=== PATIENT | male | born 1970 | race Caucasian/White ===

== ENCOUNTER → 2019-03-12 13:25 | Outpatient (CLI) | payer BC, SELFPAY | PROVIDERS: PCP Emergency Medicine; Visit Provider Physician Assistant | DX: R07.9 Chest pain, unspecified (principal); R00.0 Tachycardia, unspecified; R06.00 Dyspnea, unspecified; K21.9 Gastro-esophageal reflux disease without esophagitis; F10.10 Alcohol abuse, uncomplicated; F17.200 Nicotine dependence, unspecified, uncomplicated; Z82.49 Family history of ischemic heart disease and other diseases of the circulatory system; Z87.898 Personal history of other specified conditions | CPT/HCPCS: 93017 ==

== ENCOUNTER → 2019-03-22 12:57 | Outpatient (CLI) | payer BC, SELFPAY ==
[2019-03-22 13:00] LABS: MANUAL DIFFERENTIAL MANUAL DIFFERENTIAL (MANUAL DIFF)
[2019-03-22 13:38] LABS: Basophils % 0.6 % (0.1-2.0); Eosinophils # 0.2 K/mm3 (0.0-0.4); Eosinophils % 2.2 % (0.1-12.0); Hematocrit 46.1 % (42.0-52.0); Hemoglobin 15.2 g/dL (14.1-18.0); Lymphocytes # 1.5 K/mm3 (0.7-4.5); Lymphocytes % 20.1 % (10-50); Mean Corpuscular HGB Conc 32.9 g/dL (31.8-35.4); Mean Corpuscular Hemoglobin 32.7 pg (27.0-31.2); Mean Corpuscular Volume 99.6 fl (80-94); Monocytes # 0.8 K/mm3 (0.1-1.0); Monocytes % 10.1 % (1.7-9.3); Neutrophils # 5.1 K/mm3 (1.8-7.8); Platelet Count 278 K/mm3 (142-424); Red Blood Count 4.63 M/mm3 (4.60-6.20); Red Cell Distribution Width 12.2 % (11.5-17.5); White Blood Count 7.5 K/mm3 (4.8-10.8)
[2019-03-22 14:31] LABS: Eosinophils % 1 % (0-3); Lymphocytes % 21 % (10-50); Monocytes % 9 % (2-9); Neutrophils % 68 % (42-76); Total Cells Counted 100
[2019-03-22 14:34] LABS: Platelet Estimate Normal; RBC Morphology Normal
[2019-03-22 16:34] LABS: Alanine Aminotransferase 61 U/L (12-78); Albumin Level 3.8 gm/dL (3.4-5.0); Alkaline Phosphatase 83 U/L (46-116); Anion Gap 15.3 mEq/L (5-15); Aspartate Amino Transferase 63 U/L (15-37); Bilirubin,Direct 0.1 mg/dL (0.0-0.2); Bilirubin,Indirect 0.3 mg/dL (0.0-0.9); Bilirubin,Total 0.4 mg/dL (0.2-1.0); Blood Urea Nitrogen 6 mg/dL (7-18); Calcium 8.8 mg/dL (8.5-10.1); Carbon Dioxide 25 mmol/L (21.0-32.0); Chloride 97 mmol/L (98-107); Chol/HDL Ratio 4.3 (1-3.5); Cholesterol 264 mg/dL (140-200); Creatinine,Serum 0.81 mg/dL (0.70-1.30); Estimated Glomerular Filt Rate 103 ml/min (>60); Free Thyroxine Index 1.4 ug/dL (5.93-13.13); GFR (African American) 124 ML/MIN (>60); Glucose 80 mg/dL (74-106); HDL Cholesterol 62 mg/dL (27-67); LDL Cholesterol 174 mg/dL (0-130); Potassium 4.3 mmoL/L (3.5-5.1); Sodium 133 mmol/L (136-145); Thyroid Stimulating Hormone 5.85 uIU/ml (0.358-3.740); Total Protein,Serum 7.9 gm/dL (6.4-8.2); Triglycerides 141 mg/dL (30-200); Triiodothryronine (T3) Uptake 34 % (31-39); VLDL Cholesterol 28 mg/dL (0-40)
== END ==
PROVIDERS: Visit Provider Physician Assistant
DX: R06.00 Dyspnea, unspecified (principal); R07.9 Chest pain, unspecified; F10.10 Alcohol abuse, uncomplicated; R00.0 Tachycardia, unspecified; Z82.49 Family history of ischemic heart disease and other diseases of the circulatory system
CPT/HCPCS: 36415; 80048; 80061; 80076; 84436; 84443; 84479; 85007; 85014; 85018; 85048; 85049

== ENCOUNTER → 2019-04-13 06:30 | Outpatient (CLI) | payer BC, SELFPAY ==
--- NOTE | 2019-04-13 06:31 | NM_ITS ---
CARDIOLITE SPECT MYOCARDIAL PERFUSION LEXISCAN, REST AND STRESS: [facility] REVIEW QGS EF AND WALL MOTION EVALUATION: QPS - PERFUSION EVALUATION HISTORY: C.P., SOB DOSE: 10.52 mCi technetium 99m mibi intravenously at rest followed by 29.3 mCi technetium 99m mibi following the intravenous ministration of 0.4 mg of Lexiscan. Resting blood pressure is 153/95. Stress blood pressure 176/98. FINDINGS: Ejection fraction is calculated to be 68%. Uniform myocardial activity at both stress and rest IMPRESSION: No scintigraphic evidence of Lexiscan as myocardial ischemia with normal ejection fraction normal wall motion
--- NOTE | 2019-04-13 06:31 | CA_ITS ---
PROCEDURE: 2-D M-mode and color Doppler study INDICATIONS FOR THE TEST: Chest pain X COPD Heart Murmur Tobacco SmokingX Palpitations Fatigue Syncope Edema Hypertension Diabetes Mellitus Rheumatic Fever SOBXDOEXObesity Hyperlipidemia Family History HD Additional History ETOH ABUSE,HX OF DRUG ABUSE PATIENT INFORMATION HEIGHT: 72 WEIGHT:211 GENDER: Male B/P:129/89 2-D/M-MODE INTERPRETATION: 2-D MEASUREMENTS OBSERVED VALUES IN CMS Right Ventricular Dimension (RVDd) 2.6 Interventricular Septum (Thickness)(IVsd) 1.1 Left Ventricular Internal Dimensions(LVIDd) 4.8 Left Ventricular Posterior Wall (Thickness)(LVPWd) 1.2 Aortic Root 3.0 Aortic Cusp Separation 2.2 Left Atrial Dimensions (LAD) 3.6 2D 1. Left atrium is qualitatively mildly enlarged, left ventricle is normal size, mild concentric left ventricular hypertrophy, visually estimated ejection fraction of 55% with no regional wall motion abnormality. 2. The right atrium and right ventricle are normal size and contractility. 3. The aortic, mitral and tricuspid valvular grossly normal. 4. The pulmonic valve is poorly present. 5. No significant pericardial effusion noted. DOPPLER INTERROGATION: Doppler interrogation of the aortic, mitral and tricuspid valvular presence of mild mitral and tricuspid regurgitation, tricuspid regurgitation jet velocity is inadequate for calculation of the right ventricular systolic pressure, grade 1 diastolic dysfunction seen without tissue Doppler evidence of raised left atrial pressure. CONCLUSION: 1. The left atrium, normal left ventricular size, mild concentric left ventricular hypertrophy, visually estimated ejection fraction 55% with no regional wall motion abnormality. Grade 1 diastolic dysfunction seen without tissue Doppler evidence of raised left atrial pressure. 2. Mild mitral and tricuspid regurgitation 3. No significant pericardial effusion noted.
== END ==
PROVIDERS: PCP Emergency Medicine; Visit Provider Internal Medicine Cardiovascular Disease
DX: R06.00 Dyspnea, unspecified (principal); R07.9 Chest pain, unspecified
CPT/HCPCS: 78452; 93017; 93306; A9502; J2785

== ENCOUNTER → 2019-06-22 09:24 | Outpatient (CLI) | payer BC, SELFPAY ==
[2019-06-22 10:39] LABS: Basophils % 0.7 % (0.1-2.0); Eosinophils # 0.1 K/mm3 (0.0-0.4); Eosinophils % 2.4 % (0.1-12.0); Hematocrit 46.6 % (42.0-52.0); Hemoglobin 14.6 g/dL (14.1-18.0); Lymphocytes # 2.3 K/mm3 (0.7-4.5); Lymphocytes % 38.5 % (10-50); Mean Corpuscular HGB Conc 31.3 g/dL (31.8-35.4); Mean Corpuscular Hemoglobin 30.5 pg (27.0-31.2); Mean Corpuscular Volume 97.5 fl (80-94); Monocytes # 0.7 K/mm3 (0.1-1.0); Neutrophils # 2.8 K/mm3 (1.8-7.8); Neutrophils % 47.4 % (37.0-80.0); Platelet Count 277 K/mm3 (142-424); Red Blood Count 4.77 M/mm3 (4.60-6.20); Red Cell Distribution Width 12.6 % (11.5-17.5); White Blood Count 5.9 K/mm3 (4.8-10.8)
[2019-06-22 11:01] LABS: Alanine Aminotransferase 124 U/L (12-78); Albumin Level 3.6 gm/dL (3.4-5.0); Albumin/Globulin Ratio 0.9 (1.1-1.8); Alkaline Phosphatase 91 U/L (46-116); Anion Gap 14.6 mEq/L (5-15); Bilirubin,Total 0.4 mg/dL (0.2-1.0); Blood Urea Nitrogen 4 mg/dL (7-18); Calcium 9.2 mg/dL (8.5-10.1); Carbon Dioxide 27 mmol/L (21.0-32.0); Chloride 98 mmol/L (98-107); Chol/HDL Ratio 2.9 (1-3.5); Cholesterol 207 mg/dL (140-200); Creatinine,Serum 0.67 mg/dL (0.70-1.30); Estimated Glomerular Filt Rate 128 ml/min (>60); GFR (African American) 155 ML/MIN (>60); Glucose 86 mg/dL (74-106); HDL Cholesterol 71 mg/dL (27-67); LDL Cholesterol 106 mg/dL (0-130); Sodium 135 mmol/L (136-145); T4 (Thyroxine) 6.4 ug/dl (4.7-13.3); Thyroid Stimulating Hormone 4.52 uIU/ml (0.358-3.740); Total Protein,Serum 7.6 gm/dL (6.4-8.2); Triglycerides 151 mg/dL (30-200); VLDL Cholesterol 30 mg/dL (0-40)
[2019-06-22 11:05] LABS: Aspartate Amino Transferase 140 U/L (15-37); Potassium 4.6 mmoL/L (3.5-5.1)
== END ==
PROVIDERS: Visit Provider Nurse Practitioner Family
DX: R00.0 Tachycardia, unspecified (principal); E78.5 Hyperlipidemia, unspecified
CPT/HCPCS: 36415; 80053; 80061; 84436; 84443; 85025

== ENCOUNTER → 2019-08-03 10:46 | Outpatient (CLI) | payer BC, SELFPAY ==
[2019-08-04 08:12] LABS: Hep A Ab, IgM Negative (Negative); Hepatitis B Core Antibody IgM Negative (Negative); Hepatitis B Surface Antigen Negative (Negative)
[2019-08-06 14:23] LABS: Hepatitis C Antibody <0.1 s/co ratio (0.0-0.9)
== END ==
PROVIDERS: Visit Provider Nurse Practitioner Family
DX: R79.89 Other specified abnormal findings of blood chemistry (principal); R94.5 Abnormal results of liver function studies
CPT/HCPCS: 36415; 80074; 84443

== ENCOUNTER → 2021-08-27 09:41 | Outpatient (CLI) | payer BC, SELFPAY ==
[2021-08-27 10:13] LABS: Basophils % 0.7 % (0.1-2.0); Eosinophils # 0.3 K/mm3 (0.0-0.4); Eosinophils % 5.2 % (0.1-12.0); Hematocrit 44.9 % (42.0-52.0); Hemoglobin 14.4 g/dL (14.1-18.0); Lymphocytes # 1.5 K/mm3 (0.7-4.5); Lymphocytes % 28.2 % (10-50); Mean Corpuscular HGB Conc 32.1 g/dL (31.8-35.4); Mean Corpuscular Hemoglobin 33.5 pg (27.0-31.2); Mean Corpuscular Volume 104.2 fl (80-94); Mean Platelet Volume 8.6 fl (7.4-10.4); Monocytes # 0.4 K/mm3 (0.1-1.0); Monocytes % 7.1 % (1.7-9.3); Neutrophils # 3.1 K/mm3 (1.8-7.8); Neutrophils % 58.8 % (37.0-80.0); Platelet Count 280 K/mm3 (142-424); Red Blood Count 4.31 M/mm3 (4.60-6.20); Red Cell Distribution Width 12.5 % (11.5-17.5); White Blood Count 5.2 K/mm3 (4.8-10.8)
[2021-08-27 10:35] LABS: Alanine Aminotransferase 74 U/L (12-78); Albumin Level 4.5 g/dl (3.5-5.0); Albumin/Globulin Ratio 1.3 (1.1-1.8); Alkaline Phosphatase 85 U/L (38-126); Anion Gap 13.6 mEq/L (5-15); Aspartate Amino Transferase 189 U/L (17-59); Bilirubin,Total 0.9 mg/dl (0.2-1.3); Calcium 9.6 mg/dl (8.4-10.2); Carbon Dioxide 25 mmol/L (22.0-30.0); Chloride 100 mmol/L (98-107); Chol/HDL Ratio 2.3 (1-3.5); Cholesterol 216 mg/dl (140-200); Estimated Glomerular Filt Rate 144 ml/min (>60); GFR (African American) 174 ML/MIN (>60); Globulin 3.4 g/dL (1.3-3.2); Glucose 93 mg/dl (74-100); HDL Cholesterol 92 mg/dl (40-60); Potassium 4.6 mmoL/L (3.5-5.1); Sodium 134 mmol/L (136-145); Total Protein,Serum 7.9 g/dl (6.3-8.2); Triglycerides 102 mg/dl (30-150); VLDL Cholesterol 20 mg/dL (0-40)
[2021-08-27 10:40] LABS: Blood Urea Nitrogen < 2 mg/dl (9-20)
[2021-08-27 10:47] LABS: Direct LDL Cholesterol 99.67 mg/dL (100-129)
[2021-08-27 10:53] LABS: T4 (Thyroxine) 7.5 ug/dl (5.53-11.0)
[2021-08-27 11:07] LABS: Prostate Specific Ag Screen 0.7 ng/ml (0.0-4.0); Thyroid Stimulating Hormone 4.25 uIU/mL (0.465-4.68)
== END ==
PROVIDERS: Visit Provider Nurse Practitioner Family
DX: I10 Essential (primary) hypertension (principal); E78.5 Hyperlipidemia, unspecified; E03.9 Hypothyroidism, unspecified; F17.210 Nicotine dependence, cigarettes, uncomplicated; Z12.5 Encounter for screening for malignant neoplasm of prostate
CPT/HCPCS: 36415; 80053; 80061; 84436; 84443; 85025; 86900; 86901; G0103

== ENCOUNTER 2022-12-23 02:00 | Inpatient (IN) | payer BC, SELFPAY ==
[2022-12-23] VITALS (29 sets, daily range): BP systolic 114–160; BP diastolic 69–107; PULSE 73–128; RESP 19–49; TEMP 36.7–38.6; O2SAT 94–98; BMI 27.1; BMI 29.3
--- NOTE | 2022-12-23 02:08 | CT_ITS ---
PROCEDURE INFORMATION: Exam: CT Head Without Contrast Exam date and time: 12/23/2022 3:23 AM Age: 52 years old Clinical indication: Injury or trauma; Fall TECHNIQUE: Imaging protocol: Computed tomography of the head without contrast. Radiation optimization: All CT scans at this facility use at least one of these dose optimization techniques: automated exposure control; mA and/or kV adjustment per patient size (includes targeted exams where dose is matched to clinical indication); or iterative reconstruction. Other protocol: This patient has received 2 known CTs and 0 known cardiac nuclear medicine studies in the 12 months prior to the current study. COMPARISON: No relevant prior studies available. FINDINGS: Brain: There is mild enlargement of the cortical sulci compatible with compatible with involutional changes . No evidence of mass effect or midline shift. Patchy areas of hypodensity without mass-effect are noted in the periventricular white matter compatible with chronic microvascular ischemic disease. The chavez/white matter interfaces are preserved. There are no extra-axial fluid collections.The basal cisterns are patent. Cerebral ventricles: No hydrocephalus. Paranasal sinuses: Well aerated. No fluid levels. Mastoid air cells: Visualized mastoid air cells are well aerated. Bones/joints: No acute fracture. Soft tissues: Unremarkable. IMPRESSION: 1. No evidence of intracranial hemorrhage, mass effect, midline shift or hydrocephalus. 2. Involutional changes. 3. Findings compatible with chronic microvascular ischemic disease.
--- NOTE | 2022-12-23 02:08 | CT_ITS ---
PROCEDURE INFORMATION: Exam: CT Cervical Spine Without Contrast Exam date and time: 12/23/2022 3:23 AM Age: 52 years old Clinical indication: Injury or trauma; Fall; Blunt trauma TECHNIQUE: Imaging protocol: Computed tomography of the cervical spine without contrast. Radiation optimization: All CT scans at this facility use at least one of these dose optimization techniques: automated exposure control; mA and/or kV adjustment per patient size (includes targeted exams where dose is matched to clinical indication); or iterative reconstruction. Other protocol: This patient has received 2 known CTs and 0 known cardiac nuclear medicine studies in the 12 months prior to the current study. COMPARISON: No relevant prior studies available. FINDINGS: Bones/joints: No acute fracture. Normal alignment. No significant disc bulge or herniation. No severe spinal canal stenosis. No significant neural foraminal narrowing. Lungs: Lung apices are normal. Soft tissues: Unremarkable. IMPRESSION: No acute fractures or listhesis.
--- NOTE | 2022-12-23 02:08 | XR_ITS ---
PROCEDURE INFORMATION: Exam: XR Pelvis Exam date and time: 12/23/2022 3:28 AM Age: 52 years old Clinical indication: Injury or trauma; Fall; Blunt trauma (contusions or hematomas); Does not apply; Pelvic region TECHNIQUE: Imaging protocol: Radiologic exam of the pelvis. Views: 1 or 2 view. COMPARISON: No relevant prior studies available. FINDINGS: Bones/joints: Intact. No acute fractures or dislocations identified. There are no lytic or blastic lesions. The joints are preserved. Soft tissues: IV contrast within the right and left ureters IMPRESSION: No acute fracture or dislocation..
--- NOTE | 2022-12-23 02:08 | CT_ITS ---
PROCEDURE INFORMATION: Exam: CT Abdomen And Pelvis With Contrast Exam date and time: 12/23/2022 3:29 AM Age: 52 years old Clinical indication: Nausea and vomiting; Additional info: Vomitting TECHNIQUE: Imaging protocol: Computed tomography of the abdomen and pelvis with contrast. Radiation optimization: All CT scans at this facility use at least one of these dose optimization techniques: automated exposure control; mA and/or kV adjustment per patient size (includes targeted exams where dose is matched to clinical indication); or iterative reconstruction. Contrast material: ISOVUE; Contrast volume: 75 ml; Contrast route: IV; Other protocol: This patient has received 2 known CTs and 0 known cardiac nuclear medicine studies in the 12 months prior to the current study. COMPARISON: CR XR PELVIS 1-2V 12/23/2022 3:28 AM FINDINGS: Lungs: Granuloma at the right lung base. Heart: There is mild enlargement of the heart. Coronary arteries: There are coronary artery calcifications. Liver: Normal. No mass. Gallbladder and bile ducts: Normal. No calcified stones. No ductal dilation. Pancreas: Slightly indistinct appearance of portions of the pancreas with questionable trace peripancreatic fat stranding near the distal body and tail of the pancreas. Spleen: Normal. No splenomegaly. Adrenal glands: Normal. No mass. Kidneys and ureters: Normal. No hydronephrosis. Stomach and bowel: Fluid in the proximal colon. No wall thickening or obstruction. Appendix: The appendix is not seen. Intraperitoneal space: Unremarkable. No free air. No significant fluid collection. Vasculature: Unremarkable. No abdominal aortic aneurysm. Lymph nodes: Unremarkable. No enlarged lymph nodes. Urinary bladder: Unremarkable as visualized. Reproductive: Unremarkable as visualized. Bones/joints: Degenerative changes of the spine. Soft tissues: Unremarkable. IMPRESSION: 1. Findings suggesting subtle acute pancreatitis. Recommend clinical correlation and follow up. 2. Coronary artery disease.
--- NOTE | 2022-12-23 02:08 | XR_ITS ---
PROCEDURE INFORMATION: Exam: XR Chest Exam date and time: 12/23/2022 3:29 AM Age: 52 years old Clinical indication: Injury or trauma; Fall; Blunt trauma (contusions or hematomas) TECHNIQUE: Imaging protocol: Radiologic exam of the chest. Views: 1 view. COMPARISON: CT CERVICAL SPINE WO CON 12/23/2022 3:23 AM FINDINGS: Lungs: Well aerated with no evidence of consolidations, interstitial patterns or pulmonary nodules. Pleural spaces: No evidence of effusions or pneumothorax. Heart/Mediastinum: The cardiomediastinal silhouette is normal in size and configuration. There is no evidence of cardiomegaly. Bones/joints: Intact. IMPRESSION: 1. No acute discernible infarction identified. 2. Patchy areas of ground-glass opacity with a peripheral predominance scattered throughout both lungs compatible with multifocal pneumonia.
--- NOTE | 2022-12-23 02:25 | HMH.EDWEAK ---
Discharge Plan Disposition Patient Disposition: Admitted As Inpatient Clinical Impressions Clinical Impression: CAP (community acquired pneumonia), SIRS (systemic inflammatory response syndrome), Acute hyponatremia, Acute hypokalemia, Elevated liver enzymes, CAD (coronary artery disease) Discharge ED Provider: Manpreet (ED)Usman HPI General Chief complaint: Weakness Stated complaint: Weakness Time Seen by Provider: 12/23/22 02:25 Mode of Arrival: EMS Source of Information: Patient, Relative, EMS and Medical Record Limitations: No Limitations Description of Symptoms (Recalled from ER Triage Doc. by RN): pt states been having n/v/d sincec last tuesday. tonight pt states fell out of bed History of Present Illness HPI Narrative: pt has not felt well over the last few days - pt with vomiting and at times nonbldy diarrhea and has weakness and tonight fell oob and unable to stand and brought in by ems - pt denied chest pain and was noted to have fever per ems MD Complaint: generalized weakness Onset (ago): day(s) Duration: constant Location: generalized Migration: none Severity: moderate Context: recent illness Associated symptoms: nausea/vomiting Related Data Home Medications Medication Instructions Recorded Confirmed ibuprofen 200 mg capsule 200 mg PO Q6H PRN 03/02/19 10/02/21 famotidine 10 mg tablet (Pepcid AC) 10 mg PO DAILY PRN 11/17/20 10/02/21 Previous Rx's Medication Instructions Recorded atorvastatin 20 mg tablet 20 mg PO DAILY #90 tabs 01/06/22 metoprolol succinate 50 mg 50 mg PO DAILY #90 tabs 01/06/22 tablet,extended release 24 hr levothyroxine 50 mcg tablet See Rx Instructions .Route 10/15/22 .COMPLEX #90 tabs Allergies Allergy/AdvReac Type Severity Reaction Status Date / Time penicillin G Allergy Severe Anaphylaxis Verified 10/02/21 14:24 Fish Containing Products Allergy Mild Verified 10/02/21 14:24 PFSH PFS Disclaimer: The information contained in this section may have been updated after the patient was seen, as this information can be updated by other users. Medical History (Updated 12/23/22 @ 07:46 by Usman Case (ED), ) Abnormal cardiovascular stress test Dyspnea ETOH abuse Family history of ischemic heart disease before age 50 History of mixed drug abuse Tachycardia Tobacco dependence syndrome Surgical History (Updated 02/09/23 @ 05:28 by Clayton Palencia DNP) Hx of appendectomy Social History Smoking Status: Current every day smoker tobacco type: cigarettes packs per day: 2 alcohol intake: current substance use type: former substance user current occupational status: employed Travel in the last 8 weeks: None ROS Obtained: Yes unobtainable due to mental status Physical Exam General General appearance: lethargic Head Head exam: normocephalic Eye Eye exam: Present PERRL and EOMI; Absent scleral icterus ENT ENT exam: Present mucous membranes dry Neck Neck exam: Present trachea midline; Absent meningismus Respiratory Respiratory exam: Present other (dec bs bilat ); Absent respiratory distress Cardiovascular Cardiovascular exam: Present tachycardia and systolic murmur Abdominal Exam Abdominal exam: Present soft; Absent tenderness, guarding or rebound Extremities Exam Extremities exam: Absent joint swelling or calf tenderness Neurological Exam Neurological exam: Present CN II-XII intact and other (no focal changes and has tremor bilat w/o focal changes and no posturing ) Skin Skin exam: Absent rash Medical Decision Making Medical Records Medical records reviewed: Yes I reviewed the patient's medical records. Leroy Inquiry Pt receiving controlled substance: No Vital Signs: 12/23/22 02:00 12/23/22 02:30 12/23/22 03:30 Temperature 101.4 F H Temperature Source Oral Pulse Rate 124 H 106 H Pulse Rate [Right] 128 H Respiratory Rate 28 H Blood Pressure 145/92 H 160/88 H Blood Pressure [Right Arm] 145/92 H Blood P
[2022-12-23 02:30] LABS: Basophils % 0.1 % (0.1-2.0); Eosinophils % 0.1 % (0.1-12.0); Hematocrit 38.4 % (42.0-52.0); Hemoglobin 13.1 g/dL (14.1-18.0); Lymphocytes % 5.4 % (10-50); Mean Corpuscular Hemoglobin 32.1 pg (27.0-31.2); Mean Corpuscular Volume 94.6 fl (80-94); Mean Platelet Volume 8.3 fl (7.4-10.4); Monocytes # 1.2 K/mm3 (0.1-1.0); Monocytes % 6.2 % (1.7-9.3); Neutrophils # 16.2 K/mm3 (1.8-7.8); Neutrophils % 88.1 % (37.0-80.0); Platelet Count 257 K/mm3 (142-424); Red Blood Count 4.06 M/mm3 (4.60-6.20); Red Cell Distribution Width 12.1 % (11.5-17.5); White Blood Count 18.4 K/mm3 (4.8-10.8)
[2022-12-23 02:33] LABS: Alanine Aminotransferase 49 U/L (12-78); Albumin Level 4.8 g/dl (3.5-5.0); Albumin/Globulin Ratio 1.5 (1.1-1.8); Alkaline Phosphatase 102 U/L (38-126); Anion Gap 18.2 mEq/L (5-15); Aspartate Amino Transferase 173 U/L (17-59); Bilirubin,Total 1.7 mg/dl (0.2-1.3); Blood Urea Nitrogen 11 mg/dl (9-20); Calcium 8.6 mg/dl (8.4-10.2); Carbon Dioxide 20 mmol/L (22.0-30.0); Creatinine Clearance Estimated 113 mL/min (50-200); Estimated Glomerular Filt Rate 79 ml/min (>60); GFR (African American) 96 ML/MIN (>60); Globulin 3.3 g/dL (1.3-3.2); Glucose 82 mg/dl (74-100); Lactic Acid 1.9 mmol/L (0.7-2.1); MANUAL DIFFERENTIAL MANUAL DIFFERENTIAL (MANUAL DIFF); Potassium 3.2 mmoL/L (3.5-5.1); Total Protein,Serum 8.1 g/dl (6.3-8.2)
[2022-12-23 02:38] LABS: C-Reactive Protein 159.9 mg/L (0-4)
[2022-12-23 02:41] LABS: Chloride 75 mmol/L (98-107); Sodium 110 mmol/L (136-145)
--- NOTE | 2022-12-23 02:42 | PC.NURSE ---
notified rhonda of sodium 110 and 75 chloride
[2022-12-23 02:45] LABS: Coronavirus 19, PCR Not Detected (NotDetected); Influenza A, PCR Not Detected (NotDetected); Influenza B, PCR Not Detected (NotDetected)
[2022-12-23 03:09] LABS: Lymphocytes % 10 % (10-50); Neutrophils % 90 % (42-76); Total Cells Counted 100
[2022-12-23 03:10] LABS: Platelet Estimate Normal
[2022-12-23 03:11] LABS: Stomatocytes 1+
[2022-12-23 03:23] LABS: Alanine Aminotransferase 50 U/L (12-78); Albumin Level 4.2 g/dl (3.5-5.0); Albumin/Globulin Ratio 1.4 (1.1-1.8); Alkaline Phosphatase 86 U/L (38-126); Anion Gap 18.1 mEq/L (5-15); Aspartate Amino Transferase 217 U/L (17-59); Bilirubin,Total 1.7 mg/dl (0.2-1.3); Blood Urea Nitrogen 12 mg/dl (9-20); Calcium 7.7 mg/dl (8.4-10.2); Carbon Dioxide 18 mmol/L (22.0-30.0); Chloride 78 mmol/L (98-107); Creatinine Clearance Estimated 113 mL/min (50-200); Estimated Glomerular Filt Rate 79 ml/min (>60); GFR (African American) 96 ML/MIN (>60); Globulin 2.9 g/dL (1.3-3.2); Glucose 75 mg/dl (74-100); Potassium 3.1 mmoL/L (3.5-5.1); Total Protein,Serum 7.1 g/dl (6.3-8.2)
--- NOTE | 2022-12-23 04:03 | PC.NURSE ---
Pt continues to rest in bed. Family at BS.
[2022-12-23 04:11] LABS: Sodium 111 mmol/L (136-145)
[2022-12-23 04:40] LABS: Erythrocyte Sedimentation Rate 48 mm/hr (0-15)
--- NOTE | 2022-12-23 05:03 | PC.NURSE ---
SOMMER FROM NIGHT WATCH CALLED FOR VANC DOSING
--- NOTE | 2022-12-23 05:17 | EXP.HP ---
History of Present Illness *Admission Date: 12/23/22 *Reason for visit:: Fevers, chills, tremors, vomiting, cough *History of present illness: Mr. Perez is a 52-year-old male with a past medical history of Tachycardia, Hypothyroidism and Hyperlipidemia. He presents to [facility] due to a 4-day history of non-stop vomiting, cough, weakness, shaking and freezing. is at bedside who provides information for the history and physical. Per the patient has been ill since 12/19/2022. She reports that he has been unable to take any of his medications due to constant vomiting. She reports that he drinks approximately 18 beers every day. She denies a history of DT's, but she reports that she has never seen him not drink alcohol. She reports that he has attempted to continue drinking alcohol but has continued to vomit. She reports that he has progressively worsened, so she brought him into the ER for evaluation. In the ER, he has electrolyte disturbances: Sodium level is 110, K is 3.2. WBC is 18.4. CT of the abdomen and pelvis is concerning for Pancreatitis, CXray shows multi-focal consolidations. He was noted to have fallen during his acute illness and CT of the head and neck shows no acute findings. The patient meets criteria for Sepsis on admission with WBC 18.4, Temperature 101.4, Imaging concerning for Multifocal pneumonia, HR 128 and RR 49. The patient is tremulous on exam, has been slightly confused per family. There is concern for acute alcohol withdrawal. The patient has been placed on CIWA protocol. The patient is admitted with initial impression: Sepsis, Pneumonia, Acute Pancreatitis, Hyponatremia, Hypokalemia, Acute Alcohol Withdrawal. The plan of care was discussed with and son and patient at bedside. All verbalized understanding and agreement with the plan of care. [facility] Disclaimer: The information contained in this section may have been updated after the patient was seen, as this information can be updated by other users. Medical History Abnormal cardiovascular stress test Dyspnea ETOH abuse Family history of ischemic heart disease before age 50 History of mixed drug abuse Tachycardia Tobacco dependence syndrome Surgical History Hx of appendectomy Social History (Updated 12/23/22 @ 10:34 by Isela Schultz RN) Smoking Status: Current every day smoker tobacco type: cigarettes packs per day: 2 alcohol intake: current substance use type: former substance user current occupational status: employed Travel in the last 8 weeks: None Review of Systems Review of Systems Review of systems:: pertinent systems reviewed and negative unless documented below Constitutional Constitutional: Reports body ache(s), Reports chills, Reports fatigue, Reports fever(s), Reports lethargy and Reports malaise Eyes Eyes: Reports system reviewed and no additional complaints, except as documented ENT Ears, Nose, Mouth, and Throat: Reports system reviewed and no additional complaints, except as documented and Reports dizziness *Cardiovascular Cardiovascular: Reports system reviewed and no additional complaints, except as documented *Respiratory Respiratory: Reports chest congestion and Reports cough *Gastrointestinal Gastrointestinal: Reports vomiting *Genitourinary Genitourinary: Reports system reviewed and no additional complaints, except as documented *Musculoskeletal Musculoskeletal: Reports system reviewed and no additional complaints, except as documented Integumentary/Breasts Skin/Breast: Reports system reviewed and no additional complaints, except as documented *Neurologic Neurologic: Reports confusion and Reports dizziness Psychiatric Psychiatric: Reports confusion Endocrine Endocrine: Reports fatigue Hematologic/Lymphatic Hematologic/Lymphatic: Reports system reviewed and no addition
[2022-12-23 05:23] LABS: Procalcitonin 1.85 ng/mL (0.0-2.0)
[2022-12-23 05:33] LABS: Anion Gap 13.6 mEq/L (5-15); Blood Urea Nitrogen 12 mg/dl (9-20); Calcium 7.9 mg/dl (8.4-10.2); Carbon Dioxide 20 mmol/L (22.0-30.0); Chloride 79 mmol/L (98-107); Creatinine Clearance Estimated 126 mL/min (50-200); Estimated Glomerular Filt Rate 89 ml/min (>60); GFR (African American) 108 ML/MIN (>60); Glucose 108 mg/dl (74-100)
[2022-12-23 05:45] LABS: Potassium 2.6 mmoL/L (3.5-5.1); Sodium 110 mmol/L (136-145)
--- NOTE | 2022-12-23 06:53 | PC.NURSE ---
Pt readjusted in bed for comfort
--- NOTE | 2022-12-23 07:55 | HMH.PHAINT1 ---
Pharmacy Intervention Comments: Medication reconciliation completed utilizing external fill history
[2022-12-23 08:05] LABS: Chloride 83 mmol/L (98-107)
[2022-12-23 08:06] LABS: Potassium 3.2 mmoL/L (3.5-5.1)
[2022-12-23 08:09] LABS: Anion Gap 13.2 mEq/L (5-15); Blood Urea Nitrogen 11 mg/dl (9-20); Calcium 7.7 mg/dl (8.4-10.2); Carbon Dioxide 21 mmol/L (22.0-30.0); Creatinine Clearance Estimated 189 mL/min (50-200); Estimated Glomerular Filt Rate 143 ml/min (>60); GFR (African American) 173 ML/MIN (>60); Glucose 86 mg/dl (74-100)
[2022-12-23 08:12] LABS: Sodium 114 mmol/L (136-145)
--- NOTE | 2022-12-23 08:19 | PC.NURSE ---
Coretta from lab called critical on patient, Sodium 114, repeated and verified. Notified patient is admitted but boarding in ER and to notify Hospitalist.
--- NOTE | 2022-12-23 09:42 | PC.NURSE ---
Temperature rechecked per family request; 98.1 oral
--- NOTE | 2022-12-23 10:01 | EXP.PHA.CONS ---
Pharmacy Consult Date: 12/23/22 Time: 10:01 Referring provider: DR. AC Reason for Consult:: VANCOMYCIN DOSING Allergies Allergy/AdvReac Type Severity Reaction Status Date / Time penicillin G Allergy Severe Anaphylaxis Verified 10/02/21 14:24 Fish Containing Products Allergy Mild Verified 10/02/21 14:24 Home Medications Medication Instructions Recorded Confirmed Type atorvastatin 20 mg tablet 20 mg PO DAILY Cholesterol 12/23/22 12/23/22 History levothyroxine 50 mcg tablet 50 mcg PO DAILY thyroid 12/23/22 12/23/22 History metoprolol succinate 50 mg 50 mg PO DAILY High blood pressure 12/23/22 12/23/22 History tablet,extended release 24 hr New Prescriptions to Start Prescriptions: Height: 1.83 m Weight: 90.718 kg Laboratory Results:: Laboratory Results - last 24 hr 12/23/22 02:07: WBC 18.4 H, RBC 4.06 L, Hgb 13.1 L, Hct 38.4 L, MCV 94.6 H, MCH 32.1 H, MCHC 34.0, RDW 12.1, Plt Count 257, MPV 8.3, Neut % (Auto) 88.1 H, Lymph % (Auto) 5.4 L, Mchenry % (Auto) 6.2, Eos % (Auto) 0.1, Baso % (Auto) 0.1, Neut # (Auto) 16.2 H, Lymph # (Auto) 1.0, Mchenry # (Auto) 1.2 H, Eos # (Auto) 0.0, Baso # (Auto) 0.0, Total Counted 100, Neutrophils % (Manual) 90 H, Lymphocytes % (Manual) 10, Platelet Estimate Normal, Stomatocytes 1+, ESR 48 H 12/23/22 02:07: Sodium 110 L*, Potassium 3.2 L, Chloride 75 L, Carbon Dioxide 20 L, Anion Gap 18.2 H, BUN 11, Creatinine 1.00, Estimated Creat Clear 113, Estimated GFR 79, Est GFR ( Amer) 96, Glucose 82, Calcium 8.6, Total Bilirubin 1.7 H, AST 173 H, ALT 49, Alkaline Phosphatase 102, C-Reactive Protein 159.9 H, Total Protein 8.1, Albumin 4.8, Globulin 3.3 H, Albumin/Globulin Ratio 1.5 12/23/22 02:07: Lactate 1.9 12/23/22 02:34: SARS-CoV-2 (PCR) Not detected, Influenza A Untype (PCR) Not detected, Influenza Type B (PCR) Not detected 12/23/22 03:10: Sodium 111 L*, Potassium 3.1 L, Chloride 78 L, Carbon Dioxide 18 L, Anion Gap 18.1 H, BUN 12, Creatinine 1.00, Estimated Creat Clear 113, Estimated GFR 79, Est GFR ( Amer) 96, Glucose 75, Calcium 7.7 L, Total Bilirubin 1.7 H, AST 217 H D, ALT 50, Alkaline Phosphatase 86, Total Protein 7.1, Albumin 4.2 D, Globulin 2.9, Albumin/Globulin Ratio 1.4 12/23/22 03:10: Procalcitonin 1.85 12/23/22 05:16: Sodium 110 L*, Potassium 2.6 L*, Chloride 79 L, Carbon Dioxide 20 L, Anion Gap 13.6, BUN 12, Creatinine 0.90, Estimated Creat Clear 126, Estimated GFR 89, Est GFR ( Amer) 108, Glucose 108 H D, Calcium 7.9 L 12/23/22 05:16: Magnesium 2.0 12/23/22 07:45: Sodium 114 L*, Potassium 3.2 L D, Chloride 83 L, Carbon Dioxide 21 L, Anion Gap 13.2, BUN 11, Creatinine 0.60 L D, Estimated Creat Clear 189, Estimated GFR 143, Est GFR ( Amer) 173 D, Glucose 86 D, Calcium 7.7 L Medical History: Medical History (Updated 12/23/22 @ 07:46 by Usman Case (ED)MD) Abnormal cardiovascular stress test Dyspnea ETOH abuse Family history of ischemic heart disease before age 50 History of mixed drug abuse Tachycardia Tobacco dependence syndrome Assessment and Plan Assessment and plan all Dx Assessment and Plan for all problems:: Pharmacokinetic dosing service Objective: Patient: Floor: Age: 52 yo Serum creatinine: 0.60 mg/dL Height: 72.0 Inches Weight (kg): 90.7 Assessment: IBW (kg): 77.60 Dosing wt(kg): 90.7 Estimated Creatinine clearance (ml/min): 130 Clearance limited to 130 ml/min to reduce risk of overdosing. CRCL method: Cockcroft and Gault using ibw(default). Drug selected: Vancomycin Loading dose (mg): Vd (liters): 68.0 (factor used: 0.75 L/kg) Rogelio (hr-1): 0.112 Half life (hrs): 6.19 CLvanco=?? 7.616 L/hr Recommended dose: 2000 mg Interval: 12 hrs Infusion time (hrs): 2.0 Predicted peak (mcg/mL): 35.6 Predicted trough (mcg/mL): 11.62 Total body weight is being used for vancomycin dosing.
--- NOTE | 2022-12-23 10:27 | PC.NURSE ---
Pt cleaned up and re-adjusted in the bed with assistance from RENATO Gutierrez. Family at BS. Call light within reach
--- NOTE | 2022-12-23 10:30 | PC.NURSE ---
Rounded on patient and mother at this time. Patient was sleeping peacefully at this time. I updated mother on bed status for the floor and advised we working on facilitating his admission as quickly as possible. Mother agreeable. Provided her with recliner chair and warm blankets at this time. There were no other needs and she was instructed on use of call-light.
[2022-12-23 11:02] LABS: Anion Gap 13.3 mEq/L (5-15); Blood Urea Nitrogen 11 mg/dl (9-20); Calcium 7.7 mg/dl (8.4-10.2); Carbon Dioxide 20 mmol/L (22.0-30.0); Chloride 85 mmol/L (98-107); Creatinine Clearance Estimated 189 mL/min (50-200); Estimated Glomerular Filt Rate 143 ml/min (>60); GFR (African American) 173 ML/MIN (>60); Glucose 89 mg/dl (74-100); Potassium 3.3 mmoL/L (3.5-5.1)
--- NOTE | 2022-12-23 11:13 | PC.NURSE ---
Rounded on pt. Resting comfortably in the bed at this time. Vitals cycling. No questions or concerns at this time.
[2022-12-23 11:15] LABS: Sodium 115 mmol/L (136-145)
--- NOTE | 2022-12-23 11:27 | PC.NURSE ---
spoke with hospitalist who states he wants his medication order to remain the same based on labs
--- NOTE | 2022-12-23 12:00 | PC.NURSE ---
Nini-care completed d/t incontinent episode of stool.
--- NOTE | 2022-12-23 12:25 | PC.NURSE ---
report called to hortencia rashid
--- NOTE | 2022-12-23 12:35 | PC.NURSE ---
Dr. Holt, Hospitalist at speaking with patient and patients family
--- NOTE | 2022-12-23 12:50 | PC.NURSE ---
pt ambulatory to restroom with assistance x 2 (sharita and bharathi), no complications
--- NOTE | 2022-12-23 12:56 | PC.NURSE ---
pt returned from restroom back to bed without complications. Assisted by Gui Aguiar and Israel Wu. Family at
[2022-12-23 17:40] LABS: Blood Urea Nitrogen 9 mg/dl (9-20); Calcium 7.5 mg/dl (8.4-10.2); Carbon Dioxide 22 mmol/L (22.0-30.0); Chloride 89 mmol/L (98-107); Creatinine Clearance Estimated 245 mL/min (50-200); Estimated Glomerular Filt Rate 176 ml/min (>60); GFR (African American) 213 ML/MIN (>60); Glucose 77 mg/dl (74-100); Sodium 119 mmol/L (136-145)
--- NOTE | 2022-12-23 18:35 | EXP.PN ---
Subjective *Date: 12/23/22 *Time: 18:35 Interval history: Date of service December 23, 2022 The patient reports that he is starting to feel better. His Elicia and mother at bedside and reports that he is improving. Nursing staff reports that he remains afebrile with stable vital signs and saturating appropriately on room air. We have reviewed and discussed his laboratory results. I have personally interpreted his laboratory results including a CBC with a leukocytoses white blood cell count 18,000, hemoglobin 13, hematocrit 38, platelet count 257. His procalcitonin is elevated. His sodium continues to improve and is currently 114. His lactic acid is negative. His potassium is 3.2. His magnesium is 2.0 BUN is 11 and creatinine 0.6. His AST to ALT ratio is greater than 2.5. Imaging of his abdomen has been personally reviewed and interpreted identifying pancreatitis on the CT. Exam Data for Last 24 hours Vital signs and Labs for Last 24 Hours: Temp Pulse Resp BP Pulse Ox 98.4 F 87 20 130/83 98 12/23/22 15:27 12/23/22 12:36 12/23/22 12:36 12/23/22 12:36 12/23/22 12:00 Laboratory Results - last 24 hr 12/23/22 02:07: WBC 18.4 H, RBC 4.06 L, Hgb 13.1 L, Hct 38.4 L, MCV 94.6 H, MCH 32.1 H, MCHC 34.0, RDW 12.1, Plt Count 257, MPV 8.3, Neut % (Auto) 88.1 H, Lymph % (Auto) 5.4 L, [place] % (Auto) 6.2, Eos % (Auto) 0.1, Baso % (Auto) 0.1, Neut # (Auto) 16.2 H, Lymph # (Auto) 1.0, [place] # (Auto) 1.2 H, Eos # (Auto) 0.0, Baso # (Auto) 0.0, Total Counted 100, Neutrophils % (Manual) 90 H, Lymphocytes % (Manual) 10, Platelet Estimate Normal, Stomatocytes 1+, ESR 48 H 12/23/22 02:07: Sodium 110 L*, Potassium 3.2 L, Chloride 75 L, Carbon Dioxide 20 L, Anion Gap 18.2 H, BUN 11, Creatinine 1.00, Estimated Creat Clear 113, Estimated GFR 79, Est GFR ( Amer) 96, Glucose 82, Calcium 8.6, Total Bilirubin 1.7 H, AST 173 H, ALT 49, Alkaline Phosphatase 102, C-Reactive Protein 159.9 H, Total Protein 8.1, Albumin 4.8, Globulin 3.3 H, Albumin/Globulin Ratio 1.5 12/23/22 02:07: Lactate 1.9 12/23/22 02:34: SARS-CoV-2 (PCR) Not detected, Influenza A Untype (PCR) Not detected, Influenza Type B (PCR) Not detected 12/23/22 03:10: Sodium 111 L*, Potassium 3.1 L, Chloride 78 L, Carbon Dioxide 18 L, Anion Gap 18.1 H, BUN 12, Creatinine 1.00, Estimated Creat Clear 113, Estimated GFR 79, Est GFR ( Amer) 96, Glucose 75, Calcium 7.7 L, Total Bilirubin 1.7 H, AST 217 H D, ALT 50, Alkaline Phosphatase 86, Total Protein 7.1, Albumin 4.2 D, Globulin 2.9, Albumin/Globulin Ratio 1.4 12/23/22 03:10: Procalcitonin 1.85 12/23/22 05:16: Sodium 110 L*, Potassium 2.6 L*, Chloride 79 L, Carbon Dioxide 20 L, Anion Gap 13.6, BUN 12, Creatinine 0.90, Estimated Creat Clear 126, Estimated GFR 89, Est GFR ( Amer) 108, Glucose 108 H D, Calcium 7.9 L 12/23/22 05:16: Magnesium 2.0 12/23/22 07:45: Sodium 114 L*, Potassium 3.2 L D, Chloride 83 L, Carbon Dioxide 21 L, Anion Gap 13.2, BUN 11, Creatinine 0.60 L D, Estimated Creat Clear 189, Estimated GFR 143, Est GFR ( Amer) 173 D, Glucose 86 D, Calcium 7.7 L 12/23/22 10:36: Sodium 115 L, Potassium 3.3 L, Chloride 85 L, Carbon Dioxide 20 L, Anion Gap 13.3, BUN 11, Creatinine 0.60 L, Estimated Creat Clear 189, Estimated GFR 143, Est GFR ( Amer) 173, Glucose 89, Calcium 7.7 L 12/23/22 17:16: Sodium 119 L, Potassium 3.0 L, Chloride 89 L, Carbon Dioxide 22, Anion Gap 11.0, BUN 9, Creatinine 0.50 L, Estimated Creat Clear 245, Estimated GFR 176, Est GFR ( Amer) 213 D, Glucose 77, Calcium 7.5 L I & O for Last 24 hours: Intake & Output 12/20/22 12/21/22 12/22/22 12/23/22 23:59 23:59 23:59 23:59 Output Total 0 / 0 Balance 0 / 0 Weight 98.146 kg Constitutional Constitutional: no acute distress, chronically ill appearing, cooperative and somnolent *Routine HEENT Exam Head: Present normocephalic Eye: Present EOMI and PERRL ENT: Present mucous membranes moist *Routine Neck Exam Neck: Present supple;
[2022-12-23 18:37] LABS: Lipase 185 U/L (23-300)
--- NOTE | 2022-12-23 19:41 | PC.NURSE ---
1142 critical lab value received from lab. k+ 3.0 na 119 results, name repeated and verified back. [address] Holt of pt critical lab value. k+ 3.0 NA 119 new orders, dc hypertonic solution, change ns to 75ml/hr
--- NOTE | 2022-12-23 19:47 | PC.NURSE ---
during assessment it was noted that pt has black dried secretions from nose and noted in [place] and mustache.
[2022-12-23 22:41] LABS: Blood Urea Nitrogen 7 mg/dl (9-20); Calcium 7.7 mg/dl (8.4-10.2); Carbon Dioxide 20 mmol/L (22.0-30.0); Chloride 94 mmol/L (98-107); Creatinine Clearance Estimated 245 mL/min (50-200); Estimated Glomerular Filt Rate 176 ml/min (>60); GFR (African American) 213 ML/MIN (>60); Glucose 74 mg/dl (74-100); Magnesium 2.1 mg/dl (1.6-2.3); Sodium 123 mmol/L (136-145)
[2022-12-24] VITALS (11 sets, daily range): BP systolic 111–165; BP diastolic 65–106; PULSE 86–101; RESP 16–24; TEMP 36.8–37.7; O2SAT 93–96; BMI 28.6
[2022-12-24 02:28] LABS: Anion Gap 12.1 mEq/L (5-15); Blood Urea Nitrogen 6 mg/dl (9-20); Calcium 7.8 mg/dl (8.4-10.2); Carbon Dioxide 21 mmol/L (22.0-30.0); Chloride 94 mmol/L (98-107); Creatinine Clearance Estimated 245 mL/min (50-200); Estimated Glomerular Filt Rate 176 ml/min (>60); GFR (African American) 213 ML/MIN (>60); Glucose 73 mg/dl (74-100); Potassium 3.1 mmoL/L (3.5-5.1); Sodium 124 mmol/L (136-145)
--- NOTE | 2022-12-24 04:16 | PC.NURSE ---
Pt A&O x4. Has c/o discomfort to (R) flank at times this shift. CIWA scores 1-2. VS have remained stable. Urine output has been good. NO BM this shift. Medications administered per mar. Safety measures in place.
[2022-12-24 06:57] LABS: Basophils % 0.1 % (0.1-2.0); Eosinophils % 0.3 % (0.1-12.0); Hematocrit 34.5 % (42.0-52.0); Hemoglobin 11.4 g/dL (14.1-18.0); Lymphocytes # 1.1 K/mm3 (0.7-4.5); Lymphocytes % 9.8 % (10-50); Mean Corpuscular Hemoglobin 32.3 pg (27.0-31.2); Mean Corpuscular Volume 97.9 fl (80-94); Mean Platelet Volume 8.5 fl (7.4-10.4); Monocytes # 0.8 K/mm3 (0.1-1.0); Monocytes % 7.4 % (1.7-9.3); Neutrophils # 9.5 K/mm3 (1.8-7.8); Neutrophils % 82.5 % (37.0-80.0); Platelet Count 237 K/mm3 (142-424); Red Blood Count 3.53 M/mm3 (4.60-6.20); Red Cell Distribution Width 12.3 % (11.5-17.5); White Blood Count 11.5 K/mm3 (4.8-10.8)
[2022-12-24 07:05] LABS: Chloride 97 mmol/L (98-107); Potassium 3.3 mmoL/L (3.5-5.1); Sodium 125 mmol/L (136-145)
[2022-12-24 07:07] LABS: Blood Urea Nitrogen 6 mg/dl (9-20); Creatinine Clearance Estimated 240 mL/min (50-200); Estimated Glomerular Filt Rate 176 ml/min (>60); GFR (African American) 213 ML/MIN (>60)
[2022-12-24 07:08] LABS: Alanine Aminotransferase 167 U/L (12-78); Albumin Level 3.8 g/dl (3.5-5.0); Albumin/Globulin Ratio 1.3 (1.1-1.8); Alkaline Phosphatase 88 U/L (38-126); Anion Gap 11.3 mEq/L (5-15); Bilirubin,Total 0.9 mg/dl (0.2-1.3); Calcium 7.7 mg/dl (8.4-10.2); Carbon Dioxide 20 mmol/L (22.0-30.0); Globulin 2.9 g/dL (1.3-3.2); Glucose 72 mg/dl (74-100); Lipase 297 U/L (23-300); Total Protein,Serum 6.7 g/dl (6.3-8.2)
[2022-12-24 08:07] LABS: Aspartate Amino Transferase 698 U/L (17-59)
[2022-12-24 08:25] LABS: Procalcitonin 2.64 ng/mL (0.0-2.0)
[2022-12-24 09:29] LABS: Sodium, Urine <20 mmol/L (Not Estab.)
--- NOTE | 2022-12-24 15:30 | DIET.NUTRFU ---
Mother contacted this RD about concerns with diet when patient is ready to eat, currently NPO. RD reviewed process of diet- based on labs, abdominal discomfort. Once clear and full liquids is tolerated, regular diet with avoidance of high fat greasy foods should be fine. She was concerned about foods she should get rid of or start buying. She already plans on getting rid of all EtOH beverages and that is most important at this time. He was drinking 16-18 beers/day. He has no hx of DM was on cholesterol medication [employer]. Will include a heart healthy diet handout with discharge paperwork.
--- NOTE | 2022-12-24 15:32 | CARE MANAGER ---
Spoke with patient today regarding rehab services available. He stated that he may be interested in going to rehab, but would like to stay close if possible. Packet of information given to patient with several rehab facilities listed.
[2022-12-24 16:03] LABS: Calcium, Ionized 4.7 mg/dL (4.5-5.6)
[2022-12-24 18:23] LABS: Vancomycin,Trough 8.8 ug/mL (5.0-10.0)
--- NOTE | 2022-12-24 18:44 | PC.NURSE ---
[facility] contacted with domonique zurita, stated ok to give 1830 dose
--- NOTE | 2022-12-24 19:11 | EXP.PN ---
Subjective *Date: 12/24/22 *Time: 19:11 Interval history: Date of service December 24, 2022 The patient reports no acute events. He is ambulating to the bathroom without difficulty. Nursing staff are reporting CIWA scores under 2. He is asking for something to eat. We have reviewed and discussed this morning labs. I have personally interpreted his labs as follows: CBC with an improved leukocytoses white blood cell count 11.5, hemoglobin 11.4, hematocrit 34, platelet count 237. Sodium has improved to 125 with potassium 3.3, chloride 97, bicarb 20, BUN 6, creatinine 0.5 and glucose trend under 100. His morning lipase is normal. His procalcitonin is elevated. Nursing staff report that he remains afebrile with stable vital signs and saturating appropriately on room air. He is tolerating his IV antibiotic with no adverse events. Exam Data for Last 24 hours Vital signs and Labs for Last 24 Hours: Temp Pulse Resp BP Pulse Ox 98.2 F 99 H 20 165/86 H 96 12/24/22 16:00 12/24/22 16:00 12/24/22 16:00 12/24/22 16:00 12/24/22 16:00 Laboratory Results - last 24 hr 12/23/22 05:24: Ionized Calcium 4.7 12/23/22 06:58: Urine Sodium <20 12/23/22 22:20: Sodium 123 L, Potassium 3.0 L, Chloride 94 L, Carbon Dioxide 20 L, Anion Gap 12.0, BUN 7 L, Creatinine 0.50 L, Estimated Creat Clear 245, Estimated GFR 176, Est GFR ( Amer) 213, Glucose 74, Calcium 7.7 L 12/23/22 22:20: Magnesium 2.1 12/24/22 02:05: Sodium 124 L, Potassium 3.1 L, Chloride 94 L, Carbon Dioxide 21 L, Anion Gap 12.1, BUN 6 L, Creatinine 0.50 L, Estimated Creat Clear 245, Estimated GFR 176, Est GFR ( Amer) 213, Glucose 73 L, Calcium 7.8 L 12/24/22 06:04: WBC 11.5 H D, RBC 3.53 L, Hgb 11.4 L, Hct 34.5 L, MCV 97.9 H, MCH 32.3 H, MCHC 33.0, RDW 12.3, Plt Count 237, MPV 8.5, Neut % (Auto) 82.5 H, Lymph % (Auto) 9.8 L, [place] % (Auto) 7.4, Eos % (Auto) 0.3, Baso % (Auto) 0.1, Neut # (Auto) 9.5 H, Lymph # (Auto) 1.1, [place] # (Auto) 0.8, Eos # (Auto) 0.0, Baso # (Auto) 0.0 12/24/22 06:04: Sodium 125 L, Potassium 3.3 L, Chloride 97 L, Carbon Dioxide 20 L, Anion Gap 11.3, BUN 6 L, Creatinine 0.50 L, Estimated Creat Clear 240, Estimated GFR 176, Est GFR ( Amer) 213, Glucose 72 L, Calcium 7.7 L, Total Bilirubin 0.9, AST 698 H* D, ALT 167 H D, Alkaline Phosphatase 88, Total Protein 6.7, Albumin 3.8, Globulin 2.9, Albumin/Globulin Ratio 1.3, Lipase 297 12/24/22 06:04: Procalcitonin 2.64 H 12/24/22 17:46: Vancomycin Trough 8.8 I & O for Last 24 hours: Intake & Output 12/21/22 12/22/22 12/23/22 12/24/22 23:59 23:59 23:59 23:59 Intake Total 1257 / 1257 980 / 980 Output Total 2650 / 3050 800 / 800 Balance -1393 / -1793 180 / 180 Weight 98.146 kg 95.844 kg Constitutional Constitutional: no acute distress, average body habitus, chronically ill appearing and cooperative *Routine HEENT Exam Head: Present normocephalic Eye: Present EOMI and PERRL ENT: Present mucous membranes moist *Routine Neck Exam Neck: Present supple; Absent lymphadenopathy *Routine Respiratory Exam Respiratory: Present rhonchi, normal respiratory effort and symmetric chest movement *Routine Cardiovascular Exam Cardiovascular: Present RRR *Routine Abdominal Exam Abdominal: Present soft and normoactive bowel sounds; Absent tenderness *Routine Extremities Exam Extremities: Present full ROM, pulses intact and normal capillary refill; Absent cyanosis, clubbing or edema *Routine Skin Exam Skin: Present warm; Absent rash *Routine Neurological Exam Neurological: Present alert, oriented X3, moving all extremities, vision grossly intact, hearing grossly intact and normal speech Routine Psychiatric Exam Psychiatric: Present normal affect, normal thought process, cooperative and good insight Assessment and Plan *Assessment and plan (1) Sepsis: Status: Acute Category: Medical Code(s): A41.9 - Sepsis, unspecified organism (2) Pneumonia: Status: Acute Category: Medica
--- NOTE | 2022-12-24 19:40 | PC.NURSE ---
pt remains on room air, no complaints of soa or pain, has ambulated in room this shift
[2022-12-24 23:21] LABS: Vancomycin,Peak 21.7 ug/ml (11-39)
--- NOTE | 2022-12-24 23:48 | PC.NURSE ---
notified MD Hlot about pt's request for ibuprofen, stated with another pt at this time
[2022-12-25] VITALS (14 sets, daily range): BP systolic 116–158; BP diastolic 72–96; PULSE 80–105; RESP 16–24; TEMP 37–37.8; O2SAT 94–98
--- NOTE | 2022-12-25 00:06 | PC.NURSE ---
notified MD Holt that pt pulled out both IV's and does not want another IV placed, no new orders at this time
--- NOTE | 2022-12-25 00:12 | PC.NURSE ---
MD Holt rounded on pt, stated pt can't have ibuprofen due to risk of bleeding, stated would switch anitbiotics to PO
--- NOTE | 2022-12-25 06:49 | PC.NURSE ---
pt restless throughout shift, but at approximately 0500 pt combative and aggressive toward staff and attempted to enter other pt's rooms; notified MD Holt of pt's behavior, ordered 15mg serax po, pt refused to take any medication; pt's son came to bedside and is attempting to calm pt; pt refused labs to be drawn at this time, pt does not want staff in his room at this time
--- NOTE | 2022-12-25 08:52 | PC.NURSE ---
pt has refused all care this morning, has refused to be assessed, refused meds, refused vitals, his bags are packed and he states he is leaving
--- NOTE | 2022-12-25 09:23 | PC.NURSE ---
tech note; notified nurse of pt refusal for 0800 vital signs.
[2022-12-25 10:49] LABS: Basophils % 0.3 % (0.1-2.0); Eosinophils # 0.2 K/mm3 (0.0-0.4); Eosinophils % 2.2 % (0.1-12.0); Hematocrit 31.1 % (42.0-52.0); Hemoglobin 10.8 g/dL (14.1-18.0); Lymphocytes # 1.4 K/mm3 (0.7-4.5); Lymphocytes % 12.9 % (10-50); Mean Corpuscular HGB Conc 34.8 g/dL (31.8-35.4); Mean Corpuscular Hemoglobin 33.5 pg (27.0-31.2); Mean Corpuscular Volume 96.3 fl (80-94); Mean Platelet Volume 10.2 fl (7.4-10.4); Monocytes # 1.1 K/mm3 (0.1-1.0); Monocytes % 9.9 % (1.7-9.3); Neutrophils # 8.2 K/mm3 (1.8-7.8); Neutrophils % 74.7 % (37.0-80.0); Platelet Count 305 K/mm3 (142-424); Red Blood Count 3.23 M/mm3 (4.60-6.20); Red Cell Distribution Width 12.6 % (11.5-17.5); White Blood Count 10.9 K/mm3 (4.8-10.8)
--- NOTE | 2022-12-25 10:57 | EXP.PN ---
Subjective *Date: 12/25/22 *Time: 10:57 Interval history: Date of service December 25, 2022 Nursing staff report that the patient remains afebrile with stable vital signs and saturating appropriately on room air. I was called by the house registry rn in the middle of the night reporting that the patient was not decisional pulled out IVs and refused care. His is at bedside today and reports that he is talking out of his head. Staff report that he has threatened to hit them. The is requesting that we proceed with medications to assist with his withdrawal and restraints if necessary. She has identified that he is not decisional. We have reviewed and discussed his improving sodium from yesterday. The patient refused labs today. Exam Data for Last 24 hours Vital signs and Labs for Last 24 Hours: Temp Pulse Resp BP Pulse Ox 98.6 F 91 H 24 150/91 H 97 12/25/22 04:00 12/25/22 10:20 12/25/22 10:20 12/25/22 10:20 12/25/22 10:20 Laboratory Results - last 24 hr 12/23/22 05:16: Serum Osmolality 231 L 12/23/22 05:24: Ionized Calcium 4.7 12/24/22 17:46: Vancomycin Trough 8.8 12/24/22 22:43: Vancomycin Peak 21.7 12/25/22 10:35: WBC 10.9 H, RBC 3.23 L, Hgb 10.8 L, Hct 31.1 L, MCV 96.3 H, MCH 33.5 H, MCHC 34.8, RDW 12.6, Plt Count 305 D, MPV 10.2, Neut % (Auto) 74.7, Lymph % (Auto) 12.9, [place] % (Auto) 9.9 H, Eos % (Auto) 2.2, Baso % (Auto) 0.3, Neut # (Auto) 8.2 H, Lymph # (Auto) 1.4, [place] # (Auto) 1.1 H, Eos # (Auto) 0.2, Baso # (Auto) 0.0 I & O for Last 24 hours: Intake & Output 12/22/22 12/23/22 12/24/22 12/25/22 23:59 23:59 23:59 23:59 Intake Total 1257 / 1257 980 / 980 100 / 100 Output Total 2650 / 3050 800 / 800 0 / 0 Balance -1393 / -1793 180 / 180 100 / 100 Weight 98.146 kg 95.844 kg Microbiology Reports for the Last 24 Hours: Microbiology 12/23/22 02:07 Blood Blood Culture - Preliminary NO GROWTH AFTER 48 HOURS 12/23/22 02:07 Blood Blood Culture - Preliminary NO GROWTH AFTER 48 HOURS Constitutional Constitutional: no acute distress, average body habitus, chronically ill appearing, combative and agitated Comments: I am accompanied by several members of nursing staff to assist with injectable antipsychotic and placement of soft restraints. *Routine HEENT Exam Head: Present normocephalic Eye: Present EOMI and PERRL ENT: Present mucous membranes moist *Routine Neck Exam Neck: Present supple; Absent lymphadenopathy *Routine Respiratory Exam Respiratory: Present rhonchi, normal respiratory effort and symmetric chest movement *Routine Cardiovascular Exam Cardiovascular: Present RRR *Routine Abdominal Exam Abdominal: Present soft and normoactive bowel sounds; Absent tenderness *Routine Extremities Exam Extremities: Present full ROM, pulses intact and normal capillary refill; Absent cyanosis, clubbing or edema *Routine Skin Exam Skin: Present warm; Absent rash *Routine Neurological Exam Neurological: Present alert, oriented X3, moving all extremities, vision grossly intact, hearing grossly intact and normal speech Routine Psychiatric Exam Psychiatric: Present normal affect, normal thought process, cooperative and good insight Assessment and Plan *Assessment and plan (1) Sepsis: Status: Acute Category: Medical Code(s): A41.9 - Sepsis, unspecified organism (2) Pneumonia: Status: Acute Category: Medical Code(s): J18.9 - Pneumonia, unspecified organism (3) Pancreatitis: Status: Acute Category: Medical Code(s): K85.90 - Acute pancreatitis without necrosis or infection, unspecified (4) Alcohol withdrawal: Status: Acute Category: Medical Code(s): F10.939 - Alcohol use, unspecified with withdrawal, unspecified (5) Hyponatremia: Status: Acute Category: Medical Code(s): E87.1 - Hypo-osmolality and hyponatremia (6) Hypokalemia:
[2022-12-25 13:41] LABS: Alanine Aminotransferase 178 U/L (12-78); Albumin Level 3.9 g/dl (3.5-5.0); Albumin/Globulin Ratio 1.3 (1.1-1.8); Alkaline Phosphatase 87 U/L (38-126); Anion Gap 10.1 mEq/L (5-15); Aspartate Amino Transferase 525 U/L (17-59); Bilirubin,Total 0.9 mg/dl (0.2-1.3); Blood Urea Nitrogen 4 mg/dl (9-20); Calcium 8.1 mg/dl (8.4-10.2); Carbon Dioxide 24 mmol/L (22.0-30.0); Chloride 97 mmol/L (98-107); Creatinine Clearance Estimated 240 mL/min (50-200); Estimated Glomerular Filt Rate 176 ml/min (>60); GFR (African American) 213 ML/MIN (>60); Globulin 2.9 g/dL (1.3-3.2); Glucose 90 mg/dl (74-100); Potassium 3.1 mmoL/L (3.5-5.1); Sodium 128 mmol/L (136-145); Total Protein,Serum 6.8 g/dl (6.3-8.2)
[2022-12-25 17:37] LABS: Osmolality, Urine 364 mOsmol/kg (.)
--- NOTE | 2022-12-25 18:56 | PC.NURSE ---
pt has tolerated restraints well this shift, no skin issues noted, frequent checks performed and staff continuously at bedside, pt has had adequate UOP, has been offered nutrition and hydration at frequent intervals
[2022-12-26] VITALS (9 sets, daily range): BP systolic 121–155; BP diastolic 75–103; PULSE 80–113; RESP 18–40; TEMP 36.6–37.7; O2SAT 92–98; BMI 28.3
--- NOTE | 2022-12-26 07:27 | PC.NURSE ---
restraints removed at this time, aware
[2022-12-26 07:46] LABS: Alanine Aminotransferase 157 U/L (12-78); Albumin Level 3.7 g/dl (3.5-5.0); Albumin/Globulin Ratio 1.2 (1.1-1.8); Alkaline Phosphatase 90 U/L (38-126); Aspartate Amino Transferase 323 U/L (17-59); Bilirubin,Total 0.8 mg/dl (0.2-1.3); Blood Urea Nitrogen 4 mg/dl (9-20); Calcium 8.1 mg/dl (8.4-10.2); Carbon Dioxide 25 mmol/L (22.0-30.0); Chloride 96 mmol/L (98-107); Creatinine Clearance Estimated 238 mL/min (50-200); Estimated Glomerular Filt Rate 176 ml/min (>60); GFR (African American) 213 ML/MIN (>60); Globulin 3.1 g/dL (1.3-3.2); Glucose 87 mg/dl (74-100); Sodium 128 mmol/L (136-145); Total Protein,Serum 6.8 g/dl (6.3-8.2)
[2022-12-26 07:56] LABS: Basophils % 0.4 % (0.1-2.0); Eosinophils # 0.2 K/mm3 (0.0-0.4); Eosinophils % 2.1 % (0.1-12.0); Hematocrit 34.2 % (42.0-52.0); Hemoglobin 11.6 g/dL (14.1-18.0); Lymphocytes # 1.8 K/mm3 (0.7-4.5); Lymphocytes % 19.7 % (10-50); Mean Corpuscular HGB Conc 33.8 g/dL (31.8-35.4); Mean Corpuscular Hemoglobin 32.3 pg (27.0-31.2); Mean Corpuscular Volume 95.6 fl (80-94); Mean Platelet Volume 8.1 fl (7.4-10.4); Monocytes # 1.2 K/mm3 (0.1-1.0); Monocytes % 13.2 % (1.7-9.3); Neutrophils # 5.9 K/mm3 (1.8-7.8); Neutrophils % 64.5 % (37.0-80.0); Platelet Count 339 K/mm3 (142-424); Red Blood Count 3.58 M/mm3 (4.60-6.20); Red Cell Distribution Width 12.3 % (11.5-17.5); White Blood Count 9.2 K/mm3 (4.8-10.8)
[2022-12-26 08:04] LABS: Procalcitonin 0.464 ng/mL (0.0-2.0)
--- NOTE | 2022-12-26 12:12 | EXP.PN ---
Subjective *Date: 12/26/22 *Time: 12:12 Interval history: Date of service December 26, 2022 Nursing staff reported the patient remains afebrile with stable heart rates, blood pressures and saturating appropriately on room air. CIWA scores are reviewed and nursing staff report ongoing parentally administered controlled substance for comfort care. He is no longer requiring soft restraints. We have reviewed and discussed this morning labs and I have personally interpreted his labs as follows: A CBC with a resolved leukocytoses, stable hemoglobin 11.6, hematocrit 34.2 and platelet count 339,000. His sodium has improved to 128 potassium is 3.0 and being replaced, BUN 4, creatinine 0.5, Magnesium 2.0, his LFTs are downward trending with an AST of 323 and ALT 157 and normal bilirubin. Exam Data for Last 24 hours Vital signs and Labs for Last 24 Hours: Temp Pulse Resp BP Pulse Ox 98.0 F 80 24 129/75 93 L 12/26/22 11:02 12/26/22 11:02 12/26/22 11:02 12/26/22 11:02 12/26/22 11:02 Laboratory Results - last 24 hr 12/23/22 06:58: Urine Osmolality 364 12/25/22 13:20: Sodium 128 L, Potassium 3.1 L, Chloride 97 L, Carbon Dioxide 24, Anion Gap 10.1, BUN 4 L D, Creatinine 0.50 L, Estimated Creat Clear 240, Estimated GFR 176, Est GFR ( Amer) 213, Glucose 90, Calcium 8.1 L, Total Bilirubin 0.9, AST 525 H*, ALT 178 H, Alkaline Phosphatase 87, Total Protein 6.8, Albumin 3.9, Globulin 2.9, Albumin/Globulin Ratio 1.3 12/26/22 06:50: WBC 9.2, RBC 3.58 L, Hgb 11.6 L, Hct 34.2 L, MCV 95.6 H, MCH 32.3 H, MCHC 33.8, RDW 12.3, Plt Count 339, MPV 8.1, Neut % (Auto) 64.5, Lymph % (Auto) 19.7, [place] % (Auto) 13.2 H, Eos % (Auto) 2.1, Baso % (Auto) 0.4, Neut # (Auto) 5.9, Lymph # (Auto) 1.8, [place] # (Auto) 1.2 H, Eos # (Auto) 0.2, Baso # (Auto) 0.0 12/26/22 06:50: Sodium 128 L, Potassium 3.0 L, Chloride 96 L, Carbon Dioxide 25, Anion Gap 10.0, BUN 4 L, Creatinine 0.50 L, Estimated Creat Clear 238, Estimated GFR 176, Est GFR ( Amer) 213, Glucose 87, Calcium 8.1 L, Magnesium 2.0, Total Bilirubin 0.8, AST 323 H* D, ALT 157 H, Alkaline Phosphatase 90, C-Reactive Protein 89.0 H, Total Protein 6.8, Albumin 3.7, Globulin 3.1, Albumin/Globulin Ratio 1.2, Procalcitonin 0.464 I & O for Last 24 hours: Intake & Output 12/23/22 12/24/22 12/25/22 12/26/22 23:59 23:59 23:59 23:59 Intake Total 1257 / 1257 980 / 980 260 / 260 200 / 200 Output Total 2650 / 3050 800 / 800 2925 / 2925 1475 / 1475 Balance -1393 / -1793 180 / 180 -2665 / -2665 -1275 / -1275 Weight 98.146 kg 95.844 kg 95.028 kg Constitutional Constitutional: no acute distress, average body habitus, chronically ill appearing and somnolent Comments: No longer in soft restraints *Routine HEENT Exam Head: Present normocephalic Eye: Present EOMI and PERRL ENT: Present mucous membranes moist *Routine Neck Exam Neck: Present supple; Absent lymphadenopathy *Routine Respiratory Exam Respiratory: Present rhonchi, normal respiratory effort and symmetric chest movement *Routine Cardiovascular Exam Cardiovascular: Present RRR *Routine Abdominal Exam Abdominal: Present soft and normoactive bowel sounds; Absent tenderness *Routine Extremities Exam Extremities: Present full ROM, pulses intact and normal capillary refill; Absent cyanosis, clubbing or edema *Routine Skin Exam Skin: Present warm; Absent rash *Routine Neurological Exam Neurological: Present moving all extremities Comments: Somnolent Assessment and Plan *Assessment and plan (1) Sepsis: Status: Acute Category: Medical Code(s): A41.9 - Sepsis, unspecified organism (2) Pneumonia: Status: Acute Category: Medical Code(s): J18.9 - Pneumonia, unspecified organism (3) Pancreatitis: Status: Acute Category: Medical Code(s): K85.90 - Acute pancreatitis without necrosis or infection, unspecified (4) Alcohol withdrawal: Status: Acute Category: Medical Code(s): F10
--- NOTE | 2022-12-26 17:17 | PC.NURSE ---
pt able to answer orientation questions correctly this shift, no complaints of SOA or pain, remains on room air
[2022-12-27 04:00] VITALS: BP 143/106; PULSE 114; RESP 18; TEMP 37.2; O2SAT 96; BMI 27.2
[2022-12-27 06:25] LABS: Anion Gap 7.1 mEq/L (5-15); Blood Urea Nitrogen 3 mg/dl (9-20); Calcium 8.2 mg/dl (8.4-10.2); Carbon Dioxide 28 mmol/L (22.0-30.0); Chloride 95 mmol/L (98-107); Creatinine Clearance Estimated 228 mL/min (50-200); Estimated Glomerular Filt Rate 176 ml/min (>60); GFR (African American) 213 ML/MIN (>60); Glucose 124 mg/dl (74-100); Potassium 3.1 mmoL/L (3.5-5.1); Sodium 127 mmol/L (136-145)
[2022-12-27 07:34] VITALS: BP 153/87; PULSE 125; RESP 18; TEMP 37.7; O2SAT 95
[2022-12-27 08:00] VITALS: O2SAT 96
[2022-12-27 11:15] VITALS: BP 148/90; PULSE 106; RESP 19; TEMP 36.8; O2SAT 95
--- NOTE | 2022-12-27 14:10 | EXP.PN ---
Subjective *Date: 12/27/22 *Time: 14:10 Interval history: Date of service December 27, 2022 The patient reports no acute events overnight. He is accompanied by his son who is at bedside. I am accompanied by his nursing staff. They report that he remains afebrile with occasional tachycardia but improved from admission with stable blood pressures and saturating appropriately on room air. He is alert and oriented having conversation with his son. We have reviewed and discussed his morning labs. I have personally interpreted his following lab results: Sodium 127, potassium 3.1, chloride 95, BUN 3, creatinine 0.5, glucose trend under 150, downward trend of LFTs. Exam Data for Last 24 hours Vital signs and Labs for Last 24 Hours: Temp Pulse Resp BP Pulse Ox 98.2 F 106 H 19 148/90 H 95 12/27/22 11:15 12/27/22 11:15 12/27/22 11:15 12/27/22 11:15 12/27/22 11:15 Laboratory Results - last 24 hr 12/27/22 05:45: Sodium 127 L, Potassium 3.1 L, Chloride 95 L, Carbon Dioxide 28, Anion Gap 7.1, BUN 3 L, Creatinine 0.50 L, Estimated Creat Clear 228, Estimated GFR 176, Est GFR ( Amer) 213, Glucose 124 H D, Calcium 8.2 L I & O for Last 24 hours: Intake & Output 12/24/22 12/25/22 12/26/22 12/27/22 23:59 23:59 23:59 23:59 Intake Total 980 / 980 260 / 260 1260 / 1260 2762 / 2762 Output Total 800 / 800 2925 / 2925 3800 / 3800 2049 / 2049 Balance 180 / 180 -2665 / -2665 -2540 / -2540 712 / 712 Weight 95.844 kg 95.028 kg 91.257 kg Constitutional Constitutional: no acute distress, average body habitus, chronically ill appearing and cooperative Comments: No longer in soft restraints *Routine HEENT Exam Head: Present normocephalic Eye: Present EOMI and PERRL ENT: Present mucous membranes moist *Routine Neck Exam Neck: Present supple and trachea midline; Absent lymphadenopathy *Routine Respiratory Exam Respiratory: Present rhonchi, normal respiratory effort and symmetric chest movement *Routine Cardiovascular Exam Cardiovascular: Present RRR *Routine Abdominal Exam Abdominal: Present soft and normoactive bowel sounds; Absent tenderness *Routine Extremities Exam Extremities: Present full ROM, pulses intact and normal capillary refill; Absent cyanosis, clubbing or edema *Routine Skin Exam Skin: Present warm; Absent rash *Routine Neurological Exam Neurological: Present alert, oriented X3, CN II-XII intact, moving all extremities, vision grossly intact, hearing grossly intact and normal speech; Absent sensory deficit or motor deficit Comments: Somnolent Routine Psychiatric Exam Psychiatric: Present normal affect, normal thought process, cooperative, good insight and good judgment Assessment and Plan *Assessment and plan (1) Sepsis: Status: Acute Category: Medical Code(s): A41.9 - Sepsis, unspecified organism (2) Pneumonia: Status: Acute Category: Medical Code(s): J18.9 - Pneumonia, unspecified organism (3) Pancreatitis: Status: Acute Category: Medical Code(s): K85.90 - Acute pancreatitis without necrosis or infection, unspecified (4) Alcohol withdrawal: Status: Acute Category: Medical Code(s): F10.939 - Alcohol use, unspecified with withdrawal, unspecified (5) Hyponatremia: Status: Acute Category: Medical Code(s): E87.1 - Hypo-osmolality and hyponatremia (6) Hypokalemia: Status: Acute Category: Medical Code(s): E87.6 - Hypokalemia (7) High anion gap metabolic acidosis: Status: Acute Category: Medical Code(s): E87.29 - Other acidosis Plan 52-year-old male with chronic alcohol use disorder drinking up to 18 cans of beer a day presents with nausea vomiting diarrhea over 3 days and a sodium of 110. Problems addressed as follows: Sepsis (POA) Febrile, tachycardia, tachypnea, leukocytoses, chest imaging with multifocal pneumonia Blood and sputum cultures pending Trending labs
[2022-12-27 15:01] VITALS: BP 155/96; PULSE 86; RESP 18; TEMP 36.8; O2SAT 96
[2022-12-27 20:00] VITALS: BP 152/100; PULSE 95; RESP 18; TEMP 36.8; O2SAT 97
[2022-12-27 22:08] LABS: Body Fluid Culture, Sterile Not indicated. (.); Legionella pneumophila Urinary Negative (Negative); Organism ID Not indicated. (.); Specimen Source Urine (.); Streptococcus pneumoniae Ag Negative (Negative)
[2022-12-28] VITALS: PULSE 91; RESP 18; TEMP 37.4; O2SAT 97
[2022-12-28 04:00] VITALS: BP 122/93; PULSE 84; RESP 19; TEMP 37.2; O2SAT 96; BMI 28.3
[2022-12-28 06:34] LABS: Chloride 95 mmol/L (98-107); Sodium 131 mmol/L (136-145)
[2022-12-28 06:35] LABS: Potassium 3.3 mmoL/L (3.5-5.1)
[2022-12-28 06:36] LABS: Basophils # 0.1 K/mm3 (0-0.2); Basophils % 0.8 % (0.1-2.0); Eosinophils # 0.4 K/mm3 (0.0-0.4); Eosinophils % 3.2 % (0.1-12.0); Hematocrit 39.4 % (42.0-52.0); Hemoglobin 12.5 g/dL (14.1-18.0); Lymphocytes # 1.8 K/mm3 (0.7-4.5); Lymphocytes % 16.4 % (10-50); Mean Corpuscular HGB Conc 31.7 g/dL (31.8-35.4); Mean Corpuscular Hemoglobin 31.8 pg (27.0-31.2); Mean Corpuscular Volume 100.5 fl (80-94); Mean Platelet Volume 7.8 fl (7.4-10.4); Monocytes # 1.1 K/mm3 (0.1-1.0); Monocytes % 10.1 % (1.7-9.3); Neutrophils # 7.5 K/mm3 (1.8-7.8); Neutrophils % 69.4 % (37.0-80.0); Platelet Count 499 K/mm3 (142-424); Red Blood Count 3.92 M/mm3 (4.60-6.20); Red Cell Distribution Width 12.5 % (11.5-17.5); White Blood Count 10.7 K/mm3 (4.8-10.8)
[2022-12-28 06:37] LABS: Alanine Aminotransferase 124 U/L (12-78); Alkaline Phosphatase 99 U/L (38-126); Anion Gap 12.3 mEq/L (5-15); Aspartate Amino Transferase 161 U/L (17-59); Bilirubin,Total 0.9 mg/dl (0.2-1.3); Carbon Dioxide 27 mmol/L (22.0-30.0); Creatinine Clearance Estimated 238 mL/min (50-200); Estimated Glomerular Filt Rate 176 ml/min (>60); GFR (African American) 213 ML/MIN (>60)
[2022-12-28 06:38] LABS: Albumin Level 4.2 g/dl (3.5-5.0); Albumin/Globulin Ratio 1.1 (1.1-1.8); Calcium 8.8 mg/dl (8.4-10.2); Globulin 3.8 g/dL (1.3-3.2); Glucose 110 mg/dl (74-100)
[2022-12-28 06:39] LABS: Blood Urea Nitrogen < 2 mg/dl (9-20)
--- NOTE | 2022-12-28 06:40 | PC.NURSE ---
NO ACUTE CHANGE STHIS SHIFT. VSS. PT HAS RESTED BETTER THIS SHIFT. AMBULATING TO BR INDEPENDENTLY. HAS C/O NAUSEA X1 THIS SHIFT. PRN ZOFRAN GIVEN WITH ADEQUATE RELIEF. PT STATES THAT HE IS EAGER TO GO HOME TODAY.
[2022-12-28 07:49] VITALS: BP 169/96; PULSE 83; RESP 18; TEMP 37.4
[2022-12-28 09:12] VITALS: BMI 28.3
--- NOTE | 2022-12-28 10:45 | EXP.DC.SUM ---
General Admission date:: 12/23/22 Discharge date: 12/28/22 HPI HPI HPI: Mr. Perez is a 52-year-old male with a past medical history of Tachycardia, Hypothyroidism and Hyperlipidemia. He presents to [facility] due to a 4-day history of non-stop vomiting, cough, weakness, shaking and freezing. is at bedside who provides information for the history and physical. Per the patient has been ill since 12/19/2022. She reports that he has been unable to take any of his medications due to constant vomiting. She reports that he drinks approximately 18 beers every day. She denies a history of DT's, but she reports that she has never seen him not drink alcohol. She reports that he has attempted to continue drinking alcohol but has continued to vomit. She reports that he has progressively worsened, so she brought him into the ER for evaluation. In the ER, he has electrolyte disturbances: Sodium level is 110, K is 3.2. WBC is 18.4. CT of the abdomen and pelvis is concerning for Pancreatitis, CXray shows multi-focal consolidations. He was noted to have fallen during his acute illness and CT of the head and neck shows no acute findings. The patient meets criteria for Sepsis on admission with WBC 18.4, Temperature 101.4, Imaging concerning for Multifocal pneumonia, HR 128 and RR 49. The patient is tremulous on exam, has been slightly confused per family. There is concern for acute alcohol withdrawal. The patient has been placed on CIWA protocol. The patient is admitted with initial impression: Sepsis, Pneumonia, Acute Pancreatitis, Hyponatremia, Hypokalemia, Acute Alcohol Withdrawal. The plan of care was discussed with and son and patient at bedside. All verbalized understanding and agreement with the plan of care. Hospital Course Hospital Course Hospital Course: The patient was admitted to the medical unit with telemetry and pulse oximetry monitoring. CIWA scores were requested. He was maintained on vitamin supplementation and IV benzodiazepine therapy for his elevated CIWA scores. He required a few hours of soft restraints secondary to harm to self, others and attempts to remove IV for treatment. His laboratory studies and inflammatory markers were trended and identified improvement and stability including his sodium. His admission sodium was 110 and on discharge 131. His creatinine remained stable throughout his hospital stay. Blood cultures were acquired and he was started on broad-spectrum IV antibiotic therapy. Concerns for aspiration pneumonia on imaging were reviewed. His admission leukocytoses resolved and on discharge his white blood cell count was 10.7. His LFTs identified a downward trend. His CIWA scores improved and he was transitioned to scheduled benzodiazepine therapy with improved interactions with staff, ambulatory status and taking p.o. well. He identified improvement and inquired about discharge home. We have recommended discharge home on a short course of benzodiazepine therapy, continued multivitamin therapy and recommended follow-up with his PCP in 1 week. We have recommended outpatient rehab for his alcohol use disorder. We have also recommended regular attendance to AA. I spent 35 minutes in [id number] time with the patient and nursing staff concerning the discharge process. We discussed the admitting diagnoses and hospital course. We discussed identified improvement and the patient's desire to be discharged. We reviewed inpatient studies and imaging. The patient voiced understanding on the importance of follow-up with his primary care provider. The patient plans to be compliant with the medication regimen prescribed and follow-up appointments. He understands that he can return to the emergency department with any sudden changes or concerns. Exam Data for Last 24 hours Vital signs and Labs for Last 24 Hours: Temp Pulse Resp BP Pulse Ox 99.3 F 83 18 169/96 H 96 12/28/22 07:49
--- NOTE | 2022-12-28 11:17 | HMH.PHAINT1 ---
Pharmacy Intervention Comments: Discussed discharge medications with patient. Patient verbalized understanding and had no questions at this time
[2022-12-28 12:00] VITALS: BP 126/85; PULSE 69; RESP 18; TEMP 37.3; O2SAT 98
[2022-12-28 12:48] LABS: Chloride 94 mmol/L (98-107); Potassium 4.1 mmoL/L (3.5-5.1); Sodium 128 mmol/L (136-145)
[2022-12-28 12:51] LABS: Anion Gap 10.1 mEq/L (5-15); Blood Urea Nitrogen 3 mg/dl (9-20); Calcium 8.7 mg/dl (8.4-10.2); Carbon Dioxide 28 mmol/L (22.0-30.0); Creatinine Clearance Estimated 238 mL/min (50-200); Estimated Glomerular Filt Rate 176 ml/min (>60); GFR (African American) 213 ML/MIN (>60); Glucose 112 mg/dl (74-100)
--- NOTE | 2022-12-28 13:03 | PC.NURSE ---
dr. park aware of [facility], stated patient was okay for discharge.
[2022-12-28 23:07] LABS: MRSA DNA PCR NEGATIVE
--- NOTE | 2022-12-29 10:36 | CARE MANAGER ---
Spoke with Antoinette Chris this morning in regards to discharge yesterday. Patient stated that he feels ok today and had no complaints or concerns at time of call. He is aware of scheduled f/u appt, and was able to bulk picker all new prescribed medications from his pharmacy.
== END 2022-12-28 13:20 | disposition home or self-care (01) | DRG 871 ==
LOC: ER 02:13 → 2ND 05:45
PROVIDERS: Nurse Practitioner Family; Admitting Provider Internal Medicine Adolescent Medicine; Emergency Provider Emergency Medicine; PCP Emergency Medicine; Visit Provider Family Medicine
DX: J18.9 Pneumonia, unspecified organism (principal); K85.90 Acute pancreatitis without necrosis or infection, unspecified; F10.939 Alcohol use, unspecified with withdrawal, unspecified; A41.9 Sepsis, unspecified organism; E87.1 Hypo-osmolality and hyponatremia; E87.20 Acidosis, unspecified; E87.6 Hypokalemia; F17.210 Nicotine dependence, cigarettes, uncomplicated; E03.9 Hypothyroidism, unspecified
CPT/HCPCS: 36415; 70450; 71045; 72125; 72170; 74177; 80048; 80053; 80202; 82330; 83605; 83690; 83735; 83930; 83935; 84145; 84300; 85007; 85025; 85651; 86140; 87040; 87641; 87899; 99285; C9803; J0131; J1956; J2405; J3370; Q9967; U0003; U0005

== ENCOUNTER → 2023-04-14 06:17 | Outpatient (CLI) | payer BC, SELFPAY ==
--- NOTE | 2023-04-14 06:18 | NM_ITS ---
APPROVED REPORT Exam: Nuclear Stress Test Indication: SOA Patient Location: Outpatient Stress Tech: Juanita Gong PR Tech:CHARBEL Amanda RT(R)(N) Ht: 6 ft 0 in Wt: 212 lbs HR: 63 bpm BP: 110/65 mmHg BSA: 2.18 m2 TID: 1.39 History: SOA Procedure: Patient received 0.4 mg of intravenous Lexiscan, resting heart rate 63 bpm, resting blood pressure 110/65 mmHg, with Lexiscan maximum heart rate achieved was 90 bpm which is 85 % of the maximum predicted heart rate and blood pressure was 123/72 mmHg. With Lexiscan, patient denied any complaint of chest pain. Cardiac Stress and Resting SPECT Images: Cardiac Stress and Resting SPECT images were obtained using technetium 99m Myoview 32.4 mCi stress and 10.14 mCi at rest. Resting and stress imaging in both supine and prone positions demonstrate a large sized, moderate, fixed perfusion defect in the anterior LV wall involving the apex. There is also a large sized, moderate, partially reversible perfusion defect involving the inferior, inferoseptal, and inferolateral LV wall that is no longer visualized with prone imaging. This likely represents diaphragmatic attenuation, but a true perfusion defect cannot be completely ruled out. There is marked increased transient ischemic dilatation ratio (TID=1.39) suggestive of possible balanced ischemia or multivessel disease. Gated imaging demonstrate normal global LV systolic function. There is mild hypokinesis in the mid to distal anterior and apical LV priest. LVEF is calculated at 53% Conclusion: Large sized, moderate, fixed perfusion defect in the anterior LV wall involving the apex. Large sized, moderate, partially reversible perfusion defect involving the inferior, inferoseptal, and inferolateral LV wall that is no longer visualized with prone imaging. This likely represents diaphragmatic attenuation, but a true perfusion defect cannot be completely ruled out. Increased transient ischemic dilatation ratio (TID=1.39) suggestive of possible balanced ischemia or multivessel disease. Gated imaging demonstrate normal global LV systolic function. There is mild hypokinesis in the mid to distal anterior and apical LV priest. LVEF is calculated at 53%. Compared to prior study from 2019, these findings are new. Electronically signed by : Mandi aDhl, 04/14/2023 23:08:36
--- NOTE | 2023-04-14 06:18 | CA_ITS ---
APPROVED REPORT Exam: Pharmacologic Technologist: Juanita Dumont, Ht: 6 ft 0 in Wt: 215 lbs BSA: 2.20 m2 HR: 68 bpm BP: 110/65 mmHg Rhythm: NSR Medical History Medications: Levothyroxine,,,,, Atorvastatin,,,,, FOLIC ACID,,,,, Vitamin B1,,,,, Metoprolol Succinate ER,,,,, Stress Test Details Test: LEXISCAN Reason for pharmacologic stress test: physical limitation. HR Resting HR: 63 bpm Max Heart Rate (APMHR): 170 bpm Max HR Achieved: 90 bpm Target HR (85% APMHR): 145 bpm % of APMHR: 53 Recovery HR: 75 bpm BP Resting BP: 110/65 mmHg Max BP: 123/72 mmHg Recovery BP: 120.0/66.0 mmHg ECG Resting ECG: NSR, PACs, early repolarization changes with diffuse upsloping ST-elevation. Stress ECG: No change Arrhythmia: None Recovery ECG: None Recovery Arrhythmia: None Clinical Exercise duration: 04:00 min Highest Stage Achieved: Exercise capacity: 1.0 METs Stress ECG Conclusion Symptoms: chest pressure, mild SOA & head discomfort Arrhythmias/Ectopy: Rare PAC. ST-T Changes: No significant change compared to baseline Conclusion: Non-diagnostic due to baseline ECG abnormalities. Myoview images reported separately. Test Summary REST . . . . . . . Resting REST 05:56 . . 63 . 110/ 65 . . Stage 1 01:00 . . 88 . . . . Stage 2 01:00 . . 78 . 118/ 72 . . Stage 3 01:00 . . 77 . 113/ 64 . . Stage 4 01:00 . . 73 . 122/ 68 . Stop exercise at 04:00 RECOVERY 01:00 . . 77 . . . . RECOVERY 02:00 . . 74 . 123/ 72 . . RECOVERY 03:00 . . 75 . 123/ 72 . . RECOVERY 03:33 . . 69 . 120/ 66 . . Electronically signed by : Mandi Dahl, 04/14/2023 22:45:44
[2023-04-14 07:04] LABS: Chol/HDL Ratio 4.5 (1-3.5); Cholesterol 161 mg/dl (140-200); HDL Cholesterol 36 mg/dl (40-60); Triglycerides 135 mg/dl (30-150); VLDL Cholesterol 27 mg/dL (0-40)
== END ==
PROVIDERS: PCP Emergency Medicine; Visit Provider Physician Assistant
DX: I25.10 Atherosclerotic heart disease of native coronary artery without angina pectoris (principal); I25.84 Coronary atherosclerosis due to calcified coronary lesion; I10 Essential (primary) hypertension; E78.2 Mixed hyperlipidemia; F10.10 Alcohol abuse, uncomplicated; F17.200 Nicotine dependence, unspecified, uncomplicated
CPT/HCPCS: 78452; 80061; 93017; 93306; A9502; J2785

== ENCOUNTER 2023-04-29 07:54 | Day surgery (SDC) | payer BC, SELFPAY ==
[2023-04-29] VITALS (14 sets, daily range): BP systolic 103–146; BP diastolic 68–97; PULSE 58–79; RESP 16–18; TEMP 36.2–36.8; O2SAT 95–100; BMI 29.0
--- NOTE | 2023-04-29 07:10 | IR_ITS ---
APPROVED REPORT Patient Location: Outpatient Portfolio Manager: CHARBEL Corbett RT (R) PROCEDURES Left heart catheterization Left ventriculogram Selective coronary angiogram Drug-eluting stent deployment to the ostial proximal ramus intermedius Drug-eluting stent deployment to the proximal mid dominant circumflex artery INDICATION Coronary artery disease, High risk abnormal Myoview, Angina pectoris, Informed consent was obtained prior to the procedure. COMPLICATIONS None Estimated Blood Loss: Less than 10 mls TECHNIQUE One percent lidocaine used to anesthetize the right anterior aspect of the wrist. The right radial artery was accessed via the Seldinger technique. A 6 Uzbek sheath was placed in the right radial artery. 150 mg magnesium sulfate, 800 mcg of nitroglycerin, 1mg Lidocaine and 5000 U Heparin were given through the arterial sheath. The papa catheter was also used to perform left heart catheterization, left ventriculogram and selective coronary angiogram. At the end the diagnostic angiogram therapeutic heparin was administered giving a therapeutic ACT and a guide catheter was placed in left main artery followed by a Choice PT extra-support wire being placed in the ramus intermedius and one of the circumflex artery. A 3 mm x 18 mm Keaton frontier stent was deployed at 18 dru reducing the stenosis. There was a geographical mass and the stent did not adequately cover the ostium therefore 3 mm x 8 mm Mesa frontier stent was then placed ostially and deployed at 20 dru. A guide liner was then placed into the circumflex artery and a 3.5 mm balloon was used to predilate the stenosis in the circumflex artery. A 4 mm x 30 mm Keaton frontier stent was then placed in the proximal portion of the circumflex artery, which was proximal to the ramus intermedius, and then deployed at 20 dru. A 4.5 x 12 mm noncompliant balloon was then deployed at 20 dru in the midportion of the circumflex artery and proximally to post dilate. The wire was placed back into the ramus intermedius and a 3 mm x 6 mm compliant balloon was placed in the ostial proximal segment at 20 dru. Excellent angiographic results were obtained with SHE-3 flow being present in the vessel before and after the procedure. At the end of procedure the apparatus was removed the sheath was removed and hemostasis was achieved using TR banding patient was transferred to the postop holding in stable condition ANGIOGRAPHIC RESULTS The left main artery Normal The left anterior descending artery Has a long proximal 30 to 40% stenosis The circumflex artery Is a massively large dominant vessel gives rise to a large ramus intermedius which has an ostial 60 to 70% stenosis. Immediately distal to the ramus intermedius the circumflex artery has an eccentric 80% stenosis. Distally there are 10% luminal regularities The right coronary artery Vestigial normal The MENSAH ventriculogram reveals Normal 65% The left ventricular end-diastolic pressure 10 to 15 mmHg IMPRESSION Coronary artery disease as described above Successful reconstruction of a massively large dominant circumflex artery which bifurcated into a large ramus intermedius severe disease reduced to 0% with 3 drug-eluting stents in a bifurcating manner as described above Persistent angiographically moderate disease in the LAD which could potentially be hemodynamically significant Normal ejection fraction Normal left ventricular end-diastolic pressure PLAN 1. Dual antiplatelet therapy 2. LDL less than 55 to be achieved with high intensity statin 3. Avoidance of tobacco products 4. Maximize antianginal medications 5. Cardiac rehabilitation 6. I recommend repeat Sue Myoview in
[2023-04-29 08:47] LABS: Basophils % 0.4 % (0.1-2.0); Eosinophils # 0.4 K/mm3 (0.0-0.4); Eosinophils % 5.2 % (0.1-12.0); Hematocrit 43.9 % (42.0-52.0); Hemoglobin 14.1 g/dL (14.1-18.0); Lymphocytes # 2.4 K/mm3 (0.7-4.5); Mean Corpuscular HGB Conc 32.1 g/dL (31.8-35.4); Mean Corpuscular Hemoglobin 29.7 pg (27.0-31.2); Mean Corpuscular Volume 92.6 fl (80-94); Mean Platelet Volume 7.7 fl (7.4-10.4); Monocytes # 0.6 K/mm3 (0.1-1.0); Monocytes % 8.2 % (1.7-9.3); Neutrophils # 4.1 K/mm3 (1.8-7.8); Neutrophils % 54.3 % (37.0-80.0); Platelet Count 288 K/mm3 (142-424); Red Blood Count 4.74 M/mm3 (4.60-6.20); Red Cell Distribution Width 12.8 % (11.5-17.5); White Blood Count 7.6 K/mm3 (4.8-10.8)
[2023-04-29 08:55] LABS: Chloride 101 mmol/L (98-107); Potassium 3.7 mmoL/L (3.5-5.1); Sodium 138 mmol/L (136-145)
[2023-04-29 08:58] LABS: Anion Gap 13.7 mEq/L (5-15); Blood Urea Nitrogen 11 mg/dl (9-20); Carbon Dioxide 27 mmol/L (22.0-30.0); Creatinine Clearance Estimated 135 mL/min (50-200); Estimated Glomerular Filt Rate 89 ml/min (>60); GFR (African American) 108 ML/MIN (>60)
[2023-04-29 08:59] LABS: Calcium 8.9 mg/dl (8.4-10.2); Glucose 97 mg/dl (74-100)
[2023-04-29 09:00] LABS: INR 1.06 (0.9-1.1); Prothrombin Time 11.4 seconds (10.1-12.5)
--- NOTE | 2023-04-29 12:31 | SUR.PHASEII ---
called report to Madhavi GROSS in post op.
[2023-04-29 12:33] LABS: CATHL Activated Clotting Time 343 SEC (74-125)
--- NOTE | 2023-04-29 14:42 | HMH.PHACL ---
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
--- NOTE | 2023-04-29 15:07 | PC.NURSE ---
2ml of air has been removed every 15 mins starting at 1330 as directed. pt has no complaints.
--- NOTE | 2023-04-29 15:27 | PC.NURSE ---
discharge education and instructions given to pt whom stated understanding.
--- NOTE | 2023-04-29 15:28 | PC.NURSE ---
report given to tyrone brito rn
== END 2023-04-29 16:35 | disposition home or self-care (01) ==
PROVIDERS: PCP Nurse Practitioner Family; Visit Provider Internal Medicine
DX: I25.119 Atherosclerotic heart disease of native coronary artery with unspecified angina pectoris (principal); F17.210 Nicotine dependence, cigarettes, uncomplicated; I10 Essential (primary) hypertension; E78.5 Hyperlipidemia, unspecified; F10.10 Alcohol abuse, uncomplicated
CPT/HCPCS: 80048; 85025; 85347; 85610; 92928; 93458; 99152; 99153; C1725; C1769; C1876; C9600; J1644; Q9967

== ENCOUNTER → 2023-05-06 09:00 | Outpatient (CLI) | payer BC, SELFPAY ==
[2023-05-06 09:30] LABS: Basophils % 0.3 % (0.1-2.0); Eosinophils # 0.4 K/mm3 (0.0-0.4); Eosinophils % 2.8 % (0.1-12.0); Hematocrit 45.5 % (42.0-52.0); Hemoglobin 14.6 g/dL (14.1-18.0); Lymphocytes # 2.5 K/mm3 (0.7-4.5); Lymphocytes % 20.2 % (10-50); Mean Corpuscular HGB Conc 32.2 g/dL (31.8-35.4); Mean Corpuscular Hemoglobin 29.3 pg (27.0-31.2); Mean Corpuscular Volume 91.1 fl (80-94); Mean Platelet Volume 7.8 fl (7.4-10.4); Monocytes # 0.7 K/mm3 (0.1-1.0); Monocytes % 5.6 % (1.7-9.3); Neutrophils # 8.9 K/mm3 (1.8-7.8); Neutrophils % 71.1 % (37.0-80.0); Platelet Count 414 K/mm3 (142-424); Red Cell Distribution Width 12.4 % (11.5-17.5); White Blood Count 12.5 K/mm3 (4.8-10.8)
[2023-05-06 09:39] LABS: Alanine Aminotransferase 25 U/L (12-78); Albumin Level 4.5 g/dl (3.5-5.0); Alkaline Phosphatase 95 U/L (38-126); Anion Gap 16.1 mEq/L (5-15); Aspartate Amino Transferase 39 U/L (17-59); Bilirubin,Indirect 0.4 mg/dL (0.0-0.9); Bilirubin,Total 0.4 mg/dl (0.2-1.3); Bilirubin,Unconjugated 0.6 mg/dL (0.0-1.1); Blood Urea Nitrogen 9 mg/dl (9-20); Calcium 9.3 mg/dl (8.4-10.2); Carbon Dioxide 27 mmol/L (22.0-30.0); Chloride 98 mmol/L (98-107); Estimated Glomerular Filt Rate 89 ml/min (>60); GFR (African American) 108 ML/MIN (>60); Glucose 98 mg/dl (74-100); Magnesium 1.8 mg/dl (1.6-2.3); Potassium 4.1 mmoL/L (3.5-5.1); Sodium 137 mmol/L (136-145); Total Protein,Serum 8.1 g/dl (6.3-8.2)
[2023-05-06 10:10] LABS: Thyroid Stimulating Hormone 3.84 uIU/mL (0.465-4.68)
== END ==
PROVIDERS: Physician Assistant; Visit Provider Internal Medicine
DX: I25.10 Atherosclerotic heart disease of native coronary artery without angina pectoris (principal); I25.84 Coronary atherosclerosis due to calcified coronary lesion; I10 Essential (primary) hypertension; E78.2 Mixed hyperlipidemia; F10.10 Alcohol abuse, uncomplicated; F17.200 Nicotine dependence, unspecified, uncomplicated
CPT/HCPCS: 36415; 80048; 80076; 83735; 84439; 84443; 85025

== ENCOUNTER 2025-02-18 10:20 | Outpatient (CLI) | payer OTHER, SELFPAY ==
[2025-02-18 17:34] LABS: Basophils % 0.2 % (0.1-2.0); Eosinophils # 0.2 K/mm3 (0.0-0.4); Eosinophils % 1.5 % (0.1-12.0); Hematocrit 41.1 % (42.0-52.0); Hemoglobin 13.8 g/dL (14.1-18.0); Lymphocytes # 2.6 K/mm3 (0.7-4.5); Lymphocytes % 26.8 % (10-50); Mean Corpuscular HGB Conc 33.6 g/dL (31.8-35.4); Mean Corpuscular Hemoglobin 30.7 pg (27.0-31.2); Mean Corpuscular Volume 91.3 fl (80-94); Mean Platelet Volume 10.4 fl (7.4-10.4); Monocytes # 0.7 K/mm3 (0.1-1.0); Monocytes % 6.7 % (1.7-9.3); Neutrophils # 6.3 K/mm3 (1.8-7.8); Neutrophils % 64.5 % (37.0-80.0); Platelet Count 291 K/mm3 (142-424); Red Cell Distribution Width 12.2 % (11.5-17.5); White Blood Count 9.7 K/mm3 (4.8-10.8)
[2025-02-18 18:27] LABS: Alanine Aminotransferase 30 U/L (12-78); Albumin Level 4.8 g/dl (3.5-5.0); Albumin/Globulin Ratio 1.5 (1.1-1.8); Alkaline Phosphatase 60 U/L (38-126); Anion Gap 13.6 mEq/L (5-15); Aspartate Amino Transferase 42 U/L (17-59); Bilirubin,Total 0.7 mg/dl (0.2-1.3); Blood Urea Nitrogen 20 mg/dl (9-20); Calcium 10.1 mg/dl (8.4-10.2); Carbon Dioxide 30 mmol/L (22.0-30.0); Chloride 97 mmol/L (98-107); Chol/HDL Ratio 2.9 (1-3.5); Cholesterol 167 mg/dl (140-200); Estimated Glomerular Filt Rate 89 ml/min (>60); GFR (African American) 107 ML/MIN (>60); Globulin 3.3 g/dL (1.3-3.2); Glucose 92 mg/dl (74-100); HDL Cholesterol 58 mg/dl (40-60); Potassium 4.6 mmoL/L (3.5-5.1); Sodium 136 mmol/L (136-145); Total Protein,Serum 8.1 g/dl (6.3-8.2); Triglycerides 99 mg/dl (30-150); VLDL Cholesterol 20 mg/dL (0-40)
[2025-02-18 18:48] LABS: Direct LDL Cholesterol 70.41 mg/dL (100-129)
[2025-02-18 19:11] LABS: Prostate Specific Ag Screen 0.4 ng/ml (0.0-4.0); Thyroid Stimulating Hormone 2.21 uIU/mL (0.465-4.68)
[2025-02-18 19:30] LABS: Vitamin B12 986 pg/mL (239-931)
[2025-02-18 19:38] LABS: Folate > 20.00 ng/mL
[2025-02-18 19:41] LABS: HIV Combo NEGATIVE (Negative)
[2025-02-18 20:04] LABS: Hemoglobin A1C 5.4 % (4.0-6.0)
[2025-02-18 20:07] LABS: Hepatitis C Ab Qual. W/ RFX NEGATIVE (Negative)
[2025-02-18 21:53] LABS: 25-OH Vitamin D, Total 64.2 ng/mL (30-100)
== END 2025-02-18 23:59 | disposition home or self-care (01) ==
LOC: LAB.DROPOF 02-19 14:03
PROVIDERS: PCP Family Medicine; Visit Provider Family Medicine
DX: E78.2 Mixed hyperlipidemia (principal); I10 Essential (primary) hypertension; E03.9 Hypothyroidism, unspecified; Z12.5 Encounter for screening for malignant neoplasm of prostate; Z13.1 Encounter for screening for diabetes mellitus
CPT/HCPCS: 80053; 80061; 82306; 82607; 82746; 83036; 84443; 85025; 86803; 87389; G0103

== ENCOUNTER 2025-09-26 10:54 | Outpatient (CLI) | payer OTHER, SELFPAY ==
--- OUTSIDE RECORDS SUMMARY | 2025-07-30 07:45 | XMS_ITS | Encounter Summary ---
Author Organization Healthcare Address [address] 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 Never 06/28/2025 Q2: How many drinks containi ng alcohol do you have on a typical day when you are drinking? Patient does not drink Q3: How often do you have si x or more drinks on one occasion? Never 06/28/2025 Sex and Gender Information Value Date Recorded Sex Assigned at Not on file Legal Sex Male 8:28 PM EDT Gender Identity Male 06/18/2025 11:51 AM EDT Sexual Orientation Not on file documented as of this encounter Last Filed Vital Signs Vital Sign Reading Time Taken Comments Blood Pressure 127/69 07/30/2025 8:48 AM EDT Pulse 72 07/30/2025 8:48 AM EDT Temperature - - Respiratory Rate - - Oxygen Saturation 95% 07/30/2025 8:48 AM EDT Inhaled Oxygen Concentration - - Weight 94.3 kg (207 lb 14.3 oz) 07/30/2025 8:48 AM EDT Height - - Body Mass Index 28.59 07/25/2025 2:13 PM EDT documented in this encounter Miscellaneous Notes * H&P - Daniel Velazquez MD - 07/30/2025 8:45 AM EDT Images from the original note were not included. [facility] Department of Surgery Division of Plastic and Reconstructive Surgery Plastic Surgery Clinic Note Chief Complaint: Mandibular reconstruction HISTORY OF PRESENT ILLNESS Carlito Perez is a 54 y.o. 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 Santana after Dr. Nguyễn JETT lesion excision. He was seen in consultation on 07/09/2025. Surgery is planned for August 2025. He reports the lesions were first noticed several years ago. He reports he continues to smoke. The patient denies any lower extremity trauma. No prior surgeries to the lower extremities. Of note, he does have a history of a traumatic intubation requiring a tracheostomy. Patient at baseline is very mobile and active. He is wondering whether or not removal of the bone will affect his mobility. Patient continues to breath well on room air but his voice is hoarse. He feels well overall today. Discussed if he wanted his sister, a nurse, to receive updates on his care she would be added to his list when he was admitted. Discussed 5-7 days hospitalization pending recovery. 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 HLD (hyperlipidemia) HTN (hypertension) Hypothyroidism Reflux gastritis Substance abuse 1988 PAST SURGICAL HISTORY: Past Surgical History: Procedure Laterality Date APPENDECTOMY 1979 CARDIOTHORACIC PROCEDURE stents CAROTID STENT 04/26/2023 COLONOSCOPY 2023 CORONARY STENT PLACEMENT [id number] ORTHOPEDIC SURGERY repair to clavical OTHER SURGICAL HISTORY appendectomy, vasectomy THROAT SURGERY repair vocal chords MEDICATIONS: Current Medications[1] HOME: AM: levothyroxine, atorvastatin PM: ASA 81 mg, metoprolol xl 50mg, ramipril 2.5mg ALLERGIES: Allergies[2] Benadryl: sensitive, doses in the past have made him somnolent for days SOCIAL HISTORY: Tobacco: Current use, quit chewing tobacco, continues to smoke 1ppd Alcohol: Former abuse Illicits: Denies Social History Socioeconomic History Marital status: Spouse name: Not on file Number of children: Not on file Years of education: Not on file Highest education level: Not on file Occupational History Not on file Tobacco Use Smoking status: Every Day Current packs/day: 1.00 Average packs/day: 1 pack/day for 40.7 years (40.7 ttl pk-yrs) Types: Cigarettes Start date: 1984 Passive exposure: Current Smokeless tobacco: Current Types: Snuff, Chew Vaping Use Vaping status: Never Used Substance and Sexual Activity Alcohol use: Never Drug use: Never Sexual activity: Not on file Other Topics Concern Not on file Social History Narrative Not on file Social Drivers of Health Financial Resource Strain: Not on file Food Insecurity: Not on file Transportation Needs: Not on file Physical Activity: Not on file Stress: Not on file Social Connections: Not on file Intimate Partner Violence: Not on file Housing Stability: Not on file OBJECTIVE There were no vitals filed for this visit. PHYSICAL EXAM Gen: Well nourished, in no acute distress. Head: Normocephalic. Atraumatic Eyes: PERRL, EOMI, no conjuctival injection. Nose: No edema, no rhinorrhea. Throat: anterior gingivial lesion, tongue lesion Neck: Supple, trachea midline. Prior tracheostomy scar present. Decrease in mandibular swelling Heart: WWP skin Lungs: Symmetric chest rise, Unlabored respirations bilaterally Abdomen: Soft, nontender to palpation. Extremities: no wounds on lower extremities. Neurologic: AAOx3, no evidence of focal deficits Psych: Mood appropriate to situation and affect congruent IMAGIN07/25/2025: reviewed CT Neck soft tissue 07/03/2025: reviewed CTA A/P with runoff - three vessel runoff Assessment and Plan ASSESSMENT Carlito Perez is a 54 y.o. 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 We discussed plan for free fibula reconstruction following resection of the primary tumors by Dr. Adrian's team. Infusions have decreased size of the intra-oral tumor; patient in agreement about surgical plan. We discussed with the patient that we will plan for harvest of the right fibula with an associated skin paddle in his [place] blood supply. This will then be harvested and transferred to the left neckfor anastomosis to the facial vessels or other surrounding suitable recipients. We discussed that following the surgery the patient will be in the ICU for flap monitoring. Patient understands that hewill also have a feeding tube following surgery and will be required to receive his nutrition solely through the feeding for at least 2 weeks postoperatively. Risks of the procedure include flap loss, failure of reconstruction, nonunion or malunion, delayed wound healing. We have recommended that the patient abstain from smoking in anticipation of surgicalintervention. PLAN - 08/19/2025 Dr. Santana - Left mandibular reconstruction with free fibula flap; Dr. Adrian: excision mandibular lesion, neck dissection, glossectomy - Bone plates ordered - Consent to be signed day of procedure - Encouraged nicotine minimization - To see rn outpatient surgery today. - All questions regarding pre-op, intra-op, and lamar-op answered. Daniel Velazquez MD Plastic and Reconstructive Surgery [1] Current Outpatient Medications Medication Sig Dispense Refill aspirin 81 MG EC tablet Take 1 tablet by mouth daily. ASPIRIN 81 PO atorvastatin (Lipitor) 20 MG tablet Take 1 tablet by mouth daily. diphenhydrAMINE (Benadryl) 50 MG tablet Take 1 tablet by mouth 1 time as needed (1 hour prior to contrast) for up to 1 dose. 1 tablet 0 levothyroxine (Synthroid, Levoxyl) 50 MCG tablet Take 1 tablet by mouth daily before breakfast. Metoprolol Succinate 50 MG capsule extended-release 24 hour sprinkle metoprolol succinate XL (Toprol-XL) 50 MG 24 hr tablet Take 1 tablet by mouth daily. Multiple Vitamin (MULTIVITAMIN ADULT PO) Multiple Vitamin (multivitamin) tablet Take 1 tablet by mouth daily. predniSONE (Deltasone) 50 MG tablet Take 1 tablet by mouth as needed (Prior to contrast injection).To be given at 13 hours, 7 hours, and 1 hour BEFORE contrast injection. Exam scheduled for 08/09/25 (Date/Time). 3 tablet 0 prochlorperazine (Compazine) 10 MG tablet Take 1 tablet by mouth every 6 hours as needed for nauseaor vomiting. 30 tablet 5 ramipril (Altace) 2.5 MG capsule Take 1 capsule by mouth daily. ramipril (Altace) 2.5 MG capsule No current facility-administered medications for this visit. [2] Allergies Allergen Reactions Shellfish Allergy Anaphylaxis Penicillins Unknown - Patient states they do not know rxn details Cosigned by Marvin Santana MD at 07/31/2025 9:17 AM EDT Associated attestation - Marvin Santana MD - 07/31/2025 9:17 AM EDT I saw and evaluated the patient with the resident/fellow. I discussed the case with the resident/fellow and agree with the findings and plan as documented. We again discussed our plan for left mandibular reconstruction with a right free fibula flap. I discussed risks including donor site foot drop, damage to nerves/arteries, weakness of donor leg, nonunion and malunion, hardware failure, flap failure, need for return to the OR for anastomotic revision, risk of anesthesia, risk of , need for additional procedures, wound healing issues, infection. Patient voiced understanding and desires to proceed as planned. documented in this encounter Plan of Treatment Upcoming Encounters Date Type Department Care Team (Late st Contact Info) Description 10/08/2025 9:15 AM EST Office Visit [facility] Plastic & Reconstructive Surgery [facility] [place] [phone] Marvin Santana MD [address] [phone] 10/08/2025 10:30 AM EST Office Visit [facility] real estate representative [facility] [address] [place] [address] Alvaro Adrian DMD, [address] [facility] [address] [place] [phone] documented as of this encounter Visit Diagnoses Diagnosis 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 Malignant neoplasm of floor of mouth, part unspecified documented in this encounter Additional Health Concerns Assessment Noted Time A fall risk assessment has been complete d for the patient 07/30/2025 8:49 AM EDT A Body Mass Index follow-up plan has been documented for the patient 07/31/2025 9:17 AM EDT documented as of this encounter Care Teams [employer] Lead Man Relationship Specialty Start Date End Date Christina Arteaga APRN [address] [place] [id number] PCP - General 06/20/25 Maxwell White DMD [address] [place] [address] [facility] [address] [place] [address] Referring Physician 06/24/25 documented as of this encounter
--- OUTSIDE RECORDS SUMMARY | 2025-08-07 13:30 | XMS_ITS | Encounter Summary ---
Author Organization Healthcare Address [address] [place] [address] Care Team Providers Care Clicking Machine Operator Name Role Phone Christina Arteaga APRN Primary Care Provider [phone] Maxwell White DMD Unavailable [phone] Encounter Details Date Type Department Care Team (Late st Contact Info) Description 08/07/2025 2:30 PM EDT Pre-Admission Testing [facility] [address], [address] [place] [address] Anesthesia Record Procedure Summary Procedure Name Responsible Anesthesiologist Anesthesia Start Time Anesthesia Stop Time Left mandibular reconstruction with right free fibula, complex closure of oral wound, (Bilateral) Kenneth Benavides, ENDOSCOPIC TECHNICIAN 08/19/25 0817 08/19/25 1823 Events Date Time Event Comment 08/19/2025 0817 An Start The patient was reevaluated immediately before sedation and remains eligible for anesthesia plan. 0820 In Room 0820 An Start Data 0825 An Induction The patient was reevaluated immediately before moderate or deep sedation use and before anesthesia induction. 0827 An Intubation 0834 Anesthesia Ready 0853 Proc Start 0905 David Surgical airway by OMFS. 7.0 reinforced ETT thru trach stoma. 0945 An Tourn Inflated 1100 An Surgeon on Cuff 1134 An Tourn Deflated 1745 David Reinforced ETT removed from trach stoma. #6 Shiley cuffed trach placed. 1754 Proc Fin 1808 an stop data 1811 Out of Room 1817 Handoff to Receiving I compl eted my handoff to the receiving clinician during which we: 1. Identified the patient 2. Identified the responsible provider 3. Reviewed the pertinent medical history 4. Discussed the surgical course 5. Reviewed intra-op anesthesia management and issues during anesthesia 6. Set expectations for post-procedure period 7. Allowed opportunity for questions and acknowledgement of understanding. 1822 An Stop Meds * Agents No agents on file. * Blood No blood administrations on file. Lines, Drains, and Airways Type Details Placement Removal Wound 08/19/25; 0945; N; Y es; Surgical; Pretibial; Right 08/19/25 0945 by Stacey Faulkner RN Wound 08/19/25; 0945; N; Y es; Surgical; Neck; Mid 08/19/25 0945 by Stacey Faulkner RN Wound 08/19/25; 0945; N; Y es; Surgical; Mouth 08/19/25 0945 by Stacey Faulkner RN Negative Pressure Wound Therapy 08/19/25; 1541; N; 08/19/25; MD Max; Yes; Surgical, Flap; Leg; Anterior, Lower, Right 08/19/25 154 by Stacey Faulkner RN Surgical Airway Placement Date: 05/08; Placement Time: 172; Type: Tracheostomy; Brand: Shiley; Style: Cuffed; Size(mm): 6 08/19/25 172 by Bob Alfonso RN Feeding Tube Placement Date: 05/08; Placement Time: 175; Inserted by: other in OR; Location: Left nare 08/19/25 175 by Bob Alfonso RN Peripheral IV Placement Date: 05/08; Placement Time: 07; Catheter Size: 18 G; Orientation: Right; Location: Antecubital; Site Prep: Chlorhexidine ; Local Anesth: None; Technique: Anatomical landmarks; Inserted by: Mai Mayberry RN; Insertion Attempts: 2; Patient Tolerance: Tolerated well; Removal Date: 08/30/25; Removal Time: 154; Removal Reason: Discharge 08/19/25 0704 by Betsy Mayberry RN 08/30/25 154 by Kris Douglas RN ETT Placement Date: 05/08; Placement Time: 08 (created via procedure documentation); Mask Ventilation: 1; Technique: Direct laryngoscopy; Type: ETT - single; Single Lumen Tube Size: 6.5 mm; Cuffed: Yes; Laryngoscope: Qiana; Blade Size: 3; Location: Oral; Grade View: Grade IIa (Deviated to the right); Insertion Attempts: 1; Placement Verification: Auscultation, Capnometry; Airway Comments: Atraumatic. No change to dentition. ; Placed by: ARLENE; Removal Date: 08/19/25; Removal Time: 19008/19/25 08 by Kenneth Benavides CRNA 08/19/25 190 by Nely Cardoza RN Peripheral IV Placement Date: 05/08; Placement Time: 08; Catheter Size: 18 G; Orientation: Left; Location: Hand; Site Prep: Alcohol; Insertion Attempts: 1; Removal Date: 08/30/25; Removal Time: 154; Removal Reason: Discharge 08/19/25 0829 by Kenneth Benavides CRNA 08/30/25 154 by Kris Douglas RN Urethral Catheter Placement Date: 05/08; Placement Time: 08; Inserted by: Stacey Faulkner RN; Type: Temperature probe, Non-latex; Size: 16 Fr.; Balloon Size: 10 mL; Urine Returned: Yes; Removal Date: 08/20/25; Removal Time: 1524; Removal Reason: Per order 08/19/25 0830 by Stacey Faulkner RN 08/20/25 1524 by Lizy Amador Arterial Line Placement Date: 05/08; Placement Time: 0839 (created via procedure documentation); Size: 20 G; Orientation: Right; Location: Radial; Inserted by: ARLENE; Securement: Taped; Patient Tolerance: Tolerated well; Removal Date: 08/20/25; Removal Time: 0955; Removal Reason: Per order 08/19/25 0839 by Kenneth Benavides CRNA 08/20/25 0955 by Lizy Amador Surgical Airway Placement Date: 05/08; Placement Time: 0855; Placed by: Attending; Type: Tracheostomy; Brand: Adult; Removal Date: 08/19/25; Removal Time: 1104 08/19/25 0855 by Stacey Faulkner RN 08/19/25 1104 by Stacey Faulkner RN Peripheral IV Placement Date: 05/08; Placement Time: 934; Catheter Size: 16 G; Orientation: Left; Location: Foot; Site Prep: Alcohol; Insertion Attempts: 1; Removal Date: 08/26/25; Removal Time: 020; Removal Reason: Per patient/family request 08/19/25 0935 by Kenneth Benavides CRNA 08/26/25 0200 by James Juan RN Closed/Suction Drain 08/19/25; 1650; No; Anterior, Right; Neck; Bulb; 15 Fr. 08/19/25 1650 by Stacey Faulkner RN 08/28/25 1735 by Sergio Melo RN Flap/Graft 08/19/25; 1817; Ante rior, Left, Lower; 08/28/25; 1735 (not in place upon arrival to pacu) 08/19/25 1817 by oBb Alfonso RN 08/28/25 1735 by Sergio Melo RN documented in this encounter Social History Tobacco Use Types Packs/Day Years Used Date Smoking Tobacco: Every Day Cigarettes 1 40.9 Started: 1984 Passive Smoke Exposure: Current Smokeless Tobacco: Former Snuff, Chew Tobacco Cessation:Ready to Q uit: [...] on file documented as of this encounter Miscellaneous Notes * PAT Evaluation Note - Salima Polanco APRN - 08/07/2025 2:30 PM EDT HPI Carlito Perez is a 54 y.o. 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, CAD (s/p 4 stents in 2022 at [facility]), prior traumatic intubation with one of his vocal cords removed, requiring tracheostomy, tachycardia, HLD, hypothyroidism, TUD, prior alcohol use (18+ beers/day, stopped 2-3 years ago) Past Medical History[1] Family History[2] Social History[3] Surgical History[4] Allergies[5] MEDICATIONS: Current Medications[6] ROS Anesthesia: Date of last anesthetic: Last GA ~ 30 yr ago for orthopedic surgeries following [facility] 2022 Does not have a history of anesthetic complications, malignant hyperthermia, obstructive sleep apnea and PONV. Anesthesia ROS additional comments: prior traumatic intubation with one of his vocal cords removed, requiring tracheostomy ~ 30 yr ago Cardiovascular: CAD (stents x 4 in 2022) and hyperlipidemia. Does not have CHF, dyspnea, dysrhythmias, murmur, pacemaker, past UT or syncope. hypertension: Does not have chest pain. Cardio additional comments: Exercise Tolerance: 2 flights of stairs Walks ~ 1 mile every other. Goes to gym 3 x weekly. Weights, light cardio Currently working. 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 Left Ventricle: The left ventricular systolic function is normal. The LVEF is visually estimatedat 55 - 60%. The diastolic function is normal. The left ventricular filling pressure is normal. ?? Right Ventricle: The right ventricle is normal in size. The right ventricular systolic function is normal. The spectral Doppler envelope of TR is not adequate for calculating the right ventricularsystolic pressure (RVSP). Based upon other 2D and Doppler features, the RVSP is probably normal or at most mildly elevated. ?? All cardiac valves were reasonably well visualized with 2D and/or color flow Doppler and there was no significant valve regurgitation or stenosis seen. ?? Pericardium: No pericardial effusion. ?? There is no recent study available for direct znot-ku-uize comparison. . Respiratory: Does not have home oxygen. Patient has no dyspnea.no asthma: COPD: breathing at baseline.Has not had an upper respiratory infection in last 30 days. Has not had bronchitis in the last 30 days, pneumonia in the last 30 days or COVID in the last 30 days. HEENT: chipped teeth, loose teeth and missing teeth.Does not have difficulty swallowing.Does not have hearing loss. Neurological: no seizures: Did not have a cerebrovascular accident.Does not have TIA. Musculoskeletal: arthritis. Does not have cervical spine limited mobility. Gastrointestinal: GERD (prn omeprazole. takes prn if eats spicy foods): well controlled.Does not have cirrhosis or hepatitis. Genitourinary: Does not have chronic renal disease.renal calculi. Does not have renal disease. Hematological/Lymphatic: History of no DVT. History of no pulmonary embolism. Not in a hypercoagulable state. history of chemotherapy (Keytruda. Last dose on 07/25/25) Does not have HIV, MRSA or tuberculosis. Hem/Lymph ROS additional comments: ASA 81mg daily Endocrine/Metabolic: does not have diabetes mellitus. thyroid disorder (hypothyroid on levothyroxine). Lab Results Component Value Date WBC 9.66 07/25/2025 HGB 12.7 (L) 07/25/2025 HCT 37.5 (L) 07/25/2025 MCV 92 07/25/2025 PLT 293 07/25/2025 Lab Results Component Value Date GLUCOSE 117 (H) 07/25/2025 BUN 15 07/25/2025 CREATININE 0.88 07/25/2025 BCR 17 07/25/2025 NA 137 07/25/2025 K 4.1 07/25/2025 CL 102 07/25/2025 CO2 21 (L) 07/25/2025 ALBUMIN 4.4 07/25/2025 ALKPHOS 55 07/25/2025 BILITOT 0.3 07/25/2025 Visit Vitals Smoking Status Every Day Physical Exam Anesthesia Plan ASA 3 Anesthesia technique(s) discussed with the patient/family: general Comment: MONICA phone screen Salima Polanco APRN [1] Past Medical History: Diagnosis Date Adverse effect of anesthesia allergy to shellfish, penicillan CAD (coronary artery disease) Cancer ([facility] [id number] Coronary artery calcification Dental disease chipped teeth, jony block for vocal chord damage Fractures clavical surgery GERD (gastroesophageal reflux disease) 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 HLD (hyperlipidemia) HTN (hypertension) Hypothyroidism Reflux gastritis Substance abuse 1988 [2] Family History Problem Relation Name Age of Onset Lung cancer Maternal Grandmother Prostate cancer Maternal Grandfather [3] Social History Tobacco Use Smoking status: Every Day Current packs/day: 1.00 Average packs/day: 1 pack/day for 40.7 years (40.7 ttl pk-yrs) Types: Cigarettes Start date: 1984 Passive exposure: Current Smokeless tobacco: Current Types: Snuff, Chew Vaping Use Vaping status: Never Used Substance Use Topics Alcohol use: Never Drug use: Never [4] Past Surgical History: Procedure Laterality Date APPENDECTOMY 1979 CARDIOTHORACIC PROCEDURE stents CAROTID STENT 04/26/2023 COLONOSCOPY 2023 CORONARY STENT PLACEMENT [id number] ORTHOPEDIC SURGERY repair to clavical OTHER SURGICAL HISTORY appendectomy, vasectomy THROAT SURGERY repair vocal chords [5] Allergies Allergen Reactions Shellfish Allergy Anaphylaxis Penicillins Unknown - Patient states they do not know rxn details [6] Current Outpatient Medications: aspirin, Take 1 tablet by mouth daily. ASPIRIN 81 PO, atorvastatin, Take 1 tablet by mouth daily. diphenhydrAMINE, Take 1 tablet by mouth 1 time as needed (1 hour prior to contrast) for up to 1 dose. levothyroxine, Take 1 tablet by mouth daily before breakfast. Metoprolol Succinate, metoprolol succinate XL, Take 1 tablet by mouth daily. Multiple Vitamin (MULTIVITAMIN ADULT PO), multivitamin, Take 1 tablet by mouth daily. predniSONE, Take 1 tablet by mouth as needed (Prior to contrast injection). To be given at 13 hours, 7 hours, and 1 hour BEFORE contrast injection. Exam scheduled for 08/09/25 (Date/Time). prochlorperazine, Take 1 tablet by mouth every 6 hours as needed for nausea or vomiting. ramipril, Take 1 capsule by mouth daily. ramipril, * Preprocedure Instructions - Salima Polanco APRN - 08/07/2025 2:30 PM EDT Home Medication Instructions Current Medications Medication Instructions aspirin 81 MG EC tablet Take morning of surgery atorvastatin (Lipitor) 20 MG tablet Take night before surgery ibuprofen 200 MG tablet Hold 7 days before surgery levothyroxine (Synthroid, Levoxyl) 50 MCG tablet Take morning of surgery metoprolol succinate XL (Toprol-XL) 50 MG 24 hr tablet Take night before surgery Multiple Vitamin (multivitamin) tablet Hold day of surgery omeprazole (PriLOSEC) [address] capsule Take morning of surgery prochlorperazine (Compazine) 10 MG tablet Take as needed ramipril (Altace) 2.5 MG capsule Take night before surgery General Preoperative Instructions You will be called the business day before surgery with your arrival time No food after midnight the night before surgery. After midnight, you can have clear liquids only (water, apple juice, Gatorade) up to 2 hours prior to arrival. No soda, coffee or tea. No red, blue or purple drinks. No alcohol or smoking prior to surgery Arrive on time to avoid delays Parking/Registration procedure explained You MUST have a responsible adult available for transport to and from hospital Visitation policy for the day of surgery reviewed Bring insurance card, photo ID, along with power of assistant city attorney, guardianship or advanced directives if applicable Do not bring money, jewelry or other valuables Hibiclens bathing instructions reviewed if applicable Notify surgeon of fever, illness, any changes or if you decide not to have surgery Diabetes Instructions (If applicable) Take diabetes medication as instructed You may have up to 4 ounces of apple juice 2 hours prior to arrival for surgery for low glucose documented in this encounter Plan of Treatment Upcoming Encounters Date Type Department Care Team (Late st Contact Info) Description 10/08/2025 9:15 AM EST Office Visit [facility] [address] [place] [address] Marvin Santana MD [address] [place] [phone] 10/08/2025 10:30 AM EST Office Visit [facility] [address] [place] [address] Alvaro Adrian DMD, [address] [place] [address] documented as of this encounter Visit Diagnoses Not on filedocumented in this encounter Additional Health Concerns Assessment Noted Time A fall risk assessment has been complete d for the patient 07/30/2025 8:49 AM EDT A Body Mass Index follow-up plan has been documented for the patient 07/31/2025 9:17 AM EDT documented as of this encounter Care Teams Clicking Machine Operator Relationship Specialty Start Date End Date Christina Arteaga APRN [address] [place] [id number] PCP - General 06/20/25 Maxwell White DMD [facility] [address] [place] [address] Referring Physician 06/24/25 documented as of this encounter
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
--- OUTSIDE RECORDS SUMMARY | 2025-08-19 04:29 | XMS_ITS | Encounter Summary ---
Author Organization [facility] Address [address] [place] [address] Care Team Providers Care Desktop Publishing Specialist Name Role Phone Chandler Christina TERE Primary Care Provider [phone] Maxwell White DMD Unavailable [phone] Reason for Referral * Consultation (Urgent) - Closed Specialty Diagnoses / Procedures Referred By Fausto honeycutt Referred To Contact Plastic Surgery Diagnoses Wound of right lower extremity, initial encounter Alvaro Adrian DMD, MD [address] [facility] [place] [address] [place] [address] Phone: tel: fax: Referral ID Status Reason Start Date Expiration Date V isits Requested Visits Authorized [id number] Closed Specialty Services Required 08/30/2025 03/01/2027 [address] Santana * Home Health (Routine) - Authorized Specialty Diagnoses / Procedures Referred By Fausto t Referred To Contact Home Health Services / Home Infusion and Injection Services Diagnoses Floor of mouth squamous cell carcinoma Alvaro Adrian DMD, MD [address] [facility] [place] [address] [place] [address] Phone: tel: fax: Referral ID Status Reason Start Date Expiration Date Visits Requested Visits Authorized [id number] Authorized Specialty Services Required 02/22/2027 999 999 * Home Health (Routine) - Authorized Specialty Diagnoses / Procedures Referred By Fausto honeycutt Referred To Contact Home Health Services Diagnoses Floor of mouth squamous cell carcinoma Alvaro Adrian DMD, MD [address] [address] Phone: tel: fax: Referral ID Status Reason Start Date Expiration Date Visits Requested Visits Authorized [id number] Authorized Specialty Services Required 08/22/2025 02/21/2027 999 999 Reason for Visit * Auth/Cert (Routine) Specialty Diagnoses / Procedures Referred By Fausto honeycutt Referred To Contact 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 [C04.9] Procedures TN BONE-SKIN GRAFT, MICROVASCULAR TN RECMPL WND HEAD,FAC,HAND 2.6-7.5 CM TN REPR,FACE,GENITAL,HAND,FT+5 CMCM/< TN LAYR CLOS WND REST BODY 12.6-20 CM TN RECONSTR MANDIBLE,BONE PLATE TN REMV MALIG JAW BONE RADICAL TN REMOVAL NODES, NECK,CERV CMPLT TN PART REMOVAL TONGUE,<1/2 TN BONE-SKIN GRAFT, MICROVASCULAR TN RECONSTR MANDIBLE,BONE PLATE TN RECMPL WND HEAD,FAC,HAND 2.6-7.5 CM TN REPR,FACE,GENITAL,HAND,FT+5 CMCM/< TN LAYR CLOS WND REST BODY 12.6-20 CM TN TRACHEOSTOMY, PLANNED Left mandibular reconstruction with right [...] GLOSSECTOMY Marvin Santana MD [address] [place] [address] Phone: tel: fax: [facility] OPERATING ROOM [address] [place] [address] Phone: tel: Referral ID Status Reason Start Date Expiration Date Visits Re quested Visits Authorized [id number] 1 1 Encounter Details Date Type Department Care Team (Late st Contact Info) Description 08/19/2025 5:29 AM EDT - 08/30/2025 3:53 PM EDT Hospital Encounter [facility] Inpatient [address] [place] [id number] Marvin Santana MD [address] [place] [phone] Alvaro Adrian DMD, MD [address] [facility] [place] [address] [place] [address] Squamous cell carcinoma of mandible [...] any time in the past 12 [facility], were you homeless or living in a [facility] (including now)? No 08/21/2025 [facility] Utilities Answer Date Recorded In the past [...] Month) No 08/29/2025 8:00 PM EDT Carly Preez RN 6. Suicidal Behavior (Lifetime) No 8:00 PM EDT Carly Perez RN documented as of this encounter Discharge Instructions * Discharge Instructions* Rusty Melendrez DDS - 08/29/2025 6:50 AM EDT [facility] Oral & Maxillofacial Surgery Cancer Surgery Discharge [...] on 09/06/[address] Adrian. Address/Phone Number: [facility] [address] [facility] [place] [address] Thank you for the opportunity to allow us to participate in your care. Please do not hesitate to contact our office if you have any questions or concerns. documented in this encounter Medications at Time of Discharge aspirin (Ecotrin) 325 MG EC tablet Take 1 tablet by mouth daily. 30 tablet 5 09/29/20 25 atorvastatin (Lipitor) 20 MG tablet Take 1 [...] 14 days. 56 tablet 5 09/13/20 25 oxyCODONE (Roxicodone) 5 MG immediate release [...] Note Carlito Perez 54 y.o. male CSN: [id number] Admission: 08/19/2025 5:29 AM Primary Problem: Floor of mouth squamous cell carcinoma Primary University Administrative Assistant: Primary Caregiver: Self Assistance Available at Discharge: Availability of Care Givers (#Hours): 24 hours Family/University Administrative Assistant(s) Willingness Assessed to care for patient at home: Yes Family/University Administrative Assistant(s) Readiness Assessed to care for patient at home: Yes Housing Circumstances-Z Codes: Housing Circumstances (select all that apply): None Applicable Patient Referred to Financial or Community Resources: Discharge Facility/Level of Care Needs: Discharge Facility/Level of Care Needs: 8-Zjxv-Kgebsy Care [facility] Patient's Choice of Community Agency(s): Patient/Family Anticipated Services at Transition: Patient/Family Anticipated Services at Transition: child support case officer DME/Equipment Needed after Discharge: Equipment Currently Used at Home: none Equipment Needed After Discharge: colostomy/ostomy supplies, walker, rolling, other (see comments) (wound vac) Readmission Within the Last 30 Days: Readmission Within the Last 30 Days: no previous admission in last 30 days Medicare Documentation: Follow-up: Alvaro Adrian DMD, MD [address] [facility] [id number] Wound ikh-Zylfqrfbr-Fbla Follow up [facility] Address: [facility] [place] [address] Follow up [facility] and supplies. [facility] Follow up [facility] Address: [address] [place], [address] Follow up Rolling walker, please keep equipment [...] Medically readyto discharge today. Accepted by above [facility]. They will call patient to arrange a home visit. Acceptedby above infusion pharmacy. They will deliver bedside and bedside nurse will provide a teaching session with patient/family. Patient agrees to dc home today and agrees with above DC plan. In??MARIANELA Bass, activity manager * Discharge Summary - Rusty Melendrez, DDS - 08/30/2025 12:45 PM EDT Images from the original note were not included. Hospitalization Admit Date/Time: 08/19/2025 5:29 AM Admitting Attending: Marvin Santana Discharge Date: 08/30/25 Discharge Attending Physician: Alvaro Adrian DMD PCP name and Address: ChandlerChristina silva, PLANT CHANGER [address] [facility] [address] Referring provider name and address: Alvaro Adrian DMD, [address] [facility] [address] [place] [address] Chief Concern, Brief History of Present Illness, [...] clinic with Dr. Adrian on 09/06/25 at [facility] for follow-up. Surgeries and Procedures [...] Your Medications These medications were sent to [facility] [place], [place] - [address], [facility] [id number] acetaminophen 500 MG tablet aspirin 325 MG [...] cell carcinoma Squamous cell carcinoma of mandible [facility] Oral & Maxillofacial Surgery Cancer Surgery Discharge [...] on 09/06/[address] Adrian. Address/Phone Number: [facility] [address] [facility] [place] [address] Thank you for the opportunity to allow us to participate in your care. Please do not hesitate to contact our office if you have any questions or concerns. Outpatient Follow-Up Future Appointments Date Time Provider Department Center 09/03/2025 8:15 AM [facility] 09/06/2025 1:00 PM [facility] DMD, MD [facility] Pertinent Physical Exam At Time of [...] preparation for this discharge. Rusty Melendrez DDS [facility], PGY-1 Cosigned by Alvaro Adrian DMD, MD [...] Review Outcome: Ongoing, Progressing Flowsheets Taken 08/29/2025 0411 by Carly Perez Plan of Care Reviewed [...] Note Carlito Perez 54 y.o. male CSN: [id number] Admission: 08/19/2025 5:29 AM Primary Problem: Floor [...] Note Carlito Perez 54 y.o. 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 HLD (hyperlipidemia) HTN (hypertension) Hypothyroidism Reflux gastritis Substance abuse 1988 [2] Past Surgical History: Procedure Laterality Date APPENDECTOMY 1979 CARDIOTHORACIC PROCEDURE stents CAROTID STENT 04/26/2023 COLONOSCOPY 2023 CORONARY STENT PLACEMENT [id number] ORTHOPEDIC SURGERY repair to clavical OTHER SURGICAL [...] Care Family/Caregiver Present: Yes Family/Caregiver: (Adult Sister) Social Media Editor: Not Applicable Presentation Oxygen Therapy: Supplemental oxygen [...] Mobility Bed Mobility Exam: Scooting/Bridging Level of [place]: Stand-by assist (anteriorly to EOB) Physical/Nonphysical Assist: Set-up required, Supervision, Verbal Cues Bed Mobility Exam: Supine to Sit Level of [place]: Stand-by assist (to the left) Physical/Nonphysical Assist: Set-up required, Supervision, Verbal Cues, Minimal cues, HOB elevated Transfers Transfer Exam: Sit to stand Level of [place]: Stand-by assist Physical/Nonphysical Assist: Set-up required, Supervision, Verbal Cues, Minimal cues Assistive Device: Walker, rolling Transfer Exam: Stand to Sit Level of [place]: Stand-by assist Physical/Nonphysical Assist: Supervision, Verbal Cues, [...] handout/printout provided for visual reference. Access Code: [email or web address] URL: [email or web address] Date: 08/29/2025 Exercises - Seated Elbow Flexion [...] Equipment for Bathing & Showering Standardized Assessments [facility] 6-Click Daily Activities Help from Other: Don/Doff Regular Lower Body Clothings: A lot Help From Other: Bathing: Little Help From Other: Toileting: None Help From Other: Don/Doff Upper Body Clothings: None Help From Other: Grooming: None Help From Other: Eating Meals: Little (DHT) [facility] 6 Click - Daily Activities Score: 20/24 [facility] Scoring Interpretation: Scores greater than 20.5 [...] admission Level of Mobility Ambulatory- community Mobility [place] Independent gait without device History of Falls [...] unaware when pt may be discharged from [facility]. Social Media Editor (if applicable) Not Applicable OBJECTIVE & INTERVENTIONS [...] Treatment Minutes 20 BED MOBILITY Level of [place] Physical/Non- physical Assist Adaptive Equipment Utilized Rolling/ Turning Scooting/ Bridging Stand-by assist Set-up required, Supervision, Verbal Cues Supine to Sit Stand-by assist Set-up required, Supervision, Verbal Cues, Minimal cues, HOB elevated Sit to Supine Interventions TRANSFERS Level of [place] Physical/Non- physical Assist Adaptive Equipment Utilized Sit to Stand Stand-by assist Set-up required, Supervision, Verbal Cues, Minimal cues Walker, rolling Stand to sit Stand-by assist Supervision, Verbal Cues, Minimal cues Walker, rolling Bed to Chair Toilet Transfer Shower Transfer Interventions AMBULATION Level of [place] Distance Adaptive Equipment Utilized Ambulation Standby assist, Minimal verbal cues 130' x 2 with seated rest break between each distance Rolling walker Comments Cues for safety awareness. ROUGH PLANER TENDER presence was necessary for: * managing lines [...] clinic with Dr. Adrian on 09/06/25 at [facility] for follow-up. * Progress Notes - Rusty Melendrez DDS - 08/29/2025 5:37 AM EDT Images from the original note were not included. Oral & Maxillofacial Surgery Progress Note 08/29/25 Carlito Perez [facility] Day: 11 Subjective HISTORY OF PRESENT [...] Units Date/Time Cecelia auris Surveillance by PCR [[id number]] (Normal) Collected: 08/19/252018 Order Status: Completed Specimen: Swab from Axilla and Groin Updated: 08/21/25 1033 Cecelia auris PCR Result Not Detected Narrative: This PCR assay was developed and its performance characteristics determined by [facility] as appropriate for clinical purposes. This assay has not been cleared or approved bythe FDA, but is performed in a CLIA regulated laboratory that is qualified to perform high-complexity testing. Multi Drug Resistance Test [[id number]] Collected: 08/19/252018 Order Status: Completed Specimen: Swab from Nares and Nini Rectal Updated: 08/21/25 0733 Culture No growth at day 1 Narrative: This test was developed and its performance characteristics determined by the [facility]. Although the media is FDA-approved, it is not FDA-approved for all specimen types submitted. The FDA has determined that such clearance or approval is not necessary. This test is used for surveillance purposes. It should not be regarded as investigational or for research. The [facility] is [...] with patient at bedside Rusty Melendrez DDS [facility] OMFS, PGY-1 Cosigned by [...] Renteria MD - 08/28/2025 9:37 PM EDT [facility] Department of Surgery Division of Plastic and [...] nursing staff. I have notified senior resident/attending surgical appliances salesperson with any issues or concerns. * Anesthesia [...] PM EDT Operative Note Date: 08/28/25 Location: [facility] OR Name: Saravanan Perez, : 1970, Diagnoses: [...] Attending Surgeon(s): * Marvin Santana - Primary Machine Wood Sander(s): * Roma Rolon MD - Resident - [...] Maxillofacial Surgery Progress Note 08/28/2025 Carlito Perez [facility] Day: 11 Subjective HISTORY OF PRESENT [...] Units Date/Time Cecelia auris Surveillance by PCR [[id number]] (Normal) Collected: 08/19/252018 Order Status: Completed Specimen: Swab from Axilla and Groin Updated: 08/21/25 1033 Cecelia auris PCR Result Not Detected Narrative: This PCR assay was developed and its performance characteristics determined by [facility] as appropriate for clinical purposes. This assay has not been cleared or approved bythe FDA, but is performed in a CLIA regulated laboratory that is qualified to perform high-complexity testing. Multi Drug Resistance Test [[id number]] Collected: 08/19/252018 Order Status: Completed Specimen: Swab from Nares and Nini Rectal Updated: 08/21/25 0733 Culture No growth at day 1 Narrative: This test was developed and its performance characteristics determined by the [facility]. Although the media is FDA-approved, it is not FDA-approved for all specimen types submitted. The FDA has determined that such clearance or approval is not necessary. This test is used for surveillance purposes. It should not be regarded as investigational or for research. The [facility] is [...] with patient at bedside Marcelino Laurent DMD [facility] food and beverage controller PGY-1 Pager #: [phone] Cosigned by Alvaro Adrian DMD, MD at [...] vac forms and supporting documentation sent to [facility] via email: [email or web address]. * Care Plan - Don Dolan RN [...] Note Carlito Perez 54 y.o. male CSN: [id number] Admission: 08/19/2025 5:29 AM Primary Problem: Floor of mouth squamous cell carcinoma Anticipated Discharge Date: 08/30/25 Has Discharge Plans Changed? Medicare Second Notice: Housing Circumstances: Housing Circumstances Action Taken: Medically Ready for Discharge: Additional Comments [facility] has been informed via secure chat. sent the wound vac forms to be fill out and signed by MD Adrian in order to request wound vac. CM messaged [facility] to hold delivery for trach supplies + RW As pt will discharge 08/30/25. POC reviewed with primary team. Refer to primary team's note for details. Pt is not medically readyfor discharge. MD anticipates readiness for discharge on 08/30/25 In??MARIANELA Bass, activity manager * Procedures - Senia Cross PA [...] from the original note were not included. [address]143 Suctioning Your Tracheostomy Important Call 911 right [...] tube. Move the catheter tip in a pilot point as you pull the catheter out. ? [...] thoroughly. Last Reviewed Date: 2025 00:00:00 ?? 0336-5888 The [employer]. All rights reserved. This information is not intended as a substitute for professional medical care. Always follow your healthcare professional's instructions. * Lynetteed KhannaRUPALI - Bob Masterson RN - 08/26/2025 10:29 AM EDT Images from the original note were not included. [address]338 Preventing a Surgical Site Infection A risk [...] of infection. ? Controlled body temperature. A zkiza-zgmu-jgszur temperature during or after surgery prevents oxygen [...] and water or with an alcohol-based hand probation worker before and after caring for you. Don?t [...] away. Last Reviewed Date: 2024 00:00:00 ?? 5810-7020 The [employer]. All rights reserved. This information is not intended as a substitute for professional medical care. Always follow your healthcare professional's instructions. * [facility] - Bob Masterson RN - 08/26/2025 10:29 AM EDT Images from the original note were not included. 09504 Tracheostomy Care You need to take care [...] breathing Last Reviewed Date: 2025 00:00:00 ?? 7198-5999 The [employer]. All rights reserved. This information is not [...] a high-fiber diet or laxatives. * [facility]ll [facility] - Bob Masterson RN - 08/26/2025 10:29 AM EDT Images from the original note were not included. 51093 Negative Pressure Wound Therapy Negative pressure wound [...] device. Last Reviewed Date: 2024 00:00:00 ?? 0797-7861 The [employer]. All rights reserved. This information is not intended as a substitute for professional medical care. Always follow your healthcare professional's instructions. * Rachell [facility] - Bob Masterson RN - 08/26/2025 [...] Neck and shoulder stiffness or pain ? jail swelling (lymphedema) which can be reduced through [...] call the doctor? Call the clinic at [phone] if you have any of these: ? [...] lips Call 911 or go to the [facility] emergency department if you have any of [...] does not seem to beworking properly. 1. Special Effects Designer the tube near the skin and hold [...] from the original note were not included. 36967 Surgery for a Mouth or Throat Tumor [...] look Last Reviewed Date: 2024 00:00:00 ?? 8024-8145 The [employer]. All rights reserved. This information is not intended as a substitute for professional medical care. Always follow your healthcare professional's instructions. * Rachell [facility] - Bob Masterson RN - 08/26/2025 [...] with a towel and dry with a wheelchair van driver on low setting to avoid burning. At [...] taking nutrition by feeding tube, the case investigator in the hospital will give you information [...] call the doctor? Call the clinic at [phone] if you have any of these: ? [...] will change at bedside on 08/26 - [id number] mg for 1 month - Recommend 5 [...] Oral & Maxillofacial Surgery Progress Note 08/25/25 [facility] Day: 7 Subjective HISTORY OF PRESENT [...] Units Date/Time Cecelia auris Surveillance by PCR [[id number]] (Normal) Collected: 08/19/25 2019 Order Status: Completed Specimen: Swab from Axilla and Groin Updated: 08/21/25 1033 Cecelia auris PCR Result Not Detected Narrative: This PCR assay was developed and its performance characteristics determined by [facility] as appropriate for clinical purposes. This assay has not been cleared or approved bythe FDA, but is performed in a CLIA regulated laboratory that is qualified to perform high-complexity testing. Multi Drug Resistance Test [[id number]] Collected: 08/19/252018 Order Status: Completed Specimen: Swab from Nares and Nini Rectal Updated: 08/21/25 0733 Culture No growth at day 1 Narrative: This test was developed and its performance characteristics determined by the [facility]. Although the media is FDA-approved, it is not FDA-approved for all specimen types submitted. The FDA has determined that such clearance or approval is not necessary. This test is used for surveillance purposes. It should not be regarded as investigational or for research. The [facility] is [...] with patient at bedside Marcelino Laurent DMD [facility] food and beverage controller PGY-1 Pager #: [phone] Cosigned by Alvaro Adrian DMD, MD at [...] will change at bedside on 08/26 - [id number] mg for 1 month - Recommend 5 [...] MD Plastic & Reconstructive Surgery PGY-4 Pager [phone] Cosigned by Marvin Santana MD at 08/26/2025 [...] Taken 08/23/20252134 by Robert Wilson Diversional Activities: [employer] television Goal: Nausea and Vomiting Relief Outcome: [...] Note Carlito Perez 54 y.o. male CSN: [id number] Admission: 08/19/2025 5:29 AM Primary Problem: Floor of mouth squamous cell carcinoma Anticipated Discharge Date: 08/26/25 Referral for trach supplies and a RW placed in careport and sent to [facility]. Trach supply order will be reviewed on Tuesday08/26/25. Contact information for primary CM included in referral for [facility] to follow up on 08/26/25. Additional Comments Halie Ledezma RN * Progress Notes - Marcelino Laurent DMD - 08/24/2025 10:27 AM EDT Images from the original note were not included. Oral & Maxillofacial Surgery Progress Note 08/24/25 Carlito Perez [facility] Day: 6 Subjective HISTORY OF PRESENT [...] Units Date/Time Cecelia auris Surveillance by PCR [[id number]] (Normal) Collected: 08/19/252018 Order Status: Completed Specimen: Swab from Axilla and Groin Updated: 08/21/25 1033 Cecelia auris PCR Result Not Detected Narrative: This PCR assay was developed and its performance characteristics determined by [facility] as appropriate for clinical purposes. This assay has not been cleared or approved bythe FDA, but is performed in a CLIA regulated laboratory that is qualified to perform high-complexity testing. Multi Drug Resistance Test [[id number]] Collected: 08/19/252018 Order Status: Completed Specimen: Swab from Nares and Nini Rectal Updated: 08/21/25 0733 Culture No growth at day 1 Narrative: This test was developed and its performance characteristics determined by the [facility]. Although the media is FDA-approved, it is not FDA-approved for all specimen types submitted. The FDA has determined that such clearance or approval is not necessary. This test is used for surveillance purposes. It should not be regarded as investigational or for research. The [facility] is [...] with patient at bedside Marcelino Laurent DMD [facility] [facility] food and beverage controller PGY-1 Pager #: [phone] Cosigned by Alvaro Adrian DMD, MD at [...] will change at bedside on 08/26 - [id number] mg for 1 month - Recommend 5 [...] Note Carlito Perez 54 y.o. male CSN: [id number] Room/Bed 128/128A Nutrition evaluation type: follow-up Reason [...] air) O2 Delivery Method: Humidified trach collar [place] Coma Scale Score: 15 Dex Scale Score: 19 Virgilio/Cubbin Pressure Risk Score: 41 Most Recent BM Date: (ROUGH PLANER TENDER) Skin: wound vac, right pretibial surgical wound, [...] 4 months Estimated Needs: Kcal: 30-35 kcal/kg (0928-3652 kcal/d) Protein: 1.5-1.8 g/kg (131-157 g/d) Based [...] shellfish, penicillan CAD (coronary artery disease) Cancer ([facility]) [id number] Coronary artery calcification Dental disease chipped teeth, jony block for vocal chord damage Fractures clavical surgery GERD (gastroesophageal reflux disease) 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 via [facility], pending final recs from RD. * Care [...] will change at bedside on 08/26 - [id number] mg for 1 month - Recommend 5 [...] MD Plastic & Reconstructive Surgery PGY-4 Pager [phone] Cosigned by Marvin Santana MD at 08/24/2025 [...] Maxillofacial Surgery Progress Note 08/23/25 Carlito Perez [facility] Day: 5 Subjective HISTORY OF PRESENT [...] Units Date/Time Cecelia auris Surveillance by PCR [[id number]] (Normal) Collected: 08/19/252018 Order Status: Completed Specimen: Swab from Axilla and Groin Updated: 08/21/25 1033 Cecelia auris PCR Result Not Detected Narrative: This PCR assay was developed and its performance characteristics determined by [facility] as appropriate for clinical purposes. This assay has not been cleared or approved bythe FDA, but is performed in a CLIA regulated laboratory that is qualified to perform high-complexity testing. Multi Drug Resistance Test [[id number]] Collected: 08/19/252018 Order Status: Completed Specimen: Swab from Nares and Nini Rectal Updated: 08/21/25 0733 Culture No growth at day 1 Narrative: This test was developed and its performance characteristics determined by the [facility]. Although the media is FDA-approved, it is not FDA-approved for all specimen types submitted. The FDA has determined that such clearance or approval is not necessary. This test is used for surveillance purposes. It should not be regarded as investigational or for research. The [facility] is [...] with patient at bedside Rusty Melendrez DDS [facility] OMFS, PGY-1 Cosigned by [...] Note Carlito Perez 54 y.o. male CSN: [id number] Admission: 08/19/2025 5:29 AM Primary Problem: Floor of mouth squamous cell carcinoma Anticipated Discharge Date: 08/27/25 Has Discharge Plans Changed? Medicare Second Notice: Housing Circumstances: Housing Circumstances Action Taken: Medically Ready for Discharge: Additional Comments Referral for PT/OT+SN sent to agencies via [employer]. UPDATE: [facility] [phone] has accepted pt. POC reviewed with primary team. Refer to primary team's note for details. Pt is not medically readyfor discharge. MD anticipates readiness for discharge more than 72 hrs. In??s MARIANELA Kelly, activity manager * Progress Notes - Nicole Rodriguez [...] of anesthesia, CAD (coronary artery disease), Cancer (CMS/[facility]) ([id number]), Coronary artery calcification, Dental disease, Fractures (clavical surgery), GERD (gastroesophageal reflux disease), Hard to intubate, HLD (hyperlipidemia), HTN (hypertension), Hypothyroidism, Reflux gastritis, and Substance abuse (1988). Past Surgical History Patient has a past surgical history that includes Appendectomy (1979); Colonoscopy (2023); Coronarystent placement ([id number]); Other surgical history; Cardiothoracic procedure; orthopedic surgery; Throat surgery; and Carotid stent (04/26/2023). Precautions Right Lower Extremity Weight Bearing Status: Weight Bearing as Tolerated (with CAM boot for ambulation; on AAT - okay to remove for skin inspection, hygiene, and dressing changes per medical TEAM) Medical Precautions: Fall precautions Mobility Orders (Order ID: [id number]) Priority: Routine Interval: Until discontinued Comments: MUST [...] Care Family/Caregiver Present: Yes Family/Caregiver: (Adult Sister) Social Media Editor: Not Applicable Presentation Oxygen Therapy: Supplemental oxygen [...] admission Level of Mobility: Ambulatory- community Mobility [place]: Independent gait without device History of Falls: [...] Mobility Bed Mobility Exam: Scooting/Bridging Level of [place]: Stand-by assist (anteriorly to EOB) Physical/Nonphysical Assist: Set-up required, Supervision, Verbal Cues, Minimal cues, 1 person + 1 person to manage equipment Bed Mobility Exam: Supine to Sit Level of [place]: Contact guard (to the left) Physical/Nonphysical Assist: Set-up required, Verbal Cues, Nonverbal cues (demo/gestures), Minimal cues, HOB elevated, 1 person + 1 person to manage equipment Assistive Device: Bed rails Transfers Transfer Exam: Sit to stand Level of [place]: Contact guard Physical/Nonphysical Assist: Set-up required, Verbal Cues, Nonverbal cues (demo/gestures), Minimal cues, 1 person + 1 person to manage equipment Assistive Device: Walker, rolling Transfer Exam: Stand to Sit Level of [place]: Contact guard Physical/Nonphysical Assist: Verbal Cues, Nonverbal [...] inpatient within personal toileting routines. Standardized Assessments [facility] 6-Click Daily Activities Help from Other: Don/Doff Regular Lower Body Clothings: A lot Help From Other: Bathing: Little Help From Other: Toileting: Little Help From Other: Don/Doff Upper Body Clothings: Little Help From Other: Grooming: None Help From Other: Eating Meals: Little (DHT) [facility] 6 Click - Daily Activities Score: 18 [...] anesthesia, CAD (coronary artery disease), Cancer (CMS/HCC) ([id number]), Coronary artery calcification, Dental disease, Fractures (clavical surgery), GERD (gastroesophageal reflux disease), Hard to intubate, HLD (hyperlipidemia), HTN (hypertension), Hypothyroidism, Reflux gastritis, and Substance abuse (1988). Past Surgical History Patient has a past surgical history that includes Appendectomy (1979); Colonoscopy (2023); Coronarystent placement (62049438); Other surgical history; Cardiothoracic procedure; orthopedic surgery; [...] Care Family/Caregiver Present: Yes Family/Caregiver: (Adult Sister) Social Media Editor: Not Applicable Presentation Oxygen Therapy: Supplemental oxygen [...] admission Level of Mobility: Ambulatory- community Mobility [place]: Independent gait without device History of Falls: [...] Mobility Bed Mobility Exam: Scooting/Bridging Level of [place]: Stand-by assist (anteriorly to EOB) Physical/Nonphysical Assist: Set-up required, Supervision, Verbal Cues, Minimal cues, 1 person + 1 person to manage equipment Bed Mobility Exam: Supine to Sit Level of [place]: Contact guard (to the left) Physical/Nonphysical Assist: Set-up required, Verbal Cues, Nonverbal cues (demo/gestures), Minimal cues, HOB elevated, 1 person + 1 person to manage equipment Transfers Transfer Exam: Sit to stand Level of [place]: Contact guard Physical/Nonphysical Assist: Set-up required, Verbal Cues, Nonverbal cues (demo/gestures), Minimal cues, 1 person + 1 person to manage equipment Assistive Device: Walker, rolling Transfer Exam: Stand to Sit Level of [place]: Contact guard Physical/Nonphysical Assist: Verbal Cues, Nonverbal [...] Level of Assistance: Contact guard Standardized Assessments [facility] 6-Clicks Mobility Assessment Difficulty patient has [...] 3-5 steps with a railing?: A little [facility] 6-Clicks Mobility Assessment Total : 21 No data recorded Assessment Patient is not at his functional baseline and will continue to benefit from further skilled inpatient PT intervention during remainder of hospital stay to address identified impairments and progress towards independence with functional mobility. Anticipate patient will progress with mobility during hospitalization and be able to safely return home [...] Position: turned right Taken 08/21/20251733 by Juanita Vergara, RN Skin Protection: transparent dressing maintained pulse [...] Intervention: Prevent Skin Injury Flowsheets Taken 08/22/2025 06 by Miya Al RN Body Position: turned [...] will change at bedside on 08/26 - [id number] mg for 1 month - Recommend 5 [...] MD Plastic & Reconstructive Surgery PGY-4 Pager [phone] Cosigned by Marvin Santana MD at 08/22/2025 [...] Maxillofacial Surgery Progress Note 08/22/25 Carlito Perez [facility] Day: 4 Subjective HISTORY OF PRESENT [...] Edited by: Marcelino Laurent DMD at 08/22/2025 3056 Objective Last Recorded Vitals Temp: [36.7 ??C [...] Units Date/Time Cecelia auris Surveillance by PCR [[id number]] (Normal) Collected: 08/19/252018 Order Status: Completed Specimen: Swab from Axilla and Groin Updated: 08/21/25 1033 Cecelia auris PCR Result Not Detected Narrative: This PCR assay was developed and its performance characteristics determined by [facility] as appropriate for clinical purposes. This assay has not been cleared or approved bythe FDA, but is performed in a CLIA regulated laboratory that is qualified to perform high-complexity testing. Multi Drug Resistance Test [[id number]] Collected: 08/19/252018 Order Status: Completed Specimen: Swab from Nares and Nini Rectal Updated: 08/21/25 0733 Culture No growth at day 1 Narrative: This test was developed and its performance characteristics determined by the [facility]. Although the media is FDA-approved, it is not FDA-approved for all specimen types submitted. The FDA has determined that such clearance or approval is not necessary. This test is used for surveillance purposes. It should not be regarded as investigational or for research. The [facility] is [...] Manage Nausea and Vomiting Flowsheets (Taken 08/21/2025 1734) Nausea/Vomiting Interventions: slow deep breathing encouraged Goal: [...] Progressing Intervention: Optimize Skin Protection Flowsheets Taken 08/21/2025 173 Activity Management: activity adjusted per tolerance Pressure Reduction Techniques: frequent weight shift encouraged Skin Protection: transparent dressing maintained pulse oximeter probe site changed incontinence pads utilized Taken 08/21/2025 1600 Head of Bed (HOB) Positioning: HOB at 30-45 degrees Intervention: Promote and Optimize Oral Intake Flowsheets (Taken 08/21/2025 1734) Oral Nutrition Promotion: rest periods promoted social [...] changes in flap or additional concerns. Senia SARGENTC Plastic & Reconstructive Surgery * Progress Notes [...] on file Utilities: Not At Risk (08/21/2025) [facility] Utilities Threatened with loss of utilities: No [...] Surgery ICU Progress Note 08/21/25 Carlito Perez [facility] Day: 3 Subjective HISTORY OF PRESENT ILLNESS Carliot Perez is a 54 y.o. male with [...] Value Units Date/Time Multi Drug Resistance Test [[id number]] Collected: 08/19/252018 Order Status: Sent Specimen: Swab from Nares and Nini Rectal Updated: 08/19/252029 Cecelia auris Surveillance by PCR [[id number]] Collected: 08/19/252018 Order Status: Sent Specimen: Swab [...] Trach care per OMFS #Tracheostomy - Contact surgical appliances salesperson PGY-1 for acute trach concerns - 6-0 [...] #Hypothyroidism - Restarted Levothyroxine Marcelino Laurent DMD [facility] food and beverage controller PGY-1 Pager #: [phone] [1] acetaminophen, 1,000 mg, Nasogastric, q6h JOVANNI [...] Progressing Intervention: Optimize Glycemic Control Flowsheets (Taken 08/21/2025346) Hyperglycemia Management: blood glucose monitored Hypoglycemia Management: blood glucose monitored * Significant Event - Galina Renteria MD - 08/21/2025 3:30 AM EDT Images from the original note were not included. POLYMERIZATION ENGINEER Flap Check 08/21/2025 PROCEDURE: Right osteocutaneous free [...] resident Galina Renteria DMD, MD Vascular Surgery Patient Scheduling Coordinator Pager ID [phone] * Significant Event - Galina Renteria MD - 08/20/2025 8:01 PM EDT POLYMERIZATION ENGINEER Flap Check 08/20/2025 PROCEDURE: Right osteocutaneous free [...] resident Galina Renteria DMD, MD Vascular Surgery Patient Scheduling Coordinator Pager ID [phone] * Care Plan - Lizy Amador - [...] Note Carlito Perez 54 y.o. male CSN: [id number] Admission: 08/19/2025 5:29 AM Primary Problem: Floor of mouth squamous cell carcinoma Manager Equity reviewed chart and spoke with patient's spouse to complete this Initial Case Management Assessment. Patient intubated and CM unable to obtain SDOH information. PCP: Christina Arteaga APRN Emergency Contact: Extended Emergency Contact Information Primary Emergency Contact: Elicia Perez Address: [address] [place] [address] [facility] Mobile Relation: Spouse Insurance: Primary Visit Coverage Payer Plan Sponsor Code Group Number Group Name [employer] [employer] [place] [employer] Primary Visit Coverage Subscriber Subscriber ID Subscriber Name Subscriber N Subscriber Address [id number] Carlito Perez [id number] [address] [place] [address] Patient information: Primary Caregiver: Self Accompanied by/Relationship: spouse Support System: Immediate family Daily Living Activities: Functional Status: Independent Living Arrangements: Spouse/Significant other Type of Residence: Private residence, Single Level [address] [place] [address] Current DME: Equipment Currently Used at Home: none Current DME Provider: has a cane and crutches at [facility] if needed. Income Information: Income Source: Employed Income/Expense Information: Income meets expenses Current Resources Utilized: None Housing Circumstances-Z Codes: Housing Circumstances (select all that apply): None Applicable Anticipated Discharge Date: 08/26 Patient's Discharge Goal: tbd Assistance Available at Discharge: 06/06 per family. His sister is an RN, son is a industrial truck operator and he has a cousin who is an RN. Per spouse they are all able/willing to assist patient when dc home for hospital. Spouse also able to assist however she works many hours at her job. Discharge Transport: family Follow Up Transport: family Home Health / Home Infusion / Outpatient Dialysis Services: Current DME Provider: has a cane and crutches at [facility] if needed. Living Will/Advance Directive/Power of Maintenance Manager /Guardian: has copies of LW and POA . CM suggested she present these to a grocery clerk checking who may be able to scan into his [facility]/ chart. Additional Comments: Manager Equity provided introduction of CM and information on CM role. Confirmed demographics in EPICare accurate. requested communication go to Email [email or web address] Jackeline Rodriguez RN * Progress Notes - [...] Height: O2 Delivery Method: Humidified trach collar TN SUP: 10 cm H20 Insp Time (sec): 1.4 sec FiO2 (%): 28 % S RR: 14 TN SUP: 10 cm H20 I O Shift [...] Surgery ICU Progress Note 08/20/25 Carlito Perez [facility] Day: 2 Subjective HISTORY OF PRESENT [...] day 1. Trach remains in place with [facility] . NAEO. Pt seen and evaluated at bedside by [facility] surgery residents. NPO.Tolerating pain on PO meds [...] Value Units Date/Time Multi Drug Resistance Test [[id number]] Collected: 08/19/252018 Order Status: Sent Specimen: Swab from Nares and Nini Rectal Updated: 08/19/252029 Cecelia auris Surveillance by PCR [[id number]] Collected: 08/19/252018 Order Status: Sent Specimen: Swab [...] #Hypothyroidism - Restarted Levothyroxine Rusty Melendrez, MARK [facility] OMFS, PGY-1 [1] acetaminophen, [...] EDT Signature only. * Significant Event - TegaurangMike sotoDO - 08/20/2025 5:32 AM EDT Free Flap Check Note [@5334] Carlito Perez is a 54 y.o. male [...] Review Outcome: Ongoing, Progressing Flowsheets (Taken 08/19/2025 1973) Progress: no change Plan of Care Reviewed [...] from the original note were not included. [facility] Department of Surgery Division of Plastic and Reconstructive Surgery Post-Operative Check Name: Carlito Roberth Chris Attending Provider: Marvin Santana MD Age/Sex: 54 y.o. male Unit: [facility] 5 T2 ICU Date & Time of Admission: 08/19/2025 5:29 AM [facility] Right osteocutaneous free fibula for reconstruction [...] 0659 08/18/25 07 - 08/18/25 1859 08/18/25 190 - 08/19/25 0659 08/19/25 0700 - 08/19/25 1859 08/19/25 190 - 08/19/25 2122 Closed/Suction Drain Anterior;Right Neck [...] Note Carlito Perez 54 y.o. 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 HLD (hyperlipidemia) HTN (hypertension) Hypothyroidism Reflux gastritis Substance abuse 1988 [2] Past Surgical History: Procedure Laterality Date APPENDECTOMY 1979 CARDIOTHORACIC PROCEDURE stents CAROTID STENT 04/26/2023 COLONOSCOPY 2023 CORONARY STENT PLACEMENT [id number] ORTHOPEDIC SURGERY repair to clavical OTHER SURGICAL [...] AM EDT Operative Note Date: 08/19/25 Location: [facility] Name: Saravanan Perez, : 1970, Diagnoses: Pre-op Diagnosis Floor of mouth squamous cell carcinoma Post-op Diagnosis Floor of mouth squamous cell carcinoma Procedure(s): Tracheotomy, partial glossectomy left anterior tongue, left segmental mandibulectomy, left selective neck dissection, extraction of #2,3,5,6,7,8,9,10,11,12,13,15,28,29,31, Direct Laryngoscopy with Biopsy Attending Surgeon(s): Panel 1: * Marvin Santana - Primary Panel 2: * Alvaro Adrian - Primary Machine Wood Sander(s): Panel 1: * Roma Rolon MD - [...] W/O ANGLE 2MM THCK - SNA - [id number] Used, Not Implanted NA Plate PLATE TI PSPC MATRIXMAND ANG RECON 7X23H/2MM LT - SNA - [id number] Implanted NA Screw SCREW 2.0MM MATRIXMANDIBLE ST 8MM - SNA - [id number] Used, Not Implanted NA Screw SCREW 2.0MM MATRIXMANDIBLE LOCK ST 8MM - SN/A - [id number] Implanted N/A SCREW 2.0MM MATRIXMANDIBLE LOCK ST 10MM - SN/A - [id number] Implanted N/A SCREW 2.0MM MATRI[address]ANDIBLE LOCK ST 10MM - SN/A - [id number] Implanted N/A SCREW 2.0MM MATRIXMANDIBLE LOCK ST 14MM - SN/A - [id number] Implanted N/A Specimen: Specimens ID Source Frozen? [...] were divided vertically and held apart using army-[employer] retractors. Dissection was continued until the fascia [...] AM EDT Operative Note Date: 08/19/25 Location: [facility] Name: Saravanan Perez, : 1970, Diagnoses: [...] Panel 1: * Marvin Santana - Primary Machine Wood Sander(s): Panel 1: * Roma Rolon MD - [...] W/O ANGLE 2MM THCK - SNA - [id number] Used, Not Implanted NA Plate PLATE TI PSPC MATRIXMAND ANG RECON 7X23H/2MM LT - SNA - [id number] Implanted NA Screw SCREW 2.0MM MATRIXM[address]IBLE ST 8MM - SNA - [id number] Used, Not Implanted NA Screw SCREW 2.0MM MATRIXMANDIBLE LOCK ST 8MM - SN/A - [id number] Implanted N/A SCREW 2.0MM MATRIXMANDIBLE LOCK ST 10MM - SN/A - [id number] Implanted N/A SCREW 2.0MM MATRIXMANDIBLE LOCK ST 10MM - SN/A - [id number] Implanted N/A SCREW 2.0MM MATRIXMANDIBLE LOCK ST 14MM - SN/A - [id number] Implanted N/A Specimen: Specimens ID Source Frozen? [...] for reconstruction Free fibula flap secured to mary's igloo mandible with a reconstruction plate Complex intraoral [...] we had good bony approximation to the mary's igloo mandible. Under direct visualization we are able to secure 4 holes across the osteotomy sites to the mary's igloo mandible with bicortical screws. In this fashion were able to reconstruct the right brandyn mandible with a reconstruction plate/implant. We also then were able to drape the pedicle appropriately down into the anastomosis site. Under loupe magnification, we then proceeded to reapproximate the artery end-to-end using 8-0 nylonwithout any issues. The veins were then coupled using a 3.5 mm corporate communications associate x2. The clamps were carefully removed demonstrating [...] 08/19/2025 8:53 AM EDT Date: 08/19/25 Location: [facility] Name: Saravanan Perez, : 1970, Diagnoses: Pre-op Diagnosis Floor of mouth squamous cell carcinoma Post-op Diagnosis Floor of mouth squamous cell carcinoma Procedure(s): Segmental mandibulectomy, left selective neck dissection, extraction of all remaining teeth, partial left glossectomy, tracheostomy, Direct Laryngoscopy with biopsy Attending Surgeon(s): Panel 1: * Marvin Santana - Primary Panel 2: * Alvaro Adrian - Primary Machine Wood Sander(s): Panel 1: * Roma Rolon MD - [...] W/O ANGLE 2MM THCK - SNA - [id number] Used, Not Implanted NA Plate PLATE TI PSPC MATRIXMAND ANG RECON 7X23H/2MM LT - SNA - [id number] Implanted NA Specimen: Specimens ID Source Frozen? [...] from the original note were not included. [facility] Department of Surgery Division of Plastic and [...] shellfish, penicillan CAD (coronary artery disease) Cancer (CMS/[facility]) [id number] Coronary artery calcification Dental disease chipped teeth, [...] STENT 04/26/2023 COLONOSCOPY 2023 CORONARY STENT PLACEMENT [id number] ORTHOPEDIC SURGERY repair to clavical OTHER SURGICAL [...] with an associated skin paddle in his mary's igloo blood supply. This will then be harvested [...] - Encouraged nicotine minimization - To see surgical scheduler today. - All questions regarding pre-op, intra-op, [...] shellfish, penicillan CAD (coronary artery disease) Cancer ([facility]) [id number] Coronary artery calcification Dental disease chipped teeth, [...] STENT 04/26/2023 COLONOSCOPY 2023 CORONARY STENT PLACEMENT [id number] ORTHOPEDIC SURGERY repair to clavical OTHER SURGICAL [...] Description 10/08/2025 9:15 AM EST Office Visit [facility] Plastic & Reconstructive Surgery [address] [place] [phone] Marvin Santana MD [address] [place] [address] 10/08/2025 10:30 AM EST Office Visit [facility] food and beverage controller [facility] [address] [place] [phone] Alvaro Adrian DMD, MD [address] [facility] [address] [place] [phone] Scheduled Referrals Name Type Priority Associated Diagnoses Order Schedule Discharge Ambulatory referral to NON [facility] Outpatient Referral Routine Floor of mouth squamous cell carcinoma 1 Occurrences starting 08/22/2025 until 02/23/2027 Discharge Ambulatory referral to NON [facility] Outpatient Referral Routine Floor of mouth squamous [...] OXYGEN THERAPY Routine 08/28/2025 8:00 PM EDT TN SPLIT GRFT TRUNK,ARM,LEG <100 SQCM 08/28/2025 4:20 PM EDT 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 Needs Dermatome, skin graft mesher, Artiss 4 cc and sprayer, xeroform, telfa, epinephrine/saline, tegaderm, 4-0 vicryl rapide, adaptic, silver dermanet TN SPLIT GRFT,TRUNK,ARM,LEG EA 100 SQCM 08/28/2025 4:20 [...] bovie, bipolar, tournique, tps drill and sawt TN PART REMOVAL TONGUE,<1/2 08/19/2025 8:05 AM EDT 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 Needs Microinstruments, micrscope available, doppler, handheld ligasure, bovie, bipolar, tournique, tps drill and sawt TN REMOVAL NODES, NECK,CERV CMPLT 08/19/2025 8:05 AM EDT 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 Needs Microinstruments, micrscope available, doppler, handheld ligasure, bovie, bipolar, tournique, tps drill and sawt TN REMV MALIG JAW BONE RADICAL 08/19/2025 8:05 AM EDT 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 Needs Microinstruments, micrscope available, doppler, handheld ligasure, bovie, bipolar, tournique, tps drill and sawt TN RECONSTR MANDIBLE,BONE PLATE 08/19/2025 8:05 AM EDT 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 Needs Microinstruments, micrscope available, doppler, handheld ligasure, bovie, bipolar, tournique, tps drill and sawt TN LAYR CLOS WND REST BODY 12.6-20 CM 08/19/2025 8:05 AM EDT 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 Needs Microinstruments, micrscope available, doppler, handheld ligasure, bovie, bipolar, tournique, tps drill and sawt TN REPR,FACE,GENITAL,ARGUETA ND,FT+5 CMCM/< 08/19/2025 8:05 AM EDT 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 Needs Microinstruments, micrscope available, doppler, handheld ligasure, bovie, bipolar, tournique, tps drill and sawt TN RECMPL WND HEAD,FAC,HAND 2.6-7.5 CM 08/19/2025 8:05 AM EDT 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 Needs Microinstruments, micrscope available, doppler, handheld ligasure, bovie, bipolar, tournique, tps drill and sawt TN BONE-SKIN GRAFT, MICROVASCULAR 08/19/2025 8:05 AM EDT 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 Needs Microinstruments, micrscope available, doppler, handheld ligasure, bovie, bipolar, tournique, tps drill and sawt TYPE AND SCREEN Routine 08/19/2025 7:05 AM EDT documented in this encounter Results * Phosphorus, Plasma (08/30/2025 3:00 AM EDT) Phosphorus, Plasma 4.2 2.5 - 4.5 mg/dL 08/30/2025 3:[address] [facility] Blood Venous blood specimen / Unknown Venipuncture / Unknown 08/30/2025 3:00 AM EDT 08/30/2025 3:11 AM EDT us Sin Min Lynn Singletary DMD, MD LAB BLOOD ORDERABLES Melida l Result [facility] [address] [place] [address] * Magnesium, Plasma (08/30/2025 3:00 AM EDT) Magnesium, Plasma 2.4 1.9 - 2.4 mg/dL 08/30/2025 3:[address] [facility] Blood Venous blood specimen / Unknown Venipuncture / Unknown 08/30/2025 3:00 AM EDT 08/30/2025 3:11 AM EDT us Sin Min Lynn Singletary DMD, MD LAB BLOOD ORDERABLES Melida l Result Performing Organization Address City/[facility] Co de Phone Number [facility] [address] [place] [address] * (ABNORMAL) CBC W/O Differential (08/30/2025 3:00 AM EDT) WBC Count 10.23 3.70 - 10.30 10*3/uL LAB HEMATOLOGY METHOD 08/30/2025 3:[address] [facility] RBC Count 3.18(L) 4.60 - 6.10 10*6/uL LAB HEMATOLOGY METHOD 08/30/2025 3:[address] [facility] HGB 9.9(L) 13.7 - 17.5 g/dL LAB HEMATOLOGY METHOD 08/30/2025 3:[address] [facility] HCT 30.3(L) 40.0 - 51.0 % LAB HEMATOLOGY METHOD 08/30/2025 3:[address] [facility] Platelet Count 550(H) 155 - 369 10*3/uL LAB HEMATOLOGY METHOD 08/30/2025 3:[address] [facility] MCV 95 79 - 98 fL LAB HEMATOLOGY METHOD 08/30/2025 3:[address] [facility] MCH 31.1 26.0 - 32.0 pg LAB HEMATOLOGY METHOD 08/30/2025 3:[address] [facility] MCHC 32.7 30.7 - 35.5 g/dL LAB HEMATOLOGY METHOD 08/30/2025 3:[address] [facility] RDW 13.2 11.5 - 14.5 % LAB HEMATOLOGY METHOD 08/30/2025 3:[address] [facility] MPV 8.7(L) 8.8 - 12.5 fL LAB HEMATOLOGY METHOD 08/30/2025 3:[address] [facility] nRBC 0.0 <=0.0 per 100 WBCs LAB HEMATOLOGY METHOD 08/30/2025 3:[address] [facility] Blood Venous blood specimen / Unknown Venipuncture / Unknown 08/30/2025 3:00 AM EDT 08/30/2025 3:11 AM EDT us Sin Min M Hayder [place] MD LAB BLOOD ORDERABLES Melida l Result [facility] [address] [place] [address] * (ABNORMAL) Basic Metabolic Panel, Plasma (08/30/2025 3:00 AM EDT) Glucose, Plasma 113(H) 74 - 99 mg/dL 08/30/2025 3:[address] [facility] BUN, Plasma 20 7 - 21 mg/dL 08/30/2025 3:[address] [facility] Creatinine, Plasma 0.68(L) 0.70 - 1.20 mg/dL 08/30/2025 3:[address] [facility] BUN/Creatinine Ratio 29 08/30/2025 3:[address] [facility] Sodium, Plasma 137 136 - 145 mmol/L 08/30/2025 3:[address] [facility] Potassium, Plasma 4.4 3.6 - 4.9 mmol/L 08/30/2025 3:[address] [facility] Chloride, Plasma 100 97 - 107 mmol/L 08/30/2025 3:[address] [facility] CO2, Plasma 28 22 - 29 mmol/L 08/30/2025 3:[address] [facility] Anion Gap 9 6 - 16 mmol/L 08/30/2025 3:[address] [facility] Total Calcium, Plasma 9.2 8.9 - 10.2 mg/dL 08/30/2025 3:[address] [facility] eGFRcr 111.8 mL/min/1.7 3m*2 08/30/2025 3:[address] [facility] Comment:Reported eGFRcr in m L/min/1.73m2 is based the CKD-EPI 2020 equation that does not use a race coefficient. Blood Venous blood specimen / Unknown Venipuncture / Unknown 08/30/2025 3:00 AM EDT 08/30/2025 3:11 AM EDT us Sin Min Lynn Singletary DMD, MD LAB BLOOD ORDERABLES Melida l Result Performing Organization Address City/[facility]/ZIP Co de Phone Number [facility] [address] [place] [address] * Phosphorus, Plasma (08/29/2025 2:37 AM EDT) Phosphorus, Plasma 4.1 2.5 - 4.5 mg/dL 08/29/2025 3:[address] [facility] Blood Venous blood specimen / Unknown Venipuncture / Unknown 08/29/2025 2:37 AM EDT 08/29/2025 2:44 AM EDT us Sin Min Lynn Singletary DMD, MD LAB BLOOD ORDERABLES Melida l Result [facility] [address] [place] [address] * Magnesium, Plasma (08/29/2025 2:37 AM EDT) Magnesium, Plasma 2.2 1.9 - 2.4 mg/dL 08/29/2025 3:[address] [facility] Blood Venous blood specimen / Unknown Venipuncture / Unknown 08/29/2025 2:37 AM EDT 08/29/2025 2:44 AM EDT us Sin Min M Hayder [place] MD LAB BLOOD ORDERABLES Melida l Result [facility] [address] [place] [address] * (ABNORMAL) CBC W/O Differential (08/29/2025 2:37 AM EDT) WBC Count 11.08(H) 3.70 - 10.30 10*3/uL LAB HEMATOLOGY METHOD 08/29/2025 2:[address] [facility] RBC Count 3.09(L) 4.60 - 6.10 10*6/uL LAB HEMATOLOGY METHOD 08/29/2025 2:[address] [facility] HGB 9.6(L) 13.7 - 17.5 g/dL LAB HEMATOLOGY METHOD 08/29/2025 2:[address] [facility] HCT 29.0(L) 40.0 - 51.0 % LAB HEMATOLOGY METHOD 08/29/2025 2:[address] [facility] Platelet Count 547(H) 155 - 369 10*3/uL LAB HEMATOLOGY METHOD 08/29/2025 2:[address] [facility] MCV 94 79 - 98 fL LAB HEMATOLOGY METHOD 08/29/2025 2:[address] [facility] MCH 31.1 26.0 - 32.0 pg LAB HEMATOLOGY METHOD 08/29/2025 2:[address] [facility] MCHC 33.1 30.7 - 35.5 g/dL LAB HEMATOLOGY METHOD 08/29/2025 2:[address] [facility] RDW 13.1 11.5 - 14.5 % LAB HEMATOLOGY METHOD 08/29/2025 2:[address] [facility] MPV 8.6(L) 8.8 - 12.5 fL LAB HEMATOLOGY METHOD 08/29/2025 2:[address] [facility] nRBC 0.0 <=0.0 per 100 WBCs LAB HEMATOLOGY METHOD 08/29/2025 2:[address] [facility] Blood Venous blood specimen / Unknown Venipuncture / Unknown 08/29/2025 2:37 AM EDT 08/29/2025 2:44 AM EDT us Sin Min M Hayder [place] MD LAB BLOOD ORDERABLES Melida mae Result [facility] [address] [place] [address] * (ABNORMAL) Basic Metabolic Panel, Plasma (08/29/2025 2:37 AM EDT) Pathologist [facility] Glucose, Plasma 110(H) 74 - 99 mg/dL 08/29/2025 3:[address] [facility] BUN, Plasma 19 7 - 21 mg/dL 08/29/2025 3:[address] [facility] Creatinine, Plasma 0.72 0.70 - 1.20 mg/dL 08/29/2025 3:[address] [facility] BUN/Creatinine Ratio 26 08/29/2025 3:[address] [facility] Sodium, Plasma 138 136 - 145 mmol/L 08/29/2025 3:[address] [facility] Potassium, Plasma 3.8 3.6 - 4.9 mmol/L 08/29/2025 3:[address] [facility] Chloride, Plasma 100 97 - 107 mmol/L 08/29/2025 3:[address] [facility] CO2, Plasma 25 22 - 29 mmol/L 08/29/2025 3:[address] [facility] Anion Gap 13 6 - 16 mmol/L 08/29/2025 3:[address] [facility] Total Calcium, Plasma 9.0 8.9 - 10.2 mg/dL 08/29/2025 3:[address] [facility] eGFRcr 109.9 mL/min/1.7 3m*2 08/29/2025 3:[address] [facility] Comment:Reported eGFRcr in m L/min/1.73m2 is based the CKD-EPI 2020 equation that does not use a race coefficient. Blood Venous blood specimen / Unknown Venipuncture / Unknown 08/29/2025 2:37 AM EDT 08/29/2025 2:44 AM EDT us Khadar Singletary DMD, MD LAB BLOOD ORDERABLES Melida l Result Performing Organization Address [facility] Co de Phone Number [facility] [address] [place] [address] * (ABNORMAL) POCT glucose meter (08/28/2025 5:41 AM EDT) POCT Glucose 105(H) 74 - 99 mg/dL [...] Comment 08/28/2025 5:42 AM EDT [facility] Supervisor Sewer System ID Lavonne Mccauley 08/28/2025 5:42 AM EDT [facility] Device ID [id number] 08/28/2025 5:42 AM EDT [facility] Specimen Type POC Capillary 08/28/2025 5:42 AM EDT [facility] Blood Capillary blood specimen / Unknown 08/28/2025 5:41 AM EDT 08/28/2025 5:42 AM EDT us Alvaro Adrian DMD, MD LAB POINT OF CA RE TEST DOCKED DEVICE UNSOLICITED RESULTS Final Result Performing Organization Address [facility] de Phone Number [facility] [address] [place] [address] * Phosphorus, Plasma (08/28/2025 3:54 AM EDT) Pathologist [facility] Phosphorus, Plasma 4.3 2.5 - 4.5 mg/dL 08/28/2025 4:[address] [facility] Blood Venous blood specimen / Unknown Venipuncture / Unknown 08/28/2025 3:54 AM EDT 08/28/2025 3:59 AM EDT us Sin Min Lynn Singletary DMD, MD LAB BLOOD ORDERABLES Melida l Result Performing Organization Address City/[facility]/ZIP Co de Phone Number [facility] [address] [place] [address] * Magnesium, Plasma (08/28/2025 3:54 AM EDT) [facility] Magnesium, Plasma 2.2 1.9 - 2.4 mg/dL 08/28/2025 4:[address] [facility] Blood Venous blood specimen / Unknown Venipuncture / Unknown 08/28/2025 3:54 AM EDT 08/28/2025 3:59 AM EDT us Sin Min Lynn Singletary DMD, MD LAB BLOOD ORDERABLES Melida l Result Performing Organization Address City/[facility]/ZIP Co de Phone Number [facility] [address] [place] [address] * (ABNORMAL) CBC W/O Differential (08/28/2025 3:54 AM EDT) [facility] WBC Count 10.56(H) 3.70 - 10.30 10*3/uL LAB HEMATOLOGY METHOD 08/28/2025 4:[address] [facility] RBC Count 3.08(L) 4.60 - 6.10 10*6/uL LAB HEMATOLOGY METHOD 08/28/2025 4:[address] [facility] HGB 9.5(L) 13.7 - 17.5 g/dL LAB HEMATOLOGY METHOD 08/28/2025 4:[address] [facility] HCT 28.8(L) 40.0 - 51.0 % LAB HEMATOLOGY METHOD 08/28/2025 4:[address] [facility] Platelet Count 552(H) 155 - 369 10*3/uL LAB HEMATOLOGY METHOD 08/28/2025 4:[address] [facility] MCV 94 79 - 98 fL LAB HEMATOLOGY METHOD 08/28/2025 4:[address] [facility] MCH 30.8 26.0 - 32.0 pg LAB HEMATOLOGY METHOD 08/28/2025 4:[address] [facility] MCHC 33.0 30.7 - 35.5 g/dL LAB HEMATOLOGY METHOD 08/28/2025 4:[address] [facility] RDW 13.1 11.5 - 14.5 % LAB HEMATOLOGY METHOD 08/28/2025 4:[address] [facility] MPV 8.7(L) 8.8 - 12.5 fL LAB HEMATOLOGY METHOD 08/28/2025 4:[address] [facility] nRBC 0.0 <=0.0 per 100 WBCs LAB HEMATOLOGY METHOD 08/28/2025 4:[address] [facility] Blood Venous blood specimen / Unknown Venipuncture / Unknown 08/28/2025 3:54 AM EDT 08/28/2025 3:59 AM EDT us Sin Min M Hayder [place] MD LAB BLOOD ORDERABLES Melida l Result [facility] [address] [place] [address] * (ABNORMAL) Basic Metabolic Panel, Plasma (08/28/2025 3:54 AM EDT) Glucose, Plasma 101(H) 74 - 99 mg/dL 08/28/2025 4:[address] [facility] BUN, Plasma 18 7 - 21 mg/dL 08/28/2025 4:[address] [facility] Creatinine, Plasma 0.62(L) 0.70 - 1.20 mg/dL 08/28/2025 4:[address] [facility] BUN/Creatinine Ratio 08/28/2025 4:[address] [facility] Sodium, Plasma 136 136 - 145 mmol/L 08/28/2025 4:[address] [facility] Potassium, Plasma 4.2 3.6 - 4.9 mmol/L 08/28/2025 4:[address] [facility] Chloride, Plasma 99 97 - 107 mmol/L 08/28/2025 4:[address] [facility] CO2, Plasma 28 22 - 29 mmol/L 08/28/2025 4:[address] [facility] Anion Gap 9 6 - 16 mmol/L 08/28/2025 4:[address] [facility] Total Calcium, Plasma 9.3 8.9 - 10.2 mg/dL 08/28/2025 4:[address] [facility] eGFRcr 115.0 mL/min/1.7 3m*2 08/28/2025 4:[address] [facility] Comment:Reported eGFRcr in m L/min/1.73m2 is based the CKD-EPI 2020 equation that does not use a race coefficient. Blood Venous blood specimen / Unknown Venipuncture / Unknown 08/28/2025 3:54 AM EDT 08/28/2025 3:59 AM EDT us Sin Dilan Singletary DMD, MD LAB BLOOD ORDERABLES Melida l Result Performing Organization Address City/[facility]/ZIP Co de Phone Number [facility] [address] [place] [address] * Type and Screen (08/28/2025 3:54 AM EDT) Pathologist [facility] ABO/Rh A Negative 08/28/2025 3:58 AM EDT [facility]LO[facility] Antibody Screen Negative 08/28/2025 3:58 AM EDT [facility] Specimen Expiration 08/31/2025 23:59 08/28/2025 3:58 AM EDT [facility] Blood Venous blood specimen / Unknown Venipuncture / Unknown 08/28/2025 3:54 AM EDT 08/28/2025 3:58 AM EDT us Alvaro Adrian DMD, MD LAB BLOOD BANK TEST ORD ERABLES Final Result Performing Organization Address City/[facility]/ZIP Co de Phone Number BLOOD BANK [address] [place] [address], * POCT glucose meter (08/27/2025 11:01 PM EDT) POCT Glucose 97 74 - 99 mg/dL 08/27/2025 11:03 PM EDT [facility] Comment:Accuracy of a [...] Comment 08/27/2025 11:03 PM EDT [facility] Supervisor Sewer System ID Lavonne Mccauley 08/27/2025 11:03 PM EDT [facility] Device ID [id number] 08/27/2025 11:03 PM EDT [facility] Specimen Type POC Capillary 08/27/2025 11:03 PM EDT [facility] Blood Capillary blood specimen / Unknown 08/27/2025 11:01 PM EDT 08/27/2025 11:03 PM EDT us Alvaro Adrian DMD, MD LAB POINT OF CA RE TEST DOCKED DEVICE UNSOLICITED RESULTS Final Result Performing Organization Address City/State/[facility] Co de Phone Number [facility] [address] [place] [address] * (ABNORMAL) POCT glucose meter (08/27/2025 5:49 PM EDT) POCT Glucose 119(H) 74 - 99 mg/dL [...] for testing. Comment 08/27/2025 5:54 PM EDT [facility] Supervisor Sewer System ID Kanika Garay 08/27/2025 5:54 PM EDT [facility] Device ID [id number] 08/27/2025 5:54 PM EDT [facility] Specimen Type POC Capillary 08/27/2025 5:54 PM EDT [facility] Blood Capillary blood specimen / Unknown 08/27/2025 5:49 PM EDT 08/27/2025 5:54 PM EDT us Alvaro Adrian DMD, MD LAB POINT OF [place] RE TEST DOCKED DEVICE UNSOLICITED RESULTS Final Result Performing Organization Address City/[facility] Co de Phone Number [facility] [address] [place] [address] * (ABNORMAL) POCT glucose meter (08/27/2025 11:38 AM EDT) Pathologist [facility] POCT Glucose 102(H) 74 - 99 mg/dL [...] for testing. Comment 08/27/2025 11:40 AM EDT [facility] Supervisor Sewer System ID Kanika Garay 08/27/2025 11:40 AM EDT [facility] Device ID [id number] 08/27/2025 11:40 AM EDT [facility] Specimen Type POC Capillary 08/27/2025 11:40 AM EDT [facility] Blood Capillary blood specimen / Unknown 08/27/2025 11:38 AM EDT 08/27/2025 11:40 AM EDT Alvaro Adrian DMD, MD LAB POINT OF MT RE TEST DOCKED DEVICE UNSOLICITED RESULTS Final Result Performing Organization Address City/[facility] Co de Phone Number [facility] [address] [place] [address] * (ABNORMAL) POCT glucose meter (08/27/2025 5:42 AM EDT) Pathologist [facility] POCT Glucose 144(H) 74 - 99 mg/dL [...] Comment 08/27/2025 5:43 AM EDT [facility] Supervisor Sewer System ID Kirsty Garcia 08/27/2025 5:43 AM EDT [facility] Device ID [id number] 08/27/2025 5:43 AM EDT [facility] Specimen Type POC Capillary 08/27/2025 5:43 AM EDT [facility] Blood Capillary blood specimen / Unknown 08/27/2025 5:42 AM EDT 08/27/2025 5:43 AM EDT us Alvaro Adrian DMD, MD LAB POINT OF CA RE TEST DOCKED DEVICE UNSOLICITED RESULTS Final Result Performing Organization Address City/[facility]/ZIP Co de Phone Number [facility] [address] [place] [address] * Phosphorus, Plasma (08/27/2025 3:44 AM EDT) Phosphorus, Plasma 3.5 2.5 - 4.5 mg/dL 08/27/2025 4:[address] [facility] Blood Venous blood specimen / Unknown Venipuncture / Unknown 08/27/2025 3:44 AM EDT 08/27/2025 3:59 AM EDT us Sin Min Lynn Singletary DMD, MD LAB BLOOD ORDERABLES Melida l Result Performing Organization Address City/[facility] [place] [address] * Magnesium, Plasma (08/27/2025 3:44 AM EDT) Magnesium, Plasma 2.1 1.9 - 2.4 mg/dL 08/27/2025 4:[address] [facility] Blood Venous blood specimen / Unknown Venipuncture / Unknown 08/27/2025 3:44 AM EDT 08/27/2025 3:59 AM EDT us Sin Min Lynn Singletary DMD, MD LAB BLOOD ORDERABLES Melida l Result Performing Organization Address City/[facility]/ZIP Co de Phone Number [facility] [address] [place] [address] * (ABNORMAL) CBC W/O Differential (08/27/2025 3:44 AM EDT) WBC Count 10.56(H) 3.70 - 10.30 10*3/uL LAB HEMATOLOGY METHOD 08/27/2025 4:[address] [facility] RBC Count 2.99(L) 4.60 - 6.10 10*6/uL LAB HEMATOLOGY METHOD 08/27/2025 4:[address] [facility] HGB 9.3(L) 13.7 - 17.5 g/dL LAB HEMATOLOGY METHOD 08/27/2025 4:[address] [facility] HCT 28.1(L) 40.0 - 51.0 % LAB HEMATOLOGY METHOD 08/27/2025 4:[address] [facility] Platelet Count 483(H) 155 - 369 10*3/uL LAB HEMATOLOGY METHOD 08/27/2025 4:[address] [facility] MCV 94 79 - 98 fL LAB HEMATOLOGY METHOD 08/27/2025 4:[address] [facility] MCH 31.1 26.0 - 32.0 pg LAB HEMATOLOGY METHOD 08/27/2025 4:[address] [facility] MCHC 33.1 30.7 - 35.5 g/dL LAB HEMATOLOGY METHOD 08/27/2025 4:[address] [facility] RDW 12.9 11.5 - 14.5 % LAB HEMATOLOGY METHOD 08/27/2025 4:[address] [facility] MPV 8.9 8.8 - 12.5 fL LAB HEMATOLOGY METHOD 08/27/2025 4:[address] [facility] nRBC 0.0 <=0.0 per 100 WBCs LAB HEMATOLOGY METHOD 08/27/2025 4:[address] [facility] Blood Venous blood specimen / Unknown Venipuncture / Unknown 08/27/2025 3:44 AM EDT 08/27/2025 4:00 AM EDT us Sin Min M Hayder [place] MD LAB BLOOD ORDERABLES Melida l Result [facility] [address] [place] [address] * (ABNORMAL) Basic Metabolic Panel, Plasma (08/27/2025 3:44 AM EDT) Glucose, Plasma 99 74 - 99 mg/dL 08/27/2025 4:[address] [facility] BUN, Plasma 17 7 - 21 mg/dL 08/27/2025 4:[address] [facility] Creatinine, Plasma 0.60(L) 0.70 - 1.20 mg/dL 08/27/2025 4:[address] [facility] BUN/Creatinine Ratio 28 08/27/2025 4:[address] [facility] Sodium, Plasma 135(L) 136 - 145 mmol/L 08/27/2025 4:[address] [facility] Potassium, Plasma 4.2 3.6 - 4.9 mmol/L 08/27/2025 4:[address] [facility] Chloride, Plasma 99 97 - 107 mmol/L 08/27/2025 4:[address] [facility] CO2, Plasma 28 22 - 29 mmol/L 08/27/2025 4:[address] [facility] Anion Gap 8 6 - 16 mmol/L 08/27/2025 4:[address] [facility] Total Calcium, Plasma 9.2 8.9 - 10.2 mg/dL 08/27/2025 4:[address] [facility] eGFRcr 116.1 mL/min/1.7 3m*2 08/27/2025 4:[address] [facility] Comment:Reported eGFRcr in m L/min/1.73m2 is based the CKD-EPI 2020 equation that does not use a race coefficient. Blood Venous blood specimen / Unknown Venipuncture / Unknown 08/27/2025 3:44 AM EDT 08/27/2025 3:59 AM EDT us Sin Min M Hayder [place] MD LAB BLOOD ORDERABLES Melida l Result Performing Organization Address City/[facility]/ZIP Co de Phone Number [facility] [address] [place] [address] * (ABNORMAL) POCT glucose meter (08/26/2025 11:56 PM EDT) [facility] POCT Glucose 103(H) 74 - 99 mg/dL [...] Comment 08/26/2025 11:57 PM EDT [facility] Supervisor [employer]er System ID Kirsty Garcia 08/26/2025 11:57 PM EDT HEALTH[facility]ARE LAB Device ID [id number] 08/26/2025 11:57 PM EDT [facility]ALTH[facility] Specimen Type POC Capillary 08/26/2025 11:57 PM EDT [facility] Blood Capillary blood specimen / Unknown 08/26/2025 11:56 PM EDT 08/26/2025 11:57 PM EDT Alvaro Adrian DMD, MD LAB POINT OF CA RE TEST DOCKED DEVICE UNSOLICITED RESULTS Final Result [facility] [address] [place] [address] * (ABNORMAL) POCT glucose meter (08/26/2025 6:27 PM EDT) [facility] POCT Glucose 106(H) 74 - 99 mg/dL [...] 08/26/2025 6:28 PM EDT [facility] Supervisor [employer]er System ID Isha Lemos 08/26/2025 6:28 PM EDT [facility] Device ID [id number] 08/26/2025 6:28 PM EDT [facility] Specimen Type POC Capillary 08/26/2025 6:28 PM EDT [facility] Blood Capillary blood specimen / Unknown 08/26/2025 6:27 PM EDT 08/26/2025 6:28 PM EDT Alvaro Adrian DMD, MD LAB POINT OF CA RE TEST DOCKED DEVICE UNSOLICITED RESULTS Final Result [facility] [address] [place] [address] * Wound VAC Dressing Changes (Non-Instillation) (08/26/2025 [...] POCT glucose meter (08/26/2025 12:48 PM EDT) POCT Glucose 84 74 - 99 mg/dL [...] 08/26/2025 12:50 PM EDT [facility] Supervisor [employer] System ID Isha Lemos 08/26/2025 12:50 PM EDT [facility] Device ID [id number] 08/26/2025 12:50 PM EDT [facility] Specimen Type POC Capillary 08/26/2025 12:50 PM EDT [facility] Blood Capillary blood specimen / Unknown 08/26/2025 12:48 PM EDT 08/26/2025 12:50 PM EDT us Alvaro Adrian DMD, MD LAB POINT OF MT RE TEST DOCKED DEVICE UNSOLICITED RESULTS Final Result Performing Organization Address City/[facility] Co de Phone Number [facility] [address] [place] [address] * POCT glucose meter (08/26/2025 5:44 AM EDT) [facility] POCT Glucose 95 74 - 99 mg/dL [...] 08/26/2025 5:46 AM EDT [facility] Supervisor [employer]er System ID Latisha Winter 08/26/2025 5:46 AM EDT [facility] Device ID [id number] 08/26/2025 5:46 AM EDT [facility] Specimen Type POC Capillary 08/26/2025 5:46 AM EDT [facility] Blood Capillary blood specimen / Unknown 08/26/2025 5:44 AM EDT 08/26/2025 5:46 AM EDT us Alvaro Adrian DMD, MD LAB POINT OF MT RE TEST DOCKED DEVICE UNSOLICITED RESULTS Final Result Performing Organization Address City/[facility] Co de Phone Number [facility] [address] [place] [address] * Phosphorus, Plasma (08/26/2025 3:27 AM EDT) [facility] Phosphorus, Plasma 4.0 2.5 - 4.5 mg/dL 08/26/2025 4:[address] [facility] Blood Venous blood specimen / Unknown Venipuncture / Unknown 08/26/2025 3:27 AM EDT 08/26/2025 3:38 AM EDT us Sin Min Lynn Singletary DMD, MD LAB BLOOD ORDERABLES Melida l Result Performing Organization Address [facility]/ZIP Co de Phone Number [facility] [address] [place] [address] * Magnesium, Plasma (08/26/2025 3:27 AM EDT) Magnesium, Plasma 2.2 1.9 - 2.4 mg/dL 08/26/2025 4:[address] [facility] Blood Venous blood specimen / Unknown Venipuncture / Unknown 08/26/2025 3:27 AM EDT 08/26/2025 3:38 AM EDT us Sin Min Lynn Singletary DMD, MD LAB BLOOD ORDERABLES Melida l Result Performing Organization Address [facility] Co de Phone Number [facility] [address] [place] [address] * (ABNORMAL) CBC W/O Differential (08/26/2025 3:27 AM EDT) WBC Count 11.66(H) 3.70 - 10.30 10*3/uL LAB HEMATOLOGY METHOD 08/26/2025 3:[address] [facility] RBC Count 3.00(L) 4.60 - 6.10 10*6/uL LAB HEMATOLOGY METHOD 08/26/2025 3:[address] [facility] HGB 9.2(L) 13.7 - 17.5 g/dL LAB HEMATOLOGY METHOD 08/26/2025 3:[address] [facility] HCT 28.1(L) 40.0 - 51.0 % LAB HEMATOLOGY METHOD 08/26/2025 3:[address] [facility] Platelet Count 455(H) 155 - 369 10*3/uL LAB HEMATOLOGY METHOD 08/26/2025 3:[address] [facility] MCV 94 79 - 98 fL LAB HEMATOLOGY METHOD 08/26/2025 3:[address] [facility] MCH 30.7 26.0 - 32.0 pg LAB HEMATOLOGY METHOD 08/26/2025 3:[address] [facility] MCHC 32.7 30.7 - 35.5 g/dL LAB HEMATOLOGY METHOD 08/26/2025 3:[address] [facility] RDW 12.6 11.5 - 14.5 % LAB HEMATOLOGY METHOD 08/26/2025 3:[address] [facility] MPV 9.0 8.8 - 12.5 fL LAB HEMATOLOGY METHOD 08/26/2025 3:[address] [facility] nRBC 0.0 <=0.0 per 100 WBCs LAB HEMATOLOGY METHOD 08/26/2025 3:[address] [facility] Blood Venous blood specimen / Unknown Venipuncture / Unknown 08/26/2025 3:27 AM EDT 08/26/2025 3:38 AM EDT us Sin Min M Hayder [place] MD LAB BLOOD ORDERABLES Melida mae Result [facility] [address] [place] [address] * (ABNORMAL) Basic Metabolic Panel, Plasma (08/26/2025 3:27 AM EDT) Glucose, Plasma 101(H) 74 - 99 mg/dL 08/26/2025 4:[address] [facility] BUN, Plasma 19 7 - 21 mg/dL 08/26/2025 4:[address] [facility] Creatinine, Plasma 0.59(L) 0.70 - 1.20 mg/dL 08/26/2025 4:[address] [facility] BUN/Creatinine Ratio 32 08/26/2025 4:[address] [facility] Sodium, Plasma 138 136 - 145 mmol/L 08/26/2025 4:[address] [facility] Potassium, Plasma 4.3 3.6 - 4.9 mmol/L 08/26/2025 4:[address] [facility] Chloride, Plasma 101 97 - 107 mmol/L 08/26/2025 4:[address] [facility] CO2, Plasma 25 22 - 29 mmol/L 08/26/2025 4:[address] [facility] Anion Gap 12 6 - 16 mmol/L 08/26/2025 4:[address] [facility] Total Calcium, Plasma 8.9 8.9 - 10.2 mg/dL 08/26/2025 4:[address] [facility] eGFRcr 116.7 mL/min/1.7 3m*2 08/26/2025 4:[address] [facility] Comment:Reported eGFRcr in m L/min/1.73m2 is based the CKD-EPI 2020 equation that does not use a race coefficient. Blood Venous blood specimen / Unknown Venipuncture / Unknown 08/26/2025 3:27 AM EDT 08/26/2025 3:38 AM EDT us Sin Min M Hayder [place] MD LAB BLOOD ORDERABLES Melida l Result [facility] [address] [place] [address] * (ABNORMAL) POCT glucose meter (08/25/2025 11:38 PM EDT) POCT Glucose 129(H) 74 - 99 mg/dL 08/26/2025 12:00 AM EDT [facility] Comment:Accuracy of a glucos e result [...] Comment 08/26/2025 12:00 AM EDT [facility] Supervisor [employer] ID Hailey Lund 08/26/2025 12:00 AM EDT [facility] Device ID [id number] 08/26/2025 12:00 AM EDT [facility] Specimen Type POC Capillary 08/26/2025 12:00 AM EDT [facility] Blood Capillary blood specimen / Unknown 08/25/2025 11:38 PM EDT 08/26/2025 12:00 AM EDT Alvaro Adrian DMD, MD LAB POINT OF CA RE TEST DOCKED DEVICE UNSOLICITED RESULTS Final Result Performing Organization Address City/[facility] Co de Phone Number [facility] [address] [place] [address] * POCT glucose meter (08/25/2025 5:08 PM EDT) POCT Glucose 91 74 - 99 mg/dL [...] for testing. Comment 08/25/2025 5:10 PM EDT [facility] Supervisor [employer] System ID Marily Cao 5:10 PM EDT [facility] Device ID [id number] 08/25/2025 5:10 PM EDT [facility] Specimen Type POC Capillary 08/25/2025 5:10 PM EDT [facility] Blood Capillary blood specimen / Unknown 08/25/2025 5:08 PM EDT 08/25/2025 5:10 PM EDT Alvaro Adrian DMD, MD LAB POINT OF CA RE TEST DOCKED DEVICE UNSOLICITED RESULTS Final Result Performing Organization Address City/[facility]/ZIP Co de Phone Number [facility] [address] [place] [address] * (ABNORMAL) POCT glucose meter (08/25/2025 11:42 AM EDT) POCT Glucose 112(H) 74 - 99 mg/dL [...] Comment 08/25/2025 12:00 PM EDT [facility] Supervisor [employer] System ID Marily Cao 12:00 PM EDT [facility] Device ID [id number] 08/25/2025 12:00 PM EDT [facility] Specimen Type POC Capillary 08/25/2025 12:00 PM EDT [facility] Blood Capillary blood specimen / Unknown 08/25/2025 11:42 AM EDT 08/25/2025 12:00 PM EDT us Alvaro Adrian DMD, MD LAB POINT OF CA RE TEST DOCKED DEVICE UNSOLICITED RESULTS Final Result Performing Organization Address City/State/[facility] Co de Phone Number [facility] [address] [place] [address] * POCT glucose meter (08/25/2025 5:02 AM EDT) [facility] POCT Glucose 83 74 - 99 mg/dL 08/25/2025 5:04 AM EDT [facility] Comment:Accuracy of a [...] Comment 08/25/2025 5:04 AM EDT [facility] Supervisor [employer] System ID Maxwell Ortega 5:04 AM EDT [facility] Device ID [id number] 08/25/2025 5:04 AM EDT [facility] Specimen Type POC Capillary 08/25/2025 5:04 AM EDT [facility] Blood Capillary blood specimen / Unknown 08/25/2025 5:02 AM EDT 08/25/2025 5:04 AM EDT us Alvaro Adrian DMD, MD LAB POINT OF MT RE TEST DOCKED DEVICE UNSOLICITED RESULTS Final Result Performing Organization Address City/[facility] Co de Phone Number [facility] [address] [place] [address] * (ABNORMAL) POCT glucose meter (08/24/2025 11:06 PM EDT) Pathologist [facility] POCT Glucose 107(H) 74 - 99 mg/dL [...] for testing. Comment 08/24/2025 11:08 PM EDT [facility] Supervisor [employer] System ID Hailey Lund 08/24/2025 11:08 PM EDT HEALTH[facility]ARE LAB Device ID [id number] 08/24/2025 11:08 PM EDT [facility] Specimen Type POC Capillary 08/24/2025 11:08 PM EDT [facility] Blood Capillary blood specimen / Unknown 08/24/2025 11:06 PM EDT 08/24/2025 11:08 PM EDT us Alvaro Adrian DMD, MD LAB POINT OF MT RE TEST DOCKED DEVICE UNSOLICITED RESULTS Final Result Performing Organization Address City/[facility] Co de Phone Number [facility] [address] [place] [address] * (ABNORMAL) POCT glucose meter (08/24/2025 5:33 PM EDT) Pathologist [facility] POCT Glucose 133(H) 74 - 99 mg/dL [...] 08/24/2025 5:35 PM EDT [facility] Supervisor [employer] System ID Renee Mills 08/24/2025 5:35 PM EDT [facility] Device ID [id number] 08/24/2025 5:35 PM EDT [facility] Specimen Type POC Capillary 08/24/2025 5:35 PM EDT [facility] Blood Capillary blood specimen / Unknown 08/24/2025 5:33 PM EDT 08/24/2025 5:35 PM EDT us Alvaro Adrian DMD, MD LAB POINT OF CA RE TEST DOCKED DEVICE UNSOLICITED RESULTS Final Result Performing Organization Address City/[facility] Co de Phone Number [facility] [address] [place] [address] * (ABNORMAL) POCT glucose meter (08/24/2025 12:32 PM EDT) [facility] POCT Glucose 117(H) 74 - 99 mg/dL [...] Comment 08/24/2025 12:38 PM EDT [facility] Supervisor Sewer System ID Renee Mills 08/24/2025 12:38 PM EDT [facility] LAB Device ID [id number] 08/24/2025 12:38 PM EDT [facility] Specimen Type POC Capillary 08/24/2025 12:38 PM EDT [facility] Blood Capillary blood specimen / Unknown 08/24/2025 12:32 PM EDT 08/24/2025 12:38 PM EDT us Alvaro Adrian DMD, MD LAB POINT OF CA RE TEST DOCKED DEVICE UNSOLICITED RESULTS Final Result Performing Organization Address City/[facility]/ZIP Co de Phone Number [facility] [address] [place] [address] * POCT glucose meter (08/24/2025 5:57 AM EDT) [facility] POCT Glucose 92 74 - 99 mg/dL 08/24/2025 5:59 AM EDT [facility] Comment:Accuracy of a [...] Comment 08/24/2025 5:59 AM EDT [facility] Supervisor Sewer System ID Morenita Lizama 025 5:59 AM EDT [facility]ALTH[facility]ARE LAB Device ID [id number] 08/24/2025 5:59 AM EDT [facility] Specimen Type POC Capillary 08/24/2025 5:59 AM EDT [facility] Blood Capillary blood specimen / Unknown 08/24/2025 5:57 AM EDT 08/24/2025 5:59 AM EDT us Alvaro Adrian DMD, MD LAB POINT OF CA RE TEST DOCKED DEVICE UNSOLICITED RESULTS Final Result Performing Organization Address City/State/[facility] Co de Phone Number [facility] [address] [place] [address] * (ABNORMAL) CBC W/O Differential (08/24/2025 3:29 AM EDT) [facility] WBC Count 10.15 3.70 - 10.30 10*3/uL LAB HEMATOLOGY METHOD 08/24/2025 4:[address] [facility] RBC Count 2.95(L) 4.60 - 6.10 10*6/uL LAB HEMATOLOGY METHOD 08/24/2025 4:[address] [facility] HGB 9.1(L) 13.7 - 17.5 g/dL LAB HEMATOLOGY METHOD 08/24/2025 4:[address] [facility] HCT 27.7(L) 40.0 - 51.0 % LAB HEMATOLOGY METHOD 08/24/2025 4:[address] [facility] Platelet Count 381(H) 155 - 369 10*3/uL LAB HEMATOLOGY METHOD 08/24/2025 4:[address] [facility] MCV 94 79 - 98 fL LAB HEMATOLOGY METHOD 08/24/2025 4:[address] [facility] MCH 30.8 26.0 - 32.0 pg LAB HEMATOLOGY METHOD 08/24/2025 4:[address] [facility] MCHC 32.9 30.7 - 35.5 g/dL LAB HEMATOLOGY METHOD 08/24/2025 4:[address] [facility] RDW 12.4 11.5 - 14.5 % LAB HEMATOLOGY METHOD 08/24/2025 4:[address] [facility] MPV 9.4 8.8 - 12.5 fL LAB HEMATOLOGY METHOD 08/24/2025 4:[address] [facility] nRBC 0.0 <=0.0 per 100 WBCs LAB HEMATOLOGY METHOD 08/24/2025 4:[address] [facility] Blood Venous blood specimen / Unknown Venipuncture / Unknown 08/24/2025 3:29 AM EDT 08/24/2025 4:01 AM EDT us Alvaro Adrian DMD, MD LAB BLOOD ORDERABLES Fi nal Result [facility] [address] [place] [address] * (ABNORMAL) Basic Metabolic Panel, Plasma (08/24/2025 3:29 AM EDT) Glucose, Plasma 107(H) 74 - 99 mg/dL 08/24/2025 4:[address] [facility] BUN, Plasma 17 7 - 21 mg/dL 08/24/2025 4:[address] [facility] Creatinine, Plasma 0.59(L) 0.70 - 1.20 mg/dL 08/24/2025 4:[address] [facility] BUN/Creatinine Ratio 29 08/24/2025 4:[address] [facility] Sodium, Plasma 137 136 - 145 mmol/L 08/24/2025 4:[address] [facility] Potassium, Plasma 3.9 3.6 - 4.9 mmol/L 08/24/2025 4:[address] [facility] Chloride, Plasma 101 97 - 107 mmol/L 08/24/2025 4:[address] [facility] CO2, Plasma 27 22 - 29 mmol/L 08/24/2025 4:[address] [facility] Anion Gap 9 6 - 16 mmol/L 08/24/2025 4:[address] [facility] Total Calcium, Plasma 8.8(L) 8.9 - 10.2 mg/dL 08/24/2025 4:[address] [facility] eGFRcr 116.7 mL/min/1.7 3m*2 08/24/2025 4:[address] [facility] Comment:Reported eGFRcr in m L/min/1.73m2 is based the CKD-EPI 2020 equation that does not use a race coefficient. Blood Venous blood specimen / Unknown Venipuncture / Unknown 08/24/2025 3:29 AM EDT 08/24/2025 3:59 AM EDT us Alvaro Adrian DMD, MD LAB BLOOD ORDERABLES Fi nal Result Performing Organization Address City/[facility]/ZIP Co de Phone Number [facility] [address] [place] [address] * Magnesium, Plasma (08/24/2025 3:29 AM EDT) Magnesium, Plasma 2.0 1.9 - 2.4 mg/dL 08/24/2025 4:[address] [facility] Blood Venous blood specimen / Unknown Venipuncture / Unknown 08/24/2025 3:29 AM EDT 08/24/2025 3:59 AM EDT us Alvaro Adrian DMD, MD LAB BLOOD ORDERABLES Fi nal Result [facility] [address] [place] [address] * Phosphorus, Plasma (08/24/2025 3:29 AM EDT) Phosphorus, Plasma 3.7 2.5 - 4.5 mg/dL 08/24/2025 4:[address] [facility] Blood Venous blood specimen / Unknown Venipuncture / Unknown 08/24/2025 3:29 AM EDT 08/24/2025 3:59 AM EDT us Alvaro Adrian DMD, MD LAB BLOOD ORDERABLES Fi nal Result Performing Organization Address City/[facility]/ZIP Co de Phone Number [facility] [address] [place] [address] * (ABNORMAL) POCT glucose meter (08/24/2025 12:46 [...] Comment 08/24/2025 12:48 AM EDT [facility] Supervisor [employer]er System ID Morenita Lizama 025 12:48 AM EDT [facility]ALTH[facility]ARE LAB Device ID [id number] 08/24/2025 12:48 AM EDT [facility] Specimen Type POC Capillary 08/24/2025 12:48 AM EDT [facility] Blood Capillary blood specimen / Unknown 08/24/2025 12:46 AM EDT 08/24/2025 12:48 AM EDT us Alvaro Adrian DMD, MD LAB POINT OF CA RE TEST DOCKED DEVICE UNSOLICITED RESULTS Final Result Performing Organization Address City/[facility]/ZIP Co de Phone Number [facility] [address] [place] [address] * POCT glucose meter (08/23/2025 6:45 PM EDT) POCT Glucose 83 74 - 99 mg/dL [...] for testing. Comment 08/23/2025 6:47 PM EDT [facility] Supervisor [employer]er System ID Nicole Doss 08/23/2025 6:47 PM EDT [facility] LAB Device ID [id number] 08/23/2025 6:47 PM EDT [facility] Specimen Type POC Capillary 08/23/2025 6:47 PM EDT [facility] Blood Capillary blood specimen / Unknown 08/23/2025 6:45 PM EDT 08/23/2025 6:47 PM EDT Alvaro Adrian DMD, MD LAB POINT OF CA RE TEST DOCKED DEVICE UNSOLICITED RESULTS Final Result Performing Organization Address City/State/[facility] Co de Phone Number [facility] [address] [place] [address] * POCT glucose meter (08/23/2025 1:07 PM EDT) [facility] POCT Glucose 98 74 - 99 [...] for testing. Comment 08/23/2025 1:10 PM EDT [facility] Supervisor [employer]er System ID Nicole Doss 08/23/2025 1:10 PM EDT [facility] Device ID [id number] 08/23/2025 1:10 PM EDT [facility] Specimen Type POC Capillary 08/23/2025 1:10 PM EDT [facility] Blood Capillary blood specimen / Unknown 08/23/2025 1:07 PM EDT 08/23/2025 1:10 PM EDT us Alvaro Sandy Adrian DMD, MD LAB POINT OF CA RE TEST DOCKED DEVICE UNSOLICITED RESULTS Final Result [facility] [address] [place] [address] * (ABNORMAL) CBC W/O Differential (08/23/2025 3:26 AM EDT) WBC Count 10.09 3.70 - 10.30 10*3/uL LAB HEMATOLOGY METHOD 08/23/2025 3:[address] [facility] RBC Count 3.11(L) 4.60 - 6.10 10*6/uL LAB HEMATOLOGY METHOD 08/23/2025 3:[address] [facility] HGB 9.5(L) 13.7 - 17.5 g/dL LAB HEMATOLOGY METHOD 08/23/2025 3:[address] [facility] HCT 29.1(L) 40.0 - 51.0 % LAB HEMATOLOGY METHOD 08/23/2025 3:[address] [facility] Platelet Count 326 155 - 369 10*3/uL LAB HEMATOLOGY METHOD 08/23/2025 3:[address] [facility] MCV 94 79 - 98 fL LAB HEMATOLOGY METHOD 08/23/2025 3:[address] [facility] MCH 30.5 26.0 - 32.0 pg LAB HEMATOLOGY METHOD 08/23/2025 3:[address] [facility] MCHC 32.6 30.7 - 35.5 g/dL LAB HEMATOLOGY METHOD 08/23/2025 3:[address] [facility] RDW 12.6 11.5 - 14.5 % LAB HEMATOLOGY METHOD 08/23/2025 3:[address] [facility] MPV 9.5 8.8 - 12.5 fL LAB HEMATOLOGY METHOD 08/23/2025 3:[address] [facility] nRBC 0.0 <=0.0 per 100 WBCs LAB HEMATOLOGY METHOD 08/23/2025 3:[address] [facility] Blood Venous blood specimen / Unknown Venipuncture / Unknown 08/23/2025 3:26 AM EDT 08/23/2025 3:34 AM EDT us Alvaro Adrian DMD, MD LAB BLOOD ORDERABLES Fi nal Result [facility] [address] [place] [address] * (ABNORMAL) Basic Metabolic Panel, Plasma (08/23/2025 3:26 AM EDT) Glucose, Plasma 100(H) 74 - 99 mg/dL 08/23/2025 4:[address] [facility] BUN, Plasma 15 7 - 21 mg/dL 08/23/2025 4:[address] [facility] Creatinine, Plasma 0.58(L) 0.70 - 1.20 mg/dL 08/23/2025 4:[address] [facility] BUN/Creatinine Ratio 26 08/23/2025 4:[address] [facility] Sodium, Plasma 137 136 - 145 mmol/L 08/23/2025 4:[address] [facility] Potassium, Plasma 4.0 3.6 - 4.9 mmol/L 08/23/2025 4:[address] [facility] Chloride, Plasma 102 97 - 107 mmol/L 08/23/2025 4:[address] [facility] CO2, Plasma 25 22 - 29 mmol/L 08/23/2025 4:[address] [facility] Anion Gap 10 6 - 16 mmol/L 08/23/2025 4:[address] [facility] Total Calcium, Plasma 8.7(L) 8.9 - 10.2 mg/dL 08/23/2025 4:[address] [facility] eGFRcr 117.3 mL/min/1.7 3m*2 08/23/2025 4:[address] [facility] Comment:Reported eGFRcr in m L/min/1.73m2 is based the CKD-EPI 2020 equation that does not use a race coefficient. Blood Venous blood specimen / Unknown Venipuncture / Unknown 08/23/2025 3:26 AM EDT 08/23/2025 3:35 AM EDT us Alvaro Adrian DMD, MD LAB BLOOD ORDERABLES Fi nal Result Performing Organization Address City/[facility]/[place] [address] * Magnesium, Plasma (08/23/2025 3:26 AM EDT) Magnesium, Plasma 2.0 1.9 - 2.4 mg/dL 08/23/2025 4:[address] [facility] Blood Venous blood specimen / Unknown Venipuncture / Unknown 08/23/2025 3:26 AM EDT 08/23/2025 3:35 AM EDT us Alvaro Adrian DMD, MD LAB BLOOD ORDERABLES Fi nal Result Performing Organization Address [facility] [place] [address] * Phosphorus, Plasma (08/23/2025 3:26 AM EDT) Phosphorus, Plasma 3.3 2.5 - 4.5 mg/dL 08/23/2025 4:[address] [facility] Blood Venous blood specimen / Unknown Venipuncture / Unknown 08/23/2025 3:26 AM EDT 08/23/2025 3:35 AM EDT us Alvaro Adrian DMD, MD LAB BLOOD ORDERABLES Fi nal Result Performing Organization Address City/[facility]/[place] [address] * Phosphorus (08/22/2025 5:02 AM EDT) Phosphorus, Plasma 3.1 2.5 - 4.5 mg/dL 08/22/2025 6:[address] [facility] Blood Venous blood specimen / Unknown Venipuncture / Unknown 08/22/2025 5:02 AM EDT 08/22/2025 5:33 AM EDT us Marvin Santana MD LAB BLOOD ORDERABLES Fin al Result [facility] [address] [place] [address] * Magnesium (08/22/2025 5:02 AM EDT) Magnesium, Plasma 2.0 1.9 - 2.4 mg/dL 08/22/2025 6:[address] [facility] Blood Venous blood specimen / Unknown Venipuncture / Unknown 08/22/2025 5:02 AM EDT 08/22/2025 5:33 AM EDT us Marvin Santana MD LAB BLOOD ORDERABLES Fin al Result Performing Organization Address City/[facility]/ZIP Co de Phone Number [facility] [address] [place] [address] * (ABNORMAL) Basic metabolic panel (08/22/2025 5:02 AM EDT) Glucose, Plasma 95 74 - 99 mg/dL 08/22/2025 6:[address] [facility] BUN, Plasma 15 7 - 21 mg/dL 08/22/2025 6:[address] [facility] Creatinine, Plasma 0.52(L) 0.70 - 1.20 mg/dL 08/22/2025 6:[address] [facility] BUN/Creatinine Ratio 29 08/22/2025 6:[address] [facility] Sodium, Plasma 139 136 - 145 mmol/L 08/22/2025 6:[address] [facility] Potassium, Plasma 3.8 3.6 - 4.9 mmol/L 08/22/2025 6:[address] [facility] Chloride, Plasma 102 97 - 107 mmol/L 08/22/2025 6:[address] [facility] CO2, Plasma 27 22 - 29 mmol/L 08/22/2025 6:[address] [facility] Anion Gap 10 6 - 16 mmol/L 08/22/2025 6:[address] [facility] Total Calcium, Plasma 8.8(L) 8.9 - 10.2 mg/dL 08/22/2025 6:[address] [facility] eGFRcr 121.3 mL/min/1.7 3m*2 08/22/2025 6:[address] [facility] Comment:Reported eGFRcr in m L/min/1.73m2 is based the CKD-EPI 2020 equation that does not use a race coefficient. Blood Venous blood specimen / Unknown Venipuncture / Unknown 08/22/2025 5:02 AM EDT 08/22/2025 5:33 AM EDT us Marvin Santana MD LAB BLOOD ORDERABLES Fin al Result [facility] [address] [place] [address] * (ABNORMAL) CBC W/O Differential (08/22/2025 5:02 AM EDT) WBC Count 11.20(H) 3.70 - 10.30 10*3/uL LAB HEMATOLOGY METHOD 08/22/2025 5:[address] [facility] RBC Count 3.19(L) 4.60 - 6.10 10*6/uL LAB HEMATOLOGY METHOD 08/22/2025 5:[address] [facility] HGB 9.8(L) 13.7 - 17.5 g/dL LAB HEMATOLOGY METHOD 08/22/2025 5:[address] [facility] HCT 29.6(L) 40.0 - 51.0 % LAB HEMATOLOGY METHOD 08/22/2025 5:[address] [facility] Platelet Count 271 155 - 369 10*3/uL LAB HEMATOLOGY METHOD 08/22/2025 5:[address] [facility] MCV 93 79 - 98 fL LAB HEMATOLOGY METHOD 08/22/2025 5:[address] [facility] MCH 30.7 26.0 - 32.0 pg LAB HEMATOLOGY METHOD 08/22/2025 5:[address] [facility] MCHC 33.1 30.7 - 35.5 g/dL LAB HEMATOLOGY METHOD 08/22/2025 5:[address] [facility] RDW 12.6 11.5 - 14.5 % LAB HEMATOLOGY METHOD 08/22/2025 5:[address] [facility] MPV 9.5 8.8 - 12.5 fL LAB HEMATOLOGY METHOD 08/22/2025 5:[address] [facility] nRBC 0.0 <=0.0 per 100 WBCs LAB HEMATOLOGY METHOD 08/22/2025 5:[address] [facility] Blood Venous blood specimen / Unknown Venipuncture / Unknown 08/22/2025 5:02 AM EDT 08/22/2025 5:32 AM EDT us Marvin Santana MD LAB BLOOD ORDERABLES Fin al Result [facility] [address] [place] [address] * (ABNORMAL) CBC W/O Differential (08/20/2025 5:56 AM EDT) WBC Count 16.03(H) 3.70 - 10.30 10*3/uL LAB HEMATOLOGY METHOD 08/20/2025 6:[address] [facility] RBC Count 3.46(L) 4.60 - 6.10 10*6/uL LAB HEMATOLOGY METHOD 08/20/2025 6:[address] [facility] HGB 10.8(L) 13.7 - 17.5 g/dL LAB HEMATOLOGY METHOD 08/20/2025 6:[address] [facility] HCT 31.2(L) 40.0 - 51.0 % LAB HEMATOLOGY METHOD 08/20/2025 6:[address] [facility] Platelet Count 290 155 - 369 10*3/uL LAB HEMATOLOGY METHOD 08/20/2025 6:[address] [facility] MCV 90 79 - 98 fL LAB HEMATOLOGY METHOD 08/20/2025 6:[address] [facility] MCH 31.2 26.0 - 32.0 pg LAB HEMATOLOGY METHOD 08/20/2025 6:[address] [facility] MCHC 34.6 30.7 - 35.5 g/dL LAB HEMATOLOGY METHOD 08/20/2025 6:[address] [facility] RDW 12.6 11.5 - 14.5 % LAB HEMATOLOGY METHOD 08/20/2025 6:[address] [facility] MPV 9.7 8.8 - 12.5 fL LAB HEMATOLOGY METHOD 08/20/2025 6:[address] [facility] nRBC 0.0 <=0.0 per 100 WBCs LAB HEMATOLOGY METHOD 08/20/2025 6:[address] [facility] Blood Venous blood specimen / Unknown Venipuncture / Unknown 08/20/2025 5:56 AM EDT 08/20/2025 6:09 AM EDT us Marvin Santana MD LAB BLOOD ORDERABLES Fin al Result [facility] [address] [place] [address] * (ABNORMAL) Basic Metabolic Panel, Plasma (08/20/2025 5:56 AM EDT) Glucose, Plasma 140(H) 74 - 99 mg/dL 08/20/2025 6:[address] [facility] BUN, Plasma 16 7 - 21 mg/dL 08/20/2025 6:[address] [facility] Creatinine, Plasma 0.64(L) 0.70 - 1.20 mg/dL 08/20/2025 6:[address] [facility] BUN/Creatinine Ratio 25 08/20/2025 6:[address] [facility] Sodium, Plasma 136 136 - 145 mmol/L 08/20/2025 6:[address] [facility] Potassium, Plasma 5.2(H) 3.6 - 4.9 mmol/L 08/20/2025 6:[address] [facility] Comment:Hemolyzed, result ma y be falsely increased. Chloride, Plasma 101 97 - 107 mmol/L 08/20/2025 6:[address] [facility] CO2, Plasma 23 22 - 29 mmol/L 08/20/2025 6:[address] [facility] Anion Gap 12 6 - 16 mmol/L 08/20/2025 6:[address] [facility] Total Calcium, Plasma 8.6(L) 8.9 - 10.2 mg/dL 08/20/2025 6:[address] [facility] eGFRcr 113.9 mL/min/1.7 3m*2 08/20/2025 6:[address] [facility] Comment:Reported eGFRcr in m L/min/1.73m2 is based the CKD-EPI 2020 equation that does not use a race coefficient. Blood Venous blood specimen / Unknown Venipuncture / Unknown 08/20/2025 5:56 AM EDT 08/20/2025 6:08 AM EDT Marvin Santana MD LAB BLOOD ORDERABLES Fin al Result Performing Organization Address City/[facility]/ZIP Co de Phone Number [facility] [address] [place] [address] * (ABNORMAL) Magnesium, Plasma (08/20/2025 5:56 AM EDT) Magnesium, Plasma 1.8(L) 1.9 - 2.4 mg/dL 08/20/2025 6:[address] [facility] Blood Venous blood specimen / Unknown Venipuncture / Unknown 08/20/2025 5:56 AM EDT 08/20/2025 6:08 AM EDT Marvin Santana MD LAB BLOOD ORDERABLES Fin al Result [facility] [address] [place] [address] * Phosphorus, Plasma (08/20/2025 5:56 AM EDT) Phosphorus, Plasma 3.2 2.5 - 4.5 mg/dL 08/20/2025 6:[address] [facility] Blood Venous blood specimen / Unknown Venipuncture / Unknown 08/20/2025 5:56 AM EDT 08/20/2025 6:08 AM EDT us Marvin Santana MD LAB BLOOD ORDERABLES Fin al Result [facility] [address] [place] [address] * XR Abdomen 1 View (08/19/2025 8:37 [...] of the abdomen. COMPARISON: None. FINDINGS: Limited [id number] abdominal radiograph for the purpose of locating tube position. The tip of the feeding tube is within the proximal stomach. Procedure Note Patricio Trevino MD - 08/19/2025 CLINICAL INDICATION: DHT placement TECHNIQUE: Supine radiograph of the abdomen. COMPARISON: None. FINDINGS: Limited [id number] abdominal radiograph for the purpose of locatingtube [...] at day 1 08/21/2025 7:[address] [facility] Swab (Nares and Nini Rectal) Non-blood Collection / Unknown 08/19/2025 8:19 PM EDT 08/19/2025 8:[address] [facility] - 08/21/2025 7:33 AM EDT This test was developed and its performance characteristics determined by the [facility]. Although the media is FDA-approved, it is not FDA-approved for all specimen types submitted. The FDA has determined that such clearance or approval is not necessary. This test is used for surveillance purposes. It should not be regarded as investigational or for research. The [facility] is certified under the Clinical Laboratory Improvement Amendments of 1988 (CLIA-88) as qualified to perform high complexity clinical laboratory testing. Marvin Santana MD LAB MICROBIOLOGY - GENER AL ORDERABLES Final Result Performing Organization Address [facility] Co de Phone Number [facility] [address] [place] [address] * Cecelia auris Surveillance by PCR (08/19/2025 8:19 PM EDT) Cecelia auris PCR Result Not Detected Not Detected 08/21/2025 10:33 AM EDT [facility] Swab (Axilla and Groin) Non-blood Collection / Unknown 08/19/2025 8:19 PM EDT 08/19/2025 8:[address] [facility] - 08/21/2025 10:33 AM EDT This PCR assay was developed and its performance characteristics determined by [facility] as appropriate for clinical purposes. This assay has not been cleared or approved by the FDA, but is performed in a CLIA regulated laboratory that is qualified to perform high-complexity testing. Marvin Santana MD LAB MICROBIOLOGY - GENER AL ORDERABLES Final Result Performing Organization Address [facility] Co de Phone Number [facility] [address] [place] [address] * (ABNORMAL) Blood gas, arterial (08/19/2025 12:23 PM EDT) pH, Arterial 7.38 7.35 - 7.45 LAB HEMATOLOGY METHOD 08/19/2025 12:[address] [facility] pCO2, Arterial 42 32 - 45 mmHg LAB HEMATOLOGY METHOD 08/19/2025 12:[address] [facility] pO2, Arterial 107 83 - 108 mmHg LAB HEMATOLOGY METHOD 08/19/2025 12:[address] [facility] SO2, Measured, Arterial 99(H) 94 - 98 % LAB HEMATOLOGY METHOD 08/19/2025 12:[address] [facility] Base Excess, Arterial -0.8 -2.0 - 3.0 mmol/L LAB HEMATOLOGY METHOD 08/19/2025 12:[address] [facility] Bicarbonate, Calculated, Arterial 24 22 - 26 mmol/L LAB HEMATOLOGY METHOD 08/19/2025 12:[address] [facility] Hematocrit, Whole Blood 38.9(L) 40.0 - 51.0 % LAB HEMATOLOGY METHOD 08/19/2025 12:[address] [facility] Sodium, Whole Blood 138 136 - 145 mmol/L LAB HEMATOLOGY METHOD 08/19/2025 12:[address] [facility] Potassium, Whole Blood 3.7 3.6 - 4.9 mmol/L LAB HEMATOLOGY METHOD 08/19/2025 12:[address] [facility] Chloride, Whole Blood 105 97 - 107 mmol/L LAB HEMATOLOGY METHOD 08/19/2025 12:[address] [facility] Glucose, Whole Blood 146(H) 74 - 99 mg/dL LAB HEMATOLOGY METHOD 08/19/2025 12:[address] [facility] Ionized Calcium, Whole Blood 4.5(L) 4.6 - 5.1 mg/dL LAB HEMATOLOGY METHOD 08/19/2025 12:[address] [facility] Lactate, Arterial, Whole Blood 1.0 0.5 - 1.6 mmol/L LAB HEMATOLOGY METHOD 08/19/2025 12:[address] 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 [address] [place] [address] * Surgical Pathology Exam (08/19/2025 10:32 AM EDT) Case Report Surgical Pathology Case: [id number] Authorizing Provider: Marvin Santana MD Collected: 08/19/2025 0917 Ordering Location: [facility] A OPERATING ROOM Received: 08/19/2025 [id number] Pathologist: Timothy Chacon MD Intraop: Nabila Hendrickson [...] fresh for permanent 08/28/2025 11:[address] [facility] Addendum This addendum is to document the provided clinical history. There is no change in the final diagnosis. Floor of mouth squamous cell carcinoma 08/28/2025 11:[address] [facility] Addendum electronically signed by Ellen [...] FOR CARCINOMA (0/20) 08/28/2025 11:[address] [facility] at 1949 EDT Comment:This is [...] in part L. 08/28/2025 11:[address] [facility] Comment:This is an appended report. [...] pN Category: pN1 08/28/2025 11:[address] [facility] Clinical Information No Dx Found. 08/28/2025 11:[address] [facility] Comment:This is an appended report. [...] TUMOR IDENTIFIED. NO 08/28/2025 11:[address] [facility] Comment:Corrected result: Pr eviously reported [...] a robin-white, papillary, irregularly-shap ed 2.4 cm (anterior-shower maid ior) by 1.9 (superior-inferi or) lesion that appears to abut the posterior and inferior margins. Gross photographs both pre ink and inked are provided. Ink code: Blue-anterior Red-superior Green-inferior Black-posterior [place]-medial Uninked (with lesion)-lateral Specimen is serially sectioned [...] is received fresh, [facility] and consists of a 4.9 [...] received fresh, placed in formalin labeled l t mandible, short-short lateral, long-short anterior, long-long medial and consists of left brandyn mandibulectomy measuring 10.0 cm (anterior-shower maid ior) x 4.6 cm (left-right) x 3.5 cm (superior-inferi or) with an attached ramus measuring 6.2 cm (superior-inferi or) x 0.6 cm (left-right) x 1.3 cm (anterior-shower maid ior). The specimen is oriented by a short-short stitch on the lateral soft tissue, a long-short stitch on the anterior soft tissue and a long-long stitch on the medial soft tissue. The attached medial soft tissue measures 3.4 (left-right) by 8.4 (anterior-shower maid ior) by 2.0 (superior-inferi or), and is [...] and the gingiva there is a 3.4 (anterior-shower maid ior by 1.8 (superior-inferi or by 0.8 [...] no other interosseous lesions are grossly noted Activity Manager sections are submitted as follows: L1: Anterior mucosal and soft tissue margin L2: Lateral mucosal and soft tissue margin L3: Medial mucosal and soft tissue margin L4: Posterior mucosal and soft tissue margin L5: Inferior soft tissue margin L6: Mass 2 L7-L9: Mass 1, deepest bone invasion in L9 L10: Mandibular interosseous lesion L11: Softened bone adjacent to lesion L12: Activity Manager sample of lesion Cold Time: 0 Marvel [...] Marvel Herrera MD 08/28/2025 11:[address] [facility] Comment:This is an appended report. These results have been appended to a previously preliminary verified report. Note: A resident was involved in the service. I attest I examined the relevant preparations for the specimens and confirmed the diagnosis or interpretation. 08/28/2025 11:[address] [facility] Comment:This is an appended report. [...] EDT 08/19/2025 2:41 PM EDT us Alvaro Delgado Nguyễn [place] MD LAB PATHOLOGY ORDERABLE S Edited Result - Final [facility] [address] [place] [address] * Surgical Pathology Exam (08/19/2025 9:17 AM EDT) Case Report Surgical Pathology Case: [id number] Authorizing Provider: Marvin Santana MD Collected: 08/19/2025 0917 Ordering Location: [facility] A OPERATING ROOM Received: 08/19/2025 8187 Pathologist: Timothy Chacon MD Intraop: Nabila Hendrickson [...] fresh for permanent 08/28/2025 11:[address] [facility] Addendum This addendum is to document the provided clinical history. There is no change in the final diagnosis. Floor of mouth squamous cell carcinoma 08/28/2025 11:[address] [facility] Addendum electronically signed by Ellen [...] FOR CARCINOMA (0/20) 08/28/2025 11:[address] [facility] at 1949 EDT Comment:This is [...] in part L. 08/28/2025 11:[address] [facility] Comment:This is an appended report. [...] pN Category: pN1 08/28/2025 11:[address] [facility] Clinical Information No Dx Found. 08/28/2025 11:[address] [facility] Comment:This is an appended report. [...] TUMOR IDENTIFIED. NO 08/28/2025 11:[address] [facility] Comment:Corrected result: Pr eviously reported [...] cassette H1 Cold Time: 4h 20m Marvel Hrerera MD I. LEFT ANTERIOR TONGUE, LONG LONG [...] a robin-white, papillary, irregularly-shap ed 2.4 cm (anterior-shower maid ior) by 1.9 (superior-inferi or) lesion that appears to abut the posterior and inferior margins. Gross photographs both pre ink and inked are provided. Ink code: Blue-anterior Red-superior Green-inferior Black-posterior Mil[place]-medial Uninked (with lesion)-lateral Specimen is serially sectioned [...] received fresh, placed in formalin labeled l t level 1A and consists of a 4.3 [...] of left brandyn mandibulectomy measuring 10.0 cm (anterior-shower maid ior) x 4.6 cm (left-right) x 3.5 cm (superior-inferi or) with an attached ramus measuring 6.2 cm (superior-inferi or) x 0.6 cm (left-right) x 1.3 cm (anterior-shower maid ior). The specimen is oriented by a short-short stitch on the lateral soft tissue, a long-short stitch on the anterior soft tissue and a long-long stitch on the medial soft tissue. The attached medial soft tissue measures 3.4 (left-right) by 8.4 (anterior-shower maid ior) by 2.0 (superior-inferi or), and is [...] and the gingiva there is a 3.4 (anterior-shower maid ior by 1.8 (superior-inferi or by 0.8 [...] no other interosseous lesions are grossly noted Activity Manager sections are submitted as follows: L1: Anterior mucosal and soft tissue margin L2: Lateral mucosal and soft tissue margin L3: Medial mucosal and soft tissue margin L4: Posterior mucosal and soft tissue margin L5: Inferior soft tissue margin L6: Mass 2 L7-L9: Mass 1, deepest bone invasion in L9 L10: Mandibular interosseous lesion L11: Softened bone adjacent to lesion L12: Activity Manager sample of lesion Cold Time: 0 Marvel Herrera MD M. LEFT LEVEL NECK 2, FRESH FOR PERMANENT Specimen is received fresh, placed in formalin labeled l t level neck 2 and consists of a [...] received fresh, placed in formalin labeled l t level neck 3 a nd consists of [...] Marvel Herrera MD 08/28/2025 11:[address] [facility] Comment:This is an appended report. These results have been appended to a previously preliminary verified report. Note: A resident was involved in the service. I attest I examined the relevant preparations for the specimens and confirmed the diagnosis or interpretation. 08/28/2025 11:[address] [facility] Comment:This is an appended report. [...] EDT 08/19/2025 2:41 PM EDT us Marvin Santana MD LAB PATHOLOGY ORDERABLES Edited Result - Final [facility] [address] [place] [address] * (ABNORMAL) Blood gas, arterial (08/19/2025 9:07 AM EDT) pH, Arterial 7.38 7.35 - 7.45 LAB HEMATOLOGY METHOD 08/19/2025 9:[address] [facility] pCO2, Arterial 44 32 - 45 mmHg LAB HEMATOLOGY METHOD 08/19/2025 9:[address] [facility] pO2, Arterial 195(H) 83 - 108 mmHg LAB HEMATOLOGY METHOD 08/19/2025 9:[address] [facility] SO2, Measured, Arterial 100(H) 94 - 98 % LAB HEMATOLOGY METHOD 08/19/2025 9:[address] [facility] Base Excess, Arterial 0.7 -2.0 - 3.0 mmol/L LAB HEMATOLOGY METHOD 08/19/2025 9:[address] [facility] Bicarbonate, Calculated, Arterial 26 22 - 26 mmol/L LAB HEMATOLOGY METHOD 08/19/2025 9:[address] [facility] Hematocrit, Whole Blood 36.2(L) 40.0 - 51.0 % LAB HEMATOLOGY METHOD 08/19/2025 9:[address] [facility] Sodium, Whole Blood 141 136 - 145 mmol/L LAB HEMATOLOGY METHOD 08/19/2025 9:[address] [facility] Potassium, Whole Blood 3.7 3.6 - 4.9 mmol/L LAB HEMATOLOGY METHOD 08/19/2025 9:[address] [facility] Chloride, Whole Blood 107 97 - 107 mmol/L LAB HEMATOLOGY METHOD 08/19/2025 9:[address] [facility] Glucose, Whole Blood 99 74 - 99 mg/dL LAB HEMATOLOGY METHOD 08/19/2025 9:[address] [facility] Ionized Calcium, Whole Blood 4.7 4.6 - 5.1 mg/dL LAB HEMATOLOGY METHOD 08/19/2025 9:[address] [facility] Lactate, Arterial, Whole Blood 1.1 0.5 - 1.6 mmol/L LAB HEMATOLOGY METHOD 08/19/2025 9:[address] [facility] Blood Arterial blood specimen / Unknown Arterial Puncture / Unknown 08/19/2025 9:07 AM EDT 08/19/2025 9:14 AM EDT us Kenneth Benavides CRNA LAB BLOOD ORDERABLES Final Result [facility] [address] [place] [address] * Type and Screen (08/19/2025 7:05 AM [...] ORD ERABLES Final Result Performing Organization Address City/[facility]/ZIP Co de Phone Number BLOOD BANK [address] [place] [address], documented in this encounter Visit Diagnoses Diagnosis [...] doses, Starting on 08/19/25 at 1638, Until Tue08/19/25 at 1959, Routine, [...] EDT 50 mcg lidocaine-EPINEPHrine (Xylocaine W/EPI) 1 %-1:350635 injection 10 mL 10 mL, Infiltration, Once, [...] on Tue08/19/25 at 2130, Last dose on Tue08/24/25 at [...] PRN, Starting on Tue08/21/25 at 1710, Until Jackie 08/22/25 at 1528, Routine, severe pain Given 08/22/2025 10:24 AM EDT 10 mg oxyCODONE (Roxicodone) immediate release tablet 10 mg 10 mg, Oral, Every 4 hours PRN, Starting on Jackie 08/22/25 at 1548, Until Tue08/25/25 at 0639, Routine, [...] Oral, Every 6 hours PRN, Starting on 08/19/25 at 0730, Until Tu08/20/25 at 0126, Routine, Recovery(Phase II-Outpatient)/On Unit(Inpatient), Moderate/Severe [...] daily, First dose (after last modification) on 08/26/25 at 0900, Until Discontinued, Routine Given 08/30/2025 [...] RN)0900 (Given - Provider: Marily Owens RN)1550 (JAN Hold - Provider: Automatic Transfer Provider - Reason: Patient in procedure)1600 (Dose Auto Held - Provider: Automatic Transfer Provider)192 (JAN Unhold - Provider: Automatic Transfer Provider)2048 (Given [...] (JAN Unhold - Provider: Automatic Transfer Provider) 0919 (Given - Provider: Kris Douglas RN) 0820 (Given - Provider: Kris Douglas RN) atorvastatin (Lipitor) tablet 20 mg 20 mg, Nasogastric, Daily, First dose on Tue08/21/25 at 1315, Until Discontinued 0858 (Given - Provider: Marily Owens RN)1550 (JAN Hold - Provider: Automatic Transfer Provider - Reason: Patient in procedure)192 (JAN Unhold - Provider: Automatic Transfer Provider) 0919 (Given - Provider: Kris Douglas RN) 0820 (Given - Provider: Kris Douglas RN) bacitracin (425g jar) ointment 1 Jar (CANCELED) 1 Jar, Topical, Daily, First dose on Tue08/19/25 at 1900, Until Discontinued, Routine 0900 (Given - Provider: Mariyl Owens RN)1550 ([facility] Hold - Provider: Automatic Transfer Provider - Reason: Patient in procedure)1922 ([facility] Unhold - Provider: Automatic Transfer Provider) 0924 (Given - Provider: Kris Douglas, RENATO) clindamycin (Cleocin) IV solution 900 mg (COMPLETED) 900 mg, Intravenous, Once, 1 dose, On Tue08/28/25 at 1815, Routine, Anesthesia Intraprocedure 1833 (New Bag - Provider: Sergio Melo, RENATO) esomeprazole (NexIUM) packet for suspension 40 mg 40 mg, Nasogastric, Daily, First dose on Tue08/22/25 at 0900, Until Discontinued 0858 (Given - Provider: Marily Owens RN)1550 ([facility] Hold - Provider: Automatic Transfer Provider - Reason: Patient in procedure)1922 ([facility] Unhold - Provider: Automatic Transfer Provider) 09 (Given - Provider: Kris Douglas RN) 08 (Given - Provider: Kris Douglas RN) gabapentin (Neurontin) capsule 300 mg 300 mg, Nasogastric, 3 times daily, First dose (after last modification) on Tue08/22/25 at 0900, Until Discontinued, Routine, Recovery(Phase II-Outpatient)/On Unit(Inpatient) 0859 (Given - Provider: Marily Owens RN)1550 ([facility] Hold - Provider: Automatic Transfer Provider - Reason: Patient in procedure)1600 (Dose Auto Held - Provider: Automatic Transfer Provider)1922 ([facility] Unhold - Provider: Automatic Transfer Provider)204 (Given - Provider: Carly Perez) 0919 (Given - Provider: Kris Douglas, RENATO)1616 (Given - Provider: Kris Douglas, RENATO)2000 (Given [...] Transfer Provider - Reason: Patient in procedure)1923 ([facility] Unhold - Provider: Automatic Transfer Provider)2048 (Given [...] Transfer Provider - Reason: Patient in procedure)1923 ([facility] Unhold - Provider: Automatic Transfer Provider) 0505 (Given - Provider: Carly Perez) 0515 (Given - Provider: Carly Perez) lidocaine-EPINEPHrine (Xylocaine W/EPI) 1 %-1:131224 injection 10 mL (COMPLETED) 10 mL, Infiltration, Once, 1 dose, On Jackie 08/29/25 at 0645, Routine 1126 (Given - Provider: Kris Douglas RN) melatonin tablet 6 mg 6 mg, Nasogastric, Nightly, First dose on 08/24/25 at 2100, Until Discontinued, Routine 1550 ([facility] Hold - Provider: Automatic Transfer Provider - Reason: Patient in procedure)1922 ([facility] Unhold - Provider: Automatic Transfer Provider)2047 (Given - Provider: Carly Perez) 1999 (Given - Provider: Carly Perez) metoprolol tartrate (Lopressor) split tablet 12.5 mg 12.5 mg, Nasogastric, 2 times daily, First dose on Tue08/20/25 at 1415, Until Discontinued, Routine 0859 (Given - Provider: Marily Owens RN)1550 ([facility] Hold - Provider: Automatic Transfer Provider - Reason: Patient in procedure)1922 ([facility] Unhold - Provider: Automatic Transfer Provider)2047 (Given - Provider: Carly Perez) 19 (Given - Provider: Kris Douglas RN)1999 (Given [...] Unit(Inpatient) 0858 (Given - Provider: Marily Owens RN)1550 ([facility] Hold - Provider: Automatic Transfer Provider - Reason: Patient in procedure)1922 ([facility] Unhold - Provider: Automatic Transfer Provider)2047 (Given - Provider: Carly Perez) 0921 (Not Given - Provider: Kris Douglas RN - Reason: Patient/family refused)1999 (Given - Provider: Carly Perez) 0948 (Given - Provider: Kris Douglas, RENATO) senna (Senokot) tablet 8.6 mg 8.6 mg, Nasogastric, 2 times daily, First dose on Tue08/23/25 at 0900, Until Discontinued, Routine 0858 (Given - Provider: Marily Owens RN)1550 ([facility] Hold - Provider: Automatic Transfer Provider - Reason: Patient in procedure)1922 ([facility] Unhold - Provider: Automatic Transfer Provider)2047 (Given - Provider: Carly Perez) 09 (Given - Provider: Kris Douglas, RENATO)1999 (Given - Provider: Carly Perez) 0949 (Given - Provider: Kris Douglas, RENATO) sodium chloride 3 % nebulizer solution 3 mL 3 mL, Nebulization, 2 times daily, First dose (after last modification) on 08/26/25 at 0900, Until Discontinued, Routine 0850 (Given - Provider: Devante Black)1550 ([facility] Hold - Provider: Automatic Transfer Provider - Reason: Patient in procedure)1922 ([facility] Unhold - Provider: Automatic Transfer Provider)2027 (Given - Provider: Dex Perez) 075 (Given - Provider: Gigi Killian)2144 (Given - Provider: Marvel Mcrae) 08 (Given - Provider: Kaleigh Peterson) PRN Medication Order 08/28/2025 08/29/2025 08/30/2025 bisacodyl (Dulcolax) suppository 10 mg 10 mg, Rectal, Once as needed, 1 dose, Starting on Tue08/27/25 at 0820, Until Tue08/30/25 at 1753, Routine, constipation 1550 ([facility] Hold - Provider: Automatic Transfer Provider - Reason: Patient in procedure)1922 ([facility] Unhold - Provider: Automatic Transfer Provider) bupivacaine-EPINEPHrine PF (Marcaine w/EPI) 0.25% -1:273673 injection (CANCELED) As needed, Starting on Tue08/28/25 [...] >/= 4 1747 (Given - Provider: Sergio Melo, RENATO)175 (Given - Provider: Sergio Melo RN) magnesium hydroxide (Milk of Magnesia) 400 MG/5ML suspension 30 mL 30 mL, Oral, Daily PRN, Starting on 08/25/25 at 1438, Until Tue08/30/25 at 1753, Routine, constipation 1550 ([facility] Hold - Provider: Automatic Transfer Provider - Reason: Patient in procedure)1922 ([facility] Unhold - Provider: Automatic Transfer Provider) ondansetron (Zofran) 4 MG/5ML solution 4 mg(Linked Group 2) 4 mg, Nasogastric, Every 6 hours PRN, Starting on 08/25/25 at 0637, Until Tue08/30/25 at 1753, Routine, Recovery(Phase II-Outpatient)/On Unit(Inpatient), nausea, vomiting 1550 ([facility] Hold - Provider: Automatic Transfer Provider - Reason: Patient in procedure)1922 ([facility] Unhold - Provider: Automatic Transfer Provider) ondansetron (Zofran) injection 4 mg(Linked Group 2) 4 mg, Intravenous, Every 6 hours PRN, Starting on 08/25/25 at 0637, Until Tue08/30/25 at 1753, Routine, Recovery(Phase II-Outpatient)/On Unit(Inpatient), vomiting, nausea 1550 ([facility] Hold - Provider: Automatic Transfer Provider - Reason: Patient in procedure)1922 ([facility] Unhold - Provider: Automatic Transfer Provider) oxyCODONE (Roxicodone) immediate release tablet 10 mg(Linked Group 3) 10 mg, Nasogastric, Every 4 hours PRN, Starting on 08/25/25 at 0638, Until Tue08/30/25 at 1753, Routine, severe pain 0452 (Given - Provider: James Juan RN)1550 ([facility] Hold - Provider: Automatic Transfer Provider - Reason: Patient in procedure)1922 ([facility] Unhold - Provider: Automatic Transfer Provider)2048 (Given - Provider: Carly Perez) 0230 (Given - Provider: Carly Perez)0728 (Given - Provider: Carly Perez)1400 (Given - Provider: Kris Douglas RN)2000 (Given - Provider: Carly Perez) 0252 (Given [...] documented as of this encounter Care Teams Desktop Publishing Specialist Relationship Specialty Start Date End Date Christina Arteaga APRN [address] [place] [address] PCP - General 06/20/25 Maxwell White DMD Darvin Cano [address] [place] [address] Referring Physician 06/24/25 documented as of this encounter
--- OUTSIDE RECORDS SUMMARY | 2025-08-19 06:45 | XMS_ITS | Encounter Summary ---
Author Organization [facility] Address [address] 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] Procedures KS BONE-SKIN GRAFT, MICROVASCULAR KS RECMPL WND HEAD,FAC,HAND 2.6-7.5 CM KS REPR,FACE,GENITAL,HAND,FT+5 CMCM/< KS LAYR CLOS WND REST BODY 12.6-20 CM KS RECONSTR MANDIBLE,BONE PLATE KS REMV MALIG JAW BONE RADICAL KS REMOVAL NODES, NECK,CERV CMPLT KS PART REMOVAL TONGUE,<1/2 KS BONE-SKIN GRAFT, MICROVASCULAR KS RECONSTR MANDIBLE,BONE PLATE KS RECMPL WND HEAD,FAC,HAND 2.6-7.5 CM KS REPR,FACE,GENITAL,HAND,FT+5 CMCM/< KS LAYR CLOS WND REST BODY 12.6-20 CM KS TRACHEOSTOMY, PLANNED Left mandibular reconstruction with right [...] DISSECTION, NECK, RADICAL GLOSSECTOMY Marvin Santana MD [address] [address] Phone: tel: fax: [facility] [address] [place] [address] Phone: tel: Referral ID Status Reason Start Date Expiration Date Visits Re quested Visits Authorized [id number] 1 1 Encounter Details Date Type Department Care Team (Late st Contact Info) Description 08/19/2025 7:45 AM EDT - 08/19/2025 11:20 PM EDT Surgery [facility] [address] [place] [id number] Marvin Santana MD [address] [address] Left mandibular reconstruction with right free fibula, complex closure of oral wound, [28597 (CPT ) +4 more] Surgery Details Date/Time Status Location OR Service Patient Class Case Class Case Type Trauma Case? 08/19/2025 7:45 AM Posted DANIE TRAVIS 2OR 17 Plastic Surgery Surgery Admit E-Electiv e Panel 1 Procedure LRB Anes Op Region Wound Class Comments Left mandibular reconstruction with right free fibula, complex closure of oral wound, Bilateral General Class I/ Clean CPT code: 13003, 90578, 53203, 18990, 33479. Time: 8 hours. Coordinate with Nguyễn Cooley [...] any time in the past [address] [facility], were you homeless or living in a senior care (including now)? No 08/20/2025 [facility] Utilities Answer Date Recorded In the past 12 months has th e [employer], gas, oil, or water company threatened to [...] Melendrez, DDS - 08/29/2025 6:50 AM EDT [facility] Oral & Maxillofacial Surgery Cancer Surgery [...] on 09/06/[address] Adrian. Address/Phone Number: [facility] [address] [facility] [place] [address] Thank you for the opportunity [...] Note Carlito Perez 54 y.o. male CSN: [id number] Admission: 08/19/2025 5:29 AM Primary Problem: Floor of mouth squamous cell carcinoma Primary Take Away Man: Primary Caregiver: Self Assistance Available at Discharge: Availability of Care Givers (#Hours): 24 hours Family/Take Away Man(s) Willingness Assessed to care for patient at home: Yes Family/Take Away Man(s) Readiness Assessed to care for patient at home: Yes Housing Circumstances-Z Codes: Housing Circumstances (select all that apply): None Applicable Patient Referred to Financial or Community Resources: Discharge Facility/Level of Care Needs: Discharge Facility/Level of Care Needs: 1-Anvf-Nbyqup Care [facility] Patient's Choice of Community Agency(s): Patient/Family Anticipated Services at Transition: Patient/Family Anticipated Services at Transition: caser DME/Equipment Needed after Discharge: Equipment Currently Used at Home: none Equipment Needed After Discharge: colostomy/ostomy supplies, walker, rolling, other (see comments) (wound vac) Readmission Within the Last 30 Days: Readmission Within the Last 30 Days: no previous admission in last 30 days Medicare Documentation: Follow-up: Alvaro Adrian DMD, MD [address] [facility] [address] Wound [id number] Follow up [facility] Address: [address] [place] [address] Follow up [facility] [employer] [facility]. [facility] Follow up [facility] Address: [address] [place], [address] Follow up Rolling walker, please keep equipment [...] Medically readyto discharge today. Accepted by above [facility]. They will call patient to arrange a home visit. Acceptedby above infusion pharmacy. They will deliver bedside and bedside nurse will provide a teaching session with patient/family. Patient agrees to dc home today and agrees with above DC plan. In??s Michelle. MARIANELA Sands, campaign management senior manager * Discharge Summary - Rusty Melendrez, DDS - 08/30/2025 12:45 PM EDT Images from the original note were not included. Hospitalization Admit Date/Time: 08/19/2025 5:29 AM Admitting Attending: Marvin Santana Discharge Date: 08/30/25 Discharge Attending Physician: Alvaro Adrian DMD PCP name and Address: Christina Arteaga APRN [address] [facility] [address] Referring provider name and address: Alvaro Adrian DMD, MD [address] [facility] [address] [place] [address] Chief Concern, Brief History of Present Illness, [...] clinic with Dr. Adrian on 09/06/25 at [facility] for follow-up. Surgeries and Procedures [...] Your Medications These medications were sent to [facility] [place], [place] - [address] [facility] [address] [facility] [address] acetaminophen 500 MG tablet aspirin 325 MG [...] cell carcinoma Squamous cell carcinoma of mandible [facility] Oral & Maxillofacial Surgery Cancer Surgery [...] on 09/06/[address] Adrian. Address/Phone Number: [facility] [address] [facility] [place] [address] Thank you for the opportunity to allow us to participate in your care. Please do not hesitate to contact our office if you have any questions or concerns. Outpatient Follow-Up Future Appointments Date Time Provider Department [place] 09/03/2025 8:15 AM Marvin Santana MD [facility] 09/06/2025 1:00 PM Alvaro Adrian DMD, [...] preparation for this discharge. Rusty Melendrez DDS [facility], PGY-1 Cosigned by Alvaro Adrian DMD, [...] Note Carlito Perez 54 y.o. male CSN: [id number] Admission: 08/19/2025 5:29 AM Primary Problem: Floor [...] Note Carlito Perez 54 y.o. male CSN: [id number] Room/Bed 128/128A Nutrition evaluation type: follow-up Reason [...] WNL) O2 Delivery Method: Humidified trach collar Lucie [...] for accuracy Estimated Needs: Kcal: 30-35 kcal/kg (5015-9877 kcal/d) Protein: 1.5-1.8 g/kg (131-157 g/d) Based [...] shellfish, penicillan CAD (coronary artery disease) Cancer ([facility] [id number] Coronary artery calcification Dental disease chipped teeth, jony block for vocal chord damage Fractures clavical surgery GERD (gastroesophageal reflux disease) 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 HLD (hyperlipidemia) HTN (hypertension) Hypothyroidism Reflux gastritis Substance abuse 1988 [2] Past Surgical History: Procedure Laterality Date APPENDECTOMY 1979 CARDIOTHORACIC PROCEDURE stents CAROTID STENT 04/26/2023 COLONOSCOPY 2023 CORONARY STENT PLACEMENT [id number] ORTHOPEDIC SURGERY repair to clavical OTHER SURGICAL [...] Care Family/Caregiver Present: Yes Family/Caregiver: (Adult Sister) Teaching Assistant: Not Applicable Presentation Oxygen Therapy: Supplemental oxygen [...] Mobility Bed Mobility Exam: Scooting/Bridging Level of [place]: Stand-by assist (anteriorly to EOB) Physical/Nonphysical Assist: Set-up required, Supervision, Verbal Cues Bed Mobility Exam: Supine to Sit Level of [place]: Stand-by assist (to the left) Physical/Nonphysical Assist: Set-up required, Supervision, Verbal Cues, Minimal cues, HOB elevated Transfers Transfer Exam: Sit to stand Level of [place]: Stand-by assist Physical/Nonphysical Assist: Set-up required, Supervision, Verbal Cues, Minimal cues Assistive Device: Walker, rolling Transfer Exam: Stand to Sit Level of [place]: Stand-by assist Physical/Nonphysical Assist: Supervision, Verbal Cues, [...] handout/printout provided for visual reference. Access Code: [email or web address] URL: [email or web address] Date: 08/29/2025 Exercises - Seated Elbow Flexion [...] Equipment for Bathing & Showering Standardized Assessments [facility] 6-Click Daily Activities Help from Other: Don/Doff Regular Lower Body Clothings: A lot Help From Other: Bathing: Little Help From Other: Toileting: None Help From Other: Don/Doff Upper Body Clothings: None Help From Other: Grooming: None Help From Other: Eating Meals: Little (DHT) [facility] 6 Click - Daily Activities Score: 20/24 [facility] Scoring Interpretation: Scores greater than 20.5 suggest [...] admission Level of Mobility Ambulatory- community Mobility [place] Independent gait without device History of Falls [...] unaware when pt may be discharged from [facility]. Teaching Assistant (if applicable) Not Applicable OBJECTIVE & INTERVENTIONS [...] Treatment Minutes 20 BED MOBILITY Level of [place] Physical/Non- physical Assist Adaptive Equipment Utilized Rolling/ Turning Scooting/ Bridging Stand-by assist Set-up required, Supervision, Verbal Cues Supine to Sit Stand-by assist Set-up required, Supervision, Verbal Cues, Minimal cues, HOB elevated Sit to Supine Interventions TRANSFERS Level of [place] Physical/Non- physical Assist Adaptive Equipment Utilized Sit to Stand Stand-by assist Set-up required, Supervision, Verbal Cues, Minimal cues Walker, rolling Stand to sit Stand-by assist Supervision, Verbal Cues, Minimal cues Walker, rolling Bed to Chair Toilet Transfer Shower Transfer Interventions AMBULATION Level of [place] Distance Adaptive Equipment Utilized Ambulation Standby assist, Minimal verbal cues 130' x 2 with seated rest break between each distance Rolling walker Comments Cues for safety awareness. CAPTAIN ROOM SERVICE presence was necessary for: * managing lines [...] clinic with Dr. Adrian on 09/06/25 at [facility] for follow-up. * Progress Notes [...] Units Date/Time Cecelia auris Surveillance by PCR [[id number]] (Normal) Collected: 08/19/252018 Order Status: Completed Specimen: Swab from Axilla and Groin Updated: 08/21/25 1033 Cecelia auris PCR Result Not Detected Narrative: This PCR assay was developed and its performance characteristics determined by [facility] as appropriate for clinical purposes. This assay has not been cleared or approved bythe FDA, but is performed in a CLIA regulated laboratory that is qualified to perform high-complexity testing. Multi Drug Resistance Test [[id number]] Collected: 08/19/252018 Order Status: Completed Specimen: Swab from Nares and Nini Rectal Updated: 08/21/25 0733 Culture No growth at day 1 Narrative: This test was developed and its performance characteristics determined by the [facility]. Although the media is FDA-approved, it is not FDA-approved for all specimen types submitted. The FDA has determined that such clearance or approval is not necessary. This test is used for surveillance purposes. It should not be regarded as investigational or for research. The [facility] is certified under the [...] with patient at bedside Rusty Melendrez DDS [facility], PGY-1 Cosigned by Alvaro Adrian DMD, MD [...] Renteria MD - 08/28/2025 9:37 PM EDT [facility] Department of Surgery Division of [...] nursing staff. I have notified senior resident/attending residential property consultant with any issues or concerns. * [...] PM EDT Operative Note Date: 08/28/25 Location: [place] OR Name: Saravanan Perez, : 1970, Diagnoses: [...] Attending Surgeon(s): * Marvin Santana - Primary Substation Operator Automatic(s): * Roma Rolon MD - Resident - [...] 3:03 PM. * Clinician Note - Coretta eHard I - 08/28/2025 2:43 PM EDT Physical [...] Maxillofacial Surgery Progress Note 08/28/2025 Carlito Perez [facility] Day: 11 Subjective HISTORY OF PRESENT ILLNESS [...] Intake/Output Summary (Last 24 hours) at 08/29/2025 0562 Last data filed at 08/29/2025 0400 Gross [...] Units Date/Time Cecelia auris Surveillance by PCR [[id number]] (Normal) Collected: 08/19/252018 Order Status: Completed Specimen: Swab from Axilla and Groin Updated: 08/21/25 1033 Cecelia auris PCR Result Not Detected Narrative: This PCR assay was developed and its performance characteristics determined by [facility] as appropriate for clinical purposes. This assay has not been cleared or approved bythe FDA, but is performed in a CLIA regulated laboratory that is qualified to perform high-complexity testing. Multi Drug Resistance Test [[id number]] Collected: 08/19/252018 Order Status: Completed Specimen: Swab from Nares and Nini Rectal Updated: 08/21/25 0733 Culture No growth at day 1 Narrative: This test was developed and its performance characteristics determined by the [facility]. Although the media is FDA-approved, it is not FDA-approved for all specimen types submitted. The FDA has determined that such clearance or approval is not necessary. This test is used for surveillance purposes. It should not be regarded as investigational or for research. The [facility] is certified under the [...] with patient at bedside Marcelino Laurent DMD [facility] automobile insurance claim examiner PGY-1 Pager #: [phone] Cosigned by Alvaro Adrian DMD, MD at [...] vac forms and supporting documentation sent to [employer] via email: Ethics Resource [email or web address]. * Care Plan - Don Dolan RN [...] Surgery [1] acetaminophen, 1,000 mg, Nasogastric, q6h JOVANIN aspirin, 324 mg, Nasogastric, Daily atorvastatin, 20 [...] Note Carlito Perez 54 y.o. male CSN: [id number] Admission: 08/19/2025 5:29 AM Primary Problem: Floor of mouth squamous cell carcinoma Anticipated Discharge Date: 08/30/25 Has Discharge Plans Changed? Medicare Second Notice: Housing Circumstances: Housing Circumstances Action Taken: Medically Ready for Discharge: Additional Comments TF order sent to [facility] via [employer], Marybel has been informed via secure chat. sent the wound vac forms to be fill out and signed by MD Adrian in order to request wound vac. CM messaged [facility] to hold delivery for trach supplies + RW As pt will discharge 08/30/25. POC reviewed with primary team. Refer to primary team's note for details. Pt is not medically readyfor discharge. anticipates readiness for discharge on 08/30/25 In??MARIANELA Bass, campaign management senior manager * Procedures - Senia Cross PA [...] from the original note were not included. [address] Suctioning Your Tracheostomy Important Call 911 right [...] tube. Move the catheter tip in a hoh as you pull the catheter out. ? [...] thoroughly. Last Reviewed Date: 2025 00:00:00 ?? 1249-7388 The [employer]. All rights reserved. This information is not intended as a substitute for professional medical care. Always follow your healthcare professional's instructions. * Rachell Lopez - Bob Masterson RN - 08/26/2025 10:29 AM EDT Images from the original note were not included. [address]22 Preventing a Surgical Site Infection A risk [...] of infection. ? Controlled body temperature. A aaotm-ewmj-yantjx temperature during or after surgery prevents oxygen [...] and water or with an alcohol-based hand can piler before and after caring for you. Don?t [...] away. Last Reviewed Date: 2024 00:00:00 ?? 1723-5917 The [employer]. All rights reserved. This information is not intended as a substitute for professional medical care. Always follow your healthcare professional's instructions. * Rachell Lopez - Bob Masterson RN - 08/26/2025 10:29 AM EDT Images from the original note were not included. [address]156 Tracheostomy Care You need to take care [...] breathing Last Reviewed Date: 2025 00:00:00 ?? 7279-1771 The [employer]. All rights reserved. This information is not intended as a substitute for professional medical care. Always follow your healthcare professional's instructions. * [facility] - Bob Masterson RN - 08/26/2025 10:29 [...] from the original note were not included. 03227 Negative Pressure Wound Therapy Negative pressure wound [...] device. Last Reviewed Date: 2024 00:00:00 ?? 3024-2913 The [employer]. All rights reserved. This information is not intended as a substitute for professional medical care. Always follow your healthcare professional's instructions. * [facility] - Bob Masterson RN - 08/26/2025 10:29 [...] Neck and shoulder stiffness or pain ? detention swelling (lymphedema) which can be reduced through [...] call the doctor? Call the clinic at [phone] if you have any of these: ? [...] lips Call 911 or go to the [facility] emergency department if you have [...] does not seem to beworking properly. 1. Fountain Brush Assembler the tube near the skin and [...] from the original note were not included. [address]751 Surgery for a Mouth or Throat Tumor [...] look Last Reviewed Date: 2024 00:00:00 ?? 6615-8389 The [employer]. All rights reserved. This information is not [...] with a towel and dry with a hair boiler operator on low setting to avoid burning. At [...] taking nutrition by feeding tube, the case aide in the hospital will give you information [...] call the doctor? Call the clinic at [phone] if you have any of these: ? [...] will change at bedside on 08/26 - [id number] mg for 1 month - Recommend 5 [...] Maxillofacial Surgery Progress Note 08/25/25 Carlito Perez [facility] Day: 7 Subjective HISTORY OF PRESENT ILLNESS [...] Units Date/Time Cecelia auris Surveillance by PCR [[id number]] (Normal) Collected: 08/19/252018 Order Status: Completed Specimen: Swab from Axilla and Groin Updated: 08/21/25 1033 Cecelia auris PCR Result Not Detected Narrative: This PCR assay was developed and its performance characteristics determined by [facility] as appropriate for clinical purposes. This assay has not been cleared or approved bythe FDA, but is performed in a CLIA regulated laboratory that is qualified to perform high-complexity testing. Multi Drug Resistance Test [[id number]] Collected: 08/19/252018 Order Status: Completed Specimen: Swab from Nares and Nini Rectal Updated: 08/21/25 0733 Culture No growth at day 1 Narrative: This test was developed and its performance characteristics determined by the [facility]. Although the media is FDA-approved, it is not FDA-approved for all specimen types submitted. The FDA has determined that such clearance or approval is not necessary. This test is used for surveillance purposes. It should not be regarded as investigational or for research. The [facility] is certified under the [...] with patient at bedside Marcelino Laurent DMD [facility] automobile insurance claim examiner PGY-1 Pager #: [phone] Cosigned by Alvaro Adrian DMD, MD at [...] will change at bedside on 08/26 - [id number] mg for 1 month - Recommend 5 [...] MD Plastic & Reconstructive Surgery PGY-4 Pager [phone] Cosigned by Marvin Santana MD at 08/26/2025 [...] provided Taken 08/24/2025 1303 by Kathy Lund contract clerk Interventions: medication (see MAR) Taken 08/23/20252134 by [...] probe site changed Taken 08/22/2025 0621 by Miay Al RN Pressure Reduction Devices: positioning supports [...] Note Carlito Perez 54 y.o. male CSN: [id number] Admission: 08/19/2025 5:29 AM Primary Problem: Floor of mouth squamous cell carcinoma Anticipated Discharge Date: 08/26/25 Referral for trach supplies and a RW placed in [facility]port and sent to [facility]. Trach supply order will be reviewed on Tuesday08/26/25. Contact information for primary CM included in referral for [facility] to follow up on 08/26/25. Additional Comments Halie Ledezma RN * Progress Notes - Marcelino Laurent DMD - 08/24/2025 10:27 AM EDT Images from the original note were not included. Oral & Maxillofacial Surgery Progress Note 08/24/25 [facility] Day: 6 Subjective HISTORY OF PRESENT [...] Units Date/Time Cecelia auris Surveillance by PCR [[id number]] (Normal) Collected: 08/19/252018 Order Status: Completed Specimen: Swab from Axilla and Groin Updated: 08/21/25 1033 Cecelia auris PCR Result Not Detected Narrative: This PCR assay was developed and its performance characteristics determined by [facility] as appropriate for clinical purposes. This assay has not been cleared or approved bythe FDA, but is performed in a CLIA regulated laboratory that is qualified to perform high-complexity testing. Multi Drug Resistance Test [[id number]] Collected: 08/19/252018 Order Status: Completed Specimen: Swab from Nares and Nini Rectal Updated: 08/21/25 0733 Culture No growth at day 1 Narrative: This test was developed and its performance characteristics determined by the [facility]. Although the media is FDA-approved, it is not FDA-approved for all specimen types submitted. The FDA has determined that such clearance or approval is not necessary. This test is used for surveillance purposes. It should not be regarded as investigational or for research. The [facility] is certified under the [...] with patient at bedside Marcelino Laurent DMD [facility] automobile insurance claim examiner PGY-1 Pager #: [phone] Cosigned by Alvaro Adrian DMD, MD at [...] will change at bedside on 08/26 - [id number] mg for 1 month - Recommend 5 [...] Note Carlito Perez 54 y.o. male CSN: [id number] Room/Bed 128/128A Nutrition evaluation type: follow-up Reason [...] air) O2 Delivery Method: Humidified trach collar [place]on Coma Scale Score: 15 Dex Scale Score: 19 Virgilio/Cubbin Pressure Risk Score: 41 Most Recent BM Date: (CAPTAIN ROOM SERVICE) Skin: wound vac, right pretibial surgical wound, [...] 4 months Estimated Needs: Kcal: 30-35 kcal/kg (0339-2632 kcal/d) Protein: 1.5-1.8 g/kg (131-157 g/d) Based [...] shellfish, penicillan CAD (coronary artery disease) Cancer ([facility] [id number] Coronary artery calcification Dental disease chipped teeth, jony block for vocal chord damage Fractures clavical surgery GERD (gastroesophageal reflux disease) 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 HLD (hyperlipidemia) HTN (hypertension) Hypothyroidism Reflux gastritis Substance abuse 1988 [2] Past Surgical History: Procedure Laterality Date APPENDECTOMY 1979 CARDIOTHORACIC PROCEDURE stents CAROTID STENT 04/26/2023 COLONOSCOPY 2023 CORONARY STENT PLACEMENT [id number] ORTHOPEDIC SURGERY repair to clavical OTHER SURGICAL [...] PM EDT Referral for enterals-TF sent to [facility] via [employer] & Technology, pending final recs from JOAN. * Care [...] will change at bedside on 08/26 - [id number] mg for 1 month - Recommend 5 [...] MD Plastic & Reconstructive Surgery PGY-4 Pager [phone] Cosigned by Marvin Santana MD at 08/24/2025 [...] Maxillofacial Surgery Progress Note 08/23/25 Carlito Perez [facility] Day: 5 Subjective HISTORY OF PRESENT ILLNESS [...] Edited by: Rusty Melendrez DDS at 08/23/2025 0598 Objective Last Recorded Vitals Temp: [36.5 ??C [...] Intake/Output Summary (Last 24 hours) at 08/23/2025 0587 Last data filed at 08/23/2025 0500 Gross [...] Units Date/Time Cecelia auris Surveillance by PCR [[id number]] (Normal) Collected: 08/19/25 2019 Order Status: Completed Specimen: Swab from Axilla and Groin Updated: 08/21/25 1033 Cecelia auris PCR Result Not Detected Narrative: This PCR assay was developed and its performance characteristics determined by [facility] as appropriate for clinical purposes. This assay has not been cleared or approved bythe FDA, but is performed in a CLIA regulated laboratory that is qualified to perform high-complexity testing. Multi Drug Resistance Test [[id number]] Collected: 08/19/25 2019 Order Status: Completed Specimen: Swab from Nares and Nini Rectal Updated: 08/21/25 0733 Culture No growth at day 1 Narrative: This test was developed and its performance characteristics determined by the [facility]. Although the media is FDA-approved, it is not FDA-approved for all specimen types submitted. The FDA has determined that such clearance or approval is not necessary. This test is used for surveillance purposes. It should not be regarded as investigational or for research. The [facility] is certified under the [...] with patient at bedside Rusty Melendrez DDS [facility], [facility]Y-1 Cosigned by Alvaro [...] Note Carlito Perez 54 y.o. male CSN: [id number] Admission: 08/19/2025 5:29 AM Primary Problem: Floor of mouth squamous cell carcinoma Anticipated Discharge Date: 08/27/25 Has Discharge Plans Changed? Medicare Second Notice: Housing Circumstances: Housing Circumstances Action Taken: Medically Ready for Discharge: Additional Comments Referral for PT/OT+SN sent to agencies via [facility]. UPDATE: [facility] [phone] has accepted pt. POC reviewed with primary team. Refer to primary team's note for details. Pt is not medically readyfor discharge. MD anticipates readiness for discharge more than 72 hrs. 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 Past Surgical History Patient has a past surgical history that includes Appendectomy (1979); Colonoscopy (2023); Coronarystent placement ([id number]); Other surgical history; Cardiothoracic procedure; orthopedic surgery; Throat surgery; and Carotid stent (04/26/2023). Precautions Right Lower Extremity Weight Bearing Status: Weight Bearing as Tolerated (with CAM boot for ambulation; on AAT - okay to remove for skin inspection, hygiene, and dressing changes per medical TEAM) Medical Precautions: Fall precautions Mobility Orders (Order ID: [id number]) Priority: Routine Interval: Until discontinued Comments: MUST [...] Care Family/Caregiver Present: Yes Family/Caregiver: (Adult Sister) Teaching Assistant: Not Applicable Presentation Oxygen Therapy: Supplemental oxygen [...] admission Level of Mobility: Ambulatory- community Mobility [place]: Independent gait without device History of Falls: [...] Mobility Bed Mobility Exam: Scooting/Bridging Level of [place]: Stand-by assist (anteriorly to EOB) Physical/Nonphysical Assist: Set-up required, Supervision, Verbal Cues, Minimal cues, 1 person + 1 person to manage equipment Bed Mobility Exam: Supine to Sit Level of [place]: Contact guard (to the left) Physical/Nonphysical Assist: Set-up required, Verbal Cues, Nonverbal cues (demo/gestures), Minimal cues, HOB elevated, 1 person + 1 person to manage equipment Assistive Device: Bed rails Transfers Transfer Exam: Sit to stand Level of [place]: Contact guard Physical/Nonphysical Assist: Set-up required, Verbal Cues, Nonverbal cues (demo/gestures), Minimal cues, 1 person + 1 person to manage equipment Assistive Device: Walker, rolling Transfer Exam: Stand to Sit Level of [place]: Contact guard Physical/Nonphysical Assist: Verbal Cues, Nonverbal [...] inpatient within personal toileting routines. 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 Past Surgical History Patient has a past surgical history that includes Appendectomy (1979); Colonoscopy (2023); Coronarystent placement ([id number]); Other surgical history; Cardiothoracic procedure; orthopedic surgery; [...] Care Family/Caregiver Present: Yes Family/Caregiver: (Adult Sister) Teaching Assistant: Not Applicable Presentation Oxygen Therapy: Supplemental oxygen [...] admission Level of Mobility: Ambulatory- community Mobility [place]: Independent gait without device History of Falls: [...] Mobility Bed Mobility Exam: Scooting/Bridging Level of [place]: Stand-by assist (anteriorly to EOB) Physical/Nonphysical Assist: Set-up required, Supervision, Verbal Cues, Minimal cues, 1 person + 1 person to manage equipment Bed Mobility Exam: Supine to Sit Level of [place]: Contact guard (to the left) Physical/Nonphysical Assist: Set-up required, Verbal Cues, Nonverbal cues (demo/gestures), Minimal cues, HOB elevated, 1 person + 1 person to manage equipment Transfers Transfer Exam: Sit to stand Level of [place]: Contact guard Physical/Nonphysical Assist: Set-up required, Verbal Cues, Nonverbal cues (demo/gestures), Minimal cues, 1 person + 1 person to manage equipment Assistive Device: Walker, rolling Transfer Exam: Stand to Sit Level of [place]: Contact guard Physical/Nonphysical Assist: Verbal Cues, Nonverbal [...] Level of Assistance: Contact guard Standardized Assessments [facility] 6-Clicks Mobility Assessment Difficulty patient has turning [...] 3-5 steps with a railing?: A little [facility] 6-Clicks Mobility Assessment Total : 21 No [...] by Juanita Vergara RN) Diversional Activities: television Aunt Kitchen Goal: Nausea and Vomiting Relief Outcome: Ongoing, [...] will change at bedside on 08/26 - [id number] mg for 1 month - Recommend 5 [...] MD Plastic & Reconstructive Surgery PGY-4 Pager [phone] Cosigned by Marvin Santana MD at 08/22/2025 [...] Maxillofacial Surgery Progress Note 08/22/25 Carlito Perez [facility] Day: 4 Subjective HISTORY OF PRESENT ILLNESS [...] Units Date/Time Cecelia auris Surveillance by PCR [[id number]] (Normal) Collected: 08/19/252018 Order Status: Completed Specimen: Swab from Axilla and Groin Updated: 08/21/25 1033 Cecelia auris PCR Result Not Detected Narrative: This PCR assay was developed and its performance characteristics determined by [facility] as appropriate for clinical purposes. This assay has not been cleared or approved bythe FDA, but is performed in a CLIA regulated laboratory that is qualified to perform high-complexity testing. Multi Drug Resistance Test [[id number]] Collected: 08/19/252018 Order Status: Completed Specimen: Swab from Nares and Nini Rectal Updated: 08/21/25 0733 Culture No growth at day 1 Narrative: This test was developed and its performance characteristics determined by the [facility]. Although the media is FDA-approved, it is not FDA-approved for all specimen types submitted. The FDA has determined that such clearance or approval is not necessary. This test is used for surveillance purposes. It should not be regarded as investigational or for research. The [facility] is certified under the [...] 54 y.o. male with PMH of CAD (, 2022), HLD, hypothyroidism, who presents with a [...] on file Utilities: Not At Risk (08/21/2025) [facility] Utilities Threatened with loss of [...] Surgery ICU Progress Note 08/21/25 Carlito Perez [facility] Day: 3 Subjective HISTORY OF PRESENT ILLNESS [...] Value Units Date/Time Multi Drug Resistance Test [[id number]] Collected: 08/19/252018 Order Status: Sent Specimen: Swab from Nares and Nini Rectal Updated: 08/19/252029 Cecelia auris Surveillance by PCR [[id number]] Collected: 08/19/252018 Order Status: Sent Specimen: Swab [...] Trach care per OMFS #Tracheostomy - Contact residential property consultant PGY-1 for acute trach concerns - [...] #Hypothyroidism - Restarted Levothyroxine Marcelino Laurent DMD [facility] automobile insurance claim examiner PGY-1 Pager #: [phone] [1] acetaminophen, 1,000 mg, Nasogastric, q6h JOVANNI [...] and Manage Urinary Retention Flowsheets (Taken 08/21/2025 8432) Urinary Elimination Promotion: bladder volume assessed by [...] from the original note were not included. REHABILITATION SERVICES COUNSELOR Flap Check 08/21/2025 PROCEDURE: Right osteocutaneous free [...] resident Galina Renteria DMD, MD Vascular Surgery Shopper Insights Manager Pager ID [phone] * Significant Event - Galina Renteria MD - 08/20/2025 8:01 PM EDT REHABILITATION SERVICES COUNSELOR Flap Check 08/20/2025 PROCEDURE: Right osteocutaneous free [...] resident Galina Renteria DMD, MD Vascular Surgery Shopper Insights Manager Pager ID [phone] * Care Plan - Lizy Amador - [...] Note Carlito Perez 54 y.o. male CSN: [id number] Admission: 08/19/2025 5:29 AM Primary Problem: Floor of mouth squamous cell carcinoma Guest Relations Associate reviewed chart and spoke with patient's spouse to complete this Initial Case Management Assessment. Patient intubated and CM unable to obtain SDOH information. PCP: Christina Arteaga APRN Emergency Contact: Extended Emergency Contact Information Primary Emergency Contact: Elicia Perez Address: [address] [place] [address] [facility] Relation: Spouse Insurance: Primary Visit Coverage Payer Plan Sponsor Code Group Number Group Name [facility] [place] [facility] Primary Visit Coverage Subscriber Subscriber ID Subscriber Name Subscriber N Subscriber Address [id number] Carlito Perez [id number] [address] [place] [address] Patient information: Primary Caregiver: Self Accompanied by/Relationship: spouse Support System: Immediate family Daily Living Activities: Functional Status: Independent Living Arrangements: Spouse/Significant other Type of Residence: Private residence, Single Level [address] [place] [address] Current DME: Equipment Currently Used at Home: none Current DME Provider: has a cane and crutches at [facility] if needed. Income Information: Income Source: Employed Income/Expense Information: Income meets expenses Current Resources Utilized: None Housing Circumstances-Z Codes: Housing Circumstances (select all that apply): None Applicable Anticipated Discharge Date: 08/26 Patient's Discharge Goal: tbd Assistance Available at Discharge: 06/06 per family. His sister is an RN, son is a globe changer and he has a cousin who is an RN. Per spouse they are all able/willing to assist patient when dc home for hospital. Spouse also able to assist however she works many hours at her job. Discharge Transport: family Follow Up Transport: family Home Health / Home Infusion / Outpatient Dialysis Services: Current DME Provider: has a cane and crutches at [facility] if needed. Living Will/Advance Directive/Power of Computer System Validation Specialist /Guardian: has copies of LW and POA . CM suggested she present these to a carry out clerk and shelf stocker who may be able to scan into his epic/my chart. Additional Comments: Guest Relations Associate provided introduction of CM and information on CM role. Confirmed demographics in [facility] are accurate. requested communication go to [email or web address] Jackeline Rodriguez RN * Progress Notes - [...] Height: O2 Delivery Method: Humidified trach collar KS SUP: 10 cm H20 Insp Time (sec): 1.4 sec FiO2 (%): 28 % S RR: 14 KS SUP: 10 cm H20 I O Shift [...] Maxillofacial Surgery ICU Progress Note 08/20/25 Carl[facility] Day: 2 Subjective HISTORY OF PRESENT [...] day 1. Trach remains in place with HTC . NAEO. Pt seen and evaluated at bedside by [facility] surgery residents. NPO.Tolerating pain on PO meds [...] well perfused Pulm: Non-labored breathing on HCT /. 6-0 cuffed shiley trach secured in place [...] Value Units Date/Time Multi Drug Resistance Test [[id number]] Collected: 08/19/252018 Order Status: Sent Specimen: Swab from Nares and Nini Rectal Updated: 08/19/252029 Cecelia auris Surveillance by PCR [[id number]] Collected: 08/19/252018 Order Status: Sent Specimen: Swab [...] #Hypothyroidism - Restarted Levothyroxine Rusty Melendrez DDS [facility], PGY-1 [1] acetaminophen, 650 mg, Nasogastric, q6h [...] to baseline level. * Care Plan - Nely Cardoza RN - 08/19/2025 10:48 PM EDT Problem: [...] suction drain DHT, gastric Gr A/P: Carlito Lepe Perez is a 54 y.o. male POD#0 [...] from the original note were not included. [facility] Department of Surgery Division of Plastic and Reconstructive Surgery Post-Operative Check Name: Carlito Roberth Perez Attending Provider: Marvin Santana MD Age/Sex: 54 y.o. male Unit: [facility] 5 T2 ICU Date & Time [...] Note Carlito Perez 54 y.o. male CSN: [id number] Room/Bed OR/- Nutrition evaluation type: assessment Reason [...] (98.2 ??F) Oxygen Therapy: None (Room air) Monon Coma Scale Score: 15 Dex Scale Score: [...] 4 months Estimated Needs: Kcal: 30-35 kcal/kg (2153-6981 kcal/d) Protein: 1.5-1.8 g/kg (131-157 g/d) Based [...] shellfish, penicillan CAD (coronary artery disease) Cancer ([facility] [id number] Coronary artery calcification Dental disease chipped teeth, jony block for vocal chord damage Fractures clavical surgery GERD (gastroesophageal reflux disease) 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 HLD (hyperlipidemia) HTN (hypertension) Hypothyroidism Reflux gastritis Substance abuse 1988 [2] Past Surgical History: Procedure Laterality Date APPENDECTOMY 1979 CARDIOTHORACIC PROCEDURE stents CAROTID STENT 04/26/2023 COLONOSCOPY 2023 CORONARY STENT PLACEMENT [id number] ORTHOPEDIC SURGERY repair to clavical OTHER SURGICAL [...] AM EDT Operative Note Date: 08/19/25 Location: [place] [facility] Name: Saravanan Perez, : 1970, Diagnoses: Pre-op Diagnosis Floor of mouth squamous cell carcinoma Post-op Diagnosis Floor of mouth squamous cell carcinoma Procedure(s): Tracheotomy, partial glossectomy left anterior tongue, left segmental mandibulectomy, left selective neck dissection, extraction of #2,3,5,6,7,8,9,10,11,12,13,15,28,29,31, Direct Laryngoscopy with Biopsy Attending Surgeon(s): Panel 1: * Marvin Santana R - Primary Panel 2: * Alvaro Adrian B - Primary Substation Operator Automatic(s): Panel 1: * Roma Rolon MD - [...] W/O ANGLE 2MM THCK - SNA - [id number] Used, Not Implanted NA Plate PLATE TI PSPC MATRIXMAND ANG RECON 7X23H/2MM LT - SNA - [id number] Implanted NA Screw SCREW 2.0MM MATRIXMANDIBLE ST 8MM - SNA - [id number] Used, Not Implanted NA Screw SCREW 2.0MM MATRIXMANDIBLE LOCK ST 8MM - SN/A - [id number] Implanted N/A SCREW 2.0MM [address]RI[address]ANDIBLE LOCK ST 10MM - SN/A - [id number] Implanted N/A SCREW 2.0MM [address] LOCK [address] 10MM - SN/A - [id number] Implanted N/A SCREW 2.0MM [address] LOCK [address] 14MM - SN/A - [id number] Implanted N/A Specimen: Specimens ID Source Frozen? [...] AM EDT Operative Note Date: 08/19/25 Location: [place] [facility] Name: Saravanan Perez, : 1970, Diagnoses: [...] Panel 1: * Marvin Santana - Primary Substation Operator Automatic(s): Panel 1: * Roma Rolon MD - Resident - Assisting Panel 2: Anesthesia: General ASA: III Blood Administration: Blood Product Administration History None Estimated Blood Loss: 400 mL Drains: Closed/Suction Drain Anterior;Right Neck Bulb 15 Fr. (Active) Site Description Clean;Dry 08/19/251814 Dressing Status Clean;Dry;Intact 08/19/251814 Drainage Appearance Serosanguineous 08/19/251814 Status To bulb suction 08/19/251814 Output (mL) 30 mL 08/19/25 185 Urethral Catheter Temperature probe;Non-latex 16 Fr. (Active) Site Assessment Skin intact;Clean 08/19/251814 CAUTI: Collection Container Standard drainage bag 08/19/251814 CAUTI: Securement Method Securing device (Describe) 08/19/251814 CAUTI: Specimen Collection Port Covered with Alcohol Cap Yes 08/19/251814 CAUTI: Urinary Catheter Indication Yes, meets indication reason 08/19/251814 Implants Type Name Action Serial No. Plate PLATE MANDIBLE CUSTOM W/O ANGLE 2MM THCK - SNA - [id number] Used, Not Implanted NA Plate PLATE TI PSPC MATRIXMAND ANG RECON 7X23H/2MM LT - SNA - [id number] Implanted NA Screw SCREW 2.0MM MATRIXM[address]IBLE ST 8MM - SNA - [id number] Used, Not Implanted NA Screw SCREW 2.0MM MATRI[address] LOCK ST 8MM - SN/A - [id number] Implanted N/A SCREW 2.0MM MATRI[address]IBLE LOCK ST 10MM - SN/A - [id number] Implanted N/A SCREW 2.0MM [address]RI[address]IBLE LOCK ST 10MM - SN/A - [id number] Implanted N/A SCREW 2.0MM MATRIXMANDIBLE LOCK ST 14MM - SN/A - [id number] Implanted N/A Specimen: Specimens ID Source Frozen? [...] for reconstruction Free fibula flap secured to [place] mandible with a reconstruction plate Complex intraoral [...] we had good bony approximation to the [place] mandible. Under direct visualization we are able to secure 4 holes across the osteotomy sites to the [place] mandible with bicortical screws. In this fashion were able to reconstruct the right brandyn mandible with a reconstruction plate/implant. We also then were able to drape the pedicle appropriately down into the anastomosis site. Under loupe magnification, we then proceeded to reapproximate the artery end-to-end using 8-0 nylonwithout any issues. The veins were then coupled using a 3.5 mm stump blower x2. The clamps were carefully removed demonstrating [...] 08/19/2025 8:53 AM EDT Date: 08/19/25 Location: [place] [facility] Name: Saravanan Perez, : 1970, Diagnoses: Pre-op Diagnosis Floor of mouth squamous cell carcinoma Post-op Diagnosis Floor of mouth squamous cell carcinoma Procedure(s): Segmental mandibulectomy, left selective neck dissection, extraction of all remaining teeth, partial left glossectomy, tracheostomy, Direct Laryngoscopy with biopsy Attending Surgeon(s): Panel 1: * Marvin Santana - Primary Panel 2: * Alvaro Adrian - Primary Substation Operator Automatic(s): Panel 1: * Roma Rolon MD - [...] Plate PLATE MANDIBLE CUSTOM W/O ANGLE 2MM [facility] - SNA - [id number] Used, Not Implanted NA Plate PLATE TI PSPC MATRIXMAND ANG RECON 7X23H/2MM LT - SNA - [id number] Implanted NA Specimen: Specimens ID Source Frozen? [...] from the original note were not included. [facility] Department of Surgery Division of [...] shellfish, penicillan CAD (coronary artery disease) Cancer ([facility]) [id number] Coronary artery calcification Dental disease chipped teeth, [...] STENT 04/26/2023 COLONOSCOPY 2023 CORONARY STENT PLACEMENT [id number] ORTHOPEDIC SURGERY repair to clavical OTHER SURGICAL [...] with an associated skin paddle in his [place] blood supply. This will then be harvested [...] - Encouraged nicotine minimization - To see steward/stewardess chief cargo vessel today. - All questions regarding pre-op, intra-op, [...] shellfish, penicillan CAD (coronary artery disease) Cancer ([facility]) [id number] Coronary artery calcification Dental disease chipped teeth, [...] STENT 04/26/2023 COLONOSCOPY 2023 CORONARY STENT PLACEMENT [id number] ORTHOPEDIC SURGERY repair to clavical OTHER SURGICAL [...] uploaded in the chart Cosigned by Alvaro Adiran DMD, MD at 08/21/2025 8:47 AM EDT [...] Description 10/08/2025 9:15 AM EST Office Visit [facility] Plastic & Reconstructive Surgery [address] [place] [address] Marvin Santana MD [address] [phone] 10/08/2025 10:30 AM EST Office Visit [facility] automobile insurance claim examiner [facility] [address] [address] [place] [phone] [place] [address] [place] [phone] Scheduled Referrals Name Type Priority Associated Diagnoses Order Schedule Discharge Ambulatory referral to NON [facility] Outpatient Referral Routine Floor of mouth squamous cell carcinoma 1 Occurrences starting 08/22/2025 until 02/23/2027 Discharge Ambulatory referral to NON [facility] Referral Routine Floor of mouth [...] bovie, bipolar, tournique, tps drill and sawt KS PART REMOVAL TONGUE,<1/2 08/19/2025 8:05 AM EDT 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 Needs Microinstruments, micrscope available, doppler, handheld ligasure, bovie, bipolar, tournique, tps drill and sawt KS REMOVAL NODES, NECK,CERV CMPLT 08/19/2025 8:05 AM EDT 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 Needs Microinstruments, micrscope available, doppler, handheld ligasure, bovie, bipolar, tournique, tps drill and sawt KS REMV MALIG JAW BONE RADICAL 08/19/2025 8:05 AM EDT 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 Needs Microinstruments, micrscope available, doppler, handheld ligasure, bovie, bipolar, tournique, tps drill and sawt KS RECONSTR MANDIBLE,BONE PLATE 08/19/2025 8:05 AM EDT 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 Needs Microinstruments, micrscope available, doppler, handheld ligasure, bovie, bipolar, tournique, tps drill and sawt KS LAYR CLOS WND REST BODY 12.6-20 CM 08/19/2025 8:05 AM EDT 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 Needs Microinstruments, micrscope available, doppler, handheld ligasure, bovie, bipolar, tournique, tps drill and sawt KS REPR,FACE,GENITAL,ARGUETA ND,FT+5 CMCM/< 08/19/2025 8:05 AM EDT 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 Needs Microinstruments, micrscope available, doppler, handheld ligasure, bovie, bipolar, tournique, tps drill and sawt KS RECMPL WND HEAD,FAC,HAND 2.6-7.5 CM 08/19/2025 8:05 AM EDT 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 Needs Microinstruments, micrscope available, doppler, handheld ligasure, bovie, bipolar, tournique, tps drill and sawt KS BONE-SKIN GRAFT, MICROVASCULAR 08/19/2025 8:05 AM EDT 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 Needs Microinstruments, micrscope available, doppler, handheld ligasure, bovie, bipolar, tournique, tps drill and sawt TYPE AND SCREEN Routine 08/19/2025 7:05 AM EDT documented in this encounter Results * Phosphorus, Plasma (08/30/2025 3:00 AM EDT) Phosphorus, Plasma 4.2 2.5 - 4.5 mg/dL 08/30/2025 3:39 AM EDT [facility] Blood Venous blood specimen / Unknown Venipuncture / Unknown 08/30/2025 3:00 AM EDT 08/30/2025 3:11 AM EDT us Sin Min Nancy Singletary DMD, MD LAB BLOOD ORDERABLES Melida l Result Performing Organization Address [facility]/ZIP Co de Phone Number [facility] [address] [place] [address] * Magnesium, Plasma (08/30/2025 3:00 AM EDT) Magnesium, Plasma 2.4 1.9 - 2.4 mg/dL 08/30/2025 3:39 AM EDT [facility] Blood Venous blood specimen / Unknown Venipuncture / Unknown 08/30/2025 3:00 AM EDT 08/30/2025 3:11 AM EDT us Sin Min Nancy Singletary DMD, MD LAB BLOOD ORDERABLES Melida l Result Performing Organization Address City/[facility]/ZIP Co de Phone Number [facility] [address] [place] [address] * (ABNORMAL) CBC W/O Differential (08/30/2025 3:00 AM EDT) WBC Count 10.23 3.70 - 10.30 10*3/uL LAB HEMATOLOGY METHOD 08/30/2025 3:18 AM EDT [facility] RBC Count 3.18(L) 4.60 - 6.10 10*6/uL LAB HEMATOLOGY METHOD 08/30/2025 3:18 AM EDT [facility] HGB 9.9(L) 13.7 - 17.5 g/dL LAB HEMATOLOGY METHOD 08/30/2025 3:18 AM EDT [facility] HCT 30.3(L) 40.0 - 51.0 % LAB HEMATOLOGY METHOD 08/30/2025 3:18 AM EDT [facility] Platelet Count 550(H) 155 - 369 10*3/uL LAB HEMATOLOGY METHOD 08/30/2025 3:18 AM EDT [facility] MCV 95 79 - 98 fL LAB HEMATOLOGY METHOD 08/30/2025 3:18 AM EDT [facility] MCH 31.1 26.0 - 32.0 pg LAB HEMATOLOGY METHOD 08/30/2025 3:18 AM EDT [facility] MCHC 32.7 30.7 - 35.5 g/dL LAB HEMATOLOGY METHOD 08/30/2025 3:18 AM EDT [facility] RDW 13.2 11.5 - 14.5 % LAB HEMATOLOGY METHOD 08/30/2025 3:18 AM EDT [facility] MPV 8.7(L) 8.8 - 12.5 fL LAB HEMATOLOGY METHOD 08/30/2025 3:18 AM EDT [facility] nRBC 0.0 <=0.0 per 100 WBCs LAB HEMATOLOGY METHOD 08/30/2025 3:18 AM EDT [facility] Blood Venous blood specimen / Unknown Venipuncture / Unknown 08/30/2025 3:00 AM EDT 08/30/2025 3:11 AM EDT us Sin Dilan Singletary DMD, MD LAB BLOOD ORDERABLES Melida l Result [facility] [address] [place] [address] * (ABNORMAL) Basic Metabolic Panel, Plasma (08/30/2025 3:00 AM EDT) Glucose, Plasma 113(H) 74 - 99 mg/dL 08/30/2025 3:39 AM EDT [facility] BUN, Plasma 20 7 - 21 mg/dL 08/30/2025 3:39 AM EDT [facility] Creatinine, Plasma 0.68(L) 0.70 - 1.20 mg/dL 08/30/2025 3:39 AM EDT [facility] BUN/Creatinine Ratio 29 08/30/2025 3:39 AM EDT [facility] Sodium, Plasma 137 136 - 145 mmol/L 08/30/2025 3:39 AM EDT [facility] Potassium, Plasma 4.4 3.6 - 4.9 mmol/L 08/30/2025 3:39 AM EDT [facility] Chloride, Plasma 100 97 - 107 mmol/L 08/30/2025 3:39 AM EDT [facility] CO2, Plasma 28 22 - 29 mmol/L 08/30/2025 3:39 AM EDT [facility] Anion Gap 9 6 - 16 mmol/L 08/30/2025 3:39 AM EDT [facility] Total Calcium, Plasma 9.2 8.9 - 10.2 mg/dL 08/30/2025 3:39 AM EDT [facility] eGFRcr 111.8 mL/min/1.7 3m*2 08/30/2025 3:39 AM EDT [facility] Comment:Reported eGFRcr in m L/min/1.73m2 is based the CKD-EPI 2020 equation that does not use a race coefficient. Blood Venous blood specimen / Unknown Venipuncture / Unknown 08/30/2025 3:00 AM EDT 08/30/2025 3:11 AM EDT us Sin Min M Hayder [place] MD LAB BLOOD ORDERABLES Melida l Result [facility] [address] [place] [address] * Phosphorus, Plasma (08/29/2025 2:37 AM EDT) Phosphorus, Plasma 4.1 2.5 - 4.5 mg/dL 08/29/2025 3:13 AM EDT [facility] Blood Venous blood specimen / Unknown Venipuncture / Unknown 08/29/2025 2:37 AM EDT 08/29/2025 2:44 AM EDT us Sin Min Nancy Singletary DMD, MD LAB BLOOD ORDERABLES Melida l Result [facility] [address] [place] [address] * Magnesium, Plasma (08/29/2025 2:37 AM EDT) Magnesium, Plasma 2.2 1.9 - 2.4 mg/dL 08/29/2025 3:13 AM EDT [facility] Blood Venous blood specimen / Unknown Venipuncture / Unknown 08/29/2025 2:37 AM EDT 08/29/2025 2:44 AM EDT us Sin Min Nancy Singletary DMD, MD LAB BLOOD ORDERABLES Melida l Result Performing Organization Address [facility] Co de Phone Number [facility] [address] [place] [address] * (ABNORMAL) CBC W/O Differential (08/29/2025 2:37 AM EDT) WBC Count 11.08(H) 3.70 - 10.30 10*3/uL LAB HEMATOLOGY METHOD 08/29/2025 2:57 AM EDT [facility] RBC Count 3.09(L) 4.60 - 6.10 10*6/uL LAB HEMATOLOGY METHOD 08/29/2025 2:57 AM EDT [facility] HGB 9.6(L) 13.7 - 17.5 g/dL LAB HEMATOLOGY METHOD 08/29/2025 2:57 AM EDT [facility] HCT 29.0(L) 40.0 - 51.0 % LAB HEMATOLOGY METHOD 08/29/2025 2:57 AM EDT [facility] Platelet Count 547(H) 155 - 369 10*3/uL LAB HEMATOLOGY METHOD 08/29/2025 2:57 AM EDT [facility] MCV 94 79 - 98 fL LAB HEMATOLOGY METHOD 08/29/2025 2:57 AM EDT [facility] MCH 31.1 26.0 - 32.0 pg LAB HEMATOLOGY METHOD 08/29/2025 2:57 AM EDT [facility] MCHC 33.1 30.7 - 35.5 g/dL LAB HEMATOLOGY METHOD 08/29/2025 2:57 AM EDT [facility] RDW 13.1 11.5 - 14.5 % LAB HEMATOLOGY METHOD 08/29/2025 2:57 AM EDT [facility] MPV 8.6(L) 8.8 - 12.5 fL LAB HEMATOLOGY METHOD 08/29/2025 2:57 AM EDT [facility] nRBC 0.0 <=0.0 per 100 WBCs LAB HEMATOLOGY METHOD 08/29/2025 2:57 AM EDT [facility] Blood Venous blood specimen / Unknown Venipuncture / Unknown 08/29/2025 2:37 AM EDT 08/29/2025 2:44 AM EDT us Sin Min M Hayder [place] MD LAB BLOOD ORDERABLES Melida l Result [facility] [address] [place] [address] * (ABNORMAL) Basic Metabolic Panel, Plasma (08/29/2025 2:37 AM EDT) Glucose, Plasma 110(H) 74 - 99 mg/dL 08/29/2025 3:13 AM EDT [facility] BUN, Plasma 19 7 - 21 mg/dL 08/29/2025 3:13 AM EDT [facility] Creatinine, Plasma 0.72 0.70 - 1.20 mg/dL 08/29/2025 3:13 AM EDT [facility] BUN/Creatinine Ratio 26 08/29/2025 3:13 AM EDT [facility] Sodium, Plasma 138 136 - 145 mmol/L 08/29/2025 3:13 AM EDT [facility] Potassium, Plasma 3.8 3.6 - 4.9 mmol/L 08/29/2025 3:13 AM EDT [facility] Chloride, Plasma 100 97 - 107 mmol/L 08/29/2025 3:13 AM EDT [facility] CO2, Plasma 25 22 - 29 mmol/L 08/29/2025 3:13 AM EDT [facility] Anion Gap 13 6 - 16 mmol/L 08/29/2025 3:13 AM EDT [facility] Total Calcium, Plasma 9.0 8.9 - 10.2 mg/dL 08/29/2025 3:13 AM EDT [facility] eGFRcr 109.9 mL/min/1.7 3m*2 08/29/2025 3:13 AM EDT [facility] Comment:Reported eGFRcr in m L/min/1.73m2 is based the CKD-EPI 2020 equation that does not use a race coefficient. Blood Venous blood specimen / Unknown Venipuncture / Unknown 08/29/2025 2:37 AM EDT 08/29/2025 2:44 AM EDT us Sin Min M Hayder [place] MD LAB BLOOD ORDERABLES Melida l Result [facility] [address] [place] [address] * (ABNORMAL) POCT glucose meter (08/28/2025 5:41 [...] Comment 08/28/2025 5:42 AM EDT [facility] Public Weigher ID Ralph Lavonne Russell 08/28/2025 5:42 AM EDT [facility] Device ID [id number] 08/28/2025 5:42 AM EDT [facility] Specimen Type POC Capillary 08/28/2025 5:42 AM EDT [facility] Blood Capillary blood specimen / Unknown 08/28/2025 5:41 AM EDT 08/28/2025 5:42 AM EDT us Alvaro Adrian DMD, MD LAB POINT OF CA RE TEST DOCKED DEVICE UNSOLICITED RESULTS Final Result Performing Organization Address City/[facility] Co de Phone Number [facility] [address] [place] [address] * Phosphorus, Plasma (08/28/2025 3:54 AM EDT) Phosphorus, Plasma 4.3 2.5 - 4.5 mg/dL 08/28/2025 4:29 AM EDT [facility] Blood Venous blood specimen / Unknown Venipuncture / Unknown 08/28/2025 3:54 AM EDT 08/28/2025 3:59 AM EDT us Sin Min Nancy Singletary DMD, MD LAB BLOOD ORDERABLES Melida l Result Performing Organization Address [facility] Co de Phone Number [facility] [address] [place] [address] * Magnesium, Plasma (08/28/2025 3:54 AM EDT) Magnesium, Plasma 2.2 1.9 - 2.4 mg/dL 08/28/2025 4:29 AM EDT [facility] Blood Venous blood specimen / Unknown Venipuncture / Unknown 08/28/2025 3:54 AM EDT 08/28/2025 3:59 AM EDT us Sin Min Nancy Singletary DMD, MD LAB BLOOD ORDERABLES Melida l Result Performing Organization Address City/[facility] Co de Phone Number [facility] [address] [place] [address] * (ABNORMAL) CBC W/O Differential (08/28/2025 3:54 AM EDT) WBC Count 10.56(H) 3.70 - 10.30 10*3/uL LAB HEMATOLOGY METHOD 08/28/2025 4:07 AM EDT [facility] RBC Count 3.08(L) 4.60 - 6.10 10*6/uL LAB HEMATOLOGY METHOD 08/28/2025 4:07 AM EDT [facility] HGB 9.5(L) 13.7 - 17.5 g/dL LAB HEMATOLOGY METHOD 08/28/2025 4:07 AM EDT [facility] HCT 28.8(L) 40.0 - 51.0 % LAB HEMATOLOGY METHOD 08/28/2025 4:07 AM EDT [facility] Platelet Count 552(H) 155 - 369 10*3/uL LAB HEMATOLOGY METHOD 08/28/2025 4:07 AM EDT [facility] MCV 94 79 - 98 fL LAB HEMATOLOGY METHOD 08/28/2025 4:07 AM EDT [facility] MCH 30.8 26.0 - 32.0 pg LAB HEMATOLOGY METHOD 08/28/2025 4:07 AM EDT [facility] MCHC 33.0 30.7 - 35.5 g/dL LAB HEMATOLOGY METHOD 08/28/2025 4:07 AM EDT [facility] RDW 13.1 11.5 - 14.5 % LAB HEMATOLOGY METHOD 08/28/2025 4:07 AM EDT [facility] MPV 8.7(L) 8.8 - 12.5 fL LAB HEMATOLOGY METHOD 08/28/2025 4:07 AM EDT [facility] nRBC 0.0 <=0.0 per 100 WBCs LAB HEMATOLOGY METHOD 08/28/2025 4:07 AM EDT [facility] Blood Venous blood specimen / Unknown Venipuncture / Unknown 08/28/2025 3:54 AM EDT 08/28/2025 3:59 AM EDT us Sin Min M Hayder [place] MD LAB BLOOD ORDERABLES Melida l Result [facility] [address] [place] [address] * (ABNORMAL) Basic Metabolic Panel, Plasma (08/28/2025 3:54 AM EDT) Glucose, Plasma 101(H) 74 - 99 mg/dL 08/28/2025 4:29 AM EDT [facility] BUN, Plasma 18 7 - 21 mg/dL 08/28/2025 4:29 AM EDT [facility] Creatinine, Plasma 0.62(L) 0.70 - 1.20 mg/dL 08/28/2025 4:29 AM EDT [facility] BUN/Creatinine Ratio 29 08/28/2025 4:29 AM EDT [facility] Sodium, Plasma 136 136 - 145 mmol/L 08/28/2025 4:29 AM EDT [facility] Potassium, Plasma 4.2 3.6 - 4.9 mmol/L 08/28/2025 4:29 AM EDT [facility] Chloride, Plasma 99 97 - 107 mmol/L 08/28/2025 4:29 AM EDT [facility] CO2, Plasma 28 22 - 29 mmol/L 08/28/2025 4:29 AM EDT [facility] Anion Gap 9 6 - 16 mmol/L 08/28/2025 4:29 AM EDT [facility] Total Calcium, Plasma 9.3 8.9 - 10.2 mg/dL 08/28/2025 4:29 AM EDT [facility] eGFRcr 115.0 mL/min/1.7 3m*2 08/28/2025 4:29 AM EDT [facility] Comment:Reported eGFRcr in m L/min/1.73m2 is based the CKD-EPI 2020 equation that does not use a race coefficient. Blood Venous blood specimen / Unknown Venipuncture / Unknown 08/28/2025 3:54 AM EDT 08/28/2025 3:59 AM EDT us Sin Min M Hayder [place] MD LAB BLOOD ORDERABLES Melida l Result [facility] [address] [place] [address] * Type and Screen (08/28/2025 3:54 AM [...] ORD ERABLES Final Result Performing Organization Address City/[facility]/ZIP Co de Phone Number BLOOD BANK [address] [place] [address], * POCT glucose meter (08/27/2025 11:01 PM EDT) [facility] POCT Glucose 97 74 - 99 mg/dL [...] Comment 08/27/2025 11:03 PM EDT [facility] Public Weigher ID Ralph BarajasDrewLavonne 08/27/2025 11:03 PM EDT [facility]ARE LAB Device ID [id number] 08/27/2025 11:[address] [facility] Specimen Type POC Capillary 08/27/2025 11:[address] [facility] Blood Capillary blood specimen / Unknown 08/27/2025 11:01 PM EDT 08/27/2025 11:03 PM EDT Alvaro Adrian DMD, MD LAB POINT OF CA RE TEST DOCKED DEVICE UNSOLICITED RESULTS Final Result Performing Organization Address City/[facility]/ZIP Co de Phone Number [facility] [address] [place] [address] * (ABNORMAL) POCT glucose meter (08/27/2025 5:49 PM EDT) [facility] POCT Glucose 119(H) 74 - 99 mg/dL [...] 08/27/2025 5:54 PM EDT [facility] Public Weigher ID Kanika Garay 08/27/2025 5:54 PM EDT [facility] Device ID [id number] 08/27/2025 5:54 PM EDT [facility] Specimen Type POC Capillary 08/27/2025 5:54 PM EDT [facility] Blood Capillary blood specimen / Unknown 08/27/2025 5:49 PM EDT 08/27/2025 5:54 PM EDT us Alvaro Adrian DMD, MD LAB POINT OF CA RE TEST DOCKED DEVICE UNSOLICITED RESULTS Final Result Performing Organization Address City/State/[facility] Co de Phone Number [facility] [address] [place] [address] * (ABNORMAL) POCT glucose meter (08/27/2025 11:38 AM EDT) [facility] POCT Glucose 102(H) 74 - 99 mg/dL [...] Comment 08/27/2025 11:40 AM EDT HEALTH[facility]ARE [facility] Public Weigher ID Kanika Garay 08/27/2025 11:40 AM EDT [facility] LAB Device ID [id number] 08/27/2025 11:40 AM EDT [facility] Specimen Type POC Capillary 08/27/2025 11:40 AM EDT [facility] Blood Capillary blood specimen / Unknown 08/27/2025 11:38 AM EDT 08/27/2025 11:40 AM EDT us Alvaro Adrian DMD, MD LAB POINT OF CA RE TEST DOCKED DEVICE UNSOLICITED RESULTS Final Result Performing Organization Address [facility] de Phone Number [facility]ARE [facility] [address] [place] [address] * (ABNORMAL) POCT glucose meter (08/27/2025 5:42 AM EDT) [facility] POCT Glucose 144(H) 74 - 99 mg/dL [...] Comment 08/27/2025 5:43 AM EDT [facility] Public Weigher ID Kirsty Garcia 08/27/2025 5:43 AM EDT HEALTH[facility]ARE LAB Device ID [id number] 08/27/2025 5:[address] [facility] Specimen Type POC Capillary 08/27/2025 5:[address] [facility] Blood Capillary blood specimen / Unknown 08/27/2025 5:42 AM EDT 08/27/2025 5:43 AM EDT us Alvaro Adrian DMD, MD LAB POINT OF CA RE TEST DOCKED DEVICE UNSOLICITED RESULTS Final Result Performing Organization Address [facility] Phone Number [facility] [address] [place] [address] * Phosphorus, Plasma (08/27/2025 3:44 AM EDT) [facility] Phosphorus, Plasma 3.5 2.5 - 4.5 mg/dL 08/27/2025 4:29 AM EDT [facility] Blood Venous blood specimen / Unknown Venipuncture / Unknown 08/27/2025 3:44 AM EDT 08/27/2025 3:59 AM EDT us Khadar Singletary DMD, MD LAB BLOOD ORDERABLES Melida l Result Performing Organization Address [facility] Co de Phone Number [facility] [address] [place] [address] * Magnesium, Plasma (08/27/2025 3:44 AM EDT) Magnesium, Plasma 2.1 1.9 - 2.4 mg/dL 08/27/2025 4:29 AM EDT [facility] Blood Venous blood specimen / Unknown Venipuncture / Unknown 08/27/2025 3:44 AM EDT 08/27/2025 3:59 AM EDT us Sin Min M Hayder [place] MD LAB BLOOD ORDERABLES Melida l Result [facility] [address] [place] [address] * (ABNORMAL) CBC W/O Differential (08/27/2025 3:44 AM EDT) WBC Count 10.56(H) 3.70 - 10.30 10*3/uL LAB HEMATOLOGY METHOD 08/27/2025 4:13 AM EDT [facility] RBC Count 2.99(L) 4.60 - 6.10 10*6/uL LAB HEMATOLOGY METHOD 08/27/2025 4:13 AM EDT [facility] HGB 9.3(L) 13.7 - 17.5 g/dL LAB HEMATOLOGY METHOD 08/27/2025 4:13 AM EDT [facility] HCT 28.1(L) 40.0 - 51.0 % LAB HEMATOLOGY METHOD 08/27/2025 4:13 AM EDT [facility] Platelet Count 483(H) 155 - 369 10*3/uL LAB HEMATOLOGY METHOD 08/27/2025 4:13 AM EDT [facility] MCV 94 79 - 98 fL LAB HEMATOLOGY METHOD 08/27/2025 4:13 AM EDT [facility] MCH 31.1 26.0 - 32.0 pg LAB HEMATOLOGY METHOD 08/27/2025 4:13 AM EDT [facility] MCHC 33.1 30.7 - 35.5 g/dL LAB HEMATOLOGY METHOD 08/27/2025 4:13 AM EDT [facility] RDW 12.9 11.5 - 14.5 % LAB HEMATOLOGY METHOD 08/27/2025 4:13 AM EDT [facility] MPV 8.9 8.8 - 12.5 fL LAB HEMATOLOGY METHOD 08/27/2025 4:13 AM EDT [facility] nRBC 0.0 <=0.0 per 100 WBCs LAB HEMATOLOGY METHOD 08/27/2025 4:13 AM EDT [facility] Blood Venous blood specimen / Unknown Venipuncture / Unknown 08/27/2025 3:44 AM EDT 08/27/2025 4:00 AM EDT us Sin Min M Hayder [place] MD LAB BLOOD ORDERABLES Melida mae Result [facility] [address] [place] [address] * (ABNORMAL) Basic Metabolic Panel, Plasma (08/27/2025 3:44 AM EDT) Glucose, Plasma 99 74 - 99 mg/dL 08/27/2025 4:29 AM EDT [facility] BUN, Plasma 17 7 - 21 mg/dL 08/27/2025 4:29 AM EDT [facility] Creatinine, Plasma 0.60(L) 0.70 - 1.20 mg/dL 08/27/2025 4:29 AM EDT [facility] BUN/Creatinine Ratio 28 08/27/2025 4:29 AM EDT [facility] Sodium, Plasma 135(L) 136 - 145 mmol/L 08/27/2025 4:29 AM EDT [facility] Potassium, Plasma 4.2 3.6 - 4.9 mmol/L 08/27/2025 4:29 AM EDT [facility] Chloride, Plasma 99 97 - 107 mmol/L 08/27/2025 4:29 AM EDT [facility] CO2, Plasma 28 22 - 29 mmol/L 08/27/2025 4:29 AM EDT [facility] Anion Gap 8 6 - 16 mmol/L 08/27/2025 4:29 AM EDT [facility] Total Calcium, Plasma 9.2 8.9 - 10.2 mg/dL 08/27/2025 4:29 AM EDT [facility] eGFRcr 116.1 mL/min/1.7 3m*2 08/27/2025 4:29 AM EDT [facility] Comment:Reported eGFRcr in m L/min/1.73m2 is based the CKD-EPI 2020 equation that does not use a race coefficient. Blood Venous blood specimen / Unknown Venipuncture / Unknown 08/27/2025 3:44 AM EDT 08/27/2025 3:59 AM EDT us Sin Min M Hayder [place] MD LAB BLOOD ORDERABLES Melida l Result Performing Organization Address City/[facility]/ZIP Co de Phone Number [facility] [address] [place] [address] * (ABNORMAL) POCT glucose meter (08/26/2025 11:56 PM EDT) POCT Glucose 103(H) 74 - 99 mg/dL [...] Comment 08/26/2025 11:57 PM EDT HEALTHCARE LAB Public Weigher ID Kirsty Garcia 08/26/2025 11:57 PM EDT HEALTHCARE LAB Device ID [id number] 08/26/2025 11:57 PM EDT [facility] Specimen Type POC Capillary 08/26/2025 11:[address] [facility] Blood Capillary blood specimen / Unknown 08/26/2025 11:56 PM EDT 08/26/2025 11:57 PM EDT us Alvaro Adrian DMD, MD LAB POINT OF CA RE TEST DOCKED DEVICE UNSOLICITED RESULTS Final Result Performing Organization Address City/[facility]/ZIP Co de Phone Number [facility]ALTHCARE [facility] [address] [place] [address] * (ABNORMAL) POCT glucose meter (08/26/2025 6:27 PM EDT) POCT Glucose 106(H) 74 - 99 mg/dL [...] Comment 08/26/2025 6:28 PM EDT [facility]ALTH[facility]ARE [facility] Public Weigher ID Isha Lemos 08/26/2025 6:28 PM EDT HEALTH[facility]ARE LAB Device ID [id number] 08/26/2025 6:28 PM EDT [facility] LAB Specimen Type POC Capillary 08/26/2025 6:28 PM EDT [facility] Blood Capillary blood specimen / Unknown 08/26/2025 6:27 PM EDT 08/26/2025 6:28 PM EDT us Alvaro Adrian DMD, MD LAB POINT OF CA RE TEST DOCKED DEVICE UNSOLICITED RESULTS Final Result Performing Organization Address City/State/[facility] Co de Phone Number [facility]ARE LAB [address] [place] [address] * Wound VAC Dressing Changes (Non-Instillation) (08/26/2025 [...] POCT glucose meter (08/26/2025 12:48 PM EDT) [facility] POCT Glucose 84 74 - 99 mg/dL [...] 08/26/2025 12:50 PM EDT [facility] Public Weigher ID Isha Lemos 08/26/2025 12:50 PM EDT [facility] Device ID [id number] 08/26/2025 12:50 PM EDT [facility] Specimen Type POC Capillary 08/26/2025 12:50 PM EDT [facility] Blood Capillary blood specimen / Unknown 08/26/2025 12:48 PM EDT 08/26/2025 12:50 PM EDT Alvaro Adrian DMD, MD LAB POINT OF CA RE TEST DOCKED DEVICE UNSOLICITED RESULTS Final Result [facility] [address] [place] [address] * POCT glucose meter (08/26/2025 5:44 AM EDT) [facility] POCT Glucose 95 74 - 99 mg/dL [...] 08/26/2025 5:46 AM EDT [facility] Public Weigher ID Latisha Winter 08/26/2025 5:46 AM EDT [facility] Device ID [id number] 08/26/2025 5:46 AM EDT [facility] Specimen Type POC Capillary 08/26/2025 5:46 AM EDT [facility] Blood Capillary blood specimen / Unknown 08/26/2025 5:44 AM EDT 08/26/2025 5:46 AM EDT us Alvaro Adrian DMD, MD LAB POINT OF CA RE TEST DOCKED DEVICE UNSOLICITED RESULTS Final Result Performing Organization Address City/[facility]/ZIP Co de Phone Number [facility] [address] [place] [address] * Phosphorus, Plasma (08/26/2025 3:27 AM EDT) Phosphorus, Plasma 4.0 2.5 - 4.5 mg/dL 08/26/2025 4:11 AM EDT [facility] Blood Venous blood specimen / Unknown Venipuncture / Unknown 08/26/2025 3:27 AM EDT 08/26/2025 3:38 AM EDT us Sin Min Nancy Singletary DMD, MD LAB BLOOD ORDERABLES Melida l Result Performing Organization Address City/[facility]/[place] [address] * Magnesium, Plasma (08/26/2025 3:27 AM EDT) Magnesium, Plasma 2.2 1.9 - 2.4 mg/dL 08/26/2025 4:11 AM EDT [facility] Blood Venous blood specimen / Unknown Venipuncture / Unknown 08/26/2025 3:27 AM EDT 08/26/2025 3:38 AM EDT us Sin Min Nancy Singletary DMD, MD LAB BLOOD ORDERABLES Melida l Result Performing Organization Address [facility]/[place] [address] * (ABNORMAL) CBC W/O Differential (08/26/2025 3:27 AM EDT) WBC Count 11.66(H) 3.70 - 10.30 10*3/uL LAB HEMATOLOGY METHOD 08/26/2025 3:47 AM EDT [facility] RBC Count 3.00(L) 4.60 - 6.10 10*6/uL LAB HEMATOLOGY METHOD 08/26/2025 3:47 AM EDT [facility] HGB 9.2(L) 13.7 - 17.5 g/dL LAB HEMATOLOGY METHOD 08/26/2025 3:47 AM EDT [facility] HCT 28.1(L) 40.0 - 51.0 % LAB HEMATOLOGY METHOD 08/26/2025 3:47 AM EDT [facility] Platelet Count 455(H) 155 - 369 10*3/uL LAB HEMATOLOGY METHOD 08/26/2025 3:47 AM EDT [facility] MCV 94 79 - 98 fL LAB HEMATOLOGY METHOD 08/26/2025 3:47 AM EDT [facility] MCH 30.7 26.0 - 32.0 pg LAB HEMATOLOGY METHOD 08/26/2025 3:47 AM EDT [facility] MCHC 32.7 30.7 - 35.5 g/dL LAB HEMATOLOGY METHOD 08/26/2025 3:47 AM EDT [facility] RDW 12.6 11.5 - 14.5 % LAB HEMATOLOGY METHOD 08/26/2025 3:47 AM EDT [facility] MPV 9.0 8.8 - 12.5 fL LAB HEMATOLOGY METHOD 08/26/2025 3:47 AM EDT [facility] nRBC 0.0 <=0.0 per 100 WBCs LAB HEMATOLOGY METHOD 08/26/2025 3:47 AM EDT [facility] Blood Venous blood specimen / Unknown Venipuncture / Unknown 08/26/2025 3:27 AM EDT 08/26/2025 3:38 AM EDT us Sin Dilan Singletary DMD, MD LAB BLOOD ORDERABLES Melida mae Result [facility] [address] [place] [address] * (ABNORMAL) Basic Metabolic Panel, Plasma (08/26/2025 3:27 AM EDT) [facility] Glucose, Plasma 101(H) 74 - 99 mg/dL 08/26/2025 4:11 AM EDT [facility] BUN, Plasma 19 7 - 21 mg/dL 08/26/2025 4:11 AM EDT [facility] Creatinine, Plasma 0.59(L) 0.70 - 1.20 mg/dL 08/26/2025 4:11 AM EDT [facility] BUN/Creatinine Ratio 32 08/26/2025 4:11 AM EDT [facility] Sodium, Plasma 138 136 - 145 mmol/L 08/26/2025 4:11 AM EDT [facility] Potassium, Plasma 4.3 3.6 - 4.9 mmol/L 08/26/2025 4:11 AM EDT [facility] Chloride, Plasma 101 97 - 107 mmol/L 08/26/2025 4:11 AM EDT [facility] CO2, Plasma 25 22 - 29 mmol/L 08/26/2025 4:11 AM EDT [facility] Anion Gap 12 6 - 16 mmol/L 08/26/2025 4:11 AM EDT [facility] Total Calcium, Plasma 8.9 8.9 - 10.2 mg/dL 08/26/2025 4:11 AM EDT [facility] eGFRcr 116.7 mL/min/1.7 3m*2 08/26/2025 4:11 AM EDT [facility] Comment:Reported eGFRcr in m L/min/1.73m2 is based the CKD-EPI 2020 equation that does not use a race coefficient. Blood Venous blood specimen / Unknown Venipuncture / Unknown 08/26/2025 3:27 AM EDT 08/26/2025 3:38 AM EDT us Sin Min Nancy Singletary DMD, MD LAB BLOOD ORDERABLES Melida l Result [facility] [address] [place] [address] * (ABNORMAL) POCT glucose meter (08/25/2025 11:38 PM EDT) [facility] POCT Glucose 129(H) 74 - 99 mg/dL [...] Comment 08/26/2025 12:00 AM EDT [facility] Public Weigher ID Hailey Lund 08/26/2025 12:00 AM EDT [facility]ARE [facility] Device ID [id number] 08/26/2025 12:00 AM EDT [facility]ARE [facility] Specimen Type POC Capillary 08/26/2025 12:00 AM EDT [facility] Blood Capillary blood specimen / Unknown 08/25/2025 11:38 PM EDT 08/26/2025 12:00 AM EDT Alvaro Adrian DMD, MD LAB POINT OF [place] RE TEST DOCKED DEVICE UNSOLICITED RESULTS Final Result [facility] [address] [place] [address] * POCT glucose meter (08/25/2025 5:08 PM EDT) [facility] POCT Glucose 91 74 - 99 mg/dL 08/25/2025 5:10 PM EDT [facility] Comment:Accuracy of a [...] Comment 08/25/2025 5:10 PM EDT [facility] Public Weigher ID Marily Cao Ajay 5:10 PM EDT HEALTH[facility]ARE LAB Device ID [id number] 08/25/2025 5:10 PM EDT [facility] Specimen Type POC Capillary 08/25/2025 5:10 PM EDT [facility] Blood Capillary blood specimen / Unknown 08/25/2025 5:08 PM EDT 08/25/2025 5:10 PM EDT us Alvaro Adrian DMD, MD LAB POINT [facility] RE TEST DOCKED DEVICE UNSOLICITED RESULTS Final Result Performing Organization Address [facility] de Phone Number [facility]ALTH[facility]ARE [facility] [address] [place] [address] * (ABNORMAL) POCT glucose meter (08/25/2025 11:42 AM EDT) [facility] POCT Glucose 112(H) 74 - 99 mg/dL [...] Comment 08/25/2025 12:00 PM EDT [facility] Public Weigher ID Marily Cao 12:00 PM EDT HEALTH[facility]ARE LAB Device ID [id number] 08/25/2025 12:00 PM EDT [facility] Specimen Type POC Capillary 08/25/2025 12:[address] [facility] Blood Capillary blood specimen / Unknown 08/25/2025 11:42 AM EDT 08/25/2025 12:00 PM EDT us Alvaro Adrian DMD, MD LAB POINT OF [place] RE TEST DOCKED DEVICE UNSOLICITED RESULTS Final Result Performing Organization Address City/[facility] Co de Phone Number [facility] [address] [place] [address] * POCT glucose meter (08/25/2025 5:02 AM EDT) [facility] POCT Glucose 83 74 - 99 mg/dL [...] Comment 08/25/2025 5:04 AM EDT HEALTHCARE LAB Public Weigher ID Maxwell Ortega 5:04 AM EDT HEALTHCARE LAB Device ID [id number] 08/25/2025 5:04 AM EDT [facility] Specimen Type POC Capillary 08/25/2025 5:04 AM EDT [facility] Blood Capillary blood specimen / Unknown 08/25/2025 5:02 AM EDT 08/25/2025 5:04 AM EDT us Alvaro Adrian DMD, MD LAB POINT OF [place] RE TEST DOCKED DEVICE UNSOLICITED RESULTS Final Result Performing Organization Address City/State/[facility] de Phone Number [facility] [address] [place] [address] * (ABNORMAL) POCT glucose meter (08/24/2025 11:06 PM EDT) [facility] POCT Glucose 107(H) 74 - 99 mg/dL [...] 08/24/2025 11:08 PM EDT [facility] Public Weigher ID Hailey Lund 08/24/2025 11:08 PM EDT HEALTH[facility]ARE LAB Device ID [id number] 08/24/2025 11:08 PM EDT [facility]ARE [facility] Specimen Type POC Capillary 08/24/2025 11:08 PM EDT [facility] Blood Capillary blood specimen / Unknown 08/24/2025 11:06 PM EDT 08/24/2025 11:08 PM EDT us Alvaro Adrian DMD, MD LAB POINT OF [place] RE TEST DOCKED DEVICE UNSOLICITED RESULTS Final Result [facility] [address] [place] [address] * (ABNORMAL) POCT glucose meter (08/24/2025 5:33 PM EDT) [facility] POCT Glucose 133(H) 74 - 99 mg/dL [...] 08/24/2025 5:35 PM EDT [facility] Public Weigher ID Renee Mills 08/24/2025 5:35 PM EDT HEALTHCARE LAB Device ID [id number] 08/24/2025 5:35 PM EDT [facility] Specimen Type POC Capillary 08/24/2025 5:[address] [facility] Blood Capillary blood specimen / Unknown 08/24/2025 5:33 PM EDT 08/24/2025 5:35 PM EDT Alvaro Adrian DMD, MD LAB POINT OF [place] RE TEST DOCKED DEVICE UNSOLICITED RESULTS Final Result Performing Organization Address [facility] de Phone Number [facility] [address] [place] [address] * (ABNORMAL) POCT glucose meter (08/24/2025 12:32 PM EDT) [facility] POCT Glucose 117(H) 74 - 99 mg/dL [...] 08/24/2025 12:38 PM EDT [facility] Public Weigher ID Renee Mills 08/24/2025 12:38 PM EDT HEALTH[facility]ARE LAB Device ID [id number] 08/24/2025 12:38 PM EDT [facility] Specimen Type POC Capillary 08/24/2025 12:38 PM EDT [facility] Blood Capillary blood specimen / Unknown 08/24/2025 12:32 PM EDT 08/24/2025 12:38 PM EDT us Alvaro Adrian DMD, MD LAB POINT OF [place] RE TEST DOCKED DEVICE UNSOLICITED RESULTS Final Result Performing Organization Address City/[facility] Co de Phone Number [facility] [address] [place] [address] * POCT glucose meter (08/24/2025 5:57 AM EDT) [facility] POCT Glucose 92 74 - 99 mg/dL [...] for testing. Comment 08/24/2025 5:59 AM EDT [facility] Public Weigher ID Morenita Lizama 025 5:59 AM EDT [facility] Device ID [id number] 08/24/2025 5:59 AM EDT [facility] Specimen Type POC Capillary 08/24/2025 5:59 AM EDT [facility] Blood Capillary blood specimen / Unknown 08/24/2025 5:57 AM EDT 08/24/2025 5:59 AM EDT us Alvaro Adrian DMD, MD LAB POINT OF [place] RE TEST DOCKED DEVICE UNSOLICITED RESULTS Final Result Performing Organization Address City/[facility] Co de Phone Number [facility] [address] [place] [address] * (ABNORMAL) CBC W/O Differential (08/24/2025 3:29 AM EDT) [facility] WBC Count 10.15 3.70 - 10.30 10*3/uL LAB HEMATOLOGY METHOD 08/24/2025 4:13 AM EDT [facility] RBC Count 2.95(L) 4.60 - 6.10 10*6/uL LAB HEMATOLOGY METHOD 08/24/2025 4:13 AM EDT [facility] HGB 9.1(L) 13.7 - 17.5 g/dL LAB HEMATOLOGY METHOD 08/24/2025 4:13 AM EDT [facility] HCT 27.7(L) 40.0 - 51.0 % LAB HEMATOLOGY METHOD 08/24/2025 4:13 AM EDT [facility] Platelet Count 381(H) 155 - 369 10*3/uL LAB HEMATOLOGY METHOD 08/24/2025 4:13 AM EDT [facility] MCV 94 79 - 98 fL LAB HEMATOLOGY METHOD 08/24/2025 4:13 AM EDT [facility] MCH 30.8 26.0 - 32.0 pg LAB HEMATOLOGY METHOD 08/24/2025 4:13 AM EDT [facility] MCHC 32.9 30.7 - 35.5 g/dL LAB HEMATOLOGY METHOD 08/24/2025 4:13 AM EDT [facility] RDW 12.4 11.5 - 14.5 % LAB HEMATOLOGY METHOD 08/24/2025 4:13 AM EDT [facility] MPV 9.4 8.8 - 12.5 fL LAB HEMATOLOGY METHOD 08/24/2025 4:13 AM EDT [facility] nRBC 0.0 <=0.0 per 100 WBCs LAB HEMATOLOGY METHOD 08/24/2025 4:13 AM EDT [facility] Blood Venous blood specimen / Unknown Venipuncture / Unknown 08/24/2025 3:29 AM EDT 08/24/2025 4:01 AM EDT us Alvaro Adrian DMD, MD LAB BLOOD ORDERABLES Fi nal Result [facility] [address] [place] [address] * (ABNORMAL) Basic Metabolic Panel, Plasma (08/24/2025 3:29 AM EDT) Glucose, Plasma 107(H) 74 - 99 mg/dL 08/24/2025 4:28 AM EDT [facility] BUN, Plasma 17 7 - 21 mg/dL 08/24/2025 4:28 AM EDT [facility] Creatinine, Plasma 0.59(L) 0.70 - 1.20 mg/dL 08/24/2025 4:28 AM EDT [facility] BUN/Creatinine Ratio 29 08/24/2025 4:28 AM EDT [facility] Sodium, Plasma 137 136 - 145 mmol/L 08/24/2025 4:28 AM EDT [facility] Potassium, Plasma 3.9 3.6 - 4.9 mmol/L 08/24/2025 4:28 AM EDT [facility] Chloride, Plasma 101 97 - 107 mmol/L 08/24/2025 4:28 AM EDT [facility] CO2, Plasma 27 22 - 29 mmol/L 08/24/2025 4:28 AM EDT [facility] Anion Gap 9 6 - 16 mmol/L 08/24/2025 4:28 AM EDT [facility] Total Calcium, Plasma 8.8(L) 8.9 - 10.2 mg/dL 08/24/2025 4:28 AM EDT [facility] eGFRcr 116.7 mL/min/1.7 3m*2 08/24/2025 4:28 AM EDT [facility] Comment:Reported eGFRcr in m L/min/1.73m2 is based the CKD-EPI 2020 equation that does not use a race coefficient. Blood Venous blood specimen / Unknown Venipuncture / Unknown 08/24/2025 3:29 AM EDT 08/24/2025 3:59 AM EDT us Alvaro Adrian DMD, MD LAB BLOOD ORDERABLES Fi nal Result [facility] [address] [place] [address] * Magnesium, Plasma (08/24/2025 3:29 AM EDT) Magnesium, Plasma 2.0 1.9 - 2.4 mg/dL 08/24/2025 4:28 AM EDT [facility] Blood Venous blood specimen / Unknown Venipuncture / Unknown 08/24/2025 3:29 AM EDT 08/24/2025 3:59 AM EDT Alvaro Adrian DMD, MD LAB BLOOD ORDERABLES Fi nal Result Performing Organization Address City/[facility] [place] [address] * Phosphorus, Plasma (08/24/2025 3:29 AM EDT) [facility] Phosphorus, Plasma 3.7 2.5 - 4.5 mg/dL 08/24/2025 4:28 AM EDT [facility] Blood Venous blood specimen / Unknown Venipuncture / Unknown 08/24/2025 3:29 AM EDT 08/24/2025 3:59 AM EDT us Alvaro Adrian DMD, MD LAB BLOOD ORDERABLES Fi nal Result Performing Organization Address [facility] [place] [address] * (ABNORMAL) POCT glucose meter (08/24/2025 12:46 AM EDT) [facility] POCT Glucose 126(H) 74 - 99 mg/dL [...] 08/24/2025 12:48 AM EDT [facility] Public Weigher ID Morenita Lizama 025 12:48 AM EDT [facility] Device ID [id number] 08/24/2025 12:48 AM EDT [facility] Specimen Type POC Capillary 08/24/2025 12:48 AM EDT [facility] Blood Capillary blood specimen / Unknown 08/24/2025 12:46 AM EDT 08/24/2025 12:48 AM EDT us Alvaro Adrian DMD, MD LAB POINT OF [place] RE TEST DOCKED DEVICE UNSOLICITED RESULTS Final Result Performing Organization Address City/[facility] Co de Phone Number [facility] [address] [place] [address] * POCT glucose meter (08/23/2025 6:45 PM [...] Comment 08/23/2025 6:47 PM EDT [facility] Public Weigher ID Nicole Doss 08/23/2025 6:47 PM EDT [facility]ALTH[facility] Device ID [id number] 08/23/2025 6:47 PM EDT [facility] Specimen Type POC Capillary 08/23/2025 6:47 PM EDT [facility] Blood Capillary blood specimen / Unknown 08/23/2025 6:45 PM EDT 08/23/2025 6:47 PM EDT us Alvaro Adrian DMD, MD LAB POINT OF CA RE TEST DOCKED DEVICE UNSOLICITED RESULTS Final Result Performing Organization Address City/[facility] Co de Phone Number [facility] [address] [place] [address] * POCT glucose meter (08/23/2025 1:07 PM EDT) POCT Glucose 98 74 - 99 mg/dL [...] Comment 08/23/2025 1:10 PM EDT [facility]ALTH[facility]ARE [facility] Public Weigher ID Nicole Doss 08/23/2025 1:10 PM EDT HEALTH[facility]ARE LAB Device ID [id number] 08/23/2025 1:10 PM EDT [facility] Specimen Type POC Capillary 08/23/2025 1:10 PM EDT [facility] Blood Capillary blood specimen / Unknown 08/23/2025 1:07 PM EDT 08/23/2025 1:10 PM EDT us Alvaro Adrian DMD, MD LAB POINT OF CA RE TEST DOCKED DEVICE UNSOLICITED RESULTS Final Result Performing Organization Address City/State/[facility] Co de Phone Number [facility] [address] [place] [address] * (ABNORMAL) CBC W/O Differential (08/23/2025 3:26 AM EDT) [facility] Signature WBC Count 10.09 3.70 - 10.30 10*3/uL LAB HEMATOLOGY METHOD 08/23/2025 3:45 AM EDT [facility] RBC Count 3.11(L) 4.60 - 6.10 10*6/uL LAB HEMATOLOGY METHOD 08/23/2025 3:45 AM EDT [facility] HGB 9.5(L) 13.7 - 17.5 g/dL LAB HEMATOLOGY METHOD 08/23/2025 3:45 AM EDT [facility] HCT 29.1(L) 40.0 - 51.0 % LAB HEMATOLOGY METHOD 08/23/2025 3:45 AM EDT [facility] Platelet Count 326 155 - 369 10*3/uL LAB HEMATOLOGY METHOD 08/23/2025 3:45 AM EDT [facility] MCV 94 79 - 98 fL LAB HEMATOLOGY METHOD 08/23/2025 3:45 AM EDT [facility] MCH 30.5 26.0 - 32.0 pg LAB HEMATOLOGY METHOD 08/23/2025 3:45 AM EDT [facility] MCHC 32.6 30.7 - 35.5 g/dL LAB HEMATOLOGY METHOD 08/23/2025 3:45 AM EDT [facility] RDW 12.6 11.5 - 14.5 % LAB HEMATOLOGY METHOD 08/23/2025 3:45 AM EDT [facility] MPV 9.5 8.8 - 12.5 fL LAB HEMATOLOGY METHOD 08/23/2025 3:45 AM EDT [facility] nRBC 0.0 <=0.0 per 100 WBCs LAB HEMATOLOGY METHOD 08/23/2025 3:45 AM EDT [facility] Blood Venous blood specimen / Unknown Venipuncture / Unknown 08/23/2025 3:26 AM EDT 08/23/2025 3:34 AM EDT us Alvaro Adrian DMD, MD LAB BLOOD ORDERABLES Fi nal Result [facility] [address] [place] [address] * (ABNORMAL) Basic Metabolic Panel, Plasma (08/23/2025 3:26 AM EDT) Glucose, Plasma 100(H) 74 - 99 mg/dL 08/23/2025 4:07 AM EDT [facility] BUN, Plasma 15 7 - 21 mg/dL 08/23/2025 4:07 AM EDT [facility] Creatinine, Plasma 0.58(L) 0.70 - 1.20 mg/dL 08/23/2025 4:07 AM EDT [facility] BUN/Creatinine Ratio 26 08/23/2025 4:07 AM EDT [facility] Sodium, Plasma 137 136 - 145 mmol/L 08/23/2025 4:07 AM EDT [facility] Potassium, Plasma 4.0 3.6 - 4.9 mmol/L 08/23/2025 4:07 AM EDT [facility] Chloride, Plasma 102 97 - 107 mmol/L 08/23/2025 4:07 AM EDT [facility] CO2, Plasma 25 22 - 29 mmol/L 08/23/2025 4:07 AM EDT [facility] Anion Gap 10 6 - 16 mmol/L 08/23/2025 4:07 AM EDT [facility] Total Calcium, Plasma 8.7(L) 8.9 - 10.2 mg/dL 08/23/2025 4:07 AM EDT [facility] eGFRcr 117.3 mL/min/1.7 3m*2 08/23/2025 4:07 AM EDT [facility] Comment:Reported eGFRcr in m L/min/1.73m2 is based the CKD-EPI 2020 equation that does not use a race coefficient. Blood Venous blood specimen / Unknown Venipuncture / Unknown 08/23/2025 3:26 AM EDT 08/23/2025 3:35 AM EDT us Alvaro Adrian DMD, MD LAB BLOOD ORDERABLES Fi nal Result Performing Organization Address City/[facility] Co de Phone Number [facility] [address] [place] [address] * Magnesium, Plasma (08/23/2025 3:26 AM EDT) Magnesium, Plasma 2.0 1.9 - 2.4 mg/dL 08/23/2025 4:07 AM EDT [facility] Blood Venous blood specimen / Unknown Venipuncture / Unknown 08/23/2025 3:26 AM EDT 08/23/2025 3:35 AM EDT us Alvaro Adrian DMD, MD LAB BLOOD ORDERABLES Fi nal Result Performing Organization Address City/[facility]/ZIP Co de Phone Number [facility] [address] [place] [address] * Phosphorus, Plasma (08/23/2025 3:26 AM EDT) Phosphorus, Plasma 3.3 2.5 - 4.5 mg/dL 08/23/2025 4:07 AM EDT [facility] Blood Venous blood specimen / Unknown Venipuncture / Unknown 08/23/2025 3:26 AM EDT 08/23/2025 3:35 AM EDT us Alvaro Adrian DMD, MD LAB BLOOD ORDERABLES Fi nal Result Performing Organization Address City/[facility]/ZIP Co de Phone Number [facility] [address] [place] [address] * Phosphorus (08/22/2025 5:02 AM EDT) Phosphorus, Plasma 3.1 2.5 - 4.5 mg/dL 08/22/2025 6:09 AM EDT [facility] Blood Venous blood specimen / Unknown Venipuncture / Unknown 08/22/2025 5:02 AM EDT 08/22/2025 5:33 AM EDT us Marvin Santana MD LAB BLOOD ORDERABLES Fin al Result Performing Organization Address [facility] Co de Phone Number [facility] [address] [place] [address] * Magnesium (08/22/2025 5:02 AM EDT) Magnesium, Plasma 2.0 1.9 - 2.4 mg/dL 08/22/2025 6:09 AM EDT [facility] Blood Venous blood specimen / Unknown Venipuncture / Unknown 08/22/2025 5:02 AM EDT 08/22/2025 5:33 AM EDT us Marvin Santana MD LAB BLOOD ORDERABLES Fin al Result Performing Organization Address [facility]/ZIP Co de Phone Number [facility] [address] [place] [address] * (ABNORMAL) Basic metabolic panel (08/22/2025 5:02 AM EDT) Glucose, Plasma 95 74 - 99 mg/dL 08/22/2025 6:09 AM EDT [facility] BUN, Plasma 15 7 - 21 mg/dL 08/22/2025 6:09 AM EDT [facility] Creatinine, Plasma 0.52(L) 0.70 - 1.20 mg/dL 08/22/2025 6:09 AM EDT [facility] BUN/Creatinine Ratio 29 08/22/2025 6:09 AM EDT [facility] Sodium, Plasma 139 136 - 145 mmol/L 08/22/2025 6:09 AM EDT [facility] Potassium, Plasma 3.8 3.6 - 4.9 mmol/L 08/22/2025 6:09 AM EDT [facility] Chloride, Plasma 102 97 - 107 mmol/L 08/22/2025 6:09 AM EDT [facility] CO2, Plasma 27 22 - 29 mmol/L 08/22/2025 6:09 AM EDT [facility] Anion Gap 10 6 - 16 mmol/L 08/22/2025 6:09 AM EDT [facility] Total Calcium, Plasma 8.8(L) 8.9 - 10.2 mg/dL 08/22/2025 6:09 AM EDT [facility] eGFRcr 121.3 mL/min/1.7 3m*2 08/22/2025 6:09 AM EDT [facility] Comment:Reported eGFRcr in m L/min/1.73m2 is based the CKD-EPI 2020 equation that does not use a race coefficient. Blood Venous blood specimen / Unknown Venipuncture / Unknown 08/22/2025 5:02 AM EDT 08/22/2025 5:33 AM EDT us Marvin Santana MD LAB BLOOD ORDERABLES Fin al Result [facility] [address] [place] [address] * (ABNORMAL) CBC W/O Differential (08/22/2025 5:02 AM EDT) WBC Count 11.20(H) 3.70 - 10.30 10*3/uL LAB HEMATOLOGY METHOD 08/22/2025 5:44 AM EDT [facility] RBC Count 3.19(L) 4.60 - 6.10 10*6/uL LAB HEMATOLOGY METHOD 08/22/2025 5:44 AM EDT [facility] HGB 9.8(L) 13.7 - 17.5 g/dL LAB HEMATOLOGY METHOD 08/22/2025 5:44 AM EDT [facility] HCT 29.6(L) 40.0 - 51.0 % LAB HEMATOLOGY METHOD 08/22/2025 5:44 AM EDT [facility] Platelet Count 271 155 - 369 10*3/uL LAB HEMATOLOGY METHOD 08/22/2025 5:44 AM EDT [facility] MCV 93 79 - 98 fL LAB HEMATOLOGY METHOD 08/22/2025 5:44 AM EDT [facility] MCH 30.7 26.0 - 32.0 pg LAB HEMATOLOGY METHOD 08/22/2025 5:44 AM EDT [facility] MCHC 33.1 30.7 - 35.5 g/dL LAB HEMATOLOGY METHOD 08/22/2025 5:44 AM EDT [facility] RDW 12.6 11.5 - 14.5 % LAB HEMATOLOGY METHOD 08/22/2025 5:44 AM EDT [facility] MPV 9.5 8.8 - 12.5 fL LAB HEMATOLOGY METHOD 08/22/2025 5:44 AM EDT [facility] nRBC 0.0 <=0.0 per 100 WBCs LAB HEMATOLOGY METHOD 08/22/2025 5:44 AM EDT [facility] Blood Venous blood specimen / Unknown Venipuncture / Unknown 08/22/2025 5:02 AM EDT 08/22/2025 5:32 AM EDT us Marvin Santana MD LAB BLOOD ORDERABLES Fin al Result [facility] [address] [place] [address] * (ABNORMAL) CBC W/O Differential (08/20/2025 5:56 AM EDT) WBC Count 16.03(H) 3.70 - 10.30 10*3/uL LAB HEMATOLOGY METHOD 08/20/2025 6:17 AM EDT [facility] RBC Count 3.46(L) 4.60 - 6.10 10*6/uL LAB HEMATOLOGY METHOD 08/20/2025 6:17 AM EDT [facility] HGB 10.8(L) 13.7 - 17.5 g/dL LAB HEMATOLOGY METHOD 08/20/2025 6:17 AM EDT [facility] HCT 31.2(L) 40.0 - 51.0 % LAB HEMATOLOGY METHOD 08/20/2025 6:17 AM EDT [facility] Platelet Count 290 155 - 369 10*3/uL LAB HEMATOLOGY METHOD 08/20/2025 6:17 AM EDT [facility] MCV 90 79 - 98 fL LAB HEMATOLOGY METHOD 08/20/2025 6:17 AM EDT [facility] MCH 31.2 26.0 - 32.0 pg LAB HEMATOLOGY METHOD 08/20/2025 6:17 AM EDT [facility] MCHC 34.6 30.7 - 35.5 g/dL LAB HEMATOLOGY METHOD 08/20/2025 6:17 AM EDT [facility] RDW 12.6 11.5 - 14.5 % LAB HEMATOLOGY METHOD 08/20/2025 6:17 AM EDT [facility] MPV 9.7 8.8 - 12.5 fL LAB HEMATOLOGY METHOD 08/20/2025 6:17 AM EDT [facility] nRBC 0.0 <=0.0 per 100 WBCs LAB HEMATOLOGY METHOD 08/20/2025 6:17 AM EDT [facility] Blood Venous blood specimen / Unknown Venipuncture / Unknown 08/20/2025 5:56 AM EDT 08/20/2025 6:09 AM EDT us Marvin Santana MD LAB BLOOD ORDERABLES Fin al Result [facility] [address] [place] [address] * (ABNORMAL) Basic Metabolic Panel, Plasma (08/20/2025 5:56 AM EDT) Pathologist [facility] Glucose, Plasma 140(H) 74 - 99 mg/dL 08/20/2025 6:39 AM EDT [facility] BUN, Plasma 16 7 - 21 mg/dL 08/20/2025 6:39 AM EDT [facility] Creatinine, Plasma 0.64(L) 0.70 - 1.20 mg/dL 08/20/2025 6:39 AM EDT [facility] BUN/Creatinine Ratio 25 08/20/2025 6:39 AM EDT [facility] Sodium, Plasma 136 136 - 145 mmol/L 08/20/2025 6:39 AM EDT [facility] Potassium, Plasma 5.2(H) 3.6 - 4.9 mmol/L 08/20/2025 6:39 AM EDT [facility] Comment:Hemolyzed, result ma y be falsely increased. Chloride, Plasma 101 97 - 107 mmol/L 08/20/2025 6:39 AM EDT [facility] CO2, Plasma 23 22 - 29 mmol/L 08/20/2025 6:39 AM EDT [facility] Anion Gap 12 6 - 16 mmol/L 08/20/2025 6:39 AM EDT [facility] Total Calcium, Plasma 8.6(L) 8.9 - 10.2 mg/dL 08/20/2025 6:39 AM EDT [facility] eGFRcr 113.9 mL/min/1.7 3m*2 08/20/2025 6:39 AM EDT [facility] Comment:Reported eGFRcr in m L/min/1.73m2 is based the CKD-EPI 2020 equation that does not use a race coefficient. Blood Venous blood specimen / Unknown Venipuncture / Unknown 08/20/2025 5:56 AM EDT 08/20/2025 6:08 AM EDT us Marvin Santana MD LAB BLOOD ORDERABLES Fin al Result [facility] [address] [place] [address] * (ABNORMAL) Magnesium, Plasma (08/20/2025 5:56 AM EDT) Magnesium, Plasma 1.8(L) 1.9 - 2.4 mg/dL 08/20/2025 6:39 AM EDT [facility] Blood Venous blood specimen / Unknown Venipuncture / Unknown 08/20/2025 5:56 AM EDT 08/20/2025 6:08 AM EDT Marvin Santana MD LAB BLOOD ORDERABLES Fin al Result [facility] [address] [place] [address] * Phosphorus, Plasma (08/20/2025 5:56 AM EDT) Phosphorus, Plasma 3.2 2.5 - 4.5 mg/dL 08/20/2025 6:39 AM EDT [facility] Blood Venous blood specimen / Unknown Venipuncture / Unknown 08/20/2025 5:56 AM EDT 08/20/2025 6:08 AM EDT Marvin Santana MD LAB BLOOD ORDERABLES Fin al Result Performing Organization Address City/[facility] Co de Phone Number [facility] [address] [place] [address] * XR Abdomen 1 View (08/19/2025 8:37 [...] of the abdomen. COMPARISON: None. FINDINGS: Limited [id number] abdominal radiograph for the purpose of locating tube position. The tip of the feeding tube is within the proximal stomach. Procedure Note Patricio Trevino MD - 08/19/2025 CLINICAL INDICATION: DHT placement TECHNIQUE: Supine radiograph of the abdomen. COMPARISON: None. FINDINGS: Limited czkbi-gj-[id number] abdominal radiograph for the purpose of locatingtube [...] at day 1 08/21/2025 7:33 AM EDT [facility] Swab (Nares and Nini Rectal) Non-blood Collection / Unknown 08/19/2025 8:19 PM EDT 08/19/2025 8:30 PM EDT Narrative [facility] - 08/21/2025 7:33 AM EDT This test was developed and its performance characteristics determined by the [facility]. Although the media is FDA-approved, it is not FDA-approved for all specimen types submitted. The FDA has determined that such clearance or approval is not necessary. This test is used for surveillance purposes. It should not be regarded as investigational or for research. The [facility] is certified under the Clinical Laboratory Improvement Amendments of 1988 (CLIA-88) as qualified to perform high complexity clinical laboratory testing. us Marvin Santana MD LAB MICROBIOLOGY - GENER AL ORDERABLES Final Result [facility] [address] [place] [address] * Cecelia auris Surveillance by PCR (08/19/2025 8:19 PM EDT) Cecelia auris PCR Result Not Detected Not Detected 08/21/2025 10:33 AM EDT [facility] Swab (Axilla and Groin) Non-blood Collection / Unknown 08/19/2025 8:19 PM EDT 08/19/2025 8:30 PM EDT Narrative [facility] - 08/21/2025 10:33 AM EDT This PCR assay was developed and its performance characteristics determined by [facility] as appropriate for clinical purposes. This assay has not been cleared or approved by the FDA, but is performed in a CLIA regulated laboratory that is qualified to perform high-complexity testing. us Marvin Santana MD LAB MICROBIOLOGY - GENER AL ORDERABLES Final Result [facility] [address] [place] [address] * (ABNORMAL) Blood gas, arterial (08/19/2025 12:23 PM EDT) pH, Arterial 7.38 7.35 - 7.45 LAB HEMATOLOGY METHOD 08/19/2025 12:40 PM EDT [facility] pCO2, Arterial 42 32 - 45 mmHg LAB HEMATOLOGY METHOD 08/19/2025 12:40 PM EDT [facility] pO2, Arterial 107 83 - 108 mmHg LAB HEMATOLOGY METHOD 08/19/2025 12:40 PM EDT [facility] SO2, Measured, Arterial 99(H) 94 - 98 % LAB HEMATOLOGY METHOD 08/19/2025 12:40 PM EDT [facility] Base Excess, Arterial -0.8 -2.0 - 3.0 mmol/L LAB HEMATOLOGY METHOD 08/19/2025 12:40 PM EDT [facility] Bicarbonate, Calculated, Arterial 24 22 - 26 mmol/L LAB HEMATOLOGY METHOD 08/19/2025 12:40 PM EDT [facility] Hematocrit, Whole Blood 38.9(L) 40.0 - 51.0 % LAB HEMATOLOGY METHOD 08/19/2025 12:40 PM EDT [facility] Sodium, Whole Blood 138 136 - 145 mmol/L LAB HEMATOLOGY METHOD 08/19/2025 12:40 PM EDT [facility] Potassium, Whole Blood 3.7 3.6 - 4.9 mmol/L LAB HEMATOLOGY METHOD 08/19/2025 12:40 PM EDT [facility] Chloride, Whole Blood 105 97 - 107 mmol/L LAB HEMATOLOGY METHOD 08/19/2025 12:40 PM EDT [facility] Glucose, Whole Blood 146(H) 74 - 99 mg/dL LAB HEMATOLOGY METHOD 08/19/2025 12:40 PM EDT [facility] Ionized Calcium, Whole Blood 4.5(L) 4.6 - 5.1 mg/dL LAB HEMATOLOGY METHOD 08/19/2025 12:40 PM EDT [facility] Lactate, Arterial, Whole Blood 1.0 0.5 - 1.6 mmol/L LAB HEMATOLOGY METHOD 08/19/2025 12:40 PM EDT 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 [address] [place] [address] * Surgical Pathology Exam (08/19/2025 10:32 AM EDT) Case Report Surgical Pathology Case: [id number] Authorizing Provider: Marvin Santana MD Collected: 08/19/2025 0917 Ordering Location: [facility] Received: 08/19/2025 1337 Pathologist: [...] fresh for permanent 08/28/2025 11:21 AM EDT [facility] Addendum This addendum is to document the provided clinical history. There is no change in the final diagnosis. Floor of mouth squamous cell carcinoma 08/28/2025 11:21 AM EDT [facility] Addendum electronically signed by Ellen [...] FOR CARCINOMA (0/20) 08/28/2025 11:21 AM T [facility] at 1949 EDT Comment:This is an appended [...] in part L. 08/28/2025 11:21 AM T [facility] Comment:This is an appended report. These results [...] pN Category: pN1 08/28/2025 11:21 AM EDT [facility] Clinical Information No Dx Found. 08/28/2025 11:21 AM EDT [facility] Comment:This is an appended report. [...] TUMOR IDENTIFIED. NO 08/28/2025 11:21 AM EDT [facility] Comment:Corrected result: Pr eviously reported [...] a robin-white, papillary, irregularly-shap ed 2.4 cm (anterior-battery plate assembler ior) by 1.9 (superior-inferi or) lesion that appears to abut the posterior and inferior margins. Gross photographs both pre ink and inked are provided. Ink code: Blue-anterior Red-superior Green-inferior Black-posterior Le Mars-medial Uninked (with lesion)-lateral Specimen is serially sectioned [...] of left brandyn mandibulectomy measuring 10.0 cm (anterior-battery plate assembler ior) x 4.6 cm (left-right) x 3.5 cm (superior-inferi or) with an attached ramus measuring 6.2 cm (superior-inferi or) x 0.6 cm (left-right) x 1.3 cm (anterior-battery plate assembler ior). The specimen is oriented by a short-short stitch on the lateral soft tissue, a long-short stitch on the anterior soft tissue and a long-long stitch on the medial soft tissue. The attached medial soft tissue measures 3.4 (left-right) by 8.4 (anterior-battery plate assembler ior) by 2.0 (superior-inferi or), and is [...] and the gingiva there is a 3.4 (anterior-battery plate assembler ior by 1.8 (superior-inferi or by 0.8 [...] no other interosseous lesions are grossly noted Cutting Machine Tender sections are submitted as follows: L1: Anterior mucosal and soft tissue margin L2: Lateral mucosal and soft tissue margin L3: Medial mucosal and soft tissue margin L4: Posterior mucosal and soft tissue margin L5: Inferior soft tissue margin L6: Mass 2 L7-L9: Mass 1, deepest bone invasion in L9 L10: Mandibular interosseous lesion L11: Softened bone adjacent to lesion L12: Cutting Machine Tender sample of lesion Cold Time: 0 Marvel Herrera MD M. LEFT LEVEL NECK 2, FRESH FOR PERMANENT Specimen is received fresh, placed in formalin labeled [facility] level neck 2 and consists of a [...] possible minute lymph nodes Cold Time: 0 Mavrel Herrera MD 08/28/2025 11:21 AM EDT [facility] Comment:This is an appended report. These results have been appended to a previously preliminary verified report. Note: A resident was involved in the service. I attest I examined the relevant preparations for the specimens and confirmed the diagnosis or interpretation. 08/28/2025 11:21 AM EDT [facility] Comment:This is an appended report. [...] PATHOLOGY ORDERABLE S Edited Result - Final Performing Organization Address City/State/[facility] Co de Phone Number [facility] [address] [place] [address] * Surgical Pathology Exam (08/19/2025 9:17 AM EDT) Case Report Surgical Pathology Case: [id number] Authorizing Provider: Marvin Santana MD Collected: 08/19/2025 0917 Ordering Location: [facility]PER[facility] Received: 08/19/2025 1337 Pathologist: Timothy [...] fresh for permanent 08/28/2025 11:21 AM EDT [facility] Addendum This addendum is to document the provided clinical history. There is no change in the final diagnosis. Floor of mouth squamous cell carcinoma 08/28/2025 11:21 AM EDT [facility] Addendum electronically signed by Ellen [...] FOR CARCINOMA (0/20) 08/28/2025 11:21 AM EDT [facility] at 1947 EDT Comment:This is [...] in part L. 08/28/2025 11:21 AM EDT [facility] Comment:This is an appended report. [...] pN Category: pN1 08/28/2025 11:21 AM EDT [facility] Clinical Information No Dx Found. 08/28/2025 11:21 AM EDT [facility] Comment:This is an appended report. [...] TUMOR IDENTIFIED. NO 08/28/2025 11:21 AM EDT [facility] Comment:Corrected result: Pr eviously reported [...] 0.4 x 0.4 x 0.3 fragment of orbin-pink soft tissue. Specimen is submitted entirely in [...] a robin-white, papillary, irregularly-shap ed 2.4 cm (anterior-battery plate assembler ior) by 1.9 (superior-inferi or) lesion that appears to abut the posterior and inferior margins. Gross photographs both pre ink and inked are provided. Ink code: Blue-anterior Red-superior Green-inferior Black-posterior Le Mars-medial Uninked (with lesion)-lateral Specimen is serially sectioned [...] of left brandyn mandibulectomy measuring 10.0 cm (anterior-battery plate assembler ior) x 4.6 cm (left-right) x 3.5 cm (superior-inferi or) with an attached ramus measuring 6.2 cm (superior-inferi or) x 0.6 cm (left-right) x 1.3 cm (anterior-battery plate assembler ior). The specimen is oriented by a short-short stitch on the lateral soft tissue, a long-short stitch on the anterior soft tissue and a long-long stitch on the medial soft tissue. The attached medial soft tissue measures 3.4 (left-right) by 8.4 (anterior-battery plate assembler ior) by 2.0 (superior-inferi or), and is [...] and the gingiva there is a 3.4 (anterior-battery plate assembler ior by 1.8 (superior-inferi or by 0.8 [...] no other interosseous lesions are grossly noted Cutting Machine Tender sections are submitted as follows: L1: Anterior mucosal and soft tissue margin L2: Lateral mucosal and soft tissue margin L3: Medial mucosal and soft tissue margin L4: Posterior mucosal and soft tissue margin L5: Inferior soft tissue margin L6: Mass 2 L7-L9: Mass 1, deepest bone invasion in L9 L10: Mandibular interosseous lesion L11: Softened bone adjacent to lesion L12: Cutting Machine Tender sample of lesion Cold Time: 0 Marvel Herrera MD M. LEFT LEVEL NECK 2, FRESH FOR PERMANENT Specimen is received fresh, placed in formalin labeled [facility] level neck 2 and consists of a [...] Marvel Herrera MD 08/28/2025 11:21 AM EDT [facility] Comment:This is an appended report. These results have been appended to a previously preliminary verified report. Note: A resident was involved in the service. I attest I examined the relevant preparations for the specimens and confirmed the diagnosis or interpretation. 08/28/2025 11:21 AM EDT [facility] Comment:This is an appended report. [...] LAB PATHOLOGY ORDERABLES Edited Result - Final [facility] [address] [place] [address] * (ABNORMAL) Blood gas, arterial (08/19/2025 9:07 AM EDT) pH, Arterial 7.38 7.35 - 7.45 LAB HEMATOLOGY METHOD 08/19/2025 9:16 AM EDT [facility] pCO2, Arterial 44 32 - 45 mmHg LAB HEMATOLOGY METHOD 08/19/2025 9:16 AM EDT [facility] pO2, Arterial 195(H) 83 - 108 mmHg LAB HEMATOLOGY METHOD 08/19/2025 9:16 AM EDT [facility] SO2, Measured, Arterial 100(H) 94 - 98 % LAB HEMATOLOGY METHOD 08/19/2025 9:16 AM EDT [facility] Base Excess, Arterial 0.7 -2.0 - 3.0 mmol/L LAB HEMATOLOGY METHOD 08/19/2025 9:16 AM EDT [facility] Bicarbonate, Calculated, Arterial 26 22 - 26 mmol/L LAB HEMATOLOGY METHOD 08/19/2025 9:16 AM EDT [facility] Hematocrit, Whole Blood 36.2(L) 40.0 - 51.0 % LAB HEMATOLOGY METHOD 08/19/2025 9:16 AM EDT [facility] Sodium, Whole Blood 141 136 - 145 mmol/L LAB HEMATOLOGY METHOD 08/19/2025 9:16 AM EDT [facility] Potassium, Whole Blood 3.7 3.6 - 4.9 mmol/L LAB HEMATOLOGY METHOD 08/19/2025 9:16 AM EDT [facility] Chloride, Whole Blood 107 97 - 107 mmol/L LAB HEMATOLOGY METHOD 08/19/2025 9:16 AM EDT [facility] Glucose, Whole Blood 99 74 - 99 mg/dL LAB HEMATOLOGY METHOD 08/19/2025 9:16 AM EDT [facility] Ionized Calcium, Whole Blood 4.7 4.6 - 5.1 mg/dL LAB HEMATOLOGY METHOD 08/19/2025 9:16 AM EDT [facility] Lactate, Arterial, Whole Blood 1.1 0.5 - 1.6 mmol/L LAB HEMATOLOGY METHOD 08/19/2025 9:16 AM EDT [facility] Blood Arterial blood specimen / Unknown Arterial Puncture / Unknown 08/19/2025 9:07 AM EDT 08/19/2025 9:14 AM EDT Kenneth Benavides CRNA LAB BLOOD ORDERABLES Final Result [facility] [address] [place] [address] * Type and Screen (08/19/2025 7:05 AM [...] BLOOD BANK TEST ORD ERABLES Final Result BLOOD BANK [address] [place] [address], documented in this encounter Visit Diagnoses Diagnosis [...] EDT 40 mL lidocaine-EPINEPHrine (Xylocaine W/EPI) 1 %-1:760919 injection As needed, Starting on Tue08/19/25 at [...] (Given - Provider: Marily Owens RN)1550 ([facility] Hold - Provider: Automatic Transfer Provider - Reason: Patient in procedure)1922 ([facility] Unhold - Provider: Automatic Transfer Provider) 918 (Given - Provider: Kris Douglas RN) 08 (Given - Provider: Kris Douglas RN) bacitracin (425g jar) ointment 1 Jar (CANCELED) 1 Jar, Topical, Daily, First dose on Tue08/19/25 at 1900, Until Discontinued, Routine 0900 (Given - Provider: Marily Owens RN)155 ([facility] Hold - Provider: Automatic Transfer Provider - Reason: Patient in procedure)1922 ([facility] Unhold - Provider: Automatic Transfer Provider) 923 (Given - Provider: Kris Douglas RN) clindamycin (Cleocin) IV solution 900 mg (COMPLETED) 900 mg, Intravenous, Once, 1 dose, On Tue08/28/25 at 1815, Routine, Anesthesia Intraprocedure 1833 (New Bag - Provider: Sergio Melo, RENATO) esomeprazole (NexIUM) packet for suspension 40 mg 40 mg, Nasogastric, Daily, First dose on Jackie 08/22/25 at 0900, Until Discontinued 08 (Given - Provider: Marily Owens RN)155 ([facility] Hold - Provider: Automatic Transfer Provider - Reason: Patient in procedure)1922 ([facility] Unhold - Provider: Automatic Transfer Provider) 918 (Given - Provider: Kris Douglas RN) 819 (Given - Provider: Kris Douglas RN) gabapentin (Neurontin) capsule 300 mg 300 mg, Nasogastric, 3 times daily, First dose (after last modification) on Jackie 08/22/25 at 0900, Until Discontinued, Routine, Recovery(Phase II-Outpatient)/On Unit(Inpatient) 0859 (Given - Provider: Marily Owens RN)155 ([facility] Hold - Provider: Automatic Transfer Provider - Reason: Patient in procedure)1600 (Dose Auto Held - Provider: Automatic Transfer Provider)1922 ([facility] Unhold - Provider: Automatic Transfer Provider)2047 (Given [...] Provider - Reason: Patient in procedure)1922 ([facility] Unhold - Provider: Automatic Transfer Provider) 0505 (Given - Provider: Carly Perez) 0515 (Given - Provider: Carly Perez) lidocaine-EPINEPHrine (Xylocaine W/EPI) 1 %-1:901113 injection 10 mL (COMPLETED) 10 mL, Infiltration, Once, 1 dose, On Jackie 08/29/25 at 0645, Routine 1126 (Given - Provider: Kris Douglas, RENATO) melatonin tablet 6 mg 6 mg, Nasogastric, Nightly, First dose on 08/24/25 at 2100, Until Discontinued, Routine 1550 ([facility] Hold - Provider: Automatic Transfer Provider - Reason: Patient in procedure)1922 ([facility] Unhold - Provider: Automatic Transfer Provider)2047 (Given - Provider: Carly Perez) 1999 (Given - Provider: Carly Perez) metoprolol tartrate (Lopressor) split tablet 12.5 mg 12.5 mg, Nasogastric, 2 times daily, First dose on Tue08/20/25 at 1415, Until Discontinued, Routine 0859 (Given - Provider: Marily Owens RN)1550 ([facility] Hold - Provider: Automatic Transfer Provider - Reason: Patient in procedure)1922 ([facility] Unhold - Provider: Automatic Transfer Provider)2047 (Given - Provider: Carly Perez) 0919 (Given - Provider: Kris Douglas, RENATO)1999 (Given - Provider: Carly Perez) 0820 (Given [...] (Given - Provider: Marily Owens RN)1550 ([facility] Hold - Provider: Automatic Transfer Provider - Reason: Patient in procedure)1922 ([facility] Unhold - Provider: Automatic Transfer Provider)2047 (Given - Provider: Carly Perez) 0921 (Not Given - Provider: Kris Douglas RN - Reason: Patient/family refused)1999 (Given - Provider: Carly Perez) 0948 (Given - Provider: Kris Douglas, RENATO) senna (Senokot) tablet 8.6 mg 8.6 mg, Nasogastric, 2 times daily, First dose on Tue08/23/25 at 0900, Until Discontinued, Routine 0858 (Given - Provider: Marily Owens RN)1550 ([facility] Hold - Provider: Automatic Transfer Provider - Reason: Patient in procedure)1922 ([facility] Unhold - Provider: Automatic Transfer Provider)2047 (Given - Provider: Carly Perez) 0919 (Given - Provider: Kris Douglas RN)1999 (Given - Provider: Carly Perez) 0949 (Given - Provider: Kris Douglas RN) sodium chloride 3 % nebulizer solution 3 mL 3 mL, Nebulization, 2 times daily, First dose (after last modification) on Tue08/26/25 at 0900, Until Discontinued, Routine 0850 (Given - Provider: Devante Black)1550 ([facility] Hold - Provider: Automatic Transfer Provider - Reason: Patient in procedure)1922 ([facility] Unhold - Provider: Automatic Transfer Provider)2027 (Given - Provider: Dex Perez) 0756 (Given - Provider: Gigi Killian)2144 (Given - Provider: Marvel Mcrae) 0825 (Given - Provider: Kaleigh Peterson) PRN Medication Order 08/28/2025 08/29/2025 08/30/2025 bisacodyl (Dulcolax) suppository 10 mg 10 mg, Rectal, Once as needed, 1 dose, Starting on Tue08/27/25 at 0820, Until Tue08/30/25 at 1753, Routine, constipation 1550 ([facility] Hold - Provider: Automatic Transfer Provider - Reason: Patient in procedure)1922 ([facility] Unhold - Provider: Automatic Transfer Provider) bupivacaine-EPINEPHrine PF (Marcaine w/EPI) 0.25% -1:957148 injection (CANCELED) As needed, Starting on Tue08/28/25 [...] Tue08/30/25 at 1753, Routine, constipation 1550 ([facility] Hold - Provider: Automatic Transfer Provider - Reason: Patient in procedure)192 ([facility] Unhold - Provider: Automatic Transfer Provider) ondansetron (Zofran) 4 MG/5ML solution 4 mg(Linked Group 2) 4 mg, Nasogastric, Every 6 hours PRN, Starting on 08/25/25 at 0637, Until Tue08/30/25 at 1753, Routine, Recovery(Phase II-Outpatient)/On Unit(Inpatient), nausea, vomiting 1550 ([facility] Hold - Provider: Automatic Transfer Provider - Reason: Patient in procedure)192 ([facility] Unhold - Provider: Automatic Transfer Provider) ondansetron (Zofran) injection 4 mg(Linked Group 2) 4 mg, Intravenous, Every 6 hours PRN, Starting on 08/25/25 at 0637, Until Tue08/30/25 at 1753, Routine, Recovery(Phase II-Outpatient)/On Unit(Inpatient), vomiting, nausea 1550 ([facility] Hold - Provider: Automatic Transfer Provider - Reason: Patient in procedure)192 ([facility] Unhold - Provider: Automatic Transfer Provider) oxyCODONE (Roxicodone) immediate release tablet 10 mg(Linked Group 3) 10 mg, Nasogastric, Every 4 hours PRN, Starting on 10/12/25 at 0638, Until Tue08/30/25 at 1753, Routine, severe pain 0452 (Given - Provider: James Juan RN)1550 ([facility] Hold - Provider: Automatic Transfer Provider - Reason: Patient in procedure)1922 ([facility] Unhold - Provider: Automatic Transfer Provider)2047 (Given - Provider: Carly Perez) 0230 (Given - Provider: Carly Perez)0728 (Given - Provider: Carly Perez)1400 (Given - Provider: Kris Douglas, RENATO)1999 (Given - Provider: Carly Perez) 025 (Given - Provider: Carly Perez)0820 (Given - [...] (See Alternative - Provider: James Juan RN)1550 ([facility] Hold - Provider: Automatic Transfer Provider - Reason: Patient in procedure)1922 ([facility] Unhold - Provider: Automatic Transfer Provider)2047 (See Alternative - Provider: Carly Perez) 0230 (See Alternative - Provider: Carly Perez)0728 (See Alternative - Provider: Carly Perez)1400 (See Alternative - Provider: Kris Douglas, RENATO)1999 (See Alternative - Provider: Carly Perez) 0252 (See Alternative - Provider: Carly Perez)0820 (See Alternative - Provider: Kris Douglas, RENATO)1325 (See Alternative - Provider: Landon Driscoll) Linked [...] documented as of this encounter Care Teams Site Planner Relationship Specialty Start Date End Date Christina Arteaga APRN [address] [place] [address] PCP - General 06/20/25 Maxwell White, CLEM [address] [place] [address] [address] [place] [address] Referring Physician 06/24/25 documented as of this encounter
--- OUTSIDE RECORDS SUMMARY | 2025-08-19 07:17 | XMS_ITS | Encounter Summary ---
Author Organization [facility] Address [address] 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] Procedures MT BONE-SKIN GRAFT, MICROVASCULAR MT RECMPL WND HEAD,FAC,HAND 2.6-7.5 CM MT REPR,FACE,GENITAL,HAND,FT+5 CMCM/< MT LAYR CLOS WND REST BODY 12.6-20 CM MT RECONSTR MANDIBLE,BONE PLATE MT REMV MALIG JAW BONE RADICAL MT REMOVAL NODES, NECK,CERV CMPLT MT PART REMOVAL TONGUE,<1/2 MT BONE-SKIN GRAFT, MICROVASCULAR MT RECONSTR MANDIBLE,BONE PLATE MT RECMPL WND HEAD,FAC,HAND 2.6-7.5 CM MT REPR,FACE,GENITAL,HAND,FT+5 CMCM/< MT LAYR CLOS WND REST BODY 12.6-20 CM MT TRACHEOSTOMY, PLANNED Left mandibular reconstruction with right [...] DISSECTION, NECK, RADICAL GLOSSECTOMY Marvin Santana MD [address] [address] Phone: tel: fax: [facility] [address] [place] [address] Phone: tel: Referral ID Status Reason Start Date Expiration Date Visits Re quested Visits Authorized [id number] 1 1 Encounter Details Date Type Department Care Team (Late st Contact Info) Description 08/19/2025 8:17 AM EDT Anesthesia Event [facility] [address] [place] [address] Kenneth Benavides, DURALUMIN METALWORKER [address] [place] [address] Indra Mcgregor, [address] [place] [address] Anesthesia Record Procedure Summary Procedure Name Responsible Anesthesiologist Anesthesia Start Time Anesthesia Stop Time Left mandibular reconstruction with right free fibula, complex closure of oral wound, (Bilateral) Kenneth Benavides, DURALUMIN METALWORKER 08/19/25 0817 08/19/25 1823 Events Date Time [...] 1754 Proc Fin 1808 an stop data 181 Out of Room 181 Handoff to Receiving I compl eted my handoff to the receiving clinician during which we: 1. Identified the patient 2. Identified the responsible provider 3. Reviewed the pertinent medical history 4. Discussed the surgical course 5. Reviewed intra-op anesthesia management and issues during anesthesia 6. Set expectations for post-procedure period 7. Allowed opportunity for questions and acknowledgement of understanding. 1822 An Stop Meds Name Total midazolam (Versed) injection 1 mg/mL 2 m g fentaNYL (Sublimaze) injection 50 mcg/mL 400 mcg lidocaine PF (Xylocaine-MPF) 2% 100 mg propofol (Diprivan) injection 10 mg/mL 3 00 mg rocuronium (ZeMuron) injection 10 mg/mL 130 mg dexamethasone (Decadron) injection 4 mg/ mL 12 mg HYDROmorphone PF (Dilaudid) injection 1 mg/mL 2 mg phenylephrine (Beltran-Synephrine) prefilled syringe 1 mg/10 mL 100 mcg ondansetron (Zofran) injection 2 mg/mL 4 mg sugammadex (Bridion) injection 100 mg/mL 100 mg ceFAZolin (Ancef) vial 1 g 6 g esmolol (Brevibloc) injection 10 mg/mL 3 0 mg labetalol (Normodyne,Trandate) injection 5 mg/mL 5 mg calcium chloride injection 10% 1 g dexmedetomidine (Precedex) infusion in N aCl 4 mcg/mL 20 mcg lactated Ringer's infusion 2,200 mL electrolyte (Isolyte or Plasma-lyte) IV solution 1,536.67 mL * Agents Name O2 N2O Air Isoflurane Inspired Isoflurane N2O Inspired N2O * Blood No blood administrations on file. [...] Surgical, Flap; Leg; Anterior, Lower, Right 08/19/25 1541 by Stacey Faulkner RN Surgical Airway Placement Date: 05/08; Placement Time: 1726; Type: Tracheostomy; Brand: Inkerwang; Style: Cuffed; Size(mm): 6 08/19/251726 by Bob Alfonso RN Feeding Tube Placement [...] Removal Time: 154; Removal Reason: Discharge 08/19/25 07 by Betsy Mayberry RN 08/30/25 154 by Kris Douglas RN ETT Placement Date: 05/08; Placement Time: 826 (created via procedure documentation); Mask Ventilation: 1; [...] 08/19/25; Removal Time: 19008/19/25 08 by Kenneth Benavides, DURALUMIN METALWORKER 08/19/25 190 by Nely Cardoza RN Peripheral IV Placement Date: 05/08; Placement Time: 828; Catheter Size: 18 G; Orientation: Left; Location: Hand; Site Prep: Alcohol; Insertion Attempts: 1; Removal Date: 08/30/25; Removal Time: 154; Removal Reason: Discharge 08/19/25 08 by Kenneth Benavides CRNA 08/30/25 154 by Kris Douglas RN Urethral Catheter Placement Date: 05/08; Placement Time: 0830; Inserted by: Stacey Faulkner RN; Type: Temperature [...] Peripheral IV Placement Date: 05/08; Placement Time: 0935; Catheter Size: 16 G; Orientation: Left; Location: Foot; Site Prep: Alcohol; Insertion Attempts: 1; Removal Date: 08/26/25; Removal Time: 0200; Removal Reason: Per patient/family request 08/19/25 0935 by Kenneth Benavides CRNA 08/26/25 0200 by James Juan RN Closed/Suction Drain 08/19/25; 1650; No; Anterior, Right; Neck; Bulb; 15 Fr. 08/19/25 1650 by Stacey Faulkner RN 08/28/25 1735 by Sergio Melo RN Flap/Graft 08/19/25; 1817; Ante rior, Left, Lower; 08/28/25; 1735 (not in place upon arrival to pacu) 08/19/25 1817 by Bob Alfonso RN 08/28/25 1735 by Sergio Melo [...] any time in the past 12 [facility], were you homeless or living in a halfway (including now)? No 08/20/2025 [facility] Utilities Answer Date Recorded In the past 12 months has th e electric, gas, oil, or water [employer]opp[employer] threatened to shut off services in your home? No 08/20/2025 Sex and Gender Information Value Date Recorded Sex Assigned at Not on file Legal Sex Male 8:28 PM EDT Gender Identity Male 06/18/2025 11:51 AM EDT Sexual Orientation Not on file documented as of this encounter Functional Status * Calculated C-SSRS [...] Mayberry RN documented as of this encounter Miscellaneous Notes * Anesthesia Postprocedure Evaluation - Kenneth Benavides CRNA - 08/19/2025 6:18 PM EDT Patient: Saravanan Perez Anesthesia Type: general Vitals Value Taken Time BP 99/54 08/19/25 18:21 Temp 98.8 08/19/25 18:24 Pulse 97 08/19/25 18:23 Resp 22 08/19/25 18:23 SpO2 100 % 08/19/25 18:23 Vitals shown include unfiled device data. Anesthesia Post Evaluation Patient location during evaluation: PACU Patient participation: complete - patient cannot participate Level of consciousness: awake and sedated Airway patency: tracheostomy Cardiovascular status: acceptable and hemodynamically stable Respiratory status: acceptable, blow-by oxygen, nonlabored ventilation and spontaneous ventilation Hydration status: acceptable Nausea/Vomiting: No No notable events documented. * Anesthesia Procedure Notes - Kenneth Benavides CRNA - 08/19/2025 8:53 AM EDT Associated Order(s): Arterial Line Arterial Line: Date/Time: 08/19/2025 8:39 AM An arterial line was placed. Procedure performed using ultrasound guidance in the OR for the following indication(s): continuousblood pressure monitoring. A 20 gauge (size), 1 and 3/4 inch (length), Arrow (type) catheter was placed into the Right radial artery and secured by tape. Seldinger technique used Events: patient tolerated procedure well with no complications. Staffing Performed: DURALUMIN METALWORKER DURALUMIN METALWORKER: Kenneth Benavides CRNA * Anesthesia Procedure Notes - Kenneth Benavides CRNA - 08/19/2025 8:51 AM EDT Associated Order(s): Airway Airway Date/Time: 08/19/2025 8:27 AM Reason: elective Airway not difficult General Information and Staff Patient location during procedure: OR DURALUMIN METALWORKER: Kenneth Benavides CRNA Performed: DURALUMIN METALWORKER Patient Condition Indications for airway management: anesthesia Patient position: sniffing Final Airway Details Final airway type: endotracheal airway Successful airway: ETT Cuffed: yes Successful intubation technique: direct laryngoscopy Adjuncts used in placement: intubating stylet Endotracheal tube insertion site: oral Blade: Qiana Blade size: #3 ETT size (mm): 6.5 Cormack-Lehane Classification: grade IIa - partial view of glottis (Deviated to the right) Placement verified by: chest auscultation and capnometry Measured from: lips Additional Comments Atraumatic. No change to dentition. * Anesthesia Preprocedure Evaluation - Caden Alas MD - 08/18/2025 4:08 PM EDT Anesthesiologist: (Unknown) DURALUMIN METALWORKER: (Unknown) Personal Lines Account Manager: (Unknown) Patient: Carlito Perez HPI Carlito Perez is a 54 y.o. male with body mass index is unknown because there is no height or weight on file. who presents with Floor of mouth squamous cell carcinoma, now for Left mandibularreconstruction with right free fibula, complex closure of oral wound, (Bilateral), EXCISION, NEOPLASM, MALIGNANT, MANDIBLE (N/A), DISSECTION, NECK, RADICAL (N/A), GLOSSECTOMY (N/A) Procedure Information Date/Time: 08/19/25 0745 Procedures: Left mandibular reconstruction with right free fibula, complex closure of oral wound, (Bilateral) -CPT code: 49131, 80605, 73518, 19805, 85661. Time: 8 hours. Coordinate with Nguyễn TRAVIS EXCISION, NEOPLASM, MALIGNANT, MANDIBLE DISSECTION, NECK, RADICAL GLOSSECTOMY Location: OR / [facility] Surgeons: Marvin Santana MD; Alvaro Adrian DMD, MD Relevant Problems Cardio (+) Coronary artery calcification (+) Hypertension Endo (+) Hypothyroidism (acquired) GI (+) Gastroesophageal reflux disease ALLERGIES Allergies[1] NPO STATUS Past Medical History[2] ROS Anesthesia: Date of last anesthetic: Last GA ~ 30 yr ago for orthopedic surgeries following [facility] 2022 Does not have a history of anesthetic complications, malignant hyperthermia, obstructive sleep apnea and PONV. Anesthesia ROS additional comments: prior traumatic intubation with one of his vocal cords removed, requiring tracheostomy ~ 30 yr ago Cardiovascular: CAD (stents x 4 in 2022) and hyperlipidemia. Does not have CHF, dyspnea, dysrhythmias, murmur, pacemaker, past RI or syncope. hypertension: Does not have chest pain. Cardio additional comments: Exercise Tolerance: 2 flights of stairs Walks ~ 1 mile every other. Goes to gym 3 x weekly. Weights, light cardio Currently working. 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 Left [...] is no recent study available for direct [id number] comparison. . Respiratory: Does not have home [...] diabetes mellitus. thyroid disorder (hypothyroid on levothyroxine). AIRWAY HISTORY Airway Detailed Review Displaying the 20 most recent records No records found. MEDICATIONS Outpatient Current Outpatient Medications Medication Instructions ASPIRIN 81 PO aspirin 81 mg, Daily atorvastatin (LIPITOR) 20 mg, Daily Cranberry 125 MG tablet 1 tablet, Daily diphenhydrAMINE (BENADRYL) 50 mg, Oral, Once PRN Procedure doxycycline (ADOXA) 50 mg, Oral, 2 times daily, Take with a full glass of water and do not lie downfor at least 30 minutes after. ibuprofen 200 mg, Every 6 hours PRN levothyroxine (SYNTHROID, LEVOXYL) 50 mcg, Daily before breakfast Metoprolol Succinate 50 MG capsule extended-release 24 hour sprinkle metoprolol succinate XL (TOPROL-XL) 50 mg, Daily Multiple Vitamin (MULTIVITAMIN ADULT PO) Multiple Vitamin (multivitamin) tablet 1 tablet, Daily omeprazole (PRILOSEC) 40 mg, Daily predniSONE (DELTASONE) 50 mg, Oral, As needed, To be given at 13 hours, 7 hours, and 1 hour BEFORE contrast injection. Exam scheduled for 08/09/25 (Date/Time). prochlorperazine (COMPAZINE) 10 mg, Oral, Every 6 hours PRN ramipril (Altace) 2.5 MG capsule ramipril (ALTACE) 2.5 mg, Daily Scheduled Current Scheduled Medications[3] PRNs Current PRN Medications[4] SURGICAL HX: Surgical History[5] SOCIAL HX: Social History[6] OBJECTIVE DATA LABS Lab Results Component Value Date WBC 9.66 07/25/2025 HGB 12.7 (L) 07/25/2025 HCT 37.5 (L) 07/25/2025 MCV 92 07/25/2025 PLT 293 07/25/2025 Lab Results Component Value Date CALCIUM 9.2 07/25/2025 BUN 15 07/25/2025 CREATININE 0.88 07/25/2025 BCR 17 07/25/2025 NA 137 07/25/2025 K 4.1 07/25/2025 CL 102 07/25/2025 CO2 21 (L) 07/25/2025 Type and Screen No results found for: ABO No results found for: HGBA1C Lab Results Component Value Date GLUCOSE 117 (H) 07/25/2025 ABG No results found for: PHART , YZD8TFS , PO2ART , SO2ART , BEART , OCT8VUZ , HCTART , SODIUMART , POTASSIUMART , POCTCL , POCGLU , IONCALART , LACTATE No results found for: PH , PCO2 , PO2 , M6TYZKAU , BASEEXC , HCTSYR , KSYR , CLSYR , GLUSYR , CAION , LACTATE ECHO No echocardiogram results found for the past 12 months PFTs No results found for: LHP1DNA , BRZ1ZGQI , DZR2WDO , FVCPRED BP Readings from Last 5 Encounters: 08/09/25 114/78 07/30/25 127/69 07/25/25 104/67 07/25/25 102/68 07/09/25 124/83 Physical Exam Airway Mallampati: II Mouth opening: normal TM distance: >3 FB Neck ROM: full Cardiovascular Rhythm: regular Rate: normal Dental (+) poor dentition Pulmonary Breath sounds clear to auscultation Neurological Oriented: normal to time, normal to place and normal to person Skin Musculoskeletal Extremities Anesthesia Plan ASA 3 Anesthesia technique(s) discussed with the patient/family: general Anesthesia plan agreed upon was: general Anesthesia Evaluation [1] Allergies Allergen Reactions Fish Allergy Swelling Penicillin G Anaphylaxis Shellfish Allergy Anaphylaxis Penicillins Unknown - Patient states they do not know rxn details [2] Past Medical History: Diagnosis Date Adverse effect of anesthesia allergy to shellfish, penicillan CAD (coronary artery disease) Cancer [facility]) [id number] Coronary artery calcification Dental disease chipped teeth, jony block for vocal chord damage Fractures clavical surgery GERD (gastroesophageal reflux disease) 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 HLD (hyperlipidemia) HTN (hypertension) Hypothyroidism Reflux gastritis Substance abuse 1988 [3] [4] [5] Past Surgical History: Procedure Laterality Date APPENDECTOMY 1979 CARDIOTHORACIC PROCEDURE stents CAROTID STENT 04/26/2023 COLONOSCOPY 2023 CORONARY STENT PLACEMENT [id number] ORTHOPEDIC SURGERY repair to clavical OTHER SURGICAL HISTORY appendectomy, vasectomy THROAT SURGERY repair vocal chords [6] Social History Tobacco Use Smoking status: Every Day Current packs/day: 1.00 Average packs/day: 1 pack/day for 40.8 years (40.8 ttl pk-yrs) Types: Cigarettes Start date: 1984 Passive exposure: Current Smokeless tobacco: Former Types: Snuff, Chew Vaping Use Vaping status: Never Used Substance Use Topics Alcohol use: Never Drug use: Never documented in this encounter Plan of Treatment Upcoming Encounters Date Type Department Care Team (Late st Contact Info) Description 10/08/2025 9:15 AM EST Office Visit [facility]astic [facility] Re[facility] Surgery [address] [place] [phone] Marvin Santana MD [address] [phone] 10/08/2025 10:30 AM EST Office Visit [facility] [address] [place] [phone] Alvaro Adrian DMD, MD [address] [place] [address] [address] [place] [phone] documented as of this encounter Procedures Procedure Name Priority Date/Time Associated Diagnosis Comments PB ANESTHESIA NON-TIMED PROCEDURE PLACEHOLDER Routine 08/19/2025 8:39 AM EDT PB ANESTHESIA PLACEHOLDER Routine 08/19/2025 8:27 AM EDT MT AN ELECTIVE ENDOTRACHEAL AIRWAY Routine 08/19/2025 8:27 AM EDT documented in this encounter Results * PB ANESTHESIA NON-TIMED PROCEDURE PLACEHOLDER (08/19/2025 8:39 AM EDT) Kenneth Saldivar CRNA - 08/19/2025 8:39 AM EDT Kenneth Benavides CRNA 08/19/2025 8:54 AM Arterial Line: Date/Time: 08/19/2025 8:39 AM An arterial line was placed. Procedure performed using ultrasound guidance in the OR for the following indication(s): continuous blood pressure monitoring. A 20 gauge (size), 1 and 3/4 inch (length), Arrow (type) catheter was placed into the Right radial artery and secured by tape. Seldinger technique used Events: patient tolerated procedure well with no complications. Staffing Performed: ARLENE DURALUMIN METALWORKER: Kenneth Benavides CRNA Caden Alas MD ANESTHESIA ORDERABLES Final Re sult * MT AN ELECTIVE ENDOTRACHEAL AIRWAY, PB ANESTHESIA PLACEHOLDER (08/19/2025 8:27 AM EDT) Kenneth Saldivar CRNA - 08/19/2025 8:27 AM EDT Kenneth Benavides CRNA 08/19/2025 8:53 AM Airway Date/Time: 08/19/2025 8:27 AM Reason: elective Airway not difficult General Information and Staff Patient location during procedure: OR DURALUMIN METALWORKER: Kenneth Benavides CRNA Performed: DURALUMIN METALWORKER Patient Condition Indications for airway management: anesthesia Patient position: sniffing Final Airway Details Final airway type: endotracheal airway Successful airway: ETT Cuffed: yes Successful intubation technique: direct laryngoscopy Adjuncts used in placement: intubating stylet Endotracheal tube insertion site: oral Blade: Qiana Blade size: #3 ETT size (mm): 6.5 Cormack-Lehane Classification: grade IIa - partial view of glottis (Deviated to the right) Placement verified by: chest auscultation and capnometry Measured from: lips Additional Comments Atraumatic. No change to dentition. us Caden Alas MD ANESTHESIA ORDERABLES Final Re sult documented in this encounter Visit Diagnoses Not on filedocumented in this encounter Administered Medications Inactive Administered Medications - up to 3 most recent administrations Medication Order MAR Action Action Date Dose Rate Site calcium chloride 10 % injection Intravenous, As needed, Starting on Tue08/19/25 at 1242, Until Tue08/19/25 at 1825, Routine, Anesthesia Intraprocedure Given 08/19/2025 3:45 PM EDT 0.5 g Given 08/19/2025 12:42 PM EDT 0.5 g ceFAZolin (Ancef) injection Intravenous, As needed, Starting on Tue08/19/25 at 0842, Until Tue08/19/25 at 1825, Routine, Anesthesia Intraprocedure Given 08/19/2025 4:42 PM EDT 2 g Given 08/19/2025 12:42 PM EDT 2 g Given 08/19/2025 8:42 AM EDT 2 g dexamethasone (Decadron) injection Intravenous, As needed, Starting on Tue08/19/25 at 0832, Until Tue08/19/25 at 1825, Routine, Anesthesia Intraprocedure Given 08/19/2025 5:28 PM EDT 4 mg Given 08/19/2025 8:32 AM EDT 8 mg dexmedetomidine in NS (Precedex) 4 mcg/mL infusion Intravenous, As needed, Starting on Tue08/19/25 at 1738, Until Tue08/19/25 at 1825, Routine Given 08/19/2025 5:53 PM EDT 12 mcg Given 08/19/2025 5:38 PM EDT 8 mcg electrolyte (Isolyte-S or Plasmalyte-A) IV solution Intravenous, Continuous PRN, Starting on Tue08/19/25 at 0930, Until Tue08/19/25 at 1825, Routine New Bag 08/19/2025 9:30 AM EDT 200 mL/hr esmolol (Brevibloc) injection Intravenous, As needed, Starting on Tue08/19/25 at 1004, Until Tue08/19/25 at 1825, Routine, Anesthesia Intraprocedure Given 08/19/2025 10:04 AM EDT 30 mg fentaNYL (Sublimaze) injection Intravenous, As needed, Starting on Tue08/19/25 at 0842, Until Tue08/19/25 at 1825, Routine, Anesthesia Intraprocedure Given 08/19/2025 5:47 PM EDT 25 mcg Given 08/19/2025 2:48 PM EDT 25 mcg Given 08/19/2025 1:04 PM EDT 50 mcg HYDROmorphone PF (Dilaudid) injection Intravenous, As needed, Starting on Tue08/19/25 at 0947, Until Tue08/19/25 at 1825, Routine, Anesthesia Intraprocedure Given 08/19/2025 5:21 PM EDT 0.25 mg Given 08/19/2025 5:05 PM EDT 0.25 mg Given 08/19/2025 4:45 PM EDT 0.5 mg labetalol (Normodyne,Trandate) injection Intravenous, As needed, Starting on Tue08/19/25 at 1011, Until Tue08/19/25 at 1825, Routine, Anesthesia Intraprocedure Given 08/19/2025 10:11 AM EDT 5 mg lactated Ringer's infusion Intravenous, Continuous PRN, Starting on Tue08/19/25 at 0820, Until Tue08/19/25 at 1825, Routine New Bag 08/19/2025 1:54 PM EDT New Bag 08/19/2025 10:13 AM EDT New Bag 08/19/2025 8:20 AM EDT lidocaine PF (Xylocaine) 2 % injection Intravenous, As needed, Starting on Tue08/19/25 at 0825, Until Tue08/19/25 at 1825, Routine, Anesthesia Intraprocedure Given 08/19/2025 8:25 AM EDT 100 mg midazolam (Versed) injection Intravenous, As needed, Starting on Tue08/19/25 at 0817, Until Tue08/19/25 at 1825, Routine, Anesthesia Intraprocedure Given 08/19/2025 8:17 AM EDT 2 mg ondansetron (Zofran) injection Intravenous, As needed, Starting on Tue08/19/25 at 1728, Until Tue08/19/25 at 1825, Routine, Anesthesia Intraprocedure Given 08/19/2025 5:28 PM EDT 4 mg phenylephrine in NS (Beltran-Synephrine) 100 mcg/mL prefilled syringe Intravenous, As needed, Starting on Tue08/19/25 at 1411, Until Tue08/19/25 at 1825, Routine, Anesthesia Intraprocedure Given 08/19/2025 2:11 PM EDT 100 mcg propofol (Diprivan) injection Intravenous, As needed, Starting on Tue08/19/25 at 0825, Until Tue08/19/25 at 1825, Routine, Anesthesia Intraprocedure Given 08/19/2025 9:58 AM EDT 50 mg Given 08/19/2025 9:54 AM EDT 50 mg Given 08/19/2025 8:25 AM EDT 200 mg rocuronium (ZeMuron) injection Intravenous, As needed, Starting on Tue08/19/25 at 0825, Until Tue08/19/25 at 1825, Routine, Anesthesia Intraprocedure Given 08/19/2025 11:22 AM EDT 10 mg Given 08/19/2025 10:37 AM EDT 20 mg Given 08/19/2025 9:16 AM EDT 40 mg sugammadex (Bridion) 100 MG/ML injection Intravenous, As needed, Starting on Tue08/19/25 at 1728, Until Tue08/19/25 at 1825, Routine, Anesthesia Intraprocedure Given 08/19/2025 5:28 PM EDT 100 mg documented in this encounter Additional Health Concerns Assessment Noted Time A fall risk assessment has been complete d for the patient 08/09/2025 1:39 PM EDT A Body Mass Index follow-up plan has been documented for the patient 08/30/2025 1:58 PM EDT documented as of this encounter Care Teams Breakfast Bar Attendant Relationship Specialty Start Date End Date Christina Arteaga APRN [address] [place] [address] PCP - General 06/20/25 Maxwell White DMD [address] [place] [address] Referring Physician 06/24/25 documented as of this encounter
--- OUTSIDE RECORDS SUMMARY | 2025-08-28 13:30 | XMS_ITS | Encounter Summary ---
Author Organization [facility] Address [address] 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] Procedures IA BONE-SKIN GRAFT, MICROVASCULAR IA RECMPL WND HEAD,FAC,HAND 2.6-7.5 CM IA REPR,FACE,GENITAL,HAND,FT+5 CMCM/< IA LAYR CLOS WND REST BODY 12.6-20 CM IA RECONSTR MANDIBLE,BONE PLATE IA REMV MALIG JAW BONE RADICAL IA REMOVAL NODES, NECK,CERV CMPLT IA PART REMOVAL TONGUE,<1/2 IA BONE-SKIN GRAFT, MICROVASCULAR IA RECONSTR MANDIBLE,BONE PLATE IA RECMPL WND HEAD,FAC,HAND 2.6-7.5 CM IA REPR,FACE,GENITAL,HAND,FT+5 CMCM/< IA LAYR CLOS WND REST BODY 12.6-20 CM IA TRACHEOSTOMY, PLANNED Left mandibular reconstruction with right [...] DISSECTION, NECK, RADICAL GLOSSECTOMY Marvin Santana MD [address] [address] Phone: tel: fax: [facility] [address] [place] [address] Phone: tel: Referral ID Status Reason Start Date Expiration Date Visits Re quested Visits Authorized [id number] 1 1 Encounter Details Date Type Department Care Team (Late st Contact Info) Description 08/28/2025 2:30 PM EDT - 08/28/2025 3:45 PM EDT Surgery [facility] [address] [place] [id number] Marvin Santana MD [address] [place] [address] Split thickness skin graft to right lower extremity flap donor site [14406 (CPT ) +1 more] Surgery Details Date/Time Status Location OR Service Patient Class Case Class Case Type Trauma Case? 08/28/2025 2:30 PM Posted [place] [facility] 2OR 06 Plastic Surgery Inpatient E-Electi ve Panel 1 Procedure LRB Anes Op Region Wound Class Comments Split thickness skin graft to right lower extremity flap donor site Right General Leg Lower Class I/ Clean [place] inpatient. Waitlist 08/28. Time: 30 minutes Surgeon Surgeon Role Service Panel Roma Rolon MD Resident - Assisting 1 Marvin Santana MD Primary Plastic Surgery 1 Special Needs Dermatome, skin graft mesher, Artiss 4 cc and sprayer, xeroform, telfa, epinephrine/saline, tegaderm, 4-0 vicryl rapide, adaptic, silver dermanet documented in this encounter Social History Tobacco [...] any time in the past 12 m [facility], were you homeless or living in a care home (including now)? No 08/21/2025 [facility] Utilities Answer Date Recorded In the [...] Sign Reading Time Taken Comments Blood Pressure 136/78 08/28/2025 8:46 AM EDT Pulse 75 08/28/2025 12:14 PM EDT Temperature 36.3 C (97.4 F) 08/28/2025 8:46 AM EDT Respiratory Rate 18 08/28/2025 12:14 PM EDT Oxygen Saturation 99% 08/28/2025 12:14 PM EDT Inhaled Oxygen Concentration - - Weight 88.7 kg (195 lb 8.8 oz) 08/26/2025 4:13 P M EDT Height 180.3 cm (5' 11 ) 08/26/2025 4:13 PM EDT Body Mass Index 27.27 08/26/2025 4:13 PM EDT documented in this encounter Functional Status * Calculated C-SSRS Risk Score (Lifetime/Recent) Answer Date of Assessment Author No Risk Indicated 08/27/2025 8:00 PM EDT James Lewis RN * Question Answer Date of Assessment Author 1. Wish to be (Past 1 Month) No 08/27/2025 8:00 PM EDT Alena Juan RN 2. Non-Specific Active Suici violet Thoughts (Past 1 Month) No 08/27/2025 8:00 PM EDT Timothy Juan RN 6. Suicidal Behavior (Lifetime) No 8:00 PM EDT James Juan, RENATO documented as of this encounter Discharge Instructions * Discharge Instructions* Rusty Melendrez, FABIOS - 08/29/2025 6:50 AM EDT [facility] Oral & Maxillofacial Surgery Cancer Surgery Discharge [...] on 09/06/[address] Adrian. Address/Phone Number: [facility] [address] [facility] [place] [address] Thank you for the opportunity [...] Note Carlito Perez 54 y.o. male CSN: [id number] Admission: 08/19/2025 5:29 AM Primary Problem: Floor of mouth squamous cell carcinoma Primary Farm Management Agent: Primary Caregiver: Self Assistance Available at Discharge: Availability of Care Givers (#Hours): 24 hours Family/Farm Management Agent(s) Willingness Assessed to care for patient at home: Yes Family/Farm Management Agent(s) Readiness Assessed to care for patient at home: Yes Housing Circumstances-Z Codes: Housing Circumstances (select all that apply): None Applicable Patient Referred to Financial or Community Resources: Discharge Facility/Level of Care Needs: Discharge Facility/Level of Care Needs: 2-Vxud-Yozajd Care [facility] Patient's Choice of Community Agency(s): Patient/Family Anticipated [...] Medicare Documentation: Follow-up: Alvaro Adrian DMD, MD [address] [facility] [address] [facility] [address] Wound rlr-Ntanxpcmx-Fsce Follow up [facility] Address: [address] [place] [address] Follow up [facility]. [facility] Follow up [facility] Address: [address] [place], [address] Follow up Rolling walker, please keep equipment [...] Medically readyto discharge today. Accepted by above [facility]. They will call patient to arrange a home visit. Acceptedby above infusion pharmacy. They will deliver bedside and bedside nurse will provide a teaching session with patient/family. Patient agrees to dc home today and agrees with above DC plan. In??s MARIANELA Kelly, vessel manager * Discharge Summary - Rusty Melendrez, DDS - 08/30/2025 12:45 PM EDT Images from the original note were not included. Hospitalization Admit Date/Time: 08/19/2025 5:29 AM Admitting Attending: Marvin Santana Discharge Date: 08/30/25 Discharge Attending Physician: Alvaro Adrian DMD PCP name and Address: Christina Arteaga, RESIDENT ASSOCIATE [address] [facility] [address] Referring provider name and address: Alvaro Adrian DMD, MD [address] [address] Chief Concern, Brief History of Present Illness, [...] Your Medications These medications were sent to [facility] [place], [place] - [address] [facility] [address] acetaminophen 500 MG tablet aspirin 325 MG [...] cell carcinoma Squamous cell carcinoma of mandible [facility] Oral & Maxillofacial Surgery Cancer Surgery Discharge [...] on 09/06/[address] Adrian. Address/Phone Number: [facility] [address] [facility] [place] [address] Thank you for the opportunity to allow us to participate in your care. Please do not hesitate to contact our office if you have any questions or concerns. Outpatient Follow-Up Future Appointments Date Time Provider Department Center 09/03/2025 8:15 AM [facility] 09/06/2025 1:00 PM Alvaro Adrian DMD, MD [facility] Pertinent Physical Exam At Time of Discharge [...] preparation for this discharge. Rusty Melendrez DDS [facility] OMFS, PGY-1 Cosigned by Alvaro Adrian [...] Review Outcome: Ongoing, Progressing Flowsheets Taken 08/29/2025 041 by Carly Perez Plan of Care Reviewed [...] Flowsheets (Taken 08/27/2025 1016 by Don Dolan, RENATO) Oral Nutrition Promotion: physical activity promoted Nutrition [...] Note Carlito Perez 54 y.o. male CSN: [id number] Admission: 08/19/2025 5:29 AM Primary Problem: Floor of mouth squamous cell carcinoma Anticipated Discharge Date: 08/29/25 Has Discharge Plans Changed? Medicare Second Notice: Housing Circumstances: Housing Circumstances Action Taken: Medically Ready for Discharge: Additional Comments TF has been approved, [employer] will deliver this afternnon at bedside. Kellie [...] Note Carlito Perez 54 y.o. male CSN: [id number] Room/Bed 128/128A Nutrition evaluation type: follow-up Reason [...] WNL) O2 Delivery Method: Humidified trach collar Lincoln Coma Scale Score: 15 Dex Scale Score: [...] mmol/L 100 99 99 CO2 mmol/L 28 28 BUN mg/dL 19 18 17 [...] 08/26/25 88.7 kg (195 lb 8.8 oz) 09/26/25 90.5 kg (199 lb 8.3 oz) 07/30/25 [...] for accuracy Estimated Needs: Kcal: 30-35 kcal/kg (9719-8544 kcal/d) Protein: 1.5-1.8 g/kg (131-157 g/d) Based [...] shellfish, penicillan CAD (coronary artery disease) Cancer ([facility]) [id number] Coronary artery calcification Dental disease chipped teeth, jony block for vocal chord damage Fractures clavical surgery GERD (gastroesophageal reflux disease) 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 HLD (hyperlipidemia) HTN (hypertension) Hypothyroidism Reflux gastritis Substance abuse 1988 [2] Past Surgical History: Procedure Laterality Date APPENDECTOMY 1979 CARDIOTHORACIC PROCEDURE stents CAROTID STENT 04/26/2023 COLONOSCOPY 2023 CORONARY STENT PLACEMENT [id number] ORTHOPEDIC SURGERY repair to clavical OTHER SURGICAL [...] Care Family/Caregiver Present: Yes Family/Caregiver: (Adult Sister) Hoop Maker Helper Machine: Not Applicable Presentation Oxygen Therapy: Supplemental oxygen [...] Mobility Bed Mobility Exam: Scooting/Bridging Level of [place]: Stand-by assist (anteriorly to EOB) Physical/Nonphysical Assist: Set-up required, Supervision, Verbal Cues Bed Mobility Exam: Supine to Sit Level of [place]: Stand-by assist (to the left) Physical/Nonphysical Assist: Set-up required, Supervision, Verbal Cues, Minimal cues, HOB elevated Transfers Transfer Exam: Sit to stand Level of [place]: Stand-by assist Physical/Nonphysical Assist: Set-up required, Supervision, Verbal Cues, Minimal cues Assistive Device: Walker, rolling Transfer Exam: Stand to Sit Level of [place]: Stand-by assist Physical/Nonphysical Assist: Supervision, Verbal Cues, [...] handout/printout provided for visual reference. Access Code: [email or web address] URL: [email or web address] Date: 08/29/2025 Exercises - Seated Elbow Flexion [...] Equipment for Bathing & Showering Standardized Assessments [facility] 6-Click Daily Activities Help from Other: Don/Doff Regular Lower Body Clothings: A lot Help From Other: Bathing: Little Help From Other: Toileting: None Help From Other: Don/Doff Upper Body Clothings: None Help From Other: Grooming: None Help From Other: Eating Meals: Little (DHT) [facility] 6 Click - Daily Activities Score: 20/24 [facility] Scoring Interpretation: Scores greater than 20.5 [...] admission Level of Mobility Ambulatory- community Mobility [place] Independent gait without device History of Falls [...] unaware when pt may be discharged from [facility]. Hoop Maker Helper Machine (if applicable) Not Applicable OBJECTIVE & INTERVENTIONS [...] Treatment Minutes 20 BED MOBILITY Level of [place] Physical/Non- physical Assist Adaptive Equipment Utilized Rolling/ Turning Scooting/ Bridging Stand-by assist Set-up required, Supervision, Verbal Cues Supine to Sit Stand-by assist Set-up required, Supervision, Verbal Cues, Minimal cues, HOB elevated Sit to Supine Interventions TRANSFERS Level of [place] Physical/Non- physical Assist Adaptive Equipment Utilized Sit to Stand Stand-by assist Set-up required, Supervision, Verbal Cues, Minimal cues Walker, rolling Stand to sit Stand-by assist Supervision, Verbal Cues, Minimal cues Walker, rolling Bed to Chair Toilet Transfer Shower Transfer Interventions AMBULATION Level of [place] Distance Adaptive Equipment Utilized Ambulation Standby assist, Minimal verbal cues 130' x 2 with seated rest break between each distance Rolling walker Comments Cues for safety awareness. TECH WRITER presence was necessary for: * managing lines [...] Maxillofacial Surgery Progress Note 08/29/25 Carlito Perez [facility] Day: 11 Subjective HISTORY OF PRESENT [...] x2, inner canula changed x2 by RT, MUSAEO. Edited by: Rusty Melendrez DDS at 08/29/2025 [...] Units Date/Time Cecelia auris Surveillance by PCR [[id number]] (Normal) Collected: 10/06/25 2019 Order Status: Completed Specimen: Swab from Axilla and Groin Updated: 08/21/25 1033 Cecelia auris PCR Result Not Detected Narrative: This PCR assay was developed and its performance characteristics determined by [facility] as appropriate for clinical purposes. This assay has not been cleared or approved bythe FDA, but is performed in a CLIA regulated laboratory that is qualified to perform high-complexity testing. Multi Drug Resistance Test [[id number]] Collected: 08/19/252018 Order Status: Completed Specimen: Swab from Nares and Nini Rectal Updated: 08/21/25 0733 Culture No growth at day 1 Narrative: This test was developed and its performance characteristics determined by the [facility]. Although the media is FDA-approved, it is not FDA-approved for all specimen types submitted. The FDA has determined that such clearance or approval is not necessary. This test is used for surveillance purposes. It should not be regarded as investigational or for research. The [facility] is certified under [...] with patient at bedside Rusty Melendrez DDS [facility] OMFS, PGY-1 Cosigned by Alvaro Adrian [...] maintained clutter-free environment maintained mobility aid in [facility] nonskid shoes/slippers when out of bed room organization consistent safety round/check completed toileting scheduled lighting adjusted Intervention: Prevent Skin Injury Flowsheets Taken 08/29/2025 041 by Carly Perez Body Position: weight shifting [...] Renteria MD - 08/28/2025 9:37 PM EDT [facility] Department of Surgery Division of [...] nursing staff. I have notified senior resident/attending labor relations manager with any issues or concerns. * Anesthesia [...] PM EDT Operative Note Date: 08/28/25 Location: [place] [facility] Name: Saravanan Perez, : 1970, Diagnoses: [...] Attending Surgeon(s): * Marvin Santana - Primary Body Bumper(s): * Roma Rolon MD - Resident - [...] Maxillofacial Surgery Progress Note 08/28/2025 Carlito Perez [facility] Day: 11 Subjective HISTORY OF PRESENT [...] Units Date/Time Cecelia auris Surveillance by PCR [[id number]] (Normal) Collected: 08/19/252018 Order Status: Completed Specimen: Swab from Axilla and Groin Updated: 08/21/25 1033 Cecelia auris PCR Result Not Detected Narrative: This PCR assay was developed and its performance characteristics determined by [facility] as appropriate for clinical purposes. This assay has not been cleared or approved bythe FDA, but is performed in a CLIA regulated laboratory that is qualified to perform high-complexity testing. Multi Drug Resistance Test [[id number]] Collected: 08/19/252018 Order Status: Completed Specimen: Swab from Nares and Nini Rectal Updated: 08/21/25 0733 Culture No growth at day 1 Narrative: This test was developed and its performance characteristics determined by the [facility]. Although the media is FDA-approved, it is not FDA-approved for all specimen types submitted. The FDA has determined that such clearance or approval is not necessary. This test is used for surveillance purposes. It should not be regarded as investigational or for research. The [facility] is certified under [...] with patient at bedside Marcelino Laurent DMD [facility] comp field case manager PGY-1 Pager #: [phone] Cosigned by Alvaro Adrian DMD, MD at [...] supporting documentation sent to Jeff via email: [email or web address] * Care Plan - Don Dolan RN [...] Note Carlito Perez 54 y.o. male CSN: [id number] Admission: 08/19/2025 5:29 AM Primary Problem: Floor of mouth squamous cell carcinoma Anticipated Discharge Date: 08/30/25 Has Discharge Plans Changed? Medicare Second Notice: Housing Circumstances: Housing Circumstances Action Taken: Medically Ready for Discharge: Additional Comments TF order sent to Jean[facility] via merly Marybel has been informed via secure chat. [...] anticipates readiness for discharge on 08/30/25 In??MARIANELA aBss, vessel manager * Procedures - Senia Cross PA [...] from the original note were not included. [address] Suctioning Your Tracheostomy Important Call 911 right [...] tube. Move the catheter tip in a atqasuk as you pull the catheter out. ? [...] thoroughly. Last Reviewed Date: 2025 00:00:00 ?? 8310-1003 [employer]. All rights reserved. This information is not intended as a substitute for professional medical care. Always follow your healthcare professional's instructions. * Rachell Lopez - Bob Masterson RN - 08/26/2025 10:29 AM EDT Images from the original note were not included. [address]171 Preventing a Surgical Site Infection A risk [...] of infection. ? Controlled body temperature. A ffoce-tubo-lrinrl temperature during or after surgery prevents oxygen [...] and water or with an alcohol-based hand steel checker before and after caring for you. Don?t [...] away. Last Reviewed Date: 2024 00:00:00 ?? 7711-3482 [employer]. All rights reserved. This information is not intended as a substitute for professional medical care. Always follow your healthcare professional's instructions. * Rachell KhannaRUPALI - Bob Masterson RN - 08/26/2025 10:29 AM EDT Images from the original note were not included. 39137 Tracheostomy Care You need to take care [...] breathing Last Reviewed Date: 2025 00:00:00 ?? 1156-4117 [employer]. All rights reserved. This information is not intended as a substitute for professional medical care. Always follow your healthcare professional's instructions. * [facility] - Bob Masterson RN - 08/26/2025 [...] a high-fiber diet or laxatives. * Rachell LlamasRUPALI - Bob Masterson RN - 08/26/2025 10:29 AM EDT Images from the original note were not included. 56013 Negative Pressure Wound Therapy Negative pressure wound [...] device. Last Reviewed Date: 2024 00:00:00 ?? 8845-3204 [employer]. All rights reserved. This information is not [...] Neck and shoulder stiffness or pain ? retirement swelling (lymphedema) which can be reduced through [...] call the doctor? Call the clinic at [phone] if you have any of these: ? [...] lips Call 911 or go to the [facility] emergency department if you have any [...] does not seem to beworking properly. 1. Migration Specialist the tube near the skin and hold [...] Date/Time Amount 06/22/09 7 a.m. 20ml * [facility] - Bob Masterson RN - 08/26/2025 10:29 AM EDT Images from the original note were not included. 57674 Surgery for a Mouth or Throat Tumor [...] look Last Reviewed Date: 2024 00:00:00 ?? 1585-4102 [employer]. All rights reserved. This information is not [...] with a towel and dry with a global creative chairman on low setting to avoid burning. At [...] be taking nutrition by feeding tube, the corrections caseworker in the hospital will give you information [...] call the doctor? Call the clinic at [phone] if you have any of these: ? [...] will change at bedside on 08/26 - [id number] mg for 1 month - Recommend 5 [...] Electrolyte Balance Flowsheets (Taken 08/25/2025 1235 by Rosey, Melina, RN) Fluid/Electrolyte Management: electrolyte-binding therapy initiated Goal: [...] & Maxillofacial Surgery Progress Note 08/25/25 Carlito Lepe [facility] Day: 7 Subjective [...] DC with weekend CM Edited by: Marcelino Laurent, CLEM at 08/25/2025 0959 Objective Last Recorded Vitals [...] Intake/Output Summary (Last 24 hours) at 08/25/2025 09 Last data filed at 08/25/2025 0620 Gross [...] Units Date/Time Cecelia auris Surveillance by PCR [[id number]] (Normal) Collected: 08/19/252018 Order Status: Completed Specimen: Swab from Axilla and Groin Updated: 08/21/25 1033 Cecelia auris PCR Result Not Detected Narrative: This PCR assay was developed and its performance characteristics determined by [facility] as appropriate for clinical purposes. This assay has not been cleared or approved bythe FDA, but is performed in a CLIA regulated laboratory that is qualified to perform high-complexity testing. Multi Drug Resistance Test [[id number]] Collected: 08/19/252018 Order Status: Completed Specimen: Swab from Nares and Nini Rectal Updated: 08/21/25 0733 Culture No growth at day 1 Narrative: This test was developed and its performance characteristics determined by the [facility]. Although the media is FDA-approved, it is not FDA-approved for all specimen types submitted. The FDA has determined that such clearance or approval is not necessary. This test is used for surveillance purposes. It should not be regarded as investigational or for research. The [facility] is certified under [...] with patient at bedside Marcelino Laurent DMD [facility] comp field case manager PGY-1 Pager #: [phone] Cosigned by Alvaro Adrian DMD, MD at [...] will change at bedside on 08/26 - [id number] mg for 1 month - Recommend 5 [...] MD Plastic & Reconstructive Surgery PGY-4 Pager [phone] Cosigned by Marvin Santana MD at 08/26/2025 8:10 AM EDT Associated attestation - Marvin Santana MD - 08/26/2025 8:10 AM EDT I discussed the case with the resident/fellow and agree with the findings and plan as documented. * Care Plan - PerezCkny Sandy - 08/24/2025 8:08 PM EDT Problem: [...] Manage VTE (Venous Thromboembolism) Risk Flowsheets (Taken 08/24/20250 by Hailey Lund CNA) VTE Prevention/Management: left [...] provided Taken 08/24/2025 1303 by Kathy Lund marble ceiling installer Interventions: medication (see MAR) Taken 08/23/20252134 by [...] Prevent or Manage Infection Flowsheets Taken 08/24/2025 07 by Kathy Lund, RN Isolation Precautions: precautions [...] encouraged Intervention: Promote Injury-Free Environment Flowsheets (Taken 08/24/2025699 by Kathy Lund RN) Safety Promotion/Fall Prevention: [...] Note Carlito Perez 54 y.o. male CSN: [id number] Admission: 08/19/2025 5:29 AM Primary Problem: Floor of mouth squamous cell carcinoma Anticipated Discharge Date: 08/26/25 Referral for trach supplies and a RW placed in careport and sent to [facility]. Trach supply order will be reviewed on Tuesday08/26/25. Contact information for primary CM included in referral for [facility] to follow up on 08/26/25. Additional Comments Halie Ledezma RN * Progress Notes - Marcelino Laurent DMD - 08/24/2025 10:27 AM EDT Images from the original note were not included. Oral & Maxillofacial Surgery Progress Note 08/24/25 Carlito Perez Hospital Day: 6 Subjective HISTORY OF PRESENT [...] Units Date/Time Cecelia auris Surveillance by PCR [[id number]] (Normal) Collected: 08/19/252018 Order Status: Completed Specimen: Swab from Axilla and Groin Updated: 08/21/25 1033 Cecelia auris PCR Result Not Detected Narrative: This PCR assay was developed and its performance characteristics determined by [facility] as appropriate for clinical purposes. This assay has not been cleared or approved bythe FDA, but is performed in a CLIA regulated laboratory that is qualified to perform high-complexity testing. Multi Drug Resistance Test [[id number]] Collected: 08/19/252018 Order Status: Completed Specimen: Swab from Nares and Nini Rectal Updated: 08/21/25 0733 Culture No growth at day 1 Narrative: This test was developed and its performance characteristics determined by the [facility]. Although the media is FDA-approved, it is not FDA-approved for all specimen types submitted. The FDA has determined that such clearance or approval is not necessary. This test is used for surveillance purposes. It should not be regarded as investigational or for research. The [facility] Clinical Microbiology Laboratory is certified under [...] with patient at bedside Marcelino Laurent DMD [facility] comp field case manager PGY-1 Pager #: [phone] Cosigned by Alvaro Adrian DMD, MD at [...] will change at bedside on 08/26 - vpr387 mg for 1 month - Recommend 5 [...] Note Carlito Perez 54 y.o. male CSN: [id number] Room/Bed 128/128A Nutrition evaluation type: follow-up Reason [...] Risk Score: 41 Most Recent BM Date: (TECH WRITER) Skin: wound vac, right pretibial surgical wound, [...] CHLORIDE mmol/L 102 102 101 CO2 mmol/L 27 23 BUN mg/dL 15 15 16 [...] 4 months Estimated Needs: Kcal: 30-35 kcal/kg (7293-9120 kcal/d) Protein: 1.5-1.8 g/kg (131-157 g/d) Based [...] shellfish, penicillan CAD (coronary artery disease) Cancer ([facility]) [id number] Coronary artery calcification Dental disease chipped teeth, jony block for vocal chord damage Fractures clavical surgery GERD (gastroesophageal reflux disease) 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 HLD (hyperlipidemia) HTN (hypertension) Hypothyroidism Reflux gastritis Substance abuse 1988 [2] Past Surgical History: Procedure Laterality Date APPENDECTOMY 1979 CARDIOTHORACIC PROCEDURE stents CAROTID STENT 04/26/2023 COLONOSCOPY 2023 CORONARY STENT PLACEMENT [id number] ORTHOPEDIC SURGERY repair to clavical OTHER SURGICAL [...] EDT Referral for enterals-TF sent to [facility] via [facility], pending final recs from RD. * [...] will change at bedside on 08/26 - [id number] mg for 1 month - Recommend 5 [...] MD Plastic & Reconstructive Surgery PGY-4 Pager [phone] Cosigned by Marvin Santana MD at 08/24/2025 [...] Maxillofacial Surgery Progress Note 08/23/25 Carlito Perez [facility] Day: 5 Subjective HISTORY OF PRESENT [...] Intake/Output Summary (Last 24 hours) at 08/23/2025 05 Last data filed at 08/23/2025 0500 Gross [...] Units Date/Time Cecelia auris Surveillance by PCR [[id number]] (Normal) Collected: 08/19/252018 Order Status: Completed Specimen: Swab from Axilla and Groin Updated: 08/21/25 1033 Cecelia auris PCR Result Not Detected Narrative: This PCR assay was developed and its performance characteristics determined by [facility] as appropriate for clinical purposes. This assay has not been cleared or approved bythe FDA, but is performed in a CLIA regulated laboratory that is qualified to perform high-complexity testing. Multi Drug Resistance Test [[id number]] Collected: 08/19/252018 Order Status: Completed Specimen: Swab from Nares and Nini Rectal Updated: 08/21/25 0733 Culture No growth at day 1 Narrative: This test was developed and its performance characteristics determined by the [facility]. Although the media is FDA-approved, it is not FDA-approved for all specimen types submitted. The FDA has determined that such clearance or approval is not necessary. This test is used for surveillance purposes. It should not be regarded as investigational or for research. The [facility] is certified under [...] with patient at bedside Rusty Melendrez DDS [facility] OMFS, PGY-1 Cosigned by Alvaro Adrian [...] Progress Note Carlito Perez 54 y.o. male [facility]: [id number] Admission: 08/19/2025 5:29 AM Primary Problem: Floor of mouth squamous cell carcinoma Anticipated Discharge Date: 08/27/25 Has Discharge Plans Changed? Medicare Second Notice: Housing Circumstances: Housing Circumstances Action Taken: Medically Ready for Discharge: Additional Comments Referral for PT/OT+SN sent to agencies via [facility]. UPDATE: [facility] [phone] has accepted pt. POC reviewed with primary team. Refer to primary team's note for details. Pt is not medically readyfor discharge. MD anticipates readiness for discharge more than 72 hrs. In??MARIANELA Bass, vessel manager * Progress Notes - Nicole Rodriguez [...] anesthesia, CAD (coronary artery disease), Cancer (CMS/HCC) ([id number]), Coronary artery calcification, Dental disease, Fractures (clavical surgery), GERD (gastroesophageal reflux disease), Hard to intubate, HLD (hyperlipidemia), HTN (hypertension), Hypothyroidism, Reflux gastritis, and Substance abuse (1988). Past Surgical History Patient has a past surgical history that includes Appendectomy (1979); Colonoscopy (2023); Coronarystent placement ([id number]); Other surgical history; Cardiothoracic procedure; orthopedic surgery; Throat surgery; and Carotid stent (04/26/2023). Precautions Right Lower Extremity Weight Bearing Status: Weight Bearing as Tolerated (with CAM boot for ambulation; on AAT - okay to remove for skin inspection, hygiene, and dressing changes per medical TEAM) Medical Precautions: Fall precautions Mobility Orders (Order ID: [id number]) Priority: Routine Interval: Until discontinued Comments: MUST [...] Care Family/Caregiver Present: Yes Family/Caregiver: (Adult Sister) Hoop Maker Helper Machine: Not Applicable Presentation Oxygen Therapy: Supplemental oxygen [...] admission Level of Mobility: Ambulatory- community Mobility Peñuelas: Independent gait without device History of Falls: [...] Mobility Bed Mobility Exam: Scooting/Bridging Level of Peñuelas: Stand-by assist (anteriorly to EOB) Physical/Nonphysical Assist: Set-up required, Supervision, Verbal Cues, Minimal cues, 1 person + 1 person to manage equipment Bed Mobility Exam: Supine to Sit Level of Peñuel[place]: Contact guard (to the left) Physical/Nonphysical Assist: Set-up required, Verbal Cues, Nonverbal cues (demo/gestures), Minimal cues, HOB elevated, 1 person + 1 person to manage equipment Assistive Device: Bed rails Transfers Transfer Exam: Sit to stand Level of Peñuelas: Contact guard Physical/Nonphysical Assist: Set-up required, Verbal Cues, Nonverbal cues (demo/gestures), Minimal cues, 1 person + 1 person to manage equipment Assistive Device: Walker, rolling Transfer Exam: Stand to Sit Level of Peñuelas: Contact guard Physical/Nonphysical Assist: Verbal Cues, Nonverbal [...] inpatient within personal toileting routines. Standardized Assessments [facility] 6-Click Daily Activities Help from Other: Don/Doff Regular Lower Body Clothings: A lot Help From Other: Bathing: Little Help From Other: Toileting: Little Help From Other: Don/Doff Upper Body Clothings: Little Help From Other: Grooming: None Help From Other: Eating Meals: Little (DHT) [facility] 6 Click - Daily Activities Score: Assessment Patient tolerated today's initial evaluation/session well [...] of anesthesia, CAD (coronary artery disease), Cancer ([facility]) ([id number]), Coronary artery calcification, Dental disease, Fractures (clavical surgery), GERD (gastroesophageal reflux disease), Hard to intubate, HLD (hyperlipidemia), HTN (hypertension), Hypothyroidism, Reflux gastritis, and Substance abuse (1988). Past Surgical History Patient has a past surgical history that includes Appendectomy (1979); Colonoscopy (2023); Coronarystent placement ([id number]); Other surgical history; Cardiothoracic procedure; orthopedic surgery; [...] Care Family/Caregiver Present: Yes Family/Caregiver: (Adult Sister) Hoop Maker Helper Machine: Not Applicable Presentation Oxygen Therapy: Supplemental oxygen [...] admission Level of Mobility: Ambulatory- community Mobility Peñuelas: Independent gait without device History of Falls: [...] Mobility Bed Mobility Exam: Scooting/Bridging Level of Peñuelas: Stand-by assist (anteriorly to EOB) Physical/Nonphysical Assist: Set-up required, Supervision, Verbal Cues, Minimal cues, 1 person + 1 person to manage equipment Bed Mobility Exam: Supine to Sit Level of Peñuelas: Contact guard (to the left) Physical/Nonphysical Assist: Set-up required, Verbal Cues, Nonverbal cues (demo/gestures), Minimal cues, HOB elevated, 1 person + 1 person to manage equipment Transfers Transfer Exam: Sit to stand Level of Peñuelas: Contact guard Physical/Nonphysical Assist: Set-up required, Verbal Cues, Nonverbal cues (demo/gestures), Minimal cues, 1 person + 1 person to manage equipment Assistive Device: Walker, rolling Transfer Exam: Stand to Sit Level of Peñuelas: Contact guard Physical/Nonphysical Assist: Verbal Cues, Nonverbal [...] Level of Assistance: Contact guard Standardized Assessments [facility] 6-Clicks Mobility Assessment Difficulty patient has [...] 3-5 steps with a railing?: A little [facility] 6-Clicks Mobility Assessment Total : 21 [...] of Bed (HOB) Positioning: HOB elevated Taken 08/21/2025 173 by Juanita Vergara RN [...] RN Body Position: turned right Taken 08/21/2025 1734 by Juanita Vergara RN Skin Protection: transparent [...] Intervention: Optimize Oxygenation and Ventilation Flowsheets Taken 08/22/2025599 by Miya Al RN Activity [...] will change at bedside on 08/26 - [id number] mg for 1 month - Recommend 5 [...] MD Plastic & Reconstructive Surgery PGY-4 Pager [phone] Cosigned by Marvin Santana MD at 08/22/2025 [...] & Maxillofacial Surgery Progress Note 08/22/25 Carlito Roberth [facility] Day: 4 Subjective HISTORY OF PRESENT [...] removed by plastics, suctioned multiple times pain / requiring q4 pain control Edited by: Marcelino Laurent, DMD at 08/22/2025 0531 Objective Last Recorded [...] Units Date/Time Cecelia auris Surveillance by PCR [[id number]] (Normal) Collected: 08/19/252018 Order Status: Completed Specimen: Swab from Axilla and Groin Updated: 08/21/25 1033 Cecelia auris PCR Result Not Detected Narrative: This PCR assay was developed and its performance characteristics determined by [facility] as appropriate for clinical purposes. This assay has not been cleared or approved bythe FDA, but is performed in a CLIA regulated laboratory that is qualified to perform high-complexity testing. Multi Drug Resistance Test [[id number]] Collected: 08/19/252018 Order Status: Completed Specimen: Swab from Nares and Nini Rectal Updated: 08/21/25 0733 Culture No growth at day 1 Narrative: This test was developed and its performance characteristics determined by the [facility]. Although the media is FDA-approved, it is not FDA-approved for all specimen types submitted. The FDA has determined that such clearance or approval is not necessary. This test is used for surveillance purposes. It should not be regarded as investigational or for research. The [facility] is certified under [...] Care Review Outcome: Ongoing, Progressing Flowsheets Taken 08/21/202506/2025 by Juanita Vergara RN Progress: improving Outcome [...] Fluid and Electrolyte Balance Flowsheets (Taken 08/21/2025 1734) Fluid/Electrolyte Management: fluids provided fluids adjusted Goal: [...] on file Utilities: Not At Risk (08/21/2025) [facility] Utilities Threatened with loss of utilities: [...] Surgery ICU Progress Note 08/21/25 Carlito Perez [facility] Day: 3 Subjective HISTORY OF PRESENT [...] Value Units Date/Time Multi Drug Resistance Test [[id number]] Collected: 08/19/252018 Order Status: Sent Specimen: Swab from Nares and Nini Rectal Updated: 08/19/252029 Cecelia auris Surveillance by PCR [[id number]] Collected: 08/19/252018 Order Status: Sent Specimen: Swab [...] Trach care per OMFS #Tracheostomy - Contact labor relations manager PGY-1 for acute trach concerns - 6-0 [...] #Hypothyroidism - Restarted Levothyroxine Marcelino Laurent DMD [facility] comp field case manager PGY-1 Pager #: [phone] [1] acetaminophen, 1,000 mg, Nasogastric, q6h JOVANNI [...] Monitor and Manage Urinary Retention Flowsheets (Taken 08/21/2025346) Urinary Elimination Promotion: bladder volume assessed by [...] from the original note were not included. EDUCATIONAL PSYCHOLOGY PROFESSOR Flap Check 08/21/2025 PROCEDURE: Right osteocutaneous free [...] resident Galina Renteria DMD, MD Vascular Surgery [facility] Pager ID [phone] * Significant Event - Galina Renteria MD - 08/20/2025 8:01 PM EDT EDUCATIONAL PSYCHOLOGY PROFESSOR Flap Check 08/20/2025 PROCEDURE: Right osteocutaneous free [...] resident Galina Renteria DMD, MD Vascular Surgery [place] Pager ID [phone] * Care Plan - Lizy Amador - [...] Note Carlito Perez 54 y.o. male CSN: [id number] Admission: 08/19/2025 5:29 AM Primary Problem: Floor of mouth squamous cell carcinoma Quiller Machine Fixer reviewed chart and spoke with patient's spouse to complete this Initial Case Management Assessment. Patient intubated and CM unable to obtain SDOH information. PCP: Christina Arteaga APRN Emergency Contact: Extended Emergency Contact Information Primary Emergency Contact: Elicia Perez Address[address] [place] Relation: Spouse Insurance: Primary Visit Coverage Payer Plan Sponsor Code Group Number Group Name [facility] Primary Visit Coverage Subscriber Subscriber ID Subscriber Name Subscriber SSN Subscriber Address [id number] Carlito Perez [id number] [address] [place] [address] Patient information: Primary Caregiver: Self Accompanied by/Relationship: spouse Support System: Immediate family Daily Living Activities: Functional Status: Independent Living Arrangements: Spouse/Significant other Type of Residence: Private residence, Single Level [address] [place] [address] Current DME: Equipment Currently Used at Home: none Current DME Provider: has a cane and crutches at [facility] if needed. Income Information: Income Source: Employed Income/Expense Information: Income meets expenses Current Resources Utilized: None Housing Circumstances-Z Codes: Housing Circumstances (select all that apply): None Applicable Anticipated Discharge Date: 08/26 Patient's Discharge Goal: tbd Assistance Available at Discharge: 06/06 per family. His sister is an RN, son is a depot manager and he has a cousin who is an RN. Per spouse they are all able/willing to assist patient when dc home for hospital. Spouse also able to assist however she works many hours at her job. Discharge Transport: family Follow Up Transport: family Home Health / Home Infusion / Outpatient Dialysis Services: Current DME Provider: has a cane and crutches at [facility] if needed. Living Will/Advance Directive/Power of Fagoter /Guardian: has copies of LW and POA . CM suggested she present these to a invoice classification clerk who may be able to scan into his epic/my chart. Additional Comments: Quiller Machine Fixer provided introduction of CM and information on CM role. Confirmed demographics in EPICare accurate. requested communication go to [email or web address] Jackeline Rodriguez RN * Progress Notes - [...] Height: O2 Delivery Method: Humidified trach collar IA SUP: 10 cm H20 Insp Time (sec): 1.4 sec FiO2 (%): 28 % S RR: 14 IA SUP: 10 cm H20 I O Shift [...] for mandibular reconstruction -Multimodal pain control -D/c fortunato D/c A-line -OOBTC -Bed flexed -CAM boot [...] Surgery ICU Progress Note 08/20/25 Carlito Perez [facility] Day: 2 Subjective HISTORY OF PRESENT ILLNESS Carlito Perez is a 54 y.o. male with PMH of CAD (4 stents, 2022), HLD, hypothyroidism, who presents with a 3+ year history of left sided tongue/floor of mouth lesion now biopsy proven SCCa. Procedure(s): 1) Left segmental mandibulectomy, left selective neck dissection, extraction of all remaining teeth, partial left glossectomy, tracheostomy creation with [facility] on 08/19/2025 2) Fibula free flap reconstruction with Plastic surgery on 08/19/2025 24 hr interval events : Taken to OR for aforementioned procedures 08/19. This is ICU day 1. Trach remains in place with [facility] . NAEO. Pt seen and evaluated at bedside by [facility] surgery residents. NPO.Tolerating pain on PO meds [...] Value Units Date/Time Multi Drug Resistance Test [[id number]] Collected: 08/19/252018 Order Status: Sent Specimen: Swab from Nares and Nini Rectal Updated: 08/19/252029 Cecelia auris Surveillance by PCR [[id number]] Collected: 08/19/252018 Order Status: Sent Specimen: Swab [...] #Hypothyroidism - Restarted Levothyroxine Rusty Melendrez DDS [facility] OMFS, PGY-1 [1] acetaminophen, 650 mg, [...] 5:32 AM EDT Free Flap Check Note [@0897] Carlito Perez is a 54 y.o. male [...] Care Review Outcome: Ongoing, Progressing Flowsheets (Taken 08/19/20252242) Progress: no change Plan of Care Reviewed [...] encouragement * Significant Event - Mike Kraft, DO - 08/19/2025 9:33 PM EDT Free [...] from the original note were not included. [facility] Department of Surgery Division of Plastic and Reconstructive Surgery Post-Operative Check Name: Carlito Perez Attending Provider: Marvin Santana MD Age/Sex: 54 y.o. male Unit: [place] [address] ICU Date & Time of Admission: 08/19/2025 5:29 AM [facility] Right osteocutaneous free fibula for [...] 1 Output by Drain (mL) 08/17/25699 - 08/17/25185808/17/251899 - 08/18/25 0659 08/18/25699 - 08/18/25 18508/18/251899 - 08/19/25 0659 08/19/25699 - 08/19/25 18508/19/251899 - 08/19/25 2122 Closed/Suction [...] Note Carlito Perez 54 y.o. male CSN: [id number] Room/Bed OR/- Nutrition evaluation type: assessment Reason [...] (98.2 ??F) Oxygen Therapy: None (Room air) [place] Coma Scale Score: 15 Dex Scale Score: [...] 4 months Estimated Needs: Kcal: 30-35 kcal/kg (5319-1792 kcal/d) Protein: 1.5-1.8 g/kg (131-157 g/d) Based [...] shellfish, penicillan CAD (coronary artery disease) Cancer ([facility]) [id number] Coronary artery calcification Dental disease chipped teeth, jony block for vocal chord damage Fractures clavical surgery GERD (gastroesophageal reflux disease) 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 HLD (hyperlipidemia) HTN (hypertension) Hypothyroidism Reflux gastritis Substance abuse 1988 [2] Past Surgical History: Procedure Laterality Date APPENDECTOMY 1979 CARDIOTHORACIC PROCEDURE stents CAROTID STENT 04/26/2023 COLONOSCOPY 2023 CORONARY STENT PLACEMENT [id number] ORTHOPEDIC SURGERY repair to clavical OTHER SURGICAL [...] AM EDT Operative Note Date: 08/19/25 Location: [place] Name: Saravanan Perez, : 1970, Diagnoses: Pre-op Diagnosis Floor of mouth squamous cell carcinoma Post-op Diagnosis Floor of mouth squamous cell carcinoma Procedure(s): Tracheotomy, partial glossectomy left anterior tongue, left segmental mandibulectomy, left selective neck dissection, extraction of #2,3,5,6,7,8,9,10,11,12,13,15,28,29,31, Direct Laryngoscopy with Biopsy Attending Surgeon(s): Panel 1: * Marvin Santana - Primary Panel 2: * Alvaro Adrian - Primary Body Bumper(s): Panel 1: * Roma Rolon MD - [...] W/O ANGLE 2MM THCK - SNA - [id number] Used, Not Implanted NA Plate PLATE TI PSPC MATRIXMAND ANG RECON 7X23H/2MM LT - SNA - [id number] Implanted NA Screw SCREW 2.0MM MATRIXMANDIBLE ST 8MM - SNA - [id number] Used, Not Implanted NA Screw SCREW 2.0MM MATRI[address]IBLE LOCK ST 8MM - SN/A - [id number] Implanted N/A SCREW 2.0MM [address] LOCK ST 10MM - SN/A - [id number] Implanted N/A SCREW 2.[address]MM [address] LOCK [address] 10MM - SN/A - [id number] Implanted N/A SCREW 2.0MM [address] LOCK [address] 14MM - SN/A - [id number] Implanted N/A Specimen: Specimens ID Source Frozen? [...] AM EDT Operative Note Date: 08/19/25 Location: [place] Name: Saravanan Perez, : 1970, Diagnoses: [...] Panel 1: * Marvin Santana - Primary Body Bumper(s): Panel 1: * Roma Rolon MD - [...] W/O ANGLE 2MM THCK - SNA - [id number] Used, Not Implanted NA Plate PLATE TI PSPC MATRIXMAND ANG RECON 7X23H/2MM LT - SNA - [id number] Implanted NA Screw SCREW 2.0MM [address]RI[address] ST 8MM - SNA - [id number] Used, Not Implanted NA Screw SCREW 2.[address]MM [address] LOCK ST 8MM - SN/A - [id number] Implanted N/A SCREW 2.0MM MATRIXMANDIBLE LOCK ST 10MM - SN/A - [id number] Implanted N/A SCREW 2.[address]MM [address] LOCK [address] 10MM - SN/A - [id number] Implanted N/A SCREW 2.0MM [address] LOCK [address] 14MM - SN/A - [id number] Implanted N/A Specimen: Specimens ID Source Frozen? [...] for reconstruction Free fibula flap secured to manzanita mandible with a reconstruction plate Complex intraoral [...] we had good bony approximation to the manzanita mandible. Under direct visualization we are able to secure 4 holes across the osteotomy sites to the manzanita mandible with bicortical screws. In this fashion were able to reconstruct the right brandyn mandible with a reconstruction plate/implant. We also then were able to drape the pedicle appropriately down into the anastomosis site. Under loupe magnification, we then proceeded to reapproximate the artery end-to-end using 8-0 nylonwithout any issues. The veins were then coupled using a 3.5 mm correction worker x2. The clamps were carefully removed demonstrating [...] 08/19/2025 8:53 AM EDT Date: 08/19/25 Location: [place] Name: Saravanan Lepe Chris, : 1970, Diagnoses: Pre-op Diagnosis Floor of mouth squamous cell carcinoma Post-op Diagnosis Floor of mouth squamous cell carcinoma Procedure(s): Segmental mandibulectomy, left selective neck dissection, extraction of all remaining teeth, partial left glossectomy, tracheostomy, Direct Laryngoscopy with biopsy Attending Surgeon(s): Panel 1: * Marvin Santana R - Primary Panel 2: * Alvaro Adrian - Primary Body Bumper(s): Panel 1: * Roma Rolon MD - [...] W/O ANGLE 2MM THCK - SNA - [id number] Used, Not Implanted NA Plate PLATE TI PSPC MATRIXMAND ANG RECON 7X23H/2MM LT - SNA - [id number] Implanted NA Specimen: Specimens ID Source Frozen? [...] from the original note were not included. [facility] Department of Surgery Division of Plastic and Reconstructive Surgery Plastic Surgery Clinic Note Chief Complaint: Mandibular reconstruction HISTORY OF PRESENT ILLNESS Carlito Perez is a 54 y.o. 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 Santana after Dr. Adrian [facility] lesion excision. He was seen in consultation [...] shellfish, penicillan CAD (coronary artery disease) Cancer ([facility]) [id number] Coronary artery calcification Dental disease chipped teeth, [...] STENT 04/26/2023 COLONOSCOPY 2023 CORONARY STENT PLACEMENT [id number] ORTHOPEDIC SURGERY repair to clavical OTHER SURGICAL [...] with an associated skin paddle in his manzanita blood supply. This will then be harvested [...] - Encouraged nicotine minimization - To see yarn man today. - All questions regarding pre-op, intra-op, [...] shellfish, penicillan CAD (coronary artery disease) Cancer (CMS/HCC) [id number] Coronary artery calcification Dental disease chipped teeth, [...] STENT 04/26/2023 COLONOSCOPY 2023 CORONARY STENT PLACEMENT [id number] ORTHOPEDIC SURGERY repair to clavical OTHER SURGICAL [...] 10/08/2025 9:15 AM EST Office Visit [facility] [address] [place] [address] Marvin Santana MD [address] [address] 10/08/2025 10:30 AM EST Office Visit [facility] comp field case manager [facility] [address] [place] [address] Alvaro Adrian DMD, MD [address] [address] Scheduled Referrals Name Type Priority Associated Diagnoses Order Schedule Discharge Ambulatory referral to NON Home Health Outpatient Referral Routine Floor of mouth squamous cell carcinoma 1 Occurrences starting 08/22/2025 until 02/23/2027 Discharge Ambulatory referral to NON Home Health Outpatient Referral Routine Floor of mouth [...] OXYGEN THERAPY Routine 08/28/2025 8:00 PM EDT IA SPLIT GRFT TRUNK,ARM,LEG <100 SQCM 08/28/2025 4:20 PM EDT 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 Needs Dermatome, skin graft mesher, Artiss 4 cc and sprayer, xeroform, telfa, epinephrine/saline, tegaderm, 4-0 vicryl rapide, adaptic, silver dermanet IA SPLIT GRFT,TRUNK,ARM,LEG EA 100 SQCM 08/28/2025 4:20 [...] 56 AM EDT MAGNESIUM, PLASMA Routine 08/20/2025 5: 56 AM EDT BASIC METABOLIC PANEL, PLASMA Routine [...] PANEL, ARTERIAL STAT 08/19/2025 9:07 AM EDT TYPE AND SCREEN Routine 08/19/2025 7:05 AM EDT documented in this encounter Results * Phosphorus, Plasma (08/30/2025 3:00 AM EDT) Phosphorus, Plasma 4.2 2.5 - 4.5 mg/dL 08/30/2025 3:39 AM EDT [facility] Blood Venous blood specimen / Unknown Venipuncture / Unknown 08/30/2025 3:00 AM EDT 08/30/2025 3:11 AM EDT us Sin Dilan Singletary DMD, MD LAB BLOOD ORDERABLES Melida l Result Performing Organization Address City/[facility]/ZIP Co de Phone Number [facility] [address] [place] [address] * Magnesium, Plasma (08/30/2025 3:00 AM EDT) Magnesium, Plasma 2.4 1.9 - 2.4 mg/dL 08/30/2025 3:39 AM EDT [facility] Blood Venous blood specimen / Unknown Venipuncture / Unknown 08/30/2025 3:00 AM EDT 08/30/2025 3:11 AM EDT us Sin Min Nancy Singletary DMD, MD LAB BLOOD ORDERABLES Melida l Result Performing Organization Address City/[facility]/ZIP Co de Phone Number [facility] [address] [place] [address] * (ABNORMAL) CBC W/O Differential (08/30/2025 3:00 AM EDT) WBC Count 10.23 3.70 - 10.30 10*3/uL LAB HEMATOLOGY METHOD 08/30/2025 3:18 AM EDT [facility] RBC Count 3.18(L) 4.60 - 6.10 10*6/uL LAB HEMATOLOGY METHOD 08/30/2025 3:18 AM EDT [facility] HGB 9.9(L) 13.7 - 17.5 g/dL LAB HEMATOLOGY METHOD 08/30/2025 3:18 AM EDT [facility] HCT 30.3(L) 40.0 - 51.0 % LAB HEMATOLOGY METHOD 08/30/2025 3:18 AM EDT [facility] Platelet Count 550(H) 155 - 369 10*3/uL LAB HEMATOLOGY METHOD 08/30/2025 3:18 AM EDT [facility] MCV 95 79 - 98 fL LAB HEMATOLOGY METHOD 08/30/2025 3:18 AM EDT [facility] MCH 31.1 26.0 - 32.0 pg LAB HEMATOLOGY METHOD 08/30/2025 3:18 AM EDT [facility] MCHC 32.7 30.7 - 35.5 g/dL LAB HEMATOLOGY METHOD 08/30/2025 3:18 AM EDT [facility] RDW 13.2 11.5 - 14.5 % LAB HEMATOLOGY METHOD 08/30/2025 3:18 AM EDT [facility] MPV 8.7(L) 8.8 - 12.5 fL LAB HEMATOLOGY METHOD 08/30/2025 3:18 AM EDT [facility] nRBC 0.0 <=0.0 per 100 WBCs LAB HEMATOLOGY METHOD 08/30/2025 3:18 AM EDT [facility] Blood Venous blood specimen / Unknown Venipuncture / Unknown 08/30/2025 3:00 AM EDT 08/30/2025 3:11 AM EDT us Sin Min M Hayder [place] MD LAB BLOOD ORDERABLES Melida l Result [facility] [address] [place] [address] * (ABNORMAL) Basic Metabolic Panel, Plasma (08/30/2025 3:00 AM EDT) Glucose, Plasma 113(H) 74 - 99 mg/dL 08/30/2025 3:39 AM EDT [facility] BUN, Plasma 20 7 - 21 mg/dL 08/30/2025 3:39 AM EDT [facility] Creatinine, Plasma 0.68(L) 0.70 - 1.20 mg/dL 08/30/2025 3:39 AM EDT [facility] BUN/Creatinine Ratio 29 08/30/2025 3:39 AM EDT [facility] Sodium, Plasma 137 136 - 145 mmol/L 08/30/2025 3:39 AM EDT [facility] Potassium, Plasma 4.4 3.6 - 4.9 mmol/L 08/30/2025 3:39 AM EDT [facility] Chloride, Plasma 100 97 - 107 mmol/L 08/30/2025 3:39 AM EDT [facility] CO2, Plasma 28 22 - 29 mmol/L 08/30/2025 3:39 AM EDT [facility] Anion Gap 9 6 - 16 mmol/L 08/30/2025 3:39 AM EDT [facility] Total Calcium, Plasma 9.2 8.9 - 10.2 mg/dL 08/30/2025 3:39 AM EDT [facility] eGFRcr 111.8 mL/min/1.7 3m*2 08/30/2025 3:39 AM EDT [facility] Comment:Reported eGFRcr in m L/min/1.73m2 is based the CKD-EPI 2020 equation that does not use a race coefficient. Blood Venous blood specimen / Unknown Venipuncture / Unknown 08/30/2025 3:00 AM EDT 08/30/2025 3:11 AM EDT us Sin Min Nancy Singletary DMD, MD LAB BLOOD ORDERABLES Melida l Result Performing Organization Address [facility] Co de Phone Number [facility] [address] [place] [address] * Phosphorus, Plasma (08/29/2025 2:37 AM EDT) Phosphorus, Plasma 4.1 2.5 - 4.5 mg/dL 08/29/2025 3:13 AM EDT [facility] Blood Venous blood specimen / Unknown Venipuncture / Unknown 08/29/2025 2:37 AM EDT 08/29/2025 2:44 AM EDT us Sin Min Nancy Singletary DMD, MD LAB BLOOD ORDERABLES Melida l Result Performing Organization Address City/[facility]/ZIP Co de Phone Number [facility] [address] [place] [address] * Magnesium, Plasma (08/29/2025 2:37 AM EDT) Magnesium, Plasma 2.2 1.9 - 2.4 mg/dL 08/29/2025 3:13 AM EDT [facility] Blood Venous blood specimen / Unknown Venipuncture / Unknown 08/29/2025 2:37 AM EDT 08/29/2025 2:44 AM EDT Sin Dilan M Hayder [place] MD LAB BLOOD ORDERABLES Melida l Result [facility] [address] [place] [address] * (ABNORMAL) CBC W/O Differential (08/29/2025 2:37 AM EDT) WBC Count 11.08(H) 3.70 - 10.30 10*3/uL LAB HEMATOLOGY METHOD 08/29/2025 2:57 AM EDT [facility] RBC Count 3.09(L) 4.60 - 6.10 10*6/uL LAB HEMATOLOGY METHOD 08/29/2025 2:57 AM EDT [facility] HGB 9.6(L) 13.7 - 17.5 g/dL LAB HEMATOLOGY METHOD 08/29/2025 2:57 AM EDT [facility] HCT 29.0(L) 40.0 - 51.0 % LAB HEMATOLOGY METHOD 08/29/2025 2:57 AM EDT [facility] Platelet Count 547(H) 155 - 369 10*3/uL LAB HEMATOLOGY METHOD 08/29/2025 2:57 AM EDT [facility] MCV 94 79 - 98 fL LAB HEMATOLOGY METHOD 08/29/2025 2:57 AM EDT [facility] MCH 31.1 26.0 - 32.0 pg LAB HEMATOLOGY METHOD 08/29/2025 2:57 AM EDT [facility] MCHC 33.1 30.7 - 35.5 g/dL LAB HEMATOLOGY METHOD 08/29/2025 2:57 AM EDT [facility] RDW 13.1 11.5 - 14.5 % LAB HEMATOLOGY METHOD 08/29/2025 2:57 AM EDT [facility] MPV 8.6(L) 8.8 - 12.5 fL LAB HEMATOLOGY METHOD 08/29/2025 2:57 AM EDT [facility] nRBC 0.0 <=0.0 per 100 WBCs LAB HEMATOLOGY METHOD 08/29/2025 2:57 AM EDT [facility] Blood Venous blood specimen / Unknown Venipuncture / Unknown 08/29/2025 2:37 AM EDT 08/29/2025 2:44 AM EDT us Sin Min M Hayder [place] MD LAB BLOOD ORDERABLES Melida l Result [facility] [address] [place] [address] * (ABNORMAL) Basic Metabolic Panel, Plasma (08/29/2025 2:37 AM EDT) Glucose, Plasma 110(H) 74 - 99 mg/dL 08/29/2025 3:13 AM EDT [facility] BUN, Plasma 19 7 - 21 mg/dL 08/29/2025 3:13 AM EDT [facility] Creatinine, Plasma 0.72 0.70 - 1.20 mg/dL 08/29/2025 3:13 AM EDT [facility] BUN/Creatinine Ratio 26 08/29/2025 3:13 AM EDT [facility] Sodium, Plasma 138 136 - 145 mmol/L 08/29/2025 3:13 AM EDT [facility] Potassium, Plasma 3.8 3.6 - 4.9 mmol/L 08/29/2025 3:13 AM EDT [facility] Chloride, Plasma 100 97 - 107 mmol/L 08/29/2025 3:13 AM EDT [facility] CO2, Plasma 25 22 - 29 mmol/L 08/29/2025 3:13 AM EDT [facility] Anion Gap 13 6 - 16 mmol/L 08/29/2025 3:13 AM EDT [facility] Total Calcium, Plasma 9.0 8.9 - 10.2 mg/dL 08/29/2025 3:13 AM EDT [facility] eGFRcr 109.9 mL/min/1.7 3m*2 08/29/2025 3:13 AM EDT [facility] Comment:Reported eGFRcr in m L/min/1.73m2 is based the CKD-EPI 2020 equation that does not use a race coefficient. Blood Venous blood specimen / Unknown Venipuncture / Unknown 08/29/2025 2:37 AM EDT 08/29/2025 2:44 AM EDT us Sin Dilan Singletary DMD, MD LAB BLOOD ORDERABLES Melida l Result Performing Organization Address City/[facility]/ZIP Co de Phone Number [facility] [address] [place] [address] * (ABNORMAL) POCT glucose meter (08/28/2025 5:41 [...] Comment 08/28/2025 5:42 AM EDT [facility] LAB Floorhand ID Ralph MckoyDrewLavonne Hernandez 08/28/2025 5:42 AM EDT [facility] LAB Device ID [id number] 08/28/2025 5:42 AM EDT [facility] Specimen Type POC Capillary 08/28/2025 5:42 AM EDT [facility] Blood Capillary blood specimen / Unknown 08/28/2025 5:41 AM EDT 08/28/2025 5:42 AM EDT us Alvaro Adrian DMD, MD LAB POINT OF CA RE TEST DOCKED DEVICE UNSOLICITED RESULTS Final Result Performing Organization Address City/[facility]/ZIP Co de Phone Number [facility] [address] [place] [address] * Phosphorus, Plasma (08/28/2025 3:54 AM EDT) Phosphorus, Plasma 4.3 2.5 - 4.5 mg/dL 08/28/2025 4:29 AM EDT [facility] Blood Venous blood specimen / Unknown Venipuncture / Unknown 08/28/2025 3:54 AM EDT 08/28/2025 3:59 AM EDT us Sin Min Nancy Singletary DMD, MD LAB BLOOD ORDERABLES Melida l Result Performing Organization Address [facility]/ZIP Co de Phone Number [facility] [address] [place] [address] * Magnesium, Plasma (08/28/2025 3:54 AM EDT) Magnesium, Plasma 2.2 1.9 - 2.4 mg/dL 08/28/2025 4:29 AM EDT [facility] Blood Venous blood specimen / Unknown Venipuncture / Unknown 08/28/2025 3:54 AM EDT 08/28/2025 3:59 AM EDT us Sin Min Nancy Singletary DMD, MD LAB BLOOD ORDERABLES Melida l Result Performing Organization Address [facility] de Phone Number [facility] [address] [place] [id number] * (ABNORMAL) CBC W/O Differential (08/28/2025 3:54 AM EDT) WBC Count 10.56(H) 3.70 - 10.30 10*3/uL LAB HEMATOLOGY METHOD 08/28/2025 4:07 AM EDT [facility] RBC Count 3.08(L) 4.60 - 6.10 10*6/uL LAB HEMATOLOGY METHOD 08/28/2025 4:07 AM EDT [facility] HGB 9.5(L) 13.7 - 17.5 g/dL LAB HEMATOLOGY METHOD 08/28/2025 4:07 AM EDT [facility] HCT 28.8(L) 40.0 - 51.0 % LAB HEMATOLOGY METHOD 08/28/2025 4:07 AM EDT [facility] Platelet Count 552(H) 155 - 369 10*3/uL LAB HEMATOLOGY METHOD 08/28/2025 4:07 AM EDT [facility] MCV 94 79 - 98 fL LAB HEMATOLOGY METHOD 08/28/2025 4:07 AM EDT [facility] MCH 30.8 26.0 - 32.0 pg LAB HEMATOLOGY METHOD 08/28/2025 4:07 AM EDT [facility] MCHC 33.0 30.7 - 35.5 g/dL LAB HEMATOLOGY METHOD 08/28/2025 4:07 AM EDT [facility] RDW 13.1 11.5 - 14.5 % LAB HEMATOLOGY METHOD 08/28/2025 4:07 AM EDT [facility] MPV 8.7(L) 8.8 - 12.5 fL LAB HEMATOLOGY METHOD 08/28/2025 4:07 AM EDT [facility] nRBC 0.0 <=0.0 per 100 WBCs LAB HEMATOLOGY METHOD 08/28/2025 4:07 AM EDT [facility] Blood Venous blood specimen / Unknown Venipuncture / Unknown 08/28/2025 3:54 AM EDT 08/28/2025 3:59 AM EDT us Sin Min M aHyder [place] MD LAB BLOOD ORDERABLES Melida l Result [facility] [address] [place] [address] * (ABNORMAL) Basic Metabolic Panel, Plasma (08/28/2025 3:54 AM EDT) Glucose, Plasma 101(H) 74 - 99 mg/dL 08/28/2025 4:29 AM EDT [facility] BUN, Plasma 18 7 - 21 mg/dL 08/28/2025 4:29 AM EDT [facility] Creatinine, Plasma 0.62(L) 0.70 - 1.20 mg/dL 08/28/2025 4:29 AM EDT [facility] BUN/Creatinine Ratio 29 08/28/2025 4:29 AM EDT [facility] Sodium, Plasma 136 136 - 145 mmol/L 08/28/2025 4:29 AM EDT [facility] Potassium, Plasma 4.2 3.6 - 4.9 mmol/L 08/28/2025 4:29 AM EDT [facility] Chloride, Plasma 99 97 - 107 mmol/L 08/28/2025 4:29 AM EDT [facility] CO2, Plasma 28 22 - 29 mmol/L 08/28/2025 4:29 AM EDT [facility] Anion Gap 9 6 - 16 mmol/L 08/28/2025 4:29 AM EDT [facility] Total Calcium, Plasma 9.3 8.9 - 10.2 mg/dL 08/28/2025 4:29 AM EDT [facility] eGFRcr 115.0 mL/min/1.7 3m*2 08/28/2025 4:29 AM EDT [facility] Comment:Reported eGFRcr in m L/min/1.73m2 is based the CKD-EPI 2020 equation that does not use a race coefficient. Blood Venous blood specimen / Unknown Venipuncture / Unknown 08/28/2025 3:54 AM EDT 08/28/2025 3:59 AM EDT us Khadar Singletary DMD, MD LAB BLOOD ORDERABLES Melida l Result [facility] [address] [place] [address] * Type and Screen (08/28/2025 3:54 AM [...] ORD ERABLES Final Result Performing Organization Address [facility]/ZIP Co de Phone Number BLOOD BANK [address] [place] [address], * POCT glucose meter (08/27/2025 11:01 PM EDT) [facility] POCT Glucose 97 74 - 99 mg/dL [...] Comment 08/27/2025 11:03 PM EDT [facility]ALTH[facility]ARE LAB Floorhand ID Lavonne Mccauley 08/27/2025 11:03 PM EDT HEALTHCARE LAB Device ID [id number] 08/27/2025 11:03 PM EDT [facility] Specimen Type POC Capillary 08/27/2025 11:03 PM EDT [facility] Blood Capillary blood specimen / Unknown 08/27/2025 11:01 PM EDT 08/27/2025 11:03 PM EDT Alvaro Adrian DMD, MD LAB POINT OF CA RE TEST DOCKED DEVICE UNSOLICITED RESULTS Final Result Performing Organization Address [facility] de Phone Number [facility] [address] [place] [address] * (ABNORMAL) POCT glucose meter (08/27/2025 5:49 PM EDT) [facility] POCT Glucose 119(H) 74 - 99 mg/dL [...] 08/27/2025 5:54 PM EDT [facility] Floorhand ID Kanika Garay 08/27/2025 5:54 PM EDT HEALTHCARE LAB Device ID [id number] 08/27/2025 5:54 PM EDT [facility] LAB Specimen Type POC Capillary 08/27/2025 5:54 PM EDT [facility] Blood Capillary blood specimen / Unknown 08/27/2025 5:49 PM EDT 08/27/2025 5:54 PM EDT Alvaro Adrian DMD, MD LAB POINT OF CA RE TEST DOCKED DEVICE UNSOLICITED RESULTS Final Result Performing Organization Address City/[facility] Co de Phone Number [facility] [address] [place] [address] * (ABNORMAL) POCT glucose meter (08/27/2025 11:38 AM EDT) [facility] POCT Glucose 102(H) 74 - 99 mg/dL [...] for testing. Comment 08/27/2025 11:40 AM EDT [facility] Floorhand ID Kanika Garay 08/27/2025 11:40 AM EDT HEALTHCARE LAB Device ID [id number] 08/27/2025 11:40 AM EDT [facility]ARE LAB Specimen Type POC Capillary 08/27/2025 11:40 AM EDT [facility] Blood Capillary blood specimen / Unknown 08/27/2025 11:38 AM EDT 08/27/2025 11:40 AM EDT us Alvaro Adrian DMD, MD LAB POINT OF CA RE TEST DOCKED DEVICE UNSOLICITED RESULTS Final Result Performing Organization Address City/[facility] Co de Phone Number [facility] [address] [place] [address] * (ABNORMAL) POCT glucose meter (08/27/2025 5:42 [...] Comment 08/27/2025 5:43 AM EDT [facility]ALTHCARE LAB Floorhand ID Kirsty Garcia 08/27/2025 5:43 AM EDT HEALTHCARE LAB Device ID [id number] 08/27/2025 5:43 AM EDT [facility]ARE LAB Specimen Type POC Capillary 08/27/2025 5:43 AM EDT [facility] Blood Capillary blood specimen / Unknown 08/27/2025 5:42 AM EDT 08/27/2025 5:43 AM EDT us Alvaro Adrian DMD, MD LAB POINT OF CA RE TEST DOCKED DEVICE UNSOLICITED RESULTS Final Result Performing Organization Address City/[facility]/ZIP Co de Phone Number [facility] [address] [place] [address] * Phosphorus, Plasma (08/27/2025 3:44 AM EDT) [facility] Phosphorus, Plasma 3.5 2.5 - 4.5 mg/dL 08/27/2025 4:29 AM EDT [facility] Blood Venous blood specimen / Unknown Venipuncture / Unknown 08/27/2025 3:44 AM EDT 08/27/2025 3:59 AM EDT us Khadar Singletary DMD, MD LAB BLOOD ORDERABLES Melida l Result [facility] [address] [place] [address] * Magnesium, Plasma (08/27/2025 3:44 AM EDT) Pathologist [facility] Magnesium, Plasma 2.1 1.9 - 2.4 mg/dL 08/27/2025 4:29 AM EDT [facility] Blood Venous blood specimen / Unknown Venipuncture / Unknown 08/27/2025 3:44 AM EDT 08/27/2025 3:59 AM EDT us Sin Min M Hayder [place] MD LAB BLOOD ORDERABLES Melida l Result [facility] [address] [place] [address] * (ABNORMAL) CBC W/O Differential (08/27/2025 3:44 AM EDT) WBC Count 10.56(H) 3.70 - 10.30 10*3/uL LAB HEMATOLOGY METHOD 08/27/2025 4:13 AM EDT [facility] RBC Count 2.99(L) 4.60 - 6.10 10*6/uL LAB HEMATOLOGY METHOD 08/27/2025 4:13 AM EDT [facility] HGB 9.3(L) 13.7 - 17.5 g/dL LAB HEMATOLOGY METHOD 08/27/2025 4:13 AM EDT [facility] HCT 28.1(L) 40.0 - 51.0 % LAB HEMATOLOGY METHOD 08/27/2025 4:13 AM EDT [facility] Platelet Count 483(H) 155 - 369 10*3/uL LAB HEMATOLOGY METHOD 08/27/2025 4:13 AM EDT [facility] MCV 94 79 - 98 fL LAB HEMATOLOGY METHOD 08/27/2025 4:13 AM EDT [facility] MCH 31.1 26.0 - 32.0 pg LAB HEMATOLOGY METHOD 08/27/2025 4:13 AM EDT [facility] MCHC 33.1 30.7 - 35.5 g/dL LAB HEMATOLOGY METHOD 08/27/2025 4:13 AM EDT [facility] RDW 12.9 11.5 - 14.5 % LAB HEMATOLOGY METHOD 08/27/2025 4:13 AM EDT [facility] MPV 8.9 8.8 - 12.5 fL LAB HEMATOLOGY METHOD 08/27/2025 4:13 AM EDT [facility] nRBC 0.0 <=0.0 per 100 WBCs LAB HEMATOLOGY METHOD 08/27/2025 4:13 AM EDT [facility] Blood Venous blood specimen / Unknown Venipuncture / Unknown 08/27/2025 3:44 AM EDT 08/27/2025 4:00 AM EDT us Sin Min M Hayder [place] MD LAB BLOOD ORDERABLES Melida l Result [facility] [address] [place] [address] * (ABNORMAL) Basic Metabolic Panel, Plasma (08/27/2025 3:44 AM EDT) Glucose, Plasma 99 74 - 99 mg/dL 08/27/2025 4:29 AM EDT [facility] BUN, Plasma 17 7 - 21 mg/dL 08/27/2025 4:29 AM EDT [facility] Creatinine, Plasma 0.60(L) 0.70 - 1.20 mg/dL 08/27/2025 4:29 AM EDT [facility] BUN/Creatinine Ratio 28 08/27/2025 4:29 AM EDT [facility] Sodium, Plasma 135(L) 136 - 145 mmol/L 08/27/2025 4:29 AM EDT [facility] Potassium, Plasma 4.2 3.6 - 4.9 mmol/L 08/27/2025 4:29 AM EDT [facility] Chloride, Plasma 99 97 - 107 mmol/L 08/27/2025 4:29 AM EDT [facility] CO2, Plasma 28 22 - 29 mmol/L 08/27/2025 4:29 AM EDT [facility] Anion Gap 8 6 - 16 mmol/L 08/27/2025 4:29 AM EDT [facility] Total Calcium, Plasma 9.2 8.9 - 10.2 mg/dL 08/27/2025 4:29 AM EDT [facility] eGFRcr 116.1 mL/min/1.7 3m*2 08/27/2025 4:29 AM EDT [facility] Comment:Reported eGFRcr in m L/min/1.73m2 is based the CKD-EPI 2020 equation that does not use a race coefficient. Blood Venous blood specimen / Unknown Venipuncture / Unknown 08/27/2025 3:44 AM EDT 08/27/2025 3:59 AM EDT us Sin Dilan Singletary DMD, MD LAB BLOOD ORDERABLES Melida l Result Performing Organization Address City/[facility]/ZIP Co de Phone Number [facility] [address] [place] [address] * (ABNORMAL) POCT glucose meter (08/26/2025 11:56 [...] Comment 08/26/2025 11:57 PM EDT [facility]ALTHCARE LAB Floorhand ID Kirsty Garcia 08/26/2025 11:57 PM EDT HEALTHCARE LAB Device ID [id number] 08/26/2025 11:57 PM EDT [facility] Specimen Type POC Capillary 08/26/2025 11:57 PM EDT [facility] Blood Capillary blood specimen / Unknown 08/26/2025 11:56 PM EDT 08/26/2025 11:57 PM EDT us Alvaro Adrian DMD, MD LAB POINT OF CA RE TEST DOCKED DEVICE UNSOLICITED RESULTS Final Result Performing Organization Address City/[facility] Co de Phone Number HEALTHCARE LAB [address] [place] [address] * (ABNORMAL) POCT glucose meter (08/26/2025 6:27 [...] Comment 08/26/2025 6:28 PM EDT [facility]ALTH[facility]ARE LAB Floorhand ID Isha Lemos 08/26/2025 6:28 PM EDT HEALTHCARE LAB Device ID [id number] 08/26/2025 6:28 PM EDT [facility] LAB Specimen Type POC Capillary 08/26/2025 6:28 PM EDT [facility] Blood Capillary blood specimen / Unknown 08/26/2025 6:27 PM EDT 08/26/2025 6:28 PM EDT us Alvaro Adrian DMD, MD LAB POINT OF CA RE TEST DOCKED DEVICE UNSOLICITED RESULTS Final Result Performing Organization Address City/State/[facility] de Phone Number HEALTHCARE LAB [address] [place] [address] * Wound VAC Dressing Changes (Non-Instillation) (08/26/2025 [...] 08/26/2025 12:50 PM EDT [facility] Floorhand ID Isha Lemos 08/26/2025 12:50 PM EDT [facility] Device ID [id number] 08/26/2025 12:50 PM EDT [facility] Specimen Type POC Capillary 08/26/2025 12:50 PM EDT [facility] Blood Capillary blood specimen / Unknown 08/26/2025 12:48 PM EDT 08/26/2025 12:50 PM EDT Alvaro Adrian DMD, MD LAB POINT OF [place] RE TEST DOCKED DEVICE UNSOLICITED RESULTS Final Result [facility] [address] [place] [address] * POCT glucose meter (08/26/2025 5:44 AM EDT) [facility] POCT Glucose 95 74 - 99 [...] 08/26/2025 5:46 AM EDT [facility] Floorhand ID Latisha Winter 08/26/2025 5:46 AM EDT [facility] Device ID [id number] 08/26/2025 5:46 AM EDT [facility] Specimen Type POC Capillary 08/26/2025 5:46 AM EDT [facility] Blood Capillary blood specimen / Unknown 08/26/2025 5:44 AM EDT 08/26/2025 5:46 AM EDT Alvaro Adrian DMD, MD LAB POINT OF CA RE TEST DOCKED DEVICE UNSOLICITED RESULTS Final Result Performing Organization Address [facility] Co de Phone Number [facility] [address] [place] [address] * Phosphorus, Plasma (08/26/2025 3:27 AM EDT) Phosphorus, Plasma 4.0 2.5 - 4.5 mg/dL 08/26/2025 4:11 AM EDT [facility] Blood Venous blood specimen / Unknown Venipuncture / Unknown 08/26/2025 3:27 AM EDT 08/26/2025 3:38 AM EDT us Sin Min Nancy Singletary DMD, MD LAB BLOOD ORDERABLES Melida l Result Performing Organization Address [facility] Co de Phone Number [facility] [address] [place] [address] * Magnesium, Plasma (08/26/2025 3:27 AM EDT) Magnesium, Plasma 2.2 1.9 - 2.4 mg/dL 08/26/2025 4:11 AM EDT [facility] Blood Venous blood specimen / Unknown Venipuncture / Unknown 08/26/2025 3:27 AM EDT 08/26/2025 3:38 AM EDT us Sin Min Nancy Singletary DMD, MD LAB BLOOD ORDERABLES Melida l Result Performing Organization Address City/[facility]/ZIP Co de Phone Number [facility] [address] [place] [address] * (ABNORMAL) CBC W/O Differential (08/26/2025 3:27 AM EDT) WBC Count 11.66(H) 3.70 - 10.30 10*3/uL LAB HEMATOLOGY METHOD 08/26/2025 3:47 AM EDT [facility] RBC Count 3.00(L) 4.60 - 6.10 10*6/uL LAB HEMATOLOGY METHOD 08/26/2025 3:47 AM EDT [facility] HGB 9.2(L) 13.7 - 17.5 g/dL LAB HEMATOLOGY METHOD 08/26/2025 3:47 AM EDT [facility] HCT 28.1(L) 40.0 - 51.0 % LAB HEMATOLOGY METHOD 08/26/2025 3:47 AM EDT [facility] Platelet Count 455(H) 155 - 369 10*3/uL LAB HEMATOLOGY METHOD 08/26/2025 3:47 AM EDT [facility] MCV 94 79 - 98 fL LAB HEMATOLOGY METHOD 08/26/2025 3:47 AM EDT [facility] MCH 30.7 26.0 - 32.0 pg LAB HEMATOLOGY METHOD 08/26/2025 3:47 AM EDT [facility] MCHC 32.7 30.7 - 35.5 g/dL LAB HEMATOLOGY METHOD 08/26/2025 3:47 AM EDT [facility] RDW 12.6 11.5 - 14.5 % LAB HEMATOLOGY METHOD 08/26/2025 3:47 AM EDT [facility] MPV 9.0 8.8 - 12.5 fL LAB HEMATOLOGY METHOD 08/26/2025 3:47 AM EDT [facility] nRBC 0.0 <=0.0 per 100 WBCs LAB HEMATOLOGY METHOD 08/26/2025 3:47 AM EDT [facility] Blood Venous blood specimen / Unknown Venipuncture / Unknown 08/26/2025 3:27 AM EDT 08/26/2025 3:38 AM EDT us Sin Dilan M Hayder [place] MD LAB BLOOD ORDERABLES Melida l Result [facility] [address] [place] [address] * (ABNORMAL) Basic Metabolic Panel, Plasma (08/26/2025 3:27 AM EDT) Glucose, Plasma 101(H) 74 - 99 mg/dL 08/26/2025 4:11 AM EDT [facility] BUN, Plasma 19 7 - 21 mg/dL 08/26/2025 4:11 AM EDT [facility] Creatinine, Plasma 0.59(L) 0.70 - 1.20 mg/dL 08/26/2025 4:11 AM EDT [facility] BUN/Creatinine Ratio 32 08/26/2025 4:11 AM EDT [facility] Sodium, Plasma 138 136 - 145 mmol/L 08/26/2025 4:11 AM EDT [facility] Potassium, Plasma 4.3 3.6 - 4.9 mmol/L 08/26/2025 4:11 AM EDT [facility] Chloride, Plasma 101 97 - 107 mmol/L 08/26/2025 4:11 AM EDT [facility] CO2, Plasma 25 22 - 29 mmol/L 08/26/2025 4:11 AM EDT [facility] Anion Gap 12 6 - 16 mmol/L 08/26/2025 4:11 AM EDT [facility] Total Calcium, Plasma 8.9 8.9 - 10.2 mg/dL 08/26/2025 4:11 AM EDT [facility] eGFRcr 116.7 mL/min/1.7 3m*2 08/26/2025 4:11 AM EDT [facility] Comment:Reported eGFRcr in m L/min/1.73m2 is based the CKD-EPI 2020 equation that does not use a race coefficient. Blood Venous blood specimen / Unknown Venipuncture / Unknown 08/26/2025 3:27 AM EDT 08/26/2025 3:38 AM EDT us Sin Min M Hayder [place] MD LAB BLOOD ORDERABLES Melida l Result [facility] [address] [place] [address] * (ABNORMAL) POCT glucose meter (08/25/2025 11:38 PM EDT) POCT Glucose 129(H) 74 - 99 mg/dL 08/26/2025 12:00 AM EDT [facility] Comment:Accuracy of a glucos e [...] 08/26/2025 12:00 AM EDT [facility] Floorhand ID Hailey Lund 08/26/2025 12:00 AM EDT [facility] Device ID [id number] 08/26/2025 12:00 AM EDT [facility] Specimen Type POC Capillary 08/26/2025 12:00 AM EDT [facility] Blood Capillary blood specimen / Unknown 08/25/2025 11:38 PM EDT 08/26/2025 12:00 AM EDT us Alvaro Adrian DMD, MD LAB POINT OF [place] RE TEST DOCKED DEVICE UNSOLICITED RESULTS Final Result Performing Organization Address City/State/[facility] Co de Phone Number [facility] [address] [place] [address] * POCT glucose meter (08/25/2025 5:08 PM EDT) [facility] POCT Glucose 91 74 - 99 mg/dL [...] 08/25/2025 5:10 PM EDT [facility] Floorhand ID Marily Cao 5:10 PM EDT [facility] Device ID [id number] 08/25/2025 5:10 PM EDT [facility] Specimen Type POC Capillary 08/25/2025 5:10 PM EDT [facility] Blood Capillary blood specimen / Unknown 08/25/2025 5:08 PM EDT 08/25/2025 5:10 PM EDT us Alvaro Adrian DMD, MD LAB POINT OF CA RE TEST DOCKED DEVICE UNSOLICITED RESULTS Final Result Performing Organization Address City/[facility] de Phone Number [facility] [address] [place] [address] * (ABNORMAL) POCT glucose meter (08/25/2025 11:42 AM EDT) [facility] POCT Glucose 112(H) 74 - 99 mg/dL [...] 08/25/2025 12:00 PM EDT [facility] Floorhand ID Marily Cao 12:00 PM EDT [facility] Device ID [id number] 08/25/2025 12:00 PM EDT [facility] Specimen Type POC Capillary 08/25/2025 12:00 PM EDT [facility] Blood Capillary blood specimen / Unknown 08/25/2025 11:42 AM EDT 08/25/2025 12:00 PM EDT Alvaro Adrian DMD, MD LAB POINT OF CA RE TEST DOCKED DEVICE UNSOLICITED RESULTS Final Result Performing Organization Address [facility] de Phone Number [facility] [address] [place] [address] * POCT glucose meter (08/25/2025 5:02 AM EDT) [facility] POCT Glucose 83 74 - 99 [...] 08/25/2025 5:04 AM EDT [facility] Floorhand ID Maxwell Ortega 5:04 AM EDT [facility] Device ID [id number] 08/25/2025 5:04 AM EDT [facility] Specimen Type POC Capillary 08/25/2025 5:04 AM EDT [facility] Blood Capillary blood specimen / Unknown 08/25/2025 5:02 AM EDT 08/25/2025 5:04 AM EDT us Alvaro Adrian DMD, MD LAB POINT OF CA RE TEST DOCKED DEVICE UNSOLICITED RESULTS Final Result Performing Organization Address City/[facility] Co de Phone Number [facility] [address] [place] [address] * (ABNORMAL) POCT glucose meter (08/24/2025 11:06 PM EDT) [facility] POCT Glucose 107(H) 74 - 99 mg/dL [...] 08/24/2025 11:08 PM EDT [facility] Floorhand ID Hailey Lund 08/24/2025 11:08 PM EDT [facility] LAB Device ID [id number] 08/24/2025 11:08 PM EDT [facility] Specimen Type POC Capillary 08/24/2025 11:08 PM EDT [facility] Blood Capillary blood specimen / Unknown 08/24/2025 11:06 PM EDT 08/24/2025 11:08 PM EDT us Alvaro Adrian DMD, MD LAB POINT OF CA RE TEST DOCKED DEVICE UNSOLICITED RESULTS Final Result Performing Organization Address City/[facility] Co de Phone Number [facility] [address] [place] [address] * (ABNORMAL) POCT glucose meter (08/24/2025 5:33 PM EDT) Pathologist [facility] POCT Glucose 133(H) 74 - 99 mg/dL [...] 08/24/2025 5:35 PM EDT [facility] Floorhand ID Renee Mills 08/24/2025 5:35 PM EDT [facility] LAB Device ID [id number] 08/24/2025 5:35 PM EDT [facility] Specimen Type POC Capillary 08/24/2025 5:35 PM EDT [facility] Blood Capillary blood specimen / Unknown 08/24/2025 5:33 PM EDT 08/24/2025 5:35 PM EDT Alvaro Adrian DMD, MD LAB POINT OF CA RE TEST DOCKED DEVICE UNSOLICITED RESULTS Final Result [facility] [address] [place] [address] * (ABNORMAL) POCT glucose meter (08/24/2025 12:32 PM EDT) [facility] Signature POCT Glucose 117(H) 74 - 99 [...] 08/24/2025 12:38 PM EDT [facility] Floorhand ID Renee Mills 08/24/2025 12:38 PM EDT [facility] Device ID [id number] 08/24/2025 12:38 PM EDT [facility] Specimen Type POC Capillary 08/24/2025 12:38 PM EDT [facility] Blood Capillary blood specimen / Unknown 08/24/2025 12:32 PM EDT 08/24/2025 12:38 PM EDT us Alvaro Adrian DMD, MD LAB POINT OF CA RE TEST DOCKED DEVICE UNSOLICITED RESULTS Final Result Performing Organization Address [facility] Co de Phone Number [facility] [address] [place] [address] * POCT glucose meter (08/24/2025 5:57 AM EDT) [facility] POCT Glucose 92 74 - 99 mg/dL [...] Comment 08/24/2025 5:59 AM EDT [facility] Floorhand ID Morenita Lizama 025 5:59 AM EDT [facility] LAB Device ID [id number] 08/24/2025 5:59 AM EDT [facility] Specimen Type POC Capillary 08/24/2025 5:59 AM EDT [facility] Blood Capillary blood specimen / Unknown 08/24/2025 5:57 AM EDT 08/24/2025 5:59 AM EDT Alvaro Adrian DMD, MD LAB POINT OF CA RE TEST DOCKED DEVICE UNSOLICITED RESULTS Final Result Performing Organization Address City/[facility] Co de Phone Number [facility] [address] [place] [address] * (ABNORMAL) CBC W/O Differential (08/24/2025 3:29 AM EDT) [facility] WBC Count 10.15 3.70 - 10.30 10*3/uL LAB HEMATOLOGY METHOD 08/24/2025 4:13 AM EDT [facility] RBC Count 2.95(L) 4.60 - 6.10 10*6/uL LAB HEMATOLOGY METHOD 08/24/2025 4:13 AM EDT [facility] HGB 9.1(L) 13.7 - 17.5 g/dL LAB HEMATOLOGY METHOD 08/24/2025 4:13 AM EDT [facility] HCT 27.7(L) 40.0 - 51.0 % LAB HEMATOLOGY METHOD 08/24/2025 4:13 AM EDT [facility] Platelet Count 381(H) 155 - 369 10*3/uL LAB HEMATOLOGY METHOD 08/24/2025 4:13 AM EDT [facility] MCV 94 79 - 98 fL LAB HEMATOLOGY METHOD 08/24/2025 4:13 AM EDT [facility] MCH 30.8 26.0 - 32.0 pg LAB HEMATOLOGY METHOD 08/24/2025 4:13 AM EDT [facility] MCHC 32.9 30.7 - 35.5 g/dL LAB HEMATOLOGY METHOD 08/24/2025 4:13 AM EDT [facility] RDW 12.4 11.5 - 14.5 % LAB HEMATOLOGY METHOD 08/24/2025 4:13 AM EDT [facility] MPV 9.4 8.8 - 12.5 fL LAB HEMATOLOGY METHOD 08/24/2025 4:13 AM EDT [facility] nRBC 0.0 <=0.0 per 100 WBCs LAB HEMATOLOGY METHOD 08/24/2025 4:13 AM EDT [facility] Blood Venous blood specimen / Unknown Venipuncture / Unknown 08/24/2025 3:29 AM EDT 08/24/2025 4:01 AM EDT us Alvaro Adrian DMD, MD LAB BLOOD ORDERABLES Fi nal Result [facility] [address] [place] [address] * (ABNORMAL) Basic Metabolic Panel, Plasma (08/24/2025 3:29 AM EDT) Glucose, Plasma 107(H) 74 - 99 mg/dL 08/24/2025 4:28 AM EDT [facility] BUN, Plasma 17 7 - 21 mg/dL 08/24/2025 4:28 AM EDT [facility] Creatinine, Plasma 0.59(L) 0.70 - 1.20 mg/dL 08/24/2025 4:28 AM EDT [facility] BUN/Creatinine Ratio 29 08/24/2025 4:28 AM EDT [facility] Sodium, Plasma 137 136 - 145 mmol/L 08/24/2025 4:28 AM EDT [facility] Potassium, Plasma 3.9 3.6 - 4.9 mmol/L 08/24/2025 4:28 AM EDT [facility] Chloride, Plasma 101 97 - 107 mmol/L 08/24/2025 4:28 AM EDT [facility] CO2, Plasma 27 22 - 29 mmol/L 08/24/2025 4:28 AM EDT [facility] Anion Gap 9 6 - 16 mmol/L 08/24/2025 4:28 AM EDT [facility] Total Calcium, Plasma 8.8(L) 8.9 - 10.2 mg/dL 08/24/2025 4:28 AM EDT [facility] eGFRcr 116.7 mL/min/1.7 3m*2 08/24/2025 4:28 AM EDT [facility] Comment:Reported eGFRcr in m L/min/1.73m2 is based the CKD-EPI 2020 equation that does not use a race coefficient. Blood Venous blood specimen / Unknown Venipuncture / Unknown 08/24/2025 3:29 AM EDT 08/24/2025 3:59 AM EDT us Alvaro Adrian DMD, MD LAB BLOOD ORDERABLES Fi nal Result [facility] [address] [place] [address] * Magnesium, Plasma (08/24/2025 3:29 AM EDT) Magnesium, Plasma 2.0 1.9 - 2.4 mg/dL 08/24/2025 4:28 AM EDT [facility] Blood Venous blood specimen / Unknown Venipuncture / Unknown 08/24/2025 3:29 AM EDT 08/24/2025 3:59 AM EDT us Alvaro Adrian DMD, MD LAB BLOOD ORDERABLES Fi nal Result Performing Organization Address City/[facility]/ZIP Co de Phone Number [address] [address] * Phosphorus, Plasma (08/24/2025 3:29 AM EDT) [facility] Phosphorus, Plasma 3.7 2.5 - 4.5 mg/dL 08/24/2025 4:28 AM EDT [facility] Blood Venous blood specimen / Unknown Venipuncture / Unknown 08/24/2025 3:29 AM EDT 08/24/2025 3:59 AM EDT us Alvaro Adrian DMD, MD LAB BLOOD ORDERABLES Fi nal Result Performing Organization Address City/[facility] [place] [address] * (ABNORMAL) POCT glucose meter (08/24/2025 12:46 AM EDT) [facility] POCT Glucose 126(H) 74 - 99 [...] 08/24/2025 12:48 AM EDT [facility] Floorhand ID Morenita Lizama 025 12:48 AM EDT [facility] Device ID [id number] 08/24/2025 12:48 AM EDT [facility] Specimen Type POC Capillary 08/24/2025 12:48 AM EDT [facility] Blood Capillary blood specimen / Unknown 08/24/2025 12:46 AM EDT 08/24/2025 12:48 AM EDT us Alvaro Adrian DMD, MD LAB POINT [place] RE TEST DOCKED DEVICE UNSOLICITED RESULTS Final Result [facility] [address] [place] [address] * POCT glucose meter (08/23/2025 6:45 PM EDT) [facility] POCT Glucose 83 74 - 99 [...] 08/23/2025 6:47 PM EDT [facility] Floorhand ID Nicole Doss 08/23/2025 6:47 PM EDT [facility] Device ID [id number] 08/23/2025 6:47 PM EDT [facility] Specimen Type POC Capillary 08/23/2025 6:47 PM EDT [facility] Blood Capillary blood specimen / Unknown 08/23/2025 6:45 PM EDT 08/23/2025 6:47 PM EDT us Alvaro Adrian DMD, MD LAB POINT OF [place] RE TEST DOCKED DEVICE UNSOLICITED RESULTS Final Result Performing Organization Address City/[facility] Co de Phone Number [facility] [address] [place] [address] * POCT glucose meter (08/23/2025 1:07 PM EDT) [facility] POCT Glucose 98 74 - 99 [...] 08/23/2025 1:10 PM EDT [facility] Floorhand ID Nicole Doss 08/23/2025 1:10 PM EDT [facility] LAB Device ID [id number] 08/23/2025 1:10 PM EDT [facility] Specimen Type POC Capillary 08/23/2025 1:10 PM EDT [facility] Blood Capillary blood specimen / Unknown 08/23/2025 1:07 PM EDT 08/23/2025 1:10 PM EDT us Alvaro Adrian DMD, MD LAB POINT OF CA RE TEST DOCKED DEVICE UNSOLICITED RESULTS Final Result [facility] [address] [place] [address] * (ABNORMAL) CBC W/O Differential (08/23/2025 3:26 AM EDT) WBC Count 10.09 3.70 - 10.30 10*3/uL LAB HEMATOLOGY METHOD 08/23/2025 3:45 AM EDT [facility] RBC Count 3.11(L) 4.60 - 6.10 10*6/uL LAB HEMATOLOGY METHOD 08/23/2025 3:45 AM EDT [facility] HGB 9.5(L) 13.7 - 17.5 g/dL LAB HEMATOLOGY METHOD 08/23/2025 3:45 AM EDT [facility] HCT 29.1(L) 40.0 - 51.0 % LAB HEMATOLOGY METHOD 08/23/2025 3:45 AM EDT [facility] Platelet Count 326 155 - 369 10*3/uL LAB HEMATOLOGY METHOD 08/23/2025 3:45 AM EDT [facility] MCV 94 79 - 98 fL LAB HEMATOLOGY METHOD 08/23/2025 3:45 AM EDT [facility] MCH 30.5 26.0 - 32.0 pg LAB HEMATOLOGY METHOD 08/23/2025 3:45 AM EDT [facility] MCHC 32.6 30.7 - 35.5 g/dL LAB HEMATOLOGY METHOD 08/23/2025 3:45 AM EDT [facility] RDW 12.6 11.5 - 14.5 % LAB HEMATOLOGY METHOD 08/23/2025 3:45 AM EDT [facility] MPV 9.5 8.8 - 12.5 fL LAB HEMATOLOGY METHOD 08/23/2025 3:45 AM EDT [facility] nRBC 0.0 <=0.0 per 100 WBCs LAB HEMATOLOGY METHOD 08/23/2025 3:45 AM EDT [facility] Blood Venous blood specimen / Unknown Venipuncture / Unknown 08/23/2025 3:26 AM EDT 08/23/2025 3:34 AM EDT us Alvaro Adrian DMD, MD LAB BLOOD ORDERABLES Fi nal Result [facility] [address] [place] [address] * (ABNORMAL) Basic Metabolic Panel, Plasma (08/23/2025 3:26 AM EDT) Glucose, Plasma 100(H) 74 - 99 mg/dL 08/23/2025 4:07 AM EDT [facility] BUN, Plasma 15 7 - 21 mg/dL 08/23/2025 4:07 AM EDT [facility] Creatinine, Plasma 0.58(L) 0.70 - 1.20 mg/dL 08/23/2025 4:07 AM EDT [facility] BUN/Creatinine Ratio 26 08/23/2025 4:07 AM EDT [facility] Sodium, Plasma 137 136 - 145 mmol/L 08/23/2025 4:07 AM EDT [facility] Potassium, Plasma 4.0 3.6 - 4.9 mmol/L 08/23/2025 4:07 AM EDT [facility] Chloride, Plasma 102 97 - 107 mmol/L 08/23/2025 4:07 AM EDT [facility] CO2, Plasma 25 22 - 29 mmol/L 08/23/2025 4:07 AM EDT [facility] Anion Gap 10 6 - 16 mmol/L 08/23/2025 4:07 AM EDT [facility] Total Calcium, Plasma 8.7(L) 8.9 - 10.2 mg/dL 08/23/2025 4:07 AM EDT [facility] eGFRcr 117.3 mL/min/1.7 3m*2 08/23/2025 4:07 AM EDT [facility] Comment:Reported eGFRcr in m L/min/1.73m2 is based the CKD-EPI 2020 equation that does not use a race coefficient. Blood Venous blood specimen / Unknown Venipuncture / Unknown 08/23/2025 3:26 AM EDT 08/23/2025 3:35 AM EDT us Alvaro Adrian DMD, MD LAB BLOOD ORDERABLES Fi nal Result Performing Organization Address City/[facility]/ZIP Co de Phone Number [facility] [address] [place] [address] * Magnesium, Plasma (08/23/2025 3:26 AM EDT) Magnesium, Plasma 2.0 1.9 - 2.4 mg/dL 08/23/2025 4:07 AM EDT [facility] Blood Venous blood specimen / Unknown Venipuncture / Unknown 08/23/2025 3:26 AM EDT 08/23/2025 3:35 AM EDT us Alvaro Adrian DMD, MD LAB BLOOD ORDERABLES Fi nal Result Performing Organization Address [facility] Co de Phone Number [facility] [address] [place] [address] * Phosphorus, Plasma (08/23/2025 3:26 AM EDT) Phosphorus, Plasma 3.3 2.5 - 4.5 mg/dL 08/23/2025 4:07 AM EDT [facility] Blood Venous blood specimen / Unknown Venipuncture / Unknown 08/23/2025 3:26 AM EDT 08/23/2025 3:35 AM EDT us Alvaro Adrian DMD, MD LAB BLOOD ORDERABLES Fi nal Result Performing Organization Address City/[facility]/ZIP Co de Phone Number [facility] [address] [place] [address] * Phosphorus (08/22/2025 5:02 AM EDT) Phosphorus, Plasma 3.1 2.5 - 4.5 mg/dL 08/22/2025 6:09 AM EDT [facility] Blood Venous blood specimen / Unknown Venipuncture / Unknown 08/22/2025 5:02 AM EDT 08/22/2025 5:33 AM EDT Marvin Santana MD LAB BLOOD ORDERABLES Fin al Result [facility] [address] [place] [address] * Magnesium (08/22/2025 5:02 AM EDT) Magnesium, Plasma 2.0 1.9 - 2.4 mg/dL 08/22/2025 6:09 AM EDT [facility] Blood Venous blood specimen / Unknown Venipuncture / Unknown 08/22/2025 5:02 AM EDT 08/22/2025 5:33 AM EDT Marvin Santana MD LAB BLOOD ORDERABLES Fin al Result Performing Organization Address City/[facility]/ZIP Co de Phone Number [facility] [address] [place] [address] * (ABNORMAL) Basic metabolic panel (08/22/2025 5:02 AM EDT) Glucose, Plasma 95 74 - 99 mg/dL 08/22/2025 6:09 AM EDT [facility] BUN, Plasma 15 7 - 21 mg/dL 08/22/2025 6:09 AM EDT [facility] Creatinine, Plasma 0.52(L) 0.70 - 1.20 mg/dL 08/22/2025 6:09 AM EDT [facility] BUN/Creatinine Ratio 29 08/22/2025 6:09 AM EDT [facility] Sodium, Plasma 139 136 - 145 mmol/L 08/22/2025 6:09 AM EDT [facility] Potassium, Plasma 3.8 3.6 - 4.9 mmol/L 08/22/2025 6:09 AM EDT [facility] Chloride, Plasma 102 97 - 107 mmol/L 08/22/2025 6:09 AM EDT [facility] CO2, Plasma 27 22 - 29 mmol/L 08/22/2025 6:09 AM EDT [facility] Anion Gap 10 6 - 16 mmol/L 08/22/2025 6:09 AM EDT [facility] Total Calcium, Plasma 8.8(L) 8.9 - 10.2 mg/dL 08/22/2025 6:09 AM EDT [facility] eGFRcr 121.3 mL/min/1.7 3m*2 08/22/2025 6:09 AM EDT [facility] Comment:Reported eGFRcr in m L/min/1.73m2 is based the CKD-EPI 2020 equation that does not use a race coefficient. Blood Venous blood specimen / Unknown Venipuncture / Unknown 08/22/2025 5:02 AM EDT 08/22/2025 5:33 AM EDT us Marvin Santana MD LAB BLOOD ORDERABLES Fin al Result [facility] [address] [place] [address] * (ABNORMAL) CBC W/O Differential (08/22/2025 5:02 AM EDT) WBC Count 11.20(H) 3.70 - 10.30 10*3/uL LAB HEMATOLOGY METHOD 08/22/2025 5:44 AM EDT [facility] RBC Count 3.19(L) 4.60 - 6.10 10*6/uL LAB HEMATOLOGY METHOD 08/22/2025 5:44 AM EDT [facility] HGB 9.8(L) 13.7 - 17.5 g/dL LAB HEMATOLOGY METHOD 08/22/2025 5:44 AM EDT [facility] HCT 29.6(L) 40.0 - 51.0 % LAB HEMATOLOGY METHOD 08/22/2025 5:44 AM EDT [facility] Platelet Count 271 155 - 369 10*3/uL LAB HEMATOLOGY METHOD 08/22/2025 5:44 AM EDT [facility] MCV 93 79 - 98 fL LAB HEMATOLOGY METHOD 08/22/2025 5:44 AM EDT [facility] MCH 30.7 26.0 - 32.0 pg LAB HEMATOLOGY METHOD 08/22/2025 5:44 AM EDT [facility] MCHC 33.1 30.7 - 35.5 g/dL LAB HEMATOLOGY METHOD 08/22/2025 5:44 AM EDT [facility] RDW 12.6 11.5 - 14.5 % LAB HEMATOLOGY METHOD 08/22/2025 5:44 AM EDT [facility] MPV 9.5 8.8 - 12.5 fL LAB HEMATOLOGY METHOD 08/22/2025 5:44 AM EDT [facility] nRBC 0.0 <=0.0 per 100 WBCs LAB HEMATOLOGY METHOD 08/22/2025 5:44 AM EDT [facility] Blood Venous blood specimen / Unknown Venipuncture / Unknown 08/22/2025 5:02 AM EDT 08/22/2025 5:32 AM EDT us Marvin Santana MD LAB BLOOD ORDERABLES Fin al Result [facility] [address] [place] [address] * (ABNORMAL) CBC W/O Differential (08/20/2025 5:56 AM EDT) WBC Count 16.03(H) 3.70 - 10.30 10*3/uL LAB HEMATOLOGY METHOD 08/20/2025 6:17 AM EDT [facility] RBC Count 3.46(L) 4.60 - 6.10 10*6/uL LAB HEMATOLOGY METHOD 08/20/2025 6:17 AM EDT [facility] HGB 10.8(L) 13.7 - 17.5 g/dL LAB HEMATOLOGY METHOD 08/20/2025 6:17 AM EDT [facility] HCT 31.2(L) 40.0 - 51.0 % LAB HEMATOLOGY METHOD 08/20/2025 6:17 AM EDT [facility] Platelet Count 290 155 - 369 10*3/uL LAB HEMATOLOGY METHOD 08/20/2025 6:17 AM EDT [facility] MCV 90 79 - 98 fL LAB HEMATOLOGY METHOD 08/20/2025 6:17 AM EDT [facility] MCH 31.2 26.0 - 32.0 pg LAB HEMATOLOGY METHOD 08/20/2025 6:17 AM EDT [facility] MCHC 34.6 30.7 - 35.5 g/dL LAB HEMATOLOGY METHOD 08/20/2025 6:17 AM EDT [facility] RDW 12.6 11.5 - 14.5 % LAB HEMATOLOGY METHOD 08/20/2025 6:17 AM EDT [facility] MPV 9.7 8.8 - 12.5 fL LAB HEMATOLOGY METHOD 08/20/2025 6:17 AM EDT [facility] nRBC 0.0 <=0.0 per 100 WBCs LAB HEMATOLOGY METHOD 08/20/2025 6:17 AM EDT [facility] Blood Venous blood specimen / Unknown Venipuncture / Unknown 08/20/2025 5:56 AM EDT 08/20/2025 6:09 AM EDT us Marvin Santana MD LAB BLOOD ORDERABLES Fin al Result [facility] [address] [place] [address] * (ABNORMAL) Basic Metabolic Panel, Plasma (08/20/2025 5:56 AM EDT) Glucose, Plasma 140(H) 74 - 99 mg/dL 08/20/2025 6:39 AM EDT [facility] BUN, Plasma 16 7 - 21 mg/dL 08/20/2025 6:39 AM EDT [facility] Creatinine, Plasma 0.64(L) 0.70 - 1.20 mg/dL 08/20/2025 6:39 AM EDT [facility] BUN/Creatinine Ratio 25 08/20/2025 6:39 AM EDT [facility] Sodium, Plasma 136 136 - 145 mmol/L 08/20/2025 6:39 AM EDT [facility] Potassium, Plasma 5.2(H) 3.6 - 4.9 mmol/L 08/20/2025 6:39 AM EDT [facility] Comment:Hemolyzed, result ma y be falsely increased. Chloride, Plasma 101 97 - 107 mmol/L 08/20/2025 6:39 AM EDT [facility] CO2, Plasma 23 22 - 29 mmol/L 08/20/2025 6:39 AM EDT [facility] Anion Gap 12 6 - 16 mmol/L 08/20/2025 6:39 AM EDT [facility] Total Calcium, Plasma 8.6(L) 8.9 - 10.2 mg/dL 08/20/2025 6:39 AM EDT [facility] eGFRcr 113.9 mL/min/1.7 3m*2 08/20/2025 6:39 AM EDT [facility] Comment:Reported eGFRcr in m L/min/1.73m2 is based the CKD-EPI 2020 equation that does not use a race coefficient. Blood Venous blood specimen / Unknown Venipuncture / Unknown 08/20/2025 5:56 AM EDT 08/20/2025 6:08 AM EDT us Marvin Santana MD LAB BLOOD ORDERABLES Fin al Result Performing Organization Address City/[facility]/ZIP Co de Phone Number [facility] [address] [place] [address] * (ABNORMAL) Magnesium, Plasma (08/20/2025 5:56 AM EDT) Magnesium, Plasma 1.8(L) 1.9 - 2.4 mg/dL 08/20/2025 6:39 AM EDT [facility] Blood Venous blood specimen / Unknown Venipuncture / Unknown 08/20/2025 5:56 AM EDT 08/20/2025 6:08 AM EDT us Marvin Santana MD LAB BLOOD ORDERABLES Fin al Result Performing Organization Address City/[facility]/ZIP Co de Phone Number [facility] [address] [place] [address] * Phosphorus, Plasma (08/20/2025 5:56 AM EDT) Phosphorus, Plasma 3.2 2.5 - 4.5 mg/dL 08/20/2025 6:39 AM EDT [facility] Blood Venous blood specimen / Unknown Venipuncture / Unknown 08/20/2025 5:56 AM EDT 08/20/2025 6:08 AM EDT us Marvin Santana MD LAB BLOOD ORDERABLES Fin al Result [facility] [address] [place] [address] * XR Abdomen 1 View (08/19/2025 8:37 [...] of the abdomen. COMPARISON: None. FINDINGS: Limited [id number] abdominal radiograph for the purpose of locating tube position. The tip of the feeding tube is within the proximal stomach. Procedure Note Patricio Trevino MD - 08/19/2025 CLINICAL INDICATION: DHT placement TECHNIQUE: Supine radiograph of the abdomen. COMPARISON: None. FINDINGS: Limited kvkwa-[id number] abdominal radiograph for the purpose of locatingtube [...] at day 1 08/21/2025 7:33 AM EDT [facility] Swab (Nares and Nini Rectal) Non-blood Collection / Unknown 08/19/2025 8:19 PM EDT 08/19/2025 8:30 PM EDT Narrative [facility] - 08/21/2025 7:33 AM EDT This test was developed and its performance characteristics determined by the [facility]. Although the media is FDA-approved, it is not FDA-approved for all specimen types submitted. The FDA has determined that such clearance or approval is not necessary. This test is used for surveillance purposes. It should not be regarded as investigational or for research. The [facility] is certified under the Clinical Laboratory Improvement Amendments of 1988 (CLIA-88) as qualified to perform high complexity clinical laboratory testing. Marvin Santana MD LAB MICROBIOLOGY - GENER AL ORDERABLES Final Result [facility] [address] [place] [address] * Cecelia auris Surveillance by PCR (08/19/2025 8:19 PM EDT) Cecelia auris PCR Result Not Detected Not Detected 08/21/2025 10:33 AM EDT [facility] Swab (Axilla and Groin) Non-blood Collection / Unknown 08/19/2025 8:19 PM EDT 08/19/2025 8:30 PM EDT Narrative [facility] - 08/21/2025 10:33 AM EDT This PCR assay was developed and its performance characteristics determined by [facility] as appropriate for clinical purposes. This assay has not been cleared or approved by the FDA, but is performed in a CLIA regulated laboratory that is qualified to perform high-complexity testing. Marvin Santana MD LAB MICROBIOLOGY - GENER AL ORDERABLES Final Result [facility] [address] [place] [address] * (ABNORMAL) Blood gas, arterial (08/19/2025 12:23 PM EDT) pH, Arterial 7.38 7.35 - 7.45 LAB HEMATOLOGY METHOD 08/19/2025 12:40 PM EDT [facility] pCO2, Arterial 42 32 - 45 mmHg LAB HEMATOLOGY METHOD 08/19/2025 12:40 PM EDT [facility] pO2, Arterial 107 83 - 108 mmHg LAB HEMATOLOGY METHOD 08/19/2025 12:40 PM EDT [facility] SO2, Measured, Arterial 99(H) 94 - 98 % LAB HEMATOLOGY METHOD 08/19/2025 12:40 PM EDT [facility] Base Excess, Arterial -0.8 -2.0 - 3.0 mmol/L LAB HEMATOLOGY METHOD 08/19/2025 12:40 PM EDT [facility] Bicarbonate, Calculated, Arterial 24 22 - 26 mmol/L LAB HEMATOLOGY METHOD 08/19/2025 12:40 PM EDT [facility] Hematocrit, Whole Blood 38.9(L) 40.0 - 51.0 % LAB HEMATOLOGY METHOD 08/19/2025 12:40 PM EDT [facility] Sodium, Whole Blood 138 136 - 145 mmol/L LAB HEMATOLOGY METHOD 08/19/2025 12:40 PM EDT [facility] Potassium, Whole Blood 3.7 3.6 - 4.9 mmol/L LAB HEMATOLOGY METHOD 08/19/2025 12:40 PM EDT [facility] Chloride, Whole Blood 105 97 - 107 mmol/L LAB HEMATOLOGY METHOD 08/19/2025 12:40 PM EDT [facility] Glucose, Whole Blood 146(H) 74 - 99 mg/dL LAB HEMATOLOGY METHOD 08/19/2025 12:40 PM EDT [facility] Ionized Calcium, Whole Blood 4.5(L) 4.6 - 5.1 mg/dL LAB HEMATOLOGY METHOD 08/19/2025 12:40 PM EDT [facility] Lactate, Arterial, Whole Blood 1.0 0.5 - 1.6 mmol/L LAB HEMATOLOGY METHOD 08/19/2025 12:40 PM EDT [facility] Blood Arterial blood specimen / Unknown 08/19/2025 12:23 PM EDT 08/19/2025 12:33 PM EDT 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 There is no change in the final diagnosis. Floor of mouth squamous cell carcinoma 08/28/2025 11:21 AM EDT [facility] Addendum electronically signed by [...] FOR CARCINOMA (0/20) 08/28/2025 11:21 AM EDT [facility] at 1949 EDT Comment:This [...] in part L. 08/28/2025 11:21 AM EDT [facility] Comment:This is an appended [...] pN Category: pN1 08/28/2025 11:21 AM EDT [facility] Clinical Information No Dx Found. 08/28/2025 11:21 AM EDT [facility] Comment:This is an appended [...] TUMOR IDENTIFIED. NO 08/28/2025 11:21 AM EDT [facility] Comment:Corrected result: Pr eviously [...] formalin submitted entirely in cassette F1 Marvel Hererra MD G. POSTERIOR LINGUAL MUCOSA, FROZEN Specimen [...] a robin-white, papillary, irregularly-shap ed 2.4 cm (anterior-roustabout crew leader ior) by 1.9 (superior-inferi or) lesion that appears to abut the posterior and inferior margins. Gross photographs both pre ink and inked are provided. Ink code: Blue-anterior Red-superior Green-inferior Black-posterior [place]-medial Uninked (with lesion)-lateral Specimen is serially sectioned [...] of left brandyn mandibulectomy measuring 10.0 cm (anterior-roustabout crew leader ior) x 4.6 cm (left-right) x 3.5 cm (superior-inferi or) with an attached ramus measuring 6.2 cm (superior-inferi or) x 0.6 cm (left-right) x 1.3 cm (anterior-roustabout crew leader ior). The specimen is oriented by a short-short stitch on the lateral soft tissue, a long-short stitch on the anterior soft tissue and a long-long stitch on the medial soft tissue. The attached medial soft tissue measures 3.4 (left-right) by 8.4 (anterior-roustabout crew leader ior) by 2.0 (superior-inferi or), and is [...] and the gingiva there is a 3.4 (anterior-roustabout crew leader ior by 1.8 (superior-inferi or by 0.8 [...] no other interosseous lesions are grossly noted Transmission And Protection Engineer sections are submitted as follows: L1: Anterior mucosal and soft tissue margin L2: Lateral mucosal and soft tissue margin L3: Medial mucosal and soft tissue margin L4: Posterior mucosal and soft tissue margin L5: Inferior soft tissue margin L6: Mass 2 L7-L9: Mass 1, deepest bone invasion in L9 L10: Mandibular interosseous lesion L11: Softened bone adjacent to lesion L12: Transmission And Protection Engineer sample of lesion Cold Time: 0 Marvel [...] Marvel Herrera MD 08/28/2025 11:21 AM T [facility] Comment:This is an appended report. These results have been appended to a previously preliminary verified report. Note: A resident was involved in the service. I attest I examined the relevant preparations for the specimens and confirmed the diagnosis or interpretation. 08/28/2025 11:21 AM T [facility] Comment:This is an appended [...] PATHOLOGY ORDERABLE S Edited Result - Final [facility] [address] [place] [address] * Surgical Pathology Exam (08/19/2025 9:17 AM EDT) Case Report Surgical Pathology Case: [id number] Authorizing Provider: Marvin Santana MD Collected: 08/19/2025 0917 Ordering Location: [facility]PER[facility] Received: 08/19/2025 1337 Pathologist: Timothy [...] fresh for permanent 08/28/2025 11:21 AM EDT [facility] Addendum This addendum is to document the provided clinical history. There is no change in the final diagnosis. Floor of mouth squamous cell carcinoma 08/28/2025 11:21 AM EDT [facility] Addendum electronically signed by [...] FOR CARCINOMA (0/20) 08/28/2025 11:21 AM T [facility] at 1947 EDT Comment:This [...] in part L. 08/28/2025 11:21 AM T [facility] Comment:This is an appended report. These [...] pN Category: pN1 08/28/2025 11:21 AM EDT [facility] Clinical Information No Dx Found. 08/28/2025 11:21 AM EDT [facility] Comment:This is an appended [...] TUMOR IDENTIFIED. NO 08/28/2025 11:21 AM EDT [facility] Comment:Corrected result: Pr eviously [...] formalin and submitted entirely in cassette B1 Marevl Herrera MD C. ANTERIOR LINGUAL FOR FROZEN [...] a robin-white, papillary, irregularly-shap ed 2.4 cm (anterior-roustabout crew leader ior) by 1.9 (superior-inferi or) lesion that appears to abut the posterior and inferior margins. Gross photographs both pre ink and inked are provided. Ink code: Blue-anterior Red-superior Green-inferior Black-posterior [place]allam-medial Uninked (with lesion)-lateral Specimen is serially sectioned [...] of left brandyn mandibulectomy measuring 10.0 cm (anterior-roustabout crew leader ior) x 4.6 cm (left-right) x 3.5 cm (superior-inferi or) with an attached ramus measuring 6.2 cm (superior-inferi or) x 0.6 cm (left-right) x 1.3 cm (anterior-roustabout crew leader ior). The specimen is oriented by a short-short stitch on the lateral soft tissue, a long-short stitch on the anterior soft tissue and a long-long stitch on the medial soft tissue. The attached medial soft tissue measures 3.4 (left-right) by 8.4 (anterior-roustabout crew leader ior) by 2.0 (superior-inferi or), and is [...] and the gingiva there is a 3.4 (anterior-roustabout crew leader ior by 1.8 (superior-inferi or by 0.8 [...] no other interosseous lesions are grossly noted Transmission And Protection Engineer sections are submitted as follows: L1: Anterior mucosal and soft tissue margin L2: Lateral mucosal and soft tissue margin L3: Medial mucosal and soft tissue margin L4: Posterior mucosal and soft tissue margin L5: Inferior soft tissue margin L6: Mass 2 L7-L9: Mass 1, deepest bone invasion in L9 L10: Mandibular interosseous lesion L11: Softened bone adjacent to lesion L12: Transmission And Protection Engineer sample of lesion Cold Time: 0 Marvel [...] Marvel Herrera MD 08/28/2025 11:21 AM EDT [facility] Comment:This is an appended report. These results have been appended to a previously preliminary verified report. Note: A resident was involved in the service. I attest I examined the relevant preparations for the specimens and confirmed the diagnosis or interpretation. 08/28/2025 11:21 AM EDT [facility] Comment:This is an appended [...] LAB PATHOLOGY ORDERABLES Edited Result - Final [facility] [address] [place] [address] * (ABNORMAL) Blood gas, arterial (08/19/2025 9:07 AM EDT) pH, Arterial 7.38 7.35 - 7.45 LAB HEMATOLOGY METHOD 08/19/2025 9:16 AM EDT [facility] pCO2, Arterial 44 32 - 45 mmHg LAB HEMATOLOGY METHOD 08/19/2025 9:16 AM EDT [facility] pO2, Arterial 195(H) 83 - 108 mmHg LAB HEMATOLOGY METHOD 08/19/2025 9:16 AM EDT [facility] SO2, Measured, Arterial 100(H) 94 - 98 % LAB HEMATOLOGY METHOD 08/19/2025 9:16 AM EDT [facility] Base Excess, Arterial 0.7 -2.0 - 3.0 mmol/L LAB HEMATOLOGY METHOD 08/19/2025 9:16 AM EDT [facility] Bicarbonate, Calculated, Arterial 26 22 - 26 mmol/L LAB HEMATOLOGY METHOD 08/19/2025 9:16 AM EDT [facility] Hematocrit, Whole Blood 36.2(L) 40.0 - 51.0 % LAB HEMATOLOGY METHOD 08/19/2025 9:16 AM EDT [facility] Sodium, Whole Blood 141 136 - 145 mmol/L LAB HEMATOLOGY METHOD 08/19/2025 9:16 AM EDT [facility] Potassium, Whole Blood 3.7 3.6 - 4.9 mmol/L LAB HEMATOLOGY METHOD 08/19/2025 9:16 AM EDT [facility] Chloride, Whole Blood 107 97 - 107 mmol/L LAB HEMATOLOGY METHOD 08/19/2025 9:16 AM EDT [facility] Glucose, Whole Blood 99 74 - 99 mg/dL LAB HEMATOLOGY METHOD 08/19/2025 9:16 AM EDT [facility] Ionized Calcium, Whole Blood 4.7 4.6 - 5.1 mg/dL LAB HEMATOLOGY METHOD 08/19/2025 9:16 AM EDT [facility] Lactate, Arterial, Whole Blood 1.1 0.5 - 1.6 mmol/L LAB HEMATOLOGY METHOD 08/19/2025 9:16 AM EDT [facility] Blood Arterial blood specimen / Unknown Arterial Puncture / Unknown 08/19/2025 9:07 AM EDT 08/19/2025 9:14 AM EDT us Kenneth Benavides CRNA LAB BLOOD ORDERABLES Final Result [facility] [address] [place] [address] * Type and Screen (08/19/2025 7:05 AM [...] ORD ERABLES Final Result Performing Organization Address City/[facility]/ZIP Co de Phone Number [facility] [address] [place] [address], documented in this encounter Visit Diagnoses Diagnosis [...] 0820, Until Tue08/30/25 at 1753, Routine, constipation bupivacaine-EPINEPHrine PF (Marcaine w/EPI) 0.25% -1:114298 injection As needed, Starting on Tue08/28/25 at 1710, Until Tue08/28/25 at 1731, Routine, Intraprocedure Given 08/28/2025 5:10 PM EDT 10 mL Right Outer Thigh EPINEPHrine PF (Sulfite-Free) (Adrenalin) injection As needed, Starting on Tue08/28/25 at 1710, Until Tue08/28/25 at 1731, Routine, Intraprocedure Given 08/28/2025 5:10 PM EDT 1 mL Right Anterior Thigh esomeprazole (NexIUM) packet for suspension 40 mg [...] Given 08/28/2025 4:52 AM EDT 50 mcg magnesium hydroxide (Milk of Magnesia) 400 MG/5ML [...] 0902 (Given - Provider: Marily Owens RN)1550 (JAN [...] Automatic Transfer Provider) 0919 (Given - Provider: rKis Douglas RN) 0820 (Given - Provider: Kris Douglas RN) bacitracin (425g jar) ointment 1 Jar (CANCELED) 1 Jar, Topical, Daily, First dose on Tue08/19/25 at 1900, Until Discontinued, Routine 0900 (Given - Provider: Marily Owens RN)1550 (JAN Hold - Provider: Automatic Transfer Provider - Reason: Patient in procedure)1922 ([facility] Unhold - Provider: Automatic Transfer Provider) 0924 (Given - Provider: Kris Douglas, RENATO) clindamycin (Cleocin) IV solution 900 mg (COMPLETED) 900 mg, Intravenous, Once, 1 dose, On Tue08/28/25 at 1815, Routine, Anesthesia Intraprocedure 1833 (New Bag - Provider: Sergio Melo, RN) esomeprazole (NexIUM) packet for suspension 40 mg 40 mg, Nasogastric, Daily, First dose on Tue08/22/25 at 0900, Until Discontinued 0858 (Given - Provider: Marily Owens RN)1550 (MAR Hold - Provider: Automatic Transfer Provider - Reason: Patient in procedure)1922 ([facility] Unhold - Provider: Automatic Transfer Provider) 09 (Given - Provider: Kris Douglas, RENATO) 0820 (Given - Provider: Kris Douglas, RENATO) gabapentin (Neurontin) capsule 300 mg 300 mg, Nasogastric, 3 times daily, First dose (after last modification) on Tue08/22/25 at 0900, Until Discontinued, Routine, Recovery(Phase II-Outpatient)/On Unit(Inpatient) 0859 (Given - Provider: Marily Owens, RENATO)1550 (MAR Hold - Provider: Automatic Transfer Provider - Reason: Patient in procedure)1600 (Dose Auto Held - Provider: Automatic Transfer Provider)1922 ([facility] Unhold - Provider: Automatic Transfer Provider)2048 (Given - Provider: Carly Perez) 0919 (Given - Provider: Kris Douglas, RENATO)1616 (Given - Provider: Kris Douglas, RENATO)2000 (Given - Provider: Carly Perez) 0820 (Given - Provider: Kris Douglas, RENATO)1600 (Canceled Entry - Provider: Automatic Discharge Provider [...] Discontinued, Routine 0858 (Given - Provider: Marily Owens, RENATO)1550 ([facility] Hold - Provider: Automatic Transfer Provider - Reason: Patient in procedure)192 ([facility] Unhold - Provider: Automatic Transfer Provider)2048 [...] - Provider: James Juan RN)1550 ([facility] Hold - Provider: Automatic Transfer Provider - Reason: Patient in procedure)192 ([facility] Unhold - Provider: Automatic Transfer Provider) 0505 (Given - Provider: Carly Perez) 0515 (Given - Provider: Carly Perez) lidocaine-EPINEPHrine (Xylocaine W/EPI) 1 %-1:[id number] injection 10 mL (COMPLETED) 10 mL, Infiltration, Once, 1 dose, On Jackie 08/29/25 at 0645, Routine 1126 (Given - Provider: Kris Douglas, RENATO) melatonin tablet 6 mg 6 mg, Nasogastric, Nightly, First dose on 08/24/25 at 2100, Until Discontinued, Routine 1550 ([facility] Hold - Provider: Automatic Transfer Provider - Reason: Patient in procedure)192 ([facility] Unhold - Provider: Automatic Transfer Provider)204 (Given - Provider: Carly Perez) 1999 (Given - Provider: Carly Perez) metoprolol tartrate (Lopressor) split tablet 12.5 mg 12.5 mg, Nasogastric, 2 times daily, First dose on Tue08/20/25 at 1415, Until Discontinued, Routine 0859 (Given - Provider: Marily Owens RN)1550 ([facility] Hold - Provider: Automatic Transfer Provider - Reason: Patient in procedure)1922 ([facility] Unhold - Provider: Automatic Transfer Provider)2047 (Given - Provider: Carly Perez) 918 (Given - Provider: Kris Douglas RN)1999 (Given [...] - Provider: Marily Owens RN)1550 ([facility] Hold - Provider: Automatic Transfer Provider - Reason: Patient in procedure)1922 ([facility] Unhold - Provider: Automatic Transfer Provider)2047 [...] - Provider: Marily Owens RN)1550 ([facility] Hold - Provider: Automatic Transfer Provider - Reason: Patient in procedure)1922 ([facility] Unhold - Provider: Automatic Transfer Provider)2047 (Given - Provider: Carly Perez) 918 (Given - Provider: Kris Douglas RN)1999 (Given [...] - Reason: Patient in procedure)1922 ([facility] Unhold - Provider: Automatic Transfer Provider)2027 (Given - Provider: Dex Perez) 075 (Given - Provider: Gigi Killian)2144 (Given - Provider: Marvel Mcrae) 08 (Given - Provider: Kaleigh Peterson) PRN Medication Order 08/28/2025 08/29/2025 08/30/2025 bisacodyl (Dulcolax) suppository 10 mg 10 mg, Rectal, Once as needed, 1 dose, Starting on Tue08/27/25 at 0820, Until Tue08/30/25 at 1753, Routine, constipation 1550 (JAN Hold - Provider: Automatic Transfer Provider - Reason: Patient in procedure)1922 ([facility] Unhold - Provider: Automatic Transfer Provider) bupivacaine-EPINEPHrine PF (Marcaine w/EPI) 0.25% -1:910646 injection (CANCELED) As needed, Starting on Tue08/28/25 [...] 4 1747 (Given - Provider: Sergio Melo RN)1754 (Given - Provider: Sergio Melo RN) magnesium hydroxide (Milk of Magnesia) 400 MG/5ML suspension 30 mL 30 mL, Oral, Daily PRN, Starting on 08/25/25 at 1438, Until Tue08/30/25 at 1753, Routine, constipation 1550 ([facility] Hold - Provider: Automatic Transfer Provider - Reason: Patient in procedure)192 ([facility] Unhold - Provider: Automatic Transfer Provider) ondansetron (Zofran) 4 MG/5ML solution 4 mg(Linked Group 2) 4 mg, Nasogastric, Every 6 hours PRN, Starting on 08/25/25 at 0637, Until Tue08/30/25 at 1753, Routine, Recovery(Phase II-Outpatient)/On Unit(Inpatient), nausea, vomiting 1550 ([facility] Hold - Provider: Automatic Transfer Provider - Reason: Patient in procedure)1922 ([facility] Unhold - Provider: Automatic Transfer Provider) ondansetron (Zofran) injection 4 mg(Linked Group 2) 4 mg, Intravenous, Every 6 hours PRN, Starting on 08/25/25 at 0637, Until Tue08/30/25 at 1753, Routine, Recovery(Phase II-Outpatient)/On Unit(Inpatient), vomiting, nausea 1550 ([facility] Hold - Provider: Automatic Transfer Provider - Reason: Patient in procedure)1922 ([facility] Unhold - Provider: Automatic Transfer Provider) oxyCODONE (Roxicodone) immediate release tablet 10 mg(Linked Group 3) 10 mg, Nasogastric, Every 4 hours PRN, Starting on 08/25/25 at 0638, Until Tue08/30/25 at 1753, Routine, severe pain 0452 (Given - Provider: James Juan RN)1550 ([facility] Hold - Provider: Automatic Transfer Provider - Reason: Patient in procedure)192 ([facility] Unhold - Provider: Automatic Transfer Provider)2048 [...] documented as of this encounter Care Teams Kinder Teacher Relationship Specialty Start Date End Date Christina Arteaga APRN [address] [place] [id number] PCP - General 06/20/25 Maxwell White DMD Darvin Cano [address] [place] [address] Referring Physician 06/24/25 documented as of this encounter
--- OUTSIDE RECORDS SUMMARY | 2025-08-28 15:34 | XMS_ITS | Encounter Summary ---
Author Organization [facility] Address [address] 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] Procedures SC BONE-SKIN GRAFT, MICROVASCULAR SC RECMPL WND HEAD,FAC,HAND 2.6-7.5 CM SC REPR,FACE,GENITAL,HAND,FT+5 CMCM/< SC LAYR CLOS WND REST BODY 12.6-20 CM SC RECONSTR MANDIBLE,BONE PLATE SC REMV MALIG JAW BONE RADICAL SC REMOVAL NODES, NECK,CERV CMPLT SC PART REMOVAL TONGUE,<1/2 SC BONE-SKIN GRAFT, MICROVASCULAR SC RECONSTR MANDIBLE,BONE PLATE SC RECMPL WND HEAD,FAC,HAND 2.6-7.5 CM SC REPR,FACE,GENITAL,HAND,FT+5 CMCM/< SC LAYR CLOS WND REST BODY 12.6-20 CM SC TRACHEOSTOMY, PLANNED Left mandibular reconstruction with right [...] DISSECTION, NECK, RADICAL GLOSSECTOMY Marvin Santana MD [address] [address] Phone: tel: fax: [facility] [address] [place] [address] Phone: tel: Referral ID Status Reason Start Date Expiration Date Visits Re quested Visits Authorized [id number] 1 1 Encounter Details Date Type Department Care Team (Late st Contact Info) Description 08/28/2025 4:34 PM EDT Anesthesia Event [facility] [address] [place] [address] Twin Hernandez MD [address] [place] [address] Harika Naranjo, CONSTRUCTION DRILLER [address] [place] [address] Anesthesia Record Procedure Summary Procedure Name Responsible Anesthesiologist Anesthesia Start Time Anesthesia Stop Time Split thickness skin graft to right lower extremity flap donor site (Right: Leg Lower) Twin Hernandez MD 08/28/25 1634 08/28/25 1739 Events Date Time Event Comment 08/28/2025 1601 1634 An Start The patient was reevaluated immediately before sedation and remains eligible for anesthesia plan. 1635 In Room 1636 An Start Data 1639 An Induction The patient was reevaluated immediately before moderate or deep sedation use and before anesthesia induction. 1639 David Pt has trach cu ffed 1645 Anesthesia Ready 1651 Proc Start 1700 Out of Room 1725 Proc Fin 1728 An Extubation 1729 an stop data 1739 Handoff to Receiving I compl eted my handoff to the receiving clinician during which we: 1. Identified the patient 2. Identified the responsible provider 3. Reviewed the pertinent medical history 4. Discussed the surgical course 5. Reviewed intra-op anesthesia management and issues during anesthesia 6. Set expectations for post-procedure period 7. Allowed opportunity for questions and acknowledgement of understanding. 173 An Stop Meds Name Total midazolam (Versed) injection 1 mg/mL 2 m g fentaNYL (Sublimaze) injection 50 mcg/mL 100 mcg lidocaine PF (Xylocaine-MPF) 2% 100 mg propofol (Diprivan) injection 10 mg/mL 1 00 mg ceFAZolin (Ancef) vial 1 g 2 g lactated Ringer's infusion 250 mL * Agents No agents on file. * [...] nare 08/19/25 175 by Bob Alfonso RN Wound 08/28/25; 1704; N; Y es; Surgical; Graft (Donor site); Leg; Anterior, Right, Upper 08/28/25 170 by Tee Lopez RN Peripheral IV Placement Date: 05/08; Placement Time: 0704; Catheter Size: 18 G; Orientation: Right; Location: Antecubital; Site Prep: Chlorhexidine ; Local Anesth: None; Technique: Anatomical landmarks; Inserted by: Mai Mayberry RN; Insertion Attempts: 2; Patient Tolerance: Tolerated well; Removal Date: 08/30/25; Removal Time: 1549; Removal Reason: Discharge 08/19/25 0704 by Betsy Mayberry RN 08/30/25 1549 by Kris Dougals RN Peripheral IV Placement Date: 05/08; Placement Time: 0829; Catheter Size: 18 G; Orientation: Left; Location: Hand; Site Prep: Alcohol; Insertion Attempts: 1; Removal Date: 08/30/25; Removal Time: 1548; Removal Reason: Discharge 08/19/25828 by Kenneth Benavides CRNA 08/30/25 154 by Kris Douglas RN Closed/Suction Drain 08/19/25; 1650; No; Anterior, Right; Neck; Bulb; 15 Fr. 08/19/25 165 by Stacey Faulkner RN 08/28/25 173 by Sergio Melo RN Flap/Graft 08/19/25; 1816; Ante rior, Left, Lower; 08/28/25; 1734 (not in place upon arrival to pacu) 08/19/25 181 by Bob Alfonso RN 08/28/251734 by Sergio Melo RN documented in this [...] any time in the past 12 m [facility], were you homeless or living in a senior living (including now)? No 08/21/2025 [facility] Utilities Answer Date Recorded In [...] Date of Assessment Author No Risk Indicated 08/28/2025 4:05 PM EDT Billie Canas RN * Question Answer Date of Assessment Author 1. Wish to be (Past 1 Month) No 025 4:05 PM EDT Billie Canas, RENATO 2. Non-Specific Active Suici violet Thoughts (Past 1 Month) No 08/28/2025 4:05 PM EDT Mikaela Canas RN 6. Suicidal Behavior (Lifetime) No 4:05 PM EDT Billie Canas RN documented as of this encounter Miscellaneous Notes * Anesthesia Postprocedure Evaluation - Isha Linder MD - 08/28/2025 5:39 PM EDT Patient: Saravanan Perez Anesthesia Type: general Vitals Value Taken Time BP 128/77 08/28/25 17:39 Temp 36.8 08/28/25 17:39 Pulse 76 08/28/25 17:39 Resp 16 08/28/25 17:39 SpO2 100 08/28/25 17:39 Anesthesia Post Evaluation Patient location during evaluation: PACU Patient participation: complete - patient participated Level of consciousness: awake Pain management: adequate (pain score 0-3) Airway patency: natural airway Cardiovascular status: acceptable and hemodynamically stable Respiratory status: acceptable and blow-by oxygen Hydration status: acceptable Nausea/Vomiting: No No notable events documented. Cosigned by Twin Hernandez MD at 08/31/2025 9:46 AM EDT Associated attestation - Twin Hernandez MD - 08/31/2025 9:46 AM EDT I agree with the findings and care plan documented in the postprocedure evaluation note. * Anesthesia Preprocedure Evaluation - Twin Hernandez MD - 08/28/2025 11:03 AM EDT Procedure Information Date/Time: 08/28/25 1430 Procedure: Split thickness skin graft to right lower extremity flap donor site (Right) - [place] inpatient. Waitlist 08/28. Time: 30 minutes Location: [facility] [place] [facility] Surgeons: Marvin Santana MD HPI Carlito Perez is a 54 y.o. male with body mass index is 27.27 kg/m??. who presents with Floor of mouth squamous cell carcinoma now for above procedure. PMH: CAD (4 stents, 2022), tachycardia, HLD, hypothyroidism 1) Left segmental mandibulectomy, left selective neck dissection, extraction of all remaining teeth, partial left glossectomy, tracheostomy creation with OMFS on 08/19/2025 2) Fibula free flap reconstruction with Plastic surgery on 08/19/2025 AIRWAY HISTORY: Date Difficult Airway Blade Size ETT Size C-L Class Final Type Intubation Method 08/19/25 No 3 6.5 grade IIa - partial view of glottis endotracheal airway direct laryngoscopy NPO STATUS: since 0000 Activity Level/METS:. >4 prior to admission Type & Screen Expires: 08/31 Lab Results Component Value Date ABO A Negative 08/28/2025 ALLERGIES Allergies[1] MEDICATIONS Outpatient Current Outpatient Medications Medication Instructions acetaminophen (TYLENOL) 1,000 mg, Every 6 hours PRN ASPIRIN 81 PO aspirin 81 mg, Daily atorvastatin (LIPITOR) 20 mg, Daily Cranberry 125 MG tablet 1 tablet, Daily diphenhydrAMINE (BENADRYL) 50 mg, Oral, Once PRN Procedure ibuprofen 200 mg, Every 6 hours PRN isosource 1.5 Sony/mL liquid 7 Cans, Nasogastric, 5 times daily, Equivalent Substitutions Allowed? No levothyroxine (SYNTHROID, LEVOXYL) 50 mcg, Daily before breakfast metoprolol succinate XL (TOPROL-XL) 50 mg, Daily Multiple Vitamin (MULTIVITAMIN ADULT PO) Multiple Vitamin (multivitamin) tablet 1 tablet, Daily omeprazole (PRILOSEC) 40 mg, Daily predniSONE (DELTASONE) 50 mg, Oral, As needed, To be given at 13 hours, 7 hours, and 1 hour BEFORE contrast injection. Exam scheduled for 08/09/25 (Date/Time). prochlorperazine (COMPAZINE) 10 mg, Oral, Every 6 hours PRN ramipril (ALTACE) 2.5 mg, Daily Scheduled Current Scheduled Medications[2] PRNs Current PRN Medications[3] SURGICAL HX: Surgical History[4] SOCIAL HX: Social History[5] OBJECTIVE DATA Blood pressure 136/78, pulse 82, temperature 36.3 ??C (97.4 ??F), resp. rate 18, height 1.803 m (5'11 ), weight 88.7 kg (195 lb 8.8 oz), SpO2 100%. LABS Lab Results Component Value Date WBC 10.56 (H) 08/28/2025 HGB 9.5 (L) 08/28/2025 HCT 28.8 (L) 08/28/2025 MCV 94 08/28/2025 PLT 552 (H) 08/28/2025 Lab Results Component Value Date CALCIUM 9.3 08/28/2025 BUN 18 08/28/2025 CREATININE 0.62 (L) 08/28/2025 BCR 29 08/28/2025 NA 136 08/28/2025 K 4.2 08/28/2025 CL 99 08/28/2025 CO2 28 08/28/2025 ANIONGAP 9 08/28/2025 No results found for: APTT , INR Lab Results Component Value Date GLUCOSE 101 (H) 08/28/2025 EKG No results found for this or any previous visit (from the past 4464 hours). ECHO 04/2023 ?? Left Ventricle: The left ventricular systolic [...] is no recent study available for direct ippp-ki-dkrt comparison. CXR: Physical Exam Airway Mallampati: unable to assess Tracheostomy tube present Cardiovascular Rhythm: regular Rate: normal Dental Pulmonary Breath sounds clear to auscultation Comments: 28% trach cokllar Neurological Oriented: normal to time, normal to place and normal to person Skin Musculoskeletal Extremities Anesthesia Plan ASA 3 Anesthesia technique(s) discussed with the patient/family: general Anesthesia plan agreed upon was: general Anesthetic plan and risks discussed with patient. ROS Anesthesia: Date of last anesthetic: Last GA 08/19- denies complications Does not have a history of anesthetic complications, malignant hyperthermia, obstructive sleep apnea and PONV. Anesthesia ROS additional comments: prior traumatic intubation with one of his vocal cords removed, requiring tracheostomy ~ 30 yr ago Cardiovascular: CAD (stents x 4 in 2022) and hyperlipidemia. Does not have CHF, murmur, pacemaker, past [place] or syncope. hypertension: Cardio additional comments: . Respiratory: no asthma: COPD: HEENT: chipped teeth, loose teeth and missing [...] MRSA or tuberculosis. Hem/Lymph ROS additional comments: Endocrine/Metabolic: does not have diabetes mellitus. thyroid disorder (hypothyroid on levothyroxine). [1] Allergies Allergen Reactions Fish Allergy Swelling Shellfish Allergy Anaphylaxis Penicillins Unknown - Patient states they do not know rxn details Pt stated it was a childhood allergy. Tolerated ampicillin-sulbactam 08/20/2025-08/23/2025 [2] acetaminophen, 1,000 mg, Nasogastric, q6h JOVANNI aspirin, [...] BID sodium chloride, 3 mL, Nebulization, BID [3] PRN medications: bisacodyl, magnesium hydroxide, [DISCONTINUED] ondansetron ODT OR ondansetron OR ondansetron, oxyCODONE OR oxyCODONE [4] Past Surgical History: Procedure Laterality Date APPENDECTOMY 1979 CARDIOTHORACIC PROCEDURE stents CAROTID STENT 04/26/2023 COLONOSCOPY 2023 CORONARY STENT PLACEMENT [id number] ORTHOPEDIC SURGERY repair to clavical OTHER SURGICAL HISTORY appendectomy, vasectomy THROAT SURGERY repair vocal chords [5] Social History Tobacco Use Smoking status: [...] Description 10/08/2025 9:15 AM EST Office Visit [facility] Plastic & Reconstructive Surgery [address] [place] [address] Marvin Santana MD [address] [phone] 10/08/2025 10:30 AM EST Office Visit [facility] customer experience analyst [facility] [address] [place] [address] Alvaro Adrian DMD, MD [address] [place] [address] documented as of this encounter Visit Diagnoses Not on filedocumented in this encounter Administered Medications Inactive Administered Medications - up to 3 most recent administrations Medication Order MAR Action Action Date Dose Rate Site ceFAZolin (Ancef) injection Intravenous, As needed, Starting on Tue08/28/25 at 1645, Until Tue08/28/25 at 1739, Routine, Anesthesia Intraprocedure Given 08/28/2025 4:45 PM EDT 2 g fentaNYL (Sublimaze) injection Intravenous, As needed, Starting on Tue08/28/25 at 1645, Until Tue08/28/25 at 1739, Routine, Anesthesia Intraprocedure Given 08/28/2025 4:45 PM EDT 100 mcg lactated Ringer's infusion Intravenous, Continuous PRN, Starting on Tue08/28/25 at 1634, Until Tue08/28/25 at 1739, Routine New Bag 08/28/2025 4:34 PM EDT lidocaine PF (Xylocaine) 2 % injection Intravenous, As needed, Starting on Tue08/28/25 at 1639, Until Tue08/28/25 at 1739, Routine, Anesthesia Intraprocedure Given 08/28/2025 4:39 PM EDT 100 mg midazolam (Versed) injection Intravenous, As needed, Starting on Tue08/28/25 at 1634, Until Tue08/28/25 at 1739, Routine, Anesthesia Intraprocedure Given 08/28/2025 4:34 PM EDT 2 mg propofol (Diprivan) injection Intravenous, As needed, Starting on Tue08/28/25 at 1639, Until Tue08/28/25 at 1739, Routine, Anesthesia Intraprocedure Given 08/28/2025 4:39 PM EDT 100 mg documented in this encounter Additional Health Concerns Assessment Noted Time A fall risk assessment has been complete d for the patient 08/09/2025 1:39 PM EDT A Body Mass Index follow-up plan has been documented for the patient 08/30/2025 1:58 PM EDT documented as of this encounter Care Teams Camouflage Assembler Relationship Specialty Start Date End Date Christina Arteaga APRN [address] [place] [address] PCP - General 06/20/25 Maxwell White DMD [address] [place] [address] Referring Physician 06/24/25 documented as of this encounter
--- OUTSIDE RECORDS SUMMARY | 2025-09-03 08:15 | XMS_ITS | Encounter Summary ---
Author Organization [facility] Address [address] [place] [address] Care Team Providers Care Shooting Gallery Operator Name Role Phone Christina Arteaga TERE Primary Care Provider [phone] Maxwell White DMD Unavailable Reason for Visit * Consultation (Urgent) - Closed Specialty Diagnoses / Procedures Referred By Fausto honeycutt Referred To Contact Plastic Surgery Diagnoses Wound of right lower extremity, initial encounter Alvaro Adrian DMD, [address] [place] [address] Phone: tel: fax: Referral ID Status Reason Start Date Expiration Date V isits Requested Visits Authorized [id number] Closed Specialty Services Required 08/30/2025 03/01/2027 1 1 Encounter Details Date Type Department Care Team (Late st Contact Info) Description 09/03/2025 9:15 AM EDT Office Visit [facility] Plastic & Reconstructive Surgery [address] [place] [phone] Marvin Santana MD [address] [place] [address] Floor of mouth squamous cell [...] were you homeless or living in a residential (including now)? No 08/21/2025 [facility] Utilities Answer Date Recorded In the past 12 months has th e [employer], gas, oil, or water [employer] threatened to shut off services in your [...] shellfish, penicillan CAD (coronary artery disease) Cancer ([facility]) [id number] Coronary artery calcification Dental disease chipped teeth, [...] vac discontinued. Will see Dr. Adrian and [facility]FS this Tuesday documented in this encounter Plan of Treatment Upcoming Encounters Date Type Department Care Team (Late st Contact Info) Description 10/08/2025 9:15 AM EST Office Visit [facility] Plastic & Reconstructive Surgery [address] [place] [phone] [facility] [address] [phone] 10/08/2025 10:30 AM EST Office Visit [facility] shovel log loader operator [facility] [address] [facility] [address] [place] [phone] [place] [address] [place] [phone] documented as of this encounter Visit Diagnoses [...] documented as of this encounter Care Teams Shooting Gallery Operator Relationship Specialty Start Date End Date Christina Arteaga APRN [address] [place] [address] PCP - General 06/20/25 Maxwell White, DMD [facility] [address] [place] [address] Referring Physician 06/24/25 documented as of this encounter
--- OUTSIDE RECORDS SUMMARY | 2025-09-06 12:00 | XMS_ITS | Encounter Summary ---
Author Organization [facility] Address [address] [place] [address] Care Team Providers Care Boiler Plant Operator Name Role Phone Christina Arteaga TERE Primary Care Provider [phone] Maxwell White DMD Unavailable [phone] Reason for Visit * Reason Comments Follow-up Encounter Details Date Type Department Care Team ([facility] Contact Info) Description 09/06/2025 1:00 PM EDT Office Visit [facility] [address] [place] [phone] Alvaro Adrian DMD, MD [address] [facility] [address] [place] [address] Squamous cell carcinoma of mandible (Primary Dx) Social History Tobacco Use Types Packs/Day Years Used Date Smoking Tobacco: Every Day Cigarettes 1 40.9 Started: 1984 Passive Smoke Exposure: Current Smokeless Tobacco: Former Snuff, Chew Tobacco Cessation:Ready to Q uit: Yes; Counseling Given: No Alcohol Use Standard Drinks/Week Comments Never 0 [...] in the past [address] [facility], were you homeless or living in a detention (including now)? No 08/21/2025 [facility] Utilities Answer Date Recorded In the [...] Sign Reading Time Taken Comments Blood Pressure 94/62 09/06/2025 12:48 PM EDT Pulse 86 09/06/2025 12:48 PM EDT Temperature 36.7 C (98.1 F) 09/06/2025 12:48 PM EDT Respiratory Rate 12 09/06/2025 12:48 PM EDT Oxygen Saturation 97% 09/06/2025 12:48 PM EDT Inhaled Oxygen Concentration - - Weight 84.9 kg (187 lb 2.7 oz) 09/06/2025 12:48 PM EDT Height - - Body Mass Index 26.11 09/03/2025 9:02 AM EDT documented in this encounter Miscellaneous Notes * Progress Notes - Wyatt Faulkner MD - 09/06/2025 1:00 PM EDT Oral & Maxillofacial Surgery - Head & Neck Oncology Follow-Up Note Operation: Tracheotomy, partial glossectomy left anterior tongue, left segmental mandibulectomy, left selective neck dissection, extraction of #2,3,5,6,7,8,9,10,11,12,13,15,28,29,[address] [facility] by Dr Santana on 08/19/25 followed by [facility] on 08/28/25 Diagnosis: pT4a, pN1, 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 male who presents for post-op f/u. Patient reports that he is healing well. Reports that he is tolerating his tube feeds well. Patient states that he has tracheostomy site is healing well, without any leakage of air. He is able to walk. He reports he was evaluatedby Dr. Santana this week and recommended to [facility] the [facility]. They report that they have not changed leg dressing for 3 days. He reports that he continues to slowly decrease in his weight. Objective: Vitals: 09/06/25 1248 BP: 94/62 Pulse: 86 Resp: 12 Temp: 36.7 ??C (98.1 ??F) SpO2: 97% PHYSICAL EXAM Gen: NAD Head/Face: NCAT Oral: DENNIS 35 mm. Intraoral glossectomy site healing well. Free flap reconstruction of left mandiblestable, good turgor, no sign of congestion within the flap. Neck: Neck soft, no palpable lymphadenopathy. Neck incision is clean, dry, healing with minimal scarring. Tracheostomy site healing with minimal scarring, no air leak identified. MSK: FROM x 4, no abnormaility noted, right lower extremity flap harvest site healing well, skin graft healing appropriately. Skin: No rashes, excoriations, discoloration noted Neuro: CN II-XII grossly intact bilaterally Assessment/Plan: Carlito Perez is a 54 y.o. 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 - Discussed with the patient that he is healing well and should continue to do so. We discussed results of final pathology today that demonstrated 3 separate primaries, with worst 1 in the left mandible that demonstrated invasion into the mandibular bone. Discussed that there was a one positive lymph node without extranodal extension, WPOI 5 and lymphovascular invasion. Discussed that patient is recommended to proceed with radiation and chemotherapy but not immunotherapy after his surgical healing is completed. Discussed that referral was placed and he will need to be evaluated by radiation and a local medical oncologist. F/U 2 weeks Wyatt Faulkner MD Cosigned by Alvaro Adrian DMD, MD at 09/11/2025 12:13 PM EDT Associated attestation - Alvaro Adrian DMD, MD - 09/11/2025 12:13 PM EDT I saw and evaluated the patient in conjunction with the resident and performed beck portions of the history and exam. The residents note reflects the services I personally performed and the decisions made by me. I agree with the resident's radiographic interpretation. Pt was presented at Head/Neck TB with recommendations of post adjuvant radiation and chemotherapy due to his [id number] disease with adverse features (WPOI 5, lymphovascular invasion). Will not recommend immunotherapy per the Keynote 689 of the pts post infusion scans showing progression of disease while on IO. Referrals placed for local Med/Rad Onc. Alvaro Adrian DMD, MD documented in this encounter Plan of Treatment Upcoming Encounters Date Type Department Care Team (Late st Contact Info) Description 10/08/2025 9:15 AM EST Office Visit [facility] Plastic & Reconstructive Surgery [address] [place] [phone] Marvin Santana MD [address] [phone] 10/08/2025 10:30 AM EST Office Visit [facility] marketing strategist Faculty [facility] [address] [facility] [address] [place] [address] Alvaro Adrian DMD, MD [address] [facility] [address] [place] [phone] documented as of this encounter Visit Diagnoses Diagnosis Squamous cell carcinoma of mandible- Primary documented in this encounter Additional Health Concerns Assessment Noted Time A fall risk assessment has been complete d for the patient 09/06/2025 12:49 PM EDT A Body Mass Index follow-up plan has been documented for the patient 09/04/2025 9:49 AM EDT documented as of this encounter Care Teams Boiler Plant Operator Relationship Specialty Start Date End Date Christina Arteaga APRN [address] [place] [address] PCP - General 06/20/25 Maxwell White DMD [address] [facility] [address] [place] [address] Referring Physician 06/24/25 documented as of this encounter
--- OUTSIDE RECORDS SUMMARY | 2025-09-17 09:15 | XMS_ITS | Encounter Summary ---
Author Organization Healthcare Address [address] [place] [address] Care Team Providers Care Manager Corporate Strategy Name Role Phone Chandler Christina CARRANZA Primary Care Provider [phone] Maxwell White DMD Unavailable [phone] Encounter Details Date Type Department Care Team (Late st Contact Info) Description 09/17/2025 9:15 AM EST Office Visit [facility] Plastic & Reconstructive Surgery [address] [place] [phone] Marvin Santana MD [address] [phone] Floor of mouth squamous cell carcinoma (Primary [...] any time in the past 12 m [facility], were you homeless or living in a fdc (including now)? No 08/21/2025 [facility] Utilities Answer Date Recorded In the past 12 months has th e [employer], gas, oil, or water company threatened to [...] Description 10/08/2025 9:15 AM EST Office Visit [facility] Plastic & Reconstructive Surgery [address] [place] [phone] Marvin Santana MD [address] [place] [address] 10/08/2025 10:30 AM EST Office Visit [facility] [address] [facility] [address] [place] [address] Alvaro Adrian DMD, MD 2195 [facility] [address] [place] [address] documented as of this encounter [...] documented as of this encounter Care Teams Manager Corporate Strategy Relationship Specialty Start Date End Date Christina Arteaga APRN [address] [place] [address] PCP - General 06/20/25 Maxwell White DMD [address] [place] [address] [facility] [address] [place] [address] Referring Physician 06/24/25 documented as of this encounter
--- OUTSIDE RECORDS SUMMARY | 2025-09-17 13:00 | XMS_ITS | Encounter Summary ---
Author Organization Healthcare Address [address] [place] [address] Care Team Providers Care Financial Analyst Intern Name Role Phone Christina Arteaga TERE Primary Care Provider [phone] Maxwell White DMD Unavailable [phone] Encounter Details Date Type Department Care Team (Late st Contact Info) Description 09/17/2025 1:00 PM EST Office Visit [facility] studio coordinator Faculty Clinic [address] [facility] [address] [place] [address] Alvaro Adrian DMD, MD [address] [place] [address] Squamous cell carcinoma of mandible [...] any time in the past 12 m [facility], were you homeless or living in a long-term (including now)? No 08/21/2025 [facility] Utilities Answer Date Recorded In the past 12 months has th e [employer], gas, oil, or water company threatened to [...] appt w/Dr. Santana and Dr. Adrian at [facility] to reduce travel burden. Sofy/Nguyễn Cosigned by [...] [facility] Pl[facility] Surgery [address] [place] [address] Marvin Santana MD [address] [address] 10/08/2025 10:30 AM EST Office Visit [facility] studio coordinator Faculty Clinic [address] [facility] [address] [place] [address] Alvaro Adrian DMD, MD [address] [facility] [address] [place] [address] documented as of this encounter [...] documented as of this encounter Care Teams Financial Analyst Intern Relationship Specialty Start Date End Date Christina Arteaga BACKPACKERS MANAGER [address] [place] [address] PCP - General 06/20/25 Maxwell White DMD [address] [facility] [address] [place] [address] Referring Physician 06/24/25 documented as of this encounter
--- NOTE | 2025-09-26 10:59 | PC.NURSE ---
1059-collected labs via venipuncture stick in left ac with butterfly needle; pt to d/c home
--- OUTSIDE RECORDS SUMMARY | 2025-09-26 11:10 | XMS_ITS | Encounter Summary ---
Author Organization Healthcare Address [address] [place] [address] Care Team Providers Care Leather Repairer Name Role Phone Christina Arteaga APRN Primary Care Provider [phone] ChristopherMaxwell Francy DMD Unavailable [phone] Encounter Details Date Type Department Care Team (Latest Contact Info) Description 07/30/2025 Travel Social History Tobacco Use Types Packs/Day Years Used Date Smoking Tobacco: Every Day Cigarettes 1 40.9 Started: 1984 Passive Smoke Exposure: Current Smokeless Tobacco: Current Snuff, Chew Alcohol Use Standard Drinks/Week Comments [...] on file documented as of this encounter Plan of Treatment Upcoming Encounters Date Type Department Care Team (Late st Contact Info) Description 10/08/2025 9:15 AM EST Office Visit [facility] Plastic & Reconstructive Surgery [address] [place] [phone] Marvin Santana MD [address] [place] [phone] 10/08/2025 10:30 AM EST Office Visit [facility] brooch maker novelty Faculty Clinic [address] [facility] [address] [place] [address] Alvaro Adrian DMD, MD [address] [facility] [address] [place] [address] documented as of this encounter Visit Diagnoses Not on filedocumented in this encounter Additional Health Concerns Assessment Noted Time A fall risk assessment has been complete d for the patient 07/30/2025 8:49 AM EDT A Body Mass Index follow-up plan has been documented for the patient 07/31/2025 9:17 AM EDT documented as of this encounter Care Teams Leather Repairer Relationship Specialty Start Date End Date Christina Arteaga APRN [address] [place] [address] PCP - General 06/20/25 Maxwell White DMD [facility] [address] [place] [address] Referring Physician 06/24/25 documented as of this encounter
--- OUTSIDE RECORDS SUMMARY | 2025-09-26 11:10 | XMS_ITS | Encounter Summary ---
Author Organization Healthcare Address [address] [place] [address] Care Team Providers Care Wet Process Assistant Head Miller Name Role Phone Christina Arteaga APRN Primary Care Provider [phone] Maxwell White DMD Unavailable Encounter Details Date Type Department Care Team (Late st Contact Info) Description 09/20/2025 Telephone [facility] Plastic & Reconstructive Surgery [address] [place] [address] Marvin Santana MD [address] [address] Social History Tobacco Use Types Packs/Day Years [...] any time in the past 12 m [facility], were you homeless or living in a senior living (including now)? No 08/21/2025 [facility] Utilities Answer Date Recorded In the [...] as of this encounter Miscellaneous Notes * Telephone Encounter - Caridad Varela - 09/20/2025 3:01 PM EST Tried calling patient to let them know that Dr Santana has sent in another script * Telephone Encounter - Caridad Varela Ajay - 09/20/2025 2:53 PM EST Sent an email * Telephone Encounter - Henrietta Mcclendonajay Martinez - 09/20/2025 1:15 PM EST Clinical Concern/Question Reason for Call: pt has a week left of tylenol at increased dosage and wants to know if they will need a refill on that? Pharmacy: [facility] please call Best contact number: [phone] Optimal time of day to reach caller: ANYTIME Additional comments/information from caller: Not Applicable Note: Please do not reply to this message. Follow-up communication and further actions as a result of this message need to be communicated with the patient directly, if the patient is not active onMyChart. If the patient is active on MyChart, they will receive notification of the communication/outcome via [employer]. documented in this encounter Plan of Treatment Upcoming Encounters Date Type Department Care Team (Late st Contact Info) Description 10/08/2025 9:15 AM EST Office Visit [facility] Plastic & Reconstructive Surgery [address] [place] [address] Marvin Santana MD [address] [phone] 10/08/2025 10:30 AM EST Office Visit [facility] bliss press operator Faculty [facility] [address] [place] [address] Alvaro Adrian DMD, MD 2195 [facility] [address] [place] [address] documented as of this encounter Visit Diagnoses Not on filedocumented in this encounter Additional Health Concerns Assessment Noted Time A fall risk assessment has been complete d for the patient 09/17/2025 8:59 AM EST A Body Mass Index follow-up plan has been documented for the patient 09/24/2025 1:07 PM EST documented as of this encounter Care Teams Wet Process Assistant Head Miller Relationship Specialty Start Date End Date Christina Arteaga APRN [address] [place] [address] PCP - General 06/20/25 Maxwell White, CLEM [facility] [address] [place] [address] Referring Physician 06/24/25 documented as of this encounter
--- OUTSIDE RECORDS SUMMARY | 2025-09-26 11:10 | XMS_ITS | Encounter Summary ---
Author Organization Healthcare Address [address] [place] [address] Care Team Providers Care Wood Experimental Mechanic Name Role Phone Christina Arteaga TERE Primary Care Provider [phone] Maxwell White DMD Unavailable [phone] Encounter Details Date Type Department Care Team (Late st Contact Info) Description 07/02/2025 Lab Requisition [facility] [address] [place] [address] Nalini Mcrae, DMD 800 [facility] [address] [place] [phone] Unspecified lesions of oral mucosa Social History Tobacco Use Types Packs/Day Years Used Date Smoking Tobacco: Never Assessed AUDIT-C Answer Date Recorded Q1: How often [...] Description 10/08/2025 9:15 AM EST Office Visit [facility] Plastic & Reconstructive Surgery [address] [place] [phone] Marvin Santana MD [address] [facility] 2nd [place] [address] 10/08/2025 10:30 AM EST Office Visit [facility] steel pickler Faculty Clinic [address] [facility] [address] [place] [address] Alvaro Adrian DMD, MD [address] [place] [address] documented as of this encounter Procedures Procedure Name Priority Date/Time Associated Diagnosis Comments SURGICAL PATHOLOGY CONSULT Routine 06/25/2025 Unspecified lesions of oral mucosa documented in this encounter Results * Surgical Pathology Consult (06/25/2025) Case Report Sugical Pathology Consult Case: [id number] Authorizing Provider: Nalini Mcrae DMD Collected: 06/25/2025 Ordering Location: [facility] Lab Received: 07/02/2025 0734 Pathologist: Timothy Chacon MD Specimen: [id number] 3:35 PM EDT [facility] Final Diagnosis A. 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: COMBINED POSITIVE SCORE (CPS)*: 75 (SEE BELOW FOR ADDITIONAL DETAILS) 3:35 PM EDT [facility] at 1535 EDT Clinical Information K13.70 - Unspecified lesions of oral mucosa [ICD-10-CM] 3:35 PM EDT [facility] Special and Immunohistochemical Stains - PD-L1 IHC 22C3 pharmDx* is performed and the results are as follows: Combined Positive Score (CPS)*: 75 Expression level: PD-L1 Expression (CPS greater than or equal to 1) Comments to treating physician: Pembrolizumab is indicated for treatment of patients with head and neck squamous cell carcinoma (HNSCC), gastric and gastroesophageal junction (GEJ) adenocarcinoma whose tumors express PD-L1 (CPS >= 1) and esophageal squamous cell carcinoma (CPS>=10), respectively, as determined by an FDA-approved test. The PD-L1 expression in head and neck squamous cell carcinomas, gastric and gastroesophageal junction (GEJ) adenocarcinomas and esophageal squamous cell carcinomas is determined by using Combined Positive Score (CPS), which is the number of PD-L1 positive staining cells (tumor cells showing partial or complete linear membrane staining equal to or greater than 1+, plus lymphocytes and macrophages within tumor nests and adjacent supporting tumor stroma, as determined by assay stabilizing machine operator, showing partial or complete linear membrane and/or cytoplasmic staining equal or greater than 1+) divided by the total number of viable tumor cells multiplied by 100. For head and neck squamous cell carcinoma (HNSCC), gastric and gastroesophageal junction (GEJ) adenocarcinoma the specimen will be reported to show P D-L1 Expression if the CPS is greater than or equal to 1. The specimen will be reported to show N o PD-L1 Expression if the CPS is less than 1. For esophageal squamous cell carcinoma the specimen will be reported to show P D-L1 Expression if the CPS is greater than or equal to 10. The specimen will be reported to show N o PD-L1 Expression if the CPS is less than 10. Expression level: Head and neck squamous cell carcinoma (HNSCC), gastric and gastroesophageal junction (GEJ) adenocarcinoma: >No PD-L1 Expression (CPS less than 1) >PD-L1 Expression (CPS greater than or equal to 1) Esophageal squamous cell carcinoma: >No PD-L1 Expression (CPS less than 10) >PD-L1 Expression (CPS greater than or equal to 10) *PD-L1 IHC 22C3 pharmDx is not a FDA-approved cytogenetic technician diagnostic for pembrolizumab performed on Dako SensorDynamicsis Stainer, using formalin-fixed, paraffin imbedded (FFPE) tissue from head and neck squamous cell carcinomas, gastric and gastroesophageal junction (GEJ) adenocarcinomas, and esophageal squamous cell carcinoma. The specimen submitted for testing must contain at least 100 viable, invasive tumor cells to be considered adequate for evaluation. Certain tissue processing factors such as decalcification, formalin fixation time outside an acceptable range (12 to 72 hrs), and prolonged time to fixation can affect PD-L1 staining/expressio n levels and results should be interpreted with caution in such instances. Additionally, tissue from older (greater than 5 yrs) formalin-fixed paraffin-embedded blocks may lose PD-L1 immunoreactivity. This assay is not validated for decalcified specimens. All controls show appropriate reactivity. This immunohistochemist ry test and its performance characteristics was developed by and is performed at the [facility], [address] [place] [address], and has not been cleared by or approved by the US Food and Drug Administration (FDA). The laboratory is regulated under CLIA as qualified to perform high-complexity testing. The tests are used for clinical purposes. They should not be regarded as investigational or for research. 3:35 PM EDT [facility] Gross Description A. [id number] H&E a block are received from oral pathology for PD-L1 interpretation. The specimen was collected on 06/25/25. 3:35 PM EDT [facility] Note: A resident was involved in the service. I attest I examined the relevant preparations for the specimens and confirmed the diagnosis or interpretation. 3:35 PM EDT [facility] Tissue 06/25/2025 07/02/2025 7:3 4 AM EDT us Nalini Mcrae DMD LAB PATHOLOGY ORDERABLES Final Result [facility] [address] [place] [address] documented in this encounter Visit Diagnoses Diagnosis Unspecified lesions of oral mucosa documented in this encounter Additional Health Concerns Assessment Noted Time A Body Mass Index follow-up plan has been documented for the patient 06/25/2025 11:35 AM EDT documented as of this encounter Care Teams Wood Experimental Mechanic Relationship Specialty Start Date End Date Christina Arteaga APRN [address] [place] [address] PCP - General 06/20/25 Maxwell White DMD [facility] [address] [place] [address] Referring Physician 06/24/25 documented as of this encounter
--- OUTSIDE RECORDS SUMMARY | 2025-09-26 11:10 | XMS_ITS | Encounter Summary ---
Author Organization Healthcare Address [address] [place] [address] Care Team Providers Care Bessemer Converter Blower Name Role Phone Christina Arteaga APRN Primary Care Provider aMxwell White DMD Unavailable [phone] Encounter Details Date Type Department Care Team (Late st Contact Info) Description 06/18/2025 [facility] [address] [place] [address] Maxwell White, DMD 101 [facility] 101 [place] [address] Social History Tobacco Use Types Packs/Day Years Used Date Smoking Tobacco: Never Assessed Sex and Gender Information Value Date Recorded Sex Assigned at Not on file Legal Sex Male 8:28 PM EDT Gender Identity Male 06/18/2025 11:51 AM EDT Sexual Orientation Not on file documented as of this encounter Plan of Treatment Upcoming Encounters Date Type Department Care Team (Late st Contact Info) Description 10/08/2025 9:15 AM EST Office Visit [facility] Plastic & Reconstructive Surgery [address] [place] [phone] Marvin Santana MD [address] [phone] 10/08/2025 10:30 AM EST Office Visit [facility] doctor chiropractic Faculty [facility] [address] [place] [address] Alvaro Adrian DMD, [address] [place] [address] documented as of this encounter Visit Diagnoses Not on filedocumented in this encounter Care Teams Bessemer Converter Blower Relationship Specialty Start Date End Date Christina Arteaga APRN [address] [place] [address] PCP - General 06/20/25 Maxwell White DMD [address] [place] [address] [address] [place] [address] Referring Physician 06/24/25 documented as of this encounter
--- OUTSIDE RECORDS SUMMARY | 2025-09-26 11:10 | XMS_ITS | Encounter Summary ---
Author Organization [facility] Address [address] [place] [address] Care Team Providers Care Economics Analyst Name Role Phone Chandler Christina TERE Primary Care Provider [phone] Christopher Maxwell Francy DMD Unavailable [phone] Encounter Details Date Type Department Care Team (Latest Contact Info) Description 09/10/2025 Travel Social History Tobacco Use Types Packs/Day [...] in the past 12 m [facility], were you homeless or living in a correction (including now)? No 08/21/2025 [facility] Utilities Answer Date Recorded In [...] 9:15 AM EST Office Visit [facility] Plastic & Reconstructive Surgery [address] [place] [phone] Marvin Santana MD [address] [place] [phone] 10/08/2025 10:30 AM EST Office Visit [facility] clinical laboratory aide Faculty [facility] [address] [place] [address] Alvaro Adrian, CLEM, [address] [place] [address] documented as of this encounter Visit Diagnoses Not on filedocumented in this encounter Additional Health Concerns Assessment Noted Time A fall risk assessment has been complete d for the patient 09/06/2025 12:49 PM EDT A Body Mass Index follow-up plan has been documented for the patient 09/04/2025 9:49 AM EDT documented as of this encounter Care Teams Economics Analyst Relationship Specialty Start Date End Date Christina Arteaga APRN [address] [place] [address] PCP - General 06/20/25 Maxwell White DMD [facility] [address] [place] [address] Referring Physician 06/24/25 documented as of this encounter
--- OUTSIDE RECORDS SUMMARY | 2025-09-26 11:10 | XMS_ITS | Encounter Summary ---
Author Organization Healthcare Address [address] [place] [address] Care Team Providers Care Charge Master Specialist Name Role Phone Christina Arteaga APRN Primary Care Provider [phone] Maxwell White DMD Unavailable [phone] Reason for Visit * Reason Onset Date Comments Med Refill 09/23/2025 Encounter Details Date Type Department Care Team (Late st Contact Info) Description 09/23/2025 [facility]ill [facility] [address] [place] [address] Isha [place], RENATO Squamous cell carcinoma of mandible Social History Tobacco Use Types Packs/Day Years [...] any time in the past 12 m [facility], were you homeless or living in a snf (including now)? No 08/21/2025 [facility] Utilities Answer Date Recorded In the [...] encounter Miscellaneous Notes * Telephone Encounter - Isha [place] RN - 09/23/2025 3:06 PM EST Med order change documented in this encounter Plan of Treatment Upcoming Encounters Date Type Department Care Team (Late st Contact Info) Description 10/08/2025 9:15 AM EST Office Visit [facility] Plastic & Reconstructive Surgery [address] [place] [address] Marvin Santana MD [address] [phone] 10/08/2025 10:30 AM EST Office Visit [facility] technical translator Faculty Clinic [address] [place] [address] Alvaro Adrian DMD, MD 2195 [facility] 175 [place] [address] documented as of this encounter Visit Diagnoses Diagnosis 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
--- OUTSIDE RECORDS SUMMARY | 2025-09-26 11:10 | XMS_ITS | Encounter Summary ---
Author Organization Healthcare Address [address] [place] [address] Care Team Providers Care Mobility Manager Name Role Phone Christina Arteaga APRN Primary Care Provider [phone] Maxwell White DMD Unavailable Encounter Details Date Type Department Care Team (Late st Contact Info) Description 09/20/2025 Orders Only [facility] [address] [place] [phone] Corrine Barriga APRN 2195 [facility] 2nd [place] [address] Social History Tobacco Use Types Packs/Day [...] any time in the past 12 m [facility], were you homeless or living in a correction (including now)? No 08/21/2025 [facility] Utilities Answer Date Recorded In the past 12 months has th e [employer], gas, oil, or water company threatened to shut off services in your home? No 08/21/2025 Sex and Gender Information Value Date Recorded Sex Assigned at Not on file Legal Sex Male 8:28 PM EDT Gender Identity Male 06/18/2025 11:51 AM EDT Sexual Orientation Not on file documented as of this encounter Miscellaneous Notes * Progress Notes - Corrine Barriga APRN - 09/20/2025 2:55 PM EST Tylenol refilled to his preferred pharmacy. documented in this encounter Plan of Treatment Upcoming Encounters Date Type Department Care Team (Late st Contact Info) Description 10/08/2025 9:15 AM EST Office Visit [facility] Plastic & Reconstructive Surgery [address] [place] [phone] Marvin Santana MD [address] [phone] 10/08/2025 10:30 AM EST Office Visit [facility] telesales professional [facility] [address] [place] [address] [place] [address] [place] [address] 175 [place] [address] documented as of this encounter Visit Diagnoses Not on filedocumented in this encounter Additional Health Concerns Assessment Noted Time A fall risk assessment has been complete d for the patient 09/17/2025 8:59 AM EST A Body Mass Index follow-up plan has been documented for the patient 09/24/2025 1:07 PM EST documented as of this encounter Care Teams Mobility Manager Relationship Specialty Start Date End Date Christina Arteaga APRN [address] [place] [address] PCP - General 06/20/25 Maxwell White DMD [facility] [address] [facility] [address] [place] [address] Referring Physician 06/24/25 documented as of this encounter
--- OUTSIDE RECORDS SUMMARY | 2025-09-26 11:10 | XMS_ITS | Encounter Summary ---
Author Organization [facility] Address [address] [place] [address] Care Team Providers Care Codifier Name Role Phone Chandler Christina TERE Primary Care Provider [phone] Christopher Maxwell Francy DMD Unavailable [phone] Encounter Details Date Type Department Care Team (Latest Contact Info) Description 09/17/2025 Travel Social History Tobacco Use Types Packs/Day [...] in a correction (including now)? No 08/21/2025 [facility] Utilities Answer Date Recorded In the past [...] 9:15 AM EST Office Visit [facility] Plastic & Reconstructive Surgery [address] [place] [phone] Marvin Santana MD [address] [place] [phone] 10/08/2025 10:30 AM EST Office Visit [facility] generator operator Faculty Clinic [address] [place] [address] Alvaro Adrian, CLEM, [address] [place] [place] [address] documented as of this encounter Visit Diagnoses Not on filedocumented in this encounter Additional Health Concerns Assessment Noted Time A fall risk assessment has been complete d for the patient 09/17/2025 8:59 AM EST A Body Mass Index follow-up plan has been documented for the patient 09/24/2025 1:07 PM EST documented as of this encounter Care Teams Codifier Relationship Specialty Start Date End Date Christina Arteaga APRN [address] [place] [address] PCP - General 06/20/25 Maxwell White DMD [facility] [address] [place] [address] Referring Physician 06/24/25 documented as of this encounter
--- OUTSIDE RECORDS SUMMARY | 2025-09-26 11:11 | XMS_ITS | Encounter Summary ---
Author Organization [facility] Address [address] [place] [address] Care Team Providers Care Liability Analyst Name Role Phone Chandler Christina TERE Primary Care Provider [phone] Christopher Maxwell Francy DMD Unavailable [phone] Encounter Details Date Type Department Care Team (Latest Contact Info) Description 08/19/2025 Travel Social History Tobacco Use Types Packs/Day [...] were you homeless or living in a fci (including now)? No 08/20/2025 [facility] Utilities Answer Date Recorded In [...] Author No Risk Indicated 08/19/2025 6:50 AM EDBetsy Shell RN * Question Answer Date of Assessment Author 1. Wish to be (Past 1 Month) No 025 6:50 AM EDBetsy Shell RN 2. Non-Specific Active Suici violet Thoughts (Past 1 Month) No 08/19/2025 6:50 AM EDT Ki Mayberry RN 6. Suicidal Behavior (Lifetime) No 6:50 AM EDT Betsy Mayberry RN documented as of this encounter Plan of Treatment Upcoming Encounters Date Type Department Care Team (Late st Contact Info) Description 10/08/2025 9:15 AM EST Office Visit [facility] Plastic & Reconstructive Surgery [address] [place] [phone] Marvin Santana MD [address] [address] 10/08/2025 10:30 AM EST Office Visit [facility] data management manager Faculty Clinic [address] [place] [address] Alvaro Adrian DMD, MD 2195 [facility] 175 [place] [address] documented as of this encounter Visit Diagnoses Not on filedocumented in this encounter Additional Health Concerns Assessment Noted Time A fall risk assessment has been complete d for the patient 08/09/2025 1:39 PM EDT A Body Mass Index follow-up plan has been documented for the patient 08/30/2025 1:58 PM EDT documented as of this encounter Care Teams Liability Analyst Relationship Specialty Start Date End Date Christina Arteaga APRN [address] [place] [address] PCP - General 06/20/25 Maxwell White DMD [facility] [address] [place] [address] Referring Physician 06/24/25 documented as of this encounter
--- OUTSIDE RECORDS SUMMARY | 2025-09-26 11:11 | XMS_ITS | Encounter Summary ---
Author Organization Healthcare Address [address] [place] [address] Care Team Providers Care Auricular Therapist Name Role Phone Christina Arteaga APRN Primary Care Provider [phone] ChristopherMaxwell Francy DMD Unavailable [phone] Encounter Details Date Type Department Care Team (Latest Contact Info) Description 08/15/2025 Travel Social History Tobacco Use Types Packs/Day [...] 9:15 AM EST Office Visit [facility] Plastic & Reconstructive Surgery [address] [place] [phone] Marvin Santana MD [address] [place] [phone] 10/08/2025 10:30 AM EST Office Visit [facility] linux systems analyst [facility] [address] [facility] [address] [place] [address] Alvaro Adrian DMD, MD [address] [facility] [address] [place] [address] documented as of this encounter Visit Diagnoses Not on filedocumented in this encounter Additional Health Concerns Assessment Noted Time A fall risk assessment has been complete d for the patient 08/09/2025 1:39 PM EDT A Body Mass Index follow-up plan has been documented for the patient 07/31/2025 9:17 AM EDT documented as of this encounter Care Teams Auricular Therapist Relationship Specialty Start Date End Date Christina Arteaga APRN [address] [place] [address] PCP - General 06/20/25 Maxwell White DMD [facility] [address] [place] [address] Referring Physician 06/24/25 documented as of this encounter
--- OUTSIDE RECORDS SUMMARY | 2025-09-26 11:11 | XMS_ITS | Encounter Summary ---
Author Organization Healthcare Address [address] [place] [address] Care Team Providers Care Windows 7 Deployment Lead Name Role Phone Christina Arteaga APRN Primary Care Provider [phone] Christopher Maxwell Francy DMD Unavailable [phone] Encounter Details Date Type Department Care Team (Late st Contact Info) Description 07/01/2025 [facility] [address] [place] [address] Lai Felix MD [address] [place], [place] [phone] Social History Tobacco Use Types Packs/Day Years [...] Description 10/08/2025 9:15 AM EST Office Visit [facility] Plastic & Reconstructive Surgery [address] [place] [phone] Marvin Santana MD [address] [address] 10/08/2025 10:30 AM EST Office Visit [facility] cell tuber hand [facility] [address] [place] [address] Alvaro Adrian DMD, MD [address] [place] [address] documented as of this encounter Visit Diagnoses Not on filedocumented in this encounter Additional Health Concerns Assessment Noted Time A fall risk assessment has been complete d for the patient 06/28/2025 3:34 PM EDT A Body Mass Index follow-up plan has been documented for the patient 06/25/2025 11:35 AM EDT documented as of this encounter Care Teams Windows 7 Deployment Lead Relationship Specialty Start Date End Date Christina Arteaga APRN [address] [place] [address] PCP - General 06/20/25 Maxwell White DMD [address] [place] [address] [address] [place] [address] Referring Physician 06/24/25 documented as of this encounter
--- OUTSIDE RECORDS SUMMARY | 2025-09-26 11:11 | XMS_ITS | Encounter Summary ---
Author Organization Healthcare Address [address] [place] [address] Care Team Providers Care Retail Salesworker Name Role Phone Christina Arteaga APRN Primary Care Provider [phone] ChristopherMaxwell Francy DMD Unavailable [phone] Encounter Details Date Type Department Care Team (Latest Contact Info) Description 08/13/2025 Travel Social History Tobacco Use Types Packs/Day [...] [facility] Plastic & Reconstructive Surgery [address] [place] [phone] Marvin Santana MD [address] [place] [phone] 10/08/2025 10:30 AM EST Office Visit [facility] skidway worker Faculty [facility] [address] [facility] [address] [place] [address] Alvaro Adrian DMD, MD [address] [facility] [address] [place] [address] documented as of this encounter Visit Diagnoses Not on filedocumented in this encounter Additional Health Concerns Assessment Noted Time A fall risk assessment has been complete d for the patient 08/09/2025 1:39 PM EDT A Body Mass Index follow-up plan has been documented for the patient 07/31/2025 9:17 AM EDT documented as of this encounter Care Teams Retail Salesworker Relationship Specialty Start Date End Date Christina Arteaga APRN [address] [place] [address] PCP - General 06/20/25 Maxwell White DMD [facility] [address] [place] [address] Referring Physician 06/24/25 documented as of this encounter
--- OUTSIDE RECORDS SUMMARY | 2025-09-26 11:11 | XMS_ITS | Encounter Summary ---
Author Organization [facility] Address [address] [place] [id number] Care Team Providers Care Sales Branch Manager Name Role Phone Christina Arteaga APRN Primary Care Provider [phone] Maxwell White DMD Unavailable [phone] Encounter Details Date Type Department Care Team (Late st Contact Info) Description 08/15/2025 Telephone [facility] Head, Neck & Respiratory [address] [place] [phone] Hafsa Moore RN [place] [phone] Social History Tobacco Use Types Packs/Day Years [...] encounter Miscellaneous Notes * Telephone Encounter - Hafsa Moore RN - 08/15/2025 2:04 PM EDT Called and left VM that doxycycline 50mg was sent in to take BID until sx date, I also advisedthat Nguyễn ok'd nutritional supplements or protein drinks until NPO for surgery. documented in this encounter Plan of Treatment Upcoming Encounters Date Type Department Care Team (Late st Contact Info) Description 10/08/2025 9:15 AM EST Office Visit [facility] Plastic & Reconstructive Surgery [address] [place] [phone] Marvin Santana MD [address] [phone] 10/08/2025 10:30 AM EST Office Visit [facility] hand stone polisher [facility] [address] [facility] [address] [place] [address] [place] [address] [place] [address] 175 [place] [phone] documented as of this encounter Visit Diagnoses Not on filedocumented in this encounter Additional Health Concerns Assessment Noted Time A fall risk assessment has been complete d for the patient 08/09/2025 1:39 PM EDT A Body Mass Index follow-up plan has been documented for the patient 07/31/2025 9:17 AM EDT documented as of this encounter Care Teams Sales Branch Manager Relationship Specialty Start Date End Date Christina Arteaga APRN [address] [place] [address] PCP - General 06/20/25 Maxwell White DMD [address] [place] [address] Referring Physician 06/24/25 documented as of this encounter
--- OUTSIDE RECORDS SUMMARY | 2025-09-26 11:11 | XMS_ITS | Encounter Summary ---
Author Organization Healthcare Address [address] [place] [address] Care Team Providers Care Milling/Polishing Operator Name Role Phone Christina Arteaga APRN Primary Care Provider hCristopherMaxwell Francy DMD Unavailable [phone] Encounter Details Date Type Department Care Team (Latest Contact Info) Description 08/09/2025 Travel Social History Tobacco Use Types Packs/Day [...] Description 10/08/2025 9:15 AM EST Office Visit [facility] Plastic & Reconstructive Surgery [address] [place] [phone] Marvin Santana MD [address] [place] [phone] 10/08/2025 10:30 AM EST Office Visit [facility] warehouse selector [facility] [address] [facility] [address] [place] [address] Alvaro Adrian DMD, MD [address] [facility] [address] [place] [address] documented as of this encounter Visit Diagnoses Not on filedocumented in this encounter Additional Health Concerns Assessment Noted Time A fall risk assessment has been complete d for the patient 08/09/2025 1:39 PM EDT A Body Mass Index follow-up plan has been documented for the patient 07/31/2025 9:17 AM EDT documented as of this encounter Care Teams Milling/Polishing Operator Relationship Specialty Start Date End Date Christina Arteaga APRN [address] [place] [address] PCP - General 06/20/25 Maxwell White DMD [facility] Patsy [facility] [address] [place] [address] Referring Physician 06/24/25 documented as of this encounter
--- OUTSIDE RECORDS SUMMARY | 2025-09-26 11:11 | XMS_ITS | Encounter Summary ---
Author Organization Healthcare Address [address] [place] [address] Care Team Providers Care Channel Lip Stiffener Insoles Name Role Phone Christina Arteaga APRN Primary Care Provider [phone] ChristopherMaxwell Francy DMD Unavailable [phone] Encounter Details Date Type Department Care Team (Latest Contact Info) Description 08/07/2025 Travel Social History Tobacco Use Types Packs/Day [...] Description 10/08/2025 9:15 AM EST Office Visit [facility] Plastic & Reconstructive Surgery [address] [place] [phone] Marvin Santana MD [address] [place] [phone] 10/08/2025 10:30 AM EST Office Visit [facility] sales service representative Faculty [facility] [address] [facility] [address] [place] [address] Alvaro Adrian DMD, MD [address] [facility] [address] [place] [address] documented as of this encounter Visit Diagnoses Not on filedocumented in this encounter Additional Health Concerns Assessment Noted Time A fall risk assessment has been complete d for the patient 07/30/2025 8:49 AM EDT A Body Mass Index follow-up plan has been documented for the patient 07/31/2025 9:17 AM EDT documented as of this encounter Care Teams Channel Lip Stiffener Insoles Relationship Specialty Start Date End Date Christina Arteaga APRN [address] [place] [address] PCP - General 06/20/25 Maxwell White DMD [facility] Patsy [facility] [address] [place] [address] Referring Physician 06/24/25 documented as of this encounter
--- OUTSIDE RECORDS SUMMARY | 2025-09-26 11:11 | XMS_ITS | Encounter Summary ---
Author Organization Healthcare Address [address] [place] [address] Care Team Providers Care Manager Dairy Name Role Phone Chandler Christina TERE Primary Care Provider [phone] Maxwell White DMD Unavailable [phone] Encounter Details Date Type Department Care Team (Late st Contact Info) Description 07/02/2025 Telephone Pav [facility] Head, Neck & Respiratory [address] [facility], 2nd [place] [phone] Jennifer Ortez MD 800 [facility] [address] [place] [address] Social History Tobacco Use Types Packs/Day Years [...] Date of Assessment Author No Risk Indicated 07/25/2025 1:06 PM EDT Trini Santos * Question Answer Date of Assessment Author 1. Wish to be (Past 1 Month) No 025 1:06 PM EDT Trini Blackmon 2. Non-Specific Active Suici violet Thoughts (Past 1 Month) No 07/25/2025 1:06 PM EDT Sandy Blackmon 6. Suicidal Behavior (Lifetime) No 1:06 PM EDT Trini Blackmon documented as of this encounter Miscellaneous Notes * Telephone Encounter - Ina Goodman RN - 07/02/2025 12:53 PM EDT Spoke with patient who agrees to come tomorrow. Gave instructions on premeds and contact info. * Telephone Encounter - Ce Ojeda - 07/02/2025 10:15 AM EDT Pt needs to have his CT jann for radiology in [facility]. They can't get transportation to and they are worried about his allergy to contrast and they want everything done on the same day at [facility] 07/10 Please email appt change to [email or web address] [phone] documented in this encounter Plan of Treatment Upcoming Encounters Date Type Department Care Team (Late st Contact Info) Description 10/08/2025 9:15 AM EST Office Visit [facility] Plastic & Reconstructive Surgery [address] [place] [phone] Marvin Santana MD [address] [place] [phone] 10/08/2025 10:30 AM EST Office Visit [facility] launderette attendant Faculty [facility] [address] [place] [address] Alvaro Adrian DMD, 2[address] [facility] 175 [place] [address] documented as of this encounter Visit Diagnoses Not on filedocumented in this encounter Additional Health Concerns Assessment Noted Time A fall risk assessment has been complete d for the patient 06/28/2025 3:34 PM EDT A Body Mass Index follow-up plan has been documented for the patient 06/25/2025 11:35 AM EDT documented as of this encounter Care Teams Manager Dairy Relationship Specialty Start Date End Date Christina Arteaga APRN [address] [place] [address] PCP - General 06/20/25 Maxwell White DMD [address] [place] [address] [facility] [address] [place] [address] Referring Physician 06/24/25 documented as of this encounter
--- OUTSIDE RECORDS SUMMARY | 2025-09-26 11:12 | XMS_ITS | Encounter Summary ---
Author Organization [facility] Address [address] 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 Bets number to call for scheduling is patients Elicia :[phone] Encounter Details Date Type Department Care Team (Late st Contact Info) Description 09/02/2025 Orders Only [facility] Head, Neck & Respiratory [address] [place] [address] Isha Walters RN Squamous cell carcinoma of mandible (Primary Dx); Floor of mouth squamous cell carcinoma Social History Tobacco Use Types Packs/Day Years [...] time in the past 12 m [facility], were you homeless or living in a retirement (including now)? No 08/21/2025 [facility] Utilities Answer Date Recorded In the past [...] [facility] Plastic [facility] Reconstructive Surgery [address] [place] [phone] Marvin Santana MD [address] [address] 10/08/2025 10:30 AM EST Office Visit 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 Expected: 09/02/2025 (Approximate), Expires: 03/06/2027 documented as of this encounter Visit Diagnoses Diagnosis Squamous cell carcinoma of mandible- Primary Floor of mouth squamous cell carcinoma Malignant neoplasm of floor of mouth, part unspecified documented in this encounter Additional Health Concerns Assessment Noted Time A fall risk assessment has been complete d for the patient 08/09/2025 1:39 PM EDT A Body Mass Index follow-up plan has been documented for the patient 08/30/2025 1:58 PM EDT documented as of this encounter Care Teams Dairy Farmer Relationship Specialty Start Date End Date Christina Arteaga APRN [address] [place] [address] PCP - General 06/20/25 Maxwell White DMD [facility] [address]y [address] [place] [address] Referring Physician 06/24/25 documented as of this encounter
--- OUTSIDE RECORDS SUMMARY | 2025-09-26 11:12 | XMS_ITS | Encounter Summary ---
Author Organization Healthcare Address [address] [place] [address] Care Team Providers Care Ambulatory Care Nurse Name Role Phone Christina Arteaga APRN Primary Care Provider [phone] Maxwell White DMD Unavailable [phone] Encounter Details Date Type Department Care Team (Late st Contact Info) Description 09/02/2025 Telephone [facility] Head[facility] Neck & Respiratory [address] [place] [phone] Isha Walters, RENATO Social History Tobacco Use Types Packs/Day Years [...] any time in the past 12 m [facility], were you homeless or living in a jail (including now)? No 08/21/2025 [facility] Utilities Answer Date Recorded In the [...] Telephone Encounter - Isha Walters RN - 09/02/2025 10:52 AM EDT RN spoke to pts Elicia on the phone concerning the Metoprolol Tartrate dose being sent in as 25mg BID. RN told Elicia that it was in error and he needs to be taking 12.5mg BID. Elicia stated that he has been unusually tired and wondered if that was the reasoning, Rn stated it is definitely a possibility. RN stated to start the 12.5 dose tonight. Elicia asked about the Ramipril since he was not prescribed that. Rn spoke to Dr. Adrian and he stated that we will continue to hold that dueto the increased risk of HTN. Elicia understood. No other questions or concerns. documented in this encounter Plan of Treatment Upcoming Encounters Date Type Department Care Team (Late st Contact Info) Description 10/08/2025 9:15 AM EST Office Visit [facility] Plastic & Reconstructive Surgery [address] [place] [phone] Marvin Santana MD [address] [phone] 10/08/2025 10:30 AM EST Office [facility] executive assistant to general counsel [facility] [address] [facility] [address] [place] [address] Alvaro Adrian DMD, MD 2195 [facility] 175 [place] [address] documented as of this encounter Visit Diagnoses Not on filedocumented in this encounter Additional Health Concerns Assessment Noted Time A fall risk assessment has been complete d for the patient 08/09/2025 1:39 PM EDT A Body Mass Index follow-up plan has been documented for the patient 08/30/2025 1:58 PM EDT documented as of this encounter Care Teams Ambulatory Care Nurse Relationship Specialty Start Date End Date Christina Arteaga APRN [address] [place] [address] PCP - General 06/20/25 Maxwell White DMD [address] [place] [address] Referring Physician 06/24/25 documented as of this encounter
--- OUTSIDE RECORDS SUMMARY | 2025-09-26 11:12 | XMS_ITS | Encounter Summary ---
Author Organization [facility] Address [address] [place] [address] Care Team Providers Care Medical Receptionist Name Role Phone Chandler Christina TERE Primary Care Provider [phone] Christopher Maxwlel Francy DMD Unavailable [phone] Encounter Details Date Type Department Care Team (Latest Contact Info) Description 09/02/2025 Travel Social History Tobacco Use Types Packs/Day [...] in a retirement (including now)? No 08/21/2025 [facility] Utilities Answer Date Recorded In the [...] [facility] Plastic & Reconstructive Surgery [address] [place] [phone] Marvin Santana MD [address] [place] [phone] 10/08/2025 10:30 AM EST Office Visit [facility] reconciliation coordinator [facility] [address] [place] [address] Alvaro Adrian, CLEM, [address] [address] [place] [address] documented as of this encounter Visit Diagnoses Not on filedocumented in this encounter Additional Health Concerns Assessment Noted Time A fall risk assessment has been complete d for the patient 08/09/2025 1:39 PM EDT A Body Mass Index follow-up plan has been documented for the patient 08/30/2025 1:58 PM EDT documented as of this encounter Care Teams Medical Receptionist Relationship Specialty Start Date End Date Christina Arteaga APRN [address] [place] [address] PCP - General 06/20/25 Maxwell White DMD [facility] [address] [place] [address] Referring Physician 06/24/25 documented as of this encounter
--- OUTSIDE RECORDS SUMMARY | 2025-09-26 11:12 | XMS_ITS | Encounter Summary ---
Author Organization [facility] Address [address] [place] [address] Care Team Providers Care Sales Agent Name Role Phone Chandler Christina TERE Primary Care Provider Christopher Maxwell Francy DMD Unavailable [phone] Encounter Details Date Type Department Care Team (Latest Contact Info) Description 09/06/2025 Travel Social History Tobacco Use Types Packs/Day [...] in a mcc (including now)? No 08/21/2025 [facility] Utilities Answer Date Recorded In the [...] [facility] Plastic & Reconstructive Surgery [address] [place] [phone] Marvin Santana MD [address] [place] [phone] 10/08/2025 10:30 AM EST Office Visit [facility] nursing department chairperson Faculty Clinic [address] [place] [address] Alvaro Adrian, CLEM, [address] [place] [address] documented as of this encounter Visit Diagnoses Not on filedocumented in this encounter Additional Health Concerns Assessment Noted Time A fall risk assessment has been complete d for the patient 09/06/2025 12:49 PM EDT A Body Mass Index follow-up plan has been documented for the patient 09/04/2025 9:49 AM EDT documented as of this encounter Care Teams Sales Agent Relationship Specialty Start Date End Date Christina Arteaga APRN [address] [place] [address] PCP - General 06/20/25 Maxwell White DMD [facility] [address] [place] [address] Referring Physician 06/24/25 documented as of this encounter
--- OUTSIDE RECORDS SUMMARY | 2025-09-26 11:13 | XMS_ITS | Encounter Summary ---
Author Organization Healthcare Address [address] [place] [address] Care Team Providers Care Head Of Talent Management Name Role Phone Chandler, Christina TERE Primary Care Provider [phone] Maxwell White DMD Unavailable [phone] Encounter Details Date Type Department Care Team (Late st Contact Info) Description 08/21/2025 [facility] [address] [place] [address] Isha Walters, RENATO Social History Tobacco Use [...] any time in the past 12 m [facility], were you homeless or living in a nursing home (including now)? No 08/21/2025 [facility] Utilities Answer Date Recorded In [...] Date of Assessment Author No Risk Indicated 08/26/2025 8:00 AM EDT Don Dolan, RN * Question Answer Date of Assessment Author 1. Wish to be (Past 1 Month) No 025 8:00 AM EDT Don Dolan, RN 2. Non-Specific Active Suici violet Thoughts (Past 1 Month) No 08/26/2025 8:00 AM EDT June Dolan, RENATO 6. Suicidal Behavior (Lifetime) No 8:00 AM EDT Don Dolan RN documented as of this encounter Plan of Treatment Upcoming Encounters Date Type Department Care Team (Late st Contact Info) Description 10/08/2025 9:15 AM EST Office Visit [facility] Plastic & Reconstructive Surgery [address] [place] [address] Marvin Santana MD [address] [address] 10/08/2025 10:30 AM EST Office Visit [facility] [address] [facility] [address] [place] [address] Alvaro Adrian DMD, MD [address] [facility] [address] [place] [address] documented as of this encounter Visit Diagnoses Not on filedocumented in this encounter Additional Health Concerns Assessment Noted Time A fall risk assessment has been complete d for the patient 08/09/2025 1:39 PM EDT A Body Mass Index follow-up plan has been documented for the patient 08/30/2025 1:58 PM EDT documented as of this encounter Care Teams Head Of Talent Management Relationship Specialty Start Date End Date Christina Arteaga APRN [address] [place] [address] PCP - General 06/20/25 Maxwell White DMD [address] [place] [address] [address] [place] [address] Referring Physician 06/24/25 documented as of this encounter
--- OUTSIDE RECORDS SUMMARY | 2025-09-26 11:13 | XMS_ITS | Encounter Summary ---
Author Organization [facility] Address [address] [place] [address] Care Team Providers Care Human Resources Compliance Manager Name Role Phone Lew Arteagaica TERE Primary Care Provider [phone] Maxwell White DMD Unavailable [phone] Reason for Referral * Consultation (Routine) - Authorized Specialty Diagnoses / Procedures Referred By Contac t Referred To Contact Oral Surgery Diagnoses Oral lesion Lai Felix MD [address] [place] [address] Phone: tel: fax: [facility] lining machine tender [facility] [address] [place] [address] [address] [place] [address] Phone: tel: Referral ID Status Reason Start Date Expiration Date Visits Requested Visits Authorized [id number] Authorized Specialty Services Required 07/03/2025 01/02/2027 1 1 Encounter Details Date Type Department Care Team (Late st Contact Info) Description 07/03/2025 Community Orders [facility] [address] [place] [address] Lai Felix MD [address] [place] [address] Oral lesion (Primary Dx) Social History Tobacco Use Types [...] [facility] [address] [place] [address] Marvin Santana MD [address] [address] 10/08/2025 10:30 AM EST Office Visit [facility] [address] [place] [address] Alavro Adrian DMD, MD [address] [place] [address] Scheduled Referrals Name Type Priority Associated Diagnoses Order Schedule Ambulatory referral to Oral Maxillofacial Surgery Outpatient Referral Routine Oral lesion Ordered: 07/03/2025 documented as of this encounter Visit Diagnoses Diagnosis Oral lesion- Primary Other and unspecified diseases of the oral soft tissues documented in this encounter Additional Health Concerns Assessment Noted Time A fall risk assessment has been complete d for the patient 06/28/2025 3:34 PM EDT A Body Mass Index follow-up plan has been documented for the patient 06/25/2025 11:35 AM EDT documented as of this encounter Care Teams Human Resources Compliance Manager Relationship Specialty Start Date End Date Chrisitna Arteaga APRN [address] [place] [address] PCP - General 06/20/25 Maxwell White, DMD [facility] [address] [place] [address] Referring Physician 06/24/25 documented as of this encounter
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
--- OUTSIDE RECORDS SUMMARY | 2025-09-26 11:14 | XMS_ITS | Encounter Summary ---
Author Organization [facility] Address [address] [place] [address] Care Team Providers Care Warranty Manager Name Role Phone Chandler Christina TERE Primary Care Provider [phone] Christopher Maxwell Francy DMD Unavailable [phone] Encounter Details Date Type Department Care Team (Latest Contact Info) Description 09/03/2025 Travel Social History Tobacco Use Types Packs/Day [...] in a jail (including now)? No 08/21/2025 [facility] Utilities Answer Date Recorded In [...] 9:15 AM EST Office Visit [facility] Plastic & Reconstructive Surgery [address] [place] [address] Marvin Santana MD [address] [place] [address] 10/08/2025 10:30 AM EST Office Visit [facility] paper stripper [facility] [address] [place] [address] Alvaro Adrian, CLEM, [address] [place] [address] documented as of this encounter Visit Diagnoses Not on filedocumented in this encounter Additional Health Concerns Assessment Noted Time A fall risk assessment has been complete d for the patient 09/03/2025 9:03 AM EDT A Body Mass Index follow-up plan has been documented for the patient 09/04/2025 9:49 AM EDT documented as of this encounter Care Teams Warranty Manager Relationship Specialty Start Date End Date Christina Arteaga APRN [address] [place] [address] PCP - General 06/20/25 Maxwell White DMD [facility] [address] [place] [address] Referring Physician 06/24/25 documented as of this encounter
--- OUTSIDE RECORDS SUMMARY | 2025-09-26 11:14 | XMS_ITS | Clinical Summary ---
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 recent of9 resultswithin the time period is included. Magnesium, Plasma 2.4 1.9 - 2.4 mg/dL 08/30/2025 3:39 AM EDT [facility] Blood Venous blood specimen / Unknown Venipuncture / Unknown 08/30/2025 3:00 AM EDT 08/30/2025 3:11 AM EDT us Sin Min M Hayder [place] MD LAB BLOOD ORDERABLES Melida l Result [facility] [address] [place] [address] * (ABNORMAL) Basic Metabolic Panel, Plasma (08/30/2025 3:00 AM EDT) Only the most recent of9 resultswithin the time period is included. Glucose, Plasma 113(H) 74 - 99 mg/dL [...] Result [facility] [address] [place] [address] * (ABNORMAL) POCT glucose meter (08/28/2025 5:41 AM EDT) Only the most recent of20 resultswithin the time period is included. [facility] POCT Glucose 105(H) 74 - 99 [...] Comment 08/28/2025 5:42 AM EDT [facility] Cash Register Balancer ID Lavonne Mccauley 08/28/2025 5:42 AM EDT [facility]ALTH[facility]ARE LAB Device ID [id number] 08/28/2025 5:42 AM EDT [facility] Specimen Type POC Capillary 08/28/2025 5:42 AM EDT [facility] Blood Capillary blood specimen / Unknown 08/28/2025 5:41 AM EDT 08/28/2025 5:42 AM EDT us Alvaro Adrian DMD, MD LAB POINT OF CA RE TEST DOCKED DEVICE UNSOLICITED RESULTS Final Result [facility] [address] [place] [address] * Type and Screen (08/28/2025 3:54 AM EDT) Only the most recent of2 resultswithin the time period is included. ABO/Rh A Negative 08/28/2025 3:58 AM EDT BLOOD BANK Antibody Screen Negative 08/28/2025 3:58 AM EDT BLOOD BANK Specimen Expiration 08/31/2025 23:59 08/28/2025 3:58 AM EDT BLOOD BANK Blood Venous blood specimen / Unknown Venipuncture / Unknown 08/28/2025 3:54 AM EDT 08/28/2025 3:58 AM EDT Alvaro Adrian DMD, MD LAB BLOOD BANK TEST ORD ERABLES Final Result Performing Organization Address [facility] de Phone Number BLOOD BANK [address] [place] [address] * Wound VAC Dressing Changes (Non-Instillation) (08/26/2025 [...] WOUND/OSTOMY ORDERABLES Edited Result - Final * XR Abdomen 1 View (08/19/2025 8:37 [...] of the abdomen. COMPARISON: None. FINDINGS: Limited dhetq-sy-phon abdominal radiograph for the purpose of locating tube position. The tip of the feeding tube is within the proximal stomach. Procedure Note Patricio Trevino MD - 08/19/2025 CLINICAL INDICATION: DHT placement TECHNIQUE: Supine radiograph of the abdomen. COMPARISON: None. FINDINGS: Limited ahxkn-[id number] abdominal radiograph for the purpose of locatingtube [...] MD IMG XR PROCEDURES Final Result * Ashanti auris Surveillance by PCR (08/19/2025 8:19 PM EDT) Ashanti auris PCR Result Not Detected Not Detected 08/21/2025 10:33 AM EDT [facility] Swab (Axilla and Groin) Non-blood Collection / Unknown 08/19/2025 8:19 PM EDT 08/19/2025 8:30 PM EDT Narrative [facility] - 08/21/2025 10:33 AM EDT This PCR assay was developed and its performance characteristics determined by [facility] as appropriate for clinical purposes. This assay has not been cleared or approved by the FDA, but is performed in a CLIA regulated laboratory that is qualified to perform high-complexity testing. us Marvin Santana MD LAB MICROBIOLOGY - GENER AL ORDERABLES Final Result Performing Organization Address City/[facility]/ZIP Co de Phone Number [facility] [address] [place] [address] * Multi Drug Resistance Test (08/19/2025 8:19 PM EDT) Pathologist [facility] Culture No growth at day 1 08/21/2025 7:33 AM EDT [facility] Swab (Nares and Nini Rectal) Non-blood Collection / Unknown 08/19/2025 8:19 PM EDT 08/19/2025 8:30 PM EDT Narrative [facility] - 08/21/2025 7:33 AM EDT This test was developed and its performance characteristics determined by the [facility]. Although the media is FDA-approved, it is not FDA-approved for all specimen types submitted. The FDA has determined that such clearance or approval is not necessary. This test is used for surveillance purposes. It should not be regarded as investigational or for research. The [facility] is certified under the Clinical Laboratory Improvement Amendments of 1988 (CLIA-88) as qualified to perform high complexity clinical laboratory testing. us Marvin Santana MD LAB MICROBIOLOGY - GENER AL ORDERABLES Final Result Performing Organization Address [facility] Co de Phone Number [facility] [address] [place] [address] * (ABNORMAL) Blood gas, arterial (08/19/2025 12:23 PM EDT) Only the most recent of2 resultswithin the time period is included. Pathologist [facility] pH, Arterial 7.38 7.35 - 7.45 LAB [...] Benavides CRNA LAB BLOOD ORDERABLES Final Result [facility] [address] [place] [address] * Surgical Pathology Exam (08/19/2025 10:32 AM EDT) Only the most recent of2 resultswithin the time period is included. Case Report Surgical Pathology Case: [id number] Authorizing Provider: Marvin Santana MD Collected: 08/19/2025 0917 Ordering Location: [facility]PER[facility] RO[facility] Received: 08/19/2025 8862 Pathologist: Timothy Chacon MD Intraop: Nabila Hendrickson [...] FOR CARCINOMA (0/20) 08/28/2025 11:21 AM T [facility] at 1949 EDT Comment:This is an [...] tumor in part L. 08/28/2025 11:21 AM [facility] Comment:This is an appended report. These [...] a robin-white, papillary, irregularly-shap ed 2.4 cm (anterior-coremaker experimental ior) by 1.9 (superior-inferi or) lesion that appears to abut the posterior and inferior margins. Gross photographs both pre ink and inked are provided. Ink code: Blue-anterior Red-superior Green-inferior Black-posterior Chilton-medial Uninked (with lesion)-lateral Specimen is serially sectioned [...] of left brandyn mandibulectomy measuring 10.0 cm (anterior-coremaker experimental ior) x 4.6 cm (left-right) x 3.5 cm (superior-inferi or) with an attached ramus measuring 6.2 cm (superior-inferi or) x 0.6 cm (left-right) x 1.3 cm (anterior-coremaker experimental ior). The specimen is oriented by a short-short stitch on the lateral soft tissue, a long-short stitch on the anterior soft tissue and a long-long stitch on the medial soft tissue. The attached medial soft tissue measures 3.4 (left-right) by 8.4 (anterior-coremaker experimental ior) by 2.0 (superior-inferi or), and is [...] and the gingiva there is a 3.4 (anterior-coremaker experimental ior by 1.8 (superior-inferi or by 0.8 [...] no other interosseous lesions are grossly noted Metal Wire Technician sections are submitted as follows: L1: Anterior mucosal and soft tissue margin L2: Lateral mucosal and soft tissue margin L3: Medial mucosal and soft tissue margin L4: Posterior mucosal and soft tissue margin L5: Inferior soft tissue margin L6: Mass 2 L7-L9: Mass 1, deepest bone invasion in L9 L10: Mandibular interosseous lesion L11: Softened bone adjacent to lesion L12: Metal Wire Technician sample of lesion Cold Time: 0 Marvel [...] PATHOLOGY ORDERABLE S Edited Result - Final [facility] [address] [place] [address] * PB ANESTHESIA NON-TIMED PROCEDURE PLACEHOLDER (08/19/2025 [...] well with no complications. Staffing Performed: [facility] THERAPY ADMINISTRATIVE ASSISTANT: Kenneth Benavides CRNA us Caden Alas MD ANESTHESIA ORDERABLES Final Re sult * KS AN ELECTIVE ENDOTRACHEAL AIRWAY, PB ANESTHESIA PLACEHOLDER (08/19/2025 8:27 AM EDT) Kenneth Saldivar CRNA - 08/19/2025 8:27 AM EDT Kenneth Benavides CRNA 08/19/2025 8:53 AM Airway Date/Time: 08/19/2025 8:27 AM Reason: elective Airway not difficult General Information and Staff Patient location during procedure: OR THERAPY ADMINISTRATIVE ASSISTANT: Kenneth Benavides CRNA Performed: [facility] Patient Condition Indications for airway management: anesthesia [...] MD ANESTHESIA ORDERABLES Final Re sult * (ABNORMAL) CBC and differential (07/25/2025 1:16 PM EDT) Only the most recent of3 resultswithin the time period is included. WBC Count 9.66 3.70 - 10.30 10*3/uL LAB HEMATOLOGY METHOD 07/25/2025 1:45 PM EDT [facility] RBC Count 4.07(L) 4.60 - 6.10 10*6/uL LAB HEMATOLOGY METHOD 07/25/2025 1:45 PM EDT [facility] HGB 12.7(L) 13.7 - 17.5 g/dL LAB HEMATOLOGY METHOD 07/25/2025 1:45 PM EDT [facility] HCT 37.5(L) 40.0 - 51.0 % LAB HEMATOLOGY METHOD 07/25/2025 1:45 PM EDT [facility] Platelet Count 293 155 - 369 10*3/uL LAB HEMATOLOGY METHOD 07/25/2025 1:45 PM EDT [facility] MCV 92 79 - 98 fL LAB HEMATOLOGY METHOD 07/25/2025 1:45 PM EDT [facility] MCH 31.2 26.0 - 32.0 pg LAB HEMATOLOGY METHOD 07/25/2025 1:45 PM EDT [facility] MCHC 33.9 30.7 - 35.5 g/dL LAB HEMATOLOGY METHOD 07/25/2025 1:45 PM EDT [facility] RDW 12.0 11.5 - 14.5 % LAB HEMATOLOGY METHOD 07/25/2025 1:45 PM EDT [facility] MPV 9.6 8.8 - 12.5 fL LAB HEMATOLOGY METHOD 07/25/2025 1:45 PM EDT [facility] nRBC 0.0 <=0.0 per 100 WBCs LAB HEMATOLOGY METHOD 07/25/2025 1:45 PM EDT [facility] Differential Type Automated LAB HEMATOLOGY METHOD 07/25/2025 1:45 PM EDT [facility] Neutrophils % 66 % LAB HEMATOLOGY METHOD 07/25/2025 1:45 PM EDT [facility] Lymphocytes % 23 % LAB HEMATOLOGY METHOD 07/25/2025 1:45 PM EDT [facility] Monocytes % 9 % LAB HEMATOLOGY METHOD 07/25/2025 1:45 PM EDT [facility] Eosinophils % 2 % LAB HEMATOLOGY METHOD 07/25/2025 1:45 PM EDT [facility] Basophils % 0 % LAB HEMATOLOGY METHOD 07/25/2025 1:45 PM EDT [facility] Immature Granulocytes % 0 % LAB HEMATOLOGY METHOD 07/25/2025 1:45 PM EDT [facility] Neutrophils Absolute 6.37(H) 1.60 - 6.10 10*3/uL LAB HEMATOLOGY METHOD 07/25/2025 1:45 PM EDT [facility] Lymphocytes Absolute 2.21 1.20 - 3.90 10*3/uL LAB HEMATOLOGY METHOD 07/25/2025 1:45 PM EDT [facility] Monocytes Absolute 0.83 0.30 - 0.90 10*3/uL LAB HEMATOLOGY METHOD 07/25/2025 1:45 PM EDT [facility] Eosinophils Absolute 0.19 0.00 - 0.50 10*3/uL LAB HEMATOLOGY METHOD 07/25/2025 1:45 PM EDT [facility] Basophils Absolute 0.03 0.00 - 0.10 10*3/uL LAB HEMATOLOGY METHOD 07/25/2025 1:45 PM EDT [facility] Immature Granulocytes Absolute 0.03 0.00 - 0.06 10*3/uL LAB HEMATOLOGY METHOD 07/25/2025 1:45 PM EDT [facility] Blood Venous blood specimen / Unknown Venipuncture / Unknown 07/25/2025 1:16 PM EDT 07/25/2025 1:35 PM EDT Narrative [facility] - 07/25/2025 1:45 PM EDT Therapeutic decision making should be based on absolute values, rather than percentages. Jennifer Ortez MD LAB BLOOD ORDERABLES Final R esult [facility] [address] [place] [address] * (ABNORMAL) Comprehensive metabolic panel (07/25/2025 1:16 PM EDT) Only the most recent of3 resultswithin the time period is included. Glucose, Plasma 117(H) 74 - 99 mg/dL 07/25/2025 2:08 PM EDT [facility] BUN, Plasma 15 7 - 21 mg/dL 07/25/2025 2:08 PM EDT [facility] Creatinine, Plasma 0.88 0.70 - 1.20 mg/dL 07/25/2025 2:08 PM EDT [facility] BUN/Creatinine Ratio 17 07/25/2025 2:08 PM EDT [facility] Sodium, Plasma 137 136 - 145 mmol/L 07/25/2025 2:08 PM EDT [facility] Potassium, Plasma 4.1 3.6 - 4.9 mmol/L 07/25/2025 2:08 PM EDT [facility] Chloride, Plasma 102 97 - 107 mmol/L 07/25/2025 2:08 PM EDT [facility] CO2, Plasma 21(L) 22 - 29 mmol/L 07/25/2025 2:08 PM EDT [facility] Anion Gap 14 6 - 16 mmol/L 07/25/2025 2:08 PM EDT [facility] Total Calcium, Plasma 9.2 8.9 - 10.2 mg/dL 07/25/2025 2:08 PM EDT [facility] Total Protein 7.5 6.3 - 7.9 g/dL 07/25/2025 2:08 PM EDT [facility] Albumin, Plasma 4.4 3.5 - 5.2 g/dL 07/25/2025 2:08 PM EDT [facility] AST, Plasma 28 10 - 50 U/L 07/25/2025 2:08 PM EDT [facility] ALT, Plasma 19 10 - 50 U/L 07/25/2025 2:08 PM EDT [facility] Alkaline Phosphatase, Plasma 55 40 - 115 U/L 07/25/2025 2:08 PM EDT [facility] Total Bilirubin, Plasma 0.3 0.2 - 1.1 mg/dL 07/25/2025 2:08 PM EDT [facility] eGFRcr 103.5 mL/min/1.7 3m*2 07/25/2025 2:08 PM EDT [facility] Comment:Reported eGFRcr in m L/min/1.73m2 is based the CKD-EPI 2020 equation that does not use a race coefficient. Blood Venous blood specimen / Unknown Venipuncture / Unknown 07/25/2025 1:16 PM EDT 07/25/2025 1:31 PM EDT us Jennifer Ortez MD LAB BLOOD ORDERABLES Final R esult [facility] [address] [place] [address] * CT Chest w IV Contrast (07/25/2025 10:20 AM EDT) Only the most recent of2 resultswithin the time period is included. Anatomical Region Laterality Modality Chest Computed Tomogra phy Impressions 07/25/2025 11:51 AM EDT No evidence of thoracic disease progression. CRITICAL RESULT: No. COMMUNICATION: Per this written report. By electronically signing this report, I, the attending physician, attest that I have personally reviewed the images/data for the above examination(s) and agree with the final edited report. 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 100 mL of Omnipaque-300 were administered intravenously. The imaging protocol used in this examination was optimized to achieve diagnostic quality with the lowest possible radiation dose in accordance with the principles of ALARA (As Low As Reasonably Achievable). COMPARISON: CT chest, 07/03/2025. Outside PET/CT, 07/09/2025. FINDINGS: Mediastinum and Pleura: No enlarged mediastinal or hilar adenopathy. No pleural or pericardial effusion. Severe coronary artery calcifications. Lungs: Central airways are patent. Mild bibasal dependent atelectasis. 6 mm right perifissural nodule is unchanged (series 4 image 237). No new pulmonary nodule. Upper Abdomen: No suspicious lesions in the partially visualized upper abdomen. Musculoskeletal: No suspicious lytic or sclerotic lesion. Redemonstration of remote right anterior rib fractures, and posterior 12th rib fracture. Unchanged right clavicular deformity. 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 100 mL of Omnipaque-300 wereadministered intravenously. The imaging protocol used in this examination was optimized to achievediagnostic quality with the lowest possible radiation dose in accordancewith the principles of ALARA (As Low As Reasonably Achievable). COMPARISON: CT chest, 07/03/2025. Outside PET/CT, 07/09/2025. FINDINGS: Mediastinum and Pleura: No enlarged mediastinal or hilar adenopathy. Nopleural or pericardial effusion. Severe coronary artery calcifications. Lungs: Central airways are patent. Mild bibasal dependent atelectasis. 6mm right perifissural nodule is unchanged (series 4 image 237). No newpulmonary nodule. Upper Abdomen: No suspicious lesions in the partially visualized upperabdomen. Musculoskeletal: No suspicious lytic or sclerotic lesion. Redemonstrationof remote right anterior rib fractures, and posterior 12th rib fracture.Unchanged right clavicular deformity. IMPRESSION: No evidence of thoracic disease progression. CRITICAL RESULT: No. COMMUNICATION: Per this written report. By electronically signing this report, I, the attending physician, attestthat I have personally reviewed the images/data for the aboveexamination(s) and agree with the final edited report. Drafted by Alberto Mathis MD on 07/25/2025 10:44 AM Final report signed by Reginald Leblanc MD on 07/25/2025 11:51 AM Jennifer Ortez MD IMG CT PROCEDURES Final Resu lt * CT Soft Tissue Neck w IV Contrast (07/25/2025 10:20 AM EDT) Only the most recent of2 resultswithin the time period is included. Anatomical Region Laterality Modality Neck Computed Tomogra phy Impressions 07/25/2025 3:45 PM EDT Interval progression of disease, relative to previous CT, with increased size of primary mass involving the left tongue/oral cavity, with worsening mandibular erosion into the roots of the molar teeth, as well as increased size of adjacent metastatic lymph nodes. Kenneth Mistry M.D. This report has been electronically signed and verified by the Radiologist whose name is printed above. This report contains privileged and confidential information and is intended solely for the use of the individual or entity to which it is addressed. If you are not the intended recipient of this report, you are hereby notified that any copying, distribution, dissemination or action taken in relation to the contents of this report is strictly prohibited and may be unlawful. If you have received this report in error, please notify the sender immediately at [phone] and permanently delete the original report and destroy any copies or printouts. Narrative 07/25/2025 3:45 PM EDT [facility] - Phone Outpatient NAME: Carlito Perez DATE OF EXAM: 07/25/2025 Patient No: [id number] Physician: Tejal Date of : 1970 Past Medical/Surgical History (entered by technologist): Symptoms/Reason For Exam (entered by technologist): Tech Notes (entered by technologist): EXAM: CT neck with IV contrast INDICATION: 54-year-old male with history of oral cavity malignancy who presents for follow-up imaging. TECHNIQUE: Axial computed tomographic imaging of the neck was performed with intravenous contrast and with multiplanar reformats in the coronal and sagittal planes. Total DLP was 490.5 mGy*cm. 100 cc Omnipaque 300 was administered intravenously. COMPARISON: CT neck 07/03/2025 FINDINGS: Partially visualized intracranial contents appear unremarkable.Orbits normal. Paranasal sinuses and mastoid air cells clear. Dental disease. Cervical spine degeneration. Lung apices clear. Old fracture of the right clavicle. Parotid and submandibular glands normal. Thyroid gland normal. Streak artifact from dental amalgam limits assessment of the oral cavity and oropharynx. Oral cavity mass eroding into the adjacent mandible on series 7, image 48, as well as series 7, image 60, measuring 3.5 x 2 cm, previously 2.9 x 1.7 cm. there is worsening osseous erosion of the left mandibular body extending posteriorly to the roots of the molar teeth, relative to prior imaging. Left level 1B node on series 4, image 263 measures 0.9 x 0.7 cm, previously 0.8 x 0.5 cm. Additional node more superior on series 4, image 283 measures 2.1 x 0.7 cm, previously 1.8 x 0.9 cm. Procedure Note Kenneth Mistry MD - 07/25/2025 [facility] - Phone Outpatient NAME: Carlito Perez DATE OF EXAM: 07/25/2025 Patient No: [id number] Physician: Pérez^Jennifer^Lynn Date of : 1970 Past Medical/Surgical History (entered by technologist): Symptoms/Reason For Exam (entered by technologist): Tech Notes (entered by technologist): EXAM: CT neck with IV contrast INDICATION: 54-year-old male with history of oral cavity malignancy whopresents for follow-up imaging. TECHNIQUE: Axial computed tomographic imaging of the neck was performedwith intravenous contrast and with multiplanar reformats in the coronaland sagittal planes. Total DLP was 490.5 mGy*cm. 100 cc Omnipaque 300was administered intravenously. COMPARISON: CT neck 07/03/2025 FINDINGS: Partially visualized intracranial contents appear unremarkable.Orbitsnormal. Paranasal sinuses and mastoid air cells clear. Dental disease.Cervical spine degeneration. Lung apices clear. Old fracture of theright clavicle. Parotid and submandibular glands normal. Thyroid gland normal. Streak artifact from dental amalgam limits assessment of the oral cavityand oropharynx. Oral cavity mass eroding into the adjacent mandible onseries 7, image 48, as well as series 7, image 60, measuring 3.5 x 2 cm,previously 2.9 x 1.7 cm. there is worsening osseous erosion of the leftmandibular body extending posteriorly to the roots of the molar teeth,relative to prior imaging. Left level 1B node on series 4, image 263 measures 0.9 x 0.7 cm,previously 0.8 x 0.5 cm. Additional node more superior on series 4, measures 2.1 x 0.7 cm, previously 1.8 x 0.9 cm. IMPRESSION: Interval progression of disease, relative to previous CT, with increasedsize of primary mass involving the left tongue/oral cavity, with worseningmandibular erosion into the roots of the molar teeth, as well as increasedsize of adjacent metastatic lymph nodes. Kenneth Mistry M.D. This report has been electronically signed and verified by the Radiologistwhose name is printed above. This report contains privileged and confidential information and isintended solely for the use of the individual or entity to which it isaddressed. If you are not the intended recipient of this report, you arehereby notified that any copying, distribution, dissemination or actiontaken in relation to the contents of this report is strictly prohibitedand may be unlawful. If you have received this report in error, pleasenotify the sender immediately at [phone] and permanently delete theoriginal report and destroy any copies or printouts. Jennifer Ortez MD IMG CT PROCEDURES Final Resu lt * PET OUTSIDE IMAGES (07/09/2025 10:02 AM EDT) Anatomical Region Laterality Modality Nuclear Medicine 07/09/2025 10:0 2 AM EDT Alvaro Adrian DMD, MD IMG NM PROCEDURES Final Result * Serum Drug Screen (07/04/2025 1:19 PM EDT) Only the most recent of2 resultswithin the time period is included. 9 Carboxy THC <5 <5 ng/mL 07/06/2025 4:01 PM EDT [facility] Alprazolam <5 <5 ng/mL 07/06/2025 4:01 PM EDT [facility] Amphetamine <10 <10 ng/mL 07/06/2025 4:01 PM EDT [facility] Benzolyecgonine <20 <20 ng/mL 4:01 PM EDT [facility] Buprenorphine <1.0 <1.0 ng/mL 07/06/2025 4:01 PM EDT [facility] [facility] Butalbital <50 <50 ng/mL 07/06/2025 4:01 PM EDT [facility] Clonazepam <5 <5 ng/mL 07/06/2025 4:01 PM EDT [facility] Codeine <5 <5 ng/mL 07/06/2025 4:01 PM EDT [facility] Diazepam <5 <5 ng/mL 07/06/2025 4:01 PM EDT [facility] Fentanyl <1 <1 ng/mL 07/06/2025 4:01 PM EDT [facility] Hydrocodone <2 <2 ng/mL 07/06/2025 4:01 PM EDT [facility] Hydromorphone <5 <5 ng/mL 07/06/2025 4:01 PM EDT [facility] Lorazepam <5 <5 ng/mL 07/06/2025 4:01 PM EDT [facility] MDA <10 <10 ng/mL 07/06/2025 4:01 PM EDT [facility] MDMA <10 <10 ng/mL 07/06/2025 4:01 PM EDT [facility] Meperidine <5 <5 ng/mL 07/06/2025 4:01 PM EDT [facility] Methadone <10 <10 ng/mL 07/06/2025 4:01 PM EDT [facility] Methadone Metabolite <10 <10 ng/mL 06/15 4:01 PM EDT [facility] Methamphetamine <10 <10 ng/mL 4:01 PM EDT [facility] Midazolam <5 <5 ng/mL 07/06/2025 4:01 PM EDT [facility] Morphine <2 <2 ng/mL 07/06/2025 4:01 PM EDT [facility] Norbuprenorphine <5 <5 ng/mL 07/06/20 4:01 PM EDT [facility] Nordiazepam <10 <10 ng/mL 07/06/2025 4:01 PM EDT [facility] Oxazepam <5 <5 ng/mL 07/06/2025 4:01 PM EDT [facility] Oxycodone <2 <2 ng/mL 07/06/2025 4:01 PM EDT [facility] Oxymorphone <2 <2 ng/mL 07/06/2025 4:01 PM EDT [facility] Phenobarbital <50 <50 ng/mL 07/06/2025 4:01 PM EDT [facility] Temazepam <5 <5 ng/mL 07/06/2025 4:01 PM EDT [facility] Tramadol <20 <20 ng/mL 07/06/2025 4:01 PM EDT [facility] Blood Venous blood specimen / Unknown Venipuncture / Unknown 07/04/2025 1:19 PM EDT 07/04/2025 1:49 PM EDT Narrative [facility] - 07/06/2025 4:01 PM EDT Test performed by LC-MS/MS at the [facility]. This test was developed and its performance characteristics determined by [facility]. It has not been cleared or approved by the FDA. The laboratory is regulated under CLIA as qualified to perform high-complexity testing. This test is used for clinical purposes. Jennifer Ortez MD LAB BLOOD ORDERABLES Final R esult Performing Organization Address City/[facility]/[place] [address] * TSH reflex FT4 (07/04/2025 1:18 PM EDT) Thyroid Stimulating Hormone, Plasma 2.16 0.40 - 4.20 uIU/mL 07/04/2025 2:27 PM EDT [facility] Blood Venous blood specimen / Unknown Venipuncture / Unknown 07/04/2025 1:18 PM EDT 07/04/2025 1:49 PM EDT Jennifer Ortez MD LAB BLOOD ORDERABLES Final R esult [facility] [address] [place] [address] * CT Angio Abdomen Pelvis w Runoff (07/03/2025 11:43 AM EDT) Anatomical Region Laterality Modality Pelvis and lower extremeties Bilateral Com puted Tomography Impressions 07/03/2025 2:08 PM EDT No significant peripheral vascular disease, with three-vessel runoff to both ankles. CRITICAL RESULT: No COMMUNICATION: Per this written report. Drafted by Usman Trinidad MD on 07/03/2025 2:01 PM Final report signed by Usman Trinidad MD on 07/03/2025 2:08 PM Narrative 07/03/2025 2:08 PM EDT CLINICAL INDICATION: Patency of leg vessels for fibula free flap. TECHNIQUE: A CT angiogram of the abdomen, pelvis, and bilateral lower extremities was performed in arterial phase. A total of 150 mL of Omnipaque 350 was administered during the examination. Advanced 3D workstation manipulation and review of the data set was performed by the interpreting physician to further define anatomy and possible pathology. Images of areas of interest were created utilizing various techniques. These images were saved and transferred to PACS if significant. The imaging protocol used in this examination was optimized to achieve diagnostic quality with the lowest possible radiation dose in accordance with the principles of ALARA (As Low As Reasonably Achievable). COMPARISON: None VASCULAR FINDINGS: Abdominal aorta is normal in caliber throughout. All major visceral vessels are patent. There is some mild stenosis at the origin of the left renal artery. Incidental note is made of an accessory right renal artery supplying the lower pole. Bilateral common, internal, and external iliac arteries are nearly free of atherosclerotic disease, with no evidence of stenosis. Common, superficial, and profunda femoral arteries are widely patent. There is some minimal atherosclerotic plaque noted in both proximal SFAs. Bilateral popliteal arteries are widely patent. All 3 calf vessels are widely patent bilaterally. Normal perfusion of the dorsalis pedis and plantar arches the feet. ANCILLARY FINDINGS: No suspicious solid abdominal organ lesions. No dominant focal or pelvic adenopathy. Pelvic viscera are unremarkable in appearance. No significant GI tract abnormalities. Procedure Note Usman Trinidad MD - 07/03/2025 CLINICAL INDICATION: Patency of leg vessels for fibula free flap. TECHNIQUE: A CT angiogram of the abdomen, pelvis, and bilateral lower extremities wasperformed in arterial phase. A total of 150 mL of Omnipaque 350 wasadministered during the examination. Advanced 3D workstation manipulationand review of the data set was performed by the interpreting physician tofurther define anatomy and possible pathology. Images of areas ofinterest were created utilizing various techniques. These images weresaved and transferred to PACS if significant. The imaging protocol used in this examination was optimized to achievediagnostic quality with the lowest possible radiation dose in accordancewith the principles of ALARA (As Low As Reasonably Achievable). COMPARISON: None VASCULAR FINDINGS: Abdominal aorta is normal in caliber throughout. All major visceralvessels are patent. There is some mild stenosis at the origin of the leftrenal artery. Incidental note is made of an accessory right renal arterysupplying the lower pole. Bilateral common, internal, and external iliacarteries are nearly free of atherosclerotic disease, with no evidence ofstenosis. Common, superficial, and profunda femoral arteries are widely patent.There is some minimal atherosclerotic plaque noted in both proximal SFAs.Bilateral popliteal arteries are widely patent. All 3 calf vessels are widely patent bilaterally. Normal perfusion of thedorsalis pedis and plantar arches the feet. ANCILLARY FINDINGS: No suspicious solid abdominal organ lesions. No dominant focal or pelvicadenopathy. Pelvic viscera are unremarkable in appearance. No significantGI tract abnormalities. IMPRESSION: No significant peripheral vascular disease, with three-vessel runoff toboth ankles. CRITICAL RESULT: No COMMUNICATION: Per this written report. Drafted by Usman Trinidad MD on 07/03/2025 2:01 PM Final report signed by Usman Trinidad MD on 07/03/2025 2:08 PM us Alvaro Adrian DMD, MD IMG CT PROCEDURES Final Result * Thyroid Stimulating Hormone, Plasma (07/01/2025 3:31 PM EDT) Thyroid Stimulating Hormone, Plasma 2.12 0.40 - 4.20 uIU/mL 07/01/2025 5:01 PM EDT [facility] Blood Venous blood specimen / Unknown Venipuncture / Unknown 07/01/2025 3:31 PM EDT 07/01/2025 4:19 PM EDT us Jennifer Ortez MD LAB BLOOD ORDERABLES Final R esult [facility] [address] [place] [address] from Last 3 Months Insurance [employer] Advance Directives Documents on File Type Date Recorded 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
[2025-09-26 11:18] LABS: Alanine Aminotransferase 153 U/L (12-78); Albumin Level 4.7 g/dl (3.5-5.0); Albumin/Globulin Ratio 1.4 (1.1-1.8); Alkaline Phosphatase 70 U/L (38-126); Anion Gap 13.3 mEq/L (5-15); Aspartate Amino Transferase 113 U/L (17-59); Bilirubin,Total 0.3 mg/dl (0.2-1.3); Blood Urea Nitrogen 22 mg/dl (9-20); Calcium 9.8 mg/dl (8.4-10.2); Carbon Dioxide 26 mmol/L (22.0-30.0); Chloride 99 mmol/L (98-107); Creatinine,Serum 0.70 mg/dl (0.66-1.25); Estimated Glomerular Filt Rate 118 ml/min (>60); GFR (African American) 143 ML/MIN (>60); Globulin 3.4 g/dL (1.3-3.2); Glucose 98 mg/dl (74-100); Potassium 4.3 mmoL/L (3.5-5.1); Sodium 134 mmol/L (136-145); Total Protein,Serum 8.1 g/dl (6.3-8.2)
[2025-09-26 11:23] LABS: Hematocrit 39.4 % (42.0-52.0); Hemoglobin 12.9 g/dL (14.1-18.0); Immature Granulocytes % 0.1 %; Mean Corpuscular HGB Conc 32.7 g/dL (31.8-35.4); Mean Corpuscular Hemoglobin 30.8 pg (27.0-31.2); Mean Corpuscular Volume 94.0 fl (80-94); Nucleated Red Blood Cells % 0 %; Platelet Count 298 K/mm3 (142-424); Red Blood Count 4.19 M/mm3 (4.60-6.20); Red Cell Distribution Width-SD 42.7 fL; White Blood Count 8.1 K/mm3 (4.8-10.8)
--- OUTSIDE RECORDS SUMMARY | 2025-10-30 19:00 | XMS_ITS | Clinical Summary ---
Author Organization Unknown Care Team Providers Care Payroll And Benefits Specialist Name Role Phone MARA MAI, WIL Unavailable Unavailable PARTH RN, TESS Unavailable Unavailable JH METZGERN, AUDELIA Unavailable Unav ailable RENAN PT, JOSR Unavailable Unavailable MAGALI MANAGER BUSINESS PLANNING, BRAD Unavailable Unavailable KEL OT, IVAN Unavailable Unavailable TINY ST, DAY Unavailable Unavailable Payers Payer Name Policy Type Policy Number Effective Date Expira tion Date [employer].COMM.PDGM.C.AUTH ADMISSIONS.CODEREQUEST.OTHER S.AUTH NA Problems Condition Name Condition Details Condition Category Status Onset Date Resolution Date Last Treatment Date Treating Clinician Comments AFTERCARE FOLLOWING SURGERY FOR NEOPLASM Active 2024-11 00:00: 00 MALIGNANT NEOPLASM OF FLOOR OF MOUTH, UNSPECIFIED Active 2024-11 00:00: 00 MALIGNANT NEOPLASM OF [place] Active 2024-11 00:00: 00 ATHSCL HEART DISEASE OF [place] CORONARY ARTERY W/O ANG PCTRS Active 2024-11 [...] OF OTHER ORGANS Active 2024-11 00:00: 00 OPERATIONS ASST (CURRENT) USE OF ASPIRIN Active 2024-11 00:00: 00 PRESENCE OF CORONARY [...] Comments Components ramipril 2.5 mg capsule 2024-11 0- 00:00: 00 Yes [id number] HTN 2.5 capsule DAILY 2.5 capsule DAILY (route: oral) Med Classific ation: Cardiovas cular Therapy Agents doxycycline monohydrate 50 mg capsule 2024-11 00:00: 00 09-02 00:00 :00 No [id number] Per instruc tions Per instructio ns (route: oral) Med Classific ation: Anti-Infe ctive Agents aspirin 325 mg tablet 2024-11 00:00: 00 Yes [id number] SUPP 1 tablet DAILY 1 tablet DAILY (route: oral) Med Classific ation: Analgesic , Anti-infl ammatory or Antipyret ic atorvastati n 20 mg tablet 2024-11 00:00: 00 Yes [id number] CHOLESTEROL 20 mg DAILY 20 mg DAILY (route: oral) Med Classific ation: Cardiovas cular Therapy Agents cranberry extract 200 mg capsule 2024-11 00:00: 00 Yes [id number] SUPP 1 capsule DAILY 1 capsule DAILY (route: oral) Med Classific ation: Alternati ve Therapy gabapentin 300 mg capsule 2024-11 00:00: 00 09-24 23:59 :00 No [id number] PAIN 300 mg 3 TIMES DAILY 300 mg 3 TIMES DAILY (route: oral) Med Classific ation: Central Nervous System Agents Isosource 1.5 Sony 0.07 gram-1.5 kcal/mL liquid for tube feed 2024-11 00:00: 00 Yes [id number] SUPP Per instruc tions EVERY 3 HOURS Per instructio ns EVERY 3 HOURS (route: feeding tube) Med Classific ation: Electroly te Balance-N utritiona l Products levothyroxi ne 50 mcg capsule 2024-11 0 00:00: 00 Yes [id number] THYROUD 50 mcg DAILY 50 mcg DAILY (route: oral) Med Classific ation: Endocrine metoprolol succinate ER 50 mg tablet,exte nded release 24 hr 2024-11 00:00: 00 09-24 23:59 :00 No [id number] HTN 50 mg DAILY 50 mg DAILY (route: oral) Med Classific ation: Cardiovas cular Therapy Agents Miralax 17 gram oral powder packet 2024-11 00:00: 00 Yes [id number] BOWELS 1 packet DAILY 1 packet DAILY (route: oral) Med Classific ation: Gastroint estinal Therapy Agents ondansetron 4 mg disintegrat ing tablet 2024-11 00:00: 00 Yes [id number] NAUSEA 4 mg EVERY 8 HOURS 4 mg EVERY 8 HOURS (route: oral) Med Classific ation: Gastroint estinal Therapy Agents oxycodone 5 mg capsule 2024-11 00:00: 00 Yes [id number] PAIN 2 capsule EVERY 6 HOURS 2 capsule EVERY 6 HOURS (route: oral) Med Classific ation: Analgesic , Anti-infl ammatory or Antipyret ic Senna Lax 8.6 mg tablet 2024-11 00:00: 00 Yes [id number] PRN CONSTIPATIO N 8.6 mg DAILY 8.6 mg DAILY (route: oral) Med Classific ation: Gastroint estinal Therapy Agents metoprolol succinate ER 25 mg tablet,exte nded release 24 hr 2024-11 00:00: 00 Yes [id number] BP 0.5 tablet 2 TIMES DAILY 0.5 tablet 2 TIMES DAILY (route: oral) Med Classific ation: Cardiovas cular Therapy Agents Vital Signs Vital Name Observation Time Observation Value Commen ts Temperature 2025-09-25 11:36:00.000 97.2 [degF] Temperature 2025-09-24 [...] [in_us] Height 2025-09-02 14:42:00.000 71 [in_us] Pulse 2025-09-25 11:36:00.000 68 /min Pulse 2025-09-24 12:10:00.000 82 /min Pulse 2025-09-19 15:41:00.000 71 /min Pulse 2025-09-16 16:10:00.000 71 /min Pulse 2025-09-13 13:31:00.000 64 /min Pulse 2025-09-12 14:23:00.000 72 /min Pulse 2025-09-12 12:05:00.000 63 /min Pulse 2025-09-09 14:59:00.000 67 /min Pulse 2025-09-04 16:48:00.000 76 /min Pulse 2025-09-04 15:33:00.000 68 /min Pulse 2025-09-02 14:42:00.000 66 /min O2 Saturation (%) 2025-09-25 11:36:00.000 97 % O2 Saturation (%) 2025-09-24 12:10:00.000 97 % O2 Saturation (%) 2025-09-19 15:41:00.000 95 % O2 Saturation (%) 2025-09-16 16:10:00.000 95 % O2 Saturation (%) 2025-09-13 13:31:00.000 98 % O2 Saturation (%) 2025-09-12 12:05:00.000 98 % O2 Saturation (%) 2025-09-04 15:33:00.000 96 % Respirations 2025-09-25 11:36:00.000 18 /min Respirations 2025-09-24 [...] 2025-09-02 14:42:00.000 199 [lb_av] Systolic Blood Pressure 2025-09-25 11:36:00.000 96 mm[ [...] 14:42:00.000 92 mm[ Hg] Diastolic Blood Pressure 2025-09-25 11:36:00.000 68 mm [...] CONSULTING PHYSICIANS RN TO OBSERVE AND ASSESS, SUPERVISOR ACCOUNTS RECEIVABLE/AMMONIA STILL OPERATOR TO OBSERVE FOR RISK FOR FALLS AND INSTRUCT IN FALL PREVENTION, HOME SAFETY, MEDICATION MANAGEMENT, INFECTION PREVENTION, AND NUTRITION MANAGEMENT. RN/SUPERVISOR ACCOUNTS RECEIVABLE/AMMONIA STILL OPERATOR NURSE MAY PERFORM O2 SATURATION LEVEL ON ADMISSION AND PRN FOR RN TO ASSESS/SUPERVISOR ACCOUNTS RECEIVABLE TO OBSERVE PATIENT, WITH NOTIFICATION TO THE PHYSICIAN IF SATURATION IS 90% IN THE ABSENCE OF MORE SPECIFIC PARAMETERS FROM THE PHYSICIAN. AGENCY MAY PERFORM A RESUMPTION OF CARE VISIT FOLLOWING ANY HOSPITAL ADMISSION. RN/SUPERVISOR ACCOUNTS RECEIVABLE/AMMONIA STILL OPERATOR TO MONITOR CO-MORBID CONDITIONS LISTED ON THE PLAN OF CARE AND ANY NEW CONDITIONS THAT PRESENT THEMSELVES DURING THIS EPISODE TO IDENTIFY CHANGES AND INTERVENE TO MINIMIZE COMPLICATIONS. [code = RN TO OBSERVE, ASSESS, EVALUATE, AND DEVELOP AN INDIVIDUALIZED PLAN OF CARE. AGENCY MAY ACCEPT ORDERS FROM CONSULTING PHYSICIANS RN TO OBSERVE AND ASSESS, SUPERVISOR ACCOUNTS RECEIVABLE/AMMONIA STILL OPERATOR TO OBSERVE FOR RISK FOR FALLS AND INSTRUCT IN FALL PREVENTION, HOME SAFETY, MEDICATION MANAGEMENT, INFECTION PREVENTION, AND NUTRITION MANAGEMENT. RN/SUPERVISOR ACCOUNTS RECEIVABLE/AMMONIA STILL OPERATOR NURSE MAY PERFORM O2 SATURATION LEVEL ON ADMISSION AND PRN FOR RN TO ASSESS/SUPERVISOR ACCOUNTS RECEIVABLE TO OBSERVE PATIENT, WITH NOTIFICATION TO THE PHYSICIAN IF SATURATION IS 90% IN THE ABSENCE OF MORE SPECIFIC PARAMETERS FROM THE PHYSICIAN. AGENCY MAY PERFORM A RESUMPTION OF CARE VISIT FOLLOWING ANY HOSPITAL ADMISSION. RN/SUPERVISOR ACCOUNTS RECEIVABLE/AMMONIA STILL OPERATOR TO MONITOR CO-MORBID CONDITIONS LISTED ON THE PLAN OF CARE AND ANY NEW CONDITIONS THAT PRESENT THEMSELVES DURING THIS EPISODE TO IDENTIFY CHANGES AND INTERVENE TO MINIMIZE COMPLICATIONS.] Future Scheduled Test MEDICATION MANAGEMENT; RN/SUPERVISOR ACCOUNTS RECEIVABLE/AMMONIA STILL OPERATOR TO REVIEW MEDICATIONS FOR INTERACTIONS, EFFECTIVENESS OF DRUG THERAPY, AND SIGNS/SYMPTOMS OF ADVERSE REACTIONS. MAY INSTRUCT AND REINFORCE MEDICATION TEACHING RELATED TO THE USE OF MEDICATIONS, DOSAGE, FREQUENCY, PURPOSE, SIDE EFFECTS, AND TO REPORT COMPLICATIONS. [code = MEDICATION MANAGEMENT; RN/SUPERVISOR ACCOUNTS RECEIVABLE/AMMONIA STILL OPERATOR TO REVIEW MEDICATIONS FOR INTERACTIONS, EFFECTIVENESS OF DRUG THERAPY, AND SIGNS/SYMPTOMS OF ADVERSE REACTIONS. MAY INSTRUCT AND REINFORCE MEDICATION TEACHING RELATED TO THE USE OF MEDICATIONS, DOSAGE, FREQUENCY, PURPOSE, SIDE EFFECTS, AND TO REPORT COMPLICATIONS.] Future Scheduled Test RISK FOR H OSPITALIZATION; RN TO ASSESS/TEACH, AMMONIA STILL OPERATOR/SUPERVISOR ACCOUNTS RECEIVABLE TO OBSERVE/TEACH PATIENT/CAREGIVER ON RISK FOR HOSPITALIZATION/EMERGENCY ROOM VISITS, TEACH SIGNS AND SYMPTOMS THAT PUT PATIENT AT RISK, WHEN TO NOTIFY NURSE/PHYSICIAN OF COMPLICATIONS/DECLINE, AND WHEN TO CALL 911. [code = RISK FOR HOSPITALIZATION; RN TO ASSESS/TEACH, AMMONIA STILL OPERATOR/SUPERVISOR ACCOUNTS RECEIVABLE TO OBSERVE/TEACH PATIENT/CAREGIVER ON RISK FOR HOSPITALIZATION/EMERGENCY ROOM VISITS, TEACH SIGNS AND SYMPTOMS THAT PUT PATIENT AT RISK, WHEN TO NOTIFY NURSE/PHYSICIAN OF COMPLICATIONS/DECLINE, AND WHEN TO CALL 911.] Future Scheduled Test RN/SUPERVISOR ACCOUNTS RECEIVABLE/AMMONIA STILL OPERATOR TO PERFORM/TEACH INCISION CARE TO AREA: IRRIGATE/CLEANSE WITH SOAP AND WATER SUTURE SITE TO NECK AND TRACH SITE DAILY AND PRN IF SOILED, MAY COVER TRACH SITE WITH DSD, WOUND VAC AND SKIN GRAFT SITE TO REMAIN COVERED UNTIL PLASTICS APT ON 09/03/25 AND FURTHER ORDERS [code = RN/SUPERVISOR ACCOUNTS RECEIVABLE/AMMONIA STILL OPERATOR TO PERFORM/TEACH INCISION CARE TO AREA: IRRIGATE/CLEANSE WITH SOAP AND WATER SUTURE SITE TO NECK AND TRACH SITE DAILY AND PRN IF SOILED, MAY COVER TRACH SITE WITH DSD, WOUND VAC AND SKIN GRAFT SITE TO REMAIN COVERED UNTIL PLASTICS APT ON 09/03/25 AND FURTHER ORDERS] Future Scheduled Test RN TO ASSE SS/TEACH, SUPERVISOR ACCOUNTS RECEIVABLE/AMMONIA STILL OPERATOR TO OBSERVE/TEACH SURGICAL AFTERCARE MANAGEMENT TO AVOID HOSPITALIZATION. [code = RN TO ASSESS/TEACH, SUPERVISOR ACCOUNTS RECEIVABLE/AMMONIA STILL OPERATOR TO OBSERVE/TEACH SURGICAL AFTERCARE MANAGEMENT TO AVOID HOSPITALIZATION.] Future Scheduled Test PAIN MANAG EMENT; RN TO ASSESS AND TEACH, AMMONIA STILL OPERATOR/SUPERVISOR ACCOUNTS RECEIVABLE TO OBSERVE AND TEACH AND PROVIDE EDUCATION ON PAIN MANAGEMENT TECHNIQUES. [code = PAIN MANAGEMENT; RN TO ASSESS AND TEACH, AMMONIA STILL OPERATOR/SUPERVISOR ACCOUNTS RECEIVABLE TO OBSERVE AND TEACH AND PROVIDE EDUCATION ON PAIN MANAGEMENT TECHNIQUES.] Future Scheduled Test MALNUTRITI ON MANAGEMENT; RN TO ASSESS AND TEACH, AMMONIA STILL OPERATOR/SUPERVISOR ACCOUNTS RECEIVABLE TO OBSERVE AND TEACH AND INSTRUCT PATIENT / CAREGIVER ON INTERVENTIONS TO IMPROVE NUTRITIONAL INTAKE AND PATIENT WELLBEING. [code = MALNUTRITION MANAGEMENT; RN TO ASSESS AND TEACH, AMMONIA STILL OPERATOR/SUPERVISOR ACCOUNTS RECEIVABLE TO OBSERVE AND TEACH AND INSTRUCT PATIENT / CAREGIVER ON INTERVENTIONS TO IMPROVE NUTRITIONAL INTAKE AND PATIENT WELLBEING.] Future Scheduled Test CANCER MAN AGEMENT; RN TO ASSESS AND TEACH, AMMONIA STILL OPERATOR/SUPERVISOR ACCOUNTS RECEIVABLE TO OBSERVE AND TEACH AND PROVIDE EDUCATION ON CANCER. [code = CANCER MANAGEMENT; RN TO ASSESS AND TEACH, AMMONIA STILL OPERATOR/SUPERVISOR ACCOUNTS RECEIVABLE TO OBSERVE AND TEACH AND PROVIDE EDUCATION ON CANCER.] Future Scheduled Test FALL REDUC TION MANAGEMENT; RN TO ASSESS AND OBSERVE, SUPERVISOR ACCOUNTS RECEIVABLE/AMMONIA STILL OPERATOR TO OBSERVE FALL RISK FACTORS AND EDUCATE PATIENT/CAREGIVER ON STRATEGIES TO MINIMIZE THE RISK OF FALLING. [code = FALL REDUCTION MANAGEMENT; RN TO ASSESS AND OBSERVE, SUPERVISOR ACCOUNTS RECEIVABLE/AMMONIA STILL OPERATOR TO OBSERVE FALL RISK FACTORS AND [...] OF COMPLICATIONS/DECLINE AND WHEN TO CALL 911. Progress Notes Progress Notes <paragraph>[Visit Date: 2024 by AUDELIA PEÑALOZA LPN]:</paragraph><paragraph>PT SEEN FOR SNV, SKILLED NEED FOR EDUCATION REGARDING MEDS WOUND CARE AND DISEASE PROCESS, HOMEBOUND WITH TAXING EFFORT REQUIRING ASSIST AND CANE TO LEAVE HOME. ASSESSMENT COMPLETED CHARTED, MEDS REVIEWED, METOPROLOL ADJUSTED IN CHART BUT IS PTS DOSE HES BEEN TAKING AND GABAPENTIN DCD PT STATES NOT TAKING. BP LOW AGAIN WITHSOME DIZZINESS IN AM NONE CURRENTLY. SN NOTIFIED ANGELINE/MERVIN MILLER MD OF SS/LOW BP, SN STATED HE PROBABLY NEEDS HIS BP MEDS REDUCED OR ELIMINATED, ANGELINE STATES THE OFFICE WILL CALL PT BACK WITH INSTRUCTION AFTER MD REVIEWS. SN ALSO NOTIFIED OF NOT TAKING GABAPENTIN, ANGELINE STATES ITS NOT ON HER LIST ANYWAY. SN INSTRUCTED IN FALL PREVENTION AND SAFETY</paragraph><paragraph></paragraph><paragraph>WOUND CARE PROVIDED ORDERED WITHOUT COMPLAINTS NO SS INFECTION. CALL PHOTOGRAPHIC EQUIPMENT TECHNICIAN WITH CONCERNS OR 911 FOR EMERGENCIES, PT TAUGHT BACK UNDERSTANDING.</paragraph> Encounters Start Date/Time End Date/Time Encounter Type Admission Type Attending [facility] Facility Care Department Encounter ID Discharge Date Discharge Status Discharge Condition Discharge Reason Percent Goals Met 2025-09-02 00:00:00 2025-10-31 00:00:00 Outpatient NEW ADMISSION TESS ALAB [facility] [id number] 38.10
--- OUTSIDE RECORDS SUMMARY | 2025-10-30 19:00 | XMS_ITS | Clinical Summary ---
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 Active 2024-11 00:00: [...] mg capsule 2024-11 0- 00:00: 00 Yes [id number] HTN 2.5 capsule DAILY 2.5 capsule DAILY (route: oral) Med Classific ation: Cardiovas cular Therapy Agents doxycycline monohydrate 50 mg capsule 2024-11 00:00: 00 09-02 00:00 :00 No [id number] Per instruc tions Per instructio ns (route: oral) Med Classific ation: Anti-Infe ctive Agents aspirin 325 mg tablet 2024-11 00:00: 00 Yes [id number] SUPP 1 tablet DAILY 1 tablet DAILY (route: oral) Med Classific ation: Analgesic , Anti-infl ammatory or Antipyret ic atorvastati n 20 mg tablet 2024-11 00:00: 00 Yes [id number] CHOLESTEROL 20 mg DAILY 20 mg DAILY (route: oral) Med Classific ation: Cardiovas cular Therapy Agents cranberry extract 200 mg capsule 2024-11 00:00: 00 Yes [id number] SUPP 1 capsule DAILY 1 capsule DAILY (route: oral) Med Classific ation: Alternati ve Therapy gabapentin 300 mg capsule 2024-11 00:00: 00 09-24 23:59 :00 No [id number] PAIN 300 mg 3 TIMES DAILY 300 mg 3 TIMES DAILY (route: oral) Med Classific ation: Central Nervous System Agents Isosource 1.5 Sony 0.07 gram-1.5 kcal/mL liquid for tube feed 2024-11 00:00: 00 Yes [id number] SUPP Per instruc tions EVERY 3 HOURS Per instructio ns EVERY 3 HOURS (route: feeding tube) Med Classific ation: Electroly te Balance-N utritiona l Products levothyroxi ne 50 mcg capsule 2024-11 0 00:00: 00 Yes [id number] THYROUD 50 mcg DAILY 50 mcg DAILY (route: oral) Med Classific ation: Endocrine metoprolol succinate ER 50 mg tablet,exte nded release 24 hr 2024-11 00:00: 00 09-24 23:59 :00 No [id number] HTN 50 mg DAILY 50 mg DAILY (route: oral) Med Classific ation: Cardiovas cular Therapy Agents Miralax 17 gram oral powder packet 2024-11 00:00: 00 Yes [id number] BOWELS 1 packet DAILY 1 packet DAILY (route: oral) Med Classific ation: Gastroint estinal Therapy Agents ondansetron 4 mg disintegrat ing tablet 2024-11 00:00: 00 Yes [id number] NAUSEA 4 mg EVERY 8 HOURS 4 mg EVERY 8 HOURS (route: oral) Med Classific ation: Gastroint estinal Therapy Agents oxycodone 5 mg capsule 2024-11 00:00: 00 Yes [id number] PAIN 2 capsule EVERY 6 HOURS 2 capsule EVERY 6 HOURS (route: oral) Med Classific ation: Analgesic , Anti-infl ammatory or Antipyret ic Senna Lax 8.6 mg tablet 2024-11 00:00: 00 Yes [id number] PRN CONSTIPATIO N 8.6 mg DAILY 8.6 mg DAILY (route: oral) Med Classific ation: Gastroint estinal Therapy Agents metoprolol succinate ER 25 mg tablet,exte nded release 24 hr 2024-11 00:00: 00 Yes [id number] BP 0.5 tablet 2 TIMES DAILY 0.5 [...] CONSULTING PHYSICIANS RN TO OBSERVE AND ASSESS, BEAD MACHINE OPERATOR/CHANNEL ACCOUNT MANAGER TO OBSERVE FOR RISK FOR FALLS AND INSTRUCT IN FALL PREVENTION, HOME SAFETY, MEDICATION MANAGEMENT, INFECTION PREVENTION, AND NUTRITION MANAGEMENT. RN/BEAD MACHINE OPERATOR/CHANNEL ACCOUNT MANAGER NURSE MAY PERFORM O2 SATURATION LEVEL ON ADMISSION AND PRN FOR RN TO ASSESS/BEAD MACHINE OPERATOR TO OBSERVE PATIENT, WITH NOTIFICATION TO THE PHYSICIAN IF SATURATION IS 90% IN THE ABSENCE OF MORE SPECIFIC PARAMETERS FROM THE PHYSICIAN. AGENCY MAY PERFORM A RESUMPTION OF CARE VISIT FOLLOWING ANY HOSPITAL ADMISSION. RN/BEAD MACHINE OPERATOR/CHANNEL ACCOUNT MANAGER TO MONITOR CO-MORBID CONDITIONS LISTED ON THE PLAN OF CARE AND ANY NEW CONDITIONS THAT PRESENT THEMSELVES DURING THIS EPISODE TO IDENTIFY CHANGES AND INTERVENE TO MINIMIZE COMPLICATIONS. [code = RN TO OBSERVE, ASSESS, EVALUATE, AND DEVELOP AN INDIVIDUALIZED PLAN OF CARE. AGENCY MAY ACCEPT ORDERS FROM CONSULTING PHYSICIANS RN TO OBSERVE AND ASSESS, BEAD MACHINE OPERATOR/CHANNEL ACCOUNT MANAGER TO OBSERVE FOR RISK FOR FALLS AND INSTRUCT IN FALL PREVENTION, HOME SAFETY, MEDICATION MANAGEMENT, INFECTION PREVENTION, AND NUTRITION MANAGEMENT. RN/BEAD MACHINE OPERATOR/CHANNEL ACCOUNT MANAGER NURSE MAY PERFORM O2 SATURATION LEVEL ON ADMISSION AND PRN FOR RN TO ASSESS/BEAD MACHINE OPERATOR TO OBSERVE PATIENT, WITH NOTIFICATION TO THE PHYSICIAN IF SATURATION IS 90% IN THE ABSENCE OF MORE SPECIFIC PARAMETERS FROM THE PHYSICIAN. AGENCY MAY PERFORM A RESUMPTION OF CARE VISIT FOLLOWING ANY HOSPITAL ADMISSION. RN/BEAD MACHINE OPERATOR/CHANNEL ACCOUNT MANAGER TO MONITOR CO-MORBID CONDITIONS LISTED ON THE PLAN OF CARE AND ANY NEW CONDITIONS THAT PRESENT THEMSELVES DURING THIS EPISODE TO IDENTIFY CHANGES AND INTERVENE TO MINIMIZE COMPLICATIONS.] Future Scheduled Test MEDICATION MANAGEMENT; RN/BEAD MACHINE OPERATOR/CHANNEL ACCOUNT MANAGER TO REVIEW MEDICATIONS FOR INTERACTIONS, EFFECTIVENESS OF DRUG THERAPY, AND SIGNS/SYMPTOMS OF ADVERSE REACTIONS. MAY INSTRUCT AND REINFORCE MEDICATION TEACHING RELATED TO THE USE OF MEDICATIONS, DOSAGE, FREQUENCY, PURPOSE, SIDE EFFECTS, AND TO REPORT COMPLICATIONS. [code = MEDICATION MANAGEMENT; RN/BEAD MACHINE OPERATOR/CHANNEL ACCOUNT MANAGER TO REVIEW MEDICATIONS FOR INTERACTIONS, EFFECTIVENESS OF DRUG THERAPY, AND SIGNS/SYMPTOMS OF ADVERSE REACTIONS. MAY INSTRUCT AND REINFORCE MEDICATION TEACHING RELATED TO THE USE OF MEDICATIONS, DOSAGE, FREQUENCY, PURPOSE, SIDE EFFECTS, AND TO REPORT COMPLICATIONS.] Future Scheduled Test RISK FOR H OSPITALIZATION; RN TO ASSESS/TEACH, CHANNEL ACCOUNT MANAGER/BEAD MACHINE OPERATOR TO OBSERVE/TEACH PATIENT/CAREGIVER ON RISK FOR HOSPITALIZATION/EMERGENCY ROOM VISITS, TEACH SIGNS AND SYMPTOMS THAT PUT PATIENT AT RISK, WHEN TO NOTIFY NURSE/PHYSICIAN OF COMPLICATIONS/DECLINE, AND WHEN TO CALL 911. [code = RISK FOR HOSPITALIZATION; RN TO ASSESS/TEACH, CHANNEL ACCOUNT MANAGER/BEAD MACHINE OPERATOR TO OBSERVE/TEACH PATIENT/CAREGIVER ON RISK FOR HOSPITALIZATION/EMERGENCY ROOM VISITS, TEACH SIGNS AND SYMPTOMS THAT PUT PATIENT AT RISK, WHEN TO NOTIFY NURSE/PHYSICIAN OF COMPLICATIONS/DECLINE, AND WHEN TO CALL 911.] Future Scheduled Test RN/BEAD MACHINE OPERATOR/CHANNEL ACCOUNT MANAGER TO PERFORM/TEACH INCISION CARE TO AREA: IRRIGATE/CLEANSE WITH SOAP AND WATER SUTURE SITE TO NECK AND TRACH SITE DAILY AND PRN IF SOILED, MAY COVER TRACH SITE WITH DSD, WOUND VAC AND SKIN GRAFT SITE TO REMAIN COVERED UNTIL PLASTICS APT ON 09/03/25 AND FURTHER ORDERS [code = RN/BEAD MACHINE OPERATOR/CHANNEL ACCOUNT MANAGER TO PERFORM/TEACH INCISION CARE TO AREA: IRRIGATE/CLEANSE WITH SOAP AND WATER SUTURE SITE TO NECK AND TRACH SITE DAILY AND PRN IF SOILED, MAY COVER TRACH SITE WITH DSD, WOUND VAC AND SKIN GRAFT SITE TO REMAIN COVERED UNTIL PLASTICS APT ON 09/03/25 AND FURTHER ORDERS] Future Scheduled Test RN TO ASSE SS/TEACH, BEAD MACHINE OPERATOR/CHANNEL ACCOUNT MANAGER TO OBSERVE/TEACH SURGICAL AFTERCARE MANAGEMENT TO AVOID HOSPITALIZATION. [code = RN TO ASSESS/TEACH, BEAD MACHINE OPERATOR/CHANNEL ACCOUNT MANAGER TO OBSERVE/TEACH SURGICAL AFTERCARE MANAGEMENT TO AVOID HOSPITALIZATION.] Future Scheduled Test PAIN MANAG EMENT; RN TO ASSESS AND TEACH, CHANNEL ACCOUNT MANAGER/BEAD MACHINE OPERATOR TO OBSERVE AND TEACH AND PROVIDE EDUCATION ON PAIN MANAGEMENT TECHNIQUES. [code = PAIN MANAGEMENT; RN TO ASSESS AND TEACH, CHANNEL ACCOUNT MANAGER/BEAD MACHINE OPERATOR TO OBSERVE AND TEACH AND PROVIDE EDUCATION ON PAIN MANAGEMENT TECHNIQUES.] Future Scheduled Test MALNUTRITI ON MANAGEMENT; RN TO ASSESS AND TEACH, CHANNEL ACCOUNT MANAGER/BEAD MACHINE OPERATOR TO OBSERVE AND TEACH AND INSTRUCT PATIENT / CAREGIVER ON INTERVENTIONS TO IMPROVE NUTRITIONAL INTAKE AND PATIENT WELLBEING. [code = MALNUTRITION MANAGEMENT; RN TO ASSESS AND TEACH, CHANNEL ACCOUNT MANAGER/BEAD MACHINE OPERATOR TO OBSERVE AND TEACH AND INSTRUCT PATIENT / CAREGIVER ON INTERVENTIONS TO IMPROVE NUTRITIONAL INTAKE AND PATIENT WELLBEING.] Future Scheduled Test CANCER MAN AGEMENT; RN TO ASSESS AND TEACH, CHANNEL ACCOUNT MANAGER/BEAD MACHINE OPERATOR TO OBSERVE AND TEACH AND PROVIDE EDUCATION ON CANCER. [code = CANCER MANAGEMENT; RN TO ASSESS AND TEACH, CHANNEL ACCOUNT MANAGER/BEAD MACHINE OPERATOR TO OBSERVE AND TEACH AND PROVIDE EDUCATION ON CANCER.] Future Scheduled Test FALL REDUC TION MANAGEMENT; RN TO ASSESS AND OBSERVE, BEAD MACHINE OPERATOR/CHANNEL ACCOUNT MANAGER TO OBSERVE FALL RISK FACTORS AND EDUCATE PATIENT/CAREGIVER ON STRATEGIES TO MINIMIZE THE RISK OF FALLING. [code = FALL REDUCTION MANAGEMENT; RN TO ASSESS AND OBSERVE, BEAD MACHINE OPERATOR/CHANNEL ACCOUNT MANAGER TO OBSERVE FALL RISK FACTORS AND EDUCATE [...] ORDERED WITHOUT COMPLAINTS NO SS INFECTION. CALL LAPPING MACHINE SET UP OPERATOR WITH CONCERNS OR 911 FOR EMERGENCIES, PT TAUGHT BACK UNDERSTANDING.</paragraph> Encounters Start Date/Time End Date/Time Encounter Type Admission Type Attending [facility] Facility Care Department Encounter ID Discharge Date Discharge Status Discharge Condition Discharge Reason Percent Goals Met 2025-09-02 00:00:00 2025-10-31 00:00:00 Outpatient NEW ADMISSION TESS ALBA [facility] [id number] 38.10
== END 2025-09-26 23:59 | disposition home or self-care (01) ==
PROVIDERS: PCP Family Medicine; Visit Provider Internal Medicine Medical Oncology
DX: C02.2 Malignant neoplasm of ventral surface of tongue (principal)
CPT/HCPCS: 36415; 80053; 85025

== ENCOUNTER 2025-10-15 09:38 | Outpatient (CLI) | payer OTHER, SELFPAY ==
--- OUTSIDE RECORDS SUMMARY | 2025-08-19 04:29 | XMS_ITS | Encounter Summary ---
Author Organization [facility] Address [address] [place] [address] Care Team Providers [employer] Name Role Phone Chandler Christina TERE Primary Care Provider Maxwell White DMD Unavailable [phone] Reason for Referral * Consultation (Urgent) - Closed Specialty Diagnoses / Procedures Referred By Fausto honeycutt Referred To Contact Plastic Surgery Diagnoses Wound of right lower extremity, initial encounter Alvaro Adrian DMD, MD [address] [facility] [address] [place] [address] Phone: tel: fax: Referral ID Status Reason Start Date Expiration Date V isits Requested Visits Authorized [id number] Closed Specialty Services Required 08/30/2025 03/01/2027 [address] Santana * Home Health (Routine) - Authorized Specialty Diagnoses / Procedures Referred By Fausto t Referred To Contact Home Health Services / Home Infusion and Injection Services Diagnoses Floor of mouth squamous cell carcinoma Alvaro Adrian DMD, MD [address] [facility] [address] [place] [address] Phone: tel: fax: Referral ID Status Reason Start Date Expiration Date Visits Requested Visits Authorized [id number] Authorized Specialty Services Required 02/22/2027 999 999 * Home Health (Routine) - Authorized Specialty Diagnoses / Procedures Referred By Fausto honeycutt Referred To Contact Home Health Services Diagnoses Floor of mouth squamous cell carcinoma Alvaro Adrian DMD, MD [address] [address] Phone: tel: fax: Referral ID Status Reason Start Date Expiration Date Visits Requested Visits Authorized [id number] Authorized Specialty Services Required 08/22/2025 02/21/2027 999 999 Reason for Visit * Auth/Cert (Routine) Specialty Diagnoses / Procedures Referred By Fausto honeycutt Referred To Contact 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 [C04.9] Procedures VT BONE-SKIN GRAFT, MICROVASCULAR VT RECMPL WND HEAD,FAC,HAND 2.6-7.5 CM VT REPR,FACE,GENITAL,HAND,FT+5 CMCM/< VT LAYR CLOS WND REST BODY 12.6-20 CM VT RECONSTR MANDIBLE,BONE PLATE VT REMV MALIG JAW BONE RADICAL VT REMOVAL NODES, NECK,CERV CMPLT VT PART REMOVAL TONGUE,<1/2 VT BONE-SKIN GRAFT, MICROVASCULAR VT RECONSTR MANDIBLE,BONE PLATE VT RECMPL WND HEAD,FAC,HAND 2.6-7.5 CM VT REPR,FACE,GENITAL,HAND,FT+5 CMCM/< VT LAYR CLOS WND REST BODY 12.6-20 CM VT TRACHEOSTOMY, PLANNED Left mandibular reconstruction with right [...] GLOSSECTOMY Marvin Santana MD [address] [place] [phone] Phone: tel: fax: [facility]PER[facility] ROOM [address] [place] [phone] Phone: tel: Referral ID Status Reason Start Date Expiration Date Visits Re quested Visits Authorized [id number] 1 1 Encounter Details Date Type Department Care Team (Late st Contact Info) Description 08/19/2025 5:29 AM EDT - 08/30/2025 3:53 PM EDT Hospital Encounter [facility] Inpatient [address] [place] [id number] Marvin Santana MD [address] [place] [phone] Alvaro Adrian DMD, MD [address] [facility] [address] [place] [address] Squamous cell carcinoma of mandible [...] any time in the past 12 m [facility], were you homeless or living in a usp (including now)? No 08/21/2025 [facility] Utilities Answer Date Recorded In the [...] documented in this encounter Functional Status * Calculated C-SSRS Risk Score (Lifetime/Recent) Answer Date of Assessment Author No Risk Indicated 08/29/2025 8:00 PM EDT Carly Perez, RENATO * Question Answer Date of Assessment Author 1. Wish to be (Past 1 Month) No 025 8:00 PM EDT Carly Perez, RENATO 2. Non-Specific Active Suici violet Thoughts (Past 1 Month) No 08/29/2025 8:00 PM EDT Carly Perez RN 6. Suicidal Behavior (Lifetime) No 8:00 PM EDT Carly Perez RN documented as of this encounter Discharge Instructions * Discharge Instructions* Rusty Melendrez DDS - 08/29/2025 6:50 AM EDT [facility] Oral & Maxillofacial Surgery Cancer Surgery [...] on 09/06/[address] Adrian. Address/Phone Number: [facility] [address] [facility] [place] [address] Thank you for the opportunity [...] mouth 2 times a day. 60 tablet 5 09/02/20 25 documented as of this encounter Miscellaneous Notes * Progress Notes - Cynthia Sands RN - 08/30/2025 2:59 PM EDT Case Management Discharge Note Carlito Perez 54 y.o. male CSN: [id number] Admission: 08/19/2025 5:29 AM Primary Problem: Floor of mouth squamous cell carcinoma Primary Galvanometer Assembler: Primary Caregiver: Self Assistance Available at Discharge: Availability of Care Givers (#Hours): 24 hours Family/Galvanometer Assembler(s) Willingness Assessed to care for patient at home: Yes Family/Galvanometer Assembler(s) Readiness Assessed to care for patient at home: Yes Housing Circumstances-Z Codes: Housing Circumstances (select all that apply): None Applicable Patient Referred to Financial or Community Resources: Discharge Facility/Level of Care Needs: Discharge Facility/Level of Care Needs: 7-[facility]ps[facility] Patient's Choice of Community Agency(s): Patient/Family Anticipated Services at Transition: Patient/Family Anticipated Services at Transition: case picker DME/Equipment Needed after Discharge: Equipment Currently Used at Home: none Equipment Needed After Discharge: colostomy/ostomy supplies, walker, rolling, other (see comments) (wound vac) Readmission Within the Last 30 Days: Readmission Within the Last 30 Days: no previous admission in last 30 days Medicare Documentation: Follow-up: Alvaro Adrian DMD, MD [address] [facility] [phone] Wound gfy-Fuqbethji-Sgoh Follow up [facility] Address: [facility] [place] [address] Follow up [facility] supplies. [facility] Follow up [facility] Address: [address] [place], [address] Follow up Rolling walker, please keep equipment [...] Medically readyto discharge today. Accepted by above [facility]. They will call patient to arrange a home visit. Acceptedby above infusion pharmacy. They will deliver bedside and bedside nurse will provide a teaching session with patient/family. Patient agrees to dc home today and agrees with above DC plan. In??MARIANELA Bass, artist's manager * Discharge Summary - Rusty Melendrez, DDS - 08/30/2025 12:45 PM EDT Images from the original note were not included. Hospitalization Admit Date/Time: 08/19/2025 5:29 AM Admitting Attending: Marvin Santana Discharge Date: 08/30/25 Discharge Attending Physician: Alvaro Adrian DMD PCP name and Address: ChandlerChristina silva, INTERLACER [address] [facility] [address] Referring provider name and address: Alvaro Adrian DMD, [address] [facility] [address] [place] [address] Chief Concern, Brief History of Present Illness, [...] clinic with Dr. Adrian on 09/06/25 at [facility] for follow-up. Surgeries and Procedures Procedures performed [...] Your Medications These medications were sent to [facility] [place], [place] - [address], [facility] [id number] acetaminophen 500 MG tablet aspirin 325 MG [...] cell carcinoma Squamous cell carcinoma of mandible [facility] Oral & Maxillofacial Surgery Cancer Surgery [...] on 09/06/[address] Adrian. Address/Phone Number: [facility] [address] [facility] [place] [address] Thank you for the opportunity to allow us to participate in your care. Please do not hesitate to contact our office if you have any questions or concerns. Outpatient Follow-Up Future Appointments Date Time Provider Department Center 09/03/2025 8:15 AM [facility] 09/06/2025 1:00 PM Alvaro Adrian DMD, MD [facility] Pertinent Physical Exam At Time of [...] preparation for this discharge. Rusty Melendrez DDS [facility], PGY-1 Cosigned by Alvaro Adrian DMD, MD [...] Review Outcome: Ongoing, Progressing Flowsheets Taken 08/29/2025 0417 by Carly Perez Plan of Care Reviewed [...] consistent Intervention: Prevent Skin Injury Flowsheets Taken 08/29/2025 [...] bedding lightweight clothing Taken 08/27/2025 0401 by Ysesi Campbell RN Infection Management: aseptic technique maintained [...] Note Carlito Perez 54 y.o. male CSN: [id number] Admission: 08/19/2025 5:29 AM Primary Problem: Floor of mouth squamous cell carcinoma Anticipated Discharge Date: 08/29/25 Has Discharge Plans Changed? Medicare Second Notice: Housing Circumstances: Housing Circumstances Action Taken: Medically Ready for Discharge: Additional Comments TF has been approved, [facility] will deliver this afternnon at bedside. Kellie [...] Note Carlito Perez 54 y.o. male CSN: [id number] Room/Bed 128/128A Nutrition evaluation type: follow-up Reason [...] WNL) O2 Delivery Method: Humidified trach collar [place] Coma Scale Score: 15 Dex Scale Score: 19 Virgilio/Cubbin Pressure Risk Score: 41 Most Recent BM Date: 08/29/25 GI Symptoms: None Skin: wound vac, right pretibial surgical wound, mid neck surgical wound, mouth surgical wound, right upper leg surgical graft Allergies: Fish, Shellfish Medications: Current Scheduled Medications[4] Current Continuous Medications[5] Current PRN Medications[6] Labs: Results from last 7 days Lab Units 08/29/25 0237 08/28/25 0354 08/27/25 0344 WBC 10*3/uL 11.08* 10.56* 10.56* HEMOGLOBIN g/dL 9.6* 9.5* 9.3* HEMATOCRIT % 29.0* 28.8* 28.1* PLATELETS 10*3/uL 547* 552* 483* Results from last 7 days Lab Units 08/29/25 0237 08/28/25 0354 08/27/25 0344 SODIUM mmol/L 138 136 135* POTASSIUM mmol/L 3.8 4.2 4.2 CHLORIDE mmol/L 100 99 99 CO2 mmol/L 25 28 28 BUN mg/dL 19 18 17 CREATININE [...] for accuracy Estimated Needs: Kcal: 30-35 kcal/kg (8599-0898 kcal/d) Protein: 1.5-1.8 g/kg (131-157 g/d) Based [...] shellfish, penicillan CAD (coronary artery disease) Cancer ([facility]) [id number] Coronary artery calcification Dental disease chipped teeth, jony block for vocal chord damage Fractures clavical surgery GERD (gastroesophageal reflux disease) 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 HLD (hyperlipidemia) HTN (hypertension) Hypothyroidism Reflux gastritis Substance abuse 1988 [2] Past Surgical History: Procedure Laterality Date APPENDECTOMY 1979 CARDIOTHORACIC PROCEDURE stents CAROTID STENT 04/26/2023 COLONOSCOPY 2023 CORONARY STENT PLACEMENT [id number] ORTHOPEDIC SURGERY repair to clavical OTHER SURGICAL [...] oxyCODONE * Progress Notes - Nicole Rodriguez W - 08/29/2025 8:43 AM EDT Occupational Therapy Treatment Patient Name: Saravanan Perez Today's Date: 08/29/2025 Total Treatment Time: 26 minutes OT Discharge Recommendations: Home with assistance, Home health OT, Home health PT Equipment Recommended: Rolling walker Subjective Patient agreeable to OT session. Participants in Care Family/Caregiver Present: Yes Family/Caregiver: (Adult Sister) Poultry Veterinarian: Not Applicable Presentation Oxygen Therapy: Supplemental oxygen [...] Mobility Bed Mobility Exam: Scooting/Bridging Level of [place]: Stand-by assist (anteriorly to EOB) Physical/Nonphysical Assist: Set-up required, Supervision, Verbal Cues Bed Mobility Exam: Supine to Sit Level of [place]: Stand-by assist (to the left) Physical/Nonphysical Assist: Set-up required, Supervision, Verbal Cues, Minimal cues, HOB elevated Transfers Transfer Exam: Sit to stand Level of [place]: Stand-by assist Physical/Nonphysical Assist: Set-up required, Supervision, Verbal Cues, Minimal cues Assistive Device: Walker, rolling Transfer Exam: Stand to Sit Level of [place]: Stand-by assist Physical/Nonphysical Assist: Supervision, Verbal Cues, [...] performance within engaging in higher level BADLs. Kip engaged patient in bilateral UE AROM exercises [...] handout/printout provided for visual reference. Access Code: [email or web address] URL: [email or web address] Date: 08/29/2025 Exercises - Seated Elbow Flexion [...] Equipment for Bathing & Showering Standardized Assessments [facility] 6-Click Daily Activities Help from Other: Don/Doff Regular Lower Body Clothings: A lot Help From Other: Bathing: Little Help From Other: Toileting: None Help From Other: Don/Doff Upper Body Clothings: None Help From Other: Grooming: None Help From Other: Eating Meals: Little (DHT) [facility] 6 Click - Daily Activities Score: 20/24 [facility] Scoring Interpretation: Scores greater than 20.5 suggest [...] admission Level of Mobility Ambulatory- community Mobility [place] Independent gait without device History of Falls [...] unaware when pt may be discharged from [facility]. Poultry Veterinarian (if applicable) Not Applicable OBJECTIVE & INTERVENTIONS [...] Treatment Minutes 20 BED MOBILITY Level of [place] Physical/Non- physical Assist Adaptive Equipment Utilized Rolling/ Turning Scooting/ Bridging Stand-by assist Set-up required, Supervision, Verbal Cues Supine to Sit Stand-by assist Set-up required, Supervision, Verbal Cues, Minimal cues, HOB elevated Sit to Supine Interventions TRANSFERS Level of [place] Physical/Non- physical Assist Adaptive Equipment Utilized Sit to Stand Stand-by assist Set-up required, Supervision, Verbal Cues, Minimal cues Walker, rolling Stand to sit Stand-by assist Supervision, Verbal Cues, Minimal cues Walker, rolling Bed to Chair Toilet Transfer Shower Transfer Interventions AMBULATION Level of [place] Distance Adaptive Equipment Utilized Ambulation Standby assist, Minimal verbal cues 130' x 2 with seated rest break between each distance Rolling walker Comments Cues for safety awareness. HYDRAULIC MECHANIC presence was necessary for: * managing lines [...] clinic with Dr. Adrian on 09/06/25 at [facility] for follow-up. * Progress Notes - Rusty Melendrez DDS - 08/29/2025 5:37 AM EDT Images from the original note were not included. Oral & Maxillofacial Surgery Progress Note 08/29/25 Carlito Perez [facility] Day: 11 Subjective HISTORY OF PRESENT [...] Units Date/Time Cecelia auris Surveillance by PCR [[id number]] (Normal) Collected: 08/19/252018 Order Status: Completed Specimen: Swab from Axilla and Groin Updated: 08/21/25 1033 Cecelia auris PCR Result Not Detected Narrative: This PCR assay was developed and its performance characteristics determined by [facility] as appropriate for clinical purposes. This assay has not been cleared or approved bythe FDA, but is performed in a CLIA regulated laboratory that is qualified to perform high-complexity testing. Multi Drug Resistance Test [[id number]] Collected: 08/19/252018 Order Status: Completed Specimen: Swab from Nares and Nini Rectal Updated: 08/21/25 0733 Culture No growth at day 1 Narrative: This test was developed and its performance characteristics determined by the [facility]. Although the media is FDA-approved, it is not FDA-approved for all specimen types submitted. The FDA has determined that such clearance or approval is not necessary. This test is used for surveillance purposes. It should not be regarded as investigational or for research. The [facility] is certified under the [...] with patient at bedside Rusty Melendrez DDS [facility] OMFS, PGY-1 Cosigned by Alvaro Adrian DMD, [...] Care Review Outcome: Ongoing, Progressing Flowsheets Taken 08/29/2025418 by Carly Perez Plan of Care Reviewed [...] adjusted Intervention: Prevent Skin Injury Flowsheets Taken 08/29/2025418 by Carly Perez Body Position: weight shifting Taken 08/27/2025 1016 by Don Dolan, RN Skin Protection: incontinence pads utilized pulse oximeter probe site changed skin sealant/moisture barrier applied Intervention: Prevent and Manage VTE (Venous Thromboembolism) Risk Flowsheets (Taken 08/29/2025 0419) VTE Prevention/Management: left SCDs (sequential compression devices) [...] Ventilation Flowsheets Taken 08/29/2025 0000 by Carly Peerz Activity Management: activity adjusted per tolerance Head of Bed (HOB) Positioning: HOB elevated Cough And Deep Breathing: done independently per patient Taken 08/27/2025 1016 by Don Dolan, RENATO Airway/Ventilation Management: airway patency maintained humidification applied [...] elevated Taken 08/27/2025 1016 by Don Dolan, RENATO Pressure Reduction Techniques: frequent weight shift encouraged [...] reach Intervention: Promote Injury-Free Environment Flowsheets (Taken 08/28/2025 2000) Safety Promotion/Fall Prevention: activity supervised assistive device/personal [...] Renteria MD - 08/28/2025 9:37 PM EDT [facility] Department of Surgery Division of Plastic and Reconstruction Surgery Post Operative Check: Subjective: Procedure: s/p split thickness skin flap and fibula macarena flap Patient currently reports doing well. No pain. Tolerating PO and has no other conerns Objective: Vitals: Visit Vitals BP 126/75 Pulse 90 Temp 36.6 ??C (97.9 ??F) Resp 18 IN/Out: Intake/Output Summary (Last 24 hours) at 08/28/20252136 Last data filed at 08/28/2025 2100 Gross [...] nursing staff. I have notified senior resident/attending promotion producer with any issues or concerns. * Anesthesia [...] PM EDT Operative Note Date: 08/28/25 Location: [place] Name: Saravanan Perez, : 1970, Diagnoses: [...] Attending Surgeon(s): * Marvin Santana - Primary Respiratory Scientist(s): * Roma Rolon MD - Resident - [...] 2:43 PM. * Progress Notes - Marcelino Laurent DMD - 08/28/2025 9:47 AM EDT Images from the original note were not included. Oral & Maxillofacial Surgery Progress Note 08/28/2025 Carlito Perez [facility] Day: 11 Subjective HISTORY OF PRESENT [...] Units Date/Time Cecelia auris Surveillance by PCR [[id number]] (Normal) Collected: 08/19/252018 Order Status: Completed Specimen: Swab from Axilla and Groin Updated: 08/21/25 1033 Cecelia auris PCR Result Not Detected Narrative: This PCR assay was developed and its performance characteristics determined by [facility] as appropriate for clinical purposes. This assay has not been cleared or approved bythe FDA, but is performed in a CLIA regulated laboratory that is qualified to perform high-complexity testing. Multi Drug Resistance Test [[id number]] Collected: 08/19/252018 Order Status: Completed Specimen: Swab from Nares and Nini Rectal Updated: 08/21/25 0733 Culture No growth at day 1 Narrative: This test was developed and its performance characteristics determined by the [facility]. Although the media is FDA-approved, it is not FDA-approved for all specimen types submitted. The FDA has determined that such clearance or approval is not necessary. This test is used for surveillance purposes. It should not be regarded as investigational or for research. The [facility] is certified under the [...] with patient at bedside Marcelino Laurent DMD [facility] sample tester grinder PGY-1 Pager #: [phone] Cosigned by Alvaro Adrian DMD, MD at [...] Identify and Manage Fall Risk Flowsheets (Taken 08/28/2025 0400) Safety Promotion/Fall Prevention: activity supervised assistive device/personal [...] Activity Management: activity adjusted per tolerance Taken 08/27/2025 2000 by James Juan RN Head of Bed (HOB) Positioning: HOB elevated Taken 08/27/2025 1016 by Don Dolan RN Pressure Reduction Techniques: frequent weight shift encouraged weight shift assistance provided heels elevated off bed Pressure Reduction Devices: foam padding utilized positioning supports utilized Intervention: Promote and Optimize Oral Intake Flowsheets (Taken 08/27/2025 1016 by Don Dolan RN) Oral Nutrition Promotion: physical activity promoted Problem: Fall Injury Risk Goal: Absence of Fall and Fall-Related Injury Outcome: Ongoing, Progressing Problem: Artificial Airway Goal: Effective Communication Outcome: Ongoing, Progressing * Progress Notes - Cynthia Sands RN - 08/27/2025 10:45 AM EDT Signed wound vac forms and supporting documentation sent to [employer] [facility] via email: [email or web address] * Care Plan - Don Dolan RN [...] Intervention: Prevent or Manage Pain Flowsheets (Taken 08/27/2025400) Sensory Stimulation Regulation: television on Bowel Elimination Promotion: ambulation promoted privacy promoted Sleep/Rest Enhancement: awakenings minimized consistent schedule promoted regular sleep/rest pattern promoted relaxation techniques promoted Medication Review/Management: medications reviewed Problem: Surgery Nonspecified Goal: Absence of Bleeding Intervention: Monitor and Manage Bleeding Flowsheets (Taken 08/27/2025400) Bleeding Management: dressing monitored Goal: Effective Bowel Elimination Intervention: Enhance Bowel Motility and Elimination Flowsheets (Taken 08/27/2025400) Bowel Elimination Management: hygiene measures promoted Goal: Fluid and Electrolyte Balance Intervention: Monitor and Manage Fluid and Electrolyte Balance Flowsheets (Taken 08/27/2025400) Fluid/Electrolyte Management: fluids adjusted Goal: Absence of Infection Signs and Symptoms Intervention: Prevent or Manage Infection Flowsheets (Taken 08/27/2025400) Infection Management: aseptic technique maintained Fever Reduction/Comfort Measures: lightweight bedding lightweight clothing Isolation Precautions: precautions maintained protective Goal: Optimal Pain Control and Function Intervention: Prevent or Manage Pain Flowsheets (Taken 08/27/2025400) Pain Management Interventions: medication [...] Intervention: Prevent or Manage Infection Flowsheets (Taken 08/27/2025400) Infection Management: aseptic technique maintained Fever Reduction/Comfort [...] Intervention: Identify and Manage Contributors Flowsheets (Taken 08/27/2025400) Medication Review/Management: medications reviewed Self-Care Promotion: BADL [...] Communication Intervention: Ensure Effective Communication Flowsheets (Taken 08/27/2025400) Trust Relationship/Rapport: care explained choices provided emotional [...] Note Carlito Perez 54 y.o. male CSN: [id number] Admission: 08/19/2025 5:29 AM Primary Problem: Floor of mouth squamous cell carcinoma Anticipated Discharge Date: 08/30/25 Has Discharge Plans Changed? Medicare Second Notice: Housing Circumstances: Housing Circumstances Action Taken: Medically Ready for Discharge: Additional Comments [facility] has been informed via secure chat. sent the wound vac forms to be fill out and signed by MD Adrian in order to request wound vac. CM messaged [facility] to hold delivery for trach supplies + RW As pt will discharge 08/30/25. POC reviewed with primary team. Refer to primary team's note for details. Pt is not medically readyfor discharge. MD anticipates readiness for discharge on 08/30/25 In??MARIANELA Bass, artist's manager * Procedures - Senia Cross PA [...] Post-procedure details: Procedure completion: Tolerated * Bob Miradna RN - 08/26/2025 10:29 AM EDT Images from the original note were not included. [address] Suctioning Your Tracheostomy Important Call 911 right [...] tube. Move the catheter tip in a chefornak as you pull the catheter out. ? [...] thoroughly. Last Reviewed Date: 2025 00:00:00 ?? [id number] [employer]. All rights reserved. This information is not intended as a substitute for professional medical care. Always follow your healthcare professional's instructions. * Lynetteed KhannaRUPALI - Bob Masterson RN - 08/26/2025 10:29 AM EDT Images from the original note were not included. 44914 Preventing a Surgical Site Infection A risk [...] of infection. ? Controlled body temperature. A [id number] temperature during or after surgery prevents oxygen [...] and water or with an alcohol-based hand newspaper photographer before and after caring for you. Don?t [...] away. Last Reviewed Date: 2024 00:00:00 ?? [id number] [employer]. All rights reserved. This information is not intended as a substitute for professional medical care. Always follow your healthcare professional's instructions. * [facility] RN - 08/26/2025 10:29 AM EDT Images from the original note were not included. 09349 Tracheostomy Care You need to take care [...] breathing Last Reviewed Date: 2025 00:00:00 ?? [id number] [employer]. All rights reserved. This information is not [...] a high-fiber diet or laxatives. * [facility] Bob Masterson RN - 08/26/2025 10:29 AM EDT Images from the original note were not included. 86247 Negative Pressure Wound Therapy Negative pressure wound [...] device. Last Reviewed Date: 2024 00:00:00 ?? 4548-1678 [employer]. All rights reserved. This information is not intended as a substitute for professional medical care. Always follow your healthcare professional's instructions. * [facility] Bob Masterson RN - 08/26/2025 10:29 [...] Neck and shoulder stiffness or pain ? long-term swelling (lymphedema) which can be reduced through [...] call the doctor? Call the clinic at [phone] if you have any of these: ? [...] lips Call 911 or go to the [facility] emergency department if you have any of [...] Amount 06/22/09 7 a.m. 20ml * Rachell KhannaRUPALI - Bob Masterson RN [...] does not seem to beworking properly. 1. Service Observer Chief the tube near the skin and hold [...] from the original note were not included. 02724 Surgery for a Mouth or Throat Tumor [...] look Last Reviewed Date: 2024 00:00:00 ?? [id number] [employer]. All rights reserved. This information is not intended as a substitute for professional medical care. Always follow your healthcare professional's instructions. * Rachell [facility] - Bob Masterson RN - 08/26/2025 10:29 [...] with a towel and dry with a unhairing inspector on low setting to avoid burning. At [...] taking nutrition by feeding tube, the case resource manager in the hospital will give you information [...] call the doctor? Call the clinic at [phone] if you have any of these: ? [...] will change at bedside on 08/26 - [id number] mg for 1 month - Recommend 5 [...] Review Outcome: Ongoing, Progressing Flowsheets (Taken 08/26/2025 0625) Progress: improving Plan of Care Reviewed With: [...] completed Intervention: Prevent Skin Injury Flowsheets Taken 08/26/2025341 by Hailey Lund CNA Body Position: weight shifting Taken 08/25/2025 1235 by Melina Currie, RN Skin Protection: protective footwear used Intervention: Prevent and Manage VTE (Venous Thromboembolism) Risk Flowsheets (Taken 08/26/2025 06) VTE Prevention/Management: left SCDs (sequential compression devices) on medication Intervention: Prevent Infection Flowsheets (Taken 08/26/2025 06) Infection Prevention: equipment surfaces disinfected hand hygiene promoted single patient room provided rest/sleep promoted Goal: Optimal Comfort and Wellbeing Outcome: Ongoing, Progressing Problem: Pain Acute Goal: Optimal Pain Control and Function Outcome: Ongoing, Progressing Intervention: Develop Pain Management Plan Flowsheets (Taken 08/26/2025 06) Pain Management Interventions: pillow support provided position adjusted quiet environment facilitated rest Intervention: Prevent or Manage Pain Flowsheets Taken 08/26/2025624 by James Juan, RENATO Sleep/Rest Enhancement: awakenings minimized Taken 08/25/2025 1235 by Melina Currie, RN Bowel Elimination Promotion: [...] Intervention: Optimize Glycemic Control Flowsheets (Taken 08/25/2025 1235 by Melina Currie, RN) Hyperglycemia Management: blood [...] Oral & Maxillofacial Surgery Progress Note 08/25/25 [facility] Day: 7 Subjective HISTORY OF PRESENT [...] to DC with weekend CM Edited by: Marcelino Laurent DMD at 08/25/2025 0959 Objective Last [...] Units Date/Time Cecelia auris Surveillance by PCR [[id number]] (Normal) Collected: 08/19/25 2019 Order Status: Completed Specimen: Swab from Axilla and Groin Updated: 08/21/25 1033 Cecelia auris PCR Result Not Detected Narrative: This PCR assay was developed and its performance characteristics determined by [facility] as appropriate for clinical purposes. This assay has not been cleared or approved bythe FDA, but is performed in a CLIA regulated laboratory that is qualified to perform high-complexity testing. Multi Drug Resistance Test [[id number]] Collected: 08/19/252018 Order Status: Completed Specimen: Swab from Nares and Nini Rectal Updated: 08/21/25 0733 Culture No growth at day 1 Narrative: This test was developed and its performance characteristics determined by the [facility]. Although the media is FDA-approved, it is not FDA-approved for all specimen types submitted. The FDA has determined that such clearance or approval is not necessary. This test is used for surveillance purposes. It should not be regarded as investigational or for research. The [facility] is certified under the [...] with patient at bedside Marcelino Laurent DMD [facility] sample tester grinder PGY-1 Pager #: [phone] Cosigned by Alvaro Adrian DMD, MD at [...] will change at bedside on 08/26 - [id number] mg for 1 month - Recommend 5 [...] MD Plastic & Reconstructive Surgery PGY-4 Pager [phone] Cosigned by Marvin Santana MD at 08/26/2025 8:10 AM EDT Associated attestation - Marvin Santana MD - 08/26/2025 8:10 AM EDT I discussed the case with the resident/fellow and agree with the findings and plan as documented. * Care Plan - Shania Perez - 08/24/2025 8:08 PM EDT Problem: Adult Inpatient Plan of Care Goal: Plan of Care Review Outcome: Ongoing, Progressing Flowsheets Taken 08/24/20252003 by Shania Perez Progress: improving Outcome Evaluation: [...] Manage VTE (Venous Thromboembolism) Risk Flowsheets (Taken 08/24/20251919 by Hailey Lund CNA) VTE Prevention/Management: left [...] Flowsheets (Taken 08/24/2025 1303 by Kathy Lund, RENATO) Pain Management Interventions: medication (see MAR) Intervention: Prevent or Manage Pain Flowsheets Taken 08/24/2025 2004 by Shania Perez Sensory Stimulation Regulation: auditory [...] equipment provided Taken 08/22/2025 0621 by Miya Al, RN Bowel Motility Enhancement: ambulation promoted Goal: [...] provided Taken 08/24/2025 1303 by Kathy Lund RN Pain Management Interventions: medication (see MAR) Taken 08/23/20252134 by Robert Wilson Diversional Activities: [employer] television Goal: Nausea and Vomiting Relief Outcome: [...] Intervention: Optimize Oxygenation and Ventilation Flowsheets Taken 08/24/2025 1920 by Hailey Lund CNA Activity Management: ambulated [...] maintained pulse oximeter probe site changed Taken 08/22/2025 0621 by Miya Al, RN Pressure Reduction Devices: positioning supports utilized Taken 08/21/2025 1734 by Juanita Vergara RN Pressure Reduction Techniques: [...] Environment Flowsheets (Taken 08/24/2025 07 by Kathy Lund, RN) Safety Promotion/Fall Prevention: [...] Note Carlito Perez 54 y.o. male CSN: [id number] Admission: 08/19/2025 5:29 AM Primary Problem: Floor of mouth squamous cell carcinoma Anticipated Discharge Date: 08/26/25 Referral for trach supplies and a RW placed in careport and sent to [facility]. Trach supply order will be reviewed on Tuesday08/26/25. Contact information for primary CM included in referral for [facility] to follow up on 08/26/25. Additional Comments Halie Ledezma RN * Progress Notes - Marcelino Laurent DMD - 08/24/2025 10:27 AM EDT Images from the original note were not included. Oral & Maxillofacial Surgery Progress Note 08/24/25 Carlito Perez [facility] Day: 6 Subjective HISTORY OF PRESENT [...] Units Date/Time Cecelia auris Surveillance by PCR [[id number]] (Normal) Collected: 08/19/252018 Order Status: Completed Specimen: Swab from Axilla and Groin Updated: 08/21/25 1033 Cecelia auris PCR Result Not Detected Narrative: This PCR assay was developed and its performance characteristics determined by [facility] as appropriate for clinical purposes. This assay has not been cleared or approved bythe FDA, but is performed in a CLIA regulated laboratory that is qualified to perform high-complexity testing. Multi Drug Resistance Test [[id number]] Collected: 08/19/252018 Order Status: Completed Specimen: Swab from Nares and Nini Rectal Updated: 08/21/25 0733 Culture No growth at day 1 Narrative: This test was developed and its performance characteristics determined by the [facility]. Although the media is FDA-approved, it is not FDA-approved for all specimen types submitted. The FDA has determined that such clearance or approval is not necessary. This test is used for surveillance purposes. It should not be regarded as investigational or for research. The [facility] is certified under the [...] with patient at bedside Marcelino Laurent DMD [facility] sample tester grinder PGY-1 Pager #: [phone] Cosigned by Alvaro Adrian DMD, MD at [...] will change at bedside on 08/26 - [id number] mg for 1 month - Recommend 5 [...] Reviewed With: patient Taken 08/22/2025620 by Miya Al RN Outcome Evaluation: Pt [...] scheduled Intervention: Prevent Skin Injury Flowsheets Taken 08/24/202500 by Kathy Lund RN Body Position: weight shifting Taken 08/23/20252134 by Robert Wilson Skin Protection: transparent dressing maintained pulse oximeter probe site changed Intervention: Prevent and Manage VTE (Venous Thromboembolism) Risk Flowsheets (Taken 08/24/2025 0700) VTE Prevention/Management: bilateral SCDs (sequential compression devices) [...] Note Carlito Perez 54 y.o. 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) Skin: wound vac, right pretibial surgical wound, mid neck surgical wound, mouth surgical wound Allergies: Fish, Shellfish Medications: Current Scheduled Medications[4] Current Continuous Medications[5] Current PRN Medications[6] Labs: Results from last 7 days Lab Units 08/23/25 0326 08/22/25 0502 08/20/25 0556 WBC 10*3/uL 10.09 11.20* 16.03* HEMOGLOBIN g/dL 9.5* 9.8* 10.8* HEMATOCRIT % 29.1* 29.6* 31.2* PLATELETS 10*3/uL 326 271 290 Results from last 7 days Lab Units 08/23/25 0326 08/22/25 0502 08/20/25 0556 SODIUM mmol/L 137 139 136 POTASSIUM mmol/L 4.0 3.8 5.2* CHLORIDE mmol/L 102 102 101 CO2 mmol/L 25 27 23 BUN mg/dL 15 15 16 CREATININE mg/dL [...] 4 months Estimated Needs: Kcal: 30-35 kcal/kg (3738-5966 kcal/d) Protein: 1.5-1.8 g/kg (131-157 g/d) Based [...] daily (ongoing) Acuity Level: 4 Brenda Daniels, RD, LD [1] Past Medical History: Diagnosis Date Adverse effect of anesthesia allergy to shellfish, penicillan CAD (coronary artery disease) Cancer ([facility]) [id number] Coronary artery calcification Dental disease chipped teeth, jony block for vocal chord damage Fractures clavical surgery GERD (gastroesophageal reflux disease) 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 * Care Plan - Luna White RN - 08/23/2025 7:27 AM EDT Problem: Adult Inpatient Plan of Care Goal: Plan of Care Review Outcome: Ongoing, Progressing Flowsheets Taken 08/21/2025 173 by Juanita Vergara RN Progress: improving Taken [...] Intervention: Prevent Skin Injury Flowsheets Taken 08/23/2025 06 by Ron Hines RN Body Position: weight [...] Prevent or Manage Infection Flowsheets Taken 08/23/2025 07 by Luna White RN Isolation Precautions: precautions [...] Monitor and Manage Urinary Retention Flowsheets (Taken 08/22/2025 06 by Miya Al RN) Urinary Elimination Promotion: catheter patency maintained Goal: Effective Oxygenation and Ventilation Outcome: Ongoing, Progressing Intervention: Optimize Oxygenation and Ventilation Flowsheets Taken 08/23/2025 06 by Ron Hines RN Head of Bed [...] Intervention: Prevent or Manage Infection Flowsheets Taken 08/23/2025714 by Luna White RN Isolation Precautions: precautions [...] White RN Self-Care Promotion: independence encouraged Taken 08/20/2025 181 by Lizy Amador Medication Review/Management: medications reviewed [...] will change at bedside on 08/26 - [id number] mg for 1 month - Recommend 5 [...] MD Plastic & Reconstructive Surgery PGY-4 Pager [phone] Cosigned by Marvin Santana MD at 08/24/2025 5:52 PM EDT Associated attestation - Marvin Santana MD - 08/24/2025 5:52 PM EDT I saw and evaluated the patient. I discussed the case with the resident/fellow and agree with the findings and plan as documented. * Progress Notes - Rusty Melendrez, DDS - 08/23/2025 5:24 AM EDT Images from the original note were not included. Oral & Maxillofacial Surgery Progress Note 08/23/25 Carlito Perez [facility] Day: 5 Subjective HISTORY OF PRESENT [...] I/O: Intake/Output Summary (Last 24 hours) at 08/23/2025 0527 Last data filed at 08/23/2025 0500 Gross [...] Units Date/Time Cecelia auris Surveillance by PCR [[id number]] (Normal) Collected: 08/19/252018 Order Status: Completed Specimen: Swab from Axilla and Groin Updated: 08/21/25 1033 Cecelia auris PCR Result Not Detected Narrative: This PCR assay was developed and its performance characteristics determined by [facility] as appropriate for clinical purposes. This assay has not been cleared or approved bythe FDA, but is performed in a CLIA regulated laboratory that is qualified to perform high-complexity testing. Multi Drug Resistance Test [[id number]] Collected: 08/19/252018 Order Status: Completed Specimen: Swab from Nares and Nini Rectal Updated: 08/21/25 0733 Culture No growth at day 1 Narrative: This test was developed and its performance characteristics determined by the [facility]. Although the media is FDA-approved, it is not FDA-approved for all specimen types submitted. The FDA has determined that such clearance or approval is not necessary. This test is used for surveillance purposes. It should not be regarded as investigational or for research. The [facility] is certified under the [...] with patient at bedside Rusty Melendrez DDS [facility] OMFS, PGY-1 Cosigned by Alvaro Adrian DMD, [...] Pressure Reduction Devices: positioning supports utilized Taken 08/21/2025 173 by Juanita Vergara RN Pressure Reduction Techniques: [...] Note Carlito Perez 54 y.o. male CSN: [id number] Admission: 08/19/2025 5:29 AM Primary Problem: Floor of mouth squamous cell carcinoma Anticipated Discharge Date: 08/27/25 Has Discharge Plans Changed? Medicare Second Notice: Housing Circumstances: Housing Circumstances Action Taken: Medically Ready for Discharge: Additional Comments Referral for PT/OT+SN sent to agencies via [email or web address]. UPDATE: [facility] [phone] has accepted pt. POC reviewed with primary team. Refer to primary team's note for details. Pt is not medically readyfor discharge. MD anticipates readiness for discharge more than 72 hrs. In??s MARIANELA Kelly, artist's manager * Progress Notes - Nicole Rodriguez W - 08/22/2025 9:41 AM EDT Occupational Therapy [...] of anesthesia, CAD (coronary artery disease), Cancer (CMS/[facility]) ([id number]), Coronary artery calcification, Dental disease, Fractures (clavical surgery), GERD (gastroesophageal reflux disease), Hard to intubate, HLD (hyperlipidemia), HTN (hypertension), Hypothyroidism, Reflux gastritis, and Substance abuse (1988). Past Surgical History Patient has a past surgical history that includes Appendectomy (1979); Colonoscopy (2023); Coronarystent placement ([id number]); Other surgical history; Cardiothoracic procedure; orthopedic surgery; Throat surgery; and Carotid stent (04/26/2023). Precautions Right Lower Extremity Weight Bearing Status: Weight Bearing as Tolerated (with CAM boot for ambulation; on AAT - okay to remove for skin inspection, hygiene, and dressing changes per medical TEAM) Medical Precautions: Fall precautions Mobility Orders (Order ID: [id number]) Priority: Routine Interval: Until discontinued Comments: MUST [...] Care Family/Caregiver Present: Yes Family/Caregiver: (Adult Sister) Poultry Veterinarian: Not Applicable Presentation Oxygen Therapy: Supplemental oxygen [...] admission Level of Mobility: Ambulatory- community Mobility [place]: Independent gait without device History of Falls: [...] Mobility Bed Mobility Exam: Scooting/Bridging Level of [place]: Stand-by assist (anteriorly to EOB) Physical/Nonphysical Assist: Set-up required, Supervision, Verbal Cues, Minimal cues, 1 person + 1 person to manage equipment Bed Mobility Exam: Supine to Sit Level of [place]: Contact guard (to the left) Physical/Nonphysical Assist: Set-up required, Verbal Cues, Nonverbal cues (demo/gestures), Minimal cues, HOB elevated, 1 person + 1 person to manage equipment Assistive Device: Bed rails Transfers Transfer Exam: Sit to stand Level of [place]: Contact guard Physical/Nonphysical Assist: Set-up required, Verbal Cues, Nonverbal cues (demo/gestures), Minimal cues, 1 person + 1 person to manage equipment Assistive Device: Walker, rolling Transfer Exam: Stand to Sit Level of [place]: Contact guard Physical/Nonphysical Assist: Verbal Cues, Nonverbal [...] inpatient within personal toileting routines. Standardized Assessments [facility] 6-Click Daily Activities Help from Other: Don/Doff Regular Lower Body Clothings: A lot Help From Other: Bathing: Little Help From Other: Toileting: Little Help From Other: Don/Doff Upper Body Clothings: Little Help From Other: Grooming: None Help From Other: Eating Meals: Little (DHT) [facility] 6 Click - Daily Activities Score: 18 Assessment Patient tolerated today's initial evaluation/session well [...] EDT Physical Therapy Evaluation Patient Name: Saravanan guidrys Saravanan Today's Date: 08/22/2025 PT Discharge Recommendations: [...] anesthesia, CAD (coronary artery disease), Cancer (CMS/HCC) ([id number]), Coronary artery calcification, Dental disease, Fractures (clavical surgery), GERD (gastroesophageal reflux disease), Hard to intubate, HLD (hyperlipidemia), HTN (hypertension), Hypothyroidism, Reflux gastritis, and Substance abuse (1988). Past Surgical History Patient has a past surgical history that includes Appendectomy (1979); Colonoscopy (2023); Coronarystent placement ([id number]); Other surgical history; Cardiothoracic procedure; orthopedic surgery; [...] Care Family/Caregiver Present: Yes Family/Caregiver: (Adult Sister) Poultry Veterinarian: Not Applicable Presentation Oxygen Therapy: Supplemental oxygen [...] admission Level of Mobility: Ambulatory- community Mobility [place]: Independent gait without device History of Falls: [...] Mobility Bed Mobility Exam: Scooting/Bridging Level of [place]: Stand-by assist (anteriorly to EOB) Physical/Nonphysical Assist: Set-up required, Supervision, Verbal Cues, Minimal cues, 1 person + 1 person to manage equipment Bed Mobility Exam: Supine to Sit Level of [place]: Contact guard (to the left) Physical/Nonphysical Assist: Set-up required, Verbal Cues, Nonverbal cues (demo/gestures), Minimal cues, HOB elevated, 1 person + 1 person to manage equipment Transfers Transfer Exam: Sit to stand Level of [place]: Contact guard Physical/Nonphysical Assist: Set-up required, Verbal Cues, Nonverbal cues (demo/gestures), Minimal cues, 1 person + 1 person to manage equipment Assistive Device: Walker, rolling Transfer Exam: Stand to Sit Level of [place]: Contact guard Physical/Nonphysical Assist: Verbal Cues, Nonverbal [...] Level of Assistance: Contact guard Standardized Assessments [facility] 6-Clicks Mobility Assessment Difficulty patient has turning [...] 3-5 steps with a railing?: A little [facility] 6-Clicks Mobility Assessment Total : 21 No [...] Manage Fall Risk Flowsheets (Taken 08/21/20251999 by Miya Al RN) Safety Promotion/Fall Prevention: assistive device/personal items within reach Intervention: Prevent Skin Injury Flowsheets Taken 08/22/2025 0600 by Miya Al, RN Body Position: turned right Taken 08/21/20251733 by Vergara, Juanita A, RN Skin Protection: transparent dressing maintained pulse [...] Intervention: Prevent or Manage Infection Flowsheets Taken 08/22/2025 0720 by Luna White RN Isolation Precautions: precautions [...] Intervention: Identify and Manage Contributors Flowsheets (Taken 08/20/20251818 by Lizy Amador) Medication Review/Management: medications reviewed [...] in bed with sister at bedside. Taken 08/21/2025 173 by Juanita Vergara RN Progress: improving Taken [...] and Manage Bleeding Flowsheets (Taken 08/21/20251733 by Juaniat Vergara RN) Bleeding Management: dressing monitored Goal: [...] Prevent or Manage Pain Flowsheets Taken 08/22/2025 0442 by Miya Al RN Pain Management Interventions: medication (see MAR) Taken 08/21/20251733 by Juanita Vergara RN Diversional Activities: television smartphone Goal: Nausea and Vomiting Relief Outcome: Ongoing, Progressing Intervention: Prevent or Manage Nausea and Vomiting Flowsheets (Taken 08/21/20251733 by Juanita Vergara RN) Nausea/Vomiting Interventions: slow deep breathing encouraged Goal: Effective Urinary Elimination Outcome: Ongoing, Progressing Intervention: Monitor and Manage Urinary Retention Flowsheets (Taken 08/22/2025 0621) Urinary Elimination Promotion: catheter patency maintained Goal: Effective Oxygenation and Ventilation Outcome: Ongoing, Progressing Intervention: Optimize Oxygenation and Ventilation Flowsheets Taken 08/22/2025 06 by Miya Al RN Activity Management: activity adjusted per tolerance Head of Bed (HOB) Positioning: HOB elevated Taken 08/21/20251999 by Miya Al RN Cough And Deep Breathing: done [...] Pressure Reduction Devices: positioning supports utilized Taken 08/22/2025 06 by Miya Al RN [...] will change at bedside on 08/26 - [id number] mg for 1 month - Recommend 5 [...] MD Plastic & Reconstructive Surgery PGY-4 Pager [phone] Cosigned by Marvin Santana MD at 08/22/2025 5:47 PM EDT Associated attestation - Marvin Santana MD - 08/22/2025 5:47 PM EDT I saw and evaluated the patient. I discussed the case with the resident/fellow and agree with the findings and plan as documented. * Progress Notes - Marcelino Laurent DMD - 08/22/2025 4:40 AM EDT Images from the original note were not included. Oral & Maxillofacial Surgery Progress Note 08/22/25 Carlito Perez [facility] Day: 4 Subjective HISTORY OF PRESENT [...] Edited by: Marcelino Laurent DMD at 08/22/2025 0791 Objective Last Recorded Vitals Temp: [36.7 ??C [...] Units Date/Time Cecelia auris Surveillance by PCR [[id number]] (Normal) Collected: 08/19/252018 Order Status: Completed Specimen: Swab from Axilla and Groin Updated: 08/21/25 1033 Cecelia auris PCR Result Not Detected Narrative: This PCR assay was developed and its performance characteristics determined by [facility] as appropriate for clinical purposes. This assay has not been cleared or approved bythe FDA, but is performed in a CLIA regulated laboratory that is qualified to perform high-complexity testing. Multi Drug Resistance Test [[id number]] Collected: 08/19/252018 Order Status: Completed Specimen: Swab from Nares and Nini Rectal Updated: 08/21/25 0733 Culture No growth at day 1 Narrative: This test was developed and its performance characteristics determined by the [facility]. Although the media is FDA-approved, it is not FDA-approved for all specimen types submitted. The FDA has determined that such clearance or approval is not necessary. This test is used for surveillance purposes. It should not be regarded as investigational or for research. The [facility] is certified under the [...] completed Intervention: Prevent Skin Injury Flowsheets Taken 08/21/20254 Skin Protection: transparent dressing maintained pulse oximeter probe site changed incontinence pads utilized Taken 08/21/2025 1600 Body Position: weight shifting Intervention: Prevent and Manage VTE (Venous Thromboembolism) Risk Flowsheets (Taken 08/21/20251733) VTE Prevention/Management: SCDs (sequential compression devices) on medication Intervention: Prevent Infection Flowsheets (Taken 08/21/20251733) Infection Prevention: environmental surveillance performed equipment surfaces [...] Enhance Bowel Motility and Elimination Flowsheets (Taken 08/21/20251733) Bowel Elimination Management: relaxation techniques promoted sitting position facilitated Bowel Motility Enhancement: other (see comments) Goal: Fluid and Electrolyte Balance Outcome: Ongoing, Progressing Intervention: Monitor and Manage Fluid and Electrolyte Balance Flowsheets (Taken 08/21/20251733) Fluid/Electrolyte Management: fluids provided fluids adjusted Goal: [...] or Manage Nausea and Vomiting Flowsheets (Taken 08/21/2025 173) Nausea/Vomiting Interventions: slow deep breathing encouraged Goal: Effective Urinary Elimination Outcome: Ongoing, Progressing Goal: Effective Oxygenation and Ventilation Outcome: Ongoing, Progressing Intervention: Optimize Oxygenation and Ventilation Flowsheets (Taken 08/21/2025 1734) Activity Management: activity adjusted per tolerance Airway/Ventilation Management: airway patency maintained oxygen therapy provided Problem: Infection Goal: Absence of Infection Signs and Symptoms Outcome: Ongoing, Progressing Intervention: Prevent or Manage Infection Flowsheets (Taken 08/21/2025 1734) Infection Management: aseptic technique maintained Fever Reduction/Comfort [...] Promote and Optimize Oral Intake Flowsheets (Taken 08/21/2025 173) Oral Nutrition Promotion: rest periods promoted social [...] on file Utilities: Not At Risk (08/21/2025) [facility] Utilities Threatened with loss of utilities: [...] re-started Dispo: Downgrade to Progressive. Transfer to OMFS primary. Cosigned by Marvin Santana MD at [...] progressive today. * Progress Notes - Marcelino Laurent, DMD - 08/21/2025 6:21 AM EDT Images from the original note were not included. Oral & Maxillofacial Surgery ICU Progress Note 08/21/25 Carlito Perez [facility] Day: 3 Subjective HISTORY OF PRESENT [...] (99.7 ??F) Heart Rate: [58-90] 68 Resp: [-25] 22 BP: (93-114)/(55-70) 108/63 Arterial Line BP: [...] Value Units Date/Time Multi Drug Resistance Test [[id number]] Collected: 08/19/252018 Order Status: Sent Specimen: Swab from Nares and Nini Rectal Updated: 08/19/252029 Cecelia auris Surveillance by PCR [[id number]] Collected: 08/19/252018 Order Status: Sent Specimen: Swab [...] Trach care per OMFS #Tracheostomy - Contact promotion producer PGY-1 for acute trach concerns - 6-0 [...] #Hypothyroidism - Restarted Levothyroxine Marcelino Laurent DMD [facility] sample tester grinder PGY-1 Pager #: [phone] [1] acetaminophen, 1,000 mg, Nasogastric, q6h JOVANNI [...] and Manage Urinary Retention Flowsheets (Taken 08/21/2025 034) Urinary Elimination Promotion: bladder volume assessed by ultrasound positioned for ease of voiding voiding relaxation promoted Problem: Surgery Nonspecified Goal: Absence of Bleeding Outcome: Ongoing, Progressing Goal: Blood Glucose Level Within Target Range Outcome: Ongoing, Progressing Intervention: Optimize Glycemic Control Flowsheets (Taken 08/21/2025 034) Hyperglycemia Management: blood glucose monitored Hypoglycemia Management: blood glucose monitored * Significant Event - Galina Renteria MD - 08/21/2025 3:30 AM EDT Images from the original note were not included. [employer] Flap Check 08/21/2025 PROCEDURE: Right osteocutaneous free [...] resident Galina Renteria DMD, MD Vascular Surgery Inspector Finishing Pager ID [phone] * Significant Event - Galina Renteria MD - 08/20/2025 8:01 PM EDT [employer] Flap Check 08/20/2025 PROCEDURE: Right osteocutaneous free [...] resident Galina Renteria DMD, MD Vascular Surgery Inspector Finishing Pager ID [phone] * Care Plan - Lizy Amador - [...] Note Carlito Perez 54 y.o. male CSN: [id number] Admission: 08/19/2025 5:29 AM Primary Problem: Floor of mouth squamous cell carcinoma Internship Coordinator reviewed chart and spoke with patient's spouse to complete this Initial Case Management Assessment. Patient intubated and CM unable to obtain SDOH information. PCP: Christina Arteaga APRN Emergency Contact: Extended Emergency Contact Information Primary Emergency Contact: Elicia Perez Address: [address] [place] [address] [facility] [place] Mobile Relation: Spouse Insurance: Primary Visit Coverage Payer Plan Sponsor Code Group Number Group Name [employer] [place] [employer] Primary Visit Coverage Subscriber Subscriber ID Subscriber Name Subscriber N Subscriber Address [id number] Carlito Perez [id number] [address] [place] [address] Patient information: Primary Caregiver: Self Accompanied by/Relationship: spouse Support System: Immediate family Daily Living Activities: Functional Status: Independent Living Arrangements: Spouse/Significant other Type of Residence: Private residence, Single Level [address] [place] [address] Current DME: Equipment Currently Used at Home: none Current DME Provider: has a cane and crutches at [facility] if needed. Income Information: Income Source: Employed Income/Expense Information: Income meets expenses Current Resources Utilized: None Housing Circumstances-Z Codes: Housing Circumstances (select all that apply): None Applicable Anticipated Discharge Date: 08/26 Patient's Discharge Goal: tbd Assistance Available at Discharge: 06/06 per family. His sister is an RN, son is a vacuum plastic forming machine operator and he has a cousin who is an RN. Per spouse they are all able/willing to assist patient when dc home for hospital. Spouse also able to assist however she works many hours at her job. Discharge Transport: family Follow Up Transport: family Home Health / Home Infusion / Outpatient Dialysis Services: Current DME Provider: has a cane and crutches at [facility] if needed. Living Will/Advance Directive/Power of Distribution System Operator /Guardian: has copies of LW and POA . CM suggested she present these to a floral clerk who may be able to scan into his epic/ chart. Additional Comments: Internship Coordinator provided introduction of CM and information on CM role. Confirmed demographics in EPICare accurate. requested communication go to [email or web address] Jackeline Rodriguez RN * Progress Notes - [...] Height: O2 Delivery Method: Humidified trach collar VT SUP: 10 cm H20 Insp Time (sec): 1.4 sec FiO2 (%): 28 % S RR: 14 VT SUP: 10 cm H20 I O Shift [...] and ASA. * Progress Notes - Rusty Melendrez, DDS - 08/20/2025 6:08 AM EDT Images from the original note were not included. Oral & Maxillofacial Surgery ICU Progress Note 08/20/25 Carlito Perez [facility] Day: 2 Subjective HISTORY OF PRESENT [...] day 1. Trach remains in place with C . NAEO. Pt seen and evaluated at bedside by FS surgery residents. NPO.Tolerating pain on PO meds [...] Value Units Date/Time Multi Drug Resistance Test [[id number]] Collected: 08/19/252018 Order Status: Sent Specimen: Swab from Nares and Nini Rectal Updated: 08/19/252029 Cecelia auris Surveillance by PCR [[id number]] Collected: 08/19/252018 Order Status: Sent Specimen: Swab [...] #CAD #HLD #Hypothyroidism - Restarted Levothyroxine Rusty Melendrez, MARK [facility] OMFS, PGY-1 [1] acetaminophen, 650 mg, Nasogastric, [...] 5:32 AM EDT Free Flap Check Note [@1403] Carlito Perez is a 54 y.o. male [...] Review Outcome: Ongoing, Progressing Flowsheets (Taken 08/19/2025 2243) Progress: no change Plan of Care Reviewed [...] with encouragement * Significant Event - Mike Kraft DO - 08/19/2025 9:33 PM EDT Free Flap [...] from the original note were not included. [facility] Department of Surgery Division of Plastic and Reconstructive Surgery Post-Operative Check Name: Carlito Lepe Chris Attending Provider: Marvin Santana MD Age/Sex: 54 y.o. male Unit: [facility] 5 T2 ICU Date & Time of Admission: 08/19/2025 5:29 AM [facility] Right osteocutaneous free fibula for reconstruction [...] less than 1 Output by Drain (mL) 08/17/25 07 - 08/17/25 1859 08/17/25 1900 - 08/18/25 0659 08/18/25 07 - 08/18/25 1859 08/18/25 1900 - 08/19/25 0659 08/19/25 0700 - 08/19/25 1859 08/19/25 1900 - 08/19/25 2122 Closed/Suction Drain Anterior;Right Neck [...] Note Carlito Perez 54 y.o. 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 HLD (hyperlipidemia) HTN (hypertension) Hypothyroidism Reflux gastritis Substance abuse 1988 [2] Past Surgical History: Procedure Laterality Date APPENDECTOMY 1979 CARDIOTHORACIC PROCEDURE stents CAROTID STENT 04/26/2023 COLONOSCOPY 2023 CORONARY STENT PLACEMENT [id number] ORTHOPEDIC SURGERY repair to clavical OTHER SURGICAL [...] AM EDT Operative Note Date: 08/19/25 Location: [place] Name: Saravanan Perez, : 1970, Diagnoses: Pre-op Diagnosis Floor of mouth squamous cell carcinoma Post-op Diagnosis Floor of mouth squamous cell carcinoma Procedure(s): Tracheotomy, partial glossectomy left anterior tongue, left segmental mandibulectomy, left selective neck dissection, extraction of #2,3,5,6,7,8,9,10,11,12,13,15,28,29,31, Direct Laryngoscopy with Biopsy Attending Surgeon(s): Panel 1: * Marvin Santana - Primary Panel 2: * Alvaro Adrian - Primary Respiratory Scientist(s): Panel 1: * Roma Rolon MD - [...] W/O ANGLE 2MM THCK - SNA - [id number] Used, Not Implanted NA Plate PLATE TI PSPC MATRIXMAND ANG RECON 7X23H/2MM LT - SNA - [id number] Implanted NA Screw SCREW 2.0MM MATRIXMANDIBLE ST 8MM - SNA - [id number] Used, Not Implanted NA Screw SCREW 2.0MM MATRIXMANDIBLE LOCK ST 8MM - SN/A - [id number] Implanted N/A SCREW 2.0MM MATRIXMANDIBLE LOCK ST 10MM - SN/A - [id number] Implanted N/A SCREW 2.0MM MATRI[address]ANDIBLE LOCK ST 10MM - SN/A - [id number] Implanted N/A SCREW 2.0MM [address]RI[address]IBLE LOCK [address] 14MM - SN/A - [id number] Implanted N/A Specimen: Specimens ID Source Frozen? [...] #15 blade was used to incise trachea yeni Rhodes asked our anesthesia colleagues to start slowly [...] Goetz MD - 08/19/2025 Cosigned by Alvaro Adiran DMD, MD at 08/20/2025 9:46 AM EDT Associated attestation - Alvaro Adrian DMD, MD - 08/20/2025 9:46 AM EDT I was present for the entirety of the procedure(s). * Op Note - Marvin Santana MD - 08/19/2025 8:53 AM EDT Operative Note Date: 08/19/25 Location: [place] Name: Saravanan Perez, : 1970, Diagnoses: [...] Panel 1: * Marvin Santana - Primary Respiratory Scientist(s): Panel 1: * Roma Rolon MD - [...] W/O ANGLE 2MM THCK - SNA - [id number] Used, Not Implanted NA Plate PLATE TI PSPC MATRIXMAND ANG RECON 7X23H/2MM LT - SNA - [id number] Implanted NA Screw SCREW 2.0MM MATRIXM[address]IBLE ST 8MM - SNA - [id number] Used, Not Implanted NA Screw SCREW 2.0MM [address]RI[address] LOCK ST 8MM - SN/A - [id number] Implanted N/A SCREW 2.0MM [address]RIXMANDIBLE LOCK ST 10MM - SN/A - [id number] Implanted N/A SCREW 2.0MM [address]RI[address]IBLE LOCK ST 10MM - SN/A - [id number] Implanted N/A SCREW 2.0MM [address]RIXMANDIBLE LOCK ST 14MM - SN/A - [id number] Implanted N/A Specimen: Specimens ID Source Frozen? [...] for reconstruction Free fibula flap secured to ione mandible with a reconstruction plate Complex intraoral [...] sure that we had good bony approximation to the ione mandible. Under direct visualization we are able to secure 4 holes across the osteotomy sites to the ione mandible with bicortical screws. In this fashion were able to reconstruct the right brandyn mandible with a reconstruction plate/implant. We also then were able to drape the pedicle appropriately down into the anastomosis site. Under loupe magnification, we then proceeded to reapproximate the artery end-to-end using 8-0 nylonwithout any issues. The veins were then coupled using a 3.5 mm line construction superintendent x2. The clamps were carefully removed demonstrating [...] 08/19/2025 8:53 AM EDT Date: 08/19/25 Location: [place] Name: Saravanan Perez, : 1970, Diagnoses: Pre-op Diagnosis Floor of mouth squamous cell carcinoma Post-op Diagnosis Floor of mouth squamous cell carcinoma Procedure(s): Segmental mandibulectomy, left selective neck dissection, extraction of all remaining teeth, partial left glossectomy, tracheostomy, Direct Laryngoscopy with biopsy Attending Surgeon(s): Panel 1: * Marvin Santana - Primary Panel 2: * Alvaro Adrian - Primary Respiratory Scientist(s): Panel 1: * Roma Rolon MD - [...] W/O ANGLE 2MM THCK - SNA - [id number] Used, Not Implanted NA Plate PLATE TI PSPC MATRIXMAND ANG RECON 7X23H/2MM LT - SNA - [id number] Implanted NA Specimen: Specimens ID Source Frozen? [...] from the original note were not included. [facility] Department of Surgery Division of Plastic and Reconstructive Surgery Plastic Surgery Clinic Note Chief Complaint: Mandibular reconstruction HISTORY OF PRESENT ILLNESS Carlito Perez is a 54 y.o. 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 Santana after Dr. Nguyễn PACE lesion excision. He was seen in consultation [...] shellfish, penicillan CAD (coronary artery disease) Cancer ([facility]) [id number] Coronary artery calcification Dental disease chipped teeth, [...] STENT 04/26/2023 COLONOSCOPY 2023 CORONARY STENT PLACEMENT [id number] ORTHOPEDIC SURGERY repair to clavical OTHER SURGICAL [...] with an associated skin paddle in his ione blood supply. This will then be harvested [...] - Encouraged nicotine minimization - To see giver today. - All questions regarding pre-op, intra-op, [...] shellfish, penicillan CAD (coronary artery disease) Cancer ([facility]) [id number] Coronary artery calcification Dental disease chipped teeth, [...] STENT 04/26/2023 COLONOSCOPY 2023 CORONARY STENT PLACEMENT [id number] ORTHOPEDIC SURGERY repair to clavical OTHER SURGICAL [...] Description 11/26/2025 10:45 AM EST Office Visit [facility] Plastic & Reconstructive Surgery [address] [place] [id number] Marvin Santana MD [address] [place] [phone] Scheduled Referrals Name Type Priority Associated Diagnoses Order Schedule Discharge Ambulatory referral to NON [facility] Outpatient Referral Routine Floor of mouth squamous cell carcinoma 1 Occurrences starting 08/22/2025 until 02/23/2027 Discharge Ambulatory referral to NON [facility] Outpatient Referral Routine Floor of mouth squamous [...] OXYGEN THERAPY Routine 08/28/2025 8:00 PM EDT VT SPLIT GRFT TRUNK,ARM,LEG <100 SQCM 08/28/2025 4:20 PM EDT 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 Needs Dermatome, skin graft mesher, Artiss 4 cc and sprayer, xeroform, telfa, epinephrine/saline, tegaderm, 4-0 vicryl rapide, adaptic, silver dermanet VT SPLIT GRFT,TRUNK,ARM,LEG EA 100 SQCM 08/28/2025 4:20 [...] bovie, bipolar, tournique, tps drill and sawt VT PART REMOVAL TONGUE,<1/2 08/19/2025 8:05 AM EDT 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 Needs Microinstruments, micrscope available, doppler, handheld ligasure, bovie, bipolar, tournique, tps drill and sawt VT REMOVAL NODES, NECK,CERV CMPLT 08/19/2025 8:05 AM EDT 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 Needs Microinstruments, micrscope available, doppler, handheld ligasure, bovie, bipolar, tournique, tps drill and sawt VT REMV MALIG JAW BONE RADICAL 08/19/2025 8:05 AM EDT 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 Needs Microinstruments, micrscope available, doppler, handheld ligasure, bovie, bipolar, tournique, tps drill and sawt VT RECONSTR MANDIBLE,BONE PLATE 08/19/2025 8:05 AM EDT 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 Needs Microinstruments, micrscope available, doppler, handheld ligasure, bovie, bipolar, tournique, tps drill and sawt VT LAYR CLOS WND REST BODY 12.6-20 CM 08/19/2025 8:05 AM EDT 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 Needs Microinstruments, micrscope available, doppler, handheld ligasure, bovie, bipolar, tournique, tps drill and sawt VT REPR,FACE,GENITAL,ARGUETA ND,FT+5 CMCM/< 08/19/2025 8:05 AM EDT 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 Needs Microinstruments, micrscope available, doppler, handheld ligasure, bovie, bipolar, tournique, tps drill and sawt VT RECMPL WND HEAD,FAC,HAND 2.6-7.5 CM 08/19/2025 8:05 AM EDT 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 Needs Microinstruments, micrscope available, doppler, handheld ligasure, bovie, bipolar, tournique, tps drill and sawt VT BONE-SKIN GRAFT, MICROVASCULAR 08/19/2025 8:05 AM EDT 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 Needs Microinstruments, micrscope available, doppler, handheld ligasure, bovie, bipolar, tournique, tps drill and sawt TYPE AND SCREEN Routine 08/19/2025 7:05 AM EDT documented in this encounter Results * Phosphorus, Plasma (08/30/2025 3:00 AM EDT) Phosphorus, Plasma 4.2 2.5 - 4.5 mg/dL 08/30/2025 3:39 AM EDT [facility] Blood Venous blood specimen / Unknown Venipuncture / Unknown 08/30/2025 3:00 AM EDT 08/30/2025 3:11 AM EDT us Sin Min M Hayder [place] MD LAB BLOOD ORDERABLES Melida l Result [facility] [address] [place] [address] * Magnesium, Plasma (08/30/2025 3:00 AM EDT) Pathologist [facility] Magnesium, Plasma 2.4 1.9 - 2.4 mg/dL 08/30/2025 3:39 AM EDT [facility] Blood Venous blood specimen / Unknown Venipuncture / Unknown 08/30/2025 3:00 AM EDT 08/30/2025 3:11 AM EDT us Sin Min M Hayder [place] MD LAB BLOOD ORDERABLES Melida l Result [facility] [address] [place] [address] * (ABNORMAL) CBC W/O Differential (08/30/2025 3:00 AM EDT) [facility] WBC Count 10.23 3.70 - 10.30 10*3/uL LAB HEMATOLOGY METHOD 08/30/2025 3:18 AM EDT [facility] RBC Count 3.18(L) 4.60 - 6.10 10*6/uL LAB HEMATOLOGY METHOD 08/30/2025 3:18 AM EDT [facility] HGB 9.9(L) 13.7 - 17.5 g/dL LAB HEMATOLOGY METHOD 08/30/2025 3:18 AM EDT [facility] HCT 30.3(L) 40.0 - 51.0 % LAB HEMATOLOGY METHOD 08/30/2025 3:18 AM EDT [facility] Platelet Count 550(H) 155 - 369 10*3/uL LAB HEMATOLOGY METHOD 08/30/2025 3:18 AM EDT [facility] MCV 95 79 - 98 fL LAB HEMATOLOGY METHOD 08/30/2025 3:18 AM EDT [facility] MCH 31.1 26.0 - 32.0 pg LAB HEMATOLOGY METHOD 08/30/2025 3:18 AM EDT [facility] MCHC 32.7 30.7 - 35.5 g/dL LAB HEMATOLOGY METHOD 08/30/2025 3:18 AM EDT [facility] RDW 13.2 11.5 - 14.5 % LAB HEMATOLOGY METHOD 08/30/2025 3:18 AM EDT [facility] MPV 8.7(L) 8.8 - 12.5 fL LAB HEMATOLOGY METHOD 08/30/2025 3:18 AM EDT [facility] nRBC 0.0 <=0.0 per 100 WBCs LAB HEMATOLOGY METHOD 08/30/2025 3:18 AM EDT [facility] Blood Venous blood specimen / Unknown Venipuncture / Unknown 08/30/2025 3:00 AM EDT 08/30/2025 3:11 AM EDT us Sin Min M Hayder [place] MD LAB BLOOD ORDERABLES Melida l Result [facility] [address] [place] [address] * (ABNORMAL) Basic Metabolic Panel, Plasma (08/30/2025 3:00 AM EDT) Glucose, Plasma 113(H) 74 - 99 mg/dL 08/30/2025 3:39 AM EDT [facility] BUN, Plasma 20 7 - 21 mg/dL 08/30/2025 3:39 AM EDT [facility] Creatinine, Plasma 0.68(L) 0.70 - 1.20 mg/dL 08/30/2025 3:39 AM EDT [facility] BUN/Creatinine Ratio 29 08/30/2025 3:39 AM EDT [facility] Sodium, Plasma 137 136 - 145 mmol/L 08/30/2025 3:39 AM EDT [facility] Potassium, Plasma 4.4 3.6 - 4.9 mmol/L 08/30/2025 3:39 AM EDT [facility] Chloride, Plasma 100 97 - 107 mmol/L 08/30/2025 3:39 AM EDT [facility] CO2, Plasma 28 22 - 29 mmol/L 08/30/2025 3:39 AM EDT [facility] Anion Gap 9 6 - 16 mmol/L 08/30/2025 3:39 AM EDT [facility] Total Calcium, Plasma 9.2 8.9 - 10.2 mg/dL 08/30/2025 3:39 AM EDT [facility] eGFRcr 111.8 mL/min/1.7 3m*2 08/30/2025 3:39 AM EDT [facility] Comment:Reported eGFRcr in m L/min/1.73m2 is based the CKD-EPI 2020 equation that does not use a race coefficient. Blood Venous blood specimen / Unknown Venipuncture / Unknown 08/30/2025 3:00 AM EDT 08/30/2025 3:11 AM EDT us Sin Min Nancy Singletary DMD, MD LAB BLOOD ORDERABLES Melida l Result Performing Organization Address City/[facility] Co de Phone Number [facility] [address] [place] [address] * Phosphorus, Plasma (08/29/2025 2:37 AM EDT) Pathologist [facility] Phosphorus, Plasma 4.1 2.5 - 4.5 mg/dL 08/29/2025 3:13 AM EDT [facility] Blood Venous blood specimen / Unknown Venipuncture / Unknown 08/29/2025 2:37 AM EDT 08/29/2025 2:44 AM EDT us Sin Min Nancy Singletary DMD, MD LAB BLOOD ORDERABLES Melida l Result Performing Organization Address [facility] [place] [address] * Magnesium, Plasma (08/29/2025 2:37 AM EDT) Pathologist [facility] Magnesium, Plasma 2.2 1.9 - 2.4 mg/dL 08/29/2025 3:13 AM EDT [facility] Blood Venous blood specimen / Unknown Venipuncture / Unknown 08/29/2025 2:37 AM EDT 08/29/2025 2:44 AM EDT us Sin Min Nancy Singletary DMD, MD LAB BLOOD ORDERABLES Melida l Result Performing Organization Address City/[facility] Co de Phone Number [facility] [address] [place] [address] * (ABNORMAL) CBC W/O Differential (08/29/2025 2:37 AM EDT) Pathologist [facility] WBC Count 11.08(H) 3.70 - 10.30 10*3/uL LAB HEMATOLOGY METHOD 08/29/2025 2:57 AM EDT [facility] RBC Count 3.09(L) 4.60 - 6.10 10*6/uL LAB HEMATOLOGY METHOD 08/29/2025 2:57 AM EDT [facility] HGB 9.6(L) 13.7 - 17.5 g/dL LAB HEMATOLOGY METHOD 08/29/2025 2:57 AM EDT [facility] HCT 29.0(L) 40.0 - 51.0 % LAB HEMATOLOGY METHOD 08/29/2025 2:57 AM EDT [facility] Platelet Count 547(H) 155 - 369 10*3/uL LAB HEMATOLOGY METHOD 08/29/2025 2:57 AM EDT [facility] MCV 94 79 - 98 fL LAB HEMATOLOGY METHOD 08/29/2025 2:57 AM EDT [facility] MCH 31.1 26.0 - 32.0 pg LAB HEMATOLOGY METHOD 08/29/2025 2:57 AM EDT [facility] MCHC 33.1 30.7 - 35.5 g/dL LAB HEMATOLOGY METHOD 08/29/2025 2:57 AM EDT [facility] RDW 13.1 11.5 - 14.5 % LAB HEMATOLOGY METHOD 08/29/2025 2:57 AM EDT [facility] MPV 8.6(L) 8.8 - 12.5 fL LAB HEMATOLOGY METHOD 08/29/2025 2:57 AM EDT [facility] nRBC 0.0 <=0.0 per 100 WBCs LAB HEMATOLOGY METHOD 08/29/2025 2:57 AM EDT [facility] Blood Venous blood specimen / Unknown Venipuncture / Unknown 08/29/2025 2:37 AM EDT 08/29/2025 2:44 AM EDT us Sin Min M Hayder [place] MD LAB BLOOD ORDERABLES Melida l Result [facility] [address] [place] [address] * (ABNORMAL) Basic Metabolic Panel, Plasma (08/29/2025 2:37 AM EDT) Glucose, Plasma 110(H) 74 - 99 mg/dL 08/29/2025 3:13 AM EDT [facility] BUN, Plasma 19 7 - 21 mg/dL 08/29/2025 3:13 AM EDT [facility] Creatinine, Plasma 0.72 0.70 - 1.20 mg/dL 08/29/2025 3:13 AM EDT [facility] BUN/Creatinine Ratio 26 08/29/2025 3:13 AM EDT [facility] Sodium, Plasma 138 136 - 145 mmol/L 08/29/2025 3:13 AM EDT [facility] Potassium, Plasma 3.8 3.6 - 4.9 mmol/L 08/29/2025 3:13 AM EDT [facility] Chloride, Plasma 100 97 - 107 mmol/L 08/29/2025 3:13 AM EDT [facility] CO2, Plasma 25 22 - 29 mmol/L 08/29/2025 3:13 AM EDT [facility] Anion Gap 13 6 - 16 mmol/L 08/29/2025 3:13 AM EDT [facility] Total Calcium, Plasma 9.0 8.9 - 10.2 mg/dL 08/29/2025 3:13 AM EDT [facility] eGFRcr 109.9 mL/min/1.7 3m*2 08/29/2025 3:13 AM EDT [facility] Comment:Reported eGFRcr in m L/min/1.73m2 is based the CKD-EPI 2020 equation that does not use a race coefficient. Blood Venous blood specimen / Unknown Venipuncture / Unknown 08/29/2025 2:37 AM EDT 08/29/2025 2:44 AM EDT us Sin Min M Hayder [place] MD LAB BLOOD ORDERABLES Melida l Result [facility] [address] [place] [address] * (ABNORMAL) POCT glucose meter (08/28/2025 5:41 AM EDT) [facility] POCT Glucose 105(H) 74 - 99 mg/dL [...] Comment 08/28/2025 5:42 AM EDT [facility] Digital Associate ID Lavonne Mccauley 08/28/2025 5:42 AM EDT [facility] Device ID [id number] 08/28/2025 5:42 AM EDT [facility] Specimen Type POC Capillary 08/28/2025 5:42 AM EDT [facility] Blood Capillary blood specimen / Unknown 08/28/2025 5:41 AM EDT 08/28/2025 5:42 AM EDT us Alvaro Adrian DMD, MD LAB POINT OF CA RE TEST DOCKED DEVICE UNSOLICITED RESULTS Final Result Performing Organization Address City/[facility]/ZIP Co de Phone Number [facility] [address] [place] [address] * Phosphorus, Plasma (08/28/2025 3:54 AM EDT) [facility] Phosphorus, Plasma 4.3 2.5 - 4.5 mg/dL 08/28/2025 4:29 AM EDT [facility] Blood Venous blood specimen / Unknown Venipuncture / Unknown 08/28/2025 3:54 AM EDT 08/28/2025 3:59 AM EDT us Khadar Singletary DMD, MD LAB BLOOD ORDERABLES Melida l Result [facility] [address] [place] [address] * Magnesium, Plasma (08/28/2025 3:54 AM EDT) [facility] Magnesium, Plasma 2.2 1.9 - 2.4 mg/dL 08/28/2025 4:29 AM EDT [facility] Blood Venous blood specimen / Unknown Venipuncture / Unknown 08/28/2025 3:54 AM EDT 08/28/2025 3:59 AM EDT us Sin Min M Hayder [place] MD LAB BLOOD ORDERABLES Melida l Result [facility] [address] [place] [address] * (ABNORMAL) CBC W/O Differential (08/28/2025 3:54 AM EDT) WBC Count 10.56(H) 3.70 - 10.30 10*3/uL LAB HEMATOLOGY METHOD 08/28/2025 4:07 AM EDT [facility] RBC Count 3.08(L) 4.60 - 6.10 10*6/uL LAB HEMATOLOGY METHOD 08/28/2025 4:07 AM EDT [facility] HGB 9.5(L) 13.7 - 17.5 g/dL LAB HEMATOLOGY METHOD 08/28/2025 4:07 AM EDT [facility] HCT 28.8(L) 40.0 - 51.0 % LAB HEMATOLOGY METHOD 08/28/2025 4:07 AM EDT [facility] Platelet Count 552(H) 155 - 369 10*3/uL LAB HEMATOLOGY METHOD 08/28/2025 4:07 AM EDT [facility] MCV 94 79 - 98 fL LAB HEMATOLOGY METHOD 08/28/2025 4:07 AM EDT [facility] MCH 30.8 26.0 - 32.0 pg LAB HEMATOLOGY METHOD 08/28/2025 4:07 AM EDT [facility] MCHC 33.0 30.7 - 35.5 g/dL LAB HEMATOLOGY METHOD 08/28/2025 4:07 AM EDT [facility] RDW 13.1 11.5 - 14.5 % LAB HEMATOLOGY METHOD 08/28/2025 4:07 AM EDT [facility] MPV 8.7(L) 8.8 - 12.5 fL LAB HEMATOLOGY METHOD 08/28/2025 4:07 AM EDT [facility] nRBC 0.0 <=0.0 per 100 WBCs LAB HEMATOLOGY METHOD 08/28/2025 4:07 AM EDT [facility] Blood Venous blood specimen / Unknown Venipuncture / Unknown 08/28/2025 3:54 AM EDT 08/28/2025 3:59 AM EDT us Sin Min M Hayder NJ MD LAB BLOOD ORDERABLES Melida l Result [facility] [address] [place] [address] * (ABNORMAL) Basic Metabolic Panel, Plasma (08/28/2025 3:54 AM EDT) Glucose, Plasma 101(H) 74 - 99 mg/dL 08/28/2025 4:29 AM EDT [facility] BUN, Plasma 18 7 - 21 mg/dL 08/28/2025 4:29 AM EDT [facility] Creatinine, Plasma 0.62(L) 0.70 - 1.20 mg/dL 08/28/2025 4:29 AM EDT [facility] BUN/Creatinine Ratio 29 08/28/2025 4:29 AM EDT [facility] Sodium, Plasma 136 136 - 145 mmol/L 08/28/2025 4:29 AM EDT [facility] Potassium, Plasma 4.2 3.6 - 4.9 mmol/L 08/28/2025 4:29 AM EDT [facility] Chloride, Plasma 99 97 - 107 mmol/L 08/28/2025 4:29 AM EDT [facility] CO2, Plasma 28 22 - 29 mmol/L 08/28/2025 4:29 AM EDT [facility] Anion Gap 9 6 - 16 mmol/L 08/28/2025 4:29 AM EDT [facility] Total Calcium, Plasma 9.3 8.9 - 10.2 mg/dL 08/28/2025 4:29 AM EDT [facility] eGFRcr 115.0 mL/min/1.7 3m*2 08/28/2025 4:29 AM EDT [facility] Comment:Reported eGFRcr in m L/min/1.73m2 is based the CKD-EPI 2020 equation that does not use a race coefficient. Blood Venous blood specimen / Unknown Venipuncture / Unknown 08/28/2025 3:54 AM EDT 08/28/2025 3:59 AM EDT us Sin Min Nancy Singletary DMD, MD LAB BLOOD ORDERABLES Melida l Result Performing Organization Address [facility] Co de Phone Number [facility] [address] [place] [address] * Type and Screen (08/28/2025 3:54 AM EDT) [facility] ABO/Rh A Negative 08/28/2025 3:58 AM EDT BLOOD BANK Antibody Screen Negative 08/28/2025 3:58 AM EDT [facility] Specimen Expiration 08/31/2025 23:59 08/28/2025 3:58 AM EDT [facility] Blood Venous blood specimen / Unknown Venipuncture / Unknown 08/28/2025 3:54 AM EDT 08/28/2025 3:58 AM EDT us Alvaro Adrian DMD, MD LAB BLOOD BANK TEST ORD ERABLES Final Result Performing Organization Address [facility] Phone Number BLOOD BANK [address] [place] [address], * POCT glucose meter (08/27/2025 11:01 PM EDT) [facility] POCT Glucose 97 74 - 99 mg/dL [...] for testing. Comment 08/27/2025 11:03 PM EDT [facility] Digital Associate ID Lavonne Mccauley 08/27/2025 11:03 PM EDT [facility] Device ID [id number] 08/27/2025 11:03 PM EDT [facility] Specimen Type POC Capillary 08/27/2025 11:03 PM EDT [facility] Blood Capillary blood specimen / Unknown 08/27/2025 11:01 PM EDT 08/27/2025 11:03 PM EDT us Alvaro Adrian DMD, MD LAB POINT OF CA RE TEST DOCKED DEVICE UNSOLICITED RESULTS Final Result Performing Organization Address City/[facility] Co de Phone Number [facility] [address] [place] [address] * (ABNORMAL) POCT glucose meter (08/27/2025 5:49 PM EDT) [facility] POCT Glucose 119(H) 74 - 99 mg/dL [...] 08/27/2025 5:54 PM EDT [facility] Digital Associate ID Kanika Garay 08/27/2025 5:54 PM EDT [facility] Device ID [id number] 08/27/2025 5:54 PM EDT [facility] Specimen Type POC Capillary 08/27/2025 5:54 PM EDT [facility] Blood Capillary blood specimen / Unknown 08/27/2025 5:49 PM EDT 08/27/2025 5:54 PM EDT us Alvaro Adrian DMD, MD LAB POINT OF CA RE TEST DOCKED DEVICE UNSOLICITED RESULTS Final Result Performing Organization Address City/[facility] Co de Phone Number [facility] [address] [place] [address] * (ABNORMAL) POCT glucose meter (08/27/2025 11:38 [...] Comment 08/27/2025 11:40 AM EDT [facility] Digital Associate ID Kanika Garay 08/27/2025 11:40 AM EDT [facility] Device ID [id number] 08/27/2025 11:40 AM EDT [facility] Specimen Type POC Capillary 08/27/2025 11:40 AM EDT [facility] Blood Capillary blood specimen / Unknown 08/27/2025 11:38 AM EDT 08/27/2025 11:40 AM EDT Alvaro Adrian DMD, MD LAB POINT OF CA RE TEST DOCKED DEVICE UNSOLICITED RESULTS Final Result [facility] [address] [place] [address] * (ABNORMAL) POCT glucose meter (08/27/2025 5:42 AM EDT) [facility] POCT Glucose 144(H) 74 - 99 mg/dL [...] for testing. Comment 08/27/2025 5:43 AM EDT [facility] Digital Associate ID Kirsty Garcia 08/27/2025 5:43 AM EDT [facility] Device ID [id number] 08/27/2025 5:43 AM EDT [facility] Specimen Type POC Capillary 08/27/2025 5:43 AM EDT [facility] Blood Capillary blood specimen / Unknown 08/27/2025 5:42 AM EDT 08/27/2025 5:43 AM EDT us Alvaro Adrian DMD, MD LAB POINT OF CA RE TEST DOCKED DEVICE UNSOLICITED RESULTS Final Result Performing Organization Address [facility]/ZIP Co de Phone Number [facility] [address] [place] [address] * Phosphorus, Plasma (08/27/2025 3:44 AM EDT) Phosphorus, Plasma 3.5 2.5 - 4.5 mg/dL 08/27/2025 4:29 AM EDT [facility] Blood Venous blood specimen / Unknown Venipuncture / Unknown 08/27/2025 3:44 AM EDT 08/27/2025 3:59 AM EDT us Sin Min Nancy Singletary DMD, MD LAB BLOOD ORDERABLES Melida l Result Performing Organization Address City/[facility] Co de Phone Number [facility] [address] [place] [address] * Magnesium, Plasma (08/27/2025 3:44 AM EDT) Magnesium, Plasma 2.1 1.9 - 2.4 mg/dL 08/27/2025 4:29 AM EDT [facility] Blood Venous blood specimen / Unknown Venipuncture / Unknown 08/27/2025 3:44 AM EDT 08/27/2025 3:59 AM EDT us Sin Min Nancy Singletary DMD, MD LAB BLOOD ORDERABLES Melida l Result Performing Organization Address City/[facility]/ZIP Co de Phone Number [facility] [address] [place] [address] * (ABNORMAL) CBC W/O Differential (08/27/2025 3:44 AM EDT) WBC Count 10.56(H) 3.70 - 10.30 10*3/uL LAB HEMATOLOGY METHOD 08/27/2025 4:13 AM EDT [facility] RBC Count 2.99(L) 4.60 - 6.10 10*6/uL LAB HEMATOLOGY METHOD 08/27/2025 4:13 AM EDT [facility] HGB 9.3(L) 13.7 - 17.5 g/dL LAB HEMATOLOGY METHOD 08/27/2025 4:13 AM EDT [facility] HCT 28.1(L) 40.0 - 51.0 % LAB HEMATOLOGY METHOD 08/27/2025 4:13 AM EDT [facility] Platelet Count 483(H) 155 - 369 10*3/uL LAB HEMATOLOGY METHOD 08/27/2025 4:13 AM EDT [facility] MCV 94 79 - 98 fL LAB HEMATOLOGY METHOD 08/27/2025 4:13 AM EDT [facility] MCH 31.1 26.0 - 32.0 pg LAB HEMATOLOGY METHOD 08/27/2025 4:13 AM EDT [facility] MCHC 33.1 30.7 - 35.5 g/dL LAB HEMATOLOGY METHOD 08/27/2025 4:13 AM EDT [facility] RDW 12.9 11.5 - 14.5 % LAB HEMATOLOGY METHOD 08/27/2025 4:13 AM EDT [facility] MPV 8.9 8.8 - 12.5 fL LAB HEMATOLOGY METHOD 08/27/2025 4:13 AM EDT [facility] nRBC 0.0 <=0.0 per 100 WBCs LAB HEMATOLOGY METHOD 08/27/2025 4:13 AM EDT [facility] Blood Venous blood specimen / Unknown Venipuncture / Unknown 08/27/2025 3:44 AM EDT 08/27/2025 4:00 AM EDT us Sin Min M Hayder NJ MD LAB BLOOD ORDERABLES Melida l Result [facility] [address] [place] [address] * (ABNORMAL) Basic Metabolic Panel, Plasma (08/27/2025 3:44 AM EDT) Glucose, Plasma 99 74 - 99 mg/dL 08/27/2025 4:29 AM EDT [facility] BUN, Plasma 17 7 - 21 mg/dL 08/27/2025 4:29 AM EDT [facility] Creatinine, Plasma 0.60(L) 0.70 - 1.20 mg/dL 08/27/2025 4:29 AM EDT [facility] BUN/Creatinine Ratio 28 08/27/2025 4:29 AM EDT [facility] Sodium, Plasma 135(L) 136 - 145 mmol/L 08/27/2025 4:29 AM EDT [facility] Potassium, Plasma 4.2 3.6 - 4.9 mmol/L 08/27/2025 4:29 AM EDT [facility] Chloride, Plasma 99 97 - 107 mmol/L 08/27/2025 4:29 AM EDT [facility] CO2, Plasma 28 22 - 29 mmol/L 08/27/2025 4:29 AM EDT [facility] Anion Gap 8 6 - 16 mmol/L 08/27/2025 4:29 AM EDT [facility] Total Calcium, Plasma 9.2 8.9 - 10.2 mg/dL 08/27/2025 4:29 AM EDT [facility] eGFRcr 116.1 mL/min/1.7 3m*2 08/27/2025 4:29 AM EDT [facility] Comment:Reported eGFRcr in m L/min/1.73m2 is based the CKD-EPI 2020 equation that does not use a race coefficient. Blood Venous blood specimen / Unknown Venipuncture / Unknown 08/27/2025 3:44 AM EDT 08/27/2025 3:59 AM EDT us Sin Min M Hayder NJ MD LAB BLOOD ORDERABLES Melida l Result [facility] [address] [place] [address] * (ABNORMAL) POCT glucose meter (08/26/2025 11:56 PM EDT) Pathologist [facility] POCT Glucose 103(H) 74 - 99 mg/dL 08/26/2025 11:57 PM EDT [facility] Comment:Accuracy of a glucos [...] Comment 08/26/2025 11:57 PM EDT [facility] Digital Associate ID Kirsty Garcia 08/26/2025 11:57 PM EDT [facility] LAB Device ID [id number] 08/26/2025 11:57 PM EDT [facility] Specimen Type POC Capillary 08/26/2025 11:57 PM EDT [facility] Blood Capillary blood specimen / Unknown 08/26/2025 11:56 PM EDT 08/26/2025 11:57 PM EDT us Alvaro Adrian DMD, MD LAB POINT OF CA RE TEST DOCKED DEVICE UNSOLICITED RESULTS Final Result Performing Organization Address City/State/[facility] Co de Phone Number [facility] [address] [place] [address] * (ABNORMAL) POCT glucose meter (08/26/2025 6:27 PM EDT) [facility] Signature POCT Glucose 106(H) 74 - 99 mg/dL [...] for testing. Comment 08/26/2025 6:28 PM EDT [facility] Digital Associate ID Isha Lemos 08/26/2025 6:28 PM EDT [facility] Device ID [id number] 08/26/2025 6:28 PM EDT [facility] Specimen Type POC Capillary 08/26/2025 6:28 PM EDT [facility] Blood Capillary blood specimen / Unknown 08/26/2025 6:27 PM EDT 08/26/2025 6:28 PM EDT us Alvaro Adrian DMD, MD LAB POINT OF CA RE TEST DOCKED DEVICE UNSOLICITED RESULTS Final Result [facility] [address] [place] [id number] * Wound VAC Dressing Changes (Non-Instillation) (08/26/2025 1:00 PM EDT) Narrative Senia Crsos PA - 08/26/2025 1:00 PM EDT Senia [...] POCT glucose meter (08/26/2025 12:48 PM EDT) [facility] POCT Glucose 84 74 - 99 mg/dL [...] 08/26/2025 12:50 PM EDT [facility] Digital Associate ID Isha Lemos 08/26/2025 12:50 PM EDT [facility] Device ID [id number] 08/26/2025 12:50 PM EDT [facility] Specimen Type POC Capillary 08/26/2025 12:50 PM EDT [facility] Blood Capillary blood specimen / Unknown 08/26/2025 12:48 PM EDT 08/26/2025 12:50 PM EDT Alvaro Adrian DMD, MD LAB POINT OF CA RE TEST DOCKED DEVICE UNSOLICITED RESULTS Final Result Performing Organization Address [facility] Co de Phone Number [facility] [address] [place] [address] * POCT glucose meter (08/26/2025 5:44 AM EDT) POCT Glucose 95 74 - 99 mg/dL 08/26/2025 5:46 AM EDT [facility] Comment:Accuracy of a glucos e result [...] for testing. Comment 08/26/2025 5:46 AM EDT [facility] Digital Associate ID Latisha Winter 08/26/2025 5:46 AM EDT [facility] Device ID [id number] 08/26/2025 5:46 AM EDT [facility] Specimen Type POC Capillary 08/26/2025 5:46 AM EDT [facility] Blood Capillary blood specimen / Unknown 08/26/2025 5:44 AM EDT 08/26/2025 5:46 AM EDT us Alvaro Adrian DMD, MD LAB POINT OF CA RE TEST DOCKED DEVICE UNSOLICITED RESULTS Final Result Performing Organization Address City/[facility] Co de Phone Number [facility] [address] [place] [address] * Phosphorus, Plasma (08/26/2025 3:27 AM EDT) Phosphorus, Plasma 4.0 2.5 - 4.5 mg/dL 08/26/2025 4:11 AM EDT [facility] Blood Venous blood specimen / Unknown Venipuncture / Unknown 08/26/2025 3:27 AM EDT 08/26/2025 3:38 AM EDT Khadar Singletary DMD, MD LAB BLOOD ORDERABLES Melida l Result [facility] [address] [place] [address] * Magnesium, Plasma (08/26/2025 3:27 AM EDT) Pathologist [facility] Magnesium, Plasma 2.2 1.9 - 2.4 mg/dL 08/26/2025 4:11 AM EDT [facility] Blood Venous blood specimen / Unknown Venipuncture / Unknown 08/26/2025 3:27 AM EDT 08/26/2025 3:38 AM EDT [facility] Dilan Singletary DMD, MD LAB BLOOD ORDERABLES Melida l Result Performing Organization Address City/[facility]/ZIP Co de Phone Number [facility] [address] [place] [address] * (ABNORMAL) CBC W/O Differential (08/26/2025 3:27 AM EDT) [facility] WBC Count 11.66(H) 3.70 - 10.30 10*3/uL LAB HEMATOLOGY METHOD 08/26/2025 3:47 AM EDT [facility] RBC Count 3.00(L) 4.60 - 6.10 10*6/uL LAB HEMATOLOGY METHOD 08/26/2025 3:47 AM EDT [facility] HGB 9.2(L) 13.7 - 17.5 g/dL LAB HEMATOLOGY METHOD 08/26/2025 3:47 AM EDT [facility] HCT 28.1(L) 40.0 - 51.0 % LAB HEMATOLOGY METHOD 08/26/2025 3:47 AM EDT [facility] Platelet Count 455(H) 155 - 369 10*3/uL LAB HEMATOLOGY METHOD 08/26/2025 3:47 AM EDT [facility] MCV 94 79 - 98 fL LAB HEMATOLOGY METHOD 08/26/2025 3:47 AM EDT [facility] MCH 30.7 26.0 - 32.0 pg LAB HEMATOLOGY METHOD 08/26/2025 3:47 AM EDT [facility] MCHC 32.7 30.7 - 35.5 g/dL LAB HEMATOLOGY METHOD 08/26/2025 3:47 AM EDT [facility] RDW 12.6 11.5 - 14.5 % LAB HEMATOLOGY METHOD 08/26/2025 3:47 AM EDT [facility] MPV 9.0 8.8 - 12.5 fL LAB HEMATOLOGY METHOD 08/26/2025 3:47 AM EDT [facility] nRBC 0.0 <=0.0 per 100 WBCs LAB HEMATOLOGY METHOD 08/26/2025 3:47 AM EDT [facility] Blood Venous blood specimen / Unknown Venipuncture / Unknown 08/26/2025 3:27 AM EDT 08/26/2025 3:38 AM EDT us Sin Min M Hayder NJ MD LAB BLOOD ORDERABLES Melida l Result [facility] [address] [place] [address] * (ABNORMAL) Basic Metabolic Panel, Plasma (08/26/2025 3:27 AM EDT) Glucose, Plasma 101(H) 74 - 99 mg/dL 08/26/2025 4:11 AM EDT [facility] BUN, Plasma 19 7 - 21 mg/dL 08/26/2025 4:11 AM EDT [facility] Creatinine, Plasma 0.59(L) 0.70 - 1.20 mg/dL 08/26/2025 4:11 AM EDT [facility] BUN/Creatinine Ratio 32 08/26/2025 4:11 AM EDT [facility] Sodium, Plasma 138 136 - 145 mmol/L 08/26/2025 4:11 AM EDT [facility] Potassium, Plasma 4.3 3.6 - 4.9 mmol/L 08/26/2025 4:11 AM EDT [facility] Chloride, Plasma 101 97 - 107 mmol/L 08/26/2025 4:11 AM EDT [facility] CO2, Plasma 25 22 - 29 mmol/L 08/26/2025 4:11 AM EDT [facility] Anion Gap 12 6 - 16 mmol/L 08/26/2025 4:11 AM EDT [facility] Total Calcium, Plasma 8.9 8.9 - 10.2 mg/dL 08/26/2025 4:11 AM EDT [facility] eGFRcr 116.7 mL/min/1.7 3m*2 08/26/2025 4:11 AM EDT [facility] Comment:Reported eGFRcr in m L/min/1.73m2 is based the CKD-EPI 2020 equation that does not use a race coefficient. Blood Venous blood specimen / Unknown Venipuncture / Unknown 08/26/2025 3:27 AM EDT 08/26/2025 3:38 AM EDT us Khadar Singletary DMD, MD LAB BLOOD ORDERABLES Melida l Result [facility] [address] [place] [address] * (ABNORMAL) POCT glucose meter (08/25/2025 11:38 PM EDT) POCT Glucose 129(H) 74 - 99 mg/dL 08/26/2025 12:00 AM EDT [facility] Comment:Accuracy of a [...] for testing. Comment 08/26/2025 12:00 AM EDT [facility] Digital Associate ID Hailey Lund 08/26/2025 12:00 AM EDT [facility] Device ID [id number] 08/26/2025 12:00 AM EDT [facility] Specimen Type POC Capillary 08/26/2025 12:00 AM EDT [facility] Blood Capillary blood specimen / Unknown 08/25/2025 11:38 PM EDT 08/26/2025 12:00 AM EDT us Alvaro Adrian DMD, MD LAB POINT OF CA RE TEST DOCKED DEVICE UNSOLICITED RESULTS Final Result [facility] [address] [place] [address] * POCT glucose meter (08/25/2025 5:08 PM EDT) [facility] POCT Glucose 91 74 - 99 mg/dL [...] 08/25/2025 5:10 PM EDT [facility] Digital Associate ID Marily Cao 5:10 PM EDT [facility] Device ID [id number] 08/25/2025 5:10 PM EDT [facility] Specimen Type POC Capillary 08/25/2025 5:10 PM EDT [facility] Blood Capillary blood specimen / Unknown 08/25/2025 5:08 PM EDT 08/25/2025 5:10 PM EDT Alvaro Adrian DMD, MD LAB POINT OF CA RE TEST DOCKED DEVICE UNSOLICITED RESULTS Final Result Performing Organization Address City/[facility] Co de Phone Number [facility] [address] [place] [address] * (ABNORMAL) POCT glucose meter (08/25/2025 11:42 AM EDT) [facility] POCT Glucose 112(H) 74 - 99 mg/dL [...] for testing. Comment 08/25/2025 12:00 PM EDT [facility] Digital Associate ID Marily Cao 12:00 PM EDT [facility] Device ID [id number] 08/25/2025 12:00 PM EDT [facility] Specimen Type POC Capillary 08/25/2025 12:00 PM EDT [facility] Blood Capillary blood specimen / Unknown 08/25/2025 11:42 AM EDT 08/25/2025 12:00 PM EDT us Alvaro Adrian DMD, MD LAB POINT OF CA RE TEST DOCKED DEVICE UNSOLICITED RESULTS Final Result Performing Organization Address City/[facility] Co de Phone Number [facility] [address] [place] [address] * POCT glucose meter (08/25/2025 5:02 AM EDT) [facility] POCT Glucose 83 74 - 99 mg/dL [...] for testing. Comment 08/25/2025 5:04 AM EDT [facility] Digital Associate ID Maxwell Ortega 5:04 AM EDT [facility] Device ID [id number] 08/25/2025 5:04 AM EDT [facility] Specimen Type POC Capillary 08/25/2025 5:04 AM EDT [facility] Blood Capillary blood specimen / Unknown 08/25/2025 5:02 AM EDT 08/25/2025 5:04 AM EDT us Alvaro Adrian DMD, MD LAB POINT OF CA RE TEST DOCKED DEVICE UNSOLICITED RESULTS Final Result Performing Organization Address City/[facility] Co de Phone Number [facility] [address] [place] [address] * (ABNORMAL) POCT glucose meter (08/24/2025 11:06 [...] for testing. Comment 08/24/2025 11:08 PM EDT [facility] Digital Associate ID Hailey Lund 08/24/2025 11:08 PM EDT [facility] Device ID [id number] 08/24/2025 11:08 PM EDT [facility] Specimen Type POC Capillary 08/24/2025 11:08 PM EDT [facility] Blood Capillary blood specimen / Unknown 08/24/2025 11:06 PM EDT 08/24/2025 11:08 PM EDT Alvaro Adrian DMD, MD LAB POINT OF CA RE TEST DOCKED DEVICE UNSOLICITED RESULTS Final Result [facility] [address] [place] [address] * (ABNORMAL) POCT glucose meter (08/24/2025 5:33 PM EDT) [facility] POCT Glucose 133(H) 74 - 99 mg/dL [...] 08/24/2025 5:35 PM EDT [facility] Digital Associate ID Renee Mills 08/24/2025 5:35 PM EDT [facility] Device ID [id number] 08/24/2025 5:35 PM EDT [facility] Specimen Type POC Capillary 08/24/2025 5:35 PM EDT [facility] Blood Capillary blood specimen / Unknown 08/24/2025 5:33 PM EDT 08/24/2025 5:35 PM EDT us Alvaro Adrian DMD, MD LAB POINT [facility] RE TEST DOCKED DEVICE UNSOLICITED RESULTS Final Result Performing Organization Address [facility] de Phone Number HEALTHCARE LAB [address] [place] [address] * (ABNORMAL) POCT glucose meter (08/24/2025 12:32 PM EDT) [facility] POCT Glucose 117(H) 74 - 99 mg/dL [...] for testing. Comment 08/24/2025 12:38 PM EDT HEALTHCARE LAB Digital Associate ID Renee Mills 08/24/2025 12:38 PM EDT HEALTHCARE LAB Device ID [id number] 08/24/2025 12:38 PM EDT HEALTHCARE LAB Specimen Type POC Capillary 08/24/2025 12:38 PM EDT [facility] Blood Capillary blood specimen / Unknown 08/24/2025 12:32 PM EDT 08/24/2025 12:38 PM EDT us Alvaro Adrian DMD, MD LAB POINT OF [place] RE TEST DOCKED DEVICE UNSOLICITED RESULTS Final Result Performing Organization Address City/[facility] de Phone Number [facility] [address] [place] [address] * POCT glucose meter (08/24/2025 5:57 AM EDT) [facility] POCT Glucose 92 74 - 99 mg/dL [...] Comment 08/24/2025 5:59 AM EDT HEALTHCARE LAB Digital Associate ID Morenita Lizama 025 5:59 AM EDT HEALTHCARE LAB Device ID [id number] 08/24/2025 5:59 AM EDT HEALTHCARE LAB Specimen Type POC Capillary 08/24/2025 5:59 AM EDT HEALTHCARE LAB Blood Capillary blood specimen / Unknown 08/24/2025 5:57 AM EDT 08/24/2025 5:59 AM EDT us Alvaro Adrian DMD, MD LAB [place]INT [place] RE TEST DOCKED DEVICE UNSOLICITED RESULTS Final Result HEALTHCARE LAB [address] [place], [place] [id number] * (ABNORMAL) CBC W/O Differential (08/24/2025 3:29 AM EDT) WBC Count 10.15 3.70 - 10.30 10*3/uL LAB HEMATOLOGY METHOD 08/24/2025 4:13 AM EDT [facility] RBC Count 2.95(L) 4.60 - 6.10 10*6/uL LAB HEMATOLOGY METHOD 08/24/2025 4:13 AM EDT [facility] HGB 9.1(L) 13.7 - 17.5 g/dL LAB HEMATOLOGY METHOD 08/24/2025 4:13 AM EDT [facility] HCT 27.7(L) 40.0 - 51.0 % LAB HEMATOLOGY METHOD 08/24/2025 4:13 AM EDT [facility] Platelet Count 381(H) 155 - 369 10*3/uL LAB HEMATOLOGY METHOD 08/24/2025 4:13 AM EDT [facility] MCV 94 79 - 98 fL LAB HEMATOLOGY METHOD 08/24/2025 4:13 AM EDT [facility] MCH 30.8 26.0 - 32.0 pg LAB HEMATOLOGY METHOD 08/24/2025 4:13 AM EDT [facility] MCHC 32.9 30.7 - 35.5 g/dL LAB HEMATOLOGY METHOD 08/24/2025 4:13 AM EDT [facility] RDW 12.4 11.5 - 14.5 % LAB HEMATOLOGY METHOD 08/24/2025 4:13 AM EDT [facility] MPV 9.4 8.8 - 12.5 fL LAB HEMATOLOGY METHOD 08/24/2025 4:13 AM EDT [facility] nRBC 0.0 <=0.0 per 100 WBCs LAB HEMATOLOGY METHOD 08/24/2025 4:13 AM EDT [facility] Blood Venous blood specimen / Unknown Venipuncture / Unknown 08/24/2025 3:29 AM EDT 08/24/2025 4:01 AM EDT us Alvaro Adrian DMD, MD LAB BLOOD ORDERABLES Fi nal Result [facility] [address] [place] [address] * (ABNORMAL) Basic Metabolic Panel, Plasma (08/24/2025 3:29 AM EDT) Glucose, Plasma 107(H) 74 - 99 mg/dL 08/24/2025 4:28 AM EDT [facility] BUN, Plasma 17 7 - 21 mg/dL 08/24/2025 4:28 AM EDT [facility] Creatinine, Plasma 0.59(L) 0.70 - 1.20 mg/dL 08/24/2025 4:28 AM EDT [facility] BUN/Creatinine Ratio 29 08/24/2025 4:28 AM EDT [facility] Sodium, Plasma 137 136 - 145 mmol/L 08/24/2025 4:28 AM EDT [facility] Potassium, Plasma 3.9 3.6 - 4.9 mmol/L 08/24/2025 4:28 AM EDT [facility] Chloride, Plasma 101 97 - 107 mmol/L 08/24/2025 4:28 AM EDT [facility] CO2, Plasma 27 22 - 29 mmol/L 08/24/2025 4:28 AM EDT [facility] Anion Gap 9 6 - 16 mmol/L 08/24/2025 4:28 AM EDT [facility] Total Calcium, Plasma 8.8(L) 8.9 - 10.2 mg/dL 08/24/2025 4:28 AM EDT [facility] eGFRcr 116.7 mL/min/1.7 3m*2 08/24/2025 4:28 AM EDT [facility] Comment:Reported eGFRcr in m L/min/1.73m2 is based the CKD-EPI 2020 equation that does not use a race coefficient. Blood Venous blood specimen / Unknown Venipuncture / Unknown 08/24/2025 3:29 AM EDT 08/24/2025 3:59 AM EDT us Alvaro Adrian DMD, MD LAB BLOOD ORDERABLES Fi nal Result Performing Organization Address City/[facility]/ZIP Co de Phone Number [facility] [address] [place] [address] * Magnesium, Plasma (08/24/2025 3:29 AM EDT) Magnesium, Plasma 2.0 1.9 - 2.4 mg/dL 08/24/2025 4:28 AM EDT [facility] Blood Venous blood specimen / Unknown Venipuncture / Unknown 08/24/2025 3:29 AM EDT 08/24/2025 3:59 AM EDT us Alvaro Adrian DMD, MD LAB BLOOD ORDERABLES Fi nal Result [facility] [address] [place] [address] * Phosphorus, Plasma (08/24/2025 3:29 AM EDT) Phosphorus, Plasma 3.7 2.5 - 4.5 mg/dL 08/24/2025 4:28 AM EDT [facility] Blood Venous blood specimen / Unknown Venipuncture / Unknown 08/24/2025 3:29 AM EDT 08/24/2025 3:59 AM EDT us Alvaro Adrian DMD, MD LAB BLOOD ORDERABLES Fi nal Result [facility] [address] [place] [address] * (ABNORMAL) POCT glucose meter (08/24/2025 12:46 AM EDT) POCT Glucose 126(H) 74 - 99 mg/dL [...] for testing. Comment 08/24/2025 12:48 AM EDT HEALTHCARE LAB Digital Associate ID Morenita Lizama 025 12:48 AM EDT [facility] LAB Device ID [id number] 08/24/2025 12:48 AM EDT [facility] Specimen Type POC Capillary 08/24/2025 12:48 AM EDT [facility] Blood Capillary blood specimen / Unknown 08/24/2025 12:46 AM EDT 08/24/2025 12:48 AM EDT Alvaro Adrian DMD, MD LAB POINT [place] RE TEST DOCKED DEVICE UNSOLICITED RESULTS Final Result Performing Organization Address City/[facility] Co de Phone Number [facility] [address] [place] [address] * POCT glucose meter (08/23/2025 6:45 PM EDT) Pathologist [facility] POCT Glucose 83 74 - 99 mg/dL [...] 08/23/2025 6:47 PM EDT [facility] Digital Associate ID Nicole Doss 08/23/2025 6:47 PM EDT [facility] Device ID [id number] 08/23/2025 6:47 PM EDT [facility] Specimen Type POC Capillary 08/23/2025 6:47 PM EDT HEALTHCARE LAB Blood Capillary blood specimen / Unknown 08/23/2025 6:45 PM EDT 08/23/2025 6:47 PM EDT us Alvaro Adrian DMD, MD LAB POINT [place] RE TEST DOCKED DEVICE UNSOLICITED RESULTS Final Result Performing Organization Address City/[facility] Co de Phone Number [facility] [address] [place] [address] * POCT glucose meter (08/23/2025 1:07 PM EDT) [facility] POCT Glucose 98 74 - 99 mg/dL [...] 08/23/2025 1:10 PM EDT [facility] Digital Associate ID Nicole Doss 08/23/2025 1:10 PM EDT [facility] Device ID [id number] 08/23/2025 1:10 PM EDT [facility] Specimen Type POC Capillary 08/23/2025 1:10 PM EDT HEALTHCARE LAB Blood Capillary blood specimen / Unknown 08/23/2025 1:07 PM EDT 08/23/2025 1:10 PM EDT us Alvaro Adrian DMD, MD LAB POINT [facility] [place] RE TEST DOCKED DEVICE UNSOLICITED RESULTS Final Result Performing Organization Address City/[facility] Co de Phone Number [facility] [address] [place] [address] * (ABNORMAL) CBC W/O Differential (08/23/2025 3:26 AM EDT) WBC Count 10.09 3.70 - 10.30 10*3/uL LAB HEMATOLOGY METHOD 08/23/2025 3:45 AM EDT [facility] RBC Count 3.11(L) 4.60 - 6.10 10*6/uL LAB HEMATOLOGY METHOD 08/23/2025 3:45 AM EDT [facility] HGB 9.5(L) 13.7 - 17.5 g/dL LAB HEMATOLOGY METHOD 08/23/2025 3:45 AM EDT [facility] HCT 29.1(L) 40.0 - 51.0 % LAB HEMATOLOGY METHOD 08/23/2025 3:45 AM EDT [facility] Platelet Count 326 155 - 369 10*3/uL LAB HEMATOLOGY METHOD 08/23/2025 3:45 AM EDT [facility] MCV 94 79 - 98 fL LAB HEMATOLOGY METHOD 08/23/2025 3:45 AM EDT [facility] MCH 30.5 26.0 - 32.0 pg LAB HEMATOLOGY METHOD 08/23/2025 3:45 AM EDT [facility] MCHC 32.6 30.7 - 35.5 g/dL LAB HEMATOLOGY METHOD 08/23/2025 3:45 AM EDT [facility] RDW 12.6 11.5 - 14.5 % LAB HEMATOLOGY METHOD 08/23/2025 3:45 AM EDT [facility] MPV 9.5 8.8 - 12.5 fL LAB HEMATOLOGY METHOD 08/23/2025 3:45 AM EDT [facility] nRBC 0.0 <=0.0 per 100 WBCs LAB HEMATOLOGY METHOD 08/23/2025 3:45 AM EDT [facility] Blood Venous blood specimen / Unknown Venipuncture / Unknown 08/23/2025 3:26 AM EDT 08/23/2025 3:34 AM EDT us Alvaro Adrian DMD, MD LAB BLOOD ORDERABLES Fi nal Result [facility] [address] [place] [address] * (ABNORMAL) Basic Metabolic Panel, Plasma (08/23/2025 3:26 AM EDT) Glucose, Plasma 100(H) 74 - 99 mg/dL 08/23/2025 4:07 AM EDT [facility] BUN, Plasma 15 7 - 21 mg/dL 08/23/2025 4:07 AM EDT [facility] Creatinine, Plasma 0.58(L) 0.70 - 1.20 mg/dL 08/23/2025 4:07 AM EDT [facility] BUN/Creatinine Ratio 26 08/23/2025 4:07 AM EDT [facility] Sodium, Plasma 137 136 - 145 mmol/L 08/23/2025 4:07 AM EDT [facility] Potassium, Plasma 4.0 3.6 - 4.9 mmol/L 08/23/2025 4:07 AM EDT [facility] Chloride, Plasma 102 97 - 107 mmol/L 08/23/2025 4:07 AM EDT [facility] CO2, Plasma 25 22 - 29 mmol/L 08/23/2025 4:07 AM EDT [facility] Anion Gap 10 6 - 16 mmol/L 08/23/2025 4:07 AM EDT [facility] Total Calcium, Plasma 8.7(L) 8.9 - 10.2 mg/dL 08/23/2025 4:07 AM EDT [facility] eGFRcr 117.3 mL/min/1.7 3m*2 08/23/2025 4:07 AM EDT [facility] Comment:Reported eGFRcr in m L/min/1.73m2 is based the CKD-EPI 2020 equation that does not use a race coefficient. Blood Venous blood specimen / Unknown Venipuncture / Unknown 08/23/2025 3:26 AM EDT 08/23/2025 3:35 AM EDT us Alvaro Adrain DMD, MD LAB BLOOD ORDERABLES Fi nal Result [facility] [address] [place] [address] * Magnesium, Plasma (08/23/2025 3:26 AM EDT) Magnesium, Plasma 2.0 1.9 - 2.4 mg/dL 08/23/2025 4:07 AM EDT [facility] Blood Venous blood specimen / Unknown Venipuncture / Unknown 08/23/2025 3:26 AM EDT 08/23/2025 3:35 AM EDT Alvaro Adrian DMD, MD LAB BLOOD [place]AB[place] [address] * Phosphorus, Plasma (08/23/2025 3:26 AM EDT) Phosphorus, Plasma 3.3 2.5 - 4.5 mg/dL 08/23/2025 4:07 AM EDT [facility] Blood Venous blood specimen / Unknown Venipuncture / Unknown 08/23/2025 3:26 AM EDT 08/23/2025 3:35 AM EDT us Alvaro Adrian DMD, MD LAB BLOOD ORDERABLES Fi nal Result Performing Organization Address City/[facility]/[place] [address] * Phosphorus (08/22/2025 5:02 AM EDT) Phosphorus, Plasma 3.1 2.5 - 4.5 mg/dL 08/22/2025 6:09 AM EDT [facility] Blood Venous blood specimen / Unknown Venipuncture / Unknown 08/22/2025 5:02 AM EDT 08/22/2025 5:33 AM EDT us Marvin Santana MD LAB BLOOD ORDERABLES Fin al Result Performing Organization Address City/[facility]/[place] [address] * Magnesium (08/22/2025 5:02 AM EDT) Magnesium, Plasma 2.0 1.9 - 2.4 mg/dL 08/22/2025 6:09 AM EDT [facility] Blood Venous blood specimen / Unknown Venipuncture / Unknown 08/22/2025 5:02 AM EDT 08/22/2025 5:33 AM EDT us Marvin Santana MD LAB BLOOD ORDERABLES Fin al Result [facility] [address] [place] [address] * (ABNORMAL) Basic metabolic panel (08/22/2025 5:02 AM EDT) Glucose, Plasma 95 74 - 99 mg/dL 08/22/2025 6:09 AM EDT [facility] BUN, Plasma 15 7 - 21 mg/dL 08/22/2025 6:09 AM EDT [facility] Creatinine, Plasma 0.52(L) 0.70 - 1.20 mg/dL 08/22/2025 6:09 AM EDT [facility] BUN/Creatinine Ratio 29 08/22/2025 6:09 AM EDT [facility] Sodium, Plasma 139 136 - 145 mmol/L 08/22/2025 6:09 AM EDT [facility] Potassium, Plasma 3.8 3.6 - 4.9 mmol/L 08/22/2025 6:09 AM EDT [facility] Chloride, Plasma 102 97 - 107 mmol/L 08/22/2025 6:09 AM EDT [facility] CO2, Plasma 27 22 - 29 mmol/L 08/22/2025 6:09 AM EDT [facility] Anion Gap 10 6 - 16 mmol/L 08/22/2025 6:09 AM EDT [facility] Total Calcium, Plasma 8.8(L) 8.9 - 10.2 mg/dL 08/22/2025 6:09 AM EDT [facility] eGFRcr 121.3 mL/min/1.7 3m*2 08/22/2025 6:09 AM EDT [facility] Comment:Reported eGFRcr in m L/min/1.73m2 is based the CKD-EPI 2020 equation that does not use a race coefficient. Blood Venous blood specimen / Unknown Venipuncture / Unknown 08/22/2025 5:02 AM EDT 08/22/2025 5:33 AM EDT us Marvin Santana MD LAB BLOOD ORDERABLES Fin al Result [facility] [address] [place] [address] * (ABNORMAL) CBC W/O Differential (08/22/2025 5:02 AM EDT) WBC Count 11.20(H) 3.70 - 10.30 10*3/uL LAB HEMATOLOGY METHOD 08/22/2025 5:44 AM EDT [facility] RBC Count 3.19(L) 4.60 - 6.10 10*6/uL LAB HEMATOLOGY METHOD 08/22/2025 5:44 AM EDT [facility] HGB 9.8(L) 13.7 - 17.5 g/dL LAB HEMATOLOGY METHOD 08/22/2025 5:44 AM EDT [facility] HCT 29.6(L) 40.0 - 51.0 % LAB HEMATOLOGY METHOD 08/22/2025 5:44 AM EDT [facility] Platelet Count 271 155 - 369 10*3/uL LAB HEMATOLOGY METHOD 08/22/2025 5:44 AM EDT [facility] MCV 93 79 - 98 fL LAB HEMATOLOGY METHOD 08/22/2025 5:44 AM EDT [facility] MCH 30.7 26.0 - 32.0 pg LAB HEMATOLOGY METHOD 08/22/2025 5:44 AM EDT [facility] MCHC 33.1 30.7 - 35.5 g/dL LAB HEMATOLOGY METHOD 08/22/2025 5:44 AM EDT [facility] RDW 12.6 11.5 - 14.5 % LAB HEMATOLOGY METHOD 08/22/2025 5:44 AM EDT [facility] MPV 9.5 8.8 - 12.5 fL LAB HEMATOLOGY METHOD 08/22/2025 5:44 AM EDT [facility] nRBC 0.0 <=0.0 per 100 WBCs LAB HEMATOLOGY METHOD 08/22/2025 5:44 AM EDT [facility] Blood Venous blood specimen / Unknown Venipuncture / Unknown 08/22/2025 5:02 AM EDT 08/22/2025 5:32 AM EDT us Marvin Santana MD LAB BLOOD ORDERABLES Fin al Result [facility] [address] [place] [address] * (ABNORMAL) CBC W/O Differential (08/20/2025 5:56 AM EDT) WBC Count 16.03(H) 3.70 - 10.30 10*3/uL LAB HEMATOLOGY METHOD 08/20/2025 6:17 AM EDT [facility] RBC Count 3.46(L) 4.60 - 6.10 10*6/uL LAB HEMATOLOGY METHOD 08/20/2025 6:17 AM EDT [facility] HGB 10.8(L) 13.7 - 17.5 g/dL LAB HEMATOLOGY METHOD 08/20/2025 6:17 AM EDT [facility] HCT 31.2(L) 40.0 - 51.0 % LAB HEMATOLOGY METHOD 08/20/2025 6:17 AM EDT [facility] Platelet Count 290 155 - 369 10*3/uL LAB HEMATOLOGY METHOD 08/20/2025 6:17 AM EDT [facility] MCV 90 79 - 98 fL LAB HEMATOLOGY METHOD 08/20/2025 6:17 AM EDT [facility] MCH 31.2 26.0 - 32.0 pg LAB HEMATOLOGY METHOD 08/20/2025 6:17 AM EDT [facility] MCHC 34.6 30.7 - 35.5 g/dL LAB HEMATOLOGY METHOD 08/20/2025 6:17 AM EDT [facility] RDW 12.6 11.5 - 14.5 % LAB HEMATOLOGY METHOD 08/20/2025 6:17 AM EDT [facility] MPV 9.7 8.8 - 12.5 fL LAB HEMATOLOGY METHOD 08/20/2025 6:17 AM EDT [facility] nRBC 0.0 <=0.0 per 100 WBCs LAB HEMATOLOGY METHOD 08/20/2025 6:17 AM EDT [facility] Blood Venous blood specimen / Unknown Venipuncture / Unknown 08/20/2025 5:56 AM EDT 08/20/2025 6:09 AM EDT us Marvin Santana MD LAB BLOOD ORDERABLES Fin al Result [facility] [address] [place] [address] * (ABNORMAL) Basic Metabolic Panel, Plasma (08/20/2025 5:56 AM EDT) Glucose, Plasma 140(H) 74 - 99 mg/dL 08/20/2025 6:39 AM EDT [facility] BUN, Plasma 16 7 - 21 mg/dL 08/20/2025 6:39 AM EDT [facility] Creatinine, Plasma 0.64(L) 0.70 - 1.20 mg/dL 08/20/2025 6:39 AM EDT [facility] BUN/Creatinine Ratio 25 08/20/2025 6:39 AM EDT [facility] Sodium, Plasma 136 136 - 145 mmol/L 08/20/2025 6:39 AM EDT [facility] Potassium, Plasma 5.2(H) 3.6 - 4.9 mmol/L 08/20/2025 6:39 AM EDT [facility] Comment:Hemolyzed, result ma y be falsely increased. Chloride, Plasma 101 97 - 107 mmol/L 08/20/2025 6:39 AM EDT [facility] CO2, Plasma 23 22 - 29 mmol/L 08/20/2025 6:39 AM EDT [facility] Anion Gap 12 6 - 16 mmol/L 08/20/2025 6:39 AM EDT [facility] Total Calcium, Plasma 8.6(L) 8.9 - 10.2 mg/dL 08/20/2025 6:39 AM EDT [facility] eGFRcr 113.9 mL/min/1.7 3m*2 08/20/2025 6:39 AM EDT [facility] Comment:Reported eGFRcr in m L/min/1.73m2 is based the CKD-EPI 2020 equation that does not use a race coefficient. Blood Venous blood specimen / Unknown Venipuncture / Unknown 08/20/2025 5:56 AM EDT 08/20/2025 6:08 AM EDT Marvin Santana MD LAB BLOOD ORDERABLES Fin al Result Performing Organization Address City/[facility] Co de Phone Number [facility] [address] [place] [address] * (ABNORMAL) Magnesium, Plasma (08/20/2025 5:56 AM EDT) Magnesium, Plasma 1.8(L) 1.9 - 2.4 mg/dL 08/20/2025 6:39 AM EDT [facility] Blood Venous blood specimen / Unknown Venipuncture / Unknown 08/20/2025 5:56 AM EDT 08/20/2025 6:08 AM EDT Marvin Santana MD LAB BLOOD ORDERABLES Fin al Result Performing Organization Address [facility] [place] [address] * Phosphorus, Plasma (08/20/2025 5:56 AM EDT) Phosphorus, Plasma 3.2 2.5 - 4.5 mg/dL 08/20/2025 6:39 AM EDT [facility] Blood Venous blood specimen / Unknown Venipuncture / Unknown 08/20/2025 5:56 AM EDT 08/20/2025 6:08 AM EDT Marvin Santana MD LAB BLOOD ORDERABLES Fin al Result Performing Organization Address City/[facility] Co de Phone Number [address] [address] * XR Abdomen 1 View (08/19/2025 8:37 [...] of the abdomen. COMPARISON: None. FINDINGS: Limited [id number] abdominal radiograph for the purpose of locating tube position. The tip of the feeding tube is within the proximal stomach. Procedure Note Patricio Trevino MD - 08/19/2025 CLINICAL INDICATION: DHT placement TECHNIQUE: Supine radiograph of the abdomen. COMPARISON: None. FINDINGS: Limited [id number] abdominal radiograph for the purpose of locatingtube position. The tip of the feeding tube is within the proximal stomach. IMPRESSION: The tip of the feeding tube is within the proximal stomach CRITICAL RESULT: No. COMMUNICATION: Per this written report. Drafted by Patricio Trevino MD on 08/19/2025 8:53 PM Final report signed by Patricio Trevino MD on 08/19/2025 8:53 PM Alvaro Adrian DMD, MD IMG XR PROCEDURES Final Result * Multi Drug Resistance Test (08/19/2025 8:19 PM EDT) Culture No growth at day 1 08/21/2025 7:33 AM EDT [facility] Swab (Nares and Nini Rectal) Non-blood Collection / Unknown 08/19/2025 8:19 PM EDT 08/19/2025 8:30 PM EDT Narrative [facility] - 08/21/2025 7:33 AM EDT This test was developed and its performance characteristics determined by the [facility]. Although the media is FDA-approved, it is not FDA-approved for all specimen types submitted. The FDA has determined that such clearance or approval is not necessary. This test is used for surveillance purposes. It should not be regarded as investigational or for research. The [facility] is certified under the Clinical Laboratory Improvement Amendments of 1988 (CLIA-88) as qualified to perform high complexity clinical laboratory testing. Marvin Santana MD LAB MICROBIOLOGY - GENER AL ORDERABLES Final Result Performing Organization Address [facility] de Phone Number [facility] [address] [place] [address] * Cecelia auris Surveillance by PCR (08/19/2025 8:19 PM EDT) Cecelia auris PCR Result Not Detected Not Detected 08/21/2025 10:33 AM EDT [facility] Swab (Axilla and Groin) Non-blood Collection / Unknown 08/19/2025 8:19 PM EDT 08/19/2025 8:30 PM EDT Narrative [facility] - 08/21/2025 10:33 AM EDT This PCR assay was developed and its performance characteristics determined by [facility] as appropriate for clinical purposes. This assay has not been cleared or approved by the FDA, but is performed in a CLIA regulated laboratory that is qualified to perform high-complexity testing. Marvin Santana MD LAB MICROBIOLOGY - GENER AL ORDERABLES Final Result Performing Organization Address [facility] de Phone Number [facility] [address] [place] [address] * (ABNORMAL) Blood gas, arterial (08/19/2025 12:23 PM EDT) pH, Arterial 7.38 7.35 - 7.45 LAB HEMATOLOGY METHOD 08/19/2025 12:40 PM EDT [facility] pCO2, Arterial 42 32 - 45 mmHg LAB HEMATOLOGY METHOD 08/19/2025 12:40 PM EDT [facility] pO2, Arterial 107 83 - 108 mmHg LAB HEMATOLOGY METHOD 08/19/2025 12:40 PM EDT [facility] SO2, Measured, Arterial 99(H) 94 - 98 % LAB HEMATOLOGY METHOD 08/19/2025 12:40 PM EDT [facility] Base Excess, Arterial -0.8 -2.0 - 3.0 mmol/L LAB HEMATOLOGY METHOD 08/19/2025 12:40 PM EDT [facility] Bicarbonate, Calculated, Arterial 24 22 - 26 mmol/L LAB HEMATOLOGY METHOD 08/19/2025 12:40 PM EDT [facility] Hematocrit, Whole Blood 38.9(L) 40.0 - 51.0 % LAB HEMATOLOGY METHOD 08/19/2025 12:40 PM EDT [facility] Sodium, Whole Blood 138 136 - 145 mmol/L LAB HEMATOLOGY METHOD 08/19/2025 12:40 PM EDT [facility] Potassium, Whole Blood 3.7 3.6 - 4.9 mmol/L LAB HEMATOLOGY METHOD 08/19/2025 12:40 PM EDT [facility] Chloride, Whole Blood 105 97 - 107 mmol/L LAB HEMATOLOGY METHOD 08/19/2025 12:40 PM EDT [facility] Glucose, Whole Blood 146(H) 74 - 99 mg/dL LAB HEMATOLOGY METHOD 08/19/2025 12:40 PM EDT [facility] Ionized Calcium, Whole Blood 4.5(L) 4.6 - 5.1 mg/dL LAB HEMATOLOGY METHOD 08/19/2025 12:40 PM EDT [facility] Lactate, Arterial, Whole Blood 1.0 0.5 - 1.6 mmol/L LAB HEMATOLOGY METHOD 08/19/2025 12:40 PM EDT [facility] Blood Arterial blood specimen / Unknown 08/19/2025 12:23 PM EDT 08/19/2025 12:33 PM EDT 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 There is no change in the final diagnosis. Floor of mouth squamous cell carcinoma 08/28/2025 11:21 AM T [facility] Addendum electronically signed by Ellen [...] NEGATIVE FOR CARCINOMA (0/20) 08/28/2025 11:21 AM T [facility] at 1949 EDT Comment:This is an appended [...] tumor in part L. 08/28/2025 11:21 AM [facility] Comment:This is an appended report. These results [...] pN Category: pN1 08/28/2025 11:21 AM EDT [facility] Clinical Information No Dx Found. 08/28/2025 11:21 AM EDT [facility] Comment:This is an appended report. [...] TUMOR IDENTIFIED. NO 08/28/2025 11:21 AM EDT [facility] Comment:Corrected result: Pr eviously reported [...] a robin-white, papillary, irregularly-shap ed 2.4 cm (anterior-deckhand clam dredge ior) by 1.9 (superior-inferi or) lesion that appears to abut the posterior and inferior margins. Gross photographs both pre ink and inked are provided. Ink code: Blue-anterior Red-superior Green-inferior Black-posterior [place]-medial Uninked (with lesion)-lateral Specimen is serially sectioned [...] placed in formalin labeled l eft level 1A and consists of a [...] of left brandyn mandibulectomy measuring 10.0 cm (anterior-deckhand clam dredge ior) x 4.6 cm (left-right) x 3.5 cm (superior-inferi or) with an attached ramus measuring 6.2 cm (superior-inferi or) x 0.6 cm (left-right) x 1.3 cm (anterior-deckhand clam dredge ior). The specimen is oriented by a short-short stitch on the lateral soft tissue, a long-short stitch on the anterior soft tissue and a long-long stitch on the medial soft tissue. The attached medial soft tissue measures 3.4 (left-right) by 8.4 (anterior-deckhand clam dredge ior) by 2.0 (superior-inferi or), and is [...] and the gingiva there is a 3.4 (anterior-deckhand clam dredge ior by 1.8 (superior-inferi or by 0.8 [...] no other interosseous lesions are grossly noted [employer] Developer sections are submitted as follows: L1: Anterior mucosal and soft tissue margin L2: Lateral mucosal and soft tissue margin L3: Medial mucosal and soft tissue margin L4: Posterior mucosal and soft tissue margin L5: Inferior soft tissue margin L6: Mass 2 L7-L9: Mass 1, deepest bone invasion in L9 L10: Mandibular interosseous lesion L11: Softened bone adjacent to lesion L12: Java [employer] Developer sample of lesion Cold Time: 0 Marvel [...] Marvel Herrera MD 08/28/2025 11:21 AM EDT [facility] Comment:This is an appended report. These results have been appended to a previously preliminary verified report. Note: A resident was involved in the service. I attest I examined the relevant preparations for the specimens and confirmed the diagnosis or interpretation. 08/28/2025 11:21 AM EDT [facility] Comment:This is an appended report. [...] 1:19 PM EDT 08/19/2025 2:41 PM EDT us Alvaro Adrian DMD, MD LAB PATHOLOGY ORDERABLE S Edited Result - Final [facility] [address] [place] [address] * Surgical Pathology Exam (08/19/2025 9:17 AM EDT) Case Report Surgical Pathology Case: [id number] Authorizing Provider: Marvin Santana MD Collected: 08/19/2025 0917 Ordering Location: [facility]PERATING [facility] Received: 08/19/2025 4311 Pathologist: Timothy Chacon MD Intraop: Nabila Hendrickson [...] fresh for permanent 08/28/2025 11:21 AM EDT [facility] Addendum This addendum is to document the provided clinical history. There is no change in the final diagnosis. Floor of mouth squamous cell carcinoma 08/28/2025 11:21 AM EDT [facility] Addendum electronically signed by Ellen [...] FOR CARCINOMA (0/20) 08/28/2025 11:21 AM EDT [facility] at 1949 EDT Comment:This is an appended [...] in part L. 08/28/2025 11:21 AM T [facility] Comment:This is an appended report. These results have been appended to a previously preliminary verified report. Synoptic Checklist ORAL CAVITY ORAL CAVITY - All Specimens Edition - Protocol posted: 05/04/2023 SPECIMEN Procedure: [...] ORAL CAVITY ORAL CAVITY - All Specimens Edition - Protocol posted: 05/04/2023 SPECIMEN Procedure: [...] pN Category: pN1 08/28/2025 11:21 AM EDT [facility] Clinical Information No Dx Found. 08/28/2025 11:21 AM EDT [facility] Comment:This is an appended report. [...] TUMOR IDENTIFIED. NO 08/28/2025 11:21 AM EDT [facility] Comment:Corrected result: Pr eviously reported [...] a robin-white, papillary, irregularly-shap ed 2.4 cm (anterior-deckhand clam dredge ior) by 1.9 (superior-inferi or) lesion that appears to abut the posterior and inferior margins. Gross photographs both pre ink and inked are provided. Ink code: Blue-anterior Red-superior Green-inferior Black-posterior [place]-medial Uninked (with lesion)-lateral Specimen is serially sectioned [...] placed in formalin labeled l eft level 1A and consists of a [...] of left brandyn mandibulectomy measuring 10.0 cm (anterior-deckhand clam dredge ior) x 4.6 cm (left-right) x 3.5 cm (superior-inferi or) with an attached ramus measuring 6.2 cm (superior-inferi or) x 0.6 cm (left-right) x 1.3 cm (anterior-deckhand clam dredge ior). The specimen is oriented by a short-short stitch on the lateral soft tissue, a long-short stitch on the anterior soft tissue and a long-long stitch on the medial soft tissue. The attached medial soft tissue measures 3.4 (left-right) by 8.4 (anterior-deckhand clam dredge ior) by 2.0 (superior-inferi or), and is [...] and the gingiva there is a 3.4 (anterior-deckhand clam dredge ior by 1.8 (superior-inferi or by 0.8 [...] no other interosseous lesions are grossly noted [employer] Developer sections are submitted as follows: L1: Anterior mucosal and soft tissue margin L2: Lateral mucosal and soft tissue margin L3: Medial mucosal and soft tissue margin L4: Posterior mucosal and soft tissue margin L5: Inferior soft tissue margin L6: Mass 2 L7-L9: Mass 1, deepest bone invasion in L9 L10: Mandibular interosseous lesion L11: Softened bone adjacent to lesion L12: [employer] Developer sample of lesion Cold Time: 0 Marvel [...] Marvel Herrera MD 08/28/2025 11:21 AM EDT [facility] Comment:This is an appended report. These results have been appended to a previously preliminary verified report. Note: A resident was involved in the service. I attest I examined the relevant preparations for the specimens and confirmed the diagnosis or interpretation. 08/28/2025 11:21 AM EDT [facility] Comment:This is an appended report. [...] 1:57 PM EDT 08/19/2025 2:41 PM EDT Marvin Santana MD LAB PATHOLOGY ORDERABLES Edited Result - Final [facility] [address] [place] [address] * (ABNORMAL) Blood gas, arterial (08/19/2025 9:07 AM EDT) pH, Arterial 7.38 7.35 - 7.45 LAB HEMATOLOGY METHOD 08/19/2025 9:16 AM EDT [facility] pCO2, Arterial 44 32 - 45 mmHg LAB HEMATOLOGY METHOD 08/19/2025 9:16 AM EDT [facility] pO2, Arterial 195(H) 83 - 108 mmHg LAB HEMATOLOGY METHOD 08/19/2025 9:16 AM EDT [facility] SO2, Measured, Arterial 100(H) 94 - 98 % LAB HEMATOLOGY METHOD 08/19/2025 9:16 AM EDT [facility] Base Excess, Arterial 0.7 -2.0 - 3.0 mmol/L LAB HEMATOLOGY METHOD 08/19/2025 9:16 AM EDT [facility] Bicarbonate, Calculated, Arterial 26 22 - 26 mmol/L LAB HEMATOLOGY METHOD 08/19/2025 9:16 AM EDT [facility] Hematocrit, Whole Blood 36.2(L) 40.0 - 51.0 % LAB HEMATOLOGY METHOD 08/19/2025 9:16 AM EDT [facility] Sodium, Whole Blood 141 136 - 145 mmol/L LAB HEMATOLOGY METHOD 08/19/2025 9:16 AM EDT [facility] Potassium, Whole Blood 3.7 3.6 - 4.9 mmol/L LAB HEMATOLOGY METHOD 08/19/2025 9:16 AM EDT [facility] Chloride, Whole Blood 107 97 - 107 mmol/L LAB HEMATOLOGY METHOD 08/19/2025 9:16 AM EDT [facility] Glucose, Whole Blood 99 74 - 99 mg/dL LAB HEMATOLOGY METHOD 08/19/2025 9:16 AM EDT [facility] Ionized Calcium, Whole Blood 4.7 4.6 - 5.1 mg/dL LAB HEMATOLOGY METHOD 08/19/2025 9:16 AM EDT [facility] Lactate, Arterial, Whole Blood 1.1 0.5 - 1.6 mmol/L LAB HEMATOLOGY METHOD 08/19/2025 9:16 AM EDT [facility] Blood Arterial blood specimen / Unknown Arterial Puncture / Unknown 08/19/2025 9:07 AM EDT 08/19/2025 9:14 AM EDT us Kenneth Benavides CRNA LAB BLOOD ORDERABLES Final Result Performing Organization Address City/[facility]/ZIP Co de Phone Number [facility] [address] [place] [address] * Type and Screen (08/19/2025 7:05 AM EDT) ABO/Rh A Negative 08/19/2025 7:30 AM EDT BLOOD [facility] Antibody Screen Negative 08/19/2025 7:30 AM EDT [facility] Specimen Expiration 08/22/2025 23:59 08/19/2025 7:30 AM EDT [facility]LO[facility] Blood Venous blood specimen / Unknown Venipuncture / Unknown 08/19/2025 7:05 AM EDT 08/19/2025 7:30 AM EDT Alvaro Adrian DMD, MD LAB BLOOD BANK TEST ORD ERABLES Final Result Performing Organization Address [facility] de Phone Number BLOOD BANK [address] documented in this encounter Visit Diagnoses Diagnosis [...] daily, First dose (after last modification) on 08/19/25 at 2100, Until Discontinued, Routine, Recovery(Phase II-Outpatient)/On [...] Every 8 hours scheduled, First dose on 08/20/25 at 1100, Until Discontinued, Routine Given 08/30/2025 [...] 0.5 mg, Intravenous, Once, 1 dose, On 08/21/25 at 1415, Routine Given 08/21/2025 3:27 PM [...] EDT 50 mcg lidocaine-EPINEPHrine (Xylocaine W/EPI) 1 %-1:629391 injection 10 mL 10 mL, Infiltration, Once, 1 dose, On Jackie 08/29/25 at 0645, Routine Given 08/29/2025 11:26 AM EDT 10 mL magnesium hydroxide (Milk of Magnesia) 400 MG/5ML suspension 30 mL 30 mL, Nasogastric, Once, 1 dose, On 08/24/25 at 2000, Routine Given 08/24/2025 8:26 PM EDT 30 mL magnesium hydroxide (Milk of Magnesia) 400 MG/5ML suspension 30 mL 30 mL, Oral, Daily PRN, Starting on 08/25/25 at 1438, Until Tue08/30/25 at 1753, Routine, constipation Given 08/25/2025 3:52 PM EDT 30 mL magnesium sulfate IVPB 2 g 2 g, Intravenous, Once, 1 dose, On Tu08/20/25 at 1030, Routine New Bag 08/20/2025 9:53 AM EDT 2 g 25 mL/hr melatonin tablet 6 mg 6 mg, Nasogastric, Nightly, First dose on 08/24/25 at 2100, Until Discontinued, Routine Given 08/29/2025 [...] times daily, 10 doses, First dose on Tue08/19/25 at 2130, Last dose on 08/24/25 at 0900, Routine Given 08/24/2025 8:33 AM EDT 1 Application Given 08/23/2025 8:26 PM EDT 1 Application Given 08/23/2025 8:05 AM EDT 1 Application ondansetron (Zofran) 4 MG/5ML solution 4 mg 4 mg, Nasogastric, Every 6 hours PRN, Starting on 08/25/25 at 0637, Until Tue08/30/25 at 1753, Routine, Recovery(Phase II-Outpatient)/On Unit(Inpatient), nausea, vomiting ondansetron (Zofran) injection 4 mg 4 mg, Intravenous, Every 6 hours PRN, Starting on 08/25/25 at 0637, Until Tue08/30/25 at 1753, Routine, Recovery(Phase II-Outpatient)/On Unit(Inpatient), vomiting, nausea oxyCODONE (Roxicodone) immediate release tablet 10 mg 10 mg, Oral, Every 4 hours PRN, Starting on 08/21/25 at 1321, Until Jackie 08/22/25 at 0716, [...] 1 tablet, Nasogastric, Nightly, First dose on Tue08/22/25 at 2100, Until Discontinued, Routine Given 08/22/2025 [...] CARE CENTER Un[place] - Provider: Automatic Transfer Provider)2048 (Given [...] 0902 (Given - Provider: Marily Owens RN)1550 ([facility] Hold - Provider: Automatic Transfer Provider - Reason: Patient in procedure)1922 ([facility] Un[place] - Provider: Automatic Transfer Provider) 0919 [...] CENTER [place] - Provider: Automatic Transfer Provider) 0919 (Given - Provider: Kris Douglas RN) 0820 (Given - Provider: Kris Douglas RN) bacitracin (425g jar) ointment 1 Jar (CANCELED) 1 Jar, Topical, Daily, First dose on Tue08/19/25 at 1900, Until Discontinued, Routine 0900 (Given - Provider: Marily Owens RN)1550 ([facility] Hold - Provider: Automatic Transfer Provider - Reason: Patient in procedure)1922 ([facility] Un[place] - Provider: Automatic Transfer Provider) 0924 (Given - Provider: Kris Douglas RN) clindamycin (Cleocin) IV solution 900 mg (COMPLETED) [...] Transfer Provider - Reason: Patient in procedure)1923 ([facility] Un[place] - Provider: Automatic Transfer Provider) 0919 (Given - Provider: Kris Douglas RN) 0820 (Given - Provider: Kris Douglas RN) gabapentin (Neurontin) capsule 300 mg 300 mg, Nasogastric, 3 times daily, First dose (after last modification) on Jackie 08/22/25 at 0900, Until Discontinued, Routine, Recovery(Phase II-Outpatient)/On Unit(Inpatient) 0859 (Given - Provider: Marily Owens RN)1550 ([facility] Hold - Provider: Automatic Transfer Provider - Reason: Patient in procedure)1600 (Dose Auto Held - Provider: Automatic Transfer Provider)1923 ([facility] Un[place] - Provider: Automatic Transfer Provider)2048 (Given - Provider: Carly Perez) 0919 (Given - Provider: Kris Douglas RN)1616 (Given - Provider: Kris Douglas RN)2000 (Given [...] Carly Perez)1400 (Given - Provider: Kris Douglas, RENATO)2155 (Given - Provider: Carly Perez) 0515 (Given [...] CARE CENTER [place] - Provider: Automatic Transfer Provider)204 (Given - Provider: Carly Perez) 0919 (Given [...] CENTER [place] - Provider: Automatic Transfer Provider) 0505 (Given - Provider: Carly Perez) 0515 (Given - Provider: Carly Perez) lidocaine-EPINEPHrine (Xylocaine W/EPI) 1 %-1:616851 injection 10 mL (COMPLETED) 10 mL, Infiltration, Once, 1 dose, On Jacike 08/29/25 at 0645, Routine 1126 (Given - [...] Discontinued, Routine 0859 (Given - Provider: Marily Owens RN)1550 [...] II-Outpatient)/On Unit(Inpatient) 0858 (Given - Provider: Marily Owens RN)155 ([facility] Hold - Provider: Automatic Transfer Provider - Reason: Patient in procedure)1922 ([facility] [place] - Provider: Automatic Transfer Provider)2047 (Given - Provider: Carly Perez) 0921 (Not Given - Provider: Kris Douglas RN - Reason: Patient/family refused)1999 (Given - Provider: Carly Perez) 0948 (Given - Provider: Kris Douglas RN) senna (Senokot) tablet 8.6 mg 8.6 mg, Nasogastric, 2 times daily, First dose on Tue08/23/25 at 0900, Until Discontinued, Routine 0858 (Given - Provider: Marily Owens RN)1550 ([facility] Hold - Provider: Automatic Transfer Provider - Reason: Patient in procedure)1922 ([facility] Un[place] - Provider: Automatic Transfer Provider)2047 (Given - Provider: Carly Perez) 09 (Given - Provider: Kris Douglas RN)1999 (Given - Provider: Carly Perez) 0949 (Given - Provider: Kris Douglas RN) sodium chloride 3 % nebulizer solution 3 mL 3 mL, Nebulization, 2 times daily, First dose (after last modification) on Tue08/26/25 at 0900, Until Discontinued, Routine 0850 (Given - Provider: Devante Black)1550 ([facility] Hold - Provider: Automatic Transfer Provider - Reason: Patient in procedure)1922 ([facility] Un[place] - Provider: Automatic Transfer Provider)2027 (Given - Provider: Dex Perez) 0756 (Given - Provider: Gigi Killian)2144 (Given - Provider: Marvel Mcrae) 0825 (Given [...] Transfer Provider) bupivacaine-EPINEPHrine PF (Marcaine w/EPI) 0.25% -1:161671 injection (CANCELED) As needed, Starting on Tue08/28/25 [...] >/= 4 1747 (Given - Provider: Sergio Melo RN)175 (Given - Provider: Sergio Melo RN) [...] Nasogastric, Every 6 hours PRN, Starting on 08/25/25 at 0637, Until Tue08/30/25 at 1753, Routine, Recovery(Phase II-Outpatient)/On Unit(Inpatient), nausea, vomiting 1550 ([facility] Hold - Provider: Automatic Transfer Provider - Reason: Patient in procedure)192 ([facility] Un[place] - Provider: Automatic Transfer Provider) ondansetron (Zofran) injection 4 mg(Linked Group 2) 4 mg, Intravenous, Every 6 hours PRN, Starting on 08/25/25 at 0637, Until Tue08/30/25 at 1753, Routine, [...] CARE CENTER [place] - Provider: Automatic Transfer Provider)2048 (Given - Provider: Carly Perez) 0230 (Given [...] (See Alternative - Provider: James Juan RN)1550 ([facility] Hold - Provider: Automatic Transfer Provider - Reason: Patient in procedure)1923 ([facility] Un[place] - Provider: Automatic Transfer Provider)2048 (See Alternative - Provider: Carly Perez) 0230 (See Alternative - Provider: Carly Perez)0728 (See Alternative - Provider: Carly Perez)1400 (See Alternative - Provider: Kris Douglas, RENATO)2000 (See Alternative - Provider: Carly Perez) 0252 [...] Intravenous, Every 6 hours PRN, Starting on 08/25/25 at 0637, Until Tue08/30/25 at 1753, Routine, Recovery(Phase II-Outpatient)/On Unit(Inpatient), vomiting, nausea Or ondansetron (Zofran) 4 MG/5ML solution 4 mgJump to med 4 mg, Nasogastric, Every 6 hours PRN, Starting on 08/25/25 at 0637, Until Tue08/30/25 at 1753, Routine, [...] documented as of this encounter Care Teams [employer] Relationship Specialty Start Date End Date Christina Arteaga APRN [address] [place] [id number] PCP - General 06/20/25 Maxwell White DMD [facility] [place] Patsy Cano [address] [place] [address] Referring Physician 06/24/25 documented as of this encounter
--- OUTSIDE RECORDS SUMMARY | 2025-08-19 06:45 | XMS_ITS | Encounter Summary ---
Author Organization [facility] Address [address] 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] Procedures MS BONE-SKIN GRAFT, MICROVASCULAR MS RECMPL WND HEAD,FAC,HAND 2.6-7.5 CM MS REPR,FACE,GENITAL,HAND,FT+5 CMCM/< MS LAYR CLOS WND REST BODY 12.6-20 CM MS RECONSTR MANDIBLE,BONE PLATE MS REMV MALIG JAW BONE RADICAL MS REMOVAL NODES, NECK,CERV CMPLT MS PART REMOVAL TONGUE,<1/2 MS BONE-SKIN GRAFT, MICROVASCULAR MS RECONSTR MANDIBLE,BONE PLATE MS RECMPL WND HEAD,FAC,HAND 2.6-7.5 CM MS REPR,FACE,GENITAL,HAND,FT+5 CMCM/< MS LAYR CLOS WND REST BODY 12.6-20 CM MS TRACHEOSTOMY, PLANNED Left mandibular reconstruction with right [...] DISSECTION, NECK, RADICAL GLOSSECTOMY Marvin Santana MD [address] [address] Phone: tel: fax: [facility] [address] [place] [address] Phone: tel: Referral ID Status Reason Start Date Expiration Date Visits Re quested Visits Authorized [id number] 1 1 Encounter Details Date Type Department Care Team (Late st Contact Info) Description 08/19/2025 7:45 AM EDT - 08/19/2025 11:20 PM EDT Surgery [facility] [address] [place] [id number] Marvin Santana MD [address] [address] Left mandibular reconstruction with right free fibula, complex closure of oral wound, [35335 (CPT ) +4 more] Surgery Details Date/Time Status Location OR Service Patient Class Case Class Case Type Trauma Case? 08/19/2025 7:45 AM Posted DANIE TRAVIS 2OR 17 Plastic Surgery Surgery Admit E-Electiv e Panel 1 Procedure [facility] Anes Op Region Wound Class Comments Left mandibular reconstruction with right free fibula, complex closure of oral wound, Bilateral General Class I/ Clean CPT code: 82082, 10261, 89641, 83572, 91222. Time: 8 hours. Coordinate with Nguyễn Cooley OR Panel 2 Procedure LRB Anes Op Region Wound Class Comments EXCISION, NEOPLASM, MALIGNANT, MANDIBLE N/A General Class I/ Clean DISSECTION, NECK, RADICAL N/A General Class II/ Clean Contaminated GLOSSECTOMY N/A General Class II/ Everardo an Contaminated CREATION, TRACHEOSTOMY N/A Cl ass II/ Clean Contaminated Surgeon Surgeon Role Service Panel Dallin Hargrove MD Resident - Assisting 2 Maxwell Goetz MD Resident - Assisting 2 Maxwell Goetz MD Resident - Assisting 2 Alvaro Adrian DMD, MD Primary Oral Maxillofa cial Surgery 2 Alvaro Adrian DMD, MD Primary Oral Maxillofa cial Surgery 2 Marvin Santana MD Primary Plastic Surgery 1 Marvin Santana MD Primary Plastic Surgery 1 Roma Rolon MD Resident - Assisting 1 Roma Rolon MD Resident - Assisting 1 Special Needs Microinstruments, micrscope available, doppler, handheld ligasure, bovie, bipolar, tournique, tps drill and sawt documented in this encounter Social History Tobacco [...] afraid of your partner or ex-partner? No 08/20/2025 Within the last year, have y ou been humiliated or emotionally abused in other ways by your partner or ex-partner? No Within the last year, have y ou been kicked, hit, slapped, or otherwise physically hurt by your partner or ex-partner? No 08/20/2025 Within the last year, have y ou been raped or forced to have any kind of sexual activity by your partner or ex-partner? No 08/20/2025 AUDIT-C Answer Date Recorded Q1: How often [...] the money to buy more. Never true 08/20/20 25 Within the past 12 months, t he food you bought just didn't last and you didn't have money to get more. Never true 08/20/2025 PRAPARE - Transportation Answer Date Re corded In the past 12 months, has l ack of transportation kept you from medical appointments or from getting medications? No 05/2025 In the past 12 months, has l ack of transportation kept you from meetings, work, or from getting things needed for daily living? No 08/20/2025 Housing Stability Vital Sign Answer Elvin e Recorded In the last 12 months, was t here a time when you were not able to pay the mortgage or rent on time? No 08/20/2025 In the past 12 months, how m any times have you moved where you were living? 0 08/20/2025 At any time in the past 12 m [facility], were you homeless or living in a snf (including now)? No 08/20/2025 [facility] Utilities Answer Date Recorded In the past 12 months has th e [employer], gas, oil, or water company threatened to shut off services in your home? No 08/20/2025 Sex and Gender Information Value Date Recorded Sex Assigned at Not on file Legal Sex Male 8:28 PM EDT Gender Identity Male 06/18/2025 11:51 AM EDT Sexual Orientation Not on file documented as of this encounter Last Filed Vital Signs Vital Sign Reading Time Taken Comments Blood Pressure 111/67 08/19/2025 7:30 PM EDT Pulse 69 08/19/2025 11:00 PM EDT Temperature 38.2 C (100.8 F) 08/19/2025 11:00 PM EDT Respiratory Rate 18 08/19/2025 11:00 PM EDT Oxygen Saturation 94% 08/19/2025 11:00 PM EDT Inhaled Oxygen Concentration - - Weight 87.1 kg (192 lb) 08/19/2025 6:39 AM EDT Height 180.3 cm (5' 11 ) 08/19/2025 6:39 AM EDT Body Mass Index 27.27 08/26/2025 4:13 PM EDT documented in this encounter Functional Status * Calculated C-SSRS Risk Score (Lifetime/Recent) Answer Date of Assessment Author No Risk Indicated 08/19/2025 6:50 AM EDT Betsy Mayberry RN * Question Answer Date of Assessment Author 1. Wish to be (Past 1 Month) No 025 6:50 AM EDT Betsy Mayberry RN 2. Non-Specific Active Suici violet Thoughts (Past 1 Month) No 08/19/2025 6:50 AM EDT Ki Mayberry RN 6. Suicidal Behavior (Lifetime) No 6:50 AM EDT Betsy Mayberry RN documented as of this encounter Discharge Instructions * Discharge Instructions* Rusty Melendrez, DDS - 08/29/2025 6:50 AM EDT [facility] Oral & Maxillofacial Surgery Cancer Surgery Discharge [...] on 09/06/[address] Adrian. Address/Phone Number: [facility] [address] [place] [address] Thank you for the opportunity [...] Substitutions Allowed? No 1 each 5 09/17/20 metoprolol tartrate (Lopressor) 25 MG tablet Take 1 tablet by mouth 2 times a day. 60 tablet 5 09/02/20 documented as of this encounter Miscellaneous Notes * Progress Notes - Cynthia Sands RN - 08/30/2025 2:59 PM EDT Case Management Discharge Note Carlito Perez 54 y.o. male CSN: [id number] Admission: 08/19/2025 5:29 AM Primary Problem: Floor of mouth squamous cell carcinoma Primary Meat Loiner: Primary Caregiver: Self Assistance Available at Discharge: Availability of Care Givers (#Hours): 24 hours Family/Meat Loiner(s) Willingness Assessed to care for patient at home: Yes Family/Meat Loiner(s) Readiness Assessed to care for patient at home: Yes Housing Circumstances-Z Codes: Housing Circumstances (select all that apply): None Applicable Patient Referred to Financial or Community Resources: Discharge Facility/Level of Care Needs: Discharge Facility/Level of Care Needs: [facility] Patient's Choice of Community Agency(s): Patient/Family Anticipated Services at Transition: Patient/Family Anticipated Services at Transition: onsite case manager DME/Equipment Needed after Discharge: Equipment Currently Used at Home: none Equipment Needed After Discharge: colostomy/ostomy supplies, walker, rolling, other (see comments) (wound vac) Readmission Within the Last 30 Days: Readmission Within the Last 30 Days: no previous admission in last 30 days Medicare Documentation: Follow-up: Alvaro Adrian DMD, MD [address] [facility] [address] Wound [id number]-[id number] Follow up [facility] Address: [address] [place] [address] Follow up [facility]. [facility] Follow up [facility] Address: [address] [place], [address] Follow up Rolling walker, please keep equipment [...] Medically readyto discharge today. Accepted by above [facility]. They will call patient to arrange a home visit. Acceptedby above infusion pharmacy. They will deliver bedside and bedside nurse will provide a teaching session with patient/family. Patient agrees to dc home today and agrees with above DC plan. In??s Michelle. MARIANELA Sands, casino duty manager * Discharge Summary - Rusty Melendrez, DDS - 08/30/2025 12:45 PM EDT Images from the original note were not included. Hospitalization Admit Date/Time: 08/19/2025 5:29 AM Admitting Attending: Marvin Santana Discharge Date: 08/30/25 Discharge Attending Physician: Alvaro Adrian DMD PCP name and Address: Christina Arteaga APRN [address] [facility] [address] Referring provider name and address: Alvaro Adrian DMD, MD [address] [facility] [address] [place] [address] Chief Concern, Brief History of Present Illness, and Hospital Course Carlito ePrez is a 54 y.o. male who presented [...] mouth 3 times a day. isosource 1.5 Osny/mL liquid 7 Cans by Nasogastric route 5 [...] Your Medications These medications were sent to [facility] [place], [place] - [address] [facility] [address] [facility] [address] acetaminophen 500 MG tablet aspirin 325 MG [...] cell carcinoma Squamous cell carcinoma of mandible [facility] Oral & Maxillofacial Surgery Cancer Surgery Discharge [...] harvest site- leave covered with Kerlix and Va dressing in place until follow up Right [...] on 09/06/[address] Adrian. Address/Phone Number: [facility] [address] [place] [address] Thank you for the opportunity to allow us to participate in your care. Please do not hesitate to contact our office if you have any questions or concerns. Outpatient Follow-Up Future Appointments Date Time Provider Department [place] 09/03/2025 8:15 AM Marvin Santana MD [facility] 09/06/2025 1:00 PM Alvaro Adrian DMD, MD [facility] Pertinent Physical Exam At Time of Discharge [...] this discharge. Rusty Melendrez DDS [facility] OMFS, PGY-1 Cosigned by Alvaro Adrian DMD, [...] RN Progress: improving Taken 08/24/20252003 by Shania Peerz Outcome Evaluation: patient awake alert and oriented [...] Intervention: Prevent or Manage Infection Flowsheets Taken 08/29/20251999 by Carly Perez Isolation Precautions: precautions maintained [...] reach Intervention: Promote Injury-Free Environment Flowsheets (Taken 08/29/2025 2000) Safety Promotion/Fall Prevention: activity supervised assistive [...] Note Carlito Perez 54 y.o. male CSN: [id number] Admission: 08/19/2025 5:29 AM Primary Problem: Floor of mouth squamous cell carcinoma Anticipated Discharge Date: 08/29/25 Has Discharge Plans Changed? Medicare Second Notice: Housing Circumstances: Housing Circumstances Action Taken: Medically Ready for Discharge: Additional Comments TF has been approved, Geraldien will deliver this afternnon at bedside. Kellie [...] Note Carlito Perez 54 y.o. male CSN: [id number] Room/Bed 128/128A Nutrition evaluation type: follow-up Reason [...] WNL) O2 Delivery Method: Humidified trach collar [place] Coma Scale Score: 15 Dex Scale Score: 19 Virgilio/Cubbin Pressure Risk Score: 41 Most Recent BM Date: 08/29/25 GI Symptoms: None Skin: wound vac, right pretibial surgical wound, mid neck surgical wound, mouth surgical wound, right upper leg surgical graft Allergies: Fish, Shellfish Medications: Current Scheduled Medications[4] Current Continuous Medications[5] Current PRN Medications[6] Labs: Results from last 7 days Lab Units 08/29/2523608/28/254 08/27/25 0344 WBC 10*3/uL 11.08* 10.56* 10.56* HEMOGLOBIN g/dL 9.6* 9.5* 9.3* HEMATOCRIT % 29.0* 28.8* 28.1* PLATELETS 10*3/uL 547* 552* 483* Results from last 7 days Lab Units 08/29/257 08/28/254 08/27/25 0344 SODIUM mmol/L 138 136 135* [...] for accuracy Estimated Needs: Kcal: 30-35 kcal/kg (3970-6580 kcal/d) Protein: 1.5-1.8 g/kg (131-157 g/d) Based [...] shellfish, penicillan CAD (coronary artery disease) Cancer ([facility]) [id number] Coronary artery calcification Dental disease chipped teeth, jony block for vocal chord damage Fractures clavical surgery GERD (gastroesophageal reflux disease) 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 HLD (hyperlipidemia) HTN (hypertension) Hypothyroidism Reflux gastritis Substance abuse 1988 [2] Past Surgical History: Procedure Laterality Date APPENDECTOMY 1979 CARDIOTHORACIC PROCEDURE stents CAROTID STENT 04/26/2023 COLONOSCOPY 2023 CORONARY STENT PLACEMENT [id number] ORTHOPEDIC SURGERY repair to clavical OTHER SURGICAL [...] health OT, Home health PT Equipment Recommended: Tk walker Subjective Patient agreeable to OT session. Participants in Care Family/Caregiver Present: Yes Family/Caregiver: (Adult Sister) Director Of Transportation: Not Applicable Presentation Oxygen Therapy: Supplemental oxygen [...] Mobility Bed Mobility Exam: Scooting/Bridging Level of [place]: Stand-by assist (anteriorly to EOB) Physical/Nonphysical Assist: Set-up required, Supervision, Verbal Cues Bed Mobility Exam: Supine to Sit Level of [place]: Stand-by assist (to the left) Physical/Nonphysical Assist: Set-up required, Supervision, Verbal Cues, Minimal cues, HOB elevated Transfers Transfer Exam: Sit to stand Level of [place]: Stand-by assist Physical/Nonphysical Assist: Set-up required, Supervision, Verbal Cues, Minimal cues Assistive Device: Walker, rolling Transfer Exam: Stand to Sit Level of [place]: Stand-by assist Physical/Nonphysical Assist: Supervision, Verbal Cues, [...] handout/printout provided for visual reference. Access Code: [email or web address] URL: [email or web address] Date: 08/29/2025 Exercises - Seated Elbow Flexion [...] Equipment for Bathing & Showering Standardized Assessments [facility] 6-Click Daily Activities Help from Other: Don/Doff Regular Lower Body Clothings: A lot Help From Other: Bathing: Little Help From Other: Toileting: None Help From Other: Don/Doff Upper Body Clothings: None Help From Other: Grooming: None Help From Other: Eating Meals: Little (DHT) [facility] 6 Click - Daily Activities Score: 20/24 [facility] Scoring Interpretation: Scores greater than 20.5 [...] admission Level of Mobility Ambulatory- community Mobility [place] Independent gait without device History of Falls [...] unaware when pt may be discharged from [facility]. Director Of Transportation (if applicable) Not Applicable OBJECTIVE & INTERVENTIONS [...] Treatment Minutes 20 BED MOBILITY Level of [place] Physical/Non- physical Assist Adaptive Equipment Utilized Rolling/ Turning Scooting/ Bridging Stand-by assist Set-up required, Supervision, Verbal Cues Supine to Sit Stand-by assist Set-up required, Supervision, Verbal Cues, Minimal cues, HOB elevated Sit to Supine Interventions TRANSFERS Level of [place] Physical/Non- physical Assist Adaptive Equipment Utilized Sit to Stand Stand-by assist Set-up required, Supervision, Verbal Cues, Minimal cues Walker, rolling Stand to sit Stand-by assist Supervision, Verbal Cues, Minimal cues Walker, rolling Bed to Chair Toilet Transfer Shower Transfer Interventions AMBULATION Level of [place] Distance Adaptive Equipment Utilized Ambulation Standby assist, Minimal verbal cues 130' x 2 with seated rest break between each distance Rolling walker Comments Cues for safety awareness. LAYOUT FORMER presence was necessary for: * managing lines [...] Maxillofacial Surgery Progress Note 08/29/25 Carlito Perez Hospital Day: 11 Subjective HISTORY OF PRESENT [...] suction x2, inner canula changed x2 by RTSUKI. Edited by: Rusty Melendrez DDS at 08/29/2025 [...] Rate, well perfused Pulm: Non-labored breathing on C 6-0 cuffed shiley trach secured in place [...] Units Date/Time Cecelia auris Surveillance by PCR [[id number]] (Normal) Collected: 08/19/252018 Order Status: Completed Specimen: Swab from Axilla and Groin Updated: 08/21/25 1033 Cecelia auris PCR Result Not Detected Narrative: This PCR assay was developed and its performance characteristics determined by [facility] as appropriate for clinical purposes. This assay has not been cleared or approved bythe FDA, but is performed in a CLIA regulated laboratory that is qualified to perform high-complexity testing. Multi Drug Resistance Test [[id number]] Collected: 08/19/252018 Order Status: Completed Specimen: Swab from Nares and Nini Rectal Updated: 08/21/25 0733 Culture No growth at day 1 Narrative: This test was developed and its performance characteristics determined by the [facility]. Although the media is FDA-approved, it is not FDA-approved for all specimen types submitted. The FDA has determined that such clearance or approval is not necessary. This test is used for surveillance purposes. It should not be regarded as investigational or for research. The [facility] is certified under the [...] with patient at bedside Rusty Melendrez DDS [facility], PGY-1 Cosigned by Alvaro Adrian DMD, MD [...] Manage VTE (Venous Thromboembolism) Risk Flowsheets (Taken 08/29/2025418) VTE Prevention/Management: left SCDs (sequential compression devices) [...] Renteria MD - 08/28/2025 9:37 PM EDT [facility] Department of Surgery Division of Plastic [...] nursing staff. I have notified senior resident/attending trial consultant with any issues or concerns. * Anesthesia [...] PM EDT Operative Note Date: 08/28/25 Location: [facility] Name: Saravanan Peerz, : 1970, Diagnoses: Pre-op Diagnosis Floor of [...] Attending Surgeon(s): * Marvin Santana - Primary Cut Off Machine Unloader(s): * Roma Rolon MD - Resident - [...] Maxillofacial Surgery Progress Note 08/28/2025 Carlito Perez [facility] Day: 11 Subjective HISTORY OF PRESENT [...] Intake/Output Summary (Last 24 hours) at 08/29/2025 0504 Last data filed at 08/29/2025 0400 Gross [...] Units Date/Time Cecelia auris Surveillance by PCR [[id number]] (Normal) Collected: 08/19/252018 Order Status: Completed Specimen: Swab from Axilla and Groin Updated: 08/21/25 1033 Cecelia auris PCR Result Not Detected Narrative: This PCR assay was developed and its performance characteristics determined by [facility] as appropriate for clinical purposes. This assay has not been cleared or approved bythe FDA, but is performed in a CLIA regulated laboratory that is qualified to perform high-complexity testing. Multi Drug Resistance Test [[id number]] Collected: 08/19/252018 Order Status: Completed Specimen: Swab from Nares and Nini Rectal Updated: 08/21/25 0733 Culture No growth at day 1 Narrative: This test was developed and its performance characteristics determined by the [facility]. Although the media is FDA-approved, it is not FDA-approved for all specimen types submitted. The FDA has determined that such clearance or approval is not necessary. This test is used for surveillance purposes. It should not be regarded as investigational or for research. The [facility] is certified under the [...] with patient at bedside Marcelino Laurent DMD [facility] poultry processing supervisor PGY-1 Pager #: [phone] Cosigned by Alvaro Adrian DMD, MD at [...] Progressing Flowsheets Taken 08/28/2025 0618 by James Juan, RN Progress: improving Taken 08/27/2025 1016 by Don Dolan, RN Plan of Care Reviewed With: patient [...] vac forms and supporting documentation sent to [email or web address] via email: [email or web address] * Care Plan - Don Dolan RN [...] Goal: Plan of Care Review Flowsheets (Taken 08/27/2025 0401) Progress: improving Plan of Care Reviewed With: [...] Note Carlito Perez 54 y.o. male CSN: [id number] Admission: 08/19/2025 5:29 AM Primary Problem: Floor of mouth squamous cell carcinoma Anticipated Discharge Date: 08/30/25 Has Discharge Plans Changed? Medicare Second Notice: Housing Circumstances: Housing Circumstances Action Taken: Medically Ready for Discharge: Additional Comments TF order sent to [employer] via Wave - Private Location App, Marybel has been informed via secure chat. sent the wound vac forms to be fill out and signed by MD Adrian in order to request wound vac. CM messaged [facility] to hold delivery for trach supplies + RW As pt will discharge 08/30/25. POC reviewed with primary team. Refer to primary team's note for details. Pt is not medically readyfor discharge. anticipates readiness for discharge on 08/30/25 In??MARIANELA Bass, casino duty manager * Procedures - Senia Cross PA [...] from the original note were not included. 33384 Suctioning Your Tracheostomy Important Call 911 right [...] tube. Move the catheter tip in a muscogee as you pull the catheter out. ? [...] thoroughly. Last Reviewed Date: 2025 00:00:00 ?? 1242-3383 The [employer]. All rights reserved. This information is not intended as a substitute for professional medical care. Always follow your healthcare professional's instructions. * Rachell Lopez - Bob Masterson RN - 08/26/2025 10:29 AM EDT Images from the original note were not included. 50349 Preventing a Surgical Site Infection A risk [...] of infection. ? Controlled body temperature. A qhltq-tjak-imlktm temperature during or after surgery prevents oxygen [...] and water or with an alcohol-based hand senior environmental technician before and after caring for you. Don?t [...] away. Last Reviewed Date: 2024 00:00:00 ?? 4483-2122 [employer]. All rights reserved. This information is not intended as a substitute for professional medical care. Always follow your healthcare professional's instructions. * Rachlel Lopez - oBb Masterson RN - 08/26/2025 10:29 AM EDT Images from the original note were not included. 68716 Tracheostomy Care You need to take care [...] breathing Last Reviewed Date: 2025 00:00:00 ?? 4922-9490 [employer]. All rights reserved. This information is not intended as a substitute for professional medical care. Always follow your healthcare professional's instructions. * Rachell KhannaFORMERLY [facility] - Bob Masterson RN - 08/26/2025 10:29 [...] a high-fiber diet or laxatives. * Rachell KhannaRUPALI - Bob Masterson RN - 08/26/2025 10:29 AM EDT Images from the original note were not included. 26699 Negative Pressure Wound Therapy Negative pressure wound [...] device. Last Reviewed Date: 2024 00:00:00 ?? 4764-8569 [employer]. All rights reserved. This information is not intended as a substitute for professional medical care. Always follow your healthcare professional's instructions. * Rachell KhannaFORMERLY [facility] - Bob Masterson RN - 08/26/2025 10:29 [...] Neck and shoulder stiffness or pain ? buttermaker swelling (lymphedema) which can be reduced through [...] call the doctor? Call the clinic at [phone] if you have any of these: ? [...] lips Call 911 or go to the [facility] emergency department if you have [...] 9 Taking Care of Your Drain Tube () During surgery, your doctor placed a drain [...] does not seem to beworking properly. 1. Scientologist the tube near the skin and hold [...] from the original note were not included. 44347 Surgery for a Mouth or Throat Tumor [...] look Last Reviewed Date: 2024 00:00:00 ?? [id number] [employer]. All rights reserved. This information is not [...] with a towel and dry with a humanities division chair on low setting to avoid burning. At [...] be taking nutrition by feeding tube, the community case manager in the hospital will give you [...] call the doctor? Call the clinic at [phone] if you have any of these: ? [...] will change at bedside on 08/26 - [id number] mg for 1 month - Recommend 5 [...] Develop Pain Management Plan Flowsheets (Taken 08/26/2025 0625) Pain Management Interventions: pillow support provided position adjusted quiet environment facilitated rest Intervention: Prevent or Manage Pain Flowsheets Taken 08/26/2025 0625 by James Juan RN Sleep/Rest Enhancement: awakenings minimized Taken 08/25/2025 123 by Melina Currie, RN Bowel Elimination Promotion: ambulation promoted Medication Review/Management: medications reviewed Problem: Surgery Nonspecified Goal: Absence of Bleeding Outcome: Ongoing, Progressing Goal: Effective Bowel Elimination Outcome: Ongoing, Progressing Goal: Fluid and Electrolyte Balance Outcome: Ongoing, Progressing Intervention: Monitor and Manage Fluid and Electrolyte Balance Flowsheets (Taken 08/25/2025 123 by Melina Currie, RN) Fluid/Electrolyte Management: electrolyte-binding [...] Maxillofacial Surgery Progress Note 08/25/25 Carlito Perez [facility] Day: 7 Subjective HISTORY OF PRESENT [...] Units Date/Time Cecelia auris Surveillance by PCR [[id number]] (Normal) Collected: 08/19/252018 Order Status: Completed Specimen: Swab from Axilla and Groin Updated: 08/21/25 1033 Cecelia auris PCR Result Not Detected Narrative: This PCR assay was developed and its performance characteristics determined by [facility] as appropriate for clinical purposes. This assay has not been cleared or approved bythe FDA, but is performed in a CLIA regulated laboratory that is qualified to perform high-complexity testing. Multi Drug Resistance Test [[id number]] Collected: 08/19/252018 Order Status: Completed Specimen: Swab from Nares and Nini Rectal Updated: 08/21/25 0733 Culture No growth at day 1 Narrative: This test was developed and its performance characteristics determined by the [facility]. Although the media is FDA-approved, it is not FDA-approved for all specimen types submitted. The FDA has determined that such clearance or approval is not necessary. This test is used for surveillance purposes. It should not be regarded as investigational or for research. The [facility] is certified under the [...] with patient at bedside Marcelino Laurent DMD [facility] poultry processing supervisor PGY-1 Pager #: [phone] Cosigned by Alvaro Adrian DMD, MD at [...] will change at bedside on 08/26 - [id number] mg for 1 month - Recommend 5 [...] MD Plastic & Reconstructive Surgery PGY-4 Pager [phone] Cosigned by Marvin Santana MD at 08/26/2025 [...] in room to restroom Taken 08/23/20252134 by oRbert Wilson Plan of Care Reviewed With: patient [...] scheduled Intervention: Prevent Skin Injury Flowsheets Taken 08/24/20251919 by Hailey Lund CNA Body Position: sitting [...] Infection Flowsheets Taken 08/24/2025 0700 by Kathy Lund, RN Isolation Precautions: precautions maintained protective Taken 08/23/20252134 by Robert Wilson Infection Management: aseptic technique maintained Fever Reduction/Comfort Measures: lightweight bedding Goal: Optimal Pain Control and Function Outcome: Ongoing, Progressing Intervention: Prevent or Manage Pain Flowsheets Taken 08/24/20252003 by Shania Perez Complementary Therapy: music therapy provided Taken 08/24/2025 1303 by Kathy Lund company laundry worker Interventions: medication (see MAR) Taken 08/23/20252134 by [...] site changed Taken 08/22/2025 0621 by Miya Al RN [...] Intervention: Promote Injury-Free Environment Flowsheets (Taken 08/24/2025 0700 by Kathy Lund, [...] Note Carlito Perez 54 y.o. male CSN: [id number] Admission: 08/19/2025 5:29 AM Primary Problem: Floor of mouth squamous cell carcinoma Anticipated Discharge Date: 08/26/25 Referral for trach supplies and a RW placed in careport and sent [facility]. Trach supply order will be reviewed on Tuesday08/26/25. Contact information for primary CM included in referral for [facility] to follow up on 08/26/25. Additional Comments Halie Ledezma RN * Progress Notes - Marcelino Laurent DMD - 08/24/2025 10:27 AM EDT Images from the original note were not included. Oral & Maxillofacial Surgery Progress Note 08/24/25 [facility] Day: 6 Subjective HISTORY OF PRESENT [...] tolerated cuff leak test Edited by: Marcelino Laurent, CLEM at 08/24/2025 1027 Objective Last Recorded Vitals [...] Units Date/Time Cecelia auris Surveillance by PCR [[id number]] (Normal) Collected: 08/19/252018 Order Status: Completed Specimen: Swab from Axilla and Groin Updated: 08/21/25 1033 Cecelia auris PCR Result Not Detected Narrative: This PCR assay was developed and its performance characteristics determined by [facility] as appropriate for clinical purposes. This assay has not been cleared or approved bythe FDA, but is performed in a CLIA regulated laboratory that is qualified to perform high-complexity testing. Multi Drug Resistance Test [[id number]] Collected: 08/19/252018 Order Status: Completed Specimen: Swab from Nares and Nini Rectal Updated: 08/21/25 0733 Culture No growth at day 1 Narrative: This test was developed and its performance characteristics determined by the [facility]. Although the media is FDA-approved, it is not FDA-approved for all specimen types submitted. The FDA has determined that such clearance or approval is not necessary. This test is used for surveillance purposes. It should not be regarded as investigational or for research. The [facility] is certified under the [...] -Continue to monitor #HLD -Restated home atorvastain #GARUANG Dispo: Continue Current Level of Care - Plan of care discussed with patient at bedside Marcelino Laurnet DMD [facility] poultry processing supervisor PGY-1 Pager #: [phone] Cosigned by Alvaro Adrian DMD, MD at [...] will change at bedside on 08/26 - [id number] mg for 1 month - Recommend 5 [...] on Intervention: Prevent Infection Flowsheets (Taken 08/21/2025 173 by Juanita Vergara, RN) Infection Prevention: environmental [...] With: patient Taken 08/22/2025 0621 by Miya Al, RN Outcome Evaluation: Pt [...] Note Carlito Perez 54 y.o. male CSN: [id number] Room/Bed 128/128A Nutrition evaluation type: follow-up Reason [...] air) O2 Delivery Method: Humidified trach collar Lucie Coma Scale Score: 15 Dex Scale Score: 19 Virgilio/Cubbin Pressure Risk Score: 41 Most Recent BM Date: (LAYOUT FORMER) Skin: wound vac, right pretibial surgical wound, [...] 4 months Estimated Needs: Kcal: 30-35 kcal/kg (6600-1202 kcal/d) Protein: 1.5-1.8 g/kg (131-157 g/d) Based [...] shellfish, penicillan CAD (coronary artery disease) Cancer ([facility]) [id number] Coronary artery calcification Dental disease chipped teeth, jony block for vocal chord damage Fractures clavical surgery GERD (gastroesophageal reflux disease) 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 HLD (hyperlipidemia) HTN (hypertension) Hypothyroidism Reflux gastritis Substance abuse 1988 [2] Past Surgical History: Procedure Laterality Date APPENDECTOMY 1979 CARDIOTHORACIC PROCEDURE stents CAROTID STENT 04/26/2023 COLONOSCOPY 2023 CORONARY STENT PLACEMENT [id number] ORTHOPEDIC SURGERY repair to clavical OTHER SURGICAL [...] PM EDT Referral for enterals-TF sent to [facility] via [facility], pending final recs from JOAN. * Care Plan - Luna White RN [...] Fall Risk Flowsheets (Taken 08/22/20251999 by Ron Hines, RENATO) Safety Promotion/Fall Prevention: activity supervised assistive device/personal items within reach clutter-free environment maintained fall prevention program maintained lighting adjusted mobility aid in reach nonskid shoes/slippers when out of bed room organization consistent safety round/check completed toileting scheduled Intervention: Prevent Skin Injury Flowsheets Taken 08/23/2025 0600 by Ron Hines, RN Body Position: weight shifting Taken 08/21/2025 173 by Juanita Vergara RN [...] Intervention: Optimize Oxygenation and Ventilation Flowsheets Taken 08/23/2025599 by Ron Hines RN Head of Bed [...] Progressing Intervention: Optimize Skin Protection Flowsheets Taken 08/23/2025599 by Ron Hines RN Head of Bed (HOB) Positioning: HOB elevated Taken 08/22/20251999 by Ron Hines RN Activity Management: activity adjusted per tolerance Taken 08/22/2025620 by Miya Al RN Pressure [...] Contributors Flowsheets Taken 08/23/2025 0725 by Luna White, RN Self-Care Promotion: independence encouraged Taken 08/20/20251818 by Lizy Amador Medication Review/Management: medications reviewed high-risk medications identified Intervention: Promote Injury-Free Environment Flowsheets (Taken 08/22/20251999 by Ron Hines, RN) Safety Promotion/Fall Prevention: activity supervised assistive [...] will change at bedside on 08/26 - [id number] mg for 1 month - Recommend 5 [...] MD Plastic & Reconstructive Surgery PGY-4 Pager [phone] Cosigned by Marvin Santana MD at 08/24/2025 [...] Maxillofacial Surgery Progress Note 08/23/25 Carlito Perez [facility] Day: 5 Subjective HISTORY OF PRESENT [...] Edited by: Rusty Melendrez DDS at 08/23/2025 0542 Objective Last Recorded Vitals Temp: [36.5 ??C [...] Intake/Output Summary (Last 24 hours) at 08/23/2025 0538 Last data filed at 08/23/2025 0500 Gross [...] Units Date/Time Cecelia auris Surveillance by PCR [[id number]] (Normal) Collected: 08/19/25 2019 Order Status: Completed Specimen: Swab from Axilla and Groin Updated: 08/21/25 1033 Cecelia auris PCR Result Not Detected Narrative: This PCR assay was developed and its performance characteristics determined by [facility] as appropriate for clinical purposes. This assay has not been cleared or approved bythe FDA, but is performed in a CLIA regulated laboratory that is qualified to perform high-complexity testing. Multi Drug Resistance Test [[id number]] Collected: 08/19/25 2019 Order Status: Completed Specimen: Swab from Nares and Nini Rectal Updated: 08/21/25 0733 Culture No growth at day 1 Narrative: This test was developed and its performance characteristics determined by the [facility]. Although the media is FDA-approved, it is not FDA-approved for all specimen types submitted. The FDA has determined that such clearance or approval is not necessary. This test is used for surveillance purposes. It should not be regarded as investigational or for research. The [facility] is certified under the [...] with patient at bedside Rusty Melendrez DDS [facility], [facility]Y-1 Cosigned by Alvaro Adrian DMD, MD [...] Oral Intake Flowsheets (Taken 08/21/20251733 by Juanita Vergara, RENATO) Oral Nutrition Promotion: rest periods promoted social interaction promoted * Progress Notes - Cynthia Sands RN - 08/22/2025 1:27 PM EDT Case Management Adult Progress Note Carlito Perez 54 y.o. male CSN: [id number] Admission: 08/19/2025 5:29 AM Primary Problem: Floor of mouth squamous cell carcinoma Anticipated Discharge Date: 08/27/25 Has Discharge Plans Changed? Medicare Second Notice: Housing Circumstances: Housing Circumstances Action Taken: Medically Ready for Discharge: Additional Comments Referral for PT/OT+SN sent to agencies via [facility]. UPDATE: [facility] [phone] has accepted pt. POC reviewed with primary team. Refer to primary team's note for details. Pt is not medically readyfor discharge. MD anticipates readiness for discharge more than 72 hrs. In??MARIANELA Bass, casino duty manager * Progress Notes - Nicole Rodriguez [...] anesthesia, CAD (coronary artery disease), Cancer (CMS/HCC) ([id number]), Coronary artery calcification, Dental disease, Fractures (clavical surgery), GERD (gastroesophageal reflux disease), Hard to intubate, HLD (hyperlipidemia), HTN (hypertension), Hypothyroidism, Reflux gastritis, and Substance abuse (1988). Past Surgical History Patient has a past surgical history that includes Appendectomy (1979); Colonoscopy (2023); Coronarystent placement ([id number]); Other surgical history; Cardiothoracic procedure; orthopedic surgery; Throat surgery; and Carotid stent (04/26/2023). Precautions Right Lower Extremity Weight Bearing Status: Weight Bearing as Tolerated (with CAM boot for ambulation; on AAT - okay to remove for skin inspection, hygiene, and dressing changes per medical TEAM) Medical Precautions: Fall precautions Mobility Orders (Order ID: [id number]) Priority: Routine Interval: Until discontinued Comments: MUST [...] Care Family/Caregiver Present: Yes Family/Caregiver: (Adult Sister) Director Of Transportation: Not Applicable Presentation Oxygen Therapy: Supplemental oxygen [...] admission Level of Mobility: Ambulatory- community Mobility [place]: Independent gait without device History of Falls: [...] Mobility Bed Mobility Exam: Scooting/Bridging Level of [place]: Stand-by assist (anteriorly to EOB) Physical/Nonphysical Assist: Set-up required, Supervision, Verbal Cues, Minimal cues, 1 person + 1 person to manage equipment Bed Mobility Exam: Supine to Sit Level of [place]: Contact guard (to the left) Physical/Nonphysical Assist: Set-up required, Verbal Cues, Nonverbal cues (demo/gestures), Minimal cues, HOB elevated, 1 person + 1 person to manage equipment Assistive Device: Bed rails Transfers Transfer Exam: Sit to stand Level of [place]: Contact guard Physical/Nonphysical Assist: Set-up required, Verbal Cues, Nonverbal cues (demo/gestures), Minimal cues, 1 person + 1 person to manage equipment Assistive Device: Walker, rolling Transfer Exam: Stand to Sit Level of [place]: Contact guard Physical/Nonphysical Assist: Verbal Cues, Nonverbal [...] inpatient within personal toileting routines. Standardized Assessments [facility] 6-Click Daily Activities Help from Other: Don/Doff Regular Lower Body Clothings: A lot Help From Other: Bathing: Little Help From Other: Toileting: Little Help From Other: Don/Doff Upper Body Clothings: Little Help From Other: Grooming: None Help From Other: Eating Meals: Little (DHT) [facility] 6 Click - Daily Activities Score: 18/24 Assessment Patient tolerated today's initial evaluation/session well [...] to return home with 24/7-hour assistance with OT/PT as OT anticipates that the patient [...] at 9:59 AM. * Progress Notes - Dbebie Viveros, PT - 08/22/2025 9:38 AM EDT Physical Therapy Evaluation Patient Name: Saravanan Coe Today's Date: 08/22/2025 PT Discharge Recommendations: Home [...] anesthesia, CAD (coronary artery disease), Cancer (CMS/HCC) ([id number]), Coronary artery calcification, Dental disease, Fractures (clavical surgery), GERD (gastroesophageal reflux disease), Hard to intubate, HLD (hyperlipidemia), HTN (hypertension), Hypothyroidism, Reflux gastritis, and Substance abuse (1988). Past Surgical History Patient has a past surgical history that includes Appendectomy (1979); Colonoscopy (2023); Coronarystent placement ([id number]); Other surgical history; Cardiothoracic procedure; orthopedic surgery; [...] Care Family/Caregiver Present: Yes Family/Caregiver: (Adult Sister) Director Of Transportation: Not Applicable Presentation Oxygen Therapy: Supplemental oxygen [...] admission Level of Mobility: Ambulatory- community Mobility [place]: Independent gait without device History of Falls: [...] Mobility Bed Mobility Exam: Scooting/Bridging Level of [place]: Stand-by assist (anteriorly to EOB) Physical/Nonphysical Assist: Set-up required, Supervision, Verbal Cues, Minimal cues, 1 person + 1 person to manage equipment Bed Mobility Exam: Supine to Sit Level of [place]: Contact guard (to the left) Physical/Nonphysical Assist: Set-up required, Verbal Cues, Nonverbal cues (demo/gestures), Minimal cues, HOB elevated, 1 person + 1 person to manage equipment Transfers Transfer Exam: Sit to stand Level of [place]: Contact guard Physical/Nonphysical Assist: Set-up required, Verbal Cues, Nonverbal cues (demo/gestures), Minimal cues, 1 person + 1 person to manage equipment Assistive Device: Walker, rolling Transfer Exam: Stand to Sit Level of [place]: Contact guard Physical/Nonphysical Assist: Verbal Cues, Nonverbal [...] Level of Assistance: Contact guard Standardized Assessments [facility] 6-Clicks Mobility Assessment Difficulty patient has [...] 3-5 steps with a railing?: A little [facility] 6-Clicks Mobility Assessment Total : 21 [...] Juanita Vergara RN Progress: improving Taken 08/19/2025 224 by Nely Cardoza RN Plan of Care [...] Infection Flowsheets (Taken 08/21/20251733 by Juanita Vergara, RN) Infection Prevention: environmental [...] Prevent or Manage Infection Flowsheets Taken 08/22/2025 07 by Luna White RN Isolation Precautions: precautions maintained Taken 08/21/20251733 by Juanita Vergara RN Infection Management: aseptic technique maintained Fever Reduction/Comfort Measures: lightweight bedding lightweight clothing Goal: Optimal Pain Control and Function Outcome: Ongoing, Progressing Intervention: Prevent or Manage Pain Flowsheets (Taken 08/21/20251733 by Juanita Vergara RN) Diversional Activities: television [employer] Goal: Nausea and Vomiting Relief Outcome: Ongoing, [...] Optimize Oxygenation and Ventilation Flowsheets Taken 08/22/2025 07 by Luna White RN Cough And Deep Breathing: done with encouragement Taken 08/22/2025 06 by Miya Al RN [...] Progressing Intervention: Optimize Skin Protection Flowsheets Taken 08/22/2025 06 by Miya Al RN Pressure Reduction Devices: positioning supports utilized Taken 08/22/2025 0600 by Miya Al RN Activity Management: activity [...] Identify and Manage Contributors Flowsheets (Taken 08/20/2025 181 by Lizy Amador) Medication Review/Management: medications reviewed high-risk medications identified Intervention: Promote Injury-Free Environment Flowsheets (Taken 08/21/20251999 by Miya Al RN) Safety Promotion/Fall Prevention: assistive device/personal items within reach * Care Plan - Miya Al RN - 08/22/2025 6:25 AM EDT Problem: Adult Inpatient Plan of Care Goal: Plan of Care Review Outcome: Ongoing, Progressing Flowsheets Taken 08/22/2025620 by Miya Al RN Outcome [...] and Manage Urinary Retention Flowsheets (Taken 08/22/2025 06) Urinary Elimination Promotion: catheter patency maintained Goal: [...] will change at bedside on 08/26 - [id number] mg for 1 month - Recommend 5 [...] MD Plastic & Reconstructive Surgery PGY-4 Pager [phone] Cosigned by Marvin Santana MD at 08/22/2025 [...] Maxillofacial Surgery Progress Note 08/22/25 Carlito Perez [facility] Day: 4 Subjective HISTORY OF PRESENT [...] Units Date/Time Cecelia auris Surveillance by PCR [[id number]] (Normal) Collected: 08/19/252018 Order Status: Completed Specimen: Swab from Axilla and Groin Updated: 08/21/25 1033 Cecelia auris PCR Result Not Detected Narrative: This PCR assay was developed and its performance characteristics determined by [facility] as appropriate for clinical purposes. This assay has not been cleared or approved bythe FDA, but is performed in a CLIA regulated laboratory that is qualified to perform high-complexity testing. Multi Drug Resistance Test [[id number]] Collected: 08/19/252018 Order Status: Completed Specimen: Swab from Nares and Nini Rectal Updated: 08/21/25 0733 Culture No growth at day 1 Narrative: This test was developed and its performance characteristics determined by the [facility]. Although the media is FDA-approved, it is not FDA-approved for all specimen types submitted. The FDA has determined that such clearance or approval is not necessary. This test is used for surveillance purposes. It should not be regarded as investigational or for research. The [facility] is certified under the [...] 08/21/20251733 by Juanita Vergara RN Progress: improving Outcome [...] completed Intervention: Prevent Skin Injury Flowsheets Taken 08/21/2025 1734 Skin Protection: transparent dressing maintained pulse oximeter probe site changed incontinence pads utilized Taken 08/21/2025 1600 Body Position: weight shifting Intervention: Prevent and Manage VTE (Venous Thromboembolism) Risk Flowsheets (Taken 08/21/2025 1734) VTE Prevention/Management: SCDs (sequential compression devices) on medication Intervention: Prevent Infection Flowsheets (Taken 08/21/2025 1733) Infection Prevention: environmental surveillance performed equipment surfaces disinfected hand hygiene promoted personal protective equipment utilized rest/sleep promoted single patient room provided visitors restricted/screened Goal: Optimal Comfort and Wellbeing Outcome: Ongoing, Progressing Problem: Pain Acute Goal: Optimal Pain Control and Function Outcome: Ongoing, Progressing Problem: Surgery Nonspecified Goal: Absence of Bleeding Outcome: Ongoing, Progressing Intervention: Monitor and Manage Bleeding Flowsheets (Taken 08/21/2025 173) Bleeding Management: dressing monitored Goal: Effective Bowel [...] Intervention: Optimize Glycemic Control Flowsheets (Taken 08/21/2025 173) Hyperglycemia Management: blood glucose monitored Hypoglycemia Management: blood glucose monitored Goal: Absence of Infection Signs and Symptoms Outcome: Ongoing, Progressing Intervention: Prevent or Manage Infection Flowsheets (Taken 08/21/2025 173) Infection Management: aseptic technique maintained Fever Reduction/Comfort Measures: lightweight bedding lightweight clothing Isolation Precautions: precautions maintained protective Goal: Optimal Pain Control and Function Outcome: Ongoing, Progressing Intervention: Prevent or Manage Pain Flowsheets (Taken 08/21/2025 173) Pain Management Interventions: medication (see MAR) Diversional Activities: television smartphone Goal: Nausea and Vomiting Relief Outcome: Ongoing, Progressing Intervention: Prevent or Manage Nausea and Vomiting Flowsheets (Taken 08/21/2025 173) Nausea/Vomiting Interventions: slow deep breathing encouraged Goal: Effective Urinary Elimination Outcome: Ongoing, Progressing Goal: Effective Oxygenation and Ventilation Outcome: Ongoing, Progressing Intervention: Optimize Oxygenation and Ventilation Flowsheets (Taken 08/21/2025 173) Activity Management: activity adjusted per tolerance Airway/Ventilation Management: airway patency maintained oxygen therapy provided Problem: Infection Goal: Absence of Infection Signs and Symptoms Outcome: Ongoing, Progressing Intervention: Prevent or Manage Infection Flowsheets (Taken 08/21/2025 173) Infection Management: aseptic technique maintained Fever Reduction/Comfort Measures: lightweight bedding lightweight clothing Isolation Precautions: precautions maintained protective Problem: Skin Injury Risk Increased Goal: Skin Health and Integrity Outcome: Ongoing, Progressing Intervention: Optimize Skin Protection Flowsheets Taken 08/21/2025 1734 Activity Management: activity adjusted per tolerance Pressure [...] PM EDT . * Significant Event - eSnia Cross PA - 08/21/2025 12:24 PM EDT Plastic Surgery Significant Event Carlito Perez is a 54 y.o. male with PMH of CAD (2022), HLD, hypothyroidism, who presents with a 3+ [...] on file Utilities: Not At Risk (08/21/2025) [facility] Utilities Threatened with loss of utilities: No Stress: Not on file Intimate Partner Violence: Not At Risk (08/21/2025) Humiliation, Afraid, Rape, and Kick questionnaire Fear of Current or Ex-Partner: No Emotionally Abused: No Physically Abused: No Sexually Abused: No Physical Activity: Not on file Social Connections: Not on file Financial Resource Strain: Not on file * Progress Notes - oRma Rolon MD - 08/21/2025 10:07 AM EDT [...] re-started Dispo: Downgrade to Progressive. Transfer to FS primary. Cosigned by Marvin Santana MD at [...] Surgery ICU Progress Note 08/21/25 Carlito Perez [facility] Day: 3 Subjective HISTORY OF PRESENT [...] Value Units Date/Time Multi Drug Resistance Test [[id number]] Collected: 08/19/252018 Order Status: Sent Specimen: Swab from Nares and Nini Rectal Updated: 08/19/252029 Cecelia auris Surveillance by PCR [[id number]] Collected: 08/19/252018 Order Status: Sent Specimen: Swab [...] Trach care per OMFS #Tracheostomy - Contact trial consultant PGY-1 for acute trach concerns - 6-0 [...] #Hypothyroidism - Restarted Levothyroxine Marcelino Laurent DMD [facility] poultry processing supervisor PGY-1 Pager #: [phone] [1] acetaminophen, 1,000 mg, Nasogastric, q6h JOVANNI [...] and Manage Urinary Retention Flowsheets (Taken 08/21/2025 1299) Urinary Elimination Promotion: bladder volume assessed by [...] from the original note were not included. INSTRUMENT LENS INSPECTOR Flap Check 08/21/2025 PROCEDURE: Right osteocutaneous free [...] resident Galina Renteria DMD, MD Vascular Surgery Service Station Console Operator Pager ID [phone] * Significant Event - Galina Renteria MD - 08/20/2025 8:01 PM EDT INSTRUMENT LENS INSPECTOR Flap Check 08/20/2025 PROCEDURE: Right osteocutaneous free [...] resident Galina Renteria DMD, MD Vascular Surgery Service Station Console Operator Pager ID [phone] * Care Plan - Lizy Amador - [...] medications identified * Progress Notes - Jackeline Rodriguez, RN - 08/20/2025 10:06 AM EDT Case Management Adult Initial Progress Note Carlito Perez 54 y.o. male CSN: [id number] Admission: 08/19/2025 5:29 AM Primary Problem: Floor of mouth squamous cell carcinoma Show Design Supervisor reviewed chart and spoke with patient's spouse to complete this Initial Case Management Assessment. Patient intubated and CM unable to obtain SDOH information. PCP: Christina Arteaga APRN Emergency Contact: Extended Emergency Contact Information Primary Emergency Contact: Elicia Perez Address: [address] [place] [address] [facility] [place] Relation: Spouse Insurance: Primary Visit Coverage Payer Plan Sponsor Code Group Number Group Name [employer] [place] [employer] Primary Visit Coverage Subscriber Subscriber ID Subscriber Name Subscriber N Subscriber Address [id number] Carlito Perez [id number] [address] [place] [address] Patient information: Primary Caregiver: Self Accompanied by/Relationship: spouse Support System: Immediate family Daily Living Activities: Functional Status: Independent Living Arrangements: Spouse/Significant other Type of Residence: Private residence, Single Level [address] [place] [address] Current DME: Equipment Currently Used at Home: none Current DME Provider: has a cane and crutches at [facility] if needed. Income Information: Income Source: Employed Income/Expense Information: Income meets expenses Current Resources Utilized: None Housing Circumstances-Z Codes: Housing Circumstances (select all that apply): None Applicable Anticipated Discharge Date: 08/26 Patient's Discharge Goal: tbd Assistance Available at Discharge: 06/06 per family. His sister is an RN, son is a mercantile reporter and he has a cousin who is an RN. Per spouse they are all able/willing to assist patient when dc home for hospital. Spouse also able to assist however she works many hours at her job. Discharge Transport: family Follow Up Transport: family Home Health / Home Infusion / Outpatient Dialysis Services: Current DME Provider: has a cane and crutches at [facility] if needed. Living Will/Advance Directive/Power of Roofer Apprentice /Guardian: has copies of LW and POA . CM suggested she present these to a baby stroller rental clerk who may be able to scan into his epic/my chart. Additional Comments: Show Design Supervisor provided introduction of CM and information on CM role. Confirmed demographics in EPICare accurate. requested communication go to [email or web address] Jackeline Rodriguez RN * Progress Notes - [...] Height: O2 Delivery Method: Humidified trach collar MS SUP: 10 cm H20 Insp Time (sec): 1.4 sec FiO2 (%): 28 % S RR: 14 MS SUP: 10 cm H20 I O Shift [...] for mandibular reconstruction -Multimodal pain control -D/c fortunato, D/c A-line -OOBTC -Bed flexed -CAM boot [...] & Maxillofacial Surgery ICU Progress Note 08/20/25 [facility] Day: 2 Subjective HISTORY OF PRESENT [...] Pt seen and evaluated at bedside by [facility] surgery residents. NPO.Tolerating pain on PO meds [...] well perfused Pulm: Non-labored breathing on HCT . 6-0 cuffed shiley trach secured in place [...] Value Units Date/Time Multi Drug Resistance Test [[id number]] Collected: 08/19/252018 Order Status: Sent Specimen: Swab from Nares and Nini Rectal Updated: 08/19/252029 Cecelia auris Surveillance by PCR [[id number]] Collected: 08/19/252018 Order Status: Sent Specimen: Swab [...] #Hypothyroidism - Restarted Levothyroxine Rusty Melendrez DDS [facility], PGY-1 [1] acetaminophen, 650 mg, Nasogastric, q6h [...] 5:32 AM EDT Free Flap Check Note [@0534] Carlito Perez is a 54 y.o. male [...] from the original note were not included. [facility] Department of Surgery Division of Plastic and Reconstructive Surgery Post-Operative Check Name: Carlito Roberth Perez Attending Provider: Marvin Santana MD Age/Sex: 54 y.o. male Unit: [facility] 5 T2 ICU Date & Time [...] negative except for as above. SUBJECTIVE Vitals: 08/19/25 2045 BP: Pulse: 72 Resp: 20 Temp: (!) [...] by Drain (mL) 08/17/25 07 - 08/17/25 18508/17/251899 - 08/18/25 0659 08/18/25 07 - 08/18/25 1859 08/18/25 190 - 08/19/25 0659 08/19/25 07 - 08/19/25 1859 08/19/251899 - 08/19/25 2122 Closed/Suction Drain Anterior;Right Neck [...] Note Carlito Perez 54 y.o. male CSN: [id number] Room/Bed OR/- Nutrition evaluation type: assessment Reason [...] (98.2 ??F) Oxygen Therapy: None (Room air) [place] Coma Scale Score: 15 Dex Scale Score: 21 Allergies: Fish, Shellfish Medications: Current Scheduled Medications[4] Current Continuous Medications[5] Current PRN Medications[6] Labs: No lab exists for component: ALB No results found for: MG Lab Results Component Value Date ALT 07/25/2025 AST 28 07/25/2025 ALKPHOS 55 07/25/2025 [...] 4 months Estimated Needs: Kcal: 30-35 kcal/kg (1017-7897 kcal/d) Protein: 1.5-1.8 g/kg (131-157 g/d) Based [...] shellfish, penicillan CAD (coronary artery disease) Cancer ([facility]) [id number] Coronary artery calcification Dental disease chipped teeth, jony block for vocal chord damage Fractures clavical surgery GERD (gastroesophageal reflux disease) 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 Procedure(s): Tracheotomy, partial glossectomy left anterior tongue, left segmental mandibulectomy, left selective neck dissection, extraction of #2,3,5,6,7,8,9,10,11,12,13,15,28,29,31, Direct Laryngoscopy with Biopsy Attending Surgeon(s): Panel 1: * Marvin Santana R - Primary Panel 2: * Alvaro Adrian B - Primary Cut Off Machine Unloader(s): Panel 1: * Roma Rolon MD - [...] W/O ANGLE 2MM THCK - SNA - [id number] Used, Not Implanted NA Plate PLATE TI PSPC MATRIXMAND ANG RECON 7X23H/2MM LT - SNA - [id number] Implanted NA Screw SCREW 2.0MM MATRIXMANDIBLE ST 8MM - SNA - [id number] Used, Not Implanted NA Screw SCREW 2.0MM MATRIXMANDIBLE LOCK ST 8MM - SN/A - [id number] Implanted N/A SCREW 2.0MM [address] LOCK [address] 10MM - SN/A - [id number] Implanted N/A SCREW 2.0MM [address]OCK [address] 10MM - SN/A - [id number] Implanted N/A SCREW 2.0MM [address]OCK [address] 14MM - SN/A - [id number] Implanted N/A Specimen: Specimens ID Source Frozen? [...] blade was used to incise trachea an Karelyhen asked our anesthesia colleagues to start slowly [...] AM EDT Operative Note Date: 08/19/25 Location: [facility] Name: Saravanan Perez, : 1970, Diagnoses: [...] Panel 1: * Marvin Santana - Primary Cut Off Machine Unloader(s): Panel 1: * Roma Rolon MD - [...] W/O ANGLE 2MM THCK - SNA - [id number] Used, Not Implanted NA Plate PLATE TI PSPC MATRIXMAND ANG RECON 7X23H/2MM LT - SNA - [id number] Implanted NA Screw SCREW 2.0MM MATRIXM[address] ST 8MM - SNA - [id number] Used, Not Implanted NA Screw SCREW 2.0MM [address]RI[address] LOCK [address] 8MM - SN/A - [id number] Implanted N/A SCREW 2.0MM [address] LOCK [address] 10MM - SN/A - [id number] Implanted N/A SCREW 2.[address]MM [address]OCK [address] 10MM - SN/A - [id number] Implanted N/A SCREW 2.0MM [address]OCK [address] 14MM - SN/A - [id number] Implanted N/A Specimen: Specimens ID Source Frozen? [...] for reconstruction Free fibula flap secured to wrangell mandible with a reconstruction plate Complex intraoral [...] we had good bony approximation to the wrangell mandible. Under direct visualization we are able to secure 4 holes across the osteotomy sites to the wrangell mandible with bicortical screws. In this fashion were able to reconstruct the right brandyn mandible with a reconstruction plate/implant. We also then were able to drape the pedicle appropriately down into the anastomosis site. Under loupe magnification, we then proceeded to reapproximate the artery end-to-end using 8-0 nylonwithout any issues. The veins were then coupled using a 3.5 mm wood die maker x2. The clamps were carefully removed demonstrating [...] excellent parameters, and secured. An NG feeding tubewas placed and secured. 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 [...] from the original note were not included. [facility] Department of Surgery Division of Plastic and Reconstructive Surgery Plastic Surgery Clinic Note Chief Complaint: Mandibular reconstruction HISTORY OF PRESENT ILLNESS Carlito Perez is a 54 y.o. 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 Santana after Dr. Adrian [facility] lesion excision. He was seen in consultation [...] shellfish, penicillan CAD (coronary artery disease) Cancer ([facility]) [id number] Coronary artery calcification Dental disease chipped teeth, [...] STENT 04/26/2023 COLONOSCOPY 2023 CORONARY STENT PLACEMENT [id number] ORTHOPEDIC SURGERY repair to clavical OTHER SURGICAL [...] with an associated skin paddle in his wrangell blood supply. This will then be harvested [...] - Encouraged nicotine minimization - To see professional model today. - All questions regarding pre-op, intra-op, [...] shellfish, penicillan CAD (coronary artery disease) Cancer ([facility]) [id number] Coronary artery calcification Dental disease chipped teeth, [...] STENT 04/26/2023 COLONOSCOPY 2023 CORONARY STENT PLACEMENT [id number] ORTHOPEDIC SURGERY repair to clavical OTHER SURGICAL [...] 10:45 AM EST Office Visit [facility] Plastic & Reconstructive Surgery [address] [place] [address] Marvin Santana MD [address] [place] [phone] Scheduled Referrals Name Type Priority Associated Diagnoses Order Schedule Discharge Ambulatory referral to NON [facility] Outpatient Referral Routine Floor of mouth squamous cell carcinoma 1 Occurrences starting 08/22/2025 until 02/23/2027 Discharge Ambulatory referral to NON [facility] Outpatient Referral Routine Floor of mouth squamous [...] OXYGEN THERAPY Routine 08/28/2025 8:00 PM EDT OXYGEN THERAPY Routine 08/28/2025 8:00 AM EDT [...] bovie, bipolar, tournique, tps drill and sawt MS PART REMOVAL TONGUE,<1/2 08/19/2025 8:05 AM EDT 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 Needs Microinstruments, micrscope available, doppler, handheld ligasure, bovie, bipolar, tournique, tps drill and sawt MS REMOVAL NODES, NECK,CERV CMPLT 08/19/2025 8:05 AM EDT 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 Needs Microinstruments, micrscope available, doppler, handheld ligasure, bovie, bipolar, tournique, tps drill and sawt MS REMV MALIG JAW BONE RADICAL 08/19/2025 8:05 AM EDT 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 Needs Microinstruments, micrscope available, doppler, handheld ligasure, bovie, bipolar, tournique, tps drill and sawt MS RECONSTR MANDIBLE,BONE PLATE 08/19/2025 8:05 AM EDT 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 Needs Microinstruments, micrscope available, doppler, handheld ligasure, bovie, bipolar, tournique, tps drill and sawt MS LAYR CLOS WND REST BODY 12.6-20 CM 08/19/2025 8:05 AM EDT 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 Needs Microinstruments, micrscope available, doppler, handheld ligasure, bovie, bipolar, tournique, tps drill and sawt MS REPR,FACE,GENITAL,ARGUETA ND,FT+5 CMCM/< 08/19/2025 8:05 AM EDT 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 Needs Microinstruments, micrscope available, doppler, handheld ligasure, bovie, bipolar, tournique, tps drill and sawt MS RECMPL WND HEAD,FAC,HAND 2.6-7.5 CM 08/19/2025 8:05 AM EDT 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 Needs Microinstruments, micrscope available, doppler, handheld ligasure, bovie, bipolar, tournique, tps drill and sawt MS BONE-SKIN GRAFT, MICROVASCULAR 08/19/2025 8:05 AM EDT 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 Needs Microinstruments, micrscope available, doppler, handheld ligasure, bovie, bipolar, tournique, tps drill and sawt TYPE AND SCREEN Routine 08/19/2025 7:05 AM EDT documented in this encounter Results * Phosphorus, Plasma (08/30/2025 3:00 AM EDT) Phosphorus, Plasma 4.2 2.5 - 4.5 mg/dL 08/30/2025 3:39 AM EDT [facility] Blood Venous blood specimen / Unknown Venipuncture / Unknown 08/30/2025 3:00 AM EDT 08/30/2025 3:11 AM EDT us Sin Min Nancy Singletary DMD, MD LAB BLOOD ORDERABLES Melida l Result Performing Organization Address [facility] Co de Phone Number [facility] [address] [place] [id number] * Magnesium, Plasma (08/30/2025 3:00 AM EDT) Magnesium, Plasma 2.4 1.9 - 2.4 mg/dL 08/30/2025 3:39 AM EDT [facility] Blood Venous blood specimen / Unknown Venipuncture / Unknown 08/30/2025 3:00 AM EDT 08/30/2025 3:11 AM EDT us Sin Min Nancy Singletary DMD, MD LAB BLOOD ORDERABLES Melida l Result Performing Organization Address [facility] de Phone Number [facility] [address] [place] [address] * (ABNORMAL) CBC W/O Differential (08/30/2025 3:00 AM EDT) Pathologist [facility] WBC Count 10.23 3.70 - 10.30 10*3/uL LAB HEMATOLOGY METHOD 08/30/2025 3:18 AM EDT [facility] RBC Count 3.18(L) 4.60 - 6.10 10*6/uL LAB HEMATOLOGY METHOD 08/30/2025 3:18 AM EDT [facility] HGB 9.9(L) 13.7 - 17.5 g/dL LAB HEMATOLOGY METHOD 08/30/2025 3:18 AM EDT [facility] HCT 30.3(L) 40.0 - 51.0 % LAB HEMATOLOGY METHOD 08/30/2025 3:18 AM EDT [facility] Platelet Count 550(H) 155 - 369 10*3/uL LAB HEMATOLOGY METHOD 08/30/2025 3:18 AM EDT [facility] MCV 95 79 - 98 fL LAB HEMATOLOGY METHOD 08/30/2025 3:18 AM EDT [facility] MCH 31.1 26.0 - 32.0 pg LAB HEMATOLOGY METHOD 08/30/2025 3:18 AM EDT [facility] MCHC 32.7 30.7 - 35.5 g/dL LAB HEMATOLOGY METHOD 08/30/2025 3:18 AM EDT [facility] RDW 13.2 11.5 - 14.5 % LAB HEMATOLOGY METHOD 08/30/2025 3:18 AM EDT [facility] MPV 8.7(L) 8.8 - 12.5 fL LAB HEMATOLOGY METHOD 08/30/2025 3:18 AM EDT [facility] nRBC 0.0 <=0.0 per 100 WBCs LAB HEMATOLOGY METHOD 08/30/2025 3:18 AM EDT [facility] Blood Venous blood specimen / Unknown Venipuncture / Unknown 08/30/2025 3:00 AM EDT 08/30/2025 3:11 AM EDT us Sin Min M Hayder [place] MD LAB BLOOD ORDERABLES Melida mae Result [facility] [address] [phone] * (ABNORMAL) Basic Metabolic Panel, Plasma (08/30/2025 3:00 AM EDT) Glucose, Plasma 113(H) 74 - 99 mg/dL 08/30/2025 3:39 AM EDT [facility] BUN, Plasma 20 7 - 21 mg/dL 08/30/2025 3:39 AM EDT [facility] Creatinine, Plasma 0.68(L) 0.70 - 1.20 mg/dL 08/30/2025 3:39 AM EDT [facility] BUN/Creatinine Ratio 29 08/30/2025 3:39 AM EDT [facility] Sodium, Plasma 137 136 - 145 mmol/L 08/30/2025 3:39 AM EDT [facility] Potassium, Plasma 4.4 3.6 - 4.9 mmol/L 08/30/2025 3:39 AM EDT [facility] Chloride, Plasma 100 97 - 107 mmol/L 08/30/2025 3:39 AM EDT [facility] CO2, Plasma 28 22 - 29 mmol/L 08/30/2025 3:39 AM EDT [facility] Anion Gap 9 6 - 16 mmol/L 08/30/2025 3:39 AM EDT [facility] Total Calcium, Plasma 9.2 8.9 - 10.2 mg/dL 08/30/2025 3:39 AM EDT [facility] eGFRcr 111.8 mL/min/1.7 3m*2 08/30/2025 3:39 AM EDT [facility] Comment:Reported eGFRcr in m L/min/1.73m2 is based the CKD-EPI 2020 equation that does not use a race coefficient. Blood Venous blood specimen / Unknown Venipuncture / Unknown 08/30/2025 3:00 AM EDT 08/30/2025 3:11 AM EDT us Sin Min Nancy Singletary DMD, MD LAB BLOOD ORDERABLES Melida l Result Performing Organization Address City/[facility]/ZIP Co de Phone Number [facility] [address] [place] [address] * Phosphorus, Plasma (08/29/2025 2:37 AM EDT) Phosphorus, Plasma 4.1 2.5 - 4.5 mg/dL 08/29/2025 3:13 AM EDT [facility] Blood Venous blood specimen / Unknown Venipuncture / Unknown 08/29/2025 2:37 AM EDT 08/29/2025 2:44 AM EDT us Sin Min Nancy Singletary DMD, MD LAB BLOOD ORDERABLES Melida l Result [facility] [address] [place] [address] * Magnesium, Plasma (08/29/2025 2:37 AM EDT) Magnesium, Plasma 2.2 1.9 - 2.4 mg/dL 08/29/2025 3:13 AM EDT [facility] Blood Venous blood specimen / Unknown Venipuncture / Unknown 08/29/2025 2:37 AM EDT 08/29/2025 2:44 AM EDT us Sin Min M Hayder [place] MD LAB BLOOD ORDERABLES Melida l Result [facility] [address] [place] [address] * (ABNORMAL) CBC W/O Differential (08/29/2025 2:37 AM EDT) [facility] WBC Count 11.08(H) 3.70 - 10.30 10*3/uL LAB HEMATOLOGY METHOD 08/29/2025 2:57 AM EDT [facility] RBC Count 3.09(L) 4.60 - 6.10 10*6/uL LAB HEMATOLOGY METHOD 08/29/2025 2:57 AM EDT [facility] HGB 9.6(L) 13.7 - 17.5 g/dL LAB HEMATOLOGY METHOD 08/29/2025 2:57 AM EDT [facility] HCT 29.0(L) 40.0 - 51.0 % LAB HEMATOLOGY METHOD 08/29/2025 2:57 AM EDT [facility] Platelet Count 547(H) 155 - 369 10*3/uL LAB HEMATOLOGY METHOD 08/29/2025 2:57 AM EDT [facility] MCV 94 79 - 98 fL LAB HEMATOLOGY METHOD 08/29/2025 2:57 AM EDT [facility] MCH 31.1 26.0 - 32.0 pg LAB HEMATOLOGY METHOD 08/29/2025 2:57 AM EDT [facility] MCHC 33.1 30.7 - 35.5 g/dL LAB HEMATOLOGY METHOD 08/29/2025 2:57 AM EDT [facility] RDW 13.1 11.5 - 14.5 % LAB HEMATOLOGY METHOD 08/29/2025 2:57 AM EDT [facility] MPV 8.6(L) 8.8 - 12.5 fL LAB HEMATOLOGY METHOD 08/29/2025 2:57 AM EDT [facility] nRBC 0.0 <=0.0 per 100 WBCs LAB HEMATOLOGY METHOD 08/29/2025 2:57 AM EDT [facility] Blood Venous blood specimen / Unknown Venipuncture / Unknown 08/29/2025 2:37 AM EDT 08/29/2025 2:44 AM EDT us Sin Min M Hayder [place] MD LAB BLOOD ORDERABLES Melida l Result [facility] [address] [place] [address] * (ABNORMAL) Basic Metabolic Panel, Plasma (08/29/2025 2:37 AM EDT) Glucose, Plasma 110(H) 74 - 99 mg/dL 08/29/2025 3:13 AM EDT [facility] BUN, Plasma 19 7 - 21 mg/dL 08/29/2025 3:13 AM EDT [facility] Creatinine, Plasma 0.72 0.70 - 1.20 mg/dL 08/29/2025 3:13 AM EDT [facility] BUN/Creatinine Ratio 26 08/29/2025 3:13 AM EDT [facility] Sodium, Plasma 138 136 - 145 mmol/L 08/29/2025 3:13 AM EDT [facility] Potassium, Plasma 3.8 3.6 - 4.9 mmol/L 08/29/2025 3:13 AM EDT [facility] Chloride, Plasma 100 97 - 107 mmol/L 08/29/2025 3:13 AM EDT [facility] CO2, Plasma 25 22 - 29 mmol/L 08/29/2025 3:13 AM EDT [facility] Anion Gap 13 6 - 16 mmol/L 08/29/2025 3:13 AM EDT [facility] Total Calcium, Plasma 9.0 8.9 - 10.2 mg/dL 08/29/2025 3:13 AM EDT [facility] eGFRcr 109.9 mL/min/1.7 3m*2 08/29/2025 3:13 AM EDT [facility] Comment:Reported eGFRcr in m L/min/1.73m2 is based the CKD-EPI 2020 equation that does not use a race coefficient. Blood Venous blood specimen / Unknown Venipuncture / Unknown 08/29/2025 2:37 AM EDT 08/29/2025 2:44 AM EDT us Sin Min Nancy Singletary DMD, MD LAB BLOOD ORDERABLES Melida l Result Performing Organization Address City/[facility]/ZIP Co de Phone Number [facility] [address] [place] [address] * (ABNORMAL) POCT glucose meter (08/28/2025 5:41 AM EDT) [facility] POCT Glucose 105(H) 74 - 99 mg/dL [...] Comment 08/28/2025 5:42 AM EDT [facility] Informal Waiter/Waitress ID Ralph BarajasDrew, Lavonne 08/28/2025 5:42 AM EDT [facility] Device ID [id number] 08/28/2025 5:42 AM EDT [facility] Specimen Type POC Capillary 08/28/2025 5:42 AM EDT [facility] Blood Capillary blood specimen / Unknown 08/28/2025 5:41 AM EDT 08/28/2025 5:42 AM EDT Alvaro Adrian DMD, MD LAB POINT OF CA RE TEST DOCKED DEVICE UNSOLICITED RESULTS Final Result Performing Organization Address City/[facility]/ZIP Co de Phone Number [facility] [address] [place] [address] * Phosphorus, Plasma (08/28/2025 3:54 AM EDT) [facility] Phosphorus, Plasma 4.3 2.5 - 4.5 mg/dL 08/28/2025 4:29 AM EDT [facility] [facility] Blood Venous blood specimen / Unknown Venipuncture / Unknown 08/28/2025 3:54 AM EDT 08/28/2025 3:59 AM EDT us Sin Min Nancy Singletary DMD, MD LAB BLOOD ORDERABLES Melida l Result Performing Organization Address [facility]/ZIP Co de Phone Number [facility] [address] [place] [address] * Magnesium, Plasma (08/28/2025 3:54 AM EDT) Magnesium, Plasma 2.2 1.9 - 2.4 mg/dL 08/28/2025 4:29 AM EDT [facility] Blood Venous blood specimen / Unknown Venipuncture / Unknown 08/28/2025 3:54 AM EDT 08/28/2025 3:59 AM EDT us Sin Min Nancy Singletary DMD, MD LAB BLOOD ORDERABLES Melida l Result Performing Organization Address City/[facility] Co de Phone Number [facility] [address] [place] [address] * (ABNORMAL) CBC W/O Differential (08/28/2025 3:54 AM EDT) WBC Count 10.56(H) 3.70 - 10.30 10*3/uL LAB HEMATOLOGY METHOD 08/28/2025 4:07 AM EDT [facility] RBC Count 3.08(L) 4.60 - 6.10 10*6/uL LAB HEMATOLOGY METHOD 08/28/2025 4:07 AM EDT [facility] HGB 9.5(L) 13.7 - 17.5 g/dL LAB HEMATOLOGY METHOD 08/28/2025 4:07 AM EDT [facility] HCT 28.8(L) 40.0 - 51.0 % LAB HEMATOLOGY METHOD 08/28/2025 4:07 AM EDT [facility] Platelet Count 552(H) 155 - 369 10*3/uL LAB HEMATOLOGY METHOD 08/28/2025 4:07 AM EDT [facility] MCV 94 79 - 98 fL LAB HEMATOLOGY METHOD 08/28/2025 4:07 AM EDT [facility] MCH 30.8 26.0 - 32.0 pg LAB HEMATOLOGY METHOD 08/28/2025 4:07 AM EDT [facility] MCHC 33.0 30.7 - 35.5 g/dL LAB HEMATOLOGY METHOD 08/28/2025 4:07 AM EDT [facility] RDW 13.1 11.5 - 14.5 % LAB HEMATOLOGY METHOD 08/28/2025 4:07 AM EDT [facility] MPV 8.7(L) 8.8 - 12.5 fL LAB HEMATOLOGY METHOD 08/28/2025 4:07 AM EDT [facility] nRBC 0.0 <=0.0 per 100 WBCs LAB HEMATOLOGY METHOD 08/28/2025 4:07 AM EDT [facility] Blood Venous blood specimen / Unknown Venipuncture / Unknown 08/28/2025 3:54 AM EDT 08/28/2025 3:59 AM EDT us Sin Min M Hayder [place] MD LAB BLOOD ORDERABLES Melida l Result [facility] [address] [place] [address] * (ABNORMAL) Basic Metabolic Panel, Plasma (08/28/2025 3:54 AM EDT) Glucose, Plasma 101(H) 74 - 99 mg/dL 08/28/2025 4:29 AM EDT [facility] BUN, Plasma 18 7 - 21 mg/dL 08/28/2025 4:29 AM EDT [facility] Creatinine, Plasma 0.62(L) 0.70 - 1.20 mg/dL 08/28/2025 4:29 AM EDT [facility] BUN/Creatinine Ratio 29 08/28/2025 4:29 AM EDT [facility] Sodium, Plasma 136 136 - 145 mmol/L 08/28/2025 4:29 AM EDT [facility] Potassium, Plasma 4.2 3.6 - 4.9 mmol/L 08/28/2025 4:29 AM EDT [facility] Chloride, Plasma 99 97 - 107 mmol/L 08/28/2025 4:29 AM EDT [facility] CO2, Plasma 28 22 - 29 mmol/L 08/28/2025 4:29 AM EDT [facility] Anion Gap 9 6 - 16 mmol/L 08/28/2025 4:29 AM EDT [facility] Total Calcium, Plasma 9.3 8.9 - 10.2 mg/dL 08/28/2025 4:29 AM EDT [facility] eGFRcr 115.0 mL/min/1.7 3m*2 08/28/2025 4:29 AM EDT [facility] Comment:Reported eGFRcr in m L/min/1.73m2 is based the CKD-EPI 2020 equation that does not use a race coefficient. Blood Venous blood specimen / Unknown Venipuncture / Unknown 08/28/2025 3:54 AM EDT 08/28/2025 3:59 AM EDT us Sin Min M Hayder [place] MD LAB BLOOD ORDERABLES Melida l Result Performing Organization Address City/[facility]/ZIP Co de Phone Number [facility] [address] [place] [address] * Type and Screen (08/28/2025 3:54 AM [...] ORD ERABLES Final Result Performing Organization Address City/[facility] Co de Phone Number BLOOD BANK [address] [place] [address], [place] * POCT glucose meter (08/27/2025 11:01 PM EDT) [facility] POCT Glucose 97 74 - 99 mg/dL [...] Comment 08/27/2025 11:03 PM EDT [facility] Informal Waiter/Waitress ID Lavonne Mccauley 08/27/2025 11:03 PM EDT [facility] LAB Device ID [id number] 08/27/2025 11:03 PM EDT [facility] Specimen Type POC Capillary 08/27/2025 11:03 PM EDT [facility] Blood Capillary blood specimen / Unknown 08/27/2025 11:01 PM EDT 08/27/2025 11:03 PM EDT us Alvaro Adrian DMD, MD LAB POINT OF CA RE TEST DOCKED DEVICE UNSOLICITED RESULTS Final Result [facility] [address] [place] [address] * (ABNORMAL) POCT glucose meter (08/27/2025 5:49 PM EDT) [facility] POCT Glucose 119(H) 74 - 99 mg/dL [...] 08/27/2025 5:54 PM EDT [facility] Informal Waiter/Waitress ID Eliecer Garayn 08/27/2025 5:54 PM EDT [facility] LAB Device ID [id number] 08/27/2025 5:54 PM EDT [facility] Specimen Type POC Capillary 08/27/2025 5:54 PM EDT [facility] Blood Capillary blood specimen / Unknown 08/27/2025 5:49 PM EDT 08/27/2025 5:54 PM EDT us Alvaro Adrian DMD, MD LAB POINT OF CA RE TEST DOCKED DEVICE UNSOLICITED RESULTS Final Result Performing Organization Address City/[facility] Co de Phone Number [facility] [address] [place] [address] * (ABNORMAL) POCT glucose meter (08/27/2025 11:38 [...] Comment 08/27/2025 11:40 AM EDT [facility] Informal Waiter/Waitress ID Kanika Garay 08/27/2025 11:40 AM EDT [facility] LAB Device ID [id number] 08/27/2025 11:40 AM EDT [facility] Specimen Type POC Capillary 08/27/2025 11:40 AM EDT [facility] Blood Capillary blood specimen / Unknown 08/27/2025 11:38 AM EDT 08/27/2025 11:40 AM EDT us Alvaro Adrian DMD, MD LAB POINT OF CA RE TEST DOCKED DEVICE UNSOLICITED RESULTS Final Result Performing Organization Address City/[facility] Co de Phone Number [facility] [address] [place] [address] * (ABNORMAL) POCT glucose meter (08/27/2025 5:42 [...] Comment 08/27/2025 5:43 AM EDT [facility] LAB Informal Waiter/Waitress ID Kirsty Garcia 08/27/2025 5:43 AM EDT [facility] LAB Device ID [id number] 08/27/2025 5:43 AM EDT [facility] Specimen Type POC Capillary 08/27/2025 5:43 AM EDT [facility] Blood Capillary blood specimen / Unknown 08/27/2025 5:42 AM EDT 08/27/2025 5:43 AM EDT Alvaro Adrian DMD, MD LAB POINT OF CA RE TEST DOCKED DEVICE UNSOLICITED RESULTS Final Result Performing Organization Address City/[facility]/ZIP Co de Phone Number [facility] [address] [place] [address] * Phosphorus, Plasma (08/27/2025 3:44 AM EDT) Phosphorus, Plasma 3.5 2.5 - 4.5 mg/dL 08/27/2025 4:29 AM EDT [facility] Blood Venous blood specimen / Unknown Venipuncture / Unknown 08/27/2025 3:44 AM EDT 08/27/2025 3:59 AM EDT us Khadar Singletary DMD, MD LAB BLOOD ORDERABLES Melida l Result [facility] [address] [place] [address] * Magnesium, Plasma (08/27/2025 3:44 AM EDT) Magnesium, Plasma 2.1 1.9 - 2.4 mg/dL 08/27/2025 4:29 AM EDT [facility] Blood Venous blood specimen / Unknown Venipuncture / Unknown 08/27/2025 3:44 AM EDT 08/27/2025 3:59 AM EDT us Sin Min M Hayder [place] MD LAB BLOOD ORDERABLES Melida carmelita Result [facility] [address] [place] [address] * (ABNORMAL) CBC W/O Differential (08/27/2025 3:44 AM EDT) WBC Count 10.56(H) 3.70 - 10.30 10*3/uL LAB HEMATOLOGY METHOD 08/27/2025 4:13 AM EDT [facility] RBC Count 2.99(L) 4.60 - 6.10 10*6/uL LAB HEMATOLOGY METHOD 08/27/2025 4:13 AM EDT [facility] HGB 9.3(L) 13.7 - 17.5 g/dL LAB HEMATOLOGY METHOD 08/27/2025 4:13 AM EDT [facility] HCT 28.1(L) 40.0 - 51.0 % LAB HEMATOLOGY METHOD 08/27/2025 4:13 AM EDT [facility] Platelet Count 483(H) 155 - 369 10*3/uL LAB HEMATOLOGY METHOD 08/27/2025 4:13 AM EDT [facility] MCV 94 79 - 98 fL LAB HEMATOLOGY METHOD 08/27/2025 4:13 AM EDT [facility] MCH 31.1 26.0 - 32.0 pg LAB HEMATOLOGY METHOD 08/27/2025 4:13 AM EDT [facility] MCHC 33.1 30.7 - 35.5 g/dL LAB HEMATOLOGY METHOD 08/27/2025 4:13 AM EDT [facility] RDW 12.9 11.5 - 14.5 % LAB HEMATOLOGY METHOD 08/27/2025 4:13 AM EDT [facility] MPV 8.9 8.8 - 12.5 fL LAB HEMATOLOGY METHOD 08/27/2025 4:13 AM EDT [facility] nRBC 0.0 <=0.0 per 100 WBCs LAB HEMATOLOGY METHOD 08/27/2025 4:13 AM EDT [facility] Blood Venous blood specimen / Unknown Venipuncture / Unknown 08/27/2025 3:44 AM EDT 08/27/2025 4:00 AM EDT us Sin Min M Hayder [place] MD LAB BLOOD ORDERABLES Melida mae Result [facility] [address] [place] [address] * (ABNORMAL) Basic Metabolic Panel, Plasma (08/27/2025 3:44 AM EDT) Glucose, Plasma 99 74 - 99 mg/dL 08/27/2025 4:29 AM EDT [facility] BUN, Plasma 17 7 - 21 mg/dL 08/27/2025 4:29 AM EDT [facility] Creatinine, Plasma 0.60(L) 0.70 - 1.20 mg/dL 08/27/2025 4:29 AM EDT [facility] BUN/Creatinine Ratio 28 08/27/2025 4:29 AM EDT [facility] Sodium, Plasma 135(L) 136 - 145 mmol/L 08/27/2025 4:29 AM EDT [facility] Potassium, Plasma 4.2 3.6 - 4.9 mmol/L 08/27/2025 4:29 AM EDT [facility] Chloride, Plasma 99 97 - 107 mmol/L 08/27/2025 4:29 AM EDT [facility] CO2, Plasma 28 22 - 29 mmol/L 08/27/2025 4:29 AM EDT [facility] Anion Gap 8 6 - 16 mmol/L 08/27/2025 4:29 AM EDT [facility] Total Calcium, Plasma 9.2 8.9 - 10.2 mg/dL 08/27/2025 4:29 AM EDT [facility] eGFRcr 116.1 mL/min/1.7 3m*2 08/27/2025 4:29 AM EDT [facility] Comment:Reported eGFRcr in m L/min/1.73m2 is based the CKD-EPI 2020 equation that does not use a race coefficient. Blood Venous blood specimen / Unknown Venipuncture / Unknown 08/27/2025 3:44 AM EDT 08/27/2025 3:59 AM EDT us Khadar Singletary DMD, MD LAB BLOOD ORDERABLES Melida l Result Performing Organization Address City/[facility]/ZIP Co de Phone Number [facility] [address] [place] [address] * (ABNORMAL) POCT glucose meter (08/26/2025 11:56 PM EDT) [facility] POCT Glucose 103(H) 74 - 99 mg/dL [...] Comment 08/26/2025 11:57 PM EDT [facility] LAB Informal Waiter/Waitress ID Kirsty Garcia 08/26/2025 11:57 PM EDT [facility] LAB Device ID [id number] 08/26/2025 11:57 PM EDT [facility] Specimen Type POC Capillary 08/26/2025 11:57 PM EDT [facility] Blood Capillary blood specimen / Unknown 08/26/2025 11:56 PM EDT 08/26/2025 11:57 PM EDT Alvaro Adrian DMD, MD LAB POINT OF CA RE TEST DOCKED DEVICE UNSOLICITED RESULTS Final Result Performing Organization Address City/[facility] Co de Phone Number [facility] [address] [place] [address] * (ABNORMAL) POCT glucose meter (08/26/2025 6:27 PM EDT) [facility] POCT Glucose 106(H) 74 - 99 mg/dL [...] Comment 08/26/2025 6:28 PM EDT [facility] Informal Waiter/Waitress ID Isha Lemos 08/26/2025 6:28 PM EDT [facility] LAB Device ID [id number] 08/26/2025 6:28 PM EDT [facility] Specimen Type POC Capillary 08/26/2025 6:28 PM EDT [facility] Blood Capillary blood specimen / Unknown 08/26/2025 6:27 PM EDT 08/26/2025 6:28 PM EDT us Alvaro Adrian DMD, MD LAB POINT OF CA RE TEST DOCKED DEVICE UNSOLICITED RESULTS Final Result [facility] [address] [place] [address] * Wound VAC Dressing Changes (Non-Instillation) (08/26/2025 [...] tolerated well. Post-procedure details: Procedure completion: Tolerated us Marvin Santana MD WOUND/OSTOMY ORDERABLES Edited Result - Final * POCT glucose meter (08/26/2025 12:48 PM EDT) [facility] POCT Glucose 84 74 - 99 mg/dL [...] for testing. Comment 08/26/2025 12:50 PM EDT [facility] Informal Waiter/Waitress ID Isha Lemos 08/26/2025 12:50 PM EDT [facility] Device ID [id number] 08/26/2025 12:50 PM EDT [facility] Specimen Type POC Capillary 08/26/2025 12:50 PM EDT [facility] Blood Capillary blood specimen / Unknown 08/26/2025 12:48 PM EDT 08/26/2025 12:50 PM EDT us Alvaro Adrian DMD, MD LAB POINT OF CA RE TEST DOCKED DEVICE UNSOLICITED RESULTS Final Result Performing Organization Address City/State/[facility] Co de Phone Number [facility] [address] [place] [address] * POCT glucose meter (08/26/2025 5:44 AM EDT) [facility] POCT Glucose 95 74 - 99 mg/dL [...] 08/26/2025 5:46 AM EDT [facility] Informal Waiter/Waitress ID Latisha Winter 08/26/2025 5:46 AM EDT [facility] Device ID [id number] 08/26/2025 5:46 AM EDT [facility] Specimen Type POC Capillary 08/26/2025 5:46 AM EDT [facility] Blood Capillary blood specimen / Unknown 08/26/2025 5:44 AM EDT 08/26/2025 5:46 AM EDT us Alvaro Adrian DMD, MD LAB POINT OF CA RE TEST DOCKED DEVICE UNSOLICITED RESULTS Final Result Performing Organization Address City/[facility]/ZIP Co de Phone Number [facility] [address] [place] [address] * Phosphorus, Plasma (08/26/2025 3:27 AM EDT) Phosphorus, Plasma 4.0 2.5 - 4.5 mg/dL 08/26/2025 4:11 AM EDT [facility] Blood Venous blood specimen / Unknown Venipuncture / Unknown 08/26/2025 3:27 AM EDT 08/26/2025 3:38 AM EDT us Sin Min Nancy Singletary DMD, MD LAB BLOOD ORDERABLES Melida l Result Performing Organization Address City/[facility] Co de Phone Number [facility] [address] [place] [address] * Magnesium, Plasma (08/26/2025 3:27 AM EDT) Pathologist [facility] Magnesium, Plasma 2.2 1.9 - 2.4 mg/dL 08/26/2025 4:11 AM EDT [facility] Blood Venous blood specimen / Unknown Venipuncture / Unknown 08/26/2025 3:27 AM EDT 08/26/2025 3:38 AM EDT us Sin Min Nancy Singletary DMD, MD LAB BLOOD ORDERABLES Melida l Result Performing Organization Address City/[facility]/ZIP Co de Phone Number [facility] [address] [place] [address] * (ABNORMAL) CBC W/O Differential (08/26/2025 3:27 AM EDT) WBC Count 11.66(H) 3.70 - 10.30 10*3/uL LAB HEMATOLOGY METHOD 08/26/2025 3:47 AM EDT [facility] RBC Count 3.00(L) 4.60 - 6.10 10*6/uL LAB HEMATOLOGY METHOD 08/26/2025 3:47 AM EDT [facility] HGB 9.2(L) 13.7 - 17.5 g/dL LAB HEMATOLOGY METHOD 08/26/2025 3:47 AM EDT [facility] HCT 28.1(L) 40.0 - 51.0 % LAB HEMATOLOGY METHOD 08/26/2025 3:47 AM EDT [facility] Platelet Count 455(H) 155 - 369 10*3/uL LAB HEMATOLOGY METHOD 08/26/2025 3:47 AM EDT [facility] MCV 94 79 - 98 fL LAB HEMATOLOGY METHOD 08/26/2025 3:47 AM EDT [facility] MCH 30.7 26.0 - 32.0 pg LAB HEMATOLOGY METHOD 08/26/2025 3:47 AM EDT [facility] MCHC 32.7 30.7 - 35.5 g/dL LAB HEMATOLOGY METHOD 08/26/2025 3:47 AM EDT [facility] RDW 12.6 11.5 - 14.5 % LAB HEMATOLOGY METHOD 08/26/2025 3:47 AM EDT [facility] MPV 9.0 8.8 - 12.5 fL LAB HEMATOLOGY METHOD 08/26/2025 3:47 AM EDT [facility] nRBC 0.0 <=0.0 per 100 WBCs LAB HEMATOLOGY METHOD 08/26/2025 3:47 AM EDT [facility] Blood Venous blood specimen / Unknown Venipuncture / Unknown 08/26/2025 3:27 AM EDT 08/26/2025 3:38 AM EDT us Sin Min M Hayder [place] MD LAB BLOOD ORDERABLES Melida l Result [facility] [address] [place] [address] * (ABNORMAL) Basic Metabolic Panel, Plasma (08/26/2025 3:27 AM EDT) Glucose, Plasma 101(H) 74 - 99 mg/dL 08/26/2025 4:11 AM EDT [facility] BUN, Plasma 19 7 - 21 mg/dL 08/26/2025 4:11 AM EDT [facility] Creatinine, Plasma 0.59(L) 0.70 - 1.20 mg/dL 08/26/2025 4:11 AM EDT [facility] BUN/Creatinine Ratio 32 08/26/2025 4:11 AM EDT [facility] Sodium, Plasma 138 136 - 145 mmol/L 08/26/2025 4:11 AM EDT [facility] Potassium, Plasma 4.3 3.6 - 4.9 mmol/L 08/26/2025 4:11 AM EDT [facility] Chloride, Plasma 101 97 - 107 mmol/L 08/26/2025 4:11 AM EDT [facility] CO2, Plasma 25 22 - 29 mmol/L 08/26/2025 4:11 AM EDT [facility] Anion Gap 12 6 - 16 mmol/L 08/26/2025 4:11 AM EDT [facility] Total Calcium, Plasma 8.9 8.9 - 10.2 mg/dL 08/26/2025 4:11 AM EDT [facility] eGFRcr 116.7 mL/min/1.7 3m*2 08/26/2025 4:11 AM EDT [facility] Comment:Reported eGFRcr in m L/min/1.73m2 is based the CKD-EPI 2020 equation that does not use a race coefficient. Blood Venous blood specimen / Unknown Venipuncture / Unknown 08/26/2025 3:27 AM EDT 08/26/2025 3:38 AM EDT us Sin Min M Hayder [place] MD LAB BLOOD ORDERABLES Melida l Result [facility] [address] [place] [address] * (ABNORMAL) POCT glucose meter (08/25/2025 11:38 PM EDT) POCT Glucose 129(H) 74 - 99 mg/dL 08/26/2025 12:00 AM EDT [facility] Comment:Accuracy of a glucos e [...] Comment 08/26/2025 12:00 AM EDT [facility]ALTH[facility] LAB Informal Waiter/Waitress ID Hailey Lund 08/26/2025 12:00 AM EDT [facility] LAB Device ID [id number] 08/26/2025 12:00 AM EDT [facility] Specimen Type POC Capillary 08/26/2025 12:00 AM EDT [facility] Blood Capillary blood specimen / Unknown 08/25/2025 11:38 PM EDT 08/26/2025 12:00 AM EDT us Alvaro Adrian DMD, MD LAB POINT OF CA RE TEST DOCKED DEVICE UNSOLICITED RESULTS Final Result Performing Organization Address [facility] Co de Phone Number [facility] [address] [place] [address] * POCT glucose meter (08/25/2025 5:08 PM EDT) [facility] POCT Glucose 91 74 - 99 mg/dL [...] 08/25/2025 5:10 PM EDT [facility] Informal Waiter/Waitress ID Marily Cao 5:10 PM EDT [facility] Device ID [id number] 08/25/2025 5:10 PM EDT [facility] Specimen Type POC Capillary 08/25/2025 5:10 PM EDT [facility] Blood Capillary blood specimen / Unknown 08/25/2025 5:08 PM EDT 08/25/2025 5:10 PM EDT us Alvaro Adrian DMD, MD LAB POINT OF CA RE TEST DOCKED DEVICE UNSOLICITED RESULTS Final Result Performing Organization Address City/[facility]/ZIP Co de Phone Number [facility] [address] [place] [address] * (ABNORMAL) POCT glucose meter (08/25/2025 11:42 AM EDT) Pathologist [facility] POCT Glucose 112(H) 74 - 99 [...] Comment 08/25/2025 12:00 PM EDT [facility] Informal Waiter/Waitress ID Marily Cao Ajay 12:00 PM EDT [facility] LAB Device ID [id number] 08/25/2025 12:00 PM EDT [facility] Specimen Type POC Capillary 08/25/2025 12:00 PM EDT [facility] Blood Capillary blood specimen / Unknown 08/25/2025 11:42 AM EDT 08/25/2025 12:00 PM EDT us Alvaro Adrian DMD, MD LAB POINT OF CA RE TEST DOCKED DEVICE UNSOLICITED RESULTS Final Result [facility] [address] [place], [place] [id number] * POCT glucose meter (08/25/2025 5:02 AM EDT) [facility] POCT Glucose 83 74 - 99 mg/dL [...] 08/25/2025 5:04 AM EDT [facility] Informal Waiter/Waitress ID [place] 5:04 AM EDT [facility] LAB Device ID [id number] 08/25/2025 5:04 AM EDT [facility] Specimen Type POC Capillary 08/25/2025 5:04 AM EDT [facility] Blood Capillary blood specimen / Unknown 08/25/2025 5:02 AM EDT 08/25/2025 5:04 AM EDT us Alvaro Adrian DMD, MD LAB POINT OF CA RE TEST DOCKED DEVICE UNSOLICITED RESULTS Final Result Performing Organization Address City/[facility]/ZIP Co de Phone Number [facility] [address] [place] [address] * (ABNORMAL) POCT glucose meter (08/24/2025 11:06 [...] Comment 08/24/2025 11:08 PM EDT [facility] Informal Waiter/Waitress ID Hailey Lund 08/24/2025 11:08 PM EDT [facility] Device ID [id number] 08/24/2025 11:08 PM EDT [facility] Specimen Type POC Capillary 08/24/2025 11:08 PM EDT [facility] Blood Capillary blood specimen / Unknown 08/24/2025 11:06 PM EDT 08/24/2025 11:08 PM EDT us Alvaro Adrian DMD, MD LAB POINT OF CA RE TEST DOCKED DEVICE UNSOLICITED RESULTS Final Result Performing Organization Address City/[facility]/ZIP Co de Phone Number [facility] [address] [place] [address] * (ABNORMAL) POCT glucose meter (08/24/2025 5:33 [...] 08/24/2025 5:35 PM EDT [facility] Informal Waiter/Waitress ID Renee Mills 08/24/2025 5:35 PM EDT [facility] Device ID [id number] 08/24/2025 5:35 PM EDT [facility] Specimen Type POC Capillary 08/24/2025 5:35 PM EDT [facility] Blood Capillary blood specimen / Unknown 08/24/2025 5:33 PM EDT 08/24/2025 5:35 PM EDT Alvaro Adrian DMD, MD LAB POINT OF CA RE TEST DOCKED DEVICE UNSOLICITED RESULTS Final Result Performing Organization Address City/State/[facility] Co de Phone Number [facility] [address] [place] [address] * (ABNORMAL) POCT glucose meter (08/24/2025 12:32 PM EDT) [facility] POCT Glucose 117(H) 74 - 99 mg/dL [...] 08/24/2025 12:38 PM EDT [facility] Informal Waiter/Waitress ID Renee Mills 08/24/2025 12:38 PM EDT [facility] LAB Device ID [id number] 08/24/2025 12:38 PM EDT [facility] Specimen Type POC Capillary 08/24/2025 12:38 PM EDT [facility] Blood Capillary blood specimen / Unknown 08/24/2025 12:32 PM EDT 08/24/2025 12:38 PM EDT Alvaro Adrian DMD, MD LAB POINT OF CA RE TEST DOCKED DEVICE UNSOLICITED RESULTS Final Result Performing Organization Address City/[facility] Co de Phone Number [facility] [address] [place] [address] * POCT glucose meter (08/24/2025 5:57 AM [...] Comment 08/24/2025 5:59 AM EDT [facility] Informal Waiter/Waitress ID Morenita Lizama 025 5:59 AM EDT [facility] LAB Device ID [id number] 08/24/2025 5:59 AM EDT [facility] Specimen Type POC Capillary 08/24/2025 5:59 AM EDT [facility] Blood Capillary blood specimen / Unknown 08/24/2025 5:57 AM EDT 08/24/2025 5:59 AM EDT Alvaro Adrian DMD, MD LAB POINT OF CA RE TEST DOCKED DEVICE UNSOLICITED RESULTS Final Result Performing Organization Address City/[facility] Co de Phone Number [facility] [address] [place] [address] * (ABNORMAL) CBC W/O Differential (08/24/2025 3:29 AM EDT) WBC Count 10.15 3.70 - 10.30 10*3/uL LAB HEMATOLOGY METHOD 08/24/2025 4:13 AM EDT [facility] RBC Count 2.95(L) 4.60 - 6.10 10*6/uL LAB HEMATOLOGY METHOD 08/24/2025 4:13 AM EDT [facility] HGB 9.1(L) 13.7 - 17.5 g/dL LAB HEMATOLOGY METHOD 08/24/2025 4:13 AM EDT [facility] HCT 27.7(L) 40.0 - 51.0 % LAB HEMATOLOGY METHOD 08/24/2025 4:13 AM EDT [facility] Platelet Count 381(H) 155 - 369 10*3/uL LAB HEMATOLOGY METHOD 08/24/2025 4:13 AM EDT [facility] MCV 94 79 - 98 fL LAB HEMATOLOGY METHOD 08/24/2025 4:13 AM EDT [facility] MCH 30.8 26.0 - 32.0 pg LAB HEMATOLOGY METHOD 08/24/2025 4:13 AM EDT [facility] MCHC 32.9 30.7 - 35.5 g/dL LAB HEMATOLOGY METHOD 08/24/2025 4:13 AM EDT [facility] RDW 12.4 11.5 - 14.5 % LAB HEMATOLOGY METHOD 08/24/2025 4:13 AM EDT [facility] MPV 9.4 8.8 - 12.5 fL LAB HEMATOLOGY METHOD 08/24/2025 4:13 AM EDT [facility] nRBC 0.0 <=0.0 per 100 WBCs LAB HEMATOLOGY METHOD 08/24/2025 4:13 AM EDT [facility] Blood Venous blood specimen / Unknown Venipuncture / Unknown 08/24/2025 3:29 AM EDT 08/24/2025 4:01 AM EDT us Alvaro Adrian DMD, MD LAB BLOOD ORDERABLES Fi nal Result [facility] [address] [place] [address] * (ABNORMAL) Basic Metabolic Panel, Plasma (08/24/2025 3:29 AM EDT) Pathologist [facility] Glucose, Plasma 107(H) 74 - 99 mg/dL 08/24/2025 4:28 AM EDT [facility] BUN, Plasma 17 7 - 21 mg/dL 08/24/2025 4:28 AM EDT [facility] Creatinine, Plasma 0.59(L) 0.70 - 1.20 mg/dL 08/24/2025 4:28 AM EDT [facility] BUN/Creatinine Ratio 29 08/24/2025 4:28 AM EDT [facility] Sodium, Plasma 137 136 - 145 mmol/L 08/24/2025 4:28 AM EDT [facility] Potassium, Plasma 3.9 3.6 - 4.9 mmol/L 08/24/2025 4:28 AM EDT [facility] Chloride, Plasma 101 97 - 107 mmol/L 08/24/2025 4:28 AM EDT [facility] CO2, Plasma 27 22 - 29 mmol/L 08/24/2025 4:28 AM EDT [facility] Anion Gap 9 6 - 16 mmol/L 08/24/2025 4:28 AM EDT [facility] Total Calcium, Plasma 8.8(L) 8.9 - 10.2 mg/dL 08/24/2025 4:28 AM EDT [facility] eGFRcr 116.7 mL/min/1.7 3m*2 08/24/2025 4:28 AM EDT [facility] Comment:Reported eGFRcr in m L/min/1.73m2 is based the CKD-EPI 2020 equation that does not use a race coefficient. Blood Venous blood specimen / Unknown Venipuncture / Unknown 08/24/2025 3:29 AM EDT 08/24/2025 3:59 AM EDT us Alvaro Adrian DMD, MD LAB BLOOD ORDERABLES Fi nal Result [facility] [address] [place] [address] * Magnesium, Plasma (08/24/2025 3:29 AM EDT) Magnesium, Plasma 2.0 1.9 - 2.4 mg/dL 08/24/2025 4:28 AM EDT [facility] Blood Venous blood specimen / Unknown Venipuncture / Unknown 08/24/2025 3:29 AM EDT 08/24/2025 3:59 AM EDT us Alvaro Adrian DMD, MD LAB BLOOD ORDERABLES Fi nal Result Performing Organization Address City/[facility] Co de Phone Number [facility] [address] [place] [address] * Phosphorus, Plasma (08/24/2025 3:29 AM EDT) [facility] Phosphorus, Plasma 3.7 2.5 - 4.5 mg/dL 08/24/2025 4:28 AM EDT [facility] Blood Venous blood specimen / Unknown Venipuncture / Unknown 08/24/2025 3:29 AM EDT 08/24/2025 3:59 AM EDT us Alvaro Adrian DMD, MD LAB BLOOD ORDERABLES Fi nal Result Performing Organization Address [facility] Phone Number [facility] [address] [place] [address] * (ABNORMAL) POCT glucose meter (08/24/2025 12:46 AM EDT) [facility] POCT Glucose 126(H) 74 - 99 mg/dL [...] 08/24/2025 12:48 AM EDT [facility] Informal Waiter/Waitress ID Morenita Lizama 025 12:48 AM EDT [facility] Device ID [id number] 08/24/2025 12:48 AM EDT [facility] Specimen Type POC Capillary 08/24/2025 12:48 AM EDT [facility] Blood Capillary blood specimen / Unknown 08/24/2025 12:46 AM EDT 08/24/2025 12:48 AM EDT us Alvaro Adrian DMD, MD LAB POINT OF CA RE TEST DOCKED DEVICE UNSOLICITED RESULTS Final Result Performing Organization Address City/[facility]/ZIP Co de Phone Number [facility] [address] [place] [address] * POCT glucose meter (08/23/2025 6:45 PM EDT) [facility] POCT Glucose 83 74 - 99 mg/dL [...] 08/23/2025 6:47 PM EDT [facility] Informal Waiter/Waitress ID Nicole Doss 08/23/2025 6:47 PM EDT [facility] Device ID [id number] 08/23/2025 6:47 PM EDT [facility] Specimen Type POC Capillary 08/23/2025 6:47 PM EDT [facility] Blood Capillary blood specimen / Unknown 08/23/2025 6:45 PM EDT 08/23/2025 6:47 PM EDT Alvaro Adrian DMD, MD LAB POINT OF CA RE TEST DOCKED DEVICE UNSOLICITED RESULTS Final Result [facility] [address] [place] [address] * POCT glucose meter (08/23/2025 1:07 PM EDT) [facility] POCT Glucose 98 74 - 99 mg/dL [...] 08/23/2025 1:10 PM EDT [facility] Informal Waiter/Waitress ID SelamNicole 08/23/2025 1:10 PM EDT [facility] Device ID [id number] 08/23/2025 1:10 PM EDT [facility] Specimen Type POC Capillary 08/23/2025 1:10 PM EDT [facility] Blood Capillary blood specimen / Unknown 08/23/2025 1:07 PM EDT 08/23/2025 1:10 PM EDT Alvaro Adrian DMD, MD LAB POINT OF CA RE TEST DOCKED DEVICE UNSOLICITED RESULTS Final Result [facility] [address] [place] [id number] * (ABNORMAL) CBC W/O Differential (08/23/2025 3:26 AM EDT) WBC Count 10.09 3.70 - 10.30 10*3/uL LAB HEMATOLOGY METHOD 08/23/2025 3:45 AM EDT [facility] RBC Count 3.11(L) 4.60 - 6.10 10*6/uL LAB HEMATOLOGY METHOD 08/23/2025 3:45 AM EDT [facility] HGB 9.5(L) 13.7 - 17.5 g/dL LAB HEMATOLOGY METHOD 08/23/2025 3:45 AM EDT [facility] HCT 29.1(L) 40.0 - 51.0 % LAB HEMATOLOGY METHOD 08/23/2025 3:45 AM EDT [facility] Platelet Count 326 155 - 369 10*3/uL LAB HEMATOLOGY METHOD 08/23/2025 3:45 AM EDT [facility] MCV 94 79 - 98 fL LAB HEMATOLOGY METHOD 08/23/2025 3:45 AM EDT [facility] MCH 30.5 26.0 - 32.0 pg LAB HEMATOLOGY METHOD 08/23/2025 3:45 AM EDT [facility] MCHC 32.6 30.7 - 35.5 g/dL LAB HEMATOLOGY METHOD 08/23/2025 3:45 AM EDT [facility] RDW 12.6 11.5 - 14.5 % LAB HEMATOLOGY METHOD 08/23/2025 3:45 AM EDT [facility] MPV 9.5 8.8 - 12.5 fL LAB HEMATOLOGY METHOD 08/23/2025 3:45 AM EDT [facility] nRBC 0.0 <=0.0 per 100 WBCs LAB HEMATOLOGY METHOD 08/23/2025 3:45 AM EDT [facility] Blood Venous blood specimen / Unknown Venipuncture / Unknown 08/23/2025 3:26 AM EDT 08/23/2025 3:34 AM EDT us Alvaro Adrian DMD, MD LAB BLOOD ORDERABLES Fi nal Result [facility] [address] [place] [address] * (ABNORMAL) Basic Metabolic Panel, Plasma (08/23/2025 3:26 AM EDT) Glucose, Plasma 100(H) 74 - 99 mg/dL 08/23/2025 4:07 AM EDT [facility] BUN, Plasma 15 7 - 21 mg/dL 08/23/2025 4:07 AM EDT [facility] Creatinine, Plasma 0.58(L) 0.70 - 1.20 mg/dL 08/23/2025 4:07 AM EDT [facility] BUN/Creatinine Ratio 26 08/23/2025 4:07 AM EDT [facility] Sodium, Plasma 137 136 - 145 mmol/L 08/23/2025 4:07 AM EDT [facility] Potassium, Plasma 4.0 3.6 - 4.9 mmol/L 08/23/2025 4:07 AM EDT [facility] Chloride, Plasma 102 97 - 107 mmol/L 08/23/2025 4:07 AM EDT [facility] CO2, Plasma 25 22 - 29 mmol/L 08/23/2025 4:07 AM EDT [facility] Anion Gap 10 6 - 16 mmol/L 08/23/2025 4:07 AM EDT [facility] Total Calcium, Plasma 8.7(L) 8.9 - 10.2 mg/dL 08/23/2025 4:07 AM EDT [facility] eGFRcr 117.3 mL/min/1.7 3m*2 08/23/2025 4:07 AM EDT [facility] Comment:Reported eGFRcr in m L/min/1.73m2 is based the CKD-EPI 2020 equation that does not use a race coefficient. Blood Venous blood specimen / Unknown Venipuncture / Unknown 08/23/2025 3:26 AM EDT 08/23/2025 3:35 AM EDT us Alvaro Adrian DMD, MD LAB BLOOD ORDERABLES Fi nal Result Performing Organization Address City/[facility]/ZIP Co de Phone Number [facility] [address] [place] [address] * Magnesium, Plasma (08/23/2025 3:26 AM EDT) Magnesium, Plasma 2.0 1.9 - 2.4 mg/dL 08/23/2025 4:07 AM EDT [facility] Blood Venous blood specimen / Unknown Venipuncture / Unknown 08/23/2025 3:26 AM EDT 08/23/2025 3:35 AM EDT us Alvaro Adrian DMD, MD LAB BLOOD ORDERABLES Fi nal Result Performing Organization Address City/[facility] Co de Phone Number [facility] [address] [place] [address] * Phosphorus, Plasma (08/23/2025 3:26 AM EDT) Phosphorus, Plasma 3.3 2.5 - 4.5 mg/dL 08/23/2025 4:07 AM EDT [facility] Blood Venous blood specimen / Unknown Venipuncture / Unknown 08/23/2025 3:26 AM EDT 08/23/2025 3:35 AM EDT us Alvaro Adrian DMD, MD LAB BLOOD ORDERABLES Fi nal Result Performing Organization Address City/[facility]/ZIP Co de Phone Number [facility] [address] [place] [address] * Phosphorus (08/22/2025 5:02 AM EDT) Phosphorus, Plasma 3.1 2.5 - 4.5 mg/dL 08/22/2025 6:09 AM EDT [facility] Blood Venous blood specimen / Unknown Venipuncture / Unknown 08/22/2025 5:02 AM EDT 08/22/2025 5:33 AM EDT Marvin Santana MD LAB BLOOD ORDERABLES Fin al Result Performing Organization Address City/[facility]/ZIP Co de Phone Number [facility] [address] [place] [address] * Magnesium (08/22/2025 5:02 AM EDT) Magnesium, Plasma 2.0 1.9 - 2.4 mg/dL 08/22/2025 6:09 AM EDT [facility] Blood Venous blood specimen / Unknown Venipuncture / Unknown 08/22/2025 5:02 AM EDT 08/22/2025 5:33 AM EDT Marvin Santana MD LAB BLOOD ORDERABLES Fin al Result Performing Organization Address City/[facility]/ZIP Co de Phone Number [facility] [address] [place] [address] * (ABNORMAL) Basic metabolic panel (08/22/2025 5:02 AM EDT) Glucose, Plasma 95 74 - 99 mg/dL 08/22/2025 6:09 AM EDT [facility] BUN, Plasma 15 7 - 21 mg/dL 08/22/2025 6:09 AM EDT [facility] Creatinine, Plasma 0.52(L) 0.70 - 1.20 mg/dL 08/22/2025 6:09 AM EDT [facility] BUN/Creatinine Ratio 29 08/22/2025 6:09 AM EDT [facility] Sodium, Plasma 139 136 - 145 mmol/L 08/22/2025 6:09 AM EDT [facility] Potassium, Plasma 3.8 3.6 - 4.9 mmol/L 08/22/2025 6:09 AM EDT [facility] Chloride, Plasma 102 97 - 107 mmol/L 08/22/2025 6:09 AM EDT [facility] CO2, Plasma 27 22 - 29 mmol/L 08/22/2025 6:09 AM EDT [facility] Anion Gap 10 6 - 16 mmol/L 08/22/2025 6:09 AM EDT [facility] Total Calcium, Plasma 8.8(L) 8.9 - 10.2 mg/dL 08/22/2025 6:09 AM EDT [facility] eGFRcr 121.3 mL/min/1.7 3m*2 08/22/2025 6:09 AM EDT [facility] Comment:Reported eGFRcr in m L/min/1.73m2 is based the CKD-EPI 2020 equation that does not use a race coefficient. Blood Venous blood specimen / Unknown Venipuncture / Unknown 08/22/2025 5:02 AM EDT 08/22/2025 5:33 AM EDT us Marvin Santana MD LAB BLOOD ORDERABLES Fin al Result [facility] [address] [place] [address] * (ABNORMAL) CBC W/O Differential (08/22/2025 5:02 AM EDT) WBC Count 11.20(H) 3.70 - 10.30 10*3/uL LAB HEMATOLOGY METHOD 08/22/2025 5:44 AM EDT [facility] RBC Count 3.19(L) 4.60 - 6.10 10*6/uL LAB HEMATOLOGY METHOD 08/22/2025 5:44 AM EDT [facility] HGB 9.8(L) 13.7 - 17.5 g/dL LAB HEMATOLOGY METHOD 08/22/2025 5:44 AM EDT [facility] HCT 29.6(L) 40.0 - 51.0 % LAB HEMATOLOGY METHOD 08/22/2025 5:44 AM EDT [facility] Platelet Count 271 155 - 369 10*3/uL LAB HEMATOLOGY METHOD 08/22/2025 5:44 AM EDT [facility] MCV 93 79 - 98 fL LAB HEMATOLOGY METHOD 08/22/2025 5:44 AM EDT [facility] MCH 30.7 26.0 - 32.0 pg LAB HEMATOLOGY METHOD 08/22/2025 5:44 AM EDT [facility] MCHC 33.1 30.7 - 35.5 g/dL LAB HEMATOLOGY METHOD 08/22/2025 5:44 AM EDT [facility] RDW 12.6 11.5 - 14.5 % LAB HEMATOLOGY METHOD 08/22/2025 5:44 AM EDT [facility] MPV 9.5 8.8 - 12.5 fL LAB HEMATOLOGY METHOD 08/22/2025 5:44 AM EDT [facility] nRBC 0.0 <=0.0 per 100 WBCs LAB HEMATOLOGY METHOD 08/22/2025 5:44 AM EDT [facility] Blood Venous blood specimen / Unknown Venipuncture / Unknown 08/22/2025 5:02 AM EDT 08/22/2025 5:32 AM EDT us Marvin Santana MD LAB BLOOD ORDERABLES Fin al Result [facility] [address] [place] [address] * (ABNORMAL) CBC W/O Differential (08/20/2025 5:56 AM EDT) WBC Count 16.03(H) 3.70 - 10.30 10*3/uL LAB HEMATOLOGY METHOD 08/20/2025 6:17 AM EDT [facility] RBC Count 3.46(L) 4.60 - 6.10 10*6/uL LAB HEMATOLOGY METHOD 08/20/2025 6:17 AM EDT [facility] HGB 10.8(L) 13.7 - 17.5 g/dL LAB HEMATOLOGY METHOD 08/20/2025 6:17 AM EDT [facility] HCT 31.2(L) 40.0 - 51.0 % LAB HEMATOLOGY METHOD 08/20/2025 6:17 AM EDT [facility] Platelet Count 290 155 - 369 10*3/uL LAB HEMATOLOGY METHOD 08/20/2025 6:17 AM EDT [facility] MCV 90 79 - 98 fL LAB HEMATOLOGY METHOD 08/20/2025 6:17 AM EDT [facility] MCH 31.2 26.0 - 32.0 pg LAB HEMATOLOGY METHOD 08/20/2025 6:17 AM EDT [facility] MCHC 34.6 30.7 - 35.5 g/dL LAB HEMATOLOGY METHOD 08/20/2025 6:17 AM EDT [facility] RDW 12.6 11.5 - 14.5 % LAB HEMATOLOGY METHOD 08/20/2025 6:17 AM EDT [facility] MPV 9.7 8.8 - 12.5 fL LAB HEMATOLOGY METHOD 08/20/2025 6:17 AM EDT [facility] nRBC 0.0 <=0.0 per 100 WBCs LAB HEMATOLOGY METHOD 08/20/2025 6:17 AM EDT [facility] Blood Venous blood specimen / Unknown Venipuncture / Unknown 08/20/2025 5:56 AM EDT 08/20/2025 6:09 AM EDT us Marvin Santana MD LAB BLOOD ORDERABLES Fin al Result [facility] [address] [place] [address] * (ABNORMAL) Basic Metabolic Panel, Plasma (08/20/2025 5:56 AM EDT) Glucose, Plasma 140(H) 74 - 99 mg/dL 08/20/2025 6:39 AM EDT [facility] BUN, Plasma 16 7 - 21 mg/dL 08/20/2025 6:39 AM EDT [facility] Creatinine, Plasma 0.64(L) 0.70 - 1.20 mg/dL 08/20/2025 6:39 AM EDT [facility] BUN/Creatinine Ratio 25 08/20/2025 6:39 AM EDT [facility] Sodium, Plasma 136 136 - 145 mmol/L 08/20/2025 6:39 AM EDT [facility] Potassium, Plasma 5.2(H) 3.6 - 4.9 mmol/L 08/20/2025 6:39 AM EDT [facility] Comment:Hemolyzed, result ma y be falsely increased. Chloride, Plasma 101 97 - 107 mmol/L 08/20/2025 6:39 AM EDT [facility] CO2, Plasma 23 22 - 29 mmol/L 08/20/2025 6:39 AM EDT [facility] Anion Gap 12 6 - 16 mmol/L 08/20/2025 6:39 AM EDT [facility] Total Calcium, Plasma 8.6(L) 8.9 - 10.2 mg/dL 08/20/2025 6:39 AM EDT [facility] eGFRcr 113.9 mL/min/1.7 3m*2 08/20/2025 6:39 AM EDT [facility] Comment:Reported eGFRcr in m L/min/1.73m2 is based the CKD-EPI 2020 equation that does not use a race coefficient. Blood Venous blood specimen / Unknown Venipuncture / Unknown 08/20/2025 5:56 AM EDT 08/20/2025 6:08 AM EDT us Marvin Santana MD LAB BLOOD ORDERABLES Fin al Result Performing Organization Address City/[facility]/ZIP Co de Phone Number [facility] [address] [place] [address] * (ABNORMAL) Magnesium, Plasma (08/20/2025 5:56 AM EDT) Magnesium, Plasma 1.8(L) 1.9 - 2.4 mg/dL 08/20/2025 6:39 AM EDT [facility] Blood Venous blood specimen / Unknown Venipuncture / Unknown 08/20/2025 5:56 AM EDT 08/20/2025 6:08 AM EDT Marvin Santana MD LAB BLOOD ORDERABLES Fin al Result [facility] [address] [place] [address] * Phosphorus, Plasma (08/20/2025 5:56 AM EDT) Phosphorus, Plasma 3.2 2.5 - 4.5 mg/dL 08/20/2025 6:39 AM EDT [facility] Blood Venous blood specimen / Unknown Venipuncture / Unknown 08/20/2025 5:56 AM EDT 08/20/2025 6:08 AM EDT us Marvin Santana MD LAB BLOOD ORDERABLES Fin al Result [facility] [address] [place] [address] * XR Abdomen 1 View (08/19/2025 8:37 [...] of the abdomen. COMPARISON: None. FINDINGS: Limited [id number] abdominal radiograph for the purpose of locating tube position. The tip of the feeding tube is within the proximal stomach. Procedure Note Patricio Trevino MD - 08/19/2025 CLINICAL INDICATION: DHT placement TECHNIQUE: Supine radiograph of the abdomen. COMPARISON: None. FINDINGS: Limited [id number] abdominal radiograph for the purpose of locatingtube [...] at day 1 08/21/2025 7:33 AM EDT [facility] Swab (Nares and Nini Rectal) Non-blood Collection / Unknown 08/19/2025 8:19 PM EDT 08/19/2025 8:30 PM EDT Narrative [facility] - 08/21/2025 7:33 AM EDT This test was developed and its performance characteristics determined by the [facility]. Although the media is FDA-approved, it is not FDA-approved for all specimen types submitted. The FDA has determined that such clearance or approval is not necessary. This test is used for surveillance purposes. It should not be regarded as investigational or for research. The [facility] is certified under the Clinical Laboratory Improvement Amendments of 1988 (CLIA-88) as qualified to perform high complexity clinical laboratory testing. Marvin Santana MD LAB MICROBIOLOGY - GENER AL ORDERABLES Final Result Performing Organization Address [facility] [place] [address] * Cecelia auris Surveillance by PCR (08/19/2025 8:19 PM EDT) Cecelia auris PCR Result Not Detected Not Detected 08/21/2025 10:33 AM EDT [facility] Swab (Axilla and Groin) Non-blood Collection / Unknown 08/19/2025 8:19 PM EDT 08/19/2025 8:30 PM EDT Narrative [facility] - 08/21/2025 10:33 AM EDT This PCR assay was developed and its performance characteristics determined by [facility] as appropriate for clinical purposes. This assay has not been cleared or approved by the FDA, but is performed in a CLIA regulated laboratory that is qualified to perform high-complexity testing. Marvin Santana MD LAB MICROBIOLOGY - GENER AL ORDERABLES Final Result Performing Organization Address [facility]/[place] [address] * (ABNORMAL) Blood gas, arterial (08/19/2025 12:23 PM EDT) pH, Arterial 7.38 7.35 - 7.45 LAB HEMATOLOGY METHOD 08/19/2025 12:40 PM EDT [facility] pCO2, Arterial 42 32 - 45 mmHg LAB HEMATOLOGY METHOD 08/19/2025 12:40 PM EDT [facility] pO2, Arterial 107 83 - 108 mmHg LAB HEMATOLOGY METHOD 08/19/2025 12:40 PM EDT [facility] SO2, Measured, Arterial 99(H) 94 - 98 % LAB HEMATOLOGY METHOD 08/19/2025 12:40 PM EDT [facility] Base Excess, Arterial -0.8 -2.0 - 3.0 mmol/L LAB HEMATOLOGY METHOD 08/19/2025 12:40 PM EDT [facility] Bicarbonate, Calculated, Arterial 24 22 - 26 mmol/L LAB HEMATOLOGY METHOD 08/19/2025 12:40 PM EDT [facility] Hematocrit, Whole Blood 38.9(L) 40.0 - 51.0 % LAB HEMATOLOGY METHOD 08/19/2025 12:40 PM EDT [facility] Sodium, Whole Blood 138 136 - 145 mmol/L LAB HEMATOLOGY METHOD 08/19/2025 12:40 PM EDT [facility] Potassium, Whole Blood 3.7 3.6 - 4.9 mmol/L LAB HEMATOLOGY METHOD 08/19/2025 12:40 PM EDT [facility] Chloride, Whole Blood 105 97 - 107 mmol/L LAB HEMATOLOGY METHOD 08/19/2025 12:40 PM EDT [facility] Glucose, Whole Blood 146(H) 74 - 99 mg/dL LAB HEMATOLOGY METHOD 08/19/2025 12:40 PM EDT [facility] Ionized Calcium, Whole Blood 4.5(L) 4.6 - 5.1 mg/dL LAB HEMATOLOGY METHOD 08/19/2025 12:40 PM EDT [facility] Lactate, Arterial, Whole Blood 1.0 0.5 - 1.6 mmol/L LAB HEMATOLOGY METHOD 08/19/2025 12:40 PM EDT [facility] Blood Arterial blood specimen / Unknown 08/19/2025 12:23 PM EDT 08/19/2025 12:33 PM EDT 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] us Kenneth Benavides [employer] LAB BLOOD ORDERABLES Final Result [facility] [address] [place] [id number] * Surgical Pathology Exam (08/19/2025 10:32 AM EDT) Case Report Surgical Pathology Case: [id number] Authorizing Provider: Marvin Santana MD Collected: 08/19/2025 0917 Ordering Location: [facility] A OPERATING ROOM Received: 08/19/2025 1334 Pathologist: Timothy Chacon MD Intraop: Nabila Hendrickson [...] fresh for permanent 08/28/2025 11:21 AM EDT [facility] Addendum This addendum is to document the provided clinical history. There is no change in the final diagnosis. Floor of mouth squamous cell carcinoma 08/28/2025 11:21 AM EDT [facility] Addendum electronically signed by Ellen [...] FOR CARCINOMA (0/20) 08/28/2025 11:21 AM EDT [facility] at 1949 EDT Comment:This is [...] in part L. 08/28/2025 11:21 AM EDT [facility] Comment:This is an appended report. [...] pN Category: pN1 08/28/2025 11:21 AM EDT [facility] Clinical Information No Dx Found. 08/28/2025 11:21 AM EDT [facility] Comment:This is an appended report. [...] TUMOR IDENTIFIED. NO 08/28/2025 11:21 AM EDT [facility] Comment:Corrected result: Pr eviously reported [...] a robin-white, papillary, irregularly-shap ed 2.4 cm (anterior-analysis lead ior) by 1.9 (superior-inferi or) lesion that appears to abut the posterior and inferior margins. Gross photographs both pre ink and inked are provided. Ink code: Blue-anterior Red-superior Green-inferior Black-posterior Kidder-medial Uninked (with lesion)-lateral Specimen is serially sectioned [...] fresh, placed in formalin labeled cascade medical centert level 1A and consists of a 4.3 [...] of left brandyn mandibulectomy measuring 10.0 cm (anterior-analysis lead ior) x 4.6 cm (left-right) x 3.5 cm (superior-inferi or) with an attached ramus measuring 6.2 cm (superior-inferi or) x 0.6 cm (left-right) x 1.3 cm (anterior-analysis lead ior). The specimen is oriented by a short-short stitch on the lateral soft tissue, a long-short stitch on the anterior soft tissue and a long-long stitch on the medial soft tissue. The attached medial soft tissue measures 3.4 (left-right) by 8.4 (anterior-analysis lead ior) by 2.0 (superior-inferi or), and is [...] and the gingiva there is a 3.4 (anterior-analysis lead ior by 1.8 (superior-inferi or by 0.8 [...] no other interosseous lesions are grossly noted [employer] sections are submitted as follows: L1: Anterior mucosal and soft tissue margin L2: Lateral mucosal and soft tissue margin L3: Medial mucosal and soft tissue margin L4: Posterior mucosal and soft tissue margin L5: Inferior soft tissue margin L6: Mass 2 L7-L9: Mass 1, deepest bone invasion in L9 L10: Mandibular interosseous lesion L11: Softened bone adjacent to lesion L12: [employer] sample of lesion Cold Time: 0 Marvel [...] 0 Marvel Herrera MD 08/28/2025 11:21 AM [facility] Comment:This is an appended report. These results have been appended to a previously preliminary verified report. Note: A resident was involved in the service. I attest I examined the relevant preparations for the specimens and confirmed the diagnosis or interpretation. 08/28/2025 11:21 AM [facility] Comment:This is an appended report. [...] PATHOLOGY ORDERABLE S Edited Result - Final [facility] [address] [place] [address] * Surgical Pathology Exam (08/19/2025 9:17 AM EDT) Case Report Surgical Pathology Case: [id number] Authorizing Provider: Marvin Santana MD Collected: 08/19/2025 0917 Ordering Location: [facility] A OPERATING ROOM Received: 08/19/2025 1337 Pathologist: Timothy Chacon MD Intraop: Nabila Hendrickson [...] fresh for permanent 08/28/2025 11:21 AM EDT [facility] Addendum This addendum is to document the provided clinical history. There is no change in the final diagnosis. Floor of mouth squamous cell carcinoma 08/28/2025 11:21 AM EDT [facility] Addendum electronically signed by Ellen [...] FOR CARCINOMA (0/20) 08/28/2025 11:21 AM T [facility] at 1949 EDT Comment:This is [...] in part L. 08/28/2025 11:21 AM T [facility] Comment:This is an appended report. [...] pN Category: pN1 08/28/2025 11:21 AM EDT [facility] Clinical Information No Dx Found. 08/28/2025 11:21 AM EDT [facility] Comment:This is an appended report. [...] TUMOR IDENTIFIED. NO 08/28/2025 11:21 AM EDT [facility] Comment:Corrected result: Pr eviously reported [...] a robin-white, papillary, irregularly-shap ed 2.4 cm (anterior-analysis lead ior) by 1.9 (superior-inferi or) lesion that appears to abut the posterior and inferior margins. Gross photographs both pre ink and inked are provided. Ink code: Blue-anterior Red-superior Green-inferior Black-posterior Kidder-medial Uninked (with lesion)-lateral Specimen is serially sectioned [...] fresh, placed in formalin labeled cascade medical centert level 1A and consists of a 4.3 [...] of left brandyn mandibulectomy measuring 10.0 cm (anterior-analysis lead ior) x 4.6 cm (left-right) x 3.5 cm (superior-inferi or) with an attached ramus measuring 6.2 cm (superior-inferi or) x 0.6 cm (left-right) x 1.3 cm (anterior-analysis lead ior). The specimen is oriented by a short-short stitch on the lateral soft tissue, a long-short stitch on the anterior soft tissue and a long-long stitch on the medial soft tissue. The attached medial soft tissue measures 3.4 (left-right) by 8.4 (anterior-analysis lead ior) by 2.0 (superior-inferi or), and is [...] and the gingiva there is a 3.4 (anterior-analysis lead ior by 1.8 (superior-inferi or by 0.8 [...] no other interosseous lesions are grossly noted [employer] sections are submitted as follows: L1: Anterior mucosal and soft tissue margin L2: Lateral mucosal and soft tissue margin L3: Medial mucosal and soft tissue margin L4: Posterior mucosal and soft tissue margin L5: Inferior soft tissue margin L6: Mass 2 L7-L9: Mass 1, deepest bone invasion in L9 L10: Mandibular interosseous lesion L11: Softened bone adjacent to lesion L12: Food Production Associate sample of lesion Cold Time: 0 Marvel [...] Marvel Herrera MD 08/28/2025 11:21 AM EDT [facility] Comment:This is an appended report. These results have been appended to a previously preliminary verified report. Note: A resident was involved in the service. I attest I examined the relevant preparations for the specimens and confirmed the diagnosis or interpretation. 08/28/2025 11:21 AM EDT [facility] Comment:This is an appended report. [...] LAB PATHOLOGY ORDERABLES Edited Result - Final [facility] [address] [place] [address] * (ABNORMAL) Blood gas, arterial (08/19/2025 9:07 AM EDT) pH, Arterial 7.38 7.35 - 7.45 LAB HEMATOLOGY METHOD 08/19/2025 9:16 AM EDT [facility] pCO2, Arterial 44 32 - 45 mmHg LAB HEMATOLOGY METHOD 08/19/2025 9:16 AM EDT [facility] pO2, Arterial 195(H) 83 - 108 mmHg LAB HEMATOLOGY METHOD 08/19/2025 9:16 AM EDT [facility] SO2, Measured, Arterial 100(H) 94 - 98 % LAB HEMATOLOGY METHOD 08/19/2025 9:16 AM EDT [facility] Base Excess, Arterial 0.7 -2.0 - 3.0 mmol/L LAB HEMATOLOGY METHOD 08/19/2025 9:16 AM EDT [facility] Bicarbonate, Calculated, Arterial 26 22 - 26 mmol/L LAB HEMATOLOGY METHOD 08/19/2025 9:16 AM EDT [facility] Hematocrit, Whole Blood 36.2(L) 40.0 - 51.0 % LAB HEMATOLOGY METHOD 08/19/2025 9:16 AM EDT [facility] Sodium, Whole Blood 141 136 - 145 mmol/L LAB HEMATOLOGY METHOD 08/19/2025 9:16 AM EDT [facility] Potassium, Whole Blood 3.7 3.6 - 4.9 mmol/L LAB HEMATOLOGY METHOD 08/19/2025 9:16 AM EDT [facility] Chloride, Whole Blood 107 97 - 107 mmol/L LAB HEMATOLOGY METHOD 08/19/2025 9:16 AM EDT [facility] Glucose, Whole Blood 99 74 - 99 mg/dL LAB HEMATOLOGY METHOD 08/19/2025 9:16 AM EDT [facility] Ionized Calcium, Whole Blood 4.7 4.6 - 5.1 mg/dL LAB HEMATOLOGY METHOD 08/19/2025 9:16 AM EDT [facility] Lactate, Arterial, Whole Blood 1.1 0.5 - 1.6 mmol/L LAB HEMATOLOGY METHOD 08/19/2025 9:16 AM EDT [facility] Blood Arterial blood specimen / Unknown Arterial Puncture / Unknown 08/19/2025 9:07 AM EDT 08/19/2025 9:14 AM EDT us Kenneth Benavides CRNA LAB BLOOD ORDERABLES Final Result Performing Organization Address City/[facility]/ZIP Co de Phone Number [facility] [address] [place] [address] * Type and Screen (08/19/2025 7:05 AM [...] ORD ERABLES Final Result Performing Organization Address City/[facility]/ZIP Co de Phone Number BLOOD BANK [address] [place] [address], documented in this encounter Visit Diagnoses Diagnosis 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 Malignant neoplasm of floor of mouth, part unspecified Floor of mouth squamous cell carcinoma Malignant neoplasm of floor of mouth, part unspecified Squamous cell carcinoma of mandible Wound of right lower extremity, initial encounter Hypertension, unspecified type 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 Malignant neoplasm of floor of mouth, part unspecified documented in this encounter Admitting Diagnoses Diagnosis [...] Given 08/29/2025 9:55 PM EDT 1,000 mg aspirin chewable tablet 324 mg 324 mg, [...] Given 08/28/2025 8:58 AM EDT 20 mg bisacodyl (Dulcolax) suppository 10 mg 10 mg, Rectal, Once as needed, 1 dose, Starting on Tue08/27/25 at 0820, Until Tue08/30/25 at 1753, Routine, constipation chlorhexidine (Peridex) 0.12 % solution As needed, Starting on Tue08/19/25 at 1212, Until Tue08/19/25 at 1811, Routine, Intraprocedure Given 08/19/2025 12:12 PM EDT 30 mL esomeprazole (NexIUM) packet for suspension 40 mg 40 mg, Nasogastric, Daily, First dose on Tue08/22/25 at 0900, Until Discontinued Given 08/30/2025 8:20 AM EDT 40 mg Given 08/29/2025 9:19 AM EDT 40 mg Given 08/28/2025 8:58 AM EDT 40 mg gabapentin (Neurontin) capsule 300 mg 300 mg, Nasogastric, 3 times daily, First dose (after last modification) on [facility] 08/22/25 at 0900, Until Discontinued, Routine, Recovery(Phase II-Outpatient)/On Unit(Inpatient) Given 08/30/2025 8:20 AM EDT 300 mg Given 08/29/2025 8:00 PM EDT 300 mg Given 08/29/2025 4:16 PM EDT 300 mg heparin (porcine) 10,000 Units in sodium chloride 0.9 % 1,010 mL OR irrigation Continuous PRN, Starting on Tue08/19/25 at 1142, Until Tue08/19/25 at 1811, Routine New Bag 08/19/2025 11:42 AM EDT heparin (porcine) injection 5,000 Units 5,000 Units, Subcutaneous, Every 8 hours scheduled, First dose on Tue08/20/25 at 1100, Until Discontinued, Routine Given 08/30/2025 1:26 PM EDT 5,000 Units Left Lower Abdomen Given 08/30/2025 5:15 AM EDT 5,000 Units L eft Upper Arm (Back) Given 08/29/2025 9:55 PM EDT 5,000 Units L eft Lower Abdomen lactobacillus acidophilus (Floranex) tablet 1 tablet 1 [...] Given 08/28/2025 4:52 AM EDT 50 mcg lidocaine (Xylocaine) 2 % injection As needed, Starting on Tue08/19/25 at 1204, Until Tue08/19/25 at 1811, Routine, Intraprocedure Given 08/19/2025 12:04 PM EDT 40 mL lidocaine-EPINEPHrine (Xylocaine W/EPI) 1 %-1:683796 injection As needed, Starting on Tue08/19/25 at 1203, Until Tue08/19/25 at 1811, Routine, Intraprocedure Given 08/19/2025 12:03 PM EDT 10 mL magnesium hydroxide (Milk of Magnesia) 400 MG/5ML suspension 30 mL 30 mL, Oral, Daily PRN, Starting on Tue08/25/25 at 1438, Until Tue08/30/25 at 1753, Routine, constipation Given 08/25/2025 3:52 PM EDT 30 mL melatonin tablet 6 mg 6 mg, Nasogastric, [...] Given 08/29/2025 9:19 AM EDT 12.5 mg ondansetron (Zofran) 4 MG/5ML solution 4 mg [...] Given 08/29/2025 9:19 AM EDT 8.6 mg sodium chloride 3 % nebulizer solution 3 [...] Auto Held - Provider: Automatic Transfer Provider)192 (MAR Unhold - Provider: Automatic Transfer Provider)2048 [...] procedure)192 ([facility] Unhold - Provider: Automatic Transfer Provider) [...] Transfer Provider) 0919 (Given - Provider: Kris Aber, RN) 0820 (Given - Provider: Kris Douglas RN) bacitracin (425g jar) ointment 1 Jar (CANCELED) 1 Jar, Topical, Daily, First dose on 08/19/25 at 1900, Until Discontinued, Routine 0900 (Given - Provider: Marily Owens RN)1550 (MAR Hold - Provider: Automatic Transfer Provider - Reason: Patient in procedure)192 ([facility] Unhold - Provider: Automatic Transfer Provider) 0924 [...] Auto Held - Provider: Automatic Transfer Provider)192 ([facility] Unhold - Provider: Automatic Transfer Provider)204 (Given [...] 0858 (Given - Provider: Marily Owens RN)1550 ([facility] Hold - Provider: Automatic Transfer Provider - Reason: Patient in procedure)1923 ([facility] Unhold - Provider: Automatic Transfer Provider)2048 (Given - Provider: Carly Perez) 0919 (Given - Provider: Kris Douglas, RENATO)2000 (Given - Provider: Carly Perez) 0820 (Given - Provider: Kris Douglas RN) levothyroxine (Synthroid, Levoxyl) tablet 50 mcg 50 mcg, Nasogastric, Every morning, First dose (after last modification) on Tue08/20/25 at 0600, Until Discontinued, Routine, Recovery(Phase II-Outpatient)/On Unit(Inpatient) 0452 (Given - Provider: James Juan, RENATO)1550 ([facility] Hold - Provider: Automatic Transfer Provider - Reason: Patient in procedure)1923 ([facility] Unhold - Provider: Automatic Transfer Provider) 0505 (Given - Provider: Carly Perez) 0515 (Given - Provider: Carly Perez) lidocaine-EPINEPHrine (Xylocaine W/EPI) 1 %-1:894960 injection 10 mL (COMPLETED) 10 mL, Infiltration, Once, 1 dose, On Tue08/29/25 at 0645, Routine 1126 (Given - Provider: Kris Douglas RN) melatonin tablet 6 mg 6 mg, Nasogastric, Nightly, First dose on Tue08/24/25 at 2100, Until Discontinued, Routine 1550 ([facility] Hold - Provider: Automatic Transfer Provider - Reason: Patient in procedure)1922 ([facility] Unhold - Provider: Automatic Transfer Provider)2047 (Given - Provider: Carly Perez) 1999 (Given - Provider: Carly Perez) metoprolol tartrate (Lopressor) split tablet 12.5 mg 12.5 mg, Nasogastric, 2 times daily, First dose on Tue08/20/25 at 1415, Until Discontinued, Routine 0859 (Given - Provider: Marily Owens RN)1550 ([facility] Hold - Provider: Automatic Transfer Provider - Reason: Patient in procedure)1922 ([facility] Unhold - Provider: Automatic Transfer Provider)2047 [...] 0858 (Given - Provider: Marily Owens RN)1550 ([facility] Hold - Provider: Automatic Transfer Provider - Reason: Patient in procedure)1922 ([facility] Unhold - Provider: Automatic Transfer Provider)2047 (Given - Provider: Carly Perez) 0921 (Not Given - Provider: Kris Douglas RN - Reason: Patient/family refused)1999 (Given - Provider: Carly Perez) 0948 (Given - Provider: Kris Douglas RN) senna (Senokot) tablet 8.6 mg 8.6 mg, Nasogastric, 2 times daily, First dose on Tue08/23/25 at 0900, Until Discontinued, Routine 0858 (Given - Provider: Marily Owens RN)1550 ([facility] Hold - Provider: Automatic Transfer Provider - Reason: Patient in procedure)1922 ([facility] Unhold - Provider: Automatic Transfer Provider)2047 (Given - Provider: Carly Perez) 09 (Given - Provider: Kris Douglas, RENATO)1999 (Given - Provider: Carly Perez) 0949 (Given - Provider: Kris Douglas RN) sodium chloride 3 % nebulizer solution 3 mL 3 mL, Nebulization, 2 times daily, First dose (after last modification) on Tue08/26/25 at 0900, Until Discontinued, Routine 0850 (Given - Provider: Devante Black)1550 ([facility] Hold - Provider: Automatic Transfer Provider - Reason: Patient in procedure)1922 ([facility] Unhold - Provider: Automatic Transfer Provider)2027 (Given - Provider: Dex Perez) 075 (Given - Provider: Gigi Killian)2144 (Given - Provider: Marvel Mcrae) 08 (Given - Provider: Kaleigh Peterson) PRN Medication Order 08/28/2025 08/29/2025 08/30/2025 bisacodyl (Dulcolax) suppository 10 mg 10 mg, Rectal, Once as needed, 1 dose, Starting on Tue08/27/25 at 0820, Until Tue08/30/25 at 1753, Routine, constipation 1550 ([facility] Hold - Provider: Automatic Transfer Provider - Reason: Patient in procedure)1922 ([facility] Unhold - Provider: Automatic Transfer Provider) bupivacaine-EPINEPHrine PF (Marcaine w/EPI) 0.25% -1: injection (CANCELED) As needed, Starting on Tue08/28/25 [...] Sergio Melo, RENATO)175 (Given - Provider: Sergio Melo, RENATO) magnesium hydroxide (Milk of Magnesia) 400 MG/5ML suspension 30 mL 30 mL, Oral, Daily PRN, Starting on 08/25/25 at 1438, Until Tue08/30/25 at 1753, Routine, constipation 1550 ([facility] Hold - Provider: Automatic Transfer Provider - Reason: Patient in procedure)1922 ([facility] Unhold - Provider: Automatic Transfer Provider) ondansetron (Zofran) 4 MG/5ML solution 4 mg(Linked Group 2) 4 mg, Nasogastric, Every 6 hours PRN, Starting on 08/25/25 at 0637, Until Tue08/30/25 at 1753, Routine, Recovery(Phase II-Outpatient)/On Unit(Inpatient), nausea, vomiting 1550 ([facility] Hold - Provider: Automatic Transfer Provider - Reason: Patient in procedure)1922 ([facility] Unhold - Provider: Automatic Transfer Provider) ondansetron (Zofran) injection 4 mg(Linked Group 2) 4 mg, Intravenous, Every 6 hours PRN, Starting on 08/25/25 at 0637, Until Tue08/30/25 at 1753, Routine, Recovery(Phase II-Outpatient)/On Unit(Inpatient), vomiting, nausea 1550 ([facility] Hold - Provider: Automatic Transfer Provider - Reason: Patient in procedure)1922 ([facility] Unhold - Provider: Automatic Transfer Provider) oxyCODONE (Roxicodone) immediate release tablet 10 mg(Linked Group 3) 10 mg, Nasogastric, Every 4 hours PRN, Starting on 08/25/25 at 0638, Until Tue08/30/25 at 1753, Routine, severe pain 0452 (Given - Provider: James Juan RN)1550 ([facility] Hold - Provider: Automatic Transfer Provider - Reason: Patient in procedure)192 ([facility] Unhold - Provider: Automatic Transfer Provider)2048 [...] Perez) 0252 (See Alternative - Provider: Carly Eprez)0820 (See Alternative - Provider: Kris Douglas RN)1325 [...] documented as of this encounter Care Teams [employer] Mechan[employer] Relationship Specialty Start Date End Date Christina Arteaga APRN [address] [place] [id number] PCP - General 06/20/[address] [facility] Patsy Cano [address] [place] [id number] Referring Physician 06/24/25 documented as of this encounter
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
--- OUTSIDE RECORDS SUMMARY | 2025-08-28 13:30 | XMS_ITS | Encounter Summary ---
Author Organization [facility] Address [address] 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] Procedures RI BONE-SKIN GRAFT, MICROVASCULAR RI RECMPL WND HEAD,FAC,HAND 2.6-7.5 CM RI REPR,FACE,GENITAL,HAND,FT+5 CMCM/< RI LAYR CLOS WND REST BODY 12.6-20 CM RI RECONSTR MANDIBLE,BONE PLATE RI REMV MALIG JAW BONE RADICAL RI REMOVAL NODES, NECK,CERV CMPLT RI PART REMOVAL TONGUE,<1/2 RI BONE-SKIN GRAFT, MICROVASCULAR RI RECONSTR MANDIBLE,BONE PLATE RI RECMPL WND HEAD,FAC,HAND 2.6-7.5 CM RI REPR,FACE,GENITAL,HAND,FT+5 CMCM/< RI LAYR CLOS WND REST BODY 12.6-20 CM RI TRACHEOSTOMY, PLANNED Left mandibular reconstruction with right [...] DISSECTION, NECK, RADICAL GLOSSECTOMY Marvin Santana MD [address] [address] Phone: tel: fax: [facility] [address] [place] [address] Phone: tel: Referral ID Status Reason Start Date Expiration Date Visits Re quested Visits Authorized [id number] 1 1 Encounter Details Date Type Department Care Team (Late st Contact Info) Description 08/28/2025 2:30 PM EDT - 08/28/2025 3:45 PM EDT Surgery [facility] [address] [place] [id number] Marvin Santana MD [address] [place] [address] Split thickness skin graft to right lower extremity flap donor site [34383 (CPT ) +1 more] Surgery Details Date/Time Status Location OR Service Patient Class Case Class Case Type Trauma Case? 08/28/2025 2:30 PM Posted [facility] 2[facility] 06 Plastic Surgery Inpatient E-Electi ve Panel 1 Procedure LRB Anes Op Region Wound Class Comments Split thickness skin graft to right lower extremity flap donor site Right General Leg Lower Class I/ Clean [place] inpatient. Waitlist 08/28. Time: 30 minutes Surgeon [...] No 08/21/2025 Housing Stability Vital Sign Answer Elvni e Recorded In the last 12 months, was t here a time when you were not able to pay the mortgage or rent on time? No 08/21/2025 In the past 12 months, how m any times have you moved where you were living? 0 08/21/2025 At any time in the past 12 m [facility], were you homeless or living in a retirement (including now)? No 08/21/2025 [facility] Utilities Answer Date Recorded In the [...] Melendrez, FABIOS - 08/29/2025 6:50 AM EDT [facility] Oral & Maxillofacial Surgery Cancer Surgery [...] on 09/06/[address] Adrian. Address/Phone Number: [facility] [address] [facility] [place] [address] Thank you for the opportunity [...] Note Carlito Perez 54 y.o. male CSN: [id number] Admission: 08/19/2025 5:29 AM Primary Problem: Floor of mouth squamous cell carcinoma Primary Armored Transport Service Manager: Primary Caregiver: Self Assistance Available at Discharge: Availability of Care Givers (#Hours): 24 hours Family/Armored Transport Service Manager(s) Willingness Assessed to care for patient at home: Yes Family/Armored Transport Service Manager(s) Readiness Assessed to care for patient at home: Yes Housing Circumstances-Z Codes: Housing Circumstances (select all that apply): None Applicable Patient Referred to Financial or Community Resources: Discharge Facility/Level of Care Needs: Discharge Facility/Level of Care Needs: 6-Mpgu-Buxmgi Care [facility] Patient's Choice of Community Agency(s): Patient/Family Anticipated Services at Transition: Patient/Family Anticipated Services at Transition: [employer] DME/Equipment Needed after Discharge: Equipment Currently Used at Home: none Equipment Needed After Discharge: colostomy/ostomy supplies, walker, rolling, other (see comments) (wound vac) Readmission Within the Last 30 Days: Readmission Within the Last 30 Days: no previous admission in last 30 days Medicare Documentation: Follow-up: Alvaro Adrian DMD, MD [address] [facility] [address] [facility] [address] Wound wnl-Xiyubyyfu-Txhu Follow up [facility] Address: [address] [place] [address] Follow up [facility]. [facility] Follow up [facility] Address: [address] [place], [address] Follow up Rolling walker, please keep equipment [...] Medically readyto discharge today. Accepted by above [facility]. They will call patient to arrange a home visit. Acceptedby above infusion pharmacy. They will deliver bedside and bedside nurse will provide a teaching session with patient/family. Patient agrees to dc home today and agrees with above DC plan. In??s MARIANELA Kelly, visual merchandising manager * Discharge Summary - Rusty Melendrez, DDS - 08/30/2025 12:45 PM EDT Images from the original note were not included. Hospitalization Admit Date/Time: 08/19/2025 5:29 AM Admitting Attending: Marvin Santana Discharge Date: 08/30/25 Discharge Attending Physician: Alvaro Adrian DMD PCP name and Address: Christina Arteaga, HOME CARE PROVIDER [address] [facility] [address] Referring provider name and address: Alvaro Adrian DMD, MD [address] [address] Chief Concern, Brief History of Present Illness, [...] clinic with Dr. Adrian on 09/06/[address] [facility] for follow-up. Surgeries and [...] medications were sent to [facility] [place], [place] - [address] [facility] [address] acetaminophen 500 MG tablet aspirin 325 MG [...] cell carcinoma Squamous cell carcinoma of mandible [facility] Oral & Maxillofacial Surgery Cancer Surgery [...] on 09/06/[address] Adrian. Address/Phone Number: [facility] [address] [facility] [place] [address] Thank you for the opportunity to allow us to participate in your care. Please do not hesitate to contact our office if you have any questions or concerns. Outpatient Follow-Up Future Appointments Date Time Provider Department Center 09/03/2025 8:15 AM [facility] 09/06/2025 1:00 PM Alvaro Adrian DMD, MD [facility] Pertinent Physical Exam At Time of [...] preparation for this discharge. Rusty Melendrez DDS [facility] OMFS, PGY-1 Cosigned by Alvaro [...] Note Carlito Perez 54 y.o. male CSN: [id number] Admission: 08/19/2025 5:29 AM Primary Problem: Floor [...] Note Carlito Perez 54 y.o. male CSN: [id number] Room/Bed 128/128A Nutrition evaluation type: follow-up Reason [...] WNL) O2 Delivery Method: Humidified trach collar [place] Coma Scale Score: 15 Dex Scale Score: [...] for accuracy Estimated Needs: Kcal: 30-35 kcal/kg (7660-3667 kcal/d) Protein: 1.5-1.8 g/kg (131-157 g/d) Based [...] penicillan CAD (coronary artery disease) Cancer (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 HLD (hyperlipidemia) HTN (hypertension) Hypothyroidism Reflux gastritis Substance abuse 1988 [2] Past Surgical History: Procedure Laterality Date APPENDECTOMY 1979 CARDIOTHORACIC PROCEDURE stents CAROTID STENT 04/26/2023 COLONOSCOPY 2023 CORONARY STENT PLACEMENT [id number] ORTHOPEDIC SURGERY repair to clavical OTHER SURGICAL [...] Care Family/Caregiver Present: Yes Family/Caregiver: (Adult Sister) Regional Planner: Not Applicable Presentation Oxygen Therapy: Supplemental oxygen [...] Mobility Bed Mobility Exam: Scooting/Bridging Level of [place]: Stand-by assist (anteriorly to EOB) Physical/Nonphysical Assist: Set-up required, Supervision, Verbal Cues Bed Mobility Exam: Supine to Sit Level of [place]: Stand-by assist (to the left) Physical/Nonphysical Assist: Set-up required, Supervision, Verbal Cues, Minimal cues, HOB elevated Transfers Transfer Exam: Sit to stand Level of [place]: Stand-by assist Physical/Nonphysical Assist: Set-up required, Supervision, Verbal Cues, Minimal cues Assistive Device: Walker, rolling Transfer Exam: Stand to Sit Level of [place]: Stand-by assist Physical/Nonphysical Assist: Supervision, Verbal Cues, [...] handout/printout provided for visual reference. Access Code: [email or web address] URL: [email or web address] Date: 08/29/2025 Exercises - Seated Elbow Flexion [...] Equipment for Bathing & Showering Standardized Assessments [facility] 6-Click Daily Activities Help from Other: Don/Doff Regular Lower Body Clothings: A lot Help From Other: Bathing: Little Help From Other: Toileting: None Help From Other: Don/Doff Upper Body Clothings: None Help From Other: Grooming: None Help From Other: Eating Meals: Little (DHT) [facility] 6 Click - Daily Activities Score: 20/24 [facility] Scoring Interpretation: Scores greater than 20.5 suggest [...] admission Level of Mobility Ambulatory- community Mobility [place] Independent gait without device History of Falls [...] unaware when pt may be discharged from [facility]. Regional Planner (if applicable) Not Applicable OBJECTIVE & INTERVENTIONS [...] Treatment Minutes 20 BED MOBILITY Level of [place] Physical/Non- physical Assist Adaptive Equipment Utilized Rolling/ Turning Scooting/ Bridging Stand-by assist Set-up required, Supervision, Verbal Cues Supine to Sit Stand-by assist Set-up required, Supervision, Verbal Cues, Minimal cues, HOB elevated Sit to Supine Interventions TRANSFERS Level of [place] Physical/Non- physical Assist Adaptive Equipment Utilized Sit to Stand Stand-by assist Set-up required, Supervision, Verbal Cues, Minimal cues Walker, rolling Stand to sit Stand-by assist Supervision, Verbal Cues, Minimal cues Walker, rolling Bed to Chair Toilet Transfer Shower Transfer Interventions AMBULATION Level of [place] Distance Adaptive Equipment Utilized Ambulation Standby assist, Minimal verbal cues 130' x 2 with seated rest break between each distance Rolling walker Comments Cues for safety awareness. CORROSION TECHNICIAN presence was necessary for: * managing lines [...] clinic with Dr. Adrian on 09/06/[address] [facility] for follow-up. * Progress Notes - Rusty Melendrez DDS - 08/29/2025 5:37 AM EDT Images from the original note were not included. Oral & Maxillofacial Surgery Progress Note 08/29/25 Carlito Perez [facility] Day: 11 Subjective HISTORY OF PRESENT [...] Units Date/Time Cecelia auris Surveillance by PCR [[id number]] (Normal) Collected: 10/06/25 2019 Order Status: Completed Specimen: Swab from Axilla and Groin Updated: 08/21/25 1033 Cecelia auris PCR Result Not Detected Narrative: This PCR assay was developed and its performance characteristics determined by [facility] as appropriate for clinical purposes. This assay has not been cleared or approved bythe FDA, but is performed in a CLIA regulated laboratory that is qualified to perform high-complexity testing. Multi Drug Resistance Test [[id number]] Collected: 08/19/252018 Order Status: Completed Specimen: Swab from Nares and Nini Rectal Updated: 08/21/25 0733 Culture No growth at day 1 Narrative: This test was developed and its performance characteristics determined by the [facility]. Although the media is FDA-approved, it is not FDA-approved for all specimen types submitted. The FDA has determined that such clearance or approval is not necessary. This test is used for surveillance purposes. It should not be regarded as investigational or for research. The [facility] is certified [...] with patient at bedside Rusty Melendrez DDS [facility] OMFS, PGY-1 Cosigned by Alvaro [...] maintained clutter-free environment maintained mobility aid in [place] [facility] nonskid shoes/slippers when out of [...] Renteria MD - 08/28/2025 9:37 PM EDT [facility] Department of Surgery Division of [...] nursing staff. I have notified senior resident/attending manager instrumentation with any issues or concerns. * Anesthesia PACU Signout - Edwin Paolmares DO - 08/28/2025 8:06 PM EDT Patient: [...] PM EDT Operative Note Date: 08/28/25 Location: [facility] Name: Saravanan Perez, : 1970, Diagnoses: [...] Attending Surgeon(s): * Marvin Santana - Primary Felting Machine Operator Helper(s): * Roma Rolon MD - Resident [...] Progress Note 08/28/2025 Carlito Perez [facility] Day: 11 Subjective HISTORY OF PRESENT [...] Units Date/Time Cecelia auris Surveillance by PCR [[id number]] (Normal) Collected: 08/19/252018 Order Status: Completed Specimen: Swab from Axilla and Groin Updated: 08/21/25 1033 Cecelia auris PCR Result Not Detected Narrative: This PCR assay was developed and its performance characteristics determined by [facility] as appropriate for clinical purposes. This assay has not been cleared or approved bythe FDA, but is performed in a CLIA regulated laboratory that is qualified to perform high-complexity testing. Multi Drug Resistance Test [[id number]] Collected: 08/19/252018 Order Status: Completed Specimen: Swab from Nares and Nini Rectal Updated: 08/21/25 0733 Culture No growth at day 1 Narrative: This test was developed and its performance characteristics determined by the [facility]. Although the media is FDA-approved, it is not FDA-approved for all specimen types submitted. The FDA has determined that such clearance or approval is not necessary. This test is used for surveillance purposes. It should not be regarded as investigational or for research. The [facility] is certified [...] DMD [facility] litigation coordinator PGY-1 Pager #: [phone] Cosigned by Alvaro Adrian DMD, MD at [...] supporting documentation sent to Jeff via email: [email or web address]. * Care Plan - Don Dolan RN [...] Note Carlito Perez 54 y.o. male CSN: [id number] Admission: 08/19/2025 5:29 AM Primary Problem: Floor [...] readiness for discharge on 08/30/25 In??MARIANELA Bass, visual merchandising manager * Procedures - Senia Cross PA [...] from the original note were not included. [address]505 Suctioning Your Tracheostomy Important Call 911 right [...] tube. Move the catheter tip in a [place] as you pull the catheter out. ? [...] thoroughly. Last Reviewed Date: 2025 00:00:00 ?? 5929-9534 The [employer]. All rights reserved. This information is not intended as a substitute for professional medical care. Always follow your healthcare professional's instructions. * Rachell Lopez - Bob Masterson RN - 08/26/2025 10:29 AM EDT Images from the original note were not included. [address]341 Preventing a Surgical Site Infection A risk [...] of infection. ? Controlled body temperature. A dsihe-cssg-zggbzs temperature during or after surgery prevents oxygen [...] and water or with an alcohol-based hand twisting operator before and after caring for you. Don?t [...] away. Last Reviewed Date: 2024 00:00:00 ?? 0530-9865 The [employer]. All rights reserved. This information is not intended as a substitute for professional medical care. Always follow your healthcare professional's instructions. * Rachell KhannaRUPALI - Bob Masterson RN - 08/26/2025 10:29 AM EDT Images from the original note were not included. 04776 Tracheostomy Care You need to take care [...] breathing Last Reviewed Date: 2025 00:00:00 ?? 1236-7517 The [employer]. All rights reserved. This information is not intended as a substitute for professional medical care. Always follow your healthcare professional's instructions. * [facility] - Bob Masterson RN - 08/26/2025 10:29 [...] from the original note were not included. 35607 Negative Pressure Wound Therapy Negative pressure wound [...] device. Last Reviewed Date: 2024 00:00:00 ?? 2166-2471 The [employer]. All rights reserved. This information is not [...] Neck and shoulder stiffness or pain ? intermodal owner operator truck driver swelling (lymphedema) which can be reduced through [...] call the doctor? Call the clinic at [phone] if you have any of these: ? [...] lips Call 911 or go to the [facility] emergency department if you have any of [...] does not seem to beworking properly. 1. Overlock Sewing Machine Operator the tube near the skin and hold [...] Amount 06/22/09 7 a.m. 20ml * Lynetteed [facility] - Bob Masterson RN - 08/26/2025 10:29 AM EDT Images from the original note were not included. [address]5575 Surgery for a Mouth or Throat Tumor [...] look Last Reviewed Date: 2024 00:00:00 ?? 3510-3367 The [employer]. All rights reserved. This information is not intended as a substitute for professional medical care. Always follow your healthcare professional's instructions. * Rachell KhannaRUPALI - Bob Masterosn RN - 08/26/2025 10:29 AM EDT Images [...] with a towel and dry with a music department chair on low setting to avoid burning. [...] be taking nutrition by feeding tube, the rn field case manager in the hospital will give [...] call the doctor? Call the clinic at [phone] if you have any of these: ? [...] will change at bedside on 08/26 - [id number] mg for 1 month - Recommend 5 [...] Maxillofacial Surgery Progress Note 08/25/[address] [facility] Day: 7 Subjective HISTORY OF PRESENT [...] Units Date/Time Cecelia auris Surveillance by PCR [[id number]] (Normal) Collected: 08/19/252018 Order Status: Completed Specimen: Swab from Axilla and Groin Updated: 08/21/25 1033 Cecelia auris PCR Result Not Detected Narrative: This PCR assay was developed and its performance characteristics determined by [facility] as appropriate for clinical purposes. This assay has not been cleared or approved bythe FDA, but is performed in a CLIA regulated laboratory that is qualified to perform high-complexity testing. Multi Drug Resistance Test [[id number]] Collected: 08/19/252018 Order Status: Completed Specimen: Swab from Nares and Nini Rectal Updated: 08/21/25 0733 Culture No growth at day 1 Narrative: This test was developed and its performance characteristics determined by the [facility]. Although the media is FDA-approved, it is not FDA-approved for all specimen types submitted. The FDA has determined that such clearance or approval is not necessary. This test is used for surveillance purposes. It should not be regarded as investigational or for research. The [facility] is certified [...] DMD [facility] litigation coordinator PGY-1 Pager #: [phone] Cosigned by Alvaro Adrian DMD, MD at [...] will change at bedside on 08/26 - [id number] mg for 1 month - Recommend 5 [...] MD Plastic & Reconstructive Surgery PGY-4 Pager [phone] Cosigned by Marvin Santana MD at 08/26/2025 [...] provided Taken 08/24/2025 1303 by Kathy Lund communications tower climber Interventions: medication (see MAR) Taken 08/23/20252134 by [...] Note Carlito Perez 54 y.o. male CSN: [id number] Admission: 08/19/2025 5:29 AM Primary Problem: Floor of mouth squamous cell carcinoma Anticipated Discharge Date: 08/26/25 Referral for trach supplies and a RW placed in careport and [facility]. Trach supply order will be reviewed [...] Units Date/Time Cecelia auris Surveillance by PCR [[id number]] (Normal) Collected: 08/19/252018 Order Status: Completed Specimen: Swab from Axilla and Groin Updated: 08/21/25 1033 Cecelia auris PCR Result Not Detected Narrative: This PCR assay was developed and its performance characteristics determined by [facility] as appropriate for clinical purposes. This assay has not been cleared or approved bythe FDA, but is performed in a CLIA regulated laboratory that is qualified to perform high-complexity testing. Multi Drug Resistance Test [[id number]] Collected: 08/19/252018 Order Status: Completed Specimen: Swab from Nares and Nini Rectal Updated: 08/21/25 0733 Culture No growth at day 1 Narrative: This test was developed and its performance characteristics determined by the [facility]. Although the media is FDA-approved, it is not FDA-approved for all specimen types submitted. The FDA has determined that such clearance or approval is not necessary. This test is used for surveillance purposes. It should not be regarded as investigational or for research. The [facility] is certified [...] DMD [facility] litigation coordinator PGY-1 Pager #: [phone] Cosigned by Alvaro Adrian DMD, MD at [...] will change at bedside on 08/26 - [id number] mg for 1 month - Recommend 5 [...] Position: weight shifting Taken 08/23/20252134 by Robert Wlison Skin Protection: transparent dressing maintained pulse oximeter [...] Note Carlito Perez 54 y.o. male CSN: [id number] Room/Bed 128/128A Nutrition evaluation type: follow-up Reason [...] Risk Score: 41 Most Recent BM Date: (CORROSION TECHNICIAN) Skin: wound vac, right pretibial surgical wound, [...] 4 months Estimated Needs: Kcal: 30-35 kcal/kg (7182-0767 kcal/d) Protein: 1.5-1.8 g/kg (131-157 g/d) Based [...] penicillan CAD (coronary artery disease) Cancer (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 HLD (hyperlipidemia) HTN (hypertension) Hypothyroidism Reflux gastritis Substance abuse 1988 [2] Past Surgical History: Procedure Laterality Date APPENDECTOMY 1979 CARDIOTHORACIC PROCEDURE stents CAROTID STENT 04/26/2023 COLONOSCOPY 2023 CORONARY STENT PLACEMENT [id number] ORTHOPEDIC SURGERY repair to clavical OTHER SURGICAL [...] PM EDT Referral for enterals-TF sent to [facility] via [facility], pending final recs from RD. * [...] will change at bedside on 08/26 - [id number] mg for 1 month - Recommend 5 [...] MD Plastic & Reconstructive Surgery PGY-4 Pager [phone] Cosigned by Marvin Santana MD at 08/24/2025 [...] Progress Note 08/23/25 Carlito Perez [facility] Day: 5 Subjective HISTORY OF PRESENT [...] Units Date/Time Cecelia auris Surveillance by PCR [[id number]] (Normal) Collected: 08/19/252018 Order Status: Completed Specimen: Swab from Axilla and Groin Updated: 08/21/25 1033 Cecelia auris PCR Result Not Detected Narrative: This PCR assay was developed and its performance characteristics determined by [facility] as appropriate for clinical purposes. This assay has not been cleared or approved bythe FDA, but is performed in a CLIA regulated laboratory that is qualified to perform high-complexity testing. Multi Drug Resistance Test [[id number]] Collected: 08/19/252018 Order Status: Completed Specimen: Swab from Nares and Nini Rectal Updated: 08/21/25 0733 Culture No growth at day 1 Narrative: This test was developed and its performance characteristics determined by the [facility] Clinical Microbiology Laboratory. Although the media is FDA-approved, it is not FDA-approved for all specimen types submitted. The FDA has determined that such clearance or approval is not necessary. This test is used for surveillance purposes. It should not be regarded as investigational or for research. The [facility] Laboratory is certified [...] with patient at bedside Rusty Melendrez DDS [facility] OMFS, PGY-1 Cosigned by Alvaro [...] Progress Note Carlito Perez 54 y.o. male [facility]: [id number] Admission: 08/19/2025 5:29 AM Primary Problem: Floor of mouth squamous cell carcinoma Anticipated Discharge Date: 08/27/25 Has Discharge Plans Changed? Medicare Second Notice: Housing Circumstances: Housing Circumstances Action Taken: Medically Ready for Discharge: Additional Comments Referral for PT/OT+SN sent to agencies via [employer]. UPDATE: [facility] [phone] has accepted pt. POC reviewed with primary team. Refer to primary team's note for details. Pt is not medically readyfor discharge. MD anticipates readiness for discharge more than 72 hrs. In??MARIANELA Bass, visual merchandising manager * Progress Notes - Nicole Rodriguez [...] anesthesia, CAD (coronary artery disease), Cancer (CMS/HCC) ([id number]), Coronary artery calcification, Dental disease, Fractures (clavical surgery), GERD (gastroesophageal reflux disease), Hard to intubate, HLD (hyperlipidemia), HTN (hypertension), Hypothyroidism, Reflux gastritis, and Substance abuse (1988). Past Surgical History Patient has a past surgical history that includes Appendectomy (1979); Colonoscopy (2023); Coronarystent placement ([id number]); Other surgical history; Cardiothoracic procedure; orthopedic surgery; Throat surgery; and Carotid stent (04/26/2023). Precautions Right Lower Extremity Weight Bearing Status: Weight Bearing as Tolerated (with CAM boot for ambulation; on AAT - okay to remove for skin inspection, hygiene, and dressing changes per medical TEAM) Medical Precautions: Fall precautions Mobility Orders (Order ID: [id number]) Priority: Routine Interval: Until discontinued Comments: MUST [...] Care Family/Caregiver Present: Yes Family/Caregiver: (Adult Sister) Regional Planner: Not Applicable Presentation Oxygen Therapy: Supplemental oxygen [...] admission Level of Mobility: Ambulatory- community Mobility [place]: Independent gait without device History of Falls: [...] Mobility Bed Mobility Exam: Scooting/Bridging Level of [place]: Stand-by assist (anteriorly to EOB) Physical/Nonphysical Assist: Set-up required, Supervision, Verbal Cues, Minimal cues, 1 person + 1 person to manage equipment Bed Mobility Exam: Supine to Sit Level of [place]: Contact guard (to the left) Physical/Nonphysical Assist: Set-up required, Verbal Cues, Nonverbal cues (demo/gestures), Minimal cues, HOB elevated, 1 person + 1 person to manage equipment Assistive Device: Bed rails Transfers Transfer Exam: Sit to stand Level of [place]: Contact guard Physical/Nonphysical Assist: Set-up required, Verbal Cues, Nonverbal cues (demo/gestures), Minimal cues, 1 person + 1 person to manage equipment Assistive Device: Walker, rolling Transfer Exam: Stand to Sit Level of [place]: Contact guard Physical/Nonphysical Assist: Verbal Cues, Nonverbal [...] inpatient within personal toileting routines. Standardized Assessments [facility] 6-Click Daily Activities Help from Other: Don/Doff Regular Lower Body Clothings: A lot Help From Other: Bathing: Little Help From Other: Toileting: Little Help From Other: Don/Doff Upper Body Clothings: Little Help From Other: Grooming: None Help From Other: Eating Meals: Little (DHT) [facility] 6 Click - Daily Activities Score: Assessment [...] of anesthesia, CAD (coronary artery disease), Cancer ([facility]) ([id number]), Coronary artery calcification, Dental disease, Fractures (clavical surgery), GERD (gastroesophageal reflux disease), Hard to intubate, HLD (hyperlipidemia), HTN (hypertension), Hypothyroidism, Reflux gastritis, and Substance abuse (1988). Past Surgical History Patient has a past surgical history that includes Appendectomy (1979); Colonoscopy (2023); Coronarystent placement ([id number]); Other surgical history; Cardiothoracic procedure; orthopedic surgery; [...] Care Family/Caregiver Present: Yes Family/Caregiver: (Adult Sister) Regional Planner: Not Applicable Presentation Oxygen Therapy: Supplemental oxygen [...] admission Level of Mobility: Ambulatory- community Mobility [place]: Independent gait without device History of Falls: [...] Mobility Bed Mobility Exam: Scooting/Bridging Level of [place]: Stand-by assist (anteriorly to EOB) Physical/Nonphysical Assist: Set-up required, Supervision, Verbal Cues, Minimal cues, 1 person + 1 person to manage equipment Bed Mobility Exam: Supine to Sit Level of [place]: Contact guard (to the left) Physical/Nonphysical Assist: Set-up required, Verbal Cues, Nonverbal cues (demo/gestures), Minimal cues, HOB elevated, 1 person + 1 person to manage equipment Transfers Transfer Exam: Sit to stand Level of [place]: Contact guard Physical/Nonphysical Assist: Set-up required, Verbal Cues, Nonverbal cues (demo/gestures), Minimal cues, 1 person + 1 person to manage equipment Assistive Device: Walker, rolling Transfer Exam: Stand to Sit Level of [place]: Contact guard Physical/Nonphysical Assist: Verbal Cues, Nonverbal [...] Level of Assistance: Contact guard Standardized Assessments [facility] 6-Clicks Mobility Assessment Difficulty patient has turning [...] 3-5 steps with a railing?: A little [facility] 6-Clicks Mobility Assessment Total : 21 No [...] will change at bedside on 08/26 - ueo605 mg for 1 month - Recommend 5 [...] MD Plastic & Reconstructive Surgery PGY-4 Pager [phone] Cosigned by Marvin Santana MD at 08/22/2025 [...] Maxillofacial Surgery Progress Note 08/22/[address] [facility] Day: 4 Subjective HISTORY OF PRESENT [...] Units Date/Time Cecelia auris Surveillance by PCR [[id number]] (Normal) Collected: 08/19/252018 Order Status: Completed Specimen: Swab from Axilla and Groin Updated: 08/21/25 1033 Cecelia auris PCR Result Not Detected Narrative: This PCR assay was developed and its performance characteristics determined by [facility] as appropriate for clinical purposes. This assay has not been cleared or approved bythe FDA, but is performed in a CLIA regulated laboratory that is qualified to perform high-complexity testing. Multi Drug Resistance Test [[id number]] Collected: 08/19/252018 Order Status: Completed Specimen: Swab from Nares and Nini Rectal Updated: 08/21/25 0733 Culture No growth at day 1 Narrative: This test was developed and its performance characteristics determined by the [facility]. Although the media is FDA-approved, it is not FDA-approved for all specimen types submitted. The FDA has determined that such clearance or approval is not necessary. This test is used for surveillance purposes. It should not be regarded as investigational or for research. The [facility] is certified [...] 08/26/2025 2:28 PM EDT Associated attestation - Alavro Adrian DMD, MD - 08/26/2025 2:28 PM [...] on file Utilities: Not At Risk (08/21/2025) [facility] Utilities Threatened with loss of utilities: [...] Progress Note 08/21/25 Carlito Perez [facility] Day: 3 Subjective HISTORY OF PRESENT [...] Value Units Date/Time Multi Drug Resistance Test [[id number]] Collected: 08/19/252018 Order Status: Sent Specimen: Swab from Nares and Nini Rectal Updated: 08/19/252029 Cecelia auris Surveillance by PCR [[id number]] Collected: 08/19/252018 Order Status: Sent Specimen: Swab [...] Trach care per OMFS #Tracheostomy - Contact manager instrumentation PGY-1 for acute trach concerns - 6-0 [...] DMD [facility] litigation coordinator PGY-1 Pager #: [phone] [1] acetaminophen, 1,000 mg, Nasogastric, q6h JOVANNI [...] from the original note were not included. REFRACTORY TILE HELPER Flap Check 08/21/2025 PROCEDURE: Right osteocutaneous [...] resident Galina Renteria DMD, MD Vascular Surgery Bilingual Research Interviewer Pager ID [phone] * Significant Event - Galina Renteria MD - 08/20/2025 8:01 PM EDT REFRACTORY TILE HELPER Flap Check 08/20/2025 PROCEDURE: Right osteocutaneous [...] resident Galina Renteria DMD, MD Vascular Surgery Bilingual Research Interviewer Pager ID [phone] * Care Plan - Lizy Amador - [...] Note Carlito Perez 54 y.o. male CSN: [id number] Admission: 08/19/2025 5:29 AM Primary Problem: Floor of mouth squamous cell carcinoma Crew Trainer reviewed chart and spoke with patient's spouse to complete this Initial Case Management Assessment. Patient intubated and CM unable to obtain SDOH information. PCP: Christina Arteaga APRN Emergency Contact: Extended Emergency Contact Information Primary Emergency Contact: Elicia Perez Address[address] [place] Relation: Spouse Insurance: Primary Visit Coverage Payer Plan Sponsor Code Group Number Group Name [facility] Primary Visit Coverage Subscriber Subscriber ID Subscriber Name Subscriber SSN Subscriber Address [id number] Carlito Perez [id number] [address] [place] [address] Patient information: Primary Caregiver: Self Accompanied by/Relationship: spouse Support System: Immediate family Daily Living Activities: Functional Status: Independent Living Arrangements: Spouse/Significant other Type of Residence: Private residence, Single Level [address] [place] [address] Current DME: Equipment Currently Used at Home: none Current DME Provider: has a cane and crutches at [facility] if needed. Income Information: Income Source: Employed Income/Expense Information: Income meets expenses Current Resources Utilized: None Housing Circumstances-Z Codes: Housing Circumstances (select all that apply): None Applicable Anticipated Discharge Date: 08/26 Patient's Discharge Goal: tbd Assistance Available at Discharge: 06/06 per family. His sister is an RN, son is a extractive metallurgist and he has a cousin who is an RN. Per spouse they are all able/willing to assist patient when dc home for hospital. Spouse also able to assist however she works many hours at her job. Discharge Transport: family Follow Up Transport: family Home Health / Home Infusion / Outpatient Dialysis Services: Current DME Provider: has a cane and crutches at [facility] if needed. Living Will/Advance Directive/Power of Hide Spreader /Guardian: has copies of LW and POA . CM suggested she present these to a steam plant records clerk who may be able to scan into his epic/my chart. Additional Comments: Crew Trainer provided introduction of CM and information on CM role. Confirmed demographics in EPICare accurate. requested communication go to [email or web address] Jackeline Rodriguez RN * Progress Notes - [...] Height: O2 Delivery Method: Humidified trach collar RI SUP: 10 cm H20 Insp Time (sec): 1.4 sec FiO2 (%): 28 % S RR: 14 RI SUP: 10 cm H20 I O Shift [...] 8:53 PM EDT Associated attestation - Marvin Snatana MD - 08/20/2025 8:53 PM EDT I [...] Surgery ICU Progress Note 08/20/25 Carlito Perez [facility] Day: 2 Subjective HISTORY OF PRESENT ILLNESS Carlito Perez is a 54 y.o. male with PMH of CAD (4 stents, 2022), HLD, hypothyroidism, who presents with a 3+ year history of left sided tongue/floor of mouth lesion now biopsy proven SCCa. Procedure(s): 1) Left segmental mandibulectomy, left selective neck dissection, extraction of all remaining teeth, partial left glossectomy, tracheostomy creation with [facility] on 08/19/2025 2) Fibula free flap reconstruction with Plastic surgery on 08/19/2025 24 hr interval events : Taken to OR for aforementioned procedures 08/19. This is ICU day 1. Trach remains in place with [facility] . NAEO. Pt seen and evaluated at bedside by [facility] surgery residents. NPO.Tolerating pain on PO meds [...] Value Units Date/Time Multi Drug Resistance Test [[id number]] Collected: 08/19/252018 Order Status: Sent Specimen: Swab from Nares and Nini Rectal Updated: 08/19/252029 Cecelia auris Surveillance by PCR [[id number]] Collected: 08/19/252018 Order Status: Sent Specimen: Swab [...] #Hypothyroidism - Restarted Levothyroxine Rusty Melendrez DDS [facility] OMFS, PGY-1 [1] acetaminophen, 650 [...] 5:32 AM EDT Free Flap Check Note [@7890] Carlito Perez is a 54 y.o. male [...] from the original note were not included. [facility] Department of Surgery Division of Plastic and Reconstructive Surgery Post-Operative Check Name: Carlito Perez Attending Provider: Marvin Santana MD Age/Sex: 54 y.o. male Unit: [place] [address] ICU Date & Time of Admission: 08/19/2025 5:29 AM [facility] Right osteocutaneous free fibula for [...] Note Carlito Perez 54 y.o. male CSN: [id number] Room/Bed OR/- Nutrition evaluation type: assessment Reason [...] (98.2 ??F) Oxygen Therapy: None (Room air) Lucie Coma Scale Score: 15 Dex Scale [...] 4 months Estimated Needs: Kcal: 30-35 kcal/kg (8454-0798 kcal/d) Protein: 1.5-1.8 g/kg (131-157 g/d) Based [...] penicillan CAD (coronary artery disease) Cancer (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 HLD (hyperlipidemia) HTN (hypertension) Hypothyroidism Reflux gastritis Substance abuse 1988 [2] Past Surgical History: Procedure Laterality Date APPENDECTOMY 1979 CARDIOTHORACIC PROCEDURE stents CAROTID STENT 04/26/2023 COLONOSCOPY 2023 CORONARY STENT PLACEMENT [id number] ORTHOPEDIC SURGERY repair to clavical OTHER SURGICAL [...] AM EDT Operative Note Date: 08/19/25 Location: [facility] Name: Saravanan Perez, : 1970, Diagnoses: Pre-op Diagnosis Floor of mouth squamous cell carcinoma Post-op Diagnosis Floor of mouth squamous cell carcinoma Procedure(s): Tracheotomy, partial glossectomy left anterior tongue, left segmental mandibulectomy, left selective neck dissection, extraction of #2,3,5,6,7,8,9,10,11,12,13,15,28,29,31, Direct Laryngoscopy with Biopsy Attending Surgeon(s): Panel 1: * Marvin Santana - Primary Panel 2: * Alvaro Adrian - Primary Felting Machine Operator Helper(s): Panel 1: * Roma Rolon MD [...] W/O ANGLE 2MM THCK - SNA - [id number] Used, Not Implanted NA Plate PLATE TI PSPC MATRIXMAND ANG RECON 7X23H/2MM LT - SNA - [id number] Implanted NA Screw SCREW 2.0MM MATRIXMANDIBLE ST 8MM - SNA - [id number] Used, Not Implanted NA Screw SCREW 2.0MM MATRIXMANDIBLE LOCK ST 8MM - SN/A - [id number] Implanted N/A SCREW 2.0MM MATRIXMANDIBLE LOCK ST 10MM - SN/A - [id number] Implanted N/A SCREW 2.0MM [address] LOCK ST 10MM - SN/A - [id number] Implanted N/A SCREW 2.0MM [address] LOCK [address] 14MM - SN/A - [id number] Implanted N/A Specimen: Specimens ID Source Frozen? [...] AM EDT Operative Note Date: 08/19/25 Location: [facility] Name: Saravanan Perez, : 1970, Diagnoses: [...] Panel 1: * Marvin Santana - Primary Felting Machine Operator Helper(s): Panel 1: * Roma Rolon MD [...] W/O ANGLE 2MM THCK - SNA - [id number] Used, Not Implanted NA Plate PLATE TI PSPC MATRIXMAND ANG RECON 7X23H/2MM LT - SNA - [id number] Implanted NA Screw SCREW 2.0MM MATRI[address] ST 8MM - SNA - [id number] Used, Not Implanted NA Screw SCREW 2.0MM MATRI[address]IBLE LOCK ST 8MM - SN/A - [id number] Implanted N/A SCREW 2.0MM [address]RI[address]ANDIBLE LOCK ST 10MM - SN/A - [id number] Implanted N/A SCREW 2.0MM [address] LOCK ST 10MM - SN/A - [id number] Implanted N/A SCREW 2.0MM [address]RIXM[address]IBLE LOCK ST 14MM - SN/A - [id number] Implanted N/A Specimen: Specimens ID Source Frozen? [...] for reconstruction Free fibula flap secured to paimiut mandible with a reconstruction plate Complex intraoral [...] we had good bony approximation to the paimiut mandible. Under direct visualization we are able to secure 4 holes across the osteotomy sites to the paimiut mandible with bicortical screws. In this fashion were able to reconstruct the right brandyn mandible with a reconstruction plate/implant. We also then were able to drape the pedicle appropriately down into the anastomosis site. Under loupe magnification, we then proceeded to reapproximate the artery end-to-end using 8-0 nylonwithout any issues. The veins were then coupled using a 3.5 mm hop strainer x2. The clamps were carefully removed demonstrating [...] 08/19/2025 8:53 AM EDT Date: 08/19/25 Location: [facility] Name: Saravanan Lepe Chris, : 1970, Diagnoses: Pre-op Diagnosis Floor of mouth squamous cell carcinoma Post-op Diagnosis Floor of mouth squamous cell carcinoma Procedure(s): Segmental mandibulectomy, left selective neck dissection, extraction of all remaining teeth, partial left glossectomy, tracheostomy, Direct Laryngoscopy with biopsy Attending Surgeon(s): Panel 1: * Marvin Santana R - Primary Panel 2: * Alvaro Adrian - Primary Felting Machine Operator Helper(s): Panel 1: * Roma Rolon MD - Resident - Assisting Panel 2: * Maxwell Goetz MD - Resident - Assisting * Dlalin Hargrove MD - Resident - Assisting Anesthesia: General ASA: III Blood Administration: Blood Product Administration History None Estimated Blood Loss: Minimal Drains: Urethral Catheter Temperature probe;Non-latex 16 Fr. (Active) Implants Type Name Action Serial No. Plate PLATE MANDIBLE CUSTOM W/O ANGLE 2MM THCK - SNA - [id number] Used, Not Implanted NA Plate PLATE TI PSPC MATRIXMAND ANG RECON 7X23H/2MM LT - SNA - [id number] Implanted NA Specimen: Specimens ID Source Frozen? [...] from the original note were not included. [facility] Department of Surgery Division of [...] reconstruction with Dr. Santana after Dr. Adrian [facility] lesion excision. He was seen in consultation [...] penicillan CAD (coronary artery disease) Cancer ([facility]) [id number] Coronary artery calcification Dental disease chipped teeth, [...] STENT 04/26/2023 COLONOSCOPY 2023 CORONARY STENT PLACEMENT [id number] ORTHOPEDIC SURGERY repair to clavical OTHER SURGICAL [...] with an associated skin paddle in his paimiut blood supply. This will then be harvested [...] - Encouraged nicotine minimization - To see business process coordinator today. - All questions regarding pre-op, intra-op, [...] who will do the reconstruction for Mr. Peerz while we do the resection. They plan [...] penicillan CAD (coronary artery disease) Cancer (CMS/HCC) 19462039 Coronary artery calcification Dental disease chipped teeth, [...] STENT 04/26/2023 COLONOSCOPY 2023 CORONARY STENT PLACEMENT [id number] ORTHOPEDIC SURGERY repair to clavical OTHER SURGICAL [...] Description 11/26/2025 10:45 AM EST Office Visit [facility] Plastic & Reconstructive Surgery [address] [place] [address] Marvin Santana MD [address] [address] Scheduled Referrals Name Type Priority Associated Diagnoses Order Schedule Discharge Ambulatory referral to NON Home Health Outpatient Referral Routine Floor of mouth squamous cell carcinoma 1 Occurrences starting 08/22/2025 until 02/23/2027 Discharge Ambulatory referral to NON [facility] Outpatient Referral Routine Floor of mouth squamous [...] OXYGEN THERAPY Routine 08/28/2025 8:00 PM EDT RI SPLIT GRFT TRUNK,ARM,LEG <100 SQCM 08/28/2025 4:20 PM EDT 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 Needs Dermatome, skin graft mesher, Artiss 4 cc and sprayer, xeroform, telfa, epinephrine/saline, tegaderm, 4-0 vicryl rapide, adaptic, silver dermanet RI SPLIT GRFT,TRUNK,ARM,LEG EA 100 SQCM 08/28/2025 4:20 [...] - 4.5 mg/dL 08/30/2025 3:39 AM EDT [facility] Blood Venous blood specimen / Unknown Venipuncture / Unknown 08/30/2025 3:00 AM EDT 08/30/2025 3:11 AM EDT us Sin Min Nancy Singletary DMD, MD LAB BLOOD ORDERABLES Melida l Result [facility] [address] [place] [address] * Magnesium, Plasma (08/30/2025 3:00 AM EDT) Magnesium, Plasma 2.4 1.9 - 2.4 mg/dL 08/30/2025 3:39 AM EDT [facility] Blood Venous blood specimen / Unknown Venipuncture / Unknown 08/30/2025 3:00 AM EDT 08/30/2025 3:11 AM EDT us Sin Min Nancy Singletary DMD, MD LAB BLOOD ORDERABLES Melida l Result Performing Organization Address [facility] Co de Phone Number [facility] [address] [place] [address] * (ABNORMAL) CBC W/O Differential (08/30/2025 3:00 AM EDT) WBC Count 10.23 3.70 - 10.30 10*3/uL LAB HEMATOLOGY METHOD 08/30/2025 3:18 AM EDT [facility] RBC Count 3.18(L) 4.60 - 6.10 10*6/uL LAB HEMATOLOGY METHOD 08/30/2025 3:18 AM EDT [facility] HGB 9.9(L) 13.7 - 17.5 g/dL LAB HEMATOLOGY METHOD 08/30/2025 3:18 AM EDT [facility] HCT 30.3(L) 40.0 - 51.0 % LAB HEMATOLOGY METHOD 08/30/2025 3:18 AM EDT [facility] Platelet Count 550(H) 155 - 369 10*3/uL LAB HEMATOLOGY METHOD 08/30/2025 3:18 AM EDT [facility] MCV 95 79 - 98 fL LAB HEMATOLOGY METHOD 08/30/2025 3:18 AM EDT [facility] MCH 31.1 26.0 - 32.0 pg LAB HEMATOLOGY METHOD 08/30/2025 3:18 AM EDT [facility] MCHC 32.7 30.7 - 35.5 g/dL LAB HEMATOLOGY METHOD 08/30/2025 3:18 AM EDT [facility] RDW 13.2 11.5 - 14.5 % LAB HEMATOLOGY METHOD 08/30/2025 3:18 AM EDT [facility] MPV 8.7(L) 8.8 - 12.5 fL LAB HEMATOLOGY METHOD 08/30/2025 3:18 AM EDT [facility] nRBC 0.0 <=0.0 per 100 WBCs LAB HEMATOLOGY METHOD 08/30/2025 3:18 AM EDT [facility] Blood Venous blood specimen / Unknown Venipuncture / Unknown 08/30/2025 3:00 AM EDT 08/30/2025 3:11 AM EDT us Sin Min M Hayder [place] MD LAB BLOOD ORDERABLES Melida l Result [facility] [address] [place] [address] * (ABNORMAL) Basic Metabolic Panel, Plasma (08/30/2025 3:00 AM EDT) Glucose, Plasma 113(H) 74 - 99 mg/dL 08/30/2025 3:39 AM EDT [facility] BUN, Plasma 20 7 - 21 mg/dL 08/30/2025 3:39 AM EDT [facility] Creatinine, Plasma 0.68(L) 0.70 - 1.20 mg/dL 08/30/2025 3:39 AM EDT [facility] BUN/Creatinine Ratio 29 08/30/2025 3:39 AM EDT [facility] Sodium, Plasma 137 136 - 145 mmol/L 08/30/2025 3:39 AM EDT [facility] Potassium, Plasma 4.4 3.6 - 4.9 mmol/L 08/30/2025 3:39 AM EDT [facility] Chloride, Plasma 100 97 - 107 mmol/L 08/30/2025 3:39 AM EDT [facility] CO2, Plasma 28 22 - 29 mmol/L 08/30/2025 3:39 AM EDT [facility] Anion Gap 9 6 - 16 mmol/L 08/30/2025 3:39 AM EDT [facility] Total Calcium, Plasma 9.2 8.9 - 10.2 mg/dL 08/30/2025 3:39 AM EDT [facility] eGFRcr 111.8 mL/min/1.7 3m*2 08/30/2025 3:39 AM EDT [facility] Comment:Reported eGFRcr in m L/min/1.73m2 is based the CKD-EPI 2020 equation that does not use a race coefficient. Blood Venous blood specimen / Unknown Venipuncture / Unknown 08/30/2025 3:00 AM EDT 08/30/2025 3:11 AM EDT us Sin Min Nancy Singletary DMD, MD LAB BLOOD ORDERABLES Melida l Result Performing Organization Address [facility] Co de Phone Number [facility] [facility] [address] [place] [address] * Phosphorus, Plasma (08/29/2025 2:37 AM EDT) Phosphorus, Plasma 4.1 2.5 - 4.5 mg/dL 08/29/2025 3:13 AM EDT [facility] Blood Venous blood specimen / Unknown Venipuncture / Unknown 08/29/2025 2:37 AM EDT 08/29/2025 2:44 AM EDT us Sin Min Nancy Singletary DMD, MD LAB BLOOD ORDERABLES Melida l Result [facility] [address] [place] [address] * Magnesium, Plasma (08/29/2025 2:37 AM EDT) Magnesium, Plasma 2.2 1.9 - 2.4 mg/dL 08/29/2025 3:13 AM EDT [facility] Blood Venous blood specimen / Unknown Venipuncture / Unknown 08/29/2025 2:37 AM EDT 08/29/2025 2:44 AM EDT us Sin Min M Hayder [place] MD LAB BLOOD ORDERABLES Melida mae Result [facility] [address] [place] [address] * (ABNORMAL) CBC W/O Differential (08/29/2025 2:37 AM EDT) WBC Count 11.08(H) 3.70 - 10.30 10*3/uL LAB HEMATOLOGY METHOD 08/29/2025 2:57 AM EDT [facility] RBC Count 3.09(L) 4.60 - 6.10 10*6/uL LAB HEMATOLOGY METHOD 08/29/2025 2:57 AM EDT [facility] HGB 9.6(L) 13.7 - 17.5 g/dL LAB HEMATOLOGY METHOD 08/29/2025 2:57 AM EDT [facility] HCT 29.0(L) 40.0 - 51.0 % LAB HEMATOLOGY METHOD 08/29/2025 2:57 AM EDT [facility] Platelet Count 547(H) 155 - 369 10*3/uL LAB HEMATOLOGY METHOD 08/29/2025 2:57 AM EDT [facility] MCV 94 79 - 98 fL LAB HEMATOLOGY METHOD 08/29/2025 2:57 AM EDT [facility] MCH 31.1 26.0 - 32.0 pg LAB HEMATOLOGY METHOD 08/29/2025 2:57 AM EDT [facility] MCHC 33.1 30.7 - 35.5 g/dL LAB HEMATOLOGY METHOD 08/29/2025 2:57 AM EDT [facility] RDW 13.1 11.5 - 14.5 % LAB HEMATOLOGY METHOD 08/29/2025 2:57 AM EDT [facility] MPV 8.6(L) 8.8 - 12.5 fL LAB HEMATOLOGY METHOD 08/29/2025 2:57 AM EDT [facility] nRBC 0.0 <=0.0 per 100 WBCs LAB HEMATOLOGY METHOD 08/29/2025 2:57 AM EDT [facility] Blood Venous blood specimen / Unknown Venipuncture / Unknown 08/29/2025 2:37 AM EDT 08/29/2025 2:44 AM EDT us Sin Min M Hayder [place] MD LAB BLOOD ORDERABLES Melida l Result [facility] [address] [place] [address] * (ABNORMAL) Basic Metabolic Panel, Plasma (08/29/2025 2:37 AM EDT) Glucose, Plasma 110(H) 74 - 99 mg/dL 08/29/2025 3:13 AM EDT [facility] BUN, Plasma 19 7 - 21 mg/dL 08/29/2025 3:13 AM EDT [facility] Creatinine, Plasma 0.72 0.70 - 1.20 mg/dL 08/29/2025 3:13 AM EDT [facility] BUN/Creatinine Ratio 26 08/29/2025 3:13 AM EDT [facility] Sodium, Plasma 138 136 - 145 mmol/L 08/29/2025 3:13 AM EDT [facility] Potassium, Plasma 3.8 3.6 - 4.9 mmol/L 08/29/2025 3:13 AM EDT [facility] Chloride, Plasma 100 97 - 107 mmol/L 08/29/2025 3:13 AM EDT [facility] CO2, Plasma 25 22 - 29 mmol/L 08/29/2025 3:13 AM EDT [facility] Anion Gap 13 6 - 16 mmol/L 08/29/2025 3:13 AM EDT [facility] Total Calcium, Plasma 9.0 8.9 - 10.2 mg/dL 08/29/2025 3:13 AM EDT [facility] eGFRcr 109.9 mL/min/1.7 3m*2 08/29/2025 3:13 AM EDT [facility] Comment:Reported eGFRcr in m L/min/1.73m2 is based the CKD-EPI 2020 equation that does not use a race coefficient. Blood Venous blood specimen / Unknown Venipuncture / Unknown 08/29/2025 2:37 AM EDT 08/29/2025 2:44 AM EDT Khadar Singletary DMD, MD LAB BLOOD ORDERABLES Melida l Result Performing Organization Address [facility] Co de Phone Number [facility] [address] [place] [address] * (ABNORMAL) POCT glucose meter (08/28/2025 5:41 [...] Comment 08/28/2025 5:42 AM EDT [facility] Gill Box Fixer ID RalphLavonne Garvin 08/28/2025 5:42 AM EDT [facility] Device ID [id number] 08/28/2025 5:42 AM EDT [facility] Specimen Type POC Capillary 08/28/2025 5:42 AM EDT [facility] Blood Capillary blood specimen / Unknown 08/28/2025 5:41 AM EDT 08/28/2025 5:42 AM EDT Alvaro Adrian DMD, MD LAB POINT OF CA RE TEST DOCKED DEVICE UNSOLICITED RESULTS Final Result Performing Organization Address [facility] de Phone Number [facility] [address] [place] [address] * Phosphorus, Plasma (08/28/2025 3:54 AM EDT) [facility] Phosphorus, Plasma 4.3 2.5 - 4.5 mg/dL 08/28/2025 4:29 AM EDT [facility] Blood Venous blood specimen / Unknown Venipuncture / Unknown 08/28/2025 3:54 AM EDT 08/28/2025 3:59 AM EDT us Sin Min Nancy Singletary DMD, MD LAB BLOOD ORDERABLES Melida l Result [facility] [address] [place] [address] * Magnesium, Plasma (08/28/2025 3:54 AM EDT) Magnesium, Plasma 2.2 1.9 - 2.4 mg/dL 08/28/2025 4:29 AM EDT [facility] Blood Venous blood specimen / Unknown Venipuncture / Unknown 08/28/2025 3:54 AM EDT 08/28/2025 3:59 AM EDT us Sin Min Nancy Singletary DMD, MD LAB BLOOD ORDERABLES Melida l Result Performing Organization Address City/[facility] Co de Phone Number [facility] [address] [place] [address] * (ABNORMAL) CBC W/O Differential (08/28/2025 3:54 AM EDT) WBC Count 10.56(H) 3.70 - 10.30 10*3/uL LAB HEMATOLOGY METHOD 08/28/2025 4:07 AM EDT [facility] RBC Count 3.08(L) 4.60 - 6.10 10*6/uL LAB HEMATOLOGY METHOD 08/28/2025 4:07 AM EDT [facility] HGB 9.5(L) 13.7 - 17.5 g/dL LAB HEMATOLOGY METHOD 08/28/2025 4:07 AM EDT [facility] HCT 28.8(L) 40.0 - 51.0 % LAB HEMATOLOGY METHOD 08/28/2025 4:07 AM EDT [facility] Platelet Count 552(H) 155 - 369 10*3/uL LAB HEMATOLOGY METHOD 08/28/2025 4:07 AM EDT [facility] MCV 94 79 - 98 fL LAB HEMATOLOGY METHOD 08/28/2025 4:07 AM EDT [facility] MCH 30.8 26.0 - 32.0 pg LAB HEMATOLOGY METHOD 08/28/2025 4:07 AM EDT [facility] MCHC 33.0 30.7 - 35.5 g/dL LAB HEMATOLOGY METHOD 08/28/2025 4:07 AM EDT [facility] RDW 13.1 11.5 - 14.5 % LAB HEMATOLOGY METHOD 08/28/2025 4:07 AM EDT [facility] MPV 8.7(L) 8.8 - 12.5 fL LAB HEMATOLOGY METHOD 08/28/2025 4:07 AM EDT [facility] nRBC 0.0 <=0.0 per 100 WBCs LAB HEMATOLOGY METHOD 08/28/2025 4:07 AM EDT [facility] Blood Venous blood specimen / Unknown Venipuncture / Unknown 08/28/2025 3:54 AM EDT 08/28/2025 3:59 AM EDT us Sin Min M Hayder [place] MD LAB BLOOD ORDERABLES Melida l Result [facility] [address] [place] [address] * (ABNORMAL) Basic Metabolic Panel, Plasma (08/28/2025 3:54 AM EDT) Glucose, Plasma 101(H) 74 - 99 mg/dL 08/28/2025 4:29 AM EDT [facility] BUN, Plasma 18 7 - 21 mg/dL 08/28/2025 4:29 AM EDT [facility] Creatinine, Plasma 0.62(L) 0.70 - 1.20 mg/dL 08/28/2025 4:29 AM EDT [facility] BUN/Creatinine Ratio 29 08/28/2025 4:29 AM EDT [facility] Sodium, Plasma 136 136 - 145 mmol/L 08/28/2025 4:29 AM EDT [facility] Potassium, Plasma 4.2 3.6 - 4.9 mmol/L 08/28/2025 4:29 AM EDT [facility] Chloride, Plasma 99 97 - 107 mmol/L 08/28/2025 4:29 AM EDT [facility] CO2, Plasma 28 22 - 29 mmol/L 08/28/2025 4:29 AM EDT [facility] Anion Gap 9 6 - 16 mmol/L 08/28/2025 4:29 AM EDT [facility] Total Calcium, Plasma 9.3 8.9 - 10.2 mg/dL 08/28/2025 4:29 AM EDT [facility] eGFRcr 115.0 mL/min/1.7 3m*2 08/28/2025 4:29 AM EDT [facility] Comment:Reported eGFRcr in m L/min/1.73m2 is based the CKD-EPI 2020 equation that does not use a race coefficient. Blood Venous blood specimen / Unknown Venipuncture / Unknown 08/28/2025 3:54 AM EDT 08/28/2025 3:59 AM EDT us Sin Min Nancy Singletary DMD, MD LAB BLOOD ORDERABLES Melida l Result Performing Organization Address City/[facility]/ZIP Co de Phone Number [facility] [address] [place] [address] * Type and Screen (08/28/2025 3:54 AM [...] Co de Phone Number BLOOD BANK [address] [place] [address], [place] * POCT glucose meter (08/27/2025 11:01 PM EDT) POCT Glucose 97 74 - 99 mg/dL 08/27/2025 11:03 PM EDT [facility] Comment:Accuracy of a glucos e result [...] Comment 08/27/2025 11:03 PM EDT [facility] Gill Box Fixer ID Lavonne Mccauley 08/27/2025 11:03 PM EDT [facility] Device ID [id number] 08/27/2025 11:03 PM EDT [facility] Specimen Type POC Capillary 08/27/2025 11:03 PM EDT [facility] Blood Capillary blood specimen / Unknown 08/27/2025 11:01 PM EDT 08/27/2025 11:03 PM EDT Alvaro Adrian DMD, MD LAB POINT OF CA RE TEST DOCKED DEVICE UNSOLICITED RESULTS Final Result Performing Organization Address City/State/[facility] Co de Phone Number [facility] [address] [place] [address] * (ABNORMAL) POCT glucose meter (08/27/2025 5:49 PM EDT) [facility] Signature POCT Glucose 119(H) 74 - 99 mg/dL [...] 08/27/2025 5:54 PM EDT [facility] Gill Box Fixer ID Kanika Garay 08/27/2025 5:54 PM EDT [facility] Device ID [id number] 08/27/2025 5:54 PM EDT [facility] Specimen Type POC Capillary 08/27/2025 5:54 PM EDT [facility] Blood Capillary blood specimen / Unknown 08/27/2025 5:49 PM EDT 08/27/2025 5:54 PM EDT us Alvaro Adrian DMD, MD LAB POINT OF CT RE TEST DOCKED DEVICE UNSOLICITED RESULTS Final Result Performing Organization Address City/[facility] Co de Phone Number [facility] [address] [place] [address] * (ABNORMAL) POCT glucose meter (08/27/2025 11:38 [...] for testing. Comment 08/27/2025 11:40 AM EDT [facility] Gill Box Fixer ID Kanika Garay 08/27/2025 11:40 AM EDT [facility] Device ID [id number] 08/27/2025 11:40 AM EDT [facility] Specimen Type POC Capillary 08/27/2025 11:40 AM EDT [facility] Blood Capillary blood specimen / Unknown 08/27/2025 11:38 AM EDT 08/27/2025 11:40 AM EDT us Alvaro Adrian DMD, MD LAB POINT OF CT RE TEST DOCKED DEVICE UNSOLICITED RESULTS Final Result Performing Organization Address City/[facility] Co de Phone Number [facility] [address] [place] [address] * (ABNORMAL) POCT glucose meter (08/27/2025 5:42 [...] Comment 08/27/2025 5:43 AM EDT [facility] Gill Box Fixer ID Kirsty Garcia 08/27/2025 5:43 AM EDT [facility] Device ID [id number] 08/27/2025 5:43 AM EDT [facility] Specimen Type POC Capillary 08/27/2025 5:43 AM EDT [facility] Blood Capillary blood specimen / Unknown 08/27/2025 5:42 AM EDT 08/27/2025 5:43 AM EDT us Alvaro Adrian DMD, MD LAB POINT OF CA RE TEST DOCKED DEVICE UNSOLICITED RESULTS Final Result Performing Organization Address City/[facility] Co vt Phone Number [facility] [address] [place] [address] * Phosphorus, Plasma (08/27/2025 3:44 AM EDT) Phosphorus, Plasma 3.5 2.5 - 4.5 mg/dL 08/27/2025 4:29 AM EDT [facility] Blood Venous blood specimen / Unknown Venipuncture / Unknown 08/27/2025 3:44 AM EDT 08/27/2025 3:59 AM EDT us Sin Min Nancy Sinlgetary DMD, MD LAB BLOOD ORDERABLES Melida l Result Performing Organization Address [facility] Co de Phone Number [facility] [address] [place] [address] * Magnesium, Plasma (08/27/2025 3:44 AM EDT) Magnesium, Plasma 2.1 1.9 - 2.4 mg/dL 08/27/2025 4:29 AM EDT [facility] Blood Venous blood specimen / Unknown Venipuncture / Unknown 08/27/2025 3:44 AM EDT 08/27/2025 3:59 AM EDT us Sin Min Nancy Singletary DMD, MD LAB BLOOD ORDERABLES Melida l Result Performing Organization Address City/[facility]/ZIP Co de Phone Number [facility] [address] [place] [address] * (ABNORMAL) CBC W/O Differential (08/27/2025 3:44 AM EDT) WBC Count 10.56(H) 3.70 - 10.30 10*3/uL LAB HEMATOLOGY METHOD 08/27/2025 4:13 AM EDT [facility] RBC Count 2.99(L) 4.60 - 6.10 10*6/uL LAB HEMATOLOGY METHOD 08/27/2025 4:13 AM EDT [facility] HGB 9.3(L) 13.7 - 17.5 g/dL LAB HEMATOLOGY METHOD 08/27/2025 4:13 AM EDT [facility] HCT 28.1(L) 40.0 - 51.0 % LAB HEMATOLOGY METHOD 08/27/2025 4:13 AM EDT [facility] Platelet Count 483(H) 155 - 369 10*3/uL LAB HEMATOLOGY METHOD 08/27/2025 4:13 AM EDT [facility] MCV 94 79 - 98 fL LAB HEMATOLOGY METHOD 08/27/2025 4:13 AM EDT [facility] MCH 31.1 26.0 - 32.0 pg LAB HEMATOLOGY METHOD 08/27/2025 4:13 AM EDT [facility] MCHC 33.1 30.7 - 35.5 g/dL LAB HEMATOLOGY METHOD 08/27/2025 4:13 AM EDT [facility] RDW 12.9 11.5 - 14.5 % LAB HEMATOLOGY METHOD 08/27/2025 4:13 AM EDT [facility] MPV 8.9 8.8 - 12.5 fL LAB HEMATOLOGY METHOD 08/27/2025 4:13 AM EDT [facility] nRBC 0.0 <=0.0 per 100 WBCs LAB HEMATOLOGY METHOD 08/27/2025 4:13 AM EDT [facility] Blood Venous blood specimen / Unknown Venipuncture / Unknown 08/27/2025 3:44 AM EDT 08/27/2025 4:00 AM EDT us Sin Min M Hayder [place] MD LAB BLOOD ORDERABLES Melida l Result [facility] [address] [place] [address] * (ABNORMAL) Basic Metabolic Panel, Plasma (08/27/2025 3:44 AM EDT) Glucose, Plasma 99 74 - 99 mg/dL 08/27/2025 4:29 AM EDT [facility] BUN, Plasma 17 7 - 21 mg/dL 08/27/2025 4:29 AM EDT [facility] Creatinine, Plasma 0.60(L) 0.70 - 1.20 mg/dL 08/27/2025 4:29 AM EDT [facility] BUN/Creatinine Ratio 28 08/27/2025 4:29 AM EDT [facility] Sodium, Plasma 135(L) 136 - 145 mmol/L 08/27/2025 4:29 AM EDT [facility] Potassium, Plasma 4.2 3.6 - 4.9 mmol/L 08/27/2025 4:29 AM EDT [facility] Chloride, Plasma 99 97 - 107 mmol/L 08/27/2025 4:29 AM EDT [facility] CO2, Plasma 28 22 - 29 mmol/L 08/27/2025 4:29 AM EDT [facility] Anion Gap 8 6 - 16 mmol/L 08/27/2025 4:29 AM EDT [facility] Total Calcium, Plasma 9.2 8.9 - 10.2 mg/dL 08/27/2025 4:29 AM EDT [facility] eGFRcr 116.1 mL/min/1.7 3m*2 08/27/2025 4:29 AM EDT [facility] Comment:Reported eGFRcr in m L/min/1.73m2 is based the CKD-EPI 2020 equation that does not use a race coefficient. Blood Venous blood specimen / Unknown Venipuncture / Unknown 08/27/2025 3:44 AM EDT 08/27/2025 3:59 AM EDT us Sin Min M Hayder [place] MD LAB BLOOD ORDERABLES Melida l Result [facility] [address] [place] [address] * (ABNORMAL) POCT glucose meter (08/26/2025 11:56 PM EDT) [facility] POCT Glucose 103(H) 74 - 99 [...] Comment 08/26/2025 11:57 PM EDT [facility] Gill Box Fixer ID Kirsty Garcia 08/26/2025 11:57 PM EDT [facility] Device ID [id number] 08/26/2025 11:57 PM EDT [facility] Specimen Type POC Capillary 08/26/2025 11:57 PM EDT [facility] Blood Capillary blood specimen / Unknown 08/26/2025 11:56 PM EDT 08/26/2025 11:57 PM EDT Alvaro Adrian DMD, MD LAB POINT OF CA RE TEST DOCKED DEVICE UNSOLICITED RESULTS Final Result Performing Organization Address [facility] Co de Phone Number [facility] [address] [place] [address] * (ABNORMAL) POCT glucose meter (08/26/2025 6:27 PM EDT) [facility] POCT Glucose 106(H) 74 - 99 [...] Comment 08/26/2025 6:28 PM EDT [facility] Gill Box Fixer ID Isha Lemos 08/26/2025 6:28 PM EDT [facility] Device ID [id number] 08/26/2025 6:28 PM EDT [facility] Specimen Type POC Capillary 08/26/2025 6:28 PM EDT [facility] Blood Capillary blood specimen / Unknown 08/26/2025 6:27 PM EDT 08/26/2025 6:28 PM EDT Alvaro Adrian DMD, MD LAB POINT OF CA RE TEST DOCKED DEVICE UNSOLICITED RESULTS Final Result [facility] [address] [place] [address] * Wound VAC Dressing Changes (Non-Instillation) (08/26/2025 [...] 08/26/2025 12:50 PM EDT [facility] Gill Box Fixer ID Isha Lemos 08/26/2025 12:50 PM EDT [facility] Device ID [id number] 08/26/2025 12:50 PM EDT [facility] Specimen Type POC Capillary 08/26/2025 12:50 PM EDT [facility] Blood Capillary blood specimen / Unknown 08/26/2025 12:48 PM EDT 08/26/2025 12:50 PM EDT us Alvaro Adrian DMD, MD LAB POINT OF CT RE TEST DOCKED DEVICE UNSOLICITED RESULTS Final Result Performing Organization Address City/[facility] Co de Phone Number [facility] [address] [place] [address] * POCT glucose meter (08/26/2025 5:44 AM EDT) [facility] POCT Glucose 95 74 - 99 [...] 08/26/2025 5:46 AM EDT [facility] Gill Box Fixer ID Latisha Winter 08/26/2025 5:46 AM EDT [facility] Device ID [id number] 08/26/2025 5:46 AM EDT [facility] Specimen Type POC Capillary 08/26/2025 5:46 AM EDT [facility] Blood Capillary blood specimen / Unknown 08/26/2025 5:44 AM EDT 08/26/2025 5:46 AM EDT us Alvaro Adrian DMD, MD LAB POINT OF CT RE TEST DOCKED DEVICE UNSOLICITED RESULTS Final Result Performing Organization Address City/[facility]/ZIP Co de Phone Number [facility] [address] [place] [address] * Phosphorus, Plasma (08/26/2025 3:27 AM EDT) Phosphorus, Plasma 4.0 2.5 - 4.5 mg/dL 08/26/2025 4:11 AM EDT [facility] Blood Venous blood specimen / Unknown Venipuncture / Unknown 08/26/2025 3:27 AM EDT 08/26/2025 3:38 AM EDT us Sin Min Nancy Singletary DMD, MD LAB BLOOD ORDERABLES Melida l Result Performing Organization Address [facility] Co de Phone Number [facility] [address] [place] [address] * Magnesium, Plasma (08/26/2025 3:27 AM EDT) Magnesium, Plasma 2.2 1.9 - 2.4 mg/dL 08/26/2025 4:11 AM EDT [facility] Blood Venous blood specimen / Unknown Venipuncture / Unknown 08/26/2025 3:27 AM EDT 08/26/2025 3:38 AM EDT us Sin Min Nancy Singletary DMD, MD LAB BLOOD ORDERABLES Melida l Result Performing Organization Address [facility] Phone Number [facility] [address] [place] [address] * (ABNORMAL) CBC W/O Differential (08/26/2025 3:27 AM EDT) Pathologist [facility] WBC Count 11.66(H) 3.70 - 10.30 10*3/uL LAB HEMATOLOGY METHOD 08/26/2025 3:47 AM EDT [facility] RBC Count 3.00(L) 4.60 - 6.10 10*6/uL LAB HEMATOLOGY METHOD 08/26/2025 3:47 AM EDT [facility] HGB 9.2(L) 13.7 - 17.5 g/dL LAB HEMATOLOGY METHOD 08/26/2025 3:47 AM EDT [facility] HCT 28.1(L) 40.0 - 51.0 % LAB HEMATOLOGY METHOD 08/26/2025 3:47 AM EDT [facility] Platelet Count 455(H) 155 - 369 10*3/uL LAB HEMATOLOGY METHOD 08/26/2025 3:47 AM EDT [facility] MCV 94 79 - 98 fL LAB HEMATOLOGY METHOD 08/26/2025 3:47 AM EDT [facility] MCH 30.7 26.0 - 32.0 pg LAB HEMATOLOGY METHOD 08/26/2025 3:47 AM EDT [facility] MCHC 32.7 30.7 - 35.5 g/dL LAB HEMATOLOGY METHOD 08/26/2025 3:47 AM EDT [facility] RDW 12.6 11.5 - 14.5 % LAB HEMATOLOGY METHOD 08/26/2025 3:47 AM EDT [facility] MPV 9.0 8.8 - 12.5 fL LAB HEMATOLOGY METHOD 08/26/2025 3:47 AM EDT [facility] nRBC 0.0 <=0.0 per 100 WBCs LAB HEMATOLOGY METHOD 08/26/2025 3:47 AM EDT [facility] Blood Venous blood specimen / Unknown Venipuncture / Unknown 08/26/2025 3:27 AM EDT 08/26/2025 3:38 AM EDT us Sin Min M Hayder [place] MD LAB BLOOD ORDERABLES Melida mae Result [facility] [address] [place] [address] * (ABNORMAL) Basic Metabolic Panel, Plasma (08/26/2025 3:27 AM EDT) Glucose, Plasma 101(H) 74 - 99 mg/dL 08/26/2025 4:11 AM EDT [facility] BUN, Plasma 19 7 - 21 mg/dL 08/26/2025 4:11 AM EDT [facility] Creatinine, Plasma 0.59(L) 0.70 - 1.20 mg/dL 08/26/2025 4:11 AM EDT [facility] BUN/Creatinine Ratio 32 08/26/2025 4:11 AM EDT [facility] Sodium, Plasma 138 136 - 145 mmol/L 08/26/2025 4:11 AM EDT [facility] Potassium, Plasma 4.3 3.6 - 4.9 mmol/L 08/26/2025 4:11 AM EDT [facility] Chloride, Plasma 101 97 - 107 mmol/L 08/26/2025 4:11 AM EDT [facility] CO2, Plasma 25 22 - 29 mmol/L 08/26/2025 4:11 AM EDT [facility] Anion Gap 12 6 - 16 mmol/L 08/26/2025 4:11 AM EDT [facility] Total Calcium, Plasma 8.9 8.9 - 10.2 mg/dL 08/26/2025 4:11 AM EDT [facility] eGFRcr 116.7 mL/min/1.7 3m*2 08/26/2025 4:11 AM EDT [facility] Comment:Reported eGFRcr in m L/min/1.73m2 is based the CKD-EPI 2020 equation that does not use a race coefficient. Blood Venous blood specimen / Unknown Venipuncture / Unknown 08/26/2025 3:27 AM EDT 08/26/2025 3:38 AM EDT us Sin Min M Hayder [place] MD LAB BLOOD ORDERABLES Melida l Result [facility] [address] [place] [address] * (ABNORMAL) POCT glucose meter (08/25/2025 11:38 [...] Comment 08/26/2025 12:00 AM EDT [facility] Gill Box Fixer ID Hailey Lund 08/26/2025 12:00 AM EDT [facility] Device ID [id number] 08/26/2025 12:00 AM EDT HEALTHCARE LAB Specimen Type POC Capillary 08/26/2025 12:00 AM EDT HEALTHCARE LAB Blood Capillary blood specimen / Unknown 08/25/2025 11:38 PM EDT 08/26/2025 12:00 AM EDT us Alvaro Adrian DMD, MD LAB POINT OF CA RE TEST DOCKED DEVICE UNSOLICITED RESULTS Final Result Performing Organization Address City/[facility] Co de Phone Number HEALTHCARE LAB [address] [place] [address] * POCT glucose meter (08/25/2025 5:08 PM [...] Comment 08/25/2025 5:10 PM EDT HEALTHCARE LAB Gill Box Fixer ID Marily Cao 5:10 PM EDT HEALTHCARE LAB Device ID [id number] 08/25/2025 5:10 PM EDT HEALTHCARE LAB Specimen Type POC Capillary 08/25/2025 5:10 PM EDT HEALTHCARE LAB Blood Capillary blood specimen / Unknown 08/25/2025 5:08 PM EDT 08/25/2025 5:10 PM EDT us Alvaro Adrian DMD, MD LAB POINT OF CT RE TEST DOCKED DEVICE UNSOLICITED RESULTS Final Result Performing Organization Address City/[facility] Co de Phone Number HEALTHCARE LAB [address] [place] [address] * (ABNORMAL) POCT glucose meter (08/25/2025 11:42 [...] Comment 08/25/2025 12:00 PM EDT HEALTHCARE LAB Gill Box Fixer ID Marily Cao 12:00 PM EDT [facility] Device ID [id number] 08/25/2025 12:00 PM EDT HEALTHCARE LAB Specimen Type POC Capillary 08/25/2025 12:00 PM EDT HEALTHCARE LAB Blood Capillary blood specimen / Unknown 08/25/2025 11:42 AM EDT 08/25/2025 12:00 PM EDT us Alvaro Adrian DMD, MD LAB POINT OF CA RE TEST DOCKED DEVICE UNSOLICITED RESULTS Final Result Performing Organization Address City/State/[facility] Co de Phone Number HEALTHCARE LAB [address] [place] [address] * POCT glucose meter (08/25/2025 5:02 AM EDT) [facility] POCT Glucose 83 [phone] - [...] Comment 08/25/2025 5:04 AM EDT HEALTHCARE LAB Gill Box Fixer ID Maxwell Ortega 5:04 AM EDT HEALTHCARE LAB Device ID [id number] 08/25/2025 5:04 AM EDT HEALTHCARE LAB Specimen Type POC Capillary 08/25/2025 5:04 AM EDT HEALTHCARE LAB Blood Capillary blood specimen / Unknown 08/25/2025 5:02 AM EDT 08/25/2025 5:04 AM EDT us Alvaro B McMaine DMD, MD LAB POINT OF CT RE TEST DOCKED DEVICE UNSOLICITED RESULTS Final Result Performing Organization Address City/[facility] Co de Phone Number HEALTHCARE LAB [address] [place] [address] * (ABNORMAL) POCT glucose meter (08/24/2025 11:06 [...] Comment 08/24/2025 11:08 PM EDT HEALTHCARE LAB Gill Box Fixer ID Hailey Lund 08/24/2025 11:08 PM EDT HEALTHCARE LAB Device ID [id number] 08/24/2025 11:08 PM [address] [facility] Specimen Type POC Capillary 08/24/2025 11:08 PM ED[address] [facility] Blood Capillary blood specimen / Unknown 08/24/2025 11:06 PM EDT 08/24/2025 11:08 PM EDT us Alvaro Adrian DMD, MD LAB POINT OF CT RE TEST DOCKED DEVICE UNSOLICITED RESULTS Final Result Performing Organization Address City/[facility] Co de Phone Number [facility] [address] [place] [address] * (ABNORMAL) POCT glucose meter (08/24/2025 5:33 [...] 08/24/2025 5:35 PM EDT [facility] Gill Box Fixer ID Renee Mills 08/24/2025 5:35 PM EDT [facility] Device ID [id number] 08/24/2025 5:35 PM EDT [facility] Specimen Type POC Capillary 08/24/2025 5:35 PM EDT [facility] Blood Capillary blood specimen / Unknown 08/24/2025 5:33 PM EDT 08/24/2025 5:35 PM EDT us Alvaro Adrian DMD, MD LAB POINT OF [place] RE TEST DOCKED DEVICE UNSOLICITED RESULTS Final Result Performing Organization Address City/[facility] Co de Phone Number [facility] [address] [place] [address] * (ABNORMAL) POCT glucose meter (08/24/2025 12:32 [...] Comment 08/24/2025 12:38 PM EDT [facility] Gill Box Fixer ID Renee Mills 08/24/2025 12:38 PM EDT [facility]ALTH[facility]ARE LAB Device ID [id number] 08/24/2025 12:38 PM EDT [facility] Specimen Type POC Capillary 08/24/2025 12:38 PM EDT [facility] Blood Capillary blood specimen / Unknown 08/24/2025 12:32 PM EDT 08/24/2025 12:38 PM EDT us Alvaro Adrian DMD, MD LAB POINT OF CA RE TEST DOCKED DEVICE UNSOLICITED RESULTS Final Result Performing Organization Address City/[facility] Co de Phone Number [facility] [address] [place] [address] * POCT glucose meter (08/24/2025 5:57 AM EDT) Pathologist [facility] POCT Glucose 92 74 - 99 [...] Comment 08/24/2025 5:59 AM EDT [facility] Gill Box Fixer ID Morenita Lizama 025 5:59 AM EDT HEALTHCARE LAB Device ID [id number] 08/24/2025 5:59 AM EDT [facility] Specimen Type POC Capillary 08/24/2025 5:59 AM EDT [facility] Blood Capillary blood specimen / Unknown 08/24/2025 5:57 AM EDT 08/24/2025 5:59 AM EDT us Alvaro Adrian DMD, MD LAB POINT OF CA RE TEST DOCKED DEVICE UNSOLICITED RESULTS Final Result Performing Organization Address City/State/[facility] Co de Phone Number [facility] [address] [place] [id number] * (ABNORMAL) CBC W/O Differential (08/24/2025 3:29 AM EDT) Pathologist [facility] WBC Count 10.15 3.70 - 10.30 10*3/uL LAB HEMATOLOGY METHOD 08/24/2025 4:13 AM EDT [facility] RBC Count 2.95(L) 4.60 - 6.10 10*6/uL LAB HEMATOLOGY METHOD 08/24/2025 4:13 AM EDT [facility] HGB 9.1(L) 13.7 - 17.5 g/dL LAB HEMATOLOGY METHOD 08/24/2025 4:13 AM EDT [facility] HCT 27.7(L) 40.0 - 51.0 % LAB HEMATOLOGY METHOD 08/24/2025 4:13 AM EDT [facility] Platelet Count 381(H) 155 - 369 10*3/uL LAB HEMATOLOGY METHOD 08/24/2025 4:13 AM EDT [facility] MCV 94 79 - 98 fL LAB HEMATOLOGY METHOD 08/24/2025 4:13 AM EDT [facility] MCH 30.8 26.0 - 32.0 pg LAB HEMATOLOGY METHOD 08/24/2025 4:13 AM EDT [facility] MCHC 32.9 30.7 - 35.5 g/dL LAB HEMATOLOGY METHOD 08/24/2025 4:13 AM EDT [facility] RDW 12.4 11.5 - 14.5 % LAB HEMATOLOGY METHOD 08/24/2025 4:13 AM EDT [facility] MPV 9.4 8.8 - 12.5 fL LAB HEMATOLOGY METHOD 08/24/2025 4:13 AM EDT [facility] nRBC 0.0 <=0.0 per 100 WBCs LAB HEMATOLOGY METHOD 08/24/2025 4:13 AM EDT [facility] Blood Venous blood specimen / Unknown Venipuncture / Unknown 08/24/2025 3:29 AM EDT 08/24/2025 4:01 AM EDT us Alvaro Adrian DMD, MD LAB BLOOD ORDERABLES Fi nal Result [facility] [address] [place] [address] * (ABNORMAL) Basic Metabolic Panel, Plasma (08/24/2025 3:29 AM EDT) Glucose, Plasma 107(H) 74 - 99 mg/dL 08/24/2025 4:28 AM EDT [facility] BUN, Plasma 17 7 - 21 mg/dL 08/24/2025 4:28 AM EDT [facility] Creatinine, Plasma 0.59(L) 0.70 - 1.20 mg/dL 08/24/2025 4:28 AM EDT [facility] BUN/Creatinine Ratio 29 08/24/2025 4:28 AM EDT [facility] Sodium, Plasma 137 136 - 145 mmol/L 08/24/2025 4:28 AM EDT [facility] Potassium, Plasma 3.9 3.6 - 4.9 mmol/L 08/24/2025 4:28 AM EDT [facility] Chloride, Plasma 101 97 - 107 mmol/L 08/24/2025 4:28 AM EDT [facility] CO2, Plasma 27 22 - 29 mmol/L 08/24/2025 4:28 AM EDT [facility] Anion Gap 9 6 - 16 mmol/L 08/24/2025 4:28 AM EDT [facility] Total Calcium, Plasma 8.8(L) 8.9 - 10.2 mg/dL 08/24/2025 4:28 AM EDT [facility] eGFRcr 116.7 mL/min/1.7 3m*2 08/24/2025 4:28 AM EDT [facility] Comment:Reported eGFRcr in m L/min/1.73m2 is based the CKD-EPI 2020 equation that does not use a race coefficient. Blood Venous blood specimen / Unknown Venipuncture / Unknown 08/24/2025 3:29 AM EDT 08/24/2025 3:59 AM EDT us Alvaro Adrian DMD, MD LAB BLOOD ORDERABLES Fi nal Result Performing Organization Address City/[facility] Co de Phone Number [facility] [address] [place] [address] * Magnesium, Plasma (08/24/2025 3:29 AM EDT) Magnesium, Plasma 2.0 1.9 - 2.4 mg/dL 08/24/2025 4:28 AM EDT [facility] Blood Venous blood specimen / Unknown Venipuncture / Unknown 08/24/2025 3:29 AM EDT 08/24/2025 3:59 AM EDT us Alvaro Adrian DMD, MD LAB BLOOD ORDERABLES Fi nal Result [facility] [address] [place] [address] * Phosphorus, Plasma (08/24/2025 3:29 AM EDT) Phosphorus, Plasma 3.7 2.5 - 4.5 mg/dL 08/24/2025 4:28 AM EDT [facility] Blood Venous blood specimen / Unknown Venipuncture / Unknown 08/24/2025 3:29 AM EDT 08/24/2025 3:59 AM EDT Alvaro Adrian DMD, MD LAB BLOOD ORDERABLES Fi nal Result Performing Organization Address City/[facility]/ZIP Co de Phone Number [facility] [address] [place] [address] * (ABNORMAL) POCT glucose meter (08/24/2025 12:46 AM EDT) [facility] POCT Glucose 126(H) 74 - 99 mg/dL 08/24/2025 12:48 AM EDT [facility] Comment:Accuracy of a [...] Comment 08/24/2025 12:48 AM EDT [facility] Gill Box Fixer ID Morenita Lizama 025 12:48 AM EDT [facility] Device ID [id number] 08/24/2025 12:48 AM EDT [facility] Specimen Type POC Capillary 08/24/2025 12:48 AM EDT [facility] Blood Capillary blood specimen / Unknown 08/24/2025 12:46 AM EDT 08/24/2025 12:48 AM EDT us Alvaro Adrian DMD, MD LAB POINT OF CA RE TEST DOCKED DEVICE UNSOLICITED RESULTS Final Result [facility] [address] [place] [address] * POCT glucose meter (08/23/2025 6:45 PM EDT) [facility] POCT Glucose 83 74 - [...] 08/23/2025 6:47 PM EDT [facility] Gill Box Fixer ID Nicole Doss 08/23/2025 6:47 PM EDT [facility] Device ID [id number] 08/23/2025 6:47 PM EDT [facility] Specimen Type POC Capillary 08/23/2025 6:47 PM EDT [facility] Blood Capillary blood specimen / Unknown 08/23/2025 6:45 PM EDT 08/23/2025 6:47 PM EDT Alvaro Adrian DMD, MD LAB POINT OF CA RE TEST DOCKED DEVICE UNSOLICITED RESULTS Final Result [facility] [address] [place] [address] * POCT glucose meter (08/23/2025 1:07 PM EDT) [facility] POCT Glucose 98 74 - [...] 08/23/2025 1:10 PM EDT [facility] Gill Box Fixer ID Nicole Doss 08/23/2025 1:10 PM EDT [facility] Device ID [id number] 08/23/2025 1:10 PM EDT [facility] Specimen Type POC Capillary 08/23/2025 1:10 PM EDT [facility] Blood Capillary blood specimen / Unknown 08/23/2025 1:07 PM EDT 08/23/2025 1:10 PM EDT us Alvaro Adrian DMD, MD LAB POINT OF CA RE TEST DOCKED DEVICE UNSOLICITED RESULTS Final Result [facility] [address] [place] [address] * (ABNORMAL) CBC W/O Differential (08/23/2025 3:26 AM EDT) WBC Count 10.09 3.70 - 10.30 10*3/uL LAB HEMATOLOGY METHOD 08/23/2025 3:45 AM EDT [facility] RBC Count 3.11(L) 4.60 - 6.10 10*6/uL LAB HEMATOLOGY METHOD 08/23/2025 3:45 AM EDT [facility] HGB 9.5(L) 13.7 - 17.5 g/dL LAB HEMATOLOGY METHOD 08/23/2025 3:45 AM EDT [facility] HCT 29.1(L) 40.0 - 51.0 % LAB HEMATOLOGY METHOD 08/23/2025 3:45 AM EDT [facility] Platelet Count 326 155 - 369 10*3/uL LAB HEMATOLOGY METHOD 08/23/2025 3:45 AM EDT [facility] MCV 94 79 - 98 fL LAB HEMATOLOGY METHOD 08/23/2025 3:45 AM EDT [facility] MCH 30.5 26.0 - 32.0 pg LAB HEMATOLOGY METHOD 08/23/2025 3:45 AM EDT [facility] MCHC 32.6 30.7 - 35.5 g/dL LAB HEMATOLOGY METHOD 08/23/2025 3:45 AM EDT [facility] RDW 12.6 11.5 - 14.5 % LAB HEMATOLOGY METHOD 08/23/2025 3:45 AM EDT [facility] MPV 9.5 8.8 - 12.5 fL LAB HEMATOLOGY METHOD 08/23/2025 3:45 AM EDT [facility] nRBC 0.0 <=0.0 per 100 WBCs LAB HEMATOLOGY METHOD 08/23/2025 3:45 AM EDT [facility] Blood Venous blood specimen / Unknown Venipuncture / Unknown 08/23/2025 3:26 AM EDT 08/23/2025 3:34 AM EDT us Alvaro Adrian DMD, MD LAB BLOOD ORDERABLES Fi nal Result [facility] [address] [place] [address] * (ABNORMAL) Basic Metabolic Panel, Plasma (08/23/2025 3:26 AM EDT) Glucose, Plasma 100(H) 74 - 99 mg/dL 08/23/2025 4:07 AM EDT [facility] BUN, Plasma 15 7 - 21 mg/dL 08/23/2025 4:07 AM EDT [facility] Creatinine, Plasma 0.58(L) 0.70 - 1.20 mg/dL 08/23/2025 4:07 AM EDT [facility] BUN/Creatinine Ratio 26 08/23/2025 4:07 AM EDT [facility] Sodium, Plasma 137 136 - 145 mmol/L 08/23/2025 4:07 AM EDT [facility] Potassium, Plasma 4.0 3.6 - 4.9 mmol/L 08/23/2025 4:07 AM EDT [facility] Chloride, Plasma 102 97 - 107 mmol/L 08/23/2025 4:07 AM EDT [facility] CO2, Plasma 25 22 - 29 mmol/L 08/23/2025 4:07 AM EDT [facility] Anion Gap 10 6 - 16 mmol/L 08/23/2025 4:07 AM EDT [facility] Total Calcium, Plasma 8.7(L) 8.9 - 10.2 mg/dL 08/23/2025 4:07 AM EDT [facility] eGFRcr 117.3 mL/min/1.7 3m*2 08/23/2025 4:07 AM EDT [facility] Comment:Reported eGFRcr in m L/min/1.73m2 is based the CKD-EPI 2020 equation that does not use a race coefficient. Blood Venous blood specimen / Unknown Venipuncture / Unknown 08/23/2025 3:26 AM EDT 08/23/2025 3:35 AM EDT us Alvaro Adrian DMD, MD LAB BLOOD ORDERABLES Fi nal Result Performing Organization Address City/[facility]/[place] [address] * Magnesium, Plasma (08/23/2025 3:26 AM EDT) Magnesium, Plasma 2.0 1.9 - 2.4 mg/dL 08/23/2025 4:07 AM EDT [facility] Blood Venous blood specimen / Unknown Venipuncture / Unknown 08/23/2025 3:26 AM EDT 08/23/2025 3:35 AM EDT us Alvaro Adrian DMD, MD LAB BLOOD ORDERABLES Fi nal Result Performing Organization Address [facility] [place] [address] * Phosphorus, Plasma (08/23/2025 3:26 AM EDT) Phosphorus, Plasma 3.3 2.5 - 4.5 mg/dL 08/23/2025 4:07 AM EDT [facility] Blood Venous blood specimen / Unknown Venipuncture / Unknown 08/23/2025 3:26 AM EDT 08/23/2025 3:35 AM EDT us Alvaro Adrian DMD, MD LAB BLOOD ORDERABLES Fi nal Result [facility] [address] [place] [address] * Phosphorus (08/22/2025 5:02 AM EDT) Phosphorus, Plasma 3.1 2.5 - 4.5 mg/dL 08/22/2025 6:09 AM EDT [facility] Blood Venous blood specimen / Unknown Venipuncture / Unknown 08/22/2025 5:02 AM EDT 08/22/2025 5:33 AM EDT Marvin Santana MD LAB BLOOD ORDERABLES Fin al Result [facility] [address] [place] [address] * Magnesium (08/22/2025 5:02 AM EDT) Magnesium, Plasma 2.0 1.9 - 2.4 mg/dL 08/22/2025 6:09 AM EDT [facility] Blood Venous blood specimen / Unknown Venipuncture / Unknown 08/22/2025 5:02 AM EDT 08/22/2025 5:33 AM EDT Marvin Santana MD LAB BLOOD ORDERABLES Fin al Result Performing Organization Address City/[facility] Co de Phone Number [facility] [address] [place] [address] * (ABNORMAL) Basic metabolic panel (08/22/2025 5:02 AM EDT) Glucose, Plasma 95 74 - 99 mg/dL 08/22/2025 6:09 AM EDT [facility] BUN, Plasma 15 7 - 21 mg/dL 08/22/2025 6:09 AM EDT [facility] Creatinine, Plasma 0.52(L) 0.70 - 1.20 mg/dL 08/22/2025 6:09 AM EDT [facility] BUN/Creatinine Ratio 29 08/22/2025 6:09 AM EDT [facility] Sodium, Plasma 139 136 - 145 mmol/L 08/22/2025 6:09 AM EDT [facility] Potassium, Plasma 3.8 3.6 - 4.9 mmol/L 08/22/2025 6:09 AM EDT [facility] Chloride, Plasma 102 97 - 107 mmol/L 08/22/2025 6:09 AM EDT [facility] CO2, Plasma 27 22 - 29 mmol/L 08/22/2025 6:09 AM EDT [facility] Anion Gap 10 6 - 16 mmol/L 08/22/2025 6:09 AM EDT [facility] Total Calcium, Plasma 8.8(L) 8.9 - 10.2 mg/dL 08/22/2025 6:09 AM EDT [facility] eGFRcr 121.3 mL/min/1.7 3m*2 08/22/2025 6:09 AM EDT [facility] Comment:Reported eGFRcr in m L/min/1.73m2 is based the CKD-EPI 2020 equation that does not use a race coefficient. Blood Venous blood specimen / Unknown Venipuncture / Unknown 08/22/2025 5:02 AM EDT 08/22/2025 5:33 AM EDT us Marvin Santana MD LAB BLOOD ORDERABLES Fin al Result [facility] [address] [place] [address] * (ABNORMAL) CBC W/O Differential (08/22/2025 5:02 AM EDT) WBC Count 11.20(H) 3.70 - 10.30 10*3/uL LAB HEMATOLOGY METHOD 08/22/2025 5:44 AM EDT [facility] RBC Count 3.19(L) 4.60 - 6.10 10*6/uL LAB HEMATOLOGY METHOD 08/22/2025 5:44 AM EDT [facility] HGB 9.8(L) 13.7 - 17.5 g/dL LAB HEMATOLOGY METHOD 08/22/2025 5:44 AM EDT [facility] HCT 29.6(L) 40.0 - 51.0 % LAB HEMATOLOGY METHOD 08/22/2025 5:44 AM EDT [facility] Platelet Count 271 155 - 369 10*3/uL LAB HEMATOLOGY METHOD 08/22/2025 5:44 AM EDT [facility] MCV 93 79 - 98 fL LAB HEMATOLOGY METHOD 08/22/2025 5:44 AM EDT [facility] MCH 30.7 26.0 - 32.0 pg LAB HEMATOLOGY METHOD 08/22/2025 5:44 AM EDT [facility] MCHC 33.1 30.7 - 35.5 g/dL LAB HEMATOLOGY METHOD 08/22/2025 5:44 AM EDT [facility] RDW 12.6 11.5 - 14.5 % LAB HEMATOLOGY METHOD 08/22/2025 5:44 AM EDT [facility] MPV 9.5 8.8 - 12.5 fL LAB HEMATOLOGY METHOD 08/22/2025 5:44 AM EDT [facility] nRBC 0.0 <=0.0 per 100 WBCs LAB HEMATOLOGY METHOD 08/22/2025 5:44 AM EDT [facility] Blood Venous blood specimen / Unknown Venipuncture / Unknown 08/22/2025 5:02 AM EDT 08/22/2025 5:32 AM EDT us Marvin Santana MD LAB BLOOD ORDERABLES Fin al Result [facility] [address] [place] [address] * (ABNORMAL) CBC W/O Differential (08/20/2025 5:56 AM EDT) WBC Count 16.03(H) 3.70 - 10.30 10*3/uL LAB HEMATOLOGY METHOD 08/20/2025 6:17 AM EDT [facility] RBC Count 3.46(L) 4.60 - 6.10 10*6/uL LAB HEMATOLOGY METHOD 08/20/2025 6:17 AM EDT [facility] HGB 10.8(L) 13.7 - 17.5 g/dL LAB HEMATOLOGY METHOD 08/20/2025 6:17 AM EDT [facility] HCT 31.2(L) 40.0 - 51.0 % LAB HEMATOLOGY METHOD 08/20/2025 6:17 AM EDT [facility] Platelet Count 290 155 - 369 10*3/uL LAB HEMATOLOGY METHOD 08/20/2025 6:17 AM EDT [facility] MCV 90 79 - 98 fL LAB HEMATOLOGY METHOD 08/20/2025 6:17 AM EDT [facility] MCH 31.2 26.0 - 32.0 pg LAB HEMATOLOGY METHOD 08/20/2025 6:17 AM EDT [facility] MCHC 34.6 30.7 - 35.5 g/dL LAB HEMATOLOGY METHOD 08/20/2025 6:17 AM EDT [facility] RDW 12.6 11.5 - 14.5 % LAB HEMATOLOGY METHOD 08/20/2025 6:17 AM EDT [facility] MPV 9.7 8.8 - 12.5 fL LAB HEMATOLOGY METHOD 08/20/2025 6:17 AM EDT [facility] nRBC 0.0 <=0.0 per 100 WBCs LAB HEMATOLOGY METHOD 08/20/2025 6:17 AM EDT [facility] Blood Venous blood specimen / Unknown Venipuncture / Unknown 08/20/2025 5:56 AM EDT 08/20/2025 6:09 AM EDT us Marvin Santana MD LAB BLOOD ORDERABLES Fin al Result [facility] [address] [place] [address] * (ABNORMAL) Basic Metabolic Panel, Plasma (08/20/2025 5:56 AM EDT) Glucose, Plasma 140(H) 74 - 99 mg/dL 08/20/2025 6:39 AM EDT [facility] BUN, Plasma 16 7 - 21 mg/dL 08/20/2025 6:39 AM EDT [facility] Creatinine, Plasma 0.64(L) 0.70 - 1.20 mg/dL 08/20/2025 6:39 AM EDT [facility] BUN/Creatinine Ratio 25 08/20/2025 6:39 AM EDT [facility] Sodium, Plasma 136 136 - 145 mmol/L 08/20/2025 6:39 AM EDT [facility] Potassium, Plasma 5.2(H) 3.6 - 4.9 mmol/L 08/20/2025 6:39 AM EDT [facility] Comment:Hemolyzed, result ma y be falsely increased. Chloride, Plasma 101 97 - 107 mmol/L 08/20/2025 6:39 AM EDT [facility] CO2, Plasma 23 22 - 29 mmol/L 08/20/2025 6:39 AM EDT [facility] Anion Gap 12 6 - 16 mmol/L 08/20/2025 6:39 AM EDT [facility] Total Calcium, Plasma 8.6(L) 8.9 - 10.2 mg/dL 08/20/2025 6:39 AM EDT [facility] eGFRcr 113.9 mL/min/1.7 3m*2 08/20/2025 6:39 AM EDT [facility] Comment:Reported eGFRcr in m L/min/1.73m2 is based the CKD-EPI 2020 equation that does not use a race coefficient. Blood Venous blood specimen / Unknown Venipuncture / Unknown 08/20/2025 5:56 AM EDT 08/20/2025 6:08 AM EDT us Marvin Santana MD LAB BLOOD ORDERABLES Fin al Result Performing Organization Address City/[facility]/ZIP Co de Phone Number [facility] [address] [place] [address] * (ABNORMAL) Magnesium, Plasma (08/20/2025 5:56 AM EDT) Magnesium, Plasma 1.8(L) 1.9 - 2.4 mg/dL 08/20/2025 6:39 AM EDT [facility] Blood Venous blood specimen / Unknown Venipuncture / Unknown 08/20/2025 5:56 AM EDT 08/20/2025 6:08 AM EDT us Marvin Santana MD LAB BLOOD ORDERABLES Fin al Result [facility] [address] [place] [address] * Phosphorus, Plasma (08/20/2025 5:56 AM EDT) Phosphorus, Plasma 3.2 2.5 - 4.5 mg/dL 08/20/2025 6:39 AM EDT [facility] Blood Venous blood specimen / Unknown Venipuncture / Unknown 08/20/2025 5:56 AM EDT 08/20/2025 6:08 AM EDT us Marvin Santana MD LAB BLOOD ORDERABLES Fin al Result [facility] [address] [place] [address] * XR Abdomen 1 View (08/19/2025 8:37 [...] of the abdomen. COMPARISON: None. FINDINGS: Limited [id number] abdominal radiograph for the purpose of locating tube position. The tip of the feeding tube is within the proximal stomach. Procedure Note Patricio Trevino MD - 08/19/2025 CLINICAL INDICATION: DHT placement TECHNIQUE: Supine radiograph of the abdomen. COMPARISON: None. FINDINGS: Limited [id number] abdominal radiograph for the purpose of locatingtube [...] at day 1 08/21/2025 7:33 AM EDT [facility] Swab (Nares and Nini Rectal) Non-blood Collection / Unknown 08/19/2025 8:19 PM EDT 08/19/2025 8:30 PM EDT Narrative [facility] - 08/21/2025 7:33 AM EDT This test was developed and its performance characteristics determined by the [facility]. Although the media is FDA-approved, it is not FDA-approved for all specimen types submitted. The FDA has determined that such clearance or approval is not necessary. This test is used for surveillance purposes. It should not be regarded as investigational or for research. The [facility] is certified under the Clinical Laboratory Improvement Amendments of 1988 (CLIA-88) as qualified to perform high complexity clinical laboratory testing. Marvin Santana MD LAB MICROBIOLOGY - GENER AL ORDERABLES Final Result Performing Organization Address [facility] Co de Phone Number [facility] [address] [place] [address] * Cecelia auris Surveillance by PCR (08/19/2025 8:19 PM EDT) Cecelia auris PCR Result Not Detected Not Detected 08/21/2025 10:[address] [facility] Swab (Axilla and Groin) Non-blood Collection / Unknown 08/19/2025 8:19 PM EDT 08/19/2025 8:30 PM EDT Narrative [facility] - 08/21/2025 10:33 AM EDT This PCR assay was developed and its performance characteristics determined by [facility] as appropriate for clinical purposes. This assay has not been cleared or approved by the FDA, but is performed in a CLIA regulated laboratory that is qualified to perform high-complexity testing. Marvin Santana MD LAB MICROBIOLOGY - GENER AL ORDERABLES Final Result Performing Organization Address [facility] Co de Phone Number [facility] [address] [place] [address] * (ABNORMAL) Blood gas, arterial (08/19/2025 12:23 PM EDT) pH, Arterial 7.38 7.35 - 7.45 LAB HEMATOLOGY METHOD 08/19/2025 12:40 PM EDT [facility] pCO2, Arterial 42 32 - 45 mmHg LAB HEMATOLOGY METHOD 08/19/2025 12:40 PM EDT [facility] pO2, Arterial 107 83 - 108 mmHg LAB HEMATOLOGY METHOD 08/19/2025 12:40 PM EDT [facility] SO2, Measured, Arterial 99(H) 94 - 98 % LAB HEMATOLOGY METHOD 08/19/2025 12:40 PM EDT [facility] Base Excess, Arterial -0.8 -2.0 - 3.0 mmol/L LAB HEMATOLOGY METHOD 08/19/2025 12:40 PM EDT [facility] Bicarbonate, Calculated, Arterial 24 22 - 26 mmol/L LAB HEMATOLOGY METHOD 08/19/2025 12:40 PM EDT [facility] Hematocrit, Whole Blood 38.9(L) 40.0 - 51.0 % LAB HEMATOLOGY METHOD 08/19/2025 12:40 PM EDT [facility] Sodium, Whole Blood 138 136 - 145 mmol/L LAB HEMATOLOGY METHOD 08/19/2025 12:40 PM EDT [facility] Potassium, Whole Blood 3.7 3.6 - 4.9 mmol/L LAB HEMATOLOGY METHOD 08/19/2025 12:40 PM EDT [facility] Chloride, Whole Blood 105 97 - 107 mmol/L LAB HEMATOLOGY METHOD 08/19/2025 12:40 PM EDT [facility] Glucose, Whole Blood 146(H) 74 - 99 mg/dL LAB HEMATOLOGY METHOD 08/19/2025 12:40 PM EDT [facility] Ionized Calcium, Whole Blood 4.5(L) 4.6 - 5.1 mg/dL LAB HEMATOLOGY METHOD 08/19/2025 12:40 PM EDT [facility] Lactate, Arterial, Whole Blood 1.0 0.5 - 1.6 mmol/L LAB HEMATOLOGY METHOD 08/19/2025 12:40 PM EDT [facility] Blood Arterial blood specimen / Unknown 08/19/2025 12:23 PM EDT 08/19/2025 12:33 PM EDT 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 There is no change in the final diagnosis. Floor of mouth squamous cell carcinoma 08/28/2025 11:21 AM EDT [facility] Addendum electronically signed by Ellen [...] FOR CARCINOMA (0/20) 08/28/2025 11:21 AM EDT [facility] at 1949 EDT Comment:This is [...] in part L. 08/28/2025 11:21 AM EDT [facility] Comment:This is an appended report. [...] pN Category: pN1 08/28/2025 11:21 AM EDT [facility] Clinical Information No Dx Found. 08/28/2025 11:21 AM EDT [facility] Comment:This is an appended report. [...] TUMOR IDENTIFIED. NO 08/28/2025 11:21 AM EDT [facility] Comment:Corrected result: Pr eviously reported [...] a robin-white, papillary, irregularly-shap ed 2.4 cm (anterior-analytical data miner ior) by 1.9 (superior-inferi or) lesion that appears to abut the posterior and inferior margins. Gross photographs both pre ink and inked are provided. Ink code: Blue-anterior Red-superior Green-inferior Black-posterior [place]-medial Uninked (with lesion)-lateral Specimen is serially sectioned [...] is received fresh, placed in formalin labeled [facility] level 1B and consists of a 4.9 [...] Specimen received fresh, placed in formalin labeled [facility], short-short lateral, long-short anterior, long-long medial and consists of left brandyn mandibulectomy measuring 10.0 cm (anterior-analytical data miner ior) x 4.6 cm (left-right) x 3.5 cm (superior-inferi or) with an attached ramus measuring 6.2 cm (superior-inferi or) x 0.6 cm (left-right) x 1.3 cm (anterior-analytical data miner ior). The specimen is oriented by a short-short stitch on the lateral soft tissue, a long-short stitch on the anterior soft tissue and a long-long stitch on the medial soft tissue. The attached medial soft tissue measures 3.4 (left-right) by 8.4 (anterior-analytical data miner ior) by 2.0 (superior-inferi or), and is [...] and the gingiva there is a 3.4 (anterior-analytical data miner ior by 1.8 (superior-inferi or by 0.8 [...] no other interosseous lesions are grossly noted Buttonhole Maker sections are submitted as follows: L1: Anterior mucosal and soft tissue margin L2: Lateral mucosal and soft tissue margin L3: Medial mucosal and soft tissue margin L4: Posterior mucosal and soft tissue margin L5: Inferior soft tissue margin L6: Mass 2 L7-L9: Mass 1, deepest bone invasion in L9 L10: Mandibular interosseous lesion L11: Softened bone adjacent to lesion L12: Buttonhole Maker sample of lesion Cold Time: 0 Marvel [...] Marvel Herrera MD 08/28/2025 11:21 AM EDT [facility] Comment:This is an appended report. These results have been appended to a previously preliminary verified report. Note: A resident was involved in the service. I attest I examined the relevant preparations for the specimens and confirmed the diagnosis or interpretation. 08/28/2025 11:21 AM EDT [facility] Comment:This is an appended report. [...] EDT 08/19/2025 2:41 PM EDT us Alvaro Sandy Adrian DMD, MD LAB PATHOLOGY ORDERABLE S Edited Result - Final [facility] [address] [place] [address] * Surgical Pathology Exam (08/19/2025 9:17 AM EDT) Case Report Surgical Pathology Case: [id number] Authorizing Provider: Marvin Santana MD Collected: 08/19/2025 0917 Ordering Location: [facility] OPERATING ROOM Received: 08/19/2025 1336 Pathologist: Timothy Chacon MD Intraop: Nabila Hendrickson [...] fresh for permanent 08/28/2025 11:21 AM EDT [facility] Addendum This addendum is to document the provided clinical history. There is no change in the final diagnosis. Floor of mouth squamous cell carcinoma 08/28/2025 11:21 AM EDT [facility] Addendum electronically signed by Ellen [...] FOR CARCINOMA (0/20) 08/28/2025 11:21 AM EDT [facility] at 1949 EDT Comment:This is [...] in part L. 08/28/2025 11:21 AM EDT [facility] Comment:This is an appended report. [...] pN Category: pN1 08/28/2025 11:21 AM EDT [facility] Clinical Information No Dx Found. 08/28/2025 11:21 AM EDT [facility] Comment:This is an appended report. [...] TUMOR IDENTIFIED. NO 08/28/2025 11:21 AM EDT [facility] Comment:Corrected result: Pr eviously reported [...] a robin-white, papillary, irregularly-shap ed 2.4 cm (anterior-analytical data miner ior) by 1.9 (superior-inferi or) lesion that appears to abut the posterior and inferior margins. Gross photographs both pre ink and inked are provided. Ink code: Blue-anterior Red-superior Green-inferior Black-posterior [place]-medial Uninked (with lesion)-lateral Specimen is serially sectioned [...] is received fresh, placed in formalin labeled [facility] level 1A and consists of [...] is received fresh, placed in formalin labeled [facility] level 1B and consists of a 4.9 [...] of left brandyn mandibulectomy measuring 10.0 cm (anterior-analytical data miner ior) x 4.6 cm (left-right) x 3.5 cm (superior-inferi or) with an attached ramus measuring 6.2 cm (superior-inferi or) x 0.6 cm (left-right) x 1.3 cm (anterior-analytical data miner ior). The specimen is oriented by a short-short stitch on the lateral soft tissue, a long-short stitch on the anterior soft tissue and a long-long stitch on the medial soft tissue. The attached medial soft tissue measures 3.4 (left-right) by 8.4 (anterior-analytical data miner ior) by 2.0 (superior-inferi or), and is [...] and the gingiva there is a 3.4 (anterior-analytical data miner ior by 1.8 (superior-inferi or by 0.8 [...] no other interosseous lesions are grossly noted Buttonhole Maker sections are submitted as follows: L1: Anterior mucosal and soft tissue margin L2: Lateral mucosal and soft tissue margin L3: Medial mucosal and soft tissue margin L4: Posterior mucosal and soft tissue margin L5: Inferior soft tissue margin L6: Mass 2 L7-L9: Mass 1, deepest bone invasion in L9 L10: Mandibular interosseous lesion L11: Softened bone adjacent to lesion L12: Buttonhole Maker sample of lesion Cold Time: 0 Marvel Herrera MD M. LEFT LEVEL NECK 2, FRESH FOR PERMANENT Specimen is received fresh, placed in formalin labeled [facility] level neck 2 and consists [...] is received fresh, placed in formalin labeled [facility] level neck 3 a nd consists of [...] Marvel Herrera MD 08/28/2025 11:21 AM T [facility] Comment:This is an appended report. These results have been appended to a previously preliminary verified report. Note: A resident was involved in the service. I attest I examined the relevant preparations for the specimens and confirmed the diagnosis or interpretation. 08/28/2025 11:21 AM EDT [facility] Comment:This is an appended report. [...] LAB PATHOLOGY ORDERABLES Edited Result - Final [facility] [address] [place] [address] * (ABNORMAL) Blood gas, arterial (08/19/2025 9:07 AM EDT) pH, Arterial 7.38 7.35 - 7.45 LAB HEMATOLOGY METHOD 08/19/2025 9:16 AM EDT [facility] pCO2, Arterial 44 32 - 45 mmHg LAB HEMATOLOGY METHOD 08/19/2025 9:16 AM EDT [facility] pO2, Arterial 195(H) 83 - 108 mmHg LAB HEMATOLOGY METHOD 08/19/2025 9:16 AM EDT [facility] SO2, Measured, Arterial 100(H) 94 - 98 % LAB HEMATOLOGY METHOD 08/19/2025 9:16 AM EDT [facility] Base Excess, Arterial 0.7 -2.0 - 3.0 mmol/L LAB HEMATOLOGY METHOD 08/19/2025 9:16 AM EDT [facility] Bicarbonate, Calculated, Arterial 26 22 - 26 mmol/L LAB HEMATOLOGY METHOD 08/19/2025 9:16 AM EDT [facility] Hematocrit, Whole Blood 36.2(L) 40.0 - 51.0 % LAB HEMATOLOGY METHOD 08/19/2025 9:16 AM EDT [facility] Sodium, Whole Blood 141 136 - 145 mmol/L LAB HEMATOLOGY METHOD 08/19/2025 9:16 AM EDT [facility] Potassium, Whole Blood 3.7 3.6 - 4.9 mmol/L LAB HEMATOLOGY METHOD 08/19/2025 9:16 AM EDT [facility] Chloride, Whole Blood 107 97 - 107 mmol/L LAB HEMATOLOGY METHOD 08/19/2025 9:16 AM EDT [facility] Glucose, Whole Blood 99 74 - 99 mg/dL LAB HEMATOLOGY METHOD 08/19/2025 9:16 AM EDT [facility] Ionized Calcium, Whole Blood 4.7 4.6 - 5.1 mg/dL LAB HEMATOLOGY METHOD 08/19/2025 9:16 AM EDT [facility] Lactate, Arterial, Whole Blood 1.1 0.5 - 1.6 mmol/L LAB HEMATOLOGY METHOD 08/19/2025 9:16 AM EDT [facility] Blood Arterial blood specimen / Unknown Arterial Puncture / Unknown 08/19/2025 9:07 AM EDT 08/19/2025 9:14 AM EDT us Kenneth Benavides CRNA LAB BLOOD ORDERABLES Final Result [facility] [address] [place] [address] * Type and Screen (08/19/2025 7:05 AM [...] Co de Phone Number BLOOD BANK [address] documented in this encounter Visit Diagnoses [...] Routine, constipation bupivacaine-EPINEPHrine PF (Marcaine w/EPI) 0.25% -1:944148 injection As needed, Starting on Tue08/28/25 at [...] Transfer Provider - Reason: Patient in procedure)1923 ([facility] [place] - Provider: Automatic Transfer Provider) 0919 (Given - Provider: Kris Douglas RN) 0820 (Given - Provider: Kris Douglas RN) gabapentin (Neurontin) capsule 300 mg 300 mg, Nasogastric, 3 times daily, First dose (after last modification) on Jackie 08/22/25 at 0900, Until Discontinued, Routine, Recovery(Phase II-Outpatient)/On Unit(Inpatient) 0859 (Given - Provider: Marily Owens RN)1550 (JAN [...] 0858 (Given - Provider: Marily Owens, RENATO)1550 ([facility] Hold - Provider: Automatic Transfer Provider - Reason: Patient in procedure)192 ([facility] Unhold - Provider: Automatic Transfer [...] (Given - Provider: James Juan RN)1550 ([facility] Hold - Provider: Automatic Transfer Provider - Reason: Patient in procedure)192 ([facility] Unhold - Provider: Automatic Transfer Provider) 0505 (Given - Provider: Carly Perez) 0515 (Given - Provider: Carly Perez) lidocaine-EPINEPHrine (Xylocaine W/EPI) 1 %-1:605699 injection 10 mL (COMPLETED) 10 mL, Infiltration, Once, 1 dose, On Jackie 08/29/25 at 0645, Routine 1126 (Given - Provider: Kris Douglas RN) melatonin tablet 6 mg 6 mg, Nasogastric, Nightly, First dose on 08/24/25 at 2100, Until Discontinued, Routine 1550 ([facility] Hold - Provider: Automatic Transfer Provider - Reason: Patient in procedure)192 ([facility] Unhold - Provider: Automatic Transfer Provider)2047 (Given - Provider: Carly Perez) 1999 (Given - Provider: Carly Perez) metoprolol tartrate (Lopressor) split tablet 12.5 mg 12.5 mg, Nasogastric, 2 times daily, First dose on Tue08/20/25 at 1415, Until Discontinued, Routine 0859 (Given - Provider: Marily Owens RN)1550 ([facility] Hold - Provider: Automatic Transfer Provider - Reason: Patient in procedure)1922 ([facility] Unhold - Provider: Automatic Transfer [...] Provider - Reason: Patient in procedure)1922 ([facility] Unhold - Provider: Automatic Transfer [...] (Given - Provider: Marily Owens RN)1550 ([facility] Hold - Provider: Automatic Transfer Provider - Reason: Patient in procedure)1922 ([facility] Unhold - Provider: Automatic Transfer [...] 0850 (Given - Provider: Devante Black)1550 ([facility] Hold - Provider: Automatic Transfer Provider - Reason: Patient in procedure)1922 ([facility] Unhold - Provider: Automatic Transfer [...] ([facility] - Provider: Automatic Transfer Provider) bupivacaine-EPINEPHrine PF (Marcaine w/EPI) 0.25% -1:266923 injection (CANCELED) As needed, Starting on Tue08/28/25 [...] Until Tue08/30/25 at 1753, Routine, constipation 1550 ([facility] Hold - Provider: Automatic Transfer Provider - Reason: Patient in procedure)1922 ([facility] - Provider: Automatic Transfer Provider) ondansetron (Zofran) 4 MG/5ML solution 4 mg(Linked Group 2) 4 mg, Nasogastric, Every 6 hours PRN, Starting on 08/25/25 at 0637, Until Tue08/30/25 at 1753, Routine, Recovery(Phase II-Outpatient)/On Unit(Inpatient), nausea, vomiting 1550 ([facility] Hold - Provider: Automatic Transfer Provider - Reason: Patient in procedure)192 ([facility] Unhold - Provider: Automatic Transfer Provider) ondansetron (Zofran) injection 4 mg(Linked Group 2) 4 mg, Intravenous, Every 6 hours PRN, Starting on 08/25/25 at 0637, Until Tue08/30/25 at 1753, Routine, Recovery(Phase II-Outpatient)/On Unit(Inpatient), vomiting, nausea 1550 ([facility] Hold - Provider: Automatic Transfer Provider - Reason: Patient in procedure)192 ([facility] Unhold - Provider: Automatic Transfer Provider) oxyCODONE (Roxicodone) immediate release tablet 10 mg(Linked Group 3) 10 mg, Nasogastric, Every 4 hours PRN, Starting on 08/25/25 at 0638, Until Tue08/30/25 at 1753, Routine, severe pain 0452 (Given - Provider: James Juan RN)1550 ([facility] Hold - Provider: Automatic Transfer Provider - Reason: Patient in procedure)192 ([facility] Unhold - Provider: Automatic Transfer [...] NIPS 0452 (See Alternative - Provider: James Jaun RN)1550 ([facility] Hold - Provider: Automatic Transfer [...] on Tue08/28/25 at 1741, Until Tue08/28/25 at 192, Routine, Recovery (Phase I only), DVPRS >/= [...] > or =4: FLACC, PAINAD, NPASS, NRS, Dais-Anaya Faces; > or =5: DVPRS, NIPS Or [...] documented as of this encounter Care Teams Offshoring Manager Relationship Specialty Start Date End Date Christina Arteaga APRN [address] [place] [id number] PCP - General 06/20/25 Maxwell White, CLEM [facility] [address] [place] [id number] Referring Physician 06/24/25 documented as of this encounter
--- OUTSIDE RECORDS SUMMARY | 2025-08-28 15:34 | XMS_ITS | Encounter Summary ---
Author Organization [facility] Address [address] [place] [address] Care Team Providers Care Ladle Mechanic Name Role Phone Christina Arteaga APRN Primary Care Provider [phone] Maxwell White DMD Unavailable [phone] Reason for Visit * Auth/Cert (Routine) Specialty [...] DISSECTION, NECK, RADICAL GLOSSECTOMY Marvin Santana MD [address] [address] Phone: tel: fax: [facility] RO[facility] [address] [place] [address] Phone: tel: Referral ID Status Reason Start Date Expiration Date Visits Re quested Visits Authorized [id number] 1 1 Encounter Details Date Type Department Care Team (Late st Contact Info) Description 08/28/2025 4:34 PM EDT Anesthesia Event [facility] [address] [place] [address] Twin Hernandez MD [address] [place] [address] Harika Naranjo, UNDERGRADUATE INTERN [address] [place] [address] Anesthesia Record Procedure Summary Procedure [...] Betsy Mayberry RN 08/30/25 1549 by Kris Douglas RN Peripheral IV Placement Date: 05/08; Placement [...] any time in the past 12 m [facility], were you homeless or living in a halfway (including now)? No 08/21/2025 [facility] Utilities Answer Date Recorded In the past [...] lower extremity flap donor site (Right) - [place] inpatient. Waitlist 08/28. Time: 30 minutes Location: [facility] [place] [facility] Surgeons: Marvin Santana MD HPI Carlito [...] is no recent study available for direct ossx-ls-wcyk comparison. CXR: Physical Exam Airway Mallampati: unable [...] Does not have CHF, murmur, pacemaker, past [place] or syncope. hypertension: Cardio additional comments: . [...] STENT 04/26/2023 COLONOSCOPY 2023 CORONARY STENT PLACEMENT [id number] ORTHOPEDIC SURGERY repair to clavical OTHER SURGICAL [...] [facility] [address] [place] [address] Marvin Santana MD [address] [address] documented as of this encounter Visit Diagnoses [...] documented as of this encounter Care Teams Ladle Mechanic Relationship Specialty Start Date End Date Christina Arteaga APRN [address] [place] [address] PCP - General 06/20/25 Maxwell White DMD [facility] [address] [place] [address] Referring Physician 06/24/25 documented as of this encounter
--- OUTSIDE RECORDS SUMMARY | 2025-09-03 08:15 | XMS_ITS | Encounter Summary ---
Author Organization [facility] Address [address] [place] [address] Care Team Providers Care Tool Polishing Machine Operator Name Role Phone Christina Arteaga TERE Primary Care Provider [phone] Maxwell White DMD Unavailable [phone] Reason for Visit * Consultation (Urgent) - Closed Specialty Diagnoses / Procedures Referred By Fausto honeycutt Referred To Contact Plastic Surgery Diagnoses Wound of right lower extremity, initial encounter Alvaro Adrian DMD, [address] [place] [address] Phone: tel: fax: Referral ID Status Reason Start Date Expiration Date V isits Requested Visits Authorized [id number] Closed Specialty Services Required 08/30/2025 03/01/2027 1 1 Encounter Details Date Type Department Care Team (Late st Contact Info) Description 09/03/2025 9:15 AM EDT Office Visit [facility] Plastic & Reconstructive Surgery [address] [place] [address] Marvin Santana MD [address] [place] [address] Floor of mouth squamous cell carcinoma (Primary [...] any time in the past 12 m [facility], were you homeless or living in a nursing home (including now)? No 08/21/2025 [facility] Utilities Answer Date Recorded In the past 12 months has th e [employer], gas, oil, or water [employer] threatened to shut off services in your home? No 08/21/2025 Sex and Gender Information Value Date Recorded Sex Assigned at Not on file Legal Sex Male 8:28 PM EDT Gender Identity Male 06/18/2025 11:51 AM EDT Sexual Orientation Not on file documented as of this encounter Last Filed Vital Signs Vital Sign Reading Time Taken Comments Blood Pressure 99/64 09/03/2025 9:02 AM EDT Pulse 85 09/03/2025 9:02 AM EDT Temperature - - Respiratory Rate - - Oxygen Saturation 97% 09/03/2025 9:02 AM EDT Inhaled Oxygen Concentration - - Weight 85.9 kg (189 lb 6 oz) 09/03/2025 9:02 AM EDT Height 180.3 cm (5' 11 ) 09/03/2025 9:02 AM EDT Body Mass Index 26.41 09/03/2025 9:02 AM EDT documented in this encounter Miscellaneous Notes * Progress Notes - Roma Rolon MD - 09/03/2025 9:15 AM EDT Images from the original note were not included. PLASTIC SURGERY CLINIC PROGRESS NOTE Chief Complaint: Intra-oral reconstruction History of Presenting Illness: Carlito Perez is a 54 y.o. 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 The patient is now s/p right osteocutaneous free fibula reconstruction for left oromandibular defect (08/19/25) followed by STSG (08/28/25). The patient presents today for wound VAC removal. He is scheduled to follow up with Dr. Costa this Tuesday. He has noted some drainage from the left lower chin. He is otherwise tolerating tube feeds. Review of Systems: Review of Systems Constitutional: Negative. HENT: Positive for facial swelling. Eyes: Negative. Respiratory: Negative. Cardiovascular: Negative. Gastrointestinal: Negative. Endocrine: Negative. Genitourinary: Negative. Musculoskeletal: Negative. Skin: Positive for wound. Allergic/Immunologic: Negative. Neurological: Negative. Hematological: Negative. Psychiatric/Behavioral: Negative. Past Medical History: Past Medical History[1] Objective: Vitals: 09/03/25 0902 BP: 99/64 Pulse: 85 SpO2: 97% Physical Examination: Physical Exam HENT: Head: Comments: Inferior chin with 2 cm superficial open wound, no drainage appreciated Mouth/Throat: Mouth: Mucous membranes are moist. Comments: Flap pink, well-perfused; incision line remains C/D/I Neck: Comments: Incision C/D/I, sutures in place, neck soft; palpable pedicle Cardiovascular: Pulses: Normal pulses. Pulmonary: Effort: Pulmonary effort is normal. Abdominal: Palpations: Abdomen is soft. Musculoskeletal: Comments: Right thigh donor site - Xeroform in place Right lateral leg- STSG in place, >95% take, no drainage Skin: General: Skin is warm. Capillary Refill: Capillary refill takes less than 2 seconds. Neurological: Mental Status: He is alert and oriented to person, place, and time. Psychiatric: Mood and Affect: Mood normal. Imaging: Assessment/Plan: Carlito Perez is a 54 y.o. male with a PmHx of floor of mouth SCC now s/p resection (Nguyễn) and subsequent free osteocutaneous fibula reconstruction (Max-08/19/25) followed by STSG (08/28/25). - Wound VAC removed today-wound overall appears healthy we will have him transitioned to daily bacitracin and Adaptic overlying the skin graft for 1 week at which time he can then transition to dailyVaseline - Sutures removed from neck incision - Recommend dry gauze over right thigh donor site and overlying Dorian wrap - Continue tube feeds at this time F/u 09/17 Thom Rolon MD Plastic and Reconstructive Surgery [1] Past Medical History: Diagnosis Date Adverse effect of anesthesia allergy to shellfish, penicillan CAD (coronary artery disease) Cancer ([facility]) [id number] Coronary artery calcification Dental disease chipped teeth, jony block for vocal chord damage Fractures clavical surgery GERD (gastroesophageal reflux disease) 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 HLD (hyperlipidemia) HTN (hypertension) Hypothyroidism Reflux gastritis Substance abuse 1988 Cosigned by Marvin Santana MD at 09/04/2025 9:49 AM EDT Associated attestation - Marvin Santana MD - 09/04/2025 9:49 AM EDT I saw and evaluated the patient with the resident/fellow. I discussed the case with the resident/fellow and agree with the findings and plan as documented. Intraoral exam reveals intact skin paddle without dehiscence. Neck soft, sutures removed. Left chinwith superficial wound, scabbing noted. Will continue to monitor. Discussed that should this not heal, he may require washout and closure prior to radiation initiation. Keep DHT for now though will likely discontinue at next visit pending progress. STSG to right leg donor site appears to exhibit 100% take. Wound vac discontinued. Will see Dr. Adrian and FS this Tuesday documented in this encounter Plan of Treatment Upcoming Encounters Date Type Department Care Team (Late st Contact Info) Description 11/26/2025 10:45 AM EST Office Visit [facility] Plastic & Reconstructive Surgery [address] [place] [address] Marvin Santana MD [address] [address] documented as of this encounter Visit Diagnoses Diagnosis 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 Malignant neoplasm of floor of mouth, part unspecified documented in this encounter Additional Health Concerns Assessment Noted Time A fall risk assessment has been complete d for the patient 09/03/2025 9:03 AM EDT A Body Mass Index follow-up plan has been documented for the patient 09/04/2025 9:49 AM EDT documented as of this encounter Care Teams Tool Polishing Machine Operator Relationship Specialty Start Date End Date Christina Arteaga APRN [address] [place] [address] PCP - General 06/20/25 Maxwell White DMD [address] [place] [address] Referring Physician 06/24/25 documented as of this encounter
--- OUTSIDE RECORDS SUMMARY | 2025-09-06 12:00 | XMS_ITS | Encounter Summary ---
Author Organization [facility] Address [address] [place] [address] Care Team Providers Care Labor Contractor Name Role Phone Christina Arteaga TERE Primary Care Provider [phone] Maxwell White DMD Unavailable [phone] Reason for Visit * Reason Comments Follow-up Encounter Details Date Type Department Care Team ([facility] Contact Info) Description 09/06/2025 1:00 PM EDT Office Visit [facility] [address] [place] [phone] Alvaro Adrian DMD, MD [address] [facility] [address] [place] [address] Squamous cell carcinoma of mandible [...] any time in the past 12 m [facility], were you homeless or living in a nursing home (including now)? No 08/21/2025 [facility] [...] dissection, extraction of #2,3,5,6,7,8,9,10,11,12,13,15,28,29,[address] [facility] by Dr Santana [...] and recommended to continue feeding through the [facility]. They report that theyhave not changed leg dressing for 3 days. [...] adjuvant radiation and chemotherapy due to his [id number] disease with adverse features (WPOI 5, lymphovascular [...] Description 11/26/2025 10:45 AM EST Office Visit [facility] Plastic & Reconstructive Surgery [address] [place] [phone] Marvin Santana MD [address] [address] documented as of this encounter Visit Diagnoses Diagnosis Squamous cell carcinoma of mandible- Primary documented in this encounter Additional Health Concerns Assessment Noted Time A fall risk assessment has been complete d for the patient 09/06/2025 12:49 PM EDT A Body Mass Index follow-up plan has been documented for the patient 09/04/2025 9:49 AM EDT documented as of this encounter Care Teams Labor Contractor Relationship Specialty Start Date End Date Christina Arteaga APRN [address] [place] [address] PCP - General 06/20/25 Maxwell White DMD [facility] [address] [place] [address] Referring Physician 06/24/25 documented as of this encounter
--- OUTSIDE RECORDS SUMMARY | 2025-09-17 09:15 | XMS_ITS | Encounter Summary ---
Author Organization Healthcare Address [address] [place] [address] Care Team Providers Care Hrbp Name Role Phone Chandler Christina CARRANZA Primary Care Provider [phone] Maxwell White DMD Unavailable [phone] Encounter Details Date Type Department Care Team (Late st Contact Info) Description 09/17/2025 9:15 AM EST Office Visit [facility] Plastic & Reconstructive Surgery [address] [place] [phone] Marvin Santana MD [address] [phone] Floor of mouth squamous cell carcinoma (Primary [...] any time in the past 12 m [facility], were you homeless or living in a retirement (including now)? No 08/21/2025 [facility] Utilities Answer Date Recorded In the past 12 months has th e [employer], gas, oil, or water company threatened to [...] Description 11/26/2025 10:45 AM EST Office Visit [facility] Plastic & Reconstructive Surgery [address] [place] [phone] Marvin Santana MD 2[address] [facility] [address] [place] [phone] documented as of this encounter Visit Diagnoses [...] documented as of this encounter Care Teams Hrbp Relationship Specialty Start Date End Date Christina Arteaga APRN [address] [place] [address] PCP - General 06/20/25 Maxwell White DMD [facility] [address] [place] [address] Referring Physician 06/24/25 documented as of this encounter
--- OUTSIDE RECORDS SUMMARY | 2025-09-17 13:00 | XMS_ITS | Encounter Summary ---
Author Organization Healthcare Address [address] [place] [address] Care Team Providers Care Gas Plant Technician Name Role Phone ChandlerChristina silva TERE Primary Care Provider [phone] Maxwell White DMD Unavailable [phone] Encounter Details Date Type Department Care Team (Late st Contact Info) Description 09/17/2025 1:00 PM EST Office Visit [facility] cover mat machine operator Faculty Clinic [address] [facility] [address] [place] [address] Alvaro Adrian DMD, MD [address] [place] [address] Squamous cell carcinoma of mandible [...] any time in the past 12 m [facility], were you homeless or living in a detention (including now)? No 08/21/2025 [facility] Utilities Answer Date Recorded In the past 12 months has th e [employer], gas, oil, or water company threatened [...] insight to condition, reliable historian ASSESSMENT/PLAN Carlito Peerz is a 54 y.o. male who is [...] appt w/Dr. Santana and Dr. Adrian at [facility] to reduce travel burden. Sofy/Nguyễn [...] [facility] [address] [place] [address] Marvin Santana MD [address] [phone] documented as of this encounter Visit Diagnoses Diagnosis Squamous cell carcinoma of mandible- Primary documented in this encounter Additional Health Concerns Assessment Noted Time A fall risk assessment has been complete d for the patient 09/17/2025 8:59 AM EST A Body Mass Index follow-up plan has been documented for the patient 09/24/2025 1:07 PM EST documented as of this encounter Care Teams Gas Plant Technician Relationship Specialty Start Date End Date Christina Arteaga APRN [address] [place] [address] PCP - General 06/20/25 Maxwell White DMD [facility] [address] [place] [address] Referring Physician 06/24/25 documented as of this encounter
--- OUTSIDE RECORDS SUMMARY | 2025-10-08 09:15 | XMS_ITS | Encounter Summary ---
Author Organization Healthcare Address [address] [place] [address] Care Team Providers Care Social Science Analyst Name Role Phone Christina Arteaga APRN Primary Care Provider [phone] Maxwell White DMD Unavailable [phone] Encounter Details Date Type Department Care Team (Late st Contact Info) Description 10/08/2025 9:15 AM EST Office Visit [facility] Plastic & Reconstructive Surgery [address] [place] [phone] Marvin Santana MD [address] [phone] Postoperative examination (Primary Dx) Social History Tobacco [...] any time in the past 12 m [facility], were you homeless or living in a residential (including now)? No 08/21/2025 [facility] Utilities Answer Date Recorded In the past 12 months has th e [employer], gas, oil, or water [employer] threatened to shut off services in your [...] Notes * Progress Notes - Corrine Barriga, PASTE MAKER - 10/08/2025 9:15 AM EST Subjective Patient [...] 10:45 AM EST Office Visit [facility] Plastic & Reconstructive Surgery [address] [place] [phone] Marvin Santana MD [address] [phone] documented as of this encounter Visit Diagnoses Diagnosis Postoperative examination- Primary Follow-up examination, following unspecified surgery documented in this encounter Additional Health Concerns Assessment Noted Time A fall risk assessment has been complete d for the patient 10/08/2025 8:59 AM EST A Body Mass Index follow-up plan has been documented for the patient 10/08/2025 9:36 AM EST documented as of this encounter Care Teams Social Science Analyst Relationship Specialty Start Date End Date Christina Arteaga APRN [address] [place] [address] PCP - General 06/20/25 Maxwell White DMD [facility] [address] [place] [address] Referring Physician 06/24/25 documented as of this encounter
--- OUTSIDE RECORDS SUMMARY | 2025-10-08 10:30 | XMS_ITS | Encounter Summary ---
Author Organization Healthcare Address [address] [place] [address] Care Team Providers Care Lard Tub Washer Name Role Phone ChandlerChristina silva TERE Primary Care Provider [phone] Maxwell White DMD Unavailable [phone] Encounter Details Date Type Department Care Team (Late st Contact Info) Description 10/08/2025 10:30 AM EST Office Visit [facility] clinical physician assistant Faculty Clinic [address] [facility] [address] [place] [address] Alvaro Adrian DMD, MD [address] [place] [address] Social History Tobacco Use Types Packs/Day Years [...] any time in the past 12 m [facility], were you homeless or living in a assisted (including now)? No 08/21/2025 [facility] Utilities Answer Date Recorded In the past 12 months has th e [employer], gas, oil, or water [employer] threatened to shut off services in your [...] 10:42 AM EST documented in this encounter Plan of Treatment Upcoming Encounters Date Type Department Care Team (Late st Contact Info) Description 11/26/2025 10:45 AM EST Office Visit [facility] Plastic & Reconstructive Surgery [address] [place] [phone] Marvin Santana MD [address] [address] documented as of this encounter Visit Diagnoses Not on filedocumented in this encounter Additional Health Concerns Assessment Noted Time A fall risk assessment has been complete d for the patient 10/08/2025 8:59 AM EST A Body Mass Index follow-up plan has been documented for the patient 10/08/2025 9:36 AM EST documented as of this encounter Care Teams Lard Tub Washer Relationship Specialty Start Date End Date Christina Arteaga APRN [address] [place] [address] PCP - General 06/20/25 Maxwell White DMD [facility] [address] [place] [address] Referring Physician 06/24/25 documented as of this encounter
--- OUTSIDE RECORDS SUMMARY | 2025-10-14 05:27 | XMS_ITS | Continuity of Care Document ---
Author Organization [facility] Phone Care Team Providers Care Tissue Inserter Name Role Phone CYNDEE TAYLOR Primary Attending JOHN DENTON Unavailable CYNDEE TAYLOR Admitting NO, DEFINED P Primary Care Unavailable MEDICATIONS HOME MEDICATIONS Status RXNORM NDC Medication Dose Route Frequency Dates Comments Reported By Updated By Drug Treatment Unknown DISCHARGE MEDICATIONS Status RXNORM NDC Medication Dose Route Frequency Dates Dis pense Data Comments Physician Updated By No Discharge Medication Info rmation Available INPATIENT MEDICATIONS Status RXNORM NDC Medication Dose Route Frequency Rat e Quantity Dates Indication Dispense Data Comments Physician Updated By No Inpatient Medication Info rmation Available SOCIAL HISTORY SOCIAL HISTORY - Smoking Status SNOMED-CT Social History Element Description Effective Dates Offered Cessation Comment Updated By [id number] Smoking Status Unknown If Ever Smoked SOCIAL HISTORY - Gender Sex: Male SOCIAL HISTORY - Status : status i nformation is not available Intention in Next Year: intention information is not available SOCIAL HISTORY - Assessments Code System Description Status Date Value of Assessment Updated By Comment Assessment Information is no t available SOCIAL HISTORY - Stockbridge Affiliation Stockbridge information is not av ailable SOCIAL HISTORY - Legal Sex Legal Sex information is not available SOCIAL HISTORY - Sexual Behavior Sexual Orientation Gender Identity SNOMED-CT Description SNO MED -CT Description Activity Level No of Partners Partner Type UpdatedBy Information is not available SOCIAL HISTORY - Occupation Occupation information is no t available HEALTH CONCERNS Problems Concern Status Health Concern problem infor mation not available. Smoking Status Status Years Used Consumed packs p er day Health Concern smoking histo ry information not available. Family History Concern Status Health Concern family histor y information not available. ENCOUNTERS ENCOUNTER INFORMATION Reason for Visit RADIATION Admission October 02, 2025 5:53:00 PM [place] [id number] [id number] Discharge October 14, 2025 4:59:00 AM [facility] DISCHARGED TO HOME OR SELF CARE ENCOUNTER DIAGNOSES Notes information is not roly ilable. Code System Diagnosis Onset Date Diagnosis information is not available. 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 [id number] on September 13, 2025 3:41:06 PM [place] CARE TEAM Care Tissue Inserter Role CYNDEE TAYLOR Primary Attending JOHN DENTON Referring CYNDEE BRANDON Admitting DEFINED NO Primary Care CARE TEAM CARE hand candy molder Role on Team Location Telecom Status Start Date End Elvin e Updated By NO DEFINED PRIMARY C PCP normal September 13, 2025 3:41:06 PM [place] October 14, 2025 4:59:00 AM [place] [id number] on September 13, 2025 3:41:06 PM [facility] BERTIN Lawler Referring normal September 13, 2025 3:41:06 PM [place] October 14, 2025 4:59:00 AM [place] [id number] on September 13, 2025 3:41:06 PM [facility] BRANDON WASSERMAN Attending normal September 13, 2025 3:41:06 PM [place] October 14, 2025 4:59:00 AM [place] [id number] on September 13, 2025 3:41:06 PM [facility] BRANDON WASSERMAN Admitting normal September 13, 2025 3:41:06 PM [place] October 14, 2025 4:59:00 AM [place] [id number] on September 13, 2025 3:41:06 PM [facility]
[2025-10-15] VITALS (7 sets, daily range): BP systolic 95–123; BP diastolic 47–70; PULSE 62–78; RESP 18–20; TEMP 36.7; O2SAT 97–98; BMI 26.7
--- OUTSIDE RECORDS SUMMARY | 2025-10-15 09:41 | XMS_ITS | Encounter Summary ---
Author Organization Healthcare Address [address] [place] [address] Care Team Providers Care Personal Attendant Name Role Phone Chandler Christina CARRANZA Primary Care Provider [phone] Maxwell White DMD Unavailable [phone] Reason for Visit * Reason Onset Date Comments Med Refill 09/23/2025 Encounter Details Date Type Department Care Team (Late st Contact Info) Description 09/23/2025 Refill [facility] [address] [place] [address] Isha Walters, RENATO None None Squamous cell carcinoma of mandible Social History [...] time in the past 12 m [facility], were you homeless or living in a penitentiary (including now)? No 08/21/2025 [facility] [...] Description 11/26/2025 10:45 AM EST Office Visit [facility] Plastic & Reconstructive Surgery [address] [place] [phone] Marvin Santana MD [address] [place] [address] documented as of this encounter Visit Diagnoses Diagnosis Squamous cell carcinoma of mandible documented in this encounter Additional Health Concerns Assessment Noted Time A fall risk assessment has been complete d for the patient 09/17/2025 8:59 AM EST A Body Mass Index follow-up plan has been documented for the patient 09/24/2025 1:07 PM EST documented as of this encounter Care Teams Personal Attendant Relationship Specialty Start Date End Date Christina Arteaga APRN [address] [place] [address] PCP - General 06/20/25 Maxwell White DMD [address] [place] [address] [address] [place] [address] Referring Physician 06/24/25 documented as of this encounter
--- OUTSIDE RECORDS SUMMARY | 2025-10-15 09:41 | XMS_ITS | Encounter Summary ---
Author Organization [facility] Address [address] [place] [address] Care Team Providers Care Boiler Tender Name Role Phone Chandler Christina TERE Primary Care Provider [phone] Christopher Maxwell Francy DMD Unavailable [phone] Encounter Details Date Type Department Care Team [...] any time in the past 12 m [facility], were you homeless or living in a intermediate (including now)? No 08/21/2025 [facility] Utilities Answer Date Recorded In the [...] - [place] [facility]astic [facility]ive [facility] [address] [place] [phone] Marvin Santana MD [address] [place] [phone] documented as of this encounter Visit Diagnoses Not on filedocumented in this encounter Additional Health Concerns Assessment Noted Time A fall risk assessment has been complete d for the patient 09/17/2025 8:59 AM EST A Body Mass Index follow-up plan has been documented for the patient 09/24/2025 1:07 PM EST documented as of this encounter Care Teams Boiler Tender Relationship Specialty Start Date End Date Christina Arteaga APRN [address] [place] [address] PCP - General 06/20/25 Maxwell White, CLEM [address] [place] [address] [address] [place] [address] Referring Physician 06/24/25 documented as of this encounter
--- OUTSIDE RECORDS SUMMARY | 2025-10-15 09:41 | XMS_ITS | Encounter Summary ---
Author Organization Healthcare Address [address] [place] [address] Care Team Providers Care Cattle Shipper Name Role Phone Christina Arteaga APRN Primary Care Provider [phone] Maxwell White DMD Unavailable [phone] Encounter Details Date Type Department Care Team (Late st Contact Info) Description 09/20/[address] [facility] Plastic & Reconstructive Surgery [address] [place] [address] Marvin Santana MD [address] [address] Social History Tobacco Use Types [...] any time in the past 12 m [facility], were you homeless or living in a fpc (including now)? No 08/21/2025 [facility] Utilities Answer Date Recorded In the [...] in another script * Telephone Encounter - [place] Varelajabier Moss - 09/20/2025 2:53 PM EST Sent an email * Telephone Encounter - McclendonIndiaLois A - 09/20/2025 1:15 PM EST Clinical Concern/Question Reason for Call: pt has a week left of tylenol at increased dosage and wants to know if they will need a refill on that? Pharmacy: [facility] please call Best contact number: [phone] Optimal time of day to reach caller: ANYTIME Additional comments/information from caller: Not Applicable Note: Please do not reply to this message. Follow-up communication and further actions as a result of this message need to be communicated with the patient directly, if the patient is not active onMyChart. If the patient is active on MyChart, they will receive notification of the communication/outcome via [employer]. documented in this encounter Plan of Treatment Upcoming Encounters Date Type Department Care Team ([facility] st Contact Info) Description 11/26/2025 10:45 AM EST Office Visit [facility] Plastic & Reconstructive Surgery [address] [place] [address] Marvin Santana MD [address] [address] documented as of this encounter Visit Diagnoses Not on filedocumented in this encounter Additional Health Concerns Assessment Noted Time A fall risk assessment has been complete d for the patient 09/17/2025 8:59 AM EST A Body Mass Index follow-up plan has been documented for the patient 09/24/2025 1:07 PM EST documented as of this encounter Care Teams Cattle Shipper Relationship Specialty Start Date End Date Christina Arteaga APRN [address] [place] [address] PCP - General 06/20/25 Maxwell White, DMD [facility] [address] [place] [address] Referring Physician 06/24/25 documented as of this encounter
--- OUTSIDE RECORDS SUMMARY | 2025-10-15 09:41 | XMS_ITS | Encounter Summary ---
Author Organization [facility] Address [address] [place] [address] Care Team Providers Care Site Monitor Name Role Phone Chandler Christina TERE Primary Care Provider [phone] Christopher Maxwell Francy DMD Unavailable [phone] Encounter Details Date Type Department Care Team [...] any time in the past 12 m [facility], were you homeless or living in a long term (including now)? No 08/21/2025 [facility] Utilities Answer Date Recorded In [...] 10:45 AM EST Office Visit [facility] Plastic & Reconstructive Surgery [address] [place] [phone] Marvin Santana MD [address] [place] [phone] documented as of this encounter Visit Diagnoses Not on filedocumented in this encounter Additional Health Concerns Assessment Noted Time A fall risk assessment has been complete d for the patient 09/06/2025 12:49 PM EDT A Body Mass Index follow-up plan has been documented for the patient 09/04/2025 9:49 AM EDT documented as of this encounter Care Teams Site Monitor Relationship Specialty Start Date End Date Christina Arteaga APRN [address] [place] [address] PCP - General 06/20/25 Maxwell White, CLEM [facility] [address] [place] [address] Referring Physician 06/24/25 documented as of this encounter
--- OUTSIDE RECORDS SUMMARY | 2025-10-15 09:41 | XMS_ITS | Encounter Summary ---
Author Organization Healthcare Address [address] [place] [address] Care Team Providers Care Audioprosthologist Name Role Phone Christina Arteaga APRN Primary Care Provider [phone] Maxwell White DMD Unavailable [phone] Encounter Details Date Type Department Care Team (Late st Contact Info) Description 09/20/2025 [facility] [address] [place] [phone] Corrine Barriga APRN [address] [facility] 2nd [place] [address] Social History Tobacco Use Types [...] any time in the past 12 m [facility], were you homeless or living in a fpc (including now)? No 08/21/2025 [facility] Utilities Answer Date Recorded In the past 12 months has th e [employer], gas, oil, or water company threatened to [...] Description 11/26/2025 10:45 AM EST Office Visit [facility] Plastic & Reconstructive Surgery [address] [place] [address] Marvin Santana MD [address] [phone] documented as of this encounter Visit Diagnoses Not on filedocumented in this encounter Additional Health Concerns Assessment Noted Time A fall risk assessment has been complete d for the patient 09/17/2025 8:59 AM EST A Body Mass Index follow-up plan has been documented for the patient 09/24/2025 1:07 PM EST documented as of this encounter Care Teams Audioprosthologist Relationship Specialty Start Date End Date Christina Arteaga APRN [address] [place] [address] PCP - General 06/20/25 Maxwell White DMD [facility] [address] [place] [address] Referring Physician 06/24/25 documented as of this encounter
--- OUTSIDE RECORDS SUMMARY | 2025-10-15 09:42 | XMS_ITS | Encounter Summary ---
Author Organization Healthcare Address [address] [place] [address] Care Team Providers Care Special Events Planner Name Role Phone Christina Arteaga APRN Primary Care Provider [phone] Maxwell White DMD Unavailable [phone] Reason for Visit * Reason Onset Date Comments [facility]CN Clinical Concern/Question 09/27/2025 Encounter Details Date Type Department Care Team (Late st Contact Info) Description 09/27/[address] [facility] Plastic & Reconstructive Surgery [address] [place] [address] Marvin Santana MD [address] [phone] HCN Clinical Concern/Question Social History Tobacco Use Types Packs/Day Years [...] any time in the past [address] [facility], were you homeless or living in a long term (including now)? No 08/21/2025 [facility] [...] encounter Miscellaneous Notes * Telephone Encounter - Marshall Chase LPN - 09/27/2025 5:48 PM EST Attempted to return call, no answer, left a message to call back. * Telephone Encounter - Franky Richard Delgado - 09/27/2025 2:18 PM EST Clinical Concern/Question Reason for Call: None He has an appt on 10/08/2025. He has not had any chemo therapy or radiation by then. That wont be until 10/09 (or the following week). She is wanting to know if still wants to see him on 10/08. On the chemotherapy paper it said he needs to consult his DrAntoinette about aspirin, ibuprofen and acetaminophen. Best contact number: [phone] Optimal time of day to reach caller: ANYTIME Additional comments/information from caller: None Note: Please do not reply to this message. Follow-up communication and further actions as a result of this message need to be communicated with the patient directly, if the patient is not active onMyChart. If the patient is active on MyChart, they will receive notification of the communication/outcome via [employer]. documented in this encounter Plan of Treatment Upcoming Encounters Date Type Department Care Team (Late st Contact Info) Description 11/26/2025 10:45 AM EST Office Visit [facility] Plastic & Reconstructive Surgery [address] [place] [address] Marvin Santana MD [address] [phone] documented as of this encounter Visit Diagnoses Not on filedocumented in this encounter Additional Health Concerns Assessment Noted Time A fall risk assessment has been complete d for the patient 09/17/2025 8:59 AM EST A Body Mass Index follow-up plan has been documented for the patient 09/24/2025 1:07 PM EST documented as of this encounter Care Teams Special Events Planner Relationship Specialty Start Date End Date Christina Arteaga APRN [address] [place] [address] PCP - General 06/20/25 Maxwell White, DMD [facility] [address] [place] [address] Referring Physician 06/24/25 documented as of this encounter
--- OUTSIDE RECORDS SUMMARY | 2025-10-15 09:42 | XMS_ITS | Encounter Summary ---
Author Organization [facility] Address [address] [place] [address] Care Team Providers Care Computer Systems Consultant Name Role Phone Chandler Christina TERE Primary Care Provider [phone] Christopher Maxwell Francy DMD Unavailable [phone] Encounter Details Date Type Department Care Team (Latest Contact Info) Description 10/02/2025 Travel Social History Tobacco Use Types Packs/Day [...] any time in the past 12 m [facility], were you homeless or living in a half-way (including now)? No 08/21/2025 [facility] Utilities Answer Date Recorded In the [...] Plastic & Reconstructive Surgery [address] [place] [phone] Marvin Santana MD [address] [place] [phone] documented as of this encounter Visit Diagnoses Not on filedocumented in this encounter Additional Health Concerns Assessment Noted Time A fall risk assessment has been complete d for the patient 09/17/2025 8:59 AM EST A Body Mass Index follow-up plan has been documented for the patient 09/24/2025 1:07 PM EST documented as of this encounter Care Teams Computer Systems Consultant Relationship Specialty Start Date End Date Christina Arteaga APRN [address] [place] [address] PCP - General 06/20/25 Maxwell White, CLEM [address] [place] [address] [address] [place] [address] Referring Physician 06/24/25 documented as of this encounter
--- OUTSIDE RECORDS SUMMARY | 2025-10-15 09:42 | XMS_ITS | Encounter Summary ---
Author Organization [facility] Address [address] [place] [address] Care Team Providers Care Writing Manager Name Role Phone Chandler Christina TERE Primary Care Provider [phone] Christopher Maxwell Francy DMD Unavailable [phone] Encounter Details Date Type Department Care Team (Latest Contact Info) Description 10/08/2025 Travel Social History Tobacco Use Types Packs/Day [...] any time in the past 12 m [facility], were you homeless or living in a detention (including now)? No 08/21/2025 [facility] Plastic & Reconstructive Surgery [address] [place] [address] Marvin Santana MD [address] [place] [phone] documented as of this encounter Visit Diagnoses Not on filedocumented in this encounter Additional Health Concerns Assessment Noted Time A fall risk assessment has been complete d for the patient 10/08/2025 8:59 AM EST A Body Mass Index follow-up plan has been documented for the patient 10/08/2025 9:36 AM EST documented as of this encounter Care Teams Writing Manager Relationship Specialty Start Date End Date Christina Arteaga APRN [address] [place] [address] PCP - General 06/20/25 Maxwell White, CLEM [address] [place] [address] [address] [place] [address] Referring Physician 06/24/25 documented as of this encounter
--- OUTSIDE RECORDS SUMMARY | 2025-10-15 09:42 | XMS_ITS | Encounter Summary ---
Author Organization Healthcare Address [address] [place] [address] Care Team Providers Care Contract Sheltered Workshop Supervisor Name Role Phone Christina Arteaga TERE Primary Care Provider [phone] Maxwell White DMD Unavailable [phone] Encounter Details Date Type Department Care Team (Late st Contact Info) Description 07/02/2025 Lab Requisition [facility] [address] [place] [address] Nalini Mcrae, DMD [address] [facility] [address] [place] [phone] Unspecified lesions of oral mucosa Social History [...] Visit [facility] Plastic & Reconstructive Surgery [address] [place] [phone] Marvin Santana MD [address] [address] documented as of this encounter Procedures Procedure Name Priority Date/Time Associated Diagnosis Comments SURGICAL PATHOLOGY CONSULT Routine 06/25/2025 Unspecified lesions of oral mucosa documented in this encounter Results * Surgical Pathology Consult (06/25/2025) Case Report Sugical Pathology Consult Case: [id number] Authorizing Provider: Nalini Mcrae DMD Collected: 06/25/2025 Ordering Location: [facility] Received: 07/02/2025 0734 Pathologist: Timothy Chacon MD Specimen: [id number] 3:35 PM EDT [facility] Final Diagnosis A. 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: COMBINED POSITIVE SCORE (CPS)*: 75 (SEE BELOW FOR ADDITIONAL DETAILS) 3:35 PM EDT [facility] at 1535 EDT Clinical Information K13.70 - Unspecified lesions of oral mucosa [ICD-10-CM] 3:35 PM EDT [facility] Special and Immunohistochemical Stains - PD-L1 [...] supporting tumor stroma, as determined by assay cipher expert, showing partial or complete linear membrane and/or [...] IHC 22C3 pharmDx is not a FDA-approved brand recorder diagnostic for pembrolizumab performed on Dako Flexiroamis Stainer, using formalin-fixed, paraffin imbedded (FFPE) tissue [...] developed by and is performed at the [facility], [address] [place] [address], and has not been cleared by or approved by the [place] Food and Drug Administration (FDA). The laboratory is regulated under CLIA as qualified to perform high-complexity testing. The tests are used for clinical purposes. They should not be regarded as investigational or for research. 3:35 PM EDT [facility] Gross Description A. [id number] H&E a block are received from oral pathology for PD-L1 interpretation. The specimen was collected on 06/25/25. 3:35 PM EDT [facility] Note: A resident was involved in the service. I attest I examined the relevant preparations for the specimens and confirmed the diagnosis or interpretation. 3:35 PM EDT [facility] Tissue 06/25/2025 07/02/2025 7:3 4 AM EDT Nalini Mcrae DMD LAB PATHOLOGY ORDERABLES Final Result [facility] [address] [place] [address] documented in this encounter Visit Diagnoses Diagnosis Unspecified lesions of oral mucosa documented in this encounter Additional Health Concerns Assessment Noted Time A Body Mass Index follow-up plan has been documented for the patient 06/25/2025 11:35 AM EDT documented as of this encounter Care Teams Contract Sheltered Workshop Supervisor Relationship Specialty Start Date End Date Christina Arteaga APRN [address] [place] [address] PCP - General 06/20/25 Maxwell White DMD [facility] [address] [place] [address] Referring Physician 06/24/25 documented as of this encounter
--- OUTSIDE RECORDS SUMMARY | 2025-10-15 09:42 | XMS_ITS | Encounter Summary ---
Author Organization Healthcare Address [address] [place] [address] Care Team Providers Care Food Preservation Scientist Name Role Phone Christina Arteaga APRN Primary Care Provider [phone] Christopher Maxwell Francy DMD Unavailable [phone] Encounter Details Date Type Department Care Team (Late Contact Info) Description 07/01/2025 [facility] [address] [place] [address] [place] [address] Social History Tobacco Use Types Packs/Day Years [...] [facility] Plastic & Reconstructive Surgery [address] [place] [phone] Marvin Santana MD [address] [facility] [address] [place] [phone] documented as of this encounter Visit Diagnoses Not on filedocumented in this encounter Additional Health Concerns Assessment Noted Time A fall risk assessment has been complete d for the patient 06/28/2025 3:34 PM EDT A Body Mass Index follow-up plan has been documented for the patient 06/25/2025 11:35 AM EDT documented as of this encounter Care Teams Food Preservation Scientist Relationship Specialty Start Date End Date Christina Arteaga APRN [address] [place] [address] PCP - General 06/20/25 Maxwell White, CLEM [facility] [address] [place] [address] Referring Physician 06/24/25 documented as of this encounter
--- OUTSIDE RECORDS SUMMARY | 2025-10-15 09:42 | XMS_ITS | Encounter Summary ---
Author Organization Healthcare Address [address] [place] [address] Care Team Providers Care Hydro Station Supervisor Name Role Phone Christina Arteaga APRN Primary Care Provider [phone] Maxwell White DMD Unavailable [phone] Encounter Details Date Type Department Care Team (Late st Contact Info) Description 06/18/2025 [facility] [address] [place] [address] Maxwell White, DMD 101 [facility] [address] [place] [address] Social History Tobacco Use Types Packs/Day Years [...] 10:45 AM EST Office Visit [facility] [address] [place] [address] Marvin Santana MD [address] [phone] documented as of this encounter Visit Diagnoses Not on filedocumented in this encounter Care Teams Hydro Station Supervisor Relationship Specialty Start Date End Date Christina Arteaga APRN [address] [place] [address] PCP - General 06/20/25 Maxwell White, DMD [facility] [address] [place] [address] Referring Physician 06/24/25 documented as of this encounter
--- OUTSIDE RECORDS SUMMARY | 2025-10-15 09:42 | XMS_ITS | Encounter Summary ---
Author Organization [facility] Address [address] [place] [address] Care Team Providers Care Supply Chain Business Analyst Name Role Phone Chandler Christina TERE Primary Care Provider [phone] Christopher Maxwell Francy DMD Unavailable [phone] Encounter Details Date Type Department Care Team [...] were you homeless or living in a prison (including now)? No 08/20/2025 [facility] Utilities Answer [...] Description 11/26/2025 10:45 AM EST Office Visit [facility]astic [facility] Reconstructive Surgery [address] [place] [address] Marvin Santana MD [address] [place] [address] documented as of this encounter Visit Diagnoses Not on filedocumented in this encounter Additional Health Concerns Assessment Noted Time A fall risk assessment has been complete d for the patient 08/09/2025 1:39 PM EDT A Body Mass Index follow-up plan has been documented for the patient 08/30/2025 1:58 PM EDT documented as of this encounter Care Teams Supply Chain Business Analyst Relationship Specialty Start Date End Date Christina Arteaga APRN [address] [place] [address] PCP - General 06/20/25 Maxwell White DMD [facility] [place] [address] [place] [address] Referring Physician 06/24/25 documented as of this encounter
--- OUTSIDE RECORDS SUMMARY | 2025-10-15 09:43 | XMS_ITS | Encounter Summary ---
Author Organization [facility] Address [address] [place] [address] Care Team Providers Care Public Relations Assistant Name Role Phone Chandler Christina TERE Primary Care Provider [phone] Christopher Maxwell Francy DMD Unavailable [phone] Encounter Details Date Type Department Care Team [...] were you homeless or living in a alf (including now)? No 08/21/2025 [facility] Utilities Answer Date Recorded In the past [...] Plastic & Reconstructive Surgery [address] [place] [phone] Marvin Santana MD [address] [place] [phone] documented as of this encounter Visit Diagnoses Not on filedocumented in this encounter Additional Health Concerns Assessment Noted Time A fall risk assessment has been complete d for the patient 08/09/2025 1:39 PM EDT A Body Mass Index follow-up plan has been documented for the patient 08/30/2025 1:58 PM EDT documented as of this encounter Care Teams Public Relations Assistant Relationship Specialty Start Date End Date Christina Arteaga APRN [address] [place] [address] PCP - General 06/20/25 Maxwell White, CLEM [facility] [address] [place] [address] Referring Physician 06/24/25 documented as of this encounter
--- OUTSIDE RECORDS SUMMARY | 2025-10-15 09:43 | XMS_ITS | Encounter Summary ---
Author Organization Healthcare Address [address] [place] [address] Care Team Providers Care Supermarket Manager Name Role Phone Chandler, Christina TERE Primary Care Provider [phone] Maxwell White DMD Unavailable [phone] Encounter Details Date Type Department Care Team (Late st Contact Info) Description 08/21/2025 [facility] [address] [place] [address] RomeoIsha shine RN None None Social History Tobacco Use Types Packs/Day Years [...] any time in the past 12 m [facility], were you homeless or living in a fdc (including now)? No 08/21/2025 [facility] Utilities Answer Date Recorded In [...] No 08/26/2025 8:00 AM EDT June Dolan, RN 6. Suicidal Behavior (Lifetime) No 8:00 AM EDT Don Dolan RN documented as of this encounter Plan of Treatment Upcoming Encounters Date Type Department Care Team (Late st Contact Info) Description 11/26/2025 10:45 AM EST Office Visit [facility]astic & Reconstructive Surgery [address] [place] [address] Marvin Santana MD [address] [phone] documented as of this encounter Visit Diagnoses Not on filedocumented in this encounter Additional Health Concerns Assessment Noted Time A fall risk assessment has been complete d for the patient 08/09/2025 1:39 PM EDT A Body Mass Index follow-up plan has been documented for the patient 08/30/2025 1:58 PM EDT documented as of this encounter Care Teams Supermarket Manager Relationship Specialty Start Date End Date Christina Arteaga APRN [address] [place] [address] PCP - General 06/20/25 aMxwell White DMD [address] [place] [address] [address] [place] [address] Referring Physician 06/24/25 documented as of this encounter
--- OUTSIDE RECORDS SUMMARY | 2025-10-15 09:43 | XMS_ITS | Encounter Summary ---
Author Organization Healthcare Address [address] [place] [address] Care Team Providers Care Concrete Batch Plant Operator Name Role Phone Christina Arteaga APRN Primary Care Provider [phone] Maxwell White DMD Unavailable [phone] Encounter Details Date Type Department Care Team (Late st Contact Info) Description 09/02/2025 Telephone [facility] [address] [place] [phone] Isha Walters, RENATO None None Social History Tobacco Use Types [...] any time in the past 12 m [facility], were you homeless or living in a alf (including now)? No 08/21/2025 [facility] Utilities Answer Date Recorded [...] [facility] Pl[facility] Re[facility] Surgery [address] [place] [address] Marvin Santana MD [address] [address] documented as of this encounter Visit Diagnoses Not on filedocumented in this encounter Additional Health Concerns Assessment Noted Time A fall risk assessment has been complete d for the patient 08/09/2025 1:39 PM EDT A Body Mass Index follow-up plan has been documented for the patient 08/30/2025 1:58 PM EDT documented as of this encounter Care Teams Concrete Batch Plant Operator Relationship Specialty Start Date End Date Christina Arteaga APRN [address] [place] [address] PCP - General 06/20/25 Maxwell White DMD Darvin [address] [place] [address] Referring Physician 06/24/25 documented as of this encounter
--- OUTSIDE RECORDS SUMMARY | 2025-10-15 09:43 | XMS_ITS | Encounter Summary ---
Author Organization [facility] Address [address] 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 Bets number to call for scheduling is patients Elicia :[phone] Encounter Details Date Type Department Care Team (Late st Contact Info) Description 09/02/2025 Orders Only [facility] Respiratory [address] [place] [address] Isha Walters RN None None Squamous cell carcinoma of mandible (Primary Dx); [...] in a fpc (including now)? No 08/21/2025 [facility] [...] Plastic & Reconstructive Surgery [address] [place] [address] Marvin Santana MD [address] [place] [phone] Scheduled Referrals Name Type Priority Associated Diagnoses [...] of this encounter Care Teams Health Care Assistant Relationship Specialty Start Date End Date Christina Arteaga APRN [address] [place] [address] PCP - General 06/20/25 Maxwell White DMD [address] [place] [address] [address] [place] [address] Referring Physician 06/24/25 documented as of this encounter
--- OUTSIDE RECORDS SUMMARY | 2025-10-15 09:43 | XMS_ITS | Encounter Summary ---
Author Organization [facility] Address [address] [place] [address] Care Team Providers Care Perforating Machine Operator Name Role Phone Chandler Christina TERE Primary Care Provider [phone] Christopher Maxwell Francy DMD Unavailable [phone] Encounter Details Date Type Department Care Team [...] any time in the past 12 m [facility], were you homeless or living in a longterm (including now)? No 08/21/2025 [facility] Utilities Answer Date Recorded In [...] 10:45 AM EST Office Visit [facility] Plastic & Reconstructive Surgery [address] [place] [address] Marvin Santana MD [address] [place] [phone] documented as of this encounter Visit Diagnoses Not on filedocumented in this encounter Additional Health Concerns Assessment Noted Time A fall risk assessment has been complete d for the patient 09/06/2025 12:49 PM EDT A Body Mass Index follow-up plan has been documented for the patient 09/04/2025 9:49 AM EDT documented as of this encounter Care Teams Perforating Machine Operator Relationship Specialty Start Date End Date Christina Arteaga APRN [address] [place] [address] PCP - General 06/20/25 Maxwell White, CLEM [facility] [address] [place] [address] Referring Physician 06/24/25 documented as of this encounter
--- OUTSIDE RECORDS SUMMARY | 2025-10-15 09:44 | XMS_ITS | Encounter Summary ---
Author Organization [facility] Address [address] [place] [address] Care Team Providers Care Women'S Health Care Nurse Practitioner Name Role Phone Chandler Christina TERE Primary Care Provider [phone] Maxwell White DMD Unavailable [phone] Reason for Referral * Consultation (Routine) - Authorized Specialty Diagnoses / Procedures Referred By Fausto honeycutt Referred To Contact Oral Surgery [place] [address] fax: [facility] clean up worker [facility] [address] [place] [address] [address] [place] [address] Phone: tel: Referral ID Status Reason Start Date Expiration Date Visits Requested Visits Authorized [id number] Authorized Specialty Services Required 07/03/2025 01/02/2027 1 1 Encounter Details Date Type Department Care Team (Late st Contact Info) Description 07/03/2025 [facility] Orders Community [facility] [address] [place] [address] [place] [address] Oral lesion (Primary Dx) Social History Tobacco [...] Description 11/26/2025 10:45 AM EST Office Visit [facility] Plastic & Reconstructive Surgery [address] [place] [address] Marvin Santana MD [address] [address] Scheduled Referrals Name Type Priority Associated Diagnoses [...] documented as of this encounter Care Teams Women'S Health Care Nurse Practitioner Relationship Specialty Start Date End Date Christina Arteaga APRN [address] [place] [address] PCP - General 06/20/25 Maxwell White DMD [facility] [address] [place] [address] Referring Physician 06/24/25 documented as of this encounter
--- OUTSIDE RECORDS SUMMARY | 2025-10-15 09:44 | XMS_ITS ---
Author Organization [facility] Address [address] [place] [address] Care Team Providers Care Power Engineer Name Role Phone Christina Arteaga TERE Primary Care Provider [phone] Maxwell White DMD Unavailable [phone] Active Problems Problem Noted Date Diagnosed Date [...]
--- OUTSIDE RECORDS SUMMARY | 2025-10-15 09:44 | XMS_ITS | Clinical Summary ---
Author Organization [facility] Address [address] [place] [address] Care Team Providers Care Mucking Machine Operator Name Role Phone Chandler Christina TERE Primary Care Provider [phone] Maxwell White DMD Unavailable [phone] Allergies Active Allergy Reactions Criticality Noted Date [...] capsule Take 1 capsule by mouth daily. 05/17/20 25 Active Multiple Vitamin (multivitamin) tablet Take 1 tablet by mouth daily. Active levothyroxine (Synthroid, Levoxyl) 50 MCG tablet Take 1 tablet by mouth daily before breakfast. Active Multiple Vitamin (MULTIVITAMIN ADULT PO) Active omeprazole (PriLOSEC) [address] capsule Take 1 capsule by mouth daily. Do not crush or chew. Active Cranberry 125 MG tablet Take 1 tablet by mouth daily. Active ondansetron ODT (Zofran-ODT) 4 MG disintegrating tablet Dissolve 1 tablet on the tongue every 8 hours as needed for nausea or vomiting. 20 tablet 08/30/20 25 Active gabapentin (Neurontin) 300 MG capsule Take 1 capsule by mouth 3 times a day. 42 capsule 08/30/20 25 Active naloxone (Narcan) 4 mg/0.1 mL nasal spray 1. Give 1 spray in nostril for no/slow breathing or cannot wake after opioid use 2. Call 911 3. Repeat in other nostril if symptoms continue 1 each 08/30/20 25 Active metoprolol tartrate (Lopressor) 25 MG tablet 0.5 tablets by Per G Tube route 2 times a day. 30 tablet 09/02/20 25 Active acetaminophen (Tylenol Extra Strength) 500 MG tablet Take 2 tablets by mouth every 6 hours as needed for pain. 40 tablet 1 09/20/20 25 026 Active isosource 1.5 Sony/mL liquidIndications :Squamous cell carcinoma of mandible 2 Cans by Nasogastric route 4 times a day. Equivalent Substitutions Allowed? No 1 each 2 09/23/20 25 025 Active aspirin (Ecotrin) 325 MG EC tablet Take 1 tablet by mouth daily. 30 tablet 08/30/20 25 025 isosource 1.5 Sony/mL liquid 1 Can by Nasogastric route every 3 hours. Equivalent Substitutions Allowed? No 1 each 08/30/20 25 025 Discontin ued(Reord er) isosource 1.5 Sony/mL liquid 7 Cans by Nasogastric route 5 times a day. Equivalent Substitutions Allowed? No 1 each 1 09/17/20 25 025 Discontin ued(Reord er) isosource 1.5 Sony/mL liquidIndications :Squamous cell carcinoma of mandible 7 Cans by Nasogastric route 5 times a day. Equivalent Substitutions Allowed? 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 [facility] [address] [facility] [address] [place] [address] Alvaro Adrian DMD, MD 10/08/2025 9:15 AM EST Office Visit [facility] Plastic & Reconstructive [facility] [address] [place] [address] Marvin Santana MD Postoperative examination (Primary Dx) 10/08/2025 Travel 10/02/2025 Travel 09/27/2025 Telephone [facility] Plastic & Reconstructive [facility] [place] [address] Marvin Santana MD [facility] Clinical Concern/Question 09/23/2025 Refill [facility] [address] [facility]nd [place] [address] RomeoIsha RN Squamous cell carcinoma of mandible 09/20/2025 Orders Only [facility] Plastic & Reconstructive Surgery [address] [place] [phone] Corrine Barriga, BRAND DESIGNER 09/20/2025 Telephone [facility] Plastic & Reconstructive Surgery [address] [place] [address] [address] Marvin Santana MD 09/17/2025 1:00 PM EST Office Visit [facility] 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 [facility] [address] [place] [address] Alvaro Adrian DMD, MD Squamous cell carcinoma of mandible (Primary Dx) 09/17/2025 9:15 AM EST Office Visit [facility] Plastic & Reconstructive Surgery [address] [place] [phone] Marvin Santana MD 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) 09/17/2025 Travel 09/10/2025 Travel 09/06/2025 1:00 PM EDT Office Visit [facility] [address] [address] Alvaro Adrian DMD, MD Squamous cell carcinoma of mandible (Primary Dx) 09/06/2025 Travel 09/03/2025 9:15 AM EDT Office Visit [facility] Plastic & Reconstructive Surgery [address] [place] [phone] Marvin Santana MD 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) 09/03/2025 Travel 09/02/2025 Telephone [facility] [address] [address] Isha Walters, RENATO 09/02/2025 Orders Only [facility] Res[facility] [address] [address] Isha Walters, RN Squamous cell carcinoma of mandible (Primary Dx); Floor of mouth squamous cell carcinoma 09/02/2025 Travel 08/28/2025 4:34 PM EDT Anesthesia Event [facility] OPERATING ROOM [address] [place] [address] Twin Hernandez MD Benson, Cathryn M, BRAND DESIGNER 08/28/2025 2:30 PM EDT - 08/28/2025 3:45 PM EDT Surgery [facility] OPERATING RO[facility] [address] [place] [address] Marvin Santana MD Split thickness skin graft to right lower extremity flap donor site [81917 (CPT ) +1 more] 08/21/2025 Abstract [facility] Respiratory [address] [phone] Isha Walters, RENATO 08/19/2025 8:17 AM EDT Anesthesia Event [facility] OPERATING ROOM [address] [place] [address] Kenneth Benavides, Salima Saavedra, BRAND DESIGNER 08/19/2025 7:45 AM EDT - 08/19/2025 11:20 PM EDT Surgery [facility] OPERATING ROOM [address] [place] [address] Marvin Santana MD Left mandibular reconstruction with right free fibula, complex closure of oral wound, [50335 (CPT ) +4 more] 08/19/2025 5:29 AM EDT - 08/30/2025 3:53 PM EDT Hospital Encounter [facility] Inpatient [address] [place] [address] Marvin Santana MD McMaine, Travis B, DMD, MD Squamous cell carcinoma of mandible (Primary Dx); Floor of mouth squamous cell carcinoma; Wound of right lower extremity, initial encounter; Hypertension, unspecified type Discharge Disposition: Home or Self Care 08/19/2025 Travel 08/15/2025 Travel 08/15/2025 Telephone [facility] Res[facility] [address] [facility]nd [place] [address] Hafsa Moore RN 08/13/2025 Travel 08/09/2025 1:45 PM EDT Office Visit [facility] Res[facility] [address] [facility]nd [place] [address] Alvaro Adrian DMD, MD Dental abscess (Primary Dx) 08/09/2025 Travel 08/07/2025 2:30 PM EDT Pre-[facility]mission Testing [facility] [address], [address] [place] [address] 08/07/2025 Travel 07/30/2025 8:45 AM EDT Office Visit [facility] Plastic & Reconstructive Surgery [address] [place] [address] Marvin Santana MD 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) 07/30/2025 Travel 07/25/2025 1:59 PM EDT - 07/25/2025 11:59 PM EDT Hospital Encounter [facility] Infusion [address] [place] [phone] Tongue cancer (CMS/HCC) (Primary Dx); Floor of mouth squamous cell carcinoma Discharge Disposition: Home or Self Care 07/25/2025 1:30 PM EDT Office Visit [facility] Res[facility] [address] [place] [phone] Lei Montana APRN Floor of mouth squamous cell carcinoma; Tongue cancer (CMS/HCC) 07/25/2025 1:15 PM EDT Clinical Support [facility]ck [facility] Respiratory [address] [facility]nd [place] [phone] Floor of mouth squamous cell carcinoma; Tongue cancer (CMS/HCC) 07/25/2025 9:31 AM EDT - 07/25/2025 1:58 PM EDT Hospital Encounter [facility] Radiology [address] [place] [phone] Floor of mouth squamous cell carcinoma; Gastroesophageal reflux disease without esophagitis Discharge Disposition: Home or Self Care 07/25/2025 Travel 07/23/2025 Travel 07/22/2025 Travel 07/22/2025 Telephone [facility] Head[facility] Neck [facility] Respiratory [address] [facility]nd [place] [phone] Jennifer Ortez MD 07/19/2025 Travel from Last 3 Months Family History Medical [...] time in the past 12 m [facility], were you homeless or living in a assisted (including now)? No 08/21/2025 [facility] Utilities Answer Date Recorded In the past [...] Pulse 68 10/08/2025 10:42 AM EST Temperature 36.7 C (98.1 F) 09/06/2025 12:48 PM EDT Respiratory Rate 12 09/06/2025 12:48 PM EDT Oxygen Saturation 99% 10/08/2025 10:42 AM EST Inhaled Oxygen Concentration - - Weight 89 kg (196 lb 3.4 oz) 10/08/2025 10:42 AM EST Height 180.3 cm (5' 11 ) 10/08/2025 10:42 AM EST Body Mass Index 27.37 10/08/2025 10:42 AM EST Plan of Treatment Upcoming Encounters Date Type Department Care Team (Late st Contact Info) Description 11/26/2025 10:45 AM EST Office Visit [facility] Plastic & Reconstructive Surgery [address] [place] [address] Marvin Santana MD [address] [phone] Health Maintenance Due Date Last Done Comments [...] 2017 Sigmoidoscopy 2017 [facility]-Colorectal Cancer Screening 2017 [id number] Vaccine (3 - Pfizer risk series) 09/11/2021 08/14/2021, 07/17/2021 Lung Cancer Screening Shared Decision Making 2022 [facility]-Influenza Vaccine (#1) 2025 [facility]- SDOH Screenings 02/19/2026 [facility]-Adult SDOH Screenings 02/19/2026 08/21/2025 [facility]-Lung Cancer Screening 07/25/2026 07/25/2025, [facility]-Obesity Intervention Completed 025, 09/17/2025, 09/17/2025, Additional history exists HPV Vaccines Aged Out [...] this topic Medical Devices Implanted Type Area Document Control Coordinator Device Identifier Shelf Expiration Date Model / Serial / Lot Plate Ti Pspc Matrixmand Ang Recon 7x23h/2mm Lt - Sna - [id number] Implanted:Qty: 1 on 08/19/2025 by Marvin Santana MD at [facility] Plate [employer]s [id number] 08/19/2026 [id number] / NA / Screw 2.0mm Matrixmandible Lock St 8mm - Sn/A - [id number] Implanted:Qty: 13 on 08/19/2025 by Marvin Santana MD at [facility] Screw [employer]ynthes [facility][id number] 08/19/2026.503.608 .01 / N/A / Screw 2.0mm Matrixmandible Lock St 10mm - Sn/A - [id number] Implanted:Qty: 1 on 08/19/2025 by Marvin Santana MD at [facility] [employer] [id number] 08/19/2026503.610 .01 / N/A / Screw 2.0mm Matrixmandible Lock St 14mm - Sn/A - [id number] Implanted:Qty: 3 on 08/19/2025 by Marvin Santana MD at [facility]08/19/2026.503.614 .01 / N/A / Screw 2.0mm Matrixmandible Lock St 12mm - [id number] Implanted:Qty: 1 on 08/19/2025 by Marvin Santana MD at [facility]503.612 .01 / / Procedures Procedure Name Priority [...] OXYGEN THERAPY Routine 08/28/2025 8:00 PM EDT MA SPLIT GRFT TRUNK,ARM,LEG <100 SQCM 08/28/2025 4:20 PM EDT 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 Needs Dermatome, skin graft mesher, Artiss 4 cc and sprayer, xeroform, telfa, epinephrine/saline, tegaderm, 4-0 vicryl rapide, adaptic, silver dermanet MA SPLIT GRFT,TRUNK,ARM,LEG EA 100 SQCM 08/28/2025 4:20 [...] 3:26 AM EDT MAGNESIUM, PLASMA Routine 08/23/2025 3: 26 AM EDT PHOSPHORUS, PLASMA Routine 08/23/2025 3: [...] ANESTHESIA PLACEHOLDER Routine 08/19/2025 8:27 AM EDT MA AN ELECTIVE ENDOTRACHEAL AIRWAY Routine 08/19/2025 8:27 AM EDT CREATION, TRACHEOSTOMY 08/19/2025 8:05 AM EDT 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 Needs Microinstruments, micrscope available, doppler, handheld ligasure, bovie, bipolar, tournique, tps drill and sawt MA PART REMOVAL TONGUE,<1/2 08/19/2025 8:05 AM EDT 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 Needs Microinstruments, micrscope available, doppler, handheld ligasure, bovie, bipolar, tournique, tps drill and sawt MA REMOVAL NODES, NECK,CERV CMPLT 08/19/2025 8:05 AM EDT 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 Needs Microinstruments, micrscope available, doppler, handheld ligasure, bovie, bipolar, tournique, tps drill and sawt MA REMV MALIG JAW BONE RADICAL 08/19/2025 8:05 AM EDT 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 Needs Microinstruments, micrscope available, doppler, handheld ligasure, bovie, bipolar, tournique, tps drill and sawt MA RECONSTR MANDIBLE,BONE PLATE 08/19/2025 8:05 AM EDT 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 Needs Microinstruments, micrscope available, doppler, handheld ligasure, bovie, bipolar, tournique, tps drill and sawt MA LAYR CLOS WND REST BODY 12.6-20 CM 08/19/2025 8:05 AM EDT 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 Needs Microinstruments, micrscope available, doppler, handheld ligasure, bovie, bipolar, tournique, tps drill and sawt MA REPR,FACE,GENITAL,ARGUETA ND,FT+5 CMCM/< 08/19/2025 8:05 AM EDT 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 Needs Microinstruments, micrscope available, doppler, handheld ligasure, bovie, bipolar, tournique, tps drill and sawt MA RECMPL WND HEAD,FAC,HAND 2.6-7.5 CM 08/19/2025 8:05 AM EDT 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 Needs Microinstruments, micrscope available, doppler, handheld ligasure, bovie, bipolar, tournique, tps drill and sawt MA BONE-SKIN GRAFT, MICROVASCULAR 08/19/2025 8:05 AM EDT [...] cell carcinoma Gastroesophageal reflux disease without esophagitis from Last 3 Months Results * (ABNORMAL) CBC W/O Differential (08/30/2025 3:00 AM EDT) Only the most recent of9 resultswithin the time period is included. WBC Count 10.23 3.70 - 10.30 10*3/uL LAB HEMATOLOGY METHOD 08/30/2025 3:18 AM EDT [facility] RBC Count 3.18(L) 4.60 - 6.10 10*6/uL LAB HEMATOLOGY METHOD 08/30/2025 3:18 AM EDT [facility] HGB 9.9(L) 13.7 - 17.5 g/dL LAB HEMATOLOGY METHOD 08/30/2025 3:18 AM EDT [facility] HCT 30.3(L) 40.0 - 51.0 % LAB HEMATOLOGY METHOD 08/30/2025 3:18 AM EDT [facility] Platelet Count 550(H) 155 - 369 10*3/uL LAB HEMATOLOGY METHOD 08/30/2025 3:18 AM EDT [facility] MCV 95 79 - 98 fL LAB HEMATOLOGY METHOD 08/30/2025 3:18 AM EDT [facility] MCH 31.1 26.0 - 32.0 pg LAB HEMATOLOGY METHOD 08/30/2025 3:18 AM EDT [facility] MCHC 32.7 30.7 - 35.5 g/dL LAB HEMATOLOGY METHOD 08/30/2025 3:18 AM EDT [facility] RDW 13.2 11.5 - 14.5 % LAB HEMATOLOGY METHOD 08/30/2025 3:18 AM EDT [facility] MPV 8.7(L) 8.8 - 12.5 fL LAB HEMATOLOGY METHOD 08/30/2025 3:18 AM EDT [facility] nRBC 0.0 <=0.0 per 100 WBCs LAB HEMATOLOGY METHOD 08/30/2025 3:18 AM EDT [facility] Blood Venous blood specimen / Unknown Venipuncture / Unknown 08/30/2025 3:00 AM EDT 08/30/2025 3:11 AM EDT us Sin Min M Hayder [place] MD LAB BLOOD ORDERABLES Melida l Result [facility] [address] [place] [address] * Phosphorus, Plasma (08/30/2025 3:00 AM EDT) Only the most recent of9 resultswithin the time period is included. Phosphorus, Plasma 4.2 2.5 - 4.5 mg/dL 08/30/2025 3:39 AM EDT [facility] Blood Venous blood specimen / Unknown Venipuncture / Unknown 08/30/2025 3:00 AM EDT 08/30/2025 3:11 AM EDT us Sin Min Lynn Singletary DMD, MD LAB BLOOD ORDERABLES Melida l Result Performing Organization Address [facility] Co de Phone Number [facility] [address] [place] [address] * Magnesium, Plasma (08/30/2025 3:00 AM EDT) Only the most recent of9 resultswithin the time period is included. Magnesium, Plasma 2.4 1.9 - 2.4 mg/dL 08/30/2025 3:39 AM EDT [facility] Blood Venous blood specimen / Unknown Venipuncture / Unknown 08/30/2025 3:00 AM EDT 08/30/2025 3:11 AM EDT us Sin Min Lynn Singletary DMD, MD LAB BLOOD ORDERABLES Melida l Result Performing Organization Address [facility] Co de Phone Number [facility] [address] [place] [address] * (ABNORMAL) Basic Metabolic Panel, Plasma (08/30/2025 3:00 AM EDT) Only the most recent of9 resultswithin the time period is included. Glucose, Plasma 113(H) 74 - 99 mg/dL 08/30/2025 3:39 AM EDT [facility] BUN, Plasma 20 7 - 21 mg/dL 08/30/2025 3:39 AM EDT [facility] Creatinine, Plasma 0.68(L) 0.70 - 1.20 mg/dL 08/30/2025 3:39 AM EDT [facility] BUN/Creatinine Ratio 29 08/30/2025 3:39 AM EDT [facility] Sodium, Plasma 137 136 - 145 mmol/L 08/30/2025 3:39 AM EDT [facility] Potassium, Plasma 4.4 3.6 - 4.9 mmol/L 08/30/2025 3:39 AM EDT [facility] Chloride, Plasma 100 97 - 107 mmol/L 08/30/2025 3:39 AM EDT [facility] CO2, Plasma 28 22 - 29 mmol/L 08/30/2025 3:39 AM EDT [facility] Anion Gap 9 6 - 16 mmol/L 08/30/2025 3:39 AM EDT [facility] Total Calcium, Plasma 9.2 8.9 - 10.2 mg/dL 08/30/2025 3:39 AM EDT [facility] eGFRcr 111.8 mL/min/1.7 3m*2 08/30/2025 3:39 AM EDT [facility] Comment:Reported eGFRcr in m L/min/1.73m2 is based the CKD-EPI 2020 equation that does not use a race coefficient. Blood Venous blood specimen / Unknown Venipuncture / Unknown 08/30/2025 3:00 AM EDT 08/30/2025 3:11 AM EDT us Sin Min M Hayder NJ MD LAB BLOOD ORDERABLES Melida l Result Performing Organization Address City/State/[facility] Co de Phone Number [facility] [address] [place] [address] * (ABNORMAL) POCT glucose meter (08/28/2025 5:41 AM EDT) Only the most recent of20 resultswithin the time period is included. POCT Glucose 105(H) 74 - 99 mg/dL 08/28/2025 5:42 AM EDT [facility] Comment:Accuracy of a glucos e result [...] Comment 08/28/2025 5:42 AM EDT [facility] Data Security Coordinator ID Lavonne Mccauley 08/28/2025 5:42 AM EDT [facility] Device ID [id number] 08/28/2025 5:42 AM EDT [facility] Specimen Type POC Capillary 08/28/2025 5:42 AM EDT [facility] Blood Capillary blood specimen / Unknown 08/28/2025 5:41 AM EDT 08/28/2025 5:42 AM EDT us Alvaro Adrian DMD, MD LAB POINT OF CA RE TEST DOCKED DEVICE UNSOLICITED RESULTS Final Result Performing Organization Address [facility] de Phone Number [facility] [address] [place] [address] * Type and Screen (08/28/2025 3:54 AM [...] ORD ERABLES Final Result Performing Organization Address [facility] Co de Phone Number BLOOD BANK [address] [place] [address], * Wound VAC Dressing Changes (Non-Instillation) (08/26/2025 [...] of the abdomen. COMPARISON: None. FINDINGS: Limited [id number] abdominal radiograph for the purpose of locating tube position. The tip of the feeding tube is within the proximal stomach. Procedure Note Patricio Trevino MD - 08/19/2025 CLINICAL INDICATION: DHT placement TECHNIQUE: Supine radiograph of the abdomen. COMPARISON: None. FINDINGS: Limited [id number] abdominal radiograph for the purpose of locatingtube [...] Not Detected 08/21/2025 10:[address] [facility] Swab (Axilla and Groin) Non-blood Collection / Unknown 08/19/2025 8:19 PM EDT 08/19/2025 8:30 PM EDT Narrative [facility] - 08/21/2025 10:33 AM EDT This PCR assay was developed and its performance characteristics determined by [facility] as appropriate for clinical purposes. This assay has not been cleared or approved by the FDA, but is performed in a CLIA regulated laboratory that is qualified to perform high-complexity testing. Marvin Santana MD LAB MICROBIOLOGY - GENER AL ORDERABLES Final Result Performing Organization Address [facility] Co de Phone Number [address] [address] * Multi Drug Resistance Test (08/19/2025 8:19 PM EDT) Pathologist [facility] Culture No growth at day 1 08/21/2025 7:[address] [facility] Swab (Nares and Nini Rectal) Non-blood Collection / Unknown 08/19/2025 8:19 PM EDT 08/19/2025 8:30 PM EDT Narrative [facility] - 08/21/2025 7:33 AM EDT This test was developed and its performance characteristics determined by the [facility] Clinical Microbiology Laboratory. Although the media is FDA-approved, it is not FDA-approved for all specimen types submitted. The FDA has determined that such clearance or approval is not necessary. This test is used for surveillance purposes. It should not be regarded as investigational or for research. The [facility]biology Laboratory is certified under the Clinical Laboratory Improvement Amendments of 1988 (CLIA-88) as qualified to perform high complexity clinical laboratory testing. Marvin Santana MD LAB MICROBIOLOGY - GENER AL ORDERABLES Final Result Performing Organization Address City/[facility]/ZIP Co de Phone Number [facility] [address] [place] [address] * (ABNORMAL) Blood gas, arterial (08/19/2025 12:23 PM EDT) Only the most recent of2 resultswithin the time period is included. pH, Arterial 7.38 7.35 - 7.45 LAB HEMATOLOGY METHOD 08/19/2025 12:40 PM EDT [facility] pCO2, Arterial 42 32 - 45 mmHg LAB HEMATOLOGY METHOD 08/19/2025 12:40 PM EDT [facility] pO2, Arterial 107 83 - 108 mmHg LAB HEMATOLOGY METHOD 08/19/2025 12:40 PM EDT [facility] SO2, Measured, Arterial 99(H) 94 - 98 % LAB HEMATOLOGY METHOD 08/19/2025 12:40 PM EDT [facility] Base Excess, Arterial -0.8 -2.0 - 3.0 mmol/L LAB HEMATOLOGY METHOD 08/19/2025 12:40 PM EDT [facility] Bicarbonate, Calculated, Arterial 24 22 - 26 mmol/L LAB HEMATOLOGY METHOD 08/19/2025 12:40 PM EDT [facility] Hematocrit, Whole Blood 38.9(L) 40.0 - 51.0 % LAB HEMATOLOGY METHOD 08/19/2025 12:40 PM EDT [facility] Sodium, Whole Blood 138 136 - 145 mmol/L LAB HEMATOLOGY METHOD 08/19/2025 12:40 PM EDT [facility] Potassium, Whole Blood 3.7 3.6 - 4.9 mmol/L LAB HEMATOLOGY METHOD 08/19/2025 12:40 PM EDT [facility] Chloride, Whole Blood 105 97 - 107 mmol/L LAB HEMATOLOGY METHOD 08/19/2025 12:40 PM EDT [facility] Glucose, Whole Blood 146(H) 74 - 99 mg/dL LAB HEMATOLOGY METHOD 08/19/2025 12:40 PM EDT [facility] Ionized Calcium, Whole Blood 4.5(L) 4.6 - 5.1 mg/dL LAB HEMATOLOGY METHOD 08/19/2025 12:40 PM EDT [facility] Lactate, Arterial, Whole Blood 1.0 0.5 - 1.6 mmol/L LAB HEMATOLOGY METHOD 08/19/2025 12:40 PM EDT [facility] Blood Arterial blood specimen / Unknown 08/19/2025 12:23 PM EDT 08/19/2025 12:33 PM EDT 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 Case Report Surgical Pathology Case: [id number] Authorizing Provider: Marvin Santana MD Collected: 08/19/2025 0917 Ordering Location: [facility] OPERATING ROOM Received: 08/19/2025 1337 Pathologist: Timothy [...] fresh for permanent 08/28/2025 11:21 AM EDT [facility] Addendum This addendum is to document the provided clinical history. There is no change in the final diagnosis. Floor of mouth squamous cell carcinoma 08/28/2025 11:21 AM EDT [facility] Addendum electronically signed by [...] FOR CARCINOMA (0/20) 08/28/2025 11:21 AM EDT [facility] [facility] at 1949 EDT Comment:This [...] in part L. 08/28/2025 11:21 AM EDT [facility] Comment:This is an appended [...] pN Category: pN1 08/28/2025 11:21 AM EDT [facility] Clinical Information No Dx Found. 08/28/2025 11:21 AM EDT [facility] Comment:This is an appended [...] TUMOR IDENTIFIED. NO 08/28/2025 11:21 AM EDT [facility] Comment:Corrected result: Pr eviously [...] a 1.1 x 0.6 x 0.3 cm pink-orbin soft tissue fragment. The remaining specimen is [...] a robin-white, papillary, irregularly-shap ed 2.4 cm (anterior-small products i assembler ior) by 1.9 (superior-inferi or) lesion that appears to abut the posterior and inferior margins. Gross photographs both pre ink and inked are provided. Ink code: Blue-anterior Red-superior Green-inferior Black-posterior [place]-medial Uninked (with lesion)-lateral Specimen is serially sectioned [...] of left brandyn mandibulectomy measuring 10.0 cm (anterior-small products i assembler ior) x 4.6 cm (left-right) x 3.5 cm (superior-inferi or) with an attached ramus measuring 6.2 cm (superior-inferi or) x 0.6 cm (left-right) x 1.3 cm (anterior-small products i assembler ior). The specimen is oriented by a short-short stitch on the lateral soft tissue, a long-short stitch on the anterior soft tissue and a long-long stitch on the medial soft tissue. The attached medial soft tissue measures 3.4 (left-right) by 8.4 (anterior-small products i assembler ior) by 2.0 (superior-inferi or), and [...] and the gingiva there is a 3.4 (anterior-small products i assembler ior by 1.8 (superior-inferi or by [...] no other interosseous lesions are grossly noted Human Services Case Manager sections are submitted as follows: L1: Anterior mucosal and soft tissue margin L2: Lateral mucosal and soft tissue margin L3: Medial mucosal and soft tissue margin L4: Posterior mucosal and soft tissue margin L5: Inferior soft tissue margin L6: Mass 2 L7-L9: Mass 1, deepest bone invasion in L9 L10: Mandibular interosseous lesion L11: Softened bone adjacent to lesion L12: Human Services Case Manager sample of lesion Cold Time: 0 Marvel Herrera MD M. LEFT LEVEL NECK 2, FRESH FOR PERMANENT Specimen is received fresh, placed in formalin labeled [facility] level neck 2 and consists of a [...] Marvel Herrera MD 08/28/2025 11:21 AM T [facility] Comment:This is an appended report. These results have been appended to a previously preliminary verified report. Note: A resident was involved in the service. I attest I examined the relevant preparations for the specimens and confirmed the diagnosis or interpretation. 08/28/2025 11:21 AM T [facility] Comment:This is an appended [...] Edited Result - Final [facility] [address] [place] [address] * PB ANESTHESIA NON-TIMED PROCEDURE PLACEHOLDER (08/19/2025 8:39 AM EDT) Narrative Kenneth Benavides CRNA - 08/19/2025 8:39 AM EDT Kenneth [...] procedure well with no complications. Staffing Performed: INTERIOR DESIGN DIRECTOR INTERIOR DESIGN DIRECTOR: Kenneth Benavides CRNA Caden Alas MD ANESTHESIA ORDERABLES Final Re sult * MA AN ELECTIVE ENDOTRACHEAL AIRWAY, PB ANESTHESIA PLACEHOLDER (08/19/2025 8:27 AM EDT) Narrative Kenneth Benavides CRNA - 08/19/2025 8:27 AM EDT Kenneth Benavides CRNA 08/19/2025 8:53 AM Airway Date/Time: 08/19/2025 8:27 AM Reason: elective Airway not difficult General Information and Staff Patient location during procedure: OR INTERIOR DESIGN DIRECTOR: Kenneth Benavides CRNA Performed: INTERIOR DESIGN DIRECTOR Patient Condition Indications for airway management: anesthesia [...] CBC and differential (07/25/2025 1:16 PM EDT) WBC Count 9.66 3.70 - 10.30 10*3/uL LAB HEMATOLOGY METHOD 07/25/2025 1:45 PM EDT [facility] RBC Count 4.07(L) 4.60 - 6.10 10*6/uL LAB HEMATOLOGY METHOD 07/25/2025 1:45 PM EDT [facility] HGB 12.7(L) 13.7 - 17.5 g/dL LAB HEMATOLOGY METHOD 07/25/2025 1:45 PM EDT [facility] HCT 37.5(L) 40.0 - 51.0 % LAB HEMATOLOGY METHOD 07/25/2025 1:45 PM EDT [facility] Platelet Count 293 155 - 369 10*3/uL LAB HEMATOLOGY METHOD 07/25/2025 1:45 PM EDT [facility] MCV 92 79 - 98 fL LAB HEMATOLOGY METHOD 07/25/2025 1:45 PM EDT [facility] MCH 31.2 26.0 - 32.0 pg LAB HEMATOLOGY METHOD 07/25/2025 1:45 PM EDT [facility] MCHC 33.9 30.7 - 35.5 g/dL LAB HEMATOLOGY METHOD 07/25/2025 1:45 PM EDT [facility] RDW 12.0 11.5 - 14.5 % LAB HEMATOLOGY METHOD 07/25/2025 1:45 PM EDT [facility] MPV 9.6 8.8 - 12.5 fL LAB HEMATOLOGY METHOD 07/25/2025 1:45 PM EDT [facility] nRBC 0.0 <=0.0 per 100 WBCs LAB HEMATOLOGY METHOD 07/25/2025 1:45 PM EDT [facility] Differential Type Automated LAB HEMATOLOGY METHOD 07/25/2025 1:45 PM EDT [facility] Neutrophils % 66 % LAB HEMATOLOGY METHOD 07/25/2025 1:45 PM EDT [facility] Lymphocytes % 23 % LAB HEMATOLOGY METHOD 07/25/2025 1:45 PM EDT [facility] Monocytes % 9 % LAB HEMATOLOGY METHOD 07/25/2025 1:45 PM EDT [facility] Eosinophils % 2 % LAB HEMATOLOGY METHOD 07/25/2025 1:45 PM EDT [facility] Basophils % 0 % LAB HEMATOLOGY METHOD 07/25/2025 1:45 PM EDT [facility] Immature Granulocytes % 0 % LAB HEMATOLOGY METHOD 07/25/2025 1:45 PM EDT [facility] Neutrophils Absolute 6.37(H) 1.60 - 6.10 10*3/uL LAB HEMATOLOGY METHOD 07/25/2025 1:45 PM EDT [facility] Lymphocytes Absolute 2.21 1.20 - 3.90 10*3/uL LAB HEMATOLOGY METHOD 07/25/2025 1:45 PM EDT [facility] Monocytes Absolute 0.83 0.30 - 0.90 10*3/uL LAB HEMATOLOGY METHOD 07/25/2025 1:45 PM EDT [facility] Eosinophils Absolute 0.19 0.00 - 0.50 10*3/uL LAB HEMATOLOGY METHOD 07/25/2025 1:45 PM EDT [facility] Basophils Absolute 0.03 0.00 - 0.10 10*3/uL LAB HEMATOLOGY METHOD 07/25/2025 1:45 PM EDT [facility] Immature Granulocytes Absolute 0.03 0.00 - 0.06 10*3/uL LAB HEMATOLOGY METHOD 07/25/2025 1:45 PM EDT [facility] Blood Venous blood specimen / Unknown Venipuncture / Unknown 07/25/2025 1:16 PM EDT 07/25/2025 1:35 PM EDT Narrative [facility] - 07/25/2025 1:45 PM EDT Therapeutic decision making should be based on absolute values, rather than percentages. us Jennifer Ortez MD LAB BLOOD ORDERABLES Final R esult [facility] [address] [place] [address] * (ABNORMAL) Comprehensive metabolic panel (07/25/2025 1:16 PM EDT) Glucose, Plasma 117(H) 74 - 99 mg/dL 07/25/2025 2:08 PM EDT [facility] BUN, Plasma 15 7 - 21 mg/dL 07/25/2025 2:08 PM EDT [facility] Creatinine, Plasma 0.88 0.70 - 1.20 mg/dL 07/25/2025 2:08 PM EDT [facility] BUN/Creatinine Ratio 17 07/25/2025 2:08 PM EDT [facility] Sodium, Plasma 137 136 - 145 mmol/L 07/25/2025 2:08 PM EDT [facility] Potassium, Plasma 4.1 3.6 - 4.9 mmol/L 07/25/2025 2:08 PM EDT [facility] Chloride, Plasma 102 97 - 107 mmol/L 07/25/2025 2:08 PM EDT [facility] CO2, Plasma 21(L) 22 - 29 mmol/L 07/25/2025 2:08 PM EDT [facility] Anion Gap 14 6 - 16 mmol/L 07/25/2025 2:08 PM EDT [facility] Total Calcium, Plasma 9.2 8.9 - 10.2 mg/dL 07/25/2025 2:08 PM EDT [facility] Total Protein 7.5 6.3 - 7.9 g/dL 07/25/2025 2:08 PM EDT [facility] Albumin, Plasma 4.4 3.5 - 5.2 g/dL 07/25/2025 2:08 PM EDT [facility] AST, Plasma 28 10 - 50 U/L 07/25/2025 2:08 PM EDT [facility] ALT, Plasma 19 10 - 50 U/L 07/25/2025 2:08 PM EDT [facility] Alkaline Phosphatase, Plasma 55 40 - 115 U/L 07/25/2025 2:08 PM EDT [facility] Total Bilirubin, Plasma 0.3 0.2 - 1.1 mg/dL 07/25/2025 2:08 PM EDT [facility] eGFRcr 103.5 mL/min/1.7 3m*2 07/25/2025 2:08 PM EDT [facility] Comment:Reported eGFRcr in m L/min/1.73m2 is based the CKD-EPI 2020 equation that does not use a race coefficient. Blood Venous blood specimen / Unknown Venipuncture / Unknown 07/25/2025 1:16 PM EDT 07/25/2025 1:31 PM EDT us Jennifer Ortez MD LAB BLOOD ORDERABLES Final R esult [facility] [address] [place] [address] * CT Chest w IV Contrast (07/25/2025 10:20 AM EDT) Anatomical Region Laterality Modality Chest Computed Tomogra [...] Reginald Leblanc MD on 07/25/2025 11:51 AM us Jennifer Ortez MD IMG CT PROCEDURES Final Resu lt * CT Soft Tissue Neck w IV Contrast (07/25/2025 10:20 AM EDT) Anatomical Region Laterality Modality Neck Computed Tomogra [...] error, please notify the sender immediately at [phone] and permanently delete the original report and destroy any copies or printouts. Narrative 07/25/2025 3:45 PM EDT [facility] - Phone Outpatient NAME: Carlito Perez DATE OF EXAM: 07/25/2025 Patient No: [id number] Physician: Pérez^Yaya Date of : 1970 Past Medical/Surgical History [...] Perez DATE OF EXAM: 07/25/2025 Patient No: [id number] Physician: Pérez^Jennifer^Lynn Date of : 1970 Past [...] in error, pleasenotify the sender immediately at [phone] and permanently delete theoriginal report and destroy any copies or printouts. Jennifer Ortez MD IMG CT PROCEDURES Final Resu lt from Last 3 Months Insurance [facility] [place] [address] Advance Directives Documents on File Type Date Recorded Patient Human Services Case Manager Expl anation Power of Sales Compensation Analyst 08/31/2025 1:32 PM Advance Directives and Sonido g Will 08/31/2025 1:32 PM * Full Code (Latest Code Status on File) Date Activated Date Inactivated Comments 08/19/2025 7:28 AM 08/30/2025 5:53 PM Question Answer Comments I have reviewed the capacity from the link above and, if needed, have updated to appropriate status: Yes Care Teams Mucking Machine Operator Relationship Specialty Start Date End Date Christina Arteaga APRN [address] [place] [address] PCP - General 06/20/25 Maxwell White, CLEM [address] [place] [address] [address] [place] [address] Referring Physician 06/24/25
--- OUTSIDE RECORDS SUMMARY | 2025-10-15 09:45 | XMS_ITS | Encounter Summary ---
Author Organization [facility] [place] [facility] Address [address] [place] [address] Care Team Providers Care Attic Blower Name Role Phone Chandler Christina TERE Primary Care Provider [phone] Christopher Maxwell Francy DMD Unavailable [phone] Encounter Details Date Type Department Care Team [...] any time in the past 12 m [facility], were you homeless or living in a half-way (including now)? No 08/21/2025 [facility] Utilities Answer Date Recorded In [...] Plastic & Reconstructive Surgery [address] [place] [phone] Marvin Santana MD [address] [place] [phone] documented as of this encounter Visit Diagnoses Not on filedocumented in this encounter Additional Health Concerns Assessment Noted Time A fall risk assessment has been complete d for the patient 09/03/2025 9:03 AM EDT A Body Mass Index follow-up plan has been documented for the patient 09/04/2025 9:49 AM EDT documented as of this encounter Care Teams Attic Blower Relationship Specialty Start Date End Date Christina Arteaga APRN [address] [place] [phone] PCP - General 06/20/25 Maxwell White, CLEM [facility] [address] [place] [address] Referring Physician 06/24/25 documented as of this encounter
[2025-10-15 09:58] LABS: Hematocrit 39.4 % (42.0-52.0); Hemoglobin 13.0 g/dL (14.1-18.0); Immature Granulocytes % 0.2 %; Mean Corpuscular HGB Conc 33.0 g/dL (31.8-35.4); Mean Corpuscular Hemoglobin 30.9 pg (27.0-31.2); Mean Corpuscular Volume 93.6 fl (80-94); Nucleated Red Blood Cells % 0 %; Platelet Count 274 K/mm3 (142-424); Red Blood Count 4.21 M/mm3 (4.60-6.20); Red Cell Distribution Width-SD 40.9 fL; White Blood Count 9.3 K/mm3 (4.8-10.8)
[2025-10-15 10:06] LABS: Albumin Level 4.7 g/dl (3.5-5.0); Chloride 99 mmol/L (98-107); Potassium 4.5 mmoL/L (3.5-5.1); Sodium 138 mmol/L (136-145)
[2025-10-15 10:09] LABS: Alanine Aminotransferase 62 U/L (12-78); Albumin/Globulin Ratio 1.3 (1.1-1.8); Alkaline Phosphatase 56 U/L (38-126); Anion Gap 16.5 mEq/L (5-15); Aspartate Amino Transferase 51 U/L (17-59); Bilirubin,Total 0.2 mg/dl (0.2-1.3); Blood Urea Nitrogen 23 mg/dl (9-20); Carbon Dioxide 27 mmol/L (22.0-30.0); Creatinine Clearance Estimated 152 mL/min (50-200); Creatinine,Serum 0.70 mg/dl (0.66-1.25); Estimated Glomerular Filt Rate 118 ml/min (>60); GFR (African American) 143 ML/MIN (>60); Globulin 3.5 g/dL (1.3-3.2); Total Protein,Serum 8.2 g/dl (6.3-8.2)
[2025-10-15 10:10] LABS: Calcium 9.4 mg/dl (8.4-10.2); Glucose 91 mg/dl (74-100)
[2025-10-15] MEDS: POTASSIUM CHLORIDE 20 MEQ, MAGNESIUM SULFATE 2 GM in 0.9 % SODIUM CHLORIDE 1000ML 1,000 ML 507 MEQ IV ×2 (10:18→12:45)
[2025-10-15] MEDS: DEXAMETHASONE 4MG TABLET 12 MG PO (11:17)
[2025-10-15] MEDS: ONDANSETRON 4MG ODT 16 MG SL (11:17)
[2025-10-15] MEDS: APREPITANT 125MG/80MG TRIFOLD PACK 1 PACKET PO (11:17)
[2025-10-15] MEDS: SODIUM CHLORIDE 0.9% 10ML FLUSH SYRINGE 10 ML IV (12:54)
== END 2025-10-15 23:59 | disposition home or self-care (01) ==
LOC: INF 09:38
PROVIDERS: PCP Student in an Organized Health Care Education/Training Program; Visit Provider Internal Medicine Medical Oncology
DX: C02.2 Malignant neoplasm of ventral surface of tongue (principal); Z51.11 Encounter for antineoplastic chemotherapy
CPT/HCPCS: 80053; 85025; 96413; J3475; J3480; J7030; J7050; J8501; J8540; J9060; Q0162

== ENCOUNTER 2025-10-22 09:06 | Outpatient (CLI) | payer OTHER, SELFPAY ==
[2025-10-22] VITALS (8 sets, daily range): BP systolic 110–126; BP diastolic 56–77; PULSE 54–59; RESP 18; TEMP 36.6; O2SAT 97–98; BMI 28.0
[2025-10-22 09:26] LABS: Hematocrit 41.0 % (42.0-52.0); Hemoglobin 13.5 g/dL (14.1-18.0); Immature Granulocytes % 0.6 %; Mean Corpuscular HGB Conc 32.9 g/dL (31.8-35.4); Mean Corpuscular Hemoglobin 30.9 pg (27.0-31.2); Mean Corpuscular Volume 93.8 fl (80-94); Nucleated Red Blood Cells % 0 %; Platelet Count 286 K/mm3 (142-424); Red Blood Count 4.37 M/mm3 (4.60-6.20); Red Cell Distribution Width-SD 40.3 fL; White Blood Count 9.0 K/mm3 (4.8-10.8)
[2025-10-22 09:35] LABS: Alanine Aminotransferase 53 U/L (12-78); Albumin Level 4.8 g/dl (3.5-5.0); Albumin/Globulin Ratio 1.5 (1.1-1.8); Alkaline Phosphatase 60 U/L (38-126); Anion Gap 15.5 mEq/L (5-15); Aspartate Amino Transferase 37 U/L (17-59); Bilirubin,Total 0.2 mg/dl (0.2-1.3); Blood Urea Nitrogen 26 mg/dl (9-20); Calcium 9.6 mg/dl (8.4-10.2); Carbon Dioxide 29 mmol/L (22.0-30.0); Chloride 98 mmol/L (98-107); Creatinine Clearance Estimated 186 mL/min (50-200); Creatinine,Serum 0.60 mg/dl (0.66-1.25); Estimated Glomerular Filt Rate 141 ml/min (>60); GFR (African American) 171 ML/MIN (>60); Globulin 3.3 g/dL (1.3-3.2); Glucose 89 mg/dl (74-100); Potassium 4.5 mmoL/L (3.5-5.1); Sodium 138 mmol/L (136-145); Total Protein,Serum 8.1 g/dl (6.3-8.2)
[2025-10-22] MEDS: POTASSIUM CHLORIDE 20 MEQ, MAGNESIUM SULFATE 2 GM in 0.9 % SODIUM CHLORIDE 1000ML 1,000 ML 507 MEQ IV ×2 (10:18→12:49)
[2025-10-22] MEDS: ONDANSETRON 4MG ODT 16 MG SL (10:57)
[2025-10-22] MEDS: APREPITANT 125MG/80MG TRIFOLD PACK 1 PACKET PO (10:57)
[2025-10-22] MEDS: DEXAMETHASONE 4MG TABLET 12 MG PO (10:57)
[2025-10-22] MEDS: SODIUM CHLORIDE 0.9% 10ML FLUSH SYRINGE 10 ML IV (12:54)
== END 2025-10-22 23:59 | disposition home or self-care (01) ==
LOC: INF 09:07
PROVIDERS: PCP Student in an Organized Health Care Education/Training Program; Visit Provider Internal Medicine Medical Oncology
DX: C02.2 Malignant neoplasm of ventral surface of tongue (principal); Z51.11 Encounter for antineoplastic chemotherapy
CPT/HCPCS: 80053; 85025; 96413; J3475; J3480; J7030; J7050; J8501; J8540; J9060; Q0162

== ENCOUNTER 2025-10-29 08:58 | Outpatient (CLI) | payer OTHER, SELFPAY ==
--- OUTSIDE RECORDS SUMMARY | 2025-08-19 04:29 | XMS_ITS | Encounter Summary ---
Author Organization [facility] Address [address] [place] [address] Care Team Providers Care Machine Overhauler Name Role Phone Chandler Christina TERE Primary Care Provider [phone] Maxwell White DMD Unavailable [phone] Reason for Referral * Consultation (Urgent) - Closed Specialty Diagnoses / Procedures Referred By Fausto honeycutt Referred To Contact Plastic Surgery Diagnoses Wound of right lower extremity, initial encounter Alvaro Adrian DMD, MD [address] [facility] [address] [place] [address] Phone: tel: fax: Referral ID Status Reason Start Date Expiration Date V isits Requested Visits Authorized [id number] Closed Specialty Services Required 08/30/2025 03/01/2027 [address] Santana * Home Health (Routine) - Authorized Specialty Diagnoses / Procedures Referred By Fausto t Referred To Contact Home Health Services / Home Infusion and Injection Services Diagnoses Floor of mouth squamous cell carcinoma Alvaro Adrian DMD, MD [address] [facility] [address] [place] [address] Phone: tel: fax: Referral ID Status Reason Start Date Expiration Date Visits Requested Visits Authorized [id number] Authorized Specialty Services Required 02/22/2027 999 999 * Home Health (Routine) - Authorized Specialty Diagnoses / Procedures Referred By Fausto honeycutt Referred To Contact Home Health Services Diagnoses Floor of mouth squamous cell carcinoma Alvaro Adrian DMD, MD [address] [address] Phone: tel: fax: Referral ID Status Reason Start Date Expiration Date Visits Requested Visits Authorized [id number] Authorized Specialty Services Required 08/22/2025 02/21/2027 999 999 Reason for Visit * Auth/Cert (Routine) Specialty Diagnoses / Procedures Referred By Fausto honeycutt Referred To Contact 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 [C04.9] Procedures ID BONE-SKIN GRAFT, MICROVASCULAR ID RECMPL WND HEAD,FAC,HAND 2.6-7.5 CM ID REPR,FACE,GENITAL,HAND,FT+5 CMCM/< ID LAYR CLOS WND REST BODY 12.6-20 CM ID RECONSTR MANDIBLE,BONE PLATE ID REMV MALIG JAW BONE RADICAL ID REMOVAL NODES, NECK,CERV CMPLT ID PART REMOVAL TONGUE,<1/2 ID BONE-SKIN GRAFT, MICROVASCULAR ID RECONSTR MANDIBLE,BONE PLATE ID RECMPL WND HEAD,FAC,HAND 2.6-7.5 CM ID REPR,FACE,GENITAL,HAND,FT+5 CMCM/< ID LAYR CLOS WND REST BODY 12.6-20 CM ID TRACHEOSTOMY, PLANNED Left mandibular reconstruction with right free fibula, complex closure of oral wound, Left mandibular reconstruction with right free fibula, complex closure of oral wound, Left mandibular reconstruction with right free fibula, complex closure of oral wound, Left mandibular reconstruction with right free fibula, complex closure of oral wound, Left mandibular reconstruction with right free fibula, complex closure of oral wound, EXCISION, NEOPLASM, MALIGNANT, MANDIBLE DISSECTION, NECK, RADICAL GLOSSECTOMY Marvin Santana MD [address] [place] [address] Phone: tel: fax: [facility] [address] [place] [phone] Phone: tel: Referral ID Status Reason Start Date Expiration Date Visits Re quested Visits Authorized [id number] 1 1 Encounter Details Date Type Department Care Team (Late st Contact Info) Description 08/19/2025 5:29 AM EDT - 08/30/2025 3:53 PM EDT Hospital Encounter [facility] [address] [place] [id number] Marvin Santana MD [address] [place] [phone] Alvaro Adrian DMD, MD [address] [facility] [address] [place] [address] Squamous cell carcinoma of mandible (Primary Dx); Floor of mouth squamous cell carcinoma; Wound of right lower extremity, initial encounter; Hypertension, unspecified type Discharge Disposition: Home or Self Care Social History Tobacco Use Types Packs/Day Years Used Date Smoking Tobacco: Every Day Cigarettes 1 41 Started: 1984 Passive Smoke Exposure: Current Smokeless Tobacco: Former Snuff, Chew Alcohol Use Standard Drinks/Week Comments Never 0 (1 standard drink = 0.6 oz pur e alcohol) Humiliation, Afraid, Rape, and Kick questionnair e Answer Date Recorded Within the last year, have y ou been afraid of your partner or ex-partner? No 08/21/2025 Within the last year, have y ou been humiliated or emotionally abused in other ways by your partner or ex-partner? No Within the last year, have y ou been kicked, hit, slapped, or otherwise physically hurt by your partner or ex-partner? No 08/21/2025 Within the last year, have y ou been raped or forced to have any kind of sexual activity by your partner or ex-partner? No 08/21/2025 AUDIT-C Answer Date Recorded Q1: How often do you have a drink containing alcohol? Never 06/28/2025 Q2: How many drinks containi ng alcohol do you have on a typical day when you are drinking? Patient does not drink Q3: How often do you have si x or more drinks on one occasion? Never 06/28/2025 Hunger Vital Sign Answer Date Recorded Within the past 12 months, y ou worried that your food would run out before you got the money to buy more. Never true 08/21/20 25 Within the past 12 months, t he food you bought just didn't last and you didn't have money to get more. Never true 08/21/2025 PRAPARE - Transportation Answer Date Re corded In the past 12 months, has l ack of transportation kept you from medical appointments or from getting medications? No 06/2025 In the past 12 months, has l ack of transportation kept you from meetings, work, or from getting things needed for daily living? No 08/21/2025 Housing Stability Vital Sign Answer Elvin e Recorded In the last 12 months, was t here a time when you were not able to pay the mortgage or rent on time? No 08/21/2025 In the past 12 months, how m any times have you moved where you were living? 0 08/21/2025 At any time in the past 12 m [facility], were you homeless or living in a fpc (including now)? No 08/21/2025 [facility] Utilities Answer Date Recorded In the past 12 months has th e electric, gas, oil, or water company threatened to shut off services in your home? No 08/21/2025 Sex and Gender Information Value Date Recorded Sex Assigned at Not on file Legal Sex Male 8:28 PM EDT Gender Identity Male 06/18/2025 11:51 AM EDT Sexual Orientation Not on file documented as of this encounter Last Filed Vital Signs Vital Sign Reading Time Taken Comments Blood Pressure 107/65 08/30/2025 11:28 AM EDT Pulse 75 08/30/2025 11:28 AM EDT Temperature 36.3 C (97.4 F) 08/30/2025 11:28 AM EDT Respiratory Rate 17 08/30/2025 11:28 AM EDT Oxygen Saturation 95% 08/30/2025 11:28 AM EDT Inhaled Oxygen Concentration - - Weight 88.7 kg (195 lb 8.8 oz) 08/26/2025 4:13 P M EDT Height 180.3 cm (5' 11 ) 08/26/2025 4:13 PM EDT Body Mass Index 27.27 08/26/2025 4:13 PM EDT documented in this encounter Functional Status * Backup Resp Rate (Set) Answer Date of Assessment Author 14 08/19/2025 4:45 PM EDT Interface , Device In * Question Answer Date of Assessment Author Precautions Fall risk;[facility] 08/29/2025 8:00 PM EDT Carly Perez RN * Question Answer Date of Assessment Author Precautions Fall risk;[facility] surveillance 08/29/2025 8:00 PM EDT Carly Perez RN * Calculated C-SSRS Risk Score (Lifetime/Recent) Answer Date of Assessment Author No Risk Indicated 08/29/2025 8:00 PM EDT Carly Perez RN * Question Answer Date of Assessment Author 1. Wish to be (Past 1 Month) No 8:00 PM EDT Carly Perez RN 2. Non-Specific Active Suici violet Thoughts (Past 1 Month) No 08/29/2025 8:00 PM EDT Carly Perez RN 6. Suicidal Behavior (Lifetime) No 8:00 PM EDT Carly Perez RN documented as of this encounter Mental Status * Backup Resp Rate (Set) Answer Entry Date Author 14 08/19/2025 4:45 PM EDT Interface , Device In * Question Answer Entry Date Author Precautions Fall risk;[facility] 08/29/2025 8:00 PM EDT Carly Perez RN documented in this encounter Discharge Instructions * Discharge Instructions* Rusty Melendrez, MARK - 08/29/2025 6:50 AM EDT [facility] Oral & Maxillofacial Surgery Cancer Surgery Discharge Instructions Diet: -Please administer tube feeds Isosource 1.5 (7 cartons a day) by gravity, and please administer 90 mL of additional free water with each feed to ensure hydration. -Take nothing by mouth until given the OK by the surgeon Medications: - You may take Tylenol as indicated on the directions for baseline pain control. - You may take Ibuprofen as indicated on the directions for baseline pain control. - You may alternate taking Tylenol and Ibuprofen as indicated on the directions for baseline pain control. - You may take the prescribed narcotic pain medication(s) as indicated on the directions for severepain. - Take the prescribed stool softener(s) as indicated on the directions as long as you are using thenarcotic pain medication(s). - You may resume your previous medications unless otherwise instructed. - DO NOT EXCEED 4,000mg Tylenol or 3,200mg of Ibuprofen daily. Activity: -Move around as you are able. -No strenuous activity or heavy lifting for 4 weeks after surgery. Do not lift more than 10 pounds of weight for 4 weeks. -Limit exercise to walking for the first 4 weeks. Walking is encouraged. -You may return to light housework or daily activities during the first week after initial swellingstart to decrease. Slowly resuming your activities will help speed your recovery and should make you feel better. -no driving while taking narcotic pain medications Wound or Incision Care: -Clean mouth heals better, brush teeth like normal; be careful to avoid brushing incisions. -Do not take out stitches; they will dissolve over next 4 weeks or can be taken out during your clinic visit after 4 weeks. -Wash your neck wound with mild soap and water once a day; pat dry; do not rub. Do not take out stiches or rosales; they will be taken out during your clinic visit. -Your healthcare provider will remove the stitches or rosales in your face and neck approximately 2weeks after your surgery. -Do not be concerned about the incisions. Keep a thin coating of Vaseline on the incision. Do not soak underwater. The wounds can become a little damp but should be carefully pat dry with a clean towel following your shower. A small amount of watery drainage, bruising, and redness may occur. -Keep wounds moist and clean: free of crusting, dry blood, and debris -Avoid direct sunlight -Two weeks after procedure, a topical sunscreen and silicone gel may be used Right thigh split thickness skin graft harvest site- leave covered with Kerlix and Av dressing in place until follow up Right fibula free flap graft harvest site- Continue Prevena wound vac usage. Keep CAM boot on at all times. Do not soak underwater. Bathing: -Shower any time. Wash your neck wound. Allow the soap and water to run over it. Do not scrub. Do not swim or submerge your head underwater in bathub. Trach: -Tracheostomy neck site - duoderm dressing to cover and should stay in place. Keep the dressing in place, let it peel on its own. If the tracheostomy is still open place a new duoderm dressing to cover it. Instructed patient to call if: It is normal to have some pain and soreness, especially around your incision(s). However, please call the clinic or go to the emergency department if you experience: - Chills, confusion, disorientation, dizziness, drowsiness, shaking - Decreased urination - Fast heartbeat and/or trouble breathing - Fever >101.5 F - Pain not well-controlled by medication(s) - Severe nausea and/or uncontrolled vomiting - Wound(s) or incision(s) become red, swollen, tender, or draining fluid that may or may not be foul smelling Follow-Up: Follow Up on 09/06/[address] Adrian. Address/Phone Number: [facility] [address] [facility] [place] [address] Thank you for the opportunity to allow us to participate in your care. Please do not hesitate to contact our office if you have any questions or concerns. documented in this encounter Medications at Time of Discharge atorvastatin (Lipitor) 20 MG tablet Take 1 tablet by mouth daily. Cranberry 125 MG tablet Take 1 tablet by mouth daily. gabapentin (Neurontin) 300 MG capsule Take 1 capsule by mouth 3 times a day. 42 capsule 5 levothyroxine (Synthroid, Levoxyl) 50 MCG tablet Take 1 tablet by mouth daily before breakfast. Multiple Vitamin (MULTIVITAMIN ADULT PO) Multiple Vitamin (multivitamin) tablet Take 1 tablet by mouth daily. naloxone (Narcan) 4 mg/0.1 mL nasal spray 1. Give 1 spray in nostril for no/slow breathing or cannot wake after opioid use 2. Call 911 3. Repeat in other nostril if symptoms continue 1 each 5 omeprazole (PriLOSEC) [address] capsule Take 1 capsule by mouth daily. Do not crush or chew. ondansetron ODT (Zofran-ODT) 4 MG disintegrating tablet Dissolve 1 tablet on the tongue every 8 hours as needed for nausea or vomiting. 20 tablet 5 ramipril (Altace) 2.5 MG capsule Take 1 capsule by mouth daily. 5 acetaminophen (Tylenol Extra Strength) 500 MG tablet Take 2 tablets by mouth every 6 hours as needed for pain for up to 14 days. 56 tablet 5 09/13/20 25 aspirin (Ecotrin) 325 MG EC tablet Take 1 tablet by mouth daily. 30 tablet 5 09/29/20 25 oxyCODONE (Roxicodone) 5 MG immediate release tablet Take 2 tablets by mouth every 6 hours as needed for moderate pain for up to 7 days. 56 tablet 5 09/06/20 25 polyethylene glycol (Miralax) 17 g packet Take 17 g by mouth daily for 7 days. 7 packet 5 09/06/20 25 senna (Senokot) 8.6 MG tablet Take 1 tablet by mouth at night as needed for constipation for up to 7 days. 7 tablet 5 09/06/20 25 isosource 1.5 Sony/mL liquid 1 Can by Nasogastric route every 3 hours. Equivalent Substitutions Allowed? No 1 each 5 09/17/20 25 metoprolol tartrate (Lopressor) 25 MG tablet Take 1 tablet by mouth 2 times a day. 60 tablet 09/02/20 25 documented as of this encounter Miscellaneous Notes * Progress Notes - Cynthia Sands RN - 08/30/2025 2:59 PM EDT Case Management Discharge Note Carlito Perez 54 y.o. male CSN: [id number] Admission: 08/19/2025 5:29 AM Primary Problem: Floor of mouth squamous cell carcinoma Primary Receptionist Airline Lounge: Primary Caregiver: Self Assistance Available at Discharge: Availability of Care Givers (#Hours): 24 hours Family/Receptionist Airline Lounge(s) Willingness Assessed to care for patient at home: Yes Family/Receptionist Airline Lounge(s) Readiness Assessed to care for patient at home: Yes Housing Circumstances-Z Codes: Housing Circumstances (select all that apply): None Applicable Patient Referred to Financial or Community Resources: Discharge Facility/Level of Care Needs: Discharge Facility/Level of Care Needs: 5-Tvim-K[facility]wx[facility] [place] Patient's Choice of Community Agency(s): Patient/Family Anticipated Services at Transition: Patient/Family Anticipated Services at Transition: case 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 [facility] Follow up [facility] Address: [address], [address] Follow up Rolling walker, please keep equipment as insurance pays for a new one every 5 years. Discharge Transportation: Transportation Anticipated: family or friend will provide Transportation Home at Discharge: Family/Friend will Provide Has discharge transport been arranged?: Yes What day is the transport expected?: 08/30/25 Follow Up Transport: Transportation Needed to Follow up Appoinments: Family/Friend will Provide Additional Comment POC reviewed with primary team. Refer to primary team's discharge note for details. Medically readyto discharge today. Accepted by above [facility]. They will call patient to arrange a home visit. Acceptedby above infusion pharmacy. They will deliver bedside and bedside nurse will provide a teaching session with patient/family. Patient agrees to dc home today and agrees with above DC plan. In??MARIANELA Bass, hog confinement system manager * Discharge Summary - Aneesh, Rusty Machado DDS - 08/30/2025 12:45 PM EDT Images from the original note were not included. Hospitalization Admit Date/Time: 08/19/2025 5:29 AM Admitting Attending: Marvin Santana Discharge Date: 08/30/25 Discharge Attending Physician: Alvaro Adrian DMD PCP name and Address: Christina Arteaga APRN [address] [address] Referring provider name and address: Alvaro Adrian DMD, MD [address] [place] [phone] Chief Concern, Brief History of Present Illness, and Hospital Course Carlito Perez is a 54 y.o. male who presented to on 08/19/25 with Floor of mouth squamouscell carcinoma. He was taken to the operating room for 1) Left segmental mandibulectomy, left selective neck dissection, extraction of all remaining teeth, partial left glossectomy, tracheostomy creation with OMFS on 08/19/25, 2) Fibula free flap reconstruction with Plastic surgery on 08/19/25, and 3) STSG to E on 08/29/25. The patient tolerated the procedure well and was subsequently extubated and transferred to the PACU for recovery. After recovery, the patient was transferred to the floor. He did well postoperatively, with pain well managed and tolerated advancements in diet. At the time of discharge, patient was HDS, afebrile, tolerating TF, ambulating, and voiding spontaneously. He wasappropriate for discharge on 08/29/25 to Home. He will return to clinic with Dr. Adrian on 09/06/25 at [facility] for follow-up. Surgeries and Procedures Procedures performed in this encounter Procedures Case Request Operating Room: Split thickness skin graft to right lower extremity flap donor site Split thickness skin graft to right lower extremity flap donor site (Right) Medication List .. acetaminophen 500 MG tablet Commonly known as: Tylenol Extra Strength Take 2 tablets by mouth every 6 hours as needed for pain for up to 14 days. aspirin 325 MG EC tablet Commonly known as: Ecotrin Take 1 tablet by mouth daily. atorvastatin 20 MG tablet Commonly known as: Lipitor Take 1 tablet by mouth daily. Cranberry 125 MG tablet Take 1 tablet by mouth daily. gabapentin 300 MG capsule Commonly known as: Neurontin Take 1 capsule by mouth 3 times a day. isosource 1.5 Sony/mL liquid 7 Cans by Nasogastric route 5 times a day. Equivalent Substitutions Allowed? No levothyroxine 50 MCG tablet Commonly known as: Synthroid, Levoxyl Take 1 tablet by mouth daily before breakfast. metoprolol succinate XL 50 MG 24 hr tablet Commonly known as: Toprol-XL Take 1 tablet by mouth daily. * multivitamin tablet Take 1 tablet by mouth daily. * MULTIVITAMIN ADULT PO naloxone 4 mg/0.1 mL nasal spray Commonly known as: Narcan 1. Give 1 spray in nostril for no/slow breathing or cannot wake after opioid use 2. Call 911 3. Repeat in other nostril if symptoms continue omeprazole [address] capsule Commonly known as: PriLOSEC Take 1 capsule by mouth daily. Do not crush or chew. ondansetron ODT 4 MG disintegrating tablet Commonly known as: Zofran-ODT Dissolve 1 tablet on the tongue every 8 hours as needed for nausea or vomiting. oxyCODONE 5 MG immediate release tablet Commonly known as: Roxicodone Take 2 tablets by mouth every 6 hours as needed for moderate pain for up to 7 days. polyethylene glycol 17 g packet Commonly known as: Miralax Take 17 g by mouth daily for 7 days. ramipril 2.5 MG capsule Commonly known as: Altace Take 1 capsule by mouth daily. senna 8.6 MG tablet Commonly known as: Senokot Take 1 tablet by mouth at night as needed for constipation for up to 7 days. * This list has 2 medication(s) that are the same as other medications prescribed for you. Read thedirections carefully, and ask your doctor or other care provider to review them with you. . doxycycline 50 MG tablet Commonly known as: Adoxa Take 1 tablet by mouth 2 times a day for 5 days. Take with a full glass of water and do not lie down for at least 30 minutes after. Ask about: Should I take this medication? Where to Get Your Medications These medications were sent to [facility] [place], [place] - 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 -Take nothing by mouth until given the OK by the surgeon Medications: - You may take Tylenol as indicated on the directions for baseline pain control. - You may take Ibuprofen as indicated on the directions for baseline pain control. - You may alternate taking Tylenol and Ibuprofen as indicated on the directions for baseline pain control. - You may take the prescribed narcotic pain medication(s) as indicated on the directions for severepain. - Take the prescribed stool softener(s) as indicated on the directions as long as you are using thenarcotic pain medication(s). - You may resume your previous medications unless otherwise instructed. - DO NOT EXCEED 4,000mg Tylenol or 3,200mg of Ibuprofen daily. Activity: -Move around as you are able. -No strenuous activity or heavy lifting for 4 weeks after surgery. Do not lift more than 10 pounds of weight for 4 weeks. -Limit exercise to walking for the first 4 weeks. Walking is encouraged. -You may return to light housework or daily activities during the first week after initial swellingstart to decrease. Slowly resuming your activities will help speed your recovery and should make you feel better. -no driving while taking narcotic pain medications Wound or Incision Care: -Clean mouth heals better, brush teeth like normal; be careful to avoid brushing incisions. -Do not take out stitches; they will dissolve over next 4 weeks or can be taken out during your clinic visit after 4 weeks. -Wash your neck wound with mild soap and water once a day; pat dry; do not rub. Do not take out stiches or rosales; they will be taken out during your clinic visit. -Your healthcare provider will remove the stitches or rosales in your face and neck approximately 2weeks after your surgery. -Do not be concerned about the incisions. Keep a thin coating of Vaseline on the incision. Do not soak underwater. The wounds can become a little damp but should be carefully pat dry with a clean towel following your shower. A small amount of watery drainage, bruising, and redness may occur. -Keep wounds moist and clean: free of crusting, dry blood, and debris -Avoid direct sunlight -Two weeks after procedure, a topical sunscreen and silicone gel may be used Right thigh split thickness skin graft harvest site- leave covered with Kerlix and Av dressing in place until follow up Right fibula free flap graft harvest site- Continue Prevena wound vac usage. Keep CAM boot on at all times. Do not soak underwater. Bathing: -Shower any time. Wash your neck wound. Allow the soap and water to run over it. Do not scrub. Do not swim or submerge your head underwater in bathub. Trach: -Tracheostomy neck site - duoderm dressing to cover and should stay in place. Keep the dressing in place, let it peel on its own. If the tracheostomy is still open place a new duoderm dressing to cover it. Instructed patient to call if: It is normal to have some pain and soreness, especially around your incision(s). However, please call the clinic or go to the emergency department if you experience: - Chills, confusion, disorientation, dizziness, drowsiness, shaking - Decreased urination - Fast heartbeat and/or trouble breathing - Fever >101.5 F - Pain not well-controlled by medication(s) - Severe nausea and/or uncontrolled vomiting - Wound(s) or incision(s) become red, swollen, tender, or draining fluid that may or may not be foul smelling Follow-Up: Follow Up on 09/06/[address] Adrian. Address/Phone Number: [facility] [address] [place] [address] Thank you for the opportunity to allow us to participate in your care. Please do not hesitate to contact our office if you have any questions or concerns. Outpatient Follow-Up Future Appointments Date Time Provider Department Center 09/03/2025 8:15 AM Marvin Santana MD [facility] 09/06/2025 1:00 PM Alvaro Adrian DMD, MD [facility] [place] Pertinent Physical Exam At Time of Discharge GEN: NAD, resting comfortably. HEENT: Neck: soft, supple, minimally TTP. No fluctuant swellings noted. No evidence of hematoma. Trach removed, duoderm with EKG pad covering trach site. Nose: NG DHT in place. Intraoral: flap soft, warm, appropriate turgor, well-perfused, capillary refill <1 sec, hemostatic. CVS: Regular Rate, well perfused Pulm: Non-labored breathing on RA. Neuro: 11T; Left CN V3 anesthetic. Otherwise, CN II-IV, , VIII-XII grossly intact. MSK: Elevated RLE with CAM boot in place; Mild, soft edema noted with TTP; WV holding suction. DP and TP pulses palpable. Dressing covering right thigh STSG site, hemostatic, no evidence of hematoma,mild edema with TTP Psych: Appropriate for situation, pleasant. Discharge Disposition/Condition Disposition: Home with Home Health Condition: Stable (s/sx potential problems absent or manageable) I spent >30 minutes of patient care and instruction time in preparation for this discharge. Rusty Melendrez DDS [facility] OMFS, PGY-1 Cosigned by Alvaro Adrian DMD, MD at 09/02/2025 8:15 AM EDT Associated attestation - Alvaro Adrian DMD, MD - 09/02/2025 8:15 AM EDT I agree with the residents documentation, assessment and plan. Alvaro Adrian DMD, MD * Progress Notes - Roma Rolon MD - 08/30/2025 8:19 AM EDT Plastic Surgery Progress Note Subjective: Patient seen and examined at bedside this AM. Passy oksana valve in place. Pain well-controlled. Review of Systems: Review of Systems Constitutional: Negative. HENT: Negative. Respiratory: Negative. Cardiovascular: Negative. Gastrointestinal: Negative. Endocrine: Negative. Genitourinary: Negative. Musculoskeletal: Negative. Skin: Negative. Allergic/Immunologic: Negative. Neurological: Negative. Hematological: Negative. Psychiatric/Behavioral: Negative. Objective: Vitals: 08/30/25 0803 BP: 117/73 Pulse: 77 Resp: 17 Temp: (!) 36.1 ??C (97 ??F) SpO2: 95% Current Scheduled Medications[1] Current Continuous Medications[2] Current PRN Medications[3] Labs in last 18 hours CBC WBC 10.23 Hb 9.9 (L) Plt 550 (H) Hct 30.3 (L) BMP Na 137 Cl 100 BUN 20 Glu 113 (H) K 4.4 Co2 28 Cr 0.68 (L) Ca 9.2 iCa ?? Mg 2.4, Phos 4.2 Physical Exam: Physical Exam HENT: Mouth/Throat: Mouth: Mucous membranes are moist. Comments: Flap pink, well-perfused, dopperable signal Neck: Comments: Neck soft, incision C/D/I with Nylons in place Cardiovascular: Pulses: Normal pulses. Pulmonary: Effort: Pulmonary effort is normal. Comments: On trach collar Abdominal: Palpations: Abdomen is soft. Musculoskeletal: Comments: RLE cam boot in place, fires EHL/FHL Right thigh STSG donor site dressing in place, no saturation present Skin: General: Skin is warm. Capillary Refill: Capillary refill takes less than 2 seconds. Neurological: General: No focal deficit present. Mental Status: He is alert. Psychiatric: Mood and Affect: Mood normal. Assessment/Plan: Carlito Perez is a 54 y.o. 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 He is now s/pSTSG to the right leg on 08/28/25. He will keep his WV in place over the right leg until follow up on 09/04/25. - Okay for OOBTC - CAM boot at all times, WBAT RLE - ASA 324 mg for 1 month - Recommend 5 days antibiotics postoperatively, completed - Continue tube feeds at goal, paused for OR - OMFS managing trach - SQH and SCDs for DVT ppx - Plastic Surgery will continue to follow Anahi Rolon MD Plastic and Reconstructive Surgery [1] acetaminophen, 1,000 mg, Nasogastric, q6h JOVANNI aspirin, 324 mg, Nasogastric, Daily atorvastatin, 20 mg, Nasogastric, Daily esomeprazole, 40 mg, Nasogastric, Daily gabapentin, 300 mg, Nasogastric, TID heparin (porcine), 5,000 Units, Subcutaneous, q8h JOVANNI lactobacillus acidophilus, 1 tablet, Nasogastric, BID levothyroxine, 50 mcg, Nasogastric, q AM melatonin, 6 mg, Nasogastric, Nightly metoprolol tartrate, 12.5 mg, Nasogastric, BID polyethylene glycol, 17 g, Nasogastric, BID senna, 8.6 mg, Nasogastric, BID sodium chloride, 3 mL, Nebulization, BID [2] [3] PRN medications: bisacodyl, magnesium hydroxide, [DISCONTINUED] ondansetron ODT OR ondansetron OR ondansetron, oxyCODONE OR oxyCODONE Cosigned by Marvin Santana MD at 09/02/2025 3:59 PM EDT Associated attestation - Marvin Santana MD - 09/02/2025 3:59 PM EDT I discussed the case with the resident/fellow and agree with the findings and plan as documented. * Care Plan - Carly Perez - 08/30/2025 5:45 AM EDT Problem: Adult Inpatient Plan of Care Goal: Plan of Care Review Outcome: Ongoing, Progressing Flowsheets Taken 08/29/2025 0419 by Carly Perez Plan of Care Reviewed With: patient Taken 08/28/2025 0940 by Marily Owens RN Progress: improving Taken 08/24/20252003 by Shania Perez Outcome Evaluation: patient awake alert and oriented ambulating in room to restroom Goal: Patient-Specific Goal (Individualized) Outcome: Ongoing, Progressing Flowsheets (Taken 08/29/20251999) Patient/Family-Specific Goals (Include Timeframe): pt will verbalize adequate pain control throughout shift Individualized Care Needs: pain control Anxieties, Fears or Concerns: none Goal: Absence of Hospital-Acquired Illness or Injury Outcome: Ongoing, Progressing Intervention: Identify and Manage Fall Risk Flowsheets (Taken 08/29/20251999) Safety Promotion/Fall Prevention: activity supervised assistive device/personal items within reach clutter-free environment maintained fall prevention program maintained lighting adjusted mobility aid in reach nonskid shoes/slippers when out of bed safety round/check completed room organization consistent Intervention: Prevent Skin Injury Flowsheets Taken 08/29/2025418 by Carly Perez Body Position: weight shifting Taken 08/27/2025 1016 by Don Dolan, RN Skin Protection: incontinence pads utilized pulse oximeter probe site changed skin sealant/moisture barrier applied Intervention: Prevent and Manage VTE (Venous Thromboembolism) Risk Flowsheets (Taken 08/29/20251999) VTE Prevention/Management: left SCDs (sequential compression devices) on medication Intervention: Prevent Infection Flowsheets (Taken 08/27/2025 1016 by Don Dolan, RN) Infection Prevention: hand hygiene promoted environmental surveillance performed personal protective equipment utilized Goal: Optimal Comfort and Wellbeing Outcome: Ongoing, Progressing Problem: Pain Acute Goal: Optimal Pain Control and Function Outcome: Ongoing, Progressing Intervention: Develop Pain Management Plan Flowsheets (Taken 08/30/2025 0252) Pain Management Interventions: medication (see MAR) pain management plan reviewed with patient/caregiver Intervention: Prevent or Manage Pain Flowsheets (Taken 08/27/2025 1016 by Don Dolan RN) Sensory Stimulation Regulation: television on Bowel Elimination Promotion: ambulation promoted privacy promoted Sleep/Rest Enhancement: consistent schedule promoted natural light exposure provided Medication Review/Management: medications reviewed Problem: Surgery Nonspecified Goal: Absence of Bleeding Outcome: Ongoing, Progressing Intervention: Monitor and Manage Bleeding Flowsheets (Taken 08/27/2025 1016 by Don Dolan RN) Bleeding Management: dressing monitored Goal: Effective Bowel Elimination Outcome: Ongoing, Progressing Goal: Fluid and Electrolyte Balance Outcome: Ongoing, Progressing Goal: Absence of Infection Signs and Symptoms Outcome: Ongoing, Progressing Intervention: Prevent or Manage Infection Flowsheets Taken 08/29/2025 2000 by Carly Perez Isolation Precautions: precautions maintained Taken 08/27/2025 1016 by Don Dolan RN Fever Reduction/Comfort Measures: lightweight bedding lightweight clothing Taken 08/27/2025 0401 by Yessi Campbell RN Infection Management: aseptic technique maintained Goal: Optimal Pain Control and Function Outcome: Ongoing, Progressing Intervention: Prevent or Manage Pain Flowsheets Taken 08/30/2025 0252 by Carly Perez Pain Management Interventions: medication (see MAR) pain management plan reviewed with patient/caregiver Taken 08/27/2025 1016 by Don Dolan RN Diversional Activities: smartphone television Goal: Effective Oxygenation and Ventilation Outcome: Ongoing, Progressing Intervention: Optimize Oxygenation and Ventilation Flowsheets Taken 08/30/2025 0400 by Carly Perez Activity Management: activity adjusted per tolerance Head of Bed (HOB) Positioning: HOB elevated Cough And Deep Breathing: done independently per patient Taken 08/27/2025 1016 by Don Dolan RN Airway/Ventilation Management: airway patency maintained humidification applied position adjusted Problem: Infection Goal: Absence of Infection Signs and Symptoms Outcome: Ongoing, Progressing Problem: Skin Injury Risk Increased Goal: Skin Health and Integrity Outcome: Ongoing, Progressing Intervention: Optimize Skin Protection Flowsheets Taken 08/30/2025 0400 by Carly Perez Activity Management: activity adjusted per tolerance Head of Bed (HOB) Positioning: HOB elevated Taken 08/27/2025 1016 by Don Dolan, RN Pressure Reduction Techniques: frequent weight shift encouraged weight shift assistance provided heels elevated off bed Pressure Reduction Devices: foam padding utilized positioning supports utilized Skin Protection: incontinence pads utilized pulse oximeter probe site changed skin sealant/moisture barrier applied Intervention: Promote and Optimize Oral Intake Flowsheets (Taken 08/27/2025 1016 by Don Dolan, RN) Oral Nutrition Promotion: physical activity promoted Nutrition Interventions: diet adjusted Problem: Fall Injury Risk Goal: Absence of Fall and Fall-Related Injury Outcome: Ongoing, Progressing Intervention: Identify and Manage Contributors Flowsheets (Taken 08/27/2025 1016 by Don Dolan, RN) Medication Review/Management: medications reviewed Self-Care Promotion: independence encouraged BADL personal objects within reach Intervention: Promote Injury-Free Environment Flowsheets (Taken 08/29/20251999) Safety Promotion/Fall Prevention: activity supervised assistive device/personal items within reach clutter-free environment maintained fall prevention program maintained lighting adjusted mobility aid in reach nonskid shoes/slippers when out of bed safety round/check completed room organization consistent Problem: Artificial Airway Goal: Effective Communication Outcome: Ongoing, Progressing Intervention: Ensure Effective Communication Flowsheets Taken 08/27/2025 1016 by Don Dolan, RN Diversional Activities: smartphone television Family/Support System Care: involvement promoted Communication Enhancement Strategies: call light answered in person communication board used communication device used device use encouraged Taken 08/27/2025 0401 by Yessi Campbell RN Trust Relationship/Rapport: care explained choices provided emotional support provided empathic listening provided questions answered questions encouraged thoughts/feelings acknowledged * Progress Notes - Cynthia Sands RN - 08/29/2025 12:59 PM EDT Case Management Adult Progress Note Carlito Perez 54 y.o. male CSN: [id number] Admission: 08/19/2025 5:29 AM Primary Problem: Floor of mouth squamous cell carcinoma Anticipated Discharge Date: 08/29/25 Has Discharge Plans Changed? Medicare Second Notice: Housing Circumstances: Housing Circumstances Action Taken: Medically Ready for Discharge: Additional Comments TF has been approved, Geraldine will deliver this afternnon at bedside. Kellie has approved the wound vac, he will deliver at bedside this afternoon. * Query Clarification Note - Alvaro Adrian DMD, MD - 08/29/2025 11:40 AM EDT Please review the following and provide your response below. Based on the clinical indicators, which of the following most accurately represents the patients nutritional status? []Malnutrition-specify if []moderate, or []severe []No nutritional deficiency [x]Other explanation of clinical findings (please specify) This documentation will become part of the patient's medical record. NG feeds to bypass reconstructed oral cavity while healing * Consults - Brenda Daniels RD - 08/29/2025 10:50 AM EDT Adult Nutrition Evaluation Note Carlito Perez 54 y.o. male CSN: [id number] Room/Bed 128/128A Nutrition evaluation type: follow-up Reason for evaluation: Hospital course: 54 y o M with SCC of left mandibular gingiva and left anterior tongue; admitted 08/19/25 s/p OR for Left mandibular reconstruction with free fibula flap, left segmental mandibulectomy, neck dissection, partial glossectomy, extraction of all remaining teeth, DL with Bx, & trach creation. TF has been transitioned to bolus regimen. (08/29): OR 08/28 for RLE donor site wound I&D and STSG to RLE wound from the right thigh. TF resumed. Past medical/ surgical history: Past Medical History[1] Surgical History[2] Social history: Social History[3] Additional comments: 08/19: Pt in OR location at time of consult & assessment. 08/23: Changed to bolus regimen yesterday. 08/29: Pt receiving care Vitals and Basic Assessment: BP: 119/71 Temp: 36.6 ??C (97.8 ??F) Oxygen Therapy: Supplemental oxygen (Patient tolerated session on room air with SpO2 WNL) O2 Delivery Method: Humidified trach collar [place] Coma Scale Score: 15 Dex Scale Score: 19 Virgilio/Manny Pressure Risk Score: 41 Most Recent BM Date: 08/29/25 GI Symptoms: None Skin: wound vac, right pretibial surgical wound, mid neck surgical wound, mouth surgical wound, right upper leg surgical graft Allergies: Fish, Shellfish Medications: Current Scheduled Medications[4] Current Continuous Medications[5] Current PRN Medications[6] Labs: Results from last 7 days Lab Units 08/29/2523608/28/2535308/27/25343 WBC 10*3/uL 11.08* 10.56* 10.56* HEMOGLOBIN g/dL 9.6* 9.5* 9.3* HEMATOCRIT % 29.0* 28.8* 28.1* PLATELETS 10*3/uL 547* 552* 483* Results from last 7 days Lab Units 08/29/2523608/28/2535308/27/25343 SODIUM mmol/L 138 136 135* POTASSIUM mmol/L 3.8 4.2 4.2 CHLORIDE mmol/L 100 99 99 CO2 mmol/L 28 BUN mg/dL 19 18 17 CREATININE mg/dL 0.72 0.62* 0.60* EGFR mL/min/1.73m*2 109.9 115.0 116.1 GLUCOSE mg/dL 110* 101* 99 CALCIUM mg/dL 9.0 9.3 9.2 PHOSPHORUS mg/dL 4.1 4.3 3.5 Magnesium, Plasma Date Value Ref Range Status 08/29/2025 2.2 1.9 - 2.4 mg/dL Final Lab Results Component Value Date ALT 19 07/25/2025 AST 28 07/25/2025 ALKPHOS 55 07/25/2025 BILITOT 0.3 07/25/2025 Lab Results Component Value Date ALBUMIN 4.4 07/25/2025 No results found for: PREALBUMIN No results found for: CRP No results found for: HGBA1C No results found for: CHOL No results found for: HDL No results found for: LDLCALC No results found for: TRIG Anthropometrics: Height: 180.3 cm Weight: 87.1 kg IBW: 78.2 kg %IBW: 111.4 Adjusted Body Weight: N/A BMI: 26.8 Wt evaluation: Overweight Weight History: Wt Readings from Last 30 Encounters: 08/26/25 88.7 kg (195 lb 8.8 oz) 08/09/25 90.5 kg (199 lb 8.3 oz) 07/30/25 94.3 kg (207 lb 14.3 oz) 07/25/25 94.2 kg (207 lb 10.8 oz) 07/25/25 94.1 kg (207 lb 7.3 oz) 07/09/25 95 kg (209 lb 7 oz) 07/04/25 94.4 kg (208 lb 1.8 oz) 07/04/25 94.4 kg (208 lb 1.8 oz) 07/01/25 94.2 kg (207 lb 10.8 oz) 06/28/25 93.7 kg (206 lb 9.1 oz) 06/25/25 96.1 kg (211 lb 13.8 oz) 04/14/23 97.5 kg (215 lb) Wt change: 7.4% loss / 1 month (severe), 10.7% loss / 4 months Weight Trend: Date/Time Weight 08/26/25 1613 88.7 kg (195 lb 8.8 oz) 08/25/25 23:00:36 59.6 kg (131 lb 6.3 oz) 08/19/25 0639 87.1 kg (192 lb) -Discrepancy noted - continue to monitor trend for accuracy Estimated Needs: Kcal: 30-35 kcal/kg (8740-2785 kcal/d) Protein: 1.5-1.8 g/kg (131-157 g/d) Based on: Current wt (87.1 kg) Current Nutrition Intake: Diet: NPO Nutrition Support: Feeding route: NGT Active enteral regimen: Isosource 1.5 (291 mL) x 6x/d (1746 mL/d) Provides: 2619 kcal, 119 g Pro, 1334 mL FW/d Avg enteral infusion: 08/29: 3 day avg met 91% goal volume Diet Experience & Nutrition History: Diet Education: Will monitor Pertinent Home Medications: Lipitor, Prilosec Nutrition Focused Physical Exam: Physical exam performed on (date): pending Assessment of Malnutrition: Nutrition Problem: Inadequate oral intake related to need for OR as evidenced by NPO status, anticipated need for TF to provide nutrition. Status of Nutrition Diagnosis: Ongoing Nutrition Interventions and Recommendations: NPO Inpatient continuous TF rec: Isosource 1.5 with goal rate of 85 ml/hr (1870 ml/day) Provides: 2805 kcal, 127 g protein, 329g CHO, 28g fiber, 110g fat, 1421 ml water, and 187% RDIs vit/min FW management per team at this time Inpatient / Discharge bolus TF rec: Isosource 1.7, goal of 7 cartons/d (1750 mL/d) Provides: 2625 kcal, 119 g Pro, 1337 mL FW/d FW: recommend 90 mL FW flushes before and after each bolus Recommend weekly weight monitoring Nutrition Monitoring and Goals: -Monitor tolerance and adequacy of enteral infusion, wt changes, bowel fxn, labs, skin integrity; and follow up per acuity -Avg >80% goal enteral volume daily (ongoing) Acuity Level: 3 Brenda Daniels, RD, LD [1] Past Medical History: Diagnosis Date Adverse effect of anesthesia allergy to shellfish, penicillan CAD (coronary artery disease) Cancer ([facility]) [id number] Coronary artery calcification Dental disease chipped teeth, jony block for vocal chord damage Fractures clavical surgery GERD (gastroesophageal reflux disease) 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 HLD (hyperlipidemia) HTN (hypertension) Hypothyroidism Reflux gastritis Substance abuse 1988 [2] Past Surgical History: Procedure Laterality Date APPENDECTOMY 1979 CARDIOTHORACIC PROCEDURE stents CAROTID STENT 04/26/2023 COLONOSCOPY 2023 CORONARY STENT PLACEMENT [id number] ORTHOPEDIC SURGERY repair to clavical OTHER SURGICAL HISTORY appendectomy, vasectomy THROAT SURGERY repair vocal chords [3] Social History Tobacco Use Smoking status: Every Day Current packs/day: 1.00 Average packs/day: 1 pack/day for 40.8 years (40.8 ttl pk-yrs) Types: Cigarettes Start date: 1984 Passive exposure: Current Smokeless tobacco: Former Types: Snuff, Chew Vaping Use Vaping status: Never Used Substance Use Topics Alcohol use: Never Drug use: Never [4] acetaminophen, 1,000 mg, Nasogastric, q6h JOVANNI aspirin, 324 mg, Nasogastric, Daily atorvastatin, 20 mg, Nasogastric, Daily bacitracin, 1 Jar, Topical, Daily esomeprazole, 40 mg, Nasogastric, Daily gabapentin, 300 mg, Nasogastric, TID heparin (porcine), 5,000 Units, Subcutaneous, q8h JOVANNI lactobacillus acidophilus, 1 tablet, Nasogastric, BID levothyroxine, 50 mcg, Nasogastric, q AM lidocaine-EPINEPHrine, 10 mL, Infiltration, Once melatonin, 6 mg, Nasogastric, Nightly metoprolol tartrate, 12.5 mg, Nasogastric, BID polyethylene glycol, 17 g, Nasogastric, BID senna, 8.6 mg, Nasogastric, BID sodium chloride, 3 mL, Nebulization, BID [5] [6] PRN medications: bisacodyl, magnesium hydroxide, [DISCONTINUED] ondansetron ODT OR ondansetron OR ondansetron, oxyCODONE OR oxyCODONE * Progress Notes - Nicole Rodriguez - 08/29/2025 8:43 AM EDT Occupational Therapy Treatment Patient Name: Saravanan Perez Today's Date: 08/29/2025 Total Treatment Time: 26 minutes OT Discharge Recommendations: Home with assistance, Home health OT, Home health PT Equipment Recommended: Rolling walker Subjective Patient agreeable to OT session. Participants in Care Family/Caregiver Present: Yes Family/Caregiver: (Adult Sister) Academic Associate: Not Applicable Presentation Oxygen Therapy: Supplemental oxygen (Patient tolerated session on room air with SpO2 WNL) O2 Delivery Method: Humidified trach collar FiO2 (%): 21 % O2 Flow Rate (L/min): 5 L/min Lines and Tubes: Surgical Airway Shiley Cuffed 6 (Active) Feeding Tube Left nare (Active) Negative Pressure Wound Therapy Leg Anterior;Lower;Right (Active) Peripheral IV 08/19/25 Right Antecubital (Active) Peripheral IV 08/19/25 Left Hand (Active) Pre-Session: Supine, Head of bed elevated, Lines intact Pre-Session Comments: RN agreeable to therapy session. Right LE CAM boot donned. Post-Session: Sitting in chair, Chair alarm, Lines intact, Call light in reach, RN notified Post-Session Comments: Patient positioned for comfort/pressure relief with pillow supports and all needs in reach. Right LE CAM boot remained donned. Orthoses: CAM boot - right Precautions Right Lower Extremity Weight Bearing Status: Weight Bearing as Tolerated (with CAM boot for ambulation; on AAT - okay to remove for skin inspection, hygiene, and dressing changes per medical TEAM) Medical Precautions: Fall precautions Objective Pain Patient reported 6/10 pain in right LE at rest that increased to 7.5/10 with mobility. RN aware. Patient positioned for comfort/pressure relief with pillow supports and all needs in reach at end of session. Delirium Screening RASS: Alert and calm Confusion Assessment Method-ICU (CAM-ICU/PCAM-ICU) Feature 1: Acute Onset or Fluctuating Course: Negative Feature 2: Inattention: Negative Feature 3: Altered Level of Consciousness: Negative Feature 4: Disorganized Thinking: Negative Overall CAM-ICU/PCAM-ICU: Negative Cognition Cognition Overall Cognitive Status: Within Functional Limits Arousal/Alertness: Appropriate responses to stimuli Mood/Behavior: Alert Orientation Level: Oriented X4 Single Step Commands: Consistently, 100% of the time Multi-Step Commands: Consistently, 100% of the time Method of Communication: Mouthing, Writing, Nodding (Gestures) Safety Judgment: Decreased awareness of need for assistance Awareness of Errors: Assistance required to identify errors made Deficit Awareness: Fully aware of deficits Attention Span: Appears intact, Attends with cues to redirect Bed Mobility Bed Mobility Exam: Scooting/Bridging Level of [place]: Stand-by assist (anteriorly to EOB) Physical/Nonphysical Assist: Set-up required, Supervision, Verbal Cues Bed Mobility Exam: Supine to Sit Level of [place]: Stand-by assist (to the left) Physical/Nonphysical Assist: Set-up required, Supervision, Verbal Cues, Minimal cues, HOB elevated Transfers Transfer Exam: Sit to stand Level of [place]: Stand-by assist Physical/Nonphysical Assist: Set-up required, Supervision, Verbal Cues, Minimal cues Assistive Device: Walker, rolling Transfer Exam: Stand to Sit Level of [place]: Stand-by assist Physical/Nonphysical Assist: Supervision, Verbal Cues, Minimal cues Assistive Device: Walker, rolling Functional Mobility Device: Rolling walker Assistance: Standby assist, Minimal verbal cues Distance : 130' x 2 with seated rest break between each distance Balance Postural Appearance Posture: Within Functional Limits Static Sitting Balance Static Sitting-Balance Support: No upper extremity support, Feet supported Static Sitting-Level of Assistance: Supervision Dynamic Sitting Balance Dynamic Sitting-Balance Support: No upper extremity support, Feet supported Level of Assistance: Standby assisst Static Standing Balance Static Standing-Balance Support: Right upper extremity support, Left upper extremity support (on RW) Static Standing-Level of Assistance: Standby assist Dynamic Standing Balance Dynamic Standing-Balance Support: Right upper extremity support, Left upper extremity support (on RW) Dynamic Standing Level of Assistance: Standby assist Self-Care Interventions Self Care/Home Management (ADLs) Time Entry: 16 Self_Care Interventions: OT facilitated patient engagement in sequential task training emphasizing functional transitions required for increased performance in higher level BADLs/IADLs and continued progress towards OT POC goals. Refer to the above sections for patient performance and levels of assistance required for aspects of mobility completed on this date. Of note, increased time required for: appropriate room set-up via environmental modifications to optimize patient safety and accessibility to all areas of treatment spaces, skilled management of medical lines/tubes, vital monitoring, task modification/grading activity to provide functional challenge and promote success , BADL retraining, patient education, caregiver/family education, and staff education (RN/Tech/TEAM in regards to patient safety/vitals/mobility during session). Refer to below sections for additional self-care interventions completed during session. UE Dressing UE Dressing Level of Assistance: SBA UE Dressing Where Assessed: Edge of bed UE Dressing Interventions: Patient required SBA to adjust gown in unsupported sitting position. Lower Extremity Dressing Sock Level of Assistance: Moderate assistance Shoe Level of Assistance: Moderate assistance Adult Briefs Level of Assistance: Dependent LE Dressing Where Assessed: Edge of bed LE Dressing Interventions: Patient required MOD assist to logan lower body footwear (DEP assist to adjust straps on right LE CAM boot and SBA to logan sock/shoe for left LE). Toileting Toileting Level of Assistance: SBA Where Assessed: (Simulated) Toileting Interventions: OT engaged patient in simulated toileting routine in which patient required SBA to engage in all functional transfers and navigate household/small community distances (130' x2) with use of RW. No LOB noted within presented task. Patient did not have to utilize bathroom within session. Patient endorsed that he has been requiring no physical assistance to navigation < > bathroom, transfer < > standard toilet, manage clothing, or complete nini-care hygiene. OTcontinues to anticipate that patient will progress well with personal toileting routine. Grooming Grooming Level of Assistance: Setup, SBA Grooming Where Assessed: Chair level Grooming Interventions: Therapist provided set-up assist for oral suction in reach. Patient completed oral suction to manage secreations with SBA in unsupported sitting. Patient deferred additional grooming tasks on this date. Bathing UE Bathing Level of Assistance: Minimum assistance LE Bathing Level of Assistance: Minimum assistance Bathing Interventions: Anticipated level of assistance/performance per clinical judgement secondaryto lines/wound care/trach needs. OT provided patient/caregiver education regarding bathing/showering safety and provided handout for reference in regards to a shower chair (if patient desires to obtain one for his walk-in shower). Therapeutic Exercise (10 minutes) OT created personalized HEP and educated patient on AROM UE exercises to promote increased strengthand activity tolerance required for increased performance within engaging in higher level BADLs. Yemihen engaged patient in bilateral UE AROM exercises in supported sitting position emphasizing appropriate performance/movement for each presented exercises for patient safety. Patient performed 1 x 5repetitions of each exercise listed below. Patient encouraged to perform prescribed HEP exercises 2-3 times a day as tolerated. Patient actively engaged throughout presented exercises and verbalized understanding. Patient would continue to benefit from further education on presented items to promote carryover of provided education. Refer to below sections for additional details (access code/frequencies) regarding prescribed HEP. Written HEP handout/printout provided for visual reference. Access Code: [email or web address] URL: [email or web address] Date: 08/29/2025 Exercises - Seated Elbow Flexion and Extension AROM - 3 x daily - 1 sets - 10-15 reps - Seated Bilateral Bent Arm Shoulder Abduction - 3 x daily - 1 sets - 10-15 reps - Seated Punches - 3 x daily - 1 sets - 10-15 reps - Seated Reaching Across Body - 3 x daily - 1 sets - 10-15 reps - Seated Shoulder Flexion Full Range - 3 x daily - 1 sets - 10-15 reps Patient Education - Energy Conservation During Daily Tasks - Adaptive Equipment for Bathing & Showering Standardized Assessments [facility] 6-Click Daily Activities Help from Other: Don/Doff Regular Lower Body Clothings: A lot Help From Other: Bathing: Little Help From Other: Toileting: None Help From Other: Don/Doff Upper Body Clothings: None Help From Other: Grooming: None Help From Other: Eating Meals: Little (DHT) [facility] 6 Click - Daily Activities Score: 20/24 [facility] Scoring Interpretation: Scores greater than 20.5 suggest ability to perform daily self-cares independently and may indicate a high suitability for a home/self-care discharge. Comment: OT anticipates that patient will continue to progress well to return home with assistance when medically appropriate. Assessment Patient is now s/p right LE STSG on 08/28/2025. No formal re-assessment warranted as weight-bearingstatus remained unchanged and all goals remain appropriate within OT POC. Patient tolerated today'ssession well with rest breaks as needed and stable vitals. Good progress is being made towards OT POC goals. On this date, the patient required grossly SBA for aspects of mobility with increased time(assist for line management) and utilization of RW. Varied levels of assistance required/anticipated for presented self-cares; refer to self-care section for additional details. Patient presented with impaired occupational performances within completing BADL/IADL safely, functional transfers, functional mobility, balance, activity tolerance, and self-limiting factors including pain and fatigue impacting their current level of performance and ability to engage in occupations with full independence. Despite these impairments, patient is appropriate to return home with assistance with HH OT/PT as OT anticipates that the patient will progress well while inpatient. Patient reported having necessary assistance available as/if needed at time of d/c. While inpatient, patient would continue to benefit from skilled OT services to promote increased independence within desired occupations, return to prior level of function, decrease caregiver stress, reduce risk of falls/potential readmission, and to promote a safe discharge when medically appropriate. OT Recommendations Discharge Destination: Home with assistance, Home health OT, Home health PT Discharge Equipment: Rolling walker Plan Continue with established OT plan of care 2-5/wk to progress towards OT POC goals. Goals OT GOAL DETAILS Goal Established Date Time Frame Goal Status OT Goal 1: Patient/Family will be independent in bilateral upper extremity home exercise program topromote increased activity tolerance required for engagement in higher level self-cares/mobility. 08/22/25 2 weeks OT Goal 2: Patient will complete 2-step grooming routine in standing position with modified independence (AE as needed). 08/22/25 2 weeks OT Goal 3: Patient will complete total body dressing (including CAM boot) with modified independence (AE as needed). 08/22/25 2 weeks OT Goal 4: Patient will complete toileting routine (navigation < > bathroom, transfer < > standard toilet, manage clothing, and complete nini-care hygiene) with modified independence (AE as needed). 08/22/25 2 weeks Written by Nicole Rodriguez on 08/29/25 at 9:56 AM. * Progress Notes - Nikhil Toure - 08/29/2025 8:15 AM EDT PHYSICAL THERAPY TREATMENT PATIENT DATA Patient Name Saravanan Perez Session Date 08/29/2025 Total Treatment Time 30 min PT Discharge Recommendations Home with 24 hour assistance, Home health PT, Home health OT PT Equipment Recommendations Rolling walker PRECAUTIONS Weight Bearing Precautions (if applicable) Right Lower Extremity Weight Bearing Status: Weight Bearing as Tolerated (with CAM boot for ambulation; on AAT - okay to remove for skin inspection, hygiene, and dressing changes per medical TEAM) ROM Restrictions (if applicable) Medical Precautions Yes Medical Precautions: Fall precautions HOME LIVING/SET-UP Lives With Spouse Home Type Mobile home (Double-Wide) Home Equipment Cane, Crutches Home Layout Stairs to enter without rails, One level 3 Bathroom Layout Walk-in shower Standard Accessible via walker Additional Comments Patient endorsed that between spouse and additional family members he could have 24/7-hour assistance as/if needed. Patient's sister is a RN at (peds ED) PRIOR LEVEL OF FUNCTION Receives help from No assist required prior to admission Level of Mobility Ambulatory- community Mobility [place] Independent gait without device History of Falls No ADL Performance ADL Performance: Independent PRESENTATION Oxygen Oxygen Therapy: None (Room air) O2 Delivery Method: Humidified trach collar FiO2 (%): 21 % O2 Flow Rate (L/min): 5 L/min Lines and Tubes Surgical Airway Shiley Cuffed 6 (Active) Feeding Tube Left nare (Active) Negative Pressure Wound Therapy Leg Anterior;Lower;Right (Active) Peripheral IV 08/19/25 Right Antecubital (Active) Peripheral IV 08/19/25 Left Hand (Active) Pre-Session Supine, Head of bed elevated, Lines intact RN agreeable to therapy session. Right LE CAM boot donned. Post-Session Sitting in chair, Chair alarm, Lines intact, Call light in reach, RN notified Patient positioned for comfort/pressure relief with pillow supports and all needs in reach. Right LE CAM boot remained donned. Bracing (if applicable) Orthoses: CAM boot - right SUBJECTIVE PARTICIPANTS IN CARE Visitors Present Yes, Other (Specify) (Sister) Subjective Report Pt has NOT been: * Ambulating hallway distances since last PT treatment. Pt HAS been: * Ambulating in-room distances * Transferring Bed <> Chair since last PT treatment. Pt remains unaware when pt may be discharged from [facility]. Academic Associate (if applicable) Not Applicable OBJECTIVE & INTERVENTIONS PAIN Pain Intensity / Location Pre-Mobility: right LE 6/10 Pain Intensity / Location Post-Mobility: right LE 8/10 Prior to PT's departure: * rest was provided * pt was positioned for comfort * pillow support was provided * RN was informed of pt's pain DELIRIUM SCREENING RASS: Alert and calm Feature 1: Acute Onset or Fluctuating Course: Negative Feature 3: Altered Level of Consciousness: Negative Overall CAM-ICU/PCAM-ICU: Negative THERAPEUTIC ACTIVITY Treatment Minutes 20 BED MOBILITY Level of [place] Physical/Non- physical Assist Adaptive Equipment Utilized Rolling/ Turning Scooting/ Bridging Stand-by assist Set-up required, Supervision, Verbal Cues Supine to Sit Stand-by assist Set-up required, Supervision, Verbal Cues, Minimal cues, HOB elevated Sit to Supine Interventions TRANSFERS Level of [place] Physical/Non- physical Assist Adaptive Equipment Utilized Sit to Stand Stand-by assist Set-up required, Supervision, Verbal Cues, Minimal cues Walker, rolling Stand to sit Stand-by assist Supervision, Verbal Cues, Minimal cues Walker, rolling Bed to Chair Toilet Transfer Shower Transfer Interventions AMBULATION Level of [place] Distance Adaptive Equipment Utilized Ambulation Standby assist, Minimal verbal cues 130' x 2 with seated rest break between each distance Rolling walker Comments Cues for safety awareness. [employer] presence was necessary for: * managing lines * progressing patient ambulation distances * monitoring patient vital sign stability * decreasing patient's risk of falling while progressing pt's distances THERAPEUTIC EXERCISE Treatment Minutes 10 In Sitting - Supported position, pt performed x10 reps of the following exercises bilaterally: * Glut Sets x2-3 sec holds * Marching * Hip Abduction-Adductions * Long Arc Quads * Ankle Pumps Verbal cuing and assistance was required for proper technique and for maximizing muscle contractibility and strength. Pt was provided the rationale for performing exercise program 2-3x daily, a written HEP was provided for improved pt recall of PT-prescribed HEP, and pt was provided the opportunity to review the written HEP and ask questions. ASSESSMENT Pt is improving, as noted by: less assistance was required for pt to complete some or all transfers, pt demonstrated improved sitting and/or standing balance, and pt ambulated increased walking distances and with less assistance during this PT treatment compared to last PT treatment. Pt has the following impairments: impaired activity tolerance and pain, which is limiting the pt from performing independent functional mobility. PT RECOMMENDATIONS Discharge Destination Home with 24 hour assistance, Home health PT, Home health OT Discharge Equipment Rolling walker PLAN Pt may continue to benefit from skilled PT for addressing patient's impairments and reducing patient's participation restrictions and activity limitations. PT GOALS PT GOAL DETAILS DATE ASSESSED STATUS PROGRESS PT Goal 1: Patient will be Modified Independent with bed mobility to ease caregiver burden. PT Goal 1 Established Date: 08/22/25 PT Goal 1 Time Frame: 2 weeks PT Goal 2: Patient will transfer sit < > stand with Modified Independent with RW to ease caregiver burden. PT Goal 2 Established Date: 08/22/25 PT Goal 2 Time Frame: 2 weeks PT Goal 3: Patient will ambulate 150' with RW CGA for household distances with CAM boot on RLE. PT Goal 3 Established Date: 08/22/25 PT Goal 3 Time Frame: 2 weeks PT Goal 4: Patient will ascend/descend 3 stairs with Min A to access home. PT Goal 4 Established Date: 08/22/25 PT Goal 4 Time Frame: 2 weeks Written by Nikhil Toure on 08/29/25 at 1:27 PM. * Progress Notes - Roma Rolon MD - 08/29/2025 7:18 AM EDT Plastic Surgery Progress Note Subjective: Patient seen and examined at bedside this AM. Discussed STSG from yesterday went well. Pain well-controlled, but reports discomfort at STSG donor site. Review of Systems: Review of Systems Constitutional: Negative. HENT: Negative. Respiratory: Negative. Cardiovascular: Negative. Gastrointestinal: Negative. Endocrine: Negative. Genitourinary: Negative. Musculoskeletal: Negative. Skin: Negative. Allergic/Immunologic: Negative. Neurological: Negative. Hematological: Negative. Psychiatric/Behavioral: Negative. Objective: Vitals: 08/29/25 0415 BP: 111/66 Pulse: 72 Resp: 18 Temp: 36.4 ??C (97.5 ??F) SpO2: 98% Current Scheduled Medications[1] Current Continuous Medications[2] Current PRN Medications[3] Labs in last 18 hours CBC WBC 11.08 (H) Hb 9.6 (L) Plt 547 (H) Hct 29.0 (L) BMP Na 138 Cl 100 BUN 19 Glu 110 (H) K 3.8 Co2 25 Cr 0.72 Ca 9.0 iCa ?? Mg 2.2, Phos 4.1 Physical Exam: Physical Exam HENT: Mouth/Throat: Mouth: Mucous membranes are moist. Comments: Flap pink, well-perfused, dopperable signal Neck: Comments: Neck soft, incision C/D/I with Nylons in place Cardiovascular: Pulses: Normal pulses. Pulmonary: Effort: Pulmonary effort is normal. Comments: On trach collar Abdominal: Palpations: Abdomen is soft. Musculoskeletal: Comments: RLE cam boot in place, fires EHL/FHL Right thigh STSG donor site dressing in place, no saturation present Skin: General: Skin is warm. Capillary Refill: Capillary refill takes less than 2 seconds. Neurological: General: No focal deficit present. Mental Status: He is alert. Psychiatric: Mood and Affect: Mood normal. Assessment/Plan: Carlito Perez is a 54 y.o. 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 He is now s/pSTSG to the right leg on 08/28/25. He will keep his WV in place over the right leg until follow up on 09/04/25. - Okay for OOBTC - CAM boot at all times, WBAT RLE - ASA 324 mg for 1 month - Recommend 5 days antibiotics postoperatively, completed - Continue tube feeds at goal, paused for OR - OMFS managing trach - SQH and SCDs for DVT ppx - Plastic Surgery will continue to follow S. Thom Rolon MD Plastic and Reconstructive Surgery [1] acetaminophen, 1,000 mg, Nasogastric, q6h JOVANNI aspirin, 324 mg, Nasogastric, Daily atorvastatin, 20 mg, Nasogastric, Daily bacitracin, 1 Jar, Topical, Daily esomeprazole, 40 mg, Nasogastric, Daily gabapentin, 300 mg, Nasogastric, TID heparin (porcine), 5,000 Units, Subcutaneous, q8h JOVANNI lactobacillus acidophilus, 1 tablet, Nasogastric, BID levothyroxine, 50 mcg, Nasogastric, q AM lidocaine-EPINEPHrine, 10 mL, Infiltration, Once melatonin, 6 mg, Nasogastric, Nightly metoprolol tartrate, 12.5 mg, Nasogastric, BID polyethylene glycol, 17 g, Nasogastric, BID senna, 8.6 mg, Nasogastric, BID sodium chloride, 3 mL, Nebulization, BID [2] [3] PRN medications: bisacodyl, magnesium hydroxide, [DISCONTINUED] ondansetron ODT OR ondansetron OR ondansetron, oxyCODONE OR oxyCODONE Cosigned by Marvin Santana MD at 08/29/2025 7:32 AM EDT Associated attestation - Marvin Santana MD - 08/29/2025 7:32 AM EDT I discussed the case with the resident/fellow and agree with the findings and plan as documented. Will plan for wound vac take down to donor site STSG next week in clinic. * Hospital Course - Rusty Melendrez DDS - 08/29/2025 6:56 AM EDT Carlito Perez is a 54 y.o. male who presented to on 08/19/25 with Floor of mouth squamouscell carcinoma. He was taken to the operating room for 1) Left segmental mandibulectomy, left selective neck dissection, extraction of all remaining teeth, partial left glossectomy, tracheostomy creation with OMFS on 08/19/25, 2) Fibula free flap reconstruction with Plastic surgery on 08/19/25, and 3) STSG to RLE on 08/29/25. The patient tolerated the procedure well and was subsequently extubated and transferred to the PACU for recovery. After recovery, the patient was transferred to the floor. He did well postoperatively, with pain well managed and tolerated advancements in diet. At the time of discharge, patient was HDS, afebrile, tolerating TF, ambulating, and voiding spontaneously. He wasappropriate for discharge on 08/29/25 to Home. He will return to clinic with Dr. Adrian on 09/06/25 at [facility] for follow-up. * Progress Notes - Rusty Melendrez DDS - 08/29/2025 5:37 AM EDT Images from the original note were not included. Oral & Maxillofacial Surgery Progress Note 08/29/25 Carlito Lepe [facility] Day: 11 Subjective HISTORY OF PRESENT ILLNESS Carlito Perez is a 54 y.o. 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 Procedure(s): 1) Left segmental mandibulectomy, left selective neck dissection, extraction of all remaining teeth, partial left glossectomy, tracheostomy creation with OMFS on 08/19/2025 2) Fibula free flap reconstruction with Plastic surgery on 08/19/2025 3) STSG to RLE on 08/29/25 24 hr interval events : to OR for STSG, postoperative pain controlled, restarted and tolerated TF, 3x unmeasured voids, 1x BM, suction x2, inner canula changed x2 by RT, NAEO. Edited by: Rusty Melendrez DDS at 08/29/2025 0507 Objective Last Recorded Vitals Temp: [36.3 ??C (97.4 ??F)-36.8 ??C (98.2 ??F)] 36.4 ??C (97.5 ??F) Heart Rate: [68-90] 72 Resp: [10-18] 18 BP: (102-142)/(63-83) 111/66 FiO2 (%): [28 %] 28 % Temp (24hrs), Av.6 ??C (97.8 ??F), Min:36.3 ??C (97.4 ??F), Max:36.8 ??C (98.2 ??F) Wt Readings from Last 1 Encounters: 08/26/25 88.7 kg (195 lb 8.8 oz) PHYSICAL EXAMINATION GEN: NAD, resting comfortably. HEENT: Neck: soft, supple, minimally TTP. No fluctuant swellings noted. No evidence of hematoma. CHULA drain secured in place, holding sanguinous suction. 6-0 cuffed shiley trach secured in place with silk sutures. Nose: NG DHT in place. Intraoral: flap soft, warm, appropriate turgor, well-perfused, capillary refill <1 sec, hemostatic. CVS: Regular Rate, well perfused Pulm: Non-labored breathing on HTC 6-0 cuffed shiley trach secured in place with silk sutures. Neuro: 11T; Left CN V3 anesthetic. Otherwise, CN II-IV, , VIII-XII grossly intact. MSK: Elevated RLE with CAM boot in place; Right thigh with Mepilex dressing in place, hemostatic; Mild, soft edema noted with TTP; WV holding suction. DP and TP pulses palpable. Psych: Appropriate for situation, pleasant. I/O: Intake/Output Summary (Last 24 hours) at 08/29/2025 0537 Last data filed at 08/29/2025 0400 Gross per 24 hour Intake 1270 ml Output 10 ml Net 1260 ml LABORATORY CBC WBC 11.08 (H) Hb 9.6 (L) Plt 547 (H) Hct 29.0 (L) ANC ?? INR ??, PTT ??, Anti-Xa ?? BMP Na 138 Cl 100 BUN 19 Glu 110 (H) K 3.8 Co2 25 Cr 0.72 Ca 9.0 iCa ?? Mg 2.2, Phos 4.1 MICROBIOLOGY Results Procedure Component Value Units Date/Time Cecelia auris Surveillance by PCR [[id number]] (Normal) Collected: 08/19/252018 Order Status: Completed Specimen: Swab from Axilla and Groin Updated: 08/21/25 1033 Cecelia auris PCR Result Not Detected Narrative: This PCR assay was developed and its performance characteristics determined by [facility] as appropriate for clinical purposes. This assay has not been cleared or approved bythe FDA, but is performed in a CLIA regulated laboratory that is qualified to perform high-complexity testing. Multi Drug Resistance Test [[id number]] Collected: 08/19/252018 Order Status: Completed Specimen: Swab from Nares and Nini Rectal Updated: 08/21/25 0733 Culture No growth at day 1 Narrative: This test was developed and its performance characteristics determined by the [facility]. Although the media is FDA-approved, it is not FDA-approved for all specimen types submitted. The FDA has determined that such clearance or approval is not necessary. This test is used for surveillance purposes. It should not be regarded as investigational or for research. The [facility] is certified under the ClinicalLaboratory Improvement Amendments of 1988 (CLIA-88) as qualified to perform high complexity clinical laboratory testing. IMAGING No new imaging Assessment/Plan Carlito Perez is a 54 y.o. male who is hospitalized for Floor of mouth squamous cell carcinoma s/p left segmental mandibulectomy, left selective neck dissection, extraction of all remaining teeth, partial left glossectomy, tracheostomy, fibula free flap reconstruction on 08/19/2025, and STSG from right thigh to RLE on 08/28/25. Patient is progressing as expected post-operatively. #Left lateral Tongue and Floor of the mouth SCCa -s/p aforementioned procedures #Fibula Free Flap Reconstruction -Nothing around the neck -Unasyn DC -HOB elevated 30 degrees -Continue ASA for 30 days (DC 09/19/2025) and heparin -Continue ondansetron PRN for PONV prophylaxis -Continue esomeprazole -Continue Flap checks per plastic surgery -PTOT eval; appreciate recs -OOBTC 2x per day -CAM boot in place at all times -WBAT #Dysphagia -Continue NPO -Continue TF -Isosource 1.5 291 mL bolus with 90 FW flush q4h #Trach Dependent -Continue trach care -6-0 cuffed shiley -Tolerated deflation -Downsize to 6-0 cuffless shiley 08/29/2025 #Post operative Pain control -acetaminophen q6h -gabapentin 3 times per day -oxycodone panel q4h PRN #Post operative constipation -Continue polyethylene glycol -Continue Senna -Continue to monitor -added Milk of Mag PRN -added suppository PRN #Hypothyroidism -Restarted home levothyroxine #GERD - Started on famotidine #CAD -Restarted home metoprolol #HTN -Continue to monitor #HLD -Restated home atorvastain #GAURANG Dispo: Continue Current Level of Care - Plan of care discussed with patient at bedside Rusty Melendrez DDS [facility] OMFS, PGY-1 Cosigned by Alvaro Adrian DMD, MD at 08/29/2025 2:20 PM EDT Associated attestation - Alvaro Adrian DMD, MD - 08/29/2025 2:20 PM EDT I agree with the residents documentation, assessment and plan. Alvaro Adrian DMD, MD * Care Plan - Carly Perez - 08/29/2025 4:21 AM EDT Problem: Adult Inpatient Plan of Care Goal: Plan of Care Review Outcome: Ongoing, Progressing Flowsheets Taken 08/29/2025 0419 by Carly Perez Plan of Care Reviewed With: patient Taken 08/28/2025 0940 by Marily Owens, RN Progress: improving Taken 08/24/20252003 by Shania Perez Outcome Evaluation: patient awake alert and oriented ambulating in room to restroom Goal: Patient-Specific Goal (Individualized) Outcome: Ongoing, Progressing Flowsheets (Taken 08/28/20251999) Patient/Family-Specific Goals (Include Timeframe): pt will have adequate pain control this shift Individualized Care Needs: pain Anxieties, Fears or Concerns: none Goal: Absence of Hospital-Acquired Illness or Injury Outcome: Ongoing, Progressing Intervention: Identify and Manage Fall Risk Flowsheets (Taken 08/28/20251999) Safety Promotion/Fall Prevention: activity supervised assistive device/personal items within reach fall prevention program maintained clutter-free environment maintained mobility aid in [facility] nonskid shoes/slippers when out of bed room organization consistent safety round/check completed toileting scheduled lighting adjusted Intervention: Prevent Skin Injury Flowsheets Taken 08/29/2025 0419 by Carly Perez Body Position: weight shifting Taken 08/27/2025 1016 by Don Dolan, RN Skin Protection: incontinence pads utilized pulse oximeter probe site changed skin sealant/moisture barrier applied Intervention: Prevent and Manage VTE (Venous Thromboembolism) Risk Flowsheets (Taken 08/29/2025 041) VTE Prevention/Management: left SCDs (sequential compression devices) on Intervention: Prevent Infection Flowsheets (Taken 08/27/2025 1016 by Don Dolan, RN) Infection Prevention: hand hygiene promoted environmental surveillance performed personal protective equipment utilized Goal: Optimal Comfort and Wellbeing Outcome: Ongoing, Progressing Problem: Pain Acute Goal: Optimal Pain Control and Function Outcome: Ongoing, Progressing Intervention: Develop Pain Management Plan Flowsheets (Taken 08/29/2025 0230) Pain Management Interventions: medication (see MAR) pain management plan reviewed with patient/caregiver Intervention: Prevent or Manage Pain Flowsheets (Taken 08/27/2025 1016 by Don Dolan, RN) Sensory Stimulation Regulation: television on Bowel Elimination Promotion: ambulation promoted privacy promoted Sleep/Rest Enhancement: consistent schedule promoted natural light exposure provided Medication Review/Management: medications reviewed Problem: Surgery Nonspecified Goal: Absence of Bleeding Outcome: Ongoing, Progressing Intervention: Monitor and Manage Bleeding Flowsheets (Taken 08/27/2025 1016 by Don Dolan, RN) Bleeding Management: dressing monitored Goal: Effective Bowel Elimination Outcome: Ongoing, Progressing Goal: Fluid and Electrolyte Balance Outcome: Ongoing, Progressing Goal: Absence of Infection Signs and Symptoms Outcome: Ongoing, Progressing Intervention: Prevent or Manage Infection Flowsheets Taken 08/29/2025 0419 by Carly Perez Isolation Precautions: precautions maintained Taken 08/27/2025 1016 by Don Dolan, RN Fever Reduction/Comfort Measures: lightweight bedding lightweight clothing Taken 08/27/2025 0401 by Yessi Campbell RN Infection Management: aseptic technique maintained Goal: Optimal Pain Control and Function Outcome: Ongoing, Progressing Intervention: Prevent or Manage Pain Flowsheets Taken 08/29/2025 0230 by Carly Perez Pain Management Interventions: medication (see MAR) pain management plan reviewed with patient/caregiver Taken 08/27/2025 1016 by Don Dolan, RN Diversional Activities: smartphone television Goal: Effective Oxygenation and Ventilation Outcome: Ongoing, Progressing Intervention: Optimize Oxygenation and Ventilation Flowsheets Taken 08/29/2025 0000 by Carly Perez Activity Management: activity adjusted per tolerance Head of Bed (HOB) Positioning: HOB elevated Cough And Deep Breathing: done independently per patient Taken 08/27/2025 1016 by Don Dolan, RN Airway/Ventilation Management: airway patency maintained humidification applied position adjusted Problem: Infection Goal: Absence of Infection Signs and Symptoms Outcome: Ongoing, Progressing Problem: Skin Injury Risk Increased Goal: Skin Health and Integrity Outcome: Ongoing, Progressing Intervention: Optimize Skin Protection Flowsheets Taken 08/29/2025 0000 by Carly Perez Activity Management: activity adjusted per tolerance Head of Bed (HOB) Positioning: HOB elevated Taken 08/27/2025 1016 by Don Dolan, RN Pressure Reduction Techniques: frequent weight shift encouraged weight shift assistance provided heels elevated off bed Pressure Reduction Devices: foam padding utilized positioning supports utilized Intervention: Promote and Optimize Oral Intake Flowsheets (Taken 08/27/2025 1016 by Don Dolan, RN) Oral Nutrition Promotion: physical activity promoted Nutrition Interventions: diet adjusted Problem: Fall Injury Risk Goal: Absence of Fall and Fall-Related Injury Outcome: Ongoing, Progressing Intervention: Identify and Manage Contributors Flowsheets (Taken 08/27/2025 1016 by Don Dolan, RN) Medication Review/Management: medications reviewed Self-Care Promotion: independence encouraged BADL personal objects within reach Intervention: Promote Injury-Free Environment Flowsheets (Taken 08/28/20251999) Safety Promotion/Fall Prevention: activity supervised assistive device/personal items within reach fall prevention program maintained clutter-free environment maintained mobility aid in reach nonskid shoes/slippers when out of bed room organization consistent safety round/check completed toileting scheduled lighting adjusted Problem: Artificial Airway Goal: Effective Communication Outcome: Ongoing, Progressing Intervention: Ensure Effective Communication Flowsheets Taken 08/27/2025 1016 by Don Dolan RN Diversional Activities: smartphone television Family/Support System Care: involvement promoted Communication Enhancement Strategies: call light answered in person communication board used communication device used device use encouraged Taken 08/27/2025 0401 by Yessi Campbell RN Trust Relationship/Rapport: care explained choices provided emotional support provided empathic listening provided questions answered questions encouraged thoughts/feelings acknowledged * Significant Event - Galina Renteria MD - 08/28/2025 9:37 PM EDT [facility] Department of Surgery Division of Plastic and Reconstruction Surgery Post Operative Check: Subjective: Procedure: s/p split thickness skin flap and fibula macarena flap Patient currently reports doing well. No pain. Tolerating PO and has no other conerns Objective: Vitals: Visit Vitals BP 126/75 Pulse 90 Temp 36.6 ??C (97.9 ??F) Resp 18 IN/Out: Intake/Output Summary (Last 24 hours) at 08/28/20257 Last data filed at 08/28/2025 2100 Gross per 24 hour Intake 590 ml Output 10 ml Net 580 ml Neck: flat, no hematoma, incision hemostatic, well approximated. Trach in place, trach collar Oral: flap warm, pink sutures intact, hemostatic doppler signal biphasic Leg: boot in place, dressing with minimal strikethrough. Wound vac in place Labs: WBC 10.56 (H) Hgb 9.5 (L) PLT 552 (H) HCT 28.8 (L) INR ?? PTT ?? antiXa ?? Na 136 Cl 99 BUN 18 Gluc 101 (H) K 4.2 CO2 28 Creat 0.62 (L) Ca 9.3 iCa ?? Mg 2.2 Phos 4.3 pH ?? pCO2 ?? pO2 ?? SPO2 ?? FIO2 ?? HCO3 ?? BE ?? Lactate ?? Assessment and Plan: POD s/p split thickness skin graft to fibula donor site and POD9 fibula free flap. Doing well from procedure today. Flap is viable, doppler signal is strong. Diet Status: NPO and TF Pain management: 11/23 Level of care: Continue Current Level of Care I have answered and addressed all issues and concerns from the patient and nursing staff. I have notified senior resident/attending application analyst with any issues or concerns. * Anesthesia PACU Signout - Edwin Palomares DO - 08/28/2025 8:06 PM EDT Patient: Saravanan Perez Anesthesia Type: general Vitals Value Taken Time BP 129/85 08/28/25 18:30 Temp 36.8 ??C (98.2 ??F) 08/28/25 18:15 Pulse 74 08/28/25 18:38 Resp 13 08/28/25 18:38 SpO2 95 % 08/28/25 18:38 Vitals shown include unfiled device data. Anesthesia PACU Signout Patient location during evaluation: PACU Patient participation: complete - patient participated Level of consciousness: baseline and awake Pain management: adequate (pain score 0-3) Airway patency: natural airway Hydration status: acceptable PONV: none Cardiovascular status: acceptable and hemodynamically stable Respiratory status: acceptable, spontaneous ventilation, unassisted and nonlabored ventilation Discharge Disposition: admit to inpatient unit Cosigned by Kenia Herrera MD at 08/30/2025 2:38 AM EDT Associated attestation - Kenia Herrera MD - 08/30/2025 2:38 AM EDT I agree with the findings and plan as documented. 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 Right lower extremity donor site wound Post-op Diagnosis Floor of mouth squamous cell carcinoma Right lower extremity donor site wound Procedure(s): Right lower extremity donor site wound irrigation and debridement Split thickness skin grafting to the right lower extremity wound 10 cm x 20 cm from the right thigh Attending Surgeon(s): * Marvin Santana - Primary Beater Engineer Helper(s): * Roma Rolon MD - Resident - Assisting Anesthesia: General ASA: III Blood Administration: Blood Product Administration History None Estimated Blood Loss: Minimal Drains: Closed/Suction Drain Anterior;Right Neck Bulb 15 Fr. (Active) Site Description Clean;Dry 08/28/25 1200 Dressing Status Open to air 08/28/25 1200 Drainage Appearance Serosanguineous 08/28/25 1200 Status To bulb suction 08/28/25 1200 Sutures Removed Intact Yes 08/26/25 0800 Output (mL) 10 mL 08/28/25 0600 Specimen: None Findings: Right lower extremity donor site wound, well granulated, approximately 10 cm x 20 cm without exposed tendon/nerve Right thigh split thickness skin graft harvested at 15 thousandths of an inch Wound vac applied to right lower extremity wound with silver sponge Indications: Saravanan Perez is an 54 y.o. male who is now status post right lower extremity free fibula osteocutaneous flap reconstruction of the oral mandibular defect after tumor resection approximately 1 week ago. He has been undergoing wound VAC therapy to his right lower extremity donor site wound for the past week. We discussed returned to the operating room for split-thickness skin grafting to the right lower extremity defect. After discussion of risks, benefits, alternatives the patient was amenable. Narrative: The patient was identified in the preoperative holding area by his name, date of , procedure site type. Operative consent was obtained after discussion of the risks and benefits of operative intervention. The patient was taken to the operating room and laid in the supine position the operatingroom table. Anesthesia induced sedation and ventilator the patient via the tracheostomy. This time,the right lower extremity was prepped and draped in a sterile fashion. Preoperative time-out was conducted with the patient's name, date of , procedure site type were confirmed by all. We 1st turned our attention to the right lower extremity wound which measured approximately 10 cm x 20 cm. Copious irrigation was applied to the wound and blood debridement was performed. The wound exhibited adequate granulation tissue with bleeding. This time, with a dermatome set to 15 thousands of an inchsplit-thickness skin graft was harvested from the right thigh. The skin graft was meshed at 1 and applied to the right lower extremity donor site defect. It was secured with chromic sutures an Adaptic and a silver wound VAC sponge were applied. Adequate seal and suction were exhibited following application. The right thigh donor site was treated with epinephrine soaked Telfa. Following this, 0.25% Marcaine 1 100,000 with epinephrine was injected into the donor site of the skin graft on the right thigh. Following this a Xeroform was secured to the donor site with 4-0 chromic suture. Telfa Kerlix Av were then applied to the wound. Following this the patient was placed in his cam boot. Anesthesia awoke the patient. All sponge, needle, lap counts were correct at the end the case. The patientwas transported to the PACU. I was present for all aspects of the procedure. There were NO signs of surgical site infection (SSI) present at the time of surgery (PATOS). Complications: None; patient tolerated the procedure well. Submitted by: Marvin Santana MD - 08/28/2025 * Clinician Note - Nicole Rodriguez - 08/28/2025 3:03 PM EDT Occupational Therapy Attempt Patient Name: Saravanan Perez Today's Date: 08/28/2025 Patient was attempted to be seen by occupational therapy 08/28/2025 for OT Treatment however patient not appropriate due to medical status (patient to OR today for STSG per chart review). Occupational therapy team will follow-up when medically appropriate (post-op and as schedule permits). Written by Nicole Rodriguez on 08/28/25 at 3:03 PM. * Clinician Note - Coretta Heard I - 08/28/2025 2:43 PM EDT Physical Therapy Attempt Patient Name: Saravanan Perez Today's Date: 08/28/2025 Patient was attempted to be seen by physical therapy 08/28/2025 for PT Treatment however patient not appropriate due to medical status (Patient to OR today for STSG per chart review). Physical therapy team will follow-up when medically appropriate. Written by Coretta Heard on 08/28/25 at 2:43 PM. * Progress Notes - Marcelino Laurent, DMD - 08/28/2025 9:47 AM EDT Images from the original note were not included. Oral & Maxillofacial Surgery Progress Note 08/28/2025 Carlito Perez [facility] Day: 11 Subjective HISTORY OF PRESENT ILLNESS Carlito Perez is a 54 y.o. 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 Procedure(s): 1) Left segmental mandibulectomy, left selective neck dissection, extraction of all remaining teeth, partial left glossectomy, tracheostomy creation with OMFS on 08/19/2025 2) Fibula free flap reconstruction with Plastic surgery on 08/19/2025 3) STSG to RLE on 08/29/25 24 hr interval events : to OR for STSG, postoperative pain controlled, restarted and tolerated TF, 3x unmeasured voids, 1x BM, suction x2, inner canula changed x2 by RT, NAEO. Edited by: Rusty Melendrez, MARK at 08/29/2025 0507 Objective Last Recorded Vitals Temp: [36.3 ??C (97.4 ??F)-36.8 ??C (98.2 ??F)] 36.4 ??C (97.5 ??F) Heart Rate: [68-90] 72 Resp: [10-18] 18 BP: (102-142)/(63-83) 111/66 FiO2 (%): [28 %] 28 % Temp (24hrs), Av.6 ??C (97.8 ??F), Min:36.3 ??C (97.4 ??F), Max:36.8 ??C (98.2 ??F) Wt Readings from Last 1 Encounters: 10/13/25 88.7 kg (195 lb 8.8 oz) PHYSICAL EXAMINATION GEN: NAD, resting comfortably. HEENT: Neck: soft, supple, minimally TTP. No fluctuant swellings noted. No evidence of hematoma. CHULA drain secured in place, holding sanguinous suction. 6-0 cuffed shiley trach secured in place with silk sutures. Nose: NG DHT in place. Intraoral: flap soft, warm, appropriate turgor, well-perfused, capillary refill <1 sec, hemostatic. CVS: Regular Rate, well perfused Pulm: Non-labored breathing on HTC 6-0 cuffed shiley trach secured in place with silk sutures. Neuro: 11T; Left CN V3 anesthetic. Otherwise, CN II-IV, , VIII-XII grossly intact. MSK: Elevated RLE with CAM boot in place; Mild, soft edema noted with TTP; WV holding suction. DP and TP pulses palpable. Psych: Appropriate for situation, pleasant. I/O: Intake/Output Summary (Last 24 hours) at 08/29/2025 0539 Last data filed at 08/29/2025 0400 Gross per 24 hour Intake 1270 ml Output 10 ml Net 1260 ml LABORATORY CBC WBC 11.08 (H) Hb 9.6 (L) Plt 547 (H) Hct 29.0 (L) ANC ?? INR ??, PTT ??, Anti-Xa ?? BMP Na 138 Cl 100 BUN 19 Glu 110 (H) K 3.8 Co2 25 Cr 0.72 Ca 9.0 iCa ?? Mg 2.2, Phos 4.1 MICROBIOLOGY Results Procedure Component Value Units Date/Time Cecelia auris Surveillance by PCR [[id number]] (Normal) Collected: 08/19/252018 Order Status: Completed Specimen: Swab from Axilla and Groin Updated: 08/21/25 1033 Cecelia auris PCR Result Not Detected Narrative: This PCR assay was developed and its performance characteristics determined by [facility] as appropriate for clinical purposes. This assay has not been cleared or approved bythe FDA, but is performed in a CLIA regulated laboratory that is qualified to perform high-complexity testing. Multi Drug Resistance Test [[id number]] Collected: 08/19/252018 Order Status: Completed Specimen: Swab from Nares and Nini Rectal Updated: 08/21/25 0733 Culture No growth at day 1 Narrative: This test was developed and its performance characteristics determined by the [facility]. Although the media is FDA-approved, it is not FDA-approved for all specimen types submitted. The FDA has determined that such clearance or approval is not necessary. This test is used for surveillance purposes. It should not be regarded as investigational or for research. The [facility] is certified under the ClinicalLaboratory Improvement Amendments of 1988 (CLIA-88) as qualified to perform high complexity clinical laboratory testing. IMAGING No new imaging Assessment/Plan Carlito Perez is a 54 y.o. 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 #Left lateral Tongue and Floor of the mouth SCCa -s/p aforementioned procedures #Fibula Free Flap Reconstruction -Nothing around the neck -Unasyn DC -HOB elevated 30 degrees -Continue ASA for 30 days (DC 09/19/2025) and heparin -Continue ondansetron PRN for PONV prophylaxis -Continue esomeprazole -Continue Flap checks per plastic surgery -PTOT eval; appreciate recs -OOBTC 2x per day -CAM boot in place at all times -WBAT -Wound vac removal planned for 08/26/2025 -Skin graft planned for next week, date 08/28/2025 -Contact CM to ensure [place] supplies #Dysphagia -Continue NPO -Continue TF -Isosource 1.5 291 mL bolus with 90 FW flush q4h -Reach out to CM to make sure tube feeds are ordered #Trach Dependent -Continue trach care -6-0 cuffed shiley -Tolerated deflation -downsize after 2nd procedure with PRS -Downsize to 6-0 chuffless shiley 08/29/2025 #Post operative Pain control -acetaminophen q6h -gabapentin 3 times per day -oxycodone panel q4h PRN #Post operative constipation -Continue polyethylene glycol -Continue Senna -Continue to monitor -added Milk of Mag PRN -added suppository PRN #Postoperative Urine Retention - Gr removed on 08/23/2025 - Able to void post removal #Hypothyroidism -Restarted home levothyroxine #GERD - Started on famotidine #CAD -Restarted home metoprolol #HTN -Continue to monitor #HLD -Restated home atorvastain #GAURANG Dispo: Continue Current Level of Care - Plan of care discussed with patient at bedside Marcelino Laurent DMD [facility] oil pit attendant PGY-1 Pager #: [phone] Cosigned by Alvaro Adrian DMD, MD at 08/29/2025 2:20 PM EDT Associated attestation - Alvaro Adrian DMD, MD - 08/29/2025 2:20 PM EDT I agree with the residents documentation, assessment and plan. Alvaro Adrian DMD, MD * Progress Notes - Roma Rolon MD - 08/28/2025 8:33 AM EDT Plastic Surgery Progress Note Subjective: Patient seen and examined at bedside this AM. Patient reports one small bowel movement since surgery. Passing gas. Voiding. Tube feeds stopped overnight. Review of Systems: Review of Systems Constitutional: Negative. HENT: Negative. Respiratory: Negative. Cardiovascular: Negative. Gastrointestinal: Negative. Endocrine: Negative. Genitourinary: Negative. Musculoskeletal: Negative. Skin: Negative. Allergic/Immunologic: Negative. Neurological: Negative. Hematological: Negative. Psychiatric/Behavioral: Negative. Objective: Vitals: 08/28/25 0353 BP: 122/68 Pulse: 75 Resp: Temp: 36.4 ??C (97.6 ??F) SpO2: 95% Current Scheduled Medications[1] Current Continuous Medications[2] Current PRN Medications[3] Labs in last 18 hours CBC WBC 10.56 (H) Hb 9.5 (L) Plt 552 (H) Hct 28.8 (L) BMP Na 136 Cl 99 BUN 18 Glu 101 (H) K 4.2 Co2 28 Cr 0.62 (L) Ca 9.3 iCa ?? Mg 2.2, Phos 4.3 Physical Exam: Physical Exam HENT: Mouth/Throat: Mouth: Mucous membranes are moist. Comments: Flap pink, well-perfused, dopperable signal Neck: Comments: Neck soft, incision C/D/I with Nylons in place, JPX1 SS Cardiovascular: Pulses: Normal pulses. Pulmonary: Effort: Pulmonary effort is normal. Comments: On trach collar Abdominal: Palpations: Abdomen is soft. Musculoskeletal: Comments: RLE cam boot in place, fires EHL/FHL Skin: General: Skin is warm. Capillary Refill: Capillary refill takes less than 2 seconds. Neurological: General: No focal deficit present. Mental Status: He is alert. Psychiatric: Mood and Affect: Mood normal. Assessment/Plan: Carlito Perez is a 54 y.o. 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 - Okay for OOBTC - CAM boot at all times, WBAT RLE - ASA 324 mg for 1 month - Recommend 5 days antibiotics postoperatively, completed - Continue tube feeds at goal, paused for OR - OMFS managing trach - SQH and SCDs for DVT ppx -To OR STSG 08/28, consented/marked - Plastic Surgery will continue to follow S. Thom Rolon MD Plastic and Reconstructive Surgery [1] acetaminophen, 1,000 mg, Nasogastric, q6h JOVANNI aspirin, 324 mg, Nasogastric, Daily atorvastatin, 20 mg, Nasogastric, Daily bacitracin, 1 Jar, Topical, Daily esomeprazole, 40 mg, Nasogastric, Daily gabapentin, 300 mg, Nasogastric, TID [Held by provider] heparin (porcine), 5,000 Units, Subcutaneous, q8h JOVANNI lactobacillus acidophilus, 1 tablet, Nasogastric, BID levothyroxine, 50 mcg, Nasogastric, q AM lidocaine-EPINEPHrine, 10 mL, Injection, Once melatonin, 6 mg, Nasogastric, Nightly metoprolol tartrate, 12.5 mg, Nasogastric, BID polyethylene glycol, 17 g, Nasogastric, BID senna, 8.6 mg, Nasogastric, BID sodium chloride, 3 mL, Nebulization, BID [2] [3] PRN medications: bisacodyl, magnesium hydroxide, [DISCONTINUED] ondansetron ODT OR ondansetron OR ondansetron, oxyCODONE OR oxyCODONE Cosigned by Marvin Santana MD at 08/28/2025 5:34 PM EDT Associated attestation - Marvin Santana MD - 08/28/2025 5:34 PM EDT I saw and evaluated the patient. I discussed the case with the resident/fellow and agree with the findings and plan as documented. * Care Plan - James Juan RN - 08/28/2025 6:19 AM EDT Problem: Adult Inpatient Plan of Care Goal: Plan of Care Review Outcome: Ongoing, Progressing Flowsheets Taken 08/28/2025 0618 by James Juan RN Progress: improving Taken 08/27/2025 1016 by Don Dolan RN Plan of Care Reviewed With: patient Goal: Patient-Specific Goal (Individualized) Outcome: Ongoing, Progressing Flowsheets (Taken 08/27/20251999) Patient/Family-Specific Goals (Include Timeframe): pt will report pain at a tolerable level throughout shift Individualized Care Needs: pain management Anxieties, Fears or Concerns: pain Goal: Absence of Hospital-Acquired Illness or Injury Outcome: Ongoing, Progressing Intervention: Identify and Manage Fall Risk Flowsheets (Taken 08/28/2025399) Safety Promotion/Fall Prevention: activity supervised assistive device/personal items within reach clutter-free environment maintained fall prevention program maintained lighting adjusted mobility aid in reach nonskid shoes/slippers when out of bed room organization consistent safety round/check completed Intervention: Prevent Skin Injury Flowsheets Taken 08/28/2025 0400 by James Juan RN Body Position: weight shifting Taken 08/27/2025 1016 by Don Dolan, RN Skin Protection: incontinence pads utilized pulse oximeter probe site changed skin sealant/moisture barrier applied Intervention: Prevent and Manage VTE (Venous Thromboembolism) Risk Flowsheets (Taken 08/27/20251999) VTE Prevention/Management: left SCDs (sequential compression devices) on Intervention: Prevent Infection Flowsheets (Taken 08/27/2025 1016 by Don Dolan, RN) Infection Prevention: hand hygiene promoted environmental surveillance performed personal protective equipment utilized Goal: Optimal Comfort and Wellbeing Outcome: Ongoing, Progressing Problem: Pain Acute Goal: Optimal Pain Control and Function Outcome: Ongoing, Progressing Intervention: Develop Pain Management Plan Flowsheets (Taken 08/28/2025 0618) Pain Management Interventions: pillow support provided position adjusted rest Intervention: Prevent or Manage Pain Flowsheets (Taken 08/27/2025 1016 by Don Dolan, RN) Sensory Stimulation Regulation: television on Bowel Elimination Promotion: ambulation promoted privacy promoted Medication Review/Management: medications reviewed Problem: Surgery Nonspecified Goal: Absence of Bleeding Outcome: Ongoing, Progressing Goal: Effective Bowel Elimination Outcome: Ongoing, Progressing Goal: Fluid and Electrolyte Balance Outcome: Ongoing, Progressing Goal: Absence of Infection Signs and Symptoms Outcome: Ongoing, Progressing Goal: Optimal Pain Control and Function Outcome: Ongoing, Progressing Goal: Effective Oxygenation and Ventilation Outcome: Ongoing, Progressing Problem: Infection Goal: Absence of Infection Signs and Symptoms Outcome: Ongoing, Progressing Problem: Skin Injury Risk Increased Goal: Skin Health and Integrity Outcome: Ongoing, Progressing Intervention: Optimize Skin Protection Flowsheets Taken 08/28/2025 0400 by James Juan RN Activity Management: activity adjusted per tolerance Taken 08/27/20251999 by James Juan RN Head of Bed (HOB) Positioning: HOB elevated Taken 08/27/2025 1016 by Don Dolan RN Pressure Reduction Techniques: frequent weight shift encouraged weight shift assistance provided heels elevated off bed Pressure Reduction Devices: foam padding utilized positioning supports utilized Intervention: Promote and Optimize Oral Intake Flowsheets (Taken 08/27/2025 1016 by Don Dolan, RN) Oral Nutrition Promotion: physical activity promoted Problem: Fall Injury Risk Goal: Absence of Fall and Fall-Related Injury Outcome: Ongoing, Progressing Problem: Artificial Airway Goal: Effective Communication Outcome: Ongoing, Progressing * Progress Notes - Cynthia Sands RN - 08/27/2025 10:45 AM EDT Signed wound vac forms and supporting documentation sent to Jeff via email: [email or web address]. * Care Plan - Don Dolan RN - 08/27/2025 10:24 AM EDT Problem: Adult Inpatient Plan of Care Goal: Plan of Care Review Outcome: Ongoing, Progressing Flowsheets (Taken 08/27/2025 1016) Progress: improving Plan of Care Reviewed With: patient Goal: Patient-Specific Goal (Individualized) Outcome: Ongoing, Progressing Flowsheets (Taken 08/27/2025 0800) Patient/Family-Specific Goals (Include Timeframe): pt will verbalize adequate pain control throughout the shift Individualized Care Needs: pain control Anxieties, Fears or Concerns: pain Goal: Absence of Hospital-Acquired Illness or Injury Outcome: Ongoing, Progressing Intervention: Identify and Manage Fall Risk Flowsheets (Taken 08/27/2025 1016) Safety Promotion/Fall Prevention: activity supervised assistive device/personal items within reach clutter-free environment maintained mobility aid in reach lighting adjusted fall prevention program maintained nonskid shoes/slippers when out of bed room organization consistent safety round/check completed toileting scheduled Intervention: Prevent Skin Injury Flowsheets (Taken 08/27/2025 1016) Body Position: weight shifting Skin Protection: incontinence pads utilized pulse oximeter probe site changed skin sealant/moisture barrier applied Intervention: Prevent and Manage VTE (Venous Thromboembolism) Risk Flowsheets (Taken 08/27/2025 1000) VTE Prevention/Management: bilateral left SCDs (sequential compression devices) on Intervention: Prevent Infection Flowsheets (Taken 08/27/2025 1016) Infection Prevention: hand hygiene promoted environmental surveillance performed personal protective equipment utilized Goal: Optimal Comfort and Wellbeing Outcome: Ongoing, Progressing Problem: Pain Acute Goal: Optimal Pain Control and Function Outcome: Ongoing, Progressing Intervention: Prevent or Manage Pain Flowsheets (Taken 08/27/2025 1016) Sensory Stimulation Regulation: television on Bowel Elimination Promotion: ambulation promoted privacy promoted Sleep/Rest Enhancement: consistent schedule promoted natural light exposure provided Medication Review/Management: medications reviewed Problem: Surgery Nonspecified Goal: Absence of Bleeding Outcome: Ongoing, Progressing Intervention: Monitor and Manage Bleeding Flowsheets (Taken 08/27/2025 1016) Bleeding Management: dressing monitored Goal: Effective Bowel Elimination Outcome: Ongoing, Progressing Goal: Fluid and Electrolyte Balance Outcome: Ongoing, Progressing Intervention: Monitor and Manage Fluid and Electrolyte Balance Flowsheets (Taken 08/27/2025 1016) Fluid/Electrolyte Management: fluids adjusted Goal: Absence of Infection Signs and Symptoms Outcome: Ongoing, Progressing Intervention: Prevent or Manage Infection Flowsheets (Taken 08/27/2025 1016) Fever Reduction/Comfort Measures: lightweight bedding lightweight clothing Isolation Precautions: precautions maintained Goal: Optimal Pain Control and Function Outcome: Ongoing, Progressing Intervention: Prevent or Manage Pain Flowsheets (Taken 08/27/2025 1016) Diversional Activities: smartphone television Goal: Effective Oxygenation and Ventilation Outcome: Ongoing, Progressing Intervention: Optimize Oxygenation and Ventilation Flowsheets (Taken 08/27/2025 1016) Activity Management: activity adjusted per tolerance Airway/Ventilation Management: airway patency maintained humidification applied position adjusted Head of Bed (HOB) Positioning: HOB elevated Cough And Deep Breathing: done independently per patient Problem: Infection Goal: Absence of Infection Signs and Symptoms Outcome: Ongoing, Progressing Intervention: Prevent or Manage Infection Flowsheets (Taken 08/27/2025 1016) Fever Reduction/Comfort Measures: lightweight bedding lightweight clothing Isolation Precautions: precautions maintained Problem: Skin Injury Risk Increased Goal: Skin Health and Integrity Outcome: Ongoing, Progressing Intervention: Optimize Skin Protection Flowsheets (Taken 08/27/2025 1016) Activity Management: activity adjusted per tolerance Pressure Reduction Techniques: frequent weight shift encouraged weight shift assistance provided heels elevated off bed Pressure Reduction Devices: foam padding utilized positioning supports utilized Skin Protection: incontinence pads utilized pulse oximeter probe site changed skin sealant/moisture barrier applied Head of Bed (HOB) Positioning: HOB elevated Intervention: Promote and Optimize Oral Intake Flowsheets (Taken 08/27/2025 1016) Oral Nutrition Promotion: physical activity promoted Nutrition Interventions: diet adjusted Problem: Fall Injury Risk Goal: Absence of Fall and Fall-Related Injury Outcome: Ongoing, Progressing Intervention: Identify and Manage Contributors Flowsheets (Taken 08/27/2025 1016) Medication Review/Management: medications reviewed Self-Care Promotion: independence encouraged BADL personal objects within reach Intervention: Promote Injury-Free Environment Flowsheets (Taken 08/27/2025 1016) Safety Promotion/Fall Prevention: activity supervised assistive device/personal items within reach clutter-free environment maintained mobility aid in reach lighting adjusted fall prevention program maintained nonskid shoes/slippers when out of bed room organization consistent safety round/check completed toileting scheduled Problem: Artificial Airway Goal: Effective Communication Outcome: Ongoing, Progressing Intervention: Ensure Effective Communication Flowsheets (Taken 08/27/2025 1016) Diversional Activities: smartphone television Family/Support System Care: involvement promoted Communication Enhancement Strategies: call light answered in person communication board used communication device used device use encouraged * Progress Notes - Roma Rolon MD - 08/27/2025 8:32 AM EDT Plastic Surgery Progress Note Subjective: Patient seen and examined at bedside this AM. Patient reports one small bowel movement since surgery. Review of Systems: Review of Systems Constitutional: Negative. HENT: Negative. Eyes: Negative. Respiratory: Negative. Cardiovascular: Negative. Gastrointestinal: Negative. Endocrine: Negative. Genitourinary: Negative. Musculoskeletal: Negative. Skin: Negative. Allergic/Immunologic: Negative. Neurological: Negative. Hematological: Negative. Psychiatric/Behavioral: Negative. Objective: Vitals: 08/27/25 0813 BP: 126/79 Pulse: 81 Resp: 16 Temp: 36.5 ??C (97.7 ??F) SpO2: 95% Current Scheduled Medications[1] Current Continuous Medications[2] Current PRN Medications[3] Labs in last 18 hours CBC WBC 10.56 (H) Hb 9.3 (L) Plt 483 (H) Hct 28.1 (L) BMP Na 135 (L) Cl 99 BUN 17 Glu 99 K 4.2 Co2 28 Cr 0.60 (L) Ca 9.2 iCa ?? Mg 2.1, Phos 3.5 Physical Exam: Physical Exam HENT: Mouth/Throat: Mouth: Mucous membranes are moist. Comments: Flap pink, well-perfused, dopperable signal Neck: Comments: Neck soft, incision C/D/I with Nylons in place, JPX1 SS Cardiovascular: Pulses: Normal pulses. Pulmonary: Effort: Pulmonary effort is normal. Comments: On trach collar Abdominal: Palpations: Abdomen is soft. Musculoskeletal: Comments: RLE cam boot in place, fires EHL/FHL Skin: General: Skin is warm. Capillary Refill: Capillary refill takes less than 2 seconds. Neurological: General: No focal deficit present. Mental Status: He is alert. Psychiatric: Mood and Affect: Mood normal. Assessment/Plan: Carlito Perez is a 54 y.o. 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 - Okay for OOBTC - CAM boot at all times, WBAT RLE - ASA 324 mg for 1 month - Recommend 5 days antibiotics postoperatively, completed - Continue tube feeds at goal, paused for OR - OMFS managing trach - SQH and SCDs for DVT ppx -To OR ST[facility] 08/28 - Plastic Surgery will continue to follow S. Thom Rolon MD Plastic and Reconstructive Surgery [1] acetaminophen, 1,000 mg, Nasogastric, q6h JOVANNI aspirin, 324 mg, Nasogastric, Daily atorvastatin, 20 mg, Nasogastric, Daily bacitracin, 1 Jar, Topical, Daily esomeprazole, 40 mg, Nasogastric, Daily famotidine, 20 mg, Nasogastric, BID gabapentin, 300 mg, Nasogastric, TID heparin (porcine), 5,000 Units, Subcutaneous, q8h JOVANNI lactobacillus acidophilus, 1 tablet, Nasogastric, BID levothyroxine, 50 mcg, Nasogastric, q AM melatonin, 6 mg, Nasogastric, Nightly metoprolol tartrate, 12.5 mg, Nasogastric, BID polyethylene glycol, 17 g, Nasogastric, BID senna, 8.6 mg, Nasogastric, BID sodium chloride, 3 mL, Nebulization, BID [2] [3] PRN medications: bisacodyl, magnesium hydroxide, [DISCONTINUED] ondansetron ODT OR ondansetron OR ondansetron, oxyCODONE OR oxyCODONE Cosigned by Marvin Santana MD at 08/28/2025 1:57 PM EDT Associated attestation - Marvin Santana MD - 08/28/2025 1:57 PM EDT I saw and evaluated the patient. I discussed the case with the resident/fellow and agree with the findings and plan as documented. * Care Plan - Yessi Campbell RN - 08/27/2025 4:04 AM EDT Problem: Adult Inpatient Plan of Care Goal: Plan of Care Review Flowsheets (Taken 08/27/2025400) Progress: improving Plan of Care Reviewed With: patient Goal: Patient-Specific Goal (Individualized) Flowsheets (Taken 08/26/20251999) Patient/Family-Specific Goals (Include Timeframe): patient will be kept safe, free from injuries throughout the shift. Individualized Care Needs: safety Anxieties, Fears or Concerns: none stated Goal: Absence of Hospital-Acquired Illness or Injury Intervention: Identify and Manage Fall Risk Flowsheets (Taken 08/26/20251999) Safety Promotion/Fall Prevention: activity supervised fall prevention program maintained lighting adjusted nonskid shoes/slippers when out of bed room organization consistent safety round/check completed toileting scheduled mobility aid in reach clutter-free environment maintained assistive device/personal items within reach Intervention: Prevent Skin Injury Flowsheets (Taken 08/27/2025400) Body Position: weight shifting Skin Protection: incontinence pads utilized Intervention: Prevent and Manage VTE (Venous Thromboembolism) Risk Flowsheets (Taken 08/27/2025400) VTE Prevention/Management: left lower extremity SCDs (sequential compression devices) on Intervention: Prevent Infection Flowsheets (Taken 08/27/2025400) Infection Prevention: environmental surveillance performed hand hygiene promoted rest/sleep promoted Problem: Pain Acute Goal: Optimal Pain Control and Function Intervention: Develop Pain Management Plan Flowsheets (Taken 08/27/2025400) Pain Management Interventions: medication (see MAR) pain management plan reviewed with patient/caregiver pillow support provided position adjusted relaxation techniques promoted rest Intervention: Prevent or Manage Pain Flowsheets (Taken 08/27/2025 040) Sensory Stimulation Regulation: television on Bowel Elimination Promotion: ambulation promoted privacy promoted Sleep/Rest Enhancement: awakenings minimized consistent schedule promoted regular sleep/rest pattern promoted relaxation techniques promoted Medication Review/Management: medications reviewed Problem: Surgery Nonspecified Goal: Absence of Bleeding Intervention: Monitor and Manage Bleeding Flowsheets (Taken 08/27/2025 040) Bleeding Management: dressing monitored Goal: Effective Bowel Elimination Intervention: Enhance Bowel Motility and Elimination Flowsheets (Taken 08/27/2025 040) Bowel Elimination Management: hygiene measures promoted Goal: Fluid and Electrolyte Balance Intervention: Monitor and Manage Fluid and Electrolyte Balance Flowsheets (Taken 08/27/2025400) Fluid/Electrolyte Management: fluids adjusted Goal: Absence of Infection Signs and Symptoms Intervention: Prevent or Manage Infection Flowsheets (Taken 08/27/2025 040) Infection Management: aseptic technique maintained Fever Reduction/Comfort Measures: lightweight bedding lightweight clothing Isolation Precautions: precautions maintained protective Goal: Optimal Pain Control and Function Intervention: Prevent or Manage Pain Flowsheets (Taken 08/27/2025 040) Pain Management Interventions: medication (see MAR) pain management plan reviewed with patient/caregiver pillow support provided position adjusted relaxation techniques promoted rest Diversional Activities: television Goal: Effective Oxygenation and Ventilation Intervention: Optimize Oxygenation and Ventilation Flowsheets (Taken 08/27/2025400) Activity Management: up ad elin Airway/Ventilation Management: airway patency maintained Head of Bed (HOB) Positioning: HOB elevated Problem: Infection Goal: Absence of Infection Signs and Symptoms Intervention: Prevent or Manage Infection Flowsheets (Taken 08/27/2025 040) Infection Management: aseptic technique maintained Fever Reduction/Comfort Measures: lightweight bedding lightweight clothing Isolation Precautions: precautions maintained protective Problem: Skin Injury Risk Increased Goal: Skin Health and Integrity Intervention: Optimize Skin Protection Flowsheets (Taken 08/27/2025400) Activity Management: up ad elin Skin Protection: incontinence pads utilized Head of Bed (HOB) Positioning: HOB elevated Intervention: Promote and Optimize Oral Intake Flowsheets (Taken 08/27/2025400) Oral Nutrition Promotion: physical activity promoted Problem: Fall Injury Risk Goal: Absence of Fall and Fall-Related Injury Intervention: Identify and Manage Contributors Flowsheets (Taken 08/27/2025 0401) Medication Review/Management: medications reviewed Self-Care Promotion: BADL personal objects within reach BADL personal routines maintained independence encouraged Intervention: Promote Injury-Free Environment Flowsheets (Taken 08/26/20251999) Safety Promotion/Fall Prevention: activity supervised fall prevention program maintained lighting adjusted nonskid shoes/slippers when out of bed room organization consistent safety round/check completed toileting scheduled mobility aid in reach clutter-free environment maintained assistive device/personal items within reach Problem: Artificial Airway Goal: Effective Communication Intervention: Ensure Effective Communication Flowsheets (Taken 08/27/2025 0401) Trust Relationship/Rapport: care explained choices provided emotional support provided empathic listening provided questions answered questions encouraged thoughts/feelings acknowledged Diversional Activities: television Family/Support System Care: self-care encouraged Communication Enhancement Strategies: call light answered in person communication board used device use encouraged extra time allowed for response * Care Plan - Don Dolan RN - 08/26/2025 3:06 PM EDT Problem: Adult Inpatient Plan of Care Goal: Plan of Care Review Outcome: Ongoing, Progressing Flowsheets (Taken 08/26/2025 1501) Progress: improving Plan of Care Reviewed With: patient Goal: Patient-Specific Goal (Individualized) Outcome: Ongoing, Progressing Flowsheets (Taken 08/26/2025 0800) Patient/Family-Specific Goals (Include Timeframe): pt will verbalize adequate pain control throughout the shift Individualized Care Needs: pain control Anxieties, Fears or Concerns: pain Goal: Absence of Hospital-Acquired Illness or Injury Outcome: Ongoing, Progressing Intervention: Identify and Manage Fall Risk Flowsheets (Taken 08/26/2025 0800) Safety Promotion/Fall Prevention: activity supervised assistive device/personal items within reach clutter-free environment maintained fall prevention program maintained lighting adjusted mobility aid in reach nonskid shoes/slippers when out of bed room organization consistent safety round/check completed toileting scheduled Intervention: Prevent Skin Injury Flowsheets Taken 08/26/2025 1501 Skin Protection: incontinence pads utilized pulse oximeter probe site changed protective footwear used Taken 08/26/2025 1400 Body Position: weight shifting Intervention: Prevent and Manage VTE (Venous Thromboembolism) Risk Flowsheets (Taken 08/26/2025 1400) VTE Prevention/Management: bilateral left SCDs (sequential compression devices) on Intervention: Prevent Infection Flowsheets (Taken 08/26/2025 1501) Infection Prevention: environmental surveillance performed hand hygiene promoted Goal: Optimal Comfort and Wellbeing Outcome: Ongoing, Progressing Problem: Pain Acute Goal: Optimal Pain Control and Function Outcome: Ongoing, Progressing Intervention: Prevent or Manage Pain Flowsheets (Taken 08/26/2025 1501) Sensory Stimulation Regulation: television on care clustered Bowel Elimination Promotion: ambulation promoted Sleep/Rest Enhancement: natural light exposure provided Medication Review/Management: medications reviewed Problem: Surgery Nonspecified Goal: Absence of Bleeding Outcome: Ongoing, Progressing Intervention: Monitor and Manage Bleeding Flowsheets (Taken 08/26/2025 1501) Bleeding Management: dressing monitored Goal: Effective Bowel Elimination Outcome: Ongoing, Progressing Intervention: Enhance Bowel Motility and Elimination Flowsheets (Taken 08/26/2025 1501) Bowel Elimination Management: hygiene measures promoted toileting offered Bowel Motility Enhancement: ambulation promoted Goal: Fluid and Electrolyte Balance Outcome: Ongoing, Progressing Intervention: Monitor and Manage Fluid and Electrolyte Balance Flowsheets (Taken 08/26/2025 1501) Fluid/Electrolyte Management: fluids adjusted Goal: Blood Glucose Level Within Target Range Outcome: Met Goal: Absence of Infection Signs and Symptoms Outcome: Ongoing, Progressing Intervention: Prevent or Manage Infection Flowsheets Taken 08/26/2025 1501 Infection Management: aseptic technique maintained Fever Reduction/Comfort Measures: lightweight bedding lightweight clothing Taken 08/26/2025 0800 Isolation Precautions: precautions maintained protective Goal: Optimal Pain Control and Function Outcome: Ongoing, Progressing Intervention: Prevent or Manage Pain Flowsheets (Taken 08/26/2025 1501) Diversional Activities: smartphone television Goal: Nausea and Vomiting Relief Outcome: Met Goal: Effective Urinary Elimination Outcome: Met Goal: Effective Oxygenation and Ventilation Outcome: Ongoing, Progressing Intervention: Optimize Oxygenation and Ventilation Flowsheets Taken 08/26/2025 1501 Activity Management: ambulated to bathroom Airway/Ventilation Management: airway patency maintained Cough And Deep Breathing: done independently per patient Taken 08/26/2025 1200 Head of Bed (HOB) Positioning: HOB elevated Problem: Infection Goal: Absence of Infection Signs and Symptoms Outcome: Ongoing, Progressing Intervention: Prevent or Manage Infection Flowsheets Taken 08/26/2025 1501 Infection Management: aseptic technique maintained Fever Reduction/Comfort Measures: lightweight bedding lightweight clothing Taken 08/26/2025 0800 Isolation Precautions: precautions maintained protective Problem: Skin Injury Risk Increased Goal: Skin Health and Integrity Outcome: Ongoing, Progressing Intervention: Optimize Skin Protection Flowsheets Taken 08/26/2025 1501 Activity Management: ambulated to bathroom Pressure Reduction Techniques: frequent weight shift encouraged weight shift assistance provided Pressure Reduction Devices: foam padding utilized chair cushion utilized Skin Protection: incontinence pads utilized pulse oximeter probe site changed protective footwear used Taken 08/26/2025 1200 Head of Bed (HOB) Positioning: HOB elevated Intervention: Promote and Optimize Oral Intake Flowsheets (Taken 08/26/2025 1501) Oral Nutrition Promotion: physical activity promoted Nutrition Interventions: diet adjusted Problem: Fall Injury Risk Goal: Absence of Fall and Fall-Related Injury Outcome: Ongoing, Progressing Intervention: Identify and Manage Contributors Flowsheets (Taken 08/26/2025 1501) Medication Review/Management: medications reviewed Self-Care Promotion: independence encouraged BADL personal objects within reach Intervention: Promote Injury-Free Environment Flowsheets (Taken 08/26/2025 0800) Safety Promotion/Fall Prevention: activity supervised assistive device/personal items within reach clutter-free environment maintained fall prevention program maintained lighting adjusted mobility aid in reach nonskid shoes/slippers when out of bed room organization consistent safety round/check completed toileting scheduled Problem: Artificial Airway Goal: Effective Communication Outcome: Ongoing, Progressing Intervention: Ensure Effective Communication Flowsheets (Taken 08/26/2025 1501) Trust Relationship/Rapport: care explained choices provided emotional support provided empathic listening provided thoughts/feelings acknowledged reassurance provided questions encouraged questions answered Diversional Activities: smartphone television Family/Support System Care: self-care encouraged Communication Enhancement Strategies: call light answered in person communication board used communication device used device use encouraged * Progress Notes - Cynthia Sands RN - 08/26/2025 1:14 PM EDT Case Management Adult Progress Note Carlito Perez 54 y.o. male CSN: [id number] Admission: 08/19/2025 5:29 AM Primary Problem: Floor of mouth squamous cell carcinoma Anticipated Discharge Date: 08/30/25 Has Discharge Plans Changed? Medicare Second Notice: Housing Circumstances: Housing Circumstances Action Taken: Medically Ready for Discharge: Additional Comments [facility] center via op5, Marybel has been informed via secure chat. CM sent the wound vac forms to be fill out and signed by MD Adrian in order to request wound vac. CM messaged [employer] to hold delivery for trach supplies + RW As pt will discharge 08/30/25. POC reviewed with primary team. Refer to primary team's note for details. Pt is not medically readyfor discharge. MD anticipates readiness for discharge on 08/30/25 In??MARIANELA Bass, hog confinement system manager * Procedures - Senia Cross PA - 08/26/2025 1:00 PM EDTAssociated Order(s): Wound VAC Dressing Changes (Non-Instillation) Post-Procedure Diagnose(s): Wound of right lower extremity, initial encounter Wound VAC Dressing Changes (Non-Instillation) Date/Time: 08/26/2025 1:00 PM Performed by: Senia Cross PA Authorized by: Marvin Santana MD Consent: Consent obtained: Verbal Consent given by: Patient Risks discussed: Bleeding, infection, pain, nerve damage and incomplete drainage Procedure specific details: Previous wound vac sponge and canister replaced with new silver sponge and canister. Wound appears healthy with healthy granulation tissue measuring approx. 24 x 5 x 1 cm. Patient tolerated well. Post-procedure details: Procedure completion: Tolerated * Bob Miranda RN - 08/26/2025 10:29 AM EDT Images from the original note were not included. [id number] Suctioning Your Tracheostomy Important Call 911 right away if you ever have trouble breathing. Step 1. Collect your supplies ? Find a clean, well-lit space near a sink and mirror. Collect your supplies: o Suction machine o Clean suction catheter o Small bowl of solution as instructed by your health care provider o Clean gloves ? Wash your hands with soap and clean, running water, or clean your hands with a waterless gel-based alcohol cleanser. Step 2. Prepare to suction ? Turn on the suction machine to the setting that your care team gave you. ? Put on clean, disposable, powder-free gloves. ? Attach the suction catheter to the suction machine. Dip the catheter tip into the solution to be sure the suction is working. ? Do the following only if your health care provider tells you to: Put a small amount of solution into your trach tube. This will help loosen mucus. Step 3. Insert the catheter ? Take a few deep breaths to fill your lungs with oxygen. ? Gently insert the catheter into your trach tube. While you insert the catheter, don't suction. Stop inserting the catheter when you start to cough. Step 4. Apply suction ? Place your thumb over the suction port to create suction. At the same time, slowly pull the catheter out of your trach tube. Move the catheter tip in a turtle mountain as you pull the catheter out. ? The catheter should be out of your trach tube within 5 to 10 seconds. If you need to suction more, relax and breathe for a few minutes before you start again. ? When you have finished suctioning, turn off the suction machine. Throw away the used catheter, water, and gloves. Some catheters may be reused in certain situations. Follow your care team's specific instructions. ? Wash your hands thoroughly. Last Reviewed Date: 2025 00:00:00 ?? [id number] [employer]. All rights reserved. This information is not intended as a substitute for professional medical care. Always follow your healthcare professional's instructions. * Rachell Lopez - Bob Masterson RN - 08/26/2025 10:29 AM EDT Images from the original note were not included. 04193 Preventing a Surgical Site Infection A risk of any surgery is an infection at the surgical site. The surgical site is a cut the surgeon makes in the skin to do the surgery. Surgical site infections can range in type. It may be a minor skin infection. Or it may be severe and include tissue under the skin or other organs. In some cases,a severe infection can cause . The information below tells you: ? About surgical site infections. ? What hospitals do to prevent them. ? How they?re treated if they do occur. ? What you can do to prevent an infection. Hand washing reduces the risk of infection. What causes a surgical site infection? Germs are everywhere. They?re on your skin, in the air, and on things you touch. Many germs are good. Some are harmful. Surgical site infections occur when harmful germs enter your body through the incision in your skin. Some infections are caused by germs that are in the air or on objects. But most are caused by germs found on and in your own body. Who is at risk for a surgical site infection? Anyone can have a surgical site infection. Your risk is higher if you: ? Are an older adult. ? Have a weak immune system. ? Have other health conditions such as diabetes. ? Take certain medicines, such as steroids. ? Are a smoker. ? Have certain types of surgery, such as abdominal surgery. ? Have poor nutrition. ? Are very overweight. ? Have a surgery that lasts longer than 2 hours. What are the symptoms of a surgical site infection? An infection often shows up as skin redness, pain, and swelling around the incision that gets worse. Later, a cloudy or greenish-yellow fluid may come from the incision. The fluid may smell bad. The incision may pull apart or open up. You are likely to have a fever and may feel very ill. Symptoms can appear at any time. They may happen from hours to weeks after surgery. Implants such as an artificial knee or hip can become infected at any time after the surgery. How is a surgical site infection treated? ? A surgical site infection is treated with antibiotics. The type of medicine you get will depend on what may be causing the infection. Most serious wound infections need wound care. In some cases, surgery may be needed on the infected wound. ? An infected skin wound may be reopened and cleaned. A deep wound may need to be packed with gauze. The gauze is changed often until the wound starts to heal from the inside out. Your health care provider will decide the best way to treat your infection. ? If an infection occurs where an implant is placed, the implant may be removed. ? If you have an infection deeper in your body, you may need surgery to treat it. What hospitals do to prevent surgical site infections Many hospitals take these steps to help prevent surgical site infections: ? Handwashing. Before the surgery, your surgeon and all surgery staff scrub their hands and arms with an antiseptic soap. ? Clean skin. The site where your incision is made is carefully cleaned with an antiseptic solution. ? Sterile clothing and drapes. The surgical team wears medical uniforms. These are known as scrub suits. They wear long-sleeved surgical gowns, masks, caps, shoe covers, and sterile gloves. Your bodyis fully covered with a large sterile sheet (sterile drape). There is an opening in the sheet wherethe incision is made. ? Clean air. Operating rooms have special air filters. They use positive pressure airflow to prevent unfiltered air from entering the room. ? Careful use of antibiotics. Antibiotics are given no more than 60 minutes before the incision is made. They are generally stopped within 24 hours after surgery. This depends on the type of surgery.This helps kill germs but prevents problems that can occur when antibiotics are taken longer. ? Controlled blood sugar levels. Your blood sugar level may rise. This can be because of the stressof the surgery. Your blood sugar level is watched closely to make sure it stays within a normal range. High blood sugar delays wound healing. This increases the risk of infection. ? Controlled body temperature. A hncjp-[id number] temperature during or after surgery prevents oxygen from reaching the wound. This makes it harder for your body to fight infection. Hospitals may warm I.V. fluids, and provide warm-air blankets. Your temperature is watched throughout the surgery. ? Safe hair removal. Any hair that must be removed is clipped right before the incision, not shavedwith a razor. This prevents tiny nicks and cuts where germs can enter. ? Wound care. After surgery, a closed wound is covered with a sterile dressing for 1 to 2 days. Open wounds are packed with sterile gauze and covered with a sterile dressing. What you can do to prevent a surgical site infection ? Ask questions. Learn what your hospital is doing to prevent infection. ? If instructed, shower or bathe with plain soap the night before and the day of your surgery. Follow all instructions you're given. You may be asked to use a special cleanser that you don?t rinse off. ? If you smoke, stop as long as possible before and after the surgery. Ask your provider about waysto quit. ? Take antibiotics only when your provider tells you to. Using antibiotics when they?re not needed can create germs that are harder to kill. Finish the entire prescription of your antibiotics even ifyou feel better. ? Ask health care workers to clean their hands with plain soap and water or with an alcohol-based hand therapy assistant before and after caring for you. Don?t be afraid to remind them. ? After surgery, eat healthy foods. Care for your incision as directed by your health care team. When to contact your doctor Contact your provider or seek medical care right away if: ? The pain at the surgical site gets worse. ? A red streak, worse redness, or puffiness appears near the incision. ? Yellowish, cloudy, or bad-smelling fluid leaks from the incision. ? Your stitches dissolve before the wound heals. ? You have a fever of 100.4?? F ( 38??C ) or higher, or as advised by your provider. ? You have a tired feeling that doesn?t go away. Last Reviewed Date: 2024 00:00:00 ?? [id number] [employer]. All rights reserved. This information is not intended as a substitute for professional medical care. Always follow your healthcare professional's instructions. * Rachell KhannaRUPALI - Bob Masterson RN - 08/26/2025 10:29 AM EDT Images from the original note were not included. 21731 Tracheostomy Care You need to take care of your trach tube and your stoma. You also need to care for the skin around the stoma. Your care team will tell you how to do this. Before you go home, ask for an instruction manual for tracheostomy care. Also, ask about contact information for an equipment supply company. And be sure you know which emergency supplies to keep at home. Your care team can give you a checklist. The guidelines below may also help you. Keeping the tracheostomy clean To take care of your skin and prevent infection, you need to keep your tracheostomy clean. You willbe shown how to do this. Clean the tracheostomy at least once a day. Clean more often, if you need to. Keeping your trach ties or soft collar clean Trach ties fit around your neck to hold your tube in place. They will get soiled. Fabric ties need to be changed when they are soiled. You will be shown the best way to change your ties. You may have been told to use a hook and loop fastener or a soft collar. If so, follow the instructions that your care team gave you. Trach ties fit right if you can put one finger between the ties and your neck. Keeping the trach tube clear There is always some mucus in your airway. But mucus can build up and thicken. If this happens, your trach tube can become plugged. To keep the trach tube clear of mucus buildup, you may need to do one or more of the following: ? Suction the mucus out of the airway. To do this, you use a suction machine. It will be ordered for you before you leave the hospital. You will be told how to suction and how often. ? Moisten the air you breathe. Usually, the nose moistens the air as it is breathed in. With a tracheostomy, you need another way to moisten the air. For example, you could use a humidifier. Ask yourhealth care provider how to moisten the air. ? Do not wear clothing that blocks the opening of the trach tube. This includes turtleneck shirts and tightly wrapped scarves. You can use a loose-fitting scarf to hide the trach tube. You can also use it to protect the tube from cold air and dust. Make sure the scarf does not shed lint, have loosefibers, or block air flow. Medical supply stores may sell trach coverings. They may also sell shield s for use in the shower. You will be told what to do if your trach tube becomes plugged. If you ever have trouble breathing,call 911 right away. When to contact your doctor Contact your health care provider right away if you have: ? A red or painful stoma. ? A small amount of bleeding from the stoma or tube that stops promptly. ? A fever of 100.4??F ( 38??C) or higher, or as advised by your provider. ? Yellow, bad-smelling, bloody, or thick mucus. ? Vomiting that does not go away. Call 911 Call 911 right away if any of these occur: ? Large amount of bleeding or lasting bleeding from the tracheostomy site ? Coughing up blood ? Swelling around the trach tube ? New or worsening trouble breathing Last Reviewed Date: 2025 00:00:00 ?? [id number] [employer]. All rights reserved. This information is not intended as a substitute for professional medical care. Always follow your healthcare professional's instructions. * Rachell KhannaFORMERLY [facility], [facility] - Bob Masterson RN - 08/26/2025 10:29 AM EDT Images from the original note were not included. 43 Living With a Tracheostomy Learning to communicate Having a tracheostomy may mean learning new ways to communicate with others. Your health care providers will help you as you adjust. If you cannot talk, you can learn other ways to share your thoughts and feelings to others. If You Can Talk Whether you can talk after a tracheostomy depends on why you have the tube. Many people with trach tubes still have vocal cords and can use these cords to talk. Certain trach tubes are designed to help with talking. Your healthcare team can help you decide whether one of these tubes is right for you. You may see aspeech therapist (a person trained to help people who have problems speaking). He or she can help you learn ways to make talking easier. If You Can?t Talk If you can?t talk after your tracheostomy, you can still communicate. The tips below can help you do this. Ask your healthcare team for other suggestions. ? Carry a pen and paper, a chalkboard, or a wipe-off? board with you. Use them to write quick notes to others. ? Use flash cards that say basic things, such as ?thirsty? or ?restroom.? ? Try using a board with all the letters of the alphabet on it. Point to the letters to spell words. ? Agree on the meanings of hand gestures with friends and family members. ? Use facial expressions, such as a smile. They can say a lot. Eating with a trach You can still eat many of the same foods you did before you had the tracheostomy. But there are a few things to keep in mind. Your doctor or other healthcare provider may advise you to eat or avoid certain foods. Be sure to follow his or her advice. Try the tips below. ? If you have a cuffed tube, ask your healthcare provider whether you should deflate it before you eat. ? Cut food into small pieces to make swallowing easier. ? Sit up straight. Eat slowly. Chew food well before you swallow. ? Drink plenty of fluids. Fluids help keep your mucus thin and prevent mucus buildup. Only eat foods and liquids as instructed by your doctor or speech pathologist. These may include thicker fluids, such as soups and nonalcoholic blended drinks. ? Prevent constipation by eating plenty of fiber. This is found in whole grains, bran, fruits, vegetables, and beans. ? If you aspirate food (it goes into your airway), stay calm. Try to suction the food out through your trach tube. If you can?t do this, call 911 (emergency) right away. ? Your speech pathologist may recommended you wear a one-way speaking valve to eat. If so, always wear it while you eat. Adjusting to your trach It may take you some time to adjust to your tracheostomy. You may wonder how it will affect your daily life. You will need to make some changes. But you can get used to having a trach tube. Your family, friends, and healthcare providers can help. Learning to adjust At first, you may be scared, angry, or depressed about having a trach tube. This is common. You need to give yourself time to adjust. Using and caring for your trach tube will get easier and less awkward with time. Also, you may find that some people may be curious about your tube. They may stare or ask you questions. Decide how you will respond to this. Wearing a scarf can make the trach tube less noticeable, but be sure air can still get in and out of the tube. And remember that your friends and family still love you for who you are, with or without the trach tube. Living your daily life To make living with your trach tube easier and safer, try these tips: ? Never let water enter the trach tube. Keep your tube and stoma dry when you bathe or shower. A hand-held shower nozzle may be helpful. Use a shower shield, if you are told to. ? Do not put anything into your trach tube that doesn?t belong there. Never smoke through your trach tube. If you smoke, your health care provider can help you quit. ? Cover your tube if you go to places where the air is shalom or dirty. You may have a Heat MoistureExchanger (also called an HME or artificial nose). This acts as a filter so you are more free to move. Avoid smoky or shalom environments when possible. ? Sit down and rest for a few minutes if you feel upset or begin to gag. Breathe slowly and deeply.If this is a problem for you, tell your doctor. He or she can help you learn to relax. For family and friends A person with a tracheostomy needs to learn a new way to breathe. He or she needs time to adjust. Be patient and supportive. Know that the person you love hasn?t changed. Try to keep in mind the points below: ? Learn how to care for the tracheostomy, in case your loved one needs help. Ask a healthcare provider to help you learn what to do. ? Be alert for signs of a problem with the tracheostomy. If your loved one has a hard time breathing, call 911 (emergency) right away. ? Try to be patient. Your loved one may become upset or angry at times. Having a tracheostomy can be frustrating, especially at first. ? Encourage your loved one to get back to normal activities, including going out. Help him or her get used to being in public with the trach tube. Answers to some common questions Here are answers to some common questions. If you have other questions, ask a member of your healthcare team. Q: How long will I have my trach tube? A: This depends on why you have the tube. Often, the new airway is needed for only a short time. But sometimes the new airway must stay in for good. The tube is removed when it?s no longer needed. Q: If the trach tube is taken out, will it leave a hole? A: If the stoma is no longer needed, it is covered up and allowed to close on its own. Tracheostomystomas often heal nicely and leave only a small scar. Q: Can I swim with a tracheostomy? A: You can?t put your tube under water. But you can brooke or sit in water if you keep your stoma andtube dry. Q: I sometimes feel like I?m gagging. Is this normal? A: Until you get used to breathing through the trach tube, you may feel that it is hard to breathe or swallow. Stay calm. Take some deep breaths. As you relax, the feeling should go away. It is normal to gag a little when you suction. Q: Can my trach tube fall out? A: Your trach ties should keep your tube from falling out, even if you cough. But you should know what to do if the tube does come out. Q: Why is it harder to pass stool? A: A person who breathes through the nose or mouth can hold his or her breath to help push stool out. You can?t do this, so stool may be harder to pass. If this is a problem for you, talk to your doctor. He or she may suggest a high-fiber diet or laxatives. * Rachell Lopez - Bob Masterson RN - 08/26/2025 10:29 AM EDT Images from the original note were not included. 23371 Negative Pressure Wound Therapy Negative pressure wound therapy (NPWT) is a type of treatment that helps wounds heal. It's also known as vacuum-assisted wound closure or wound VAC. This treatment uses low atmospheric pressure to help reduce inflammation and grow new tissue. It can help the wound heal more quickly. Understanding NPWT A NPWT device has several parts. A foam or gauze dressing is put directly on the wound. The dressing is changed every 24 to 72 hours. An adhesive film covers and seals the dressing and wound. A drainage tube leads from under the adhesive film and connects to a portable vacuum pump. This pump removes air pressure over the wound, and it also helps drain any fluid from the wound. It may do this constantly. Or it may do it in cycles. During the treatment, you?ll need to carry the portable pump everywhere you go. Why NPWT is used You might need this therapy for a recent traumatic wound. Or you may need it for a chronic wound. This is a wound that does not heal the way it should over time. This can happen with wounds in peoplewho have diabetes. You may need NPWT if you?ve had a recent skin graft. And you may need it for a large wound. Large wounds can take a longer time to heal. NPWT may help your wound heal more quickly by: ? Draining extra fluid from the wound. ? Reducing swelling. ? Reducing bacteria in the wound. ? Keeping your wound moist and warm. ? Helping draw together wound edges. ? Increasing blood flow to your wound. ? Decreasing inflammation. NPWT may decrease your overall discomfort. The dressings usually need to be changed less often. Andthey may be easier to keep in place. Risks of NPWT NPWT has some rare risks, such as: ? Bleeding, which may be severe. ? Wound infection. ? An abnormal connection between the intestinal tract and the skin (enteric fistula). This is usually a problem only if the NPWT is used on an open belly wound that was unable to be closed. Correct training in changing the dressing can help reduce these risks. Also, your health care provider will make sure you are a good candidate for the therapy. Certain problems can increase your riskfor complications. These include: ? Exposed organs or blood vessels. ? High risk of bleeding from another medical problem. ? Wound infection. ? Nearby bone infection. ? wound tissue. ? Cancer tissue. ? Fragile skin, such as from aging or longtime use of topical steroids. ? Allergy to adhesive. ? Very poor blood flow to your wound. ? Wounds close to joints that may reopen because of movement. Your provider will discuss the risks that apply to you. Make sure to talk with them about all your questions and concerns. Getting ready for NPWT You likely won?t need to do much to get ready for your wound therapy. In some cases, you may need to wait a while before having this therapy. For example, your provider may first need to treat an infection in your wound. or damaged tissue may also need to be removed from your wound. You or a caregiver may need training on how to use the NPWT device. This is done if you will be able to have your wound vacuum therapy at home. In other cases, you may need to have your wound vacuum therapy in a health care facility. On the day of your procedure A provider will cover your wound with foam or gauze wound dressing. An adhesive film will be put over the dressing and wound. This seals the wound. The foam connects to a drainage tube, which leads to a vacuum pump. This pump is portable. When the pump is turned on, it draws fluid through the foam and out the drainage tubing. The pump may run constantly, or it may cycle on and off. Your exact setup will depend on the specific type of wound vacuum system that you use. Managing your wound You may need the dressing changed about once a day, or less often, such as every few days. You may need it changed more or less often, depending on your wound. You or your caregiver may be trained todo this at home. Or it may be done by a visiting provider. Your provider may prescribe a pain medicine. This is to prevent or reduce pain during the dressing change. You will likely need to use the NPWT system for several weeks or months to allow the wound to heal.During this time, you?ll carry the portable pump everywhere you go. Nutrition for wound healing During this time, make sure you follow a healthy diet. This is needed so the wound can heal and to prevent infection. Your provider can tell you more about what to include in your diet during this time. Follow up with your provider if you have a medical condition that led to your wound, such as diabetes. Your provider can help you prevent future wounds. Follow-up care Your provider will carefully keep track of your healing. Make sure to keep all follow-up appointments. This can include measuring the size of the wound and taking pictures of it. When to call your doctor Contact your health care provider right away if: ? You have a fever of 100.4??F (38??C) or higher, or as directed by your provider. ? You have chills. ? There is increased redness, swelling, or warmth around the wound. ? You have more pain. ? There is bright red blood or blood clots in tubing or the collection chamber of the NPWT device. Last Reviewed Date: 2024 00:00:00 ?? [id number] [employer]. All rights reserved. This information is not intended as a substitute for professional medical care. Always follow your healthcare professional's instructions. * Rachell Lopez - Bob Masterson RN - 08/26/2025 10:29 AM EDT Images from the original note were not included. 1494 Neck Dissection What should I expect? During surgery: The doctor will remove all the lymph nodes in a specific area of your neck. The doctor will also remove some surrounding tissue to make sure all the cancer is removed. When cancer metastasizes to other parts of the body, it can travel to the lymph nodes. This causes enlarging of the nodes and lumpsyou can see or feel in the neck ? A radical neck dissection is the removal of lymph nodes along with certain muscles, veins, and nerves in the same area. This is done for patients who have a more aggressive form of cancer in the neck. Due to the extent of this surgery, there will be cosmetic changes of the neck along with drooping of the shoulder on the side of surgery due to the removal of the muscle. ? A modified neck dissection is a less extensive surgery. It involves removing only the lymph nodesthat are expected to have cancer in them. This surgery does not involve removing muscles and nerves. This means less cosmetic change and shoulder weakness. After surgery: ? You will be admitted to the hospital for close monitoring. Your hospital stay can last 1-4 days. Once it is safe to do so, you can go home. ? After the lesion or tumor is removed, it is sent to pathology to be reviewed. Those results normally take 7-10 days. They will be reviewed with you at your follow up visit. What are the risks? ? Infection ? Bleeding ? Nerve damage: especially those controlling shoulder movement and lower lip movement ? Numbness along the scar line, cheek, ear, chest wall, shoulder, and neck ? Neck and shoulder stiffness or pain ? director long term care swelling (lymphedema) which can be reduced through lymphedema therapy ? Shoulder weakness ? Changes in speech and swallowing Many of these problems can be reduced by physical therapy, lymphedema therapy, and speech therapy. How do I care for myself at home? Activity: Do not lift anything more than 5 pounds for 1 week. Only do light physical activity for 2 weeks. No contact sports, swimming, bike riding, running, or rough play. Keep your head raised at all times for 4-5 days, even while sleeping. Wound care: ? You may have a surgical drain in your neck after surgery. Your nurse will teach you how to care for it. These often have a bulb that is emptied and recapped each day. Record all daily output from it on the attached log. Bring the log to your follow up visit. ? Incision: o Some sutures may need bacitracin ointment. o Starting the day after surgery, clean the wound twice a day. Use a Q-tip soaked in half peroxide and half water. Pat dry. Apply an antibiotic ointment for 3-5 days. After that, apply Vaseline to the incision. o You may gently wash your incision site with soap and water. Things to avoid: ? Do not drive until you can move your neck to look around and you are no longer on narcotic pain medicine. ? Avoid straining with bowel movements. If needed, buy a laxative or stool softener over the counter. ? Do not take any medicines that may make you bleed easily 1 week before and 1 week after surgery, unless cleared by your doctor. If you are uncertain, call your pharmacist or the nurse. ? Avoid direct sunlight to the area to avoid more scars. For a year after surgery, put sunblock on your scars when in direct sunlight. Direct sunlight can cause the scar to discolor. When should I call the doctor? Call the clinic at [phone] if you have any of these: ? Swelling, increased warmth, or redness near the wound ? Drainage and bleeding from the wound ? Fever of 101??F or higher ? Increased pain that is not helped by medicine ? Nausea or vomiting that does not go away in 12 hours ? Tingling or cramps in your hands, feet, or lips Call 911 or go to the [facility] emergency department if you have any of these: ? Shortness of breath ? Bleeding that soaks through the bandage ? Chest pain Drain Amounts Chart Write down the amount of fluid that you empty from your drain bulb every 4-8 hours. Empty the bulb more often if it fills up. Some people may have 2 drains. If you only have 1 drain, ignore the chartfor Drain #2. Drain #1 Drain #2 Date/Time Amount Date/Time Amount Date/Time Amount Date/Time Amount 06/22/09 7 a.m. 20ml * Rachell Lopez - Bob Masterson RN - 08/26/2025 10:29 AM EDT Images from the original note were not included. 9 Taking Care of Your Drain Tube ([place]) During surgery, your doctor placed a drain that comes out of your skin. It will remove the fluid that collects near your incision. The drain has a plastic tube and a bulb to hold the fluid. It works by using a small amount of suction. This handout contains important information about caring for your drain tube. When to call your doctor - you need to know when it is important to call your doctor about a problem or concern with your drain. Call your doctor if: ? The tube falls out or the incision opens. ? You see pus around the drain tube or incision. ? You see any of these signs that the skin is infected - it is: * red * swollen * tender to the touch * pulled away from the drain tube ? You have a fever of 101.5 or more. ? The fluid in the drain smells bad. ? The fluid in the drain changes color or turns bloodier. ? You have pain at the incision site that was not there before. ? There is a big change in the amount of fluid that drains. For example, if you need to empty the bulb after 4 hours when you normally empty it every 6 hours. ? The bulb part of the drain fills up with air or will not stay flat. ----- Call your doctor right away if the amount of fluid doubles in a 4-hour period. ----- Write down the phone number you would call here: How to Empty Your Drain Tube You need to empty the fluid that drains into the bulb every 4-8 hours. Don?t let the bulb fill up more than half full. What you need: ? Gauze pads (4x4s) ? Measuring cup ? Drain Amounts Chart (at the end of this handout) Drain the tube: 1. Wash your hands with warm, soapy water. 2. Pull the plug out of the bulb. 3. Empty the fluid from the bulb into the measuring cup. Don?t let the bulb touch the cup. 4. Make sure there is no fluid left in the bulb. 5. Wipe off the outside of the bulb plug with a clean gauze 4x4. Throw the 4x4 away after using. 6. Squeeze all the air out of the bulb. While the air is out of the bulb, put the plugback into theopening. The bulb should stay flat. Some people have trouble keeping the bulb squeezed flat and putting the plug back in at the same time. If this happens, place the bulb on a flat hard surface, like a counter top, and use one hand to keep it flat. Use your other hand to replace the plug. 7. Write down how much fluid is in the measuring cup on the Drain Amounts Chart, along with the date and time. 8. Pour the fluid into the toilet and flush. How to Unclog Your Drain Tube Sometimes clots will clog your drain tube, causing fluid to back up into your body or spill out around the tube site. It is very important to take care of this problem right away. If you see or feel a clot in the tube, make sure you squeeze it out into the bulb. This is called ?milking? or ?stripping? your drain tube. Do this when the drain does not seem to beworking properly. 1. Machine Coil Assembler the tube near the skin and hold it in place with one hand. This will keep the tube from pulling out of the skin. 2. With your other hand, pinch the tube between your thumb and first finger. 3. Starting near the skin where you are holding the tube in place, pull your fingers along the tubetoward the bulb. This helps push the clogged fluid into the bulb. * Stop right away if you start to pull the tube away from your skin! 4. If the fluid still does not drain after you try this, call your doctor. Reminders ? Don?t let the tube get kinked. ? Don?t squeeze the bulb with the plug in place. ? Fill in your Drain Amounts Chart every time you empty the bulb. ? Remember to bring your Drain Amounts Chart to your clinic appointment. Drain Amounts Chart Write down the amount of fluid that you empty from your drain bulb every 4-8 hours. Empty the bulb more often if it fills up. Some people may have 2 drains. If you only have 1 drain, ignore the chart for Drain #2. Drain #1 Drain #2 Date/Time Amount Date/Time Amount Date/Time Amount Date/Time Amount 06/22/09 7 a.m. 20ml * Rachell Lopez - Bob Masterson RN - 08/26/2025 10:29 AM EDT Images from the original note were not included. [id number] Surgery for a Mouth or Throat Tumor Surgery may be done to remove either a cancerous or noncancerous (benign) tumor. Your healthcare team will let you know what to expect. They?ll also discuss the possible risks and complications of the surgery, the benefits of the surgery, and any other treatment options. They'll also let you know which healthcare providers will take part in the surgery. Before the surgery you'll be asked to read and sign an informed consent form. This form also explains the surgery, the risks, and the possible complications. Signing it means that you understand and agree to both the possible positive and negative outcomes. You'll also be asked to sign a consent form so that you can get anesthesia during the procedure. You should take the informed consent processvery seriously. Talk with your healthcare provider if you have any questions or concerns before yousign the forms. The surgery plan Your surgery may take from a few minutes to several hours. At the start, you'll be given anesthesiato keep you comfortable. Depending on the size of the tumor and where it is, surgery can include: ? Removing the tumor. If the tumor is benign, you may not need any other treatment after it?s removed. If the tumor is cancer, you may also need radiation or chemotherapy. ? Helping you breathe while the tumor is removed. To do this, the surgeon may make a small hole in the front of your throat. The surgeon may put a tube through this hole to help you breathe. This is called a tracheostomy or trach. ? Removing some lymph nodes from your neck if your tumor is cancer. This procedure (neck dissection) is done if the tumor has spread to nearby neck lymph nodes. This procedure will help keep the cancer from spreading. The information gathered during the procedure will help guide further treatment. ? Doing surgery to replace tissue removed. This could include using tissue from your forearm, thigh, chest, back, or other site to replace tissue removed during the surgery. This can help you regain better use of your mouth, throat, or neck after treatment. Possible risks and complications Some of the possible risks and complications of surgery include: ? Infection ? Bleeding ? Trouble speaking or swallowing ? Pain or numbness at the incision site ? Loss of muscle tone or range of motion in your face, neck, or arm ? Reduced sense of taste, smell, or feeling ? Change in how you look Last Reviewed Date: 2024 00:00:00 ?? [id number] [employer]. All rights reserved. This information is not intended as a substitute for professional medical care. Always follow your healthcare professional's instructions. * Rachell Lopez - Bob Masterson RN - 08/26/2025 10:29 AM EDT Images from the original note were not included. 1524 Flap Surgery What should I expect during surgery? During the procedure: A free flap surgery is a reconstructive surgery done following or together with a surgery to removea large tumor or damaged tissues such as the jaw bone that leaves a large wound that cannot heal on its own. This surgery involves taking skin, muscle, and/or bone (free flap) from another part of your body (donor site) and placing it in the area where your tumor or bone was removed. Blood vessels fromthe free flap are connected to blood vessels in your neck to help blood flow through the tissue. Ifyour jaw bone is involved in the surgery, titanium screws and plates may be used to hold the new bone in place and will stay in your body. A skin graft may also be taken from your leg or arm to coverthe donor site. ? Common free flap donor sites include: the radial forearm (inner arm), stomach, fibula (lower leg), thigh, back, and shoulder blade. ? Common free flap donor sites include: submental (chin), pectoralis (chest), supraclavicular (shoulder). This surgery may be combined with a tracheostomy placement, a feeding tube placement, and removal of some or all of your teeth, or any other surgeries to remove cancer in that area. Your surgeon willdiscuss this with you before surgery if these procedures are needed. After the procedure: ? After the lesion or tumor is removed, it is sent to pathology for review. Those results normally take 7-10 days to come back. They will be reviewed with you at your follow up visit. ? After surgery you will be admitted to the hospital in the ICU. We will closely monitor your flap?s blood flow. Your hospital stay may last between 6-14 days. You can go home once you are cleared byyour surgeon. Regional flaps may need less monitoring. What are the risks? ? Infection ? Bleeding ? Free flap failure: will require another surgery to repair the wound ? Numbness and weakness of your face, tongue, shoulder, or voice box ? Numbness and weakness of your donor site ? Salivary fistula when saliva leaks from mouth or throat into your neck wound ? Hardware malfunction or breakage of the titanium screws and plates ? Wound healing problems How do I care for myself at home? Wound care: ? Incision: o The day after surgery clean the wound twice a day. Use a Q-tip soaked in half peroxide and half water. Pat dry. o Apply an antibiotic ointment to the incision for 3-5 days. Then switch to Vaseline. o You may gently wash your incision site with soap and water. ? Donor site: o You will also have a sponge dressing on your skin graft donor site. It can get wet in the shower.Pat dry with a towel and dry with a hairspring adjuster on low setting to avoid burning. At the appointment,the rosales holding it in place will be removed. o Once the rosales are removed, the dressing will be left in place. It will form an artificial scabover your wound until it comes off on its own. o If you have bleeding or drainage from that area, reinforce the sponge dressing with gauze and an AV wrap. o Your donor site will be protected with a splint dressing for 7 days or until your follow up visitwith your surgeon, based on your healing. Activity: ? Do not lift anything more than 5 pounds for 1 week. ? Only do light physical activity for 2 weeks. This includes no contact sports, swimming, bike riding, running, or rough play. ? Keep your head raised at all times for 4-5 days, even while sleeping. Diet: ? Monitor for signs and symptoms of aspiration which include coughing after eating or drinking and fever. ? Follow dietary orders as instructed by the doctor prior to your discharge. ? If you will be taking nutrition by feeding tube, the case management specialist in the hospital will give you information to reach the company that will be shipping you your nutrition. Things to avoid: ? Do not drive until you can move your neck to look around and you are no longer on narcotic pain medicine. ? Avoid straining with bowel movements. If needed, buy a laxative or stool softener over the counter. ? Do not take any medicines that may make you bleed easily 1 week before and 1 week after surgery, unless cleared by your doctor. If you are not sure, call your pharmacist or the nurse. ? Avoid direct sunlight to the area to avoid more scars. For a year after surgery, put sunblock on your scars when in direct sunlight. Direct sunlight can cause the scar to discolor. When should I call the doctor? Call the clinic at [phone] if you have any of these: ? Swelling, increased warmth, or redness near the wound ? Drainage and bleeding from the wound ? Fever of 101??F or higher ? Increased pain that is not helped by medicine ? Nausea or vomiting that does not go away ? Darkening of the flap ? Constipation lasting longer than 3 days Call 911 or go to the nearest emergency department if you have any of these: ? Chest pain ? Shortness of breath ? Excessive bleeding * Progress Notes - Roma Rolon MD - 08/26/2025 8:03 AM EDT Plastic Surgery Progress Note Subjective: Patient seen and examined at bedside this AM. Reports voiding spontaneously. Pain well-controlled. Discussed plans for [place] change. Review of Systems: Review of Systems Constitutional: Negative. HENT: Negative. Eyes: Negative. Respiratory: Negative. Cardiovascular: Negative. Gastrointestinal: Negative. Endocrine: Negative. Genitourinary: Negative. Musculoskeletal: Negative. Skin: Negative. Allergic/Immunologic: Negative. Neurological: Negative. Hematological: Negative. Psychiatric/Behavioral: Negative. Objective: Vitals: 08/26/25 0342 BP: Pulse: 74 Resp: Temp: SpO2: 93% Current Scheduled Medications[1] Current Continuous Medications[2] Current PRN Medications[3] Labs in last 18 hours CBC WBC 11.66 (H) Hb 9.2 (L) Plt 455 (H) Hct 28.1 (L) BMP Na 138 Cl 101 BUN 19 Glu 101 (H) K 4.3 Co2 25 Cr 0.59 (L) Ca 8.9 iCa ?? Mg 2.2, Phos 4.0 Physical Exam: Physical Exam HENT: Mouth/Throat: Mouth: Mucous membranes are moist. Neck: Comments: Neck soft, incision C/D/I with Nylons in place, JPX1 SS Cardiovascular: Pulses: Normal pulses. Pulmonary: Effort: Pulmonary effort is normal. Comments: On trach collar Abdominal: Palpations: Abdomen is soft. Musculoskeletal: Comments: RLE cam boot in place, fires EHL/FHL Skin: General: Skin is warm. Capillary Refill: Capillary refill takes less than 2 seconds. Neurological: General: No focal deficit present. Mental Status: He is alert. Psychiatric: Mood and Affect: Mood normal. Assessment/Plan: Carlito Perez is a 54 y.o. 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 - Okay for OOBTC - CAM boot at all times, WBAT RLE - [place] in place over right leg, will change at bedside on 08/26 - [id number] mg for 1 month - Recommend 5 days antibiotics postoperatively, completed - Continue tube feeds at goal - OMFS managing trach - SQH and SCDs for DVT ppx - Patient not appropriate for discharge at this time. Patient to remain inpatient until STSG which is scheduled for 08/28/25. - Plastic Surgery will continue to follow S. Thom Rolon MD Plastic and Reconstructive Surgery [1] acetaminophen, 1,000 mg, Nasogastric, q6h JOVANNI aspirin, 324 mg, Nasogastric, Daily atorvastatin, 20 mg, Nasogastric, Daily bacitracin, 1 Jar, Topical, Daily esomeprazole, 40 mg, Nasogastric, Daily famotidine, 20 mg, Nasogastric, BID gabapentin, 300 mg, Nasogastric, TID heparin (porcine), 5,000 Units, Subcutaneous, q8h JOVANNI levothyroxine, 50 mcg, Nasogastric, q AM melatonin, 6 mg, Nasogastric, Nightly metoprolol tartrate, 12.5 mg, Nasogastric, BID polyethylene glycol, 17 g, Nasogastric, BID senna, 8.6 mg, Nasogastric, BID sodium chloride, 3 mL, Nebulization, BID [2] [3] PRN medications: magnesium hydroxide, [DISCONTINUED] ondansetron ODT OR ondansetron OR ondansetron, oxyCODONE OR oxyCODONE Cosigned by Marvin Santana MD at 08/26/2025 8:10 AM EDT Associated attestation - Marvin Santana MD - 08/26/2025 8:10 AM EDT I discussed the case with the resident/fellow and agree with the findings and plan as documented. * Care Plan - James Juan RN - 08/26/2025 6:28 AM EDT Problem: Adult Inpatient Plan of Care Goal: Plan of Care Review Outcome: Ongoing, Progressing Flowsheets (Taken 08/26/2025624) Progress: improving Plan of Care Reviewed With: patient Goal: Patient-Specific Goal (Individualized) Outcome: Ongoing, Progressing Flowsheets (Taken 08/25/20251999) Patient/Family-Specific Goals (Include Timeframe): pt will remain free from falls or injury throughout shift Individualized Care Needs: pain management Anxieties, Fears or Concerns: pain Goal: Absence of Hospital-Acquired Illness or Injury Outcome: Ongoing, Progressing Intervention: Identify and Manage Fall Risk Flowsheets (Taken 08/25/20251999) Safety Promotion/Fall Prevention: activity supervised assistive device/personal items within reach clutter-free environment maintained fall prevention program maintained lighting adjusted mobility aid in reach nonskid shoes/slippers when out of bed room organization consistent safety round/check completed Intervention: Prevent Skin Injury Flowsheets Taken 08/26/2025 0342 by Hailey Lund CNA Body Position: weight shifting Taken 08/25/2025 1235 by Melina Currie, RN Skin Protection: protective footwear used Intervention: Prevent and Manage VTE (Venous Thromboembolism) Risk Flowsheets (Taken 08/26/2025624) VTE Prevention/Management: left SCDs (sequential compression devices) on medication Intervention: Prevent Infection Flowsheets (Taken 08/26/2025624) Infection Prevention: equipment surfaces disinfected hand hygiene promoted single patient room provided rest/sleep promoted Goal: Optimal Comfort and Wellbeing Outcome: Ongoing, Progressing Problem: Pain Acute Goal: Optimal Pain Control and Function Outcome: Ongoing, Progressing Intervention: Develop Pain Management Plan Flowsheets (Taken 08/26/2025624) Pain Management Interventions: pillow support provided position adjusted quiet environment facilitated rest Intervention: Prevent or Manage Pain Flowsheets Taken 08/26/2025624 by James Juan RN Sleep/Rest Enhancement: awakenings minimized Taken 08/25/20251234 by Melina Currie, RN Bowel Elimination Promotion: ambulation promoted Medication Review/Management: medications reviewed Problem: Surgery Nonspecified Goal: Absence of Bleeding Outcome: Ongoing, Progressing Goal: Effective Bowel Elimination Outcome: Ongoing, Progressing Goal: Fluid and Electrolyte Balance Outcome: Ongoing, Progressing Intervention: Monitor and Manage Fluid and Electrolyte Balance Flowsheets (Taken 08/25/2025 1235 by Melina Currie, RN) Fluid/Electrolyte Management: electrolyte-binding therapy initiated Goal: Blood Glucose Level Within Target Range Outcome: Ongoing, Progressing Intervention: Optimize Glycemic Control Flowsheets (Taken 08/25/2025 123 by Melina Currie, RN) Hyperglycemia Management: blood glucose monitored Hypoglycemia Management: blood glucose monitored Goal: Absence of Infection Signs and Symptoms Outcome: Ongoing, Progressing Goal: Optimal Pain Control and Function Outcome: Ongoing, Progressing Goal: Nausea and Vomiting Relief Outcome: Ongoing, Progressing Goal: Effective Urinary Elimination Outcome: Ongoing, Progressing Goal: Effective Oxygenation and Ventilation Outcome: Ongoing, Progressing Problem: Infection Goal: Absence of Infection Signs and Symptoms Outcome: Ongoing, Progressing Problem: Skin Injury Risk Increased Goal: Skin Health and Integrity Outcome: Ongoing, Progressing Problem: Fall Injury Risk Goal: Absence of Fall and Fall-Related Injury Outcome: Ongoing, Progressing Problem: Artificial Airway Goal: Effective Communication Outcome: Ongoing, Progressing * Care Plan - Melina Currie RN - 08/25/2025 12:37 PM EDT Problem: Adult Inpatient Plan of Care Goal: Plan of Care Review Outcome: Ongoing, Progressing Flowsheets (Taken 08/25/2025 1235) Progress: improving Plan of Care Reviewed With: patient Goal: Patient-Specific Goal (Individualized) Outcome: Ongoing, Progressing Flowsheets (Taken 08/25/2025 0700) Patient/Family-Specific Goals (Include Timeframe): patient will rate pain at a 4 or less throughoutshift Individualized Care Needs: pain control Anxieties, Fears or Concerns: pain Goal: Absence of Hospital-Acquired Illness or Injury Outcome: Ongoing, Progressing Intervention: Identify and Manage Fall Risk Flowsheets (Taken 08/25/2025 1235) Safety Promotion/Fall Prevention: safety round/check completed Intervention: Prevent Skin Injury Flowsheets (Taken 08/25/2025 1235) Body Position: side-lying Skin Protection: protective footwear used Intervention: Prevent and Manage VTE (Venous Thromboembolism) Risk Flowsheets (Taken 08/25/2025 1235) VTE Prevention/Management: SCDs (sequential compression devices) on Intervention: Prevent Infection Flowsheets (Taken 08/25/2025 1235) Infection Prevention: cohorting utilized environmental surveillance performed Goal: Optimal Comfort and Wellbeing Outcome: Ongoing, Progressing Problem: Pain Acute Goal: Optimal Pain Control and Function Outcome: Ongoing, Progressing Intervention: Develop Pain Management Plan Flowsheets (Taken 08/25/2025 1235) Pain Management Interventions: rest Intervention: Prevent or Manage Pain Flowsheets (Taken 08/25/2025 1235) Sensory Stimulation Regulation: auditory stimulation minimized Complementary Therapy: music therapy provided Bowel Elimination Promotion: ambulation promoted Sleep/Rest Enhancement: awakenings minimized Medication Review/Management: medications reviewed Problem: Surgery Nonspecified Goal: Absence of Bleeding Outcome: Ongoing, Progressing Intervention: Monitor and Manage Bleeding Flowsheets (Taken 08/25/2025 1235) Bleeding Management: dressing monitored Goal: Effective Bowel Elimination Outcome: Ongoing, Progressing Intervention: Enhance Bowel Motility and Elimination Flowsheets (Taken 08/25/2025 1235) Bowel Elimination Management: toileting offered Bowel Motility Enhancement: ambulation promoted Goal: Fluid and Electrolyte Balance Outcome: Ongoing, Progressing Intervention: Monitor and Manage Fluid and Electrolyte Balance Flowsheets (Taken 08/25/2025 1235) Fluid/Electrolyte Management: electrolyte-binding therapy initiated Goal: Blood Glucose Level Within Target Range Outcome: Ongoing, Progressing Intervention: Optimize Glycemic Control Flowsheets (Taken 08/25/2025 1235) Hyperglycemia Management: blood glucose monitored Hypoglycemia Management: blood glucose monitored Goal: Absence of Infection Signs and Symptoms Outcome: Ongoing, Progressing Intervention: Prevent or Manage Infection Flowsheets (Taken 08/25/2025 1235) Infection Management: aseptic technique maintained Fever Reduction/Comfort Measures: lightweight clothing Isolation Precautions: precautions maintained Goal: Optimal Pain Control and Function Outcome: Ongoing, Progressing Intervention: Prevent or Manage Pain Flowsheets (Taken 08/25/2025 1235) Pain Management Interventions: rest Complementary Therapy: music therapy provided Diversional Activities: smartphone Goal: Nausea and Vomiting Relief Outcome: Ongoing, Progressing Intervention: Prevent or Manage Nausea and Vomiting Flowsheets (Taken 08/25/2025 1235) Nausea/Vomiting Interventions: slow deep breathing encouraged Goal: Effective Urinary Elimination Outcome: Ongoing, Progressing Intervention: Monitor and Manage Urinary Retention Flowsheets (Taken 08/25/2025 1235) Urinary Elimination Promotion: frequent voiding encouraged Goal: Effective Oxygenation and Ventilation Outcome: Ongoing, Progressing Intervention: Optimize Oxygenation and Ventilation Flowsheets (Taken 08/25/2025 1235) Activity Management: activity adjusted per tolerance Airway/Ventilation Management: airway patency maintained Head of Bed (HOB) Positioning: HOB elevated Cough And Deep Breathing: done independently per patient Problem: Infection Goal: Absence of Infection Signs and Symptoms Outcome: Ongoing, Progressing Intervention: Prevent or Manage Infection Flowsheets (Taken 08/25/2025 1235) Infection Management: aseptic technique maintained Fever Reduction/Comfort Measures: lightweight clothing Isolation Precautions: precautions maintained Problem: Skin Injury Risk Increased Goal: Skin Health and Integrity Outcome: Ongoing, Progressing Intervention: Optimize Skin Protection Flowsheets (Taken 08/25/2025 1235) Activity Management: activity adjusted per tolerance Pressure Reduction Techniques: frequent weight shift encouraged Pressure Reduction Devices: pressure-redistributing mattress utilized Skin Protection: protective footwear used Head of Bed (HOB) Positioning: HOB elevated Intervention: Promote and Optimize Oral Intake Flowsheets (Taken 08/25/2025 1235) Oral Nutrition Promotion: physical activity promoted Nutrition Interventions: diet adjusted Problem: Fall Injury Risk Goal: Absence of Fall and Fall-Related Injury Outcome: Ongoing, Progressing Intervention: Identify and Manage Contributors Flowsheets (Taken 08/25/2025 1235) Medication Review/Management: medications reviewed Self-Care Promotion: independence encouraged Intervention: Promote Injury-Free Environment Flowsheets (Taken 08/25/2025 1235) Safety Promotion/Fall Prevention: safety round/check completed Problem: Artificial Airway Goal: Effective Communication Outcome: Ongoing, Progressing Intervention: Ensure Effective Communication Flowsheets (Taken 08/25/2025 1235) Trust Relationship/Rapport: care explained Diversional Activities: smartphone Family/Support System Care: self-care encouraged Communication Enhancement Strategies: call light answered in person * Progress Notes - Marcelino Laurent DMD - 08/25/2025 9:59 AM EDT Images from the original note were not included. Oral & Maxillofacial Surgery Progress Note 08/25/25 Carlito Perez [facility] Day: 7 Subjective HISTORY OF PRESENT ILLNESS Carlito Perez is a 54 y.o. 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 Procedure(s): 1) Left segmental mandibulectomy, left selective neck dissection, extraction of all remaining teeth, partial left glossectomy, tracheostomy creation with OMFS on 08/19/2025 2) Fibula free flap reconstruction with Plastic surgery on 08/19/2025 24 hr interval events : no BM, 5x unmeasured urine, NAEO, discussed barriers to DC with weekend CM Edited by: Marcleino Laurent DMD at 08/25/2025 0959 Objective Last Recorded Vitals Temp: [36.4 ??C (97.5 ??F)-37.1 ??C (98.8 ??F)] 36.6 ??C (97.8 ??F) Heart Rate: [75-92] 75 Resp: [16-20] 16 BP: (118-132)/(69-80) 120/70 Temp (24hrs), Av.8 ??C (98.2 ??F), Min:36.4 ??C (97.5 ??F), Max:37.1 ??C (98.8 ??F) Wt Readings from Last 1 Encounters: 08/19/25 87.1 kg (192 lb) PHYSICAL EXAMINATION GEN: NAD, resting comfortably. HEENT: Neck: soft, supple, minimally TTP. No fluctuant swellings noted. No evidence of hematoma. CHULA drain secured in place, holding sanguinous suction. 6-0 cuffed shiley trach secured in place with silk sutures. Nose: NG DHT in place. Intraoral: flap soft, warm, appropriate turgor, well-perfused, capillary refill <1 sec, hemostatic. CVS: Regular Rate, well perfused Pulm: Non-labored breathing on HTC 6-0 cuffed shiley trach secured in place with silk sutures. Neuro: 11T; Left CN V3 anesthetic. Otherwise, CN II-IV, , VIII-XII grossly intact. MSK: Elevated RLE with CAM boot in place; Mild, soft edema noted with TTP; WV holding suction. DP and TP pulses palpable. Psych: Appropriate for situation, pleasant. I/O: Intake/Output Summary (Last 24 hours) at 08/25/2025 0959 Last data filed at 08/25/2025 0620 Gross per 24 hour Intake 1410 ml Output 440 ml Net 970 ml LABORATORY CBC WBC ?? Hb ?? Plt ?? Hct ?? ANC ?? INR ??, PTT ??, Anti-Xa ?? BMP Na ?? Cl ?? BUN ?? Glu ?? K ?? Co2 ?? Cr ?? Ca ?? iCa ?? Mg ??, Phos ?? MICROBIOLOGY Results Procedure Component Value Units Date/Time Cecelia auris Surveillance by PCR [[id number]] (Normal) Collected: 08/19/252018 Order Status: Completed Specimen: Swab from Axilla and Groin Updated: 08/21/25 1033 Cecelia auris PCR Result Not Detected Narrative: This PCR assay was developed and its performance characteristics determined by [facility] as appropriate for clinical purposes. This assay has not been cleared or approved bythe FDA, but is performed in a CLIA regulated laboratory that is qualified to perform high-complexity testing. Multi Drug Resistance Test [[id number]] Collected: 08/19/252018 Order Status: Completed Specimen: Swab from Nares and Nini Rectal Updated: 08/21/25 0733 Culture No growth at day 1 Narrative: This test was developed and its performance characteristics determined by the [facility]. Although the media is FDA-approved, it is not FDA-approved for all specimen types submitted. The FDA has determined that such clearance or approval is not necessary. This test is used for surveillance purposes. It should not be regarded as investigational or for research. The [facility] is certified under the ClinicalLaboratory Improvement Amendments of 1988 (CLIA-88) as qualified to perform high complexity clinical laboratory testing. IMAGING No new imaging Assessment/Plan Carlito Perez is a 54 y.o. 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 #Left lateral Tongue and Floor of the mouth SCCa -s/p aforementioned procedures #Fibula Free Flap Reconstruction -Nothing around the neck -Unasyn DC -HOB elevated 30 degrees -Continue ASA for 30 days (DC 09/19/2025) and heparin -Continue ondansetron PRN for PONV prophylaxis -Continue esomeprazole -Continue Flap checks per plastic surgery -PTOT eval; appreciate recs -OOBTC 2x per day -CAM boot in place at all times -WBAT -Wound vac removal planned for 08/26/2025 -Skin graft planned for next week, date 08/28/2025 -Contact CM to ensure WV supplies #Dysphagia -Continue NPO -Continue TF -Isosource 1.5 291 mL bolus with 90 FW flush q4h -Reach out to CM to make sure tube feeds are ordered #Trach Dependent -Continue trach care -6-0 cuffed shiley -Tolerated deflation -downsize after 2nd procedure with PRS -Downsize to 6-0 chuffless shiley 08/29/2025 #Post operative Pain control -acetaminophen q6h -gabapentin 3 times per day -oxycodone panel q4h PRN #Post operative constipation -Continue polyethylene glycol -Continue Senna -Continue to monitor -added Milk of Mag PRN #Postoperative Urine Retention - Gr removed on 08/23/2025 - Able to void post removal #Hypothyroidism -Restarted home levothyroxine #GERD - Started on famotidine #CAD -Restarted home metoprolol #HTN -Continue to monitor #HLD -Restated home atorvastain #GAURANG Dispo: Continue Current Level of Care - Plan of care discussed with patient at bedside Marcelino Laurent DMD [facility] oil pit attendant PGY-1 Pager #: [phone] Cosigned by Alvaro Adrian DMD, MD at 08/26/2025 2:29 PM EDT Associated attestation - Alvaro Adrian DMD, MD - 08/26/2025 2:29 PM EDT Signature only. * Progress Notes - Yessenia Jung MD - 08/25/2025 9:16 AM EDT Subjective NAEO, afebrile, VSS. Did not get up to chair yesterday but plans to today. Feeling well this am. Tolerating tube feeds. No BM yet, passing flatus. CHULA 40 ml from 50 ml SS yesterday. WV with blockage alert and upon investigating, the tubing was found to be clamped for unknown period of time. Upon unclamping the tubing, the WV suctioned without issue and no leak appreciated. Objective Temp (24hrs), Av.8 ??C (98.2 ??F), Min:36.4 ??C (97.5 ??F), Max:37.1 ??C (98.8 ??F) Vitals: 08/25/25 0059 08/25/25 0310 08/25/25 0751 08/25/25 0819 BP: 129/75 120/70 BP Location: Right arm Right arm Patient Position: Lying Lying Pulse: 75 76 75 Resp: 18 18 16 16 Temp: 36.5 ??C (97.7 ??F) 36.6 ??C (97.8 ??F) TempSrc: Axillary Axillary SpO2: 95% Weight: Height: I O Shift I O 24Hrs No intake/output data recorded. I/O last 3 completed shifts: In: 4865 (55.9 mL/kg) [NG/GT:4865] Out: 500 (5.7 mL/kg) [Drains:500] Weight: 87.1 kg Patient Lines/Drains/Airways Status Active Active LDAs Name Placement date Placement time Site Days Peripheral IV 08/19/25 Right Antecubital 08/19/25 0704 Antecubital 6 Peripheral IV 08/19/25 Left Hand 08/19/25 0829 Hand 6 Peripheral IV 08/19/25 Left Foot 08/19/25 0935 Foot 6 Closed/Suction Drain Anterior;Right Neck Bulb 15 Fr. 08/19/25 1650 Neck 5 Surgical Airway Shiley Cuffed 6 08/19/25 1727 6 5 Feeding Tube Left nare 08/19/25 1759 Left nare 5 Negative Pressure Wound Therapy Leg Anterior;Lower;Right 08/19/25 1541 Leg 5 I have reviewed the active problem list, medication list, lab results, and imaging. Physical Exam HENT: Mouth/Throat: Mouth: Mucous membranes are moist. Comments: Intra-oral flap skin paddle well-perfused, strong doppler signal, incision c/d/i Neck: Comments: Neck soft, incision C/D/I with Nylons in place, JPX1 SS Pulmonary: Comments: On trach collar Abdominal: Palpations: Abdomen is soft. Musculoskeletal: Comments: RLE CAM boot in place, WV in place (now on suction after being unclamped), fires EHL/FHL Skin: General: Skin is warm. Capillary Refill: Capillary refill takes less than 2 seconds. Neurological: Mental Status: He is alert and oriented to person, place, and time. Psychiatric: Mood and Affect: Mood normal. Assessment/Plan Carlito Perez is a 54 y.o. 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 - Okay for OOBTC - CAM boot at all times, WBAT RLE - WV in place over right leg, will change at bedside on 08/26 - [id number] mg for 1 month - Recommend 5 days antibiotics postoperatively, completed - Continue tube feeds at goal - OMFS managing trach - SQH and SCDs for DVT ppx - Patient not appropriate for discharge at this time. Patient to remain inpatient until STSG which is scheduled for 08/28/25. - Plastic Surgery will continue to follow DVT ppx: SQH, SCDs Yessenia Jung MD Plastic & Reconstructive Surgery PGY-4 Pager [phone] Cosigned by Marvin Santana MD at 08/26/2025 8:10 AM EDT Associated attestation - Marvin Santana MD - 08/26/2025 8:10 AM EDT I discussed the case with the resident/fellow and agree with the findings and plan as documented. * Care Plan - Ck Perezny Sandy - 08/24/2025 8:08 PM EDT Problem: Adult Inpatient Plan of Care Goal: Plan of Care Review Outcome: Ongoing, Progressing Flowsheets Taken 08/24/2025 2004 by Shania Perez Progress: improving Outcome Evaluation: patient awake alert and oriented ambulating in room to restroom Taken 08/23/20252134 by Robert Wilson Plan of Care Reviewed With: patient Goal: Patient-Specific Goal (Individualized) Outcome: Ongoing, Progressing Goal: Absence of Hospital-Acquired Illness or Injury Outcome: Ongoing, Progressing Intervention: Identify and Manage Fall Risk Flowsheets (Taken 08/24/2025 0700 by Kathy Lund, RN) Safety Promotion/Fall Prevention: activity supervised assistive device/personal items within reach clutter-free environment maintained lighting adjusted fall prevention program maintained mobility aid in reach nonskid shoes/slippers when out of bed room organization consistent safety round/check completed toileting scheduled Intervention: Prevent Skin Injury Flowsheets Taken 08/24/20250 by Hailey Lund CNA Body Position: sitting up in bed weight shifting Taken 08/23/20252134 by Robert Wilson Skin Protection: transparent dressing maintained pulse oximeter probe site changed Intervention: Prevent and Manage VTE (Venous Thromboembolism) Risk Flowsheets (Taken 08/24/2025 1920 by Hailey Lund CNA) VTE Prevention/Management: left SCDs (sequential compression devices) on Intervention: Prevent Infection Flowsheets (Taken 08/21/2025 1734 by Juanita Vergara, RN) Infection Prevention: environmental surveillance performed equipment surfaces disinfected hand hygiene promoted personal protective equipment utilized rest/sleep promoted single patient room provided visitors restricted/screened Goal: Optimal Comfort and Wellbeing Outcome: Ongoing, Progressing Problem: Pain Acute Goal: Optimal Pain Control and Function Outcome: Ongoing, Progressing Intervention: Develop Pain Management Plan Flowsheets (Taken 08/24/2025 1303 by Kathy Lund, RN) Pain Management Interventions: medication (see MAR) Intervention: Prevent or Manage Pain Flowsheets Taken 08/24/20252003 by Shania Perez Sensory Stimulation Regulation: auditory stimulation minimized care clustered lighting decreased quiet environment promoted visual stimulation minimized Complementary Therapy: music therapy provided Bowel Elimination Promotion: ambulation promoted adequate fluid intake promoted privacy promoted Taken 08/23/20252134 by Robert Wilson Sleep/Rest Enhancement: awakenings minimized consistent schedule promoted regular sleep/rest pattern promoted noise level reduced Medication Review/Management: medications reviewed high-risk medications identified Problem: Surgery Nonspecified Goal: Absence of Bleeding Outcome: Ongoing, Progressing Intervention: Monitor and Manage Bleeding Flowsheets (Taken 08/23/20252134 by Robert Wilson) Bleeding Management: dressing monitored Goal: Effective Bowel Elimination Outcome: Ongoing, Progressing Intervention: Enhance Bowel Motility and Elimination Flowsheets Taken 08/23/20252134 by Robert Wilson Bowel Elimination Management: relaxation techniques promoted hygiene measures promoted adaptive equipment provided Taken 08/22/2025 0621 by Miya Al RN Bowel Motility Enhancement: ambulation promoted Goal: Fluid and Electrolyte Balance Outcome: Ongoing, Progressing Intervention: Monitor and Manage Fluid and Electrolyte Balance Flowsheets (Taken 08/23/20252134 by Robert Wilson) Fluid/Electrolyte Management: fluids provided electrolyte supplement initiated Goal: Blood Glucose Level Within Target Range Outcome: Ongoing, Progressing Intervention: Optimize Glycemic Control Flowsheets (Taken 08/23/20252134 by Robert Wilson) Hyperglycemia Management: blood glucose monitored Hypoglycemia Management: blood glucose monitored Goal: Absence of Infection Signs and Symptoms Outcome: Ongoing, Progressing Intervention: Prevent or Manage Infection Flowsheets Taken 08/24/2025 0700 by Kathy Lund RN Isolation Precautions: precautions maintained protective Taken 08/23/20252134 by Robert Wilson Infection Management: aseptic technique maintained Fever Reduction/Comfort Measures: lightweight bedding Goal: Optimal Pain Control and Function Outcome: Ongoing, Progressing Intervention: Prevent or Manage Pain Flowsheets Taken 08/24/20252003 by Shania Perez Complementary Therapy: music therapy provided Taken 08/24/2025 1303 by Kathy Lund technology integration specialist Interventions: medication (see MAR) Taken 08/23/20252134 by Robert Wilson Diversional Activities: smartphone television Goal: Nausea and Vomiting Relief Outcome: Ongoing, Progressing Intervention: Prevent or Manage Nausea and Vomiting Flowsheets (Taken 08/23/20252134 by Robert Wilson) Nausea/Vomiting Interventions: slow deep breathing encouraged Goal: Effective Urinary Elimination Outcome: Ongoing, Progressing Intervention: Monitor and Manage Urinary Retention Flowsheets (Taken 08/24/20252003) Urinary Elimination Promotion: frequent voiding encouraged toileting offered Goal: Effective Oxygenation and Ventilation Outcome: Ongoing, Progressing Intervention: Optimize Oxygenation and Ventilation Flowsheets Taken 08/24/20251919 by Hailey Lund CNA Activity Management: ambulated to bathroom back to bed Head of Bed (HOB) Positioning: HOB elevated Taken 08/23/20252134 by Robert Wilson Airway/Ventilation Management: airway patency maintained Taken 08/22/20251999 by Ron Hines RN Cough And Deep Breathing: done independently per patient Problem: Infection Goal: Absence of Infection Signs and Symptoms Outcome: Ongoing, Progressing Intervention: Prevent or Manage Infection Flowsheets Taken 08/24/2025 0700 by Kathy Lund RN Isolation Precautions: precautions maintained protective Taken 08/23/20252134 by Robert Wilson Infection Management: aseptic technique maintained Fever Reduction/Comfort Measures: lightweight bedding Problem: Skin Injury Risk Increased Goal: Skin Health and Integrity Outcome: Ongoing, Progressing Intervention: Optimize Skin Protection Flowsheets Taken 08/24/20251919 by Hailey Lund CNA Activity Management: ambulated to bathroom back to bed Head of Bed (HOB) Positioning: HOB elevated Taken 08/23/20252134 by Robert Wilson Skin Protection: transparent dressing maintained pulse oximeter probe site changed Taken 08/22/2025620 by Miya Al RN Pressure Reduction Devices: positioning supports utilized Taken 08/21/20251733 by Juanita Vergara RN Pressure Reduction Techniques: frequent weight shift encouraged Intervention: Promote and Optimize Oral Intake Flowsheets (Taken 08/23/20252134 by Robert Wilson) Oral Nutrition Promotion: rest periods promoted social interaction promoted Nutrition Interventions: diet adjusted Problem: Fall Injury Risk Goal: Absence of Fall and Fall-Related Injury Outcome: Ongoing, Progressing Intervention: Identify and Manage Contributors Flowsheets (Taken 08/23/20252134 by Robert Wilson) Medication Review/Management: medications reviewed high-risk medications identified Self-Care Promotion: independence encouraged Intervention: Promote Injury-Free Environment Flowsheets (Taken 08/24/2025 07 by Kathy Lund RN) Safety Promotion/Fall Prevention: activity supervised assistive device/personal items within reach clutter-free environment maintained lighting adjusted fall prevention program maintained mobility aid in reach nonskid shoes/slippers when out of bed room organization consistent safety round/check completed toileting scheduled * Progress Notes - Halie Ledezma RN - 08/24/2025 5:58 PM EDT Case Management Adult Progress Note Carlito Perez 54 y.o. male CSN: [id number] Admission: 08/19/2025 5:29 AM Primary Problem: Floor of mouth squamous cell carcinoma Anticipated Discharge Date: 08/26/25 Referral for trach supplies and a RW placed in [facility] Trach supply order will be reviewed on Tuesday08/26/25. Contact information for primary CM included in referral for [facility] to follow up on 08/26/25. Additional Comments Halie Ledezma RN * Progress Notes - Marcelino Laurent DMD - 08/24/2025 10:27 AM EDT Images from the original note were not included. Oral & Maxillofacial Surgery Progress Note 08/24/25 Carlito Perez [facility] Day: 6 Subjective HISTORY OF PRESENT ILLNESS Carlito Perez is a 54 y.o. 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 Procedure(s): 1) Left segmental mandibulectomy, left selective neck dissection, extraction of all remaining teeth, partial left glossectomy, tracheostomy creation with OMFS on 08/19/2025 2) Fibula free flap reconstruction with Plastic surgery on 08/19/2025 24 hr interval events : had BM 2100, pain in RLE 08/23 at 23:30 require .25 hydromorphone, tolerating tube feeds, afebrile, hymodynamically stable, NAD, tolerated cuff leak test Edited by: Marcelino Laurent DMD at 08/24/2025 1027 Objective Last Recorded Vitals Temp: [36.6 ??C (97.9 ??F)-36.9 ??C (98.5 ??F)] 36.7 ??C (98 ??F) Heart Rate: [76-104] 80 Resp: [15-18] 18 BP: (107-128)/(67-79) 128/75 FiO2 (%): [28 %] 28 % Temp (24hrs), Av.8 ??C (98.2 ??F), Min:36.6 ??C (97.9 ??F), Max:36.9 ??C (98.5 ??F) Wt Readings from Last 1 Encounters: 08/19/25 87.1 kg (192 lb) PHYSICAL EXAMINATION GEN: NAD, resting comfortably. HEENT: Neck: soft, supple, minimally TTP. No fluctuant swellings noted. No evidence of hematoma. CHULA drain secured in place, holding sanguinous suction. 6-0 cuffed shiley trach secured in place with silk sutures. Nose: NG DHT in place. Intraoral: flap soft, warm, appropriate turgor, well-perfused, capillary refill <1 sec, hemostatic. CVS: Regular Rate, well perfused Pulm: Non-labored breathing on HTC 6-0 cuffed shiley trach secured in place with silk sutures. Neuro: 11T; Left CN V3 anesthetic. Otherwise, CN II-IV, , VIII-XII grossly intact. MSK: Elevated RLE with CAM boot in place; Mild, soft edema noted with TTP; WV holding suction. DP and TP pulses palpable. Hematoma noted on inferior portion of RLE wound wac Psych: Appropriate for situation, pleasant. I/O: Intake/Output Summary (Last 24 hours) at 08/24/2025 1027 Last data filed at 08/24/2025 0700 Gross per 24 hour Intake 3105 ml Output 60 ml Net 3045 ml LABORATORY CBC WBC 10.15 Hb 9.1 (L) Plt 381 (H) Hct 27.7 (L) ANC ?? INR ??, PTT ??, Anti-Xa ?? BMP Na 137 Cl 101 BUN 17 Glu 107 (H) K 3.9 Co2 27 Cr 0.59 (L) Ca 8.8 (L) iCa ?? Mg 2.0, Phos 3.7 MICROBIOLOGY Results Procedure Component Value Units Date/Time Cecelia auris Surveillance by PCR [[id number]] (Normal) Collected: 08/19/252018 Order Status: Completed Specimen: Swab from Axilla and Groin Updated: 08/21/25 1033 Cecelia auris PCR Result Not Detected Narrative: This PCR assay was developed and its performance characteristics determined by [facility] as appropriate for clinical purposes. This assay has not been cleared or approved bythe FDA, but is performed in a CLIA regulated laboratory that is qualified to perform high-complexity testing. Multi Drug Resistance Test [[id number]] Collected: 08/19/252018 Order Status: Completed Specimen: Swab from Nares and Nini Rectal Updated: 08/21/25 0733 Culture No growth at day 1 Narrative: This test was developed and its performance characteristics determined by the [facility]. Although the media is FDA-approved, it is not FDA-approved for all specimen types submitted. The FDA has determined that such clearance or approval is not necessary. This test is used for surveillance purposes. It should not be regarded as investigational or for research. The [facility] is certified under the ClinicalLaboratory Improvement Amendments of 1988 (CLIA-88) as qualified to perform high complexity clinical laboratory testing. IMAGING No new imaging Assessment/Plan Carlito Perez is a 54 y.o. 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 #Left lateral Tongue and Floor of the mouth SCCa -s/p aforementioned procedures #Fibula Free Flap Reconstruction -Nothing around the neck -Unasyn DC -HOB elevated 30 degrees -Continue ASA for 30 days (DC 09/19/2025) and heparin -Continue ondansetron PRN for PONV prophylaxis -Continue esomeprazole -Continue Flap checks per plastic surgery -PTOT eval; appreciate recs -OOBTC 2x per day -CAM boot in place at all times -WBAT -Wound vac removal planned for 08/26/2025 -Skin graft planned for next week, date 08/28/2025 #Dysphagia -Continue NPO -Continue TF -Isosource 1.5 291 mL bolus with 90 FW flush q4h #Trach Dependent -Continue trach care -6-0 cuffed shiley -Trial deflating cuff today 08/23 -Plan to downsize after 2nd procedure with PRS #Post operative Pain control -acetaminophen q6h -gabapentin 3 times per day -oxycodone panel q4h PRN #Post operative constipation -Continue polyethylene glycol -Senna -Continue to monitor #Postoperative Urine Retention - Gr removed on 08/23/2025 - Able to void post removal #Hypothyroidism -Restarted home levothyroxine #GERD - Started on famotidine #CAD -Restarted home metoprolol #HTN -Continue to monitor #HLD -Restated home atorvastain #GAURANG Dispo: Continue Current Level of Care - Plan of care discussed with patient at bedside Marcelino Laurent DMD [facility] oil pit attendant PGY-1 Pager #: [phone] Cosigned by Alvaro Adrian DMD, MD at 08/26/2025 2:28 PM EDT Associated attestation - Alvaro Adrian DMD, MD - 08/26/2025 2:28 PM EDT Signature only. * Progress Notes - Daniel Velazquez MD - 08/24/2025 9:41 AM EDT HAKAN Progress Note 08/24/2025 Subjective NAEO, afebrile, VSS. Got up to chair yesterday. Feeling well this am in good spirits. Tolerating tube feeds. Neck CHULA 60 ml SS from 50 yesterday. WV RLE holding suction. Bowel movement today. Urinating without gr. Objective Temp (24hrs), Av.8 ??C (98.2 ??F), Min:36.6 ??C (97.9 ??F), Max:36.9 ??C (98.5 ??F) Vitals: 08/24/25 0333 08/24/25 0424 08/24/25 0804 08/24/25 0833 BP: 125/79 128/75 BP Location: Left arm Left arm Patient Position: Lying Lying Pulse: 104 83 80 Resp: 17 18 Temp: 36.7 ??C (98.1 ??F) 36.7 ??C (98 ??F) TempSrc: Axillary Oral SpO2: 96% 92% 94% 93% Weight: Height: O2 Delivery Method: Humidified trach collar FiO2 (%): 28 % I O Shift I O 24Hrs No intake/output data recorded. I/O last 3 completed shifts: In: 3195 (36.7 mL/kg) [NG/GT:3195] Out: 1210 (13.9 mL/kg) [Urine:1100 (0.4 mL/kg/hr); Drains:110] Weight: 87.1 kg Patient Lines/Drains/Airways Status Active Active LDAs Name Placement date Placement time Site Days Peripheral IV 08/19/25 Right Antecubital 08/19/25 0704 Antecubital 5 Peripheral IV 08/19/25 Left Hand 08/19/25 0829 Hand 5 Peripheral IV 08/19/25 Left Foot 08/19/25 0935 Foot 5 Closed/Suction Drain Anterior;Right Neck Bulb 15 Fr. 08/19/25 1650 Neck 4 Surgical Airway Shiley Cuffed 6 08/19/25 1727 6 4 Feeding Tube Left nare 08/19/25 1759 Left nare 4 Negative Pressure Wound Therapy Leg Anterior;Lower;Right 08/19/25 1541 Leg 4 I have reviewed the active problem list, medication list, lab results, and imaging. Physical Exam HENT: Mouth/Throat: Mouth: Mucous membranes are moist. Comments: Intra-oral flap skin paddle well-perfused, strong doppler signal, incision c/d/i Neck: Comments: Neck soft, incision C/D/I with Nylons in place, JPX1 SS (left neck) No area induration Pulmonary: Comments: On trach collar Abdominal: Palpations: Abdomen is soft. Musculoskeletal: Comments: RLE CAM boot in place, WV holding suction, fires EHL/FHL Skin: General: Skin is warm. Capillary Refill: Capillary refill takes less than 2 seconds. Neurological: Mental Status: He is alert and oriented to person, place, and time. Psychiatric: Mood and Affect: Mood normal. Assessment/Plan Carlito Perez is a 54 y.o. 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 AFVSS on trach collar. Replaced lower portion WV clear film with evacuation of old clot; RLE hemostatic and WV holding suction. Recovering appropriately. Flap well perfused. Donor site healing appropriately. - Okay for OOBTC - CAM boot at all times, WBAT - WV in place over right leg, will change at bedside on 08/26 - [id number] mg for 1 month - Recommend 5 days antibiotics postoperatively - Continue tube feeds at goal - OMFS managing trach - SQH and SCDs for DVT ppx - Patient not appropriate for discharge at this time. Patient to remain inpatient until STSG which is scheduled for 08/28/25. - Plastic Surgery will continue to follow DVT ppx: SQH, SCDs Daniel Velazquez MD Plastic & Reconstructive Surgery PGY-2 Cosigned by Marvin Santana MD at 08/24/2025 5:52 PM EDT Associated attestation - Marvin Santana MD - 08/24/2025 5:52 PM EDT I discussed the case with the resident/fellow and agree with the findings and plan as documented. * Care Plan - Kathy Lund RN - 08/24/2025 7:51 AM EDT Problem: Adult Inpatient Plan of Care Goal: Plan of Care Review Outcome: Ongoing, Progressing Flowsheets Taken 08/23/20252134 by Robert Wilson Progress: improving Plan of Care Reviewed With: patient Taken 08/22/2025 0621 by Miya Al RN Outcome Evaluation: Pt resting in bed with sister at bedside. Goal: Patient-Specific Goal (Individualized) Outcome: Ongoing, Progressing Flowsheets (Taken 08/24/2025699) Patient/Family-Specific Goals (Include Timeframe): patient will remain fall free this shift Individualized Care Needs: pain Anxieties, Fears or Concerns: pain Goal: Absence of Hospital-Acquired Illness or Injury Outcome: Ongoing, Progressing Intervention: Identify and Manage Fall Risk Flowsheets (Taken 08/24/2025699) Safety Promotion/Fall Prevention: activity supervised assistive device/personal items within reach clutter-free environment maintained lighting adjusted fall prevention program maintained mobility aid in reach nonskid shoes/slippers when out of bed room organization consistent safety round/check completed toileting scheduled Intervention: Prevent Skin Injury Flowsheets Taken 08/24/2025699 by Kathy Lund RN Body Position: weight shifting Taken 08/23/20252134 by Robert Wilson Skin Protection: transparent dressing maintained pulse oximeter probe site changed Intervention: Prevent and Manage VTE (Venous Thromboembolism) Risk Flowsheets (Taken 08/24/2025699) VTE Prevention/Management: bilateral SCDs (sequential compression devices) on Intervention: Prevent Infection Flowsheets (Taken 08/21/20251733 by Juanita Vergara, RENATO) Infection Prevention: environmental surveillance performed equipment surfaces disinfected hand hygiene promoted personal protective equipment utilized rest/sleep promoted single patient room provided visitors restricted/screened Goal: Optimal Comfort and Wellbeing Outcome: Ongoing, Progressing * Care Plan - Robert Wilson - 08/23/2025 9:41 PM EDT Problem: Adult Inpatient Plan of Care Goal: Plan of Care Review Outcome: Ongoing, Progressing Flowsheets Taken 08/23/20252134 by Robert Wilson Progress: improving Plan of Care Reviewed With: patient Taken 08/22/2025620 by Miya Al, RN Outcome Evaluation: Pt resting in bed with sister at bedside. Goal: Patient-Specific Goal (Individualized) Outcome: Ongoing, Progressing Flowsheets (Taken 08/23/20251999) Patient/Family-Specific Goals (Include Timeframe): pt will verbalize controlled pain levels throughout this shift. Individualized Care Needs: pain control Anxieties, Fears or Concerns: pain Goal: Absence of Hospital-Acquired Illness or Injury Outcome: Ongoing, Progressing Intervention: Identify and Manage Fall Risk Flowsheets (Taken 08/23/20251999) Safety Promotion/Fall Prevention: activity supervised room organization consistent safety round/check completed nonskid shoes/slippers when out of bed lighting adjusted fall prevention program maintained assistive device/personal items within reach clutter-free environment maintained Intervention: Prevent Skin Injury Flowsheets Taken 08/23/20252134 Skin Protection: transparent dressing maintained pulse oximeter probe site changed Taken 08/23/20251999 Body Position: weight shifting education provided Intervention: Prevent and Manage VTE (Venous Thromboembolism) Risk Flowsheets (Taken 08/23/20252134) VTE Prevention/Management: SCDs (sequential compression devices) on medication Intervention: Prevent Infection Flowsheets (Taken 08/21/2025 1734 by Juanita Vergara RN) Infection Prevention: environmental surveillance performed equipment surfaces disinfected hand hygiene promoted personal protective equipment utilized rest/sleep promoted single patient room provided visitors restricted/screened Goal: Optimal Comfort and Wellbeing Outcome: Ongoing, Progressing Problem: Pain Acute Goal: Optimal Pain Control and Function Outcome: Ongoing, Progressing Intervention: Develop Pain Management Plan Flowsheets (Taken 08/23/20252025) Pain Management Interventions: medication (see MAR) Intervention: Prevent or Manage Pain Flowsheets (Taken 08/23/20252134) Bowel Elimination Promotion: privacy promoted Sleep/Rest Enhancement: awakenings minimized consistent schedule promoted regular sleep/rest pattern promoted noise level reduced Medication Review/Management: medications reviewed high-risk medications identified Problem: Surgery Nonspecified Goal: Absence of Bleeding Outcome: Ongoing, Progressing Intervention: Monitor and Manage Bleeding Flowsheets (Taken 08/23/20252134) Bleeding Management: dressing monitored Goal: Effective Bowel Elimination Outcome: Ongoing, Progressing Intervention: Enhance Bowel Motility and Elimination Flowsheets (Taken 08/23/20252134) Bowel Elimination Management: relaxation techniques promoted hygiene measures promoted adaptive equipment provided Goal: Fluid and Electrolyte Balance Outcome: Ongoing, Progressing Intervention: Monitor and Manage Fluid and Electrolyte Balance Flowsheets (Taken 08/23/20252134) Fluid/Electrolyte Management: fluids provided electrolyte supplement initiated Goal: Blood Glucose Level Within Target Range Outcome: Ongoing, Progressing Intervention: Optimize Glycemic Control Flowsheets (Taken 08/23/20252134) Hyperglycemia Management: blood glucose monitored Hypoglycemia Management: blood glucose monitored Goal: Absence of Infection Signs and Symptoms Outcome: Ongoing, Progressing Intervention: Prevent or Manage Infection Flowsheets (Taken 08/23/20252134) Infection Management: aseptic technique maintained Fever Reduction/Comfort Measures: lightweight bedding Isolation Precautions: precautions maintained Goal: Optimal Pain Control and Function Outcome: Ongoing, Progressing Intervention: Prevent or Manage Pain Flowsheets Taken 08/23/20252134 Diversional Activities: smartphone television Taken 08/23/20252025 Pain Management Interventions: medication (see MAR) Goal: Nausea and Vomiting Relief Outcome: Ongoing, Progressing Intervention: Prevent or Manage Nausea and Vomiting Flowsheets (Taken 08/23/20252134) Nausea/Vomiting Interventions: slow deep breathing encouraged Goal: Effective Urinary Elimination Outcome: Ongoing, Progressing Intervention: Monitor and Manage Urinary Retention Flowsheets (Taken 08/23/20252134) Urinary Elimination Promotion: catheter patency maintained Goal: Effective Oxygenation and Ventilation Outcome: Ongoing, Progressing Intervention: Optimize Oxygenation and Ventilation Flowsheets (Taken 08/23/20252134) Activity Management: activity adjusted per tolerance Airway/Ventilation Management: airway patency maintained Head of Bed (HOB) Positioning: HOB elevated Problem: Infection Goal: Absence of Infection Signs and Symptoms Outcome: Ongoing, Progressing Intervention: Prevent or Manage Infection Flowsheets (Taken 08/23/20252134) Infection Management: aseptic technique maintained Fever Reduction/Comfort Measures: lightweight bedding Isolation Precautions: precautions maintained Problem: Skin Injury Risk Increased Goal: Skin Health and Integrity Outcome: Ongoing, Progressing Intervention: Optimize Skin Protection Flowsheets (Taken 08/23/20252134) Activity Management: activity adjusted per tolerance Skin Protection: transparent dressing maintained pulse oximeter probe site changed Head of Bed (HOB) Positioning: HOB elevated Intervention: Promote and Optimize Oral Intake Flowsheets (Taken 08/23/20252134) Oral Nutrition Promotion: rest periods promoted social interaction promoted Nutrition Interventions: diet adjusted Problem: Fall Injury Risk Goal: Absence of Fall and Fall-Related Injury Outcome: Ongoing, Progressing Intervention: Identify and Manage Contributors Flowsheets (Taken 08/23/20252134) Medication Review/Management: medications reviewed high-risk medications identified Self-Care Promotion: independence encouraged Intervention: Promote Injury-Free Environment Flowsheets (Taken 08/23/20251999) Safety Promotion/Fall Prevention: activity supervised room organization consistent safety round/check completed nonskid shoes/slippers when out of bed lighting adjusted fall prevention program maintained assistive device/personal items within reach clutter-free environment maintained * Consults - Brenda Daniels RD - 08/23/2025 3:42 PM EDT Adult Nutrition Evaluation Note Carlito Perez 54 y.o. male CSN: [id number] Room/Bed 128/128A Nutrition evaluation type: follow-up Reason for evaluation: Hospital course: 54 y o M with SCC of left mandibular gingiva and left anterior tongue; admitted 08/19/25 s/p OR withplan noted for Left mandibular reconstruction with free fibula flap,left segmental mandibulectomy, neck dissection, partial glossectomy, extraction of all remaining teeth, DL with Bx, & trach creation. TF has been transitioned to bolus regimen. Past medical/ surgical history: Past Medical History[1] Surgical History[2] Social history: Social History[3] Additional comments: 08/19: Pt in OR location at time of consult & assessment. 08/23: Changed to bolus regimen yesterday. Vitals and Basic Assessment: BP: 107/67 Temp: 36.6 ??C (97.9 ??F) Oxygen Therapy: None (Room air) O2 Delivery Method: Humidified trach collar Gall[place] Coma Scale Score: 15 Dex Scale Score: 19 Virgilio/Cubbin Pressure Risk Score: 41 Most Recent BM Date: ([employer]) Skin: wound vac, right pretibial surgical wound, mid neck surgical wound, mouth surgical wound Allergies: Fish, Shellfish Medications: Current Scheduled Medications[4] Current Continuous Medications[5] Current PRN Medications[6] Labs: Results from last 7 days Lab Units 08/23/25 0326 08/22/25 0502 08/20/25 0556 WBC 10*3/uL 10. 11.20* 16.03* HEMOGLOBIN g/dL 9.5* 9.8* 10.8* HEMATOCRIT % 29.1* 29.6* 31.2* PLATELETS 10*3/uL 326 271 290 Results from last 7 days Lab Units 08/23/25 0326 08/22/25 0502 08/20/25 0556 SODIUM mmol/L 137 139 136 POTASSIUM mmol/L 4.0 3.8 5.2* CHLORIDE mmol/L 102 102 101 CO2 mmol/L BUN mg/dL 15 15 16 CREATININE mg/dL 0.58* 0.52* 0.64* EGFR mL/min/1.73m*2 117.3 121.3 113.9 GLUCOSE mg/dL 100* 95 140* CALCIUM mg/dL 8.7* 8.8* 8.6* PHOSPHORUS mg/dL 3.3 3.1 3.2 Magnesium, Plasma Date Value Ref Range Status 08/23/2025 2.0 1.9 - 2.4 mg/dL Final Lab Results Component Value Date ALT 19 07/25/2025 AST 28 07/25/2025 ALKPHOS 55 07/25/2025 BILITOT 0.3 07/25/2025 Lab Results Component Value Date ALBUMIN 4.4 07/25/2025 No results found for: PREALBUMIN No results found for: CRP No results found for: HGBA1C No results found for: CHOL No results found for: HDL No results found for: LDLCALC No results found for: TRIG Anthropometrics: Height: 180.3 cm Weight: 87.1 kg IBW: 78.2 kg %IBW: 111.4 Adjusted Body Weight: N/A BMI: 26.8 Wt evaluation: Overweight Weight History: Wt Readings from Last 30 Encounters: 08/19/25 87.1 kg (192 lb) 08/09/25 90.5 kg (199 lb 8.3 oz) 07/30/25 94.3 kg (207 lb 14.3 oz) 07/25/25 94.2 kg (207 lb 10.8 oz) 07/25/25 94.1 kg (207 lb 7.3 oz) 07/09/25 95 kg (209 lb 7 oz) 07/04/25 94.4 kg (208 lb 1.8 oz) 07/04/25 94.4 kg (208 lb 1.8 oz) 07/01/25 94.2 kg (207 lb 10.8 oz) 06/28/25 93.7 kg (206 lb 9.1 oz) 06/25/25 96.1 kg (211 lb 13.8 oz) 04/14/23 97.5 kg (215 lb) Wt change: 7.4% loss / 1 month (severe), 10.7% loss / 4 months Estimated Needs: Kcal: 30-35 kcal/kg (5294-9571 kcal/d) Protein: 1.5-1.8 g/kg (131-157 g/d) Based on: Current wt (87.1 kg) Current Nutrition Intake: Diet: NPO Nutrition Support: Feeding route: NGT Active enteral regimen: Isosource 1.5 (291 mL) x 6x/d (1746 mL/d) Provides: 2619 kcal, 119 g Pro, 1334 mL FW/d Avg enteral infusion: not well documented in flow sheets - continue to monitor Diet Experience & Nutrition History: Diet Education: Will monitor Pertinent Home Medications: Lipitor, Prilosec Nutrition Focused Physical Exam: Physical exam performed on (date): pending Assessment of Malnutrition: Nutrition Problem: Inadequate oral intake related to need for OR as evidenced by NPO status, anticipated need for TF to provide nutrition. Status of Nutrition Diagnosis: Ongoing Nutrition Interventions and Recommendations: NPO Inpatient continuous TF rec: Isosource 1.5 with goal rate of 85 ml/hr (1870 ml/day) Provides: 2805 kcal, 127 g protein, 329g CHO, 28g fiber, 110g fat, 1421 ml water, and 187% RDIs vit/min FW management per team at this time Inpatient / Discharge bolus TF rec: Isosource 1.7, goal of 7 cartons/d (1750 mL/d) Provides: 2625 kcal, 119 g Pro, 1337 mL FW/d FW: recommend 90 mL FW flushes before and after each bolus Recommend weekly weight monitoring Nutrition Monitoring and Goals: -Monitor tolerance and adequacy of enteral infusion, wt changes, bowel fxn, labs, skin integrity; and follow up per acuity -Avg >80% goal enteral volume daily (ongoing) Acuity Level: 4 Brenda Daniels, JOAN, LD [1] Past Medical History: Diagnosis Date Adverse effect of anesthesia allergy to shellfish, penicillan CAD (coronary artery disease) Cancer ([facility]) [id number] Coronary artery calcification Dental disease chipped teeth, jony block for vocal chord damage Fractures clavical surgery GERD (gastroesophageal reflux disease) 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 HLD (hyperlipidemia) HTN (hypertension) Hypothyroidism Reflux gastritis Substance abuse 1988 [2] Past Surgical History: Procedure Laterality Date APPENDECTOMY 1979 CARDIOTHORACIC PROCEDURE stents CAROTID STENT 04/26/2023 COLONOSCOPY 2023 CORONARY STENT PLACEMENT [id number] ORTHOPEDIC SURGERY repair to clavical OTHER SURGICAL HISTORY appendectomy, vasectomy THROAT SURGERY repair vocal chords [3] Social History Tobacco Use Smoking status: Every Day Current packs/day: 1.00 Average packs/day: 1 pack/day for 40.8 years (40.8 ttl pk-yrs) Types: Cigarettes Start date: 1984 Passive exposure: Current Smokeless tobacco: Former Types: Snuff, Chew Vaping Use Vaping status: Never Used Substance Use Topics Alcohol use: Never Drug use: Never [4] acetaminophen, 1,000 mg, Nasogastric, q6h JOVANNI ampicillin-sulbactam, 3 g, Intravenous, q6h aspirin, 324 mg, Nasogastric, Daily atorvastatin, 20 mg, Nasogastric, Daily bacitracin, 1 Jar, Topical, Daily esomeprazole, 40 mg, Nasogastric, Daily famotidine, 20 mg, Nasogastric, BID gabapentin, 300 mg, Nasogastric, TID heparin (porcine), 5,000 Units, Subcutaneous, q8h JOVANNI levothyroxine, 50 mcg, Nasogastric, q AM magnesium hydroxide, 30 mL, Nasogastric, Once metoprolol tartrate, 12.5 mg, Nasogastric, BID mupirocin, 1 Application, Each Nostril, BID polyethylene glycol, 17 g, Nasogastric, BID senna, 8.6 mg, Nasogastric, BID [5] [6] PRN medications: [DISCONTINUED] ondansetron ODT OR ondansetron OR ondansetron, oxyCODONE OR oxyCODONE, sodium chloride * Progress Notes - Cynthia Sands RN - 08/23/2025 12:21 PM EDT Referral for enterals-TF sent to [facility] via [facility], pending final recs from RD. * Care Plan - Luna White RN - 08/23/2025 7:27 AM EDT Problem: Adult Inpatient Plan of Care Goal: Plan of Care Review Outcome: Ongoing, Progressing Flowsheets Taken 08/21/20251733 by Juanita Vergara RN Progress: improving Taken 08/19/20252242 by Nely Cardoza RN Plan of Care Reviewed With: patient Goal: Patient-Specific Goal (Individualized) Outcome: Ongoing, Progressing Goal: Absence of Hospital-Acquired Illness or Injury Outcome: Ongoing, Progressing Intervention: Identify and Manage Fall Risk Flowsheets (Taken 08/22/20251999 by Ron Hines RN) Safety Promotion/Fall Prevention: activity supervised assistive device/personal items within reach clutter-free environment maintained fall prevention program maintained lighting adjusted mobility aid in reach nonskid shoes/slippers when out of bed room organization consistent safety round/check completed toileting scheduled Intervention: Prevent Skin Injury Flowsheets Taken 08/23/2025 0600 by Ron Hines RN Body Position: weight shifting Taken 08/21/20251733 by Juanita Vergara RN Skin Protection: transparent dressing maintained pulse oximeter probe site changed incontinence pads utilized Intervention: Prevent and Manage VTE (Venous Thromboembolism) Risk Flowsheets (Taken 08/21/20251733 by Juanita Vergara, RN) VTE Prevention/Management: SCDs (sequential compression devices) on medication Intervention: Prevent Infection Flowsheets (Taken 08/21/20251733 by Juanita Vergara RN) Infection Prevention: environmental surveillance performed equipment surfaces disinfected hand hygiene promoted personal protective equipment utilized rest/sleep promoted single patient room provided visitors restricted/screened Goal: Optimal Comfort and Wellbeing Outcome: Ongoing, Progressing Problem: Pain Acute Goal: Optimal Pain Control and Function Outcome: Ongoing, Progressing Intervention: Prevent or Manage Pain Flowsheets Taken 08/22/20252226 by Ron Hines RN Sleep/Rest Enhancement: awakenings minimized regular sleep/rest pattern promoted relaxation techniques promoted Taken 08/20/20251818 by Lizy Amador Sensory Stimulation Regulation: auditory stimulation minimized care clustered Bowel Elimination Promotion: privacy promoted Medication Review/Management: medications reviewed high-risk medications identified Problem: Surgery Nonspecified Goal: Absence of Bleeding Outcome: Ongoing, Progressing Intervention: Monitor and Manage Bleeding Flowsheets (Taken 08/21/20251733 by Juanita Vergara RN) Bleeding Management: dressing monitored Goal: Effective Bowel Elimination Outcome: Ongoing, Progressing Intervention: Enhance Bowel Motility and Elimination Flowsheets Taken 08/22/2025620 by Miya Al RN Bowel Motility Enhancement: ambulation promoted Taken 08/21/20251733 by Juanita Vergara RN Bowel Elimination Management: relaxation techniques promoted sitting position facilitated Goal: Fluid and Electrolyte Balance Outcome: Ongoing, Progressing Intervention: Monitor and Manage Fluid and Electrolyte Balance Flowsheets (Taken 08/21/20251733 by Juanita Vergara RN) Fluid/Electrolyte Management: fluids provided fluids adjusted Goal: Blood Glucose Level Within Target Range Outcome: Ongoing, Progressing Intervention: Optimize Glycemic Control Flowsheets (Taken 08/21/20251733 by Juanita Vergara RN) Hyperglycemia Management: blood glucose monitored Hypoglycemia Management: blood glucose monitored Goal: Absence of Infection Signs and Symptoms Outcome: Ongoing, Progressing Intervention: Prevent or Manage Infection Flowsheets Taken 08/23/202515 by Luna White RN Isolation Precautions: precautions maintained Taken 08/21/20251733 by Juanita Vergara RN Infection Management: aseptic technique maintained Fever Reduction/Comfort Measures: lightweight bedding lightweight clothing Goal: Optimal Pain Control and Function Outcome: Ongoing, Progressing Intervention: Prevent or Manage Pain Flowsheets (Taken 08/21/20251733 by Juanita Vergara RN) Diversional Activities: television smartphone Goal: Nausea and Vomiting Relief Outcome: Ongoing, Progressing Intervention: Prevent or Manage Nausea and Vomiting Flowsheets (Taken 08/21/20251733 by Juanita Vergara RN) Nausea/Vomiting Interventions: slow deep breathing encouraged Goal: Effective Urinary Elimination Outcome: Ongoing, Progressing Intervention: Monitor and Manage Urinary Retention Flowsheets (Taken 08/22/2025620 by Miya Al RN) Urinary Elimination Promotion: catheter patency maintained Goal: Effective Oxygenation and Ventilation Outcome: Ongoing, Progressing Intervention: Optimize Oxygenation and Ventilation Flowsheets Taken 08/23/2025 0600 by Ron Hines RN Head of Bed ([facility]) Positioning: HOB elevated Taken 08/22/20251999 by Ron Hines RN Activity Management: activity adjusted per tolerance Cough And Deep Breathing: done independently per patient Taken 08/21/20251733 by Juanita Vergara RN Airway/Ventilation Management: airway patency maintained oxygen therapy provided Problem: Infection Goal: Absence of Infection Signs and Symptoms Outcome: Ongoing, Progressing Intervention: Prevent or Manage Infection Flowsheets Taken 08/23/2025 0715 by Luna White RN Isolation Precautions: precautions maintained Taken 08/21/20251733 by Juanita Vergara RN Infection Management: aseptic technique maintained Fever Reduction/Comfort Measures: lightweight bedding lightweight clothing Problem: Skin Injury Risk Increased Goal: Skin Health and Integrity Outcome: Ongoing, Progressing Intervention: Optimize Skin Protection Flowsheets Taken 08/23/2025 0600 by Ron Hines RN Head of Bed (HOB) Positioning: HOB elevated Taken 08/22/20251999 by Ron Hines RN Activity Management: activity adjusted per tolerance Taken 08/22/2025 0621 by Miya Al RN Pressure Reduction Devices: positioning supports utilized Taken 08/21/20251733 by Juanita Vergara RN Pressure Reduction Techniques: frequent weight shift encouraged Skin Protection: transparent dressing maintained pulse oximeter probe site changed incontinence pads utilized Intervention: Promote and Optimize Oral Intake Flowsheets (Taken 08/21/20251733 by Juanita Vergara RN) Oral Nutrition Promotion: rest periods promoted social interaction promoted Nutrition Interventions: diet adjusted Problem: Fall Injury Risk Goal: Absence of Fall and Fall-Related Injury Outcome: Ongoing, Progressing Intervention: Identify and Manage Contributors Flowsheets Taken 08/23/2025 0725 by Luna White RN Self-Care Promotion: independence encouraged Taken 08/20/20251818 by Lizy Amador Medication Review/Management: medications reviewed high-risk medications identified Intervention: Promote Injury-Free Environment Flowsheets (Taken 08/22/20251999 by Ron Hines RN) Safety Promotion/Fall Prevention: activity supervised assistive device/personal items within reach clutter-free environment maintained fall prevention program maintained lighting adjusted mobility aid in reach nonskid shoes/slippers when out of bed room organization consistent safety round/check completed toileting scheduled * Progress Notes - Yessenia Jung MD - 08/23/2025 6:25 AM EDT Subjective NAEO, afebrile, VSS. Got up to chair yesterday. Feeling well this am. Tolerating tube feeds. CHULA 50 ml SS from 80 yesterday. Objective Temp (24hrs), Av ??C (98.6 ??F), Min:36.6 ??C (97.9 ??F), Max:37.5 ??C (99.5 ??F) Vitals: 08/23/25 0304 08/23/25 0344 08/23/25 0927 08/23/25 1305 BP: 116/73 114/71 107/67 BP Location: Patient Position: Pulse: 78 79 76 76 Resp: 16 Temp: 37.1 ??C (98.8 ??F) 36.8 ??C (98.3 ??F) 36.6 ??C (97.9 ??F) TempSrc: Oral SpO2: 95% 96% 90% Weight: Height: O2 Delivery Method: Humidified trach collar FiO2 (%): 28 % I O Shift I O 24Hrs No intake/output data recorded. I/O last 3 completed shifts: In: 360 (4.1 mL/kg) [NG/GT:360] Out: 2330 (26.8 mL/kg) [Urine:2250 (0.7 mL/kg/hr); Drains:80] Weight: 87.1 kg Patient Lines/Drains/Airways Status Active Active LDAs Name Placement date Placement time Site Days Peripheral IV 08/19/25 Right Antecubital 08/19/25 0704 Antecubital 4 Peripheral IV 08/19/25 Left Hand 08/19/25 0829 Hand 4 Peripheral IV 08/19/25 Left Foot 08/19/25 0935 Foot 4 Closed/Suction Drain Anterior;Right Neck Bulb 15 Fr. 08/19/25 1650 Neck 3 Surgical Airway Shiley Cuffed 6 08/19/25 1727 6 3 Feeding Tube Left nare 08/19/25 1759 Left nare 3 Negative Pressure Wound Therapy Leg Anterior;Lower;Right 08/19/25 1541 Leg 3 I have reviewed the active problem list, medication list, lab results, and imaging. Physical Exam HENT: Mouth/Throat: Mouth: Mucous membranes are moist. Comments: Intra-oral flap skin paddle well-perfused, strong doppler signal, incision c/d/i Neck: Comments: Neck soft, incision C/D/I with Nylons in place, JPX1 SS Pulmonary: Comments: On trach collar Abdominal: Palpations: Abdomen is soft. Musculoskeletal: Comments: RLE CAM boot in place, WV holding suction, fires EHL/FHL Skin: General: Skin is warm. Capillary Refill: Capillary refill takes less than 2 seconds. Neurological: Mental Status: He is alert and oriented to person, place, and time. Psychiatric: Mood and Affect: Mood normal. Assessment/Plan Carlito Perez is a 54 y.o. 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 - Okay for OOBTC - CAM boot at all times, WBAT - WV in place over right leg, will change at bedside on 08/26 - [id number] mg for 1 month - Recommend 5 days antibiotics postoperatively - Continue tube feeds at goal - OMFS managing trach - SQH and SCDs for DVT ppx - Patient not appropriate for discharge at this time. Patient to remain inpatient until STSG which is scheduled for 08/28/25. - Plastic Surgery will continue to follow DVT ppx: SQH, SCDs Yessenia uJng MD Plastic & Reconstructive Surgery PGY-4 Pager [phone] Cosigned by Marvin Santana MD at 08/24/2025 5:52 PM EDT Associated attestation - Marvin Santana MD - 08/24/2025 5:52 PM EDT I saw and evaluated the patient. I discussed the case with the resident/fellow and agree with the findings and plan as documented. * Progress Notes - Rusty Melendrez DDS - 08/23/2025 5:24 AM EDT Images from the original note were not included. Oral & Maxillofacial Surgery Progress Note 08/23/25 Carlito Perez [facility] Day: 5 Subjective HISTORY OF PRESENT ILLNESS Carlito Perez is a 54 y.o. 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 Procedure(s): 1) Left segmental mandibulectomy, left selective neck dissection, extraction of all remaining teeth, partial left glossectomy, tracheostomy creation with OMFS on 08/19/2025 2) Fibula free flap reconstruction with Plastic surgery on 08/19/2025 24 hr interval events : No BM as of 0500, did not add duo-nebs per RT, recs from plastics: WBAT, ASA 324 for 1 month, DC abx POD 5, Cam boot at all times, STSG on 08/28, trach suctioned x2 - blood-tinged, mostly clear Edited by: Rusty Melendrez DDS at 08/23/2025 0524 Objective Last Recorded Vitals Temp: [36.5 ??C (97.7 ??F)-37.5 ??C (99.5 ??F)] 37.1 ??C (98.8 ??F) Heart Rate: [64-85] 79 Resp: [15-16] 16 BP: (106-116)/(65-73) 116/73 FiO2 (%): [28 %] 28 % Temp (24hrs), Av.9 ??C (98.5 ??F), Min:36.5 ??C (97.7 ??F), Max:37.5 ??C (99.5 ??F) Wt Readings from Last 1 Encounters: 08/19/25 87.1 kg (192 lb) PHYSICAL EXAMINATION GEN: NAD, resting comfortably. HEENT: Neck: soft, supple, minimally TTP. No fluctuant swellings noted. No evidence of hematoma. CHULA drain secured in place, holding sanguinous suction. 6-0 cuffed shiley trach secured in place with silk sutures. Nose: NG DHT in place. Intraoral: flap soft, warm, appropriate turgor, well-perfused, capillary refill <1 sec, hemostatic. CVS: Regular Rate, well perfused Pulm: Non-labored breathing on HTC 6-0 cuffed shiley trach secured in place with silk sutures. Neuro: 11T; Left CN V3 anesthetic. Otherwise, CN II-IV, , VIII-XII grossly intact. MSK: Elevated RLE with CAM boot in place; Mild, soft edema noted with TTP; WV holding suction. DP and TP pulses palpable. Psych: Appropriate for situation, pleasant. I/O: Intake/Output Summary (Last 24 hours) at 08/23/2025526 Last data filed at 08/23/2025 0500 Gross per 24 hour Intake 270 ml Output 1550 ml Net -1280 ml LABORATORY CBC WBC 10.09 Hb 9.5 (L) Plt 326 Hct 29.1 (L) ANC ?? INR ??, PTT ??, Anti-Xa ?? BMP Na 137 Cl 102 BUN 15 Glu 100 (H) K 4.0 Co2 25 Cr 0.58 (L) Ca 8.7 (L) iCa ?? Mg 2.0, Phos 3.3 MICROBIOLOGY Results Procedure Component Value Units Date/Time Cecelia auris Surveillance by PCR [[id number]] (Normal) Collected: 08/19/252018 Order Status: Completed Specimen: Swab from Axilla and Groin Updated: 08/21/25 1033 Cecelia auris PCR Result Not Detected Narrative: This PCR assay was developed and its performance characteristics determined by [facility] as appropriate for clinical purposes. This assay has not been cleared or approved bythe FDA, but is performed in a CLIA regulated laboratory that is qualified to perform high-complexity testing. Multi Drug Resistance Test [[id number]] Collected: 08/19/252018 Order Status: Completed Specimen: Swab from Nares and Nini Rectal Updated: 08/21/25 0733 Culture No growth at day 1 Narrative: This test was developed and its performance characteristics determined by the [facility]. Although the media is FDA-approved, it is not FDA-approved for all specimen types submitted. The FDA has determined that such clearance or approval is not necessary. This test is used for surveillance purposes. It should not be regarded as investigational or for research. The [facility] is certified under the ClinicalLaboratory Improvement Amendments of 1988 (CLIA-88) as qualified to perform high complexity clinical laboratory testing. IMAGING No new imaging Assessment/Plan Carlito Perez is a 54 y.o. 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 #Left lateral Tongue and Floor of the mouth SCCa -s/p aforementioned procedures #Fibula Free Flap Reconstruction -Nothing around the neck -Continue Unasyn 3g q6h, DC 08/23/2025* -HOB elevated 30 degrees -Continue ASA for 30 days (DC 09/19/2025) and heparin -Continue ondansetron PRN for PONV prophylaxis -Continue esomeprazole -Continue Flap checks per plastic surgery -PTOT eval-appreciate recs -OOBTC 2x per day -CAM boot in place at all times -WBAT -Wound vac removal planned for 08/24/2025 -Skin graft planned for next week, date TBD #Dysphagia -Continue NPO -Continue TF -Isosource 1.5 291 mL bolus with 90 FW flush q4h #Trach Dependent -Continue trach care -6-0 cuffed shiley -Trial deflating cuff today 08/23 -Plan to downsize after 2nd procedure with PRS #Post operative Pain control -acetaminophen q6h -gabapentin 3 times per day -oxycodone panel q4h PRN #Post operative constipation -Continue polyethylene glycol -Senna -Milk of magnesium -Continue to monitor #Postoperative Urine Retention -Gr Re-anchored -Continue to monitor strict I/Os #Hypothyroidism -Restarted home levothyroxine #GERD - Started on famotidine #CAD -Restarted home metoprolol #HTN -Continue to monitor #HLD -Restated home atorvastain #GAURANG Dispo: Continue Current Level of Care - Plan of care discussed with patient at bedside Rusty Melendrez DDS [facility] OMFS, PGY-1 Cosigned by Alvaro Adrian DMD, MD at 08/26/2025 2:28 PM EDT Associated attestation - Alvaro Adrian DMD, MD - 08/26/2025 2:28 PM EDT I saw and evaluated the patient with the resident/fellow. I discussed the case with the resident/fellow and agree with the findings and plan as documented. * Care Plan - Ron Hines RN - 08/22/2025 8:00 PM EDT Problem: Pain Acute Goal: Optimal Pain Control and Function Outcome: Ongoing, Progressing Intervention: Develop Pain Management Plan Flowsheets (Taken 08/22/20252226) Pain Management Interventions: medication (see MAR) Intervention: Prevent or Manage Pain Flowsheets Taken 08/22/20252226 by Ron Hines RN Sleep/Rest Enhancement: awakenings minimized regular sleep/rest pattern promoted relaxation techniques promoted Taken 08/20/20251818 by Lizy Amador Sensory Stimulation Regulation: auditory stimulation minimized care clustered Problem: Skin Injury Risk Increased Goal: Skin Health and Integrity Outcome: Ongoing, Progressing Intervention: Optimize Skin Protection Flowsheets Taken 08/22/20251999 by Ron Hines RN Activity Management: activity adjusted per tolerance Head of Bed (HOB) Positioning: HOB elevated Taken 08/22/2025 0621 by Miya Al RN Pressure Reduction Devices: positioning supports utilized Taken 08/21/20251733 by Juanita Vergara RN Pressure Reduction Techniques: frequent weight shift encouraged Skin Protection: transparent dressing maintained pulse oximeter probe site changed incontinence pads utilized Intervention: Promote and Optimize Oral Intake Flowsheets (Taken 08/21/20251733 by Juanita Vergara RN) Oral Nutrition Promotion: rest periods promoted social interaction promoted * Progress Notes - Cynthia Sands RN - 08/22/2025 1:27 PM EDT Case Management Adult Progress Note Carlito Perez 54 y.o. male CSN: [id number] Admission: 08/19/2025 5:29 AM Primary Problem: Floor of mouth squamous cell carcinoma Anticipated Discharge Date: 08/27/25 Has Discharge Plans Changed? Medicare Second Notice: Housing Circumstances: Housing Circumstances Action Taken: Medically Ready for Discharge: Additional Comments Referral for PT/OT+SN sent to agencies via op5. UPDATE: [facility] [phone] has accepted pt. POC reviewed with primary team. Refer to primary team's note for details. Pt is not medically readyfor discharge. MD anticipates readiness for discharge more than 72 hrs. In??MARIANELA Bass, hog confinement system manager * Progress Notes - Nicole Rodriguez - 08/22/2025 9:41 AM EDT Occupational Therapy Evaluation Patient Name: Saravanan Perez Today's Date: 08/22/2025 Total Treatment Time: 39 minutes OT Discharge Recommendations: Home with assistance, Home health OT, Home health PT Equipment Recommended: Rolling walker History Carlito Perez is 54 y.o. 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 Hospital Course 1. Floor of mouth squamous cell carcinoma Procedures 08/19/2025 Procedure(s): Left mandibular reconstruction with right free fibula, complex closure of oral wound, EXCISION, NEOPLASM, MALIGNANT, MANDIBLE DISSECTION, NECK, RADICAL GLOSSECTOMY CREATION, TRACHEOSTOMY Past Medical History Patient has a past medical history of Adverse effect of anesthesia, CAD (coronary artery disease), Cancer ([facility]) ([id number]), Coronary artery calcification, Dental disease, Fractures (clavical surgery), GERD (gastroesophageal reflux disease), Hard to intubate, HLD (hyperlipidemia), HTN (hypertension), Hypothyroidism, Reflux gastritis, and Substance abuse (1988). Past Surgical History Patient has a past surgical history that includes Appendectomy (1979); Colonoscopy (2023); Coronarystent placement ([id number]); Other surgical history; Cardiothoracic procedure; orthopedic surgery; Throat surgery; and Carotid stent (04/26/2023). Precautions Right Lower Extremity Weight Bearing Status: Weight Bearing as Tolerated (with CAM boot for ambulation; on AAT - okay to remove for skin inspection, hygiene, and dressing changes per medical TEAM) Medical Precautions: Fall precautions Mobility Orders (Order ID: [id number]) Priority: Routine Interval: Until discontinued Comments: MUST AMBULATE IN CAM BOOT Mobility Protocol: General - Mobility Guidelines Extremity Precautions: Extremity Precautions Extremity: RLE Mobility Restrictions (RLE): Weight bear as tolerated (WBAT) Type of Brace (RLE): CAM Boot CAM Boot Wear Time Protocol: Remove for skin inspection and hygiene Other mobility precautions: No other precautions required Ordered by: Roma Rolon MD Authorized by: Marvin Santana MD ( ) Electronically Signed by: Marvin Santana MD Subjective Patient agreeable to OT initial evaluation/session. Participants in Care Family/Caregiver Present: Yes Family/Caregiver: (Adult Sister) Academic Associate: Not Applicable Presentation Oxygen Therapy: Supplemental oxygen (Patient tolerated session on room air with SpO2 above 90% - RNaware) O2 Delivery Method: Humidified trach collar FiO2 (%): 28 % O2 Flow Rate (L/min): 5 L/min Lines and Tubes: Telemetry Surgical Airway Shiley Cuffed 6 (Active) Closed/Suction Drain Anterior;Right Neck Bulb 15 Fr. (Active) Urethral Catheter Double-lumen;Temperature probe (Active) Feeding Tube Left nare (Active) Negative Pressure Wound Therapy Leg Anterior;Lower;Right (Active) Peripheral IV 08/19/25 Right Antecubital (Active) Peripheral IV 08/19/25 Left Hand (Active) Peripheral IV 08/19/25 Left Foot (Active) Pre-Session: Supine, Head of bed elevated, Lines intact Pre-Session Comments: RN agreeable to initial evaluation. Right LE CAM boot donned. Post-Session: Sitting in chair, Chair alarm, Lines intact, SCDs applied, Call light in reach, RN notified Post-Session Comments: Patient positioned for comfort/pressure relief with pillow supports and all needs in reach. Left SCD donned. Right LE CAM boot remained donned. Orthoses: CAM boot - right Home Living/Set-Up Lives With: Spouse Home Type: Mobile home (Double-Wide) Home Adaptive Equipment: Cane, Crutches Home Layout: Stairs to enter without rails, One level Number of Stairs: 3 Bathroom: Tub/Shower: Walk-in shower Bathroom: Toilet: Standard Bathroom: Accessibility: Accessible via walker Home Living Comments: Patient endorsed that between spouse and additional family members he could have 24/7-hour assistance as/if needed. Prior Level of Function Receives Help From: No assist required prior to admission Level of Mobility: Ambulatory- community Mobility [place]: Independent gait without device History of Falls: No ADL Performance: Independent Patient/Family Goals Patient would like to return home. Objective Pain Patient reported 8/10 pain in right LE, unchanged with mobility. RN aware. Patient positioned for comfort/pressure relief with pillow supports and all needs in reach at end of session. Delirium Screening RASS: Alert and calm Confusion Assessment Method-ICU (CAM-ICU/PCAM-ICU) Feature 1: Acute Onset or Fluctuating Course: Negative Feature 2: Inattention: Negative Feature 3: Altered Level of Consciousness: Negative Feature 4: Disorganized Thinking: Negative Overall CAM-ICU/PCAM-ICU: Negative Cognition Overall Cognitive Status: Within Functional Limits Arousal/Alertness: Appropriate responses to stimuli Mood/Behavior: Alert Orientation Level: Oriented X4 Single Step Commands: Consistently, 100% of the time Multi-Step Commands: Consistently, 100% of the time Method of Communication: Mouthing, Writing, Nodding (Gestures) Safety Judgment: Decreased awareness of need for assistance Awareness of Errors: Assistance required to identify errors made Deficit Awareness: Fully aware of deficits Attention Span: Appears intact, Attends with cues to redirect Problem Solving: Assistance required to identify errors made Perseveration: Not present Vision - Assessment Baseline Vision: Glasses reading Patient Visual Report: Patient reported no concerns regarding vision at this time. Right Upper Extremity Examination RUE Assessment: Within Functional Limits Manual Muscle Testing - RUE: Within functional limits Light Touch: Right Upper Extremity: Intact Left Upper Extremity Examination LUE Assessment: Within Functional Limits Manual Muscle Testing - LUE: Within functional limits Light Touch: Left Upper Extremity: Intact Right Lower Extremity Examination RLE Assessment: Within Functional Limits (at Hip and Knee; Ankle NT secondary to CAM boot) Manual Muscle Testing - RLE: Within functional limits (Hip and Knee; Ankle NT secondary to CAM boot- generalized weakness) Light Touch: Right Lower Extremity: Intact Left Lower Extremity Examination LLE Assessment: Within Functional Limits Manual Muscle Testing: Within functional limits Light Touch: Left Lower Extremity: Intact Perception/Coordination Perception Initiation: Appears intact Motor Planning: Appears intact Coordination Movements are Fluid and Coordinated: Yes Fine Motor Coordination Examination Left Hand, Manipulation of Objects: Normal performance Right Hand, Manipulation of Objects: Normal performance Bed Mobility Bed Mobility Exam: Scooting/Bridging Level of [place]: Stand-by assist (anteriorly to EOB) Physical/Nonphysical Assist: Set-up required, Supervision, Verbal Cues, Minimal cues, 1 person + 1 person to manage equipment Bed Mobility Exam: Supine to Sit Level of [place]: Contact guard (to the left) Physical/Nonphysical Assist: Set-up required, Verbal Cues, Nonverbal cues (demo/gestures), Minimal cues, HOB elevated, 1 person + 1 person to manage equipment Assistive Device: Bed rails Transfers Transfer Exam: Sit to stand Level of [place]: Contact guard Physical/Nonphysical Assist: Set-up required, Verbal Cues, Nonverbal cues (demo/gestures), Minimal cues, 1 person + 1 person to manage equipment Assistive Device: Walker, rolling Transfer Exam: Stand to Sit Level of [place]: Contact guard Physical/Nonphysical Assist: Verbal Cues, Nonverbal cues (demo/gestures), Minimal cues, 1 person + 1 person to manage equipment Assistive Device: Walker, rolling Functional Mobility Device: Rolling walker Assistance: Contact guard assist, Minimal verbal cues, Minimal tactile cues, Additional assist needed for line management Distance : 15' Balance Postural Appearance Posture: Within Functional Limits Static Sitting Balance Static Sitting-Balance Support: Right upper extremity support, Left upper extremity support, Feet supported Static Sitting-Level of Assistance: Standby assist Dynamic Sitting Balance Dynamic Sitting-Balance Support: No upper extremity support, Feet supported Level of Assistance: Standby assisst Static Standing Balance Static Standing-Balance Support: Right upper extremity support, Left upper extremity support (on RW) Static Standing-Level of Assistance: Contact guard Dynamic Standing Balance Dynamic Standing-Balance Support: Right upper extremity support, Left upper extremity support (on RW) Dynamic Standing Level of Assistance: Contact guard Self-Care Interventions Self Care/Home Management (ADLs) Time Entry: 24 Self_Care Interventions: In addition to OT initial evaluation (15 minutes), OT facilitated patient engagement in sequential task training emphasizing functional transitions required for increased performance in higher level BADLs/IADLs. Refer to the above sections for patient performance and levelsof assistance required for aspects of mobility completed on this date. Of note, increased time required for: appropriate room set-up via environmental modifications to optimize patient safety and accessibility to all areas of treatment spaces, skilled management of medical lines/tubes, vital monitoring, task modification/grading activity to provide functional challenge and promote success , provision of pacing/rest breaks, BADL retraining, linen/chux change, orthotic management, verbal and tactile cues to facilitate sequencing and proper body mechanics during functional tasks, patient education, caregiver/family education, and staff education (RN/Tech/TEAM in regards to patient safety/vitals/mobility during session). Patient Education: To optimize patient safety while inpatient and at time of discharge, OT providedpatient and caregiver/family education regarding: role of OT within POC, progression of therapy, discharge recommendations, precautions, BADL retraining, work simplification, energy conservation, adaptive techniques, adaptive equipment, fall prevention, home management, bathroom safety, showering safety, showering tips (including where to obtain a shower chair or tub transfer bench if desired forhome use), community safety/accessibility , and caregiver safety. Of note, the caregiver/family verbalized understanding. Patient, however, would continue to benefit from additional education to promote increased carryover of provided information. Refer to below sections for additional self-care interventions completed during session. Feeding Feeding Level of Assistance: Supervision Feeding Interventions: Patient currently NPO with DHT present at time of initial evaluation. Anticipated level of assistance/performance per clinical judgement to optimize patient safety. Grooming Grooming Level of Assistance: Setup, SBA Grooming Where Assessed: Chair level Grooming Interventions: Therapist provided set-up assist for oral suction in reach. Patient completed oral suction to manage secreations with SBA in unsupported sitting. OT anticipates that patient will required CGA to complete simple grooming in standing position at sink. Bathing UE Bathing Level of Assistance: Minimum assistance LE Bathing Level of Assistance: Moderate assistance Bathing Interventions: Anticipated level of assistance/performance per clinical judgement. OT provided patient education regarding bathroom safety including benefits of a shower chair (and where to obtain if desired), adaptive techniques (sponge bathing), fall prevention, general bathing/showering tips, and energy conservation. OT recommended to follow showering instructions provided by medical TEAM at time of d/c. Patient verbalized understanding of provided information. Patient reported that they will have necessary assistance as/if needed with bathing/showering at time of d/c. UE Dressing UE Dressing Level of Assistance: Minimum assistance UE Dressing Where Assessed: Edge of bed UE Dressing Interventions: Patient required MIN to adjust gown in unsupported sitting position secondary to lines present. Lower Extremity Dressing Sock Level of Assistance: Dependent LE Dressing Where Assessed: Edge of bed LE Dressing Interventions: OT provided DEP assist to adjust left sock. OT reviewed CAM boot and right LE precautions with patient and sister. Both endorsed understanding. Toileting Toileting Level of Assistance: Contact guard Where Assessed: (Simulated.) Toileting Interventions: OT engaged patient in partial toileting routine in which bedside commode or standard toilet transfers were simulated during aspects of mobility. Patient required CGA to complete functional sit < > stand and CGA to engage in navigation of very small household distance (15') with RW. Of note, increased time required for presented task secondary to slow pace of task com pletion and appropriate set-up lines/equipment to optimize patient safety and success. Patient withurinary catheter present at time of initial evaluation. Patient unable to progress with additional navigation activities d/t pain. OT anticipates that patient will progress well while inpatient within personal toileting routines. Standardized Assessments [facility] 6-Click Daily Activities Help from Other: Don/Doff Regular Lower Body Clothings: A lot Help From Other: Bathing: Little Help From Other: Toileting: Little Help From Other: Don/Doff Upper Body Clothings: Little Help From Other: Grooming: None Help From Other: Eating Meals: Little (DHT) [facility] 6 Click - Daily Activities Score: 1824 Assessment Patient tolerated today's initial evaluation/session well with rest breaks as needed and stable vitals. On this date, the patient required grossly CGA for aspects of mobility with increased time (assist for line management) and utilization of RW. Varied levels of assistance required/anticipated forpresented self-cares; refer to self-care section for additional details. Patient presented with impaired occupational performances within completing BADL/IADL safely, functional transfers, functionalmobility, balance, activity tolerance, and self-limiting factors including pain and fatigue impacting their current level of performance and ability to engage in occupations with full independence. Despite these impairments, patient is appropriate to return home with 24/7-hour assistance with HH OT/PT as OT anticipates that the patient will progress well while inpatient. Patient endorsed having necessary assistance available as/if needed at time of d/c. While inpatient, patient would continue to benefit from skilled OT services to promote increased independence within desired occupations, return to prior level of function, decrease caregiver stress, reduce risk of falls/potential readmission, and to promote a safe discharge when medically appropriate. OT Findings: Impaired ADL performance, Impaired IADL performance, Decreased endurance/ventilation/gas exchange, Impaired functional mobility, Decreased gross motor control/coordination, Impaired balance Evaluation/Treatment Tolerance: Patient limited by fatigue, Patient limited by pain Rehab Potential: Good, to achieve stated therapy goals Demonstrates Need for Referral to Another Service: Social work Eval Complexity Occupational Profile: Expanded review of medical/therapy records and additional review of physical,cognitive, or psychosocial history Performance Deficits: Activities of daily living (ADLs), Instrumental activities of daily living (IADLs), Leisure, Social participation, Body functions, Body structures, Motor skills, Process skills,Social interaction skills, Habits, Routines, Roles, Personal, Physical, Social Clinical Decision Making: Moderate Overall Eval complexity: Moderate OT Recommendations Discharge Destination: Home with assistance, Home health OT, Home health PT Discharge Equipment: Rolling walker Plan Continue with established OT plan of care 2-5/wk to progress towards OT POC goals. Planned OT Interventions ADL retraining, IADL retraining, Balance training, Bed mobility Training, Motor coordination training, Neuromuscular re-education, ROM, Strengthening, Transfer training, Functional mobility, Caregiver education OT Frequency 2 - 5 times per week OT Duration 2 weeks Goals OT GOAL DETAILS Time Frame OT Goal 1: Patient/Family will be independent in bilateral upper extremity home exercise program topromote increased activity tolerance required for engagement in higher level self-cares/mobility. 2weeks OT Goal 2: Patient will complete 2-step grooming routine in standing position with modified independence (AE as needed). 2 weeks OT Goal 3: Patient will complete total body dressing (including CAM boot) with modified independence (AE as needed). 2 weeks OT Goal 4: Patient will complete toileting routine (navigation < > bathroom, transfer < > standard toilet, manage clothing, and complete nini-care hygiene) with modified independence (AE as needed). 2 weeks Written by Nicole Rodriguez on 08/22/25 at 9:59 AM. * Progress Notes - Debbie Viveros, PT - 08/22/2025 9:38 AM EDT Physical Therapy Evaluation Patient Name: Saravanan Perez prefers Saravanan Today's Date: 08/22/2025 PT Discharge Recommendations: Home with 24 hour assistance, Home health PT, Home health OT Equipment Recommended: Rolling walker Total Treatment Time: 38min History Carlito Perez is 54 y.o. 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 Problem List Active Hospital Problems Diagnosis Date Noted Squamous cell carcinoma of mandible 08/19/2025 Floor of mouth squamous cell carcinoma 06/28/2025 Procedures 08/19/2025 Procedure(s): Left mandibular reconstruction with right free fibula, complex closure of oral wound, EXCISION, NEOPLASM, MALIGNANT, MANDIBLE DISSECTION, NECK, RADICAL GLOSSECTOMY CREATION, TRACHEOSTOMY Past Medical History Patient has a past medical history of Adverse effect of anesthesia, CAD (coronary artery disease), Cancer (CMS/HCC) ([id number]), Coronary artery calcification, Dental disease, Fractures (clavical surgery), GERD (gastroesophageal reflux disease), Hard to intubate, HLD (hyperlipidemia), HTN (hypertension), Hypothyroidism, Reflux gastritis, and Substance abuse (1988). Past Surgical History Patient has a past surgical history that includes Appendectomy (1979); Colonoscopy (2023); Coronarystent placement (86025243); Other surgical history; Cardiothoracic procedure; orthopedic surgery; Throat surgery; and Carotid stent (04/26/2023). Precautions Right Lower Extremity Weight Bearing Status: Weight Bearing as Tolerated (with CAM boot for ambulation; on AAT - okay to remove for skin inspection, hygiene, and dressing changes per medical TEAM) Medical Precautions: Fall precautions Subjective Patient agreeable to PT EVAL. Reports he has not been out of bed since surgery. Participants in Care Family/Caregiver Present: Yes Family/Caregiver: (Adult Sister) Academic Associate: Not Applicable Presentation Oxygen Therapy: Supplemental oxygen (Patient tolerate session on room air with SpO2 above 90% - RN aware) O2 Delivery Method: Humidified trach collar FiO2 (%): 28 % O2 Flow Rate (L/min): 5 L/min Lines and Tubes: Intravenous access, Dobhoff, Wound vac, Urinary catheter, Surgical drains (pulse ox, SCDs to LLE only) Surgical Airway Shiley Cuffed 6 (Active) Closed/Suction Drain Anterior;Right Neck Bulb 15 Fr. (Active) Urethral Catheter Double-lumen;Temperature probe (Active) Feeding Tube Left nare (Active) Negative Pressure Wound Therapy Leg Anterior;Lower;Right (Active) Peripheral IV 08/19/25 Right Antecubital (Active) Peripheral IV 08/19/25 Left Hand (Active) Peripheral IV 08/19/25 Left Foot (Active) Pre-Session: Supine, Head of bed elevated, Lines intact Pre-Session Comments: RN agreeable to initial evaluation. Right LE CAM boot donned. Post-Session: Sitting in chair, Chair alarm, Lines intact, SCDs applied, Call light in reach, RN notified Post-Session Comments: Patient positioned for comfort/pressure relief with pillow supports and all needs in reach. Left SCD donned. Right LE CAM boot remained donned. Orthoses: CAM boot - right Home Living/Set-up Lives With: Spouse Home Type: Mobile home (Double-Wide) Home Adaptive Equipment: Cane, Crutches Home Layout: Stairs to enter without rails, One level Number of Stairs: 3 Bathroom: Tub/Shower: Walk-in shower Bathroom: Toilet: Standard Bathroom: Accessibility: Accessible via walker Home Living Comments: Patient endorsed that between spouse and additional family members he could have 24/7-hour assistance as/if needed. Patient's sister is a RN at (peds ED) Prior Level of Function Receives Help From: No assist required prior to admission Level of Mobility: Ambulatory- community Mobility [place]: Independent gait without device History of Falls: No ADL Performance: Independent Patient/Family Goals Go home. Objective Vital Signs Pre-Session Post-Session Heart Rate (BPM) 86 75 O2 Saturation (%) 96 97 Pain Patient reports 8/10 pain in his right leg that remained the same after walking. Patient endorses RN gave him what she could for pain already this morning. Delirium Screening RASS: Alert and calm Confusion Assessment Method-ICU (CAM-ICU/PCAM-ICU) Feature 1: Acute Onset or Fluctuating Course: Negative Feature 2: Inattention: Negative Feature 3: Altered Level of Consciousness: Negative Feature 4: Disorganized Thinking: Negative Overall CAM-ICU/PCAM-ICU: Negative Cognition Overall Cognitive Status: Within Functional Limits Arousal/Alertness: Appropriate responses to stimuli Mood/Behavior: Alert Single Step Commands: Consistently, 100% of the time Multi-Step Commands: Consistently, 100% of the time Method of Communication: Mouthing, Writing, Nodding (Gestures) Vision - Basic Assessment Baseline Vision: Glasses reading Patient Visual Report: Patient reported no concerns regarding vision at this time. Right Upper Extremity Examination RUE Assessment: Within Functional Limits Manual Muscle Testing - RUE: Within functional limits Sensation Light Touch: Right Upper Extremity: Intact Left Upper Extremity Examination LUE ROM Assessment LUE Assessment: Within Functional Limits Manual Muscle Testing - LUE Manual Muscle Testing - LUE: Within functional limits Sensation Light Touch: Left Upper Extremity: Intact Right Lower Extremity Examination RLE ROM Assessment RLE Assessment: Within Functional Limits (at Hip and Knee; Ankle NT secondary to CAM boot) Manual Muscle Testing - RLE Manual Muscle Testing - RLE: Within functional limits (Hip and Knee; Ankle NT secondary to CAM boot- generalized weakness) Sensation Light Touch: Right Lower Extremity: Intact Left Lower Extremity Examination LLE Assessment: Within Functional Limits Manual Muscle Testing: Within functional limits Sensation Light Touch: Left Lower Extremity: Intact Therapeutic Activity (23 minutes) Patient participated in PT interventions targeting functional strength and endurance to improve mobility. See bed mobility, transfers, and ambulation sections for details. Additional time required for line management and room set- up for safe mobility. Bed Mobility Bed Mobility Exam: Scooting/Bridging Level of [place]: Stand-by assist (anteriorly to EOB) Physical/Nonphysical Assist: Set-up required, Supervision, Verbal Cues, Minimal cues, 1 person + 1 person to manage equipment Bed Mobility Exam: Supine to Sit Level of [place]: Contact guard (to the left) Physical/Nonphysical Assist: Set-up required, Verbal Cues, Nonverbal cues (demo/gestures), Minimal cues, HOB elevated, 1 person + 1 person to manage equipment Transfers Transfer Exam: Sit to stand Level of [place]: Contact guard Physical/Nonphysical Assist: Set-up required, Verbal Cues, Nonverbal cues (demo/gestures), Minimal cues, 1 person + 1 person to manage equipment Assistive Device: Walker, rolling Transfer Exam: Stand to Sit Level of [place]: Contact guard Physical/Nonphysical Assist: Verbal Cues, Nonverbal cues (demo/gestures), Minimal cues, 1 person + 1 person to manage equipment Assistive Device: Walker, rolling Ambulation Device: Rolling walker Assistance: Contact guard assist, Minimal verbal cues, Minimal tactile cues, Additional assist needed for line management Distance : 15' Ambulation Comments: Patient with decreased step lengths, antalgic gait pattern, unable to don shoeto LLE due to IV in foot + wearing CAM boot on RLE, slow [place]. PT providing cues for gait sequencing and safe positioning within RW. Balance Postural Appearance Posture: Within Functional Limits Static Sitting Balance Static Sitting-Balance Support: Right upper extremity support, Left upper extremity support, Feet supported Static Sitting-Level of Assistance: Standby assist Dynamic Sitting Balance Dynamic Sitting-Balance Support: No upper extremity support, Feet supported Level of Assistance: Standby assisst Static Standing Balance Static Standing-Balance Support: Right upper extremity support, Left upper extremity support (on RW) Static Standing-Level of Assistance: Contact guard Dynamic Standing Balance Dynamic Standing-Balance Support: Right upper extremity support, Left upper extremity support (on RW) Dynamic Standing Level of Assistance: Contact guard Standardized Assessments [facility] 6-Clicks Mobility Assessment Difficulty patient has turning over in bed (including adjusting bedclothes, sheets, and blankets)?:None Difficulty patient has sitting down on and standing up from a chair with arms (wheelchair, bedside commode, etc.)?: None Difficulty patient has moving from lying on back to sitting on the side of the bed?: None How much help does the patient need moving to and from a bed to a chair (including a wheelchair)?: A little How much help does the patient need to walk in hospital room?: A little How much help does the patient need climbing 3-5 steps with a railing?: A little [facility] 6-Clicks Mobility Assessment Total : 21 No data recorded Assessment Patient is not at his functional baseline and will continue to benefit from further skilled inpatient PT intervention during remainder of hospital stay to address identified impairments and progress towards independence with functional mobility. Anticipate patient will progress with mobility duringhospitalization and be able to safely return home with family to assist when medically optimized. Patient may have additional surgeries during this admission per sister. Impairments: Decreased endurance, ventilation, and/or gas exchange, Impaired gait dynamics/performance, Impaired locomotion, Impaired functional mobility/transfers, Impaired balance, Pain, Decreased range of motion, Decreased strength Activity Limitations: Inability to ambulate household distances, Inability to transfer independently, Inability to complete ADLs independently, Inability to ambulate independently, Inability to ambulate community distances Participation Restrictions: Self-care, Home management, Community leisure Activity Tolerance: Tolerates 30 min activity with multiple rests Evaluation/Treatment Tolerance: Patient limited by pain, Patient limited by fatigue Diagnosis: impaired functional mobility and decreased activity tolerance Rehab Potential: Good, to achieve stated therapy goals Barriers to Discharge: Comorbidities Eval Complexity History Profile: 1 - 2 personal factors and/or comorbidities Clinical Presentation: Evolving clinical presentation with changing characteristics Clinical Decision Making: Moderate complexity PT Recommendations Discharge Destination: Home with 24 hour assistance, Home health PT, Home health OT Discharge Equipment: Rolling walker Plan Planned PT Interventions Balance training, Bed mobility training, Gait training, Transfer training, Postural re-education, Strengthening, Caregiver training, Functional Mobility PT Frequency 2 - 5 times per week PT Duration 2 weeks Goals PT GOAL DETAILS Time Frame PT Goal 1: Patient will be Modified Independent with bed mobility to ease caregiver burden. 2 weeks PT Goal 2: Patient will transfer sit < > stand with Modified Independent with RW to ease caregiver burden. 2 weeks PT Goal 3: Patient will ambulate 150' with RW CGA for household distances with CAM boot on RLE. 2 weeks PT Goal 4: Patient will ascend/descend 3 stairs with Min A to access home. 2 weeks Written by Debbie Viveros PT on 08/22/25 at 10:08 AM. * Care Plan - Luna White RN - 08/22/2025 7:51 AM EDT Problem: Adult Inpatient Plan of Care Goal: Plan of Care Review Outcome: Ongoing, Progressing Flowsheets Taken 08/21/20251733 by Juanita Vergara RN Progress: improving Taken 08/19/2025 2243 by Nely Cardoza RN Plan of Care Reviewed With: patient Goal: Patient-Specific Goal (Individualized) Outcome: Ongoing, Progressing Goal: Absence of Hospital-Acquired Illness or Injury Outcome: Ongoing, Progressing Intervention: Identify and Manage Fall Risk Flowsheets (Taken 08/21/20251999 by Myia Al RN) Safety Promotion/Fall Prevention: assistive device/personal items within reach Intervention: Prevent Skin Injury Flowsheets Taken 08/22/2025 0600 by Miya Al RN Body Position: turned right Taken 08/21/20251733 by Juanita Vergara RN Skin Protection: transparent dressing maintained pulse oximeter probe site changed incontinence pads utilized Intervention: Prevent and Manage VTE (Venous Thromboembolism) Risk Flowsheets (Taken 08/21/20251733 by Juanita Vergara RN) VTE Prevention/Management: SCDs (sequential compression devices) on medication Intervention: Prevent Infection Flowsheets (Taken 08/21/20251733 by Juanita Vergara RN) Infection Prevention: environmental surveillance performed equipment surfaces disinfected hand hygiene promoted personal protective equipment utilized rest/sleep promoted single patient room provided visitors restricted/screened Goal: Optimal Comfort and Wellbeing Outcome: Ongoing, Progressing Problem: Pain Acute Goal: Optimal Pain Control and Function Outcome: Ongoing, Progressing Problem: Surgery Nonspecified Goal: Absence of Bleeding Outcome: Ongoing, Progressing Intervention: Monitor and Manage Bleeding Flowsheets (Taken 08/21/20251733 by Juanita Vergara RN) Bleeding Management: dressing monitored Goal: Effective Bowel Elimination Outcome: Ongoing, Progressing Intervention: Enhance Bowel Motility and Elimination Flowsheets Taken 08/22/2025 0621 by Miya Al RN Bowel Motility Enhancement: ambulation promoted Taken 08/21/20251733 by Juanita Vergara RN Bowel Elimination Management: relaxation techniques promoted sitting position facilitated Goal: Fluid and Electrolyte Balance Outcome: Ongoing, Progressing Intervention: Monitor and Manage Fluid and Electrolyte Balance Flowsheets (Taken 08/21/20251733 by Juanita Vegrara RN) Fluid/Electrolyte Management: fluids provided fluids adjusted Goal: Blood Glucose Level Within Target Range Outcome: Ongoing, Progressing Intervention: Optimize Glycemic Control Flowsheets (Taken 08/21/20251733 by Juanita Vergara RN) Hyperglycemia Management: blood glucose monitored Hypoglycemia Management: blood glucose monitored Goal: Absence of Infection Signs and Symptoms Outcome: Ongoing, Progressing Intervention: Prevent or Manage Infection Flowsheets Taken 08/22/2025719 by Luna White RN Isolation Precautions: precautions maintained Taken 08/21/20251733 by Juanita Vergara RN Infection Management: aseptic technique maintained Fever Reduction/Comfort Measures: lightweight bedding lightweight clothing Goal: Optimal Pain Control and Function Outcome: Ongoing, Progressing Intervention: Prevent or Manage Pain Flowsheets (Taken 08/21/20251733 by Juanita Vergara RN) Diversional Activities: television smartphone Goal: Nausea and Vomiting Relief Outcome: Ongoing, Progressing Intervention: Prevent or Manage Nausea and Vomiting Flowsheets (Taken 08/21/20251733 by Juanita Vergara RN) Nausea/Vomiting Interventions: slow deep breathing encouraged Goal: Effective Urinary Elimination Outcome: Ongoing, Progressing Intervention: Monitor and Manage Urinary Retention Flowsheets (Taken 08/22/2025620 by Miya Al RN) Urinary Elimination Promotion: catheter patency maintained Goal: Effective Oxygenation and Ventilation Outcome: Ongoing, Progressing Intervention: Optimize Oxygenation and Ventilation Flowsheets Taken 08/22/2025719 by Luna White RN Cough And Deep Breathing: done with encouragement Taken 08/22/2025599 by Miya Al RN Activity Management: activity adjusted per tolerance Head of Bed (HOB) Positioning: HOB elevated Taken 08/21/20251733 by Juanita Vergara RN Airway/Ventilation Management: airway patency maintained oxygen therapy provided Problem: Infection Goal: Absence of Infection Signs and Symptoms Outcome: Ongoing, Progressing Intervention: Prevent or Manage Infection Flowsheets Taken 08/22/2025719 by Luna White RN Isolation Precautions: precautions maintained Taken 08/21/20251733 by Juanita Vergara RN Infection Management: aseptic technique maintained Fever Reduction/Comfort Measures: lightweight bedding lightweight clothing Problem: Skin Injury Risk Increased Goal: Skin Health and Integrity Outcome: Ongoing, Progressing Intervention: Optimize Skin Protection Flowsheets Taken 08/22/2025620 by Miya Al RN Pressure Reduction Devices: positioning supports utilized Taken 08/22/2025599 by Miya Al RN Activity Management: activity adjusted per tolerance Head of Bed (HOB) Positioning: HOB elevated Taken 08/21/20251733 by Juanita Vergara RN Pressure Reduction Techniques: frequent weight shift encouraged Skin Protection: transparent dressing maintained pulse oximeter probe site changed incontinence pads utilized Problem: Fall Injury Risk Goal: Absence of Fall and Fall-Related Injury Outcome: Ongoing, Progressing Intervention: Identify and Manage Contributors Flowsheets (Taken 08/20/2025 1819 by Lizy Amador) Medication Review/Management: medications reviewed high-risk medications identified Intervention: Promote Injury-Free Environment Flowsheets (Taken 08/21/20251999 by Miya Al RN) Safety Promotion/Fall Prevention: assistive device/personal items within reach * Care Plan - Miya Al RN - 08/22/2025 6:25 AM EDT Problem: Adult Inpatient Plan of Care Goal: Plan of Care Review Outcome: Ongoing, Progressing Flowsheets Taken 08/22/2025 0621 by Miya Al RN Outcome Evaluation: Pt resting in bed with sister at bedside. Taken 08/21/20251733 by Juanita Vergara RN Progress: improving Taken 08/19/2025 2243 by Nely Cardoza RN Plan of Care Reviewed With: patient Goal: Patient-Specific Goal (Individualized) Outcome: Ongoing, Progressing Flowsheets Taken 08/21/20251999 by Miya Al RN Anxieties, Fears or Concerns: none Taken 08/21/2025 1200 by Juanita Vergara RN Patient/Family-Specific Goals (Include Timeframe): patient will have controlled pain by the end of the shift Individualized Care Needs: pain control Goal: Absence of Hospital-Acquired Illness or Injury Outcome: Ongoing, Progressing Intervention: Identify and Manage Fall Risk Flowsheets (Taken 08/21/20251999) Safety Promotion/Fall Prevention: assistive device/personal items within reach Intervention: Prevent Skin Injury Flowsheets Taken 08/22/2025 0600 by Miya Al RN Body Position: turned right Taken 08/21/2025 173 by Juanita Vergara RN Skin Protection: transparent dressing maintained pulse oximeter probe site changed incontinence pads utilized Intervention: Prevent and Manage VTE (Venous Thromboembolism) Risk Flowsheets (Taken 08/21/20251733 by Juanita Vergara RN) VTE Prevention/Management: SCDs (sequential compression devices) on medication Intervention: Prevent Infection Flowsheets (Taken 08/21/20251733 by Juanita Vergara RN) Infection Prevention: environmental surveillance performed equipment surfaces disinfected hand hygiene promoted personal protective equipment utilized rest/sleep promoted single patient room provided visitors restricted/screened Goal: Optimal Comfort and Wellbeing Outcome: Ongoing, Progressing Problem: Pain Acute Goal: Optimal Pain Control and Function Outcome: Ongoing, Progressing Problem: Surgery Nonspecified Goal: Absence of Bleeding Outcome: Ongoing, Progressing Intervention: Monitor and Manage Bleeding Flowsheets (Taken 08/21/20251733 by Juanita Vergara RN) Bleeding Management: dressing monitored Goal: Effective Bowel Elimination Outcome: Ongoing, Progressing Intervention: Enhance Bowel Motility and Elimination Flowsheets Taken 08/22/2025 06 by Miya Al RN Bowel Motility Enhancement: ambulation promoted Taken 08/21/20251733 by Juanita Vergara RN Bowel Elimination Management: relaxation techniques promoted sitting position facilitated Goal: Fluid and Electrolyte Balance Outcome: Ongoing, Progressing Intervention: Monitor and Manage Fluid and Electrolyte Balance Flowsheets (Taken 08/21/20251733 by Juanita Vergara RN) Fluid/Electrolyte Management: fluids provided fluids adjusted Goal: Blood Glucose Level Within Target Range Outcome: Ongoing, Progressing Goal: Absence of Infection Signs and Symptoms Outcome: Ongoing, Progressing Intervention: Prevent or Manage Infection Flowsheets Taken 08/21/20251999 by Miya Al RN Isolation Precautions: precautions maintained Taken 08/21/20251733 by Juanita Vergara RN Infection Management: aseptic technique maintained Fever Reduction/Comfort Measures: lightweight bedding lightweight clothing Goal: Optimal Pain Control and Function Outcome: Ongoing, Progressing Intervention: Prevent or Manage Pain Flowsheets Taken 08/22/2025 044 by Miya Al RN Pain Management Interventions: medication (see MAR) Taken 08/21/20251733 by Juanita Vergara RN Diversional Activities: television smartphone Goal: Nausea and Vomiting Relief Outcome: Ongoing, Progressing Intervention: Prevent or Manage Nausea and Vomiting Flowsheets (Taken 08/21/20251733 by Juanita Vergara RN) Nausea/Vomiting Interventions: slow deep breathing encouraged Goal: Effective Urinary Elimination Outcome: Ongoing, Progressing Intervention: Monitor and Manage Urinary Retention Flowsheets (Taken 08/22/2025620) Urinary Elimination Promotion: catheter patency maintained Goal: Effective Oxygenation and Ventilation Outcome: Ongoing, Progressing Intervention: Optimize Oxygenation and Ventilation Flowsheets Taken 08/22/2025 06 by Miya Al RN Activity Management: activity adjusted per tolerance Head of Bed (HOB) Positioning: HOB elevated Taken 08/21/20251999 by iMya Al RN Cough And Deep Breathing: done independently per patient Taken 08/21/20251733 by Juanita Vergara RN Airway/Ventilation Management: airway patency maintained oxygen therapy provided Problem: Infection Goal: Absence of Infection Signs and Symptoms Outcome: Ongoing, Progressing Intervention: Prevent or Manage Infection Flowsheets Taken 08/21/20251999 by Miya Al RN Isolation Precautions: precautions maintained Taken 08/21/20251733 by Juanita Vergara RN Infection Management: aseptic technique maintained Fever Reduction/Comfort Measures: lightweight bedding lightweight clothing Problem: Skin Injury Risk Increased Goal: Skin Health and Integrity Outcome: Ongoing, Progressing Intervention: Optimize Skin Protection Flowsheets Taken 08/22/2025620 by Miya Al RN Pressure Reduction Devices: positioning supports utilized Taken 08/22/2025599 by Miya Al RN Activity Management: activity adjusted per tolerance Head of Bed (HOB) Positioning: HOB elevated Taken 08/21/20251733 by Juanita Vergara RN Skin Protection: transparent dressing maintained pulse oximeter probe site changed incontinence pads utilized * Progress Notes - Yessenia Jung MD - 08/22/2025 6:12 AM EDT Subjective NAEO, afebrile, VSS. On trach collar. Gr re-anchored due to need for straight cath. Tolerating tube feeds. CHULA 80ml SS. Hb 9.8. Objective Temp (24hrs), Av.9 ??C (98.4 ??F), Min:36.5 ??C (97.7 ??F), Max:37.3 ??C (99.1 ??F) Vitals: 08/22/25 0352 08/22/25 0413 08/22/25 0738 08/22/25 1132 BP: 135/79 112/65 109/68 BP Location: Left arm Left arm Patient Position: Lying Lying Pulse: 71 70 73 64 Resp: 18 Temp: 36.7 ??C (98 ??F) 36.5 ??C (97.7 ??F) 36.7 ??C (98 ??F) TempSrc: Axillary Axillary SpO2: 98% 99% Weight: Height: O2 Delivery Method: Humidified trach collar FiO2 (%): 28 % I O Shift I O 24Hrs No intake/output data recorded. I/O last 3 completed shifts: In: 871 (10 mL/kg) [NG/GT:651; IV Piggyback:220] Out: 2192 (25.2 mL/kg) [Urine:1917 (0.6 mL/kg/hr); Drains:275] Weight: 87.1 kg Patient Lines/Drains/Airways Status Active Active LDAs Name Placement date Placement time Site Days Peripheral IV 08/19/25 Right Antecubital 08/19/25 0704 Antecubital 3 Peripheral IV 08/19/25 Left Hand 08/19/25 0829 Hand 3 Peripheral IV 08/19/25 Left Foot 08/19/25 0935 Foot 3 Closed/Suction Drain Anterior;Right Neck Bulb 15 Fr. 08/19/25 1650 Neck 2 Urethral Catheter Double-lumen;Temperature probe 08/21/25 1834 -- less than 1 Surgical Airway Shiley Cuffed 6 08/19/25 1727 6 2 Feeding Tube Left nare 08/19/25 1759 Left nare 2 Negative Pressure Wound Therapy Leg Anterior;Lower;Right 08/19/25 1541 Leg 2 I have reviewed the active problem list, medication list, lab results, and imaging. Physical Exam HENT: Mouth/Throat: Mouth: Mucous membranes are moist. Comments: Intra-oral flap skin paddle well-perfused, strong doppler signal, incision c/d/i Neck: Comments: Neck soft, incision C/D/I with Nylons in place, JPX1 SS Pulmonary: Comments: On trach collar Abdominal: Palpations: Abdomen is soft. Musculoskeletal: Comments: RLE CAM boot in place, WV holding suction, fires EHL/FHL Skin: General: Skin is warm. Capillary Refill: Capillary refill takes less than 2 seconds. Neurological: Mental Status: He is alert and oriented to person, place, and time. Psychiatric: Mood and Affect: Mood normal. Assessment/Plan Carlito Perez is a 54 y.o. 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 - Okay for OOBTC - CAM boot at all times, WBAT - WV in place over right leg, will change at bedside on 08/26 - [id number] mg for 1 month - Recommend 5 days antibiotics postoperatively - Continue tube feeds at goal - OMFS managing trach - SQH and SCDs for DVT ppx - Patient not appropriate for discharge at this time. Patient to remain inpatient until STSG which is tentatively planned for 08/28/25. - Plastic Surgery will continue to follow DVT ppx: SQH, SCDs Yessenia Jung MD Plastic & Reconstructive Surgery PGY-4 Pager [phone] Cosigned by Marvin Santana MD at 08/22/2025 5:47 PM EDT Associated attestation - Marvin Santana MD - 08/22/2025 5:47 PM EDT I saw and evaluated the patient. I discussed the case with the resident/fellow and agree with the findings and plan as documented. * Progress Notes - Marcelino Laurent, CLEM - 08/22/2025 4:40 AM EDT Images from the original note were not included. Oral & Maxillofacial Surgery Progress Note 08/22/25 [facility] Day: 4 Subjective HISTORY OF PRESENT ILLNESS Carlito Perez is a 54 y.o. 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 Procedure(s): 1) Left segmental mandibulectomy, left selective neck dissection, extraction of all remaining teeth, partial left glossectomy, tracheostomy creation with OMFS on 08/19/2025 2) Fibula free flap reconstruction with Plastic surgery on 08/19/2025 24 hr interval events :gr re-anchored, no BM, Tube feeds at goal, viotix removed by plastics, suctioned multiple times pain 05/23 requiring q4 pain control Edited by: Marcelino Laurent DMD at 08/22/2025 0531 Objective Last Recorded Vitals Temp: [36.7 ??C (98 ??F)-37.3 ??C (99.1 ??F)] 36.7 ??C (98 ??F) Heart Rate: [60-125] 70 Resp: [10-18] 18 BP: (98-135)/(62-79) 135/79 FiO2 (%): [28 %] 28 % Temp (24hrs), Av.1 ??C (98.7 ??F), Min:36.7 ??C (98 ??F), Max:37.3 ??C (99.1 ??F) Wt Readings from Last 1 Encounters: 08/19/25 87.1 kg (192 lb) PHYSICAL EXAMINATION GEN: NAD, resting comfortably. HEENT: Neck: soft, supple, minimally TTP. No fluctuant swellings noted. No evidence of hematoma. CHULA drain secured in place, holding sanguinous suction. 6-0 cuffed shiley trach secured in place with silk sutures. Nose: NG DHT in place. Intraoral: flap soft, warm, appropriate turgor, well-perfused, capillary refill <1 sec, hemostatic. CVS: Regular Rate, well perfused Pulm: Non-labored breathing on HTC 6-0 cuffed shiley trach secured in place with silk sutures. Neuro: 11T; Left CN V3 anesthetic Left CN VII marginal mandibular limited by immediate post-surgical swelling. Otherwise, CN II-IV, , VIII-XII grossly intact. MSK: Elevated RLE with CAM boot in place; Mild, soft edema noted with TTP; WV holding suction. DP and TP pulses palpable. Psych: Appropriate for situation, pleasant. I/O: Intake/Output Summary (Last 24 hours) at 08/22/2025 0736 Last data filed at 08/22/2025 0400 Gross per 24 hour Intake 651 ml Output 1447 ml Net -796 ml LABORATORY CBC WBC 11.20 (H) Hb 9.8 (L) Plt 271 Hct 29.6 (L) ANC ?? INR ??, PTT ??, Anti-Xa ?? BMP Na 139 Cl 102 BUN 15 Glu 95 K 3.8 Co2 27 Cr 0.52 (L) Ca 8.8 (L) iCa ?? Mg 2.0, Phos 3.1 MICROBIOLOGY Results Procedure Component Value Units Date/Time Cecelia auris Surveillance by PCR [[id number]] (Normal) Collected: 08/19/252018 Order Status: Completed Specimen: Swab from Axilla and Groin Updated: 08/21/25 1033 Cecelia auris PCR Result Not Detected Narrative: This PCR assay was developed and its performance characteristics determined by [facility] as appropriate for clinical purposes. This assay has not been cleared or approved bythe FDA, but is performed in a CLIA regulated laboratory that is qualified to perform high-complexity testing. Multi Drug Resistance Test [[id number]] Collected: 08/19/252018 Order Status: Completed Specimen: Swab from Nares and Nini Rectal Updated: 08/21/25 0733 Culture No growth at day 1 Narrative: This test was developed and its performance characteristics determined by the [facility]. Although the media is FDA-approved, it is not FDA-approved for all specimen types submitted. The FDA has determined that such clearance or approval is not necessary. This test is used for surveillance purposes. It should not be regarded as investigational or for research. The [facility] is certified under the ClinicalLaboratory Improvement Amendments of 1988 (CLIA-88) as qualified to perform high complexity clinical laboratory testing. IMAGING No new imaging Assessment/Plan Carlito Perez is a 54 y.o. male who is hospitalized for Floor of mouth squamous cell carcinoma s/p L mandibulectomy, glossectomy, neck dissection, tracheostomy, extraction of all remaining teeth with fibula free flap reconstruction on 08/19/2025. Patient is progressing as expected post-opera tively. #Left lateral Tongue and Floor of the mouth SCCa -s/p aforementioned procedures #Fibula Free Flap Reconstruction -Nothing around the neck -Continue Unasyn 3g q6h, DC 08/23/2025 -HOB elevated 30 degrees -Continue ASA for 30 days (DC 09/19/2025) and heparin -Continue ondansetron PRN for PONV prophylaxis -Continue esomeprazole -Continue Flap checks per plastic surgery -PTOT eval-appreciate recs -OOBTC 2x per day -CAM boot in place at all times - WBAT -Wound vac removal planned for 08/24/2025 -Skin graft planned for next week, date TBD #Dysphagia -Continue NPO -Continue TF -Advance to bolus TF #Trach Dependent -continue trach care -6-0 shiley -Plan to downsize after 2nd procedure with PRS #Post operative Pain control -acetaminophen q6h -gabapentin 3 times per day -oxycodone panel q4h PRN #Post operative constipation -Continue polyethylene glycol -Start senna -Continue to monitor #Postoperative Urine Retention -Gr Re-anchored -Continue to monitor strict I/Os #Hypothyroidism -Restarted home levothyroxine #GERD - Started on famotidine #CAD -Restarted home metoprolol #HTN -Continue to monitor #HLD -Restated home atorvastain #GAURANG Dispo: Continue Current Level of Care - Plan of care discussed with patient at bedside Marcelino Laurent DMD Cosigned by Alvaro Adrian DMD, MD at 08/26/2025 2:28 PM EDT Associated attestation - Alvaro Adrian DMD, MD - 08/26/2025 2:28 PM EDT Signature only. * Care Plan - Juanita Vergara RN - 08/21/2025 5:37 PM EDT Problem: Adult Inpatient Plan of Care Goal: Plan of Care Review Outcome: Ongoing, Progressing Flowsheets Taken 08/21/2025 1734 by Juanita Vergara RN Progress: improving Outcome Evaluation: Patient downgraded to PCU, patient learning how to suction mouth, and going over education needs for trach. at bedside. Taken 08/19/2025 2243 by Nely Cardoza RN Plan of Care Reviewed With: patient Goal: Patient-Specific Goal (Individualized) Outcome: Ongoing, Progressing Flowsheets (Taken 08/21/2025 1200) Patient/Family-Specific Goals (Include Timeframe): patient will have controlled pain by the end of the shift Individualized Care Needs: pain control Anxieties, Fears or Concerns: pain Goal: Absence of Hospital-Acquired Illness or Injury Outcome: Ongoing, Progressing Intervention: Identify and Manage Fall Risk Flowsheets (Taken 08/21/2025 1200) Safety Promotion/Fall Prevention: activity supervised assistive device/personal items within reach clutter-free environment maintained fall prevention program maintained lighting adjusted mobility aid in reach nonskid shoes/slippers when out of bed room organization consistent toileting scheduled safety round/check completed Intervention: Prevent Skin Injury Flowsheets Taken 08/21/20251733 Skin Protection: transparent dressing maintained pulse oximeter probe site changed incontinence pads utilized Taken 08/21/2025 1600 Body Position: weight shifting Intervention: Prevent and Manage VTE (Venous Thromboembolism) Risk Flowsheets (Taken 08/21/2025 173) VTE Prevention/Management: SCDs (sequential compression devices) on medication Intervention: Prevent Infection Flowsheets (Taken 08/21/2025 173) Infection Prevention: environmental surveillance performed equipment surfaces disinfected hand hygiene promoted personal protective equipment utilized rest/sleep promoted single patient room provided visitors restricted/screened Goal: Optimal Comfort and Wellbeing Outcome: Ongoing, Progressing Problem: Pain Acute Goal: Optimal Pain Control and Function Outcome: Ongoing, Progressing Problem: Surgery Nonspecified Goal: Absence of Bleeding Outcome: Ongoing, Progressing Intervention: Monitor and Manage Bleeding Flowsheets (Taken 08/21/20251733) Bleeding Management: dressing monitored Goal: Effective Bowel Elimination Outcome: Ongoing, Progressing Intervention: Enhance Bowel Motility and Elimination Flowsheets (Taken 08/21/2025 173) Bowel Elimination Management: relaxation techniques promoted sitting position facilitated Bowel Motility Enhancement: other (see comments) Goal: Fluid and Electrolyte Balance Outcome: Ongoing, Progressing Intervention: Monitor and Manage Fluid and Electrolyte Balance Flowsheets (Taken 08/21/2025 173) Fluid/Electrolyte Management: fluids provided fluids adjusted Goal: Blood Glucose Level Within Target Range Outcome: Ongoing, Progressing Intervention: Optimize Glycemic Control Flowsheets (Taken 08/21/20251733) Hyperglycemia Management: blood glucose monitored Hypoglycemia Management: blood glucose monitored Goal: Absence of Infection Signs and Symptoms Outcome: Ongoing, Progressing Intervention: Prevent or Manage Infection Flowsheets (Taken 08/21/20251733) Infection Management: aseptic technique maintained Fever Reduction/Comfort Measures: lightweight bedding lightweight clothing Isolation Precautions: precautions maintained protective Goal: Optimal Pain Control and Function Outcome: Ongoing, Progressing Intervention: Prevent or Manage Pain Flowsheets (Taken 08/21/20251733) Pain Management Interventions: medication (see MAR) Diversional Activities: television smartphone Goal: Nausea and Vomiting Relief Outcome: Ongoing, Progressing Intervention: Prevent or Manage Nausea and Vomiting Flowsheets (Taken 08/21/20251733) Nausea/Vomiting Interventions: slow deep breathing encouraged Goal: Effective Urinary Elimination Outcome: Ongoing, Progressing Goal: Effective Oxygenation and Ventilation Outcome: Ongoing, Progressing Intervention: Optimize Oxygenation and Ventilation Flowsheets (Taken 08/21/20251733) Activity Management: activity adjusted per tolerance Airway/Ventilation Management: airway patency maintained oxygen therapy provided Problem: Infection Goal: Absence of Infection Signs and Symptoms Outcome: Ongoing, Progressing Intervention: Prevent or Manage Infection Flowsheets (Taken 08/21/20251733) Infection Management: aseptic technique maintained Fever Reduction/Comfort Measures: lightweight bedding lightweight clothing Isolation Precautions: precautions maintained protective Problem: Skin Injury Risk Increased Goal: Skin Health and Integrity Outcome: Ongoing, Progressing Intervention: Optimize Skin Protection Flowsheets Taken 08/21/20251733 Activity Management: activity adjusted per tolerance Pressure Reduction Techniques: frequent weight shift encouraged Skin Protection: transparent dressing maintained pulse oximeter probe site changed incontinence pads utilized Taken 08/21/2025 1600 Head of Bed (HOB) Positioning: HOB at 30-45 degrees Intervention: Promote and Optimize Oral Intake Flowsheets (Taken 08/21/20251733) Oral Nutrition Promotion: rest periods promoted social interaction promoted Nutrition Interventions: diet adjusted * Progress Notes - Cynthia Sands RN - 08/21/2025 2:45 PM EDT . * Significant Event - Senia Cross PA - 08/21/2025 12:24 PM EDT Plastic Surgery Significant Event Carlito Perez is a 54 y.o. male with PMH of CAD (4 stents, 2022), HLD, hypothyroidism, who presents with a 3+ year history of left sided tongue/floor of mouth lesion now biopsy proven SCCa. Procedure(s): 1) Left segmental mandibulectomy, left selective neck dissection, extraction of all remaining teeth, partial left glossectomy, tracheostomy creation with OMFS on 08/19/2025 2) Fibula free flap reconstruction with Plastic surgery on 08/19/2025 Vioptix removed at bedside. Flap appears pink and well perfused. Patient tolerated well. Recommended q2 nursing flap checks. Please contact primary with any changes in flap or additional concerns. Senia Cross PA-C Plastic & Reconstructive Surgery * Progress Notes - Cynthia Sands RN - 08/21/2025 12:07 PM EDT Social Drivers of Health Food Insecurity: No Food Insecurity (08/21/2025) Hunger Vital Sign Worried About Running Out of Food in the Last Year: Never true Ran Out of Food in the Last Year: Never true Alcohol Use: Not At Risk (06/28/2025) AUDIT-C Frequency of Alcohol Consumption: Never Average Number of Drinks: Patient does not drink Frequency of Binge Drinking: Never Housing Stability: Low Risk (08/21/2025) Housing Stability Vital Sign Unable to Pay for Housing in the Last Year: No Number of Times Moved in the Last Year: 0 Homeless in the Last Year: No Tobacco Use: High Risk (08/09/2025) Patient History Smoking Tobacco Use: Every Day Smokeless Tobacco Use: Former Passive Exposure: Current Transportation Needs: No Transportation Needs (08/21/2025) PRAPARE - Transportation Lack of Transportation (Medical): No Lack of Transportation (Non-Medical): No Depression: Not on file Utilities: Not At Risk (08/21/2025) [facility] Utilities Threatened with loss of utilities: No Stress: Not on file Intimate Partner Violence: Not At Risk (08/21/2025) Humiliation, Afraid, Rape, and Kick questionnaire Fear of Current or Ex-Partner: No Emotionally Abused: No Physically Abused: No Sexually Abused: No Physical Activity: Not on file Social Connections: Not on file Financial Resource Strain: Not on file * Progress Notes - Roma Rolon MD - 08/21/2025 10:07 AM EDT Subjective NAEO. Reports pain in the right leg. On trach collar. Reports he has not voided spontaneously sincefoley removal. In and out cath overnight with approximately 500 ml of output. Passing gas. Tube feeds started. Objective Temp (24hrs), Av.7 ??C (99.9 ??F), Min:37.6 ??C (99.7 ??F), Max:37.9 ??C (100.2 ??F) Vitals: 08/21/25 0700 08/21/25 0800 08/21/25 0900 08/21/25 0905 BP: 118/62 128/65 118/67 Pulse: 70 70 84 76 Resp: 15 14 12 10 Temp: TempSrc: SpO2: 97% 98% 99% 97% Weight: Height: O2 Delivery Method: Humidified trach collar FiO2 (%): 28 % I O Shift I O 24Hrs No intake/output data recorded. I/O last 3 completed shifts: In: 345 (4 mL/kg) [NG/GT:75; IV Piggyback:270] Out: 3020 (34.7 mL/kg) [Urine:2475 (0.8 mL/kg/hr); Drains:545] Weight: 87.1 kg Patient Lines/Drains/Airways Status Active Active LDAs Name Placement date Placement time Site Days Peripheral IV 08/19/25 Right Antecubital 08/19/25 0704 Antecubital 2 Peripheral IV 08/19/25 Left Hand 08/19/25 0829 Hand 2 Peripheral IV 08/19/25 Left Foot 08/19/25 0935 Foot 2 Closed/Suction Drain Anterior;Right Neck Bulb 15 Fr. 08/19/25 1650 Neck 1 Male External Urinary Catheter 08/20/25 1524 Condom 08/20/25 1524 -- less than 1 Surgical Airway Shiley Cuffed 6 08/19/25 1727 6 1 Feeding Tube Left nare 08/19/25 1759 Left nare 1 Negative Pressure Wound Therapy Leg Anterior;Lower;Right 08/19/25 1541 Leg 1 I have reviewed the active problem list, medication list, lab results, and imaging. Physical Exam HENT: Mouth/Throat: Mouth: Mucous membranes are moist. Comments: Intra-oral flap skin paddle well-perfused, dopplerable signal, incision C/D/I, Vioptix inplace around 80% Neck: Comments: Neck soft, incision C/D/I with Nylons in place, JPX1 SS Pulmonary: Comments: On trach collar Abdominal: Palpations: Abdomen is soft. Musculoskeletal: Comments: RLE CAM boot in place, WV holding suction, fires EHL/FHL Skin: General: Skin is warm. Capillary Refill: Capillary refill takes less than 2 seconds. Neurological: Mental Status: He is alert and oriented to person, place, and time. Psychiatric: Mood and Affect: Mood normal. Assessment/Plan Carlito Perez is a 54 y.o. male who is currently hospitalized for Floor of mouth squamous cell carcinoma. Below are the current active hospital problems being managed. 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 #S/p right free fibula transfer for mandibular reconstruction -Multimodal pain control -Okay for OOBTC -CAM boot at all times -Vioptix in place, plan to remove 08/22 -WV in place over right leg, will remove 08/24, likely replace in anticipation of skin graft next week prior to discharge -SQH, ASA, SCDs #Tube feed dependent -Nutrition consulted for rec's -Advance to goal #Trach dependent, 6-Shiley -OMFS managing trach, appreciate rec's #Urinary retention, post-operative -CTM, I&O cath as needed -Low threshold to re-anchor gr #Acute blood loss anemia -CTM #Hypomagnesemia -Replete per protocol #Hypothyroidism, POA -Home synthroid re-started Dispo: Downgrade to Progressive. Transfer to [facility] primary. Cosigned by Marvin Santana MD at 08/21/2025 3:37 PM EDT Associated attestation - Marvin Santana MD - 08/21/2025 3:37 PM EDT I saw and evaluated the patient. I discussed the case with the resident/fellow and agree with the findings and plan as documented. Vioptix stable, doppler signal present, skin paddle with adequate capillary refill and no congestion. Likely step down to progressive today. * Progress Notes - Marcelino Laurent DMD - 08/21/2025 6:21 AM EDT Images from the original note were not included. Oral & Maxillofacial Surgery ICU Progress Note 08/21/25 Carlito Perez [facility] Day: 3 Subjective HISTORY OF PRESENT ILLNESS Carlito Perez is a 54 y.o. 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 Procedure(s): 1) Left segmental mandibulectomy, left selective neck dissection, extraction of all remaining teeth, partial left glossectomy, tracheostomy creation with OMFS on 08/19/2025 2) Fibula free flap reconstruction with Plastic surgery on 08/19/2025 24 hr interval events :Pain well controlled, NAOE, gr removed, a-line removed Objective Last Recorded Vitals Temp: [37.6 ??C (99.7 ??F)-37.9 ??C (100.2 ??F)] 37.6 ??C (99.7 ??F) Heart Rate: [58-90] 68 Resp: [10-25] 22 BP: (93-114)/(55-70) 108/63 Arterial Line BP: (104-111)/(54-57) 104/54 FiO2 (%): [28 %] 28 % Temp (24hrs), Av.7 ??C (99.9 ??F), Min:37.6 ??C (99.7 ??F), Max:37.9 ??C (100.2 ??F) Wt Readings from Last 1 Encounters: 08/19/25 87.1 kg (192 lb) Physical Exam GEN: NAD, resting comfortably. HEENT: Neck: soft, supple, minimally TTP. No fluctuant swellings noted. No evidence of hematoma. CHULA drain secured in place, holding sanguinous suction. 6-0 cuffed shiley trach secured in place with silk sutures. Nose: NG DHT in place. Intraoral: flap soft, warm, appropriate turgor, well-perfused, capillary refill <1 sec, hemostatic. Gauze in place. Vioptix 71-78%. CVS: Regular Rate, well perfused Pulm: Non-labored breathing on HCT 8/35. 6-0 cuffed shiley trach secured in place with silk sutures. Neuro: 11T; Left CN V3 anesthetic c/w/p. Left CN VII marginal mandibular limited by immediate post-surgical swelling. Otherwise, CN II-IV, , VIII-XII grossly intact. MSK: Elevated RLE with CAM boot in place; Mild, soft edema noted with TTP; WV holding suction. DP and TP pulses palpable. Psych: Appropriate for situation, pleasant. I&O Intake/Output Summary (Last 24 hours) at 08/21/2025 0721 Last data filed at 08/21/2025 0500 Gross per 24 hour Intake 345 ml Output 1780 ml Net -1435 ml MEDICATIONS Current Scheduled Medications[1] Current Continuous Medications[2] PRN Meds: Current PRN Medications[3] LABORATORY CBC WBC ?? Hb ?? Plt ?? Hct ?? ANC ?? INR ??, PTT ??, Anti-Xa ?? BMP Na ?? Cl ?? BUN ?? Glu ?? K ?? Co2 ?? Cr ?? Ca ?? iCa ?? Mg ??, Phos ?? Lactate ?? MICROBIOLOGY Results Procedure Component Value Units Date/Time Multi Drug Resistance Test [[id number]] Collected: 08/19/252018 Order Status: Sent Specimen: Swab from Nares and Nini Rectal Updated: 08/19/252029 Cecelia auris Surveillance by PCR [[id number]] Collected: 08/19/252018 Order Status: Sent Specimen: Swab from Axilla and Groin Updated: 08/19/252029 IMAGING No new imaging. Assessment/Plan Carlito Perez is a 54 y.o. male POD1 s/p left segmental mandibulectomy, left selective neckdissection, extraction of all remaining teeth, partial left glossectomy, tracheostomy creation withOMFS on 08/19/2025 and fibula free flap reconstruction with Plastic surgery on 08/19/2025. On exam,patient is progressing as expected post-operatively. #Left tongue/FOM SCCa - S/p left segmental mandibulectomy, left selective neck dissection, extraction of all remaining teeth, partial left glossectomy, tracheostomy creation with OMFS on 08/19/2025 and fibula free flap reconstruction with Plastic surgery on 08/19/2025 - Flap care per primary - Trach care per OMFS #Tracheostomy - Contact application analyst PGY-1 for acute trach concerns - 6-0 cuffed shiley - Secured with silk sutures - No changes to trach until after STSG - Care per OMFS #Acute Blood Loss Anemia - 2/2 intraoperative blood loss - Hgb:?? - Hct:?? - Management per primary #Leukocytosis - WBC: ?? - 2/2 surgery #Hypomagnesemia/Hypophosphatemia - Replace per ICU sliding scale policy #Postoperative pain - MMPC FEN - Sliding scale electrolytes per ICU protocol - NPO; DHT in place PPX - BR: Mirilax #Pre-Existing Health Problems of Patient #CAD #HLD #Hypothyroidism - Restarted Levothyroxine Marcelino Laurent DMD [facility] oil pit attendant PGY-1 Pager #: [phone] [1] acetaminophen, 1,000 mg, Nasogastric, q6h JOVANNI ampicillin-sulbactam, 3 g, Intravenous, q6h aspirin, 324 mg, Nasogastric, Daily bacitracin, 1 Jar, Topical, Daily famotidine, 20 mg, Nasogastric, BID gabapentin, 100 mg, Nasogastric, TID heparin (porcine), 5,000 Units, Subcutaneous, q8h JOVANNI levothyroxine, 50 mcg, Nasogastric, q AM metoprolol tartrate, 12.5 mg, Nasogastric, BID mupirocin, 1 Application, Each Nostril, BID polyethylene glycol, 17 g, Nasogastric, Daily [2] [3] PRN medications: [DISCONTINUED] ondansetron ODT OR ondansetron OR ondansetron, oxyCODONE Cosigned by Alvaro Adrian DMD, MD at 08/21/2025 9:21 AM EDT Associated attestation - Alvaro Adrian DMD, MD - 08/21/2025 9:21 AM EDT Signature only. * Care Plan - Estevan Nails - 08/21/2025 3:49 AM EDT Problem: Surgery Nonspecified Goal: Effective Urinary Elimination Outcome: Ongoing, Not Progressing Intervention: Monitor and Manage Urinary Retention Flowsheets (Taken 08/21/2025 0347) Urinary Elimination Promotion: bladder volume assessed by ultrasound positioned for ease of voiding voiding relaxation promoted Problem: Surgery Nonspecified Goal: Absence of Bleeding Outcome: Ongoing, Progressing Goal: Blood Glucose Level Within Target Range Outcome: Ongoing, Progressing Intervention: Optimize Glycemic Control Flowsheets (Taken 08/21/2025 0347) Hyperglycemia Management: blood glucose monitored Hypoglycemia Management: blood glucose monitored * Significant Event - Galina Renteria MD - 08/21/2025 3:30 AM EDT Images from the original note were not included. FARM HELPER Flap Check 08/21/2025 PROCEDURE: Right osteocutaneous free fibula for reconstruction of left oromandibular defect Reconstruction of mandible with a locking reconstruction plate Complex closure of intraoral wound with fibula skin paddle, 50 cm in length Layered closure of neck wound, 15 cm in length INTERVAL HX No acute events Prior interval flap checks unremarkable EXAM Current vitals: Visit Vitals BP 106/64 Pulse 61 Temp 37.6 ??C (99.7 ??F) (Oral) Resp 19 Ht 1.803 m (5' 11 ) Wt 87.1 kg (192 lb) SpO2 98% BMI 26.78 kg/m?? Smoking Status Every Day BSA 2.09 m?? Vitals trend reviewed Neck: flat, no hematoma, incision hemostatic, well approximated Oral: flap warm, pink,, normal turgor sutures intact, hemostatic Leg: wound vac intact, holding suction ASSESSMENT & PLAN 54 y.o. year old male s/p the above procedures, healing as expected without apparent flap compromise. Doppler signal strong - continue flap checks -Q2h Nursing, Q4h resident Galina Renteria DMD, MD Vascular Surgery Operations Developer Pager ID [phone] * Significant Event - Galina Renteria MD - 08/20/2025 8:01 PM EDT FARM HELPER Flap Check 08/20/2025 PROCEDURE: Right osteocutaneous free fibula for reconstruction of left oromandibular defect Reconstruction of mandible with a locking reconstruction plate Complex closure of intraoral wound with fibula skin paddle, 50 cm in length Layered closure of neck wound, 15 cm in length INTERVAL HX No acute events Prior interval flap checks unremarkable EXAM Current vitals: Visit Vitals BP 102/61 Pulse 68 Temp 37.6 ??C (99.7 ??F) (Oral) Resp 21 Ht 1.803 m (5' 11 ) Wt 87.1 kg (192 lb) SpO2 94% BMI 26.78 kg/m?? Smoking Status Every Day BSA 2.09 m?? Vitals trend reviewed Neck: flat, no hematoma, incision hemostatic, well approximated Oral: flap warm, pink,, normal turgor sutures intact, hemostatic Leg: wound vac intact, holding suction ASSESSMENT & PLAN 54 y.o. year old male s/p the above procedures, healing as expected without apparent flap compromise. - continue flap checks -Q2h Nursing, Q4h resident Galina Renteria DMD, MD Vascular Surgery Operations Developer Pager ID [phone] * Care Plan - Lizy Amador - 08/20/2025 6:20 PM EDT Problem: Adult Inpatient Plan of Care Goal: Optimal Comfort and Wellbeing Outcome: Ongoing, Progressing Intervention: Monitor Pain and Promote Comfort Flowsheets (Taken 08/20/20251818) Pain Management Interventions: medication (see MAR) emotional support position adjusted Intervention: Provide Person-Centered Care Flowsheets (Taken 08/20/20251818) Trust Relationship/Rapport: care explained choices provided emotional support provided empathic listening provided questions answered questions encouraged reassurance provided thoughts/feelings acknowledged Problem: Pain Acute Goal: Optimal Pain Control and Function Intervention: Optimize Psychosocial Wellbeing Flowsheets (Taken 08/20/20251818) Supportive Measures: active listening utilized self-care encouraged Diversional Activities: movies Spiritual Activities Assistance: affirmation provided Intervention: Develop Pain Management Plan Flowsheets (Taken 08/20/20251818) Pain Management Interventions: medication (see MAR) emotional support position adjusted Intervention: Prevent or Manage Pain Flowsheets (Taken 08/20/20251818) Sensory Stimulation Regulation: auditory stimulation minimized care clustered Bowel Elimination Promotion: privacy promoted Sleep/Rest Enhancement: awakenings minimized Medication Review/Management: medications reviewed high-risk medications identified * Progress Notes - Jackeline Rodriguez RN - 08/20/2025 10:06 AM EDT Case Management Adult Initial Progress Note Carlito Perez 54 y.o. male CSN: [id number] Admission: 08/19/2025 5:29 AM Primary Problem: Floor of mouth squamous cell carcinoma Automobile Insurance Claim Examiner reviewed chart and spoke with patient's spouse to complete this Initial Case Management Assessment. Patient intubated and CM unable to obtain SDOH information. PCP: Christina Arteaga APRN Emergency Contact: Extended Emergency Contact Information Primary Emergency Contact: Elicia Perez Address: [address] [place] [address] [facility] [place] Relation: Spouse Insurance: Primary Visit Coverage Payer Plan Sponsor Code Group Number Group Name [facility] [employer]IXKY Primary Visit Coverage Subscriber Subscriber ID Subscriber Name Subscriber SSN Subscriber Address [id number] Carlito Perez [id number] [address] [place] [address] Patient information: Primary Caregiver: Self Accompanied by/Relationship: spouse Support System: Immediate family Daily Living Activities: Functional Status: Independent Living Arrangements: Spouse/Significant other Type of Residence: Private residence, Single Level [address] [place] [address] Current DME: Equipment Currently Used at Home: none Current DME Provider: has a cane and crutches at [facility] if needed. Income Information: Income Source: Employed Income/Expense Information: Income meets expenses Current Resources Utilized: None Housing Circumstances-Z Codes: Housing Circumstances (select all that apply): None Applicable Anticipated Discharge Date: 08/26 Patient's Discharge Goal: tbd Assistance Available at Discharge: 06/06 per family. His sister is an RN, son is a certified control systems technician and he has a cousin who is an RN. Per spouse they are all able/willing to assist patient when dc home for hospital. Spouse also able to assist however she works many hours at her job. Discharge Transport: family Follow Up Transport: family Home Health / Home Infusion / Outpatient Dialysis Services: Current DME Provider: has a cane and crutches at [facility] if needed. Living Will/Advance Directive/Power of Animal Humane Agent Supervisor /Guardian: has copies of LW and POA . CM suggested she present these to a map clerk who may be able to scan into his epic/my chart. Additional Comments: Automobile Insurance Claim Examiner provided introduction of CM and information on CM role. Confirmed demographics in EPICare accurate. requested communication go to Email [email or web address] Jackeline Rodriguez RN * Progress Notes - Roma Rolon MD - 08/20/2025 8:23 AM EDT Subjective NAEO. Reports pain in the right leg. On trach collar. Objective Temp (24hrs), Av.1 ??C (100.6 ??F), Min:37.1 ??C (98.8 ??F), Max:38.6 ??C (101.5 ??F) Vitals: 08/20/25 0600 08/20/25 0700 08/20/25 0800 08/20/25 0813 BP: 114/70 123/68 113/70 BP Location: Patient Position: Lying Lying Pulse: 69 64 78 67 Resp: 22 18 12 22 Temp: 37.7 ??C (99.9 ??F) 37.7 ??C (99.9 ??F) 37.7 ??C (99.9 ??F) 37.7 ??C (99.9 ??F) TempSrc: Bladder Bladder SpO2: 97% 97% 100% 100% Weight: Height: O2 Delivery Method: Humidified trach collar ID SUP: 10 cm H20 Insp Time (sec): 1.4 sec FiO2 (%): 28 % S RR: 14 ID SUP: 10 cm H20 I O Shift I O 24Hrs I/O this shift: In: - Out: 100 [Drains:100] I/O last 3 completed shifts: In: 3782.7 (43.4 mL/kg) [I.V.:2235 (25.7 mL/kg); IV Piggyback:1547.7] Out: 2595 (29.8 mL/kg) [Urine:2010 (0.6 mL/kg/hr); Drains:185; Blood:400] Weight: 87.1 kg Patient Lines/Drains/Airways Status Active Active LDAs Name Placement date Placement time Site Days Peripheral IV 08/19/25 Right Antecubital 08/19/25 0704 Antecubital 1 Peripheral IV 08/19/25 Left Hand 08/19/25 0829 Hand less than 1 Peripheral IV 08/19/25 Left Foot 08/19/25 0935 Foot less than 1 Closed/Suction Drain Anterior;Right Neck Bulb 15 Fr. 08/19/25 1650 Neck less than 1 Urethral Catheter Temperature probe;Non-latex 16 Fr. 08/19/25 0830 -- less than 1 Surgical Airway Shiley Cuffed 6 08/19/25 1727 6 less than 1 Arterial Line 08/19/25 Right Radial 08/19/25 0839 Radial less than 1 Feeding Tube Left nare 08/19/25 1759 Left nare less than 1 Negative Pressure Wound Therapy Leg Anterior;Lower;Right 08/19/25 1541 Leg less than 1 I have reviewed the active problem list, medication list, lab results, and imaging. Physical Exam HENT: Mouth/Throat: Mouth: Mucous membranes are moist. Comments: Intra-oral flap skin paddle well-perfused, dopplerable signal, incision C/D/I, Vioptix inplace around 80% Neck: Comments: Neck soft, incision C/D/I with Nylons in place, JPX1 SS Pulmonary: Comments: On trach collar Abdominal: Palpations: Abdomen is soft. Musculoskeletal: Comments: RLE CAM boot in place, WV holding suction, fires EHL/FHL Skin: General: Skin is warm. Capillary Refill: Capillary refill takes less than 2 seconds. Neurological: Mental Status: He is alert and oriented to person, place, and time. Psychiatric: Mood and Affect: Mood normal. Assessment/Plan Carlito Perez is a 54 y.o. male who is currently hospitalized for Floor of mouth squamous cell carcinoma. Below are the current active hospital problems being managed. 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 Cosigned by Marvin Santana MD at 08/20/2025 8:53 PM EDT Associated attestation - Marvin Santana MD - 08/20/2025 8:53 PM EDT I discussed the case with the resident/fellow and agree with the findings and plan as documented. Flap appears well perfused with intact doppler signal. Neck soft. Right lower extremity with intactcapillary refill. Dorsiflexion/plantar flexion of foot intact. Trickle feeds initiated. Continue heparin subQ and ASA. * Progress Notes - Rusty Melendrez DDS - 08/20/2025 6:08 AM EDT Images from the original note were not included. Oral & Maxillofacial Surgery ICU Progress Note 08/20/25 Carlito Perez [facility] Day: 2 Subjective HISTORY OF PRESENT ILLNESS Carlito Perez is a 54 y.o. male with PMH of CAD (4 stents, 2022), HLD, hypothyroidism, who presents with a 3+ year history of left sided tongue/floor of mouth lesion now biopsy proven SCCa. Procedure(s): 1) Left segmental mandibulectomy, left selective neck dissection, extraction of all remaining teeth, partial left glossectomy, tracheostomy creation with OMFS on 08/19/2025 2) Fibula free flap reconstruction with Plastic surgery on 08/19/2025 24 hr interval events : Taken to OR for aforementioned procedures 08/19. This is ICU day 1. Trach remains in place with [facility] . NAEO. Pt seen and evaluated at bedside by OMFS surgery residents. NPO.Tolerating pain on PO meds through DHT. + UOP. -BM. Pt mentating appropriately. Pt resting comfortably. HDS; AF. NAEO. Objective Last Recorded Vitals Temp: [37.1 ??C (98.8 ??F)-38.6 ??C (101.5 ??F)] 37.7 ??C (99.9 ??F) Heart Rate: [64-94] 64 Resp: [14-30] 18 BP: (93-123)/(54-70) 123/68 Arterial Line BP: (91-124)/(46-81) 110/53 FiO2 (%): [35 %] 35 % Temp (24hrs), Av.2 ??C (100.7 ??F), Min:37.1 ??C (98.8 ??F), Max:38.6 ??C (101.5 ??F) Wt Readings from Last 1 Encounters: 08/19/25 87.1 kg (192 lb) Physical Exam GEN: NAD, resting comfortably. HEENT: Neck: soft, supple, minimally TTP. No fluctuant swellings noted. No evidence of hematoma. CHULA drain secured in place, holding sanguinous suction. 6-0 cuffed shiley trach secured in place with silk sutures. Nose: NG DHT in place. Intraoral: flap soft, warm, appropriate turgor, well-perfused, capillary refill <1 sec, hemostatic. Gauze in place. Vioptix 71-78%. CVS: Regular Rate, well perfused Pulm: Non-labored breathing on HCT 8/35. 6-0 cuffed shiley trach secured in place with silk sutures. Neuro: 11T; Left CN V3 anesthetic c/w/p. Left CN VII marginal mandibular limited by immediate post-surgical swelling. Otherwise, CN II-IV, , VIII-XII grossly intact. MSK: Elevated RLE with CAM boot in place; Mild, soft edema noted with TTP; WV holding suction. DP and TP pulses palpable. Psych: Appropriate for situation, pleasant. I&O Intake/Output Summary (Last 24 hours) at 08/20/2025 0803 Last data filed at 08/20/2025 0700 Gross per 24 hour Intake 3782.67 ml Output 2695 ml Net 1087.67 ml MEDICATIONS Current Scheduled Medications[1] Current Continuous Medications[2] PRN Meds: Current PRN Medications[3] LABORATORY CBC WBC 16.03 (H) Hb 10.8 (L) Plt 290 Hct 31.2 (L) ANC ?? INR ??, PTT ??, Anti-Xa ?? BMP Na 136 Cl 101 BUN 16 Glu 140 (H) K 5.2 (H) Co2 23 Cr 0.64 (L) Ca 8.6 (L) iCa ?? Mg 1.8 (L), Phos 3.2 Lactate ?? ABG: pH, Arterial Date Value Ref Range Status 08/19/2025 7.38 7.35 - 7.45 Final pCO2, Arterial Date Value Ref Range Status 08/19/2025 42 32 - 45 mmHg Final pO2, Arterial Date Value Ref Range Status 08/19/2025 107 83 - 108 mmHg Final Bicarbonate, Calculated, Arterial Date Value Ref Range Status 08/19/2025 24 22 - 26 mmol/L Final MICROBIOLOGY Results Procedure Component Value Units Date/Time Multi Drug Resistance Test [[id number]] Collected: 08/19/252018 Order Status: Sent Specimen: Swab from Nares and Nini Rectal Updated: 08/19/252029 Cecelia auris Surveillance by PCR [[id number]] Collected: 08/19/252018 Order Status: Sent Specimen: Swab from Axilla and Groin Updated: 08/19/252029 IMAGING XR Abdomen 1 View Result Date: 08/19/2025 The tip of the feeding tube is within the proximal stomach CRITICAL RESULT: No. COMMUNICATION: Per this written report. Drafted by Patricio Trevino MD on 08/19/2025 8:53 PM Final report signed by MD Rex on 08/19/2025 8:53 PM Radiographic Interpretation: I have reviewed the imaging above and agree with the radiologist interpretation. Assessment/Plan Carlito Perez is a 54 y.o. male POD1 s/p left segmental mandibulectomy, left selective neckdissection, extraction of all remaining teeth, partial left glossectomy, tracheostomy creation withOMFS on 08/19/2025 and fibula free flap reconstruction with Plastic surgery on 08/19/2025. On exam,patient is progressing as expected post-operatively. #Left tongue/FOM SCCa - S/p left segmental mandibulectomy, left selective neck dissection, extraction of all remaining teeth, partial left glossectomy, tracheostomy creation with OMFS on 08/19/2025 and fibula free flap reconstruction with Plastic surgery on 08/19/2025 - Flap care per primary - Trach care per OMFS #Tracheostomy - 6-0 cuffed shiley - Secured with silk sutures - No changes to trach until after STSG - Care per OMFS #Acute Blood Loss Anemia - 2/2 intraoperative blood loss - Hgb:10.8 (L) - Hct:31.2 (L) - Management per primary #Leukocytosis - WBC: 16.03 (H) - 2/2 surgery #Hypomagnesemia/Hypophosphatemia - Replace per ICU sliding scale policy #Postoperative pain - MMPC FEN - Sliding scale electrolytes per ICU protocol - NPO; DHT in place PPX - BR: Mirilax #Pre-Existing Health Problems of Patient #CAD #HLD #Hypothyroidism - Restarted Levothyroxine Rusty Melendrez DDS [place] [facility], PGY-1 [1] acetaminophen, 650 mg, Nasogastric, q6h JOVANNI aspirin, 324 mg, Nasogastric, Daily bacitracin, 1 Jar, Topical, Daily famotidine, 20 mg, Nasogastric, BID gabapentin, 100 mg, Nasogastric, TID levothyroxine, 50 mcg, Nasogastric, q AM mupirocin, 1 Application, Each Nostril, BID polyethylene glycol, 17 g, Nasogastric, Daily [2] [3] PRN medications: [DISCONTINUED] ondansetron ODT OR ondansetron OR ondansetron, oxyCODONE Cosigned by Alvaro Adrian DMD, MD at 08/21/2025 9:20 AM EDT Associated attestation - Alvaro Adrian DMD, MD - 08/21/2025 9:20 AM EDT Signature only. * Significant Event - Mike Kraft DO - 08/20/2025 5:32 AM EDT Free Flap Check Note [@[id number]] Carlito Perez is a 54 y.o. male POD#0 from: Procedure(s) (LRB): Left mandibular reconstruction with right free fibula, complex closure of oral wound, (Bilateral) EXCISION, NEOPLASM, MALIGNANT, MANDIBLE (N/A) DISSECTION, NECK, RADICAL (N/A) GLOSSECTOMY (N/A) CREATION, TRACHEOSTOMY (N/A). S: Pt is doing well. Occasional episodes of coughing. Overall pain is controlled. Denies n/v. O: Blood pressure 111/67, pulse 67, temperature 38 ??C (100.4 ??F), temperature source Bladder, resp. rate 19, height 1.803 m (5' 11 ), weight 87.1 kg (192 lb), SpO2 95%. Physical Exam: GEN: NAD, laying comfortably in bed HEENT: Intra-oral skin paddle with pink, warm, well-perfused. Cap refill 2sec. Audible Doppler signals. Vioptix between 71-78% CV: RRR Pulm: equal chest rise bilaterally, breathing comfortably on trach collar Abd: soft, appropriately tender to palpation, non-distended; surgical dressing in place, clean dry and intact Ext: No LE swelling/edema, RLE WV in place, functioning appropriately A/P: Carlito Perez is a 54 y.o. male POD#0 from Procedure(s) (LRB): Left mandibular reconstruction with right free fibula, complex closure of oral wound, (Bilateral) EXCISION, NEOPLASM, MALIGNANT, MANDIBLE (N/A) DISSECTION, NECK, RADICAL (N/A) GLOSSECTOMY (N/A) CREATION, TRACHEOSTOMY (N/A). Currently stable on the floor and recovering well post-operatively. Flap checks remain unremarkable. Vioptix is noted to be positional. Vioptix probe at baseline level. * Significant Event - Lois Petersen MD - 08/20/2025 1:20 AM EDT Free Flap Check Note [@[id number]] Carlito Perez is a 54 y.o. male POD#0 from: Procedure(s) (LRB): Left mandibular reconstruction with right free fibula, complex closure of oral wound, (Bilateral) EXCISION, NEOPLASM, MALIGNANT, MANDIBLE (N/A) DISSECTION, NECK, RADICAL (N/A) GLOSSECTOMY (N/A) CREATION, TRACHEOSTOMY (N/A). S: Pt is doing well. Occasional episodes of coughing. Overall pain is controlled. Denies n/v. O: Blood pressure 111/67, pulse 76, temperature (!) 38.2 ??C (100.8 ??F), temperature source Bladder, resp. rate 14, height 1.803 m (5' 11 ), weight 87.1 kg (192 lb), SpO2 93%. Physical Exam: GEN: NAD, laying comfortably in bed HEENT: Intra-oral skin paddle with pink, warm, well-perfused. Cap refill 2sec. Audible Doppler signals. Vioptix fluctuating and down to 55%, but is noted to be positional and returns to baseline withmanual pressure CV: RRR Pulm: equal chest rise bilaterally, breathing comfortably on trach collar Abd: soft, appropriately tender to palpation, non-distended; surgical dressing in place, clean dry and intact Ext: No LE swelling/edema, RLE WV in place, functioning appropriately A/P: Carlito Perez is a 54 y.o. male POD#0 from Procedure(s) (LRB): Left mandibular reconstruction with right free fibula, complex closure of oral wound, (Bilateral) EXCISION, NEOPLASM, MALIGNANT, MANDIBLE (N/A) DISSECTION, NECK, RADICAL (N/A) GLOSSECTOMY (N/A) CREATION, TRACHEOSTOMY (N/A). Currently stable on the floor and recovering well post-operatively. Flap checks remain unremarkable. Vioptix is noted to be positional. Vioptix probe re- inforced and secured at this time and back to baseline level. * Care Plan - Andie Cardoza-Aaliyah Oneill RN - 08/19/2025 10:48 PM EDT Problem: Adult Inpatient Plan of Care Goal: Plan of Care Review Outcome: Ongoing, Progressing Flowsheets (Taken 08/19/2025 4933) Progress: no change Plan of Care Reviewed With: patient Goal: Patient-Specific Goal (Individualized) Outcome: Ongoing, Progressing Flowsheets (Taken 08/19/20252015) Patient/Family-Specific Goals (Include Timeframe): pt will be free from falls this shift Individualized Care Needs: safety Anxieties, Fears or Concerns: DEREJE Goal: Absence of Hospital-Acquired Illness or Injury Outcome: Ongoing, Progressing Intervention: Identify and Manage Fall Risk Flowsheets (Taken 08/19/20252015) Safety Promotion/Fall Prevention: fall prevention program maintained safety round/check completed Intervention: Prevent Skin Injury Flowsheets (Taken 08/19/20252015) Skin Protection: incontinence pads utilized Intervention: Prevent Infection Flowsheets (Taken 08/19/20252015) Infection Prevention: environmental surveillance performed hand hygiene promoted equipment surfaces disinfected rest/sleep promoted single patient room provided Goal: Optimal Comfort and Wellbeing Outcome: Ongoing, Progressing Intervention: Monitor Pain and Promote Comfort Flowsheets (Taken 08/19/20252015) Pain Management Interventions: care clustered Intervention: Provide Person-Centered Care Flowsheets (Taken 08/19/20252015) Trust Relationship/Rapport: care explained emotional support provided reassurance provided Problem: Pain Acute Goal: Optimal Pain Control and Function Outcome: Ongoing, Progressing Intervention: Optimize Psychosocial Wellbeing Flowsheets (Taken 08/19/20252015) Supportive Measures: positive reinforcement provided relaxation techniques promoted Intervention: Develop Pain Management Plan Flowsheets (Taken 08/19/20252015) Pain Management Interventions: care clustered Intervention: Prevent or Manage Pain Flowsheets (Taken 08/19/20252015) Sensory Stimulation Regulation: quiet environment promoted care clustered lighting decreased Bowel Elimination Promotion: privacy promoted Sleep/Rest Enhancement: relaxation techniques promoted noise level reduced Medication Review/Management: medications reviewed Problem: Surgery Nonspecified Goal: Absence of Bleeding Outcome: Ongoing, Progressing Goal: Effective Bowel Elimination Outcome: Ongoing, Progressing Intervention: Enhance Bowel Motility and Elimination Flowsheets (Taken 08/19/20252015) Bowel Elimination Management: relaxation techniques promoted Goal: Fluid and Electrolyte Balance Outcome: Ongoing, Progressing Goal: Blood Glucose Level Within Target Range Outcome: Ongoing, Progressing Goal: Absence of Infection Signs and Symptoms Outcome: Ongoing, Progressing Intervention: Prevent or Manage Infection Flowsheets (Taken 08/19/20252015) Infection Management: aseptic technique maintained Fever Reduction/Comfort Measures: lightweight bedding lightweight clothing Goal: Anesthesia/Sedation Recovery Outcome: Ongoing, Progressing Intervention: Optimize Anesthesia Recovery Flowsheets (Taken 08/19/20252015) Stabilization Measures: verbal stimulation provided Safety Promotion/Fall Prevention: fall prevention program maintained safety round/check completed Reorientation Measures: clock in view Goal: Optimal Pain Control and Function Outcome: Ongoing, Progressing Intervention: Prevent or Manage Pain Flowsheets (Taken 08/19/20252015) Pain Management Interventions: care clustered Goal: Nausea and Vomiting Relief Outcome: Ongoing, Progressing Intervention: Prevent or Manage Nausea and Vomiting Flowsheets (Taken 08/19/20252015) Nausea/Vomiting Interventions: slow deep breathing encouraged Goal: Effective Urinary Elimination Outcome: Ongoing, Progressing Intervention: Monitor and Manage Urinary Retention Flowsheets (Taken 08/19/20252015) Urinary Elimination Promotion: catheter patency maintained Goal: Effective Oxygenation and Ventilation Outcome: Ongoing, Progressing Intervention: Optimize Oxygenation and Ventilation Flowsheets (Taken 08/19/20252015) Airway/Ventilation Management: airway patency maintained calming measures promoted Cough And Deep Breathing: done with encouragement * Significant Event - Mike Kraft, - 08/19/2025 9:33 PM EDT Free Flap Check Note [@[id number]] Carlito Perez is a 54 y.o. male POD#0 from: Procedure(s) (LRB): Left mandibular reconstruction with right free fibula, complex closure of oral wound, (Bilateral) EXCISION, NEOPLASM, MALIGNANT, MANDIBLE (N/A) DISSECTION, NECK, RADICAL (N/A) GLOSSECTOMY (N/A) CREATION, TRACHEOSTOMY (N/A). S: Pt is doing well. Reports that pain is controlled. Denies N/V. Denies CP and SOB. O: Blood pressure 111/67, pulse 72, temperature (!) 38.5 ??C (101.3 ??F), resp. rate 24, height 1.803 m (5' 11 ), weight 87.1 kg (192 lb), SpO2 96%. Physical Exam: GEN: NAD, laying comfortably in bed ENT: Flap appears pink, capillary refill <2, doppler sounds present. CV: RRR Pulm: equal chest rise bilaterally, breathing comfortably on 6l trach collar Abd: soft, appropriately tender to palpation, non-distended; surgical dressing in place, clean dry and intact Ext: RLE wound vac in place. No LE swelling/edema, [address] Drains: right neck suction drain DHT, gastric Gr A/P: Carlito Perez is a 54 y.o. male POD#0 from Procedure(s) (LRB): Left mandibular reconstruction with right free fibula, complex closure of oral wound, (Bilateral) EXCISION, NEOPLASM, MALIGNANT, MANDIBLE (N/A) DISSECTION, NECK, RADICAL (N/A) GLOSSECTOMY (N/A) CREATION, TRACHEOSTOMY (N/A). Currently stable on the floor and recovering well post-operatively. Please call with any questions or concerns. Mike Kraft DO Plastic and Reconstructive Surgery * Significant Event - Mike Kraft DO - 08/19/2025 9:22 PM EDT Images from the original note were not included. [facility] Department of Surgery Division of Plastic and Reconstructive Surgery Post-Operative Check Name: Carlito Perez Attending Provider: Marvin Santana MD Age/Sex: 54 y.o. male Unit: [facility] 5 T2 ICU Date & Time of Admission: 08/19/2025 5:29 AM Room/Bed: 238/238A PROCEDURE(S) Right osteocutaneous free fibula for reconstruction of left oromandibular defect Reconstruction of mandible with a locking reconstruction plate Complex closure of intraoral wound with fibula skin paddle, 50 cm in length Layered closure of neck wound, 15 cm in length SUBJECTIVE Patient is resting comfortably in bed upon entering the room. His pain well- controlled on the current medication regimen. He denies any other acute concerns or complaints at this time. Nausea: Denies Vomiting: Denies Abdominal Pain: Denies Diarrhea: Denies Constipation: Denies REVIEW OF SYSTEMS 14 point review of systems was obtained and is negative except for as above. SUBJECTIVE Vitals: 08/19/252044 BP: Pulse: 72 Resp: 20 Temp: (!) 38.6 ??C (101.5 ??F) SpO2: 95% Physical Exam Constitutional: Appearance: Normal appearance. HENT: Head: Atraumatic. Mouth/Throat: Comments: Trach collar in place. Eyes: Pupils: Pupils are equal, round, and reactive to light. Cardiovascular: Rate and Rhythm: Normal rate. Pulses: Normal pulses. Pulmonary: Effort: Pulmonary effort is normal. Abdominal: General: Abdomen is flat. Palpations: Abdomen is soft. Musculoskeletal: Comments: RLE Wound vac in place to suction and wrap in place Skin: General: Skin is warm and dry. Capillary Refill: Capillary refill takes less than 2 seconds. Neurological: Mental Status: He is alert. SURGICAL INCISION(S) Location(s): left neck and fibula flap Closure Technique: Suture(s) Status: Open to Air, wound vac on fibula LINE(S) / DRAIN(S) / TUBE(S) Patient Lines/Drains/Airways Status Active Airway Name Placement date Placement time Site Days Surgical Airway Shiley Cuffed 6 08/19/25 1727 6 less than 1 Output by Drain (mL) 08/17/25699 - 08/17/25 18508/17/25 190 - 08/18/25 0659 08/18/25699 - 08/18/25 18508/18/251899 - 08/19/25 0659 08/19/25 07 - 08/19/25 18508/19/251899 - 08/19/25 2122 Closed/Suction Drain Anterior;Right Neck Bulb 15 Fr. 30 45 LABORATORY CBC BMP Results from last 7 days Lab Units 08/19/25 1223 08/19/25 0907 CALCIUM IONIZED WB mg/dL 4.5* 4.7 LACTIC ACID, WHOLE B mmol/L 1.0 1.1 LFT No lab exists for component: ALB , DBILI ABG pH: 7.38 pCO2: 42 pO2: 107 SPO2: 99 (H) FIO2: ?? HCO3: 24 BE: -0.8 CURRENT HOSPITAL MEDICATIONS Scheduled: Current Scheduled Medications[1] Continuous Infusions: Current Continuous Medications[2] PRN: Current PRN Medications[3] ASSESSMENT AND PLAN Saravanan Perez is a 54 y.o. male who is status-post the below procedure(s) on 08/19/25. Right osteocutaneous free fibula for reconstruction of left oromandibular defect Reconstruction of mandible with a locking reconstruction plate Complex closure of intraoral wound with fibula skin paddle, 50 cm in length Layered closure of neck wound, 15 cm in length His post-operative course has been unremarkable and he has been recovering appropriately. His pain is well-controlled and he is without any acute concerns or complaints at this time. Mike Kraft DO Plastic and Reconstructive Surgery [1] [START ON 08/20/2025] acetaminophen, 650 mg, Nasogastric, q6h JOVANNI [START ON 08/20/2025] aspirin, 324 mg, Nasogastric, Daily bacitracin, 1 Jar, Topical, Daily famotidine, 20 mg, Nasogastric, BID gabapentin, 100 mg, Nasogastric, TID [START ON 08/20/2025] levothyroxine, 50 mcg, Nasogastric, q AM mupirocin, 1 Application, Each Nostril, BID polyethylene glycol, 17 g, Nasogastric, Daily [2] [3] PRN medications: [DISCONTINUED] ondansetron ODT OR ondansetron OR ondansetron, oxyCODONE * Anesthesia PACU Signout - Desiree Miranda DO - 08/19/2025 7:31 PM EDT Patient: Saravanan Perez Anesthesia Type: general Vitals Value Taken Time BP 107/68 08/19/25 19:15 Temp 37.1 ??C (98.8 ??F) 08/19/25 18:15 Pulse 69 08/19/25 19:30 Resp 19 08/19/25 19:30 SpO2 97 % 08/19/25 19:30 Vitals shown include unfiled device data. Anesthesia PACU Signout Patient location during evaluation: PACU Level of consciousness: baseline (resting comfortably) Pain management: adequate (pain score 0-3) Airway patency: tracheostomy Hydration status: stable PONV: none Cardiovascular status: hemodynamically stable Respiratory status: spontaneous ventilation, unassisted and nonlabored ventilation (6L trach collar) Discharge Disposition: admit to inpatient unit Cosigned by Javier Foster MD at 08/20/2025 10:13 PM EDT Associated attestation - Javier Foster MD - 08/20/2025 10:13 PM EDT * Consults - Brenda Daniels RD - 08/19/2025 12:04 PM EDTAssociated Order(s): IP CONSULT TO NUTRITION SERVICES Adult Nutrition Evaluation Note Carlito Perez 54 y.o. 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 Past medical/ surgical history: Past Medical History[1] Surgical History[2] Social history: Social History[3] Additional comments: 08/19: Pt in OR location at time of consult & assessment. Vitals and Basic Assessment: BP: 122/75 Temp: 36.8 ??C (98.2 ??F) Oxygen Therapy: None (Room air) [place] Coma Scale Score: 15 Dex Scale Score: 21 Allergies: Fish, Shellfish Medications: Current Scheduled Medications[4] Current Continuous Medications[5] Current PRN Medications[6] Labs: No lab exists for component: ALB No results found for: MG Lab Results Component Value Date ALT 19 07/25/2025 AST 28 07/25/2025 ALKPHOS 55 07/25/2025 BILITOT 0.3 07/25/2025 Lab Results Component Value Date ALBUMIN 4.4 07/25/2025 No results found for: PREALBUMIN No results found for: CRP No results found for: HGBA1C No results found for: CHOL No results found for: HDL No results found for: LDLCALC No results found for: TRIG Anthropometrics: Height: 180.3 cm Weight: 87.1 kg IBW: 78.2 kg %IBW: 111.4 Adjusted Body Weight: N/A BMI: 26.8 Wt evaluation: Overweight Weight History: Wt Readings from Last 30 Encounters: 08/19/25 87.1 kg (192 lb) 08/09/25 90.5 kg (199 lb 8.3 oz) 07/30/25 94.3 kg (207 lb 14.3 oz) 07/25/25 94.2 kg (207 lb 10.8 oz) 07/25/25 94.1 kg (207 lb 7.3 oz) 07/09/25 95 kg (209 lb 7 oz) 07/04/25 94.4 kg (208 lb 1.8 oz) 07/04/25 94.4 kg (208 lb 1.8 oz) 07/01/25 94.2 kg (207 lb 10.8 oz) 06/28/25 93.7 kg (206 lb 9.1 oz) 06/25/25 96.1 kg (211 lb 13.8 oz) 04/14/23 97.5 kg (215 lb) Wt change: 7.4% loss / 1 month (severe), 10.7% loss / 4 months Estimated Needs: Kcal: 30-35 kcal/kg (0693-2334 kcal/d) Protein: 1.5-1.8 g/kg (131-157 g/d) Based on: Current wt (87.1 kg) Current Nutrition Intake: Diet: NPO Nutrition Support: None at this time Diet Experience & Nutrition History: Diet Education: Will monitor Pertinent Home Medications: Lipitor, Prilosec Nutrition Focused Physical Exam: Physical exam performed on (date): pending Assessment of Malnutrition: Nutrition Problem: Inadequate oral intake related to need for OR as evidenced by NPO status, anticipated need for TF to provide nutrition. Status of Nutrition Diagnosis: New Nutrition Interventions and Recommendations: NPO Inpatient continuous TF rec: Isosource 1.5 with goal rate of 85 ml/hr (1870 ml/day) Provides: 2805 kcal, 127 g protein, 329g CHO, 28g fiber, 110g fat, 1421 ml water, and 187% RDIs vit/min FW management per team at this time Inpatient / Discharge bolus TF rec: Isosource 1.7, goal of 7 cartons/d (1750 mL/d) Provides: 2625 kcal, 119 g Pro, 1337 mL FW/d FW: recommend 90 mL FW flushes before and after each bolus Recommend weekly weight monitoring Nutrition Monitoring and Goals: -Monitor tolerance and adequacy of enteral infusion, wt changes, bowel fxn, labs, skin integrity; and follow up per acuity -Avg >80% goal enteral volume daily Acuity Level: 4 Brenda Daniels, RD, LD [1] Past Medical History: Diagnosis Date Adverse effect of anesthesia allergy to shellfish, penicillan CAD (coronary artery disease) Cancer ([facility]) [id number] Coronary artery calcification Dental disease chipped teeth, jony block for vocal chord damage Fractures clavical surgery GERD (gastroesophageal reflux disease) 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 HLD (hyperlipidemia) HTN (hypertension) Hypothyroidism Reflux gastritis Substance abuse 1988 [2] Past Surgical History: Procedure Laterality Date APPENDECTOMY 1979 CARDIOTHORACIC PROCEDURE stents CAROTID STENT 04/26/2023 COLONOSCOPY 2023 CORONARY STENT PLACEMENT [id number] ORTHOPEDIC SURGERY repair to clavical OTHER SURGICAL HISTORY appendectomy, vasectomy THROAT SURGERY repair vocal chords [3] Social History Tobacco Use Smoking status: Every Day Current packs/day: 1.00 Average packs/day: 1 pack/day for 40.8 years (40.8 ttl pk-yrs) Types: Cigarettes Start date: 1984 Passive exposure: Current Smokeless tobacco: Former Types: Snuff, Chew Vaping Use Vaping status: Never Used Substance Use Topics Alcohol use: Never Drug use: Never [4] acetaminophen, 650 mg, Oral, q6h JOVANNI aspirin, 324 mg, Oral, Daily heparin (porcine), 5,000 Units, Subcutaneous, q8h JOVANNI [START ON 08/20/2025] levothyroxine, 50 mcg, Oral, q AM [START ON 08/20/2025] pantoprazole, 40 mg, Oral, Daily polyethylene glycol, 17 g, Nasogastric, Daily Povidone-Iodine, 1 Application, Nasal, Once sodium chloride, 10 mL, Intravenous, q12h [5] heparin (porcine) 10,000 Units in sodium chloride 0.9 % 1,010 mL OR irrigation, [6] PRN medications: chlorhexidine, heparin (porcine) 10,000 Units in sodium chloride 0.9 % 1,010 mL OR irrigation, lidocaine, lidocaine, lidocaine- EPINEPHrine, [DISCONTINUED] ondansetron ODT OR ondansetron OR ondansetron, oxyCODONE, Insert peripheral IV AND Saline lock IV AND sodium chloride AND sodium chloride * Op Note - Maxwell Goetz MD - 08/19/2025 8:53 AM EDT Operative Note Date: 08/19/25 Location: [facility] Name: Saravanan Perez, : 1970, Diagnoses: Pre-op Diagnosis Floor of mouth squamous cell carcinoma Post-op Diagnosis Floor of mouth squamous cell carcinoma Procedure(s): Tracheotomy, partial glossectomy left anterior tongue, left segmental mandibulectomy, left selective neck dissection, extraction of #2,3,5,6,7,8,9,10,11,12,13,15,28,29,31, Direct Laryngoscopy with Biopsy Attending Surgeon(s): Panel 1: * Marvin Santana R - Primary Panel 2: * Alvaro Adrian - Primary Beater Engineer Helper(s): Panel 1: * Roma Rolon MD - Resident - Assisting Panel 2: * Maxwell Goetz MD - Resident - Assisting * Dallin Hargrove MD - Resident - Assisting Anesthesia: General ASA: III Blood Administration: Blood Product Administration History None Estimated Blood Loss: 400 mL Drains: Closed/Suction Drain Anterior;Right Neck Bulb 15 Fr. (Active) Urethral Catheter Temperature probe;Non-latex 16 Fr. (Active) Implants Type Name Action Serial No. Plate PLATE MANDIBLE CUSTOM W/O ANGLE 2MM THCK - SNA - [id number] Used, Not Implanted NA Plate PLATE TI PSPC MATRIXMAND ANG RECON 7X23H/2MM LT - SNA - [id number] Implanted NA Screw SCREW 2.0MM MATRIXMANDIBLE ST 8MM - SNA - [id number] Used, Not Implanted NA Screw SCREW 2.0MM MATRIXMANDIBLE LOCK ST 8MM - SN/A - [id number] Implanted N/A SCREW 2.0MM MATRIXMANDIBLE LOCK ST 10MM - SN/A - [id number] Implanted N/A SCREW 2.0MM MATRIXMANDIBLE LOCK ST 10MM - SN/A - [id number] Implanted N/A SCREW 2.0MM MATRIXMANDIBLE LOCK ST 14MM - SN/A - [id number] Implanted N/A Specimen: Specimens ID Source Frozen? 1 Other (specify site) No Description: Left false cord, fresh for permanent 2 Other (specify site) Yes Description: iNFERIOR lINGUAL FOR FROZEN 3 Other (specify site) Yes Description: SUPERIOR LINGUAL FOR FROZEN 4 Other (specify site) Yes Description: ANTERIOR LINGUAL FOR FROZEN 5 Other (specify site) Yes Description: POSTERIOR LINGUAL FOR FROZEN 6 Other (specify site) No Description: Left Anterior Tongue, Long Long Anterior, Short short superior. Fresh for permanent. 7 Other (specify site) No Description: Left Level One A, fresh for permanent 8 Other (specify site) No Description: Left Level One B, fresh for permanent 9 Other (specify site) No Description: Left Mandible, Short short lateral, Long short anterior, LOng long medial. fresh for permanent 10 Other (specify site) Yes Description: Buccal Mucosa, FROZEN 11 Other (specify site) Yes Description: ANTERIOR LABIAL MUCOSA , frozen 12 Other (specify site) Yes Description: posterior lingual mucosa, FROZEN 13 Other (specify site) No Description: Left level neck 2, fresh for permanent 14 Other (specify site) No Description: Left level neck 3, fresh for permanent A Blood, Arterial Description: ABG Findings: All margins negative Indications: Saravanan Perez is an 54 y.o. male who is having surgery for Floor of mouth squamous cell carcinoma. Narrative: On 08/19/25 , the patient was met in the preoperative holding area. The H and P was updated, and theconsent was reviewed. The patient was then taken to the operating room and laid supine on the operating room table. All appropriate monitors were placed. The patient was easily intubated by the anesthesia team. At this time, preoperative antibiotics were given and a timeout was performed stating the patient's name and procedure and all were in agreeance. Next a headwrap and shoulder roll were placed and the neck was extended. Tracheotomy The sternum and cricoid cartilage were palpated and marked. A line was marked approximately 1 finger breath below the cricoid. This marked area was infiltrated with 2cc of 1% Lidocaine with 1:100,000epinephrine. After appropriate time was given for the local anesthesia to take effect, a horizontal incision measured approximately 1 cm and was made just below the palpable cricoid cartilage and first tracheal ring. Electrocautery was used to remove excess fat tissue to expose the strap muscles. The strap muscles were divided vertically and held apart using army-[employer] retractors. Dissection was continued until the fascia over the thyroid gland was reached. Blunt dissection was performed until the anterior trachea and cricoid cartilage were exposed. A #15 blade was used to incise trachea an Wethen asked our anesthesia colleagues to start slowly pulling back the ET tube until we visualized the tip of the tube moving out of sight. We then placed a 7.0 reinforced ET tube into the tracheotomysite. Ventilation was confirmed. There was good chest rise and no appreciable leak. The ET tube wassecured to the chest with 2 mattress sutures and the stay sutures were secured to the chest with steri strips and mastisol. Oral ET tube removed Direct Laryngoscopy with Biopsy Laryngoscope used to visualize the glottis and true and false cord. No evident massed, ulcerations,or mucosal changes noted. Cup forceps used to biopsy portion of the mucosa of the left false cord. The bed was then rotated 180 degrees. Next, the patient was prepped and draped in the usual sterilefashion and pressure points were padded. The surgical team then left to scrub and approached the table sterilely. Selective Neck Dissection Next the attention was directed toward the right selective neck dissection I - III. A natural skin crease was selected extending from the mastoid tip to cricoid region. 1% lidocaine with 1:100k epi was administered along the planned incision in an intradermal fashion. Approx. 5 cc was administered.Skin was incised with a Bovie to the level of the platysma. A subplatysmal flap was raised in a superior and inferior fashion to expose the inferior border of the mandible superiorly and the clavicleinferiorly. The external jugular vein and great auricular nerve were identified and preserved. Anterior jugular vein was clipped andligated. The fibrofatty tissue was raised off the sternocleidomastoid in a subfascial plane exposing the anterior and medial aspect of the SCM. The fibrofatty tissue was mobilized to expose and remove the lymph node basins of levels IIa, IIb, III Care was taken to identify the spinal accessory nerve CN XI, confirmed. The superior and inferior aspects of the internal jugular vein were identified, and exposed. Posterior belly of digastric, omohyoid and vertebral muscle was exposed to delineate the extent of dissection. The fibrofatty tissue is mobilized in a subfascial plane in a posterior to anterior fashion. Levelsl A, B were completed with care to identify and protect the marginal mandibular nerve. Fascia overlying the submandibular gland was raised, and the facial vein was identified, and clipped and raised superiorly to protect the marginal mandibular nerve. Submandibular gland was mobilized, with care toprotect the lingual nerve, hypoglossal nerve, and to ensure ligation of the proximal stump of facial artery, and submandibular duct. Level la was harvested following the identification of the contralateral anterior belly of digastric. The neck dissection specimen was notable for several enlarged, in durated lymph nodes in the location of Levels IB and IIA. The specimen was oriented and sent to pathology for permanent specimen. The neck was then irrigated with saline. Hemostasis was achieved. Resection Next, attention was turned intraorally where 1 cm ruler was used to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 08/27/2025 3: 44 AM EDT MAGNESIUM, PLASMA Routine 08/27/2025 3:4 4 AM EDT BASIC METABOLIC PANEL, PLASMA Routine 08/27/2025 3:44 AM EDT POCT GLUCOSE METER UNSOLICITED RESULTS Routine 08/26/2025 11:56 PM EDT OXYGEN THERAPY Routine 08/26/2025 8:00 PM EDT POCT GLUCOSE METER UNSOLICITED RESULTS Routine 08/26/2025 6:27 PM EDT WOUND VAC DRESSING CHANGES (NON-INSTILLATION) Routine 08/26/2025 1:00 PM EDT Wound of right lower extremity, initial encounter POCT GLUCOSE METER UNSOLICITED RESULTS Routine 08/26/2025 12:48 PM EDT OXYGEN THERAPY Routine 08/26/2025 8:00 AM EDT POCT GLUCOSE METER UNSOLICITED RESULTS Routine 08/26/2025 5:44 AM EDT CBC W/O DIFFERENTIAL Routine 08/26/2025 3:27 AM EDT PHOSPHORUS, PLASMA Routine 08/26/2025 3: 27 AM EDT MAGNESIUM, PLASMA Routine 08/26/2025 3:2 7 AM EDT BASIC METABOLIC PANEL, PLASMA Routine 08/26/2025 3:27 AM EDT POCT GLUCOSE METER UNSOLICITED RESULTS Routine 08/25/2025 11:38 PM EDT OXYGEN THERAPY Routine 08/25/2025 8:00 PM EDT POCT GLUCOSE METER UNSOLICITED RESULTS Routine 08/25/2025 5:08 PM EDT POCT GLUCOSE METER UNSOLICITED RESULTS Routine 08/25/2025 11:42 AM EDT OXYGEN THERAPY Routine 08/25/2025 8:00 AM EDT POCT GLUCOSE METER UNSOLICITED RESULTS Routine 08/25/2025 5:02 AM EDT POCT GLUCOSE METER UNSOLICITED RESULTS Routine 08/24/2025 11:06 PM EDT OXYGEN THERAPY Routine 08/24/2025 8:00 PM EDT POCT GLUCOSE METER UNSOLICITED RESULTS Routine 08/24/2025 5:33 PM EDT POCT GLUCOSE METER UNSOLICITED RESULTS Routine 08/24/2025 12:32 PM EDT OXYGEN THERAPY Routine 08/24/2025 8:00 AM EDT POCT GLUCOSE METER UNSOLICITED RESULTS Routine 08/24/2025 5:57 AM EDT CBC W/O DIFFERENTIAL Routine 08/24/2025 3:29 AM EDT PHOSPHORUS, PLASMA Routine 08/24/2025 3: 29 AM EDT MAGNESIUM, PLASMA Routine 08/24/2025 3:2 9 AM EDT BASIC METABOLIC PANEL, PLASMA Routine 08/24/2025 3:29 AM EDT POCT GLUCOSE METER UNSOLICITED RESULTS Routine 08/24/2025 12:46 AM EDT OXYGEN THERAPY Routine 08/23/2025 8:00 PM EDT POCT GLUCOSE METER UNSOLICITED RESULTS Routine 08/23/2025 6:45 PM EDT POCT GLUCOSE METER UNSOLICITED RESULTS Routine 08/23/2025 1:07 PM EDT OXYGEN THERAPY Routine 08/23/2025 8:00 AM EDT CBC W/O DIFFERENTIAL Routine 08/23/2025 3:26 AM EDT PHOSPHORUS, PLASMA Routine 08/23/2025 3: 26 AM EDT MAGNESIUM, PLASMA Routine 08/23/2025 3:2 6 AM EDT BASIC METABOLIC PANEL, PLASMA Routine 08/23/2025 3:26 AM EDT OXYGEN THERAPY Routine 08/22/2025 8:00 PM EDT OXYGEN THERAPY Routine 08/22/2025 8:00 AM EDT CBC W/O DIFFERENTIAL Routine 08/22/2025 5:02 AM EDT PHOSPHORUS, PLASMA Routine 08/22/2025 5: 02 AM EDT MAGNESIUM, PLASMA Routine 08/22/2025 5:0 2 AM EDT BASIC METABOLIC PANEL, PLASMA Routine 08/22/2025 5:02 AM EDT OXYGEN THERAPY Routine 08/21/2025 8:00 PM EDT OXYGEN THERAPY Routine 08/21/2025 8:00 AM EDT OXYGEN THERAPY Routine 08/20/2025 8:00 PM EDT OXYGEN THERAPY Routine 08/20/2025 8:12 AM EDT OXYGEN THERAPY Routine 08/20/2025 8:12 AM EDT OXYGEN THERAPY Routine 08/20/2025 8:12 AM EDT CBC W/O DIFFERENTIAL Routine 08/20/2025 5:56 AM EDT PHOSPHORUS, PLASMA Routine 08/20/2025 5: 56 AM EDT MAGNESIUM, PLASMA Routine 08/20/2025 5:5 6 AM EDT BASIC METABOLIC PANEL, PLASMA Routine 08/20/2025 5:56 AM EDT XR ABDOMEN 1 VIEW Routine 08/19/2025 8:3 7 PM EDT CECELIA AURIS SURVEILLANCE BY PCR Routine 08/19/2025 8:19 PM EDT MULTI DRUG RESISTANCE TEST Routine 08/19/2025 8:19 PM EDT BLOOD GAS PANEL, ARTERIAL STAT 08/19/2025 12:23 PM EDT 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 Routine 08/19/2025 10:32 AM EDT 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 Routine 08/19/2025 9:17 AM EDT Floor of mouth squamous cell carcinoma BLOOD GAS PANEL, ARTERIAL STAT 08/19/2025 9:07 AM EDT CREATION, TRACHEOSTOMY 08/19/2025 8:05 AM EDT 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 Needs Microinstruments, micrscope available, doppler, handheld ligasure, bovie, bipolar, tournique, tps drill and sawt ID PART REMOVAL TONGUE,<1/2 08/19/2025 8:05 AM EDT 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 Needs Microinstruments, micrscope available, doppler, handheld ligasure, bovie, bipolar, tournique, tps drill and sawt ID REMOVAL NODES, NECK,CERV CMPLT 08/19/2025 8:05 AM EDT 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 Needs Microinstruments, micrscope available, doppler, handheld ligasure, bovie, bipolar, tournique, tps drill and sawt ID REMV MALIG JAW BONE RADICAL 08/19/2025 8:05 AM EDT 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 Needs Microinstruments, micrscope available, doppler, handheld ligasure, bovie, bipolar, tournique, tps drill and sawt ID RECONSTR MANDIBLE,BONE PLATE 08/19/2025 8:05 AM EDT 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 Needs Microinstruments, micrscope available, doppler, handheld ligasure, bovie, bipolar, tournique, tps drill and sawt ID LAYR CLOS WND REST BODY 12.6-20 CM 08/19/2025 8:05 AM EDT 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 Needs Microinstruments, micrscope available, doppler, handheld ligasure, bovie, bipolar, tournique, tps drill and sawt ID REPR,FACE,GENITAL,ARGUETA ND,FT+5 CMCM/< 08/19/2025 8:05 AM EDT 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 Needs Microinstruments, micrscope available, doppler, handheld ligasure, bovie, bipolar, tournique, tps drill and sawt ID RECMPL WND HEAD,FAC,HAND 2.6-7.5 CM 08/19/2025 8:05 AM EDT 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 Needs Microinstruments, micrscope available, doppler, handheld ligasure, bovie, bipolar, tournique, tps drill and sawt ID BONE-SKIN GRAFT, MICROVASCULAR 08/19/2025 8:05 AM EDT 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 Needs Microinstruments, micrscope available, doppler, handheld ligasure, bovie, bipolar, tournique, tps drill and sawt TYPE AND SCREEN Routine 08/19/2025 7:05 AM EDT documented in this encounter Results * Phosphorus, Plasma (08/30/2025 3:00 AM EDT) Phosphorus, Plasma 4.2 2.5 - 4.5 mg/dL 08/30/2025 3:39 AM EDT [facility] Blood Venous blood specimen / Unknown Venipuncture / Unknown 08/30/2025 3:00 AM EDT 08/30/2025 3:11 AM EDT us Sin Min Nancy Singletary DMD, MD LAB BLOOD ORDERABLES Melida l Result Performing Organization Address City/[facility] Co de Phone Number [facility] [address] [place] [address] * Magnesium, Plasma (08/30/2025 3:00 AM EDT) Magnesium, Plasma 2.4 1.9 - 2.4 mg/dL 08/30/2025 3:39 AM EDT [facility] Blood Venous blood specimen / Unknown Venipuncture / Unknown 08/30/2025 3:00 AM EDT 08/30/2025 3:11 AM EDT us Sin Min Nancy Singletary DMD, MD LAB BLOOD ORDERABLES Melida l Result Performing Organization Address [facility] de Phone Number [facility] [address] [place] [address] * (ABNORMAL) CBC W/O Differential (08/30/2025 3:00 AM EDT) WBC Count 10.23 3.70 - 10.30 10*3/uL LAB HEMATOLOGY METHOD 08/30/2025 3:18 AM EDT [facility] RBC Count 3.18(L) 4.60 - 6.10 10*6/uL LAB HEMATOLOGY METHOD 08/30/2025 3:18 AM EDT [facility] HGB 9.9(L) 13.7 - 17.5 g/dL LAB HEMATOLOGY METHOD 08/30/2025 3:18 AM EDT [facility] HCT 30.3(L) 40.0 - 51.0 % LAB HEMATOLOGY METHOD 08/30/2025 3:18 AM EDT [facility] Platelet Count 550(H) 155 - 369 10*3/uL LAB HEMATOLOGY METHOD 08/30/2025 3:18 AM EDT [facility] MCV 95 79 - 98 fL LAB HEMATOLOGY METHOD 08/30/2025 3:18 AM EDT [facility] MCH 31.1 26.0 - 32.0 pg LAB HEMATOLOGY METHOD 08/30/2025 3:18 AM EDT [facility] MCHC 32.7 30.7 - 35.5 g/dL LAB HEMATOLOGY METHOD 08/30/2025 3:18 AM EDT [facility] RDW 13.2 11.5 - 14.5 % LAB HEMATOLOGY METHOD 08/30/2025 3:18 AM EDT [facility] MPV 8.7(L) 8.8 - 12.5 fL LAB HEMATOLOGY METHOD 08/30/2025 3:18 AM EDT [facility] nRBC 0.0 <=0.0 per 100 WBCs LAB HEMATOLOGY METHOD 08/30/2025 3:18 AM EDT [facility] Blood Venous blood specimen / Unknown Venipuncture / Unknown 08/30/2025 3:00 AM EDT 08/30/2025 3:11 AM EDT us Sin Min M Hayder [place] MD LAB BLOOD ORDERABLES Melida l Result [facility] [address] [place] [address] * (ABNORMAL) Basic Metabolic Panel, Plasma (08/30/2025 3:00 AM EDT) Glucose, Plasma 113(H) 74 - 99 mg/dL 08/30/2025 3:39 AM EDT [facility] BUN, Plasma 20 7 - 21 mg/dL 08/30/2025 3:39 AM EDT [facility] Creatinine, Plasma 0.68(L) 0.70 - 1.20 mg/dL 08/30/2025 3:39 AM EDT [facility] BUN/Creatinine Ratio 29 08/30/2025 3:39 AM EDT [facility] Sodium, Plasma 137 136 - 145 mmol/L 08/30/2025 3:39 AM EDT [facility] Potassium, Plasma 4.4 3.6 - 4.9 mmol/L 08/30/2025 3:39 AM EDT [facility] Chloride, Plasma 100 97 - 107 mmol/L 08/30/2025 3:39 AM EDT [facility] CO2, Plasma 28 22 - 29 mmol/L 08/30/2025 3:39 AM EDT [facility] Anion Gap 9 6 - 16 mmol/L 08/30/2025 3:39 AM EDT [facility] Total Calcium, Plasma 9.2 8.9 - 10.2 mg/dL 08/30/2025 3:39 AM EDT [facility] eGFRcr 111.8 mL/min/1.7 3m*2 08/30/2025 3:39 AM EDT [facility] Comment:Reported eGFRcr in m L/min/1.73m2 is based the CKD-EPI 2020 equation that does not use a race coefficient. Blood Venous blood specimen / Unknown Venipuncture / Unknown 08/30/2025 3:00 AM EDT 08/30/2025 3:11 AM EDT us Sin Min Nancy Singletary DMD, MD LAB BLOOD ORDERABLES Melida l Result Performing Organization Address City/[facility]/ZIP Co de Phone Number [facility] [address] [place] [address] * Phosphorus, Plasma (08/29/2025 2:37 AM EDT) Phosphorus, Plasma 4.1 2.5 - 4.5 mg/dL 08/29/2025 3:13 AM EDT [facility] Blood Venous blood specimen / Unknown Venipuncture / Unknown 08/29/2025 2:37 AM EDT 08/29/2025 2:44 AM EDT us Sin Min Nancy Singletary DMD, MD LAB BLOOD ORDERABLES Melida l Result [facility] [address] [place] [address] * Magnesium, Plasma (08/29/2025 2:37 AM EDT) Magnesium, Plasma 2.2 1.9 - 2.4 mg/dL 08/29/2025 3:13 AM EDT [facility] Blood Venous blood specimen / Unknown Venipuncture / Unknown 08/29/2025 2:37 AM EDT 08/29/2025 2:44 AM EDT us Sin Min M Hayder [place] MD LAB BLOOD ORDERABLES Melida l Result [facility] [address] [place] [address] * (ABNORMAL) CBC W/O Differential (08/29/2025 2:37 AM EDT) Pathologist [facility] WBC Count 11.08(H) 3.70 - 10.30 10*3/uL LAB HEMATOLOGY METHOD 08/29/2025 2:57 AM EDT [facility] RBC Count 3.09(L) 4.60 - 6.10 10*6/uL LAB HEMATOLOGY METHOD 08/29/2025 2:57 AM EDT [facility] HGB 9.6(L) 13.7 - 17.5 g/dL LAB HEMATOLOGY METHOD 08/29/2025 2:57 AM EDT [facility] HCT 29.0(L) 40.0 - 51.0 % LAB HEMATOLOGY METHOD 08/29/2025 2:57 AM EDT [facility] Platelet Count 547(H) 155 - 369 10*3/uL LAB HEMATOLOGY METHOD 08/29/2025 2:57 AM EDT [facility] MCV 94 79 - 98 fL LAB HEMATOLOGY METHOD 08/29/2025 2:57 AM EDT [facility] MCH 31.1 26.0 - 32.0 pg LAB HEMATOLOGY METHOD 08/29/2025 2:57 AM EDT [facility] MCHC 33.1 30.7 - 35.5 g/dL LAB HEMATOLOGY METHOD 08/29/2025 2:57 AM EDT [facility] RDW 13.1 11.5 - 14.5 % LAB HEMATOLOGY METHOD 08/29/2025 2:57 AM EDT [facility] MPV 8.6(L) 8.8 - 12.5 fL LAB HEMATOLOGY METHOD 08/29/2025 2:57 AM EDT [facility] nRBC 0.0 <=0.0 per 100 WBCs LAB HEMATOLOGY METHOD 08/29/2025 2:57 AM EDT [facility] Blood Venous blood specimen / Unknown Venipuncture / Unknown 08/29/2025 2:37 AM EDT 08/29/2025 2:44 AM EDT us Sin Min M Hayder [place] MD LAB BLOOD ORDERABLES Melida l Result [facility] [address] [place] [address] * (ABNORMAL) Basic Metabolic Panel, Plasma (08/29/2025 2:37 AM EDT) Glucose, Plasma 110(H) 74 - 99 mg/dL 08/29/2025 3:13 AM EDT [facility] BUN, Plasma 19 7 - 21 mg/dL 08/29/2025 3:13 AM EDT [facility] Creatinine, Plasma 0.72 0.70 - 1.20 mg/dL 08/29/2025 3:13 AM EDT [facility] BUN/Creatinine Ratio 26 08/29/2025 3:13 AM EDT [facility] Sodium, Plasma 138 136 - 145 mmol/L 08/29/2025 3:13 AM EDT [facility] Potassium, Plasma 3.8 3.6 - 4.9 mmol/L 08/29/2025 3:13 AM EDT [facility] Chloride, Plasma 100 97 - 107 mmol/L 08/29/2025 3:13 AM EDT [facility] CO2, Plasma 25 22 - 29 mmol/L 08/29/2025 3:13 AM EDT [facility] Anion Gap 13 6 - 16 mmol/L 08/29/2025 3:13 AM EDT [facility] Total Calcium, Plasma 9.0 8.9 - 10.2 mg/dL 08/29/2025 3:13 AM EDT [facility] eGFRcr 109.9 mL/min/1.7 3m*2 08/29/2025 3:13 AM EDT [facility] Comment:Reported eGFRcr in m L/min/1.73m2 is based the CKD-EPI 2020 equation that does not use a race coefficient. Blood Venous blood specimen / Unknown Venipuncture / Unknown 08/29/2025 2:37 AM EDT 08/29/2025 2:44 AM EDT us Sin Dilan Singletary DMD, MD LAB BLOOD ORDERABLES Melida l Result Performing Organization Address City/[facility]/ZIP Co de Phone Number [facility] [address] [place] [address] * (ABNORMAL) POCT glucose meter (08/28/2025 5:41 AM EDT) [facility] POCT Glucose 105(H) 74 - 99 mg/dL 08/28/2025 5:42 AM EDT [facility] Comment:Accuracy of a glucos e result obtained from a capillary whole blood specimen relies upon adequate, non-compromised capillary blood flow. If the capillary glucose result is not consistent with the patient's clinical signs and symptoms, glucose testing should be repeated with either an arterial or venous sample on the glucometer or sent to the main labortory for testing. Comment 08/28/2025 5:42 AM EDT [facility] Learning Specialist ID Ralph BarajasDrewLavonne Parker 08/28/2025 5:42 AM EDT [facility] Device ID [id number] 08/28/2025 5:42 AM EDT [facility] Specimen Type POC Capillary 08/28/2025 5:42 AM EDT [facility] Blood Capillary blood specimen / Unknown 08/28/2025 5:41 AM EDT 08/28/2025 5:42 AM EDT Alvaro Adrian DMD, MD LAB POINT OF CA RE TEST DOCKED DEVICE UNSOLICITED RESULTS Final Result Performing Organization Address City/[facility] Co de Phone Number [facility] [address] [place] [address] * Phosphorus, Plasma (08/28/2025 3:54 AM EDT) [facility] Phosphorus, Plasma 4.3 2.5 - 4.5 mg/dL 08/28/2025 4:29 AM EDT [facility] Blood Venous blood specimen / Unknown Venipuncture / Unknown 08/28/2025 3:54 AM EDT 08/28/2025 3:59 AM EDT us Sin Min Nancy Singletary DMD, MD LAB BLOOD ORDERABLES Melida l Result Performing Organization Address City/[facility]/ZIP Co de Phone Number [facility] [address] [place] [address] * Magnesium, Plasma (08/28/2025 3:54 AM EDT) Magnesium, Plasma 2.2 1.9 - 2.4 mg/dL 08/28/2025 4:29 AM EDT [facility] Blood Venous blood specimen / Unknown Venipuncture / Unknown 08/28/2025 3:54 AM EDT 08/28/2025 3:59 AM EDT us Sin Min Nancy Singletary DMD, MD LAB BLOOD ORDERABLES Melida l Result Performing Organization Address City/[facility] Co de Phone Number [facility] [address] [place] [address] * (ABNORMAL) CBC W/O Differential (08/28/2025 3:54 AM EDT) WBC Count 10.56(H) 3.70 - 10.30 10*3/uL LAB HEMATOLOGY METHOD 08/28/2025 4:07 AM EDT [facility] RBC Count 3.08(L) 4.60 - 6.10 10*6/uL LAB HEMATOLOGY METHOD 08/28/2025 4:07 AM EDT [facility] HGB 9.5(L) 13.7 - 17.5 g/dL LAB HEMATOLOGY METHOD 08/28/2025 4:07 AM EDT [facility] HCT 28.8(L) 40.0 - 51.0 % LAB HEMATOLOGY METHOD 08/28/2025 4:07 AM EDT [facility] Platelet Count 552(H) 155 - 369 10*3/uL LAB HEMATOLOGY METHOD 08/28/2025 4:07 AM EDT [facility] MCV 94 79 - 98 fL LAB HEMATOLOGY METHOD 08/28/2025 4:07 AM EDT [facility] MCH 30.8 26.0 - 32.0 pg LAB HEMATOLOGY METHOD 08/28/2025 4:07 AM EDT [facility] MCHC 33.0 30.7 - 35.5 g/dL LAB HEMATOLOGY METHOD 08/28/2025 4:07 AM EDT [facility] RDW 13.1 11.5 - 14.5 % LAB HEMATOLOGY METHOD 08/28/2025 4:07 AM EDT [facility] MPV 8.7(L) 8.8 - 12.5 fL LAB HEMATOLOGY METHOD 08/28/2025 4:07 AM EDT [facility] nRBC 0.0 <=0.0 per 100 WBCs LAB HEMATOLOGY METHOD 08/28/2025 4:07 AM EDT [facility] Blood Venous blood specimen / Unknown Venipuncture / Unknown 08/28/2025 3:54 AM EDT 08/28/2025 3:59 AM EDT us Sin Min M Hayder NJ MD LAB BLOOD ORDERABLES Melida l Result [facility] [address] [place] [address] * (ABNORMAL) Basic Metabolic Panel, Plasma (08/28/2025 3:54 AM EDT) Glucose, Plasma 101(H) 74 - 99 mg/dL 08/28/2025 4:29 AM EDT [facility] BUN, Plasma 18 7 - 21 mg/dL 08/28/2025 4:29 AM EDT [facility] Creatinine, Plasma 0.62(L) 0.70 - 1.20 mg/dL 08/28/2025 4:29 AM EDT [facility] BUN/Creatinine Ratio 29 08/28/2025 4:29 AM EDT [facility] Sodium, Plasma 136 136 - 145 mmol/L 08/28/2025 4:29 AM EDT [facility] Potassium, Plasma 4.2 3.6 - 4.9 mmol/L 08/28/2025 4:29 AM EDT [facility] Chloride, Plasma 99 97 - 107 mmol/L 08/28/2025 4:29 AM EDT [facility] CO2, Plasma 28 22 - 29 mmol/L 08/28/2025 4:29 AM EDT [facility] Anion Gap 9 6 - 16 mmol/L 08/28/2025 4:29 AM EDT [facility] Total Calcium, Plasma 9.3 8.9 - 10.2 mg/dL 08/28/2025 4:29 AM EDT [facility] eGFRcr 115.0 mL/min/1.7 3m*2 08/28/2025 4:29 AM EDT [facility] Comment:Reported eGFRcr in m L/min/1.73m2 is based the CKD-EPI 2020 equation that does not use a race coefficient. Blood Venous blood specimen / Unknown Venipuncture / Unknown 08/28/2025 3:54 AM EDT 08/28/2025 3:59 AM EDT us Sin Min Nancy Singletary DMD, MD LAB BLOOD ORDERABLES Melida l Result [facility] [address] [place] [address] * Type and Screen (08/28/2025 3:54 AM EDT) ABO/Rh A Negative 08/28/2025 3:58 AM EDT [facility] Antibody Screen Negative 08/28/2025 3:58 AM EDT [facility] Specimen Expiration 08/31/2025 23:59 08/28/2025 3:58 AM EDT [facility] Blood Venous blood specimen / Unknown Venipuncture / Unknown 08/28/2025 3:54 AM EDT 08/28/2025 3:58 AM EDT us Alvaro Adrian DMD, MD LAB BLOOD BANK TEST ORD ERABLES Final Result Performing Organization Address City/[facility]/ZIP Co de Phone Number BLOOD BANK [address] [place] [address], [place] * POCT glucose meter (08/27/2025 11:01 PM EDT) Pathologist [facility] POCT Glucose 97 74 - 99 mg/dL 08/27/2025 11:03 PM EDT [facility] Comment:Accuracy of a glucos e result obtained from a capillary whole blood specimen relies upon adequate, non-compromised capillary blood flow. If the capillary glucose result is not consistent with the patient's clinical signs and symptoms, glucose testing should be repeated with either an arterial or venous sample on the glucometer or sent to the main labortory for testing. Comment 08/27/2025 11:03 PM EDT [facility]ALTH[facility] Learning Specialist ID Lavonne Mccauley 08/27/2025 11:03 PM EDT HEALTHCARE LAB Device ID [id number] 08/27/2025 11:03 PM EDT [facility]ALTH[facility]ARE [facility] Specimen Type POC Capillary 08/27/2025 11:03 PM EDT [facility]ALTH[facility]ARE LAB Blood Capillary blood specimen / Unknown 08/27/2025 11:01 PM EDT 08/27/2025 11:03 PM EDT us Alvaro Adrian DMD, MD LAB POINT OF CA RE TEST DOCKED DEVICE UNSOLICITED RESULTS Final Result Performing Organization Address City/State/[facility] Co de Phone Number [facility] [address] [place] [address] * (ABNORMAL) POCT glucose meter (08/27/2025 5:49 PM EDT) Pathologist [facility] POCT Glucose 119(H) 74 - 99 mg/dL 08/27/2025 5:54 PM EDT [facility] Comment:Accuracy of a glucos e result obtained from a capillary whole blood specimen relies upon adequate, non-compromised capillary blood flow. If the capillary glucose result is not consistent with the patient's clinical signs and symptoms, glucose testing should be repeated with either an arterial or venous sample on the glucometer or sent to the main labortory for testing. Comment 08/27/2025 5:54 PM EDT [facility] Learning Specialist ID Jarrod Kanika 08/27/2025 5:54 PM EDT [facility] Device ID [id number] 08/27/2025 5:54 PM EDT [facility] Specimen Type POC Capillary 08/27/2025 5:54 PM EDT HEALTHCARE [facility] Blood Capillary blood specimen / Unknown 08/27/2025 5:49 PM EDT 08/27/2025 5:54 PM EDT us Alvaro Adrian DMD, MD LAB POINT OF CA RE TEST DOCKED DEVICE UNSOLICITED RESULTS Final Result Performing Organization Address City/[facility]/ZIP Co de Phone Number [facility] [address] [place] [address] * (ABNORMAL) POCT glucose meter (08/27/2025 11:38 AM EDT) POCT Glucose 102(H) 74 - 99 mg/dL 08/27/2025 11:40 AM EDT [facility] Comment:Accuracy of a glucos e result obtained from a capillary whole blood specimen relies upon adequate, non-compromised capillary blood flow. If the capillary glucose result is not consistent with the patient's clinical signs and symptoms, glucose testing should be repeated with either an arterial or venous sample on the glucometer or sent to the main labortory for testing. Comment 08/27/2025 11:40 AM EDT [facility] Learning Specialist ID Kanika Garay 08/27/2025 11:40 AM EDT [facility] Device ID [id number] 08/27/2025 11:40 AM EDT [facility] LAB Specimen Type POC Capillary 08/27/2025 11:40 AM EDT [facility] Blood Capillary blood specimen / Unknown 08/27/2025 11:38 AM EDT 08/27/2025 11:40 AM EDT us Alvaro Adrian DMD, MD LAB POINT OF CA RE TEST DOCKED DEVICE UNSOLICITED RESULTS Final Result [facility] [address] [place] [address] * (ABNORMAL) POCT glucose meter (08/27/2025 5:42 AM EDT) POCT Glucose 144(H) 74 - 99 mg/dL 08/27/2025 5:43 AM EDT [facility] Comment:Accuracy of a glucos e result obtained from a capillary whole blood specimen relies upon adequate, non-compromised capillary blood flow. If the capillary glucose result is not consistent with the patient's clinical signs and symptoms, glucose testing should be repeated with either an arterial or venous sample on the glucometer or sent to the main labortory for testing. Comment 08/27/2025 5:43 AM EDT [facility] Learning Specialist ID Kirsty Garcia 08/27/2025 5:43 AM EDT [facility]ALTH[facility]ARE [facility] Device ID [id number] 08/27/2025 5:43 AM EDT [facility] Specimen Type POC Capillary 08/27/2025 5:43 AM EDT [facility] Blood Capillary blood specimen / Unknown 08/27/2025 5:42 AM EDT 08/27/2025 5:43 AM EDT us Alvaro Adrian DMD, MD LAB POINT OF CA RE TEST DOCKED DEVICE UNSOLICITED RESULTS Final Result Performing Organization Address City/[facility] Co de Phone Number [facility] [address] [place] [address] * Phosphorus, Plasma (08/27/2025 3:44 AM EDT) Phosphorus, Plasma 3.5 2.5 - 4.5 mg/dL 08/27/2025 4:29 AM EDT [facility] Blood Venous blood specimen / Unknown Venipuncture / Unknown 08/27/2025 3:44 AM EDT 08/27/2025 3:59 AM EDT us Khadar Singletary DMD, MD LAB BLOOD ORDERABLES Melida l Result [facility] [address] [place] [address] * Magnesium, Plasma (08/27/2025 3:44 AM EDT) Magnesium, Plasma 2.1 1.9 - 2.4 mg/dL 08/27/2025 4:29 AM EDT [facility] Blood Venous blood specimen / Unknown Venipuncture / Unknown 08/27/2025 3:44 AM EDT 08/27/2025 3:59 AM EDT us Sin Min M Hayder [place] MD LAB BLOOD ORDERABLES Melida l Result [facility] [address] [place] [address] * (ABNORMAL) CBC W/O Differential (08/27/2025 3:44 AM EDT) WBC Count 10.56(H) 3.70 - 10.30 10*3/uL LAB HEMATOLOGY METHOD 08/27/2025 4:13 AM EDT [facility] RBC Count 2.99(L) 4.60 - 6.10 10*6/uL LAB HEMATOLOGY METHOD 08/27/2025 4:13 AM EDT [facility] HGB 9.3(L) 13.7 - 17.5 g/dL LAB HEMATOLOGY METHOD 08/27/2025 4:13 AM EDT [facility] HCT 28.1(L) 40.0 - 51.0 % LAB HEMATOLOGY METHOD 08/27/2025 4:13 AM EDT [facility] Platelet Count 483(H) 155 - 369 10*3/uL LAB HEMATOLOGY METHOD 08/27/2025 4:13 AM EDT [facility] MCV 94 79 - 98 fL LAB HEMATOLOGY METHOD 08/27/2025 4:13 AM EDT [facility] MCH 31.1 26.0 - 32.0 pg LAB HEMATOLOGY METHOD 08/27/2025 4:13 AM EDT [facility] MCHC 33.1 30.7 - 35.5 g/dL LAB HEMATOLOGY METHOD 08/27/2025 4:13 AM EDT [facility] RDW 12.9 11.5 - 14.5 % LAB HEMATOLOGY METHOD 08/27/2025 4:13 AM EDT [facility] MPV 8.9 8.8 - 12.5 fL LAB HEMATOLOGY METHOD 08/27/2025 4:13 AM EDT [facility] nRBC 0.0 <=0.0 per 100 WBCs LAB HEMATOLOGY METHOD 08/27/2025 4:13 AM EDT [facility] Blood Venous blood specimen / Unknown Venipuncture / Unknown 08/27/2025 3:44 AM EDT 08/27/2025 4:00 AM EDT us Sin Min M Hayder [place] MD LAB BLOOD ORDERABLES Melida l Result [facility] [address] [place] [address] * (ABNORMAL) Basic Metabolic Panel, Plasma (08/27/2025 3:44 AM EDT) Pathologist [facility] Glucose, Plasma 99 74 - 99 mg/dL 08/27/2025 4:29 AM EDT [facility] BUN, Plasma 17 7 - 21 mg/dL 08/27/2025 4:29 AM EDT [facility] Creatinine, Plasma 0.60(L) 0.70 - 1.20 mg/dL 08/27/2025 4:29 AM EDT [facility] BUN/Creatinine Ratio 28 08/27/2025 4:29 AM EDT [facility] Sodium, Plasma 135(L) 136 - 145 mmol/L 08/27/2025 4:29 AM EDT [facility] Potassium, Plasma 4.2 3.6 - 4.9 mmol/L 08/27/2025 4:29 AM EDT [facility] Chloride, Plasma 99 97 - 107 mmol/L 08/27/2025 4:29 AM EDT [facility] CO2, Plasma 28 22 - 29 mmol/L 08/27/2025 4:29 AM EDT [facility] Anion Gap 8 6 - 16 mmol/L 08/27/2025 4:29 AM EDT [facility] Total Calcium, Plasma 9.2 8.9 - 10.2 mg/dL 08/27/2025 4:29 AM EDT [facility] eGFRcr 116.1 mL/min/1.7 3m*2 08/27/2025 4:29 AM EDT [facility] Comment:Reported eGFRcr in m L/min/1.73m2 is based the CKD-EPI 2020 equation that does not use a race coefficient. Blood Venous blood specimen / Unknown Venipuncture / Unknown 08/27/2025 3:44 AM EDT 08/27/2025 3:59 AM EDT us Khadar Singletary DMD, MD LAB BLOOD ORDERABLES Melida l Result Performing Organization Address City/[facility] Co de Phone Number [facility] [address] [place] [address] * (ABNORMAL) POCT glucose meter (08/26/2025 11:56 PM EDT) [facility] POCT Glucose 103(H) 74 - 99 mg/dL 08/26/2025 11:57 PM EDT [facility] Comment:Accuracy of a glucos e result obtained from a capillary whole blood specimen relies upon adequate, non-compromised capillary blood flow. If the capillary glucose result is not consistent with the patient's clinical signs and symptoms, glucose testing should be repeated with either an arterial or venous sample on the glucometer or sent to the main labortory for testing. Comment 08/26/2025 11:57 PM EDT [facility] Learning Specialist ID Kirsty Garcia 08/26/2025 11:57 PM EDT [facility]ALTH[facility]ARE LAB Device ID [id number] 08/26/2025 11:57 PM EDT [facility] Specimen Type POC Capillary 08/26/2025 11:57 PM EDT [facility] Blood Capillary blood specimen / Unknown 08/26/2025 11:56 PM EDT 08/26/2025 11:57 PM EDT Alvaro Adrian DMD, MD LAB POINT OF CA RE TEST DOCKED DEVICE UNSOLICITED RESULTS Final Result Performing Organization Address City/[facility] Co de Phone Number [facility] [address] [place] [address] * (ABNORMAL) POCT glucose meter (08/26/2025 6:27 PM EDT) [facility] POCT Glucose 106(H) 74 - 99 mg/dL 08/26/2025 6:28 PM EDT [facility] Comment:Accuracy of a glucos e result obtained from a capillary whole blood specimen relies upon adequate, non-compromised capillary blood flow. If the capillary glucose result is not consistent with the patient's clinical signs and symptoms, glucose testing should be repeated with either an arterial or venous sample on the glucometer or sent to the main labortory for testing. Comment 08/26/2025 6:28 PM EDT [facility] Learning Specialist ID Isha Lemos 08/26/2025 6:28 PM EDT [facility] LAB Device ID [id number] 08/26/2025 6:28 PM EDT [facility] Specimen Type POC Capillary 08/26/2025 6:28 PM EDT [facility] Blood Capillary blood specimen / Unknown 08/26/2025 6:27 PM EDT 08/26/2025 6:28 PM EDT Alvaro Adrian DMD, MD LAB POINT OF CA RE TEST DOCKED DEVICE UNSOLICITED RESULTS Final Result [facility] [address] [place] [address] * Wound VAC Dressing Changes (Non-Instillation) (08/26/2025 1:00 PM EDT) Narrative Senia Cross PA - 08/26/2025 1:00 PM EDT Senia Cross PA 08/27/2025 10:42 AM Wound VAC Dressing Changes (Non-Instillation) Date/Time: 08/26/2025 1:00 PM Performed by: Senia Cross PA Authorized by: Marvin Santana MD Consent: Consent obtained: Verbal Consent given by: Patient Risks discussed: Bleeding, infection, pain, nerve damage and incomplete drainage Procedure specific details: Previous wound vac sponge and canister replaced with new silver sponge and canister. Wound appears healthy with healthy granulation tissue measuring approx. 24 x 5 x 1 cm. Patient tolerated well. Post-procedure details: Procedure completion: Tolerated Marvin Santana MD WOUND/OSTOMY ORDERABLES Edited Result - Final * POCT glucose meter (08/26/2025 12:48 PM EDT) [facility] POCT Glucose 84 74 - 99 mg/dL 08/26/2025 12:50 PM EDT [facility] Comment:Accuracy of a glucos e result obtained from a capillary whole blood specimen relies upon adequate, non-compromised capillary blood flow. If the capillary glucose result is not consistent with the patient's clinical signs and symptoms, glucose testing should be repeated with either an arterial or venous sample on the glucometer or sent to the main labortory for testing. Comment 08/26/2025 12:50 PM EDT [facility] Learning Specialist ID Isha Lemos 08/26/2025 12:50 PM EDT [facility] Device ID [id number] 08/26/2025 12:50 PM EDT [facility] Specimen Type POC Capillary 08/26/2025 12:50 PM EDT [facility] Blood Capillary blood specimen / Unknown 08/26/2025 12:48 PM EDT 08/26/2025 12:50 PM EDT us Alvaro Adrian DMD, MD LAB POINT OF CA RE TEST DOCKED DEVICE UNSOLICITED RESULTS Final Result [facility] [address] [place] [address] * POCT glucose meter (08/26/2025 5:44 AM EDT) [facility] POCT Glucose 95 74 - 99 mg/dL 08/26/2025 5:46 AM EDT [facility] Comment:Accuracy of a glucos e result obtained from a capillary whole blood specimen relies upon adequate, non-compromised capillary blood flow. If the capillary glucose result is not consistent with the patient's clinical signs and symptoms, glucose testing should be repeated with either an arterial or venous sample on the glucometer or sent to the main labortory for testing. Comment 08/26/2025 5:46 AM EDT [facility] Learning Specialist ID Latisha Winter 08/26/2025 5:46 AM EDT [facility] Device ID [id number] 08/26/2025 5:46 AM EDT [facility] Specimen Type POC Capillary 08/26/2025 5:46 AM EDT [facility] Blood Capillary blood specimen / Unknown 08/26/2025 5:44 AM EDT 08/26/2025 5:46 AM EDT us Alvaro Adrian DMD, MD LAB POINT OF CA RE TEST DOCKED DEVICE UNSOLICITED RESULTS Final Result Performing Organization Address City/[facility] Co de Phone Number [facility] [address] [place] [address] * Phosphorus, Plasma (08/26/2025 3:27 AM EDT) Phosphorus, Plasma 4.0 2.5 - 4.5 mg/dL 08/26/2025 4:11 AM EDT [facility] Blood Venous blood specimen / Unknown Venipuncture / Unknown 08/26/2025 3:27 AM EDT 08/26/2025 3:38 AM EDT us Sin Min Nancy Singletary DMD, MD LAB BLOOD ORDERABLES Melida l Result Performing Organization Address [facility] Co de Phone Number [facility] [address] [place] [address] * Magnesium, Plasma (08/26/2025 3:27 AM EDT) Pathologist [facility] Magnesium, Plasma 2.2 1.9 - 2.4 mg/dL 08/26/2025 4:11 AM EDT [facility] Blood Venous blood specimen / Unknown Venipuncture / Unknown 08/26/2025 3:27 AM EDT 08/26/2025 3:38 AM EDT us Sin Min Nancy Singletary DMD, MD LAB BLOOD ORDERABLES Melida l Result Performing Organization Address City/[facility] Co de Phone Number [facility] [address] [place] [address] * (ABNORMAL) CBC W/O Differential (08/26/2025 3:27 AM EDT) WBC Count 11.66(H) 3.70 - 10.30 10*3/uL LAB HEMATOLOGY METHOD 08/26/2025 3:47 AM EDT [facility] RBC Count 3.00(L) 4.60 - 6.10 10*6/uL LAB HEMATOLOGY METHOD 08/26/2025 3:47 AM EDT [facility] HGB 9.2(L) 13.7 - 17.5 g/dL LAB HEMATOLOGY METHOD 08/26/2025 3:47 AM EDT [facility] HCT 28.1(L) 40.0 - 51.0 % LAB HEMATOLOGY METHOD 08/26/2025 3:47 AM EDT [facility] Platelet Count 455(H) 155 - 369 10*3/uL LAB HEMATOLOGY METHOD 08/26/2025 3:47 AM EDT [facility] MCV 94 79 - 98 fL LAB HEMATOLOGY METHOD 08/26/2025 3:47 AM EDT [facility] MCH 30.7 26.0 - 32.0 pg LAB HEMATOLOGY METHOD 08/26/2025 3:47 AM EDT [facility] MCHC 32.7 30.7 - 35.5 g/dL LAB HEMATOLOGY METHOD 08/26/2025 3:47 AM EDT [facility] RDW 12.6 11.5 - 14.5 % LAB HEMATOLOGY METHOD 08/26/2025 3:47 AM EDT [facility] MPV 9.0 8.8 - 12.5 fL LAB HEMATOLOGY METHOD 08/26/2025 3:47 AM EDT [facility] nRBC 0.0 <=0.0 per 100 WBCs LAB HEMATOLOGY METHOD 08/26/2025 3:47 AM EDT [facility] Blood Venous blood specimen / Unknown Venipuncture / Unknown 08/26/2025 3:27 AM EDT 08/26/2025 3:38 AM EDT us Sin Min M Hayder NJ MD LAB BLOOD ORDERABLES Melida l Result [facility] [address] [place] [address] * (ABNORMAL) Basic Metabolic Panel, Plasma (08/26/2025 3:27 AM EDT) Glucose, Plasma 101(H) 74 - 99 mg/dL 08/26/2025 4:11 AM EDT [facility] BUN, Plasma 19 7 - 21 mg/dL 08/26/2025 4:11 AM EDT [facility] Creatinine, Plasma 0.59(L) 0.70 - 1.20 mg/dL 08/26/2025 4:11 AM EDT [facility] BUN/Creatinine Ratio 32 08/26/2025 4:11 AM EDT [facility] Sodium, Plasma 138 136 - 145 mmol/L 08/26/2025 4:11 AM EDT [facility] Potassium, Plasma 4.3 3.6 - 4.9 mmol/L 08/26/2025 4:11 AM EDT [facility] Chloride, Plasma 101 97 - 107 mmol/L 08/26/2025 4:11 AM EDT [facility] CO2, Plasma 25 22 - 29 mmol/L 08/26/2025 4:11 AM EDT [facility] Anion Gap 12 6 - 16 mmol/L 08/26/2025 4:11 AM EDT [facility] Total Calcium, Plasma 8.9 8.9 - 10.2 mg/dL 08/26/2025 4:11 AM EDT [facility] eGFRcr 116.7 mL/min/1.7 3m*2 08/26/2025 4:11 AM EDT [facility] Comment:Reported eGFRcr in m L/min/1.73m2 is based the CKD-EPI 2020 equation that does not use a race coefficient. Blood Venous blood specimen / Unknown Venipuncture / Unknown 08/26/2025 3:27 AM EDT 08/26/2025 3:38 AM EDT us Sin Min M Hayder NJ MD LAB BLOOD ORDERABLES Melida l Result [facility] [address] [place] [address] * (ABNORMAL) POCT glucose meter (08/25/2025 11:38 PM EDT) POCT Glucose 129(H) 74 - 99 mg/dL 08/26/2025 12:00 AM EDT [facility] Comment:Accuracy of a glucos e result obtained from a capillary whole blood specimen relies upon adequate, non-compromised capillary blood flow. If the capillary glucose result is not consistent with the patient's clinical signs and symptoms, glucose testing should be repeated with either an arterial or venous sample on the glucometer or sent to the main labortory for testing. Comment 08/26/2025 12:00 AM EDT [facility] Learning Specialist ID Hailey Lund 08/26/2025 12:00 AM EDT [facility] Device ID [id number] 08/26/2025 12:00 AM EDT [facility] Specimen Type POC Capillary 08/26/2025 12:00 AM EDT [facility] Blood Capillary blood specimen / Unknown 08/25/2025 11:38 PM EDT 08/26/2025 12:00 AM EDT us Alvaro Adrian DMD, MD LAB POINT OF CA RE TEST DOCKED DEVICE UNSOLICITED RESULTS Final Result Performing Organization Address [facility] Co de Phone Number [facility] [address] [place] [address] * POCT glucose meter (08/25/2025 5:08 PM EDT) [facility] POCT Glucose 91 74 - 99 mg/dL 08/25/2025 5:10 PM EDT [facility] Comment:Accuracy of a glucos e result obtained from a capillary whole blood specimen relies upon adequate, non-compromised capillary blood flow. If the capillary glucose result is not consistent with the patient's clinical signs and symptoms, glucose testing should be repeated with either an arterial or venous sample on the glucometer or sent to the main labortory for testing. Comment 08/25/2025 5:10 PM EDT [facility] Learning Specialist ID Marily Cao 5:10 PM EDT [facility] Device ID [id number] 08/25/2025 5:10 PM EDT [facility] Specimen Type POC Capillary 08/25/2025 5:10 PM EDT [facility] Blood Capillary blood specimen / Unknown 08/25/2025 5:08 PM EDT 08/25/2025 5:10 PM EDT us Alvaro Adrian DMD, MD LAB POINT OF CA RE TEST DOCKED DEVICE UNSOLICITED RESULTS Final Result Performing Organization Address City/[facility]/ZIP Co de Phone Number [facility] [address] [place] [address] * (ABNORMAL) POCT glucose meter (08/25/2025 11:42 AM EDT) Pathologist [facility] POCT Glucose 112(H) 74 - 99 mg/dL 08/25/2025 12:00 PM EDT [facility] Comment:Accuracy of a glucos e result obtained from a capillary whole blood specimen relies upon adequate, non-compromised capillary blood flow. If the capillary glucose result is not consistent with the patient's clinical signs and symptoms, glucose testing should be repeated with either an arterial or venous sample on the glucometer or sent to the main labortory for testing. Comment 08/25/2025 12:00 PM EDT [facility] Learning Specialist ID Marily Cao 12:00 PM EDT [facility] Device ID [id number] 08/25/2025 12:00 PM EDT [facility] Specimen Type POC Capillary 08/25/2025 12:00 PM EDT [facility] Blood Capillary blood specimen / Unknown 08/25/2025 11:42 AM EDT 08/25/2025 12:00 PM EDT us Alvaro Adrian DMD, MD LAB POINT OF CA RE TEST DOCKED DEVICE UNSOLICITED RESULTS Final Result Performing Organization Address City/State/[facility] Co de Phone Number [facility] [address] [place] [address] * POCT glucose meter (08/25/2025 5:02 AM EDT) [facility] POCT Glucose 83 74 - 99 mg/dL 08/25/2025 5:04 AM EDT [facility] Comment:Accuracy of a glucos e result obtained from a capillary whole blood specimen relies upon adequate, non-compromised capillary blood flow. If the capillary glucose result is not consistent with the patient's clinical signs and symptoms, glucose testing should be repeated with either an arterial or venous sample on the glucometer or sent to the main labortory for testing. Comment 08/25/2025 5:04 AM EDT [facility] Learning Specialist ID JordanMaxwell 5:04 AM EDT [facility] Device ID [id number] 08/25/2025 5:04 AM EDT [facility] Specimen Type POC Capillary 08/25/2025 5:04 AM EDT [facility] Blood Capillary blood specimen / Unknown 08/25/2025 5:02 AM EDT 08/25/2025 5:04 AM EDT us Alvaro Adrian DMD, MD LAB POINT OF CA RE TEST DOCKED DEVICE UNSOLICITED RESULTS Final Result Performing Organization Address City/[facility]/ZIP Co de Phone Number [facility] [address] [place] [address] * (ABNORMAL) POCT glucose meter (08/24/2025 11:06 PM EDT) POCT Glucose 107(H) 74 - 99 mg/dL 08/24/2025 11:08 PM EDT [facility] Comment:Accuracy of a glucos e result obtained from a capillary whole blood specimen relies upon adequate, non-compromised capillary blood flow. If the capillary glucose result is not consistent with the patient's clinical signs and symptoms, glucose testing should be repeated with either an arterial or venous sample on the glucometer or sent to the main labortory for testing. Comment 08/24/2025 11:08 PM EDT [facility] Learning Specialist ID Hailey Lund 08/24/2025 11:08 PM EDT [facility] Device ID [id number] 08/24/2025 11:08 PM EDT [facility] Specimen Type POC Capillary 08/24/2025 11:08 PM EDT [facility] Blood Capillary blood specimen / Unknown 08/24/2025 11:06 PM EDT 08/24/2025 11:08 PM EDT us Alvaro Adrian DMD, MD LAB POINT OF CA RE TEST DOCKED DEVICE UNSOLICITED RESULTS Final Result [facility] [address] [place] [address] * (ABNORMAL) POCT glucose meter (08/24/2025 5:33 PM EDT) POCT Glucose 133(H) 74 - 99 mg/dL 08/24/2025 5:35 PM EDT [facility] Comment:Accuracy of a glucos e result obtained from a capillary whole blood specimen relies upon adequate, non-compromised capillary blood flow. If the capillary glucose result is not consistent with the patient's clinical signs and symptoms, glucose testing should be repeated with either an arterial or venous sample on the glucometer or sent to the main labortory for testing. Comment 08/24/2025 5:35 PM EDT [facility] Learning Specialist ID Renee Mills 08/24/2025 5:35 PM EDT [facility] Device ID [id number] 08/24/2025 5:35 PM EDT [facility] Specimen Type POC Capillary 08/24/2025 5:35 PM EDT [facility] Blood Capillary blood specimen / Unknown 08/24/2025 5:33 PM EDT 08/24/2025 5:35 PM EDT Alvaro Adrian DMD, MD LAB POINT OF CA RE TEST DOCKED DEVICE UNSOLICITED RESULTS Final Result Performing Organization Address City/State/[facility] Co de Phone Number [facility] [address] [place] [address] * (ABNORMAL) POCT glucose meter (08/24/2025 12:32 PM EDT) POCT Glucose 117(H) 74 - 99 mg/dL 08/24/2025 12:38 PM EDT [facility] Comment:Accuracy of a glucos e result obtained from a capillary whole blood specimen relies upon adequate, non-compromised capillary blood flow. If the capillary glucose result is not consistent with the patient's clinical signs and symptoms, glucose testing should be repeated with either an arterial or venous sample on the glucometer or sent to the main labortory for testing. Comment 08/24/2025 12:38 PM EDT [facility] Learning Specialist ID Renee Mills 08/24/2025 12:38 PM EDT [facility] Device ID [id number] 08/24/2025 12:38 PM EDT [facility] Specimen Type POC Capillary 08/24/2025 12:38 PM EDT [facility] Blood Capillary blood specimen / Unknown 08/24/2025 12:32 PM EDT 08/24/2025 12:38 PM EDT Alvaro Adrian DMD, MD LAB POINT OF CA RE TEST DOCKED DEVICE UNSOLICITED RESULTS Final Result Performing Organization Address City/[facility] Co de Phone Number [facility] [address] [place] [address] * POCT glucose meter (08/24/2025 5:57 AM EDT) POCT Glucose 92 74 - 99 mg/dL 08/24/2025 5:59 AM EDT [facility] Comment:Accuracy of a glucos e result obtained from a capillary whole blood specimen relies upon adequate, non-compromised capillary blood flow. If the capillary glucose result is not consistent with the patient's clinical signs and symptoms, glucose testing should be repeated with either an arterial or venous sample on the glucometer or sent to the main labortory for testing. Comment 08/24/2025 5:59 AM EDT [facility] Learning Specialist ID Morenita Lizama 025 5:59 AM EDT [facility] Device ID [id number] 08/24/2025 5:59 AM EDT [facility] Specimen Type POC Capillary 08/24/2025 5:59 AM EDT [facility] Blood Capillary blood specimen / Unknown 08/24/2025 5:57 AM EDT 08/24/2025 5:59 AM EDT Alvaro Adrian DMD, MD LAB POINT OF CA RE TEST DOCKED DEVICE UNSOLICITED RESULTS Final Result Performing Organization Address City/[facility] Co de Phone Number [facility] [address] [place] [address] * (ABNORMAL) CBC W/O Differential (08/24/2025 3:29 AM EDT) WBC Count 10.15 3.70 - 10.30 10*3/uL LAB HEMATOLOGY METHOD 08/24/2025 4:13 AM EDT [facility] RBC Count 2.95(L) 4.60 - 6.10 10*6/uL LAB HEMATOLOGY METHOD 08/24/2025 4:13 AM EDT [facility] HGB 9.1(L) 13.7 - 17.5 g/dL LAB HEMATOLOGY METHOD 08/24/2025 4:13 AM EDT [facility] HCT 27.7(L) 40.0 - 51.0 % LAB HEMATOLOGY METHOD 08/24/2025 4:13 AM EDT [facility] Platelet Count 381(H) 155 - 369 10*3/uL LAB HEMATOLOGY METHOD 08/24/2025 4:13 AM EDT [facility] MCV 94 79 - 98 fL LAB HEMATOLOGY METHOD 08/24/2025 4:13 AM EDT [facility] MCH 30.8 26.0 - 32.0 pg LAB HEMATOLOGY METHOD 08/24/2025 4:13 AM EDT [facility] MCHC 32.9 30.7 - 35.5 g/dL LAB HEMATOLOGY METHOD 08/24/2025 4:13 AM EDT [facility] RDW 12.4 11.5 - 14.5 % LAB HEMATOLOGY METHOD 08/24/2025 4:13 AM EDT [facility] MPV 9.4 8.8 - 12.5 fL LAB HEMATOLOGY METHOD 08/24/2025 4:13 AM EDT [facility] nRBC 0.0 <=0.0 per 100 WBCs LAB HEMATOLOGY METHOD 08/24/2025 4:13 AM EDT [facility] Blood Venous blood specimen / Unknown Venipuncture / Unknown 08/24/2025 3:29 AM EDT 08/24/2025 4:01 AM EDT us Alvaro Adrian DMD, MD LAB BLOOD ORDERABLES Fi nal Result [facility] [address] [place] [address] * (ABNORMAL) Basic Metabolic Panel, Plasma (08/24/2025 3:29 AM EDT) Glucose, Plasma 107(H) 74 - 99 mg/dL 08/24/2025 4:28 AM EDT [facility] BUN, Plasma 17 7 - 21 mg/dL 08/24/2025 4:28 AM EDT [facility] Creatinine, Plasma 0.59(L) 0.70 - 1.20 mg/dL 08/24/2025 4:28 AM EDT [facility] BUN/Creatinine Ratio 29 08/24/2025 4:28 AM EDT [facility] Sodium, Plasma 137 136 - 145 mmol/L 08/24/2025 4:28 AM EDT [facility] Potassium, Plasma 3.9 3.6 - 4.9 mmol/L 08/24/2025 4:28 AM EDT [facility] Chloride, Plasma 101 97 - 107 mmol/L 08/24/2025 4:28 AM EDT [facility] CO2, Plasma 27 22 - 29 mmol/L 08/24/2025 4:28 AM EDT [facility] Anion Gap 9 6 - 16 mmol/L 08/24/2025 4:28 AM EDT [facility] Total Calcium, Plasma 8.8(L) 8.9 - 10.2 mg/dL 08/24/2025 4:28 AM EDT [facility] eGFRcr 116.7 mL/min/1.7 3m*2 08/24/2025 4:28 AM EDT [facility] Comment:Reported eGFRcr in m L/min/1.73m2 is based the CKD-EPI 2020 equation that does not use a race coefficient. Blood Venous blood specimen / Unknown Venipuncture / Unknown 08/24/2025 3:29 AM EDT 08/24/2025 3:59 AM EDT us Alvaro Adrian DMD, MD LAB BLOOD ORDERABLES Fi nal Result [facility] [address] [place] [address] * Magnesium, Plasma (08/24/2025 3:29 AM EDT) Magnesium, Plasma 2.0 1.9 - 2.4 mg/dL 08/24/2025 4:28 AM EDT [facility] Blood Venous blood specimen / Unknown Venipuncture / Unknown 08/24/2025 3:29 AM EDT 08/24/2025 3:59 AM EDT us Alvaro Adrian DMD, MD LAB BLOOD ORDERABLES Fi nal Result Performing Organization Address City/[facility]/ZIP Co de Phone Number [facility] [address] [place] [address] * Phosphorus, Plasma (08/24/2025 3:29 AM EDT) [facility] Phosphorus, Plasma 3.7 2.5 - 4.5 mg/dL 08/24/2025 4:28 AM EDT [facility] Blood Venous blood specimen / Unknown Venipuncture / Unknown 08/24/2025 3:29 AM EDT 08/24/2025 3:59 AM EDT us Alvaro Adrian DMD, MD LAB BLOOD ORDERABLES Fi nal Result Performing Organization Address [facility] Co de Phone Number [facility] [address] [place] [address] * (ABNORMAL) POCT glucose meter (08/24/2025 12:46 AM EDT) [facility] POCT Glucose 126(H) 74 - 99 mg/dL 08/24/2025 12:48 AM EDT [facility] Comment:Accuracy of a glucos e result obtained from a capillary whole blood specimen relies upon adequate, non-compromised capillary blood flow. If the capillary glucose result is not consistent with the patient's clinical signs and symptoms, glucose testing should be repeated with either an arterial or venous sample on the glucometer or sent to the main labortory for testing. Comment 08/24/2025 12:48 AM EDT [facility] Learning Specialist ID Morenita Lizama 025 12:48 AM EDT [facility] Device ID [id number] 08/24/2025 12:48 AM EDT [facility] Specimen Type POC Capillary 08/24/2025 12:48 AM EDT [facility] Blood Capillary blood specimen / Unknown 08/24/2025 12:46 AM EDT 08/24/2025 12:48 AM EDT us Alvaro Adrian DMD, MD LAB POINT OF CA RE TEST DOCKED DEVICE UNSOLICITED RESULTS Final Result Performing Organization Address City/[facility]/ZIP Co de Phone Number [facility] [address] [place] [address] * POCT glucose meter (08/23/2025 6:45 PM EDT) [facility] POCT Glucose 83 74 - 99 mg/dL 08/23/2025 6:47 PM EDT [facility] Comment:Accuracy of a glucos e result obtained from a capillary whole blood specimen relies upon adequate, non-compromised capillary blood flow. If the capillary glucose result is not consistent with the patient's clinical signs and symptoms, glucose testing should be repeated with either an arterial or venous sample on the glucometer or sent to the main labortory for testing. Comment 08/23/2025 6:47 PM EDT [facility] Learning Specialist ID Selam Nicole Nancy 08/23/2025 6:47 PM EDT [facility] Device ID [id number] 08/23/2025 6:47 PM EDT [facility] Specimen Type POC Capillary 08/23/2025 6:47 PM EDT [facility] Blood Capillary blood specimen / Unknown 08/23/2025 6:45 PM EDT 08/23/2025 6:47 PM EDT Alvaro Adrian DMD, MD LAB POINT OF CA RE TEST DOCKED DEVICE UNSOLICITED RESULTS Final Result [facility] [address] [place] [address] * POCT glucose meter (08/23/2025 1:07 PM EDT) [facility] POCT Glucose 98 74 - 99 mg/dL 08/23/2025 1:10 PM EDT [facility] Comment:Accuracy of a glucos e result obtained from a capillary whole blood specimen relies upon adequate, non-compromised capillary blood flow. If the capillary glucose result is not consistent with the patient's clinical signs and symptoms, glucose testing should be repeated with either an arterial or venous sample on the glucometer or sent to the main labortory for testing. Comment 08/23/2025 1:10 PM EDT [facility] Learning Specialist ID Selam Nicole Nancy 08/23/2025 1:10 PM EDT [facility] Device ID [id number] 08/23/2025 1:10 PM EDT [facility] Specimen Type POC Capillary 08/23/2025 1:10 PM EDT [facility] Blood Capillary blood specimen / Unknown 08/23/2025 1:07 PM EDT 08/23/2025 1:10 PM EDT us Alvaro Adrian DMD, MD LAB POINT OF CA RE TEST DOCKED DEVICE UNSOLICITED RESULTS Final Result [facility] [address] [place] [id number] * (ABNORMAL) CBC W/O Differential (08/23/2025 3:26 AM EDT) WBC Count 10.09 3.70 - 10.30 10*3/uL LAB HEMATOLOGY METHOD 08/23/2025 3:45 AM EDT [facility] RBC Count 3.11(L) 4.60 - 6.10 10*6/uL LAB HEMATOLOGY METHOD 08/23/2025 3:45 AM EDT [facility] HGB 9.5(L) 13.7 - 17.5 g/dL LAB HEMATOLOGY METHOD 08/23/2025 3:45 AM EDT [facility] HCT 29.1(L) 40.0 - 51.0 % LAB HEMATOLOGY METHOD 08/23/2025 3:45 AM EDT [facility] Platelet Count 326 155 - 369 10*3/uL LAB HEMATOLOGY METHOD 08/23/2025 3:45 AM EDT [facility] MCV 94 79 - 98 fL LAB HEMATOLOGY METHOD 08/23/2025 3:45 AM EDT [facility] MCH 30.5 26.0 - 32.0 pg LAB HEMATOLOGY METHOD 08/23/2025 3:45 AM EDT [facility] MCHC 32.6 30.7 - 35.5 g/dL LAB HEMATOLOGY METHOD 08/23/2025 3:45 AM EDT [facility] RDW 12.6 11.5 - 14.5 % LAB HEMATOLOGY METHOD 08/23/2025 3:45 AM EDT [facility] MPV 9.5 8.8 - 12.5 fL LAB HEMATOLOGY METHOD 08/23/2025 3:45 AM EDT [facility] nRBC 0.0 <=0.0 per 100 WBCs LAB HEMATOLOGY METHOD 08/23/2025 3:45 AM EDT [facility] Blood Venous blood specimen / Unknown Venipuncture / Unknown 08/23/2025 3:26 AM EDT 08/23/2025 3:34 AM EDT us Alvaro Adrian DMD, MD LAB BLOOD ORDERABLES Fi nal Result [facility] [address] [place] [address] * (ABNORMAL) Basic Metabolic Panel, Plasma (08/23/2025 3:26 AM EDT) Glucose, Plasma 100(H) 74 - 99 mg/dL 08/23/2025 4:07 AM EDT [facility] BUN, Plasma 15 7 - 21 mg/dL 08/23/2025 4:07 AM EDT [facility] Creatinine, Plasma 0.58(L) 0.70 - 1.20 mg/dL 08/23/2025 4:07 AM EDT [facility] BUN/Creatinine Ratio 26 08/23/2025 4:07 AM EDT [facility] Sodium, Plasma 137 136 - 145 mmol/L 08/23/2025 4:07 AM EDT [facility] Potassium, Plasma 4.0 3.6 - 4.9 mmol/L 08/23/2025 4:07 AM EDT [facility] Chloride, Plasma 102 97 - 107 mmol/L 08/23/2025 4:07 AM EDT [facility] CO2, Plasma 25 22 - 29 mmol/L 08/23/2025 4:07 AM EDT [facility] Anion Gap 10 6 - 16 mmol/L 08/23/2025 4:07 AM EDT [facility] Total Calcium, Plasma 8.7(L) 8.9 - 10.2 mg/dL 08/23/2025 4:07 AM EDT [facility] eGFRcr 117.3 mL/min/1.7 3m*2 08/23/2025 4:07 AM EDT [facility] Comment:Reported eGFRcr in m L/min/1.73m2 is based the CKD-EPI 2020 equation that does not use a race coefficient. Blood Venous blood specimen / Unknown Venipuncture / Unknown 08/23/2025 3:26 AM EDT 08/23/2025 3:35 AM EDT us Alvaro Adrian DMD, MD LAB BLOOD [place] [address] * Magnesium, Plasma (08/23/2025 3:26 AM EDT) Magnesium, Plasma 2.0 1.9 - 2.4 mg/dL 08/23/2025 4:07 AM EDT [facility] Blood Venous blood specimen / Unknown Venipuncture / Unknown 08/23/2025 3:26 AM EDT 08/23/2025 3:35 AM EDT us Alvaro Adrian DMD, MD LAB BLOOD ORDERABLES Fi nal Result Performing Organization Address City/[facility] [place] [address] * Phosphorus, Plasma (08/23/2025 3:26 AM EDT) Phosphorus, Plasma 3.3 2.5 - 4.5 mg/dL 08/23/2025 4:07 AM EDT [facility] Blood Venous blood specimen / Unknown Venipuncture / Unknown 08/23/2025 3:26 AM EDT 08/23/2025 3:35 AM EDT us Alvaro Adrian DMD, MD LAB BLOOD ORDERABLES Fi nal Result Performing Organization Address City/[facility]/ZIP Co de Phone Number [facility] [address] [place] [address] * Phosphorus (08/22/2025 5:02 AM EDT) Phosphorus, Plasma 3.1 2.5 - 4.5 mg/dL 08/22/2025 6:09 AM EDT [facility] Blood Venous blood specimen / Unknown Venipuncture / Unknown 08/22/2025 5:02 AM EDT 08/22/2025 5:33 AM EDT Marvin Santana MD LAB BLOOD ORDERABLES Fin al Result Performing Organization Address City/[facility]/ZIP Co de Phone Number [facility] [address] [place] [address] * Magnesium (08/22/2025 5:02 AM EDT) Magnesium, Plasma 2.0 1.9 - 2.4 mg/dL 08/22/2025 6:09 AM EDT [facility] Blood Venous blood specimen / Unknown Venipuncture / Unknown 08/22/2025 5:02 AM EDT 08/22/2025 5:33 AM EDT Marvin Santana MD LAB BLOOD ORDERABLES Fin al Result Performing Organization Address City/[facility]/ZIP Co de Phone Number [facility] [address] [place] [address] * (ABNORMAL) Basic metabolic panel (08/22/2025 5:02 AM EDT) Glucose, Plasma 95 74 - 99 mg/dL 08/22/2025 6:09 AM EDT [facility] BUN, Plasma 15 7 - 21 mg/dL 08/22/2025 6:09 AM EDT [facility] Creatinine, Plasma 0.52(L) 0.70 - 1.20 mg/dL 08/22/2025 6:09 AM EDT [facility] BUN/Creatinine Ratio 29 08/22/2025 6:09 AM EDT [facility] Sodium, Plasma 139 136 - 145 mmol/L 08/22/2025 6:09 AM EDT [facility] Potassium, Plasma 3.8 3.6 - 4.9 mmol/L 08/22/2025 6:09 AM EDT [facility] Chloride, Plasma 102 97 - 107 mmol/L 08/22/2025 6:09 AM EDT [facility] CO2, Plasma 27 22 - 29 mmol/L 08/22/2025 6:09 AM EDT [facility] Anion Gap 10 6 - 16 mmol/L 08/22/2025 6:09 AM EDT [facility] Total Calcium, Plasma 8.8(L) 8.9 - 10.2 mg/dL 08/22/2025 6:09 AM EDT [facility] eGFRcr 121.3 mL/min/1.7 3m*2 08/22/2025 6:09 AM EDT [facility] Comment:Reported eGFRcr in m L/min/1.73m2 is based the CKD-EPI 2020 equation that does not use a race coefficient. Blood Venous blood specimen / Unknown Venipuncture / Unknown 08/22/2025 5:02 AM EDT 08/22/2025 5:33 AM EDT us Marvin Santana MD LAB BLOOD ORDERABLES Fin al Result [facility] [address] [place] [address] * (ABNORMAL) CBC W/O Differential (08/22/2025 5:02 AM EDT) WBC Count 11.20(H) 3.70 - 10.30 10*3/uL LAB HEMATOLOGY METHOD 08/22/2025 5:44 AM EDT [facility] RBC Count 3.19(L) 4.60 - 6.10 10*6/uL LAB HEMATOLOGY METHOD 08/22/2025 5:44 AM EDT [facility] HGB 9.8(L) 13.7 - 17.5 g/dL LAB HEMATOLOGY METHOD 08/22/2025 5:44 AM EDT [facility] HCT 29.6(L) 40.0 - 51.0 % LAB HEMATOLOGY METHOD 08/22/2025 5:44 AM EDT [facility] Platelet Count 271 155 - 369 10*3/uL LAB HEMATOLOGY METHOD 08/22/2025 5:44 AM EDT [facility] MCV 93 79 - 98 fL LAB HEMATOLOGY METHOD 08/22/2025 5:44 AM EDT [facility] MCH 30.7 26.0 - 32.0 pg LAB HEMATOLOGY METHOD 08/22/2025 5:44 AM EDT [facility] MCHC 33.1 30.7 - 35.5 g/dL LAB HEMATOLOGY METHOD 08/22/2025 5:44 AM EDT [facility] RDW 12.6 11.5 - 14.5 % LAB HEMATOLOGY METHOD 08/22/2025 5:44 AM EDT [facility] MPV 9.5 8.8 - 12.5 fL LAB HEMATOLOGY METHOD 08/22/2025 5:44 AM EDT [facility] nRBC 0.0 <=0.0 per 100 WBCs LAB HEMATOLOGY METHOD 08/22/2025 5:44 AM EDT [facility] Blood Venous blood specimen / Unknown Venipuncture / Unknown 08/22/2025 5:02 AM EDT 08/22/2025 5:32 AM EDT Marvin Santana MD LAB BLOOD ORDERABLES Fin al Result [facility] [address] [place] [address] * (ABNORMAL) CBC W/O Differential (08/20/2025 5:56 AM EDT) WBC Count 16.03(H) 3.70 - 10.30 10*3/uL LAB HEMATOLOGY METHOD 08/20/2025 6:17 AM EDT [facility] RBC Count 3.46(L) 4.60 - 6.10 10*6/uL LAB HEMATOLOGY METHOD 08/20/2025 6:17 AM EDT [facility] HGB 10.8(L) 13.7 - 17.5 g/dL LAB HEMATOLOGY METHOD 08/20/2025 6:17 AM EDT [facility] HCT 31.2(L) 40.0 - 51.0 % LAB HEMATOLOGY METHOD 08/20/2025 6:17 AM EDT [facility] Platelet Count 290 155 - 369 10*3/uL LAB HEMATOLOGY METHOD 08/20/2025 6:17 AM EDT [facility] MCV 90 79 - 98 fL LAB HEMATOLOGY METHOD 08/20/2025 6:17 AM EDT [facility] MCH 31.2 26.0 - 32.0 pg LAB HEMATOLOGY METHOD 08/20/2025 6:17 AM EDT [facility] MCHC 34.6 30.7 - 35.5 g/dL LAB HEMATOLOGY METHOD 08/20/2025 6:17 AM EDT [facility] RDW 12.6 11.5 - 14.5 % LAB HEMATOLOGY METHOD 08/20/2025 6:17 AM EDT [facility] MPV 9.7 8.8 - 12.5 fL LAB HEMATOLOGY METHOD 08/20/2025 6:17 AM EDT [facility] nRBC 0.0 <=0.0 per 100 WBCs LAB HEMATOLOGY METHOD 08/20/2025 6:17 AM EDT [facility] Blood Venous blood specimen / Unknown Venipuncture / Unknown 08/20/2025 5:56 AM EDT 08/20/2025 6:09 AM EDT us Marvin Santana MD LAB BLOOD ORDERABLES Fin al Result [facility] [address] [place] [address] * (ABNORMAL) Basic Metabolic Panel, Plasma (08/20/2025 5:56 AM EDT) Glucose, Plasma 140(H) 74 - 99 mg/dL 08/20/2025 6:39 AM EDT [facility] BUN, Plasma 16 7 - 21 mg/dL 08/20/2025 6:39 AM EDT [facility] Creatinine, Plasma 0.64(L) 0.70 - 1.20 mg/dL 08/20/2025 6:39 AM EDT [facility] BUN/Creatinine Ratio 25 08/20/2025 6:39 AM EDT [facility] Sodium, Plasma 136 136 - 145 mmol/L 08/20/2025 6:39 AM EDT [facility] Potassium, Plasma 5.2(H) 3.6 - 4.9 mmol/L 08/20/2025 6:39 AM EDT [facility] Comment:Hemolyzed, result ma y be falsely increased. Chloride, Plasma 101 97 - 107 mmol/L 08/20/2025 6:39 AM EDT [facility] CO2, Plasma 23 22 - 29 mmol/L 08/20/2025 6:39 AM EDT [facility] Anion Gap 12 6 - 16 mmol/L 08/20/2025 6:39 AM EDT [facility] Total Calcium, Plasma 8.6(L) 8.9 - 10.2 mg/dL 08/20/2025 6:39 AM EDT [facility] eGFRcr 113.9 mL/min/1.7 3m*2 08/20/2025 6:39 AM EDT [facility] Comment:Reported eGFRcr in m L/min/1.73m2 is based the CKD-EPI 2020 equation that does not use a race coefficient. Blood Venous blood specimen / Unknown Venipuncture / Unknown 08/20/2025 5:56 AM EDT 08/20/2025 6:08 AM EDT us Marvin Santana MD LAB BLOOD ORDERABLES Fin al Result [facility] [address] [place] [address] * (ABNORMAL) Magnesium, Plasma (08/20/2025 5:56 AM EDT) Magnesium, Plasma 1.8(L) 1.9 - 2.4 mg/dL 08/20/2025 6:39 AM EDT [facility] Blood Venous blood specimen / Unknown Venipuncture / Unknown 08/20/2025 5:56 AM EDT 08/20/2025 6:08 AM EDT Marvin Santana MD LAB BLOOD ORDERABLES Fin al Result [facility] [address] [place] [address] * Phosphorus, Plasma (08/20/2025 5:56 AM EDT) Phosphorus, Plasma 3.2 2.5 - 4.5 mg/dL 08/20/2025 6:39 AM EDT [facility] Blood Venous blood specimen / Unknown Venipuncture / Unknown 08/20/2025 5:56 AM EDT 08/20/2025 6:08 AM EDT us Marvin Santana MD LAB BLOOD ORDERABLES Fin al Result [facility] [address] [place] [address] * XR Abdomen 1 View (08/19/2025 8:37 PM EDT) Anatomical Region Laterality Modality Body Digital Radiogra phy Impressions 08/19/2025 8:53 PM EDT The tip of the feeding tube is within the proximal stomach CRITICAL RESULT: No. COMMUNICATION: Per this written report. Drafted by Patricio Trevino MD on 08/19/2025 8:53 PM Final report signed by Patricio Trevino MD on 08/19/2025 8:53 PM Narrative 08/19/2025 8:53 PM EDT CLINICAL INDICATION: DHT placement TECHNIQUE: Supine radiograph of the abdomen. COMPARISON: None. FINDINGS: Limited [id number] abdominal radiograph for the purpose of locating tube position. The tip of the feeding tube is within the proximal stomach. Procedure Note Patricio Trevino MD - 08/19/2025 CLINICAL INDICATION: DHT placement TECHNIQUE: Supine radiograph of the abdomen. COMPARISON: None. FINDINGS: Limited [id number] abdominal radiograph for the purpose of locatingtube position. The tip of the feeding tube is within the proximal stomach. IMPRESSION: The tip of the feeding tube is within the proximal stomach CRITICAL RESULT: No. COMMUNICATION: Per this written report. Drafted by Patricio Trevino MD on 08/19/2025 8:53 PM Final report signed by Patricio Trevino MD on 08/19/2025 8:53 PM us Alvaro Adrian DMD, MD IMG XR PROCEDURES Final Result * Multi Drug Resistance Test (08/19/2025 8:19 PM EDT) Culture No growth at day 1 08/21/2025 7:33 AM EDT [facility] Swab (Nares and Nini Rectal) Non-blood Collection / Unknown 08/19/2025 8:19 PM EDT 08/19/2025 8:30 PM EDT Narrative [facility] - 08/21/2025 7:33 AM EDT This test was developed and its performance characteristics determined by the [facility]. Although the media is FDA-approved, it is not FDA-approved for all specimen types submitted. The FDA has determined that such clearance or approval is not necessary. This test is used for surveillance purposes. It should not be regarded as investigational or for research. The [facility] is certified under the Clinical Laboratory Improvement Amendments of 1988 (CLIA-88) as qualified to perform high complexity clinical laboratory testing. Marvin Santana MD LAB MICROBIOLOGY - GENER AL ORDERABLES Final Result Performing Organization Address [facility] Co de Phone Number [facility] [address] [place] [address] * Cecelia auris Surveillance by PCR (08/19/2025 8:19 PM EDT) Cecelia auris PCR Result Not Detected Not Detected 08/21/2025 10:33 AM EDT [facility] Swab (Axilla and Groin) Non-blood Collection / Unknown 08/19/2025 8:19 PM EDT 08/19/2025 8:30 PM EDT Narrative [facility] - 08/21/2025 10:33 AM EDT This PCR assay was developed and its performance characteristics determined by [facility] as appropriate for clinical purposes. This assay has not been cleared or approved by the FDA, but is performed in a CLIA regulated laboratory that is qualified to perform high-complexity testing. Marvin Santana MD LAB MICROBIOLOGY - GENER AL ORDERABLES Final Result Performing Organization Address [facility] Co de Phone Number [facility] [address] [place] [address] * (ABNORMAL) Blood gas, arterial (08/19/2025 12:23 PM EDT) pH, Arterial 7.38 7.35 - 7.45 LAB HEMATOLOGY METHOD 08/19/2025 12:40 PM EDT [facility] pCO2, Arterial 42 32 - 45 mmHg LAB HEMATOLOGY METHOD 08/19/2025 12:40 PM EDT [facility] pO2, Arterial 107 83 - 108 mmHg LAB HEMATOLOGY METHOD 08/19/2025 12:40 PM EDT [facility] SO2, Measured, Arterial 99(H) 94 - 98 % LAB HEMATOLOGY METHOD 08/19/2025 12:40 PM EDT [facility] Base Excess, Arterial -0.8 -2.0 - 3.0 mmol/L LAB HEMATOLOGY METHOD 08/19/2025 12:40 PM EDT [facility] Bicarbonate, Calculated, Arterial 24 22 - 26 mmol/L LAB HEMATOLOGY METHOD 08/19/2025 12:40 PM EDT [facility] Hematocrit, Whole Blood 38.9(L) 40.0 - 51.0 % LAB HEMATOLOGY METHOD 08/19/2025 12:40 PM EDT [facility] Sodium, Whole Blood 138 136 - 145 mmol/L LAB HEMATOLOGY METHOD 08/19/2025 12:40 PM EDT [facility] Potassium, Whole Blood 3.7 3.6 - 4.9 mmol/L LAB HEMATOLOGY METHOD 08/19/2025 12:40 PM EDT [facility] Chloride, Whole Blood 105 97 - 107 mmol/L LAB HEMATOLOGY METHOD 08/19/2025 12:40 PM EDT [facility] Glucose, Whole Blood 146(H) 74 - 99 mg/dL LAB HEMATOLOGY METHOD 08/19/2025 12:40 PM EDT [facility] Ionized Calcium, Whole Blood 4.5(L) 4.6 - 5.1 mg/dL LAB HEMATOLOGY METHOD 08/19/2025 12:40 PM EDT [facility] Lactate, Arterial, Whole Blood 1.0 0.5 - 1.6 mmol/L LAB HEMATOLOGY METHOD 08/19/2025 12:40 PM EDT [facility] Blood Arterial blood specimen / Unknown 08/19/2025 12:23 PM EDT 08/19/2025 12:33 PM EDT 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] us Kenneth Benavides ACCOUNT INFORMATION CLERK LAB BLOOD ORDERABLES Final Result [facility] [address] [id number] * Surgical Pathology Exam (08/19/2025 10:32 AM EDT) Case Report Surgical Pathology Case: [id number] Authorizing Provider: Marvin Santana MD Collected: 08/19/2025 0917 Ordering Location: [facility] A OPERATING ROOM Received: 08/19/2025 7424 Pathologist: Timothy Chacon MD Intraop: Nabila Hendrickson MD Specimens: A) - Other (specify site), iNFERIOR lINGUAL FOR FROZEN B) - Other (specify site), SUPERIOR LINGUAL FOR FROZEN C) - Other (specify site), ANTERIOR LINGUAL FOR FROZEN D) - Other (specify site), POSTERIOR LINGUAL FOR FROZEN E) - Other (specify site), Buccal Mucosa, FROZEN F) - Other (specify site), ANTERIOR LABIAL MUCOSA , frozen G) - Other (specify site), posterior lingual mucosa, FROZEN H) - Other (specify site), Left false cord, fresh for permanent I) - Other (specify site), Left Anterior Tongue, Long Long Anterior, Short short superior. Fresh for permanent. J) - Other (specify site), Left Level One A, fresh for permanent K) - Other (specify site), Left Level One B, fresh for permanent L) - Other (specify site), Left Mandible, Short short lateral, Long short anterior, LOng long medial. fresh for permanent M) - Other (specify site), Left level neck 2, fresh for permanent N) - Other (specify site), Left level neck 3, fresh for permanent 08/28/2025 11:21 AM EDT [facility] Addendum This addendum is to document the provided clinical history. There is no change in the final diagnosis. Floor of mouth squamous cell carcinoma 08/28/2025 11:21 AM EDT [facility] Addendum electronically signed by Ellen Wilson MD on 08/28/2025 at 1121 EDT Final Diagnosis A. TONGUE, INFERIOR LINGUAL, FROZEN SECTION BIOPSY: - NEGATIVE FOR CARCINOMA B. TONGUE, SUPERIOR LINGUAL, FROZEN SECTION BIOPSY: - NEGATIVE FOR CARCINOMA C. TONGUE, ANTERIOR LINGUAL, FROZEN SECTION BIOPSY: - NEGATIVE FOR CARCINOMA D. TONGUE, POSTERIOR LINGUAL, FROZEN SECTION BIOPSY: - NEGATIVE FOR CARCINOMA E. BUCCAL MUCOSA, FROZEN SECTION BIOPSY: - NEGATIVE FOR CARCINOMA F. LABIAL MUCOSA, ANTERIOR , FROZEN SECTION BIOPSY: - NEGATIVE FOR CARCINOMA G. TONGUE, POSTERIOR LINGUAL MUCOSA, FROZEN SECTION BIOPSY: - NEGATIVE FOR CARCINOMA H. LARYNX, LEFT FALSE VOCAL CORD, BIOPSY: - NEGATIVE FOR CARCINOMA I. TONGUE, LEFT ANTERIOR, PARTIAL GLOSSECTOMY: - INVASIVE WELL-DIFFERENTIA LETICIA KERATINIZING SQUAMOUS CELL CARCINOMA, pT1 (see comment) - GREATEST DEPTH OF INVASION IS 4.2 MM - THE INVASIVE COMPONENT IS 5 MM - MARGINS ARE NEGATIVE FOR CARCINOMA - NEGATIVE FOR PERINEURAL INVASION - NEGATIVE FOR LYMPHOVASCULAR INVASION - SEE CHECKLIST FOR ADDITIONAL DETAILS J. LYMPH NODE, LEFT LEVEL ONE A, DISSECTION: - TWO LYMPH NODES, NEGATIVE FOR CARCINOMA (0/2) K. LYMPH NODE, LEFT LEVEL ONE B, DISSECTION: - METASTATIC CARCINOMA INVOLVING ONE OF SIX LYMPH NODES (1/6) - THE FOCUS IS 6 MM - NEGATIVE FOR EXTRANODAL EXTENSION - SALIVARY GLAND TISSUE, NEGATIVE FOR CARCINOMA L. 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 LYMPH NODE, LEFT LEVEL NECK 2, DISSECTION: - EIGHT LYMPH NODES, NEGATIVE FOR CARCINOMA (0/8) N. LYMPH NODE, LEFT LEVEL NECK 3, DISSECTION: - TWENTY LYMPH NODES, NEGATIVE FOR CARCINOMA (0/20) 08/28/2025 11:21 AM EDT [facility] at 1949 EDT Comment:This is an appended report. These results have been appended to a previously preliminary verified report. Comment There is one lymph node in this case with metastatic squamous cell carcinoma. Given the advanced stage involving the mandible, it is favored that this likely represents a metastasis from the the floor of mouth primary, rather than from the ventral tongue primary; however, this determination cannot be made on histologic evaluation alone. As a result, the node has been used in the staging of the tumor in part L. 08/28/2025 11:21 AM EDT [facility] Comment:This is an appended report. These results have been appended to a previously preliminary verified report. Synoptic Checklist ORAL CAVITY ORAL CAVITY - All Specimens 8th Edition - Protocol posted: 05/04/2023 SPECIMEN Procedure: Glossectomy: partial TUMOR Tumor Focality: Unifocal Tumor Site: Oral cavity Tumor Subsite: Ventral surface of tongue Tumor Laterality: Left Tumor Size: Greatest Dimension (Centimeters): 0.5 cm Histologic Type: : Squamous cell carcinoma, conventional (keratinizing) Histologic Grade: G1, well differentiated Tumor Depth of Invasion (DOI): 4.2 mm Lymphatic and / or Vascular Invasion: Not identified Perineural Invasion: Not identified Tumor Comment: difficult to assess WPOI accurately due to biopsy site changes MARGINS Specimen Margin Status for Invasive Tumor: All specimen margins negative for invasive tumor Distance from Invasive Tumor to Closest Specimen Margin: Greater than: 6 mm Closest Specimen Margin(s) to Invasive Tumor: inferior and medial REGIONAL LYMPH NODES Regional Lymph Node Status: : Tumor present in regional lymph node(s) Number of Lymph Nodes with Tumor: 1 Laterality of Lymph Node(s) with Tumor: Ipsilateral (including midline) Sixto Site(s) with Tumor: Level I Size of Largest Sixto Metastatic Deposit: 0.6 cm Extranodal Extension (CARO): Not identified Number of Lymph Nodes Examined: 36 Regional Lymph Node Comment: This lymph node is the same node utilized in the staging of the floor of mouth tumor. It cannot be determine if the metastasis is from the lingual primary or the floor of mouth primary, though floor of mouth primary is favored. pTNM CLASSIFICATION (AJCC 8th Edition) Reporting of pT, pN, and (when applicable) pM categories is based on information available to the pathologist at the time the report is issued. As per the AJCC (Chapter 1, 8th Ed.) it is the managing physician's responsibility to establish the final pathologic stage based upon all pertinent information, including but potentially not limited to this pathology report. pT Category: pT1 pN Category: pN not assigned (cannot be determined based on available pathological information) ORAL CAVITY ORAL CAVITY - All Specimens 8th Edition - Protocol posted: 05/04/2023 SPECIMEN Procedure: Mandibulectomy: left TUMOR Tumor Focality: Multifocal Multiple Primary Sites: Present: both arising from the floor of mouth Tumor Site: Oral cavity Tumor Subsite: Floor of mouth Tumor Laterality: Left Tumor Size: Greatest Dimension (Centimeters): 3.4 cm Histologic Type: : Squamous cell carcinoma, conventional (keratinizing) Histologic Grade: G2, moderately differentiated Tumor Depth of Invasion (DOI): 19 mm Lymphatic and / or Vascular Invasion: Present Perineural Invasion: Not identified Worst Pattern of Invasion (WPOI): WPOI 5 MARGINS Specimen Margin Status for Invasive Tumor: All specimen margins negative for invasive tumor Distance from Invasive Tumor to Closest Specimen Margin: 5 mm Closest Specimen Margin(s) to Invasive Tumor: medial mucosa and lateral mucosa Specimen Margin Status for Noninvasive Tumor (High-grade Dysplasia): High-grade dysplasia / in situ disease present at specimen margin Specimen Margin(s) Involved by Noninvasive Tumor: medial mucosa margin REGIONAL LYMPH NODES Regional Lymph Node Status: : Tumor present in regional lymph node(s) Number of Lymph Nodes with Tumor: 1 Laterality of Lymph Node(s) with Tumor: Ipsilateral (including midline) Sixto Site(s) with Tumor: Level I Size of Largest Sixto Metastatic Deposit: 0.6 cm Extranodal Extension (CARO): Not identified Number of Lymph Nodes Examined: 36 pTNM CLASSIFICATION (AJCC 8th Edition) Reporting of pT, pN, and (when applicable) pM categories is based on information available to the pathologist at the time the report is issued. As per the AJCC (Chapter 1, 8th Ed.) it is the managing physician's responsibility to establish the final pathologic stage based upon all pertinent information, including but potentially not limited to this pathology report. pT Category: pT4a T Suffix: (m) pN Category: pN1 08/28/2025 11:21 AM EDT [facility] Clinical Information No Dx Found. 08/28/2025 11:21 AM EDT [facility] Comment:This is an appended report. These results have been appended to a previously preliminary verified report. Intraoperative Consultation A. INFERIOR LINGUAL FOR FROZEN NO TUMOR IDENTIFIED. B. SUPERIOR LINGUAL FOR FROZEN NO TUMOR IDENTIFIED; MUCOSAL HYPERPLASIA AND INFLAMMATION. C. ANTERIOR LINGUAL FOR FROZEN NO TUMOR IDENTIFIED. D. POSTERIOR LINGUAL FOR FROZEN NO TUMOR IDENTIFIED. E. BUCCAL MUCOSA, FROZEN NO TUMOR IDENTIFIED. F. ANTERIOR LABIAL MUCOSA , FROZEN NO TUMOR IDENTIFIED. G. POSTERIOR LINGUAL MUCOSA, FROZEN NO TUMOR IDENTIFIED. NO 08/28/2025 11:21 AM EDT [facility] Comment:Corrected result: Pr eviously reported as [Previous value contains rich text formatting which cannot be displayed here] (see Result History) on 08/19/2025 at 1055 EDT. Gross Description A. INFERIOR LINGUAL FOR FROZEN Specimen received fresh for frozen section labeled i nferior lingual and consists of a 1.5 x 0.4 x 0.2 cm pink-robin soft tissue fragment. Remainder of specimen is submitted entirely in cassette A1 Marvel Herrera MD B. SUPERIOR LINGUAL FOR FROZEN Specimen received fresh for frozen section labeled s uperior lingual and consists of a 1.3 x 0.5 x 0.3 cm red-robin soft tissue fragment. Measures specimen is placed in formalin and submitted entirely in cassette B1 Marvel Herrera MD C. ANTERIOR LINGUAL FOR FROZEN Specimen is received fresh, for frozen section labeled a nterior lingual and consists of a 0.9 x 0.4 x 0.3 cm red-robin soft tissue fragment. Remainder of specimen is submitted entirely in cassette C1 Marvel Herrera MD D. POSTERIOR LINGUAL FOR FROZEN Specimen is received fresh for frozen section labeled p osterior lingual and consists of a 1.3 x 0.7 x 0.4 cm pink-robin soft tissue fragment. Remainder of the specimen is submitted entirely in formalin in cassette D1 Marvel Herrera MD E. BUCCAL MUCOSA, FROZEN Specimen is received fresh for frozen section labeled b uccal mucosa and consists of a 1.2 x 0.3 x 0.2 cm pink-robin soft tissue fragment. The remainder of the specimen is submitted entirely in formalin in cassette E1 Cold Time: 15m Marvel Herrera MD F. ANTERIOR LABIAL MUCOSA , FROZEN Specimen is received fresh for frozen section labeled a nterior labial mucosa and consists of a 1.0 x 0.5 x 0.2 cm pink-robin soft tissue fragment. The remainder of the specimen is placed in formalin submitted entirely in cassette F1 Marvel Herrera MD G. POSTERIOR LINGUAL MUCOSA, FROZEN Specimen is received fresh for frozen section labeled p osterior lingual mucosa and consists of a 1.1 x 0.6 x 0.3 cm pink-robin soft tissue fragment. The remaining specimen is placed in formalin is submitted entirely in cassette G1 Marvel Herrera MD H. LEFT FALSE CORD, FRESH FOR PERMANENT Specimen is received fresh, placed in formalin labeled left false cord and consists of a 0.4 x 0.4 x 0.3 fragment of robin-pink soft tissue. Specimen is submitted entirely in cassette H1 Cold Time: 4h 20m Marvel Herrera MD I. LEFT ANTERIOR TONGUE, LONG LONG ANTERIOR, SHORT SHORT SUPERIOR. FRESH FOR PERMANENT. Specimen is received fresh, placed in formalin labeled l eft anterior tongue, long long anterior, short short superior and consists of a 3.5 cm (anterior to posterior) by 1.5 cm (medial-lateral) by 2.1 cm (superior-inferi or) left partial glossectomy. The lateral surface is rough, papillary, robin-white. The remaining surfaces consists of robin-brown, ragged, firm soft tissue with cautery artifact. The lateral surface demonstrates a robin-white, papillary, irregularly-shap ed 2.4 cm (anterior-search director ior) by 1.9 (superior-inferi or) lesion that appears to abut the posterior and inferior margins. Gross photographs both pre ink and inked are provided. Ink code: Blue-anterior Red-superior Green-inferior Black-posterior [place]-medial Uninked (with lesion)-lateral Specimen is serially sectioned from anterior to posterior. Cut surface consists of firm, robin-white soft tissue. The lesion demonstrates a maximum invasion depth of 0.2 cm. Specimen is submitted entirely in cassettes I1 through I 7 from anterior to posterior in ascending number of cassette Cold Time: 3h 05m Marvel Herrera MD J. LEFT LEVEL ONE A, FRESH FOR PERMANENT Specimen is received fresh, placed in formalin labeled [facility] level 1A and consists of a 4.3 x 2.0 x 1.5 cm fragment of robin-yellow lobular tissue. Specimen is palpated to reveal 2 distinct lymph nodes, 0.7 and 0.4 cm in greatest dimension respectively and fibrofatty tissue with multiple possible minute lymph nodes. Specimen is entirely submitted as follows J1: 1 lymph node, trisected J2: 1 lymph node bisected J3-J5: Fibrofatty tissue with possible minute lymph nodes Cold Time: 1h 43m Marvel Herrera MD K. LEFT LEVEL ONE B, FRESH FOR PERMANENT Specimen is received fresh, placed in formalin labeled l eft level 1B and consists of a 4.9 x 2.5 x 2.7 cm fragment of robin-yellow lobular tissue. Specimen is palpated to reveal non distinct lymph nodes ranging from 0.4 to 4.1 cm in greatest dimension. Specimen is submitted entirely as follows: K1: 1 distinct lymph node, 3 possible lymph nodes, 1 uninked, 1 inked blue, 1 inked green, 1 inked black K2-K4: 1 lymph node, serially sectioned K5-K6: 1 lymph node serially sectioned K7: 2 lymph nodes, 1 uninked and bisected, 1 inked blue and trisected K8-K15: Putative lymphatic tissue, 1 fragment serially sectioned Cold Time: 1h 42m Marvel Herrera MD L. LEFT MANDIBLE, SHORT SHORT LATERAL, LONG SHORT ANTERIOR, LONG LONG MEDIAL. FRESH FOR PERMANENT Specimen received fresh, placed in formalin labeled l eft mandible, short-short lateral, long-short anterior, long-long medial and consists of left brandyn mandibulectomy measuring 10.0 cm (anterior-search director ior) x 4.6 cm (left-right) x 3.5 cm (superior-inferi or) with an attached ramus measuring 6.2 cm (superior-inferi or) x 0.6 cm (left-right) x 1.3 cm (anterior-search director ior). The specimen is oriented by a short-short stitch on the lateral soft tissue, a long-short stitch on the anterior soft tissue and a long-long stitch on the medial soft tissue. The attached medial soft tissue measures 3.4 (left-right) by 8.4 (anterior-search director ior) by 2.0 (superior-inferi or), and is robin-brown, friable and variegated. The lateral soft tissue demonstrates a similar robin-brown, variegated gross appearance and is wrapped around the mandible from anterior to the ramus with an average depth of approximately 0.8 cm. There are 6 teeth, 2 molars, both exhibiting a metallic filling, and the most anterior molar demonstrating a 0.2 cm cavity. There are 4 incisors in fair repair. Between the medial soft tissue and the gingiva there is a 3.4 (anterior-search director ior by 1.8 (superior-inferi or by 0.8 (left-right) robin-white, firm, papillary mass ( mass#1). The mass crosses the gingival border to its closest proximity with the lateral mucosa and soft tissue between 2 intact molars and 4 intact incisors. There is an additional robin-brown, firm, papillary possible mass, 0.6 x 0.6 cm, lying immediately behind the most lateral incisor (mass #2). The mucosa is otherwise robin-brown, smooth and unremarkable. Ink code: Anterior-blue Lateral-yellow Medial-orange Inferior-green posterior-black Tumor closest proximity to margins: Anterior mucosal: 1.5 cm (mass #1); 1.2 cm (mass #2) Anterior soft tissue: 2.0 cm (mass #1); 1.5 cm (mass #2) Lateral mucosal: 0.5 cm Lateral soft tissue: 0.8 cm Medial mucosal 0.8 cm (mass #1); 0.5 cm (mass #2) Medial soft tissue: 1.0 cm Posterior mucosal: 0.8 cm Posterior soft tissue: 1.4 cm Inferior soft tissue: 1.5 cm The specimen is serially sectioned from anterior to posterior. Cut surface reveals variegated robin-brown soft tissue attached to yellow-white bone. Mass 1. Demonstrates a deepest penetration to bone 1.9 cm (gross photographs provided) and mass #2 does not appear to invade into the periosteum (gross photographs by provided). There is a 0.6 x 0 point 4 x 0.4 cm interosseous lesion within the mandible the ramus. M no other interosseous lesions are grossly noted Delivery Assistant sections are submitted as follows: L1: Anterior mucosal and soft tissue margin L2: Lateral mucosal and soft tissue margin L3: Medial mucosal and soft tissue margin L4: Posterior mucosal and soft tissue margin L5: Inferior soft tissue margin L6: Mass 2 L7-L9: Mass 1, deepest bone invasion in L9 L10: Mandibular interosseous lesion L11: Softened bone adjacent to lesion L12: Delivery Assistant sample of lesion Cold Time: 0 Marvel Herrera MD M. LEFT LEVEL NECK 2, FRESH FOR PERMANENT Specimen is received fresh, placed in formalin labeled [facility] level neck 2 and consists of a 4.5 x 3.2 x 1.4 cm aggregate of robin-yellow lobular tissue received in 2 pieces. Upon palpation 6 distinct length nodes are found in tissue ranging from 0.4 to 2.0 cm in greatest dimension. Specimen is entirely submitted as follows M1: 2 lymph nodes, bisected, 1 inked blue M2-M3: 1 lymph node, serially sectioned M4: 1 lymph node, trisected M5: 1 lymph node serially sectioned M6: 1 lymph node serially sectioned M7-M9: Remainder of fibrofatty tissue with possible minute lymph nodes Cold Time: 0 Marvel Herrera MD N. LEFT LEVEL NECK 3, FRESH FOR PERMANENT Specimen is received fresh, placed in formalin labeled [facility] level neck 3 a nd consists of a 4.5 x 1.5 x 1.0 cm fragment robin-yellow lobular tissue. Upon palpation a single lymph node is found tissue measuring 1.6 cm in greatest dimension. And multiple minute lymph nodes possible identified within remaining tissue. Specimen is submitted entirely as follows N1: 1 lymph node trisected N2-N4: Fibroadipose tissue with possible minute lymph nodes Cold Time: 0 Marvel Herrera MD 08/28/2025 11:21 AM T [facility] Comment:This is an appended report. These results have been appended to a previously preliminary verified report. Note: A resident was involved in the service. I attest I examined the relevant preparations for the specimens and confirmed the diagnosis or interpretation. 08/28/2025 11:21 AM T [facility] Comment:This is an appended report. These results have been appended to a previously preliminary verified report. 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] Tissue specimen (specimen) Topography unknown / Unknown 08/19/2025 1:22 PM EDT 08/19/2025 1:32 PM EDT 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] Tissue specimen (specimen) Topography unknown / Unknown 08/19/2025 1:23 PM EDT 08/19/2025 1:32 PM EDT 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] Tissue specimen (specimen) Topography unknown / Unknown 08/19/2025 1:23 PM EDT 08/19/2025 1:32 PM EDT 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] Tissue specimen (specimen) Topography unknown / Unknown 08/19/2025 1:57 PM EDT 08/19/2025 2:41 PM EDT 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] Tissue specimen (specimen) Topography unknown / Unknown 08/19/2025 1:57 PM EDT 08/19/2025 2:41 PM EDT 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] Tissue specimen (specimen) Topography unknown / Unknown 08/19/2025 10:07 AM EDT 08/19/2025 10:21 AM EDT Tissue specimen (specimen) Topography unknown / Unknown 08/19/2025 10:08 AM EDT 08/19/2025 10:21 AM EDT Tissue specimen (specimen) Topography unknown / Unknown 08/19/2025 10:08 AM EDT 08/19/2025 10:21 AM EDT Tissue specimen (specimen) Topography unknown / Unknown 08/19/2025 10:08 AM EDT 08/19/2025 10:21 AM EDT Tissue specimen (specimen) Topography unknown / Unknown 08/19/2025 9:17 AM EDT 08/19/2025 1:37 PM EDT Tissue specimen (specimen) Topography unknown / Unknown 08/19/2025 1:19 PM EDT 08/19/2025 2:41 PM EDT Alvaro Adrian DMD, MD LAB PATHOLOGY ORDERABLE S Edited Result - Final [facility] [address] [place] [address] * Surgical Pathology Exam (08/19/2025 9:17 AM EDT) Case Report Surgical Pathology Case: [id number] Authorizing Provider: Marvin Santana MD Collected: 08/19/2025 0917 Ordering Location: [facility] A OPERATING ROOM Received: 08/19/2025 8607 Pathologist: Timothy Chacon MD Intraop: Nabila Hendrickson MD Specimens: A) - Other (specify site), iNFERIOR lINGUAL FOR FROZEN B) - Other (specify site), SUPERIOR LINGUAL FOR FROZEN C) - Other (specify site), ANTERIOR LINGUAL FOR FROZEN D) - Other (specify site), POSTERIOR LINGUAL FOR FROZEN E) - Other (specify site), Buccal Mucosa, FROZEN F) - Other (specify site), ANTERIOR LABIAL MUCOSA , frozen G) - Other (specify site), posterior lingual mucosa, FROZEN H) - Other (specify site), Left false cord, fresh for permanent I) - Other (specify site), Left Anterior Tongue, Long Long Anterior, Short short superior. Fresh for permanent. J) - Other (specify site), Left Level One A, fresh for permanent K) - Other (specify site), Left Level One B, fresh for permanent L) - Other (specify site), Left Mandible, Short short lateral, Long short anterior, LOng long medial. fresh for permanent M) - Other (specify site), Left level neck 2, fresh for permanent N) - Other (specify site), Left level neck 3, fresh for permanent 08/28/2025 11:21 AM EDT [facility] Addendum This addendum is to document the provided clinical history. There is no change in the final diagnosis. Floor of mouth squamous cell carcinoma 08/28/2025 11:21 AM EDT [facility] Addendum electronically signed by Ellen Wilson MD on 08/28/2025 at 1121 EDT Final Diagnosis A. TONGUE, INFERIOR LINGUAL, FROZEN SECTION BIOPSY: - NEGATIVE FOR CARCINOMA B. TONGUE, SUPERIOR LINGUAL, FROZEN SECTION BIOPSY: - NEGATIVE FOR CARCINOMA C. TONGUE, ANTERIOR LINGUAL, FROZEN SECTION BIOPSY: - NEGATIVE FOR CARCINOMA D. TONGUE, POSTERIOR LINGUAL, FROZEN SECTION BIOPSY: - NEGATIVE FOR CARCINOMA E. BUCCAL MUCOSA, FROZEN SECTION BIOPSY: - NEGATIVE FOR CARCINOMA F. LABIAL MUCOSA, ANTERIOR , FROZEN SECTION BIOPSY: - NEGATIVE FOR CARCINOMA G. TONGUE, POSTERIOR LINGUAL MUCOSA, FROZEN SECTION BIOPSY: - NEGATIVE FOR CARCINOMA H. LARYNX, LEFT FALSE VOCAL CORD, BIOPSY: - NEGATIVE FOR CARCINOMA I. TONGUE, LEFT ANTERIOR, PARTIAL GLOSSECTOMY: - INVASIVE WELL-DIFFERENTIA LETICIA KERATINIZING SQUAMOUS CELL CARCINOMA, pT1 (see comment) - GREATEST DEPTH OF INVASION IS 4.2 MM - THE INVASIVE COMPONENT IS 5 MM - MARGINS ARE NEGATIVE FOR CARCINOMA - NEGATIVE FOR PERINEURAL INVASION - NEGATIVE FOR LYMPHOVASCULAR INVASION - SEE CHECKLIST FOR ADDITIONAL DETAILS J. LYMPH NODE, LEFT LEVEL ONE A, DISSECTION: - TWO LYMPH NODES, NEGATIVE FOR CARCINOMA (0/2) K. LYMPH NODE, LEFT LEVEL ONE B, DISSECTION: - METASTATIC CARCINOMA INVOLVING ONE OF SIX LYMPH NODES (1/6) - THE FOCUS IS 6 MM - NEGATIVE FOR EXTRANODAL EXTENSION - SALIVARY GLAND TISSUE, NEGATIVE FOR CARCINOMA L. 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 LYMPH NODE, LEFT LEVEL NECK 2, DISSECTION: - EIGHT LYMPH NODES, NEGATIVE FOR CARCINOMA (0/8) N. LYMPH NODE, LEFT LEVEL NECK 3, DISSECTION: - TWENTY LYMPH NODES, NEGATIVE FOR CARCINOMA (0/20) 08/28/2025 11:21 AM EDT [facility] at 1949 EDT Comment:This is an appended report. These results have been appended to a previously preliminary verified report. Comment There is one lymph node in this case with metastatic squamous cell carcinoma. Given the advanced stage involving the mandible, it is favored that this likely represents a metastasis from the the floor of mouth primary, rather than from the ventral tongue primary; however, this determination cannot be made on histologic evaluation alone. As a result, the node has been used in the staging of the tumor in part L. 08/28/2025 11:21 AM T [facility] Comment:This is an appended report. These results have been appended to a previously preliminary verified report. Synoptic Checklist ORAL CAVITY ORAL CAVITY - All Specimens 8th Edition - Protocol posted: 05/04/2023 SPECIMEN Procedure: Glossectomy: partial TUMOR Tumor Focality: Unifocal Tumor Site: Oral cavity Tumor Subsite: Ventral surface of tongue Tumor Laterality: Left Tumor Size: Greatest Dimension (Centimeters): 0.5 cm Histologic Type: : Squamous cell carcinoma, conventional (keratinizing) Histologic Grade: G1, well differentiated Tumor Depth of Invasion (DOI): 4.2 mm Lymphatic and / or Vascular Invasion: Not identified Perineural Invasion: Not identified Tumor Comment: difficult to assess WPOI accurately due to biopsy site changes MARGINS Specimen Margin Status for Invasive Tumor: All specimen margins negative for invasive tumor Distance from Invasive Tumor to Closest Specimen Margin: Greater than: 6 mm Closest Specimen Margin(s) to Invasive Tumor: inferior and medial REGIONAL LYMPH NODES Regional Lymph Node Status: : Tumor present in regional lymph node(s) Number of Lymph Nodes with Tumor: 1 Laterality of Lymph Node(s) with Tumor: Ipsilateral (including midline) [place] Site(s) with Tumor: Level I Size of Largest [place] Metastatic Deposit: 0.6 cm Extranodal Extension (CARO): Not identified Number of Lymph Nodes Examined: 36 Regional Lymph Node Comment: This lymph node is the same node utilized in the staging of the floor of mouth tumor. It cannot be determine if the metastasis is from the lingual primary or the floor of mouth primary, though floor of mouth primary is favored. pTNM CLASSIFICATION (AJCC 8th Edition) Reporting of pT, pN, and (when applicable) pM categories is based on information available to the pathologist at the time the report is issued. As per the AJCC (Chapter 1, 8th Ed.) it is the managing physician's responsibility to establish the final pathologic stage based upon all pertinent information, including but potentially not limited to this pathology report. pT Category: pT1 pN Category: pN not assigned (cannot be determined based on available pathological information) ORAL CAVITY ORAL CAVITY - All Specimens 8th Edition - Protocol posted: 05/04/2023 SPECIMEN Procedure: Mandibulectomy: left TUMOR Tumor Focality: Multifocal Multiple Primary Sites: Present: both arising from the floor of mouth Tumor Site: Oral cavity Tumor Subsite: Floor of mouth Tumor Laterality: Left Tumor Size: Greatest Dimension (Centimeters): 3.4 cm Histologic Type: : Squamous cell carcinoma, conventional (keratinizing) Histologic Grade: G2, moderately differentiated Tumor Depth of Invasion (DOI): 19 mm Lymphatic and / or Vascular Invasion: Present Perineural Invasion: Not identified Worst Pattern of Invasion (WPOI): WPOI 5 MARGINS Specimen Margin Status for Invasive Tumor: All specimen margins negative for invasive tumor Distance from Invasive Tumor to Closest Specimen Margin: 5 mm Closest Specimen Margin(s) to Invasive Tumor: medial mucosa and lateral mucosa Specimen Margin Status for Noninvasive Tumor (High-grade Dysplasia): High-grade dysplasia / in situ disease present at specimen margin Specimen Margin(s) Involved by Noninvasive Tumor: medial mucosa margin REGIONAL LYMPH NODES Regional Lymph Node Status: : Tumor present in regional lymph node(s) Number of Lymph Nodes with Tumor: 1 Laterality of Lymph Node(s) with Tumor: Ipsilateral (including midline) [place] Site(s) with Tumor: Level I Size of Largest [place] Metastatic Deposit: 0.6 cm Extranodal Extension (CARO): Not identified Number of Lymph Nodes Examined: 36 pTNM CLASSIFICATION (AJCC 8th Edition) Reporting of pT, pN, and (when applicable) pM categories is based on information available to the pathologist at the time the report is issued. As per the AJCC (Chapter 1, 8th Ed.) it is the managing physician's responsibility to establish the final pathologic stage based upon all pertinent information, including but potentially not limited to this pathology report. pT Category: pT4a T Suffix: (m) pN Category: pN1 08/28/2025 11:21 AM EDT [facility] Clinical Information No Dx Found. 08/28/2025 11:21 AM EDT [facility] Comment:This is an appended report. These results have been appended to a previously preliminary verified report. Intraoperative Consultation A. INFERIOR LINGUAL FOR FROZEN NO TUMOR IDENTIFIED. B. SUPERIOR LINGUAL FOR FROZEN NO TUMOR IDENTIFIED; MUCOSAL HYPERPLASIA AND INFLAMMATION. C. ANTERIOR LINGUAL FOR FROZEN NO TUMOR IDENTIFIED. D. POSTERIOR LINGUAL FOR FROZEN NO TUMOR IDENTIFIED. E. BUCCAL MUCOSA, FROZEN NO TUMOR IDENTIFIED. F. ANTERIOR LABIAL MUCOSA , FROZEN NO TUMOR IDENTIFIED. G. POSTERIOR LINGUAL MUCOSA, FROZEN NO TUMOR IDENTIFIED. NO 08/28/2025 11:21 AM EDT [facility] Comment:Corrected result: Pr eviously reported as [Previous value contains rich text formatting which cannot be displayed here] (see Result History) on 08/19/2025 at 1055 EDT. Gross Description A. INFERIOR LINGUAL FOR FROZEN Specimen received fresh for frozen section labeled i nferior lingual and consists of a 1.5 x 0.4 x 0.2 cm pink-robin soft tissue fragment. Remainder of specimen is submitted entirely in cassette A1 Marvel Herrera MD B. SUPERIOR LINGUAL FOR FROZEN Specimen received fresh for frozen section labeled s uperior lingual and consists of a 1.3 x 0.5 x 0.3 cm red-robin soft tissue fragment. Measures specimen is placed in formalin and submitted entirely in cassette B1 Marvel Herrera MD C. ANTERIOR LINGUAL FOR FROZEN Specimen is received fresh, for frozen section labeled a nterior lingual and consists of a 0.9 x 0.4 x 0.3 cm red-robin soft tissue fragment. Remainder of specimen is submitted entirely in cassette C1 Marvel Herrera MD D. POSTERIOR LINGUAL FOR FROZEN Specimen is received fresh for frozen section labeled p osterior lingual and consists of a 1.3 x 0.7 x 0.4 cm pink-robin soft tissue fragment. Remainder of the specimen is submitted entirely in formalin in cassette D1 Marvel Herrera MD E. BUCCAL MUCOSA, FROZEN Specimen is received fresh for frozen section labeled b uccal mucosa and consists of a 1.2 x 0.3 x 0.2 cm pink-robin soft tissue fragment. The remainder of the specimen is submitted entirely in formalin in cassette E1 Cold Time: 15m Marvel Herrera MD F. ANTERIOR LABIAL MUCOSA , FROZEN Specimen is received fresh for frozen section labeled a nterior labial mucosa and consists of a 1.0 x 0.5 x 0.2 cm pink-robin soft tissue fragment. The remainder of the specimen is placed in formalin submitted entirely in cassette F1 Marvel Herrera MD G. POSTERIOR LINGUAL MUCOSA, FROZEN Specimen is received fresh for frozen section labeled p osterior lingual mucosa and consists of a 1.1 x 0.6 x 0.3 cm pink-robin soft tissue fragment. The remaining specimen is placed in formalin is submitted entirely in cassette G1 Marvel Herrera MD H. LEFT FALSE CORD, FRESH FOR PERMANENT Specimen is received fresh, placed in formalin labeled left false cord and consists of a 0.4 x 0.4 x 0.3 fragment of robin-pink soft tissue. Specimen is submitted entirely in cassette H1 Cold Time: 4h 20m Marvel Herrera MD I. LEFT ANTERIOR TONGUE, LONG LONG ANTERIOR, SHORT SHORT SUPERIOR. FRESH FOR PERMANENT. Specimen is received fresh, placed in formalin labeled l eft anterior tongue, long long anterior, short short superior and consists of a 3.5 cm (anterior to posterior) by 1.5 cm (medial-lateral) by 2.1 cm (superior-inferi or) left partial glossectomy. The lateral surface is rough, papillary, robin-white. The remaining surfaces consists of robin-brown, ragged, firm soft tissue with cautery artifact. The lateral surface demonstrates a robin-white, papillary, irregularly-shap ed 2.4 cm (anterior-search director ior) by 1.9 (superior-inferi or) lesion that appears to abut the posterior and inferior margins. Gross photographs both pre ink and inked are provided. Ink code: Blue-anterior Red-superior Green-inferior Black-posterior [place]-medial Uninked (with lesion)-lateral Specimen is serially sectioned from anterior to posterior. Cut surface consists of firm, robin-white soft tissue. The lesion demonstrates a maximum invasion depth of 0.2 cm. Specimen is submitted entirely in cassettes I1 through I 7 from anterior to posterior in ascending number of cassette Cold Time: 3h 05m Marvel Herrera MD J. LEFT LEVEL ONE A, FRESH FOR PERMANENT Specimen is received fresh, placed in formalin labeled eft level 1A and consists of a 4.3 x 2.0 x 1.5 cm fragment of robin-yellow lobular tissue. Specimen is palpated to reveal 2 distinct lymph nodes, 0.7 and 0.4 cm in greatest dimension respectively and fibrofatty tissue with multiple possible minute lymph nodes. Specimen is entirely submitted as follows J1: 1 lymph node, trisected J2: 1 lymph node bisected J3-J5: Fibrofatty tissue with possible minute lymph nodes Cold Time: 1h 43m Marvel Herrera MD K. LEFT LEVEL ONE B, FRESH FOR PERMANENT Specimen is received fresh, placed in formalin labeled l eft level 1B and consists of a 4.9 x 2.5 x 2.7 cm fragment of robin-yellow lobular tissue. Specimen is palpated to reveal non distinct lymph nodes ranging from 0.4 to 4.1 cm in greatest dimension. Specimen is submitted entirely as follows: K1: 1 distinct lymph node, 3 possible lymph nodes, 1 uninked, 1 inked blue, 1 inked green, 1 inked black K2-K4: 1 lymph node, serially sectioned K5-K6: 1 lymph node serially sectioned K7: 2 lymph nodes, 1 uninked and bisected, 1 inked blue and trisected K8-K15: Putative lymphatic tissue, 1 fragment serially sectioned Cold Time: 1h 42m Marvel Herrera MD L. LEFT MANDIBLE, SHORT SHORT LATERAL, LONG SHORT ANTERIOR, LONG LONG MEDIAL. FRESH FOR PERMANENT Specimen received fresh, placed in formalin labeled l eft mandible, short-short lateral, long-short anterior, long-long medial and consists of left brandyn mandibulectomy measuring 10.0 cm (anterior-search director ior) x 4.6 cm (left-right) x 3.5 cm (superior-inferi or) with an attached ramus measuring 6.2 cm (superior-inferi or) x 0.6 cm (left-right) x 1.3 cm (anterior-search director ior). The specimen is oriented by a short-short stitch on the lateral soft tissue, a long-short stitch on the anterior soft tissue and a long-long stitch on the medial soft tissue. The attached medial soft tissue measures 3.4 (left-right) by 8.4 (anterior-search director ior) by 2.0 (superior-inferi or), and is robin-brown, friable and variegated. The lateral soft tissue demonstrates a similar robin-brown, variegated gross appearance and is wrapped around the mandible from anterior to the ramus with an average depth of approximately 0.8 cm. There are 6 teeth, 2 molars, both exhibiting a metallic filling, and the most anterior molar demonstrating a 0.2 cm cavity. There are 4 incisors in fair repair. Between the medial soft tissue and the gingiva there is a 3.4 (anterior-search director ior by 1.8 (superior-inferi or by 0.8 (left-right) robin-white, firm, papillary mass ( mass#1). The mass crosses the gingival border to its closest proximity with the lateral mucosa and soft tissue between 2 intact molars and 4 intact incisors. There is an additional robin-brown, firm, papillary possible mass, 0.6 x 0.6 cm, lying immediately behind the most lateral incisor (mass #2). The mucosa is otherwise robin-brown, smooth and unremarkable. Ink code: Anterior-blue Lateral-yellow Medial-orange Inferior-green posterior-black Tumor closest proximity to margins: Anterior mucosal: 1.5 cm (mass #1); 1.2 cm (mass #2) Anterior soft tissue: 2.0 cm (mass #1); 1.5 cm (mass #2) Lateral mucosal: 0.5 cm Lateral soft tissue: 0.8 cm Medial mucosal 0.8 cm (mass #1); 0.5 cm (mass #2) Medial soft tissue: 1.0 cm Posterior mucosal: 0.8 cm Posterior soft tissue: 1.4 cm Inferior soft tissue: 1.5 cm The specimen is serially sectioned from anterior to posterior. Cut surface reveals variegated robin-brown soft tissue attached to yellow-white bone. Mass 1. Demonstrates a deepest penetration to bone 1.9 cm (gross photographs provided) and mass #2 does not appear to invade into the periosteum (gross photographs by provided). There is a 0.6 x 0 point 4 x 0.4 cm interosseous lesion within the mandible the ramus. M no other interosseous lesions are grossly noted Delivery Assistant sections are submitted as follows: L1: Anterior mucosal and soft tissue margin L2: Lateral mucosal and soft tissue margin L3: Medial mucosal and soft tissue margin L4: Posterior mucosal and soft tissue margin L5: Inferior soft tissue margin L6: Mass 2 L7-L9: Mass 1, deepest bone invasion in L9 L10: Mandibular interosseous lesion L11: Softened bone adjacent to lesion L12: Delivery Assistant sample of lesion Cold Time: 0 Marvel Herrera MD M. LEFT LEVEL NECK 2, FRESH FOR PERMANENT Specimen is received fresh, placed in formalin labeled l eft level neck 2 and consists of a 4.5 x 3.2 x 1.4 cm aggregate of robin-yellow lobular tissue received in 2 pieces. Upon palpation 6 distinct length nodes are found in tissue ranging from 0.4 to 2.0 cm in greatest dimension. Specimen is entirely submitted as follows M1: 2 lymph nodes, bisected, 1 inked blue M2-M3: 1 lymph node, serially sectioned M4: 1 lymph node, trisected M5: 1 lymph node serially sectioned M6: 1 lymph node serially sectioned M7-M9: Remainder of fibrofatty tissue with possible minute lymph nodes Cold Time: 0 Marvel Herrera MD N. LEFT LEVEL NECK 3, FRESH FOR PERMANENT Specimen is received fresh, placed in formalin labeled l eft level neck 3 a nd consists of a 4.5 x 1.5 x 1.0 cm fragment robin-yellow lobular tissue. Upon palpation a single lymph node is found tissue measuring 1.6 cm in greatest dimension. And multiple minute lymph nodes possible identified within remaining tissue. Specimen is submitted entirely as follows N1: 1 lymph node trisected N2-N4: Fibroadipose tissue with possible minute lymph nodes Cold Time: 0 Marvel Herrera MD 08/28/2025 11:21 AM EDT [facility] Comment:This is an appended report. These results have been appended to a previously preliminary verified report. Note: A resident was involved in the service. I attest I examined the relevant preparations for the specimens and confirmed the diagnosis or interpretation. 08/28/2025 11:21 AM EDT [facility] Comment:This is an appended report. These results have been appended to a previously preliminary verified report. 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] Tissue specimen (specimen) Topography unknown / Unknown 08/19/2025 10:08 AM EDT 08/19/2025 10:21 AM EDT 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] Tissue specimen (specimen) Topography unknown / Unknown 08/19/2025 10:08 AM EDT 08/19/2025 10:21 AM EDT 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] Tissue specimen (specimen) Topography unknown / Unknown 08/19/2025 1:19 PM EDT 08/19/2025 2:41 PM EDT 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] Tissue specimen (specimen) Topography unknown / Unknown 08/19/2025 1:22 PM EDT 08/19/2025 1:32 PM EDT Tissue specimen (specimen) Topography unknown / Unknown 08/19/2025 1:23 PM EDT 08/19/2025 1:32 PM EDT Tissue specimen (specimen) Topography unknown / Unknown 08/19/2025 1:23 PM EDT 08/19/2025 1:32 PM EDT Tissue specimen (specimen) Topography unknown / Unknown 08/19/2025 10:32 AM EDT 08/19/2025 1:37 PM EDT Tissue specimen (specimen) Topography unknown / Unknown 08/19/2025 11:54 AM EDT 08/19/2025 1:37 PM EDT Tissue specimen (specimen) Topography unknown / Unknown 08/19/2025 11:55 AM EDT 08/19/2025 1:37 PM EDT Tissue specimen (specimen) Topography unknown / Unknown 08/19/2025 1:57 PM EDT 08/19/2025 2:41 PM EDT Tissue specimen (specimen) Topography unknown / Unknown 08/19/2025 1:57 PM EDT 08/19/2025 2:41 PM EDT us Marvin Snatana MD LAB PATHOLOGY ORDERABLES Edited Result - Final [facility] [address] [place] [address] * (ABNORMAL) Blood gas, arterial (08/19/2025 9:07 AM EDT) pH, Arterial 7.38 7.35 - 7.45 LAB HEMATOLOGY METHOD 08/19/2025 9:16 AM EDT [facility] pCO2, Arterial 44 32 - 45 mmHg LAB HEMATOLOGY METHOD 08/19/2025 9:16 AM EDT [facility] pO2, Arterial 195(H) 83 - 108 mmHg LAB HEMATOLOGY METHOD 08/19/2025 9:16 AM EDT [facility] SO2, Measured, Arterial 100(H) 94 - 98 % LAB HEMATOLOGY METHOD 08/19/2025 9:16 AM EDT [facility] Base Excess, Arterial 0.7 -2.0 - 3.0 mmol/L LAB HEMATOLOGY METHOD 08/19/2025 9:16 AM EDT [facility] Bicarbonate, Calculated, Arterial 26 22 - 26 mmol/L LAB HEMATOLOGY METHOD 08/19/2025 9:16 AM EDT [facility] Hematocrit, Whole Blood 36.2(L) 40.0 - 51.0 % LAB HEMATOLOGY METHOD 08/19/2025 9:16 AM EDT [facility] Sodium, Whole Blood 141 136 - 145 mmol/L LAB HEMATOLOGY METHOD 08/19/2025 9:16 AM EDT [facility] Potassium, Whole Blood 3.7 3.6 - 4.9 mmol/L LAB HEMATOLOGY METHOD 08/19/2025 9:16 AM EDT [facility] Chloride, Whole Blood 107 97 - 107 mmol/L LAB HEMATOLOGY METHOD 08/19/2025 9:16 AM EDT [facility] Glucose, Whole Blood 99 74 - 99 mg/dL LAB HEMATOLOGY METHOD 08/19/2025 9:16 AM EDT [facility] Ionized Calcium, Whole Blood 4.7 4.6 - 5.1 mg/dL LAB HEMATOLOGY METHOD 08/19/2025 9:16 AM EDT [facility] Lactate, Arterial, Whole Blood 1.1 0.5 - 1.6 mmol/L LAB HEMATOLOGY METHOD 08/19/2025 9:16 AM EDT [facility] Blood Arterial blood specimen / Unknown Arterial Puncture / Unknown 08/19/2025 9:07 AM EDT 08/19/2025 9:14 AM EDT us Kenneth Benavides CRNA LAB BLOOD ORDERABLES Final Result Performing Organization Address City/[facility]/ZIP Co de Phone Number [facility] [address] [place] [address] * Type and Screen (08/19/2025 7:05 AM EDT) ABO/Rh A Negative 08/19/2025 7:30 AM EDT BLOOD BANK Antibody Screen Negative 08/19/2025 7:30 AM EDT BLOOD BANK Specimen Expiration 08/22/2025 23:59 08/19/2025 7:30 AM EDT BLOOD BANK Blood Venous blood specimen / Unknown Venipuncture / Unknown 08/19/2025 7:05 AM EDT 08/19/2025 7:30 AM EDT us Alvaro Adrian DMD, MD LAB BLOOD BANK TEST ORD ERABLES Final Result Performing Organization Address City/[facility]/ZIP Co de Phone Number BLOOD BANK [address] [place] [address], documented in this encounter Visit Diagnoses Diagnosis 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 Malignant neoplasm of floor of mouth, part unspecified Floor of mouth squamous cell carcinoma Malignant neoplasm of floor of mouth, part unspecified Squamous cell carcinoma of mandible Wound of right lower extremity, initial encounter Hypertension, unspecified type Squamous cell carcinoma of mandible documented in this encounter Admitting Diagnoses Diagnosis Floor of mouth squamous cell carcinoma Malignant neoplasm of floor of mouth, part unspecified Squamous cell carcinoma of mandible documented in this encounter Administered Medications Inactive Administered Medications - up to 3 most recent administrations Medication Order MAR Action Action Date Dose Rate Site acetaminophen (Tylenol) tablet 1,000 mg 1,000 mg, Nasogastric, Every 6 hours scheduled, First dose (after last modification) on Tue08/20/25 at 1000, Until Discontinued, Routine, Recovery(Phase II-Outpatient)/On Unit(Inpatient) Given 08/30/2025 9:49 AM EDT 1,000 mg Given 08/30/2025 5:15 AM EDT 1,000 mg Given 08/29/2025 9:55 PM EDT 1,000 mg acetaminophen (Tylenol) tablet 650 mg 650 mg, Nasogastric, Every 6 hours scheduled, First dose (after last modification) on Tue08/20/25 at 0400, Until Discontinued, Routine, Recovery(Phase II-Outpatient)/On Unit(Inpatient) Given 08/20/2025 4:10 AM EDT 650 mg acetaminophen (Tylenol) tablet 650 mg 650 mg, Nasogastric, Once, 1 dose, On Tue08/19/25 at 2215, Routine Given 08/19/2025 9:29 PM EDT 650 mg ampicillin-sulbactam (Unasyn) 3 g in sodium chloride 0.9% 100 mL IVPB (vial adapter required) 3 g, Intravenous, Every 6 hours, 15 doses, First dose on Tue08/20/25 at 0915, Last dose on Tue08/23/25 at 2115, Routine New Bag 08/23/2025 8:28 PM EDT 3 g 220 mL/hr New Bag 08/23/2025 3:20 PM EDT 3 g 220 mL/hr New Bag 08/23/2025 9:08 AM EDT 3 g 220 mL/hr aspirin chewable tablet 324 mg 324 mg, Nasogastric, Daily, First dose (after last modification) on Tue08/20/25 at 0900, Until Discontinued, Routine, Recovery(Phase II-Outpatient)/On Unit(Inpatient) Given 08/30/2025 8:20 AM EDT 324 mg Given 08/29/2025 9:19 AM EDT 324 mg Given 08/28/2025 9:02 AM EDT 324 mg atorvastatin (Lipitor) tablet 20 mg 20 mg, Nasogastric, Daily, First dose on Tue08/21/25 at 1315, Until Discontinued Given 08/30/2025 8:20 AM EDT 20 mg Given 08/29/2025 9:19 AM EDT 20 mg Given 08/28/2025 8:58 AM EDT 20 mg bacitracin (425g jar) ointment 1 Jar 1 Jar, Topical, Daily, First dose on Tue08/19/25 at 1900, Until Discontinued, Routine Given 08/29/2025 9:24 AM EDT 1 Jar Given 08/28/2025 9:00 AM EDT 1 Jar Given 08/27/2025 8:39 AM EDT 1 Application bisacodyl (Dulcolax) suppository 10 mg 10 mg, Rectal, Once as needed, 1 dose, Starting on Tue08/27/25 at 0820, Until Tue08/30/25 at 1753, Routine, constipation clindamycin (Cleocin) IV solution 900 mg 900 mg, Intravenous, Once, 1 dose, On Tue08/28/25 at 1815, Routine, Anesthesia Intraprocedure New Bag 08/28/2025 6:33 PM EDT 900 mg 50 mL /hr esomeprazole (NexIUM) packet for suspension 40 mg 40 mg, Nasogastric, Daily, First dose on Jackie 08/22/25 at 0900, Until Discontinued Given 08/30/2025 8:20 AM EDT 40 mg Given 08/29/2025 9:19 AM EDT 40 mg Given 08/28/2025 8:58 AM EDT 40 mg famotidine (Pepcid) tablet 20 mg 20 mg, Nasogastric, 2 times daily, First dose on Tue08/19/25 at 2100, Until Discontinued, Routine, Recovery(Phase II-Outpatient)/On Unit(Inpatient) Given 08/27/2025 8:38 AM EDT 20 mg Given 08/26/2025 9:11 PM EDT 20 mg Given 08/26/2025 9:30 AM EDT 20 mg fentaNYL (Sublimaze) injection 25 mcg 25 mcg, Intravenous, Every 5 min PRN, 5 doses, Starting on Tue08/28/25 at 1741, Until Tue08/28/25 at 1923, Routine, Recovery (Phase I only), DVPRS >/= 5, CPOT >/= 3, FLACC >/= 4, PAINAD >/= 4 Given 08/28/2025 5:55 PM EDT 25 mcg Given 08/28/2025 5:47 PM EDT 25 mcg fentaNYL (Sublimaze) injection 50 mcg 50 mcg, Intravenous, Every 5 min PRN, 2 doses, Starting on Tue08/19/25 at 1638, Until Tue08/19/25 at 1959, Routine, Recovery (Phase I only), severe pain, pain score of 5-8 out of 10 Given 08/19/2025 6:31 PM EDT 50 mcg gabapentin (Neurontin) capsule 100 mg 100 mg, Nasogastric, 3 times daily, First dose (after last modification) on Tue08/19/25 at 2100, Until Discontinued, Routine, Recovery(Phase II-Outpatient)/On Unit(Inpatient) Given 08/21/2025 8:38 PM EDT 100 mg Given 08/21/2025 3:28 PM EDT 100 mg Given 08/21/2025 9:20 AM EDT 100 mg gabapentin (Neurontin) capsule 300 mg 300 mg, Nasogastric, 3 times daily, First dose (after last modification) on Jackie 08/22/25 at 0900, Until Discontinued, Routine, Recovery(Phase II-Outpatient)/On Unit(Inpatient) Given 08/30/2025 8:20 AM EDT 300 mg Given 08/29/2025 8:00 PM EDT 300 mg Given 08/29/2025 4:16 PM EDT 300 mg heparin (porcine) injection 5,000 Units 5,000 Units, Subcutaneous, Every 8 hours scheduled, First dose on Tue08/19/25 at 0700, Until Discontinued, Routine, Holding - Preprocedure Given 08/19/2025 7:05 AM EDT 5,000 Units Right Upper Arm (Back) heparin (porcine) injection 5,000 Units 5,000 Units, Subcutaneous, Every 8 hours scheduled, First dose on Tue08/20/25 at 1100, Until Discontinued, Routine Given 08/30/2025 1:26 PM EDT 5,000 Units Left Lower Abdomen Given 08/30/2025 5:15 AM EDT 5,000 Units L eft Upper Arm (Back) Given 08/29/2025 9:55 PM EDT 5,000 Units L eft Lower Abdomen HYDROmorphone (Dilaudid) injection 0.25 mg 0.25 mg, Intravenous, Every 1 hour PRN, 2 doses, Starting on 08/24/25 at 0437, Until 08/25/25 at 0809, Routine, severe pain Given 08/25/2025 8:09 AM EDT 0.25 mg Given 08/24/2025 4:46 AM EDT 0.25 mg HYDROmorphone (Dilaudid) injection 0.5 mg 0.5 mg, Intravenous, Every 10 min PRN, 4 doses, Starting on 08/19/25 at 1638, Until 08/19/25 at 1959, Routine, Recovery (Phase I only), severe pain, pain score of 9-10 out of 10 Given 08/19/2025 6:55 PM EDT 0.5 mg HYDROmorphone (Dilaudid) injection 0.5 mg 0.5 mg, Intravenous, Once, 1 dose, On Tue08/21/25 at 1415, Routine Given 08/21/2025 3:27 PM EDT 0.5 mg lactobacillus acidophilus (Floranex) tablet 1 tablet 1 tablet, Nasogastric, 2 times daily, First dose on Tue08/27/25 at 0900, Until Discontinued, Routine Given 08/30/2025 8:20 AM EDT 1 tablet Given 08/29/2025 8:00 PM EDT 1 tablet Given 08/29/2025 9:19 AM EDT 1 tablet levothyroxine (Synthroid, Levoxyl) tablet 50 mcg 50 mcg, Nasogastric, Every morning, First dose (after last modification) on Tue08/20/25 at 0600, Until Discontinued, Routine, Recovery(Phase II-Outpatient)/On Unit(Inpatient) Given 08/30/2025 5:15 AM EDT 50 mcg Given 08/29/2025 5:05 AM EDT 50 mcg Given 08/28/2025 4:52 AM EDT 50 mcg lidocaine-EPINEPHrine (Xylocaine W/EPI) 1 %-1:670373 injection 10 mL 10 mL, Infiltration, Once, 1 dose, On Jackie 08/29/25 at 0645, Routine Given 08/29/2025 11:26 AM EDT 10 mL magnesium hydroxide (Milk of Magnesia) 400 MG/5ML suspension 30 mL 30 mL, Nasogastric, Once, 1 dose, On Tue08/24/25 at 2000, Routine Given 08/24/2025 8:26 PM EDT 30 mL magnesium hydroxide (Milk of Magnesia) 400 MG/5ML suspension 30 mL 30 mL, Oral, Daily PRN, Starting on Tue08/25/25 at 1438, Until Tue08/30/25 at 1753, Routine, constipation Given 08/25/2025 3:52 PM EDT 30 mL magnesium sulfate IVPB 2 g 2 g, Intravenous, Once, 1 dose, On Tue08/20/25 at 1030, Routine New Bag 08/20/2025 9:53 AM EDT 2 g 25 mL/hr melatonin tablet 6 mg 6 mg, Nasogastric, Nightly, First dose on Tue08/24/25 at 2100, Until Discontinued, Routine Given 08/29/2025 8:00 PM EDT 6 mg Given 08/28/2025 8:48 PM EDT 6 mg Given 08/27/2025 9:22 PM EDT 6 mg metoprolol tartrate (Lopressor) split tablet 12.5 mg 12.5 mg, Nasogastric, 2 times daily, First dose on Tue08/20/25 at 1415, Until Discontinued, Routine Given 08/30/2025 8:20 AM EDT 12.5 mg Given 08/29/2025 8:00 PM EDT 12.5 mg Given 08/29/2025 9:19 AM EDT 12.5 mg mupirocin (Bactroban) 2 % ointment 1 Application Each Nostril, 2 times daily, 10 doses, First dose on 08/19/25 at 2130, Last dose on Tue08/24/25 at 0900, Routine Given 08/24/2025 8:33 AM EDT 1 Application Given 08/23/2025 8:26 PM EDT 1 Application Given 08/23/2025 8:05 AM EDT 1 Application ondansetron (Zofran) 4 MG/5ML solution 4 mg 4 mg, Nasogastric, Every 6 hours PRN, Starting on Tue08/25/25 at 0637, Until Tue08/30/25 at 1753, Routine, Recovery(Phase II-Outpatient)/On Unit(Inpatient), nausea, vomiting ondansetron (Zofran) injection 4 mg 4 mg, Intravenous, Every 6 hours PRN, Starting on Tue08/25/25 at 0637, Until Tue08/30/25 at 1753, Routine, Recovery(Phase II-Outpatient)/On Unit(Inpatient), vomiting, nausea oxyCODONE (Roxicodone) immediate release tablet 10 mg 10 mg, Oral, Every 4 hours PRN, Starting on Tue08/21/25 at 1321, Until Jackie 08/22/25 at 0716, Routine, Recovery(Phase II-Outpatient)/On Unit(Inpatient), Moderate/Severe Pain > or =3: CPOT; > or =4: FLACC, PAINAD, NPASS, NRS, Dias-Anaya Faces; > or =5: DVPRS, NIPS Given 08/22/2025 4:42 AM EDT 10 mg Given 08/22/2025 12:29 AM EDT 10 mg Given 08/21/2025 8:38 PM EDT 10 mg oxyCODONE (Roxicodone) immediate release tablet 10 mg 10 mg, Oral, Every 6 hours PRN, Starting on Tue08/21/25 at 1710, Until Tue08/22/25 at 1528, Routine, severe pain Given 08/22/2025 10:24 AM EDT 10 mg oxyCODONE (Roxicodone) immediate release tablet 10 mg 10 mg, Oral, Every 4 hours PRN, Starting on Tue08/22/25 at 1548, Until Tue08/25/25 at 0639, Routine, severe pain Given 08/25/2025 6:14 AM EDT 10 mg Given 08/24/2025 11:59 PM EDT 10 mg Given 08/24/2025 8:27 PM EDT 10 mg oxyCODONE (Roxicodone) immediate release tablet 10 mg 10 mg, Nasogastric, Every 4 hours PRN, Starting on Tue08/25/25 at 0638, Until Tue08/30/25 at 1753, Routine, severe pain Given 08/30/2025 1:25 PM EDT 10 mg Given 08/30/2025 8:20 AM EDT 10 mg Given 08/30/2025 2:52 AM EDT 10 mg oxyCODONE (Roxicodone) immediate release tablet 5 mg 5 mg, Oral, Every 6 hours PRN, Starting on Tue08/19/25 at 0730, Until Tue08/20/25 at 0126, Routine, Recovery(Phase II-Outpatient)/On Unit(Inpatient), Moderate/Severe Pain > or =3: CPOT; > or =4: FLACC, PAINAD, NPASS, NRS, Dias-Anaya Faces; > or =5: DVPRS, NIPS Given 08/19/2025 9:29 PM EDT 5 mg oxyCODONE (Roxicodone) immediate release tablet 5 mg 5 mg, Oral, Every 4 hours PRN, Starting on Tue08/20/25 at 0126, Until Tue08/21/25 at 1322, Routine, Recovery(Phase II-Outpatient)/On Unit(Inpatient), Moderate/Severe Pain > or =3: CPOT; > or =4: FLACC, PAINAD, NPASS, NRS, Dias-Anaya Faces; > or =5: DVPRS, NIPS Given 08/21/2025 12:21 PM EDT 5 mg Given 08/21/2025 5:45 AM EDT 5 mg Given 08/20/2025 11:36 PM EDT 5 mg oxyCODONE (Roxicodone) immediate release tablet 5 mg 5 mg, Oral, Every 4 hours PRN, Starting on Jackie 08/22/25 at 1548, Until 08/25/25 at 0639, Routine, Moderate/Severe Pain > or =3: CPOT; > or =4: FLACC, PAINAD, NPASS, NRS, Dias-Anaya Faces; > or =5: DVPRS, NIPS Given 08/24/2025 8:33 AM EDT 5 mg oxyCODONE (Roxicodone) immediate release tablet 5 mg 5 mg, Nasogastric, Every 4 hours PRN, Starting on 08/25/25 at 0638, Until Tue08/30/25 at 1753, Routine, Moderate/Severe Pain > or =3: CPOT; > or =4: FLACC, PAINAD, NPASS, NRS, Dias-Anaya Faces; > or =5: DVPRS, NIPS Given 08/26/2025 3:12 AM EDT 5 mg polyethylene glycol (Miralax) packet 17 g 17 g, Nasogastric, Daily, First dose on Tue08/19/25 at 0900, Until Discontinued, Routine, Recovery(Phase II-Outpatient)/On Unit(Inpatient) Given 08/22/2025 8:53 AM EDT 17 g Given 08/21/2025 9:19 AM EDT 17 g Given 08/20/2025 8:55 AM EDT 17 g polyethylene glycol (Miralax) packet 17 g 17 g, Nasogastric, 2 times daily, First dose (after last modification) on Tue08/23/25 at 0945, Until Discontinued, Routine, Recovery(Phase II-Outpatient)/On Unit(Inpatient) Given 08/23/2025 8:33 PM EDT 17 g Given 08/23/2025 9:08 AM EDT 17 g polyethylene glycol (Miralax) packet 17 g 17 g, Nasogastric, 2 times daily, First dose (after last modification) on Tue08/25/25 at 0900, Until Discontinued, Routine, Recovery(Phase II-Outpatient)/On Unit(Inpatient) Given 08/30/2025 9:48 AM EDT 17 g Given 08/29/2025 8:00 PM EDT 17 g Given 08/28/2025 8:48 PM EDT 17 g senna (Senokot) tablet 8.6 mg 8.6 mg, Nasogastric, 2 times daily, First dose on Tue08/23/25 at 0900, Until Discontinued, Routine Given 08/30/2025 9:49 AM EDT 8.6 mg Given 08/29/2025 8:00 PM EDT 8.6 mg Given 08/29/2025 9:19 AM EDT 8.6 mg senna-docusate (Nini-Colace) 8.6-50 MG per tablet 1 tablet 1 tablet, Nasogastric, Nightly, First dose on Jackie 08/22/25 at 2100, Until Discontinued, Routine Given 08/22/2025 8:25 PM EDT 1 tablet sodium chloride 3 % nebulizer solution 3 mL 3 mL, Nebulization, 2 times daily, First dose (after last modification) on Tue08/26/25 at 0900, Until Discontinued, Routine Given 08/30/2025 8:25 AM EDT 4 mL Given 08/29/2025 9:45 PM EDT 3 mL Given 08/29/2025 7:56 AM EDT 3 mL documented in this encounter Active and Recently Administered Medications Times are shown in EDT. Scheduled Medication Order 08/28/2025 08/29/2025 08/30/2025 acetaminophen (Tylenol) tablet 1,000 mg 1,000 mg, Nasogastric, Every 6 hours scheduled, First dose (after last modification) on Tue08/20/25 at 1000, Until Discontinued, Routine, Recovery(Phase II-Outpatient)/On Unit(Inpatient) 0444 (Given - Provider: James Juan RN)0900 (Given - Provider: Marily Owens RN)1550 (MAR Hold - Provider: Automatic Transfer Provider - Reason: Patient in procedure)1600 (Dose Auto Held - Provider: Automatic Transfer Provider)1923 (MAR Unhold - Provider: Automatic Transfer Provider)2048 (Given - Provider: Carly Perez) 0505 (Given - Provider: Carly Perez)0919 (Given - Provider: Kris Douglas RN)1616 (Given - Provider: Kris Douglas RN)2155 (Given - Provider: Carly Perez) 0515 (Given - Provider: Carly Perez)0949 (Given - Provider: Kris Douglas RN)1600 (Canceled Entry - Provider: Automatic Discharge Provider - Comment: Automatically canceled at discontinue of medication order) aspirin chewable tablet 324 mg 324 mg, Nasogastric, Daily, First dose (after last modification) on Tue08/20/25 at 0900, Until Discontinued, Routine, Recovery(Phase II-Outpatient)/On Unit(Inpatient) 0902 (Given - Provider: Marily Owens RN)1550 (MAR Hold - Provider: Automatic Transfer Provider - Reason: Patient in procedure)1923 (MAR Unhold - Provider: Automatic Transfer Provider) 0919 (Given - Provider: Kris Douglas RN) 0820 (Given - Provider: Kris Douglas RN) atorvastatin (Lipitor) tablet 20 mg 20 mg, Nasogastric, Daily, First dose on Tue08/21/25 at 1315, Until Discontinued 0858 (Given - Provider: Marily Owens RN)1550 (MAR Hold - Provider: Automatic Transfer Provider - Reason: Patient in procedure)1922 (JAN Unhold - Provider: Automatic Transfer Provider) 09 (Given - Provider: Kris Douglas RN) 0820 (Given - Provider: Kris Douglas RN) bacitracin (425g jar) ointment 1 Jar (CANCELED) 1 Jar, Topical, Daily, First dose on 08/19/25 at 1900, Until Discontinued, Routine 0900 (Given - Provider: Marily Owens RN)1550 (JAN Hold - Provider: Automatic Transfer Provider - Reason: Patient in procedure)1922 (JAN Unhold - Provider: Automatic Transfer Provider) 0924 (Given - Provider: Kris Douglas, RENATO) clindamycin (Cleocin) IV solution 900 mg (COMPLETED) 900 mg, Intravenous, Once, 1 dose, On Tue08/28/25 at 1815, Routine, Anesthesia Intraprocedure 1833 (New Bag - Provider: Sergio Melo RN) esomeprazole (NexIUM) packet for suspension 40 mg 40 mg, Nasogastric, Daily, First dose on Jackie 08/22/25 at 0900, Until Discontinued 0858 (Given - Provider: Marily Owens RN)1550 ([facility] Hold - Provider: Automatic Transfer Provider - Reason: Patient in procedure)1922 ([facility] Unhold - Provider: Automatic Transfer Provider) 918 (Given - Provider: Kris Douglas RN) 08 (Given - Provider: Kris Douglas RN) gabapentin (Neurontin) capsule 300 mg 300 mg, Nasogastric, 3 times daily, First dose (after last modification) on Jackie 08/22/25 at 0900, Until Discontinued, Routine, Recovery(Phase II-Outpatient)/On Unit(Inpatient) 0859 (Given - Provider: Marily Owens RN)1550 ([facility] Hold - Provider: Automatic Transfer Provider - Reason: Patient in procedure)1600 (Dose Auto Held - Provider: Automatic Transfer Provider)1922 ([facility] Unhold - Provider: Automatic Transfer Provider)2047 (Given - Provider: Carly Perez) 0919 (Given - Provider: Kris Douglas RN)1616 (Given - Provider: Kris Douglas, RENATO)2000 (Given - Provider: Carly Perez) 0820 (Given - Provider: Kris Douglas RN)1600 (Canceled Entry - Provider: Automatic Discharge Provider - Comment: Automatically canceled at discontinue of medication order) heparin (porcine) injection 5,000 Units 5,000 Units, Subcutaneous, Every 8 hours scheduled, First dose on Tue08/20/25 at 1100, Until Discontinued, Routine 0001 (Held by provider - Provider: Kenneth Santiago MD - Reason: Upcoming test/procedure)0600 (Dose Auto Held - Provider: Kenneth Santiago MD)1400 (Dose Auto Held - Provider: Kenneth Santiago MD)2200 (Dose Auto Held - Provider: Kenneth Santiago MD) 0552 (Unheld by provider - Provider: Alvaro Adrian DMD, MD)0619 (Given - Provider: Carly Perez)1400 (Given - Provider: Kris Douglas RN)2155 (Given - Provider: Carly Perez) 0515 (Given - Provider: Carly Perez)1326 (Given - Provider: Landon Driscoll) lactobacillus acidophilus (Floranex) tablet 1 tablet 1 tablet, Nasogastric, 2 times daily, First dose on Tue08/27/25 at 0900, Until Discontinued, Routine 0858 (Given - Provider: Marily Owens RN)1550 (JAN Hold - Provider: Automatic Transfer Provider - Reason: Patient in procedure)192 (MAR Unhold - Provider: Automatic Transfer Provider)2048 (Given - Provider: Carly Perez) 0919 (Given - Provider: Kris Douglas RN)2000 (Given - Provider: Carly Perez) 0820 (Given - Provider: Kris Douglas RN) levothyroxine (Synthroid, Levoxyl) tablet 50 mcg 50 mcg, Nasogastric, Every morning, First dose (after last modification) on Tue08/20/25 at 0600, Until Discontinued, Routine, Recovery(Phase II-Outpatient)/On Unit(Inpatient) 0452 (Given - Provider: James Juan RN)1550 (MAR Hold - Provider: Automatic Transfer Provider - Reason: Patient in procedure)1923 (MAR Unhold - Provider: Automatic Transfer Provider) 0505 (Given - Provider: Carly Perez) 0515 (Given - Provider: Carly Perez) lidocaine-EPINEPHrine (Xylocaine W/EPI) 1 %-1:824072 injection 10 mL (COMPLETED) 10 mL, Infiltration, Once, 1 dose, On Jackie 08/29/25 at 0645, Routine 1126 (Given - Provider: Kris Douglas RN) melatonin tablet 6 mg 6 mg, Nasogastric, Nightly, First dose on 08/24/25 at 2100, Until Discontinued, Routine 1550 ([facility] Hold - Provider: Automatic Transfer Provider - Reason: Patient in procedure)1922 ([facility] Unhold - Provider: Automatic Transfer Provider)2047 (Given - Provider: Carly Perez) 1999 (Given - Provider: Carly Perez) metoprolol tartrate (Lopressor) split tablet 12.5 mg 12.5 mg, Nasogastric, 2 times daily, First dose on Tue08/20/25 at 1415, Until Discontinued, Routine 0859 (Given - Provider: Marily Owens, RENATO)1550 ([facility] Hold - Provider: Automatic Transfer Provider - Reason: Patient in procedure)1922 ([facility] Unhold - Provider: Automatic Transfer Provider)2047 (Given - Provider: Carly Perez) 0919 (Given - Provider: Kris Douglas RN)1999 (Given - Provider: Carly Perez) 0820 (Given - Provider: Kris Douglas RN) metoprolol tartrate (Lopressor) tablet 50 mg 50 mg, Oral, Daily, First dose on Tue08/30/25 at 1745, Until Discontinued, Routine polyethylene glycol (Miralax) packet 17 g 17 g, Nasogastric, 2 times daily, First dose (after last modification) on Tue08/25/25 at 0900, Until Discontinued, Routine, Recovery(Phase II-Outpatient)/On Unit(Inpatient) 0858 (Given - Provider: Marily Owens, RENATO)1550 ([facility] Hold - Provider: Automatic Transfer Provider - Reason: Patient in procedure)1922 ([facility] Unhold - Provider: Automatic Transfer Provider)2047 (Given - Provider: Carly Perez) 0921 (Not Given - Provider: Kris Douglas RN - Reason: Patient/Family/Repr esentative Refused)1999 (Given - Provider: Carly Perez) 0948 (Given - Provider: Kris Douglas, RENATO) senna (Senokot) tablet 8.6 mg 8.6 mg, Nasogastric, 2 times daily, First dose on Tue08/23/25 at 0900, Until Discontinued, Routine 0858 (Given - Provider: Marily Owens RN)1550 ([facility] Hold - Provider: Automatic Transfer Provider - Reason: Patient in procedure)1922 ([facility] Unhold - Provider: Automatic Transfer Provider)2047 (Given - Provider: Carly Perez) 0919 (Given - Provider: Kris Douglas, RENATO)1999 (Given - Provider: Carly Perez) 0949 (Given - Provider: Kris Douglas RN) sodium chloride 3 % nebulizer solution 3 mL 3 mL, Nebulization, 2 times daily, First dose (after last modification) on Tue08/26/25 at 0900, Until Discontinued, Routine 0850 (Given - Provider: Devante Black)1550 ([facility] Hold - Provider: Automatic Transfer Provider - Reason: Patient in procedure)1922 ([facility] Unhold - Provider: Automatic Transfer Provider)2027 (Given - Provider: Dex Perez) 0756 (Given - Provider: Gigi Killian)214 (Given - Provider: Marvel Mcrae) 0825 (Given - Provider: Kaleigh Peterson) PRN Medication Order 08/28/2025 08/29/2025 08/30/2025 bisacodyl (Dulcolax) suppository 10 mg 10 mg, Rectal, Once as needed, 1 dose, Starting on Tue08/27/25 at 0820, Until Tue08/30/25 at 1753, Routine, constipation 1550 ([facility] Hold - Provider: Automatic Transfer Provider - Reason: Patient in procedure)1922 ([facility] Unhold - Provider: Automatic Transfer Provider) bupivacaine-EPINEPHrine PF (Marcaine w/EPI) 0.25% -1:804204 injection (CANCELED) As needed, Starting on Tue08/28/25 at 1710, Until Tue08/28/25 at 1731, Routine, Intraprocedure 1710 (Given - Provider: Roma Rolon MD) EPINEPHrine PF (Sulfite-Free) (Adrenalin) injection (CANCELED) As needed, Starting on Tue08/28/25 at 1710, Until Tue08/28/25 at 1731, Routine, Intraprocedure 1710 (Given - Provider: Roma Rolon MD) fentaNYL (Sublimaze) injection 25 mcg (CANCELED)(Linked Group 1) 25 mcg, Intravenous, Every 5 min PRN, 5 doses, Starting on Tue08/28/25 at 1741, Until Tue08/28/25 at 1923, Routine, Recovery (Phase I only), DVPRS >/= 5, CPOT >/= 3, FLACC >/= 4, PAINAD >/= 4 1747 (Given - Provider: Sergio eMlo RN)175 (Given - Provider: Sergio Melo RN) magnesium hydroxide (Milk of Magnesia) 400 MG/5ML suspension 30 mL 30 mL, Oral, Daily PRN, Starting on Tue08/25/25 at 1438, Until Tue08/30/25 at 1753, Routine, constipation 1550 ([facility] Hold - Provider: Automatic Transfer Provider - Reason: Patient in procedure)192 ([facility] Unhold - Provider: Automatic Transfer Provider) ondansetron (Zofran) 4 MG/5ML solution 4 mg(Linked Group 2) 4 mg, Nasogastric, Every 6 hours PRN, Starting on Tue08/25/25 at 0637, Until Tue08/30/25 at 1753, Routine, Recovery(Phase II-Outpatient)/On Unit(Inpatient), nausea, vomiting 1550 ([facility] Hold - Provider: Automatic Transfer Provider - Reason: Patient in procedure)192 ([facility] Unhold - Provider: Automatic Transfer Provider) ondansetron (Zofran) injection 4 mg(Linked Group 2) 4 mg, Intravenous, Every 6 hours PRN, Starting on Tue08/25/25 at 0637, Until Tue08/30/25 at 1753, Routine, Recovery(Phase II-Outpatient)/On Unit(Inpatient), vomiting, nausea 1550 ([facility] Hold - Provider: Automatic Transfer Provider - Reason: Patient in procedure)192 ([facility] Unhold - Provider: Automatic Transfer Provider) oxyCODONE (Roxicodone) immediate release tablet 10 mg(Linked Group 3) 10 mg, Nasogastric, Every 4 hours PRN, Starting on 08/25/25 at 0638, Until Tue08/30/25 at 1753, Routine, severe pain 0452 (Given - Provider: James Juan RN)1550 ([facility] Hold - Provider: Automatic Transfer Provider - Reason: Patient in procedure)1922 ([facility] Unhold - Provider: Automatic Transfer Provider)2047 (Given - Provider: Carly Perez) 0230 (Given - Provider: Carly Perez)0728 (Given - Provider: Carly Perez)1400 (Given - Provider: Kris Douglas, RENATO)2000 (Given - Provider: Carly Perez) 0252 (Given - Provider: Carly Perez)0820 (Given - Provider: Kris Douglas RN)1325 (Given - Provider: Landon Driscoll) oxyCODONE (Roxicodone) immediate release tablet 5 mg(Linked Group 3) 5 mg, Nasogastric, Every 4 hours PRN, Starting on Tue08/25/25 at 0638, Until Tue08/30/25 at 1753, Routine, Moderate/Severe Pain > or =3: CPOT; > or =4: FLACC, PAINAD, NPASS, NRS, Dias-Anaya Faces; > or =5: DVPRS, NIPS 0452 (See Alternative - Provider: James Juan RN)1550 ([facility] Hold - Provider: Automatic Transfer Provider - Reason: Patient in procedure)1922 ([facility] Unhold - Provider: Automatic Transfer Provider)2047 (See Alternative - Provider: Carly Perez) 0230 (See Alternative - Provider: Carly Perez)0728 (See Alternative - Provider: Carly Perez)1400 (See Alternative - Provider: Kris Douglas RN)2000 (See Alternative - Provider: Carly Perez) 0252 (See Alternative - Provider: Carly Perez)0820 (See Alternative - Provider: Kris Douglas RN)1325 (See Alternative - Provider: Landon Driscoll) Linked Groups Order Group 1: fentaNYL (Sublimaze) injection 25 mcg (CANCELED)Jump to med 25 mcg, Intravenous, Every 5 min PRN, 5 doses, Starting on Tue08/28/25 at 1741, Until Tue08/28/25 at 1923, Routine, Recovery (Phase I only), DVPRS >/= 5, CPOT >/= 3, FLACC >/= 4, PAINAD >/= 4 Or fentaNYL (Sublimaze) injection 50 mcg (CANCELED) 50 mcg, Intravenous, Every 5 min PRN, 5 doses, Starting on Tue08/28/25 at 1741, Until Tue08/28/25 at 1923, Routine, Recovery (Phase I only), DVPRS >/= 5, CPOT >/= 3, FLACC >/= 4, PAINAD >/= 4 Group 2: ondansetron (Zofran) injection 4 mgJump to med 4 mg, Intravenous, Every 6 hours PRN, Starting on Tue08/25/25 at 0637, Until Tue08/30/25 at 1753, Routine, Recovery(Phase II-Outpatient)/On Unit(Inpatient), vomiting, nausea Or ondansetron (Zofran) 4 MG/5ML solution 4 mgJump to med 4 mg, Nasogastric, Every 6 hours PRN, Starting on Tue08/25/25 at 0637, Until Tue08/30/25 at 1753, Routine, Recovery(Phase II-Outpatient)/On Unit(Inpatient), nausea, vomiting Group 3: oxyCODONE (Roxicodone) immediate release tablet 5 mgJump to med 5 mg, Nasogastric, Every 4 hours PRN, Starting on Tue08/25/25 at 0638, Until Tue08/30/25 at 1753, Routine, Moderate/Severe Pain > or =3: CPOT; > or =4: FLACC, PAINAD, NPASS, NRS, Dias-Anaya Faces; > or =5: DVPRS, NIPS Or oxyCODONE (Roxicodone) immediate release tablet 10 mgJump to med 10 mg, Nasogastric, Every 4 hours PRN, Starting on Tue08/25/25 at 0638, Until Tue08/30/25 at 1753, Routine, severe pain documented in this encounter Additional Health Concerns Assessment Noted Time A fall risk assessment has been complete d for the patient 08/09/2025 1:39 PM EDT A Body Mass Index follow-up plan has been documented for the patient 08/30/2025 1:58 PM EDT documented as of this encounter 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 [address] [place] [address] Referring Physician 06/24/25 documented as of this encounter
--- OUTSIDE RECORDS SUMMARY | 2025-09-03 08:15 | XMS_ITS | Encounter Summary ---
Author Organization [facility] Address [address] [place] [address] Care Team Providers Care Drill Presser Name Role Phone Chandler Christina TERE Primary Care Provider [phone] Maxwell White DMD Unavailable [phone] Reason for Visit * Consultation (Urgent) - Closed Specialty Diagnoses / Procedures Referred By Fausto honeycutt Referred To Contact Plastic Surgery Diagnoses Wound of right lower extremity, initial encounter Alvaro Adrian DMD, [address] [place] [address] Phone: tel: fax: Referral ID Status Reason Start Date Expiration Date V isits Requested Visits Authorized [id number] Closed Specialty Services Required 08/30/2025 03/01/2027 1 1 Encounter Details Date Type Department Care Team (Late st Contact Info) Description 09/03/2025 9:15 AM EDT Office Visit [facility] Plastic & Reconstructive Surgery [address] [place] [phone] Marvin Santana MD [address] [place] [address] Floor of mouth squamous cell [...] any time in the past 12 m [facility], were you homeless or living in a care home (including now)? No 08/21/2025 [facility] Utilities Answer Date Recorded In the past 12 months has th e [employer], [employer], [employer], or [employer] threatened to shut off services in your [...] floor of mouth SCC [facility] and subsequent free osteocutaneous fibula reconstruction (Max-08/19/25) [...] shellfish, penicillan CAD (coronary artery disease) Cancer ([facility]) [id number] Coronary artery calcification Dental disease chipped teeth, [...] [facility] Center Plastic & Reconstructive Surgery [address] [place] [address] Marvin Santana MD [address] [phone] documented as of this encounter Visit Diagnoses [...] documented as of this encounter Care Teams Drill Presser Relationship Specialty Start Date End Date Christina Arteaga APRN [address] [place] [address] PCP - General 06/20/25 Maxwell White DMD [address] [place] [address] Referring Physician 06/24/25 documented as of this encounter
--- OUTSIDE RECORDS SUMMARY | 2025-09-06 12:00 | XMS_ITS | Encounter Summary ---
Author Organization [facility] Address [address] [place] [address] Care Team Providers Care Tree Care Foreman Name Role Phone Christina Arteaga TERE Primary Care Provider Maxwell White DMD Unavailable [phone] Reason for Visit * Reason Comments Follow-up Encounter Details Date Type Department Care Team ([facility] Contact Info) Description 09/06/2025 1:00 PM EDT Office Visit [facility] Head[facility] Neck [facility] Respiratory [address] [place] [phone] Alvaro Adrian DMD, MD [address] [facility] [address] [place] [address] Squamous cell carcinoma of mandible [...] in the past 12 m [facility], were you homeless or living in a fdc (including now)? No 08/21/2025 [facility] Utilities Answer Date Recorded In the past [...] dissection, extraction of #2,3,5,6,7,8,9,10,11,12,13,15,28,29,[address] [facility]ula reconstruction by Dr Santana on [...] and recommended to continue feeding through the [facility]. They report that they have not changed [...] adjuvant radiation and chemotherapy due to his [id number] disease with adverse features (WPOI 5, lymphovascular [...] 11/26/2025 10:45 AM EST Office Visit [facility] Plastic & Reconstructive Surgery [address] [place] [phone] Marvin Santana MD [address] [place] [phone] documented as of this encounter Visit Diagnoses Diagnosis Squamous cell carcinoma of mandible- Primary documented in this encounter Additional Health Concerns Assessment Noted Time A fall risk assessment has been complete d for the patient 09/06/2025 12:49 PM EDT A Body Mass Index follow-up plan has been documented for the patient 09/04/2025 9:49 AM EDT documented as of this encounter Care Teams Tree Care Foreman Relationship Specialty Start Date End Date Christina Arteaga APRN [address] [place] [address] PCP - General 06/20/25 Maxwell White DMD [facility] [address] [place] [address] Referring Physician 06/24/25 documented as of this encounter
--- OUTSIDE RECORDS SUMMARY | 2025-09-17 09:15 | XMS_ITS | Encounter Summary ---
Author Organization Healthcare Address [address] 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 No 08/21/2025 [facility] Utilities Answer Date Recorded In the past 12 months has th e [employer], gas, oil, or water [email or web address] threatened to shut off services in your [...] Description 11/26/2025 10:45 AM EST Office Visit [facility] Plastic & Reconstructive Surgery [address] [place] [phone] Marvin Santana MD [address] [facility] [address] [place] [address] documented as of this encounter Visit Diagnoses [...] documented as of this encounter Care Teams Oil Well Services Supervisor Relationship Specialty Start Date End Date Christina Arteaga APRN [address] [place] [address] PCP - General 06/20/25 Maxwell White DMD [facility] [address] [place] [address] Referring Physician 06/24/25 documented as of this encounter
--- OUTSIDE RECORDS SUMMARY | 2025-09-17 13:00 | XMS_ITS | Encounter Summary ---
Author Organization Healthcare Address [address] [place] [address] Care Team Providers Care Mixer Operator Name Role Phone ChandlerChristina silva TERE Primary Care Provider [phone] Maxwell White DMD Unavailable [phone] Encounter Details Date Type Department Care Team (Late st Contact Info) Description 09/17/2025 1:00 PM EST Office Visit [facility] spectral scientist Faculty Clinic [address] [facility] [address] [place] [address] Alvaro Adrian DMD, MD [address] [place] [address] Squamous cell carcinoma of mandible [...] in the past 12 m [facility], were you homeless or living in a mcfp (including now)? No 08/21/2025 [facility] Utilities Answer Date Recorded In the past 12 months has th e [employer], gas, oil, or water company threatened to [...] [facility] [address] [place] [address] Marvin Santana MD [address] [address] documented as of this encounter [...] documented as of this encounter Care Teams Mixer Operator Relationship Specialty Start Date End Date Christina Arteaga APRN [address] [place] [address] PCP - General 06/20/25 Maxwell White DMD [facility] [place] [address] [address] Referring Physician 06/24/25 documented as of this encounter
--- OUTSIDE RECORDS SUMMARY | 2025-10-08 09:15 | XMS_ITS | Encounter Summary ---
Author Organization Healthcare Address [address] [place] [address] Care Team Providers Care Career Guidance Technician Name Role Phone Christina Arteaga APRN Primary Care Provider [phone] Maxwell White DMD Unavailable [phone] Encounter Details Date Type Department Care Team (Late st Contact Info) Description 10/08/2025 9:15 AM EST Office Visit [facility] Plastic & Reconstructive Surgery [address] [place] [phone] Marvin Santana MD [address] [phone] Postoperative examination (Primary Dx) Social History Tobacco [...] any time in the past 12 m [facility], were you homeless or living in a care home (including now)? No 08/21/2025 [facility] Utilities Answer Date Recorded In the past 12 months has th e [employer], gas, oil, or water [employer] threatened to shut off services in your [...] encounter Miscellaneous Notes * Progress Notes - oCrrine Barriga, SWATCH FOLDER - 10/08/2025 9:15 AM EST Subjective Patient [...] Plastic & Reconstructive Surgery [address] [place] [phone] Marvin Santana MD [address] [phone] documented as of this encounter Visit Diagnoses [...] documented as of this encounter Care Teams Career Guidance Technician Relationship Specialty Start Date End Date Christina Arteaga APRN [address] [place] [address] PCP - General 06/20/25 Maxwell White, CLEM [address] [place] [address] [address] [place] [address] Referring Physician 06/24/25 documented as of this encounter
--- OUTSIDE RECORDS SUMMARY | 2025-10-08 10:30 | XMS_ITS | Encounter Summary ---
Author Organization Healthcare Address [address] [place] [address] Care Team Providers Care Oiler Bander Name Role Phone ChandlerChristina silva TERE Primary Care Provider [phone] Maxwell White DMD Unavailable [phone] Encounter Details Date Type Department Care Team (Late st Contact Info) Description 10/08/2025 10:30 AM EST Office Visit [facility] firer bisque kiln Faculty [facility] [address] [facility] [address] [place] [address] Alvaro Adrian DMD, MD [address] [place] [address] Squamous cell carcinoma of mandible [...] any time in the past 12 m [facility], were you homeless or living in a chcf (including now)? No 08/21/2025 [facility] Utilities Answer Date Recorded In the past 12 months has th e [employer], gas, oil, or water company threatened to shut off services in your home? No 08/21/2025 Sex and Gender Information Value Date Recorded Sex Assigned at Not on file Legal Sex Male 8:28 PM EDT Gender Identity Male 06/18/2025 11:51 AM EDT Sexual Orientation Not on file documented as of this encounter Last Filed Vital Signs Vital Sign Reading Time Taken Comments Blood Pressure 96/63 10/08/2025 10:42 AM EST Pulse 68 10/08/2025 10:42 AM EST Temperature - - Respiratory Rate - - Oxygen Saturation 99% 10/08/2025 10:42 AM EST Inhaled Oxygen Concentration - - Weight 89 kg (196 lb 3.4 oz) 10/08/2025 10:42 AM EST Height 180.3 cm (5' 11 ) 10/08/2025 10:42 AM EST Body Mass Index 27.37 10/08/2025 10:42 AM EST documented in this encounter Miscellaneous Notes * Progress Notes - Angus Mayo DMD - 10/08/2025 10:30 AM EST Oral & Maxillofacial Surgery - Head & Neck Oncology Follow-Up Note DIAGNOSIS: pT4a, pN1, M0 FOM SCCa TREATMENT HISTORY: tracheotomy, left partial glossectomy, left segmental mandibulectomy, left selective neck dissection, extraction of all remaining teeth, direct laryngoscopy with biopsy, fibula free flap w/STSG by PLAS on 08/19/25 Subjective: Carlito Perez is a 54 y.o. male who presents for 6 weeks post-op f/u. Patient reports he isdoing well and mentioned he will be starting radiation therapy and chemotherapy next week. Patient denies any pain and improvement in L V3 hypoesthesia. Patient is tolerating clear liquids well and denies f/c/n/v. Denies any dysphagia, odynophagia, otalgia, hoarseness, fatigue or recent illnesses. Objective: Vitals: 10/08/25 1042 BP: 96/63 Pulse: 68 SpO2: 99% PHYSICAL EXAM Gen: NAD, healthy male appearing stated age Head/Face: NCAT Oral: DENNIS 35 mm. Extraction sites completely granulated. Free flap reconstruction of left mandible stable, good turgor, no sign of congestion within the flap. Buccal mucosa, hard and soft palate, FOM, labial mucosa, all surfaces of tongue free of lesions or masses. Tongue FROM, FOM soft and non-elev ated, no uvular deviation. Neck: No swelling, asymmetry, [...] care, good insight to condition, reliable historian Assessment/Plan: Carlito Perez is a 54 y.o. 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 - Continue with clear liquid diet until start radiation and chemotherapy F/U 2 months Angus Mayo DMD Cosigned by Alvaro Adrian DMD, MD at 10/22/2025 12:55 PM EST Associated attestation - Alvaro Adrian DMD, MD - 10/22/2025 12:55 PM EST I saw and evaluated the [...] Description 11/26/2025 10:45 AM EST Office Visit [facility] Plastic & Reconstructive Surgery [address] [place] [address] Marvin Santana MD [address] [place] [phone] documented as of this encounter Visit Diagnoses Diagnosis Squamous cell carcinoma of mandible- Primary documented in this encounter Additional Health Concerns Assessment Noted Time A fall risk assessment has been complete d for the patient 10/08/2025 8:59 AM EST A Body Mass Index follow-up plan has been documented for the patient 10/24/2025 10:56 AM EST documented as of this encounter Care Teams Oiler Bander Relationship Specialty Start Date End Date Christina Arteaga APRN [address] [place] [address] PCP - General 06/20/25 Maxwell White, CLEM [facility] [place] Dr [address] [place] [address] Referring Physician 06/24/25 documented as of this encounter
--- OUTSIDE RECORDS SUMMARY | 2025-10-15 12:29 | XMS_ITS | Continuity of Care Document ---
Author Organization [facility] Phone Care Team Providers Care English Horn Player Name Role Phone CYNDEE TAYLOR Primary Attending [...] Effective Dates Offered Cessation Comment Updated By [id number] Smoking Status Unknown If Ever Smoked SOCIAL HISTORY - Gender Sex: Male SOCIAL HISTORY - Status : status i nformation is not available Intention in Next Year: intention information is not available SOCIAL HISTORY - Assessments Code System Description Status Date Value of Assessment Updated By Comment Assessment Information is no t available SOCIAL HISTORY - [place] Affiliation [place] information is not av ailable SOCIAL HISTORY [...] RADIATION Admission October 02, 2025 5:53:00 PM [place] [id number] [facility] [id number] Discharge October 14, 2025 4:59:00 AM [facility] DISCHARGED TO HOME OR SELF CARE ENCOUNTER DIAGNOSES Notes information is not roly ilable. Code System Diagnosis Onset Date Diagnosis information is not available. 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 [id number] on October 15, 2025 5:28:49 PM UTC F17.210 ICD10 NICOTINE DEPENDE NCE, CIGARETTES, UNCOMPLICATED [id number] on October 15, 2025 5:28:49 PM UTC Z88.0 ICD10 ALLERGY STATUS TO PENICILLIN [id number] on October 15, 2025 5:28:49 PM [facility] CARE TEAM Care English Horn Player Role CYNDEE TAYLOR Primary Attending JOHN DENTON Referring CYNDEE TAYLOR Admitting DEFINED NO Primary Care CARE TEAM CARE head baggage porter Role on Team Location Telecom Status Start Date End Elvin e Updated By NO DEFINED PRIMARY C PCP normal September 13, 2025 3:41:06 PM [facility] October 14, 2025 4:59:00 AM [facility] [id number] on September 13, 2025 3:41:06 PM [facility] BERTIN Lawler Referring normal September 13, 2025 3:41:06 PM [facility] October 14, 2025 4:59:00 AM [facility] [id number] on September 13, 2025 3:41:06 PM [facility] BRANDON WASSERMAN Attending normal September 13, 2025 3:41:06 PM [facility] October 14, 2025 4:59:00 AM [facility] [id number] on September 13, 2025 3:41:06 PM [facility] BRANDON WASSERMAN Admitting normal September 13, 2025 3:41:06 PM [facility] October 14, 2025 4:59:00 AM [facility] [id number] on September 13, 2025 3:41:06 PM [facility]
[2025-10-29] VITALS (10 sets, daily range): BP systolic 126–141; BP diastolic 64–72; PULSE 67–74; RESP 20; TEMP 36.6; O2SAT 98; BMI 26.7
--- OUTSIDE RECORDS SUMMARY | 2025-10-29 09:00 | XMS_ITS | Encounter Summary ---
Author Organization Healthcare Address [address] [place] [address] Care Team Providers Care Director Of Field Sales Name Role Phone Chandler Christina CARRANZA Primary Care Provider [phone] Maxwell White DMD Unavailable [phone] Reason for Visit * Reason Onset Date Comments Med Refill 09/23/2025 Encounter Details Date Type Department Care Team (Late st Contact Info) Description 09/23/2025 Refill [facility] Res[facility] [address] [place] [address] Isha Walters, RENATO None None Squamous cell [...] any time in the past 12 m [facility], were you homeless or living in a prison (including now)? 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
--- OUTSIDE RECORDS SUMMARY | 2025-10-29 09:00 | XMS_ITS | Encounter Summary ---
Author Organization Healthcare Address [address] [place] [address] Care Team Providers Care Group Controller Name Role Phone Christina Arteaga APRN Primary Care Provider [phone] Maxwell White DMD Unavailable [phone] Encounter Details Date Type Department Care Team (Late st Contact Info) Description 09/20/2025 Telephone [facility] Plastic & Reconstructive Surgery [address] [place] [address] Marvin Santana MD [address] [phone] Social History Tobacco Use Types [...] any time in the past 12 m [facility], were you homeless or living in a residential (including now)? No 08/21/2025 [facility] Utilities Answer Date Recorded In the [...] Sent an email * Telephone Encounter - Lois Mcclendon - 09/20/2025 1:15 PM EST Clinical Concern/Question Reason for Call: pt has a week left of tylenol at increased dosage and wants to know if they will need a refill on that? Pharmacy: [facility] please call Best contact number: [phone] Optimal time of day to reach caller: ANYTIME Additional comments/information from caller: Not Applicable Note: Please do not reply to this message. Follow-up communication and further actions as a result of this message need to be communicated with the patient directly, if the patient is not active onMyChart. If the patient is active on MyChart, they will receive notification of the communication/outcome via Fleck. documented in this encounter Plan of Treatment Upcoming Encounters Date Type Department Care Team (Late st Contact Info) Description 11/26/2025 10:45 AM EST Office Visit [facility] Plastic & Reconstructive Surgery [address] [place] [address] Marvin Santana MD [address] [phone] documented as of this encounter Visit Diagnoses Not on filedocumented in this encounter Additional Health Concerns Assessment Noted Time A fall risk assessment has been complete d for the patient 09/17/2025 8:59 AM EST A Body Mass Index follow-up plan has been documented for the patient 09/24/2025 1:07 PM EST documented as of this encounter Care Teams Group Controller Relationship Specialty Start Date End Date Christina Arteaga APRN [address] [place] [phone] PCP - General 06/20/25 Maxwell White, DMD [facility] [address] [place] [address] Referring Physician 06/24/25 documented as of this encounter
--- OUTSIDE RECORDS SUMMARY | 2025-10-29 09:00 | XMS_ITS | Encounter Summary ---
Author Organization Healthcare Address [address] [place] [address] Care Team Providers Care Preparer Samples And Repairs Name Role Phone Christina Arteaga APRN Primary Care Provider [phone] Maxwell White DMD Unavailable [phone] Encounter Details Date Type Department Care Team (Late st Contact Info) Description 09/20/2025 Orders Only [facility] Plastic & Reconstructive Surgery [address] [place] [phone] Corrine Barriga APRN [address] [facility] [address] [place] [address] Social History Tobacco Use Types [...] in a fpc (including now)? No 08/21/2025 [facility] Utilities Answer Date Recorded In the past 12 months has th e SERPs, gas, oil, or water company threatened to [...] Description 11/26/2025 10:45 AM EST Office Visit [facility] Plastic & Reconstructive Surgery [address] [place] [address] Marvin Santana MD [address] [place] [phone] documented as of this encounter Visit Diagnoses Not on filedocumented in this encounter Additional Health Concerns Assessment Noted Time A fall risk assessment has been complete d for the patient 09/17/2025 8:59 AM EST A Body Mass Index follow-up plan has been documented for the patient 09/24/2025 1:07 PM EST documented as of this encounter Care Teams Preparer Samples And Repairs Relationship Specialty Start Date End Date Christina Arteaga APRN [address] [place] [address] PCP - General 06/20/25 Maxwell White DMD [facility][note 3] [address] [place] [address] Referring Physician 06/24/25 documented as of this encounter
--- OUTSIDE RECORDS SUMMARY | 2025-10-29 09:00 | XMS_ITS | Encounter Summary ---
Author Organization [facility] Address [address] [place] [address] Care Team Providers Care Transliterator Name Role Phone Chandler Christina TERE Primary Care Provider [phone] Christopher Maxwell Francy DMD Unavailable [phone] Encounter Details Date Type Department Care Team [...] in the past 12 m [facility], were you homeless or living in a group home (including now)? No 08/21/2025 [facility] Utilities Answer Date Recorded In the [...] Plastic & Reconstructive Surgery [address] [place] [phone] Marvin Sanatna MD [address] [place] [phone] documented as of this encounter Visit Diagnoses Not on filedocumented in this encounter Additional Health Concerns Assessment Noted Time A fall risk assessment has been complete d for the patient 09/06/2025 12:49 PM EDT A Body Mass Index follow-up plan has been documented for the patient 09/04/2025 9:49 AM EDT documented as of this encounter Care Teams Transliterator Relationship Specialty Start Date End Date Christina Arteaga APRN [address] [place] [address] PCP - General 06/20/25 Maxwell White, CLEM [address] [place] [address] [address] [place] [address] Referring Physician 06/24/25 documented as of this encounter
--- OUTSIDE RECORDS SUMMARY | 2025-10-29 09:01 | XMS_ITS | Encounter Summary ---
Author Organization [facility] Address [address] [place] [address] Care Team Providers Care Magazine Hand Name Role Phone Chandler Christina TERE Primary Care Provider [phone] Christopher Maxwell Francy DMD Unavailable [phone] Encounter Details Date Type Department Care Team [...] in the past 12 m [facility], were you homeless or living in a half-way (including now)? No 08/21/2025 [facility] Utilities Answer Date Recorded In the past [...] Description 11/26/2025 10:45 AM EST Office Visit [facility] Plastic & Reconstructive Surgery [address] [place] [address] Marvin Santana MD [address] [place] [phone] documented as of this encounter Visit Diagnoses Not on filedocumented in this encounter Additional Health Concerns Assessment Noted Time A fall risk assessment has been complete d for the patient 09/17/2025 8:59 AM EST A Body Mass Index follow-up plan has been documented for the patient 09/24/2025 1:07 PM EST documented as of this encounter Care Teams Magazine Hand Relationship Specialty Start Date End Date Christina Arteaga APRN [address] [place] [address] PCP - General 06/20/25 Maxwell White, CLEM [address] [place] [address] [address] [place] [address] Referring Physician 06/24/25 documented as of this encounter
--- OUTSIDE RECORDS SUMMARY | 2025-10-29 09:01 | XMS_ITS | Encounter Summary ---
Author Organization [facility] Address [address] [place] [address] Care Team Providers Care Mixing Technician Name Role Phone Chandler Christina TERE Primary Care Provider [phone] Christopher Maxwell Francy DMD Unavailable [phone] Encounter Details Date Type Department Care Team [...] any time in the past 12 m [facility], were you homeless or living in a chcf (including now)? No 08/21/2025 [facility] [...] & Reconstructive Surgery [address] [place] [phone] Marvin Santana MD [address] [place] [phone] documented as of this encounter Visit Diagnoses Not on filedocumented in this encounter Additional Health Concerns Assessment Noted Time A fall risk assessment has been complete d for the patient 08/09/2025 1:39 PM EDT A Body Mass Index follow-up plan has been documented for the patient 08/30/2025 1:58 PM EDT documented as of this encounter Care Teams Mixing Technician Relationship Specialty Start Date End Date Christina Arteaga APRN [address] [place] [address] PCP - General 06/20/25 Maxwell White, CLEM [facility] [address] [place] [address] Referring Physician 06/24/25 documented as of this encounter
--- OUTSIDE RECORDS SUMMARY | 2025-10-29 09:01 | XMS_ITS | Encounter Summary ---
Author Organization [facility] Address [address] [place] [address] Care Team Providers Care Box Spring Maker Name Role Phone Chandler Christina TERE Primary Care Provider [phone] Christopher Maxwell Francy DMD Unavailable [phone] Encounter Details Date Type Department Care Team [...] in a fdc (including now)? No 08/21/2025 [facility] Utilities Answer Date Recorded In [...] Plastic & Reconstructive Surgery [address] [place] [address] Marvin Santana MD [address] [place] [phone] documented as of this encounter Visit Diagnoses Not on filedocumented in this encounter Additional Health Concerns Assessment Noted Time A fall risk assessment has been complete d for the patient 10/08/2025 8:59 AM EST A Body Mass Index follow-up plan has been documented for the patient 10/24/2025 10:56 AM EST documented as of this encounter Care Teams Box Spring Maker Relationship Specialty Start Date End Date Christina Arteaga APRN [address] [place] [address] PCP - General 06/20/25 Maxwell White, CLEM [address] [place] [address] [address] [place] [address] Referring Physician 06/24/25 documented as of this encounter
--- OUTSIDE RECORDS SUMMARY | 2025-10-29 09:01 | XMS_ITS | Encounter Summary ---
Author Organization Healthcare Address [address] [place] [address] Care Team Providers Care Staining Machine Operator Name Role Phone Christina Arteaga APRN Primary Care Provider [phone] Maxwell White DMD Unavailable [phone] Encounter Details Date Type Department Care Team (Late st Contact Info) Description 07/01/2025 [facility] [address] [place] [address] [place] [address] Social History Tobacco [facility] [address] [place] [phone] Marvin Santana MD [address] [facility] [address] [place] [address] documented as of this encounter Visit Diagnoses Not on filedocumented in this encounter Additional Health Concerns Assessment Noted Time A fall risk assessment has been complete d for the patient 06/28/2025 3:34 PM EDT A Body Mass Index follow-up plan has been documented for the patient 06/25/2025 11:35 AM EDT documented as of this encounter Care Teams Staining Machine Operator Relationship Specialty Start Date End Date Christina Arteaga APRN [address] [place] [address] PCP - General 06/20/25 Maxwell White, CLEM [address] [place] [address] [address] [place] [address] Referring Physician 06/24/25 documented as of this encounter
--- OUTSIDE RECORDS SUMMARY | 2025-10-29 09:01 | XMS_ITS | Encounter Summary ---
Author Organization [facility] Address [address] [place] [address] Care Team Providers Care Show Host/Hostess Name Role Phone Christina Arteaga APRN Primary Care Provider [phone] Maxwell White DMD Unavailable [phone] Encounter Details Date Type Department Care Team (Late st Contact Info) Description 06/18/2025 [facility] [address] [place] [address] Maxwell White, DMD [facility] 101 [place] [address] Social History Tobacco Use Types Packs/Day Years [...] [facility] [address] [place] [phone] Marvin Santana MD [address] [phone] documented as of this encounter Visit Diagnoses Not on filedocumented in this encounter Care Teams Show Host/Hostess Relationship Specialty Start Date End Date Christina Arteaga APRN [address] [place] [address] PCP - General 06/20/25 Maxwell White, DMD [facility] [address] [place] [address] Referring Physician 06/24/25 documented as of this encounter
--- OUTSIDE RECORDS SUMMARY | 2025-10-29 09:01 | XMS_ITS | Encounter Summary ---
Author Organization [facility] Address [address] [place] [address] Care Team Providers Care Armoured Car Escort Name Role Phone Chandler Christina TERE Primary Care Provider [phone] Christopher Maxwell Francy DMD Unavailable [phone] Encounter Details Date Type Department Care Team [...] [facility] (including now)? No 08/21/2025 [facility] Utilities Answer Date Recorded In the past [...] Plastic & Reconstructive Surgery [address] [place] [address] Marvin Santana MD [address] [place] [phone] documented as of this encounter Visit Diagnoses Not on filedocumented in this encounter Additional Health Concerns Assessment Noted Time A fall risk assessment has been complete d for the patient 09/17/2025 8:59 AM EST A Body Mass Index follow-up plan has been documented for the patient 09/24/2025 1:07 PM EST documented as of this encounter Care Teams Armoured Car Escort Relationship Specialty Start Date End Date Christina Arteaga APRN [address] [place] [address] PCP - General 06/20/25 Maxwell White, CLEM [address] [place] [address] [address] [place] [address] Referring Physician 06/24/25 documented as of this encounter
--- OUTSIDE RECORDS SUMMARY | 2025-10-29 09:01 | XMS_ITS | Encounter Summary ---
Author Organization [facility] Address [address] [place] [address] Care Team Providers Care Aix Architect Name Role Phone Christina Arteaga APRN Primary Care Provider [phone] Maxwell White DMD Unavailable [phone] Reason for Visit * Reason Onset Date Comments HCN Clinical Concern/Question 09/27/2025 Encounter Details Date Type Department Care Team (Late st Contact Info) Description 09/27/2025 Telephone [facility] Plastic & Reconstructive Surgery [address] [place] [address] Marvin Santana MD [address] [address] HCN Clinical Concern/Question Social History [...] any time in the past 12 m [facility], were you homeless or living in a [place] [facility] [place] facility (including now)? No 08/21/2025 [facility] [...] to call back. * Telephone Encounter - Richard Wilkins - 09/27/2025 2:18 PM EST Clinical Concern/Question [...] aspirin, ibuprofen and acetaminophen. Best contact number: [phone] Optimal time of day to reach caller: ANYTIME Additional comments/information from caller: None Note: Please do not reply to this message. Follow-up communication and further actions as a result of this message need to be communicated with the patient directly, if the patient is not active onMyChart. If the patient is active on MyChart, they will receive notification of the communication/outcome via [email or web address]. documented in this encounter Plan of Treatment Upcoming Encounters Date Type Department Care Team (Late st Contact Info) Description 11/26/2025 10:45 AM EST Office Visit [facility] Plastic & Reconstructive Surgery [address] [place] [address] Marvin Santana MD [address] [phone] documented as of this encounter Visit Diagnoses Not on filedocumented in this encounter Additional Health Concerns Assessment Noted Time A fall risk assessment has been complete d for the patient 09/17/2025 8:59 AM EST A Body Mass Index follow-up plan has been documented for the patient 09/24/2025 1:07 PM EST documented as of this encounter Care Teams Aix Architect Relationship Specialty Start Date End Date Christina Arteaga APRN [address] [place] [address] PCP - General 06/20/25 Maxwell White, DMD [facility] [address] [place] [address] Referring Physician 06/24/25 documented as of this encounter
--- OUTSIDE RECORDS SUMMARY | 2025-10-29 09:01 | XMS_ITS | Encounter Summary ---
Author Organization [facility] Address [address] [place] [address] Care Team Providers Care Electron Beam Machine Welder Setter Name Role Phone Christina Arteaga TERE Primary Care Provider Maxwell White DMD Unavailable [phone] Encounter Details Date Type Department Care Team (Late st Contact Info) Description 07/02/2025 Lab Requisition [facility] [address] [place] [address] Nalini Mcrae, DMD 800 [facility] [address] [place] [phone] Unspecified lesions of oral mucosa Social History [...] [facility] Plastic & Reconstructive Surgery [address] [place] [phone] Marvin Santana MD [address] [address] documented as of this encounter Procedures Procedure Name Priority Date/Time Associated Diagnosis Comments SURGICAL PATHOLOGY CONSULT Routine 06/25/2025 Unspecified lesions of oral mucosa documented in this encounter Results * Surgical Pathology Consult (06/25/2025) Case Report Sugical Pathology Consult Case: [id number] Authorizing Provider: Nalini Mcrae DMD Collected: 06/25/2025 Ordering Location: [facility] Received: 07/02/2025 0734 Pathologist: Timothy Chacon MD Specimen: [id number] 3:35 PM EDT [facility] Final Diagnosis A. 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 POSITIVE SCORE (CPS)*: 75 (SEE BELOW FOR ADDITIONAL DETAILS) 3:35 PM EDT [facility] at 1535 EDT Clinical Information K13.70 - Unspecified lesions of oral mucosa [ICD-10-CM] 3:35 PM EDT [facility] Special and Immunohistochemical Stains [...] supporting tumor stroma, as determined by assay transfer driver, showing partial or complete linear membrane and/or [...] IHC 22C3 pharmDx is not a FDA-approved neurosurgery research director diagnostic for pembrolizumab performed on [employer] St[employer], using formalin-fixed, paraffin imbedded (FFPE) tissue [...] developed by and is performed at the [facility], [address] [place] [address], and has not been cleared by or approved by the US Food and Drug Administration (FDA). The laboratory is regulated under CLIA as qualified to perform high-complexity testing. The tests are used for clinical purposes. They should not be regarded as investigational or for research. 3:35 PM EDT [facility] Gross Description A. [id number] 1 H&E a block are received from oral pathology for PD-L1 interpretation. The specimen was collected on 06/25/25. 3:35 PM EDT [facility] Note: A resident was involved in the service. I attest I examined the relevant preparations for the specimens and confirmed the diagnosis or interpretation. 3:35 PM EDT [facility] Tissue 06/25/2025 07/02/2025 7:3 4 AM EDT Nalini Mcrae DMD LAB PATHOLOGY ORDERABLES Final Result [facility] [address] [place] [address] documented in this encounter Visit Diagnoses Diagnosis Unspecified lesions of oral mucosa documented in this encounter Additional Health Concerns Assessment Noted Time A Body Mass Index follow-up plan has been documented for the patient 06/25/2025 11:35 AM EDT documented as of this encounter Care Teams Electron Beam Machine Welder Setter Relationship Specialty Start Date End Date Christina Arteaga APRN [address] [place] [address] PCP - General 06/20/25 Maxwell White DMD [facility] [address] [place] [address] Referring Physician 06/24/25 documented as of this encounter
--- OUTSIDE RECORDS SUMMARY | 2025-10-29 09:01 | XMS_ITS | Encounter Summary ---
Author Organization [facility] Address [address] [place] [address] Care Team Providers Care Stamp Collector Name Role Phone Chandler Christina TERE Primary Care Provider [phone] Christopher Maxwell Francy DMD Unavailable [phone] Encounter Details Date Type Department Care Team [...] were you homeless or living in a skilled nursing (including now)? No 08/21/2025 [facility] Utilities Answer Date Recorded In the [...] 10:45 AM EST Office Visit [facility] Plastic & Reconstructive Surgery [address] [place] [phone] Marvin Santana MD [address] [place] [phone] documented as of this encounter Visit Diagnoses Not on filedocumented in this encounter Additional Health Concerns Assessment Noted Time A fall risk assessment has been complete d for the patient 09/06/2025 12:49 PM EDT A Body Mass Index follow-up plan has been documented for the patient 09/04/2025 9:49 AM EDT documented as of this encounter Care Teams Stamp Collector Relationship Specialty Start Date End Date Christina Arteaga APRN [address] [place] [address] PCP - General 06/20/25 Maxwell White, CLEM [address] [place] [address] [address] [place] [address] Referring Physician 06/24/25 documented as of this encounter
--- OUTSIDE RECORDS SUMMARY | 2025-10-29 09:02 | XMS_ITS | Encounter Summary ---
Author Organization [facility] Address [address] [place] [address] Care Team Providers Care Dry Cell Assembly Machine Tender Name Role Phone Chandler Christina TERE Primary Care Provider [phone] Maxwell White DMD Unavailable [phone] Reason for Referral * Consultation (Routine) - Authorized Specialty Diagnoses / Procedures Referred By Fausto honeycutt Referred To Contact Oral Surgery [place] [address] fax: [facility] [employer] [facility] [address] [place] [address] [address] [place] [address] Phone: tel: Referral ID Status Reason Start Date Expiration Date Visits Requested Visits Authorized [id number] Authorized Specialty Services Required 07/03/2025 01/02/2027 1 1 Encounter Details Date Type Department Care Team (Late st Contact Info) Description 07/03/2025 [facility] [address] [place] [address] [place] [address] Oral lesion (Primary Dx) Social History Tobacco [...] 10:45 AM EST Office Visit [facility] Plastic & Reconstructive Surgery [address] [place] [address] Marvin Santana MD [address] [address] Scheduled Referrals Name Type Priority Associated Diagnoses [...] documented as of this encounter Care Teams Dry Cell Assembly Machine Tender Relationship Specialty Start Date End Date Christina Arteaga APRN [address] [place] [address] PCP - General 06/20/25 Maxwell White DMD [facility] [address] [place] [address] Referring Physician 06/24/25 documented as of this encounter
--- OUTSIDE RECORDS SUMMARY | 2025-10-29 09:02 | XMS_ITS ---
Author Organization [facility] Address [address] [place] [address] Care Team Providers Care Caramel Cutter Helper Name Role Phone Christina Arteaga TERE Primary Care Provider [phone] Maxwell White DMD Unavailable [phone] Active Problems Problem Noted Date Diagnosed Date [...]
--- OUTSIDE RECORDS SUMMARY | 2025-10-29 09:02 | XMS_ITS | Encounter Summary ---
Author Organization [facility] Address [address] 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 Bets number to call for scheduling is patients Elicia :[phone] Encounter Details Date Type Department Care Team (Late st Contact Info) Description 09/02/2025 Orders Only [facility] Head[facility] Neck & Respiratory [address] [place] [address] Isha Walters RN None None Squamous cell [...] any time in the past 12 m [facility], were you homeless or living in a alf (including now)? No 08/21/2025 [facility] [...] Plastic & Reconstructive Surgery [address] [place] [address] Marvin Santana MD [address] [address] Scheduled Referrals Name Type Priority Associated Diagnoses [...] as of this encounter Care Teams Manager System Relationship Specialty Start Date End Date Christina Arteaga APRN [address] [place] [address] PCP - General 06/20/25 Maxwell White, CLEM [facility] [place] [address] [place] [address] Referring Physician 06/24/25 documented as of this encounter
--- OUTSIDE RECORDS SUMMARY | 2025-10-29 09:02 | XMS_ITS | Encounter Summary ---
Author Organization [facility] Address [address] [place] [address] Care Team Providers Care Nonfarm Animal Caretaker Name Role Phone Chandler Christina TERE Primary Care Provider [phone] Christopher Maxwell Francy DMD Unavailable [phone] Encounter Details Date Type Department Care Team [...] time in the past 12 m [facility], were you homeless or living in a residential (including now)? No 08/21/2025 [facility] [...] Plastic & Reconstructive Surgery [address] [place] [address] Marvin Santana MD [address] [place] [phone] documented as of this encounter Visit Diagnoses Not on filedocumented in this encounter Additional Health Concerns Assessment Noted Time A fall risk assessment has been complete d for the patient 09/03/2025 9:03 AM EDT A Body Mass Index follow-up plan has been documented for the patient 09/04/2025 9:49 AM EDT documented as of this encounter Care Teams Nonfarm Animal Caretaker Relationship Specialty Start Date End Date Christina Arteaga APRN [address] [place] [address] PCP - General 06/20/25 Maxwell White, CLEM [facility] [address] [place] [address] Referring Physician 06/24/25 documented as of this encounter
--- OUTSIDE RECORDS SUMMARY | 2025-10-29 09:02 | XMS_ITS | Clinical Summary ---
Author Organization [facility] Address [address] [place] [address] Care Team Providers Care Dental Laboratory Technician Name Role Phone Chandler Christina TERE Primary Care Provider [phone] Maxwell White DMD Unavailable [phone] Allergies Active Allergy Reactions Criticality Noted Date [...] 40 tablet 1 09/20/20 25 026 Active aspirin (Ecotrin) 325 MG EC tablet Take 1 tablet by mouth daily. 30 tablet 08/30/20 25 025 isosource 1.5 Sony/mL liquidIndications: Squamous cell carcinoma of mandible 2 Cans by Nasogastric route 4 times a day. Equivalent Substitutions Allowed? No 1 each 2 09/23/20 25 025 Active Problems Problem Noted Date Diagnosed Date [...] 10:30 AM EST Office Visit [facility] light armored reconnaissance officer Faculty Clinic [address] [place] [address] [address] [place] [address] Alvaro Adrian DMD, MD Squamous cell carcinoma of mandible (Primary Dx) 10/08/2025 9:15 AM EST Office Visit [facility] Plastic & Reconstructive Surgery [address] [place] [phone] Marvin Santana MD Postoperative examination (Primary Dx) 10/08/2025 Travel 10/02/2025 Travel 09/27/[address] [facility] Plastic & Reconstructive Surgery [address] [place], [place] [phone] Marvin Santana MD HCN Clinical Concern/Question 09/23/2025 Refill [facility] [address] [place] [address] Isha Walters RN Squamous cell carcinoma of mandible 09/20/[address] [facility] Plastic & Reconstructive Surgery [address] [place] [phone] Corrine Barriga, ROENTGENOLOGIST 09/20/[address] [facility] Plastic & Reconstructive Surgery [address] [place] [phone] Marvin Santana MD 09/17/2025 1:00 PM EST Office Visit [facility] light armored reconnaissance officer Faculty [facility] [address] [place] [address] [address] [place] [address] Alvaro Adrian DMD, MD Squamous cell carcinoma of mandible (Primary Dx) 09/17/2025 9:15 AM EST Office Visit 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) 09/03/2025 Travel 09/02/2025 Telephone [facility] Res[facility] 800 [facility], [address] [place] [phone] Isha Walters, RENATO 09/02/2025 Orders Only [facility] [address] [phone] Isha Walters, RENATO Squamous cell carcinoma of mandible (Primary Dx); Floor of mouth squamous cell carcinoma 09/02/2025 Travel 08/28/2025 4:34 PM EDT Anesthesia Event [facility] OPERATING ROOM [address] [place] [phone] Twin Hernandez MD Benson, Cathryn M, ROENTGENOLOGIST 08/28/2025 2:30 PM EDT - 08/28/2025 3:45 PM EDT Surgery [facility] [address] [place] [phone] Marvin Santana MD Split thickness skin graft to right lower extremity flap donor site [74345 (CPT ) +1 more] 08/21/2025 Abstract [facility] Respiratory [address] [place] [phone] Isha Walters, RENATO 08/19/2025 8:17 AM EDT Anesthesia Event [facility] [address] [place] [phone] Kenneth Benavides CRNA Ellis, Teresa W, ROENTGENOLOGIST 08/19/2025 7:45 AM EDT - 08/19/2025 11:20 PM EDT Surgery [facility] [address] [place] [phone] Marvin Santana MD Left mandibular reconstruction with right free fibula, complex closure of oral wound, [83492 (CPT ) +4 more] 08/19/2025 5:29 AM EDT - 08/30/2025 3:53 PM EDT Hospital Encounter [facility] Inpatient [address] [place] [address] Marvin Santana MD McMaine, Travis B, DMD, MD Squamous cell carcinoma of mandible (Primary Dx); Floor of mouth squamous cell carcinoma; Wound of right lower extremity, initial encounter; Hypertension, unspecified type Discharge Disposition: Home or Self Care 08/19/2025 Travel 08/15/2025 Travel 08/15/2025 Telephone [facility] [address] [facility], [address]nd [place] [address] Hafsa Moore RN 08/13/2025 Travel 08/09/2025 1:45 PM EDT Office Visit [facility] Res[facility] [address] [facility], [address] [place] [address] Alvaro Adrian DMD, MD Dental abscess (Primary Dx) 08/09/2025 Travel 08/07/2025 2:30 PM EDT Pre-[facility] Testing [facility] [address] [place] [address] 08/07/2025 Travel 07/30/2025 8:45 AM EDT Office Visit 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 No 08/21/2025 [facility] [employer] Answer Date Recorded In the past [...] Plastic & Reconstructive Surgery [address] [place] [address] Marvin Santana MD [address] [phone] Health Maintenance Due Date Last Done Comments Dental Oral Exam 1972 Dental Prophylaxis 1972 Dental X-Ray: Bitewings 1972 Dental X-Ray: Full Mouth 1972 [facility]-Depression Screening 1972 [facility]-HIV Screening 1972 [facility]-Hepatitis C Screening 1972 [facility]-/Child/Adol SDOH Screenings 1972 [facility]-DTaP,Tdap,and Td Vaccines (1 - Tdap) 1991 [facility]-Hepatitis B Vaccines (1 of 3 - 19+ 3-dose series) 1991 [facility]-Pneumococcal Vaccine: 50+ Years (1 of 2 - PCV) 1991 [facility]-Zoster Vaccines (1 of 2) 1991 CT Colonography 2017 Colonoscopy 2017 FIT-DNA 2017 FIT 2017 FOBT 2017 Sigmoidoscopy 2017 [facility]-Colorectal Cancer Screening 2017 [id number] Vaccine (3 - Pfizer risk series) 09/11/2021 08/14/2021, 07/17/2021 Lung Cancer Screening Shared Decision Making 2022 [facility]-Influenza Vaccine (#1) 2025 [facility]- SDOH Screenings 02/19/2026 [facility]-Adult SDOH Screenings 02/19/2026 08/21/2025 [facility]-Lung Cancer Screening 07/25/2026 07/25/2025, [facility]-Obesity Intervention Completed 025, 10/08/2025, 09/17/2025, Additional history exists HPV Vaccines (No Doses Required) Completed [facility]-HIB Vaccines Aged Out No longer e [...] this topic Medical Devices Implanted Type Area Product Safety Expert Device Identifier Shelf Expiration Date Model / Serial / Lot Plate Ti Pspc Matrixmand Ang Recon 7x23h/2mm Lt - Sna - [id number] Implanted:Qty: 1 on 08/19/2025 by Marvin Santana MD at [facility] Plate [employer] [id number] 08/19/2026 [id number] / NA / Screw 2.0mm Matrixmandible Lock St 8mm - Sn/A - [id number] Implanted:Qty: 13 on 08/19/2025 by Marvin Santana MD at [facility] Screw [employer] [id number] 08/19/2026.503.608 .01 / N/A / Screw 2.0mm Matrixmandible Lock St 10mm - Sn/A - [id number] Implanted:Qty: 1 on 08/19/2025 by Marvin Santana MD at [facility] [employer] [id number] 08/19/2026.503.610 .01 / N/A / Screw 2.0mm Matrixmandible Lock St 14mm - Sn/A - [id number] Implanted:Qty: 3 on 08/19/2025 by Marvin Santana MD at [facility]08/19/2026 04.503.614 .01 / N/A / Screw 2.0mm Matrixmandible Lock St 12mm - [id number] Implanted:Qty: 1 on 08/19/2025 by Marvin Santana MD at [facility]503.612 .01 / / Procedures Procedure Name Priority [...] EDT XR ABDOMEN 1 VIEW Routine 08/19/2025 8: 37 PM EDT MULTI DRUG RESISTANCE TEST Routine [...] ANESTHESIA PLACEHOLDER Routine 08/19/2025 8:27 AM EDT RI AN ELECTIVE ENDOTRACHEAL AIRWAY Routine 08/19/2025 8:27 AM EDT CREATION, TRACHEOSTOMY 08/19/2025 8:05 AM EDT 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 Needs Microinstruments, micrscope available, doppler, handheld ligasure, bovie, bipolar, tournique, tps drill and sawt RI PART REMOVAL TONGUE,<1/2 08/19/2025 8:05 AM EDT 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 Needs Microinstruments, micrscope available, doppler, handheld ligasure, bovie, bipolar, tournique, tps drill and sawt RI REMOVAL NODES, NECK,CERV CMPLT 08/19/2025 8:05 AM EDT 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 Needs Microinstruments, micrscope available, doppler, handheld ligasure, bovie, bipolar, tournique, tps drill and sawt RI REMV MALIG JAW BONE RADICAL 08/19/2025 8:05 AM EDT 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 Needs Microinstruments, micrscope available, doppler, handheld ligasure, bovie, bipolar, tournique, tps drill and sawt RI RECONSTR MANDIBLE,BONE PLATE 08/19/2025 8:05 AM EDT 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 Needs Microinstruments, micrscope available, doppler, handheld ligasure, bovie, bipolar, tournique, tps drill and sawt RI LAYR CLOS WND REST BODY 12.6-20 CM 08/19/2025 8:05 AM EDT 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 Needs Microinstruments, micrscope available, doppler, handheld ligasure, bovie, bipolar, tournique, tps drill and sawt RI REPR,FACE,GENITAL,ARGUETA ND,FT+5 CMCM/< 08/19/2025 8:05 AM EDT 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 Needs Microinstruments, micrscope available, doppler, handheld ligasure, bovie, bipolar, tournique, tps drill and sawt RI RECMPL WND HEAD,FAC,HAND 2.6-7.5 CM 08/19/2025 8:05 AM EDT 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 Needs Microinstruments, micrscope available, doppler, handheld ligasure, bovie, bipolar, tournique, tps drill and sawt RI BONE-SKIN GRAFT, MICROVASCULAR 08/19/2025 8:05 AM EDT 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 Needs Microinstruments, micrscope available, doppler, handheld ligasure, bovie, bipolar, tournique, tps drill and sawt TYPE AND SCREEN Routine 08/19/2025 7:[address] CHEST W IV CONTRAST Routine 07/25/2025 10:20 AM EDT Floor of mouth squamous cell carcinoma Gastroesophageal reflux disease without esophagitis from Last 3 Months or Most Recently Relevant to Health Maintenance Results * (ABNORMAL) CBC W/O Differential (08/30/2025 3:00 AM EDT) Only the most recent of9 resultswithin the time period is included. WBC Count 10.23 3.70 - 10.30 10*3/uL LAB HEMATOLOGY METHOD 08/30/2025 3:18 AM EDT [facility] RBC Count 3.18(L) 4.60 - 6.10 10*6/uL LAB HEMATOLOGY METHOD 08/30/2025 3:18 AM EDT [facility] HGB 9.9(L) 13.7 - 17.5 g/dL LAB HEMATOLOGY METHOD 08/30/2025 3:18 AM EDT [facility] HCT 30.3(L) 40.0 - 51.0 % LAB HEMATOLOGY METHOD 08/30/2025 3:18 AM EDT [facility] Platelet Count 550(H) 155 - 369 10*3/uL LAB HEMATOLOGY METHOD 08/30/2025 3:18 AM EDT [facility] MCV 95 79 - 98 fL LAB HEMATOLOGY METHOD 08/30/2025 3:18 AM EDT [facility] MCH 31.1 26.0 - 32.0 pg LAB HEMATOLOGY METHOD 08/30/2025 3:18 AM EDT [facility] MCHC 32.7 30.7 - 35.5 g/dL LAB HEMATOLOGY METHOD 08/30/2025 3:18 AM EDT [facility] RDW 13.2 11.5 - 14.5 % LAB HEMATOLOGY METHOD 08/30/2025 3:18 AM EDT [facility] MPV 8.7(L) 8.8 - 12.5 fL LAB HEMATOLOGY METHOD 08/30/2025 3:18 AM EDT [facility] nRBC 0.0 <=0.0 per 100 WBCs LAB HEMATOLOGY METHOD 08/30/2025 3:18 AM EDT [facility] Blood Venous blood specimen / Unknown Venipuncture / Unknown 08/30/2025 3:00 AM EDT 08/30/2025 3:11 AM EDT us Sin Min M Hayder [place] MD LAB BLOOD ORDERABLES Melida l Result [facility] [address] [place] [address] * Phosphorus, Plasma (08/30/2025 3:00 AM EDT) Only the most recent of9 resultswithin the time period is included. Phosphorus, Plasma 4.2 2.5 - 4.5 mg/dL 08/30/2025 3:39 AM EDT [facility] Blood Venous blood specimen / Unknown Venipuncture / Unknown 08/30/2025 3:00 AM EDT 08/30/2025 3:11 AM EDT us Sin Min Lynn Singletary DMD, MD LAB BLOOD ORDERABLES Melida l Result Performing Organization Address City/[facility] Co de Phone Number [facility] [address] [place] [address] * Magnesium, Plasma (08/30/2025 3:00 AM EDT) Only the most recent of9 resultswithin the time period is included. Magnesium, Plasma 2.4 1.9 - 2.4 mg/dL 08/30/2025 3:39 AM EDT [facility] Blood Venous blood specimen / Unknown Venipuncture / Unknown 08/30/2025 3:00 AM EDT 08/30/2025 3:11 AM EDT us Sin Min Lynn Singletary DMD, MD LAB BLOOD ORDERABLES Melida l Result Performing Organization Address [facility] de Phone Number [facility] [address] [place] [address] * (ABNORMAL) Basic Metabolic Panel, Plasma (08/30/2025 3:00 AM EDT) Only the most recent of9 resultswithin the time period is included. Glucose, Plasma 113(H) 74 - 99 mg/dL 08/30/2025 3:39 AM EDT [facility] BUN, Plasma 20 7 - 21 mg/dL 08/30/2025 3:39 AM EDT [facility] Creatinine, Plasma 0.68(L) 0.70 - 1.20 mg/dL 08/30/2025 3:39 AM EDT [facility] BUN/Creatinine Ratio 29 08/30/2025 3:39 AM EDT [facility] Sodium, Plasma 137 136 - 145 mmol/L 08/30/2025 3:39 AM EDT [facility] Potassium, Plasma 4.4 3.6 - 4.9 mmol/L 08/30/2025 3:39 AM EDT [facility] Chloride, Plasma 100 97 - 107 mmol/L 08/30/2025 3:39 AM EDT [facility] CO2, Plasma 28 22 - 29 mmol/L 08/30/2025 3:39 AM EDT [facility] Anion Gap 9 6 - 16 mmol/L 08/30/2025 3:39 AM EDT [facility] Total Calcium, Plasma 9.2 8.9 - 10.2 mg/dL 08/30/2025 3:39 AM EDT [facility] eGFRcr 111.8 mL/min/1.7 3m*2 08/30/2025 3:39 AM EDT [facility] Comment:Reported eGFRcr in m L/min/1.73m2 is based the CKD-EPI 2020 equation that does not use a race coefficient. Blood Venous blood specimen / Unknown Venipuncture / Unknown 08/30/2025 3:00 AM EDT 08/30/2025 3:11 AM EDT us Sin Min M Hayder [place] MD LAB BLOOD ORDERABLES Melida l Result [facility] [address] [place] [address] * (ABNORMAL) POCT glucose meter (08/28/2025 5:41 [...] Comment 08/28/2025 5:42 AM EDT [facility] Group Controller ID Lavonne Mccauley 08/28/2025 5:42 AM EDT [facility] Device ID [id number] 08/28/2025 5:42 AM EDT [facility] Specimen Type POC Capillary 08/28/2025 5:42 AM EDT [facility] Blood Capillary blood specimen / Unknown 08/28/2025 5:41 AM EDT 08/28/2025 5:42 AM EDT Alvaro Adrian DMD, MD LAB POINT OF CA RE TEST DOCKED DEVICE UNSOLICITED RESULTS Final Result Performing Organization Address City/[facility] Co de Phone Number [facility] [address] [place] [address] * Type and Screen (08/28/2025 3:54 AM [...] ORD ERABLES Final Result Performing Organization Address [facility] de Phone Number BLOOD BANK [address] [place] [address] * Wound VAC Dressing Changes (Non-Instillation) (08/26/2025 [...] of the abdomen. COMPARISON: None. FINDINGS: Limited eiuci-rq-[id number] abdominal radiograph for the purpose of locating tube position. The tip of the feeding tube is within the proximal stomach. Procedure Note Patricio Trevino MD - 08/19/2025 CLINICAL INDICATION: DHT placement TECHNIQUE: Supine radiograph of the abdomen. COMPARISON: None. FINDINGS: Limited ynisr-fl-azeh abdominal radiograph for the purpose of locatingtube [...] Detected Not Detected 08/21/2025 10:33 AM EDT [facility] Swab (Axilla and Groin) Non-blood Collection / Unknown 08/19/2025 8:19 PM EDT 08/19/2025 8:30 PM EDT Narrative [facility] - 08/21/2025 10:33 AM EDT This PCR assay was developed and its performance characteristics determined by [facility] as appropriate for clinical purposes. This assay has not been cleared or approved by the FDA, but is performed in a CLIA regulated laboratory that is qualified to perform high-complexity testing. Marvin Santana MD LAB MICROBIOLOGY - GENER AL ORDERABLES Final Result Performing Organization Address [facility] Co de Phone Number [facility] [address] [place] [address] * Multi Drug Resistance Test (08/19/2025 8:19 PM EDT) Culture No growth at day 1 08/21/2025 7:33 AM EDT [facility] Swab (Nares and Nini Rectal) Non-blood Collection / Unknown 08/19/2025 8:19 PM EDT 08/19/2025 8:30 PM EDT Narrative [facility] - 08/21/2025 7:33 AM EDT This test was developed and its performance characteristics determined by the [facility]. Although the media is FDA-approved, it is not FDA-approved for all specimen types submitted. The FDA has determined that such clearance or approval is not necessary. This test is used for surveillance purposes. It should not be regarded as investigational or for research. The [facility] is certified under the Clinical Laboratory Improvement Amendments of 1988 (CLIA-88) as qualified to perform high complexity clinical laboratory testing. Marvin Santana MD LAB MICROBIOLOGY - GENER AL ORDERABLES Final Result Performing Organization Address [facility] Co de Phone Number [facility] [address] [place] [address] * (ABNORMAL) Blood gas, arterial (08/19/2025 12:23 PM EDT) Only the most recent of2 resultswithin the time period is included. pH, Arterial 7.38 7.35 - 7.45 LAB HEMATOLOGY METHOD 08/19/2025 12:40 PM EDT [facility] pCO2, Arterial 42 32 - 45 mmHg LAB HEMATOLOGY METHOD 08/19/2025 12:40 PM EDT [facility] pO2, Arterial 107 83 - 108 mmHg LAB HEMATOLOGY METHOD 08/19/2025 12:40 PM EDT [facility] SO2, Measured, Arterial 99(H) 94 - 98 % LAB HEMATOLOGY METHOD 08/19/2025 12:40 PM EDT [facility] Base Excess, Arterial -0.8 -2.0 - 3.0 mmol/L LAB HEMATOLOGY METHOD 08/19/2025 12:40 PM EDT [facility] Bicarbonate, Calculated, Arterial 24 22 - 26 mmol/L LAB HEMATOLOGY METHOD 08/19/2025 12:40 PM EDT [facility] Hematocrit, Whole Blood 38.9(L) 40.0 - 51.0 % LAB HEMATOLOGY METHOD 08/19/2025 12:40 PM EDT [facility] Sodium, Whole Blood 138 136 - 145 mmol/L LAB HEMATOLOGY METHOD 08/19/2025 12:40 PM EDT [facility] Potassium, Whole Blood 3.7 3.6 - 4.9 mmol/L LAB HEMATOLOGY METHOD 08/19/2025 12:40 PM EDT [facility] Chloride, Whole Blood 105 97 - 107 mmol/L LAB HEMATOLOGY METHOD 08/19/2025 12:40 PM EDT [facility] Glucose, Whole Blood 146(H) 74 - 99 mg/dL LAB HEMATOLOGY METHOD 08/19/2025 12:40 PM EDT [facility] Ionized Calcium, Whole Blood 4.5(L) 4.6 - 5.1 mg/dL LAB HEMATOLOGY METHOD 08/19/2025 12:40 PM EDT [facility] Lactate, Arterial, Whole Blood 1.0 0.5 - 1.6 mmol/L LAB HEMATOLOGY METHOD 08/19/2025 12:40 PM EDT [facility] Blood Arterial blood specimen / Unknown 08/19/2025 12:23 PM EDT 08/19/2025 12:33 PM EDT 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 Case Report Surgical Pathology Case: [id number] Authorizing Provider: Marvin Santana MD Collected: 08/19/2025 0917 Ordering Location: [facility] OPERATING ROOM Received: 08/19/2025 7820 Pathologist: Tiomthy Chacon MD Intraop: Nabila Hendrickson MD Specimens: [...] fresh for permanent 08/28/2025 11:21 AM EDT [facility] Addendum This addendum is to document the provided clinical history. There is no change in the final diagnosis. Floor of mouth squamous cell carcinoma 08/28/2025 11:21 AM EDT [facility] Addendum electronically signed by Ellen Wilson [...] FOR CARCINOMA (0/20) 08/28/2025 11:[address] [facility] at 1949 EDT Comment:This is an appended [...] in part L. 08/28/2025 11:[address] [facility] Comment:This is an appended report. These results [...] pN Category: pN1 08/28/2025 11:21 AM EDT [facility] Clinical Information No Dx Found. 08/28/2025 11:21 AM EDT [facility] Comment:This is an appended report. These [...] TUMOR IDENTIFIED. NO 08/28/2025 11:21 AM EDT [facility] Comment:Corrected result: Pr eviously reported as [...] a robin-white, papillary, irregularly-shap ed 2.4 cm (anterior-community engagement leader ior) by 1.9 (superior-inferi or) lesion that appears to abut the posterior and inferior margins. Gross photographs both pre ink and inked are provided. Ink code: Blue-anterior Red-superior Green-inferior Black-posterior [place]-medial Uninked (with lesion)-lateral Specimen is serially sectioned [...] of left brandyn mandibulectomy measuring 10.0 cm (anterior-community engagement leader ior) x 4.6 cm (left-right) x 3.5 cm (superior-inferi or) with an attached ramus measuring 6.2 cm (superior-inferi or) x 0.6 cm (left-right) x 1.3 cm (anterior-community engagement leader ior). The specimen is oriented by a short-short stitch on the lateral soft tissue, a long-short stitch on the anterior soft tissue and a long-long stitch on the medial soft tissue. The attached medial soft tissue measures 3.4 (left-right) by 8.4 (anterior-community engagement leader ior) by 2.0 (superior-inferi or), and [...] and the gingiva there is a 3.4 (anterior-community engagement leader ior by 1.8 (superior-inferi or by [...] no other interosseous lesions are grossly noted Medical Director sections are submitted as follows: L1: Anterior mucosal and soft tissue margin L2: Lateral mucosal and soft tissue margin L3: Medial mucosal and soft tissue margin L4: Posterior mucosal and soft tissue margin L5: Inferior soft tissue margin L6: Mass 2 L7-L9: Mass 1, deepest bone invasion in L9 L10: Mandibular interosseous lesion L11: Softened bone adjacent to lesion L12: Medical Director sample of lesion Cold Time: 0 Marvel [...] Marvel Herrera MD 08/28/2025 11:21 AM EDT [facility] Comment:This is an appended report. These results have been appended to a previously preliminary verified report. Note: A resident was involved in the service. I attest I examined the relevant preparations for the specimens and confirmed the diagnosis or interpretation. 08/28/2025 11:21 AM EDT [facility] Comment:This is an appended report. These [...] ORDERABLE S Edited Result - Final [facility] [address] [place] [address] * PB ANESTHESIA NON-TIMED PROCEDURE PLACEHOLDER (08/19/2025 [...] well with no complications. Staffing Performed: ARLENE DETECTIVE PRECINCT: Kenneth Benavides CRNA Caden Alas MD ANESTHESIA ORDERABLES Final Re sult * RI AN ELECTIVE ENDOTRACHEAL AIRWAY, PB ANESTHESIA PLACEHOLDER (08/19/2025 8:27 AM EDT) Narrative Kenneth Benavides CRNA - 08/19/2025 8:27 AM EDT Kenneth Benavides CRNA 08/19/2025 8:53 AM Airway Date/Time: 08/19/2025 8:27 AM Reason: elective Airway not difficult General Information and Staff Patient location during procedure: OR DETECTIVE PRECINCT: Kenneth Benavides CRNA Performed: DETECTIVE PRECINCT Patient Condition Indications for airway management: anesthesia [...] Additional Comments Atraumatic. No change to dentition. Caden Alas MD ANESTHESIA ORDERABLES Final Re sult * CT Chest w IV Contrast (07/25/2025 [...] Final Resu lt from Last 3 Months or Most Recently Relevant to Health Maintenance Insurance [facility] Advance Directives Documents on File Type Date Recorded Patient Medical Director Expl anation Power of Morning News Producer 08/31/2025 1:32 PM Advance Directives and Sonido robison Will 08/31/2025 1:32 PM * Full Code (Latest Code Status on File) Date Activated Date Inactivated Comments 08/19/2025 7:28 AM 08/30/2025 5:53 PM Question Answer Comments I have reviewed the capacity from the link above and, if needed, have updated to appropriate status: Yes Care Teams Dental Laboratory Technician Relationship Specialty Start Date End Date Christina Arteaga APRN [address] [place] [id number] PCP - General 06/20/25 Maxwell White, CLEM [facility] [address] [place] [address] Referring Physician 06/24/25
--- OUTSIDE RECORDS SUMMARY | 2025-10-29 09:02 | XMS_ITS | Encounter Summary ---
Author Organization Healthcare Address [address] [place] [address] Care Team Providers Care Meeting Planner Name Role Phone Christina Arteaga APRN Primary Care Provider [phone] Maxwell White DMD Unavailable [phone] Encounter Details Date Type Department Care Team (Late st Contact Info) Description 09/02/2025 Telephone [facility] [address] [place] [id number] Isha Walters, RENATO None None Social History [...] in a [facility] (including now)? No 08/21/2025 [facility] Utilities Answer Date Recorded In [...] [facility] [address] [place] [address] Marvin Santana MD [address] [id number] documented as of this encounter Visit Diagnoses Not on filedocumented in this encounter Additional Health Concerns Assessment Noted Time A fall risk assessment has been complete d for the patient 08/09/2025 1:39 PM EDT A Body Mass Index follow-up plan has been documented for the patient 08/30/2025 1:58 PM EDT documented as of this encounter Care Teams Meeting Planner Relationship Specialty Start Date End Date Christina Arteaga APRN [address] [place] [id number] PCP - General 06/20/25 Maxwell White DMD [address] [place] [address] Referring Physician 06/24/25 documented as of this encounter
[2025-10-29 09:38] LABS: Alanine Aminotransferase 52 U/L (12-78); Albumin Level 4.7 g/dl (3.5-5.0); Albumin/Globulin Ratio 1.4 (1.1-1.8); Alkaline Phosphatase 58 U/L (38-126); Anion Gap 11.5 mEq/L (5-15); Aspartate Amino Transferase 41 U/L (17-59); Bilirubin,Total 0.3 mg/dl (0.2-1.3); Blood Urea Nitrogen 28 mg/dl (9-20); Calcium 9.5 mg/dl (8.4-10.2); Carbon Dioxide 28 mmol/L (22.0-30.0); Chloride 101 mmol/L (98-107); Creatinine Clearance Estimated 152 mL/min (50-200); Creatinine,Serum 0.70 mg/dl (0.66-1.25); Estimated Glomerular Filt Rate 118 ml/min (>60); GFR (African American) 143 ML/MIN (>60); Globulin 3.3 g/dL (1.3-3.2); Glucose 89 mg/dl (74-100); Potassium 4.5 mmoL/L (3.5-5.1); Sodium 136 mmol/L (136-145); Total Protein,Serum 8.0 g/dl (6.3-8.2)
[2025-10-29 09:39] LABS: Hematocrit 41.5 % (42.0-52.0); Hemoglobin 13.4 g/dL (14.1-18.0); Immature Granulocytes % 0.4 %; Mean Corpuscular HGB Conc 32.3 g/dL (31.8-35.4); Mean Corpuscular Hemoglobin 30.4 pg (27.0-31.2); Mean Corpuscular Volume 94.1 fl (80-94); Nucleated Red Blood Cells % 0 %; Platelet Count 227 K/mm3 (142-424); Red Blood Count 4.41 M/mm3 (4.60-6.20); Red Cell Distribution Width-SD 41.1 fL; White Blood Count 9.0 K/mm3 (4.8-10.8)
[2025-10-29] MEDS: POTASSIUM CHLORIDE IV ×2 (10:21→12:53)
[2025-10-29] MEDS: MAGNESIUM SULFATE IV ×2 (10:21→12:53)
[2025-10-29] MEDS: [UNRECOGNIZED DRUG - OTHER] IV ×2 (10:21→12:53)
[2025-10-29] MEDS: DEXAMETHASONE 4MG TABLET 12 MG PO (11:35)
[2025-10-29] MEDS: APREPITANT 125MG/80MG TRIFOLD PACK 1 PACKET PO (11:36)
[2025-10-29] MEDS: ONDANSETRON 4MG ODT 16 MG SL (11:36)
--- OUTSIDE RECORDS SUMMARY | 2025-10-30 19:00 | XMS_ITS | Clinical Summary ---
Author Organization Unknown Care Team Providers Care Control Panel Tester Name Role Phone MARA MAI, WIL Unavailable Unavailable PARTH RN, TESS Unavailable Unavailable JH METZGERN, UADELIA Unavailable Unav ailable RENAN PT, JOSR Unavailable Unavailable [facility], BRAD Unavailable Unavailable KEL OT, IVAN Unavailable Unavailable [facility]INY [facility], DAY Unavailable Unavailable Payers Payer Name Policy Type Policy Number Effective Date Expira tion Date [employer].PDGM.C.AUTH ADMISSIONS.CODEREQUEST.OTHER S.AUTH NA Problems Condition Name Condition Details Condition Category Status Onset Date Resolution Date Last Treatment Date Treating Clinician Comments OTH COMPLICATION S OF PROCEDURES, NEC, SUBS Active 2024-11 00:00: 00 AFTERCARE FOLLOWING SURGERY FOR NEOPLASM Active 2024-11 00:00: 00 MALIGNANT NEOPLASM OF FLOOR OF MOUTH, UNSPECIFIED Active 2024-11 00:00: 00 MALIGNANT NEOPLASM OF MANDIBLE Active 2024-11 00:00: 00 ATHSCL HEART DISEASE OF [place] CORONARY ARTERY W/O ANG PCTRS Active 2024-11 00:00: 00 HYPERLIPIDEM IA, UNSPECIFIED Active 2024-11 00:00: 00 HYPOTHYROIDI SM, UNSPECIFIED Active 2024-11 00:00: 00 GASTRO-ESOPH AGEAL REFLUX DISEASE WITHOUT ESOPHAGITIS Active 2024-11 00:00: 00 ESSENTIAL (PRIMARY) HYPERTENSION Active 2024-11 00:00: 00 NICOTINE DEPENDENCE, CIGARETTES, UNCOMPLICATE D Active 2024-11 00:00: 00 DYSPHAGIA, UNSPECIFIED Active 2024-11 00:00: 00 OTHER CONSTIPATION Active 2024-11 00:00: 00 OTHER RETENTION OF URINE Active 2024-11 00:00: 00 ENCOUNTER FOR ATTENTION TO TRACHEOSTOMY Active 2024-11 00:00: 00 ACQUIRED ABSENCE OF OTHER ORGANS Active 2024-11 00:00: 00 PRESENCE OF CORONARY ANGIOPLASTY IMPLANT AND GRAFT Active 2024-11 00:00: 00 Allergies, Adverse Reactions, Alerts Allergy Name Allergy Type Status Severity Reaction(s) Onset Date Inactive Date Treating Clinician Comments PCN (PENICILLIN V POTASSIUM) Propensity to adverse reactions Active 2024-11 14:51: 51 SHELLFISH Propensity to adverse reactions Active 2024-11 14:51: 59 Medications Ordered Medication Name Filled Medication Name Start Date Stop Date Current Medication? Ordering Clinician Indication Dosage Frequency Signature (SIG) Comments Components ramipril 2.5 mg capsule 2024-11 0 00:00: 00 Yes [id number] HTN 2.5 capsule DAILY 2.5 capsule DAILY (route: oral) Med Classific ation: Cardiovas cular Therapy Agents doxycycline monohydrate 50 mg capsule 2024-11 00:00: 00 09-02 00:00 :00 No [id number] Per instruc tions Per instructio ns (route: oral) Med Classific ation: Anti-Infe ctive Agents aspirin 325 mg tablet 2024-11 00:00: 00 Yes [id number] SUPP 1 tablet DAILY 1 tablet DAILY (route: oral) Med Classific ation: Analgesic , Anti-infl ammatory or Antipyret ic atorvastati n 20 mg tablet 2024-11 00:00: 00 Yes [id number] CHOLESTEROL 20 mg DAILY 20 mg DAILY (route: oral) Med Classific ation: Cardiovas cular Therapy Agents cranberry extract 200 mg capsule 2024-11 00:00: 00 Yes [id number] SUPP 1 capsule DAILY 1 capsule DAILY (route: oral) Med Classific ation: Alternati ve Therapy gabapentin 300 mg capsule 2024-11 00:00: 00 09-24 23:59 :00 No [id number] PAIN 300 mg 3 TIMES DAILY 300 mg 3 TIMES DAILY (route: oral) Med Classific ation: Central Nervous System Agents Isosource 1.5 Sony 0.07 gram-1.5 kcal/mL liquid for tube feed 2024-11 00:00: 00 Yes [id number] SUPP Per instruc tions EVERY 3 HOURS Per instructio ns EVERY 3 HOURS (route: feeding tube) Med Classific ation: Electroly te Balance-N utritiona l Products levothyroxi ne 50 mcg capsule 2024-11 0-20 00:00: 00 Yes [id number] THYROUD 50 mcg DAILY 50 mcg DAILY (route: oral) Med Classific ation: Endocrine metoprolol succinate ER 50 mg tablet,exte nded release 24 hr 2024-11 0- 00:00: 00 09-24 23:59 :00 No [id number] HTN 50 mg DAILY 50 mg DAILY (route: oral) Med Classific ation: Cardiovas cular Therapy Agents Miralax 17 gram oral powder packet 2024-11 0- 00:00: 00 Yes [id number] BOWELS 1 packet DAILY 1 packet DAILY (route: oral) Med Classific ation: Gastroint estinal Therapy Agents ondansetron 4 mg disintegrat ing tablet 2024-11 0- 00:00: 00 Yes [id number] NAUSEA 4 mg EVERY 8 HOURS 4 mg EVERY 8 HOURS (route: oral) Med Classific ation: Gastroint estinal Therapy Agents oxycodone 5 mg capsule 2024-11 0- 00:00: 00 Yes [id number] PAIN 2 capsule EVERY 6 HOURS 2 capsule EVERY 6 HOURS (route: oral) Med Classific ation: Analgesic , Anti-infl ammatory or Antipyret ic Senna Lax 8.6 mg tablet 2024-11 0- 00:00: 00 Yes [id number] PRN CONSTIPATIO N 8.6 mg DAILY 8.6 mg DAILY (route: oral) Med Classific ation: Gastroint estinal Therapy Agents metoprolol succinate ER 25 mg tablet,exte nded release 24 hr 2024-11 1- 00:00: 00 10-14 23:59 :00 No [id number] BP 0.5 tablet 2 TIMES DAILY 0.5 tablet 2 TIMES DAILY (route: oral) Med Classific ation: Cardiovas cular Therapy Agents metoprolol succinate ER 25 mg tablet,exte nded release 24 hr 2024-11 2- 00:00: 00 Yes [id number] HTN 1 tablet BEDTIME 1 tablet BEDTIME (route: oral) Med Classific ation: Cardiovas cular Therapy Agents Compazine 10 mg tablet 2024-11 00:00: 00 Yes [id number] NAUSEA 1 tablet EVERY 6 HOURS 1 tablet EVERY 6 HOURS (route: oral) Med Classific ation: Gastroint estinal Therapy Agents dexamethaso ne 4 mg tablet 2024-11 00:00: 00 Yes [id number] INFLAMMATIO N 2 tablet DIRECTED 2 tablet DIRECTED (route: oral) Med Classific ation: Endocrine Vital Signs Vital Name Observation Time Observation Value Commen ts Temperature 2025-10-24 10:41:00.000 97.7 [degF] Temperature 2025-10-21 12:37:00.000 98.3 [degF] Temperature 2025-10-14 11:32:00.000 98.4 [degF] Temperature 2025-10-07 11:35:00.000 98.3 [degF] Temperature 2025-09-30 13:01:00.000 98.8 [degF] Temperature 2025-09-25 11:36:00.000 97.2 [degF] Temperature 2025-09-24 12:10:00.000 98.2 [degF] Temperature 2025-09-19 15:41:00.000 97.6 [degF] Temperature 2025-09-16 16:10:00.000 97.8 [degF] Temperature 2025-09-13 13:31:00.000 97.8 [degF] Temperature 2025-09-12 14:23:00.000 98.3 [degF] Temperature 2025-09-09 14:59:00.000 97.9 [degF] Temperature 2025-09-04 15:33:00.000 98.1 [degF] Temperature 2025-09-02 14:42:00.000 98.2 [degF] BMI (%) 2025-09-09 14:59:00.000 25 kg/m2 BMI (%) 2025-09-02 14:42:00.000 27 kg/m2 Height 2025-09-09 14:59:00.000 71 [in_us] Height 2025-09-02 14:42:00.000 71 [in_us] Pulse 2025-10-24 10:41:00.000 72 /min Pulse 2025-10-21 12:37:00.000 69 /min Pulse 2025-10-14 11:32:00.000 80 /min Pulse 2025-10-07 11:35:00.000 63 /min Pulse 2025-09-30 13:01:00.000 67 /min Pulse 2025-09-25 11:36:00.000 68 /min Pulse 2025-09-24 12:10:00.000 82 /min Pulse 2025-09-19 15:41:00.000 71 /min Pulse 2025-09-16 16:10:00.000 71 /min Pulse 2025-09-13 13:31:00.000 64 /min Pulse 2025-09-12 14:23:00.000 72 /min Pulse 2025-09-12 12:05:00.000 63 /min Pulse 2025-09-09 14:59:00.000 67 /min Pulse 2025-09-04 16:48:00.000 76 /min Pulse 2025-09-04 15:33:00.000 68 /min Pulse 2025-09-02 14:42:00.000 66 /min O2 Saturation (%) 2025-10-24 10:41:00.000 97 % O2 Saturation (%) 2025-10-21 12:37:00.000 97 % O2 Saturation (%) 2025-10-14 11:32:00.000 98 % O2 Saturation (%) 2025-10-07 11:35:00.000 97 % O2 Saturation (%) 2025-09-25 11:36:00.000 97 % O2 Saturation (%) 2025-09-24 12:10:00.000 97 % O2 Saturation (%) 2025-09-19 15:41:00.000 95 % O2 Saturation (%) 2025-09-16 16:10:00.000 95 % O2 Saturation (%) 2025-09-13 13:31:00.000 98 % O2 Saturation (%) 2025-09-12 12:05:00.000 98 % O2 Saturation (%) 2025-09-04 15:33:00.000 96 % Respirations 2025-10-24 10:41:00.000 18 /min Respirations 2025-10-21 12:37:00.000 16 /min Respirations 2025-10-14 11:32:00.000 16 /min Respirations 2025-10-07 11:35:00.000 16 /min Respirations 2025-09-30 13:01:00.000 18 /min Respirations 2025-09-25 11:36:00.000 18 /min Respirations 2025-09-24 12:10:00.000 16 /min Respirations 2025-09-19 15:41:00.000 16 /min Respirations 2025-09-16 16:10:00.000 16 /min Respirations 2025-09-13 13:31:00.000 16 /min Respirations 2025-09-12 14:23:00.000 16 /min Respirations 2025-09-12 12:05:00.000 18 /min Respirations 2025-09-09 14:59:00.000 18 /min Respirations 2025-09-04 16:48:00.000 18 /min Respirations 2025-09-04 15:33:00.000 16 /min Respirations 2025-09-02 14:42:00.000 18 /min Weight (lbs) 2025-09-09 14:59:00.000 186 [lb_av] Weight (lbs) 2025-09-02 14:42:00.000 199 [lb_av] Systolic Blood Pressure 2025-10-24 10:41:00.000 120 mm [Hg] Systolic Blood Pressure 2025-10-21 12:37:00.000 104 mm [Hg] Systolic Blood Pressure 2025-10-14 11:32:00.000 113 mm [Hg] Systolic Blood Pressure 2025-10-07 11:35:00.000 108 mm [Hg] Systolic Blood Pressure 2025-09-30 13:01:00.000 135 mm [Hg] Systolic Blood Pressure 2025-09-25 11:36:00.000 96 mm[ Hg] Systolic Blood Pressure 2025-09-24 12:10:00.000 94 mm[ Hg] Systolic Blood Pressure 2025-09-19 15:41:00.000 100 mm [Hg] Systolic Blood Pressure 2025-09-16 16:10:00.000 102 mm [Hg] Systolic Blood Pressure 2025-09-13 13:31:00.000 110 mm [Hg] Systolic Blood Pressure 2025-09-12 14:23:00.000 114 mm [Hg] Systolic Blood Pressure 2025-09-12 12:05:00.000 95 mm[ Hg] Systolic Blood Pressure 2025-09-09 14:59:00.000 116 mm [Hg] Systolic Blood Pressure 2025-09-04 16:48:00.000 100 mm [Hg] Systolic Blood Pressure 2025-09-04 15:33:00.000 98 mm[ Hg] Systolic Blood Pressure 2025-09-02 14:42:00.000 92 mm[ Hg] Diastolic Blood Pressure 2025-10-24 10:41:00.000 72 mm [Hg] Diastolic Blood Pressure 2025-10-21 12:37:00.000 62 mm [Hg] Diastolic Blood Pressure 2025-10-14 11:32:00.000 64 mm [Hg] Diastolic Blood Pressure 2025-10-07 11:35:00.000 62 mm [Hg] Diastolic Blood Pressure 2025-09-30 13:01:00.000 72 mm [Hg] Diastolic Blood Pressure 2025-09-25 11:36:00.000 68 mm [Hg] Diastolic Blood Pressure 2025-09-24 12:10:00.000 60 mm [Hg] Diastolic Blood Pressure 2025-09-19 15:41:00.000 60 mm [Hg] Diastolic Blood Pressure 2025-09-16 16:10:00.000 60 mm [Hg] Diastolic Blood Pressure 2025-09-13 13:31:00.000 70 mm [Hg] Diastolic Blood Pressure 2025-09-12 14:23:00.000 76 mm [Hg] Diastolic Blood Pressure 2025-09-12 12:05:00.000 60 mm [Hg] Diastolic Blood Pressure 2025-09-09 14:59:00.000 65 mm [Hg] Diastolic Blood Pressure 2025-09-04 16:48:00.000 54 mm [Hg] Diastolic Blood Pressure 2025-09-04 15:33:00.000 58 mm [Hg] Diastolic Blood Pressure 2025-09-02 14:42:00.000 50 mm [Hg] Plan of Treatment Planned Activity Planned Date Details Comments Future Scheduled Test RN TO OBSE RVE, ASSESS, EVALUATE, AND DEVELOP AN INDIVIDUALIZED PLAN OF CARE. AGENCY MAY ACCEPT ORDERS FROM CONSULTING PHYSICIANS RN TO OBSERVE AND ASSESS, GOLF COURSE ASSISTANT/GARLAND MACHINE OPERATOR TO OBSERVE FOR RISK FOR FALLS AND INSTRUCT IN FALL PREVENTION, HOME SAFETY, MEDICATION MANAGEMENT, INFECTION PREVENTION, AND NUTRITION MANAGEMENT. RN/GOLF COURSE ASSISTANT/GARLAND MACHINE OPERATOR NURSE MAY PERFORM O2 SATURATION LEVEL ON ADMISSION AND PRN FOR RN TO ASSESS/GOLF COURSE ASSISTANT TO OBSERVE PATIENT, WITH NOTIFICATION TO THE PHYSICIAN IF SATURATION IS 90% IN THE ABSENCE OF MORE SPECIFIC PARAMETERS FROM THE PHYSICIAN. AGENCY MAY PERFORM A RESUMPTION OF CARE VISIT FOLLOWING ANY HOSPITAL ADMISSION. RN/GOLF COURSE ASSISTANT/GARLAND MACHINE OPERATOR TO MONITOR CO-MORBID CONDITIONS LISTED ON THE PLAN OF CARE AND ANY NEW CONDITIONS THAT PRESENT THEMSELVES DURING THIS EPISODE TO IDENTIFY CHANGES AND INTERVENE TO MINIMIZE COMPLICATIONS. [code = RN TO OBSERVE, ASSESS, EVALUATE, AND DEVELOP AN INDIVIDUALIZED PLAN OF CARE. AGENCY MAY ACCEPT ORDERS FROM CONSULTING PHYSICIANS RN TO OBSERVE AND ASSESS, GOLF COURSE ASSISTANT/GARLAND MACHINE OPERATOR TO OBSERVE FOR RISK FOR FALLS AND INSTRUCT IN FALL PREVENTION, HOME SAFETY, MEDICATION MANAGEMENT, INFECTION PREVENTION, AND NUTRITION MANAGEMENT. RN/GOLF COURSE ASSISTANT/GARLAND MACHINE OPERATOR NURSE MAY PERFORM O2 SATURATION LEVEL ON ADMISSION AND PRN FOR RN TO ASSESS/GOLF COURSE ASSISTANT TO OBSERVE PATIENT, WITH NOTIFICATION TO THE PHYSICIAN IF SATURATION IS 90% IN THE ABSENCE OF MORE SPECIFIC PARAMETERS FROM THE PHYSICIAN. AGENCY MAY PERFORM A RESUMPTION OF CARE VISIT FOLLOWING ANY HOSPITAL ADMISSION. RN/GOLF COURSE ASSISTANT/GARLAND MACHINE OPERATOR TO MONITOR CO-MORBID CONDITIONS LISTED ON THE PLAN OF CARE AND ANY NEW CONDITIONS THAT PRESENT THEMSELVES DURING THIS EPISODE TO IDENTIFY CHANGES AND INTERVENE TO MINIMIZE COMPLICATIONS.] Future Scheduled Test MEDICATION MANAGEMENT; RN/GOLF COURSE ASSISTANT/GARLAND MACHINE OPERATOR TO REVIEW MEDICATIONS FOR INTERACTIONS, EFFECTIVENESS OF DRUG THERAPY, AND SIGNS/SYMPTOMS OF ADVERSE REACTIONS. MAY INSTRUCT AND REINFORCE MEDICATION TEACHING RELATED TO THE USE OF MEDICATIONS, DOSAGE, FREQUENCY, PURPOSE, SIDE EFFECTS, AND TO REPORT COMPLICATIONS. [code = MEDICATION MANAGEMENT; RN/GOLF COURSE ASSISTANT/GARLAND MACHINE OPERATOR TO REVIEW MEDICATIONS FOR INTERACTIONS, EFFECTIVENESS OF DRUG THERAPY, AND SIGNS/SYMPTOMS OF ADVERSE REACTIONS. MAY INSTRUCT AND REINFORCE MEDICATION TEACHING RELATED TO THE USE OF MEDICATIONS, DOSAGE, FREQUENCY, PURPOSE, SIDE EFFECTS, AND TO REPORT COMPLICATIONS.] Future Scheduled Test RISK FOR H OSPITALIZATION; RN TO ASSESS/TEACH, GARLAND MACHINE OPERATOR/GOLF COURSE ASSISTANT TO OBSERVE/TEACH PATIENT/CAREGIVER ON RISK FOR HOSPITALIZATION/EMERGENCY ROOM VISITS, TEACH SIGNS AND SYMPTOMS THAT PUT PATIENT AT RISK, WHEN TO NOTIFY NURSE/PHYSICIAN OF COMPLICATIONS/DECLINE, AND WHEN TO CALL 911. [code = RISK FOR HOSPITALIZATION; RN TO ASSESS/TEACH, GARLAND MACHINE OPERATOR/GOLF COURSE ASSISTANT TO OBSERVE/TEACH PATIENT/CAREGIVER ON RISK FOR HOSPITALIZATION/EMERGENCY ROOM VISITS, TEACH SIGNS AND SYMPTOMS THAT PUT PATIENT AT RISK, WHEN TO NOTIFY NURSE/PHYSICIAN OF COMPLICATIONS/DECLINE, AND WHEN TO CALL 911.] Future Scheduled Test RN/GOLF COURSE ASSISTANT/GARLAND MACHINE OPERATOR TO PERFORM/TEACH INCISION CARE TO AREA: IRRIGATE/CLEANSE WITH SOAP AND WATER SUTURE SITE TO NECK AND TRACH SITE DAILY AND PRN IF SOILED, MAY COVER TRACH SITE WITH DSD, WOUND VAC AND SKIN GRAFT SITE TO REMAIN COVERED UNTIL PLASTICS APT ON 09/03/25 AND FURTHER ORDERS [code = RN/GOLF COURSE ASSISTANT/GARLAND MACHINE OPERATOR TO PERFORM/TEACH INCISION CARE TO AREA: IRRIGATE/CLEANSE WITH SOAP AND WATER SUTURE SITE TO NECK AND TRACH SITE DAILY AND PRN IF SOILED, MAY COVER TRACH SITE WITH DSD, WOUND VAC AND SKIN GRAFT SITE TO REMAIN COVERED UNTIL PLASTICS APT ON 09/03/25 AND FURTHER ORDERS] Future Scheduled Test RN TO ASSE SS/TEACH, GOLF COURSE ASSISTANT/GARLAND MACHINE OPERATOR TO OBSERVE/TEACH SURGICAL AFTERCARE MANAGEMENT TO AVOID HOSPITALIZATION. [code = RN TO ASSESS/TEACH, GOLF COURSE ASSISTANT/GARLAND MACHINE OPERATOR TO OBSERVE/TEACH SURGICAL AFTERCARE MANAGEMENT TO AVOID HOSPITALIZATION.] Future Scheduled Test PAIN MANAG EMENT; RN TO ASSESS AND TEACH, GARLAND MACHINE OPERATOR/GOLF COURSE ASSISTANT TO OBSERVE AND TEACH AND PROVIDE EDUCATION ON PAIN MANAGEMENT TECHNIQUES. [code = PAIN MANAGEMENT; RN TO ASSESS AND TEACH, GARLAND MACHINE OPERATOR/GOLF COURSE ASSISTANT TO OBSERVE AND TEACH AND PROVIDE EDUCATION ON PAIN MANAGEMENT TECHNIQUES.] Future Scheduled Test MALNUTRITI ON MANAGEMENT; RN TO ASSESS AND TEACH, GARLAND MACHINE OPERATOR/GOLF COURSE ASSISTANT TO OBSERVE AND TEACH AND INSTRUCT PATIENT / CAREGIVER ON INTERVENTIONS TO IMPROVE NUTRITIONAL INTAKE AND PATIENT WELLBEING. [code = MALNUTRITION MANAGEMENT; RN TO ASSESS AND TEACH, GARLAND MACHINE OPERATOR/GOLF COURSE ASSISTANT TO OBSERVE AND TEACH AND INSTRUCT PATIENT / CAREGIVER ON INTERVENTIONS TO IMPROVE NUTRITIONAL INTAKE AND PATIENT WELLBEING.] Future Scheduled Test CANCER MAN AGEMENT; RN TO ASSESS AND TEACH, GARLAND MACHINE OPERATOR/GOLF COURSE ASSISTANT TO OBSERVE AND TEACH AND PROVIDE EDUCATION ON CANCER. [code = CANCER MANAGEMENT; RN TO ASSESS AND TEACH, GARLAND MACHINE OPERATOR/GOLF COURSE ASSISTANT TO OBSERVE AND TEACH AND PROVIDE EDUCATION ON CANCER.] Future Scheduled Test FALL REDUC TION MANAGEMENT; RN TO ASSESS AND OBSERVE, GOLF COURSE ASSISTANT/GARLAND MACHINE OPERATOR TO OBSERVE FALL RISK FACTORS AND EDUCATE PATIENT/CAREGIVER ON STRATEGIES TO MINIMIZE THE RISK OF FALLING. [code = FALL REDUCTION MANAGEMENT; RN TO ASSESS AND OBSERVE, GOLF COURSE ASSISTANT/GARLAND MACHINE OPERATOR TO OBSERVE FALL RISK FACTORS AND EDUCATE PATIENT/CAREGIVER ON STRATEGIES TO MINIMIZE THE RISK OF FALLING.] Future Scheduled Test PHYSICAL T HERAPIST TO EVALUATE FOR GAIT AND BALANCE [code = PHYSICAL THERAPIST TO EVALUATE FOR GAIT AND BALANCE] Future Scheduled Test OCCUPATION AL THERAPIST TO EVALUATE FOR SAFETY IN ADLS [code = OCCUPATIONAL THERAPIST TO EVALUATE FOR SAFETY IN ADLS] Future Scheduled Test SPEECH THE RAPIST TO EVALUATE FOR SPEECH AND SWALLOWING [code = SPEECH THERAPIST TO EVALUATE FOR SPEECH AND SWALLOWING] Future Scheduled Test OCCUPATION AL THERAPY EVALUATION PERFORMED. NO ADDITIONAL VISITS REQUIRED. PROVIDED SKILLED INTERVENTION INCLUDING EDUCATION ON BUE STRENGTHENING EXERCISES [code = OCCUPATIONAL THERAPY EVALUATION PERFORMED. NO ADDITIONAL VISITS REQUIRED. PROVIDED SKILLED INTERVENTION INCLUDING EDUCATION ON BUE STRENGTHENING EXERCISES] Future Scheduled Test PHYSICAL T HERAPY EVALUATION PERFORMED. NO ADDITIONAL VISITS REQUIRED. PROVIDED SKILLED INTERVENTION INCLUDING HEP [code = PHYSICAL THERAPY EVALUATION PERFORMED. NO ADDITIONAL VISITS REQUIRED. PROVIDED SKILLED INTERVENTION INCLUDING HEP] Future Scheduled Test AGENCY MAY PERFORM A RESUMPTION OF CARE VISIT FOLLOWING ANY HOSPITAL ADMISSION. ST TO EVALUATE, ASSESS AND MONITOR, PROVIDE SKILLED THERAPEUTIC INTERVENTION, ACTIVITY, EDUCATION, AND TRAINING TO ADDRESS: SWALLOWING ST TO ASSESS AND PROVIDE DIET MODIFICATION AND DIET TOLERANCE/TRIALS ST TO EDUCATE ON THERAPEUTIC EXERCISES ST MAY EDUCATE ON PAIN MANAGEMENT CLINICALLY INDICATED, INCLUDING NON-PHARMACOLOGICAL PAIN REDUCTION TECHNIQUES (RELAXATION/DISTRACTION/REPOSITIONING/BIO FEEDBACK) FOR PAIN MANAGEMENT HIGH RISK FOR HOSPITALIZATION (ST) ST TO INSTRUCT PATIENT/CAREGIVER ON RISK FOR HOSPITALIZATION/EMERGENCY ROOM VISITS, TEACH SIGNS AND SYMPTOMS THAT PUT PATIENT AT RISK, WHEN TO NOTIFY NURSE/PHYSICIAN OF COMPLICATIONS/DECLINE, AND WHEN TO CALL 911. [code = AGENCY MAY PERFORM A RESUMPTION OF CARE VISIT FOLLOWING ANY HOSPITAL ADMISSION. ST TO EVALUATE, ASSESS AND MONITOR, PROVIDE SKILLED THERAPEUTIC INTERVENTION, ACTIVITY, EDUCATION, AND TRAINING TO ADDRESS: SWALLOWING ST TO ASSESS AND PROVIDE DIET MODIFICATION AND DIET TOLERANCE/TRIALS ST TO EDUCATE ON THERAPEUTIC EXERCISES ST MAY EDUCATE ON PAIN MANAGEMENT CLINICALLY INDICATED, INCLUDING NON-PHARMACOLOGICAL PAIN REDUCTION TECHNIQUES (RELAXATION/DISTRACTION/REPOSITIONING/BIO FEEDBACK) FOR PAIN MANAGEMENT HIGH RISK FOR HOSPITALIZATION (ST) ST TO INSTRUCT PATIENT/CAREGIVER ON RISK FOR HOSPITALIZATION/EMERGENCY ROOM VISITS, TEACH SIGNS AND SYMPTOMS THAT PUT PATIENT AT RISK, WHEN TO NOTIFY NURSE/PHYSICIAN OF COMPLICATIONS/DECLINE, AND WHEN TO CALL 911.] Goal 2025-09-09 Patient Goal - TO GET STRONG ER Goal Patient Goal - T O GET STRONGER. TO HEAL UP Goal Provider Goal - A PLAN OF CARE WILL BE ESTABLISHED THAT MEETS THE PATIENT S NEEDS. PATIENT WILL DEMONSTRATE OXYGEN SATURATION WITHIN NORMAL LIMITS OR PATIENT S OPTIMAL LEVEL ESTABLISHED BY THE PHYSICIAN THROUGHOUT CARE. CHANGES TO CO-MORBID CONDITIONS AND ANY NEW CONDITIONS WILL BE IDENTIFIED AND REPORTED TO THE PHYSICIAN. Goal Provider Goal - PATIENT/CAREGIVER TO VERBALIZE, AND CONSISTENTLY DEMONSTRATE EFFECTIVE, SAFE MANAGEMENT OF MEDICATION INCLUDING KNOWLEDGE OF EFFECTIVENESS, POTENTIAL SIDE EFFECTS AND DRUG REACTIONS AND WHEN TO CONTACT THE APPROPRIATE CARE PROVIDER. PATIENT/CAREGIVER WILL BE ABLE TO VERBALIZE UNDERSTANDING OF MEDICATION REGIMEN AND ACCURATELY TAKE MEDICATIONS PRESCRIBED WITHOUT ADVERSE EFFECTS BY 60 DAYS Goal Provider Goal - PATIENT/CAREGIVER WILL VERBALIZE UNDERSTANDING OF SIGNS AND SYMPTOMS THAT PUT THE PATIENT AT RISK FOR HOSPITALIZATION /EMERGENCY ROOM VISITS, WHEN TO NOTIFY NURSE/PHYSICIAN OF COMPLICATIONS/DECLINE AND WHEN TO CALL 911. Goal Provider Goal - PATIENT / CAREGIVER WILL VERBALIZE / DEMONSTRATE ABILITY TO PERFORM WOUND CARE. WOUND STATUS WILL IMPROVE EVIDENCED BY A DECREASE IN SIZE, DRAINAGE, ABSENCE OF INFECTION, AND DECREASED PAIN BY 60 DAYS Goal Provider Goal - PATIENT/CAREGIVER WILL VERBALIZE/DEMONSTRATE POSTOPERATIVE CARE TO MINIMIZE COMPLICATION AND AVOID HOSPITALIZATIONS BY THE END OF THE EPISODE. Goal Provider Goal - PATIENT / CAREGIVER WILL VERBALIZE / DEMONSTRATE UNDERSTANDING OF PAIN CONTROL MEASURES BY 60 DAYS Goal Provider Goal - PATIENT / CAREGIVER WILL VERBALIZE/DEMONSTRATE APPROPRIATE METHODS TO IMPROVE NUTRITIONAL STATUS BY END OF EPISODE. Goal Provider Goal - PATIENT / CAREGIVER WILL VERBALIZE/DEMONSTRATE UNDERSTANDING OF MEASURES TO MINIMIZE COMPLICATIONS AND REDUCE HOSPITALIZATION RELATED TO CANCER BY END OF EPISODE. Goal Provider Goal - PATIENT/CAREGIVER WILL VERBALIZE/DEMONSTRATE UNDERSTANDING OF FALL RISK FACTORS AND IMPLEMENT STRATEGIES TO MINIMIZE FALL RISK. PATIENT/CAREGIVER WILL VERBALIZE/DEMONSTRATE AN ABILITY TO ADHERE TO FALL REDUCTION SELF-MANAGEMENT AND LIFE-STYLE CHANGES BY 60 DAYS Goal Provider Goal - Goal Provider Goal - Goal Provider Goal - Goal Provider Goal - PATIENT / CAREGIVER WITHIN 1 VISIT WILL BE ABLE TO VERBALIZE / DEMONSTRATE UNDERSTANDING OF BUE STRENGTHENING HEP Goal Provider Goal - PATIENT / CAREGIVER WITHIN 1 VISIT WILL BE ABLE TO VERBALIZE / DEMONSTRATE UNDERSTANDING OF HEP Goal Provider Goal - ST STG: PT WILL TOLERATE ICE CHIPS/THIN WATER WITHOUT S/SX ASPIRATION IN 90% TRIALS WITHIN [address] LTG: PT WILL TOLERATE PO PLEASURE FOODS OF PUREE/THIN (ONCE CLEARED BY MD) WITHOUT S/SX ASPIRATION ACROSS 2 VISITS WITHIN [address] STG : PT WILL RETURN DEMO ORAL MOTOR AND PHARYNGEAL EXERCISES GIVEN MIN CUES AND MODELS WITHIN [address] LTG: PATIENT WILL BE ABLE TO RETURN DEMONSTRATE THERAPEUTIC EXERCISES FOR MAXIMIZED SWALLOW FUNCTION/SAFETY INDEPENDENTLY WITHIN [address] LTG: PATIENT WILL DEMONSTRATE UNDERSTANDING OF PAIN MANAGEMENT TECHNIQUES EVIDENCED BY REDUCED PAIN BY END OF CERT ST GOAL: PATIENT/CAREGIVER WILL VERBALIZE UNDERSTANDING OF SIGNS AND SYMPTOMS THAT PUT THE PATIENT AT RISK FOR HOSPITALIZATION /EMERGENCY ROOM VISITS, WHEN TO NOTIFY THE NURSE/PHYSICIAN OF COMPLICATIONS/DECLINE AND WHEN TO CALL 911. Encounters Start Date/Time End Date/Time Encounter Type Admission Type Attending [facility] Care Department Encounter ID Discharge Date Discharge Status Discharge Condition Discharge Reason Percent Goals Met 2025-09-02 00:00:00 2025-10-31 00:00:00 Outpatient NEW ADMISSION TESS ALBA [facility] [id number]
== END 2025-10-29 23:59 | disposition home or self-care (01) ==
LOC: INF 08:59
PROVIDERS: PCP Student in an Organized Health Care Education/Training Program; Visit Provider Internal Medicine Medical Oncology
DX: C02.2 Malignant neoplasm of ventral surface of tongue (principal); Z51.11 Encounter for antineoplastic chemotherapy
CPT/HCPCS: 80053; 85025; 96413; J3475; J3480; J7030; J7050; J8501; J8540; J9060; Q0162

== ENCOUNTER 2025-11-05 09:55 | Outpatient (CLI) | payer OTHER, SELFPAY ==
--- OUTSIDE RECORDS SUMMARY | 2025-09-06 12:00 | XMS_ITS | Encounter Summary ---
Author Organization [facility] Address [address] [place] [address] Care Team Providers Care Health Care Coach Name Role Phone Christina Arteaga TERE Primary Care Provider [phone] Maxwell White DMD Unavailable [phone] Reason for Visit * Reason Comments Follow-up Encounter Details Date Type Department Care Team ([facility] Contact Info) Description 09/06/2025 1:00 PM EDT Office Visit [facility] [address] [place] [phone] Alvaro Adrian DMD, MD [address] [facility] [address] [place] [address] Squamous cell carcinoma of mandible [...] any time in the past 12 m [facility], were you homeless or living in a mcc (including now)? No 08/21/2025 [facility] Utilities Answer Date Recorded In [...] dissection, extraction of #2,3,5,6,7,8,9,10,11,12,13,15,28,29,[address] [facility] osteocutaneous fibula reconstruction by Dr Santana [...] recommended to continue feeding through the [facility]. They report that they have not changed [...] adjuvant radiation and chemotherapy due to his [id number] disease with adverse features (WPOI 5, lymphovascular [...] Description 11/26/2025 10:45 AM EST Office Visit [facility] Plastic & Reconstructive Surgery [address] [place] [phone] Marvin Santana MD [address] [place] [phone] documented as of this encounter Visit Diagnoses Diagnosis Squamous cell carcinoma of mandible- Primary documented in this encounter Additional Health Concerns Assessment Noted Time A fall risk assessment has been complete d for the patient 09/06/2025 12:49 PM EDT A Body Mass Index follow-up plan has been documented for the patient 09/04/2025 9:49 AM EDT documented as of this encounter Care Teams Health Care Coach Relationship Specialty Start Date End Date Christina Arteaga APRN [address] [place] [address] PCP - General 06/20/25 Maxwell White DMD [facility] [address] [place] [address] Referring Physician 06/24/25 documented as of this encounter
--- OUTSIDE RECORDS SUMMARY | 2025-09-17 09:15 | XMS_ITS | Encounter Summary ---
Author Organization Healthcare Address [address] [place] [address] Care Team Providers Care Art Gallery Internship Name Role Phone Christina Arteaga APRN Primary Care Provider [phone] Maxwell White DMD Unavailable [phone] Encounter Details Date Type Department Care Team (Late st Contact Info) Description 09/17/2025 9:15 AM EST Office Visit [facility] Plastic & Reconstructive Surgery [address] [place] [phone] Marvin Santana MD [address] [phone] Floor of mouth squamous cell carcinoma (Primary [...] time in the past [address] [facility], were you homeless or living in a fpc (including now)? No 08/21/2025 [facility] Utilities Answer Date Recorded In the past 12 months has th e [employer], gas, oil, or water [employer] threatened to shut off services in your home? No 08/21/2025 Sex and Gender Information Value Date Recorded Sex Assigned at Not on file Legal Sex Male 8:28 PM EDT Gender Identity Male 06/18/2025 11:51 AM EDT Sexual Orientation Not on file documented as of this encounter Last Filed Vital Signs Vital Sign Reading Time Taken Comments Blood Pressure 106/70 09/17/2025 8:58 AM EST Pulse 75 09/17/2025 8:58 AM EST Temperature - - Respiratory Rate - - Oxygen Saturation 97% 09/17/2025 8:58 AM EST Inhaled Oxygen Concentration - - Weight 85.9 kg (189 lb 6 oz) 09/17/2025 8:58 AM EST Height 180.3 cm (5' 11 ) 09/17/2025 8:58 AM EST Body Mass Index 26.41 09/17/2025 8:58 AM EST documented in this encounter Miscellaneous Notes * Progress Notes - Sudha King MD - 09/17/2025 9:15 AM EST Images from the original note were not included. SUBJECTIVE Carlito Perez is a 54 y.o. 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 The patient is now s/p right osteocutaneous free fibula reconstruction for left oromandibular defect (08/19/25) followed by STSG (08/28/25). History of Present Illness He reports that both wounds on RLE are demonstrating satisfactory healing progress. He has been managing the wounds by dressing them every other day and ensuring cleanliness of his leg during these times. He no longer experiences any bleeding or drainage from the left chin wound. He continues to receive nutrition via a Dobbhoff tube and has an upcoming oncology appointment this Tuesday to discuss potential radiation therapy. His mobility is not compromised with perceived good strength in the right lower leg. CURRENT MEDICATIONS Current Medications[1] ALLERGIES Fish allergy, Shellfish allergy, and Penicillins PHYSICAL EXAMINATION Vital Signs: Vitals: 09/17/25 0858 BP: 106/70 Pulse: 75 SpO2: 97% Weight: 85.9 kg (189 lb 6 oz) Height: 1.803 m (5' 11 ) Body mass index is 26.41 kg/m??. General: He is in no acute distress. HENT: Head: Comments: No drainage, active bleeding at left chin, no open wound Mouth/Throat: Mouth: Mucous membranes are moist. Comments: Flap intact, well-perfused Neck: Comments: Incision C/D/I Cardiovascular: Pulses: Normal pulses. Pulmonary: Effort: Pulmonary effort is normal. Abdominal: Palpations: Abdomen is soft. Musculoskeletal: Comments: Right thigh donor site - pic depicted below, pink and well-healing, one small area of superficial rawness/irritation Right lateral leg- STSG in place, well-taken, no drainage or bleeding, some rawness/superficial irritation + granulation tissue in upper portion of graft but overall well-healing Strength and sensation intact RLE Skin: General: Skin is warm. Capillary Refill: Capillary refill takes less than 2 seconds. Neurological: Mental Status: He is alert and oriented to person, place, and time. Psychiatric: Mood and Affect: Mood normal. ASSESSMENT/Plan: Carlito Perez is a 54 y.o. male with a PmHx of floor of mouth SCC now s/p resection (Nguyễn) and subsequent free osteocutaneous fibula reconstruction (Santana-08/19/25) followed by STSG (08/28/25). Contact the office for any questions, concerns or change in status. Wounds are healing well and pt continues to get Tfs thru DHT. Pt will have oncology appt this Tuesday to discuss radiation. As such, DHT should remain in place, however, pt can begin to have soft, pureed diet as long as he goes slow. Will also reorder tube feeds. Will f/u radiation decision. Regarding wounds, pt does not have to continue to dress wounds. Can use lotion/vaseline on wounds and is okay to shower. Lastly, pt instructed to keep an ideas of chin and make sure no dehiscence, drainage, or bleeding from area especially with possible start of radiation. Follow up in 3 weeks. Sudha King PGY-1 General Surgery [1] Current Outpatient Medications: aspirin (Ecotrin) 325 MG EC tablet, Take 1 tablet by mouth daily., Disp: 30 tablet, Rfl: 0 atorvastatin (Lipitor) 20 MG tablet, Take 1 tablet by mouth daily., Disp: , Rfl: Cranberry 125 MG tablet, Take 1 tablet by mouth daily., Disp: , Rfl: isosource 1.5 Sony/mL liquid, 1 Can by Nasogastric route every 3 hours. Equivalent Substitutions Allowed? No, Disp: 1 each, Rfl: 0 levothyroxine (Synthroid, Levoxyl) 50 MCG tablet, Take 1 tablet by mouth daily before breakfast., Disp: , Rfl: metoprolol tartrate (Lopressor) 25 MG tablet, 0.5 tablets by Per G Tube route 2 times a day., Disp:30 tablet, Rfl: 0 Multiple Vitamin (MULTIVITAMIN ADULT PO), , Disp: , Rfl: Multiple Vitamin (multivitamin) tablet, Take 1 tablet by mouth daily., Disp: , Rfl: naloxone (Narcan) 4 mg/0.1 mL nasal spray, 1. Give 1 spray in nostril for no/slow breathing or cannot wake after opioid use 2. Call 911 3. Repeat in other nostril if symptoms continue, Disp: 1 each, Rfl: 0 omeprazole (PriLOSEC) [address] capsule, Take 1 capsule by mouth daily. Do not crush or chew., Disp:, Rfl: ondansetron ODT (Zofran-ODT) 4 MG disintegrating tablet, Dissolve 1 tablet on the tongue every 8 hours as needed for nausea or vomiting., Disp: 20 tablet, Rfl: 0 ramipril (Altace) 2.5 MG capsule, Take 1 capsule by mouth daily., Disp: , Rfl: gabapentin (Neurontin) 300 MG capsule, Take 1 capsule by mouth 3 times a day., Disp: 42 capsule, Rfl: 0 Cosigned by Marvin Santana MD at 09/17/2025 10:52 AM EST Associated attestation - Marvin Santana MD - 09/17/2025 10:52 AM EST I saw and evaluated the patient with the resident/fellow. I discussed the case with the resident/fellow and agree with the findings and plan as documented. Facial and neck incisions well healed. Oral skin paddle well healed without dehiscence. Right leg donor site with well healed skin graft. Movement of reconstructed jaw without any palpable TMJ displacement/dislocation. Anterior mental wound well approximated without open wound. Discussed that he can begin oral intake but we will leave DHT through radiation to ensure maintenance of adequate nutrition. We will plan to see in 3 weeks after initiation of radiation therapy. documented in this encounter Plan of Treatment Upcoming Encounters Date Type Department Care Team (Late st Contact Info) Description 11/26/2025 10:45 AM EST Office Visit [facility] Plastic & Reconstructive Surgery [address] [place] [phone] Marvin Santana MD [address] [facility] [address] [place] [address] documented as of this encounter Visit Diagnoses Diagnosis 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 Malignant neoplasm of floor of mouth, part unspecified documented in this encounter Additional Health Concerns Assessment Noted Time A fall risk assessment has been complete d for the patient 09/17/2025 8:59 AM EST A Body Mass Index follow-up plan has been documented for the patient 09/24/2025 1:07 PM EST documented as of this encounter Care Teams Art Gallery Internship Relationship Specialty Start Date End Date Christina Arteaga APRN [address] [place] [address] PCP - General 06/20/25 Maxwell White DMD [facility][note 3] [address] [place] [address] Referring Physician 06/24/25 documented as of this encounter
--- OUTSIDE RECORDS SUMMARY | 2025-09-17 13:00 | XMS_ITS | Encounter Summary ---
Author Organization Healthcare Address [address] [place] [address] Care Team Providers Care Housekeeping Aid Name Role Phone ChandlerChristina silva TERE Primary Care Provider Maxwell White DMD Unavailable [phone] Encounter Details Date Type Department Care Team (Late st Contact Info) Description 09/17/2025 1:00 PM EST Office Visit [facility] coremaker experimental Faculty Clinic [address] [facility] [address] [place] [address] Alvaro Adrian DMD, MD [address] [place] [address] Squamous cell carcinoma of mandible [...] any time in the past 12 m [facility], were you homeless or living in a correction (including now)? No 08/21/2025 [facility] Utilities Answer Date Recorded In the past 12 months has th e [employer], gas, oil, or water company threatened to [...] 12:52 PM EST documented in this encounter Miscellaneous Notes * Progress Notes - Maxwell Goetz MD - 09/17/2025 1:00 PM EST Follow Up Note: Operation: tracheotomy, left partial glossectomy, left segmental mandibulectomy, left selective neck dissection, extraction of all remaining teeth, direct laryngoscopy with biopsy, fibula free flap w/STSG by PLAS Operation Date: 08/19/25 Diagnosis: pT4a, pN1, M0 [...] appt w/Dr. Santana and Dr. Adrian at [facility] to reduce travel burden. Sofy/Nguyễn Cosigned by [...] Description 11/26/2025 10:45 AM EST Office Visit [facility] Plastic & Reconstructive Surgery [address] [place] [address] Marvin Santana MD [address] [address] documented as of this encounter [...] documented as of this encounter Care Teams Housekeeping Aid Relationship Specialty Start Date End Date Christina Arteaga APRN [address] [place] [address] PCP - General 06/20/25 Maxwell White DMD [facility] [address] [facility] [address] [place] [address] Referring Physician 06/24/25 documented as of this encounter
--- OUTSIDE RECORDS SUMMARY | 2025-10-08 09:15 | XMS_ITS | Encounter Summary ---
Author Organization Healthcare Address [address] [place] [address] Care Team Providers Care Camp Head Counselor Name Role Phone Christina Arteaga APRN Primary Care Provider [phone] Maxwell White DMD Unavailable [phone] Encounter Details Date Type Department Care Team (Late st Contact Info) Description 10/08/2025 9:15 AM EST Office Visit [facility] Plastic & Reconstructive Surgery [address] [place] [phone] Marvin Santana MD [address] [phone] Postoperative examination (Primary Dx) Social History Tobacco [...] in a long-term (including now)? No 08/21/2025 [facility] Utilities Answer Date Recorded In the past 12 months has th e [employer], gas, oil, or water [employer] threatened to shut off services in your [...] Notes * Progress Notes - Corrine Barriga, PHP WEB DEVELOPER - 10/08/2025 9:15 AM EST Subjective Patient [...] Plastic & Reconstructive Surgery [address] [place] [phone] Marvin Santana MD [address] [phone] documented as of this encounter Visit Diagnoses [...] documented as of this encounter Care Teams Camp Head Counselor Relationship Specialty Start Date End Date Christina Arteaga APRN [address] [place] [address] PCP - General 06/20/25 Maxwell White DMD [facility] [place] [address] [place] [address] Referring Physician 06/24/25 documented as of this encounter
--- OUTSIDE RECORDS SUMMARY | 2025-10-08 10:30 | XMS_ITS | Encounter Summary ---
Author Organization Healthcare Address [address] [place] [address] Care Team Providers Care Cs Associate Name Role Phone ChandlerChristina silva TERE Primary Care Provider [phone] Maxwell White DMD Unavailable [phone] Encounter Details Date Type Department Care Team (Late st Contact Info) Description 10/08/2025 10:30 AM EST Office Visit [facility] director industrial Faculty Clinic [address] [facility] [address] [place] [address] Alvaro Adrian DMD, MD [address] [place] [address] Squamous cell carcinoma of mandible [...] in the past [address] [facility], were you homeless or living in a custodial (including now)? No 08/21/2025 [facility] Utilities Answer Date Recorded In the past 12 months has th e [employer] [facility], gas, oil, or water company threatened to [...] Description 11/26/2025 10:45 AM EST Office Visit [facility] Plastic & Reconstructive Surgery [address] [place] [address] Marvin Santana MD [address] [place] [phone] documented as of this encounter Visit Diagnoses Diagnosis Squamous cell carcinoma of mandible- Primary documented in this encounter Additional Health Concerns Assessment Noted Time A fall risk assessment has been complete d for the patient 10/08/2025 8:59 AM EST A Body Mass Index follow-up plan has been documented for the patient 10/24/2025 10:56 AM EST documented as of this encounter Care Teams Cs Associate Relationship Specialty Start Date End Date Christina Arteaga APRN [address] [place] [address] PCP - General 06/20/25 Maxwell White, CLEM [facility] [address] [address] Referring Physician 06/24/25 documented as of this encounter
[2025-11-05 09:58] VITALS: BMI 26.2
--- OUTSIDE RECORDS SUMMARY | 2025-11-05 10:03 | XMS_ITS | Encounter Summary ---
Author Organization Healthcare Address [address] [place] [address] Care Team Providers Care Manager Strategic Name Role Phone Christina Arteaga APRN Primary Care Provider [phone] Maxwell White DMD Unavailable [phone] Encounter Details Date Type Department Care Team (Late st Contact Info) Description 07/01/2025 [facility] [place] [place] [facility] [address] [place] [address] [place] [id number] Social History Tobacco [...] [facility] [address] [place] [address] [phone] Marvin Santana MD [address] [facility] [address] [place] [address] documented as of this encounter Visit Diagnoses Not on filedocumented in this encounter Additional Health Concerns Assessment Noted Time A fall risk assessment has been complete d for the patient 06/28/2025 3:34 PM EDT A Body Mass Index follow-up plan has been documented for the patient 06/25/2025 11:35 AM EDT documented as of this encounter Care Teams Manager Strategic Relationship Specialty Start Date End Date Christina Arteaga APRN [address] [place] [address] PCP - General 06/20/25 Maxwell White, [facility] [address] [place] [address] Referring Physician 06/24/25 documented as of this encounter
--- OUTSIDE RECORDS SUMMARY | 2025-11-05 10:03 | XMS_ITS | Encounter Summary ---
Author Organization [facility] Address [address] [place] [address] Care Team Providers Care Coding Analyst Name Role Phone Chandler Christina TERE Primary Care Provider [phone] Christopher Maxwell Francy DMD Unavailable Encounter Details Date Type Department [...] time in the past 12 m [facility], were you homeless or living in a residential (including now)? No 08/21/2025 [facility] Utilities Answer Date Recorded In the past [...] Plastic & Reconstructive Surgery [address] [place] [address] Marvin Santana MD [address] [place] [phone] documented as of this encounter Visit Diagnoses Not on filedocumented in this encounter Additional Health Concerns Assessment Noted Time A fall risk assessment has been complete d for the patient 09/17/2025 8:59 AM EST A Body Mass Index follow-up plan has been documented for the patient 09/24/2025 1:07 PM EST documented as of this encounter Care Teams Coding Analyst Relationship Specialty Start Date End Date Christina Arteaga APRN [address] [place] [address] PCP - General 06/20/25 Maxwell White, CLEM [facility] [address] [place] [address] Referring Physician 06/24/25 documented as of this encounter
--- OUTSIDE RECORDS SUMMARY | 2025-11-05 10:03 | XMS_ITS | Encounter Summary ---
Author Organization [facility] Address [address] [place] [address] Care Team Providers Care Auto Radiator Mechanic Name Role Phone Chandler Christina TERE Primary Care Provider Christopher Maxwell Francy DMD Unavailable [phone] Encounter Details Date Type Department Care Team [...] time in the past 12 m [facility], were you homeless or living in a fpc (including now)? No 08/21/2025 [facility] Utilities [...] Plastic & Reconstructive Surgery [address] [place] [phone] Marvin Santana MD [address] [place] [phone] documented as of this encounter Visit Diagnoses Not on filedocumented in this encounter Additional Health Concerns Assessment Noted Time A fall risk assessment has been complete d for the patient 09/06/2025 12:49 PM EDT A Body Mass Index follow-up plan has been documented for the patient 09/04/2025 9:49 AM EDT documented as of this encounter Care Teams Auto Radiator Mechanic Relationship Specialty Start Date End Date Christina Arteaga APRN [address] [place] [address] PCP - General 06/20/25 Maxwell White, CLEM [facility] [address] [place] [address] Referring Physician 06/24/25 documented as of this encounter
--- OUTSIDE RECORDS SUMMARY | 2025-11-05 10:03 | XMS_ITS | Encounter Summary ---
Author Organization [facility] Address [address] [place] [address] Care Team Providers Care Butter Maker Name Role Phone Chandler Christina TERE Primary Care Provider [phone] Christopher Maxwell Francy DMD Unavailable [phone] Encounter Details Date Type Department Care Team [...] in a snf (including now)? No 08/21/2025 [facility] Utilities Answer Date Recorded In the past [...] Plastic & Reconstructive Surgery [address] [place] [address] Marvin Santana MD [address] [place] [phone] documented as of this encounter Visit Diagnoses Not on filedocumented in this encounter Additional Health Concerns Assessment Noted Time A fall risk assessment has been complete d for the patient 09/17/2025 8:59 AM EST A Body Mass Index follow-up plan has been documented for the patient 09/24/2025 1:07 PM EST documented as of this encounter Care Teams Butter Maker Relationship Specialty Start Date End Date Christina Arteaga APRN [address] [place] [address] PCP - General 06/20/25 Maxwell White, CLEM [facility] [address] [place] [address] Referring Physician 06/24/25 documented as of this encounter
--- OUTSIDE RECORDS SUMMARY | 2025-11-05 10:03 | XMS_ITS ---
Author Organization [facility] Address [address] [place] [address] Care Team Providers Care Boat Buffer Plastic Name Role Phone Christina Arteaga TERE Primary Care Provider [phone] Maxwell White DMD Unavailable [phone] Active Problems Problem Noted Date Diagnosed Date [...]
--- OUTSIDE RECORDS SUMMARY | 2025-11-05 10:03 | XMS_ITS | Encounter Summary ---
Author Organization [facility] Address [address] [place] [address] Care Team Providers Care On Awake Counselor Name Role Phone Christina Arteaga APRN Primary Care Provider [phone] Maxwell White DMD Unavailable [phone] Reason for Visit * Reason Onset Date Comments HCN Clinical Concern/Question 09/27/2025 Encounter Details Date Type Department Care Team (Late st Contact Info) Description 09/27/[address] [facility] Plastic & Reconstructive Surgery [address] [place] [address] Marvin Santana MD [address] [address] HCN Clinical Concern/Question Social History [...] in the past 12 m [facility], were you homeless or living in a longterm (including now)? No 08/21/2025 [facility] [...] aspirin, ibuprofen and acetaminophen. Best contact number: [phone] Optimal time of day to reach caller: ANYTIME Additional comments/information from caller: None Note: Please do not reply to this message. Follow-up communication and further actions as a result of this message need to be communicated with the patient directly, if the patient is not active onMyChart. If the patient is active on MyChart, they will receive notification of the communication/outcome via nfon. documented in this encounter Plan of Treatment Upcoming Encounters Date Type Department Care Team (Late st Contact Info) Description 11/26/2025 10:45 AM EST Office Visit [facility] Plastic & Reconstructive Surgery [address] [place] [address] Marvin Santana MD [address] [phone] documented as of this encounter Visit Diagnoses Not on filedocumented in this encounter Additional Health Concerns Assessment Noted Time A fall risk assessment has been complete d for the patient 09/17/2025 8:59 AM EST A Body Mass Index follow-up plan has been documented for the patient 09/24/2025 1:07 PM EST documented as of this encounter Care Teams On Awake Counselor Relationship Specialty Start Date End Date Christina Arteaga APRN [address] [place] [address] PCP - General 06/20/25 Maxwell White, DMD [facility] [address] [place] [address] Referring Physician 06/24/25 documented as of this encounter
--- OUTSIDE RECORDS SUMMARY | 2025-11-05 10:03 | XMS_ITS | Encounter Summary ---
Author Organization [facility] Address [address] [place] [address] Care Team Providers Care Instrumental Musician Name Role Phone Chandler Christina TERE Primary Care Provider [phone] Maxwell White DMD Unavailable [phone] Reason for Referral * Consultation (Routine) - Authorized Specialty Diagnoses / Procedures Referred By Fausto honeycutt Referred To Contact Oral Surgery [place] [id number] fax: [facility] technical applications specialist [facility] [address] [place] [address] [address] [place] [address] Phone: tel: Referral ID Status Reason Start Date Expiration Date Visits Requested Visits Authorized [id number] Authorized Specialty Services Required 07/03/2025 01/02/2027 1 1 Encounter Details Date Type Department Care Team (Late st Contact Info) Description 07/03/2025 [facility] [address] [place] [address] [place] [address] Oral lesion (Primary Dx) Social History Tobacco [...] Plastic & Reconstructive Surgery [address] [place] [address] Marvin Santana MD [address] [phone] Scheduled Referrals Name Type Priority Associated Diagnoses [...] documented as of this encounter Care Teams Instrumental Musician Relationship Specialty Start Date End Date Christina Arteaga APRN [address] [place] [address] PCP - General 06/20/25 Maxwell White DMD [facility] [address] [place] [address] Referring Physician 06/24/25 documented as of this encounter
--- OUTSIDE RECORDS SUMMARY | 2025-11-05 10:03 | XMS_ITS | Encounter Summary ---
Author Organization [facility] Address [address] [place] [address] Care Team Providers Care Software Engineering Specialist Name Role Phone Christina Arteaga APRN Primary Care Provider [phone] Maxwell White DMD Unavailable [phone] Encounter Details Date Type Department Care Team (Late st Contact Info) Description 09/20/2025 Telephone [facility] Plastic & Reconstructive Surgery [address] [place] [address] Marvin Santana MD [address] [address] Social History Tobacco Use Types [...] any time in the past 12 m [facility], were you homeless or living in a long-term (including now)? No 08/21/2025 [facility] Utilities Answer Date Recorded In the [...] will need a refill on that? Pharmacy: [facility] please call Best contact number: [phone] Optimal time of day to reach caller: ANYTIME Additional comments/information from caller: Not Applicable Note: Please do not reply to this message. Follow-up communication and further actions as a result of this message need to be communicated with the patient directly, if the patient is not active onMyChart. If the patient is active on MyChart, they will receive notification of the communication/outcome via PassportParking. documented in this encounter Plan of Treatment Upcoming Encounters Date Type Department Care Team (Late st Contact Info) Description 11/26/2025 10:45 AM EST Office Visit [facility] Plastic & Reconstructive Surgery [address] [place] [address] Marvin Santana MD [address] [address] documented as of this encounter Visit Diagnoses Not on filedocumented in this encounter Additional Health Concerns Assessment Noted Time A fall risk assessment has been complete d for the patient 09/17/2025 8:59 AM EST A Body Mass Index follow-up plan has been documented for the patient 09/24/2025 1:07 PM EST documented as of this encounter Care Teams Software Engineering Specialist Relationship Specialty Start Date End Date Christina Arteaga APRN [address] [place], [place] [address] PCP - General 06/20/25 Maxwell White, DMD [facility] [address] [place] [address] Referring Physician 06/24/25 documented as of this encounter
--- OUTSIDE RECORDS SUMMARY | 2025-11-05 10:03 | XMS_ITS | Encounter Summary ---
Author Organization [facility] Address [address] [place] [address] Care Team Providers Care Bedspread Inspector Name Role Phone Christina Arteaga TERE Primary Care Provider [phone] Maxwell White DMD Unavailable [phone] Encounter Details Date Type Department Care Team (Late st Contact Info) Description 07/02/2025 Lab Requisition [facility] [address] [place] [address] Nalini Mcrae, DMD [address] [facility] [address] [place] [phone] Unspecified lesions of oral mucosa Social History [...] 10:45 AM EST Office [facility] Plastic & Reconstructive Surgery [address] [place] [phone] Marvin Santana MD [address] [address] documented as of this encounter Procedures Procedure Name Priority Date/Time Associated Diagnosis Comments SURGICAL PATHOLOGY CONSULT Routine 06/25/2025 Unspecified lesions of oral mucosa documented in this encounter Results * Surgical Pathology Consult (06/25/2025) Case Report Sugical Pathology Consult Case: [id number] Authorizing Provider: Nalini Mcrae DMD Collected: 06/25/2025 Ordering Location: [facility] Received: 07/02/2025 0734 Pathologist: Timothy Chacon MD Specimen: [id number] 3:35 PM EDT [facility] Final Diagnosis A. 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 (CPS)*: 75 (SEE BELOW FOR ADDITIONAL DETAILS) 3:35 PM EDT [facility] at 1535 EDT Clinical Information K13.70 - Unspecified lesions of oral mucosa [ICD-10-CM] 3:35 PM EDT [facility] Special and Immunohistochemical Stains - [...] supporting tumor stroma, as determined by assay jig builder helper, showing partial or complete linear membrane and/or [...] IHC 22C3 pharmDx is not a FDA-approved plant controls specialist diagnostic for pembrolizumab performed on Dako KeraNet[employer]is Stainer, using formalin-fixed, paraffin imbedded (FFPE) tissue [...] developed by and is performed at the [facility], [address] [place] [address], and has not been cleared by or approved by the [place] Food and Drug Administration (FDA). The laboratory is regulated under CLIA as qualified to perform high-complexity testing. The tests are used for clinical purposes. They should not be regarded as investigational or for research. 3:35 PM EDT [facility] Gross Description A. [id number] 1 H&E a block are received from oral pathology for PD-L1 interpretation. The specimen was collected on 06/25/25. 3:35 PM EDT [facility] Note: A resident was involved in the service. I attest I examined the relevant preparations for the specimens and confirmed the diagnosis or interpretation. 3:35 PM EDT [facility] Tissue 06/25/2025 07/02/2025 7:3 4 AM EDT Nalini Mcrae DMD LAB PATHOLOGY ORDERABLES Final Result [facility] [address] [place] [address] documented in this encounter Visit Diagnoses Diagnosis Unspecified lesions of oral mucosa documented in this encounter Additional Health Concerns Assessment Noted Time A Body Mass Index follow-up plan has been documented for the patient 06/25/2025 11:35 AM EDT documented as of this encounter Care Teams Bedspread Inspector Relationship Specialty Start Date End Date Christina Arteaga APRN [address] [place] [address] PCP - General 06/20/25 Maxwell White DMD [facility] [address] [place] [address] Referring Physician 06/24/25 documented as of this encounter
--- OUTSIDE RECORDS SUMMARY | 2025-11-05 10:03 | XMS_ITS | Encounter Summary ---
Author Organization [facility] Address [address] [place] [address] Care Team Providers Care Audio Production Manager Name Role Phone Chandler Christina CARRANZA Primary Care Provider [phone] Maxwell White DMD Unavailable [phone] Reason for Visit * Reason Onset Date Comments Med Refill 09/23/2025 Encounter Details Date Type Department Care Team (Late st Contact Info) Description 09/23/2025 Refill Pav [facility] Head, Neck & Respiratory [address] [place] [address] Isha Walters, RENATO None None Squamous cell [...] time in the past 12 m [facility], were you homeless or living in a skilled nursing (including now)? No 08/21/2025 [facility] Utilities Answer Date Recorded In the [...] Plastic & Reconstructive Surgery [address] [place] [phone] Marvin Santana MD [address] [place] [phone] documented as of this encounter Visit Diagnoses Diagnosis Squamous cell carcinoma of mandible documented in this encounter Additional Health Concerns Assessment Noted Time A fall risk assessment has been complete d for the patient 09/17/2025 8:59 AM EST A Body Mass Index follow-up plan has been documented for the patient 09/24/2025 1:07 PM EST documented as of this encounter Care Teams Audio Production Manager Relationship Specialty Start Date End Date Christina Arteaga APRN [address] [place] [address] PCP - General 06/20/25 Maxwell White DMD [facility] [address] [place] [address] Referring Physician 06/24/25 documented as of this encounter
--- OUTSIDE RECORDS SUMMARY | 2025-11-05 10:03 | XMS_ITS | Encounter Summary ---
Author Organization [facility] Address [address] [place] [address] Care Team Providers Care Gift Shop Manager Name Role Phone Christina Arteaga APRN Primary Care Provider [phone] Maxwell White DMD Unavailable [phone] Encounter Details Date Type Department Care Team (Late st Contact Info) Description 09/20/2025 [facility] Plastic & Reconstructive Surgery [address] [place] [phone] Corrine Barriga APRN [address] [facility] 2[address] [place] [address] Social History Tobacco Use Types [...] time in the past 12 m [facility], were you homeless or living in a longterm (including now)? No 08/21/[address] [facility] Utilities Answer Date Recorded In the past 12 months has th e [employer], gas, oil, or water company threatened to [...] Plastic & Reconstructive Surgery [address] [place] [address] Marvin Santana MD [address] [place] [phone] documented as of this encounter Visit Diagnoses Not on filedocumented in this encounter Additional Health Concerns Assessment Noted Time A fall risk assessment has been complete d for the patient 09/17/2025 8:59 AM EST A Body Mass Index follow-up plan has been documented for the patient 09/24/2025 1:07 PM EST documented as of this encounter Care Teams Gift Shop Manager Relationship Specialty Start Date End Date Christina Arteaga APRN [address] [place] [address] PCP - General 06/20/25 Maxwell White DMD [facility] [address] [place] [address] Referring Physician 06/24/25 documented as of this encounter
--- OUTSIDE RECORDS SUMMARY | 2025-11-05 10:03 | XMS_ITS | Encounter Summary ---
Author Organization [facility] Address [address] 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 Bets number to call for scheduling is patients Elicia :[phone] Encounter Details Date Type Department Care Team (Late st Contact Info) Description 09/02/2025 Orders Only Pav [facility] Head, Neck & Respiratory [address] [place] [address] Isha Walters RN None None Squamous cell [...] any time in the past 12 m [facility], were you homeless or living in a penitentiary (including now)? No 08/21/2025 [facility] Utilities Answer Date Recorded In the [...] Plastic & Reconstructive Surgery [address] [place] [address] Marvin Santana MD [address] [address] Scheduled Referrals Name Type Priority Associated Diagnoses [...] documented as of this encounter Care Teams Freelance Digital Project Manager Relationship Specialty Start Date End Date Christina Arteaga APRN [address] [place] [address] PCP - General 06/20/25 Maxwell White DMD [facility] [address] [place] [address] Referring Physician 06/24/25 documented as of this encounter
--- OUTSIDE RECORDS SUMMARY | 2025-11-05 10:03 | XMS_ITS | Encounter Summary ---
Author Organization [facility] Address [address] [place] [address] Care Team Providers Care Pearl Hand Name Role Phone Christina Arteaga APRN Primary Care Provider [phone] Maxwell White DMD Unavailable [phone] Encounter Details Date Type Department Care Team (Late st Contact Info) Description 06/18/2025 [facility] [address] [place] [address] Maxwell White, DMD 101 [facility] [address] [place] [address] Social History Tobacco Use Types Packs/Day Years [...] Hospital Plastic & Reconstructive Surgery [address] [place] [phone] Marvin Santana MD [address] [phone] documented as of this encounter Visit Diagnoses Not on filedocumented in this encounter Care Teams Pearl Hand Relationship Specialty Start Date End Date Christina Arteaga APRN [address] [place] [address] PCP - General 06/20/25 Maxwell White, DMD [facility] [address] [place] [address] Referring Physician 06/24/25 documented as of this encounter
--- OUTSIDE RECORDS SUMMARY | 2025-11-05 10:03 | XMS_ITS | Encounter Summary ---
Author Organization [facility] Address [address] [place] [address] Care Team Providers Care Venetian Blind Installer Name Role Phone Chandler Christina TERE Primary Care Provider [phone] Christopher Maxwell Francy DMD Unavailable [phone] Encounter Details Date Type Department Care Team [...] time in the past 12 m [facility], were you homeless or living in a usp (including now)? No 08/21/2025 [facility] Utilities Answer Date Recorded In the [...] Plastic & Reconstructive Surgery [address] [place] [address] Marvin Santana MD [address] [place] [phone] documented as of this encounter Visit Diagnoses Not on filedocumented in this encounter Additional Health Concerns Assessment Noted Time A fall risk assessment has been complete d for the patient 09/06/2025 12:49 PM EDT A Body Mass Index follow-up plan has been documented for the patient 09/04/2025 9:49 AM EDT documented as of this encounter Care Teams Venetian Blind Installer Relationship Specialty Start Date End Date Christina Arteaga APRN [address] [place] [address] PCP - General 06/20/25 Maxwell White, CLEM [facility] [address] [place] [address] Referring Physician 06/24/25 documented as of this encounter
--- OUTSIDE RECORDS SUMMARY | 2025-11-05 10:03 | XMS_ITS | Encounter Summary ---
Author Organization [facility] Address [address] [place] [address] Care Team Providers Care Reel And Rewinder Operator Name Role Phone Chandler Christina TERE Primary Care Provider [phone] Christopher Maxwell Francy DMD Unavailable [phone] Encounter Details Date Type Department Care Team [...] any time in the past 12 m [facility], were you homeless or living in a custodial (including now)? No 08/21/2025 [facility] Utilities Answer Date Recorded In the [...] Plastic & Reconstructive Surgery [address] [place] [address] Marvin Santana MD [address] [place] [phone] documented as of this encounter Visit Diagnoses Not on filedocumented in this encounter Additional Health Concerns Assessment Noted Time A fall risk assessment has been complete d for the patient 10/08/2025 8:59 AM EST A Body Mass Index follow-up plan has been documented for the patient 10/24/2025 10:56 AM EST documented as of this encounter Care Teams Reel And Rewinder Operator Relationship Specialty Start Date End Date Christina Arteaga APRN [address] [place] [address] PCP - General 06/20/25 Maxwell White, CLEM [facility] Patsy Cano [address] [place] [address] Referring Physician 06/24/25 documented as of this encounter
--- OUTSIDE RECORDS SUMMARY | 2025-11-05 10:04 | XMS_ITS | Clinical Summary ---
Author Organization [facility] Address [address] [place] [address] Care Team Providers Care Manager Marketing Communications Name Role Phone Chandler Christina TERE Primary Care Provider [phone] Maxwell White DMD Unavailable Allergies Active Allergy Reactions Criticality Noted Date [...] 09/20/20 25 026 Active isosource 1.5 Sony/mL liquidIndications: Squamous cell carcinoma [...] Description 10/08/2025 10:30 AM EST Office Visit [facility] [address] [place] [address] [address] [place] [phone] Alvaro Adrian, MD CLEM Squamous cell carcinoma of mandible (Primary Dx) 10/08/2025 9:15 AM EST Office Visit [facility] [address] [place] [address] Marvin Santana MD Postoperative examination (Primary Dx) 10/08/2025 Travel 10/02/2025 Travel 09/27/2025 Telephone [facility] [address] [place] [address] Marvin Santana MD HCN Clinical Concern/Question 09/23/2025 Refill [facility] [address] [place] [phone] RomeoIsha RN Squamous cell carcinoma of mandible 09/20/2025 Orders Only [facility] Re[facility] Surgery [address] [place] [address] [address] Corrine Barrgia, SMALL OFFSET PRINTER 09/20/2025 Telephone [facility] [place] [address] Marvin Santana MD 09/17/2025 1:00 PM EST Office Visit [facility] [address] [place] [address] Alvaro Adrian DMD, MD Squamous cell carcinoma of mandible (Primary Dx) 09/17/2025 9:15 AM EST Office Visit [facility] Re[facility] Surgery [address] [place] [address] Marvin Santana MD 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) 09/17/2025 Travel 09/10/2025 Travel 09/06/2025 1:00 PM EDT Office Visit [facility] [address] [place] [address] Alvaro Adrian DMD, MD Squamous cell carcinoma of mandible (Primary Dx) 09/06/2025 Travel 09/03/2025 9:15 AM EDT Office Visit [facility] Re[facility] Surgery [address] [place] [address] Marvin Santana MD 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) 09/03/2025 Travel 09/02/2025 Telephone [facility] [address] [phone] Isha Walters RN 09/02/2025 Orders Only [facility] [address] [address] Isha Walters RN Squamous cell carcinoma of mandible (Primary Dx); Floor of mouth squamous cell carcinoma 09/02/2025 Travel 08/28/2025 4:34 PM EDT Anesthesia Event [facility] OPERATING ROOM [address] [place] [phone] Twin Hernandez MD Benson, Cathryn M, SMALL OFFSET PRINTER 08/28/2025 2:30 PM EDT - 08/28/2025 3:45 PM EDT Surgery [facility]ATING [facility] [address] [place] [phone] Marvin Santana MD Split thickness skin graft to right lower extremity flap donor site [84020 (CPT ) +1 more] 08/21/2025 Abstract [facility] [address] [address] Isha Walters RN 08/19/2025 8:17 AM EDT Anesthesia Event [facility] OPERATING ROOM [address] [place] [address] Kenneth Benavides CRNA Ellis, Teresa W, SMALL OFFSET PRINTER 08/19/2025 7:45 AM EDT - 08/19/2025 11:20 PM EDT Surgery [facility] OPERATING ROOM [address] [place] [address] Marvin Santana MD Left mandibular reconstruction with right free fibula, complex closure of oral wound, [68389 (CPT ) +4 more] 08/19/2025 5:29 AM EDT - 08/30/2025 3:53 PM EDT Hospital Encounter [facility] Inpatient [address] [place] [address] Marvin Santana MD McMaine, Travis B, DMD, MD Squamous cell carcinoma of mandible (Primary Dx); Floor of mouth squamous cell carcinoma; Wound of right lower extremity, initial encounter; Hypertension, unspecified type Discharge Disposition: Home or Self Care 08/19/2025 Travel 08/15/2025 Travel 08/15/2025 Telephone [facility] [address] [place] [address] Hafsa Moore RN 08/13/2025 Travel 08/09/2025 1:45 PM EDT Office Visit [facility] [address] [place] [address] Alvaro Adrian DMD, MD Dental abscess (Primary Dx) 08/09/2025 Travel 08/07/2025 2:30 PM EDT Pre-Admission Testing [facility] [address], [address] [place] [address] 08/07/2025 Travel from Last 3 Months Family History [...] money to buy more. Never true 08/21/20 Within the past 12 months, t he [...] any time in the past 12 m [facility], were you homeless or living in a snf (including now)? No 08/21/2025 [facility] Utilities Answer Date Recorded In the past 12 months has th e [employer], gas, oil, or water [employer] threatened to shut off services in your [...] Description 11/26/2025 10:45 AM EST Office Visit [facility] Plastic & Reconstructive Surgery [address] [place] [phone] Marvin Santana MD [address] [place] [phone] Health Maintenance Due Date Last Done Comments [...] 2017 Sigmoidoscopy 2017 [facility]-Colorectal Cancer Screening 2017 [id number] Vaccine (3 - Pfizer risk series) 09/11/2021 [...] this topic Medical Devices Implanted Type Area Helicopter Crew Chief Device Identifier Shelf Expiration Date Model / Serial / Lot Plate Ti Pspc Matrixmand Ang Recon 7x23h/2mm Lt - Sna - [id number] Implanted:Qty: 1 on 08/19/2025 by Marvin Santana MD at [facility] [employer] [id number] 08/19/2026 [id number] / NA / Screw 2.0mm Matrixmandible Lock St 8mm - Sn/A - [id number] Implanted:Qty: 13 on 08/19/2025 by Marvin Santana MD at [id number] 08/19/2026 [id number] .01 / N/A / Screw 2.0mm Matrixmandible Lock St 10mm - Sn/A - [id number] Implanted:Qty: 1 on 08/19/2025 by Marvin Santana MD at [id number] 08/19/2026 [id number] .01 / N/A / Screw 2.0mm Matrixmandible Lock St 14mm - Sn/A - [id number] Implanted:Qty: 3 on 08/19/2025 by Marvin Santana MD at [id number] 08/19/2026 [id number] .01 / N/A / Screw 2.0mm Matrixmandible Lock St 12mm - [id number] Implanted:Qty: 1 on 08/19/2025 by Marvin Santana MD at [facility]-[id number] .01 / / Procedures Procedure Name [...] OXYGEN THERAPY Routine 08/28/2025 8:00 PM EDT VA SPLIT GRFT TRUNK,ARM,LEG <100 SQCM 08/28/2025 4:20 PM EDT 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 Needs Dermatome, skin graft mesher, Artiss 4 cc and sprayer, xeroform, telfa, epinephrine/saline, tegaderm, 4-0 vicryl rapide, adaptic, silver dermanet VA SPLIT GRFT,TRUNK,ARM,LEG EA 100 SQCM 08/28/2025 4:20 [...] bovie, bipolar, tournique, tps drill and sawt VA PART REMOVAL TONGUE,<1/2 08/19/2025 8:05 AM EDT 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 Needs Microinstruments, micrscope available, doppler, handheld ligasure, bovie, bipolar, tournique, tps drill and sawt VA REMOVAL NODES, NECK,CERV CMPLT 08/19/2025 8:05 AM EDT 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 Needs Microinstruments, micrscope available, doppler, handheld ligasure, bovie, bipolar, tournique, tps drill and sawt VA REMV MALIG JAW BONE RADICAL 08/19/2025 8:05 AM EDT 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 Needs Microinstruments, micrscope available, doppler, handheld ligasure, bovie, bipolar, tournique, tps drill and sawt VA RECONSTR MANDIBLE,BONE PLATE 08/19/2025 8:05 AM EDT 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 Needs Microinstruments, micrscope available, doppler, handheld ligasure, bovie, bipolar, tournique, tps drill and sawt VA LAYR CLOS WND REST BODY 12.6-20 CM 08/19/2025 8:05 AM EDT 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 Needs Microinstruments, micrscope available, doppler, handheld ligasure, bovie, bipolar, tournique, tps drill and sawt VA REPR,FACE,GENITAL,ARGUETA ND,FT+5 CMCM/< 08/19/2025 8:05 AM EDT 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 Needs Microinstruments, micrscope available, doppler, handheld ligasure, bovie, bipolar, tournique, tps drill and sawt VA RECMPL WND HEAD,FAC,HAND 2.6-7.5 CM 08/19/2025 8:05 AM EDT 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 Needs Microinstruments, micrscope available, doppler, handheld ligasure, bovie, bipolar, tournique, tps drill and sawt VA BONE-SKIN GRAFT, MICROVASCULAR 08/19/2025 8:05 AM EDT [...] LAB HEMATOLOGY METHOD 08/30/2025 3:18 AM EDT [facility] RBC Count 3.18(L) 4.60 - 6.10 10*6/uL LAB HEMATOLOGY METHOD 08/30/2025 3:18 AM EDT [facility] HGB 9.9(L) 13.7 - 17.5 g/dL LAB HEMATOLOGY METHOD 08/30/2025 3:18 AM EDT [facility] HCT 30.3(L) 40.0 - 51.0 % LAB HEMATOLOGY METHOD 08/30/2025 3:18 AM EDT [facility] Platelet Count 550(H) 155 - 369 10*3/uL LAB HEMATOLOGY METHOD 08/30/2025 3:18 AM EDT [facility] MCV 95 79 - 98 fL LAB HEMATOLOGY METHOD 08/30/2025 3:18 AM EDT [facility] MCH 31.1 26.0 - 32.0 pg LAB HEMATOLOGY METHOD 08/30/2025 3:18 AM EDT [facility] MCHC 32.7 30.7 - 35.5 g/dL LAB HEMATOLOGY METHOD 08/30/2025 3:18 AM EDT [facility] RDW 13.2 11.5 - 14.5 % LAB HEMATOLOGY METHOD 08/30/2025 3:18 AM EDT [facility] MPV 8.7(L) 8.8 - 12.5 fL LAB HEMATOLOGY METHOD 08/30/2025 3:18 AM EDT [facility] nRBC 0.0 <=0.0 per 100 WBCs LAB HEMATOLOGY METHOD 08/30/2025 3:18 AM EDT [facility] Blood Venous blood specimen / Unknown Venipuncture / Unknown 08/30/2025 3:00 AM EDT 08/30/2025 3:11 AM EDT us Sin Min Lynn Singletary DMD, MD LAB BLOOD ORDERABLES Melida l Result Performing Organization Address City/[facility] Co de Phone Number [facility] [address] [place] [address] * Phosphorus, Plasma (08/30/2025 3:00 AM EDT) Only the most recent of9 resultswithin the time period is included. Phosphorus, Plasma 4.2 2.5 - 4.5 mg/dL 08/30/2025 3:39 AM EDT [facility] Blood Venous blood specimen / Unknown Venipuncture / Unknown 08/30/2025 3:00 AM EDT 08/30/2025 3:11 AM EDT us Sin Min Lynn Singletary DMD, MD LAB BLOOD ORDERABLES Melida l Result [facility] [address] [place] [address] * Magnesium, Plasma (08/30/2025 3:00 AM EDT) Only the most recent of9 resultswithin the time period is included. Magnesium, Plasma 2.4 1.9 - 2.4 mg/dL 08/30/2025 3:39 AM EDT [facility] Blood Venous blood specimen / Unknown Venipuncture / Unknown 08/30/2025 3:00 AM EDT 08/30/2025 3:11 AM EDT us Sin Min M Hayder [place] MD LAB BLOOD ORDERABLES Melida l Result [facility] [address] [place] [address] * (ABNORMAL) Basic Metabolic Panel, Plasma (08/30/2025 3:00 AM EDT) Only the most recent of9 resultswithin the time period is included. Glucose, Plasma 113(H) 74 - 99 mg/dL 08/30/2025 3:39 AM EDT [facility] BUN, Plasma 20 7 - 21 mg/dL 08/30/2025 3:39 AM EDT [facility] Creatinine, Plasma 0.68(L) 0.70 - 1.20 mg/dL 08/30/2025 3:39 AM EDT [facility] BUN/Creatinine Ratio 29 08/30/2025 3:39 AM EDT [facility] Sodium, Plasma 137 136 - 145 mmol/L 08/30/2025 3:39 AM EDT [facility] Potassium, Plasma 4.4 3.6 - 4.9 mmol/L 08/30/2025 3:39 AM EDT [facility] Chloride, Plasma 100 97 - 107 mmol/L 08/30/2025 3:39 AM EDT [facility] CO2, Plasma 28 22 - 29 mmol/L 08/30/2025 3:39 AM EDT [facility] Anion Gap 9 6 - 16 mmol/L 08/30/2025 3:39 AM EDT [facility] Total Calcium, Plasma 9.2 8.9 - 10.2 mg/dL 08/30/2025 3:39 AM EDT [facility] eGFRcr 111.8 mL/min/1.7 3m*2 08/30/2025 3:39 AM EDT [facility] Comment:Reported eGFRcr in m L/min/1.73m2 is based the CKD-EPI 2020 equation that does not use a race coefficient. Blood Venous blood specimen / Unknown Venipuncture / Unknown 08/30/2025 3:00 AM EDT 08/30/2025 3:11 AM EDT us Sin Dilan Singletary DMD, MD LAB BLOOD ORDERABLES Melida l Result Performing Organization Address City/[facility] Co de Phone Number [facility] [address] [place] [address] * (ABNORMAL) POCT glucose meter (08/28/2025 5:41 AM EDT) Only the most recent of20 resultswithin the time period is included. [facility] POCT Glucose 105(H) 74 - 99 mg/dL 08/28/2025 5:42 AM EDT [facility] Comment:Accuracy of [...] Comment 08/28/2025 5:42 AM EDT HEALTHCARE LAB Inspector Plating ID Lavonne Mccauley 08/28/2025 5:42 AM EDT HEALTHCARE LAB Device ID [id number] 08/28/2025 5:42 AM EDT HEALTHCARE LAB Specimen Type POC Capillary 08/28/2025 5:42 AM EDT HEALTHCARE LAB Blood Capillary blood specimen / Unknown 08/28/2025 5:41 AM EDT 08/28/2025 5:42 AM EDT us Alvaro Adrian DMD, MD LAB POINT OF CA RE TEST DOCKED DEVICE UNSOLICITED RESULTS Final Result Performing Organization Address City/[facility] Co de Phone Number [facility] [address] [place] [address] * Type and Screen (08/28/2025 3:54 AM [...] ORD ERABLES Final Result BLOOD BANK [address] * Wound VAC Dressing Changes (Non-Instillation) (08/26/2025 [...] of the abdomen. COMPARISON: None. FINDINGS: Limited efyxb-[id number] abdominal radiograph for the purpose of locating tube position. The tip of the feeding tube is within the proximal stomach. Procedure Note Patricio Trevino MD - 08/19/2025 CLINICAL INDICATION: DHT placement TECHNIQUE: Supine radiograph of the abdomen. COMPARISON: None. FINDINGS: Limited [id number]-hb-[id number] abdominal radiograph for the purpose of locatingtube [...] Detected Not Detected 08/21/2025 10:33 AM EDT [facility] Swab (Axilla and Groin) Non-blood Collection / Unknown 08/19/2025 8:19 PM EDT 08/19/2025 8:30 PM EDT Narrative [facility] - 08/21/2025 10:33 AM EDT This PCR assay was developed and its performance characteristics determined by [facility] as appropriate for clinical purposes. This assay has not been cleared or approved by the FDA, but is performed in a CLIA regulated laboratory that is qualified to perform high-complexity testing. us Marvin Santana MD LAB MICROBIOLOGY - GENER AL ORDERABLES Final Result [facility] [address] [place] [address] * Multi Drug Resistance Test (08/19/2025 8:19 PM EDT) Culture No growth at day 1 08/21/2025 7:33 AM EDT [facility] Swab (Nares and Nini Rectal) Non-blood Collection / Unknown 08/19/2025 8:19 PM EDT 08/19/2025 8:30 PM EDT Narrative [facility] - 08/21/2025 7:33 AM EDT This test was developed and its performance characteristics determined by the [facility]. Although the media is FDA-approved, it is not FDA-approved for all specimen types submitted. The FDA has determined that such clearance or approval is not necessary. This test is used for surveillance purposes. It should not be regarded as investigational or for research. The [facility] is certified under the Clinical Laboratory Improvement Amendments of 1988 (CLIA-88) as qualified to perform high complexity clinical laboratory testing. Marvin Santana MD LAB MICROBIOLOGY - [facility] AL ORDERABLES Final Result [facility] [address] [place] [address] * (ABNORMAL) Blood gas, arterial (08/19/2025 12:23 PM EDT) Only the most recent of2 resultswithin the time period is included. pH, Arterial 7.38 7.35 - 7.45 LAB HEMATOLOGY METHOD 08/19/2025 12:40 PM EDT [facility] pCO2, Arterial 42 32 - 45 mmHg LAB HEMATOLOGY METHOD 08/19/2025 12:40 PM EDT [facility] pO2, Arterial 107 83 - 108 mmHg LAB HEMATOLOGY METHOD 08/19/2025 12:40 PM EDT [facility] SO2, Measured, Arterial 99(H) 94 - 98 % LAB HEMATOLOGY METHOD 08/19/2025 12:40 PM EDT [facility] Base Excess, Arterial -0.8 -2.0 - 3.0 mmol/L LAB HEMATOLOGY METHOD 08/19/2025 12:40 PM EDT [facility] Bicarbonate, Calculated, Arterial 24 22 - 26 mmol/L LAB HEMATOLOGY METHOD 08/19/2025 12:40 PM EDT [facility] Hematocrit, Whole Blood 38.9(L) 40.0 - 51.0 % LAB HEMATOLOGY METHOD 08/19/2025 12:40 PM EDT [facility] Sodium, Whole Blood 138 136 - 145 mmol/L LAB HEMATOLOGY METHOD 08/19/2025 12:40 PM EDT [facility] Potassium, Whole Blood 3.7 3.6 - 4.9 mmol/L LAB HEMATOLOGY METHOD 08/19/2025 12:40 PM EDT [facility] Chloride, Whole Blood 105 97 - 107 mmol/L LAB HEMATOLOGY METHOD 08/19/2025 12:40 PM EDT [facility] Glucose, Whole Blood 146(H) 74 - 99 mg/dL LAB HEMATOLOGY METHOD 08/19/2025 12:40 PM EDT [facility] Ionized Calcium, Whole Blood 4.5(L) 4.6 - 5.1 mg/dL LAB HEMATOLOGY METHOD 08/19/2025 12:40 PM EDT [facility] Lactate, Arterial, Whole Blood 1.0 0.5 - 1.6 mmol/L LAB HEMATOLOGY METHOD 08/19/2025 12:40 PM EDT [facility] Blood Arterial blood specimen / Unknown 08/19/2025 12:23 PM EDT 08/19/2025 12:33 PM EDT 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] Kenneth Benavides [facility] LAB BLOOD ORDERABLES Final Result [facility] [address] [place] [id number] * Surgical Pathology Exam (08/19/2025 10:32 AM EDT) Only the most recent of2 resultswithin the time period is included. Case Report Surgical Pathology Case: [id number] Authorizing Provider: Marvin Santana MD Collected: 08/19/2025 0917 Ordering Location: [facility] A OPERATING ROOM Received: 08/19/2025 7910 Pathologist: Timothy Chacon MD Intraop: Nabila Hendrickson [...] fresh for permanent 08/28/2025 11:21 AM EDT [facility] Addendum This addendum is to document the provided clinical history. There is no change in the final diagnosis. Floor of mouth squamous cell carcinoma 08/28/2025 11:21 AM EDT [facility] Addendum electronically signed by Ellen Wilson [...] FOR CARCINOMA (0/20) 08/28/2025 11:21 AM T [facility] at 1949 EDT Comment:This is an [...] tumor in part L. 08/28/2025 11:21 AM [facility] Comment:This is an appended report. These [...] pN Category: pN1 08/28/2025 11:21 AM EDT [facility] Clinical Information No Dx Found. 08/28/2025 11:21 AM EDT [facility] Comment:This is an appended report. These [...] TUMOR IDENTIFIED. NO 08/28/2025 11:21 AM EDT [facility] Comment:Corrected result: Pr eviously reported as [...] a 1.3 x 0.5 x 0.3 cm red-robni soft tissue fragment. Measures specimen is placed [...] a robin-white, papillary, irregularly-shap ed 2.4 cm (anterior-pv design engineer ior) by 1.9 (superior-inferi or) lesion that appears to abut the posterior and inferior margins. Gross photographs both pre ink and inked are provided. Ink code: Blue-anterior Red-superior Green-inferior Black-posterior [place]-medial Uninked (with lesion)-lateral Specimen is serially sectioned [...] of left brandyn mandibulectomy measuring 10.0 cm (anterior-pv design engineer ior) x 4.6 cm (left-right) x 3.5 cm (superior-inferi or) with an attached ramus measuring 6.2 cm (superior-inferi or) x 0.6 cm (left-right) x 1.3 cm (anterior-pv design engineer ior). The specimen is oriented by a short-short stitch on the lateral soft tissue, a long-short stitch on the anterior soft tissue and a long-long stitch on the medial soft tissue. The attached medial soft tissue measures 3.4 (left-right) by 8.4 (anterior-pv design engineer ior) by 2.0 (superior-inferi or), and is [...] and the gingiva there is a 3.4 (anterior-pv design engineer ior by 1.8 (superior-inferi or by 0.8 [...] no other interosseous lesions are grossly noted Welder Production Line Combination sections are submitted as follows: L1: Anterior mucosal and soft tissue margin L2: Lateral mucosal and soft tissue margin L3: Medial mucosal and soft tissue margin L4: Posterior mucosal and soft tissue margin L5: Inferior soft tissue margin L6: Mass 2 L7-L9: Mass 1, deepest bone invasion in L9 L10: Mandibular interosseous lesion L11: Softened bone adjacent to lesion L12: Welder Production Line Combination sample of lesion Cold Time: 0 Marvel [...] Marvel Herrera MD 08/28/2025 11:21 AM EDT [facility] Comment:This is an appended report. These results have been appended to a previously preliminary verified report. Note: A resident was involved in the service. I attest I examined the relevant preparations for the specimens and confirmed the diagnosis or interpretation. 08/28/2025 11:21 AM EDT [facility] Comment:This is an appended report. These [...] PATHOLOGY ORDERABLE S Edited Result - Final [facility] [address] [place] [address] * PB ANESTHESIA NON-TIMED PROCEDURE PLACEHOLDER (08/19/2025 [...] well with no complications. Staffing Performed: ARLENE CONVENTION PLANNER: Kenneth Benavides CRNA us Caden Alas MD ANESTHESIA ORDERABLES Final Re sult * VA AN ELECTIVE ENDOTRACHEAL AIRWAY, PB ANESTHESIA PLACEHOLDER (08/19/2025 8:27 AM EDT) Narrative Kenneth Benavides CRNA - 08/19/2025 8:27 AM EDT Kenneth Benavides CRNA 08/19/2025 8:53 AM Airway Date/Time: 08/19/2025 8:27 AM Reason: elective Airway not difficult General Information and Staff Patient location during procedure: OR CONVENTION PLANNER: Kenneth Benavides CRNA Performed: ARLENE Patient Condition [...] Most Recently Relevant to Health Maintenance [facility] Advance Directives Documents on File Type Date Recorded Patient Welder Production Line Combination Expl anation Power of Geochemical Laboratory Technician 08/31/2025 1:32 PM Advance Directives and Livin g Will 08/31/2025 1:32 PM * Full Code (Latest Code Status on File) Date Activated Date Inactivated Comments 08/19/2025 7:28 AM 08/30/2025 5:53 PM Question Answer Comments I have reviewed the capacity from the link above and, if needed, have updated to appropriate status: Yes Care Teams Manager Marketing Communications Relationship Specialty Start Date End Date Chandler ChristinaTERE brush [address] [place] [address] PCP - General 06/20/25 Maxwell White, CLEM [facility] [address] [place] [address] Referring Physician 06/24/25
[2025-11-05 10:13] LABS: Hematocrit 44.1 % (42.0-52.0); Hemoglobin 14.0 g/dL (14.1-18.0); Immature Granulocytes % 0.3 %; Mean Corpuscular HGB Conc 31.7 g/dL (31.8-35.4); Mean Corpuscular Hemoglobin 29.9 pg (27.0-31.2); Mean Corpuscular Volume 94.2 fl (80-94); Nucleated Red Blood Cells % 0 %; Platelet Count 199 K/mm3 (142-424); Red Blood Count 4.68 M/mm3 (4.60-6.20); Red Cell Distribution Width-SD 40.6 fL; White Blood Count 6.6 K/mm3 (4.8-10.8)
[2025-11-05 10:16] LABS: Albumin Level 5.0 g/dl (3.5-5.0); Chloride 99 mmol/L (98-107); Potassium 4.7 mmoL/L (3.5-5.1); Sodium 137 mmol/L (136-145)
[2025-11-05 10:19] LABS: Alanine Aminotransferase 40 U/L (12-78); Alkaline Phosphatase 54 U/L (38-126); Anion Gap 12.7 mEq/L (5-15); Aspartate Amino Transferase 41 U/L (17-59); Blood Urea Nitrogen 32 mg/dl (9-20); Carbon Dioxide 30 mmol/L (22.0-30.0); Creatinine Clearance Estimated 130 mL/min (50-200); Creatinine,Serum 0.80 mg/dl (0.66-1.25); Estimated Glomerular Filt Rate 102 ml/min (>60); GFR (African American) 123 ML/MIN (>60)
[2025-11-05 10:20] LABS: Albumin/Globulin Ratio 1.6 (1.1-1.8); Calcium 10.3 mg/dl (8.4-10.2); Globulin 3.2 g/dL (1.3-3.2); Glucose 91 mg/dl (74-100); Total Protein,Serum 8.2 g/dl (6.3-8.2)
[2025-11-05 10:29] LABS: Bilirubin,Total 0.1 mg/dl (0.2-1.3)
[2025-11-05] MEDS: [UNRECOGNIZED DRUG - OTHER] IV ×2 (10:59→14:00)
[2025-11-05] MEDS: POTASSIUM CHLORIDE IV ×2 (10:59→14:00)
[2025-11-05] MEDS: MAGNESIUM SULFATE IV ×2 (10:59→14:00)
[2025-11-05 11:00] VITALS: BP 99/67; PULSE 72
[2025-11-05 12:00] VITALS: BP 119/72; PULSE 70
[2025-11-05] MEDS: ONDANSETRON 4MG ODT 16 MG SL (12:35)
[2025-11-05] MEDS: DEXAMETHASONE 4MG TABLET 12 MG PO (12:35)
[2025-11-05] MEDS: APREPITANT 125MG/80MG TRIFOLD PACK 1 PACKET PO (12:35)
[2025-11-05 12:49] VITALS: BP 137/71; PULSE 69; RESP 20; TEMP 36.8; O2SAT 98
[2025-11-05 13:20] VITALS: BP 130/65; PULSE 72; O2SAT 99
[2025-11-05 13:50] VITALS: BP 129/69; PULSE 70; O2SAT 99
== END 2025-11-05 23:59 | disposition home or self-care (01) ==
LOC: INF 09:56
PROVIDERS: PCP Student in an Organized Health Care Education/Training Program; Visit Provider Internal Medicine Medical Oncology
DX: C02.2 Malignant neoplasm of ventral surface of tongue (principal); Z51.11 Encounter for antineoplastic chemotherapy
CPT/HCPCS: 80053; 85025; 96413; J3475; J3480; J7030; J7050; J8501; J8540; J9060; Q0162

== ENCOUNTER 2025-11-12 09:13 | Outpatient (CLI) | payer OTHER, SELFPAY ==
--- OUTSIDE RECORDS SUMMARY | 2025-09-17 09:15 | XMS_ITS | Encounter Summary ---
Author Organization Healthcare Address [address] [place] [address] Care Team Providers Care Aerobics Instructor Name Role Phone Christina Arteaga APRN Primary Care Provider [phone] Maxwell White DMD Unavailable [phone] Encounter Details Date Type Department Care Team (Late st Contact Info) Description 09/17/2025 9:15 AM EST Office Visit [facility] Plastic & Reconstructive Surgery [address] [place] [phone] Marvin Santana MD [address] [phone] Floor of mouth squamous cell carcinoma (Primary [...] any time in the past 12 m [facility], were you homeless or living in a residential (including now)? No 08/21/2025 [facility] Utilities Answer Date Recorded In the past 12 months has th e [employer], gas, oil, or water [employer] threatened to shut off services in your [...] 8:58 AM EST documented in this encounter Functional Status * BP Answer Date of Assessment Author 106/70 09/17/2025 8:58 AM EST Perraut, Radha * Pulse Answer Date of Assessment Author 75 09/17/2025 8:58 AM EST Perraut, Radha * SpO2 Answer Date of Assessment Author 97 09/17/2025 8:58 AM EST Per[place], Radha * Height Answer Date of Assessment Author 71 09/17/2025 8:58 AM EST Perra[place], Radha * Weight Answer Date of Assessment Author 3030 09/17/2025 8:58 AM EST Perraut, Radha * BMI (Calculated) Answer Date of Assessment Author 26.5 09/17/2025 8:58 AM EST Perraut, Radha * Percent Excess Weight Loss Answer Date of Assessment Author 0 09/17/2025 8:58 AM EST Perra[place], Radha * Total Weight Change Percent Answer Date of Assessment Author 2222 09/17/2025 8:58 AM EST [place], Radha * Weight Change Since Preop Answer Date of Assessment Author 85.88 09/17/2025 8:58 AM EST [place], Radha * Initial Excess Weight Answer Date of Assessment Author -78.02 09/17/2025 8:58 AM EST Perraut, Radha * IBW in lbs (Bariatric) Answer Date of Assessment Author 172 09/17/2025 8:58 AM EST Per[place], Radha * Weight Change Since Last Visit Answer Date of Assessment Author 85.88 09/17/2025 8:58 AM EST Perraut, Radha * IBW in kg (Bariatric) Answer Date of Assessment Author 78.02 09/17/2025 8:58 AM EST Perraut, Radha * Percent of IBW Answer Date of Assessment Author 3,883.62 09/17/2025 8:58 AM EST Perraut, Radha * EBW (kg) Answer Date of Assessment Author 3,027.79 09/17/2025 8:58 AM EST Per[place], Radha * EBW (lbs) Answer Date of Assessment Author 3,019.25 09/17/2025 8:58 AM EST Perraut, Radha * Weight Change 24 hrs Answer Date of Assessment Author 1 09/17/2025 8:58 AM EST Perraut, Radha * BSA (Calculated - sq m) Answer Date of Assessment Author 2.07 09/17/2025 8:58 AM EST Perraut, Radha * BMI (Calculated) Answer Date of Assessment Author 26.42 09/17/2025 8:58 AM EST Perraut, Radha * IBW/kg (Calculated) Male Answer Date of Assessment Author 75.3 09/17/2025 8:58 AM EST Perra[place], Radha * IBW/kg (Calculated) Female Answer Date of Assessment Author 70.8 09/17/2025 8:58 AM EST Perraut, Radha * IBW/kg (Calculated) Answer Date of Assessment Author 75.3 09/17/2025 8:58 AM EST Perra[place], Radha * Weight in (lb) to have BMI = 25 Answer Date of Assessment Author 178.9 09/17/2025 8:58 AM EST Perra[place], Radha * BMI (Calculated) Answer Date of Assessment Author 26.5 09/17/2025 8:58 AM EST Perra[place], Radha * Percent Excess Weight Loss Answer Date of Assessment Author 0 09/17/2025 8:58 AM EST [place], Radha * Weight Change Since Preop Answer Date of Assessment Author 85.9 09/17/2025 8:58 AM EST [place], Radha * Initial Excess Weight Answer Date of Assessment Author -78.02 09/17/2025 8:58 AM EST [place], Radha * IBW in kg (Bariatric) Answer Date of Assessment Author 78.02 09/17/2025 8:58 AM EST [place], Radha * IBW in lb (Bariatric) Answer Date of Assessment Author 172 09/17/2025 8:58 AM EST Perra[place], Radha * Weight Change Since Last Visit Answer Date of Assessment Author 85.9 09/17/2025 8:58 AM EST Per[place], Radha * Percent of IBW Answer Date of Assessment Author 110.1 09/17/2025 8:58 AM EST [place], Radha * EBW (kg) Answer Date of Assessment Author 7.86 09/17/2025 8:58 AM EST Perra[place], Radha * EBW (lb) Answer Date of Assessment Author 17.38 09/17/2025 8:58 AM EST Per[place], Radha * Difference in Weight Since Last Visit Answer Date of Assessment Author 1 09/17/2025 8:58 AM EST [place], Radha * IBW/kg (Calculated) Answer Date of Assessment Author 75.3 09/17/2025 8:58 AM EST [place], Radha * Adult Low Range Vt 6mL/kg Answer Date of Assessment Author 451.8 09/17/2025 8:58 AM EST [place], Radha * Adult Moderate Range Vt 8mL/kg Answer Date of Assessment Author 602.4 09/17/2025 8:58 AM EST [place], Radha * Adult High Range Vt 10mL/kg Answer Date of Assessment Author 753 09/17/2025 8:58 AM EST [place], Radha * Pain Score Answer Date of Assessment Author 0 09/17/2025 8:58 AM EST [place], Radha * Pain Screening/Additional Assessments Question Answer Date of Assessment Author Pain Screening/Assessments Pain Screening 09/17/2025 8 :58 AM EST Perraut, Radha * Pain Screening Answer Date of Assessment Author 0-10 09/17/2025 8:58 AM EST [place], Radha * BP Answer Date of Assessment Author 106/70 09/17/2025 8:58 AM EST [place], Radha * Pulse Answer Date of Assessment Author 75 09/17/2025 8:58 AM EST [place], Radha * SpO2 Answer Date of Assessment Author 97 09/17/2025 8:58 AM EST Perra[place], Radha * Height Answer Date of Assessment Author 71 09/17/2025 8:58 AM EST Perra[place], Radha * Weight Answer Date of Assessment Author 3030 09/17/2025 8:58 AM EST Perraut, Radha * BSA (Calculated - sq m) Answer Date of Assessment Author 2.07 09/17/2025 8:58 AM EST [place], Radha * BMI (Calculated) Answer Date of Assessment Author 26.42 09/17/2025 8:58 AM EST [place]ra[place], Radha * Weight in (lb) to have BMI = 25 Answer Date of Assessment Author 178.9 09/17/2025 8:58 AM EST Perra[place], Radha * Pain Score Answer Date of Assessment Author 0 09/17/2025 8:58 AM EST [place], Radha documented as of this encounter Mental Status * BP Answer Entry Date Author 106/70 09/17/2025 8:58 AM EST [place], Radha * Pulse Answer Entry Date Author 75 09/17/2025 8:58 AM EST [place], Radha * SpO2 Answer Entry Date Author 97 09/17/2025 8:58 AM EST Perra[place], Radha * Height Answer Entry Date Author 71 09/17/2025 8:58 AM EST [place], Radha * Weight Answer Entry Date Author 3030 09/17/2025 8:58 AM EST [place], Radha * BMI (Calculated) Answer Entry Date Author 26.5 09/17/2025 8:58 AM EST [place], Radha * Percent Excess Weight Loss Answer Entry Date Author 0 09/17/2025 8:58 AM EST [place], Radha * Total Weight Change Percent Answer Entry Date Author 22209/17/2025 8:58 AM EST Per[place], Radha * Weight Change Since Preop Answer Entry Date Author 85.88 09/17/2025 8:58 AM EST [place], Radha * Initial Excess Weight Answer Entry Date Author -78.02 09/17/2025 8:58 AM EST [place], Radha * IBW in lbs (Bariatric) Answer Entry Date Author 172 09/17/2025 8:58 AM EST [place], Radha * Weight Change Since Last Visit Answer Entry Date Author 85.88 09/17/2025 8:58 AM EST [place], Radha * IBW in kg (Bariatric) Answer Entry Date Author 78.02 09/17/2025 8:58 AM EST [place], Radha * Percent of IBW Answer Entry Date Author 3,883.62 09/17/2025 8:58 AM EST [place], Radha * EBW (kg) Answer Entry Date Author 3,027.79 09/17/2025 8:58 AM EST [place], Radha * EBW (lbs) Answer Entry Date Author 3,019.25 09/17/2025 8:58 AM EST Per[place], Radha * Weight Change 24 hrs Answer Entry Date Author 1 09/17/2025 8:58 AM EST Per[place], Radha * BSA (Calculated - sq m) Answer Entry Date Author 2.07 09/17/2025 8:58 AM EST [place], Radha * BMI (Calculated) Answer Entry Date Author 26.42 09/17/2025 8:58 AM EST [place], Radha * IBW/kg (Calculated) Male Answer Entry Date Author 75.3 09/17/2025 8:58 AM EST Per[place], Radha * IBW/kg (Calculated) Female Answer Entry Date Author 70.8 09/17/2025 8:58 AM EST Per[place], Radha * IBW/kg (Calculated) Answer Entry Date Author 75.3 09/17/2025 8:58 AM EST [place], Radha * Restart Pain Assessment Timer Answer Entry Date Author Yes 09/17/2025 8:58 AM EST [place], Radha * Weight in (lb) to have BMI = 25 Answer Entry Date Author 178.9 09/17/2025 8:58 AM EST [place]ra[place], Radha * BMI (Calculated) Answer Entry Date Author 26.5 09/17/2025 8:58 AM EST [place], Radha * Percent Excess Weight Loss Answer Entry Date Author 0 09/17/2025 8:58 AM EST [place], Radha * Weight Change Since Preop Answer Entry Date Author 85.9 09/17/2025 8:58 AM EST [place], Radha * Initial Excess Weight Answer Entry Date Author -78.02 09/17/2025 8:58 AM EST [place], Radha * IBW in kg (Bariatric) Answer Entry Date Author 78.02 09/17/2025 8:58 AM EST [place], Radha * IBW in lb (Bariatric) Answer Entry Date Author 172 09/17/2025 8:58 AM EST [place], Radha * Weight Change Since Last Visit Answer Entry Date Author 85.9 09/17/2025 8:58 AM EST [place], Radha * Percent of IBW Answer Entry Date Author 110.1 09/17/2025 8:58 AM EST [place], Radha * EBW (kg) Answer Entry Date Author 7.86 09/17/2025 8:58 AM EST [place], Radha * EBW (lb) Answer Entry Date Author 17.38 09/17/2025 8:58 AM EST [place], Radha * Difference in Weight Since Last Visit Answer Entry Date Author 1 09/17/2025 8:58 AM EST [place], Radha * IBW/kg (Calculated) Answer Entry Date Author 75.3 09/17/2025 8:58 AM EST [place], Radha * Adult Low Range Vt 6mL/kg Answer Entry Date Author 451.8 09/17/2025 8:58 AM EST [place], Radha * Adult Moderate Range Vt 8mL/kg Answer Entry Date Author 602.4 09/17/2025 8:58 AM EST [place], Radha * Adult High Range Vt 10mL/kg Answer Entry Date Author 753 09/17/2025 8:58 AM EST [place], Radha * Pain Score Answer Entry Date Author 0 09/17/2025 8:58 AM EST [place], Radha * Pain Screening Answer Entry Date Author 0-10 09/17/2025 8:58 AM EST [place], Radha documented in this encounter Miscellaneous Notes * [...] fibula reconstruction (Max-08/19/25) followed by STSG (08/28/25). Contact the office [...] Description 11/26/2025 10:45 AM EST Office Visit [facility] Plastic & Reconstructive Surgery [address] [place] [address] Marvin Santana MD [address] [place] [address] [phone] documented as of this encounter Visit Diagnoses [...] documented as of this encounter Care Teams Aerobics Instructor Relationship Specialty Start Date End Date Christina Arteaga APRN [address] [place] [address] PCP - General 06/20/25 Maxwell White DMD [address] [place] [address] Referring Physician 06/24/25 documented as of this encounter
--- OUTSIDE RECORDS SUMMARY | 2025-09-17 13:00 | XMS_ITS | Encounter Summary ---
Author Organization Healthcare Address [address] [place] [address] Care Team Providers Care Inspector Motor Vehicles Name Role Phone ChandlerChristina silva TERE Primary Care Provider [phone] Maxwell White DMD Unavailable [phone] Encounter Details Date Type Department Care Team (Late st Contact Info) Description 09/17/2025 1:00 PM EST Office Visit [facility] vp ancillary Faculty Clinic [address] [facility] [address] [place] [address] Alvaro Adrian DMD, MD [address] [place] [address] Squamous cell carcinoma of mandible [...] any time in the past 12 m [facility], were you homeless or living in a custodial (including now)? No 08/21/2025 [facility] Utilities Answer Date Recorded In the past 12 months has th e [employer], gas, oil, or water company threatened to shut off services in your home? No 08/21/2025 Sex and Gender Information Value Date Recorded Sex Assigned at Not on file Legal Sex Male 8:28 PM EDT Gender Identity Male 06/18/2025 11:51 AM EDT Sexual Orientation Not on file documented as of this encounter Last Filed Vital Signs Vital Sign Reading Time Taken Comments Blood Pressure 115/71 09/17/2025 12:52 PM EST Pulse 59 09/17/2025 12:52 PM EST Temperature - - Respiratory Rate - - Oxygen Saturation 98% 09/17/2025 12:52 PM EST Inhaled Oxygen Concentration - - Weight 86 kg (189 lb 9.5 oz) 09/17/2025 12:52 PM EST Height 180.3 cm (5' 11 ) 09/17/2025 12:52 PM EST Body Mass Index 26.44 09/17/2025 12:52 PM EST documented in this encounter Functional Status * BMI (Calculated) Answer Date of Assessment Author 26.5 09/17/2025 12:52 PM EST True, Me robert * Percent Excess Weight Loss Answer Date of Assessment Author 0 09/17/2025 12:52 PM EST True, Me robert * Total Weight Change Percent Answer Date of Assessment Author 2222 09/17/2025 12:52 PM EST True, Me robert * Weight Change Since Preop Answer Date of Assessment Author 85.98 09/17/2025 12:52 PM EST True, Me robert * Initial Excess Weight Answer Date of Assessment Author -78.02 09/17/2025 12:52 PM EST True, Me robert * IBW in lbs (Bariatric) Answer Date of Assessment Author 172 09/17/2025 12:52 PM EST True, Me robert * Weight Change Since Last Visit Answer Date of Assessment Author 85.98 09/17/2025 12:52 PM EST True, Me robert * IBW in kg (Bariatric) Answer Date of Assessment Author 78.02 09/17/2025 12:52 PM EST True, Me robert * Percent of IBW Answer Date of Assessment Author 3,888.14 09/17/2025 12:52 PM EST True, Me robert * EBW (kg) Answer Date of Assessment Author 3,031.32 09/17/2025 12:52 PM EST True, Me robert * EBW (lbs) Answer Date of Assessment Author 3,022.78 09/17/2025 12:52 PM EST True, Me robert * Weight Change 24 hrs Answer Date of Assessment Author 1.1 09/17/2025 12:52 PM EST True, Me robert * BSA (Calculated - sq m) Answer Date of Assessment Author 2.08 09/17/2025 12:52 PM EST True, Me robert * IBW/kg (Calculated) Male Answer Date of Assessment Author 75.3 09/17/2025 12:52 PM EST True, Me robert * IBW/kg (Calculated) Female Answer Date of Assessment Author 70.8 09/17/2025 12:52 PM EST True, Me robert * IBW/kg (Calculated) Answer Date of Assessment Author 75.3 09/17/2025 12:52 PM EST True, Me robert * Weight in (lb) to have BMI = 25 Answer Date of Assessment Author 178.9 09/17/2025 12:52 PM EST True, Me robert * BMI (Calculated) Answer Date of Assessment Author 26.5 09/17/2025 12:52 PM EST True, Me robert * Percent Excess Weight Loss Answer Date of Assessment Author 0 09/17/2025 12:52 PM EST True, Me robert * Weight Change Since Preop Answer Date of Assessment Author 86 09/17/2025 12:52 PM EST True, Me robert * Initial Excess Weight Answer Date of Assessment Author -78.02 09/17/2025 12:52 PM EST True, Me robert * IBW in kg (Bariatric) Answer Date of Assessment Author 78.02 09/17/2025 12:52 PM EST True, Me robert * IBW in lb (Bariatric) Answer Date of Assessment Author 172 09/17/2025 12:52 PM EST True, Me robert * Weight Change Since Last Visit Answer Date of Assessment Author 0.1 09/17/2025 12:52 PM EST True, Me robert * Percent of IBW Answer Date of Assessment Author 110.23 09/17/2025 12:52 PM EST True, Me robert * EBW (kg) Answer Date of Assessment Author 7.96 09/17/2025 12:52 PM EST True, Me robert * EBW (lb) Answer Date of Assessment Author 17.6 09/17/2025 12:52 PM EST True, Me robert * Difference in Weight Since Last Visit Answer Date of Assessment Author 0.1 09/17/2025 12:52 PM EST True, Me robert * Dental Vitals Question Answer Date of Assessment Author BP 115/71 09/17/2025 12:52 PM EST True , Leonela Pulse 59 09/17/2025 12:52 PM EST True , Leonela SpO2 98 09/17/2025 12:52 PM EST True , Leonela Height 71 09/17/2025 12:52 PM EST True , Leonela Weight 3033.53 09/17/2025 12:52 PM EST True , Leonela BMI (Calculated) 26.45 09/17/2025 12:52 PM EST True, Leonela * IBW/kg (Calculated) Answer Date of Assessment Author 75.3 09/17/2025 12:52 PM EST True, Me robert * Adult Low Range Vt 6mL/kg Answer Date of Assessment Author 451.8 09/17/2025 12:52 PM EST True, Me robert * Adult Moderate Range Vt 8mL/kg Answer Date of Assessment Author 602.4 09/17/2025 12:52 PM EST True, Me robert * Adult High Range Vt 10mL/kg Answer Date of Assessment Author 753 09/17/2025 12:52 PM EST True, Me robert * BSA (Calculated - sq m) Answer Date of Assessment Author 2.08 09/17/2025 12:52 PM EST True, Me robert * Weight in (lb) to have BMI = 25 Answer Date of Assessment Author 178.9 09/17/2025 12:52 PM EST True, Me robert * Dental Vitals Question Answer Date of Assessment Author BP 115/71 09/17/2025 12:52 PM EST True , Leonela Pulse 59 09/17/2025 12:52 PM EST True , Leonela SpO2 98 09/17/2025 12:52 PM EST True , Leonela Height 71 09/17/2025 12:52 PM EST True , Leonela Weight 3033.53 09/17/2025 12:52 PM EST True , Leonela BMI (Calculated) 26.45 09/17/2025 12:52 PM EST True, Leonela documented as of this encounter Mental Status * BMI (Calculated) Answer Entry Date Author 26.5 09/17/2025 12:52 PM EST True, Me robert * Percent Excess Weight Loss Answer Entry Date Author 0 09/17/2025 12:52 PM EST True, Me robert * Total Weight Change Percent Answer Entry Date Author 222109/17/2025 12:52 PM EST True, Me robert * Weight Change Since Preop Answer Entry Date Author 85.98 09/17/2025 12:52 PM EST True, Me robert * Initial Excess Weight Answer Entry Date Author -78.02 09/17/2025 12:52 PM EST True, Me robert * IBW in lbs (Bariatric) Answer Entry Date Author 172 09/17/2025 12:52 PM EST True, Me robert * Weight Change Since Last Visit Answer Entry Date Author 85.98 09/17/2025 12:52 PM EST True, Me robert * IBW in kg (Bariatric) Answer Entry Date Author 78.02 09/17/2025 12:52 PM EST True, Me robert * Percent of IBW Answer Entry Date Author 3,888.14 09/17/2025 12:52 PM EST True, Me robert * EBW (kg) Answer Entry Date Author 3,031.32 09/17/2025 12:52 PM EST True, Me robert * EBW (lbs) Answer Entry Date Author 3,022.78 09/17/2025 12:52 PM EST True, Me robert * Weight Change 24 hrs Answer Entry Date Author 1.1 09/17/2025 12:52 PM EST True, Me robert * BSA (Calculated - sq m) Answer Entry Date Author 2.08 09/17/2025 12:52 PM EST True, Me robert * IBW/kg (Calculated) Male Answer Entry Date Author 75.3 09/17/2025 12:52 PM EST True, Me robert * IBW/kg (Calculated) Female Answer Entry Date Author 70.8 09/17/2025 12:52 PM EST True, Me robert * IBW/kg (Calculated) Answer Entry Date Author 75.3 09/17/2025 12:52 PM EST True, Me robert * Weight in (lb) to have BMI = 25 Answer Entry Date Author 178.9 09/17/2025 12:52 PM EST True, Me robert * BMI (Calculated) Answer Entry Date Author 26.5 09/17/2025 12:52 PM EST True, Me robert * Percent Excess Weight Loss Answer Entry Date Author 0 09/17/2025 12:52 PM EST True, Me robert * Weight Change Since Preop Answer Entry Date Author 86 09/17/2025 12:52 PM EST True, Me robert * Initial Excess Weight Answer Entry Date Author -78.02 09/17/2025 12:52 PM EST True, Me robert * IBW in kg (Bariatric) Answer Entry Date Author 78.02 09/17/2025 12:52 PM EST True, Me robert * IBW in lb (Bariatric) Answer Entry Date Author 172 09/17/2025 12:52 PM EST True, Me robetr * Weight Change Since Last Visit Answer Entry Date Author 0.1 09/17/2025 12:52 PM EST True, Me robert * Percent of IBW Answer Entry Date Author 110.23 09/17/2025 12:52 PM EST True, Me robert * EBW (kg) Answer Entry Date Author 7.96 09/17/2025 12:52 PM EST True, Me robert * EBW (lb) Answer Entry Date Author 17.6 09/17/2025 12:52 PM EST True, Me robert * Difference in Weight Since Last Visit Answer Entry Date Author 0.1 09/17/2025 12:52 PM EST True, Me robert * Dental Vitals Question Answer Entry Date Author BP 115/71 09/17/2025 12:52 PM EST True , Leonela Pulse 59 09/17/2025 12:52 PM EST True , Leonela SpO2 98 09/17/2025 12:52 PM EST True , Leonela Height 71 09/17/2025 12:52 PM EST True , Leonela Weight 3033.53 09/17/2025 12:52 PM EST True , Leonela BMI (Calculated) 26.45 09/17/2025 12:52 PM EST True, Leonela * IBW/kg (Calculated) Answer Entry Date Author 75.3 09/17/2025 12:52 PM EST True, Me robert * Adult Low Range Vt 6mL/kg Answer Entry Date Author 451.8 09/17/2025 12:52 PM EST True, Me robert * Adult Moderate Range Vt 8mL/kg Answer Entry Date Author 602.4 09/17/2025 12:52 PM EST True, Me robert * Adult High Range Vt 10mL/kg Answer Entry Date Author 753 09/17/2025 12:52 PM EST True, Me robert documented in this encounter Miscellaneous Notes * Progress Notes - Maxwell Goetz MD - 09/17/2025 1:00 PM EST Follow Up Note: Operation: tracheotomy, left partial glossectomy, left segmental mandibulectomy, left selective neck dissection, extraction of all remaining teeth, direct laryngoscopy with biopsy, fibula free flap w/STSG by TIO Operation Date: 08/19/25 Diagnosis: pT4a, pN1, M0 FOM SCCa SUBJECTIVE: Carlito Perez is a 54 y.o. male presenting for post operative evaluation 1 month s/p aforementioned procedures for treatment of pT4a, pN1, M0 FOM SCCa. He was seen by Dr. Adrian on 09/06/25 at which piont he was healing well. Pathology and recommendations for radiation and chemo but not immunotherapy were discussed, referrals facilitated. Pt has evaluations scheduled for both. The patient was seen by Dr. Santana earlier this morning, and was cleared for a clear liquid diet. He also no longer needs to address his wounds. Dr. Santana recommended leaving the Dobbhoff tube in place, as well as continuing tube feeds for reliable source nutrition until diet is advanced. The patient reports he is overall doing well, he is eager to start both radiation therapy and chemotherapy, he has been evaluated by both Radiation Oncology and Medical Oncology. He denies any pain, reports some improvement in his hypoesthesia and left V3 distribution despite complete transection during segmental mandibulectomy), is tolerating clear liquids, and denies any fever, chills, nausea, vomiting, trismus, odynophagia, fatigue. He is maintaining weight after initial post-operative weight loss. ROS performed and negative except where noted in HPI OBJECTIVE: PHYSICAL EXAM Gen: NAD, healthy male appearing stated age Head/Face: NCAT Mallampati: II Oral: DENNIS 40mm. Extraction sites completely granulated. L mandibular defect with no dehisces n. No vestibular fullness. No fluctuance or purulent drainage noted. Buccal mucosa, hard and soft palate, FOM, labial mucosa, all surfaces of tongue free of lesions or masses. Tongue FROM, FOM soft and non-elevated, no uvular deviation. Neck: No swelling, asymmetry, LAD appreciated, trachea midline Resp: Non-labored brearthing and equal chest rise on room air Card: No cyanosis, clubbing, or pitting edema noted MSK: FROM x 4, no abnormaility noted Skin: No rashes, excoriations, discoloration, or sloughing noted Neuro: CN II-XII grossly intact bilaterally with exception of hypoesthesia in CN V3 L distribution as expected post op Psych: Pleasant, agreeable to care, good insight to condition, reliable historian ASSESSMENT/PLAN Carlito Perez is a 54 y.o. male who is currently 1 month s/p tracheotomy, left partial glossectomy, left segmental mandibulectomy, left selective neck dissection, extraction of all remaining teeth, direct laryngoscopy with biopsy, fibula free flap w/STSG by PLAS, to treat pT4a, pN1, M0 FOM SCCa, currently healing well and progressing appropriately. Our plan is as follows: #pT4a, pN1, M0 FOM SCCa s/p resection and reconstruction -diet, wound care per PLAS -recommend radiation and chemotherapy, but not immunotherapy, based off the standard of care and patient's specific pathology (lymphovascular invasion); pt has made appropriate measures towards initiating both treatments -follow up 10/08 for conjunction appt w/Dr. Santana and Dr. Adrian at [facility] to reduce travel burden. Sofy/Nguyễn Cosigned by Alvaro Adrian DMD, MD at 09/24/2025 1:07 PM EST Associated attestation - Alvaro Adrian DMD, MD - 09/24/2025 1:07 PM EST I saw and evaluated the patient in conjunction with the resident and performed beck portions of the history and exam. The residents note reflects the services I personally performed and the decisions made by me. I agree with the resident's radiographic interpretation. Alvaro Adrian DMD, MD documented in this encounter Plan of Treatment Upcoming Encounters Date Type Department Care Team (Late st Contact Info) Description 11/26/2025 10:45 AM EST Office Visit [facility] Plastic & Reconstructive Surgery [address] [place] [address] Marvin Santana MD [address] [place] [address] documented as of this encounter Visit Diagnoses Diagnosis Squamous cell carcinoma of mandible- Primary documented in this encounter Additional Health Concerns Assessment Noted Time A fall risk assessment has been complete d for the patient 09/17/2025 8:59 AM EST A Body Mass Index follow-up plan has been documented for the patient 09/24/2025 1:07 PM EST documented as of this encounter Care Teams Inspector Motor Vehicles Relationship Specialty Start Date End Date Christina Arteaga APRN [address] [place] [address] PCP - General 06/20/25 Maxwell White DMD [facility] [address] [place] [address] Referring Physician 06/24/25 documented as of this encounter
--- OUTSIDE RECORDS SUMMARY | 2025-10-08 09:15 | XMS_ITS | Encounter Summary ---
Author Organization Healthcare Address [address] [place] [address] Care Team Providers Care Auto Glass Technician Name Role Phone Christina Arteaga APRN Primary Care Provider [phone] Maxwell White DMD Unavailable [phone] Encounter Details Date Type Department Care Team (Late st Contact Info) Description 10/08/2025 9:15 AM EST Office Visit [facility] Plastic & Reconstructive Surgery [address] [place] [phone] Marvin Santana MD [address] [phone] Postoperative examination (Primary Dx) Social History Tobacco Use Types [...] in the past 12 m [facility], were you homeless or living in a long-term (including now)? No 08/21/2025 [facility] Utilities Answer Date Recorded In the past 12 months has th e edo, gas, oil, or water [facility] [employer] threatened to shut off services in your home? No 08/21/2025 Sex and Gender Information Value Date Recorded Sex Assigned at Not on file Legal Sex Male 8:28 PM EDT Gender Identity Male 06/18/2025 11:51 AM EDT Sexual Orientation Not on file documented as of this encounter Last Filed Vital Signs Vital Sign Reading Time Taken Comments Blood Pressure 109/71 10/08/2025 8:58 AM EST Pulse 77 10/08/2025 8:58 AM EST Temperature - - Respiratory Rate - - Oxygen Saturation 100% 10/08/2025 8:58 AM EST Inhaled Oxygen Concentration - - Weight 90 kg (198 lb 6.6 oz) 10/08/2025 8:58 AM EST Height 180.3 cm (5' 11 ) 10/08/2025 8:58 AM EST Body Mass Index 27.67 10/08/2025 8:58 AM EST documented in this encounter Functional Status * BP Answer Date of Assessment Author 109/71 10/08/2025 8:58 AM EST Perraut, Radha * Pulse Answer Date of Assessment Author 77 10/08/2025 8:58 AM EST Perra[place], Radha * SpO2 Answer Date of Assessment Author 100 10/08/2025 8:58 AM EST [place], Radha * Height Answer Date of Assessment Author 71 10/08/2025 8:58 AM EST [place]ra[place], Radha * Weight Answer Date of Assessment Author 3174.62 10/08/2025 8:58 AM EST Perra[place], Radha * BMI (Calculated) Answer Date of Assessment Author 27.7 10/08/2025 8:58 AM EST Perraut, Radha * Percent Excess Weight Loss Answer Date of Assessment Author 0 10/08/2025 8:58 AM EST [place], Radha * Total Weight Change Percent Answer Date of Assessment Author 222110/08/2025 8:58 AM EST [place], Radha * Weight Change Since Preop Answer Date of Assessment Author 89.98 10/08/2025 8:58 AM EST [place], Radha * Initial Excess Weight Answer Date of Assessment Author -78.02 10/08/2025 8:58 AM EST Perra[place], Radha * IBW in lbs (Bariatric) Answer Date of Assessment Author 172 10/08/2025 8:58 AM EST [place], Radha * Weight Change Since Last Visit Answer Date of Assessment Author 89.98 10/08/2025 8:58 AM EST Perra[place], Radha * IBW in kg (Bariatric) Answer Date of Assessment Author 78.02 10/08/2025 8:58 AM EST Perra[place], Radha * Percent of IBW Answer Date of Assessment Author 4,068.98 10/08/2025 8:58 AM EST Per[place], Radha * EBW (kg) Answer Date of Assessment Author 3,172.41 10/08/2025 8:58 AM EST [place], Radha * EBW (lbs) Answer Date of Assessment Author 3,163.87 10/08/2025 8:58 AM EST Perra[place], Radha * Weight Change 24 hrs Answer Date of Assessment Author 4 10/08/2025 8:58 AM EST Perra[place], Radha * BSA (Calculated - sq m) Answer Date of Assessment Author 2.12 10/08/2025 8:58 AM EST Perra[place], Radha * BMI (Calculated) Answer Date of Assessment Author 27.69 10/08/2025 8:58 AM EST Perra[place], Radha * IBW/kg (Calculated) Male Answer Date of Assessment Author 75.3 10/08/2025 8:58 AM EST [place], Radha * IBW/kg (Calculated) Female Answer Date of Assessment Author 70.8 10/08/2025 8:58 AM EST Perra[place], Radha * IBW/kg (Calculated) Answer Date of Assessment Author 75.3 10/08/2025 8:58 AM EST Perra[place], Radha * Weight in (lb) to have BMI = 25 Answer Date of Assessment Author 178.9 10/08/2025 8:58 AM EST Perra[place], Radha * BMI (Calculated) Answer Date of Assessment Author 27.7 10/08/2025 8:58 AM EST Perra[place], Radha * Percent Excess Weight Loss Answer Date of Assessment Author 0 10/08/2025 8:58 AM EST [place], Radha * Weight Change Since Preop Answer Date of Assessment Author 90 10/08/2025 8:58 AM EST [place], Radha * Initial Excess Weight Answer Date of Assessment Author -78.02 10/08/2025 8:58 AM EST [place], Radha * IBW in kg (Bariatric) Answer Date of Assessment Author 78.02 10/08/2025 8:58 AM EST Perra[place], Radha * IBW in lb (Bariatric) Answer Date of Assessment Author 172 10/08/2025 8:58 AM EST Perra[place], Radha * Weight Change Since Last Visit Answer Date of Assessment Author 90 10/08/2025 8:58 AM EST Perra[place], Radha * Percent of IBW Answer Date of Assessment Author 115.36 10/08/2025 8:58 AM EST Perra[place], Radha * EBW (kg) Answer Date of Assessment Author 11.96 10/08/2025 8:58 AM EST [place], Radha * EBW (lb) Answer Date of Assessment Author 26.41 10/08/2025 8:58 AM EST Perra[place], Radha * Difference in Weight Since Last Visit Answer Date of Assessment Author 4 10/08/2025 8:58 AM EST Per[place], Radha * IBW/kg (Calculated) Answer Date of Assessment Author 75.3 10/08/2025 8:58 AM EST Per[place], Radha * Adult Low Range Vt 6mL/kg Answer Date of Assessment Author 451.8 10/08/2025 8:58 AM EST Perra[place], Radha * Adult Moderate Range Vt 8mL/kg Answer Date of Assessment Author 602.4 10/08/2025 8:58 AM EST [place], Radha * Adult High Range Vt 10mL/kg Answer Date of Assessment Author 753 10/08/2025 8:58 AM EST [place], Radha * Pain Score Answer Date of Assessment Author 0 10/08/2025 8:58 AM EST [place], Radha * Pain Screening/Additional Assessments Question Answer Date of Assessment Author Pain Screening/Assessments Pain Screening 10/08/2025 8 :58 AM EST Perra[place], Radha * Pain Screening Answer Date of Assessment Author 0-10 10/08/2025 8:58 AM EST Perra[place], Radha * BP Answer Date of Assessment Author 109/71 10/08/2025 8:58 AM EST Perra[place], Radha * Pulse Answer Date of Assessment Author 77 10/08/2025 8:58 AM EST [place], Radha * SpO2 Answer Date of Assessment Author 100 10/08/2025 8:58 AM EST Perra[place], Radha * Height Answer Date of Assessment Author 71 10/08/2025 8:58 AM EST [place], Radha * Weight Answer Date of Assessment Author 3174.62 10/08/2025 8:58 AM EST Perra[place], Radha * BSA (Calculated - sq m) Answer Date of Assessment Author 2.12 10/08/2025 8:58 AM EST [place], Radha * BMI (Calculated) Answer Date of Assessment Author 27.69 10/08/2025 8:58 AM EST [place], Radha * Weight in (lb) to have BMI = 25 Answer Date of Assessment Author 178.9 10/08/2025 8:58 AM EST [place], Radha * Pain Score Answer Date of Assessment Author 0 10/08/2025 8:58 AM EST [place], Radha documented as of this encounter Mental Status * BP Answer Entry Date Author 109/71 10/08/2025 8:58 AM EST [place], Radha * Pulse Answer Entry Date Author 77 10/08/2025 8:58 AM EST [place], Radha * SpO2 Answer Entry Date Author 100 10/08/2025 8:58 AM EST Per[place], Radha * Height Answer Entry Date Author 71 10/08/2025 8:58 AM EST [place], Radha * Weight Answer Entry Date Author 3174.62 10/08/2025 8:58 AM EST [place], Radha * BMI (Calculated) Answer Entry Date Author 27.7 10/08/2025 8:58 AM EST [place], Radha * Percent Excess Weight Loss Answer Entry Date Author 0 10/08/2025 8:58 AM EST [place], Radha * Total Weight Change Percent Answer Entry Date Author 222110/08/2025 8:58 AM EST [place], Radha * Weight Change Since Preop Answer Entry Date Author 89.98 10/08/2025 8:58 AM EST [place], Radha * Initial Excess Weight Answer Entry Date Author -78.02 10/08/2025 8:58 AM EST [place], Radha * IBW in lbs (Bariatric) Answer Entry Date Author 172 10/08/2025 8:58 AM EST [place], Radha * Weight Change Since Last Visit Answer Entry Date Author 89.98 10/08/2025 8:58 AM EST [place], Radha * IBW in kg (Bariatric) Answer Entry Date Author 78.02 10/08/2025 8:58 AM EST [place], Radha * Percent of IBW Answer Entry Date Author 4,068.98 10/08/2025 8:58 AM EST [place], Radha * EBW (kg) Answer Entry Date Author 3,172.41 10/08/2025 8:58 AM EST [place], Radha * EBW (lbs) Answer Entry Date Author 3,163.87 10/08/2025 8:58 AM EST [place], Radha * Weight Change 24 hrs Answer Entry Date Author 4 10/08/2025 8:58 AM EST Perra[place], Rahda * BSA (Calculated - sq m) Answer Entry Date Author 2.12 10/08/2025 8:58 AM EST [place], Radha * BMI (Calculated) Answer Entry Date Author 27.69 10/08/2025 8:58 AM EST [place], Radha * IBW/kg (Calculated) Male Answer Entry Date Author 75.3 10/08/2025 8:58 AM EST [place], Radha * IBW/kg (Calculated) Female Answer Entry Date Author 70.8 10/08/2025 8:58 AM EST [place], Radha * IBW/kg (Calculated) Answer Entry Date Author 75.3 10/08/2025 8:58 AM EST [place], Radha * Restart Pain Assessment Timer Answer Entry Date Author Yes 10/08/2025 8:58 AM EST [place], Radha * Weight in (lb) to have BMI = 25 Answer Entry Date Author 178.9 10/08/2025 8:58 AM EST [place], Radha * BMI (Calculated) Answer Entry Date Author 27.7 10/08/2025 8:58 AM EST [place], Radha * Percent Excess Weight Loss Answer Entry Date Author 0 10/08/2025 8:58 AM EST [place], Radha * Weight Change Since Preop Answer Entry Date Author 90 10/08/2025 8:58 AM EST [place], Radha * Initial Excess Weight Answer Entry Date Author -78.02 10/08/2025 8:58 AM EST [place], Radha * IBW in kg (Bariatric) Answer Entry Date Author 78.02 10/08/2025 8:58 AM EST [place], Radha * IBW in lb (Bariatric) Answer Entry Date Author 172 10/08/2025 8:58 AM EST [place], Radha * Weight Change Since Last Visit Answer Entry Date Author 90 10/08/2025 8:58 AM EST [place], Radha * Percent of IBW Answer Entry Date Author 115.36 10/08/2025 8:58 AM EST [place], Radha * EBW (kg) Answer Entry Date Author 11.96 10/08/2025 8:58 AM EST [place], Radha * EBW (lb) Answer Entry Date Author 26.41 10/08/2025 8:58 AM EST [place], Radha * Difference in Weight Since Last Visit Answer Entry Date Author 4 10/08/2025 8:58 AM EST [place], Radha * IBW/kg (Calculated) Answer Entry Date Author 75.3 10/08/2025 8:58 AM EST [place], Radha * Adult Low Range Vt 6mL/kg Answer Entry Date Author 451.8 10/08/2025 8:58 AM EST [place], Radha * Adult Moderate Range Vt 8mL/kg Answer Entry Date Author 602.4 10/08/2025 8:58 AM EST [place], Radha * Adult High Range Vt 10mL/kg Answer Entry Date Author 753 10/08/2025 8:58 AM EST [place], Radha * Pain Score Answer Entry Date Author 0 10/08/2025 8:58 AM EST [place], Radha * Pain Screening Answer Entry Date Author 0-10 10/08/2025 8:58 AM EST [place], Radha documented in this encounter Miscellaneous Notes * Progress Notes - Corrine Barriga, CATERPILLAR OPERATOR - 10/08/2025 9:15 AM EST Subjective Patient ID: Saravanan Perez is a 54 y.o. male. HPI Saravanan Perez is a 54 y.o. 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 The patient is now s/p right osteocutaneous free fibula reconstruction for left oromandibular defect (08/19/25) followed by [facility] (08/28/25) with Dr. Santana. He reports that the right lower extremityboth areas are healed. He thinks he has a blood blister inside his mouth. HE reports that he is eating some things by mouth. He is able to taste peaches and a grape electrolyte drink. He will start radiation and chemotherapy in the next 2 weeks. Review of Systems All other systems reviewed and are negative. Objective Visit Vitals BP 109/71 Pulse 77 Ht 1.803 m (5' 11 ) Wt 90 kg (198 lb 6.6 oz) SpO2 100% BMI 27.67 kg/m?? Physical Exam Vitals reviewed. HENT: Nose: Comments: DHT present Mouth/Throat: Comments: Mouth: flap perfused, no drainage, evidence of extruding suture, no erythema Neck: Comments: Neck incisions well approximated Cardiovascular: Rate and Rhythm: Normal rate. Pulses: Normal pulses. Pulmonary: Effort: Pulmonary effort is normal. Skin: Capillary Refill: Capillary refill takes less than 2 seconds. Comments: Right lower extremity both areas have healed Neurological: Mental Status: He is alert and oriented to person, place, and time. Psychiatric: Mood and Affect: Mood normal. Assessment/Plan Assessment & Plan Postoperative examination Saravanan Perez is a 54 y.o. 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 The patient is now s/p right osteocutaneous free fibula reconstruction for left oromandibular defect (08/19/25) followed by [facility] (08/28/25) with Dr. Santana. Dr. Santana and I discussed that we would like to keep the DHT because of the radiation and the potential for him not to be able to eat as easily and that we need him to maintain his nutrition. He will return to clinic in 6-8 weeks. Patient will contact the clinic with any questions or concerns. Allhis questions were answered today. The patient is agreeable plan of care. Cosigned by Marvin Santana MD at 10/08/2025 1:01 PM EST Associated attestation - Marvin Santana MD - 10/08/2025 1:01 PM EST I saw and evaluated the patient with the MONICA. I discussed the case with the MONICA and agree with the findings and plan as documented. I attest to being involved in providing substantive part of the medical decision making in patient care. Doing well upon examination today. Intraoral flap well healed without dehiscence. Neck incision well healed. DENNIS 30-40 mm without dislocation of TMJ. To begin radiation therapy soon. Will leave DHT for now to maintain nutrition through radiation therapy. Fibular donor site well healed at this time.Will plan to see following radiation therapy to evaluate incisions. documented in this encounter Plan of Treatment Upcoming Encounters Date Type Department Care Team (Late st Contact Info) Description 11/26/2025 10:45 AM EST Office Visit [facility] Plastic & Reconstructive Surgery [address] [place] [phone] Marvin Santana MD [address] [place] [phone] documented as of this encounter Visit Diagnoses Diagnosis Postoperative examination- Primary Follow-up examination, following unspecified surgery documented in this encounter Additional Health Concerns Assessment Noted Time A fall risk assessment has been complete d for the patient 10/08/2025 8:59 AM EST A Body Mass Index follow-up plan has been documented for the patient 10/24/2025 10:56 AM EST documented as of this encounter Care Teams Auto Glass Technician Relationship Specialty Start Date End Date Christina Arteaga APRN [address] [place] [address] PCP - General 06/20/25 Maxwell White DMD [facility] [address] [place] [address] Referring Physician 06/24/25 documented as of this encounter
--- OUTSIDE RECORDS SUMMARY | 2025-10-08 10:30 | XMS_ITS | Encounter Summary ---
Author Organization Healthcare Address [address] [place] [address] Care Team Providers Care Offset Plate Preparation Supervisor Name Role Phone ChandlerChristina silva TERE Primary Care Provider [phone] Maxwell White DMD Unavailable [phone] Encounter Details Date Type Department Care Team (Late st Contact Info) Description 10/08/2025 10:30 AM EST Office Visit [facility] microfilm mounter Faculty Clinic [address] [facility] [address] [place] [address] Alvaro Adrian DMD, MD [address] [place] [address] Squamous cell carcinoma of mandible [...] any time in the past 12 m [facility], were you homeless or living in a detention (including now)? No 08/21/2025 [facility] Utilities Answer Date Recorded In the past 12 months has th e [employer], gas, oil, or water company threatened to [...] 10:42 AM EST documented in this encounter Functional Status * BMI (Calculated) Answer Date of Assessment Author 27.4 10/08/2025 10:42 AM EST True, Me robert * Percent Excess Weight Loss Answer Date of Assessment Author 0 10/08/2025 10:42 AM EST True, Me robert * Total Weight Change Percent Answer Date of Assessment Author 2222 10/08/2025 10:42 AM EST True, Me robert * Weight Change Since Preop Answer Date of Assessment Author 88.98 10/08/2025 10:42 AM EST True, Me robert * Initial Excess Weight Answer Date of Assessment Author -78.02 10/08/2025 10:42 AM EST True, Me robert * IBW in lbs (Bariatric) Answer Date of Assessment Author 172 10/08/2025 10:42 AM EST True, Me robert * Weight Change Since Last Visit Answer Date of Assessment Author 88.98 10/08/2025 10:42 AM EST True, Me robert * IBW in kg (Bariatric) Answer Date of Assessment Author 78.02 10/08/2025 10:42 AM EST True, Me robert * Percent of IBW Answer Date of Assessment Author 4,023.78 10/08/2025 10:42 AM EST True, Me robert * EBW (kg) Answer Date of Assessment Author 3,137.14 10/08/2025 10:42 AM EST True, Me robert * EBW (lbs) Answer Date of Assessment Author 3,128.6 10/08/2025 10:42 AM EST True, Me robert * Weight Change 24 hrs Answer Date of Assessment Author 3 10/08/2025 10:42 AM EST True, Me robert * BSA (Calculated - sq m) Answer Date of Assessment Author 2.11 10/08/2025 10:42 AM EST True, Me robert * IBW/kg (Calculated) Male Answer Date of Assessment Author 75.3 10/08/2025 10:42 AM EST True, Me robert * IBW/kg (Calculated) Female Answer Date of Assessment Author 70.8 10/08/2025 10:42 AM EST True, Me robert * IBW/kg (Calculated) Answer Date of Assessment Author 75.3 10/08/2025 10:42 AM EST True, Me robert * Weight in (lb) to have BMI = 25 Answer Date of Assessment Author 178.9 10/08/2025 10:42 AM EST True, Me robert * BMI (Calculated) Answer Date of Assessment Author 27.4 10/08/2025 10:42 AM EST True, Me robert * Percent Excess Weight Loss Answer Date of Assessment Author 0 10/08/2025 10:42 AM EST True, Me robert * Weight Change Since Preop Answer Date of Assessment Author 89 10/08/2025 10:42 AM EST True, Me robert * Initial Excess Weight Answer Date of Assessment Author -78.02 10/08/2025 10:42 AM EST True, Me robert * IBW in kg (Bariatric) Answer Date of Assessment Author 78.02 10/08/2025 10:42 AM EST True, Me robert * IBW in lb (Bariatric) Answer Date of Assessment Author 172 10/08/2025 10:42 AM EST True, Me robert * Weight Change Since Last Visit Answer Date of Assessment Author -1 10/08/2025 10:42 AM EST True, Me robert * Percent of IBW Answer Date of Assessment Author 114.08 10/08/2025 10:42 AM EST True, Me robert * EBW (kg) Answer Date of Assessment Author 10.96 10/08/2025 10:42 AM EST True, Me robert * EBW (lb) Answer Date of Assessment Author 24.21 10/08/2025 10:42 AM EST True, Me robert * Difference in Weight Since Last Visit Answer Date of Assessment Author -1 10/08/2025 10:42 AM EST True, Me robert * Dental Vitals Question Answer Date of Assessment Author BP 96/63 10/08/2025 10:42 AM EST True , Leonela Pulse 68 10/08/2025 10:42 AM EST True , Leonela SpO2 99 10/08/2025 10:42 AM EST True , Leonela Height 71 10/08/2025 10:42 AM EST True , Leonela Weight 3139.35 10/08/2025 10:42 AM EST True , Leonela BMI (Calculated) 27.38 10/08/2025 10:42 AM EST True, Leonela * IBW/kg (Calculated) Answer Date of Assessment Author 75.3 10/08/2025 10:42 AM EST True, Me robert * Adult Low Range Vt 6mL/kg Answer Date of Assessment Author 451.8 10/08/2025 10:42 AM EST True, Me robert * Adult Moderate Range Vt 8mL/kg Answer Date of Assessment Author 602.4 10/08/2025 10:42 AM EST True, Me robert * Adult High Range Vt 10mL/kg Answer Date of Assessment Author 753 10/08/2025 10:42 AM EST True, Me robert * BSA (Calculated - sq m) Answer Date of Assessment Author 2.11 10/08/2025 10:42 AM EST True, Me robert * Weight in (lb) to have BMI = 25 Answer Date of Assessment Author 178.9 10/08/2025 10:42 AM EST True, Me robert * Dental Vitals Question Answer Date of Assessment Author BP 96/63 10/08/2025 10:42 AM EST True , Leonela Pulse 68 10/08/2025 10:42 AM EST True , Leonela SpO2 99 10/08/2025 10:42 AM EST True , Leonela Height 71 10/08/2025 10:42 AM EST True , Leonela Weight 3139.35 10/08/2025 10:42 AM EST True , Leonela BMI (Calculated) 27.38 10/08/2025 10:42 AM EST True, Leonela documented as of this encounter Mental Status * BMI (Calculated) Answer Entry Date Author 27.4 10/08/2025 10:42 AM EST True, Me robert * Percent Excess Weight Loss Answer Entry Date Author 0 10/08/2025 10:42 AM EST True, Me robert * Total Weight Change Percent Answer Entry Date Author 222110/08/2025 10:42 AM EST True, Me robert * Weight Change Since Preop Answer Entry Date Author 88.98 10/08/2025 10:42 AM EST True, Me robert * Initial Excess Weight Answer Entry Date Author -78.02 10/08/2025 10:42 AM EST True, Me robert * IBW in lbs (Bariatric) Answer Entry Date Author 172 10/08/2025 10:42 AM EST True, Me robert * Weight Change Since Last Visit Answer Entry Date Author 88.98 10/08/2025 10:42 AM EST True, Me robert * IBW in kg (Bariatric) Answer Entry Date Author 78.02 10/08/2025 10:42 AM EST True, Me robert * Percent of IBW Answer Entry Date Author 4,023.78 10/08/2025 10:42 AM EST True, Me robert * EBW (kg) Answer Entry Date Author 3,137.14 10/08/2025 10:42 AM EST True, Me robert * EBW (lbs) Answer Entry Date Author 3,128.6 10/08/2025 10:42 AM EST True, Me robert * Weight Change 24 hrs Answer Entry Date Author 3 10/08/2025 10:42 AM EST True, Me robert * BSA (Calculated - sq m) Answer Entry Date Author 2.11 10/08/2025 10:42 AM EST True, Me robert * IBW/kg (Calculated) Male Answer Entry Date Author 75.3 10/08/2025 10:42 AM EST True, Me robert * IBW/kg (Calculated) Female Answer Entry Date Author 70.8 10/08/2025 10:42 AM EST True, Me robert * IBW/kg (Calculated) Answer Entry Date Author 75.3 10/08/2025 10:42 AM EST True, Me robert * Weight in (lb) to have BMI = 25 Answer Entry Date Author 178.9 10/08/2025 10:42 AM EST True, Me robert * BMI (Calculated) Answer Entry Date Author 27.4 10/08/2025 10:42 AM EST True, Me robert * Percent Excess Weight Loss Answer Entry Date Author 0 10/08/2025 10:42 AM EST True, Me robert * Weight Change Since Preop Answer Entry Date Author 89 10/08/2025 10:42 AM EST True, Me robert * Initial Excess Weight Answer Entry Date Author -78.02 10/08/2025 10:42 AM EST True, Me robert * IBW in kg (Bariatric) Answer Entry Date Author 78.02 10/08/2025 10:42 AM EST True, Me robert * IBW in lb (Bariatric) Answer Entry Date Author 172 10/08/2025 10:42 AM EST True, Me robert * Weight Change Since Last Visit Answer Entry Date Author -1 10/08/2025 10:42 AM EST True, Me robert * Percent of IBW Answer Entry Date Author 114.08 10/08/2025 10:42 AM EST True, Me robert * EBW (kg) Answer Entry Date Author 10.96 10/08/2025 10:42 AM EST True, Me robert * EBW (lb) Answer Entry Date Author 24.21 10/08/2025 10:42 AM EST True, Me robert * Difference in Weight Since Last Visit Answer Entry Date Author -1 10/08/2025 10:42 AM EST True, Me robert * Dental Vitals Question Answer Entry Date Author BP 96/63 10/08/2025 10:42 AM EST True , Leonela Pulse 68 10/08/2025 10:42 AM EST True , Leonela SpO2 99 10/08/2025 10:42 AM EST True , Leonela Height 71 10/08/2025 10:42 AM EST True , Leonela Weight 3139.35 10/08/2025 10:42 AM EST True , Leonela BMI (Calculated) 27.38 10/08/2025 10:42 AM EST True, Leonela * IBW/kg (Calculated) Answer Entry Date Author 75.3 10/08/2025 10:42 AM EST True, Me robert * Adult Low Range Vt 6mL/kg Answer Entry Date Author 451.8 10/08/2025 10:42 AM EST True, Me robert * Adult Moderate Range Vt 8mL/kg Answer Entry Date Author 602.4 10/08/2025 10:42 AM EST True, Me robert * Adult High Range Vt 10mL/kg Answer Entry Date Author 753 10/08/2025 10:42 AM EST True, Me robert documented in this encounter Miscellaneous Notes * Progress Notes - Angus Mayo, DMD - 10/08/2025 10:30 AM EST Oral & Maxillofacial Surgery - Head & Neck Oncology Follow-Up Note DIAGNOSIS: pT4a, pN1, M0 FOM SCCa TREATMENT HISTORY: tracheotomy, left partial glossectomy, left segmental mandibulectomy, left selective neck dissection, extraction of all remaining teeth, direct laryngoscopy with biopsy, fibula free flap w/STSG by TIO on 08/19/25 Subjective: Carlito Perez [facility] a [...] [facility] [address] [place] [address] Marvin Santana MD [address] [phone] documented as of this encounter Visit Diagnoses Diagnosis Squamous cell carcinoma of mandible- Primary documented in this encounter Additional Health Concerns Assessment Noted Time A fall risk assessment has been complete d for the patient 10/08/2025 8:59 AM EST A Body Mass Index follow-up plan has been documented for the patient 10/24/2025 10:56 AM EST documented as of this encounter Care Teams Offset Plate Preparation Supervisor Relationship Specialty Start Date End Date Christina rAteaga APRN [address] [place] [address] PCP - General 06/20/25 Maxwell White DMD [facility] Patsy [address]o [address] [place] [address] Referring Physician 06/24/25 documented as of this encounter
[2025-11-12 09:15] VITALS: BMI 26.7
--- OUTSIDE RECORDS SUMMARY | 2025-11-12 09:16 | XMS_ITS ---
Author Organization [facility] Address [address] [place] [address] Care Team Providers Care Creative Lead Name Role Phone Christina Arteaga DE ALCHOLIZER Primary Care Provider [phone] Maxwell White DMD Unavailable [phone] Active Problems Problem Noted Date Diagnosed Date [...]
--- OUTSIDE RECORDS SUMMARY | 2025-11-12 09:16 | XMS_ITS | Encounter Summary ---
Author Organization [facility] Address [address] [place] [address] Care Team Providers Care Automatic Serging Machine Operator Name Role Phone Chandler Christina TERE Primary Care Provider [phone] Maxwell White DMD Unavailable [phone] Reason for Referral * Consultation (Routine) - Authorized Specialty Diagnoses / Procedures Referred By Fausto honeycutt Referred To Contact Oral Surgery [place] [id number] fax: [facility] menagerie superintendent [facility] [address] [place] [address] [address] [place] [address] Phone: tel: Referral ID Status Reason Start Date Expiration Date Visits Requested Visits Authorized [id number] Authorized Specialty Services Required 07/03/2025 01/02/2027 1 1 Encounter Details Date Type Department Care Team (Late st Contact Info) Description 07/03/2025 Community Orders Community Practice [address] [place] [address] [place] [id number] Oral lesion (Primary Dx) Social History Tobacco [...] Description 11/26/2025 10:45 AM EST Office Visit [facility] Plastic & Reconstructive Surgery [address] [place] [address] Marvin Santana MD [address] [address] Scheduled Referrals Name Type Priority Associated Diagnoses [...] documented as of this encounter Care Teams Automatic Serging Machine Operator Relationship Specialty Start Date End Date Christina Arteaga APRN [address] [place] [address] PCP - General 06/20/25 Maxwell White DMD [facility] [address] [place] [address] Referring Physician 06/24/25 documented as of this encounter
--- OUTSIDE RECORDS SUMMARY | 2025-11-12 09:16 | XMS_ITS | Encounter Summary ---
Author Organization [facility] Address [address] [place] [address] Care Team Providers Care Roll Tender Name Role Phone Chandler Christina TERE Primary Care Provider [phone] Christopher Maxwell Francy DMD Unavailable [phone] Encounter Details Date Type Department Care Team [...] any time in the past 12 m [facility], were you homeless or living in a group home (including now)? No 08/21/2025 [facility] Utilities Answer Date Recorded In [...] as of this encounter Functional Status * Travel Screening Question Answer Date of Assessment Author Have you traveled internatio david or domestically in the last month? No 10/02/2025 9:11 AM EST Mycha rt, Generic documented as of this encounter Mental Status * Travel Screening Question Answer Entry Date Author Have you traveled internatio david or domestically in the last month? No 10/02/2025 9:11 AM EST Mycha rt, Generic documented in this encounter Plan of Treatment Upcoming Encounters Date Type Department Care Team (Late st Contact Info) Description 11/26/2025 10:45 AM EST Office Visit [facility] Plastic & Reconstructive Surgery [address] [place] [phone] Marvin Santana MD [address] [facility] [address] [place] [address] documented as of this encounter Visit Diagnoses Not on filedocumented in this encounter Additional Health Concerns Assessment Noted Time A fall risk assessment has been complete d for the patient 09/17/2025 8:59 AM EST A Body Mass Index follow-up plan has been documented for the patient 09/24/2025 1:07 PM EST documented as of this encounter Care Teams Roll Tender Relationship Specialty Start Date End Date Christina Arteaga APRN [address] [place] [address] PCP - General 06/20/25 Maxwell White, DMD [facility] [address] [place] [address] Referring Physician 06/24/25 documented as of this encounter
--- OUTSIDE RECORDS SUMMARY | 2025-11-12 09:16 | XMS_ITS | Encounter Summary ---
Author Organization Healthcare Address [address] [place] [address] Care Team Providers Care Commercial Installer Name Role Phone Christina Arteaga TERE Primary Care Provider [phone] Maxwell White DMD Unavailable [phone] Encounter Details Date Type Department Care Team (Late st Contact Info) Description 07/02/2025 Lab Requisition [facility] [address] [place] [address] Nalini Mcrae, DMD 800 [facility] [address] [place] [phone] Unspecified lesions of oral mucosa Social History [...] [facility] Plastic & Reconstructive Surgery [address] [place] [phone] Marvin Santana MD [address] [address] documented as of this encounter Procedures Procedure Name Priority Date/Time Associated Diagnosis Comments SURGICAL PATHOLOGY CONSULT Routine 06/25/2025 Unspecified lesions of oral mucosa documented in this encounter Results * Surgical Pathology Consult (06/25/2025) Case Report Sugical Pathology Consult Case: [id number] Authorizing Provider: Nalini Mcrae DMD Collected: 06/25/2025 Ordering Location: [facility] Received: 07/02/2025 0734 Pathologist: Timothy Chacon MD Specimen: [id number] 3:35 PM EDT [facility] Final Diagnosis A. 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..] developed by and is performed at the [facility], [address] [place] [address], and has not been cleared by or approved by the US Food and Drug Administration (FDA). The laboratory is regulated under CLIA as qualified to perform high-complexity testing. The tests are used for clinical purposes. They should not be regarded as investigational or for research. 3:35 PM EDT [facility] Gross Description A. [id number] 1 H&E a block are received from oral pathology for PD-L1 interpretation. The specimen was collected on 06/25/25. 3:35 PM EDT [facility] Note: A resident was involved in the service. I attest I examined the relevant preparations for the specimens and confirmed the diagnosis or interpretation. 3:35 PM EDT [facility] Tissue 06/25/2025 07/02/2025 7:3 4 AM EDT Nalini Mcrae DMD LAB PATHOLOGY ORDERABLES Final Result [facility] [address] [place] [address] documented in this encounter Visit Diagnoses Diagnosis Unspecified lesions of oral mucosa documented in this encounter Additional Health Concerns Assessment Noted Time A Body Mass Index follow-up plan has been documented for the patient 06/25/2025 11:35 AM EDT documented as of this encounter Care Teams Commercial Installer Relationship Specialty Start Date End Date Christina Arteaga APRN [address] [place] [address] PCP - General 06/20/25 Maxwell White DMD [facility] [address] [place] [address] Referring Physician 06/24/25 documented as of this encounter
--- OUTSIDE RECORDS SUMMARY | 2025-11-12 09:16 | XMS_ITS | Encounter Summary ---
Author Organization Healthcare Address [address] [place] [address] Care Team Providers Care Flame Hardening Machine Operator Name Role Phone Christina Arteaga APRN Primary Care Provider [phone] Maxwell White DMD Unavailable Encounter Details Date Type Department Care Team (Late st Contact Info) Description 07/01/2025 [facility] Community Practice [address] [place] [address] [place] [address] Social History Tobacco [...] [facility] Plastic & Reconstructive Surgery [address] [place] [phone] Marvin Santana MD [address] [facility] [address] [place] [address] documented as of this encounter Visit Diagnoses Not on filedocumented in this encounter Additional Health Concerns Assessment Noted Time A fall risk assessment has been complete d for the patient 06/28/2025 3:34 PM EDT A Body Mass Index follow-up plan has been documented for the patient 06/25/2025 11:35 AM EDT documented as of this encounter Care Teams Flame Hardening Machine Operator Relationship Specialty Start Date End Date Christina Arteaga APRN [address] [place] [address] PCP - General 06/20/25 Maxwell White, CLEM [facility] [address] [place] [address] Referring Physician 06/24/25 documented as of this encounter
--- OUTSIDE RECORDS SUMMARY | 2025-11-12 09:16 | XMS_ITS | Encounter Summary ---
Author Organization Healthcare Address [address] [place] [address] Care Team Providers Care Fitness And Wellness Manager Name Role Phone Christina Arteaga APRN Primary Care Provider [phone] Maxwell White DMD Unavailable [phone] Encounter Details Date Type Department Care Team (Late st Contact Info) Description 06/18/2025 [facility] Community Practice [address] [place] [address] Maxwell White, DMD 101 [facility] [address] [place] [address] Social History Tobacco Use Types Packs/Day Years [...] Description 11/26/2025 10:45 AM EST Office Visit [facility] Plastic & Reconstructive Surgery [address] [place] [phone] Marvin Santana MD [address] [place] [address] [phone] documented as of this encounter Visit Diagnoses Not on filedocumented in this encounter Care Teams Fitness And Wellness Manager Relationship Specialty Start Date End Date Christina Arteaga APRN [address] [place] [address] PCP - General 06/20/25 Maxwell White, DMD [facility] [address] [place] [address] Referring Physician 06/24/25 documented as of this encounter
--- OUTSIDE RECORDS SUMMARY | 2025-11-12 09:16 | XMS_ITS | Encounter Summary ---
Author Organization [facility] Address [address] [place] [address] Care Team Providers Care Scrap Charger Name Role Phone Chandler Christina TERE Primary Care Provider [phone] Christopher Maxwell Francy DMD Unavailable [phone] Encounter Details Date Type Department Care Team [...] the past [address] [facility], were you homeless or living in a fdc (including now)? No 08/21/2025 [facility] Utilities Answer Date Recorded In the past [...] as of this encounter Functional Status * Communicable Disease Screening Question Answer Date of Assessment Author Have you been in contact wit h someone who was sick? No / Unsure 09/17/2025 8:54 AM EST Figueroa Nash E Do you have any of the follo wing new or worsening symptoms? None of these 09/17/2025 8:54 AM EST Figueroa Tri shaan E * Travel Screening Question Answer Date of Assessment Author Have you traveled internatio david or domestically in the last month? No 09/17/2025 8:54 AM EST Figueroa Nash E documented as of this encounter Mental Status * Communicable Disease Screening Question Answer Entry Date Author Have you been in contact wit h someone who was sick? No / Unsure 09/17/2025 8:54 AM EST Figueroa, Nash E Do you have any of the follo wing new or worsening symptoms? None of these 09/17/2025 8:54 AM EST Figueroa, Tri lby E * Travel Screening Question Answer Entry Date Author Have you traveled internatio david or domestically in the last month? No 09/17/2025 8:54 AM EST Figueroa , Nash E documented in this encounter Plan of Treatment Upcoming Encounters Date Type Department Care Team (Late st Contact Info) Description 11/26/2025 10:45 AM EST Office Visit [facility] Plastic & Reconstructive Surgery [address] [place] [phone] Marvin Santana MD [address] [phone] documented as of this encounter Visit Diagnoses Not on filedocumented in this encounter Additional Health Concerns Assessment Noted Time A fall risk assessment has been complete d for the patient 09/17/2025 8:59 AM EST A Body Mass Index follow-up plan has been documented for the patient 09/24/2025 1:07 PM EST documented as of this encounter Care Teams Scrap Charger Relationship Specialty Start Date End Date Christina Arteaga APRN [address] [place] [address] PCP - General 06/20/25 Maxwell White DMD [facility] [address] [place] [address] Referring Physician 06/24/25 documented as of this encounter
--- OUTSIDE RECORDS SUMMARY | 2025-11-12 09:16 | XMS_ITS | Encounter Summary ---
Author Organization [facility] Address [address] [place] [address] Care Team Providers Care Chief Creative Officer Name Role Phone Chandler Christina TERE Primary Care Provider [phone] Christopher Maxwell Francy DMD Unavailable [phone] Encounter Details Date Type Department Care Team [...] any time in the past 12 m [facility], were you homeless or living in a prison (including now)? No 08/21/2025 [facility] Utilities Answer Date Recorded In the past [...] someone who was sick? No / Unsure 10/08/2025 8:51 AM Luna Vergara Do you have any of the following new or worsening symptoms? None of these 10/08/2025 8:51 AM Luna Vergara * Travel Screening Question Answer Date of Assessment Author Have you traveled internatio david or domestically in the last month? No 10/08/2025 8:51 AM Luna Rincon documented as of this encounter Mental Status * Communicable Disease Screening Question Answer Entry Date Author Have you been in contact wit h someone who was sick? No / Unsure 10/08/2025 8:51 AM Luna Vergara Do you have any of the following new or worsening symptoms? None of these 10/08/2025 8:51 AM Luna Vergara * Travel Screening Question Answer Entry Date Author Have you traveled internatio david or domestically in the last month? No 10/08/2025 8:51 AM Luna Rincon documented in this encounter Plan of Treatment Upcoming Encounters Date Type Department Care Team (Late st Contact Info) Description 11/26/2025 10:45 AM EST Office Visit [facility] Plastic & Reconstructive Surgery [address] [place] [phone] Marvin Santana MD [address] [phone] documented as of this encounter Visit Diagnoses Not on filedocumented in this encounter Additional Health Concerns Assessment Noted Time A fall risk assessment has been complete d for the patient 10/08/2025 8:59 AM EST A Body Mass Index follow-up plan has been documented for the patient 10/24/2025 10:56 AM EST documented as of this encounter Care Teams Chief Creative Officer Relationship Specialty Start Date End Date Christina Arteaga APRN [address] [place] [address] PCP - General 06/20/25 Maxwell White DMD [facility] [address] [place] [address] Referring Physician 06/24/25 documented as of this encounter
--- OUTSIDE RECORDS SUMMARY | 2025-11-12 09:16 | XMS_ITS | Encounter Summary ---
Author Organization Healthcare Address [address] [place] [address] Care Team Providers Care Commercial Electrician Name Role Phone Chandler Christina CARRANZA Primary Care Provider [phone] Maxwell White DMD Unavailable [phone] Reason for Visit * Reason Onset Date Comments Med Refill 09/23/2025 Encounter Details Date Type Department Care Team (Late st Contact Info) Description 09/23/2025 [facility]ill [facility] [address] [place] [address] Isha Walters, RENATO None None Squamous cell [...] a long term (including now)? 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
--- OUTSIDE RECORDS SUMMARY | 2025-11-12 09:16 | XMS_ITS | Encounter Summary ---
Author Organization Healthcare Address [address] [place] [address] Care Team Providers Care Telesales Manager Name Role Phone Christina Arteaga APRN Primary Care Provider [phone] Maxwell White DMD Unavailable [phone] Encounter Details Date Type Department Care Team (Late st Contact Info) Description 09/20/2025 Orders [facility] Pl[facility] & Re[facility]ive [facility] [address] [place] [phone] Corrine Barriga APRN 2[address] [facility] 2[address] [place] [address] Social History Tobacco Use Types [...] time in the past 12 m [facility], were you homeless or living in a residential (including now)? No 08/21/2025 [facility] Utilities Answer Date Recorded In the past 12 months has th e PFI Acquisition, gas, oil, or water company threatened to [...] Plastic & Reconstructive Surgery [address] [place] [phone] Marvin Santana MD [address] [place] [phone] documented as of this encounter Visit Diagnoses Not on filedocumented in this encounter Additional Health Concerns Assessment Noted Time A fall risk assessment has been complete d for the patient 09/17/2025 8:59 AM EST A Body Mass Index follow-up plan has been documented for the patient 09/24/2025 1:07 PM EST documented as of this encounter Care Teams Telesales Manager Relationship Specialty Start Date End Date Christina Arteaga APRN [address] [place] [address] PCP - General 06/20/25 Maxwell White DMD [facility] [address] [place] [address] Referring Physician 06/24/25 documented as of this encounter
--- OUTSIDE RECORDS SUMMARY | 2025-11-12 09:16 | XMS_ITS | Clinical Summary ---
Author Organization [facility] Address [address] [place] [address] Care Team Providers Care Appetizer Packer Name Role Phone Chandler Christina TERE Primary Care Provider [phone] Maxwell White DMD Unavailable [phone] Allergies Active Allergy Reactions Criticality Noted Date [...] Description 10/08/2025 10:30 AM EST Office Visit [facility] [address] [place] [address] [address] [place] [phone] Alvaro Adrian, MD CLEM Squamous cell carcinoma of mandible (Primary Dx) 10/08/2025 9:15 AM EST Office Visit [facility] Plastic & Reconstructive Surgery [address] [place] [address] Marvin Santana MD Postoperative examination (Primary Dx) 10/08/2025 Travel 10/02/2025 Travel 09/27/2025 Telephone [facility] [address] [facility] [place] [address] Marvin Santana MD HCN Clinical Concern/Question 09/23/2025 Refill [facility] [address] [place] [phone] RomeoIsha RN Squamous cell carcinoma of mandible 09/20/2025 Orders Only [facility] Plastic & Reconstructive Surgery [address] [place] [address] [address] Corrine Barriga, ASSISTANT FRONT OFFICE MANAGER 09/20/2025 Telephone [facility]astic & Re[facility] [place] [address] Marvin Santana MD 09/17/2025 1:00 PM EST Office Visit [facility] [address] [place] [address] Alvaro Adrian DMD, MD Squamous cell carcinoma of mandible (Primary Dx) 09/17/2025 9:15 AM EST Office Visit [facility] Plastic & Reconstructive Surgery [address] [place] [address] Marvin Santana MD 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) 09/17/2025 Travel 09/10/2025 Travel 09/06/2025 1:00 PM EDT Office Visit [facility] [address] [place] [address] Alvaro Adrian DMD, MD Squamous cell carcinoma of mandible (Primary Dx) 09/06/2025 Travel 09/03/2025 9:15 AM EDT Office Visit [facility] Plastic & Reconstructive Surgery [address] [place] [address] Marvin Santana MD 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) 09/03/2025 Travel 09/02/2025 Telephone [facility] [address] [phone] Isha Walters RN 09/02/2025 Orders Only [facility] [address] [phone] Isha Walters RN Squamous cell carcinoma of mandible (Primary Dx); Floor of mouth squamous cell carcinoma 09/02/2025 Travel 08/28/2025 4:34 PM EDT Anesthesia Event [facility] OPERATING ROOM [address] [place] [phone] Twin Hernandez MD Benson, Cathryn M, ASSISTANT FRONT OFFICE MANAGER 08/28/2025 2:30 PM EDT - 08/28/2025 3:45 PM EDT Surgery [facility] [address] [place] [phone] Marvin Santana MD Split thickness skin graft to right lower extremity flap donor site [97596 (CPT ) +1 more] 08/21/2025 Abstract [facility] Respiratory [address] [phone] Isha Walters RN 08/19/2025 8:17 AM EDT Anesthesia Event [facility]PERATING RO[facility] [address] [place] [address] Kenneth Benavides CRNA Ellis, Teresa W, ASSISTANT FRONT OFFICE MANAGER 08/19/2025 7:45 AM EDT - 08/19/2025 11:20 PM EDT Surgery [facility] OPERATING RO[facility] [address] [place] [address] Marvin Santana MD Left mandibular reconstruction with right free fibula, complex closure of oral wound, [91579 (CPT ) +4 more] 08/19/2025 5:29 AM EDT - 08/30/2025 3:53 PM EDT Hospital Encounter [facility] Inpatient [address] [place] [address] Marvin Santana MD McMaine, Travis B, DMD, MD Squamous cell carcinoma of mandible (Primary Dx); Floor of mouth squamous cell carcinoma; Wound of right lower extremity, initial encounter; Hypertension, unspecified type Discharge Disposition: Home or Self Care 08/19/2025 Travel 08/15/2025 Travel 08/15/2025 Telephone [facility] Res[facility] [address] [place] [phone] Hafsa Moore RN 08/13/2025 Travel from Last 3 Months Family History [...] any time in the past 12 m onths, were you homeless or living in a alf (including now)? No 08/21/2025 [facility] Utilities Answer Date Recorded In [...] Plastic & Reconstructive Surgery [address] [place] [phone] Marvin Santana MD [address] [place] [phone] Health Maintenance Due Date Last Done [...] 2017 Sigmoidoscopy 2017 [facility]-Colorectal Cancer Screening 2017 [id number] Vaccine (3 - Pfizer risk series) 09/11/2021 [...] this topic Medical Devices Implanted Type Area Dental Scheduler Device Identifier Shelf Expiration Date Model / Serial / Lot Plate Ti Pspc Matrixmand Ang Recon 7x23h/2mm Lt - Sna - [id number] Implanted:Qty: 1 on 08/19/2025 by Marvin Santana MD at [id number] 08/19/2026 [id number] / NA / Screw 2.0mm Matrixmandible Lock St 8mm - Sn/A - [id number] Implanted:Qty: 13 on 08/19/2025 by Marvin Santana MD at [id number] 08/19/2026 [id number] / N/A / Screw 2.0mm Matrixmandible Lock St 10mm - Sn/A - [id number] Implanted:Qty: 1 on 08/19/2025 by Marvin Santana MD at [id number] 08/19/2026 [id number] / N/A / Screw 2.0mm Matrixmandible Lock St 14mm - Sn/A - [id number] Implanted:Qty: 3 on 08/19/2025 by Marvin Santana MD at [id number] 08/19/2026 [id number] / N/A / Screw 2.0mm Matrixmandible Lock St 12mm - [id number] Implanted:Qty: 1 on 08/19/2025 by Marvin Santana MD at [id number] / / Procedures Procedure Name [...] OXYGEN THERAPY Routine 08/28/2025 8:00 PM EDT SC SPLIT GRFT TRUNK,ARM,LEG <100 SQCM 08/28/2025 4:20 PM EDT 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 Needs Dermatome, skin graft mesher, Artiss 4 cc and sprayer, xeroform, telfa, epinephrine/saline, tegaderm, 4-0 vicryl rapide, adaptic, silver dermanet SC SPLIT GRFT,TRUNK,ARM,LEG EA 100 SQCM 08/28/2025 4:20 [...] ANESTHESIA PLACEHOLDER Routine 08/19/2025 8:27 AM EDT SC AN ELECTIVE ENDOTRACHEAL AIRWAY Routine 08/19/2025 8:27 AM EDT CREATION, TRACHEOSTOMY 08/19/2025 8:05 AM EDT 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 Needs Microinstruments, micrscope available, doppler, handheld ligasure, bovie, bipolar, tournique, tps drill and sawt SC PART REMOVAL TONGUE,<1/2 08/19/2025 8:05 AM EDT 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 Needs Microinstruments, micrscope available, doppler, handheld ligasure, bovie, bipolar, tournique, tps drill and sawt SC REMOVAL NODES, NECK,CERV CMPLT 08/19/2025 8:05 AM EDT 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 Needs Microinstruments, micrscope available, doppler, handheld ligasure, bovie, bipolar, tournique, tps drill and sawt SC REMV MALIG JAW BONE RADICAL 08/19/2025 8:05 AM EDT 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 Needs Microinstruments, micrscope available, doppler, handheld ligasure, bovie, bipolar, tournique, tps drill and sawt SC RECONSTR MANDIBLE,BONE PLATE 08/19/2025 8:05 AM EDT 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 Needs Microinstruments, micrscope available, doppler, handheld ligasure, bovie, bipolar, tournique, tps drill and sawt SC LAYR CLOS WND REST BODY 12.6-20 CM 08/19/2025 8:05 AM EDT 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 Needs Microinstruments, micrscope available, doppler, handheld ligasure, bovie, bipolar, tournique, tps drill and sawt SC REPR,FACE,GENITAL,ARGUETA ND,FT+5 CMCM/< 08/19/2025 8:05 AM EDT 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 Needs Microinstruments, micrscope available, doppler, handheld ligasure, bovie, bipolar, tournique, tps drill and sawt SC RECMPL WND HEAD,FAC,HAND 2.6-7.5 CM 08/19/2025 8:05 AM EDT 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 Needs Microinstruments, micrscope available, doppler, handheld ligasure, bovie, bipolar, tournique, tps drill and sawt SC BONE-SKIN GRAFT, MICROVASCULAR 08/19/2025 8:05 AM EDT [...] LAB HEMATOLOGY METHOD 08/30/2025 3:18 AM EDT [facility] RBC Count 3.18(L) 4.60 - 6.10 10*6/uL LAB HEMATOLOGY METHOD 08/30/2025 3:18 AM EDT [facility] HGB 9.9(L) 13.7 - 17.5 g/dL LAB HEMATOLOGY METHOD 08/30/2025 3:18 AM EDT [facility] HCT 30.3(L) 40.0 - 51.0 % LAB HEMATOLOGY METHOD 08/30/2025 3:18 AM EDT [facility] Platelet Count 550(H) 155 - 369 10*3/uL LAB HEMATOLOGY METHOD 08/30/2025 3:18 AM EDT [facility] MCV 95 79 - 98 fL LAB HEMATOLOGY METHOD 08/30/2025 3:18 AM EDT [facility] MCH 31.1 26.0 - 32.0 pg LAB HEMATOLOGY METHOD 08/30/2025 3:18 AM EDT [facility] MCHC 32.7 30.7 - 35.5 g/dL LAB HEMATOLOGY METHOD 08/30/2025 3:18 AM EDT [facility] RDW 13.2 11.5 - 14.5 % LAB HEMATOLOGY METHOD 08/30/2025 3:18 AM EDT [facility] MPV 8.7(L) 8.8 - 12.5 fL LAB HEMATOLOGY METHOD 08/30/2025 3:18 AM EDT [facility] nRBC 0.0 <=0.0 per 100 WBCs LAB HEMATOLOGY METHOD 08/30/2025 3:18 AM EDT [facility] Blood Venous blood specimen / Unknown Venipuncture / Unknown 08/30/2025 3:00 AM EDT 08/30/2025 3:11 AM EDT us Sin Min Lynn Singletary DMD, MD LAB BLOOD ORDERABLES Melida l Result Performing Organization Address City/[facility] Co de Phone Number [facility] [address] [place] [address] * Phosphorus, Plasma (08/30/2025 3:00 AM EDT) Only the most recent of9 resultswithin the time period is included. Phosphorus, Plasma 4.2 2.5 - 4.5 mg/dL 08/30/2025 3:39 AM EDT [facility] Blood Venous blood specimen / Unknown Venipuncture / Unknown 08/30/2025 3:00 AM EDT 08/30/2025 3:11 AM EDT us Sin Min Lynn Singletary DMD, MD LAB BLOOD ORDERABLES Melida l Result Performing Organization Address City/[facility] Co de Phone Number [facility] [address] [place] [address] * Magnesium, Plasma (08/30/2025 3:00 AM EDT) Only the most recent of9 resultswithin the time period is included. Magnesium, Plasma 2.4 1.9 - 2.4 mg/dL 08/30/2025 3:39 AM EDT [facility] Blood Venous blood specimen / Unknown Venipuncture / Unknown 08/30/2025 3:00 AM EDT 08/30/2025 3:11 AM EDT us Sin Min Lynn Singletary DMD, MD LAB BLOOD ORDERABLES Melida l Result Performing Organization Address City/[facility]/ZIP Co de Phone Number [facility] [address] [place] [address] * (ABNORMAL) Basic Metabolic Panel, Plasma (08/30/2025 3:00 AM EDT) Only the most recent of9 resultswithin the time period is included. Glucose, Plasma 113(H) 74 - 99 mg/dL 08/30/2025 3:39 AM EDT [facility] BUN, Plasma 20 7 - 21 mg/dL 08/30/2025 3:39 AM EDT [facility] Creatinine, Plasma 0.68(L) 0.70 - 1.20 mg/dL 08/30/2025 3:39 AM EDT [facility] BUN/Creatinine Ratio 29 08/30/2025 3:39 AM EDT [facility] Sodium, Plasma 137 136 - 145 mmol/L 08/30/2025 3:39 AM EDT [facility] Potassium, Plasma 4.4 3.6 - 4.9 mmol/L 08/30/2025 3:39 AM EDT [facility] Chloride, Plasma 100 97 - 107 mmol/L 08/30/2025 3:39 AM EDT [facility] CO2, Plasma 28 22 - 29 mmol/L 08/30/2025 3:39 AM EDT [facility] Anion Gap 9 6 - 16 mmol/L 08/30/2025 3:39 AM EDT [facility] Total Calcium, Plasma 9.2 8.9 - 10.2 mg/dL 08/30/2025 3:39 AM EDT [facility] eGFRcr 111.8 mL/min/1.7 3m*2 08/30/2025 3:39 AM EDT [facility] Comment:Reported eGFRcr in m L/min/1.73m2 is based the CKD-EPI 2020 equation that does not use a race coefficient. Blood Venous blood specimen / Unknown Venipuncture / Unknown 08/30/2025 3:00 AM EDT 08/30/2025 3:11 AM EDT us Sin Min M Hayder [place] MD LAB BLOOD ORDERABLES Melida l Result [facility] [address] [place] [address] * (ABNORMAL) POCT glucose meter (08/28/2025 5:41 [...] Comment 08/28/2025 5:42 AM EDT [facility]ALTH[facility] Resident Care Assistant ID Ralph BarajasDrewLavonne Parker 08/28/2025 5:42 AM EDT HEALTHCARE LAB Device ID [id number] 08/28/2025 5:42 AM EDT [facility]ALTH[facility]ARE LAB Specimen Type POC Capillary 08/28/2025 5:42 AM EDT [facility]ALTH[facility] Blood Capillary blood specimen / Unknown 08/28/2025 5:41 AM EDT 08/28/2025 5:42 AM EDT Alvaro Adrian DMD, MD LAB POINT OF CA RE TEST DOCKED DEVICE UNSOLICITED RESULTS Final Result Performing Organization Address City/[facility]/ZIP Co de Phone Number HEALTHCARE LAB [address] [place] [address] * Type and Screen (08/28/2025 3:54 AM [...] ORD ERABLES Final Result BLOOD BANK [address] [place] [address], * Wound VAC Dressing Changes (Non-Instillation) (08/26/2025 [...] of the abdomen. COMPARISON: None. FINDINGS: Limited [id number] abdominal radiograph for the purpose of locating tube position. The tip of the feeding tube is within the proximal stomach. Procedure Note Patricio Trevino MD - 08/19/2025 CLINICAL INDICATION: DHT placement TECHNIQUE: Supine radiograph of the abdomen. COMPARISON: None. FINDINGS: Limited lafta-ik-epjo abdominal radiograph for the purpose of locatingtube [...] Detected Not Detected 08/21/2025 10:33 AM EDT [facility] Swab (Axilla and Groin) Non-blood Collection / Unknown 08/19/2025 8:19 PM EDT 08/19/2025 8:30 PM EDT Narrative [facility] - 08/21/2025 10:33 AM EDT This PCR assay was developed and its performance characteristics determined by [facility] as appropriate for clinical purposes. This assay has not been cleared or approved by the FDA, but is performed in a CLIA regulated laboratory that is qualified to perform high-complexity testing. Marvin Santana MD LAB MICROBIOLOGY - GENER AL ORDERABLES Final Result Performing Organization Address City/State/[facility] Co de Phone Number [facility] [address] [place] [address] * Multi Drug Resistance Test (08/19/2025 8:19 PM EDT) Culture No growth at day 1 08/21/2025 7:33 AM EDT [facility] Swab (Nares and Nini Rectal) Non-blood Collection / Unknown 08/19/2025 8:19 PM EDT 08/19/2025 8:30 PM EDT Narrative [facility] - 08/21/2025 7:33 AM EDT [...] MICROBIOLOGY - GENER AL ORDERABLES Final Result [facility] [address] [place] [address] * (ABNORMAL) Blood gas, arterial (08/19/2025 12:23 PM EDT) Only the most recent of2 resultswithin the time period is included. pH, Arterial 7.38 7.35 - 7.45 LAB HEMATOLOGY METHOD 08/19/2025 12:40 PM EDT [facility] pCO2, Arterial 42 32 - 45 mmHg LAB HEMATOLOGY METHOD 08/19/2025 12:40 PM EDT [facility] pO2, Arterial 107 83 - 108 mmHg LAB HEMATOLOGY METHOD 08/19/2025 12:40 PM EDT [facility] SO2, Measured, Arterial 99(H) 94 - 98 % LAB HEMATOLOGY METHOD 08/19/2025 12:40 PM EDT [facility] Base Excess, Arterial -0.8 -2.0 - 3.0 mmol/L LAB HEMATOLOGY METHOD 08/19/2025 12:40 PM EDT [facility] Bicarbonate, Calculated, Arterial 24 22 - 26 mmol/L LAB HEMATOLOGY METHOD 08/19/2025 12:40 PM EDT [facility] Hematocrit, Whole Blood 38.9(L) 40.0 - 51.0 % LAB HEMATOLOGY METHOD 08/19/2025 12:40 PM EDT [facility] Sodium, Whole Blood 138 136 - 145 mmol/L LAB HEMATOLOGY METHOD 08/19/2025 12:40 PM EDT [facility] Potassium, Whole Blood 3.7 3.6 - 4.9 mmol/L LAB HEMATOLOGY METHOD 08/19/2025 12:40 PM EDT [facility] Chloride, Whole Blood 105 97 - 107 mmol/L LAB HEMATOLOGY METHOD 08/19/2025 12:40 PM EDT [facility] Glucose, Whole Blood 146(H) 74 - 99 mg/dL LAB HEMATOLOGY METHOD 08/19/2025 12:40 PM EDT [facility] Ionized Calcium, Whole Blood 4.5(L) 4.6 - 5.1 mg/dL LAB HEMATOLOGY METHOD 08/19/2025 12:40 PM EDT [facility] Lactate, Arterial, Whole Blood 1.0 0.5 - 1.6 mmol/L LAB HEMATOLOGY METHOD 08/19/2025 12:40 PM EDT [facility] Blood Arterial blood specimen / Unknown 08/19/2025 12:23 PM EDT 08/19/2025 12:33 PM EDT 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] Kenneth Benavides [facility] LAB BLOOD ORDERABLES Final Result [facility] [address] [place] [address] * Surgical Pathology Exam (08/19/2025 10:32 AM EDT) Only the most recent of2 resultswithin the time period is included. Case Report Surgical Pathology Case: [id number] Authorizing Provider: Marvin Santana MD Collected: 08/19/2025 0917 Ordering Location: [facility] A OPERATING ROOM Received: 08/19/2025 1337 Pathologist: [...] fresh for permanent 08/28/2025 11:21 AM EDT [facility] Addendum This addendum is to document the provided clinical history. There is no change in the final diagnosis. Floor of mouth squamous cell carcinoma 08/28/2025 11:21 AM EDT [facility] Addendum electronically signed by Ellen [...] FOR CARCINOMA (0/20) 08/28/2025 11:21 AM EDT [facility] at 1949 EDT Comment:This is an [...] in part L. 08/28/2025 11:21 AM T [facility] Comment:This is an appended report. [...] pN Category: pN1 08/28/2025 11:21 AM EDT [facility] Clinical Information No Dx Found. 08/28/2025 11:21 AM EDT [facility] Comment:This is an appended report. [...] TUMOR IDENTIFIED. NO 08/28/2025 11:21 AM EDT [facility] Comment:Corrected result: Pr eviously reported [...] a robin-white, papillary, irregularly-shap ed 2.4 cm (anterior-separations scientist ior) by 1.9 (superior-inferi or) lesion that appears to abut the posterior and inferior margins. Gross photographs both pre ink and inked are provided. Ink code: Blue-anterior Red-superior Green-inferior Black-posterior Pershing-medial Uninked (with lesion)-lateral Specimen is serially sectioned [...] is received fresh, placed in formalin [facility] and consists of [...] placed in formalin labeled l t level 1B and consists of a 4.9 [...] of left brandyn mandibulectomy measuring 10.0 cm (anterior-separations scientist ior) x 4.6 cm (left-right) x 3.5 cm (superior-inferi or) with an attached ramus measuring 6.2 cm (superior-inferi or) x 0.6 cm (left-right) x 1.3 cm (anterior-separations scientist ior). The specimen is oriented by a short-short stitch on the lateral soft tissue, a long-short stitch on the anterior soft tissue and a long-long stitch on the medial soft tissue. The attached medial soft tissue measures 3.4 (left-right) by 8.4 (anterior-separations scientist ior) by 2.0 (superior-inferi or), and is [...] and the gingiva there is a 3.4 (anterior-separations scientist ior by 1.8 (superior-inferi or by 0.8 [...] no other interosseous lesions are grossly noted Epic Application Coordinator sections are submitted as follows: L1: Anterior mucosal and soft tissue margin L2: Lateral mucosal and soft tissue margin L3: Medial mucosal and soft tissue margin L4: Posterior mucosal and soft tissue margin L5: Inferior soft tissue margin L6: Mass 2 L7-L9: Mass 1, deepest bone invasion in L9 L10: Mandibular interosseous lesion L11: Softened bone adjacent to lesion L12: Epic Application Coordinator sample of lesion Cold Time: 0 Marvel Herrera MD M. LEFT LEVEL NECK 2, FRESH FOR PERMANENT Specimen is received fresh, placed in formalin labeled [facility] level neck 2 and consists of a [...] is received fresh, placed in formalin labeled [facility] level neck 3 a nd consists of [...] Marvel Herrera MD 08/28/2025 11:21 AM EDT [facility] Comment:This is an appended report. These results have been appended to a previously preliminary verified report. Note: A resident was involved in the service. I attest I examined the relevant preparations for the specimens and confirmed the diagnosis or interpretation. 08/28/2025 11:21 AM EDT [facility] Comment:This is an appended report. [...] PATHOLOGY ORDERABLE S Edited Result - Final [facility] [address] [place] [address] * PB ANESTHESIA NON-TIMED PROCEDURE PLACEHOLDER (08/19/2025 [...] well with no complications. Staffing Performed: ARLENE MARKER ASSEMBLER: Kenneth Benavides CRNA Caden Alas MD ANESTHESIA ORDERABLES Final Re sult * SC AN ELECTIVE ENDOTRACHEAL AIRWAY, PB ANESTHESIA PLACEHOLDER (08/19/2025 8:27 AM EDT) Narrative Kenneth Benavides CRNA - 08/19/2025 8:27 AM EDT Kenneth Benavides CRNA 08/19/2025 8:53 AM Airway Date/Time: 08/19/2025 8:27 AM Reason: elective Airway not difficult General Information and Staff Patient location during procedure: OR MARKER ASSEMBLER: Kenneth Benavides CRNA Performed: MARKER ASSEMBLER Patient Condition Indications for airway management: anesthesia [...] Most Recently Relevant to Health Maintenance Insurance [employer] Advance Directives Documents on File Type Date Recorded Patient Epic Application Coordinator Expl anation Power of Master Rigger 08/31/2025 1:32 PM Advance Directives and Livin g Will 08/31/2025 1:32 PM * Full Code (Latest Code Status on File) Date Activated Date Inactivated Comments 08/19/2025 7:28 AM 08/30/2025 5:53 PM Question Answer Comments I have reviewed the capacity from the link above and, if needed, have updated to appropriate status: Yes Care Teams Appetizer Packer Relationship Specialty Start Date End Date Christina Arteaga APRN [address] [place] [phone] PCP - General 06/20/[address] [facility] [address] [place] [address] Referring Physician 06/24/25
--- OUTSIDE RECORDS SUMMARY | 2025-11-12 09:16 | XMS_ITS | Encounter Summary ---
Author Organization Healthcare Address [address] [place] [address] Care Team Providers Care Dry Box Tender Name Role Phone Christina Arteaga APRN Primary Care Provider [phone] Maxwell White DMD Unavailable [phone] Reason for Visit * Reason Onset Date Comments HCN Clinical Concern/Question 09/27/2025 Encounter Details Date Type Department Care Team (Late st Contact Info) Description 09/27/[address] [facility] Plastic & Reconstructive Surgery [address] [place] [address] Marvin Santana MD [address] [address] HCN Clinical Concern/Question Social History [...] in a assisted (including now)? No 08/21/2025 [facility] Utilities Answer Date Recorded In the past [...] aspirin, ibuprofen and acetaminophen. Best contact number: [phone] Optimal time of day to reach caller: ANYTIME Additional comments/information from caller: None Note: Please do not reply to this message. Follow-up communication and further actions as a result of this message need to be communicated with the patient directly, if the patient is not active onMyChart. If the patient is active on MyChart, they will receive notification of the communication/outcome via [employer]. documented in this encounter Plan of Treatment Upcoming Encounters Date Type Department Care Team (Late st Contact Info) Description 11/26/2025 10:45 AM EST Office Visit [facility] Plastic & Reconstructive Surgery [address] [place] [address] Marvin Santana MD [address] [phone] documented as of this encounter Visit Diagnoses Not on filedocumented in this encounter Additional Health Concerns Assessment Noted Time A fall risk assessment has been complete d for the patient 09/17/2025 8:59 AM EST A Body Mass Index follow-up plan has been documented for the patient 09/24/2025 1:07 PM EST documented as of this encounter Care Teams Dry Box Tender Relationship Specialty Start Date End Date Christina Arteaga APRN [address] [place] [address] PCP - General 06/20/25 Maxwell White, DMD [facility] [address] [place] [address] Referring Physician 06/24/25 documented as of this encounter
--- OUTSIDE RECORDS SUMMARY | 2025-11-12 09:16 | XMS_ITS | Encounter Summary ---
Author Organization Healthcare Address [address] [place] [address] Care Team Providers Care Inspector Wreath Name Role Phone Christina Arteaga APRN Primary Care Provider [phone] Maxwell White DMD Unavailable [phone] Encounter Details Date Type Department Care Team (Late st Contact Info) Description 09/20/[address] [facility] Plastic & Reconstructive Surgery [address] [place] [address] Marvin Santana MD [address] [address] Social History Tobacco Use Types [...] time in the past 12 m [facility], were you homeless or living in a nursing home (including now)? No 08/21/2025 [facility] [...] will need a refill on that? Pharmacy: [facility] please call Best contact number: [phone] Optimal time of day to reach caller: ANYTIME Additional comments/information from caller: Not Applicable Note: Please do not reply to this message. Follow-up communication and further actions as a result of this message need to be communicated with the patient directly, if the patient is not active onMyChart. If the patient is active on MyChart, they will receive notification of the communication/outcome via [employer]. documented in this encounter Plan of Treatment Upcoming Encounters Date Type Department Care Team (Late st Contact Info) Description 11/26/2025 10:45 AM EST Office Visit [facility] Plastic & Reconstructive Surgery [address] [place] [address] Marvin Santana MD [address] [address] documented as of this encounter Visit Diagnoses Not on filedocumented in this encounter Additional Health Concerns Assessment Noted Time A fall risk assessment has been complete d for the patient 09/17/2025 8:59 AM EST A Body Mass Index follow-up plan has been documented for the patient 09/24/2025 1:07 PM EST documented as of this encounter Care Teams Inspector Wreath Relationship Specialty Start Date End Date Christina Arteaga APRN [address] [place], [place] [id number] PCP - General 06/20/25 Maxwell White, DMD [facility] [address] [place] [address] Referring Physician 06/24/25 documented as of this encounter
[2025-11-12 09:27] LABS: Hematocrit 43.2 % (42.0-52.0); Hemoglobin 13.9 g/dL (14.1-18.0); Immature Granulocytes % 0.6 %; Mean Corpuscular HGB Conc 32.2 g/dL (31.8-35.4); Mean Corpuscular Hemoglobin 30.2 pg (27.0-31.2); Mean Corpuscular Volume 93.9 fl (80-94); Nucleated Red Blood Cells % 0 %; Platelet Count 171 K/mm3 (142-424); Red Blood Count 4.60 M/mm3 (4.60-6.20); Red Cell Distribution Width-SD 40.8 fL; White Blood Count 5.1 K/mm3 (4.8-10.8)
[2025-11-12 09:35] LABS: Albumin Level 4.9 g/dl (3.5-5.0); Chloride 98 mmol/L (98-107); Potassium 4.0 mmoL/L (3.5-5.1); Sodium 139 mmol/L (136-145)
[2025-11-12 09:37] LABS: Blood Urea Nitrogen 38 mg/dl (9-20); Creatinine Clearance Estimated 133 mL/min (50-200); Creatinine,Serum 0.80 mg/dl (0.66-1.25); Estimated Glomerular Filt Rate 102 ml/min (>60); GFR (African American) 123 ML/MIN (>60)
[2025-11-12 09:38] LABS: Alanine Aminotransferase 47 U/L (12-78); Albumin/Globulin Ratio 1.3 (1.1-1.8); Alkaline Phosphatase 54 U/L (38-126); Anion Gap 11.0 mEq/L (5-15); Aspartate Amino Transferase 43 U/L (17-59); Bilirubin,Total 0.2 mg/dl (0.2-1.3); Calcium 10.2 mg/dl (8.4-10.2); Carbon Dioxide 34 mmol/L (22.0-30.0); Globulin 3.9 g/dL (1.3-3.2); Glucose 70 mg/dl (74-100); Total Protein,Serum 8.8 g/dl (6.3-8.2)
[2025-11-12 10:15] VITALS: BP 138/64; PULSE 64; RESP 18; O2SAT 96
[2025-11-12] MEDS: MAGNESIUM SULFATE IV ×2 (10:15→12:55)
[2025-11-12] MEDS: [UNRECOGNIZED DRUG - OTHER] IV ×2 (10:15→12:55)
[2025-11-12] MEDS: POTASSIUM CHLORIDE IV ×2 (10:15→12:55)
[2025-11-12 10:39] LABS: RBC Morphology Normal; Total Cells Counted 100
[2025-11-12] MEDS: ONDANSETRON 4MG ODT 16 MG SL (11:21)
[2025-11-12] MEDS: APREPITANT 125MG/80MG TRIFOLD PACK 1 PACKET PO (11:21)
[2025-11-12] MEDS: DEXAMETHASONE 4MG TABLET 12 MG PO (11:23)
[2025-11-12 11:55] VITALS: BP 144/89; PULSE 56; RESP 18; O2SAT 96
[2025-11-12 12:55] VITALS: BP 142/76; PULSE 61; RESP 18; O2SAT 95
[2025-11-12 14:35] VITALS: BP 148/89; PULSE 66; RESP 18; O2SAT 98
== END 2025-11-12 23:59 | disposition home or self-care (01) ==
PROVIDERS: PCP Student in an Organized Health Care Education/Training Program; Visit Provider Internal Medicine Medical Oncology
DX: C02.2 Malignant neoplasm of ventral surface of tongue (principal); Z51.11 Encounter for antineoplastic chemotherapy
CPT/HCPCS: 80053; 85007; 85025; 85027; 96413; J3475; J3480; J7030; J7050; J8501; J8540; J9060; Q0162